=== PATIENT | female | born 1945 | race Caucasian/White ===

== ENCOUNTER → 2020-09-30 11:31 | Outpatient (BNVA) | payer OTHER, SELFPAY | PROVIDERS: PCP Internal Medicine Geriatric Medicine; Visit Provider Internal Medicine Cardiovascular Disease | DX: I63.9 Cerebral infarction, unspecified (principal); I25.10 Atherosclerotic heart disease of native coronary artery without angina pectoris | CPT/HCPCS: 99214; 93005 ==

== ENCOUNTER → 2020-10-13 07:35 | Outpatient (REF) | payer OTHER, SELFPAY ==
--- NOTE | ~2020-10-13 | NM_ITS ---
Lexiscan Myocardial perfusion study Indication: Coronary disease, abnormal EKG, assess for ischemia Technique: The patient was brought in for a Lexiscan perfusion study on 10/13/2020 and was injected 0.4 mg of Lexiscan intravenously. Within a minute of this injection 25 mCi of sestamibi was given intravenously. Images were obtained using the SPECT gamma camera interlaced with the gating device. Images were obtained in supine position. Resting perfusion study was performed on 10/14/2020. Patient was administered 25 mCi of sestamibi intravenously at rest. Images were then obtained in supine position. Total DLP 92mGy-cm. Images were processed with the software and compared side to side in short axis, horizontal long axis and vertical long axis views. Findings: Raw acquisition was reviewed. The stress perfusion study showed no significant perfusion abnormality. With CT attenuation correction, there is diminished uptake in the distal part of anterior wall, apex and adjacent part of inferior wall but this area appears normally perfused in the uncorrected acquisition and hence possibly artifactual. The gated study shows normal LV systolic function with calculated LVEF of 63%. LV cavity is normal in size. The gated study shows normal wall thickening and contraction of segments. Resting study shows no significant perfusion abnormality. CT attenuation corrected images are of poor quality and not interpretable. Gating at rest reveals normal wall motion with ejection fraction at 64%. The findings are consistent with no reversible or fixed perfusion abnormality. NM/NM darius perf SPECT rest & str Impression: 1. Myocardial perfusion imaging study shows normal myocardial perfusion. No evidence of any ischemia or infarction. 2. Gated LVEF is 65% during stress and 64% during rest. 3. Transient ischemic dilatation not present. EKG component of the test reported separately.
--- NOTE | 2020-10-13 07:40 | CA_ITS ---
Acquisition Time: 2020-10-13 07:57:23 Total Exercise Time: 00:02:00 Test Indications: Syncope Medications: ALBUTEROL ASA LEVOTHYROXINE METFORMIN OMEPRAZOLE Protocol: LEXISCAN Max HR: 110 BPM 74% of Pred: 147 BPM Max BP: 138/074 mmHG Max Work Load: 1.0 METS Pharmacological stress test using Lexiscan while sitting and kicking her feet. Pt tolerated well, denies any anginal sx. EKG with no arrhythmias, non-diagnostic for ischemia. Nuclear images to follow. Normotensive response to test. Test reviewed with Dr. Dao. Referred By: Shaquille Trivedi Overread By: Naina Madrigal NP
== END ==
LOC: HO.CARD 07:35
PROVIDERS: PCP Internal Medicine Geriatric Medicine; Visit Provider Internal Medicine Cardiovascular Disease
DX: I25.119 Atherosclerotic heart disease of native coronary artery with unspecified angina pectoris (principal)
CPT/HCPCS: 78452; 93017; A9500; J0280; J2785

== ENCOUNTER → 2020-11-04 13:33 | Outpatient (BNVA) | payer OTHER, SELFPAY | PROVIDERS: PCP Internal Medicine Geriatric Medicine; Referring Provider Internal Medicine Geriatric Medicine; Visit Provider Internal Medicine Cardiovascular Disease ==

== ENCOUNTER → 2021-02-24 14:20 | Outpatient (BNVA) | payer OTHER, SELFPAY | PROVIDERS: PCP Internal Medicine Geriatric Medicine; Referring Provider Internal Medicine Geriatric Medicine; Visit Provider Internal Medicine Cardiovascular Disease ==

== ENCOUNTER 2021-04-23 12:57 | Outpatient (REF) | payer MEDICARE, MEDICAID, SELFPAY ==
--- NOTE | ~2021-04-23 | US_ITS ---
EXAMINATION: US RETROPERITONEAL LIMITED (RENAL ONLY) CLINICAL INFORMATION: Personal history of urinary calculi. COMPARISON: None TECHNIQUE: Real-time imaging of the kidneys. FINDINGS: RIGHT KIDNEY: 11.6 x 4.2 x 5.5 cm (SAG x AP x TRV). The kidney is normal in size, contour, and echogenicity. Renal cortical thickness is normal. No calculi or focal parenchymal lesions. No hydronephrosis. LEFT KIDNEY: 9.1 x 5.1 x 4.5 cm (SAG x AP x TRV). The kidney is normal in size, contour, and echogenicity. Renal cortical thickness is within normal limits. 6 mm nonobstructing mid pole calculus. No hydronephrosis. US/US renal BI IMPRESSION: 6 mm nonobstructing left renal calculus without hydronephrosis. No right-sided renal calculi.
== END 2021-04-23 12:58 | disposition home or self-care (01) ==
LOC: HO.HMGCX 12:57
PROVIDERS: PCP Internal Medicine Geriatric Medicine; Visit Provider Internal Medicine Geriatric Medicine
DX: M54.50 Low back pain, unspecified (principal); Z87.442 Personal history of urinary calculi
CPT/HCPCS: 76775

== ENCOUNTER → 2021-09-06 09:24 | Outpatient (REF) | payer MEDICARE, MEDICAID, SELFPAY ==
--- NOTE | 2021-09-06 09:32 | CA_ITS ---
Transthoracic Echocardiogram Patient (Last, First, Middle): Celeste Abad, Gender: Female Date of : 1945 Age: 75 Procedure Date: 09/06/2021 Procedure Type: Transthoracic Echocardiogram Location: OP Height: 160.02 cm Weight: 76.2 kg BSA: 1.80 m2 Heart Rate: bpm BP: 135 / 80 mmHg Car Lot Attendant: VH/OT Referring MD: Mauricio Stockton MD Symptoms: CVA Study Quality: Fair ECG Rhythm: Sinus Conclusions: - The left ventricular systolic function is normal. The visually estimated ejection fraction is between 55-60%. - There is mild mitral valve regurgitation. Findings Left Ventricle Normal left ventricular cavity size. There is normal left ventricular wall thickness. The left ventricular systolic function is normal. The visually estimated ejection fraction is between 55-60%. There is no evidence of regional wall motion abnormalities. Diastolic function is normal for age. Right Ventricle Normal right ventricular cavity size and systolic function. Atria Both atria are normal in size. Aortic Valve There is a normal trileaflet aortic valve. There is no aortic valve stenosis. There is no aortic valve regurgitation. Mitral Valve There is mild anterior mitral leaflet thickening. There is mild mitral annular calcification. There is mild mitral valve regurgitation. There is no mitral valve stenosis. Pulmonic Valve The pulmonic valve is likely normal. Tricuspid Valve There is trace tricuspid valve regurgitation. The pulmonary artery systolic pressure is normal. Great Vessels The aortic annulus, sinuses of valsalva, and asc aorta are normal in size. Venous The inferior vena cava is normal in size and collapses greater than 50% with inspiration. Pericardium/Pleural There is no evidence of pericardial effusion. Prior Study Comparison No prior study available for comparison. Recommendations, Care & Conclusions No obvious valvular pathology seen on this study. Measurements 2D Linear Measurements IVSd: 0.95 0.6-0.9/0.6-1.0 cm LVIDd: 3.93 3.9-5.3/4.2-5.9 cm LVIDd Index: 2.18 2.4-3.2/2.2-3.1 cm/m2 LVIDs: 2.78 2.0-3.6 cm LVPWd: 0.85 0.7-1.1 cm LA Diam: 3.00 2.7-3.8/3.0-4.0 cm LAIDs Index: 1.67 1.5-2.3 cm/m2 LV Mass: 132.63 67-162/88-224 g LV Mass Index: 73.69 43-95/49-115 g/m2 LVOT Diam: 1.90 3.0+(-)1.3 cm Mitral Valve MV Pk E: 0.82 MV PK A: 1.17 MV Decel Time: 213.00 E/A: 0.70 E'Lateral: 8.16 E'Medial: 5.11 E/E' Med: 16.10 E/E' Lat: 10.10 PHT: 62.00 MVA PHT: 3.55 Decel Haakon: 3.86 Aortic Valve AoV Pk Thomas: 1.40 AoV Mn Thomas: 0.90 AoV VTI: 0.30 AoV Pk Grad: 8.00 Aov Mn Grad: 4.00 GIOVANNI Cont.VTI: 1.92 LVOT LVOT Pk Thomas: 0.97 LVOT Mn Thomas: 0.62 LVOT VTI: 0.20 LVOT Pk Grad: 4.00 LVOT Mn Grad: 2.00 LVOT Diam: 1.90 LVOT Area: 2.84 Diastolic Function MV Pk E: 0.82 MV Pk A: 1.17 E/A: 0.70 E'Medial: 5.11 E/E' Med: 16.10 E' Laterial: 8.16 E/E' Lat: 10.10 Tricuspid Valve TR Pk Thomas: 2.22 TR Pk Grad: 20.00 RA Press: 3.00 RVSP: 23.00 Great Vessels Aorta Ao Annulus: 3.04 1.4-2.6 cm Ao Asc: 2.90 2.1-3.4 cm Pulmonary Valve PV Pk Thomas: 0.80 Peak PV Grad: 3.00 Updated in Other Vendor System with Status of Final Butch Patel MD electronically signed on 09/06/2021 12:21:39 PM with status of Final
--- NOTE | 2021-09-06 09:33 | HM_ITS ---
REQUESTING PROVIDER: Dr. Mauricio Mai REASON FOR TEST: Cerebral infarction. INTERPRETATION: Patient was hooked up to cardiac event monitor from 09/06/2021, to 10/06/2021, for a total period of 30 days. FINDINGS: Baseline rhythm was normal sinus rhythm with a heart rate ranging from 65 beats per minute to 111 beats per minute. Rare isolated PVCs were noted. No episodes of atrial fibrillation were noted. The patient did not report any symptoms. CONCLUSION: Cardiac event monitor is remarkable for: 1. Baseline normal sinus rhythm with rare PVCs. 2. No episodes of atrial fibrillation. 3. No patient reported events. Niles Dao MD NRS/MODL / [phone]
== END ==
LOC: HO.CARD 09:24
PROVIDERS: PCP Internal Medicine Geriatric Medicine; Visit Provider Internal Medicine
DX: I63.9 Cerebral infarction, unspecified (principal)
CPT/HCPCS: 93270; 93306

== ENCOUNTER → 2021-09-09 12:45 | Outpatient (BNVA) | payer MEDICARE, MEDICAID, SELFPAY | PROVIDERS: PCP Internal Medicine Geriatric Medicine; Referring Provider Internal Medicine Geriatric Medicine; Visit Provider Internal Medicine Cardiovascular Disease | DX: I25.10 Atherosclerotic heart disease of native coronary artery without angina pectoris (principal); I10 Essential (primary) hypertension | CPT/HCPCS: 93005; 99212 ==

== ENCOUNTER 2022-02-24 12:15 | Outpatient (REF) | payer MEDICARE, MEDICAID, SELFPAY ==
--- NOTE | ~2022-02-24 | XR_ITS ---
EXAMINATION: XR HIP, LEFT CLINICAL INFORMATION: Pain left hip. COMPARISON: Radiographs left hip 11/14/2017 TECHNIQUE: AP and frog-lateral projections of the left hip. FINDINGS: No fracture, dislocation, or destructive process. No interval hip joint narrowing or erosive change or chondrocalcinosis. There is a pessary ring overlying the lower pubis. XR/XR hip LT min 2V IMPRESSION: Unremarkable left hip.
--- NOTE | ~2022-02-24 | XR_ITS ---
EXAMINATION: XR RIBS, BILATERAL CLINICAL INFORMATION: Pleurodynia, pain throughout chest/ribs, radiating lower. COMPARISON: None TECHNIQUE: Frontal view chest and 3 views of the ribs are obtained for a total of 4 views. FINDINGS: There is no visible rib fracture or rib destructive process. There is no pneumothorax or pleural reaction. No airspace consolidation or effusion. Some fine linear scarring is again noted at both bases. The heart is normal in size. The costophrenic sulci are clear. There is a retrocardiac hiatal hernia, approximately 7 cm in size. The hilar contours are unremarkable. No free air beneath the diaphragms. Surgical clips right upper quadrant abdomen likely from prior cholecystectomy. XR/XR ribs BI min 4V w CXR1V IMPRESSION: -No visible rib fracture or rib destructive process. -No acute intrathoracic disease. No infiltrate or effusion. -Hiatal hernia.
== END 2022-02-24 12:16 | disposition home or self-care (01) ==
LOC: HO.XRAY 12:15
PROVIDERS: PCP Internal Medicine Geriatric Medicine; Visit Provider Internal Medicine Geriatric Medicine
DX: M25.552 Pain in left hip (principal); R07.81 Pleurodynia
CPT/HCPCS: 71111; 73502

== ENCOUNTER → 2022-03-16 13:18 | Outpatient (BNVA) | payer MEDICARE, MEDICAID, SELFPAY | PROVIDERS: PCP Internal Medicine Geriatric Medicine; Referring Provider Internal Medicine Geriatric Medicine; Visit Provider Internal Medicine Cardiovascular Disease | DX: I25.10 Atherosclerotic heart disease of native coronary artery without angina pectoris (principal); I10 Essential (primary) hypertension | CPT/HCPCS: 93005; 99212 ==

== ENCOUNTER → 2022-03-23 09:12 | Outpatient (REF) | payer MEDICARE, MEDICAID, SELFPAY ==
--- NOTE | ~2022-03-23 | NM_ITS ---
Lexiscan Myocardial perfusion study Indication: Chest pain, assess for coronary disease and ischemia Technique: The patient was brought in for a Lexiscan perfusion study on 03/22/2022 and was injected 0.4 mg of Lexiscan intravenously. Within a minute of this injection 25 mCi of sestamibi was given intravenously. Images were obtained using the SPECT gamma camera interlaced with the gating device. Images were obtained in supine position. Resting perfusion study was performed on 03/24/2022. Patient was administered 25 mCi of sestamibi intravenously at rest. Images were then obtained in supine position. Total DLP 89mGy-cm. Images were processed with the software and compared side to side in short axis, horizontal long axis and vertical long axis views. Findings: Raw acquisition reviewed. There is adjacent subdiaphragmatic tracer uptake near the inferior wall The stress perfusion study showed diminished tracer uptake in the basal to mid inferior septum and adjacent inferior wall. No significant change with CT attenuation correction. The gated study shows normal LV systolic function with calculated LVEF of >70%. LV cavity is normal in size. The gated study shows normal wall thickening and contraction of segments. Resting study shows diminished tracer uptake in the basal to mid septum. Slight improvement compared to stress acquisition. With CT attenuation correction, inferior wall assessment is slightly suboptimal. Gating at rest reveals normal wall motion with ejection fraction at 71%. The findings are consistent with mild reversible perfusion defect in the basal to mid inferior wall. In the inferoseptal portion appears more fixed. NM/NM darius perf SPECT rest & str Impression: 1. Myocardial perfusion imaging study shows fixed defect in the basal to mid inferior septum that could indicate prior infarct. Basal to mid inferior wall with some reversibility and could indicate ischemia. Unable to exclude diaphragmatic etiology due to image quality. 2. Gated LVEF is > 70% during stress and rest. 3. Transient ischemic dilatation not present. EKG component of the test reported separately.
--- NOTE | 2022-03-23 09:19 | CA_ITS ---
Acquisition Time: 2022-03-23 09:56:39 Total Exercise Time: 00:02:00 Test Indications: Chest Pain, SOB Medications: Protocol: LEXISCAN Max HR: 100 BPM 68% of Pred: 145 BPM Max BP: 118/062 mmHG Max Work Load: 1.0 METS Pharmacological stress test with Lexiscan injection, while sitting and kicking her legs, without anginal symptoms, without arrythmia, with normotensive response to injection, with nondiagnostic EKG for ischemia. In recovery, she was treated with Aminophylline 75mg IVP to reverse Lexiscan. Nuclear images pending. test reviewed with Dr Dao Referred By: Shaquille Trivedi Overread By: GYPSY MARSH
== END ==
LOC: HO.CARD 09:12
PROVIDERS: Visit Provider Internal Medicine Cardiovascular Disease
DX: I25.10 Atherosclerotic heart disease of native coronary artery without angina pectoris (principal)
CPT/HCPCS: 78452; 93017; A9500; J0280; J2785

== ENCOUNTER 2022-04-04 09:36 | Outpatient (REF) | payer MEDICARE, MEDICAID, SELFPAY ==
[2022-04-04 10:12] LABS: Hematocrit 41.9 % (37.0-47.0); Hemoglobin 13.9 g/dl (12.0-16.0); Mean Corpuscular HGB Conc 33.2 g/dl (31.0-35.0); Mean Corpuscular Hemoglobin 29.6 pg (27.0-33.0); Mean Corpuscular Volume 89.3 fL (80.0-98.0); Mean Platelet Volume 10.6 fL (9.4-12.3); Platelet Count 306 X10*3/uL (160-400); Red Blood Count 4.69 X10*6/uL (4.20-5.50); Red Cell Distribution Width 15.4 % (11.0-16.0); White Blood Count 7.8 X10*3/uL (4.8-10.8)
[2022-04-04 10:13] LABS: Prothrombin Time 10.9 SEC (10.0-13.1)
[2022-04-04 10:36] LABS: Anion Gap 17 (12-20); Blood Urea Nitrogen 20 mg/dL (9-16); Calcium 9.7 mg/dL (8.4-10.2); Carbon Dioxide 23 mmol/L (22-29); Chloride 104 mmol/L (96-108); Estimated Glomerular Filt Rate > 60; Glucose Random 116 mg/dL (60-115); Potassium 4.5 mmol/L (3.3-5.1); Sodium 139 mmol/L (135-145)
== END 2022-04-04 09:37 | disposition home or self-care (01) ==
LOC: HO.LAB 09:36
PROVIDERS: PCP Internal Medicine Geriatric Medicine; Visit Provider Internal Medicine Cardiovascular Disease
DX: R94.39 Abnormal result of other cardiovascular function study (principal)
CPT/HCPCS: 36415; 80048; 85027; 85610

== ENCOUNTER 2022-05-04 14:53 | Outpatient (REF) | payer MEDICARE, MEDICAID, SELFPAY ==
[2022-05-04 15:47] LABS: Hemoglobin 14.8 g/dl (12.0-16.0); Mean Corpuscular HGB Conc 33.6 g/dl (31.0-35.0); Mean Corpuscular Hemoglobin 30.3 pg (27.0-33.0); Mean Platelet Volume 10.4 fL (9.4-12.3); Platelet Count 350 X10*3/uL (160-400); Red Blood Count 4.89 X10*6/uL (4.20-5.50); Red Cell Distribution Width 14.7 % (11.0-16.0); White Blood Count 10.7 X10*3/uL (4.8-10.8)
[2022-05-04 16:12] LABS: Anion Gap 17 (12-20); Blood Urea Nitrogen 16 mg/dL (9-16); Calcium 10.2 mg/dL (8.4-10.2); Carbon Dioxide 23 mmol/L (22-29); Chloride 105 mmol/L (96-108); Estimated Glomerular Filt Rate > 60; Glucose Random 104 mg/dL (60-115); Potassium 4.5 mmol/L (3.3-5.1); Sodium 140 mmol/L (135-145)
== END 2022-05-04 14:54 | disposition home or self-care (01) ==
LOC: HO.LAB 14:53
PROVIDERS: PCP Internal Medicine Geriatric Medicine; Visit Provider Internal Medicine Cardiovascular Disease
DX: R07.9 Chest pain, unspecified (principal); R94.39 Abnormal result of other cardiovascular function study; I10 Essential (primary) hypertension
CPT/HCPCS: 36415; 80048; 85027; 85610; 99212

== ENCOUNTER → 2022-06-16 13:13 | Outpatient (BNVA) | payer MEDICARE, MEDICAID, SELFPAY | PROVIDERS: PCP Internal Medicine Geriatric Medicine; Referring Provider Internal Medicine Geriatric Medicine; Visit Provider Nurse Practitioner Family | DX: I25.10 Atherosclerotic heart disease of native coronary artery without angina pectoris (principal); I10 Essential (primary) hypertension; Z98.890 Other specified postprocedural states | CPT/HCPCS: 99212 ==

== ENCOUNTER → 2022-09-07 12:30 | Outpatient (BNVA) | payer MEDICARE, MEDICAID, SELFPAY | PROVIDERS: PCP Internal Medicine Geriatric Medicine; Visit Provider Internal Medicine Cardiovascular Disease | DX: I20.8 Other forms of angina pectoris (principal); I10 Essential (primary) hypertension | CPT/HCPCS: 99212 ==

== ENCOUNTER 2022-09-29 12:37 | Outpatient (REF) | payer MEDICARE, MEDICAID, SELFPAY ==
--- NOTE | ~2022-09-29 | MM_ITS ---
EXAMINATION: BONE DENSITOMETRY CLINICAL INDICATION: Menopausal osteoporosis. COMPARISON: None (current study represents initial baseline exam). TECHNIQUE: Using a [employer] DXA System (software version: 13.1) manufactured by [employer], dual-energy x-ray absorptiometry was performed of the lumbar spine and left hip. The images are of good technical quality. Summary results are attached. FINDINGS: AP SPINE L1-L4: BMD 0.785 g/cm2, Z-score -1.4, T-score -3.3, osteoporosis. LEFT FEMUR, NECK: BMD 0.573 g/cm2, Z-score -1.3, T-score -3.3, osteoporosis. LEFT FEMUR, TOTAL: BMD 0.639 g/cm2, Z-score -1.1, T-score -2.9, osteoporosis. IDENTIFIED RISK FACTORS: Early menopause, anticonvulsant, height loss, history of fracture (adult), osteoporosis, recurrent falls, secondary osteoporosis. HISTORY OF FRACTURE: Shoulder. MEDICATIONS: Calcium, vitamin D. MM/XR DEXA axial skeleton IMPRESSION: 1. DIAGNOSIS: Osteoporosis based on the lowest T-score value of -3.3 in the lumbar spine and femoral neck applying World Health Organization criteria. 2. 10-YEAR FRACTURE RISK PREDICTION, FRAX: According to the guidelines, FRAX calculation should only be performed on patients in the osteopenia bone density category. Therefore, FRAX was not performed on this patient. 3. Treatment Recommendations: NOF guidelines recommend consideration for treatment in postmenopausal women and men age 50 and older presenting with the following: -A hip or vertebral (clinical or morphometric) fracture. -T-score less than or equal to -2.5 at the femoral neck or spine after appropriate evaluation to exclude secondary causes. -Low bone mass at the hip or spine and a 10-year fracture probability by FRAX of greater than or equal to 3% for hip fracture or greater than or equal to 20% for major osteoporotic fracture based on the [place] adapted WHO algorithm. 4. Other Recommendations: All treatment decisions require clinical judgment and consideration of individual patient factors, including patient preferences, comorbidities, previous drug use, risk factors not captured in the FRAX model (e.g. frailty, falls, vitamin D deficiency, increased bone turnover, interval significant decline in bone density) and possible under or overestimation of fracture risk by FRAX. Additional medical evaluation for secondary cause of low bone mineral density may be appropriate. FUTURE SCAN RECOMMENDATION: People with diagnosed cases of osteoporosis or at high risk for fracture should have regular bone mineral density tests. For patients eligible for Medicare, routine testing is allowed once every 2 years. The testing frequency can be increased to one year for patients who have rapidly progressing disease, those who are receiving or discontinuing medical therapy to restore bone mass, or have additional risk factors.
== END 2022-09-29 12:38 | disposition home or self-care (01) ==
LOC: HO.MAMMO 12:37
PROVIDERS: Visit Provider Internal Medicine Geriatric Medicine
DX: M81.0 Age-related osteoporosis without current pathological fracture (principal); N95.1 Menopausal and female climacteric states
CPT/HCPCS: 77080

== ENCOUNTER 2022-10-27 13:00 | Outpatient (REF) | payer MEDICARE, MEDICAID, SELFPAY ==
--- NOTE | ~2022-10-27 | MR_ITS ---
EXAMINATION: MR BRAIN WITHOUT CONTRAST CLINICAL INFORMATION: Numbness, seizure. Rule out new CVA. COMPARISON: Head CT 03/18/2017. TECHNIQUE: Multiplanar, multisequence imaging of the brain was performed without intravenous contrast. FINDINGS: There is no intracranial hemorrhage, acute infarction, mass effect, or extra-axial collection. There is chronic cortical and subcortical infarction within the right frontal lobe extending into the insula and gangliocapsular structures with additional infarct is also seen in the left frontal and parietal lobe as well as significant lacunar infarcts within the bilateral left more than right cerebellar hemispheres. Chronic lacunar infarcts are seen throughout the basal ganglia and thalami bilaterally. Moderate patchy and partly confluent T2/FLAIR hyperintensity is seen within the cerebral white matter, typical of chronic microangiopathy. There is moderate degree of diffuse brain parenchymal volume loss with commensurate prominence of ventricles and sulci. The hippocampi appear fairly symmetric. The left vertebral artery flow void appears patent. The remaining major intracranial arterial flow voids are patent. Right vertebral artery flow void is not seen which could be related to hypoplasia. There are bilateral lens replacements. The extracranial structures are within normal limits. MR/MR head/brain wo con IMPRESSION: 1. No acute infarct, mass lesion, intracranial hemorrhage, or evidence of hydrocephalus. 2. Chronic infarcts in the right frontal lobe, left frontal and parietal lobes, and bilateral cerebellar hemispheres. Chronic lacunar infarcts seen in the basal ganglia and thalami. Background changes of moderate chronic microangiopathy and diffuse brain parenchymal volume loss.
== END 2022-10-27 13:01 | disposition home or self-care (01) ==
LOC: HO.MRI 13:00
PROVIDERS: PCP Internal Medicine Geriatric Medicine; Visit Provider Psychiatry & Neurology Neurology
DX: R56.9 Unspecified convulsions (principal); R20.2 Paresthesia of skin
CPT/HCPCS: 70551

== ENCOUNTER 2022-11-19 08:20 | Inpatient (IN) | payer OTHER, MEDICAID, SELFPAY ==
[2022-11-19] VITALS (15 sets, daily range): BP systolic 106–139; BP diastolic 45–65; PULSE 82–101; RESP 16–20; TEMP 36.6–37.6; O2SAT 92–98; BMI 25.0
--- NOTE | ~2022-11-19 | US_ITS ---
EXAMINATION: Ultrasound abdomen Doppler for mesenteric arteries. CLINICAL INFORMATION: Mesenteric ischemia, postprandial abdominal pain. COMPARISON: CT abdomen and pelvis 11/19/2022. TECHNIQUE: Doppler evaluation with color and spectral analysis performed of the visceral arteries. FINDINGS: Aorta: Proximal to SMA: 88 cm/s. Distal to SMA: 98 cm/s. Celiac artery: Supine: Inspiration: Not visible. Expiration: Not visible. Erect: Inspiration: 75 cm/s. Expiration: 106 cm/s. Superior mesenteric artery: Proximal: 278 cm/s. Mid: 168 cm/s. Distal: 125 cm/s. Inferior mesenteric artery: 239 cm/s. Splenic artery: Not visible. Hepatic artery: Not is visible. US/US SMA IMPRESSION: Exam limited by bowel gas. Elevated velocities in the superior mesenteric and inferior mesenteric arteries are nonspecific. By velocity arterial, these are consistent with hemodynamically significant stenoses. However, on the CT from 11/19/2022, mild atherosclerosis is seen involving the celiac, superior mesenteric, and inferior mesenteric arteries, but there is no evidence of hemodynamically significant stenosis.
--- NOTE | ~2022-11-19 | CT_ITS ---
EXAMINATION: CT ABDOMEN AND PELVIS WITH CONTRAST CLINICAL INFORMATION: Gastrointestinal bleed. Evaluate for any masses. COMPARISON: Renal ultrasound from 04/23/2021. TECHNIQUE: Multidetector volumetric images were obtained from the superior aspect of the liver through the pubic symphysis following administration 85 mL of Omnipaque 350 intravenous contrast. Sagittal and coronal reformatted images were obtained on the technologist's workstation. Oral contrast: No This CT examination was performed using dose optimization techniques as appropriate, variously including the following: *Automated exposure control *Adjustment of mA and/or kV according to patient size (this includes techniques or standardized protocols for targeted exams where dose is matched to indication/reason for exam; i.e. extremities or head) *Use of iterative reconstruction technique DLP: 432 mGy-cm FINDINGS: LUNG BASES: Scattered cystic lucencies in the visualized bases are consistent with changes of centrilobular emphysema. Scattered opacities of mild atelectasis in lower lobes. No pleural effusion. LIVER: The liver has normal size, shape, and attenuation. No evidence of liver mass. GALLBLADDER AND BILIARY TREE: Gallbladder is surgically absent. Common bile duct measures up to 0.9 cm diameter and there are no stones within the mildly dilated duct. The ductal dilatation is probably chronic. PANCREAS: Mildly atrophied. No edema, pancreatic ductal dilatation or mass. SPLEEN: Normal. ADRENAL GLANDS: Normal. KIDNEYS AND URETERS: Kidneys have lobulated contour, left more so than right, and findings include chronic atrophy of cortex of the posterior left upper pole. Also, there are somewhat wedge-shaped areas of chronic focal cortical atrophy of posterior aspect of the mid and upper pole of the right kidney. Punctate calyceal stone is present in the posterior left upper pole. 0.4 cm calyceal stone is present in the posterior left interpolar region. The ureters are unremarkable. No ureteral stones or hydroureteronephrosis. BLADDER: Normal. No calculi or wall thickening. BOWEL AND PERITONEUM: Large hiatal hernia. No dilated bowel loops. No focal bowel wall thickening. No masses are seen along the gastrointestinal tract. Multiple diverticula of the descending and sigmoid colon without evidence of diverticulitis. The rectum is unremarkable. There are no inflammatory changes in the perirectal or perianal soft tissues. ABDOMINAL WALL: No abdominal wall hernia, mass or fluid collection. VASCULATURE: Atherosclerosis of the abdominal aorta and iliac arteries without aneurysm. Inferior vena cava is normal. LYMPH NODES: No pathologic sized lymph nodes in the abdomen or pelvis. No inguinal lymphadenopathy. PELVIC VISCERA: Vaginal pessary in place. Uterus is unremarkable. No adnexal mass. No pelvic free fluid. MUSCULOSKELETAL: No acute or suspicious osseous abnormality. CT/CT abdomen pelvis w IV con IMPRESSION: * No specific source of gastrointestinal bleeding is identified. Diverticula of the descending and sigmoid colon without evidence of diverticulitis. * No evidence of abdominal or pelvic mass. No lymphadenopathy. * Common bile duct is mildly dilated, status post cholecystectomy. * Small stones of the left kidney. No hydronephrosis. There are regions of chronic cortical atrophy of each kidney, possibly sequela of remote pyelonephritis. No acute renal abnormality.
--- NOTE | 2022-11-19 09:00 | ED.GENADULT ---
HPI - General Adult General Chief complaint: Recheck/Abnormal Lab/Rx Stated complaint: sent by doctor, need blood transfusion Time Seen by Provider: 11/19/22 08:38 Source: patient and family Mode of arrival: ambulatory Limitations: no limitations History of Present Illness HPI narrative: 77-year-old female came in from home for generalized weakness, patient been having nonbloody watery diarrhea for the past 2 weeks, no abdominal pain, no nausea,no vomiting,no fever, no chills. Patient had a routine blood workup done by her PCP and was called today to come to the ED for blood transfusion because her hemoglobin is very low. No CP, no SOB, no exertional dyspnea. Related Data Home Medications Medication Instructions Recorded Confirmed albuterol sulfate 90 mcg/actuation inhalation 09/30/20 09/07/22 aerosol inhaler aspirin 81 mg tablet,delayed 81 mg PO DAILY 09/30/20 09/07/22 release (Adult Low Dose Aspirin) latanoprost 0.005 % eye drops 1 drp ophthalmic (eye) QPM 09/30/20 09/07/22 omeprazole 20 mg capsule,delayed 20 mg PO BID 09/30/20 09/07/22 release oxycodone-acetaminophen 5 mg-325 0.5 tab PO Q6H PRN 09/30/20 09/07/22 mg tablet acetaminophen 650 mg 1,300 mg PO Q12H 02/24/21 09/07/22 tablet,extended release (Tylenol 8 Hour) cholecalciferol (vitamin D3) 50 50 mcg PO DAILY 02/24/21 09/07/22 mcg (2,000 unit) capsule magnesium 250 mg tablet 250 mg PO DAILY 02/24/21 09/07/22 milk thistle 500 mg capsule 500 mg PO BID 02/24/21 09/07/22 zinc 50 mg tablet 50 mg PO DAILY 02/24/21 09/07/22 cyanocobalamin (vitamin B-12) 1,000 mcg PO DAILY 03/16/22 09/07/22 1,000 mcg tablet ferrous sulfate 325 mg (65 mg 325 mg PO DAILY 03/16/22 09/07/22 iron) tablet iodine (kelp) tab PO DAILY 03/16/22 09/07/22 levothyroxine 112 mcg tablet 112 mcg PO DAILY 03/16/22 09/07/22 metformin 500 mg tablet 500 mg PO DAILY 03/16/22 09/07/22 biotin 5 mg capsule 5 mg PO DAILY 05/04/22 09/07/22 levetiracetam 500 mg tablet 500 mg PO BID 05/04/22 09/07/22 melatonin 10 mg capsule 10 mg PO BEDTIME PRN 05/04/22 09/07/22 ticagrelor 90 mg tablet (Brilinta) 90 mg PO BID 05/04/22 09/07/22 atorvastatin 40 mg tablet 40 mg PO DAILY 06/16/22 09/07/22 mirabegron 50 mg tablet,extended 50 mg PO DAILY 06/16/22 09/07/22 release 24 hr (Myrbetriq) famotidine 40 mg tablet 40 mg PO BID 09/07/22 09/07/22 Previous Rx's Medication Instructions Recorded amlodipine 2.5 mg tablet 2.5 mg PO DAILY 90 days #90 tabs 09/02/22 Allergies Allergy/AdvReac Type Severity Reaction Status Date / Time atorvastatin [From LIPITOR] Allergy Unknown STOMACH Verified 11/19/22 08:24 ISSUES Review of Systems Review of Systems: All other systems are reviewed and are negative Constitutional: Reports as per HPI and Reports no additional constitutional complaints Eyes: Reports as per HPI and Reports no additional eye complaints Reports system reviewed and no additional complaints, except as documented Cardiovascular: Reports as per HPI and Reports no additional cardiovascular complaints Respiratory: Reports as per HPI and Reports no additional respiratory complaints Gastrointestinal: Reports as per HPI and Reports no additional gastrointestinal complaints Genitourinary: Reports no additional female genitourinary complaints Musculoskeletal: Reports no additional musculoskeletal complaints Skin/Breast: Reports system reviewed and no additional complaints, except as docu Psychiatric: Reports no additional psychiatric complaints Endocrine: Reports no additional endocrine complaints Hematologic/Lymphatic: Reports no additional hematologic/lymphatic complaints Allergic/Immunologic: Reports no additional allergic/immunologic complaints Reports system reviewed and no additional complaints, except as documented and Reports Abnormal speech present [facility] Past Medical History Surgical History History of adenoidectomy History of appendectomy History of cardiac cath History of section History of cholecystectomy Hx of hernia repair Hx of tonsillectomy Family History Family History Mother Cancer Father Heart attack Social History Social History Alcohol intake: never Patient Tobacco Use Status: Former Tobacco user Quit Date: 2003 Years Smoked: 30 +/- Advance Directives: No Physical Exam ED Vital Signs: Vital Signs - 24 hr 11/19/22 08:24 11/19/22 08:53 Temperature 98.2 F 98.1 F Pulse Rate 97 92 Respiratory Rate 18 18 Blood Pressure 127/54 L 130/65 Pulse Oximetry 97 92 Oxygen Delivery Method Room Air Room Air BMI result Body Mass Index 25.0 Vital signs have been reviewed as appeared to be correct. Blood pressure normal. Heart rate normal. Respiration rate normal. Temperature normal. Oxygen saturation normal. Appearance: Alert. Oriented X3. No acute distress. Head: Normal external exam. Normocephalic. Atraumatic. No Ash signs noted. No raccoon eyes noted Eyes: PERRLA. EOMI. Conjunctiva and sclera normal. Eyelids normal. ENT: TM's Normal. Pharynx normal. Uvula midline. Moist mucous membranes. No trismus noted. No drooling noted. No muffled voice noted. Neck: Normal inspection. Neck supple. FROM. No adenopathy. Thyroid Normal. No meningeal signs. No neck mass noted. CVS: Normal heart rate and rhythm. Heart sound normal. No murmurs noted. Pulses normal throughout. Respiratory: No respiratory distress. Painless inspiration. Breath sounds normal. No wheezes/rales/rhonchi noted. Chest nontender. No accessory muscle usage noted or decreased air movement noted. Abdomen: Soft and nontender. Bowel sounds normal in all 4 quadrants. No distention noted. No organomegaly noted. No visible injury noted. Back: No CVA tenderness. Full range of motion noted. Skin: Skin warm and dry. Normal skin color. Normal skin turgor. No rashes/lesions/lacerations noted. Extremities: No lower extremity edema. Extremities exhibit normal range of motion. Extremities nontender. Neuro: Oriented X 3. Cranial nerve exam: II-XII are grossly intact No motor deficit. No sensory deficit. Reflexes normal. Course Course Course Narrative: 77-year-old female came in with exertional dyspnea found to be anemic with GI bleeding will transfuse 2 units of blood and admit. UTI with sirs no septic shock are severe sepsis. Medications Administered Discontinued Medications Generic Name Dose Route Start Last Admin Trade Name Freq PRN Reason Stop Dose Admin Sodium Chloride 1,000 mls @ 999 mls/hr 11/19/22 08:58 11/19/22 11:03 Ns IV 11/19/22 09:58 Infused .Q1H1M ONE Infusion Medical Decision Making Differential Diagnosis Differential Diagnoses: The differential diagnosis associated with the presentation includes (Severe anemia, electrolyte abnormalities, UTI, sepsis) Admission/Observation Consideration of admission/observation: Escalation of care including admission/observation considered Consult Healthcare Provider Management of the patient was discussed with: Hospitalist Lab Data [facility] Lab Attestation statement: I reviewed the patient's lab results. 11/19/22 09:20 11/19/22 09:20 Labs: Lab Results 11/19/22 11/19/22 11/19/22 Range/Units 09:14 09:20 09:20 WBC 13.9 H (4.8-10.8) X10*3/uL RBC 3.39 L D (4.20-5.50) X10*6/uL Hgb 7.2 L D (12.0-16.0) g/dl Hct 24.6 L D (37.0-47.0) % MCV 72.6 L (80.0-98.0) fL MCH 21.2 L (27.0-33.0) pg MCHC 29.3 L (31.0-35.0) g/dl RDW 16.9 H (11.0-16.0) % Plt Count 418 H (160-400) X10*3/uL MPV 9.1 L (9.4-12.3) fL Immature Gran % (Auto) 0.4 (0.0-0.4) % Neut % (Auto) 83.3 H (45-73) % Lymph % (Auto) 8.9 L (20-40) % [place] % (Auto) 6.4 (2-11) % Eos % (Auto) 0.6 (0-4) % Baso % (Auto) 0.4 (0-2) % Lymph # (Auto) 1.2 (1.2-4.9) X10*3/uL [place] # (Auto) 0.9 (0.1-1.2) X10*3/uL Eos # (Auto) 0.1 (0.0-0.4) X10*3/uL Baso # (Auto) 0.1 (0.0-0.2) X10*3/uL Abs Immat Gran (auto) 0.05 H (0.00-0.03) X10*3/uL Absolute Neuts (auto) 11.6 H (2.0-8.3) x10*3/uL Absolute Nucleated RBC 0.000 (0.0-0.012) X10*3/uL Nucleated RBC % (auto) 0.0 (0.0-0.2) /100WBC Sodium 144 (135-145) mmol/L Potassium 4.0 (3.3-5.1) mmol/L Chloride 108 (96-108) mmol/L Carbon Dioxide 25 (22-29) mmol/L Anion Gap 15 (12-20) BUN 21 H (9-16) mg/dL Creatinine 0.76 (0.5-1.4) mg/dL Estim Creat Clear Calc 52.4 Estimated GFR > 60 Random Glucose 133 H (60-115) mg/dL Calcium 9.2 D (8.4-10.2) mg/dL Total Bilirubin 0.4 (0.0-1.0) mg/dL Direct Bilirubin 0.1 (0.0-0.5) mg/dL AST 16 (5-31) U/L ALT 15 (0-31) U/L Alkaline Phosphatase 117 (39-117) U/L Troponin I High Sens (<3.5-17.0) ng/L Total Protein 6.9 (6.5-8.0) g/dL Albumin 3.9 (3.5-5.0) g/dL Lipase 13 (8-78) U/L Urine Color Urine Appearance Urine pH (5.0-9.0) Ur Specific [place] (1.005-1.025) Urine Protein (Neg-Trace) mg/dL Urine Glucose (UA) (Negative) mg/dL Urine Ketones (Negative) mg/dL Urine Blood (Negative) Urine Nitrite (Negative) Ur Leukocyte Esterase (Negative) Urine RBC (0-2) /HPF Urine WBC (0-5) /HPF Ur Squamous Epith Cells (0-2) /HPF Urine Bacteria (None Seen) Hyaline Casts (0-2) /LPF Stool Occult Blood POSITIVE (NEGATIVE) 11/19/22 11/19/22 Range/Units 09:21 10:26 WBC (4.8-10.8) X10*3/uL RBC (4.20-5.50) X10*6/uL Hgb (12.0-16.0) g/dl Hct (37.0-47.0) % MCV (80.0-98.0) fL MCH (27.0-33.0) pg MCHC (31.0-35.0) g/dl RDW (11.0-16.0) % Plt Count (160-400) X10*3/uL MPV (9.4-12.3) fL Immature Gran % (Auto) (0.0-0.4) % Neut % (Auto) (45-73) % Lymph % (Auto) (20-40) % [place] % (Auto) (2-11) % Eos % (Auto) (0-4) % Baso % (Auto) (0-2) % Lymph # (Auto) (1.2-4.9) X10*3/uL [place] # (Auto) (0.1-1.2) X10*3/uL Eos # (Auto) (0.0-0.4) X10*3/uL Baso # (Auto) (0.0-0.2) X10*3/uL Abs Immat Gran (auto) (0.00-0.03) X10*3/uL Absolute Neuts (auto) (2.0-8.3) x10*3/uL Absolute Nucleated RBC (0.0-0.012) X10*3/uL Nucleated RBC % (auto) (0.0-0.2) /100WBC Sodium (135-145) mmol/L Potassium (3.3-5.1) mmol/L Chloride (96-108) mmol/L Carbon Dioxide (22-29) mmol/L Anion Gap (12-20) BUN (9-16) mg/dL Creatinine (0.5-1.4) mg/dL Estim Creat Clear Calc Estimated GFR Random Glucose (60-115) mg/dL Calcium (8.4-10.2) mg/dL Total Bilirubin (0.0-1.0) mg/dL Direct Bilirubin (0.0-0.5) mg/dL AST (5-31) U/L ALT (0-31) U/L Alkaline Phosphatase (39-117) U/L Troponin I High Sens < 2.7 (<3.5-17.0) ng/L Total Protein (6.5-8.0) g/dL Albumin (3.5-5.0) g/dL Lipase (8-78) U/L Urine Color Yellow Urine Appearance Cloudy Urine pH 7.0 (5.0-9.0) Ur Specific [place] 1.015 (1.005-1.025) Urine Protein Negative (Neg-Trace) mg/dL Urine Glucose (UA) Negative (Negative) mg/dL Urine Ketones Negative (Negative) mg/dL Urine Blood Negative (Negative) Urine Nitrite Positive H (Negative) Ur Leukocyte Esterase Moderate (2+) H (Negative) Urine RBC 0-2 (0-2) /HPF Urine WBC 21-50 H (0-5) /HPF Ur Squamous Epith Cells 0-2 (0-2) /HPF Urine Bacteria 4+ (None Seen) Hyaline Casts 0-2 (0-2) /LPF Stool Occult Blood (NEGATIVE) Discharge Plan Discharge Clinical Impression: Anemia, Acute UTI, Rectal bleed Patient Disposition: Admitted As Inpatient
--- NOTE | 2022-11-19 09:03 | PC.NURSE ---
Alert and oriented. Reports feeling fatigued and weak x 1 week. Isabelle went to pcp for routine labs and got a call this morning saying her h and h was low. rectal exam performed by provider. States that she will no do a blood transfusion. 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 states in the past a doctor told her that she was losing blood but is unsure from where. nsr on monitor. reports sob with exertion. some nausea yesterday but none now. skin warm and dry but pale. Reports dizziness with exertion along with chest pain with exertion.
[2022-11-19] MEDS: 0.9 % Sodium Chloride 1,000 ML 999 ML IV (09:22)
[2022-11-19 09:26] LABS: MANUAL DIFF FLAG NO
[2022-11-19 09:27] LABS: Basophils Absolute Auto 0.1 X10*3/uL (0.0-0.2); Basophils Percent Auto 0.4 % (0-2); Eosinophils Absolute Auto 0.1 X10*3/uL (0.0-0.4); Eosinophils Percent Auto 0.6 % (0-4); Hematocrit 24.6 % (37.0-47.0); Hemoglobin 7.2 g/dl (12.0-16.0); Imm Gran Abs Auto 0.05 X10*3/uL (0.00-0.03); Imm Gran Pct Auto 0.4 % (0.0-0.4); Lymphocytes Absolute Auto 1.2 X10*3/uL (1.2-4.9); Lymphocytes Percent Auto 8.9 % (20-40); Mean Corpuscular HGB Conc 29.3 g/dl (31.0-35.0); Mean Corpuscular Hemoglobin 21.2 pg (27.0-33.0); Mean Corpuscular Volume 72.6 fL (80.0-98.0); Mean Platelet Volume 9.1 fL (9.4-12.3); Monocytes Absolute Auto 0.9 X10*3/uL (0.1-1.2); Monocytes Percent Auto 6.4 % (2-11); Neutrophils Absolute Auto 11.6 x10*3/uL (2.0-8.3); Neutrophils Percent Auto 83.3 % (45-73); Platelet Count 418 X10*3/uL (160-400); Red Blood Count 3.39 X10*6/uL (4.20-5.50); Red Cell Distribution Width 16.9 % (11.0-16.0); White Blood Count 13.9 X10*3/uL (4.8-10.8)
[2022-11-19 09:32] LABS: OBS Int Ctl Valid YES; OBS1 POSITIVE (NEGATIVE)
[2022-11-19 09:44] LABS: Alanine Aminotransferase 15 U/L (0-31); Albumin Level 3.9 g/dL (3.5-5.0); Alkaline Phosphatase 117 U/L (39-117); Anion Gap 15 (12-20); Aspartate Amino Transferase 16 U/L (5-31); Bilirubin Direct 0.1 mg/dL (0.0-0.5); Bilirubin Total 0.4 mg/dL (0.0-1.0); Blood Urea Nitrogen 21 mg/dL (9-16); Calcium 9.2 mg/dL (8.4-10.2); Carbon Dioxide 25 mmol/L (22-29); Chloride 108 mmol/L (96-108); Creatinine Clr Calc Pharmacy 52.4; Estimated Glomerular Filt Rate > 60; Glucose Random 133 mg/dL (60-115); Lipase 13 U/L (8-78); Sodium 144 mmol/L (135-145); Total Protein 6.9 g/dL (6.5-8.0)
[2022-11-19 09:51] LABS: Troponin-I High Sensitivity < 2.7 ng/L (<3.5-17.0)
[2022-11-19 10:33] LABS: Appearance Urine Cloudy; Color Urine Yellow; Glucose Urine UA Negative (Negative); Leukocyte Esterase Urine Moderate (2+) (Negative); Nitrite Urine Positive (Negative); Specific Gravity - Urine 1.015 (1.005-1.025); UMIC TRIGGER UACC YES; Urine Blood Negative (Negative); Urine Ketones Negative (Negative); Urine Protein Negative (Neg-Trace)
[2022-11-19 10:36] LABS: Bacteria Urine 4+ (None Seen); Hyaline Casts Urine 0-2 /LPF (0-2); RBC Urine 0-2 /HPF (0-2); Squamous Epithelial Cell Urine 0-2 /HPF (0-2); UACC Culture Trigger YES; WBC Urine 21-50 /HPF (0-5)
--- NOTE | 2022-11-19 11:58 | P.HPHOSP_ITS ---
History of Present Illness Date of Service: 11/19/22 Attending physician on admission: Roya Reis Chief Complaint: Generalized weakness Pt is a 77-year-old female with a PMH significant for?CAD with drug-eluting stents in proximal and mid LAD and proximal RCA, 3 MIs, 3 CVAs, multiple TIAs, seizure disorder, Arcos's esophagus, hypothyroidism, lfi-[id number] diabetes, and glaucoma who presents to the ED with?generalized weakness and after routine blood work by PCP showed very low hemoglobin. The patient has a complicated PMH and numerous chronic complaints, but patient states that she has been feeling worse than normal the past couple of weeks with generalized weakness and fatigue. Patient notes she has also experienced nonbloody diarrhea for the past 2 weeks with up to 510 episodes per day and occasional fecal incontinence. Patient experienced similar symptoms earlier in the year when she had diarrhea for around 1 month. Patient then switched to a gluten free diet which resolved diarrhea until 2 weeks ago. Patient reports chronic abdominal pain she attributes to a complicated . Experiences pain particularly postprandial and on her left side. Patient currently is not experiencing any abdominal pain or cramping. Patient also notes she has had a 30 lb unintentional weight loss within the past 6 months that she attributes to reduced p.o. intake. Patient states she is often incontinent of urine and has a pessary in place, but notes she has had some dysuria and has a long history of UTIs. Of note, patient is at high risk for bleeding as she is on both aspirin and ticagrelor. Patient is not currently experiencing nausea, vomiting, abdomi nal pain. No current chest pain, pressure, palpitations. Chronic shortness of breath. In the ED patient was afebrile and slightly hypotensive at 127/54. Labs were significant for leukocytosis of 13.9, microcytic anemia of H&H of 7.2/24.6. Electrolytes WNL. Troponin negative. Hepatic function baseline. Stool was positive for occult blood. UA positive for UTI. Pt was treated with 1 unit PRBC s, ceftriaxone, and IVF. Pt will be admitted to the hospital for further treatment and workup of anemia likely secondary to acute GI bleed and acute UTI. Review of Systems Review of Systems: Weakness, fatigue Nonbloody Diarrhea x2 weeks Dysuria Chronic shortness of breath Chronic postprandial abdominal pain Yes all other systems are reviewed and are negative PMFSH Family History Mother Cancer Father Heart attack Surgical History History of adenoidectomy History of appendectomy History of cardiac cath History of section History of cholecystectomy Hx of hernia repair Hx of tonsillectomy Social History Alcohol intake: never Patient Tobacco Use Status: Former Tobacco user Quit Date: 2003 Years Smoked: 30 +/- Advance Directives: No Meds Allergies Allergy/AdvReac Type Severity Reaction Status Date / Time atorvastatin [From LIPITOR] Allergy Unknown STOMACH Verified 11/19/22 08:24 ISSUES Active Medications: Current Medications Pharmacy Consult (Consult Rx Perform Med Rec) 1 each MISCELLANE ONCE PRN PRN Reason: Consult order Pharmacy Consult (Consult Rx Perform Med Rec) 1 each MISCELLANE ONCE PRN PRN Reason: Consult order Home Medications Medication Instructions Recorded Confirmed Last Taken Type albuterol sulfate 90 mcg/actuation 2 puff inhalation Q4H PRN 09/30/20 11/19/22 Unknown History aerosol inhaler Respiratory Distress aspirin 81 mg tablet,delayed 81 mg PO DAILY 09/30/20 11/19/22 11/18/22 History release (Adult Low Dose Aspirin) latanoprost 0.005 % eye drops 1 drp ophthalmic (eye) BEDTIME 09/30/20 11/19/22 11/18/22 History omeprazole 20 mg capsule,delayed 20 mg PO BID 09/30/20 11/19/22 11/18/22 History release oxycodone-acetaminophen 5 mg-325 1 tab PO BID PRN Pain (Scale Score 09/30/20 11/19/22 Unknown History mg tablet 7-10) acetaminophen 650 mg 1,300 mg PO Q8H PRN Pain 02/24/21 11/19/22 Unknown History tablet,extended release (Tylenol 8 Hour) cholecalciferol (vitamin D3) 50 50 mcg PO DAILY 02/24/21 11/19/22 11/18/22 History mcg (2,000 unit) capsule magnesium 250 mg tablet 500 mg PO DAILY 02/24/21 11/19/22 11/18/22 History milk thistle 500 mg capsule 500 mg PO BID 02/24/21 11/19/22 Unknown History zinc 50 mg tablet 50 mg PO DAILY 02/24/21 11/19/22 11/18/22 History cyanocobalamin (vitamin B-12) 1,000 mcg PO DAILY 03/16/22 11/19/22 11/18/22 History 1,000 mcg tablet levothyroxine 112 mcg tablet 112 mcg PO DAILY 03/16/22 11/19/22 11/18/22 History metformin 500 mg tablet 500 mg PO BID 03/16/22 11/19/22 11/18/22 History biotin 5 mg capsule 5 mg PO DAILY 05/04/22 11/19/22 11/18/22 History melatonin 10 mg capsule 10 mg PO BEDTIME 05/04/22 11/19/22 Unknown History ticagrelor 90 mg tablet (Brilinta) 90 mg PO BID 05/04/22 11/19/22 11/18/22 History atorvastatin 40 mg tablet 40 mg PO DAILY 06/16/22 11/19/22 11/18/22 History mirabegron 50 mg tablet,extended 50 mg PO DAILY 06/16/22 11/19/22 11/18/22 History release 24 hr (Myrbetriq) famotidine 40 mg tablet 40 mg PO BID 09/07/22 11/19/22 11/18/22 History ascorbic acid (vitamin C) 500 mg 500 mg PO DAILY 11/19/22 11/19/22 11/18/22 History tablet betamethasone valerate 0.1 % 1 appl topical DAILY 11/19/22 11/19/22 11/18/22 History topical cream levetiracetam 750 mg tablet 750 mg PO BID 11/19/22 11/19/22 11/18/22 History (Keppra) loperamide 2 mg tablet 2 mg PO QID PRN LOOSE STOOLS 11/19/22 11/19/22 Unknown History naloxone 4 mg/actuation nasal spray 4 mg intranasal Q2M PRN OPIOD 11/19/22 11/19/22 Unknown History OVERDOSE peg 400-propylene glycol (PF) 0.4 1 drp ophthalmic (eye) BID 11/19/22 11/19/22 11/18/22 History %-0.3 % eye drops in a dropperette (Systane (PF)) simethicone 125 mg chewable tablet 125 mg PO TID PRN GAS/BLOATING 11/19/22 06/0 09/08 Unknown History Physical Exam Vital Signs and Narrative: Vital Signs: Last Vital Signs Temp 98.1 F 11/19/22 08:53 Pulse 92 11/19/22 08:53 Resp 18 11/19/22 08:53 BP 130/65 11/19/22 08:53 Pulse Ox 92 11/19/22 08:53 O2 Del Method Room Air 11/19/22 08:53 BMI result Body Mass Index 25.0 Constitutional: Alert, in no acute distress. Mental Status: Oriented to person, place and time. Eyes: Pupils are equal, round, and reactive to light. Ear, Nose, and Throat: Oropharynx clear, mucous membranes moist. Ears and nose without deformities. Trachea midline. Respiratory: Clear to auscultation bilaterally. No wheezing, rales, or rhonchi. Cardiovascular: S1, S2 regular. No murmurs, rubs, or gallops. Gastrointestinal: Abdomen soft, non-tender, non-distended. Normal bowel sounds. Neurologic: Cranial nerves II-XII are grossly intact bilaterally. No focal neurological deficits. Moves all extremities spontaneously. Skin: No rashes or lesions noted. Musculoskeletal: No cyanosis or clubbing. Extremities: No edema. Psychiatric: Normal mood and affect. Results Labs 11/19/22 09:20 11/19/22 09:20 Labs: Laboratory Results - last 24 hr 11/19/22 11/19/22 11/19/22 09:14 09:20 09:20 MCV 72.6 L MCH 21.2 L MCHC 29.3 L RDW 16.9 H Plt Count 418 H MPV 9.1 L Immature Gran % (Auto) 0.4 Neut % (Auto) 83.3 H Lymph % (Auto) 8.9 L [place] % (Auto) 6.4 Eos % (Auto) 0.6 Baso % (Auto) 0.4 Lymph # (Auto) 1.2 [place] # (Auto) 0.9 Eos # (Auto) 0.1 Baso # (Auto) 0.1 Abs Immat Gran (auto) 0.05 H Absolute Neuts (auto) 11.6 H Absolute Nucleated RBC 0.000 Nucleated RBC % (auto) 0.0 Anion Gap 15 Estim Creat Clear Calc 52.4 Estimated GFR > 60 Random Glucose 133 H Calcium 9.2 D Total Bilirubin 0.4 Direct Bilirubin 0.1 AST 16 ALT 15 Alkaline Phosphatase 117 Troponin I High Sens Total Protein 6.9 Albumin 3.9 Lipase 13 Urine Color Urine Appearance Urine pH Ur Specific [place] Urine Protein Urine Glucose (UA) Urine Ketones Urine Blood Urine Nitrite Ur Leukocyte Esterase Urine RBC Urine WBC Ur Squamous Epith Cells Urine Bacteria Hyaline Casts Stool Occult Blood POSITIVE 11/19/22 11/19/22 09:21 10:26 MCV MCH MCHC RDW Plt Count MPV Immature Gran % (Auto) Neut % (Auto) Lymph % (Auto) [place] % (Auto) Eos % (Auto) Baso % (Auto) Lymph # (Auto) [place] # (Auto) Eos # (Auto) Baso # (Auto) Abs Immat Gran (auto) Absolute Neuts (auto) Absolute Nucleated RBC Nucleated RBC % (auto) Anion Gap Estim Creat Clear Calc Estimated GFR Random Glucose Calcium Total Bilirubin Direct Bilirubin AST ALT Alkaline Phosphatase Troponin I High Sens < 2.7 Total Protein Albumin Lipase Urine Color Yellow Urine Appearance Cloudy Urine pH 7.0 Ur Specific [place] 1.015 Urine Protein Negative Urine Glucose (UA) Negative Urine Ketones Negative Urine Blood Negative Urine Nitrite Positive H Ur Leukocyte Esterase Moderate (2+) H Urine RBC 0-2 Urine WBC 21-50 H Ur Squamous Epith Cells 0-2 Urine Bacteria 4+ Hyaline Casts 0-2 Stool Occult Blood Assessment and Plan (1) Anemia: Status: Acute (2) Acute UTI: Status: Acute (3) Lower GI bleed: Status: Acute Plan Pt is a 77-year-old female with a PMH significant for?CAD with drug-eluting stents in proximal and mid LAD and proximal RCA, 3 MIs, 3 CVAs, multiple TIAs, s eizure disorder, Arcos's esophagus, hypothyroidism, [id number] diabetes, and glaucoma who presents to the ED with?generalized weakness and after routine blood work by PCP showed very low hemoglobin. Pt will be admitted to the hospital for further treatment and workup of anemia likely secondary to acute GI bleed and acute UTI. Anemia in the setting of likely GI bleed H&H of 7.2/24.6, stool positive for occult blood Likely has been going on for some time, pt a bleeding risk on aspirin and ticagrelor Pt complaining of generalized weakness, fatigue, non-bloody diarrhea x2 weeks Pt with 30 lb unintentional weight loss Abdominal exam benign Will get CT of abd/pelvis to rule out acute abdomen/malignancy Will hold aspirin and ticagrelor for now Patient receive 1 unit of PRBCs Protonix IV b.i.d. GI consult Cardiology consult UTI Patient's UA positive for UTI, patient with long history of UTIs Will treat with Ceftriaxone, started on 11/19/2022 Hx oF CVA Hold asipirin Coninue statin CAD, hx of muliple MIs Hold ticagrelor Cardiology consult Monitor on telemetry Lnv-oyqoaba-tvvoymkno diabetes Hold metformin Sliding-scale insulin Seizure disorder Continue Keppra Hypothyroidism Continue levothyroxine HTN Hold antihypertensives for now, patient's BP soft Resume antihypertensives as necessary Diet Patient is gluten intolerant Wound free, cardiac, diabetic diet Full Code Attending:?Dr. Reis DVT Prophylaxis: Pneumatic boots Pt will require a hospitalization of at least two nights for further treatment and workup of anemia likely secondary to acute GI bleed and acute UTI. Time Spent With Patient Time: Total time managing care of this patient today ____ minutes. Quality Stroke Does the patient have a stroke diagnosis?: No VTE Prior VTE?: No VTE Risk Level:: Medical - moderate - high VTE Device Contraindication: N/A - Device Ordered VTE Drug Contraindication: Treatment Not Indicated
[2022-11-19 12:20] LABS: Lactic Acid 1.5 mmol/L (0.5-2.0)
[2022-11-19] MEDS: cefTRIAXone sodium 1 GM in 0.9 % Sodium Chloride 50 ML IV (12:28)
--- NOTE | 2022-11-19 12:29 | PC.NURSE ---
Alert and oriented. Up ambulating to bathroom and commode without difficulty. IV abt as ordered. No sob at rest. Denies chest pain. Seen by admitting provider.
--- NOTE | 2022-11-19 12:33 | PHA.MEDREC ---
Med rec complete, patient had list of all meds and otcs, also claim history available Pharmacy Consult ? Medication Reconciliation Pharmacy has completed the medication reconciliation.
[2022-11-19] MEDS: iohexoL 350 MG/ML 100 ML INFUS..BTL IV (14:17)
--- NOTE | 2022-11-19 14:23 | PC.NURSE ---
Transfusion started per order. This RN in room with pt for monitoring for 15 min evaluation. NSR on monitor. son at bedside. Skin pale, intermittent SOB with exertion. Fatigue.
[2022-11-19] MEDS: levETIRAcetam 250 MG TABLET 750 MG PO ×2 (15:12→20:28)
[2022-11-19] MEDS: Pantoprazole Sodium 40 MG/10 ML VIAL IVPUSH (15:12)
[2022-11-19] MEDS: Cyanocobalamin (Vitamin B-12) 1,000 MCG TABLET 1000 MCG PO (15:13)
[2022-11-19] MEDS: Famotidine 20 MG TABLET 40 MG PO ×2 (15:13→20:29)
[2022-11-19] MEDS: oxyCODONE HCl Immed Release 5 MG TABLET PO (15:22)
[2022-11-19] MEDS: Mirabegron 50 MG TAB.ER.24H PO (15:41)
--- NOTE | 2022-11-19 15:42 | PC.NURSE ---
Report called to Miguel for transfer to unit. Blood running per order
[2022-11-19 16:50] LABS: Glucose, Whole Blood 129 mg/dL (60-115)
[2022-11-19] MEDS: 0.9 % Sodium Chloride Flush 3 ML SYRINGE IVFLUSH (18:49)
[2022-11-19] MEDS: Melatonin 3 MG TABLET 9 MG PO (20:28)
[2022-11-19] MEDS: Atorvastatin Calcium 40 MG TABLET PO (20:29)
[2022-11-19] MEDS: Latanoprost 0.005 % Ophth Sol 2.5 ML DROPS 1 DROP EYE-BOTH (20:30)
[2022-11-19 20:45] LABS: Glucose, Whole Blood 133 mg/dL (60-115)
[2022-11-20] VITALS (9 sets, daily range): BP systolic 116–163; BP diastolic 53–76; PULSE 72–90; RESP 16–18; TEMP 36–37.1; O2SAT 94–98
[2022-11-20] MEDS: oxyCODONE HCl Immed Release 5 MG TABLET PO ×2 (03:31→21:22)
[2022-11-20] MEDS: Levothyroxine Sodium 112 MCG TABLET PO (05:20)
[2022-11-20] MEDS: Pantoprazole Sodium 40 MG/10 ML VIAL IVPUSH ×2 (05:20→17:20)
[2022-11-20] MEDS: 0.9 % Sodium Chloride Flush 3 ML SYRINGE IVFLUSH ×4 (05:20→21:25)
[2022-11-20 06:21] LABS: Hematocrit 30.2 % (37.0-47.0); Hemoglobin 9.2 g/dl (12.0-16.0); Mean Corpuscular HGB Conc 30.5 g/dl (31.0-35.0); Mean Corpuscular Hemoglobin 23.1 pg (27.0-33.0); Mean Corpuscular Volume 75.7 fL (80.0-98.0); Mean Platelet Volume 9.9 fL (9.4-12.3); Platelet Count 350 X10*3/uL (160-400); Red Blood Count 3.99 X10*6/uL (4.20-5.50); Red Cell Distribution Width 19.6 % (11.0-16.0); White Blood Count 10.5 X10*3/uL (4.8-10.8)
[2022-11-20 06:57] LABS: Anion Gap 10 (12-20); Blood Urea Nitrogen 13 mg/dL (9-16); Calcium 8.5 mg/dL (8.4-10.2); Carbon Dioxide 24 mmol/L (22-29); Chloride 110 mmol/L (96-108); Creatinine Clr Calc Pharmacy 67.5; Estimated Glomerular Filt Rate > 60; Glucose Random 110 mg/dL (60-115); Potassium 4.1 mmol/L (3.3-5.1); Sodium 140 mmol/L (135-145)
[2022-11-20 07:21] LABS: Glucose, Whole Blood 112 mg/dL (60-115)
--- NOTE | 2022-11-20 10:41 | PM.GICN ---
History of Present Illness Data of Consult Service Date: 11/20/22 Requesting physician: Sp Navarro Primary Care Provider: Eddie Marshall MD HPI Reason for consult: GI bleed This is a 77-year-old female with extensive coronary artery disease status post PCI May 2022, on dual anti-platelet therapy, hypertension, hyperlipidemia, who presented to the hospital for weakness and was found to have acute on chronic anemia. Gastroenterology has been consulted for question of GI bleed. History was obtained the patient, who states that she has been having intermittent abdominal pain with weakness, shortness of breath and lightheadedness for a few months now. Also reports an unintentional weight loss of > 10lbs in the last few months which she charts to diarrhea. In terms of the diarrhea, describes it as loose, watery occuring up to 5-6 times a day. Most recently has progressed in the last 2 weeks to the point that she is unable to step out of the home for more than a few minutes. Night time sx +. No blood in stool or melena. Specifically describes stool as yellow to brown. She was seen by her PCP for these sx on Monday who ordered blood work and she received a call Monday morning to go to the ER due to drop in H/H requiring blood transfusion. Last colo per her report was more than 5 years ago and was incomplete due to difficult sigmoid colon . She does not recall if she had a follow up barium enema or colonography. Son (Raymundo) at bedside also gives a hx of anemia a few years ago for which she was seen at [facility] but states that pt was told she had internal bleeding and was discharged from the ER, does not recall if a GI work up was recommended at that time. On arrival to the emergency room, she was noted to be hemodynamically stable. Labs were significant for acute drop in hemoglobin to 7.2, with mildly elevated leukocytosis and a narrow MCV of 72.6. s/p 2U PRBC transfusion. She also underwent CT abdomen pelvis with IV contrast that does not show any acute findings to explain the weight loss. Review of Systems Review of Systems: Yes all other systems are reviewed and are negative [facility] Family History Family History Mother Cancer Father Heart attack Surgical History Surgical History History of adenoidectomy History of appendectomy History of cardiac cath History of section History of cholecystectomy Hx of hernia repair Hx of tonsillectomy Social History Social History Household Members: Children Housing: House Do you presently have visiting nurse or other home services: Yes Alcohol intake: never Patient Tobacco Use Status: Former Tobacco user Quit Date: 11/18/03 Years Smoked: 30 +/- e-Cigarette/Vaping Use: Never Used Second Hand Smoke Exposure: No Substance Use Type: IV Drugs service: No Current occupational status: retired Meds Allergies Allergy/AdvReac Type Severity Reaction Status Date / Time atorvastatin [From LIPITOR] Allergy Unknown STOMACH Verified 11/19/22 08:24 ISSUES Active Medications: Current Medications Acetaminophen (Acetaminophen 325 Mg Tablet) 650 mg PO Q6H PRN PRN Reason: Pain, Mild (Pain Scale 1-3) Acetaminophen (Acetaminophen 325 Mg Tablet) 325 mg PO BID PRN PRN Reason: Pain, Severe (Pain Scale 7-10) Albuterol Sulfate (Albuterol Sulfate 90 Mcg 8 Gm Inhaler) 2 puff INHALE Q4H PRN PRN Reason: Respiratory Distress Atorvastatin Calcium (Atorvastatin Calcium 40 Mg Tablet) 40 mg PO BEDTIME [facility] Last Admin: 11/19/22 20:29 Dose: 40 mg Cyanocobalamin (Cyanocobalamin (Vitamin B-12) 1,000 Mcg Tablet) 1,000 mcg PO DAILY [facility] Last Admin: 11/19/22 15:13 Dose: 1,000 mcg Docusate Sodium (Docusate Sodium 100 Mg Capsule) 100 mg PO DAILY PRN PRN Reason: Constipation Famotidine (Famotidine 20 Mg Tablet) 40 mg PO BID [facility] Last Admin: 11/19/22 20:29 Dose: 40 mg Glucose (Glucose Gel 15 Gm Gel..Gram.) 15 gm PO Q15M PRN; Protocol PRN Reason: per Hypoglycemia Standing Ord. Dextrose (D10) 250 mls @ 750 mls/hr IV Q15M PRN; Protocol PRN Reason: per Hypoglycemia Standing Ord. Ceftriaxone Sodium 1 gm/ (Sodium Chloride) 50 mls @ 100 mls/hr IV Q24H [facility] Insulin Human Lispro (Insulin Lispro 100 Unit/Ml 3 Ml Vial) 0 unit SUBCUT QIDACHS [facility]; Protocol Last Admin: 11/20/22 10:20 Dose: Not Given Latanoprost (Latanoprost 0.005 % Ophth Danni 2.5 Ml Drops) 1 drop EYE-BOTH BEDTIME [facility] Last Admin: 11/19/22 20:30 Dose: 1 drop Levetiracetam (Levetiracetam 250 Mg Tablet) 750 mg PO BID [facility] Last Admin: 11/19/22 20:28 Dose: 750 mg Levothyroxine Sodium (Levothyroxine Sodium 112 Mcg Tablet) 112 mcg PO DAILY@0600 [facility] Last Admin: 11/20/22 05:20 Dose: 112 mcg Magnesium Oxide (Magnesium Oxide 400 Mg Tablet) 400 mg PO DAILY [facility] Melatonin (Melatonin 3 Mg Tablet) 9 mg PO BEDTIME [facility] Last Admin: 11/19/22 20:28 Dose: 9 mg Mirabegron (Mirabegron 50 Mg Tab.Er.24h) 50 mg PO DAILY [facility] Last Admin: 11/19/22 15:41 Dose: 50 mg Ondansetron HCl (Ondansetron Hcl 4 Mg/2 Ml Vial) 4 mg IVPUSH Q8H PRN PRN Reason: Nausea and Vomiting Oxycodone HCl (Oxycodone Hcl Immed Release 5 Mg Tablet) 5 mg PO BID PRN PRN Reason: Pain (Scale Score 7-10) Pantoprazole Sodium (Pantoprazole Sodium 40 Mg/10 Ml Vial) 40 mg IVPUSH BID@0630,1630 [facility] Last Admin: 11/20/22 05:20 Dose: 40 mg Pharmacy Consult (Consult Rx Perform Med Rec) 1 each MISCELLANE ONCE PRN PRN Reason: Consult order Pharmacy Consult (Consult Rx Perform Med Rec) 1 each MISCELLANE ONCE PRN PRN Reason: Consult order Sodium Chloride (0.9 % Sodium Chloride Flush 3 Ml Syringe) 3 ml IVFLUSH QSHIFT [facility] Last Admin: 11/20/22 05:20 Dose: 3 ml Home Medications Medication Instructions Recorded Confirmed Last Taken Type albuterol sulfate 90 mcg/actuation 2 puff inhalation Q4H PRN 09/30/20 11/19/22 Unknown History aerosol inhaler Respiratory Distress aspirin 81 mg tablet,delayed 81 mg PO DAILY 09/30/20 11/19/22 11/18/22 History release (Adult Low Dose Aspirin) latanoprost 0.005 % eye drops 1 drp ophthalmic (eye) BEDTIME 09/30/20 11/19/22 11/18/22 History omeprazole 20 mg capsule,delayed 20 mg PO BID 09/30/20 11/19/22 11/18/22 History release oxycodone-acetaminophen 5 mg-325 1 tab PO BID PRN Pain (Scale Score 09/30/20 11/19/22 Unknown History mg tablet 7-10) acetaminophen 650 mg 1,300 mg PO Q8H PRN Pain 02/24/21 11/19/22 Unknown History tablet,extended release (Tylenol 8 Hour) cholecalciferol (vitamin D3) 50 50 mcg PO DAILY 02/24/21 11/19/22 11/18/22 History mcg (2,000 unit) capsule magnesium 250 mg tablet 500 mg PO DAILY 02/24/21 11/19/22 11/18/22 History milk thistle 500 mg capsule 500 mg PO BID 02/24/21 11/19/22 Unknown History zinc 50 mg tablet 50 mg PO DAILY 02/24/21 11/19/22 11/18/22 History cyanocobalamin (vitamin B-12) 1,000 mcg PO DAILY 03/16/22 11/19/22 11/18/22 History 1,000 mcg tablet levothyroxine 112 mcg tablet 112 mcg PO DAILY 03/16/22 11/19/22 11/18/22 History metformin 500 mg tablet 500 mg PO BID 03/16/22 11/19/22 11/18/22 History biotin 5 mg capsule 5 mg PO DAILY 05/04/22 11/19/22 11/18/22 History melatonin 10 mg capsule 10 mg PO BEDTIME 05/04/22 11/19/22 Unknown History ticagrelor 90 mg tablet (Brilinta) 90 mg PO BID 05/04/22 11/19/22 11/18/22 History atorvastatin 40 mg tablet 40 mg PO DAILY 06/16/22 11/19/22 11/18/22 History mirabegron 50 mg tablet,extended 50 mg PO DAILY 06/16/22 11/19/22 11/18/22 History release 24 hr (Myrbetriq) famotidine 40 mg tablet 40 mg PO BID 09/07/22 11/19/22 11/18/22 History ascorbic acid (vitamin C) 500 mg 500 mg PO DAILY 11/19/22 11/19/22 11/18/22 History tablet betamethasone valerate 0.1 % 1 appl topical DAILY 11/19/22 11/19/22 11/18/22 History topical cream levetiracetam 750 mg tablet 750 mg PO BID 11/19/22 11/19/22 11/18/22 History (Keppra) loperamide 2 mg tablet 2 mg PO QID PRN LOOSE STOOLS 11/19/22 11/19/22 Unknown History naloxone 4 mg/actuation nasal spray 4 mg intranasal Q2M PRN OPIOD 11/19/22 11/19/22 Unknown History OVERDOSE peg 400-propylene glycol (PF) 0.4 1 drp ophthalmic (eye) BID 11/19/22 11/19/22 11/18/22 History %-0.3 % eye drops in a dropperette (Systane (PF)) simethicone 125 mg chewable tablet 125 mg PO TID PRN GAS/BLOATING 11/19/22 11/19/22 Unknown History Physical Exam Vital Signs: Vital Signs: Last Vital Signs Temp 98.6 F 11/20/22 07:14 Pulse 79 11/20/22 07:14 Resp 16 11/20/22 07:14 BP 118/53 L 11/20/22 07:14 Pulse Ox 97 11/20/22 07:14 O2 Del Method Room Air 11/20/22 07:14 BMI result Body Mass Index 25.0 Gen appear: Elderly female HEENT: nonicteric, no cervical lymphadenopathy Chest: CTA CVS: Regular S1/S2 Abd: soft, nontender, nondistended, bowel sounds + Ext: no peripheral edema Neuro: A/Ox3, noted to move all extremities spontaneously Psych: interacting appropriately Results Labs 11/20/22 05:58 11/20/22 05:58 Labs: Short CBC 11/20/22 Range/Units 05:58 WBC 10.5 (4.8-10.8) X10*3/uL Hgb 9.2 L D (12.0-16.0) g/dl Hct 30.2 L D (37.0-47.0) % Plt Count 350 (160-400) X10*3/uL BMP 11/20/22 05:58 Sodium 140 Potassium 4.1 Chloride 110 H Carbon Dioxide 24 BUN 13 Creatinine 0.59 Calcium 8.5 D Assessment and Plan (1) Anemia: Status: Acute (2) CAD (coronary artery disease): Status: Acute Plan P/w subacute sx and anemia. No clear hx of hematochezia and melena however hx most suspicious for occult GI bleed. Bidirectional endoscopy is indicated. As pt has extensive CAD hx and NICOLAS placement 6 months ago, would recommend Cardiology eval rosanna for guidance on jone-operative antithrombotic interruption. From endoscopy standpoint, ASA 81 should be be continued for secondary prophylaxis, but brillinta to be held for at least 5 days (i.e can plan for procedure 11/24 tentatively). Pt can have regular/cardiac diet. Protonix can be switched to PO. Depending on overall clinical course, if pt is discharged before 11/23, can schedule the endoscopy as outpatient. Thank you for allowing me to participate in the patient's care. Please do not hesitate to reach out for any questions or concerns. Time Spent With Patient Time: Total time managing care of this patient today ____ minutes. Procedures Date of Service Date of Service: 11/20/22
[2022-11-20 11:02] LABS: Glucose, Whole Blood 154 mg/dL (60-115)
[2022-11-20] MEDS: Famotidine 20 MG TABLET 40 MG PO ×2 (11:25→21:23)
[2022-11-20] MEDS: levETIRAcetam 250 MG TABLET 750 MG PO ×2 (11:26→21:22)
[2022-11-20] MEDS: Magnesium Oxide 400 MG TABLET PO (11:29)
[2022-11-20] MEDS: Cyanocobalamin (Vitamin B-12) 1,000 MCG TABLET 1000 MCG PO (11:29)
[2022-11-20] MEDS: Mirabegron 50 MG TAB.ER.24H PO (11:31)
[2022-11-20] MEDS: cefTRIAXone sodium 1 GM in 0.9 % Sodium Chloride 50 ML IV (11:31)
--- NOTE | 2022-11-20 12:04 | P.PNIM_ITS ---
Subjective Subjective Date of Service: 11/20/22 Interval History: Seen and evaluated Feels better, no reported bleeding Hb recovered to 9.2 No other overnight events Review of Systems Review of Systems: Yes all other systems are reviewed and are negative Physical Exam Vital Signs: Vital Signs: Last Vital Signs Temp 97.3 F 11/20/22 11:02 Pulse 72 11/20/22 11:02 Resp 16 11/20/22 11:02 BP 117/57 L 11/20/22 11:02 Pulse Ox 94 11/20/22 11:02 O2 Del Method Room Air 11/20/22 11:02 BMI result Body Mass Index 25.0 Const: Other: Constitutional : Awake, interactive, not in distress Neck : Normal inspection, Supple Cardiovascular : RRR, no JVP, no lower extremity edema Respiratory : good bilateral air entry, no crackles, wheezes or rhonchi Gastrointestinal: soft, lax, Normal bowel sounds, Non tender Skin : Warm, Dry Neurological : Alert & oriented x3, No focal deficit Objective Data Active Medications Acetaminophen (Acetaminophen 325 Mg Tablet) 650 mg PO Q6H PRN PRN Reason: Pain, Mild (Pain Scale 1-3) Acetaminophen (Acetaminophen 325 Mg Tablet) 325 mg PO BID PRN PRN Reason: Pain, Severe (Pain Scale 7-10) Albuterol Sulfate (Albuterol Sulfate 90 Mcg 8 Gm Inhaler) 2 puff INHALE Q4H PRN PRN Reason: Respiratory Distress Aspirin (Aspirin Enteric Coated 81 Mg Tablet.) 81 mg PO DAILY [facility] Atorvastatin Calcium (Atorvastatin Calcium 40 Mg Tablet) 40 mg PO BEDTIME [facility] Last Admin: 11/19/22 20:29 Dose: 40 mg Documented By: KANDICE Cyanocobalamin (Cyanocobalamin (Vitamin B-12) 1,000 Mcg Tablet) 1,000 mcg PO DAILY [facility] Last Admin: 11/20/22 11:29 Dose: 1,000 mcg Documented By: EDWIGE Docusate Sodium (Docusate Sodium 100 Mg Capsule) 100 mg PO DAILY PRN PRN Reason: Constipation Famotidine (Famotidine 20 Mg Tablet) 40 mg PO BID [facility] Last Admin: 11/20/22 11:25 Dose: 40 mg Documented By: EDWIGE Glucose (Glucose Gel 15 Gm Gel..Gram.) 15 gm PO Q15M PRN; Protocol PRN Reason: per Hypoglycemia Standing Ord. Dextrose (D10) 250 mls @ 750 mls/hr IV Q15M PRN; Protocol PRN Reason: per Hypoglycemia Standing Ord. Ceftriaxone Sodium 1 gm/ (Sodium Chloride) 50 mls @ 100 mls/hr IV Q24H [facility] Last Admin: 11/20/22 11:31 Dose: 100 mls/hr Documented By: EDWIGE Insulin Human Lispro (Insulin Lispro 100 Unit/Ml 3 Ml Vial) 0 unit SUBCUT QIDACHS [facility]; Protocol Last Admin: 11/20/22 10:20 Dose: Not Given Documented By: EDWIGE Non-Admin Reason: No Insulin Coverage Latanoprost (Latanoprost 0.005 % Ophth Danni 2.5 Ml Drops) 1 drop EYE-BOTH BEDTIME [facility] Last Admin: 11/19/22 20:30 Dose: 1 drop Documented By: KANDICE Levetiracetam (Levetiracetam 250 Mg Tablet) 750 mg PO BID [facility] Last Admin: 11/20/22 11:26 Dose: 750 mg Documented By: EDWIGE Levothyroxine Sodium (Levothyroxine Sodium 112 Mcg Tablet) 112 mcg PO DAILY@0600 [facility] Last Admin: 11/20/22 05:20 Dose: 112 mcg Documented By: KANDICE Magnesium Oxide (Magnesium Oxide 400 Mg Tablet) 400 mg PO DAILY [facility] Last Admin: 11/20/22 11:29 Dose: 400 mg Documented By: EDWIGE Melatonin (Melatonin 3 Mg Tablet) 9 mg PO BEDTIME [facility] Last Admin: 11/19/22 20:28 Dose: 9 mg Documented By: KANDICE Mirabegron (Mirabegron 50 Mg Tab.Er.24h) 50 mg PO DAILY [facility] Last Admin: 11/20/22 11:31 Dose: 50 mg Documented By: EDWIGE Ondansetron HCl (Ondansetron Hcl 4 Mg/2 Ml Vial) 4 mg IVPUSH Q8H PRN PRN Reason: Nausea and Vomiting Oxycodone HCl (Oxycodone Hcl Immed Release 5 Mg Tablet) 5 mg PO BID PRN PRN Reason: Pain (Scale Score 7-10) Pantoprazole Sodium (Pantoprazole Sodium 40 Mg/10 Ml Vial) 40 mg IVPUSH BID@0630,1630 [facility] Last Admin: 11/20/22 05:20 Dose: 40 mg Documented By: KANDICE Pharmacy Consult (Consult Rx Perform Med Rec) 1 each MISCELLANE ONCE PRN PRN Reason: Consult order Pharmacy Consult (Consult Rx Perform Med Rec) 1 each MISCELLANE ONCE PRN PRN Reason: Consult order Sodium Chloride (0.9 % Sodium Chloride Flush 3 Ml Syringe) 3 ml IVFLUSH QSHIFT [facility] Last Admin: 11/20/22 11:42 Dose: 3 ml Documented By: EDWIGE Labs 11/20/22 05:58 11/20/22 05:58 Labs: Laboratory Results - last 24 hr 11/19/22 11/19/22 11/19/22 11:56 11:56 16:44 MCV MCH MCHC RDW Plt Count MPV Absolute Nucleated RBC Nucleated RBC % (auto) Anion Gap Estim Creat Clear Calc Estimated GFR POC Glucose 129 H Random Glucose Lactic Acid 1.5 Calcium Blood Type B Positive Antibody Screen NEGATIVE Crossmatch See Detail 11/19/22 11/20/22 11/20/22 20:37 05:58 05:58 MCV 75.7 L MCH 23.1 L MCHC 30.5 L RDW 19.6 H Plt Count 350 MPV 9.9 Absolute Nucleated RBC 0.000 Nucleated RBC % (auto) 0.0 Anion Gap 10 L Estim Creat Clear Calc 67.5 Estimated GFR > 60 POC Glucose 133 H Random Glucose 110 Lactic Acid Calcium 8.5 D Blood Type Antibody Screen Crossmatch 11/20/22 11/20/22 07:12 10:54 MCV MCH MCHC RDW Plt Count MPV Absolute Nucleated RBC Nucleated RBC % (auto) Anion Gap Estim Creat Clear Calc Estimated GFR POC Glucose 112 154 H Random Glucose Lactic Acid Calcium Blood Type Antibody Screen Crossmatch Microbiology Microbiology Results: Microbiology 11/19/22 Unknown Urine Culture - Preliminary Urine clean catch - Urine ojeda top Culture in progress. Assessment and Plan (1) Symptomatic anemia: Status: Acute (2) Lower GI bleed: Status: Acute (3) Acute UTI: Status: Acute Plan Pt is a 77-year-old female with a PMH significant for?CAD with drug-eluting stents in proximal and mid LAD and proximal RCA, 3 MIs, 3 CVAs, multiple TIAs, seizure disorder, Arcos's esophagus, hypothyroidism, [id number] diabetes, and glaucoma who presents to the ED with?generalized weakness and after routine blood work by PCP showed very low hemoglobin. Pt will be admitted to the hospital for further treatment and workup of anemia likely secondary to acute GI bleed and acute UTI. Symptomatic Anemia in the setting of GI bleed Hb improved after [address] Abdomen negative for any masses Hold ticagrelor for now resume ASA per cardiology Protonix IV b.i.d. GI to do EGD tomorrow, Colonoscopy in 5 days waiting Brilinta to clear out. Cardiology input apreciated Follow H&H UTI treat with Ceftriaxone, started on 11/19/2022 pending cultures Hx oF CVA resume asipirin Coninue statin CAD, hx of muliple MIs Hold ticagrelor Cardiology consult Monitor on telemetry [id number] diabetes Hold metformin Sliding-scale insulin Seizure disorder Continue Keppra Hypothyroidism Continue levothyroxine HTN Hold antihypertensives for now, patient's BP soft Resume antihypertensives as necessary Diet Patient is gluten intolerant Wound free, cardiac, diabetic diet Full Code DVT Prophylaxis: Pneumatic boots Pt will require a hospitalization of overnight for further treatment and workup of anemia likely secondary to acute GI bleed and acute UTI. Time Spent With Patient Time: Total time managing care of this patient today ____ minutes. Quality Stroke Does the patient have a stroke diagnosis?: No VTE Prior VTE?: No VTE Risk Level:: Medical - moderate - high VTE Device Contraindication: N/A - Device Ordered VTE Drug Contraindication: Treatment Not Indicated
--- NOTE | 2022-11-20 12:17 | PM.CNCAR ---
History of Present Illness History of Present Illness Date of Service: 11/20/22 Requesting physician: Roya Reis Consult reason: pre-op evaluation and other (CAD) Chief complaint: gi bleed Narrative: I was consulted to see Celeste in cardiology consultation today because of CAD with stenting, last done 06/02/2022. Patient presents with severe anemia which is symptomatic and admitted. She has received 2 units of packed RBC. Hematocrit is improved over 30. She feels better. Consult called as she is currently on dual anti platelet therapy as indicated for PCI in May with aspirin Brilinta. She says over the last few weeks she has been getting increasingly fatigued. On further questioning she says she has had some dark stools and fall swellings stool with mucus see feel. She did not pay much attention to it. However she has had multiple bouts of the same associated with fall smelling gas. The last episode about couple days ago. She then had hematocrit done which was significantly reduced and was called by PCP to be admitted. She came to the emergency room. She was having some chest discomfort at that point time. She has not had any chest discomfort now. Her aspirin and Brilinta have been withheld. She has seen by GI and is planned to undergo endoscopy which I think is appropriate given her acute GI bleed. Review of Systems Constitutional: Constitutional: Reports fatigue, Reports lethargy and Reports weakness Eyes: Eyes: Reports no additional eye complaints Cardiovascular: Cardiovascular: Reports chest pain, Denies syncope, Denies leg edema, Denies lightheadedness, Denies Loss of Consciousness, Denies palpitations and Reports dyspnea on exertion Respiratory: Respiratory: Reports dyspnea on exertion Gastrointestinal: Gastrointestinal: Reports melena and Reports excessive flatus Genitourinary: Genitourinary: Reports no additional female genitourinary complaints Musculoskeletal: Musculoskeletal: Reports no additional musculoskeletal complaints Integumentary/Breasts: Skin/Breast: Reports system reviewed and no additional complaints, except as docu Neurologic: Reports system reviewed and no additional complaints, except as documented, Denies syncope and Reports weakness Psychiatric: Psychiatric: Reports no additional psychiatric complaints Endocrine: Endocrine: Reports fatigue and Denies palpitations [facility] Family History Family History Mother Cancer Father Heart attack Surgical History Surgical History History of adenoidectomy History of appendectomy History of cardiac cath History of section History of cholecystectomy Hx of hernia repair Hx of tonsillectomy Social History Social History Household Members: Children Housing: House Do you presently have visiting nurse or other home services: Yes Alcohol intake: never Patient Tobacco Use Status: Former Tobacco user Quit Date: 11/18/03 Years Smoked: 30 +/- e-Cigarette/Vaping Use: Never Used Second Hand Smoke Exposure: No Substance Use Type: IV Drugs Meds Allergies Allergy/AdvReac Type Severity Reaction Status Date / Time atorvastatin [From LIPITOR] Allergy Unknown STOMACH Verified 11/19/22 08:24 ISSUES Active Medications: Current Medications Acetaminophen (Acetaminophen 325 Mg Tablet) 650 mg PO Q6H PRN PRN Reason: Pain, Mild (Pain Scale 1-3) Acetaminophen (Acetaminophen 325 Mg Tablet) 325 mg PO BID PRN PRN Reason: Pain, Severe (Pain Scale 7-10) Albuterol Sulfate (Albuterol Sulfate 90 Mcg 8 Gm Inhaler) 2 puff INHALE Q4H PRN PRN Reason: Respiratory Distress Aspirin (Aspirin Enteric Coated 81 Mg Tablet.Dr) 81 mg PO DAILY [facility] Atorvastatin Calcium (Atorvastatin Calcium 40 Mg Tablet) 40 mg PO BEDTIME [facility] Last Admin: 11/19/22 20:29 Dose: 40 mg Cyanocobalamin (Cyanocobalamin (Vitamin B-12) 1,000 Mcg Tablet) 1,000 mcg PO DAILY [facility] Last Admin: 11/20/22 11:29 Dose: 1,000 mcg Docusate Sodium (Docusate Sodium 100 Mg Capsule) 100 mg PO DAILY PRN PRN Reason: Constipation Famotidine (Famotidine 20 Mg Tablet) 40 mg PO BID [facility] Last Admin: 11/20/22 11:25 Dose: 40 mg Glucose (Glucose Gel 15 Gm Gel..Gram.) 15 gm PO Q15M PRN; Protocol PRN Reason: per Hypoglycemia Standing Ord. Dextrose (D10) 250 mls @ 750 mls/hr IV Q15M PRN; Protocol PRN Reason: per Hypoglycemia Standing Ord. Ceftriaxone Sodium 1 gm/ (Sodium Chloride) 50 mls @ 100 mls/hr IV Q24H [facility] Last Admin: 11/20/22 11:31 Dose: 100 mls/hr Insulin Human Lispro (Insulin Lispro 100 Unit/Ml 3 Ml Vial) 0 unit SUBCUT QIDACHS [facility]; Protocol Last Admin: 11/20/22 10:20 Dose: Not Given Latanoprost (Latanoprost 0.005 % Ophth Danni 2.5 Ml Drops) 1 drop EYE-BOTH BEDTIME [facility] Last Admin: 11/19/22 20:30 Dose: 1 drop Levetiracetam (Levetiracetam 250 Mg Tablet) 750 mg PO BID [facility] Last Admin: 11/20/22 11:26 Dose: 750 mg Levothyroxine Sodium (Levothyroxine Sodium 112 Mcg Tablet) 112 mcg PO DAILY@0600 [facility] Last Admin: 11/20/22 05:20 Dose: 112 mcg Magnesium Oxide (Magnesium Oxide 400 Mg Tablet) 400 mg PO DAILY [facility] Last Admin: 11/20/22 11:29 Dose: 400 mg Melatonin (Melatonin 3 Mg Tablet) 9 mg PO BEDTIME [facility] Last Admin: 11/19/22 20:28 Dose: 9 mg Mirabegron (Mirabegron 50 Mg Tab.Er.24h) 50 mg PO DAILY [facility] Last Admin: 11/20/22 11:31 Dose: 50 mg Ondansetron HCl (Ondansetron Hcl 4 Mg/2 Ml Vial) 4 mg IVPUSH Q8H PRN PRN Reason: Nausea and Vomiting Oxycodone HCl (Oxycodone Hcl Immed Release 5 Mg Tablet) 5 mg PO BID PRN PRN Reason: Pain (Scale Score 7-10) Pantoprazole Sodium (Pantoprazole Sodium 40 Mg/10 Ml Vial) 40 mg IVPUSH BID@0630,1630 [facility] Last Admin: 11/20/22 05:20 Dose: 40 mg Pharmacy Consult (Consult Rx Perform Med Rec) 1 each MISCELLANE ONCE PRN PRN Reason: Consult order Pharmacy Consult (Consult Rx Perform Med Rec) 1 each MISCELLANE ONCE PRN PRN Reason: Consult order Sodium Chloride (0.9 % Sodium Chloride Flush 3 Ml Syringe) 3 ml IVFLUSH QSHIFT [facility] Last Admin: 11/20/22 11:42 Dose: 3 ml Home Medications Medication Instructions Recorded Confirmed Last Taken Type albuterol sulfate 90 mcg/actuation 2 puff inhalation Q4H PRN 09/30/20 11/19/22 Unknown History aerosol inhaler Respiratory Distress aspirin 81 mg tablet,delayed 81 mg PO DAILY 09/30/20 11/19/22 11/18/22 History release (Adult Low Dose Aspirin) latanoprost 0.005 % eye drops 1 drp ophthalmic (eye) BEDTIME 09/30/20 11/19/22 11/18/22 History omeprazole 20 mg capsule,delayed 20 mg PO BID 09/30/20 11/19/22 11/18/22 History release oxycodone-acetaminophen 5 mg-325 1 tab PO BID PRN Pain (Scale Score 09/30/20 11/19/22 Unknown History mg tablet 7-10) acetaminophen 650 mg 1,300 mg PO Q8H PRN Pain 02/24/21 11/19/22 Unknown History tablet,extended release (Tylenol 8 Hour) cholecalciferol (vitamin D3) 50 50 mcg PO DAILY 02/24/21 11/19/22 11/18/22 History mcg (2,000 unit) capsule magnesium 250 mg tablet 500 mg PO DAILY 02/24/21 11/19/22 11/18/22 History milk thistle 500 mg capsule 500 mg PO BID 02/24/21 11/19/22 Unknown History zinc 50 mg tablet 50 mg PO DAILY 02/24/21 11/19/22 11/18/22 History cyanocobalamin (vitamin B-12) 1,000 mcg PO DAILY 03/16/22 11/19/22 11/18/22 History 1,000 mcg tablet levothyroxine 112 mcg tablet 112 mcg PO DAILY 03/16/22 11/19/22 11/18/22 History metformin 500 mg tablet 500 mg PO BID 03/16/22 11/19/22 11/18/22 History biotin 5 mg capsule 5 mg PO DAILY 05/04/22 11/19/22 11/18/22 History melatonin 10 mg capsule 10 mg PO BEDTIME 05/04/22 11/19/22 Unknown History ticagrelor 90 mg tablet (Brilinta) 90 mg PO BID 05/04/22 11/19/22 11/18/22 History atorvastatin 40 mg tablet 40 mg PO DAILY 06/16/22 11/19/22 11/18/22 History mirabegron 50 mg tablet,extended 50 mg PO DAILY 06/16/22 11/19/22 11/18/22 History release 24 hr (Myrbetriq) famotidine 40 mg tablet 40 mg PO BID 09/07/22 11/19/22 11/18/22 History ascorbic acid (vitamin C) 500 mg 500 mg PO DAILY 11/19/22 11/19/22 11/18/22 History tablet betamethasone valerate 0.1 % 1 appl topical DAILY 11/19/22 11/19/22 11/18/22 History topical cream levetiracetam 750 mg tablet 750 mg PO BID 11/19/22 11/19/22 11/18/22 History (Keppra) loperamide 2 mg tablet 2 mg PO QID PRN LOOSE STOOLS 11/19/22 11/19/22 Unknown History naloxone 4 mg/actuation nasal spray 4 mg intranasal Q2M PRN OPIOD 11/19/22 11/19/22 Unknown History OVERDOSE peg 400-propylene glycol (PF) 0.4 1 drp ophthalmic (eye) BID 11/19/22 11/19/22 11/18/22 History %-0.3 % eye drops in a dropperette (Systane (PF)) simethicone 125 mg chewable tablet 125 mg PO TID PRN GAS/BLOATING 11/19/22 11/19/22 Unknown History Physical Exam Vital Signs: Vital Signs: Last Vital Signs Temp 97.3 F 11/20/22 11:02 Pulse 72 11/20/22 11:02 Resp 16 11/20/22 11:02 BP 117/57 L 11/20/22 11:02 Pulse Ox 94 11/20/22 11:02 O2 Del Method Room Air 11/20/22 11:02 BMI result Body Mass Index 25.0 Const: General: cooperative, comfortable, no acute distress, alert, awake and other (Pale) Nutritional Appearance: average body habitus Orientation/consciousness: patient oriented x3 Limitations: no limitations HEENT: Head: Yes normocephalic and Yes atraumatic Neck: Neck: Yes trachea midline, Yes supple and Yes no JVD Resp: Effort & Inspection: normal respiratory effort Auscultation: clear to auscultation bilaterally Cardio: Jugular venous distension: no JVD Palpation: normal PMI Rate: regular rate Rhythm: regular rhythm Heart sounds: S1 normal heart sound present, S2 normal heart sound present, no click, no gallops, no murmurs and no rubs GI: Auscultation: normal bowel sounds Skin: General skin exam: no rashes or lesions noted Neuro: General: patient oriented x3 and no focal motor deficits Extrem: General: Yes no clubbing, cyanosis or edema Objective Labs and Meds 11/20/22 05:58 11/20/22 05:58 Lab results: Laboratory Results - last 24 hr 11/19/22 11/19/22 11/19/22 11:56 11:56 16:44 WBC RBC Hgb Hct MCV MCH MCHC RDW Plt Count MPV Absolute Nucleated RBC Nucleated RBC % (auto) Sodium Potassium Chloride Carbon Dioxide Anion Gap BUN Creatinine Estim Creat Clear Calc Estimated GFR POC Glucose 129 H Random Glucose Lactic Acid 1.5 Calcium Blood Type B Positive Antibody Screen NEGATIVE Crossmatch See Detail 11/19/22 11/20/22 11/20/22 20:37 05:58 05:58 WBC 10.5 RBC 3.99 L Hgb 9.2 L D Hct 30.2 L D MCV 75.7 L MCH 23.1 L MCHC 30.5 L RDW 19.6 H Plt Count 350 MPV 9.9 Absolute Nucleated RBC 0.000 Nucleated RBC % (auto) 0.0 Sodium 140 Potassium 4.1 Chloride 110 H Carbon Dioxide 24 Anion Gap 10 L BUN 13 Creatinine 0.59 Estim Creat Clear Calc 67.5 Estimated GFR > 60 POC Glucose 133 H Random Glucose 110 Lactic Acid Calcium 8.5 D Blood Type Antibody Screen Crossmatch 11/20/22 11/20/22 07:12 10:54 WBC RBC Hgb Hct MCV MCH MCHC RDW Plt Count MPV Absolute Nucleated RBC Nucleated RBC % (auto) Sodium Potassium Chloride Carbon Dioxide Anion Gap BUN Creatinine Estim Creat Clear Calc Estimated GFR POC Glucose 112 154 H Random Glucose Lactic Acid Calcium Blood Type Antibody Screen Crossmatch Imaging Radiologist's impression: Impressions Abdomen/Pelvis CT 11/19/22 13:53 IMPRESSION: * No specific source of gastrointestinal bleeding is identified. Diverticula of the descending and sigmoid colon without evidence of diverticulitis. * No evidence of abdominal or pelvic mass. No lymphadenopathy. * Common bile duct is mildly dilated, status post cholecystectomy. * Small stones of the left kidney. No hydronephrosis. There are regions of chronic cortical atrophy of each kidney, possibly sequela of remote pyelonephritis. No acute renal abnormality. Assessment and Plan (1) Preoperative cardiovascular examination: Status: Acute Preoperative cardiovascular risk stratification for GI procedures which are consider low risk procedure. Patient has had PCI with revascularization in 6 months with no recurrent symptoms suggestive angina. She obviously requires GI procedure to identify source of bleeding and treat appropriately. At current time she is within the 6 month window since her last PCI although she has had multiple bouts of what appears to be melena and significant anemia. It is my opinion that her risk of GI bleed supersedes a risk of stent thrombosis and is okay to with hold her dual antiplatelet therapy for 5 days prior to planned GI procedure. He has been told that she can take aspirin around the time her GI procedure as per her. If this is possible I think this will reduce her overall risk of stent thrombosis. We discussed about the clinical conundrum with her and she understands. (2) CAD (coronary artery disease): Status: Acute Prior CAD with multi vessel PCI in the past. Last stenting within the last 6 months, 06/02/2022 being the last stenting procedure. She has not had any recurrent angina since then. Currently her dual antiplatelet therapy has been withheld appropriately. Can resume aspirin. Aggressive GI prophylaxis for prevent Ng of recurrent bleeding. Continue high-intensity statin therapy. Continue current antihypertensive, blood pressure is optimized. Will sign of the case. Will follow with you as need be. Thank you for allowing me to partake in her care Time Spent With Patient Time: Total time managing care of this patient today ____ minutes. Procedures Date of Service Date of Service: 11/20/22
[2022-11-20] MEDS: Aspirin Enteric Coated 81 MG TABLET.DR PO (13:10)
[2022-11-20] MEDS: Insulin Lispro 100 UNIT/ML 3 ML VIAL SUBCUT (13:10)
--- NOTE | 2022-11-20 14:10 | MHC.CM.PN ---
Addendum entered by Nicole Ye 11/20/22 14:21: A copy of the patients HCP has been requested. She has not been vaccinated for covid. Original Note: DX MONSE lives with son. Patient requires assist w adls. [employer] provides [employer] services. She uses a walker prn for appointments. She does not use the walker inside. She uses the furniture in home to steady gait DP home resume [employer] services. Her [employer] will provide transportation at discharge.
[2022-11-20 16:29] LABS: Glucose, Whole Blood 126 mg/dL (60-115)
[2022-11-20 20:58] LABS: Glucose, Whole Blood 136 mg/dL (60-115)
[2022-11-20] MEDS: Atorvastatin Calcium 40 MG TABLET PO (21:21)
[2022-11-20] MEDS: Melatonin 3 MG TABLET 9 MG PO (21:22)
[2022-11-20] MEDS: Acetaminophen 325 MG TABLET PO (21:23)
[2022-11-20] MEDS: Latanoprost 0.005 % Ophth Sol 2.5 ML DROPS 1 DROP EYE-BOTH (21:29)
[2022-11-21 03:26] VITALS: BP 160/71; PULSE 83; RESP 18; TEMP 36.1; O2SAT 96
[2022-11-21 07:12] VITALS: BP 150/65; PULSE 74; RESP 18; TEMP 36.4; O2SAT 98
[2022-11-21 07:22] LABS: Hematocrit 32.6 % (37.0-47.0); Hemoglobin 10.1 g/dl (12.0-16.0); Mean Corpuscular Hemoglobin 23.6 pg (27.0-33.0); Mean Corpuscular Volume 76.2 fL (80.0-98.0); Mean Platelet Volume 9.7 fL (9.4-12.3); Platelet Count 368 X10*3/uL (160-400); Red Blood Count 4.28 X10*6/uL (4.20-5.50); Red Cell Distribution Width 19.7 % (11.0-16.0); White Blood Count 7.3 X10*3/uL (4.8-10.8)
[2022-11-21 07:33] LABS: Glucose, Whole Blood 127 mg/dL (60-115)
[2022-11-21 07:46] LABS: Anion Gap 12 (12-20); Blood Urea Nitrogen 13 mg/dL (9-16); Calcium 8.7 mg/dL (8.4-10.2); Carbon Dioxide 26 mmol/L (22-29); Chloride 109 mmol/L (96-108); Creatinine Clr Calc Pharmacy 61.2; Estimated Glomerular Filt Rate > 60; Glucose Random 123 mg/dL (60-115); Potassium 3.9 mmol/L (3.3-5.1); Sodium 143 mmol/L (135-145)
[2022-11-21] MEDS: Magnesium Oxide 400 MG TABLET PO (09:12)
[2022-11-21] MEDS: levETIRAcetam 250 MG TABLET 750 MG PO (09:12)
[2022-11-21] MEDS: Famotidine 20 MG TABLET 40 MG PO (09:12)
[2022-11-21] MEDS: Aspirin Enteric Coated 81 MG TABLET.DR PO (09:12)
[2022-11-21] MEDS: Mirabegron 50 MG TAB.ER.24H PO (09:12)
[2022-11-21] MEDS: Cyanocobalamin (Vitamin B-12) 1,000 MCG TABLET 1000 MCG PO (09:12)
[2022-11-21] MEDS: 0.9 % Sodium Chloride Flush 3 ML SYRINGE IVFLUSH (09:13)
--- NOTE | 2022-11-21 09:59 | HO.PM.IMPN ---
Subjective Subjective Date of Service: 11/21/22 Interval History: Seen and evaluated Feels better, no reported bleeding Hb recovered to 10 after transfusion No other overnight events Review of Systems Review of Systems: Yes all other systems are reviewed and are negative Physical Exam Vital Signs: Vital Signs: Last Vital Signs Temp 97.5 F 11/21/22 07:12 Pulse 74 11/21/22 07:12 Resp 18 11/21/22 07:12 BP 150/65 H 11/21/22 07:12 Pulse Ox 98 11/21/22 07:12 O2 Del Method Room Air 11/21/22 07:12 BMI result Body Mass Index 25.0 Const: Other: Constitutional : Awake, interactive, not in distress Neck : Normal inspection, Supple Cardiovascular : RRR, no JVP, no lower extremity edema Respiratory : good bilateral air entry, no crackles, wheezes or rhonchi Gastrointestinal: soft, lax, Normal bowel sounds, Non tender Skin : Warm, Dry Neurological : Alert & oriented x3, No focal deficit Objective Data Active Medications Acetaminophen (Acetaminophen 325 Mg Tablet) 650 mg PO Q6H PRN PRN Reason: Pain, Mild (Pain Scale 1-3) Acetaminophen (Acetaminophen 325 Mg Tablet) 325 mg PO BID PRN PRN Reason: Pain, Severe (Pain Scale 7-10) Last Admin: 11/20/22 21:23 Dose: 325 mg Documented By: QIAN Albuterol Sulfate (Albuterol Sulfate 90 Mcg 8 Gm Inhaler) 2 puff INHALE Q4H PRN PRN Reason: Respiratory Distress Aspirin (Aspirin Enteric Coated 81 Mg Tablet.) 81 mg PO DAILY [facility] Last Admin: 11/21/22 09:12 Dose: 81 mg Documented By: BETH Atorvastatin Calcium (Atorvastatin Calcium 40 Mg Tablet) 40 mg PO BEDTIME [facility] Last Admin: 11/20/22 21:21 Dose: 40 mg Documented By: QIAN Cyanocobalamin (Cyanocobalamin (Vitamin B-12) 1,000 Mcg Tablet) 1,000 mcg PO DAILY [facility] Last Admin: 11/21/22 09:12 Dose: 1,000 mcg Documented By: BETH Docusate Sodium (Docusate Sodium 100 Mg Capsule) 100 mg PO DAILY PRN PRN Reason: Constipation Famotidine (Famotidine 20 Mg Tablet) 40 mg PO BID [facility] Last Admin: 11/21/22 09:12 Dose: 40 mg Documented By: BETH Glucose (Glucose Gel 15 Gm Gel..Gram.) 15 gm PO Q15M PRN; Protocol PRN Reason: per Hypoglycemia Standing Ord. Dextrose (D10) 250 mls @ 750 mls/hr IV Q15M PRN; Protocol PRN Reason: per Hypoglycemia Standing Ord. Ceftriaxone Sodium 1 gm/ (Sodium Chloride) 50 mls @ 100 mls/hr IV Q24H [facility] Last Infusion: 11/20/22 16:43 Dose: 0 mls/hr Documented By: EDWIGE Insulin Human Lispro (Insulin Lispro 100 Unit/Ml 3 Ml Vial) 0 unit SUBCUT QIDACHS [facility]; Protocol Last Admin: 11/21/22 09:05 Dose: Not Given Documented By: BETH Non-Admin Reason: No Insulin Coverage Latanoprost (Latanoprost 0.005 % Ophth Danni 2.5 Ml Drops) 1 drop EYE-BOTH BEDTIME [facility] Last Admin: 11/20/22 21:29 Dose: 1 drop Documented By: QAIN Levetiracetam (Levetiracetam 250 Mg Tablet) 750 mg PO BID [facility] Last Admin: 11/21/22 09:12 Dose: 750 mg Documented By: BETH Levothyroxine Sodium (Levothyroxine Sodium 112 Mcg Tablet) 112 mcg PO DAILY@0600 [facility] Last Admin: 11/21/22 05:45 Dose: Not Given Documented By: QIAN Non-Admin Reason: NPO Magnesium Oxide (Magnesium Oxide 400 Mg Tablet) 400 mg PO DAILY [facility] Last Admin: 11/21/22 09:12 Dose: 400 mg Documented By: BETH Melatonin (Melatonin 3 Mg Tablet) 9 mg PO BEDTIME [facility] Last Admin: 11/20/22 21:22 Dose: 9 mg Documented By: QIAN Mirabegron (Mirabegron 50 Mg Tab.Er.24h) 50 mg PO DAILY [facility] Last Admin: 11/21/22 09:12 Dose: 50 mg Documented By: BETH Ondansetron HCl (Ondansetron Hcl 4 Mg/2 Ml Vial) 4 mg IVPUSH Q8H PRN PRN Reason: Nausea and Vomiting Oxycodone HCl (Oxycodone Hcl Immed Release 5 Mg Tablet) 5 mg PO BID PRN PRN Reason: Pain (Scale Score 7-10) Last Admin: 11/20/22 21:22 Dose: 5 mg Documented By: QIAN Pantoprazole Sodium (Pantoprazole Sodium 40 Mg/10 Ml Vial) 40 mg IVPUSH BID@0630,1630 [facility] Last Admin: 11/21/22 06:29 Dose: Not Given Documented By: QIAN Non-Admin Reason: NPO Pharmacy Consult (Consult Rx Perform Med Rec) 1 each MISCELLANE ONCE PRN PRN Reason: Consult order Pharmacy Consult (Consult Rx Perform Med Rec) 1 each MISCELLANE ONCE PRN PRN Reason: Consult order Sodium Chloride (0.9 % Sodium Chloride Flush 3 Ml Syringe) 3 ml IVFLUSH QSHIFT [facility] Last Admin: 11/21/22 09:13 Dose: 3 ml Documented By: PHANLYM Labs 11/21/22 06:50 11/21/22 06:50 Labs: Laboratory Results - last 24 hr 11/20/22 11/20/22 11/20/22 10:54 16:04 20:50 MCV MCH MCHC RDW Plt Count MPV Absolute Nucleated RBC Nucleated RBC % (auto) Anion Gap Estim Creat Clear Calc Estimated GFR POC Glucose 154 H 126 H 136 H Random Glucose Calcium 11/21/22 11/21/22 11/21/22 06:50 06:50 07:15 MCV 76.2 L MCH 23.6 L MCHC 31.0 RDW 19.7 H Plt Count 368 MPV 9.7 Absolute Nucleated RBC 0.000 Nucleated RBC % (auto) 0.0 Anion Gap 12 Estim Creat Clear Calc 61.2 Estimated GFR > 60 POC Glucose 127 H Random Glucose 123 H Calcium 8.7 Microbiology Microbiology Results: Microbiology 11/19/22 Unknown Urine Culture - Final Urine clean catch - Urine ojeda top 11/19/22 11:56 Blood Culture - Preliminary Blood - Venous No growth after 24 hours. 11/19/22 11:56 Blood Culture - Preliminary Blood - Venous No growth after 24 hours. Assessment and Plan (1) Symptomatic anemia: Status: Acute (2) Acute UTI: Status: Acute Plan Pt is a 77-year-old female with a PMH significant for?CAD with drug-eluting stents in proximal and mid LAD and proximal RCA, 3 MIs, 3 CVAs, multiple TIAs, seizure disorder, Arcos's esophagus, hypothyroidism, [id number] diabetes, and glaucoma who presents to the ED with?generalized weakness and after routine blood work by PCP showed very low hemoglobin. Pt will be admitted to the hospital for further treatment and workup of anemia likely secondary to acute GI bleed and acute UTI. Symptomatic Anemia in the setting of GI bleed Hb improved after [address] Abdomen negative for any masses Hold ticagrelor for now for 5 days, last on 11/18. resume ASA per cardiology Protonix IV b.i.d. GI to do EGD , Colonoscopy in 5 days waiting Brilinta to clear out. Cardiology input apreciated Follow H&H UTI treat with Ceftriaxone, started on 11/19/2022 Mixed addison in urine cultures weight loss Duplex to r\o mesentric ischemia Hx oF CVA resume asipirin Coninue statin CAD, hx of muliple MIs Hold ticagrelor Cardiology consult Monitor on telemetry Oog-osmeexz-fbujidjnt diabetes Hold metformin Sliding-scale insulin Seizure disorder Continue Keppra Hypothyroidism Continue levothyroxine HTN Hold antihypertensives for now, patient's BP soft Resume antihypertensives as necessary Diet Patient is gluten intolerant Wound free, cardiac, diabetic diet Full Code DVT Prophylaxis: Pneumatic boots Pt will require a hospitalization of overnight for further treatment and workup of anemia likely secondary to acute GI bleed and acute UTI. Time Spent With Patient Time: Total time managing care of this patient today ____ minutes. Quality Stroke Does the patient have a stroke diagnosis?: No VTE Prior VTE?: No VTE Risk Level:: Medical - moderate - high VTE Device Contraindication: N/A - Device Ordered VTE Drug Contraindication: Treatment Not Indicated
[2022-11-21 11:22] VITALS: BP 135/62; PULSE 72; RESP 18; TEMP 36.3; O2SAT 95
[2022-11-21 11:35] LABS: Glucose, Whole Blood 136 mg/dL (60-115)
[2022-11-21] MEDS: cefTRIAXone sodium 1 GM in 0.9 % Sodium Chloride 50 ML IV (12:22)
--- NOTE | 2022-11-21 14:18 | MHC.CM.PN ---
DP: PT HAS BEEN MEDICALLY CLEARED FOR DC HOME, NO SERVICES. LIZETH BOOKED FOR 3 PM, ACCOMPANIED BY SON GUI.
--- NOTE | 2022-11-21 14:27 | P.DS_ITS ---
DS: Providers Provider Date of Service: 11/21/22 Date of admission: 11/19/22 13:46 Primary care physician: Eddie Marshall MD Consults: 11/19/22 13:11 Consult to Cardiology Routine Consulting Provider: [facility] [place] [facility] Reason for consultation: Hx of CAD w/NICOLAS on ticagrelor with GI bleed 11/19/22 13:13 Consult to Gastroenterology Routine Consulting Provider: Julia Li Reason for consultation: Anemia, likely lower GI bleed, on asa and ticagrelor DS: Diagnosis Discharge Diagnosis (1) Symptomatic anemia: Status: Acute (2) Acute UTI: Status: Acute (3) Lower GI bleed: Status: Acute DS: Summary Hospital Course Hospital Course: Admission note HPI Pt is a 77-year-old female with a PMH significant for?CAD with drug-eluting stents in proximal and mid LAD and proximal RCA, 3 MIs, 3 CVAs, multiple TIAs, seizure disorder, Arcos's esophagus, hypothyroidism, [id number] diabetes, and glaucoma who presents to the ED with?generalized weakness and after routine blood work by PCP showed very low hemoglobin.? The patient has a complicated PMH and numerous chronic complaints, but patient states that she has been feeling worse than normal the past couple of weeks with generalized weakness and fatigue.? Patient notes she has also experienced nonbloody diarrhea for the past 2 weeks with up to 510 episodes per day and occasional fecal incontinence.? Patient experienced similar symptoms earlier in the year when she had diarrhea for around 1 month.? Patient then switched to a gluten free diet which resolved diarrhea until 2 weeks ago.? Patient reports chronic abdominal pain she attributes to a complicated .? Experiences pain particularly postprandial and on her left side.? Patient currently is not experiencing any abdominal pain or cramping.? Patient also notes she has had a 30 lb unintentional weight loss within the past 6 months that she attributes to reduced p.o. intake.? Patient states she is often incontinent of urine and has a pessary in place, but notes she has had some dysuria and has a long history of UTIs.? Of note, patient is at high risk for bleeding as she is on both aspirin and ticagrelor.? Patient is not currently experiencing nausea, vomiting, abdominal pain.? No current chest pain, pressure, palpitations.? Chronic shortness of breath. In the ED patient was afebrile and slightly hypotensive at 127/54. Labs were significant for leukocytosis of 13.9, microcytic anemia of H&H of 7.2/24.6.? Electrolytes WNL.? Troponin negative.? Hepatic function baseline.? Stool was positive for occult blood.? UA positive for UTI. Pt was treated with 1 unit PRBCs, ceftriaxone, and IVF. Pt will be admitted to the hospital for further treatment and workup of anemia likely secondary to acute GI bleed and acute UTI. Hospital course The patient was admitted for Symptomatic Anemia in the setting of GI bleed with drop of Hb from baseline of 14 to 7 with dyspnea and fatigue. Hb improved after [address] Abdomen negative for any masses. Started on Protonix IV. Seen by GI who recommended OP EGD and colonoscopy after holding Brilinta for 5 days. last dose on 11/18. seen by cardiology team given her recent PCI who recommended to continue ASA and hold Brilinta until procedure is done. she was able to tolerate diet. Transport arranged to pick her up for procedures on . Dr Li scheduled her and sent the colon prep script to pharmacy. Treated for UTI with Ceftriaxone. to finish Ceftin at home. Mixed addison in urine cultures. reported weight loss over the last few months with symptoms concerning for possible mesentric ischemia. CT scan showed mild mesentric arteries athersclerosis. Duplex showed high velocity which might indicate mesentric ischemia. discussed with GI who recommended that she will need to be seen by vascular surgeon Domonique as Outpatient. referral order placed. to be followed by PCP. Hold Brilinta until Colonoscopy on Continue antibiotics as prescribed Time Spent with Patient Time attestation: Total time managing care of this patient today ____ minutes. Discharge coordination time: Greater than 30 minutes Quality: Safe Use of Opioids Does Pt have an Active Cancer Diagnosis on the Problem List?: No Quality: Stroke Does the patient have a stroke diagnosis?: No Physical Exam Vital Signs: Vital Signs: Last Vital Signs Temp 97.4 F 11/21/22 11:22 Pulse 72 11/21/22 11:22 Resp 18 11/21/22 11:22 BP 135/62 11/21/22 11:22 Pulse Ox 95 11/21/22 11:22 O2 Del Method Room Air 11/21/22 11:22 BMI result Body Mass Index 25.0 Const: Other: Constitutional : Awake, interactive, not in distress Neck : Normal inspection, Supple Cardiovascular : RRR, no JVP, no lower extremity edema Respiratory : good bilateral air entry, no crackles, wheezes or rhonchi Gastrointestinal: soft, lax, Normal bowel sounds, Non tender Skin : Warm, Dry Neurological : Alert & oriented x3, No focal deficit DS: Data Data Completed and Pending Labs on day of discharge: Laboratory Results - last 24 hr 11/20/22 11/20/22 11/21/22 16:04 20:50 06:50 WBC 7.3 RBC 4.28 Hgb 10.1 L Hct 32.6 L MCV 76.2 L MCH 23.6 L MCHC 31.0 RDW 19.7 H Plt Count 368 MPV 9.7 Absolute Nucleated RBC 0.000 Nucleated RBC % (auto) 0.0 Sodium Potassium Chloride Carbon Dioxide Anion Gap BUN Creatinine Estim Creat Clear Calc Estimated GFR POC Glucose 126 H 136 H Random Glucose Calcium 11/21/22 11/21/22 11/21/22 06:50 07:15 11:26 WBC RBC Hgb Hct MCV MCH MCHC RDW Plt Count MPV Absolute Nucleated RBC Nucleated RBC % (auto) Sodium 143 Potassium 3.9 Chloride 109 H Carbon Dioxide 26 Anion Gap 12 BUN 13 Creatinine 0.65 Estim Creat Clear Calc 61.2 Estimated GFR > 60 POC Glucose 127 H 136 H Random Glucose 123 H Calcium 8.7 Preliminary micro results at discharge 11/19/22 11:56 Blood Culture - Preliminary Blood - Venous No growth after 48 hours. 11/19/22 11:56 Blood Culture - Preliminary Blood - Venous No growth after [address] scan - abdomen: Radiologist's impression: ITS Impressions Abdomen/Pelvis CT 11/19/22 13:53 IMPRESSION: * No specific source of gastrointestinal bleeding is identified. Diverticula of the descending and sigmoid colon without evidence of diverticulitis. * No evidence of abdominal or pelvic mass. No lymphadenopathy. * Common bile duct is mildly dilated, status post cholecystectomy. * Small stones of the left kidney. No hydronephrosis. There are regions of chronic cortical atrophy of each kidney, possibly sequela of remote pyelonephritis. No acute renal abnormality. Mesenteric US 11/21/22 07:36 IMPRESSION: Exam limited by bowel gas. Elevated velocities in the superior mesenteric and inferior mesenteric arteries are nonspecific. By velocity arterial, these are consistent with hemodynamically significant stenoses. However, on the CT from 11/19/2022, mild atherosclerosis is seen involving the celiac, superior mesenteric, and inferior mesenteric arteries, but there is no evidence of hemodynamically significant stenosis. Discharge Plan Discharge Anticipated Discharge Date/Time: 11/21/22 14:15 Patient Disposition: Home, Self-Care Discharge Diagnosis: Symptomatic anemia Urine infection Referrals: Riley Youssef MD [Physician] - 2 Weeks (77 yrs old with hx of CAD s\p 3 stents, CVA with symptoms of mesenteric ischemia and abnormal mesenteric duplex. ) Name,MD Eddie [Primary Care Provider] - 1 Week Discharge Medications: New cefuroxime axetil 250 mg tablet 250 mg PO BID Qty: 6 0RF Continued amlodipine 2.5 mg tablet 2.5 mg PO DAILY 90 Days Qty: 90 2RF peg 3350-electrolytes [Golytely] 236-22.74-6.74 -5.86 gram recon soln 240 ml PO Q10M Qty: 4000 0RF Rx Instructions: as per split prep instructions, until fecal effluent is clear ascorbic acid (vitamin C) 500 mg Tablet 500 mg PO DAILY betamethasone valerate 0.1 % Cream 1 appl TOPICAL DAILY levetiracetam [Keppra] 750 mg Tablet 750 mg PO BID loperamide 2 mg Tablet 2 mg PO QID PRN (Reason: LOOSE STOOLS) Rx Instructions: TAKE 1 TABLET AFTER 1ST LOOSE STOOL AND 1 TAB 2 MG AFTER EACH NEXT BOWEL MOVEMENT, DO NOT EXCEED 16 MG IN 24 HRS naloxone 4 mg/actuation [place],Non-Aerosol 4 mg INTRANASAL Q2M PRN (Reason: OPIOD OVERDOSE) Rx Instructions: spray 1 dose into ONE nostril; alternate nostrils w each dose until help arrives Systane (PF) 0.4-0.3 % Dropperette 1 drp OPHTHALMIC (EYE) BID simethicone 125 mg Tablet,Chewable 125 mg PO TID PRN (Reason: GAS/BLOATING) omeprazole 20 mg capsule,delayed release(DR/EC) 20 mg PO BID oxycodone-acetaminophen 5-325 mg tablet 1 tab PO BID PRN (Reason: Pain (Scale Score 7-10)) latanoprost 0.005 % drops 1 drp ophthalmic (eye) BEDTIME albuterol sulfate 90 mcg/actuation HFA aerosol inhaler 2 puff inhalation Q4H PRN (Reason: Respiratory Distress) aspirin [Adult Low Dose Aspirin] 81 mg tablet,delayed release (DR/EC) 81 mg PO DAILY metformin 500 mg tablet 500 mg PO BID acetaminophen [Tylenol 8 Hour] 650 mg tablet extended release 1,300 mg PO Q8H PRN (Reason: Pain) cholecalciferol (vitamin D3) 50 mcg (2,000 unit) capsule 50 mcg PO DAILY magnesium 250 mg tablet 500 mg PO DAILY milk thistle 500 mg capsule 500 mg PO BID Rx Instructions: give with meal/snack zinc 50 mg tablet 50 mg PO DAILY atorvastatin 40 mg tablet 40 mg PO DAILY Myrbetriq 50 mg tablet extended release 24 hr 50 mg PO DAILY levothyroxine 112 mcg tablet 112 mcg PO DAILY cyanocobalamin (vitamin B-12) 1,000 mcg tablet 1,000 mcg PO DAILY melatonin 10 mg capsule 10 mg PO BEDTIME biotin 5 mg capsule 5 mg PO DAILY famotidine 40 mg tablet 40 mg PO BID Held Brilinta 90 mg tablet 90 mg PO BID Hold Instructions: Until Colonoscopy is done Discharge Orders: Discharge Order (Routine); Ordered 11/21/22 Ordered By: Roya Reis Diet: Advance to usual diet Activity on Discharge: As tolerated Stand Alone Forms: Patient Portal Discharge page Activity Restrictions/Additional Instructions: Three Days Before Your Procedure * Please call us if you need to cancel or reschedule your colonoscopy at least 3 days before your procedure. * water softener service supervisor your prep solution from the pharmacy. Two Days Before Your Procedure * Mix the prep solution 2 days before your colonoscopy, and refrigerate. Some people like to drink it cold. The Day Before Your Procedure DO NOT CONSUME any of the following: * Solid foods * Diet or Sugar free products (even diabetics) * Anything RED, BLUE or PURPLE (the dye can interfere with test) * Alcohol * Dairy products * Juices with pulp YOU MAY CONSUME: * Gatorade or other sports electrolyte drinks * Clear juices like apple, white grape or white cranberry * Sodas such as selwyn esther, Sprite, 7-UP, seltzer * Popsicles, Jell-o, Yoruba Ices (green or yellow) * Clear chicken bouillon At 5 p.m. The Day Before Your Procedure Begin drinking the colon preparation as follows: * One 8 oz glass every 15 minutes, until the first half is gone * Refrigerate the remaining prep until the morning * If you feel bloated, nausea or full, stop drinking for 15 minutes and walk around, this can help move the fluid through your colon The laxative will cause you to have very loose and watery stools, that?s what we want! 6 Hours BEFORE YOUR SCHEDULED Procedure START TIME * Drink the remaining half of the prep solution * One 8 oz glass every 15 minutes, this may be as early as 2 a.m. * THIS STEP IS VERY IMPORTANT, IT ALLOWS THE DOCTOR TO SEE YOUR COLON WALL FOR ANY ABNORMALITIES * If the doctor cannot see, they could miss something abnormal in your colon The goal when you finish the prep is to have your Bowel Movements clear or yellow clear fluids in the toilet. You should be able to see the bottom of the toilet. The Day of Your Procedure * Do not eat breakfast the day of your procedure or you will be canceled * Take only those Medications you have been instructed to take by your doctor or nurse the morning of your procedure * You MUST have a helper driver home Diabetics: no short acting insulin the day of your colonoscopy, do not take any oral diabetic medications the morning of your colonoscopy. 4 Hours BEFORE YOUR SCHEDULED Procedure START TIME * NOTHING BY MOUTH: NO WATER, GUM or HARD CANDY or the test could be canceled AFTER YOUR Procedure * You SHOULD NOT WORK * You cannot drive for the rest of the day * Some cramping and bloating is normal after, walking around can help move the air out of your colon * Avoid alcohol for 24 hours after your procedure * If you have any questions, please call Helpful tips: * You can use Vaseline, Desitin, etc. on your bottom to reduce redness and irritation from frequent bowel movements * Using flushable wipes instead of toilet paper can also help Care Plan Goals: Read below Health Concerns: Read below Plan of Treatment: Read below Assessment: You were admitted for evaluation of symptomatic anemia likely from GI blood loss. evaluated by [place] dr Li who would like to do Upper and lower endoscopies by after holding your Brilinta. You recieved 2 units of blood with good result. no bleeding noticed while inpatient. Treated with Antibitoics for Urine infection To follow with Dr Youssef as outpatient for evaluation of possible mesenteric ischemia
--- NOTE | 2022-12-06 09:28 | P.CDIM_ITS ---
PROVIDER RESPONSE TEXT: To clarify, the appropriate diagnosis supported by the clinical indicators: Acute blood loss anemia QUERY TEXT: PHYSICIAN'S DOCUMENTATION REQUEST Date of Query: 12/06/2022 09:11 AM EDT Patient Name: Celeste Abad Admit Date: 11/19/2022 Dear Roya Reis, A review of the medical record indicates additional documentation may be needed. Please review below and update the documentation accordingly. Clinical Indicators: PN: 11/21/2022 - Symptomatic anemia in the setting of GI bleed. Hb improved after 2 units of PRBC to 9.2 Fatigue, weakness, stool was positive for occult blood HGB 7.2 HCT 24.6 Transfused 2 units PRBC Based on the above, could you clarify which of the following is the most likely type of anemia you ar e evaluating, treating, and/or monitoring? Acute blood loss anemia Acute blood loss anemia with baseline chronic anemia (specify type) Other Other (explain)Clinically unable to determine (explain)Thank you, Lauryn Trujillo, CCS, CDIS Use of terms such as suspected, likely, concern for, or probable (associated with a specific diagnosi s that is being evaluated, monitored, or treated as if it exists) are acceptable and can be coded in the inpatient se tting, when documented at the time of discharge. Please use your independent medical judgment in providing your response. THIS QUERY IS PART OF THE PERMANENT MEDICAL RECORD
== END 2022-11-21 15:51 | disposition home or self-care (01) | DRG 378 ==
LOC: HO.ED 11:31 → HO.EDOVER 13:51 → HO.S3 14:25 → HO.IMC 14:45
PROVIDERS: Admitting Provider Student in an Organized Health Care Education/Training Program; Emergency Provider Emergency Medicine; PCP Internal Medicine Geriatric Medicine; Visit Provider Student in an Organized Health Care Education/Training Program
DX: K92.2 Gastrointestinal hemorrhage, unspecified (principal); D62 Acute posthemorrhagic anemia; K55.1 Chronic vascular disorders of intestine; N39.0 Urinary tract infection, site not specified; I25.10 Atherosclerotic heart disease of native coronary artery without angina pectoris; Z95.5 Presence of coronary angioplasty implant and graft; E03.9 Hypothyroidism, unspecified; I10 Essential (primary) hypertension; G40.909 Epilepsy, unspecified, not intractable, without status epilepticus; E11.9 Type 2 diabetes mellitus without complications; I25.2 Old myocardial infarction; Z86.73 Personal history of transient ischemic attack (TIA), and cerebral infarction without residual deficits; Z87.891 Personal history of nicotine dependence; Z79.02 Long term (current) use of antithrombotics/antiplatelets; Z79.82 Long term (current) use of aspirin; Z79.84 Long term (current) use of oral hypoglycemic drugs; Z79.890 Hormone replacement therapy; Z79.899 Other long term (current) drug therapy
CPT/HCPCS: 36415; 74177; 80048; 80076; 81001; 82272; 82947; 83605; 83690; 84484; 85025; 85027; 86850; 86900; 86901; 86923; 87040; 87086; 93976; 99222; 99285; J0696; P9016; Q9967

== ENCOUNTER 2022-11-24 12:40 | Day surgery (SDC) | payer OTHER, MEDICAID, SELFPAY ==
--- NOTE | 2022-11-23 09:46 | P.CONAN_ITS ---
Documented by User: Madhuri Silveira NP 11/23/22 10:47 HPI - Anesthesia Eval Consult details Narrative: 77yo F for Upper Endoscopy and Colonoscopy [facility] [place] admit 11/19/22-11/21/22 with anemia. Cardiology consulted - Preoperative cardiovascular risk stratification for GI procedures which are consider low risk procedure.? Patient has had PCI with revascularization in 6 months with no recurrent symptoms suggestive angina.? She obviously requires GI procedure to identify source of bleeding and treat appropriately.? At current time she is within the 6 month window since her last PCI although she has had multiple bouts of what appears to be melena and significant anemia.? It is my opinion that her risk of GI bleed supersedes a risk of stent thrombosis and is okay to with hold her dual antiplatelet therapy for 5 days prior to planned GI procedure.? He has been told that she can take aspirin around the time her GI procedure as per her.? If this is possible I think this will reduce her overall risk of stent thrombosis.? We discussed about the clinical conundrum with her and she understands. [facility] Active Problems Active Problems: All Active Problems (Updated 11/20/22 @ 12:21 by Niles Dao MD) Preoperative cardiovascular examination (Acute) Symptomatic anemia (Acute) Lower GI bleed (Acute) Anemia (Acute) Acute UTI (Acute) Rectal bleed (Acute) Stable angina (Acute) Status post cardiac catheterization (Acute) Status post cardiac catheterization (Acute) Chest pain (Acute) Abnormal nuclear stress test (Acute) Essential hypertension (Acute) CVA (cerebral vascular accident) (Acute) CAD (coronary artery disease) (Acute) Past Medical History Medical History (Updated 11/23/22 @ 09:48 by Madhuri Silveira NP) Anemia CAD (coronary artery disease) CVA (cerebral vascular accident) Essential hypertension Stable angina Family History Family History Mother Cancer Father Heart attack Surgical History Surgical History (Updated 11/23/22 @ 09:48 by Madhuri Silveira NP) History of adenoidectomy History of appendectomy History of cardiac cath History of section History of cholecystectomy Hx of hernia repair Hx of tonsillectomy Status post cardiac catheterization Social History Social History Household Members: Children Housing: House Do you presently have visiting nurse or other home services: Yes Alcohol intake: never Patient Tobacco Use Status: Former Tobacco user Quit Date: 11/18/03 Years Smoked: 30 +/- e-Cigarette/Vaping Use: Never Used Second Hand Smoke Exposure: No Use of substances other than those prescribed or required for medical reasons: Yes Substance Use Type: IV Drugs Substance Use Type Other:: baked in banana bread Are you DNR?: No Advance Directives: No Advance Directives Information Provided: Yes service: No Current occupational status: retired Meds Allergies Allergy/AdvReac Type Severity Reaction Status Date / Time gluten Allergy Unknown Verified 11/24/22 14:20 Home Medications Medication Instructions Recorded Confirmed Last Taken Type albuterol sulfate 90 mcg/actuation 2 puff inhalation Q4H PRN 09/30/20 11/24/22 Unknown History aerosol inhaler Respiratory Distress aspirin 81 mg tablet,delayed 81 mg PO DAILY 09/30/20 11/24/22 11/22/22 History release (Adult Low Dose Aspirin) latanoprost 0.005 % eye drops 1 drp ophthalmic (eye) BEDTIME 09/30/20 11/24/22 11/18/22 History omeprazole 20 mg capsule,delayed 20 mg PO BID 09/30/20 11/24/22 11/24/22 History release oxycodone-acetaminophen 5 mg-325 1 tab PO BID PRN Pain (Scale Score 09/30/20 11/24/22 11/24/22 History mg tablet 7-10) acetaminophen 650 mg 1,300 mg PO Q8H PRN Pain 02/24/21 11/24/22 Unknown History tablet,extended release (Tylenol 8 Hour) cholecalciferol (vitamin D3) 50 50 mcg PO DAILY 02/24/21 11/24/22 11/18/22 History mcg (2,000 unit) capsule magnesium 250 mg tablet 500 mg PO DAILY 02/24/21 11/24/22 11/18/22 History milk thistle 500 mg capsule 500 mg PO BID 02/24/21 11/24/22 Unknown History zinc 50 mg tablet 50 mg PO DAILY 02/24/21 11/24/22 11/18/22 History cyanocobalamin (vitamin B-12) 1,000 mcg PO DAILY 03/16/22 11/24/22 11/18/22 History 1,000 mcg tablet levothyroxine 112 mcg tablet 112 mcg PO DAILY 03/16/22 11/24/22 11/24/22 History metformin 500 mg tablet 500 mg PO BID 03/16/22 11/24/22 11/18/22 History biotin 5 mg capsule 5 mg PO DAILY 05/04/22 11/24/22 11/18/22 History melatonin 10 mg capsule 10 mg PO BEDTIME 05/04/22 11/24/22 Unknown History ticagrelor 90 mg tablet (Brilinta) 90 mg PO BID 05/04/22 11/24/22 11/18/22 History atorvastatin 40 mg tablet 40 mg PO DAILY 06/16/22 11/24/22 11/18/22 History mirabegron 50 mg tablet,extended 50 mg PO DAILY 06/16/22 11/24/22 11/18/22 History release 24 hr (Myrbetriq) famotidine 40 mg tablet 40 mg PO BID 09/07/22 11/24/22 11/18/22 History ascorbic acid (vitamin C) 500 mg 500 mg PO DAILY 11/19/22 11/24/22 11/18/22 History tablet betamethasone valerate 0.1 % 1 appl topical DAILY 11/19/22 11/24/22 11/18/22 History topical cream levetiracetam 750 mg tablet 750 mg PO BID 11/19/22 11/24/22 11/24/22 History ([place]) loperamide 2 mg tablet 2 mg PO QID PRN LOOSE STOOLS 11/19/22 11/24/22 Unknown History naloxone 4 mg/actuation nasal spray 4 mg intranasal Q2M PRN OPIOD 11/19/22 11/24/22 Unknown History OVERDOSE peg 400-propylene glycol (PF) 0.4 1 drp ophthalmic (eye) BID 11/19/22 11/24/22 11/18/22 History %-0.3 % eye drops in a dropperette (Systane (PF)) simethicone 125 mg chewable tablet 125 mg PO TID PRN GAS/BLOATING 11/19/22 11/24/22 11/24/22 History Exam Exam Date and Time: November 23, 2022 0946 Pertinent Lab Results Pertinent Lab Results: Laboratory Tests 11/21/22 11/21/22 06:50 06:50 WBC 7.3 Hgb 10.1 L Hct 32.6 L Plt Count 368 Sodium 143 Potassium 3.9 Chloride 109 H Carbon Dioxide 26 BUN 13 Creatinine 0.65 Narrative Narrative: EKG 08/2022 NSR @ 78 Assessment and Plan Assessment Anesthesia Assessment: Chart Reviewed Documented by User: Aleksandra Yousif MD 11/24/22 14:20 [facility] Past Medical History Medical History (Updated 11/23/22 @ 09:48 by Madhuri Silveira NP) Anemia CAD (coronary artery disease) CVA (cerebral vascular accident) Essential hypertension Stable angina Family History Family History Mother Cancer Father Heart attack Family history of problems with anesthesia: No Surgical History Surgical History (Updated 11/23/22 @ 09:48 by Madhuri Silveira NP) History of adenoidectomy History of appendectomy History of cardiac cath History of section History of cholecystectomy Hx of hernia repair Hx of tonsillectomy Status post cardiac catheterization History of Problems with Anesthesia: No Social History Social History Household Members: Children Housing: House Do you presently have visiting nurse or other home services: Yes Alcohol intake: never Patient Tobacco Use Status: Former Tobacco user Quit Date: 11/18/03 Years Smoked: 30 +/- e-Cigarette/Vaping Use: Never Used Second Hand Smoke Exposure: No Use of substances other than those prescribed or required for medical reasons: Yes Substance Use Type: IV Drugs Substance Use Type Other:: baked in banana bread Are you DNR?: No Advance Directives: No Advance Directives Information Provided: Yes service: No Current occupational status: retired Meds Allergies Allergy/AdvReac Type Severity Reaction Status Date / Time gluten Allergy Unknown Verified 11/24/22 14:20 Home Medications Medication Instructions Recorded Confirmed Last Taken Type albuterol sulfate 90 mcg/actuation 2 puff inhalation Q4H PRN 09/30/20 11/24/22 Unknown History aerosol inhaler Respiratory Distress aspirin 81 mg tablet,delayed 81 mg PO DAILY 09/30/20 11/24/22 11/22/22 History release (Adult Low Dose Aspirin) latanoprost 0.005 % eye drops 1 drp ophthalmic (eye) BEDTIME 09/30/20 11/24/22 11/18/22 History omeprazole 20 mg capsule,delayed 20 mg PO BID 09/30/20 11/24/22 11/24/22 History release oxycodone-acetaminophen 5 mg-325 1 tab PO BID PRN Pain (Scale Score 09/30/20 11/24/22 11/24/22 History mg tablet 7-10) acetaminophen 650 mg 1,300 mg PO Q8H PRN Pain 02/24/21 11/24/22 Unknown History tablet,extended release (Tylenol 8 Hour) cholecalciferol (vitamin D3) 50 50 mcg PO DAILY 02/24/21 11/24/22 11/18/22 History mcg (2,000 unit) capsule magnesium 250 mg tablet 500 mg PO DAILY 02/24/21 11/24/22 11/18/22 History milk thistle 500 mg capsule 500 mg PO BID 02/24/21 11/24/22 Unknown History zinc 50 mg tablet 50 mg PO DAILY 02/24/21 11/24/22 11/18/22 History cyanocobalamin (vitamin B-12) 1,000 mcg PO DAILY 03/16/22 11/24/22 11/18/22 History 1,000 mcg tablet levothyroxine 112 mcg tablet 112 mcg PO DAILY 03/16/22 11/24/22 11/24/22 History metformin 500 mg tablet 500 mg PO BID 03/16/22 11/24/22 11/18/22 History biotin 5 mg capsule 5 mg PO DAILY 05/04/22 11/24/22 11/18/22 History melatonin 10 mg capsule 10 mg PO BEDTIME 05/04/22 11/24/22 Unknown History ticagrelor 90 mg tablet (Brilinta) 90 mg PO BID 05/04/22 11/24/22 11/18/22 History atorvastatin 40 mg tablet 40 mg PO DAILY 06/16/22 11/24/22 11/18/22 History mirabegron 50 mg tablet,extended 50 mg PO DAILY 06/16/22 11/24/22 11/18/22 History release 24 hr (Myrbetriq) famotidine 40 mg tablet 40 mg PO BID 09/07/22 11/24/22 11/18/22 History ascorbic acid (vitamin C) 500 mg 500 mg PO DAILY 11/19/22 11/24/22 11/18/22 History tablet betamethasone valerate 0.1 % 1 appl topical DAILY 11/19/22 11/24/22 11/18/22 History topical cream levetiracetam 750 mg tablet 750 mg PO BID 11/19/22 11/24/22 11/24/22 History (Keppra) loperamide 2 mg tablet 2 mg PO QID PRN LOOSE STOOLS 11/19/22 11/24/22 Unknown History naloxone 4 mg/actuation nasal spray 4 mg intranasal Q2M PRN OPIOD 11/19/22 11/24/22 Unknown History OVERDOSE peg 400-propylene glycol (PF) 0.4 1 drp ophthalmic (eye) BID 11/19/22 11/24/22 11/18/22 History %-0.3 % eye drops in a dropperette (Systane (PF)) simethicone 125 mg chewable tablet 125 mg PO TID PRN GAS/BLOATING 11/19/22 11/24/22 11/24/22 History Exam Airway Mallampati Class: I TM Dist: >3cm Denture: Upper and Lower Heart: rr Lungs: cta Assessment and Plan Assessment Anesthesia Assessment: Anesthesia Plan Discussed Final Anesthetic Review Family History of Problems with Anesthesia: No History of Problems with Anesthesia: No ASA Class: III Final Preanesthetic Review: No Changes in Pt Med Stat, Meds/Allgs Chart Reviewed, Consent Obtained/Reviewed and Anes Risks/Benef Reviewed Patient Risk: Low Procedure Risk: Low Anesthetic Plan Anesthetic Plan: MAC: Disposition: Standard PACU
[2022-11-24 13:02] VITALS: BMI 24.2
[2022-11-24 13:19] VITALS: BP 125/55; PULSE 65; RESP 18; TEMP 36.9; O2SAT 95
--- NOTE | 2022-11-24 13:19 | HO.ANESPROP2 ---
[facility] Active Problems Active Problems: All Active Problems (Updated 11/23/22 @ 09:48 by Madhuri Silveira NP) Preoperative cardiovascular examination (Acute) Symptomatic anemia (Acute) Lower GI bleed (Acute) Acute UTI (Acute) Rectal bleed (Acute) Status post cardiac catheterization (Acute) Chest pain (Acute) Abnormal nuclear stress test (Acute) Past Medical History Medical History (Updated 11/23/22 @ 09:48 by Madhuri Silveira NP) Anemia CAD (coronary artery disease) CVA (cerebral vascular accident) Essential hypertension Stable angina Family History Family History Mother Cancer Father Heart attack Surgical History Surgical History (Updated 11/23/22 @ 09:48 by Madhuri Silveira NP) History of adenoidectomy History of appendectomy History of cardiac cath History of section History of cholecystectomy Hx of hernia repair Hx of tonsillectomy Status post cardiac catheterization History of Problems with Anesthesia: No Social History Social History Household Members: Children Housing: House Do you presently have visiting nurse or other home services: Yes Alcohol intake: never Patient Tobacco Use Status: Former Tobacco user Quit Date: 11/18/03 Years Smoked: 30 +/- e-Cigarette/Vaping Use: Never Used Second Hand Smoke Exposure: No Use of substances other than those prescribed or required for medical reasons: Yes Substance Use Type: IV Drugs Substance Use Type Other:: baked in banana bread Are you DNR?: No Advance Directives: No Advance Directives Information Provided: Yes service: No Current occupational status: retired Meds Allergies Allergy/AdvReac Type Severity Reaction Status Date / Time gluten Allergy Unknown Verified 11/24/22 14:20 scallops Allergy Unknown Verified 11/24/22 14:20 Active Medications: Current Medications Lactated Ringer's (Lr) 1,000 mls @ 50 mls/hr IVCONT .Q20H [facility] Home Medications Medication Instructions Recorded Confirmed Last Taken Type albuterol sulfate 90 mcg/actuation 2 puff inhalation Q4H PRN 09/30/20 11/24/22 Unknown History aerosol inhaler Respiratory Distress aspirin 81 mg tablet,delayed 81 mg PO DAILY 09/30/20 11/24/22 11/22/22 History release (Adult Low Dose Aspirin) latanoprost 0.005 % eye drops 1 drp ophthalmic (eye) BEDTIME 09/30/20 11/24/22 11/18/22 History omeprazole 20 mg capsule,delayed 20 mg PO BID 09/30/20 11/24/22 11/24/22 History release oxycodone-acetaminophen 5 mg-325 1 tab PO BID PRN Pain (Scale Score 09/30/20 11/24/22 11/24/22 History mg tablet 7-10) acetaminophen 650 mg 1,300 mg PO Q8H PRN Pain 02/24/21 11/24/22 Unknown History tablet,extended release (Tylenol 8 Hour) cholecalciferol (vitamin D3) 50 50 mcg PO DAILY 02/24/21 11/24/22 11/18/22 History mcg (2,000 unit) capsule magnesium 250 mg tablet 500 mg PO DAILY 02/24/21 11/24/22 11/18/22 History milk thistle 500 mg capsule 500 mg PO BID 02/24/21 11/24/22 Unknown History zinc 50 mg tablet 50 mg PO DAILY 02/24/21 11/24/22 11/18/22 History cyanocobalamin (vitamin B-12) 1,000 mcg PO DAILY 03/16/22 11/24/22 11/18/22 History 1,000 mcg tablet levothyroxine 112 mcg tablet 112 mcg PO DAILY 03/16/22 11/24/22 11/24/22 History metformin 500 mg tablet 500 mg PO BID 03/16/22 11/24/22 11/18/22 History biotin 5 mg capsule 5 mg PO DAILY 05/04/22 11/24/22 11/18/22 History melatonin 10 mg capsule 10 mg PO BEDTIME 05/04/22 11/24/22 Unknown History ticagrelor 90 mg tablet (Brilinta) 90 mg PO BID 05/04/22 11/24/22 11/18/22 History atorvastatin 40 mg tablet 40 mg PO DAILY 06/16/22 11/24/22 11/18/22 History mirabegron 50 mg tablet,extended 50 mg PO DAILY 06/16/22 11/24/22 11/18/22 History release 24 hr (Myrbetriq) famotidine 40 mg tablet 40 mg PO BID 09/07/22 11/24/22 11/18/22 History ascorbic acid (vitamin C) 500 mg 500 mg PO DAILY 11/19/22 11/24/22 11/18/22 History tablet betamethasone valerate 0.1 % 1 appl topical DAILY 11/19/22 11/24/22 11/18/22 History topical cream levetiracetam 750 mg tablet 750 mg PO BID 11/19/22 11/24/22 11/24/22 History (Keppra) loperamide 2 mg tablet 2 mg PO QID PRN LOOSE STOOLS 11/19/22 11/24/22 Unknown History naloxone 4 mg/actuation nasal spray 4 mg intranasal Q2M PRN OPIOD 11/19/22 11/24/22 Unknown History OVERDOSE peg 400-propylene glycol (PF) 0.4 1 drp ophthalmic (eye) BID 11/19/22 11/24/22 11/18/22 History %-0.3 % eye drops in a dropperette (Systane (PF)) simethicone 125 mg chewable tablet 125 mg PO TID PRN GAS/BLOATING 11/19/22 11/24/22 11/24/22 History Exam Exam Date and Time: November 24, 2022 1319 Height,Weight and Vital Signs: Height 5 ft 1.5 in Weight 58.967 kg Airway Mallampati Class: I TM Dist: >3cm Neck ROM: Full Heart: cta Lungs: cta Assessment and Plan Assessment Anesthesia Assessment: Anesthesia Plan Discussed and Chart Reviewed Final Anesthetic Review History of Problems with Anesthesia: No NPO: Yes ASA Class: II Final Preanesthetic Review: No Changes in Pt Med Stat, Meds/Allgs Chart Reviewed, Consent Obtained/Reviewed and Anes Risks/Benef Reviewed Patient Risk: Low Procedure Risk: Low Anesthetic Plan Anesthetic Plan: MAC: Disposition: Standard PACU
[2022-11-24] MEDS: Lactated Ringers 1,000 ML 50 ML IVCONT (13:36)
--- NOTE | 2022-11-24 14:09 | P.OP_ITS ---
Operative Note Operative Note Date of Service: 11/24/22 Narrative: Procedure:?Esophagogastroduodenoscopy and colonoscopy Endoscopist:?Julia Li MD Indication:?Anemia ? Anesthesia Provider:?Dr Aleksandra Yousif Anesthesia Type:?MAC Instrument:?Olympus GIF-H190 and PCF-190L EGD Procedure:?? The procedure, indications, preparation and potential complications were reviewed with the patient, who indicated understanding and gave written informed consent to proceed. A physical exam was performed. The endoscope was introduced through the mouth, and advanced to the second part of duodenum. The mucosa was carefully examined on slow withdrawal of the endoscope. The patient tolerated the procedure well. There were no immediate c omplications.? EGD Findings:? * Esophagus:? Normal mucosa noted in the entire esophagus. The Z line was at 29 cm.? A large hiatal hernia was seen with diaphragmatic hiatus at 38 cm. * Stomach:? Erythema in linear fashion was noted in body and antrum. Random cold forceps biopsies were taken to rule out H Pylori. Retroflexion in the stomach confirmed the size and morphology of the hernia with Hill Grade IV. No oswaldo erosions were noted. * Duodenum:? Normal mucosa was noted in the duodenum to the extent examined. Cold forceps biopsies were taken from the second portion of the duodenum to r/o celiac disease. Colonoscopy Procedure:? The patient was then turned for the colonoscopy. A digital rectal exam was performed which was abnormal for palpation of foreign body in vaginal vault.? A distal attachment cap was affixed to the tip of the scope and the colonoscope was then inserted through the anus and advanced through the colon to the cecum at 75 cm,and terminal ileum.? Appendiceal orifice and ileocecal valve were identified.? Mucosa was carefully examined under high definition white light as the instrument was slowly withdrawn in a retrograde panoramic fashion. Retroflexion could not be performed in rectum due to small rectal vault. The procedure was not difficult. There were no immediate obvious complications. The quality of the prep was BBPS: 2+3+2 = adequate Withdrawal time 11 minutes. Limitations: No limitations.? Findings: Mucosa: Normal mucosa to cecum and terminal ileum. No fresh or old blood noted. Protruding lesions: * Medium internal hemorrhoids without stigmata of recent bleeding. Excavated lesions: * Severe diverticulosis in sigmoid colon. Impression: 1. Normal esophagus 2. Large Hill grade IV hiatal hernia 3. Normal stomach (biopsy) 4. Normal duodenum (biopsy) 5. Normal colon and terminal ileum mucosa 6. Diverticulosis 7. Internal hemorrhoids Recommendations:?? * Follow biopsy results, office will call or send a letter within 7-10 days.? * Will review small bowel evaluation with the patient * Can resume Brillinta * Future colonoscopy for asymptomatic CRC screening not recommended at this age. Findings were reviewed with the patient and relevant handout provided as well.
--- NOTE | 2022-11-24 14:09 | MHC.SHP ---
Pre-Procedural Eval Section A Date of Service: 11/24/22 The patient is an INPATIENT: No The History & Physical has been completed within 30 days and I have reviewed it.: Yes Section B Chief Complaint: Gastrointestinal hemorrhage,anemia Allergies: Allergies Allergy/AdvReac Type Severity Reaction Status Date / Time atorvastatin AdvReac other Verified 11/24/22 14:08 Plan Diagnosis/Plan: Unchanged I have reviewed the history and physical and performed a pertinent physical examination on my patient. No changes have occurred unless specified. Time Spent With Patient Time: Total time managing care of this patient today ____ minutes.
[2022-11-24 14:45] VITALS: BP 123/49; PULSE 80; RESP 16; TEMP 36.1; O2SAT 94
--- NOTE | 2022-11-24 14:50 | HO.ANESPROP2 ---
HPI - Anesthesia Eval Consult details Narrative: screening ro celiac dx PMFSH Active Problems Active Problems: All Active Problems (Updated 11/23/22 @ 09:48 by Madhuri Silveira NP) Preoperative cardiovascular examination (Acute) Symptomatic anemia (Acute) Lower GI bleed (Acute) Acute UTI (Acute) Rectal bleed (Acute) Status post cardiac catheterization (Acute) Chest pain (Acute) Abnormal nuclear stress test (Acute) Past Medical History Medical History (Updated 11/23/22 @ 09:48 by Madhuri Silveira NP) Anemia CAD (coronary artery disease) CVA (cerebral vascular accident) Essential hypertension Stable angina Family History Family History Mother Cancer Father Heart attack Family history of problems with anesthesia: No Surgical History Surgical History (Updated 11/23/22 @ 09:48 by Madhuri Silveira NP) History of adenoidectomy History of appendectomy History of cardiac cath History of section History of cholecystectomy Hx of hernia repair Hx of tonsillectomy Status post cardiac catheterization History of Problems with Anesthesia: No Social History Social History Household Members: Children Housing: House Do you presently have visiting nurse or other home services: Yes Alcohol intake: never Patient Tobacco Use Status: Former Tobacco user Quit Date: 11/18/03 Years Smoked: 30 +/- e-Cigarette/Vaping Use: Never Used Second Hand Smoke Exposure: No Substance Use Type: IV Drugs service: No Current occupational status: retired Meds Allergies Allergy/AdvReac Type Severity Reaction Status Date / Time gluten Allergy Unknown Verified 11/24/22 14:20 scallops Allergy Unknown Verified 11/24/22 14:20 Active Medications: Current Medications Lactated Ringer's (Lr) 1,000 mls @ 50 mls/hr IVCONT .Q20H [facility] Last Admin: 11/24/22 13:36 Dose: 50 mls/hr Home Medications Medication Instructions Recorded Confirmed Last Taken Type albuterol sulfate 90 mcg/actuation 2 puff inhalation Q4H PRN 09/30/20 11/24/22 Unknown History aerosol inhaler Respiratory Distress aspirin 81 mg tablet,delayed 81 mg PO DAILY 09/30/20 11/24/22 11/22/22 History release (Adult Low Dose Aspirin) latanoprost 0.005 % eye drops 1 drp ophthalmic (eye) BEDTIME 09/30/20 11/24/22 11/18/22 History omeprazole 20 mg capsule,delayed 20 mg PO BID 09/30/20 11/24/22 11/24/22 History release oxycodone-acetaminophen 5 mg-325 1 tab PO BID PRN Pain (Scale Score 09/30/20 11/24/22 11/24/22 History mg tablet 7-10) acetaminophen 650 mg 1,300 mg PO Q8H PRN Pain 02/24/21 11/24/22 Unknown History tablet,extended release (Tylenol 8 Hour) cholecalciferol (vitamin D3) 50 50 mcg PO DAILY 02/24/21 11/24/22 11/18/22 History mcg (2,000 unit) capsule magnesium 250 mg tablet 500 mg PO DAILY 02/24/21 11/24/22 11/18/22 History milk thistle 500 mg capsule 500 mg PO BID 02/24/21 11/24/22 Unknown History zinc 50 mg tablet 50 mg PO DAILY 02/24/21 11/24/22 11/18/22 History cyanocobalamin (vitamin B-12) 1,000 mcg PO DAILY 03/16/22 11/24/22 11/18/22 History 1,000 mcg tablet levothyroxine 112 mcg tablet 112 mcg PO DAILY 03/16/22 11/24/22 11/24/22 History metformin 500 mg tablet 500 mg PO BID 03/16/22 11/24/22 11/18/22 History biotin 5 mg capsule 5 mg PO DAILY 05/04/22 11/24/22 11/18/22 History melatonin 10 mg capsule 10 mg PO BEDTIME 05/04/22 11/24/22 Unknown History ticagrelor 90 mg tablet (Brilinta) 90 mg PO BID 05/04/22 11/24/22 11/18/22 History atorvastatin 40 mg tablet 40 mg PO DAILY 06/16/22 11/24/22 11/18/22 History mirabegron 50 mg tablet,extended 50 mg PO DAILY 06/16/22 11/24/22 11/18/22 History release 24 hr (Myrbetriq) famotidine 40 mg tablet 40 mg PO BID 09/07/22 11/24/22 11/18/22 History ascorbic acid (vitamin C) 500 mg 500 mg PO DAILY 11/19/22 11/24/22 11/18/22 History tablet betamethasone valerate 0.1 % 1 appl topical DAILY 11/19/22 11/24/22 11/18/22 History topical cream levetiracetam 750 mg tablet 750 mg PO BID 11/19/22 11/24/22 11/24/22 History (Keppra) loperamide 2 mg tablet 2 mg PO QID PRN LOOSE STOOLS 11/19/22 11/24/22 Unknown History naloxone 4 mg/actuation nasal spray 4 mg intranasal Q2M PRN OPIOD 11/19/22 11/24/22 Unknown History OVERDOSE peg 400-propylene glycol (PF) 0.4 1 drp ophthalmic (eye) BID 11/19/22 11/24/22 11/18/22 History %-0.3 % eye drops in a dropperette (Systane (PF)) simethicone 125 mg chewable tablet 125 mg PO TID PRN GAS/BLOATING 11/19/22 11/24/22 11/24/22 History Exam Exam Date and Time: November 24, 2022 1450 Height,Weight and Vital Signs: Height 5 ft 1.5 in Weight 58.967 kg Last Vital Signs Temp 98.4 F 11/24/22 13:19 Pulse 65 11/24/22 13:19 Resp 18 11/24/22 13:19 BP 125/55 L 11/24/22 13:19 Pulse Ox 95 11/24/22 13:19 O2 Del Method Room Air 11/24/22 13:19 Assessment and Plan Final Anesthetic Review Family History of Problems with Anesthesia: No History of Problems with Anesthesia: No
[2022-11-24 15:00] VITALS: BP 142/43; PULSE 71; RESP 20; TEMP 36.2; O2SAT 98
== END 2022-11-24 15:53 | disposition home or self-care (01) ==
PROVIDERS: PCP Internal Medicine Geriatric Medicine; Visit Provider Internal Medicine
PROC: (CPT 45378; principal; 2022-11-24 14:00)
DX: D64.9 Anemia, unspecified (principal); K57.30 Diverticulosis of large intestine without perforation or abscess without bleeding; K64.8 Other hemorrhoids; K92.1 Melena; R10.9 Unspecified abdominal pain; K44.9 Diaphragmatic hernia without obstruction or gangrene; I25.10 Atherosclerotic heart disease of native coronary artery without angina pectoris; Z95.5 Presence of coronary angioplasty implant and graft; I10 Essential (primary) hypertension; E78.5 Hyperlipidemia, unspecified; Z79.01 Long term (current) use of anticoagulants; Z79.02 Long term (current) use of antithrombotics/antiplatelets; Z87.891 Personal history of nicotine dependence; Z90.49 Acquired absence of other specified parts of digestive tract; Z88.8 Allergy status to other drugs, medicaments and biological substances; Z79.82 Long term (current) use of aspirin
CPT/HCPCS: 45378; 43239; 88305; 88342

== ENCOUNTER → 2022-12-12 12:12 | Outpatient (BNVA) | payer OTHER, MEDICAID, SELFPAY | PROVIDERS: PCP Internal Medicine Geriatric Medicine; Visit Provider Internal Medicine | DX: R10.9 Unspecified abdominal pain (principal); R19.7 Diarrhea, unspecified; D64.9 Anemia, unspecified | CPT/HCPCS: 99212 ==

== ENCOUNTER 2022-12-16 12:26 | Emergency (ER) | payer OTHER, MEDICAID, SELFPAY ==
--- NOTE | 2022-12-16 12:33 | ED_ITS ---
HPI - General Adult General Chief complaint: Abdominal Pain Stated complaint: Abdominal Pain Time Seen by Provider: 12/16/22 13:52 Source: patient Mode of arrival: ambulatory Limitations: no limitations History of Present Illness HPI narrative: Patient is a 77-year-old female with history of anemia, cardiac cath, currently on treatment for C. diff with ten days of Vancomycin presenting to the emergency department with complaint of rectal pain related to fecal incontinence. Patient reports she has been using Imodium for her diarrhea. States without taking the Imodium she has approximately 3-4 episodes of diarrhea per day, while taking the Imodium does not have any episodes of diarrhea, but continues to have fecal incontinence and leakage. Has tried [id number] diaper cream as well as hemorrhoid creams with little relief. Denies recent fevers. Reports episode of abdominal cramping last night, denies any abdominal pain at this time. Denies any back or flank pain. Denies any chest pain or shortness of breath. Denies any bright red blood in stool or dark, tarry stool. MD complaint: Rectal pain Onset (ago): day(s) Location: genitals Radiation: non-radiation Severity: severe Quality: burning Pain Consistency: constant Relieving factors: none Exacerbating factors: movement Associated symptoms: denies other symptoms Treatments prior to arrival: other (Diaper cream, hemorrhoid cream) Related Data Home Medications Medication Instructions Recorded Confirmed albuterol sulfate 90 mcg/actuation 2 puff inhalation Q4H PRN 09/30/20 12/16/22 aerosol inhaler Respiratory Distress aspirin 81 mg tablet,delayed 81 mg PO DAILY 09/30/20 12/16/22 release (Adult Low Dose Aspirin) latanoprost 0.005 % eye drops 1 drp ophthalmic (eye) BEDTIME 09/30/20 12/16/22 omeprazole 20 mg capsule,delayed 20 mg PO BID 09/30/20 12/16/22 release oxycodone-acetaminophen 5 mg-325 1 tab PO BID PRN Pain (Scale Score 09/30/20 12/16/22 mg tablet 7-10) acetaminophen 650 mg 1,300 mg PO Q8H PRN Pain 02/24/21 12/16/22 tablet,extended release (Tylenol 8 Hour) cholecalciferol (vitamin D3) 50 50 mcg PO DAILY 02/24/21 12/16/22 mcg (2,000 unit) capsule magnesium 250 mg tablet 500 mg PO DAILY 02/24/21 12/16/22 milk thistle 500 mg capsule 500 mg PO BID 02/24/21 12/16/22 zinc 50 mg tablet 50 mg PO DAILY 02/24/21 12/16/22 cyanocobalamin (vitamin B-12) 1,000 mcg PO DAILY 03/16/22 12/16/22 1,000 mcg tablet levothyroxine 112 mcg tablet 112 mcg PO DAILY 03/16/22 12/16/22 metformin 500 mg tablet 500 mg PO BID 03/16/22 12/16/22 biotin 5 mg capsule 5 mg PO DAILY 05/04/22 12/16/22 melatonin 10 mg capsule 10 mg PO BEDTIME 05/04/22 12/16/22 ticagrelor 90 mg tablet (Brilinta) 90 mg PO BID 05/04/22 12/16/22 atorvastatin 40 mg tablet 40 mg PO DAILY 06/16/22 12/16/22 mirabegron 50 mg tablet,extended 50 mg PO DAILY 06/16/22 12/16/22 release 24 hr (Myrbetriq) famotidine 40 mg tablet 40 mg PO BID 09/07/22 12/16/22 ascorbic acid (vitamin C) 500 mg 500 mg PO DAILY 11/19/22 12/16/22 tablet betamethasone valerate 0.1 % 1 appl topical DAILY 11/19/22 12/16/22 topical cream levetiracetam 750 mg tablet 750 mg PO BID 11/19/22 12/16/22 (Keppra) loperamide 2 mg tablet 2 mg PO QID PRN LOOSE STOOLS 11/19/22 12/16/22 naloxone 4 mg/actuation nasal spray 4 mg intranasal Q2M PRN OPIOD 11/19/22 12/16/22 OVERDOSE peg 400-propylene glycol (PF) 0.4 1 drp ophthalmic (eye) BID 11/19/22 12/16/22 %-0.3 % eye drops in a dropperette (Systane (PF)) simethicone 125 mg chewable tablet 125 mg PO TID PRN GAS/BLOATING 11/19/22 12/16/22 vancomycin 125 mg capsule 125 mg PO QID 12/16/22 12/16/22 Previous Rx's Medication Instructions Recorded amlodipine 2.5 mg tablet 2.5 mg PO DAILY 90 days #90 tabs 09/02/22 lidocaine 4 % topical cream 1 appl topical TID PRN pain #15 12/16/22 grams vancomycin 125 mg capsule 125 mg PO QID 4 days #16 caps 12/16/22 cephalexin 500 mg capsule 500 mg PO BID #10 caps 12/20/22 Allergies Allergy/AdvReac Type Severity Reaction Status Date / Time gluten Allergy Unknown Verified 12/12/22 12:36 scallops Allergy Unknown Verified 12/12/22 12:36 Review of Systems Review of Systems: As per HPI. Yes all other systems are reviewed and are negative Constitutional: Constitutional: Reports as per HPI [facility] Past Medical History Medical History (Updated 12/17/22 @ 00:11 by Sarha Woods) Anemia CAD (coronary artery disease) CVA (cerebral vascular accident) Essential hypertension Lower GI bleed Rectal bleed Stable angina Surgical History History of adenoidectomy History of appendectomy History of cardiac cath History of section History of cholecystectomy Hx of hernia repair Hx of tonsillectomy Status post cardiac catheterization Family History Family History Mother Cancer Father Heart attack Social History Social History Household Members: Children Housing: House Do you presently have visiting nurse or other home services: Yes Alcohol intake: never Patient Tobacco Use Status: Former Tobacco user Quit Date: 11/18/03 Years Smoked: 30 +/- e-Cigarette/Vaping Use: Never Used Second Hand Smoke Exposure: No Substance Use Type: IV Drugs Advance Directives: Yes Advance Directives Information Provided: Yes Advance Directives on File: No service: No Current occupational status: retired Physical Exam ED Vital Signs: Vital Signs - 24 hr 12/16/22 14:22 Temperature 98.1 F Pulse Rate 76 Respiratory Rate 17 Blood Pressure 130/54 L Pulse Oximetry 99 Oxygen Delivery Method Room Air BMI result Body Mass Index 29.2 Vital signs have been reviewed and appear to be correct. Blood pressure normal. Heart rate normal. Respiratory rate normal. Temperature normal. Oxygen saturation normal. Const General: cooperative, healthy appearing and no acute distress Orientation/consciousness: oriented to person, oriented to place, oriented to time and patient oriented x3 Limitations: no limitations HENMT Head: Yes normocephalic and Yes atraumatic Ears: external ears normal General nose exam: Normal external nose present Face and sinus: Yes face symmetric Mouth: oropharynx normal and moist mucous membranes Throat: Yes uvula midline Eyes Pupils: Equal, round and reactive pupils present Neck Neck: Yes normal visual inspection and Yes supple Resp Effort & Inspection: normal respiratory effort and able to speak in complete sentences Auscultation: clear to auscultation bilaterally Cardio Rate: regular rate Rhythm: regular rhythm Heart sounds: S1 normal heart sound present and S2 normal heart sound present GI Other: Rectal exam chaperoned by JULY Sanchez. Inspection: Yes normal to inspection and No distended Palpation (GI): Soft to palpation, nontender, no guarding and No Rebound tenderness present Auscultation: normoactive bowel sounds Rectal Exam - Female: External hemorrhoid(s) present and Excoriation present (GI) (of external hemorrhoids) General: Yes no CVA tenderness Back/Spine/Pelvis Back: no CVA tenderness Skin General skin exam: elasticity normal and turgor normal Neuro General: oriented to person, oriented to place, oriented to time, patient oriented x3, moves all extremities, no focal motor deficits and CN's II-XI intact bilaterally Cranial nerves: Yes Equal, round and reactive pupils present Cognition (Neuro): normal cognition Extrem General: Yes full ROM, Yes no pedal edema and Yes no calf tenderness Psych Mental Status: mental status grossly normal Affect: normal affect Thought process: Normal thought process present Course Course Course Narrative: This is an RME: Additional HPI, ROS, PE not included below will be deferred to primary provider. 77 year old female presents w/ abd cramping, diarhea, known cdiff + has been treated w/ PO vanco 8 days sx worsening. Sent by [facility] walk in clinic Dr. Germán Adames- labs, gi studdies, imaging Reevaluation(s) Reevaluation #1: Urine culture >100,000 e.coli crain sensitive. I called and spoke to the patient. She is having some urinary frequency and lower abdominal discomfort. Of note patient currently has C diff and is receiving vancomycin oral for this. As the patient does have some symptoms I will treat her with a very short course of antibiotics. I did discuss this with her as we do not want to further antagonize her C diff. I do recommend patient follow-up with her primary care after complete banks off her antibiotics for her urine to be retested. All questions answered. Medications Administered Discontinued Medications Generic Name Dose Route Start Last Admin Trade Name Chuy PRN Reason Stop Dose Admin Metronidazole 500 mg in 100 mls @ 100 mls/hr 12/16/22 12:32 12/16/22 14:30 Flagyl IV 12/16/22 13:31 Not Given ONCE ONE Sodium Chloride 1,000 mls @ 999 mls/hr 12/16/22 12:45 12/16/22 14:30 Ns IV 12/16/22 13:45 Not Given .Q1H1M [facility] Medical Decision Making Medical Decision Making [facility] Narrative: Patient is a 77-year-old female with history of anemia, cardiac cath, currently on treatment for C. diff with ten days of Vancomycin presenting to the emergency department with complaint of rectal pain related to fecal incontinence. On exam patient is awake, A+Ox3, VS WNL, afebrile, normal neurological exam without focal deficits, abdomen is soft and nontender with normoactive bowel sounds, no CVA tenderness, external hemorrhoids noted on rectal exam with mild excoriation, no surrounding rash, erythema, or calor. Given reported symptoms and physical exam findings, differential includes perianal dermatitis, hemorrhoids, anal fissures, rectal prolapse. Labs notable for absence of leukocytosis, improvemen t in H&H from prior labs, very slight elevation of BUN, creatnine normal. Considered abdominal CT, however abdomen is soft and nontender, not disdended, and patient denies current abdominal pain. Unlikely toxic megacolon, bowel obstruction, ischemia. 15:25 UA positive for 1+ leukocytes, however, also positive for epithelial cells so likely contamination as patient denies urinary symptoms. Feel patient is stable for discharge home. Will extend treatment with Vanco to 2 weeks from 10 days. Will prescribe lidocaine cream for rectal discomfort. Instructed patient to continue to liberally apply barrier cream. Follow-up with PCP. Return precautions discussed at bedside. Patient verbalized understanding and agreement of plan. Differential Diagnosis Differential Diagnoses: The differential diagnosis associated with the pre sentation includes As above. Lab Data [facility] Lab Attestation statement: I reviewed the patient's lab results. As above. 12/16/22 12:50 12/16/22 12:50 Labs: Lab Results 12/16/22 12/16/22 12/16/22 Range/Units 12:50 12:50 12:50 WBC 10.2 (4.8-10.8) X10*3/uL RBC 4.51 (4.20-5.50) X10*6/uL Hgb 10.4 L (12.0-16.0) g/dl Hct 34.9 L (37.0-47.0) % MCV 77.4 L (80.0-98.0) fL MCH 23.1 L (27.0-33.0) pg MCHC 29.8 L (31.0-35.0) g/dl RDW 23.9 H (11.0-16.0) % Plt Count 403 H (160-400) X10*3/uL MPV 9.5 (9.4-12.3) fL Immature Gran % (Auto) 0.2 (0.0-0.4) % Neut % (Auto) 69.5 (45-73) % Lymph % (Auto) 20.2 (20-40) % Kimball % (Auto) 6.8 (2-11) % Eos % (Auto) 2.9 (0-4) % Baso % (Auto) 0.4 (0-2) % Lymph # (Auto) 2.1 (1.2-4.9) X10*3/uL Kimball # (Auto) 0.7 (0.1-1.2) X10*3/uL Eos # (Auto) 0.3 (0.0-0.4) X10*3/uL Baso # (Auto) 0.0 (0.0-0.2) X10*3/uL Abs Immat Gran (auto) 0.02 (0.00-0.03) X10*3/uL Absolute Neuts (auto) 7.1 (2.0-8.3) x10*3/uL Absolute Nucleated RBC 0.000 (0.0-0.012) X10*3/uL Nucleated RBC % (auto) 0.0 (0.0-0.2) /100WBC Sodium 141 (135-145) mmol/L Potassium 4.4 (3.3-5.1) mmol/L Chloride 105 (96-108) mmol/L Carbon Dioxide 24 (22-29) mmol/L Anion Gap 16 (12-20) BUN 19 H (9-16) mg/dL Creatinine 0.76 (0.5-1.4) mg/dL Estim Creat Clear Calc 63.2 Estimated GFR > 60 Random Glucose 110 (60-115) mg/dL Lactic Acid 1.8 (0.5-2.0) mmol/L Calcium 9.8 D (8.4-10.2) mg/dL Magnesium 2.2 (1.6-2.6) mg/dL Total Bilirubin 0.6 (0.0-1.0) mg/dL AST 21 (5-31) U/L ALT 21 (0-31) U/L Alkaline Phosphatase 116 (39-117) U/L Total Creatine Kinase 26 (26-140) U/L Total Protein 7.8 (6.5-8.0) g/dL Albumin 4.1 (3.5-5.0) g/dL Urine Color Urine Appearance Urine pH (5.0-9.0) Ur Specific Posey (1.005-1.025) Urine Protein (Neg-Trace) mg/dL Urine Glucose (UA) (Negative) mg/dL Urine Ketones (Negative) mg/dL Urine Blood (Negative) Urine Nitrite (Negative) Ur Leukocyte Esterase (Negative) Urine RBC (0-2) /HPF Urine WBC (0-5) /HPF Ur Squamous Epith Cells (0-2) /HPF Urine Bacteria (None Seen) Hyaline Casts (0-2) /LPF 12/16/ Range/Units 14:37 WBC (4.8-10.8) X10*3/uL RBC (4.20-5.50) X10*6/uL Hgb (12.0-16.0) g/dl Hct (37.0-47.0) % MCV (80.0-98.0) fL MCH (27.0-33.0) pg MCHC (31.0-35.0) g/dl RDW (11.0-16.0) % Plt Count (160-400) X10*3/uL MPV (9.4-12.3) fL Immature Gran % (Auto) (0.0-0.4) % Neut % (Auto) (45-73) % Lymph % (Auto) (20-40) % Kimball % (Auto) (2-11) % Eos % (Auto) (0-4) % Baso % (Auto) (0-2) % Lymph # (Auto) (1.2-4.9) X10*3/uL Kimball # (Auto) (0.1-1.2) X10*3/uL Eos # (Auto) (0.0-0.4) X10*3/uL Baso # (Auto) (0.0-0.2) X10*3/uL Abs Immat Gran (auto) (0.00-0.03) X10*3/uL Absolute Neuts (auto) (2.0-8.3) x10*3/uL Absolute Nucleated RBC (0.0-0.012) X10*3/uL Nucleated RBC % (auto) (0.0-0.2) /100WBC Sodium (135-145) mmol/L Potassium (3.3-5.1) mmol/L Chloride (96-108) mmol/L Carbon Dioxide (22-29) mmol/L Anion Gap (12-20) BUN (9-16) mg/dL Creatinine (0.5-1.4) mg/dL Estim Creat Clear Calc Estimated GFR Random Glucose (60-115) mg/dL Lactic Acid (0.5-2.0) mmol/L Calcium (8.4-10.2) mg/dL Magnesium (1.6-2.6) mg/dL Total Bilirubin (0.0-1.0) mg/dL AST (5-31) U/L ALT (0-31) U/L Alkaline Phosphatase (39-117) U/L Total Creatine Kinase (26-140) U/L Total Protein (6.5-8.0) g/dL Albumin (3.5-5.0) g/dL Urine Color Yellow Urine Appearance Cloudy Urine pH 6.5 (5.0-9.0) Ur Specific Posey 1.020 (1.005-1.025) Urine Protein Negative (Neg-Trace) mg/dL Urine Glucose (UA) Negative (Negative) mg/dL Urine Ketones Negative (Negative) mg/dL Urine Blood Negative (Negative) Urine Nitrite Negative (Negative) Ur Leukocyte Esterase Small (1+) H (Negative) Urine RBC 3-5 H (0-2) /HPF Urine WBC 6-10 (0-5) /HPF Ur Squamous Epith Cells 3-5 (0-2) /HPF Urine Bacteria 4+ (None Seen) Hyaline Casts 0-2 (0-2) /LPF External Record Review External record reviewed: Inpatient record, Office record and Outpatient record Tests considered The following testing was considered but not selected: Considered abdominal CT, however abdomen is soft and nontender, not disdended, and patient denies current abdominal pain. Prescription Management I considered prescription management with: Pain Medication and Antibiotic (ex tending vanco) Discharge Plan Discharge Clinical Impression: External hemorrhoid, Perianal dermatitis, Perianal excoriation Patient Disposition: Home, Self-Care Instructions: Hemorrhoids (DC), Dermatitis (ED) Additional Instructions: You are being prescribed additional vancomycin to extend your treatment to 2 full weeks. You are being prescribed topical lidocaine cream to apply to your rectal area for pain. You should continue to apply a thick layer of barrier cream (diapher rash cream) to the area AFTER it is thoroughly cleaned and dried. Return to the emergency department for worsening abdominal pain, more frequent episodes of diarrhea, fevers 100.4F or greater, or any other concerning symptom s. Prescriptions: New vancomycin 125 mg capsule 125 mg PO QID 4 Days Qty: 16 0RF Rx Instructions: The is to extend original prescription from 10 days to 2 weeks. lidocaine 4 % cream 1 appl topical TID PRN (Reason: pain) Qty: 15 0RF cephalexin 500 mg capsule 500 mg PO BID Qty: 10 0RF No Action amlodipine 2.5 mg tablet 2.5 mg PO DAILY 90 Days Qty: 90 2RF ascorbic acid (vitamin C) 500 mg Tablet 500 mg PO DAILY betamethasone valerate 0.1 % Cream 1 appl TOPICAL DAILY levetiracetam [Keppra] 750 mg Tablet 750 mg PO BID loperamide 2 mg Tablet 2 mg PO QID PRN (Reason: LOOSE STOOLS) Rx Instructions: TAKE 1 TABLET AFTER 1ST LOOSE STOOL AND 1 TAB 2 MG AFTER EACH NEXT BOWEL MOVEMENT, DO NOT EXCEED 16 MG IN 24 HRS naloxone 4 mg/actuation [place],Non-Aerosol 4 mg INTRANASAL Q2M PRN (Reason: OPIOD OVERDOSE) Rx Instructions: spray 1 dose into ONE nostril; alternate nostrils w each dose until help arrives Systane (PF) 0.4-0.3 % Dropperette 1 drp OPHTHALMIC (EYE) BID simethicone 125 mg Tablet,Chewable 125 mg PO TID PRN (Reason: GAS/BLOATING) vancomycin 125 mg capsule 125 mg PO QID omeprazole 20 mg capsule,delayed release(DR/EC) 20 mg PO BID oxycodone-acetaminophen 5-325 mg tablet 1 tab PO BID PRN (Reason: Pain (Scale Score 7-10)) latanoprost 0.005 % drops 1 drp ophthalmic (eye) BEDTIME albuterol sulfate 90 mcg/actuation HFA aerosol inhaler 2 puff inhalation Q4H PRN (Reason: Respiratory Distress) aspirin [Adult Low Dose Aspirin] 81 mg tablet,delayed release (DR/EC) 81 mg PO DAILY metformin 500 mg tablet 500 mg PO BID acetaminophen [Tylenol 8 Hour] 650 mg tablet extended release 1,300 mg PO Q8H PRN (Reason: Pain) cholecalciferol (vitamin D3) 50 mcg (2,000 unit) capsule 50 mcg PO DAILY magnesium 250 mg tablet 500 mg PO DAILY milk thistle 500 mg capsule 500 mg PO BID Rx Instructions: give with meal/snack zinc 50 mg tablet 50 mg PO DAILY atorvastatin 40 mg tablet 40 mg PO DAILY Myrbetriq 50 mg tablet extended release 24 hr 50 mg PO DAILY levothyroxine 112 mcg tablet 112 mcg PO DAILY cyanocobalamin (vitamin B-12) 1,000 mcg tablet 1,000 mcg PO DAILY Brilinta 90 mg tablet 90 mg PO BID Hold Instructions: Until Colonoscopy is done melatonin 10 mg capsule 10 mg PO BEDTIME biotin 5 mg capsule 5 mg PO DAILY famotidine 40 mg tablet 40 mg PO BID Interventions: ED Discharge Assessment Last Done: 12/16/22 15:52 Discharge Date/Time: 12/16/22 16:03
[2022-12-16 12:54] VITALS: BMI 29.2
[2022-12-16 12:56] LABS: MANUAL DIFF FLAG NO
[2022-12-16 12:58] LABS: Basophils Percent Auto 0.4 % (0-2); Eosinophils Absolute Auto 0.3 X10*3/uL (0.0-0.4); Eosinophils Percent Auto 2.9 % (0-4); Hematocrit 34.9 % (37.0-47.0); Hemoglobin 10.4 g/dl (12.0-16.0); Imm Gran Abs Auto 0.02 X10*3/uL (0.00-0.03); Imm Gran Pct Auto 0.2 % (0.0-0.4); Lymphocytes Absolute Auto 2.1 X10*3/uL (1.2-4.9); Lymphocytes Percent Auto 20.2 % (20-40); Mean Corpuscular HGB Conc 29.8 g/dl (31.0-35.0); Mean Corpuscular Hemoglobin 23.1 pg (27.0-33.0); Mean Corpuscular Volume 77.4 fL (80.0-98.0); Mean Platelet Volume 9.5 fL (9.4-12.3); Monocytes Absolute Auto 0.7 X10*3/uL (0.1-1.2); Monocytes Percent Auto 6.8 % (2-11); Neutrophils Absolute Auto 7.1 x10*3/uL (2.0-8.3); Neutrophils Percent Auto 69.5 % (45-73); Platelet Count 403 X10*3/uL (160-400); Red Blood Count 4.51 X10*6/uL (4.20-5.50); Red Cell Distribution Width 23.9 % (11.0-16.0); White Blood Count 10.2 X10*3/uL (4.8-10.8)
[2022-12-16 13:12] LABS: Lactic Acid 1.8 mmol/L (0.5-2.0)
[2022-12-16 13:18] LABS: Alanine Aminotransferase 21 U/L (0-31); Albumin Level 4.1 g/dL (3.5-5.0); Alkaline Phosphatase 116 U/L (39-117); Anion Gap 16 (12-20); Aspartate Amino Transferase 21 U/L (5-31); Bilirubin Total 0.6 mg/dL (0.0-1.0); Blood Urea Nitrogen 19 mg/dL (9-16); Calcium 9.8 mg/dL (8.4-10.2); Carbon Dioxide 24 mmol/L (22-29); Chloride 105 mmol/L (96-108); Creatinine Clr Calc Pharmacy 63.2; Estimated Glomerular Filt Rate > 60; Glucose Random 110 mg/dL (60-115); Magnesium 2.2 mg/dL (1.6-2.6); Potassium 4.4 mmol/L (3.3-5.1); Sodium 141 mmol/L (135-145); Total Protein 7.8 g/dL (6.5-8.0)
--- NOTE | 2022-12-16 13:57 | PHA.MEDREC ---
Pharmacy Consult ? Medication Reconciliation Pharmacy has completed the medication reconciliation. PATIENT HAS A LIST, ONLY ADDITION IS MITUL ADAMS
[2022-12-16 14:22] VITALS: BP 130/54; PULSE 76; RESP 17; TEMP 36.7; O2SAT 99
[2022-12-16 14:49] LABS: Appearance Urine Cloudy; Color Urine Yellow; Glucose Urine UA Negative (Negative); Leukocyte Esterase Urine Small (1+) (Negative); Nitrite Urine Negative (Negative); PH 6.5 (5.0-9.0); UMIC TRIGGER UACC YES; Urine Blood Negative (Negative); Urine Ketones Negative (Negative); Urine Protein Negative (Neg-Trace)
[2022-12-16 15:02] LABS: Bacteria Urine 4+ (None Seen); Hyaline Casts Urine 0-2 /LPF (0-2); UACC Culture Trigger YES
== END 2022-12-16 16:03 | disposition home or self-care (01) ==
PROVIDERS: Physician Assistant; Emergency Provider Emergency Medicine Emergency Medical Services; PCP Internal Medicine Geriatric Medicine
DX: K64.4 Residual hemorrhoidal skin tags (principal); L30.8 Other specified dermatitis; S30.817A Abrasion of anus, initial encounter; X58.XXXA Exposure to other specified factors, initial encounter; A04.72 Enterocolitis due to Clostridium difficile, not specified as recurrent; R15.1 Fecal smearing; R10.9 Unspecified abdominal pain; D64.9 Anemia, unspecified; Y93.9 Activity, unspecified; Y92.9 Unspecified place or not applicable; Y99.9 Unspecified external cause status
CPT/HCPCS: 36415; 80053; 81001; 82550; 83605; 83735; 85025; 87040; 87086; 87088; 87186; 99283; 99284

== ENCOUNTER 2022-12-27 11:05 | Outpatient (AMB) | payer OTHER, MEDICAID, SELFPAY ==
--- NOTE | 2022-12-27 11:07 | A.OFFVIS_ITS ---
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 She was actually seen in the hospital on November 21 and subsequently discharged. She does have a history significant coronary artery disease with a NICOLAS in addition to diabetes and a remote history of smoking where she quit nearly 20 years prior. Upon discussion with her she does have difficulty eating certain foods. She is able to tolerate ice cream and eggs. In general she is unable to tolerate bread and pasta but believes that is more related to the gluten. She reports it is more of a pelvic cramping and may lead to diarrhea. She now presents to us for evaluation regarding mesenteric ischemia. Also of note she does report a general weight loss. COUNTS INCLUDE 234 BEDS AT THE [facility] Medical History Anemia CAD (coronary artery disease) CVA (cerebral vascular accident) Essential hypertension Lower GI bleed Rectal bleed Stable angina Surgical History History of adenoidectomy History of appendectomy History of cardiac cath History of section History of cholecystectomy Hx of hernia repair Hx of tonsillectomy Status post cardiac catheterization Family History Mother Cancer Father Heart attack Social History Household Members: Children Housing: House Do you presently have visiting nurse or other home services: Yes Alcohol intake: never Patient Tobacco Use Status: Former Tobacco user Quit Date: 11/18/03 Years Smoked: 30 +/- e-Cigarette/Vaping Use: Never Used Second Hand Smoke Exposure: No Substance Use Type: IV Drugs service: No Current occupational status: retired Review of Systems Const All systems reviewed & are unremarkable except as noted in HPI and below Reports no additional complaints ENT Reports Normal hearing present Card Denies chest pain, Denies chest pain at rest, Denies chest pain with activity and Denies pedal edema Resp Denies cough GI Denies abdominal pain Musc Denies abnormal gait, Denies muscle cramps and Denies radiating pain into limb Skin/Breast Denies skin ulcer and Denies wounds Neuro Reports Normal hearing present and Denies abnormal gait Psych Reports no additional complaints Physical Exam Vital Signs: BMI result Body Mass Index 29.2 Const General: cooperative, healthy appearing and comfortable Orientation/consciousness: oriented to person, oriented to place and oriented to time HEENT Head: Yes normal to inspection Neck Neck: Yes normal visual inspection Carotids: no bruits Chest Chest palpation & inspection: normal inspection of the chest Resp Effort & Inspection: normal respiratory effort and able to speak in complete sentences Auscultation: clear to auscultation bilaterally, no crackles, no rales, no rhonchi and no wheezes Cardio Rate: regular rate Rhythm: regular rhythm Heart sounds: S1 normal heart sound present and S2 normal heart sound present Bruits: no carotid bruits Peripheral pulses: Peripheral pulses 2+ throughout GI Inspection: Yes normal to inspection Skin Wounds: no wounds Hair: normal Neuro General: oriented to person, oriented to place and oriented to time Cranial nerves: Yes CN's II-XII intact bilaterally and Yes Normal hearing present Cognition (Neuro): normal cognition Motor exam (neuro): 5/5 motor strength present throughout Extrem Other: venous exam: No significant superficial varicosities or spider telangiectasias, minimal edema General: No clubbing, No cyanosis and No edema Psych Appearance: grossly normal Mental Status: mental status grossly normal Speech and movement: Normal speech and movement present Results Reviewed Results Reviewed: CT scan dated 11/19/2022 demonstrates no evidence of mesenteric ischemia. I was able to clearly identify celiac SMA and ROSENDA. Written report and images were reviewed. Assessment & Plan Assessment & Plan (1) Abdominal pain: Code(s): R10.9 - Unspecified abdominal pain Plan: Unclear etiology of abdominal pain. It does not appear mesenteric in nature. She is scheduled for follow-up with GI and is being scheduled for video capsule enterography. She will follow up with us on an as-needed basis. Thank you for allowing us to assist in her care. If there are any questions or concerns please do not hesitate to contact us. Coding Level of Care Code New Pt Level 4 (85029) Diagnoses Abdominal pain R10.9
[2022-12-27 11:12] VITALS: BMI 29.2
== END 2022-12-27 11:30 | disposition home or self-care (01) ==
LOC: HO.HVS 11:05
PROVIDERS: PCP Internal Medicine Geriatric Medicine; Visit Provider Surgery Vascular Surgery
DX: R10.9 Unspecified abdominal pain (principal)
CPT/HCPCS: 99203

== ENCOUNTER → 2022-12-27 11:05 | Outpatient (BNVA) | payer OTHER, MEDICAID, SELFPAY | PROVIDERS: PCP Internal Medicine Geriatric Medicine; Visit Provider Surgery Vascular Surgery | DX: R10.9 Unspecified abdominal pain (principal) | CPT/HCPCS: 99202 ==

== ENCOUNTER 2023-01-09 14:17 | Outpatient (AMB) | payer MEDICARE, MEDICAID, SELFPAY ==
--- NOTE | 2023-01-09 14:24 | MHC.OFFVIS ---
Intake Vital Signs 01/09/23 14:31 Height 5 ft 4 in BP 127/62 Blood Pressure Location Rt brachial Position Sitting Pulse 83 Pulse Source Pulse Oximeter Pulse Oximetry (%) 99 Oxygen Delivery Method Room Air Intake Visit Reasons: 4 month follow up Intake Note: Patient is here for a 4 month follow up. patient stated she was recently at [facility] and needed blood transfussion and also ended up in AFIB Allergies gluten Allergy (Verified 01/09/23 14:29) Unknown scallops Allergy (Verified 01/09/23 14:29) Unknown Medication List - Last Reconciled 01/09/23 by Shaquille Trivedi MD acetaminophen ER (Tylenol 8 Hour) 1,300 mg PO Q8H PRN albuterol sulfate 90 mcg/actuation 2 puffs inhalation Q4H PRN amlodipine 2.5 mg PO DAILY 90 days ascorbic acid (vitamin C) 500 mg PO DAILY aspirin (Adult Low Dose Aspirin) 81 mg PO DAILY atorvastatin 40 mg PO DAILY betamethasone valerate 0.1% 1 appl topical DAILY biotin 5 mg PO DAILY cephalexin 500 mg PO BID cholecalciferol (vitamin D3) 50 mcg PO DAILY cyanocobalamin (vitamin B-12) 1,000 mcg PO DAILY famotidine 40 mg PO BID latanoprost 0.005% 1 drp ophthalmic (eye) BEDTIME levetiracetam (Keppra) 750 mg PO BID levothyroxine 112 mcg PO DAILY lidocaine 4% 1 appl topical TID PRN loperamide 2 mg PO QID PRN magnesium 500 mg PO DAILY melatonin 10 mg PO BEDTIME metformin 500 mg PO BID milk thistle 500 mg PO BID mirabegron ER (Myrbetriq) 50 mg PO DAILY naloxone 4 mg/actuation 4 mg intranasal Q2M PRN omeprazole 20 mg PO BID oxycodone-acetaminophen 5-325 mg 1 tab PO BID PRN peg 400-propylene glycol (PF) 0.4-0.3 % (Systane (PF)) 1 drp ophthalmic (eye) BID simethicone 125 mg PO TID PRN ticagrelor (Brilinta) 90 mg PO BID vancomycin 125 mg PO QID vancomycin 125 mg PO QID 4 days zinc 50 mg PO DAILY HPI HPI Comments History of Present Illness Details Pleasant 77-year-old female who is here for follow-up. She has background history of coronary artery disease underwent primary PCI to left anterior descending artery in the past. She was complaining of chest discomfort. She is not very active and has been wheelchair bound. Given her pain at rest we decided to arrange stress test which was abnormal showing inferior and inferoseptal perfusion defect. She was taken for cardiac catheterization after discussion which showed severe right coronary artery as well as LAD stenosis. She underwent PCI to RCA and staged PCI to the LAD. She has no chest discomfort on follow up. She still has BRADLEY. She is very deconditioned and does not do much activities. I have discussed with her about cardiac rehab but she cannot come for frequent visits due to transport issues. She previously saw a cookie padder and will d/w PCP to be referred again. 01/09/2023: She returns for follow-up. In November 2022 she got admitted to [facility] with GI bleed. Her aspirin and ticagrelor were held and she underwent endoscopy and no obvious cause was found. She subsequently had C diff infection also. She is waiting to undergo capsule endoscopy. She is denying any bleeding at this point. She is taking aspirin ticagrelor. No chest discomfort or significant shortness of breath. Blood pressure control is good. [facility] Medical History (Updated 01/09/23 @ 15:36 by Shaquille Trivedi MD) Anemia CAD (coronary artery disease) CVA (cerebral vascular accident) Essential hypertension Lower GI bleed Rectal bleed Stable angina Surgical History (Updated 01/09/23 @ 15:36 by Shaquille Trivedi MD) History of adenoidectomy History of appendectomy History of cardiac cath History of section History of cholecystectomy Hx of hernia repair Hx of tonsillectomy Status post cardiac catheterization Family History Mother Cancer Father Heart attack Social History Household Members: Children Housing: House Do you presently have visiting nurse or other home services: Yes Alcohol intake: never Patient Tobacco Use Status: Former Tobacco user Quit Date: 11/18/03 Years Smoked: 30 +/- e-Cigarette/Vaping Use: Never Used Second Hand Smoke Exposure: No Substance Use Type: IV Drugs service: No Current occupational status: retired Review of Systems Const Denies fatigue, Denies fever(s), Denies frequent falls, Denies weight gain and Denies weight loss ENT Denies dizziness Card Denies chest pain, Denies leg edema, Denies lightheadedness, Denies dyspnea, Denies dyspnea on exertion, Denies orthopnea and Reports other (loss of consciousness) Resp Denies cough, Denies dyspnea and Denies dyspnea on exertion GI Denies hematochezia and Denies change in bowel habits Musc Denies abnormal gait, Denies muscle weakness, Denies numbness, Denies radiating pain into limb and Denies tingling Neuro Denies abnormal gait, Denies dizziness, Denies frequent falls, Denies numbness and Denies tingling Endo Denies fatigue Physical Exam Vital Signs: Last Vital Signs Pulse 83 01/09/23 14:31 BP 127/62 01/09/23 14:31 Pulse Ox 99 01/09/23 14:31 Oxygen Delivery Method Room Air 01/09/23 14:31 GENERAL APPEARANCE: in no acute distress. NECK/THYROID: no carotid bruit, no jugular venous distention. SKIN: no suspicious lesions, warm and dry. HEART: no murmurs, regular rate and rhythm, S1, S2 normal. LUNGS: clear to auscultation bilaterally. ABDOMEN: normal, bowel sounds present, soft, nontender, nondistended. EXTREMITIES: no clubbing, cyanosis, or edema. PERIPHERAL PULSES: equal. NEUROLOGIC: nonfocal, alert and oriented. PSYCH: mood/affect full range. Assessment & Plan Assessment & Plan (1) S/P coronary angioplasty: Code(s): Z98.61 - Coronary angioplasty status (2) Stable angina: Code(s): I20.8 - Other forms of angina pectoris (3) GI (gastrointestinal bleed): Code(s): K92.2 - Gastrointestinal hemorrhage, unspecified Plan Pleasant 77 year female here for follow-up. She has stable angina. She has known history of coronary disease with previous PCI to RCA and LAD in May 2022. She recently had GI bleed and aspirin Brilinta were held and she underwent endoscopy which revealed no obvious etiology for the bleeding. She may get capsule endoscopy. She is taking aspirin Brilinta right now. She has high bleeding risk profile given her age and female gender and already had in GI bleed with no obvious cause found. I have discussed with the patient and will stop the aspirin and Brilinta and just transition her to Plavix 75 mg on a therapy. Explained this to the patient and her son. She will pick the Plavix and stop taking aspirin and Brilinta. Thank you for allowing me to participate in the care of your patient. Please feel free to contact me if you have any questions. Medications: New clopidogrel 75 mg PO DAILY 100 tabs 3RF Coding Level of Care Code Est Pt Level 4 (19344) Diagnoses S/P coronary angioplasty Z98.61 Stable angina I20.8 GI (gastrointestinal bleed) K92.2
[2023-01-09 14:31] VITALS: BP 127/62; PULSE 83; O2SAT 99
== END 2023-01-09 14:49 | disposition home or self-care (01) ==
PROVIDERS: Visit Provider Internal Medicine Cardiovascular Disease
DX: Z98.61 Coronary angioplasty status (principal); I20.8 Other forms of angina pectoris; K92.2 Gastrointestinal hemorrhage, unspecified
CPT/HCPCS: 99214

== ENCOUNTER → 2023-01-09 14:17 | Outpatient (BNVA) | payer MEDICARE, MEDICAID, SELFPAY | PROVIDERS: Visit Provider Internal Medicine Cardiovascular Disease | DX: I20.8 Other forms of angina pectoris (principal); K92.2 Gastrointestinal hemorrhage, unspecified; Z98.61 Coronary angioplasty status | CPT/HCPCS: 99212 ==

== ENCOUNTER 2023-01-16 10:03 | Outpatient (REF) | payer MEDICARE, MEDICAID, SELFPAY ==
--- NOTE | ~2023-01-16 | CT_ITS ---
EXAMINATION: CT ENTEROGRAPHY ABDOMEN AND PELVIS WITH CONTRAST CLINICAL INFORMATION: Anemia COMPARISON: Previous CT of the abdomen and pelvis most recent 11/19/2022 TECHNIQUE: Study performed with oral VoLumen (1350 mL) and 480 mL of water to distend the abdomen. The patient was injected with 85 mL Omnipaque 350 intravenous contrast which was administered without adverse effect. Coronal and sagittal reformatted images were obtained at the technologist's workstation. This CT examination was performed using dose optimization techniques as appropriate, variously including the following: *Automated exposure control *Adjustment of mA and/or kV according to patient size (this includes techniques or standardized protocols for targeted exams where dose is matched to indication/reason for exam; i.e. extremities or head) *Use of iterative reconstruction technique DLP: 297 mGy-cm FINDINGS: GASTROINTESTINAL FINDINGS: Stomach: Well-distended. Moderate size hiatal hernia. Small intestine: Satisfactorily distended and normal in appearance. Large intestine: Diverticulosis.. Well-distended and otherwise normal in appearance. No perirectal changes demonstrated. The appendix is not seen. Additional findings: No abnormal enhancement of the vasa recta or significant mesenteric or retroperitoneal lymphadenopathy is seen. No abdominal abscess or fistulous tract demonstrated. ABDOMINAL AND PELVIC CT FINDINGS: Liver, gallbladder, biliary tract: The liver is normal. The gallbladder has been removed. No biliary duct dilatation. Pancreas: Normal Spleen: Normal Adrenal glands and kidneys: The adrenal glands are normal. Left kidney is smaller than the right and there are areas of left renal cortical thinning or scarring. There is a small right renal cyst and mild right renal cortical thinning or scarring. No imaging follow-up recommended. Ureters and bladder: There is a pessary in the pelvis. Bladder and pelvic structures otherwise unremarkable. Lymphovascular structures: No ascites. No adenopathy. Atherosclerotic disease. Bones: Degenerative changes. Lung bases: Cystic changes. Moderate hiatal hernia. Severe coronary artery calcification. CT/CT enterography IMPRESSION: Severe diverticulosis of the colon. Moderate size hiatal hernia. Small left renal stone. Areas of renal cortical thinning or scarring, left greater than right.
== END 2023-01-16 10:04 | disposition home or self-care (01) ==
LOC: HO.CT 10:03
PROVIDERS: PCP Internal Medicine Geriatric Medicine; Visit Provider Internal Medicine
DX: D64.9 Anemia, unspecified (principal)
CPT/HCPCS: 74177

== ENCOUNTER → 2023-01-17 08:18 | Outpatient (BNVA) | payer OTHER, MEDICAID, SELFPAY | PROVIDERS: PCP Internal Medicine Geriatric Medicine; Visit Provider Internal Medicine ==

== ENCOUNTER 2023-02-13 11:16 | Outpatient (AMB) | payer OTHER, MEDICAID, SELFPAY ==
--- NOTE | 2023-02-13 11:22 | MHC.OFFVIS ---
Intake Vital Signs 02/13/23 11:24 Height 5 ft 4 in Weight 126 lb BMI 21.6 BP 129/60 Blood Pressure Location Lt brachial Position Sitting Pulse 88 Intake Visit Reasons: Follow Up Capsule Endoscopy Intake Note: Celeste presents in as a follow up capsule. CC: CT Scan and Capsule Follow Up - No Concerns. Environmental Science Technician Required: No Allergies gluten Allergy (Verified 02/13/23 11:26) Unknown scallops Allergy (Verified 02/13/23 11:26) Unknown HPI HPI Comments History of Present Illness Details This is a 77-year-old female with extensive coronary artery disease status post PCI May 2022, on dual anti-platelet therapy, hypertension, hyperlipidemia, who was recently admitted for severe anemia with GI consultation for GI bleed. Inpt consultation 11/20/22: History was obtained the patient, who states that she has been having intermittent abdominal pain with weakness, shortness of breath and lightheadedness for a few months now. Also reports an unintentional weight loss of > 10lbs in the last few months which she charts to diarrhea. In terms of the diarrhea, describes it as loose, watery occuring up to 5-6 times a day. Most recently has progressed in the last 2 weeks to the point that she is unable to step out of the home for more than a few minutes. Night time sx +. No blood in stool or melena. Specifically describes stool as yellow to brown. She was seen by her PCP for these sx on Monday who ordered blood work and she received a call Monday morning to go to the ER due to drop in H/H requiring blood transfusion. Last colo per her report was more than 5 years ago and was incomplete due to difficult sigmoid colon . She does not recall if she had a follow up barium enema or colonography. Son (Raymundo) at bedside also gives a hx of anemia a few years ago for which she was seen at [facility] but states that pt was told she had internal bleeding and was discharged from the ER, does not recall if a GI work up was recommended at that time. On arrival to the emergency room, she was noted to be hemodynamically stable.? Labs were significant for acute drop in hemoglobin to 7.2, with mildly elevated leukocytosis and a narrow MCV of 72.6.? s/p 2U PRBC transfusion. She also underwent CT abdomen pelvis with IV contrast that does not show any acute findings to explain the weight loss. 11/24/22 - EGD/colo: Impression: 1. Normal esophagus 2. Large Hill grade IV hiatal hernia 3. Normal stomach (biopsy) 4. Normal duodenum (biopsy) 5. Normal colon and terminal ileum mucosa 6. Diverticulosis 7. Internal hemorrhoids Path: A.? Duodenum, biopsy:? Duodenal mucosa within normal limits. B.? Stomach, random, biopsy:? Antral-type and oxyntic mucosa with mild chronic inactive inflammation; no Helicobacter organisms seen. 12/12/22: Pt comes in accompanied by her son for follow up post procedure. Of note, was recently informed by urgent care that stool study was positive for C Diff. On Vanc PO, has completed 5 days already. Otherwise, sx are unchanged: abd pain, bloating, diarrhea. Fatigue and shortness of breath better since improvement in anemia. Labs reviewed. CTE 01/16/23: Severe diverticulosis of the colon. Moderate size hiatal hernia. Small left renal stone. Areas of renal cortical thinning or scarring, left greater than right. 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 02/13/23: Currently no abd pain, N,V. Diarrhea resolved but comes and goes. Reports issues with fecal incontinence. Also sees UroGYN for urinary incontinence. Has been taking iron supplements daily. Pt also has been transitioned to plavix monotherapy from ASA+ brillinta. [facility] Medical History Anemia CAD (coronary artery disease) CVA (cerebral vascular accident) Essential hypertension Lower GI bleed Rectal bleed Stable angina Surgical History History of adenoidectomy History of appendectomy History of cardiac cath History of section History of cholecystectomy Hx of hernia repair Hx of tonsillectomy Status post cardiac catheterization Family History Mother Cancer Father Heart attack Social History Household Members: Children Housing: House Do you presently have visiting nurse or other home services: Yes Alcohol intake: never Patient Tobacco Use Status: Former Tobacco user Quit Date: 11/18/03 Years Smoked: 30 +/- e-Cigarette/Vaping Use: Never Used Second Hand Smoke Exposure: No Substance Use Type: IV Drugs service: No Current occupational status: retired Review of Systems Const All systems reviewed & are unremarkable except as noted in HPI and below Physical Exam Vital Signs: Last Vital Signs Pulse 88 02/13/23 11:24 BP 129/60 02/13/23 11:24 BMI result Body Mass Index 21.6 Gen appear: NAD HEENT: nonicteric, no cervical lymphadenopathy Chest: CTA CVS: Regular S1/S2 Abd: soft, nontender, nondistended, bowel sounds + Ext: no peripheral edema Neuro: A/Ox3, seated in motorized wheelchair Psych: interacting appropriately Assessment & Plan Assessment & Plan (1) Anemia: Code(s): D64.9 - Anemia, unspecified Plan Discussed with the pt that work up so far including EGD/colo, CTE, VCE is negative for obvious GI bleeding. Anemia was assumed to be HARJIT due to microcytosis and reported melena however iron studies were not checked in November as pt had already had x2U transfusions by the time she was seen for consultation. Plan: - Check CBC and iron studies - If iron studies adequately repleted, hold iron supplements and recheck labs in 3 months - if anemia and iron levels trend down, will review further management for obscure GIB - However if iron levels adequate but anemia worsens will refer to Heme. Follow up contingent on above. Orders: Orders Ferritin Today D64.9 - Anemia, unspecified IRON PROFILE Today D64.9 - Anemia, unspecified Complete Blood Count no Diff Today D64.9 - Anemia, unspecified Coding Level of Care Code Est Pt Level 4 (90464) Diagnoses Anemia D64.9
[2023-02-13 11:24] VITALS: BP 129/60; PULSE 88; BMI 21.6
== END 2023-02-13 16:37 | disposition home or self-care (01) ==
PROVIDERS: PCP Internal Medicine Geriatric Medicine; Visit Provider Internal Medicine
DX: D64.9 Anemia, unspecified (principal)
CPT/HCPCS: 99214

== ENCOUNTER 2023-02-13 11:16 | Outpatient (REF) | payer OTHER, MEDICAID, SELFPAY ==
[2023-02-13 12:59] LABS: Hematocrit 35.7 % (37.0-47.0); Hemoglobin 10.5 g/dl (12.0-16.0); Mean Corpuscular HGB Conc 29.4 g/dl (31.0-35.0); Mean Corpuscular Hemoglobin 25.2 pg (27.0-33.0); Mean Corpuscular Volume 85.6 fL (80.0-98.0); Mean Platelet Volume 10.3 fL (9.4-12.3); Platelet Count 305 X10*3/uL (160-400); Red Blood Count 4.17 X10*6/uL (4.20-5.50); Red Cell Distribution Width 21.2 % (11.0-16.0)
[2023-02-13 14:00] LABS: Iron 172 mcg/dL (30-160); Percent Iron Saturation 50 % (15-50); Total Iron Binding Capacity 341 mcg/dL (228-428); Unsaturated Iron Binding 169 ug/dL
[2023-02-13 14:03] LABS: Ferritin 36 ng/mL (10-250)
== END 2023-02-13 11:17 | disposition home or self-care (01) ==
LOC: HO.LAB 11:16
PROVIDERS: PCP Internal Medicine Geriatric Medicine; Visit Provider Internal Medicine
DX: D64.9 Anemia, unspecified (principal)
CPT/HCPCS: 36415; 82728; 83540; 85027; 99212

== ENCOUNTER 2023-04-21 14:38 | Outpatient (REF) | payer OTHER, MEDICAID, SELFPAY ==
[2023-04-21 16:02] LABS: MANUAL DIFF FLAG NO
[2023-04-21 16:14] LABS: Basophils Percent Auto 0.5 % (0-2); Eosinophils Absolute Auto 0.1 X10*3/uL (0.0-0.4); Eosinophils Percent Auto 2.5 % (0-4); Hematocrit 37.2 % (37.0-47.0); Hemoglobin 11.4 g/dl (12.0-16.0); Imm Gran Abs Auto 0.01 X10*3/uL (0.00-0.03); Imm Gran Pct Auto 0.2 % (0.0-0.4); Lymphocytes Absolute Auto 1.9 X10*3/uL (1.2-4.9); Lymphocytes Percent Auto 33.2 % (20-40); Mean Corpuscular HGB Conc 30.6 g/dl (31.0-35.0); Mean Corpuscular Hemoglobin 25.4 pg (27.0-33.0); Mean Corpuscular Volume 82.9 fL (80.0-98.0); Mean Platelet Volume 10.6 fL (9.4-12.3); Monocytes Absolute Auto 0.5 X10*3/uL (0.1-1.2); Monocytes Percent Auto 9.1 % (2-11); Neutrophils Absolute Auto 3.1 x10*3/uL (2.0-8.3); Neutrophils Percent Auto 54.5 % (45-73); Platelet Count 307 X10*3/uL (160-400); Red Blood Count 4.49 X10*6/uL (4.20-5.50); Red Cell Distribution Width 17.2 % (11.0-16.0); White Blood Count 5.7 X10*3/uL (4.8-10.8)
[2023-04-21 16:24] LABS: Iron 21 mcg/dL (30-160); Percent Iron Saturation 6 % (15-50); Total Iron Binding Capacity 350 mcg/dL (228-428); Unsaturated Iron Binding 329 ug/dL
== END 2023-04-21 14:39 | disposition home or self-care (01) ==
LOC: HO.HHCL 14:38
PROVIDERS: Visit Provider Internal Medicine Geriatric Medicine
DX: D64.9 Anemia, unspecified (principal)
CPT/HCPCS: 36415; 83540; 85025

== ENCOUNTER 2023-05-15 13:15 | Outpatient (AMB) | payer MEDICARE, SELFPAY ==
[2023-05-15 13:28] VITALS: BP 110/68; PULSE 92; O2SAT 95
--- NOTE | 2023-05-15 13:28 | MHC.OFFVIS ---
Intake Vital Signs 05/15/23 13:28 Height 5 ft 4 in BMI Reason not done Patient refused/unable BP 110/68 Blood Pressure Location Rt brachial Position Sitting Pulse 92 Pulse Source Pulse Oximeter Pulse Oximetry (%) 95 Oxygen Delivery Method Room Air Intake Visit Reasons: 4 mth fu Intake Note: Pt presents to the office today for a 4 month follow up. Pt states she is feeling lousy. Pt states she had an episode a few weeks ago where she had severe indigestion and jaw pain but no chest pain or palpitations. Pt states she also feels like her heart is beating really fast every few days. Allergies gluten Allergy (Verified 05/15/23 13:32) Unknown scallops Allergy (Verified 05/15/23 13:32) Unknown Medication List - Last Reconciled 05/15/23 by Shaquille Trivedi MD acetaminophen ER (Tylenol 8 Hour) 1,300 mg PO Q8H PRN albuterol sulfate 90 mcg/actuation 2 puffs inhalation Q4H PRN amlodipine 2.5 mg PO DAILY 90 days ascorbic acid (vitamin C) 500 mg PO DAILY atorvastatin 40 mg PO DAILY betamethasone valerate 0.1% 1 appl topical DAILY biotin 5 mg PO DAILY cholecalciferol (vitamin D3) 50 mcg PO DAILY clopidogrel 75 mg PO DAILY cyanocobalamin (vitamin B-12) 1,000 mcg PO DAILY famotidine 40 mg PO BID ferrous sulfate 325 mg PO QAM latanoprost 0.005% 1 drp ophthalmic (eye) BEDTIME levetiracetam (Keppra) 750 mg PO BID levothyroxine 112 mcg PO DAILY lidocaine 4% 1 appl topical TID PRN loperamide 2 mg PO QID PRN magnesium 500 mg PO DAILY melatonin 10 mg PO BEDTIME metformin 500 mg PO BID milk thistle 500 mg PO BID mirabegron ER (Myrbetriq) 50 mg PO DAILY naloxone 4 mg/actuation 4 mg intranasal Q2M PRN oxycodone-acetaminophen 5-325 mg 1 tab PO BID PRN pantoprazole 40 mg PO DAILY peg 400-propylene glycol (PF) 0.4-0.3 % (Systane (PF)) 1 drp ophthalmic (eye) BID simethicone 125 mg PO TID PRN zinc 50 mg PO DAILY HPI HPI Comments History of Present Illness Details Pleasant 77-year-old female who is here for follow-up. She has background history of coronary artery disease underwent primary PCI to left anterior descending artery in the past. She was complaining of chest discomfort. She is not very active and has been wheelchair bound. Given her pain at rest we decided to arrange stress test which was abnormal showing inferior and inferoseptal perfusion defect. She was taken for cardiac catheterization after discussion which showed severe right coronary artery as well as LAD stenosis. She underwent PCI to RCA and staged PCI to the LAD. She has no chest discomfort on follow up. She still has BRADLEY. She is very deconditioned and does not do much activities. I have discussed with her about cardiac rehab but she cannot come for frequent visits due to transport issues. She previously saw a manager heavy duty and will d/w PCP to be referred again. 01/09/2023: She returns for follow-up. In November 2022 she got admitted to [facility] with GI bleed. Her aspirin and ticagrelor were held and she underwent endoscopy and no obvious cause was found. She subsequently had C diff infection also. She is waiting to undergo capsule endoscopy. She is denying any bleeding at this point. She is taking aspirin ticagrelor. No chest discomfort or significant shortness of breath. Blood pressure control is good. 05/15/23: She returns for follow-up. She has been experiencing some palpitations. She had blood workup done recently which is showing iron deficiency. She was previously told to hold her iron supplements. I have advised to restart them. She also had 1 episode of indigestion like chest discomfort. [facility] Medical History Lower GI bleed Rectal bleed Anemia Stable angina Essential hypertension CVA (cerebral vascular accident) CAD (coronary artery disease) Surgical History Status post cardiac catheterization History of cardiac cath History of adenoidectomy Hx of tonsillectomy Hx of hernia repair History of section History of cholecystectomy History of appendectomy Family History Mother Cancer Father Heart attack Household Members: Children Housing: House Do you presently have visiting nurse or other home services: Yes Alcohol intake: never Patient Tobacco Use Status: Former Tobacco user Quit Date: 11/18/03 Years Smoked: 30 +/- e-Cigarette/Vaping Use: Never Used Second Hand Smoke Exposure: No Substance Use Type: IV Drugs service: No Current occupational status: retired Physical Exam Vital Signs: Last Vital Signs Pulse 92 05/15/23 13:28 BP 110/68 05/15/23 13:28 Pulse Ox 95 05/15/23 13:28 Oxygen Delivery Method Room Air 05/15/23 13:28 GENERAL APPEARANCE: in no acute distress. NECK/THYROID: no carotid bruit, no jugular venous distention. SKIN: no suspicious lesions, warm and dry. HEART: no murmurs, regular rate and rhythm, S1, S2 normal. LUNGS: clear to auscultation bilaterally. ABDOMEN: normal, bowel sounds present, soft, nontender, nondistended. EXTREMITIES: no clubbing, cyanosis, or edema. PERIPHERAL PULSES: equal. NEUROLOGIC: nonfocal, alert and oriented. PSYCH: mood/affect full range. Assessment & Plan Assessment & Plan (1) Palpitations: Code(s): R00.2 - Palpitations (2) S/P coronary angioplasty: Code(s): Z98.61 - Coronary angioplasty status Plan Pleasant 77 year female with known history of coronary artery disease with previous PCI. She is currently on Plavix monotherapy due to GI blood loss. She had capsule endoscopy performed which was negative. She was advised to be taken off the iron supplements by GI and her iron studies have shown iron deficiency. I have advised her to resume iron supplements. She is complaining of palpitations which happening 2 to 3 times a week. We will arrange Holter monitor to rule out atrial fibrillation. One episode of indigestion like chest discomfort. This has not recurred since then. Thank you for allowing me to participate in the care of your patient. Please feel free to contact me if you have any questions. Orders: Orders ECG 7 day holter monitor Today R00.2 - Palpitations Coding Level of Care Code Est Pt Level 4 (33971) Diagnoses Palpitations R00.2 S/P coronary angioplasty Z98.61
== END 2023-05-15 13:55 | disposition home or self-care (01) ==
PROVIDERS: PCP Internal Medicine Geriatric Medicine; Visit Provider Internal Medicine Cardiovascular Disease
DX: R00.2 Palpitations (principal); Z98.61 Coronary angioplasty status
CPT/HCPCS: 99214

== ENCOUNTER → 2023-05-15 13:15 | Outpatient (BNVA) | payer MEDICARE, MEDICAID, SELFPAY | PROVIDERS: PCP Internal Medicine Geriatric Medicine; Visit Provider Internal Medicine Cardiovascular Disease | DX: R00.2 Palpitations (principal); R06.00 Dyspnea, unspecified; I25.10 Atherosclerotic heart disease of native coronary artery without angina pectoris; I10 Essential (primary) hypertension; Z98.890 Other specified postprocedural states; Z98.61 Coronary angioplasty status; Z99.3 Dependence on wheelchair | CPT/HCPCS: 99212 ==

== ENCOUNTER 2023-06-01 12:17 | Outpatient (AMB) | payer MEDICARE, SELFPAY ==
--- NOTE | 2023-06-01 12:19 | A.OFFVIS_ITS ---
Intake Vital Signs 06/01/23 12:26 Height 5 ft 4 in BP 142/63 H Blood Pressure Location Lt brachial Position Sitting Pulse 78 Intake Visit Reasons: Guillermo Cotton PT follow up Labs Intake Note: Dr. Li patient follow up for lab results. Patient cc: dysphagia on and off, between diarrhea and constipation. 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 Li. Dr. Li's last note is as follows: Assessment & Plan Assessment & Plan (1) Anemia: Code(s): D64.9 - Anemia, unspecified Plan Discussed with the pt that work up so far including EGD/colo, CTE, VCE is negative for obvious GI bleeding. Anemia was assumed to be HARJIT due to microcytosis and reported melena however iron studies were not checked in November as pt had already had x2U transfusions by the time she was seen for consultation. Plan: - Check CBC and iron studies - If iron studies adequately repleted, h old iron supplements and recheck labs in 3 months - if anemia and iron levels trend down, will review further management for obscure GIB - However if iron levels adequate but anemia worsens will refer to Heme. Follow up contingent on above. Orders: Orders Ferritin Today D64.9 - Anemia, unspecified IRON PROFILE Today D64.9 - Anemia, unspecified Complete Blood Count no Diff Today D64.9 - Anemia, unspecified LABS: Laboratory Tests 02/13/23 04/21/23 11:59 14:40 WBC 5.7 Hgb 11.4 L Hct 37.2 MCV 82.9 MCH 25.4 L MCHC 30.6 L RDW 17.2 H Plt Count 307 Iron 21 L TIBC 350 % Saturation 6 L Unsat Iron Binding 329 Ferritin 36 TODAY'S VISIT As the serum iron is still low in the ferritin on the low end I will have her continue her oral iron replacement therapy for 8 more weeks and then follow-up with Dr. Li. She was told by another doctor when she called to stop her oral iron. I was going to have her continue the iron, but now I am completely unsure of the plan going forward. She has had some conflicting information with her junior linux administrator telling her I need to go back on the iron right away. She also will be seeing her PCP this week. This is Dr. Marshall. I will have labs printed for Dr. Name. RAMOS with Dr. Guillermo turk after she returns to clarify plan. I don't know what other doctor is also involved in her situation/plan. [facility] Medical History Lower GI bleed Rectal bleed Anemia Stable angina Essential hypertension CVA (cerebral vascular accident) CAD (coronary artery disease) Surgical History Status post cardiac catheterization History of cardiac cath History of adenoidectomy Hx of tonsillectomy Hx of hernia repair History of section History of cholecystectomy History of appendectomy Family History Mother Cancer Father Heart attack Social History Household Members: Children Housing: House Do you presently have visiting nurse or other home services: Yes Alcohol intake: never Patient Tobacco Use Status: Former Tobacco user Quit Date: 11/18/03 Years Smoked: 30 +/- e-Cigarette/Vaping Use: Never Used Second Hand Smoke Exposure: No Substance Use Type: IV Drugs service: No Current occupational status: retired Review of Systems Const Denies fatigue, Denies fever(s), Denies night sweats, Denies poor appetite and Denies weight loss Eyes Details: glasses Reports requires corrective lenses ENT Reports Normal hearing present, Denies dental pain, Denies dysphagia, Denies hearing loss, Denies mouth pain, Denies odynophagia, Denies throat swelling, Denies tongue swelling and Reports other (Dentition adequate) Card Reports no additional complaints Resp Reports no additional complaints GI Denies abdominal pain, Denies melena, Denies bloating, Denies hematochezia, Reports constipation, Denies GI cramping, Denies dysphagia, Denies excessive flatus, Denies early satiety, Denies heartburn, Reports diarrhea, Denies nausea, Denies odynophagia, Denies vomiting and Denies hematemesis Skin/Breast Denies pruritus, Denies lesions, Denies rash and Denies jaundice Neuro Reports Normal hearing present and Denies Abnormal speech present Endo Denies fatigue Aller/Immun Denies throat swelling and Denies tongue swelling Physical Exam Vital Signs: Last Vital Signs Pulse 78 06/01/23 12:26 BP 142/63 H 06/01/23 12:26 Const General: cooperative, no acute distress, well developed and well groomed Nutritional Appearance: well nourished Orientation/consciousness: oriented to person, oriented to place and oriented to time Limitations: No language barrier and wheelchair HEENT Head: Yes normocephalic and Yes atraumatic Eyes General: appearance normal, both eyes and all related structures Pupils: Equal, round and reactive pupils present Neck Neck: Yes normal visual inspection Resp Effort & Inspection: normal respiratory effort and able to speak in complete sentences Skin General skin exam: no rashes or lesions noted, turgor normal, skin not dry, no jaundice, No spider nevi and no striae Rashes: no rashes Nails: normal Neuro General: oriented to person, oriented to place and oriented to time Cranial nerves: Yes Equal, round and reactive pupils present and Yes Normal hearing present Speech: No Abnormal speech present Psych Appearance: grossly normal and well kempt Mental Status: mental status grossly normal Thought process: Normal thought process present and not confabulating Thought content: Normal thought content present Insight: Limited insight present (Psych) Judgement: Limited judgement present (Psych) Assessment & Plan Assessment & Plan (1) Anemia: Code(s): D64.9 - Anemia, unspecified Plan As the serum iron is still low in the ferritin on the low end I will have her continue her oral iron replacement therapy for 8 more weeks and then follow-up with Dr. Li. She was told by another doctor when she called to stop her oral iron. I was going to have her continue the iron, but now I am completely unsure of the plan going forward. She has had some conflicting information with her junior linux administrator telling her I need to go back on the iron right away. She also will be seeing her PCP this week. This is Dr. Marshall. I will have labs printed for Dr. Name. RAMOS with Dr. Guillermo turk after she returns to clarify plan. I don't know what other doctor is also involved in her situation/plan. Coding Level of Care Code Est Pt Level 3 (10785) Diagnoses Anemia D64.9
[2023-06-01 12:26] VITALS: BP 142/63; PULSE 78
== END 2023-06-01 12:44 | disposition home or self-care (01) ==
PROVIDERS: PCP Internal Medicine Geriatric Medicine; Visit Provider Nurse Practitioner
DX: D64.9 Anemia, unspecified (principal)
CPT/HCPCS: 99213

== ENCOUNTER → 2023-06-01 12:17 | Outpatient (BNVA) | payer MEDICARE, SELFPAY | PROVIDERS: PCP Internal Medicine Geriatric Medicine; Visit Provider Nurse Practitioner | DX: D64.9 Anemia, unspecified (principal) | CPT/HCPCS: 99212 ==

== ENCOUNTER 2023-07-24 14:12 | Outpatient (REF) | payer MEDICARE, SELFPAY ==
[2023-07-24 15:18] LABS: Hematocrit 35.8 % (37.0-47.0); Hemoglobin 11.3 g/dl (12.0-16.0); Mean Corpuscular HGB Conc 31.6 g/dl (31.0-35.0); Mean Corpuscular Hemoglobin 25.2 pg (27.0-33.0); Mean Corpuscular Volume 79.7 fL (80.0-98.0); Mean Platelet Volume 9.9 fL (9.4-12.3); Platelet Count 316 X10*3/uL (160-400); Red Blood Count 4.49 X10*6/uL (4.20-5.50); Red Cell Distribution Width 16.4 % (11.0-16.0); White Blood Count 7.3 X10*3/uL (4.8-10.8)
[2023-07-24 16:15] LABS: Iron 21 mcg/dL (30-160); Percent Iron Saturation 6 % (15-50); Total Iron Binding Capacity 372 mcg/dL (228-428); Unsaturated Iron Binding 351 ug/dL
[2023-07-24 16:31] LABS: Ferritin 18 ng/mL (10-250)
== END 2023-07-24 14:13 | disposition home or self-care (01) ==
LOC: HO.LAB 14:12
PROVIDERS: PCP Internal Medicine Geriatric Medicine; Visit Provider Internal Medicine
DX: D64.9 Anemia, unspecified (principal)
CPT/HCPCS: 36415; 82728; 83540; 85027

== ENCOUNTER 2023-07-31 11:19 | Outpatient (AMB) | payer MEDICARE, SELFPAY ==
--- NOTE | 2023-07-31 11:26 | A.OFFVIS_ITS ---
Intake Vital Signs 07/31/23 11:30 Height 5 ft 1.5 in Weight 132 lb BMI 24.5 BP 118/59 L Blood Pressure Location Lt brachial Position Sitting Pulse 83 Intake Visit Reasons: follow up Intake Note: Patient follow up for Anemia. .Patient cc: rectal bleeding with mucous, and between diarrhea and constipation. is with bladder infection and do not wanted to take the antibiotics due the site effect. 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 Inpt consultation 11/20/22: History was obtained the patient, who states that she has been having intermittent abdominal pain with weakness, shortness of breath and lightheadedness for a few months now. Also reports an unintentional weight loss of > 10lbs in the last few months which she charts to diarrhea. In terms of the diarrhea, describes it as loose, watery occuring up to 5-6 times a day. Most recently has progressed in the last 2 weeks to the point that she is unable to step out of the home for more than a few minutes. Night time sx +. No blood in stool or melena. Specifically describes stool as yellow to brown. She was seen by her PCP for these sx on Monday who ordered blood work and she received a call Monday morning to go to the ER due to drop in H/H requiring blood transfusion. Last colo per her report was more than 5 years ago and was incomplete due to difficult sigmoid colon . She does not recall if she had a follow up barium enema or colonography. Son (Raymundo) at bedside also gives a hx of anemia a few years ago for which she was seen at [place] but states that pt was told she had internal bleeding and was discharged from the ER, does not recall if a GI work up was recommended at that time. On arrival to the emergency room, she was noted to be hemodynamically stable.? Labs were significant for acute drop in hemoglobin to 7.2, with mildly elevated leukocytosis and a narrow MCV of 72.6.? s/p 2U PRBC transfusion. She also underwent CT abdomen pelvis with IV contrast that does not show any acute findings to explain the weight loss. 11/24/22 - EGD/colo: Impression: 1. Normal esophagus 2. Large Hill grade IV hiatal hernia 3. Normal stomach (biopsy) 4. Normal duodenum (biopsy) 5. Normal colon and terminal ileum mucos a 6. Diverticulosis 7. Internal hemorrhoids Path: A.? Duodenum, biopsy:? Duodenal mucosa within normal limits. B.? Stomach, random, biopsy:? Antral-type and oxyntic mucosa with mild chronic inactive inflammation; no Helicobacter organisms seen. 12/12/22: Pt comes in accompanied by her son for follow up post procedure. Of note, was recently informed by urgent care that stool study was positive for C Diff. On Vanc PO, has completed 5 days already. Otherwise, sx are unchanged: abd pain, bloating, diarrhea. Fatigue and shortness of breath better since improvement in anemia. Labs reviewed. CTE 01/16/23: Severe diverticulosis of the colon. Moderate size hiatal hernia. Small left renal stone. Areas of renal cortical thinning or scarring, left greater than right. 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 02/13/23: Currently no abd pain, N,V. Diarrhea resolved but comes and goes. Reports issues with fecal incontinence. Also sees UroGYN for urinary incontinence. Has been taking iron supplements daily. Pt also has been transitioned to plavix monotherapy from ASA+ brillinta. 07/31/23: Was seen by Carlotta Amador in the interim for question recurrent iron-deficiency anemia. Was advised to resume oral iron. However, patient reports that she has still not resumed the iron supplementation. She last to cut back in January. Labs reviewed, hemoglobin trending up, but ferritin is low at 18. [facility] Medical History Lower GI bleed Rectal bleed Anemia Stable angina Essential hypertension CVA (cerebral vascular accident) CAD (coronary artery disease) Surgical History Status post cardiac catheterization History of cardiac cath History of adenoidectomy Hx of tonsillectomy Hx of hernia repair History of section History of cholecystectomy History of appendectomy Family History Mother Cancer Father Heart attack Social History Household Members: Children Housing: House Do you presently have visiting nurse or other home services: Yes Alcohol intake: never Patient Tobacco Use Status: Former Tobacco user Quit Date: 11/18/03 Years Smoked: 30 +/- e-Cigarette/Vaping Use: Never Used Second Hand Smoke Exposure: No Substance Use Type: IV Drugs service: No Current occupational status: retired Review of Systems Const All systems reviewed & are unremarkable except as noted in HPI and below Physical Exam Vital Signs: Last Vital Signs Pulse 83 07/31/23 11:30 BP 118/59 L 07/31/23 11:30 BMI result Body Mass Index 24.5 No acute distress Seated in wheelchair Normal inspiratory effort Assessment & Plan Assessment & Plan (1) Anemia: Code(s): D64.9 - Anemia, unspecified Plan Discussed with the pt that work up so far including EGD/colo, CTE, VCE is negative for overt GI bleeding ? obscure GIB. Pt will need to go back on PO iron supplementation to be continued until ferritin is above 50. Discussed IV iron, but pt reports being a poor IV stick and would like to defer at this time. Plan: - Ferrous sulphate once daily - Check CBC and iron studies in 6 months - Pt also seeing Heme in near future Follow up in 6 months Orders: Orders Complete Blood Count no Diff 6 Months D64.9 - Anemia, unspecified Ferritin 6 Months D64.9 - Anemia, unspecified IRON PROFILE 6 Months D64.9 - Anemia, unspecified Coding Level of Care Code Est Pt Level 4 (63187) Diagnoses Anemia D64.9
[2023-07-31 11:30] VITALS: BP 118/59; PULSE 83; BMI 24.5
== END 2023-07-31 11:58 | disposition home or self-care (01) ==
PROVIDERS: PCP Internal Medicine Geriatric Medicine; Visit Provider Internal Medicine
DX: D64.9 Anemia, unspecified (principal)
CPT/HCPCS: 99214

== ENCOUNTER → 2023-07-31 11:19 | Outpatient (BNVA) | payer MEDICARE, SELFPAY | PROVIDERS: PCP Internal Medicine Geriatric Medicine; Visit Provider Internal Medicine | DX: D64.9 Anemia, unspecified (principal) | CPT/HCPCS: 99212 ==

== ENCOUNTER 2023-09-06 12:29 | Outpatient (AMB) | payer MEDICARE, MEDICAID, SELFPAY ==
[2023-09-06 12:40] VITALS: BP 110/62; PULSE 75; BMI 24.1
--- NOTE | 2023-09-06 12:40 | MHC.OFFVIS ---
Intake Vital Signs 09/06/23 12:40 Height 5 ft 4 in Weight 140 lb 10.479 oz BMI 24.1 BP 110/62 Blood Pressure Location Lt brachial Position Sitting Pulse 75 Pulse Source Pulse Oximeter Intake Visit Reasons: 4 mth f/up 7 day holter Intake Note: pt states that she felt some palpitations more at night but after a few minutes it went away, also more at night she wakes up with some chest pains. 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: No Accompanied by: Self / Same As Patient Allergies gluten Allergy (Verified 07/31/23 11:26) Unknown scallops Allergy (Verified 07/31/23 11:26) Unknown Medication List - Last Reconciled 09/06/23 by Shaquille Trivedi MD acetaminophen ER (Tylenol 8 Hour) 1,300 mg PO Q8H PRN albuterol sulfate 90 mcg/actuation 2 puffs inhalation Q4H PRN amlodipine 2.5 mg PO DAILY 90 days ascorbic acid (vitamin C) 500 mg PO DAILY atorvastatin 40 mg PO DAILY betamethasone valerate 0.1% 1 appl topical DAILY biotin 5 mg PO DAILY cholecalciferol (vitamin D3) 50 mcg PO DAILY clopidogrel 75 mg PO DAILY cyanocobalamin (vitamin B-12) 1,000 mcg PO DAILY famotidine 40 mg PO BID ferrous sulfate 325 mg PO QAM latanoprost 0.005% 1 drp ophthalmic (eye) BEDTIME levetiracetam (Keppra) 750 mg PO BID levothyroxine 112 mcg PO DAILY loperamide 2 mg PO QID PRN magnesium 500 mg PO DAILY melatonin 10 mg PO BEDTIME metformin 500 mg PO BID milk thistle 500 mg PO BID mirabegron ER (Myrbetriq) 50 mg PO DAILY oxycodone-acetaminophen 5-325 mg 1 tab PO BID PRN pantoprazole 40 mg PO DAILY peg 400-propylene glycol (PF) 0.4-0.3 % (Systane (PF)) 1 drp ophthalmic (eye) BID simethicone 125 mg PO TID PRN zinc 50 mg PO DAILY HPI HPI Comments History of Present Illness Details Pleasant 77-year-old female who is here for follow-up. She has background history of coronary artery disease underwent primary PCI to left anterior descending artery in the past. She was complaining of chest discomfort. She is not very active and has been wheelchair bound. Given her pain at rest we decided to arrange stress test which was abnormal showing inferior and inferoseptal perfusion defect. She was taken for cardiac catheterization after discussion which showed severe right coronary artery as well as LAD stenosis. She underwent PCI to RCA and staged PCI to the LAD. She has no chest discomfort on follow up. She still has BRADLEY. She is very deconditioned and does not do much activities. I have discussed with her about cardiac rehab but she cannot come for frequent visits due to transport issues. She previously saw a asset protection officer and will d/w PCP to be referred again. 01/09/2023: She returns for follow-up. In November 2022 she got admitted to [facility] with GI bleed. Her aspirin and ticagrelor were held and she underwent endoscopy and no obvious cause was found. She subsequently had C diff infection also. She is waiting to undergo capsule endoscopy. She is denying any bleeding at this point. She is taking aspirin ticagrelor. No chest discomfort or significant shortness of breath. Blood pressure control is good. 05/15/23: She returns for follow-up. She has been experiencing some palpitations. She had blood workup done recently which is showing iron deficiency. She was previously told to hold her iron supplements. I have advised to restart them. She also had 1 episode of indigestion like chest discomfort. 09/06/2023: She returns for follow-up. It appears her GI workup did not reveal any obvious bleeding source. She has been on iron supplementation since then. Her last hemoglobin in July was 11.3. % saturation of iron is 6% and iron level was 21. She still continues to be iron deficient but overall hemoglobin has improved. She is complaining of some chest discomfort which is a pressure-like feeling which has happened to her a few times at night along with palpitations. We tried to do a Holter monitor but she has a severe allergy to electrodes and tape and at times she had skin breakdown and bleeding. Due to this the monitor was not done. She comes in a wheelchair but walks between rooms. Very rarely she gets some discomfort walking around symptoms are mostly at night times infrequently. [facility] Medical History Lower GI bleed Rectal bleed Anemia Stable angina Essential hypertension CVA (cerebral vascular accident) CAD (coronary artery disease) Surgical History Status post cardiac catheterization History of cardiac cath History of adenoidectomy Hx of tonsillectomy Hx of hernia repair History of section History of cholecystectomy History of appendectomy Family History Mother Cancer Father Heart attack Social History Household Members: Children Housing: House Do you presently have visiting nurse or other home services: Yes Alcohol intake: never Patient Tobacco Use Status: Former Tobacco user Quit Date: 11/18/03 Years Smoked: 30 +/- e-Cigarette/Vaping Use: Never Used Second Hand Smoke Exposure: No Substance Use Type: IV Drugs service: No Current occupational status: retired Review of Systems Const Denies chills, Denies fatigue, Denies fever(s), Denies frequent falls, Denies weakness, Denies weight gain and Denies weight loss ENT Denies dizziness Card Denies chest pain, Denies leg edema, Denies lightheadedness, Denies palpitations, Denies dyspnea and Denies dyspnea on exertion Resp Denies cough, Denies dyspnea and Denies dyspnea on exertion GI Denies hematochezia Musc Denies abnormal gait, Denies muscle weakness, Denies numbness, Denies radiating pain into limb and Denies tingling Neuro Denies abnormal gait, Denies dizziness, Denies frequent falls, Denies numbness, Denies tingling and Denies weakness Endo Denies fatigue and Denies palpitations Physical Exam Vital Signs: Last Vital Signs Pulse 75 09/06/23 12:40 BP 110/62 09/06/23 12:40 BMI result Body Mass Index 24.1 GENERAL APPEARANCE: in no acute distress. NECK/THYROID: no carotid bruit, no jugular venous distention. SKIN: no suspicious lesions, warm and dry. HEART: no murmurs, regular rate and rhythm, S1, S2 normal. LUNGS: clear to auscultation bilaterally. ABDOMEN: normal, bowel sounds present, soft, nontender, nondistended. EXTREMITIES: no clubbing, cyanosis, or edema. PERIPHERAL PULSES: equal. NEUROLOGIC: nonfocal, alert and oriented. PSYCH: mood/affect full range. Assessment & Plan Assessment & Plan (1) Stable angina: Code(s): I20.8 - Other forms of angina pectoris (2) Palpitations: Code(s): R00.2 - Palpitations Plan Pleasant 77 year female with complex medical issues. She previously had PCI performed to LAD and RCA. She has been on Plavix monotherapy due to iron-deficiency anemia. No cause has been found for the anemia currently based on GI evaluation. She has been on iron supplementations with improvement in hemoglobin. Denying any bleeding. She has some chest pain episodes off and on which are happening at nighttime. She has not very active physically. So far symptoms are not consistent and I have advised her that we take a conservative approach currently and observe her closely. I have also explained to her that if she gets symptoms which are consistent with activity then she should reach out to us and she may need stress testing. We will see her earlier in 2-3 months anyway. Continue Plavix monotherapy. Blood pressure is optimal. Thank you for allowing me to participate in the care of your patient. Please feel free to contact me if you have any questions. Coding Level of Care Code Est Pt Level 4 (50244) Diagnoses Stable angina I20.8 Palpitations R00.2
== END 2023-09-06 13:07 | disposition home or self-care (01) ==
PROVIDERS: PCP Internal Medicine Geriatric Medicine; Visit Provider Internal Medicine Cardiovascular Disease
DX: I20.89 Other forms of angina pectoris (principal); R00.2 Palpitations
CPT/HCPCS: 99214

== ENCOUNTER → 2023-09-06 12:29 | Outpatient (BNVA) | payer MEDICARE, MEDICAID, SELFPAY | PROVIDERS: PCP Internal Medicine Geriatric Medicine; Visit Provider Internal Medicine Cardiovascular Disease | DX: I20.89 Other forms of angina pectoris (principal); R00.2 Palpitations | CPT/HCPCS: 99212 ==

== ENCOUNTER 2023-09-20 11:10 | Outpatient (REF) | payer MEDICARE, MEDICAID, SELFPAY ==
[2023-09-20 13:45] LABS: Hematocrit 43.2 % (37.0-47.0); Hemoglobin 13.4 g/dl (12.0-16.0); Mean Corpuscular Hemoglobin 26.3 pg (27.0-33.0); Mean Corpuscular Volume 84.9 fL (80.0-98.0); Mean Platelet Volume 10.6 fL (9.4-12.3); Platelet Count 259 X10*3/uL (160-400); Red Blood Count 5.09 X10*6/uL (4.20-5.50); Red Cell Distribution Width 21.2 % (11.0-16.0); White Blood Count 8.2 X10*3/uL (4.8-10.8)
[2023-09-20 14:29] LABS: Ferritin 36 ng/mL (10-250); Iron 84 mcg/dL (30-160); Percent Iron Saturation 26 % (15-50); Total Iron Binding Capacity 318 mcg/dL (228-428); Unsaturated Iron Binding 234 ug/dL
== END 2023-09-20 11:11 | disposition home or self-care (01) ==
LOC: HO.HHCL 11:10
PROVIDERS: Internal Medicine Geriatric Medicine; Visit Provider Internal Medicine
DX: D64.9 Anemia, unspecified (principal); E03.9 Hypothyroidism, unspecified
CPT/HCPCS: 36415; 82728; 83540; 84443; 85027

== ENCOUNTER 2023-11-22 11:14 | Outpatient (AMB) | payer MEDICARE, MEDICAID, SELFPAY ==
[2023-11-22 11:20] VITALS: BP 110/62; PULSE 79; BMI 24.0
--- NOTE | 2023-11-22 11:20 | MHC.OFFVIS ---
Vital Signs 11/22/23 11:20 Height 5 ft 4 in Weight 140 lb BMI 24.0 BP 110/62 Blood Pressure Location Lt brachial Position Sitting Pulse 79 Intake Visit Reasons: 2+ mth f/up [facility] Worker Required: No Accompanied by: Self / Same As Patient Allergies gluten Allergy (Verified 07/31/23 11:26) Unknown scallops Allergy (Verified 07/31/23 11:26) Unknown Medication List - Last Reconciled 11/22/23 by Shaquille Trivedi MD acetaminophen ER (Tylenol 8 Hour) 1,300 mg PO Q8H PRN albuterol sulfate 90 mcg/actuation 2 puffs inhalation Q4H PRN amlodipine 2.5 mg PO DAILY 90 days ascorbic acid (vitamin C) 500 mg PO DAILY atorvastatin 40 mg PO DAILY betamethasone valerate 0.1% 1 appl topical DAILY biotin 5 mg PO DAILY cholecalciferol (vitamin D3) 50 mcg PO DAILY clopidogrel 75 mg PO DAILY cyanocobalamin (vitamin B-12) 1,000 mcg PO DAILY famotidine 40 mg PO BID ferrous sulfate 325 mg PO QAM latanoprost 0.005% 1 drp ophthalmic (eye) BEDTIME levetiracetam (Keppra) 750 mg PO BID levothyroxine 112 mcg PO DAILY loperamide 2 mg PO QID PRN magnesium 500 mg PO DAILY melatonin 10 mg PO BEDTIME metformin 500 mg PO BID milk thistle 500 mg PO BID mirabegron ER (Myrbetriq) 50 mg PO DAILY oxycodone-acetaminophen 5-325 mg 1 tab PO BID PRN pantoprazole 40 mg PO DAILY peg 400-propylene glycol (PF) 0.4-0.3 % (Systane (PF)) 1 drp ophthalmic (eye) BID simethicone 125 mg PO TID PRN zinc 50 mg PO DAILY HPI Comments Details: Pleasant 78-year-old female who is here for follow-up. She has background history of coronary artery disease underwent primary PCI to left anterior descending artery in the past. She was complaining of chest discomfort. She is not very active and has been wheelchair bound. Given her pain at rest we decided to arrange stress test which was abnormal showing inferior and inferoseptal perfusion defect. She was taken for cardiac catheterization after discussion which showed severe right coronary artery as well as LAD stenosis. She underwent PCI to RCA and staged PCI to the LAD. She has no chest discomfort on follow up. She still has BRADLEY. She is very deconditioned and does not do much activities. I have discussed with her about cardiac rehab but she cannot come for frequent visits due to transport issues. She previously saw a plug shaper hand and will d/w PCP to be referred again. 01/09/2023: She returns for follow-up. In November 2022 she got admitted to [facility] with GI bleed. Her aspirin and ticagrelor were held and she underwent endoscopy and no obvious cause was found. She subsequently had C diff infection also. She is waiting to undergo capsule endoscopy. She is denying any bleeding at this point. She is taking aspirin ticagrelor. No chest discomfort or significant shortness of breath. Blood pressure control is good. 05/15/23: She returns for follow-up. She has been experiencing some palpitations. She had blood workup done recently which is showing iron deficiency. She was previously told to hold her iron supplements. I have advised to restart them. She also had 1 episode of indigestion like chest discomfort. 09/06/2023: She returns for follow-up. It appears her GI workup did not reveal any obvious bleeding source. She has been on iron supplementation since then. Her last hemoglobin in July was 11.3. % saturation of iron is 6% and iron level was 21. She still continues to be iron deficient but overall hemoglobin has improved. She is complaining of some chest discomfort which is a pressure-like feeling which has happened to her a few times at night along with palpitations. We tried to do a Holter monitor but she has a severe allergy to electrodes and tape and at times she had skin breakdown and bleeding. Due to this the monitor was not done. She comes in a wheelchair but walks between rooms. Very rarely she gets some discomfort walking around symptoms are mostly at night times infrequently. 11/22/23: She returns for follow-up. She is denying any chest discomfort. He has some fatigue and shortness of breath. She usually come in in electric wheelchair to inside the house she walks with cane for short distances. She does not do any other exercise. She has some orthopnea like episode but also snores at night and has daytime somnolence and headaches. She said she was diagnosed with sleep apnea at some stage but then she lost lot of weight. Recently she has not had any testing. [facility] Medical History Lower GI bleed Rectal bleed Anemia Stable angina Essential hypertension CVA (cerebral vascular accident) CAD (coronary artery disease) Surgical History Status post cardiac catheterization History of cardiac cath History of adenoidectomy Hx of tonsillectomy Hx of hernia repair History of section History of cholecystectomy History of appendectomy Family History Mother Cancer Father Heart attack Social History Household Members: Children Housing: House Do you presently have visiting nurse or other home services: Yes Alcohol intake: never Patient Tobacco Use Status: Former Tobacco user Years Smoked: 30 +/- e-Cigarette/Vaping Use: Never Used Second Hand Smoke Exposure: No Substance Use Type: IV Drugs service: No Current occupational status: retired Review of Systems Const Denies chills, Denies fatigue, Denies fever(s), Denies frequent falls, Denies weakness, Denies weight gain and Denies weight loss ENT Denies dizziness Card Denies chest pain, Denies leg edema, Denies lightheadedness, Denies palpitations, Denies dyspnea and Denies dyspnea on exertion Resp Denies cough, Denies dyspnea and Denies dyspnea on exertion GI Denies hematochezia Musc Denies abnormal gait, Denies muscle weakness, Denies numbness, Denies radiating pain into limb and Denies tingling Neuro Denies abnormal gait, Denies dizziness, Denies frequent falls, Denies numbness, Denies tingling and Denies weakness Endo Denies fatigue and Denies palpitations Physical Exam Vital Signs: Last Vital Signs Pulse 79 11/22/23 11:20 BP 110/62 11/22/23 11:20 BMI result Body Mass Index 24.0 GENERAL APPEARANCE: in no acute distress. NECK/THYROID: no carotid bruit, no jugular venous distention. SKIN: no suspicious lesions, warm and dry. HEART: no murmurs, regular rate and rhythm, S1, S2 normal. LUNGS: clear to auscultation bilaterally. ABDOMEN: normal, bowel sounds present, soft, nontender, nondistended. EXTREMITIES: no clubbing, cyanosis, or edema. PERIPHERAL PULSES: equal. NEUROLOGIC: nonfocal, alert and oriented. PSYCH: mood/affect full range. Office Procedures EKG Details: NSR 79/min, low voltage, QTc 451 msec. [id number], Complete Assessment & Plan Assessment & Plan (1) Stable angina: Code(s): I20.8 - Other forms of angina pectoris Category: Medical Plan 78-year-old female who is here for follow-up. She has known history of coronary artery disease with previous PCI to LAD as well as RCA. She is on single antiplatelet therapy with Plavix due to bleeding previously. Clinically not in heart failure but has some fatigue and dyspnea. I think this is due deconditioning. I have offered her that because of stable angina and diagnosis she will qualify for cardiac rehabilitation if she is interested in that. That will require her to come to hospital up to 2 times a week which is a challenge for her. Inside the house she has a treadmill but the son was quite concerned that she cannot operated appropriately and is concerned that she may fall. She also has been forgetful and have left stove on while boiling water on many occasions. I have explained to the patient and the son that she is quite frail and deconditioned and her symptoms will improve with some sort of exercise program. She also has some feature of sleep apnea but clinically does not seem too interested in doing sleep study. Follow-up in few months. Thank you for allowing me to participate in the care of your patient. Please feel free to contact me if you have any questions. Coding Level of Care Code Est Pt Level 4 (66582) Diagnoses Stable angina I20.8 CPT Codes EKG - CPT: 68107-[id number], Complete ([id number])
== END 2023-11-22 12:04 | disposition home or self-care (01) ==
PROVIDERS: PCP Internal Medicine Geriatric Medicine; Visit Provider Internal Medicine Cardiovascular Disease
DX: I20.89 Other forms of angina pectoris (principal)
CPT/HCPCS: 93010; 99214

== ENCOUNTER → 2023-11-22 11:14 | Outpatient (BNVA) | payer MEDICARE, MEDICAID, SELFPAY | PROVIDERS: PCP Internal Medicine Geriatric Medicine; Visit Provider Internal Medicine Cardiovascular Disease | DX: I20.89 Other forms of angina pectoris (principal); Z95.5 Presence of coronary angioplasty implant and graft | CPT/HCPCS: 93005; 99212 ==

== ENCOUNTER 2024-01-16 09:29 | Outpatient (REF) | payer MEDICARE, MEDICAID, SELFPAY ==
[2024-01-16 11:43] LABS: Hematocrit 43.6 % (37.0-47.0); Hemoglobin 14.4 g/dl (12.0-16.0); Mean Corpuscular Hemoglobin 29.9 pg (27.0-33.0); Mean Corpuscular Volume 90.6 fL (80.0-98.0); Mean Platelet Volume 10.1 fL (9.4-12.3); Platelet Count 265 X10*3/uL (160-400); Red Blood Count 4.81 X10*6/uL (4.20-5.50); Red Cell Distribution Width 15.4 % (11.0-16.0); White Blood Count 8.2 X10*3/uL (4.8-10.8)
[2024-01-16 12:04] LABS: Cholesterol 150 mg/dL (<200); HDL Cholesterol 48 mg/dL (>40); Iron 114 mcg/dL (30-160); LDL Cholesterol Calculated 63 mg/dL (<100); Percent Iron Saturation 35 % (15-50); Total Iron Binding Capacity 327 mcg/dL (228-428); Triglycerides 199 mg/dL (<150); Unsaturated Iron Binding 213 ug/dL
[2024-01-16 12:16] LABS: Creatinine Urine 27.62 mg/dL; Microalbumin Urine < 5.0 mg/L
[2024-01-16 12:21] LABS: Ferritin 58 ng/mL (10-250)
== END 2024-01-16 09:30 | disposition home or self-care (01) ==
LOC: HO.HHCL 09:29
PROVIDERS: Internal Medicine; Visit Provider Internal Medicine Geriatric Medicine
DX: D64.9 Anemia, unspecified (principal); I10 Essential (primary) hypertension; E11.8 Type 2 diabetes mellitus with unspecified complications
CPT/HCPCS: 36415; 80061; 82043; 82570; 82728; 83540; 85027

== ENCOUNTER 2024-01-29 11:15 | Outpatient (AMB) | payer MEDICARE, SELFPAY ==
--- NOTE | 2024-01-29 11:17 | MHC.OFFVIS ---
Vital Signs 01/29/24 11:19 Height 5 ft 2 in Weight 150 lb BMI 27.4 BP 118/55 L Blood Pressure Location Lt brachial Position Sitting Pulse 88 Intake Visit Reasons: 6 month follow up HARJIT Intake Note: Celeste presents in the office as a follow up 6 month follow up. CC: She states that she feels like someone is sticking a knife up her butt . She started taking Christine which helps with her gut health. She also states that she has been having issues with her esophagus. Monomer Recovery Operator Required: No Allergies gluten Allergy (Verified 01/29/24 11:18) Unknown scallops Allergy (Verified 01/29/24 11:18) Unknown HPI Comments Details: This is a 77-year-old female with extensive coronary artery disease status post PCI May 2022, on dual anti-platelet therapy, hypertension, hyperlipidemia, who was recently admitted for severe anemia with GI consultation for GI bleed. Inpt consultation 11/20/22: History was obtained the patient, who states that she has been having intermittent abdominal pain with weakness, shortness of breath and lightheadedness for a few months now. Also reports an unintentional weight loss of > 10lbs in the last few months which she charts to diarrhea. In terms of the diarrhea, describes it as loose, watery occuring up to 5-6 times a day. Most recently has progressed in the last 2 weeks to the point that she is unable to step out of the home for more than a few minutes. Night time sx +. No blood in stool or melena. Specifically describes stool as yellow to brown. She was seen by her PCP for these sx on Monday who ordered blood work and she received a call Monday morning to go to the ER due to drop in H/H requiring blood transfusion. Last colo per her report was more than 5 years ago and was incomplete due to difficult sigmoid colon . She does not recall if she had a follow up barium enema or colonography. Son (Raymundo) at bedside also gives a hx of anemia a few years ago for which she was seen at [facility] but states that pt was told she had internal bleeding and was discharged from the ER, does not recall if a GI work up was recommended at that time. On arrival to the emergency room, she was noted to be hemodynamically stable.? Labs were significant for acute drop in hemoglobin to 7.2, with mildly elevated leukocytosis and a narrow MCV of 72.6.? s/p 2U PRBC transfusion. She also underwent CT abdomen pelvis with IV contrast that does not show any acute findings to explain the weight loss. 11/24/22 - EGD/colo: Impression: 1. Normal esophagus 2. Large Hill grade IV hiatal hernia 3. Normal stomach (biopsy) 4. Normal duodenum (biopsy) 5. Normal colon and terminal ileum mucosa 6. Diverticulosis 7. Internal hemorrhoids Path: A.? Duodenum, biopsy:? Duodenal mucosa within normal limits. B.? Stomach, random, biopsy:? Antral-type and oxyntic mucosa with mild chronic inactive inflammation; no Helicobacter organisms seen. 12/12/22: Pt comes in accompanied by her son for follow up post procedure. Of note, was recently informed by urgent care that stool study was positive for C Diff. On Vanc PO, has completed 5 days already. Otherwise, sx are unchanged: abd pain, bloating, diarrhea. Fatigue and shortness of breath better since improvement in anemia. Labs reviewed. CTE 01/16/23: Severe diverticulosis of the colon. Moderate size hiatal hernia. Small left renal stone. Areas of renal cortical thinning or scarring, left greater than right. 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 02/13/23: Currently no abd pain, N,V. Diarrhea resolved but comes and goes. Reports issues with fecal incontinence. Also sees UroGYN for urinary incontinence. Has been taking iron supplements daily. Pt also has been transitioned to plavix monotherapy from ASA+ brillinta. 07/31/23: Was seen by Carlotta Amador in the interim for question recurrent iron-deficiency anemia. Was advised to resume oral iron. However, patient reports that she has still not resumed the iron supplementation. She last to cut back in January. Labs reviewed, hemoglobin trending up, but ferritin is low at 18. 01/29/24: Seen in follow up. Reports improvement in abd cramping and frequent BMs by taking a gut supplement Christine. Has not had any incontinence either now. Main c/o is burning stinging pain on passing BMs and sometimes even when shes resting. No blood noted. DOes not strain or pass hard stools. [place] 2022 with int hemorrhoids otherwise normal appearing anorectum. Pt also has nightly heartburn despite taking pantoprazole. Has also been raising the head of her bed at night without much improvement. [facility] Medical History Lower GI bleed Rectal bleed Anemia Stable angina Essential hypertension CVA (cerebral vascular accident) CAD (coronary artery disease) Surgical History Status post cardiac catheterization History of cardiac cath History of adenoidectomy Hx of tonsillectomy Hx of hernia repair History of section History of cholecystectomy History of appendectomy Family History Mother Cancer Father Heart attack Social History Household Members: Children Housing: House Do you presently have visiting nurse or other home services: Yes Alcohol intake: never Patient Tobacco Use Status: Former Tobacco user Years Smoked: 30 +/- e-Cigarette/Vaping Use: Never Used Second Hand Smoke Exposure: No Substance Use Type: IV Drugs service: No Current occupational status: retired Review of Systems Const All systems reviewed & are unremarkable except as noted in HPI and below Physical Exam Vital Signs: Last Vital Signs Pulse 88 01/29/24 11:19 BP 118/55 L 01/29/24 11:19 BMI result Body Mass Index 27.4 elderly female appears well NAD seated in wheelchair Assessment & Plan Assessment & Plan (1) Anemia: Code(s): D64.9 - Anemia, unspecified Category: Medical (2) Anal fissure: Code(s): K60.2 - Anal fissure, unspecified Category: Medical (3) GERD (gastroesophageal reflux disease): Code(s): K21.9 - Gastro-esophageal reflux disease without esophagitis Category: Medical Plan #Anemia - resolved. - Can DC po iron supplements. - Repeat labs in 3 months - reminder set #GERD minimal response to pantoprazole. Pt unsure if taking pepcid as gets her meds in blister pack. - DC protonix, switch to nexium to be taken in evening - cont to elevate HOB at least 30 deg - Avoid trigger foods # Rectal pain Appears consistent with anal fissure. Exam could not be completed today as pt's ride had arrived. - avoid strainign and constipation - topical lidocaine x 4 weeks - sitz baths Follow up 3 months Orders: Orders Ferritin 04/22/24 D64.9 - Anemia, unspecified Complete Blood Count no Diff 04/22/24 D64.9 - Anemia, unspecified IRON PROFILE 04/22/24 D64.9 - Anemia, unspecified Vitamin B12 and Folate 04/22/24 D64.9 - Anemia, unspecified Medications: New lidocaine HCl 2% 1 appl topical .at bedtime 118 mL 0RF 4 weeks K60.2 - Anal fissure, unspecified esomeprazole magnesium (Nexium) 20 mg PO .at night 30 caps 2RF 30 days K21.9 - Gastro-esophageal reflux disease without esophagitis Coding Level of Care Code Est Pt Level 4 (32234) Diagnoses Anemia D64.9 Anal fissure K60.2 GERD (gastroesophageal reflux disease) K21.9
[2024-01-29 11:19] VITALS: BP 118/55; PULSE 88; BMI 27.4
== END 2024-01-29 12:41 | disposition home or self-care (01) ==
PROVIDERS: PCP Internal Medicine Geriatric Medicine; Visit Provider Internal Medicine
DX: D64.9 Anemia, unspecified (principal); K60.2 Anal fissure, unspecified; K21.9 Gastro-esophageal reflux disease without esophagitis
CPT/HCPCS: 99214

== ENCOUNTER → 2024-01-29 11:15 | Outpatient (BNVA) | payer MEDICARE, SELFPAY | PROVIDERS: PCP Internal Medicine Geriatric Medicine; Visit Provider Internal Medicine | DX: D64.9 Anemia, unspecified (principal); K60.2 Anal fissure, unspecified; K21.9 Gastro-esophageal reflux disease without esophagitis | CPT/HCPCS: 99212 ==

== ENCOUNTER 2024-02-06 10:25 | Outpatient (REF) | payer MEDICARE, SELFPAY ==
[2024-02-06 12:00] LABS: Alanine Aminotransferase 25 U/L (0-31); Albumin Level 3.9 g/dL (3.5-5.0); Alkaline Phosphatase 112 U/L (39-117); Anion Gap 12 (12-20); Aspartate Amino Transferase 21 U/L (5-31); Bilirubin Total 0.4 mg/dL (0.0-1.0); Blood Urea Nitrogen 18 mg/dL (9-16); Calcium 9.4 mg/dL (8.4-10.2); Carbon Dioxide 27 mmol/L (22-29); Chloride 107 mmol/L (96-108); Estimated Glomerular Filt Rate > 60; Glucose Random 126 mg/dL (60-115); Potassium 4.1 mmol/L (3.3-5.1); Sodium 142 mmol/L (135-145); Total Protein 7.2 g/dL (6.5-8.0)
== END 2024-02-06 10:26 | disposition home or self-care (01) ==
LOC: HO.HHCL 10:25
PROVIDERS: Visit Provider Internal Medicine Geriatric Medicine
DX: E11.8 Type 2 diabetes mellitus with unspecified complications (principal)
CPT/HCPCS: 36415; 80053

== ENCOUNTER → 2024-03-27 12:00 | Outpatient (BNVA) | payer MEDICARE, MEDICAID, SELFPAY | PROVIDERS: PCP Internal Medicine Geriatric Medicine; Visit Provider Internal Medicine Cardiovascular Disease ==

== ENCOUNTER 2024-04-25 10:23 | Outpatient (REF) | payer OTHER, SELFPAY ==
[2024-04-25 11:56] LABS: Hematocrit 41.6 % (37.0-47.0); Hemoglobin 13.6 g/dl (12.0-16.0); Mean Corpuscular HGB Conc 32.7 g/dl (31.0-35.0); Mean Corpuscular Hemoglobin 29.1 pg (27.0-33.0); Mean Corpuscular Volume 88.9 fL (80.0-98.0); Mean Platelet Volume 10.4 fL (9.4-12.3); Platelet Count 268 X10*3/uL (160-400); Red Blood Count 4.68 X10*6/uL (4.20-5.50); Red Cell Distribution Width 14.7 % (11.0-16.0); White Blood Count 8.1 X10*3/uL (4.8-10.8)
[2024-04-25 12:40] LABS: Iron 52 mcg/dL (30-160); Percent Iron Saturation 17 % (15-50); Total Iron Binding Capacity 306 mcg/dL (228-428); Unsaturated Iron Binding 254 ug/dL
[2024-04-25 12:44] LABS: Ferritin 85 ng/mL (10-250)
[2024-04-25 13:02] LABS: Folate 13.6 ng/mL (> or = 4.0); Vitamin B12 > 2000 pg/mL (200-900)
== END 2024-04-25 10:24 | disposition home or self-care (01) ==
LOC: HO.LAB 10:23
PROVIDERS: PCP Internal Medicine Geriatric Medicine; Visit Provider Internal Medicine
DX: D64.9 Anemia, unspecified (principal)
CPT/HCPCS: 36415; 82607; 82728; 82746; 83540; 85027

== ENCOUNTER 2024-05-15 12:33 | Outpatient (REF) | payer MEDICARE, SELFPAY ==
--- NOTE | ~2024-05-15 | XR_ITS ---
EXAMINATION: XR THORACIC SPINE CLINICAL INFORMATION: Pain. COMPARISON: None available. TECHNIQUE: AP and lateral views of the thoracic spine. FINDINGS: Normal vertebral body alignment. The thoracic kyphosis is maintained. No acute fracture or subluxation. No loss of vertebral body height. Minimal multilevel loss of intervertebral disc height with tiny endplate osteophytes. No concerning lytic or blastic osseous lesion. The visualized lungs are clear. Right upper quadrant surgical clips. XR/XR thoracic spine 2V IMPRESSION: Minimal multilevel degenerative disc disease. Electronically signed by: Kashif Stinson MD 05/16/2024 10:21 AM MENA STOVER
--- NOTE | ~2024-05-15 | XR_ITS ---
EXAMINATION: XR SHOULDER, RIGHT CLINICAL INFORMATION: Chronic right shoulder pain, decreased range of motion COMPARISON: None available. TECHNIQUE: AP external rotation, Grashey, scapular Y, and axillary views of the right shoulder. FINDINGS: No acute fracture or dislocation. No joint space narrowing and marginal osteophytes. Small lateral subchondral spurs. No concerning lytic or blastic osseous lesion. XR/XR shoulder RT min 2V IMPRESSION: Small lateral subacromial spurs. No acute osseous abnormality. Electronically signed by: Kashif Stinson MD 05/16/2024 10:03 AM MENA
[2024-05-15 13:59] LABS: Vitamin D 25-OH Total 72.9 ng/mL (>30)
[2024-05-15 14:04] LABS: Vitamin B12 > 2000 pg/mL (200-900)
== END 2024-05-15 12:34 | disposition home or self-care (01) ==
LOC: HO.HHCL 12:33
PROVIDERS: Visit Provider Internal Medicine Geriatric Medicine
DX: M81.0 Age-related osteoporosis without current pathological fracture (principal); E11.8 Type 2 diabetes mellitus with unspecified complications; M54.6 Pain in thoracic spine; M25.511 Pain in right shoulder; G89.29 Other chronic pain
CPT/HCPCS: 36415; 72070; 73030; 82306; 82607

== ENCOUNTER 2024-05-22 14:26 | Outpatient (AMB) | payer MEDICARE, SELFPAY ==
--- NOTE | 2024-05-22 14:41 | MHC.OFFVIS ---
Vital Signs 05/22/24 14:53 Height 5 ft 2 in Blood Pressure Location Lt brachial Position Sitting Intake Visit Reasons: 3 mo f/u, r/s from 04/29/24 Intake Note: Celeste presents in the office as a 3 month follow up. CC: Drug And Alcohol Counselor Required: No Allergies gluten Allergy (Verified 05/22/24 14:41) Unknown scallops Allergy (Verified 05/22/24 14:41) Unknown HPI Comments Details: This is a 77-year-old female with extensive coronary artery disease status post PCI May 2022, on dual anti-platelet therapy, hypertension, hyperlipidemia, who was recently admitted for severe anemia with GI consultation for GI bleed. Inpt consultation 11/20/22: History was obtained the patient, who states that she has been having intermittent abdominal pain with weakness, shortness of breath and lightheadedness for a few months now. Also reports an unintentional weight loss of > 10lbs in the last few months which she charts to diarrhea. In terms of the diarrhea, describes it as loose, watery occuring up to 5-6 times a day. Most recently has progressed in the last 2 weeks to the point that she is unable to step out of the home for more than a few minutes. Night time sx +. No blood in stool or melena. Specifically describes stool as yellow to brown. She was seen by her PCP for these sx on Monday who ordered blood work and she received a call Monday morning to go to the ER due to drop in H/H requiring blood transfusion. Last colo per her report was more than 5 years ago and was incomplete due to difficult sigmoid colon . She does not recall if she had a follow up barium enema or colonography. Son (Raymundo) at bedside also gives a hx of anemia a few years ago for which she was seen at [place] but states that pt was told she had internal bleeding and was discharged from the ER, does not recall if a GI work up was recommended at that time. On arrival to the emergency room, she was noted to be hemodynamically stable.? Labs were significant for acute drop in hemoglobin to 7.2, with mildly elevated leukocytosis and a narrow MCV of 72.6.? s/p 2U PRBC transfusion. She also underwent CT abdomen pelvis with IV contrast that does not show any acute findings to explain the weight loss. 11/24/22 - EGD/colo: Impression: 1. Normal esophagus 2. Large Hill grade IV hiatal hernia 3. Normal stomach (biopsy) 4. Normal duodenum (biopsy) 5. Normal colon and terminal ileum mucosa 6. Diverticulosis 7. Internal hemorrhoids Path: A.? Duodenum, biopsy:? Duodenal mucosa within normal limits. B.? Stomach, random, biopsy:? Antral-type and oxyntic mucosa with mild chronic inactive inflammation; no Helicobacter organisms seen. 12/12/22: Pt comes in accompanied by her son for follow up post procedure. Of note, was recently informed by urgent care that stool study was positive for C Diff. On Vanc PO, has completed 5 days already. Otherwise, sx are unchanged: abd pain, bloating, diarrhea. Fatigue and shortness of breath better since improvement in anemia. Labs reviewed. CTE 01/16/23: Severe diverticulosis of the colon. Moderate size hiatal hernia. Small left renal stone. Areas of renal cortical thinning or scarring, left greater than right. 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 02/13/23: Currently no abd pain, N,V. Diarrhea resolved but comes and goes. Reports issues with fecal incontinence. Also sees UroGYN for urinary incontinence. Has been taking iron supplements daily. Pt also has been transitioned to plavix monotherapy from ASA+ brillinta. 07/31/23: Was seen by Carlotta Amador in the interim for question recurrent iron-deficiency anemia. Was advised to resume oral iron. However, patient reports that she has still not resumed the iron supplementation. She last to cut back in January. Labs reviewed, hemoglobin trending up, but ferritin is low at 18. 01/29/24: Seen in follow up. Reports improvement in abd cramping and frequent BMs by taking a gut supplement Christine. Has not had any incontinence either now. Main c/o is burning stinging pain on passing BMs and sometimes even when shes resting. No blood noted. DOes not strain or pass hard stools. [place] 2022 with int hemorrhoids otherwise normal appearing anorectum. Pt also has nightly heartburn despite taking pantoprazole. Has also been raising the head of her bed at night without much improvement. 05/22/24: Here for follow up. Pt again in a time crunch due to how she scheduled her transport back. Was never able to get her med for anal fissure. Reports persistent constipation but when administered enema had burning and noticed a streak of blood. In addition, also has heartburn rosanna at night, with nausea and regurgitation. Goes to sleep within an hour of taking her last meal of the day. Has known large hiatal hernia. On protonix (nexium prescribed but developed diarrhea and hives). Taking this alongside pepcid. NO change in appetite, no unintentional weight loss. [facility] Medical History Lower GI bleed Rectal bleed Anemia Stable angina Essential hypertension CVA (cerebral vascular accident) CAD (coronary artery disease) Surgical History Status post cardiac catheterization History of cardiac cath History of adenoidectomy Hx of tonsillectomy Hx of hernia repair History of section History of cholecystectomy History of appendectomy Family History Mother Cancer Father Heart attack Social History Household Members: Children Housing: House Do you presently have visiting nurse or other home services: Yes Alcohol intake: never Patient Tobacco Use Status: Former Tobacco user Years Smoked: 30 +/- e-Cigarette/Vaping Use: Never Used Second Hand Smoke Exposure: No Substance Use Type: IV Drugs service: No Current occupational status: retired Review of Systems Const All systems reviewed & are unremarkable except as noted in HPI and below Physical Exam Vital Signs: No apparent distress Nonicteric Abdomen soft, nondistended Alert and oriented x3, seated in wheelchair Assessment & Plan Assessment & Plan (1) GERD (gastroesophageal reflux disease): Code(s): K21.9 - Gastro-esophageal reflux disease without esophagitis Category: Medical (2) Hemorrhoids: Code(s): K64.9 - Unspecified hemorrhoids Category: Medical Plan #GERD minimal response to pantoprazole once daily. Has known large hiatal hernia. - Increase protonix 40 BID - Pt to take this on empty stomach - Can DC pepcid with this - Barium swallow ordered for eval of hiatal hernia - cont to elevate HOB at least 30 deg - Avoid trigger foods #Intermittent rectal bleeding rosanna on digitalisation likely due to hemorrhoids vs anal fissure. PLan: - Avoid constipation and straining. - Was unable to get topical lidocaine for possible anal fissure due to OOP. Good Rx coupon given. - Cont sitz baths - If anal fissure persistent at next visit, can consider surgical referral Follow up 3 months. Orders: Orders [place] barium swallow 05/22/24 K21.9 - Gastro-esophageal reflux disease without esophagitis Medications: Changed From pantoprazole 40 mg PO DAILY 30 tabs 2RF To pantoprazole 40 mg PO BID 180 tabs 2RF 90 days Coding Level of Care Code Est Pt Level 4 (11319) Diagnoses GERD (gastroesophageal reflux disease) K21.9 Hemorrhoids K64.9
== END 2024-05-22 15:16 | disposition home or self-care (01) ==
PROVIDERS: PCP Internal Medicine Geriatric Medicine; Visit Provider Internal Medicine
DX: K21.9 Gastro-esophageal reflux disease without esophagitis (principal); K64.9 Unspecified hemorrhoids
CPT/HCPCS: 99214

== ENCOUNTER → 2024-05-22 14:26 | Outpatient (BNVA) | payer MEDICARE, SELFPAY | PROVIDERS: PCP Internal Medicine Geriatric Medicine; Visit Provider Internal Medicine | DX: D64.9 Anemia, unspecified (principal); K21.9 Gastro-esophageal reflux disease without esophagitis | CPT/HCPCS: 99212 ==

== ENCOUNTER 2024-05-27 10:50 | Outpatient (AMB) | payer MEDICARE, SELFPAY ==
--- NOTE | 2024-05-27 10:53 | MHC.OFFVIS ---
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 Accompanied by: Self / Same As Patient Allergies gluten Allergy (Verified 05/22/24 14:41) Unknown scallops Allergy (Verified 05/22/24 14:41) Unknown Medication List - Last Reconciled 05/27/24 by Shaquille Trivedi MD acetaminophen ER (Tylenol 8 Hour) 1,300 mg PO Q8H PRN albuterol sulfate 90 mcg/actuation 2 puffs inhalation Q4H PRN amlodipine 2.5 mg PO DAILY 90 days ascorbic acid (vitamin C) 500 mg PO DAILY atorvastatin 40 mg PO DAILY betamethasone valerate 0.1% 1 appl topical DAILY biotin 5 mg PO DAILY cholecalciferol (vitamin D3) 50 mcg PO DAILY clopidogrel 75 mg PO DAILY cyanocobalamin (vitamin B-12) 1,000 mcg PO DAILY latanoprost 0.005% 1 drp ophthalmic (eye) BEDTIME levetiracetam (Keppra) 750 mg PO BID levothyroxine 112 mcg PO DAILY lidocaine HCl 2% 1 appl topical .at bedtime 4 weeks loperamide 2 mg PO QID PRN magnesium 500 mg PO DAILY melatonin mg PO metformin 500 mg PO BID milk thistle 500 mg PO BID mirabegron ER (Myrbetriq) 50 mg PO DAILY oxycodone-acetaminophen 5-325 mg 1 tab PO BID PRN pantoprazole 40 mg PO BID 90 days peg 400-propylene glycol (PF) 0.4-0.3 % (Systane (PF)) 1 drp ophthalmic (eye) BID simethicone 125 mg PO TID PRN trospium ER 60 mg PO DAILY zinc 50 mg PO DAILY HPI Comments Details: Pleasant 78-year-old female who is here for follow-up. She has background history of coronary artery disease underwent primary PCI to left anterior descending artery in the past. She was complaining of chest discomfort. She is not very active and has been wheelchair bound. Given her pain at rest we decided to arrange stress test which was abnormal showing inferior and inferoseptal perfusion defect. She was taken for cardiac catheterization after discussion which showed severe right coronary artery as well as LAD stenosis. She underwent PCI to RCA and staged PCI to the LAD. She has no chest discomfort on follow up. She still has BRADLEY. She is very deconditioned and does not do much activities. I have discussed with her about cardiac rehab but she cannot come for frequent visits due to transport issues. She previously saw a extra hand and will d/w PCP to be referred again. 01/09/2023: She returns for follow-up. In November 2022 she got admitted to [facility] with GI bleed. Her aspirin and ticagrelor were held and she underwent endoscopy and no obvious cause was found. She subsequently had C diff infection also. She is waiting to undergo capsule endoscopy. She is denying any bleeding at this point. She is taking aspirin ticagrelor. No chest discomfort or significant shortness of breath. Blood pressure control is good. 05/15/23: She returns for follow-up. She has been experiencing some palpitations. She had blood workup done recently which is showing iron deficiency. She was previously told to hold her iron supplements. I have advised to restart them. She also had 1 episode of indigestion like chest discomfort. 09/06/2023: She returns for follow-up. It appears her GI workup did not reveal any obvious bleeding source. She has been on iron supplementation since then. Her last hemoglobin in July was 11.3. % saturation of iron is 6% and iron level was 21. She still continues to be iron deficient but overall hemoglobin has improved. She is complaining of some chest discomfort which is a pressure-like feeling which has happened to her a few times at night along with palpitations. We tried to do a Holter monitor but she has a severe allergy to electrodes and tape and at times she had skin breakdown and bleeding. Due to this the monitor was not done. She comes in a wheelchair but walks between rooms. Very rarely she gets some discomfort walking around symptoms are mostly at night times infrequently. 11/22/23: She returns for follow-up. She is denying any chest discomfort. He has some fatigue and shortness of breath. She usually come in in electric wheelchair to inside the house she walks with cane for short distances. She does not do any other exercise. She has some orthopnea like episode but also snores at night and has daytime somnolence and headaches. She said she was diagnosed with sleep apnea at some stage but then she lost lot of weight. Recently she has not had any testing. 05/27/2024: She returns for follow-up. She is been experiencing chest discomfort which is a burning sensation when she bends forward or laid down. She has a large hiatal hernia discovered on endoscopy and has been referred to surgery for further assessment. She also has been experiencing some shortness of breath with activities. She is a former smoker. [facility] Medical History Lower GI bleed Rectal bleed Anemia Stable angina Essential hypertension CVA (cerebral vascular accident) CAD (coronary artery disease) Surgical History (Reviewed 05/27/24 @ 10:59 by Deepika Holliday [facility]) Status post cardiac catheterization History of cardiac cath History of adenoidectomy Hx of tonsillectomy Hx of hernia repair History of section History of cholecystectomy History of appendectomy Family History Mother Cancer Father Heart attack Social History Household Members: Children Housing: House Do you presently have visiting nurse or other home services: Yes Alcohol intake: never Patient Tobacco Use Status: Former Tobacco user Years Smoked: 30 +/- e-Cigarette/Vaping Use: Never Used Second Hand Smoke Exposure: No Substance Use Type: IV Drugs service: No Current occupational status: retired Review of Systems Const Denies chills, Denies fatigue, Denies fever(s), Denies frequent falls, Denies weakness, Denies weight gain and Denies weight loss ENT Denies dizziness Card Denies chest pain, Denies leg edema, Denies lightheadedness, Denies palpitations, Denies dyspnea and Denies dyspnea on exertion Resp Denies cough, Denies dyspnea and Denies dyspnea on exertion GI Denies hematochezia Musc Denies abnormal gait, Denies muscle weakness, Denies numbness, Denies radiating pain into limb and Denies tingling Neuro Denies abnormal gait, Denies dizziness, Denies frequent falls, Denies numbness, Denies tingling and Denies weakness Endo Denies fatigue and Denies palpitations Physical Exam Vital Signs: Last Vital Signs Pulse 61 05/27/24 10:54 BP 120/62 05/27/24 10:54 BMI result Body Mass Index 25.9 GENERAL APPEARANCE: in no acute distress. NECK/THYROID: no carotid bruit, no jugular venous distention. SKIN: no suspicious lesions, warm and dry. HEART: no murmurs, regular rate and rhythm, S1, S2 normal. LUNGS: clear to auscultation bilaterally. ABDOMEN: normal, bowel sounds present, soft, nontender, nondistended. EXTREMITIES: no clubbing, cyanosis, or edema. PERIPHERAL PULSES: equal. NEUROLOGIC: nonfocal, alert and oriented. PSYCH: mood/affect full range. Assessment & Plan Assessment & Plan (1) Chest pain: Code(s): R07.9 - Chest pain, unspecified Category: Medical (2) Dyspnea: Code(s): R06.00 - Dyspnea, unspecified Category: Medical Plan [age] female who is here for follow-up. She is known history of coronary artery disease with multiple PCIs in the past. She is currently on Plavix monotherapy. She has been experiencing significant chest burning which is due to hiatal hernia. She is seeing Gastroenterology and will be seeing surgery. I do not think she needs stress testing currently. Shortness of breath can be due to deconditioning but she also has background of tobacco abuse. We will arrange PFTs for her. Clinically not in heart failure. Blood pressure is well controlled. Follow-up in few months. Thank you for allowing me to participate in the care of your patient. Please feel free to contact me if you have any questions. Orders: Orders PFT pulmonary function test Today R06.00 - Dyspnea, unspecified Coding Level of Care Code Est Pt Level 4 (94342) Diagnoses Chest pain R07.9 Dyspnea R06.00
[2024-05-27 10:54] VITALS: BP 120/62; PULSE 61; BMI 25.9
== END 2024-05-27 11:21 | disposition home or self-care (01) ==
LOC: HO.HCS 10:50
PROVIDERS: PCP Internal Medicine Geriatric Medicine; Visit Provider Internal Medicine Cardiovascular Disease
DX: R07.9 Chest pain, unspecified (principal); R06.00 Dyspnea, unspecified
CPT/HCPCS: 99214

== ENCOUNTER → 2024-05-27 10:50 | Outpatient (BNVA) | payer MEDICARE, SELFPAY | PROVIDERS: PCP Internal Medicine Geriatric Medicine; Visit Provider Internal Medicine Cardiovascular Disease | DX: R07.9 Chest pain, unspecified (principal); R06.00 Dyspnea, unspecified | CPT/HCPCS: 99212 ==

== ENCOUNTER 2024-06-18 10:07 | Outpatient (AMB) | payer MEDICARE, SELFPAY ==
--- NOTE | 2024-06-18 10:42 | A.OFFVIS_ITS ---
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 Patient reports for the past month she had achy pain that travels from her spine to her right shoulder. States her pain shoots down her arm to her hand. Her pain wakes her up at night and is unable to sleep on her back. for months. Hx of left shoulder fracture a couple of years ago which has caused limited ROM in that arm. Hx of fibromyalgia. Finds relief with prescribed oxycodone 3 times a day. Allergies gluten Allergy (Verified 06/18/24 10:52) Unknown scallops Allergy (Verified 06/18/24 10:52) Unknown Medication List - Last Reviewed 06/18/24 by KEL Muller acetaminophen ER (Tylenol 8 Hour) 1,300 mg PO Q8H PRN albuterol sulfate 90 mcg/actuation 2 puffs inhalation Q4H PRN alendronate 70 mg PO QWEEK amlodipine 2.5 mg PO DAILY 90 days ascorbic acid (vitamin C) 500 mg PO DAILY atorvastatin 40 mg PO DAILY betamethasone valerate 0.1% 1 appl topical DAILY biotin 5 mg PO DAILY cholecalciferol (vitamin D3) 50 mcg PO DAILY clopidogrel 75 mg PO DAILY cyanocobalamin (vitamin B-12) 1,000 mcg PO DAILY latanoprost 0.005% 1 drp ophthalmic (eye) BEDTIME levetiracetam (Keppra) 750 mg PO BID levothyroxine 112 mcg PO DAILY lidocaine HCl 2% 1 appl topical .at bedtime 4 weeks loperamide 2 mg PO QID PRN magnesium 500 mg PO DAILY melatonin mg PO metformin 500 mg PO BID milk thistle 500 mg PO BID mirabegron ER (Myrbetriq) 50 mg PO DAILY oxycodone-acetaminophen 5-325 mg 1 tab PO BID PRN pantoprazole 40 mg PO BID peg 400-propylene glycol (PF) 0.4-0.3 % (Systane (PF)) 1 drp ophthalmic (eye) BID simethicone 125 mg PO TID PRN trospium ER 60 mg PO DAILY zinc 50 mg PO DAILY HPI HPI 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 She denies injury. She does have pain that has been worsened over the last several weeks which does radiate to her back. She has difficulty with reaching overhead and repetitive motions. She does have difficulty with lifting objects such as a 0.5 gal of milk or her coffee cup. She presents today in a motorized wheelchair however she states when she is in the house she ambulates with and without assistive devices. She is on chronic oxycodone which she takes 3 times a day. [facility] Medical History Lower GI bleed Rectal bleed Anemia Stable angina Essential hypertension CVA (cerebral vascular accident) CAD (coronary artery disease) Surgical History (Reviewed 05/27/24 @ 10:59 by Deepika Holliday [facility]) Status post cardiac catheterization History of cardiac cath History of adenoidectomy Hx of tonsillectomy Hx of hernia repair History of section History of cholecystectomy History of appendectomy Family History Mother Cancer Father Heart attack Social History (Updated 06/18/24 @ 10:48 by Sloane Kearns Sim) Household Members: Children Housing: House Do you presently have visiting nurse or other home services: Yes Alcohol intake: never Patient Tobacco Use Status: Former Tobacco user Years Smoked: 30 +/- e-Cigarette/Vaping Use: Never Used Second Hand Smoke Exposure: No Substance Use Type: IV Drugs service: No Current occupational status: retired Current occupation: right hand dominant Review of Systems Const All systems reviewed & are unremarkable except as noted in HPI and below Physical Exam Vital Signs: BMI result Body Mass Index 25.9 Const General: cooperative and no acute distress Orientation/consciousness: patient oriented x3 Resp Effort & Inspection: normal respiratory effort and able to speak in complete sentences Cardio Peripheral pulses: Peripheral pulses 2+ throughout Neuro General: patient oriented x3 Extrem Other: Right shoulder normal to inspection she does have some protraction of the scapula. She has forward flexion to 90 degrees and she can activate rotator c uff strength with mild discomfort. Positive [place]. Neurovascularly intact. Office Procedures AMB Joint Injection/Aspiration Joint Injection/Aspiration Primary Site: right shoulder Prep: site was prepped using aseptic technique, ethochloride spray was applied a nd injection warnings given Injected: 40 mg of, DepoMedrol, with 8 mL of, 1% plain lidocaine and in the subcromial space Approach Used: posterolateral Procedure: The patient tolerated the procedure well and there was some relief with the local anesthesia Coding 43469 - Glenohumeral/Tronchanteric Bursa/Intraarticular Procedure code (CPT) selection complete Results Reviewed Results Reviewed: X-rays of the right shoulder obtained on May 15 are negative for any acute or chronic abnormalities. Type 2 acromion. Assessment & Plan Assessment & Plan (1) Impingement syndrome of right shoulder: Code(s): M75.41 - Impingement syndrome of right shoulder Category: Medical Plan: We discussed options today which include conservative management, physical therapy and steroid injections. She would like to proceed with physical therapy and a cortisone injection today. Right shoulder injection was performed which the patient tolerated well. She is a diabetic which is controlled on p.o. medication. I explained to her the risks associated with steroid injection and diabetes. She will monitor her sugars over the next several days. If she does not feel well or their concern she will go to the emergency department. I explained the injection may take approximately 6 weeks for full effect and pain relief. A strongly encourage physical therapy to work on posture and rotator cuff strength. Since she is wheelchair-bound outside of the house I would recommend home physical therapy services as she does not drive. She will see me back as needed. Coding Level of Care Code New Pt Level 3 (96295) Complex EM visit Add On G2211 Diagnoses Impingement syndrome of right shoulder M75.41 CPT Codes Coding - Joint 7: 21399 - Glenohumeral/Tronchanteric Bursa/Intraarticular ([id number])
[2024-06-18 10:48] VITALS: BMI 25.9
== END 2024-06-18 12:03 | disposition home or self-care (01) ==
PROVIDERS: PCP Internal Medicine Geriatric Medicine; Visit Provider Physician Assistant
DX: M75.41 Impingement syndrome of right shoulder (principal)
CPT/HCPCS: 20610; 99203

== ENCOUNTER → 2024-06-18 10:07 | Outpatient (BNVA) | payer MEDICARE, SELFPAY | PROVIDERS: PCP Internal Medicine Geriatric Medicine; Visit Provider Physician Assistant | DX: M75.41 Impingement syndrome of right shoulder (principal) | CPT/HCPCS: 20610; 99202; J1010; J2003 ==

== ENCOUNTER 2024-07-04 09:28 | Outpatient (REF) | payer MEDICARE, SELFPAY ==
--- NOTE | 2024-07-04 09:47 | PFT_ITS ---
Flows: FEV1: 102 % of predicted at 1.89 L FVC: 116 % of predicted at 2.71 L FEV1/FVC: 70 % Bronchodilator response: Absent Volumes: Patient unable to perform lung volumes maneuvers. Diffusion capacity: Moderately decreased, adjusts to being mildly decreased after correction for alveolar ventilation. Impression: Borderline obstructive ventilatory defect with no bronchodilator response. Patient unable to perform lung volumes maneuvers. Decreased diffusion capacity suggests emphysema. MTDD
== END 2024-07-04 09:29 | disposition home or self-care (01) ==
LOC: HO.RESP 09:28
PROVIDERS: PCP Internal Medicine Geriatric Medicine; Visit Provider Internal Medicine Cardiovascular Disease
DX: R06.00 Dyspnea, unspecified (principal)
CPT/HCPCS: 94010; 94640; 94727; 94729

== ENCOUNTER → 2024-07-04 09:47 | Outpatient (BNV) | payer MEDICARE, SELFPAY | PROVIDERS: PCP Internal Medicine Geriatric Medicine; Visit Provider Internal Medicine Pulmonary Disease | DX: R06.00 Dyspnea, unspecified (principal) | CPT/HCPCS: 94060; 94729 ==

== ENCOUNTER 2024-07-08 09:25 | Outpatient (AMB) | payer MEDICARE, SELFPAY ==
[2024-07-08 09:27] VITALS: BP 118/68; PULSE 86
--- NOTE | 2024-07-08 09:27 | A.OFFVIS_ITS ---
Vital Signs 07/08/24 09:27 Height 5 ft 2 in BMI Reason not done Patient refused/unable BP 118/68 Blood Pressure Location Rt brachial Position Sitting Pulse 86 Pulse Source Pulse Oximeter Intake Visit Reasons: Menopausal osteoporosis Intake Note: NEW Patient present here today to establish treatment for Menopausal Osteoporosis. 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 Accompanied by: Self / Same As Patient Allergies gluten Allergy (Verified 07/08/24 09:29) Unknown scallops Allergy (Verified 07/08/24 09:29) Unknown Medication List - Last Reconciled 07/08/24 by Bucky Velasquez MD acetaminophen ER (Tylenol 8 Hour) 1,300 mg PO Q8H PRN albuterol sulfate 90 mcg/actuation 2 puffs inhalation Q4H PRN alendronate 70 mg PO QWEEK amlodipine 2.5 mg PO DAILY 90 days ascorbic acid (vitamin C) 500 mg PO DAILY atorvastatin 40 mg PO DAILY betamethasone valerate 0.1% 1 appl topical DAILY biotin 5 mg PO DAILY cholecalciferol (vitamin D3) 50 mcg PO DAILY clopidogrel 75 mg PO DAILY cyanocobalamin (vitamin B-12) 1,000 mcg PO DAILY latanoprost 0.005% 1 drp ophthalmic (eye) BEDTIME levetiracetam (Keppra) 750 mg PO BID levothyroxine 112 mcg PO DAILY lidocaine HCl 2% 1 appl topical .at bedtime 4 weeks loperamide 2 mg PO QID PRN magnesium 500 mg PO DAILY melatonin mg PO metformin 500 mg PO BID milk thistle 500 mg PO BID mirabegron ER (Myrbetriq) 50 mg PO DAILY oxycodone-acetaminophen 5-325 mg 1 tab PO BID PRN pantoprazole 40 mg PO BID peg 400-propylene glycol (PF) 0.4-0.3 % (Systane (PF)) 1 drp ophthalmic (eye) BID simethicone 125 mg PO TID PRN trospium ER 60 mg PO DAILY zinc 50 mg PO DAILY HPI Comments Details: 78 YO Female with is seen in consultation at the request of PCP for Osteoporosis. First diagnosed in several yrs . Saw Raymundo Atkins in past. Never Received treatment in the past No history of pathologic fracture or ONJ. Fx L shoulder tripped . R foot fx 50 yrs ago after falling down stairs Has several servings of dietary calcium per day in the form of cheese, broccoli, ice cream . Not Takes Calcium supplement Takes 2000 IU of Vitamin D daily. Takes PPI, was on anticoagulant, on Keppra antiepileptic but no glucocorticoid medication. 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 UTD on dental cleanings and sees dentist every 6 months. No planned upcoming dental work or extractions. DXA dated :FINDINGS:09/29/22 AP SPINE L1-L4: BMD 0.785 g/cm2, Z-score -1.4, T-score -3.3, osteoporosis. LEFT FEMUR, NECK: BMD 0.573 g/cm2, Z-score -1.3, T-score -3.3, osteoporosis. LEFT FEMUR, TOTAL: BMD 0.639 g/cm2, Z-score -1.1, T-score -2.9, osteoporosis. IDENTIFIED RISK FACTORS: Early menopause, anticonvulsant, height loss, history of fracture (adult), osteoporosis, recurrent falls, secondary osteoporosis. HISTORY OF FRACTURE: Shoulder. MEDICATIONS: Calcium, vitamin D. MM/XR DEXA axial skeleton IMPRESSION: 1. DIAGNOSIS: Osteoporosis based on the lowest T-score value of -3.3 in the lumbar spine and femoral neck History of recent TIAs and MIs-partial wheelchair-bound [facility] Medical History Lower GI bleed Rectal bleed Anemia Stable angina Essential hypertension CVA (cerebral vascular accident) CAD (coronary artery disease) Surgical History Status post cardiac catheterization History of cardiac cath History of adenoidectomy Hx of tonsillectomy Hx of hernia repair History of section History of cholecystectomy History of appendectomy Family History Mother Cancer Father Heart attack Social History Household Members: Children Housing: House Do you presently have visiting nurse or other home services: Yes Alcohol intake: never Patient Tobacco Use Status: Former Tobacco user Years Smoked: 30 +/- e-Cigarette/Vaping Use: Never Used Second Hand Smoke Exposure: No Substance Use Type: IV Drugs service: No Current occupational status: retired Current occupation: right hand dominant Physical Exam There are no Cushingoid features. Absence of blue sclera. Absence of kyphosis. Thyroid gland is of nl size and weighs 15 gms. There are no thyroid nodules palpated. Lungs CTA. Heart S1 S2 Reg R/R Abdominal exam benign. Muscle strength 5/5 . Examination of spine reveals absence of tenderness on palpation Assessment & Plan Assessment & Plan (1) Osteoporosis: Code(s): M81.0 - Age-related osteoporosis without current pathological fracture Category: Medical Plan: This is a 78-year-old white female with a history of osteoporosis. Partial secondary workup was negative . Plan is to complete secondary workup by check a phosphorus level, 24 hour urine for calcium and creatinine, SPEP, urine immunofixation. Will ensure 1200 mg of calcium and 2000 IU of vitamin D3. Assuming secondary workup is negative would strongly consider use of anabolic therapy like Tymlos or Forteo proceeded by an anti resorptive therapy like Prolia or bisphosphonate. Evenityis contraindicated in lieu of the recent history of MN and CVA Orders: Orders Phosphorus Today M81.0 - Age-related osteoporosis without current pathological fracture Calcium, 24 Hr Ur Today M81.0 - Age-related osteoporosis without current pa thological fracture Creatinine, 24 Hr Group Today M81.0 - Age-related osteoporosis without current pathological fracture Protein Electrophoresis, Serum Today M81.0 - Age-related osteoporosis without current pathological fracture Immunofixation, Random Urine Today M81.0 - Age-related osteoporosis without current pathological fracture Coding Level of Care Code New Pt Level 4 (61155) Diagnoses Osteoporosis M81.0
== END 2024-07-08 10:17 | disposition home or self-care (01) ==
PROVIDERS: PCP Internal Medicine Geriatric Medicine; Visit Provider Internal Medicine Endocrinology, Diabetes & Metabolism
DX: M81.0 Age-related osteoporosis without current pathological fracture (principal)
CPT/HCPCS: 99204

== ENCOUNTER → 2024-07-08 09:25 | Outpatient (BNVA) | payer MEDICARE, SELFPAY | PROVIDERS: PCP Internal Medicine Geriatric Medicine; Visit Provider Internal Medicine Endocrinology, Diabetes & Metabolism | DX: M81.0 Age-related osteoporosis without current pathological fracture (principal) | CPT/HCPCS: 99202 ==

== ENCOUNTER 2024-07-16 15:35 | Emergency (ER) | payer MEDICARE, SELFPAY ==
--- NOTE | ~2024-07-16 | XR_ITS ---
CLINICAL HISTORY: ABD pain 1 view abdomen Comparison: None Findings: No pneumoperitoneum or pneumatosis. No abnormal calcifications. No acute fractures. IMPRESSION: The bowel gas pattern is within normal limits This document has been electronically signed by: Priscilla Shen MD on 07/16/2024 19:07:04
[2024-07-16 15:53] VITALS: BP 113/56; BP 168/79; PULSE 102; RESP 18; TEMP 36.5; O2SAT 94; O2SAT 95; BMI 27.4
[2024-07-16 17:47] VITALS: BP 114/52; PULSE 94; RESP 18; TEMP 36.6; O2SAT 97
--- OUTSIDE RECORDS SUMMARY | 2024-07-16 17:51 | XMS_ITS | Encounter Summary ---
Author Organization [employer] Address [address] [place] [address] 7 [place] [address] Care Team Providers Care Loan Supervisor Name Role Phone Name, Eddie GILMORE Primary Care Provider [phone] Reason for Visit * Reason Onset Date Comments Results 05/08/2023 Encounter Details Date Type Department Care Team ([facility] st Contact Info) Description 05/08/2023 Telephone [facility] [address] [place], [place] [phone] Name, MD Eddie [address] [place] [address] Results Social History Tobacco Use Types Packs/Day Years Used Date Smoking Tobacco: Never Smokeless Tobacco: Never Alcohol Use Standard Drinks/Week Comments Never 0 (1 standard drink = 0.6 oz pur e alcohol) Depression Answer Date Recorded Patient Health Questionnaire-9 Score 9 05/10/2024 Patient Health Questionnaire-9 Score 9 05/10/2024 Last PHQ-9: Questionnaire Data Not on file 1 07/10/2023 Housing Stability Answer Date Recorded What is your housing situation today? I have abad bridges 02/05/[address] you li ve. Do you have problems with any of the following? None of the above 02/05/2024 Food Insecurity Answer Date Recorded Within the past 12 months, y ou worried that your food would run out before you got money to buy more: Never True 02/05/2024 Within the past 12 months,th e food you bought just didn't last and you didn't have enough money to get more: Never True Transportation Answer Date Recorded In the past 12 months, has l ack of transportation kept you from medical appts, meetings, work or from getting things needed for daily living? No 02/05/2024 Utilities Answer Date Recorded In the past 12 months, has t he electric, gas, oil or water company threatened to shut off services in your home? No 02/05/2024 Depression Answer Date Recorded Patient Health Questionnaire-2 Score 2 05/10/2024 Internet Access Answer Date Recorded Internet Access Q1 No 02/19/2024 Internet Access Q2 I do not want or need it 07/2023 Comments Unknown Sex and Gender Information Value Date Recorded Sex Assigned at Female 04/18/2022 10:29 AM EDT Legal Sex Female 10:29 AM EDT Gender Identity Female 04/18/2022 10:29 AM EDT Sexual Orientation Straight 04/18/2022 10 :29 AM EDT documented as of this encounter Miscellaneous Notes * Telephone Encounter - Suzette Singh RN - 05/16/2023 3:38 PM EST T/C to pt. For below message, Pt. States her GI doctor is on medical leave and she is having question for medications and labs. Pt. Schedule for follow up apt. On 06/26/2023. Pt. Verbally agreed and understood. [facility] hours are reviewed. * Telephone Encounter - Camilo Limon - 05/08/2023 2:22 PM EST Tc from pt requesting to speak directly to PCP, States they were advised to contact GI appt to discuss lab results however GI provider is currently on leave. Please contact at [phone] documented in this encounter Plan of Treatment Upcoming Encounters Date Type Department Care Team (Late st Contact Info) Description 08/13/2024 9:45 AM EST Office Visit [facility] [address] [place] [address] documented as of this encounter Visit Diagnoses Not on filedocumented in this encounter Additional Health Concerns Assessment Noted Time PHQ-9 Depression Total Score: 10 023 1:16 PM EDT documented as of this encounter Care Teams Loan Supervisor Relationship Specialty Start Date End Date Name, MD Eddie [address] [facility] [place] [address] PCP - General Family Medicine 09/16/15 Jerica [facility] 07/01/24 documented as of this encounter
--- OUTSIDE RECORDS SUMMARY | 2024-07-16 17:51 | XMS_ITS | Encounter Summary ---
Author Organization [employer] Address [address] [place] [address] 7 [place] [address] Care Team Providers Care Occupational Health Technician Name Role Phone Name, Eddie GILMORE Primary Care Provider [phone] Reason for Visit * Reason Onset Date Comments Medication Question 02/09/2023 Encounter Details Date Type Department Care Team ([facility] st Contact Info) Description 02/09/2023 Telephone [facility] MEDICINE [address] [place], [place] [phone] Name, MD Eddie [address] [place] [address] Medication Question Social History Tobacco Use Types Packs/Day Years [...] Telephone Encounter - Suzette Singh RN - 02/14/2023 3:25 PM EDT T/C to [phone] for below message from PCP, No answer. LVM to call back on [phone]. * Telephone Encounter - Suzette Singh RN - 02/14/2023 2:23 PM EDT Please advise, [facility] would like to know if PCP recommended or advised pt it was okay to take electrolyte powder. * Telephone Encounter - Camilo Limon - 02/09/2023 8:54 AM EDT Tc from [facility] of [facility] requesting a call back , States pt is requesting electrolytes powder through [employer] however wants insurance to cover and would like to know if PCP recommended or advised pt it was okay to take. Please contact at [phone] if no answer please LVM documented in this encounter Plan of Treatment Upcoming Encounters Date Type Department Care Team (Late st Contact Info) Description 08/13/2024 9:45 AM EST Office Visit [facility] MEDICINE [address] [place] [address] documented as of this encounter Visit Diagnoses Not on filedocumented in this encounter Additional Health Concerns Assessment Noted Time PHQ-9 Depression Total Score: 10 023 1:16 PM EDT documented as of this encounter Care Teams Occupational Health Technician Relationship Specialty Start Date End Date Name, MD Eddie [address] [place] [address] PCP - General Family Medicine 09/16/15 Jerica [facility] 07/01/24 documented as of this encounter
--- OUTSIDE RECORDS SUMMARY | 2024-07-16 17:51 | XMS_ITS | Encounter Summary ---
Author Organization [employer] Address [address] [facility] 7t [place] [address] Care Team Providers Care Photovoltaic Technician Name Role Phone Name, Eddie GILMORE Primary Care Provider [phone] Encounter Details Date Type Department Care Team (Latest Contact Info) Description 07/16/2024 Travel Social History Tobacco Use Types Packs/Day Years [...] AM EDT documented as of this encounter Plan of Treatment Upcoming Encounters Date Type Department Care Team (Late st Contact Info) Description 08/13/2024 9:45 AM EST Office Visit [facility] MEDICINE [address] [place] [address] documented as of this encounter Visit Diagnoses Not on filedocumented in this encounter Additional Health Concerns Assessment Noted Time PHQ-9 Depression Total Score: 9 05/10/20 24 11:56 AM EST documented as of this encounter Care Teams Photovoltaic Technician Relationship Specialty Start Date End Date Name, MD Eddie [address] [place] [address] PCP - General Family Medicine 09/16/15 Jerica [facility] 07/01/24 documented as of this encounter
--- OUTSIDE RECORDS SUMMARY | 2024-07-16 17:51 | XMS_ITS | Encounter Summary ---
Author Organization [employer] Address [address] [place] [address] 7 [place] [address] Care Team Providers Care Fashion Merchandiser Name Role Phone Name, Eddie GILMORE Primary Care Provider Reason for Visit * Reason Comments Med Refill Encounter Details Date Type Department Care Team (Late st Contact Info) Description 05/08/2023 Refill [facility] MEDICINE [address] [place], [place] [phone] Name, MD Eddie [address] [place], [place] [phone] Chronic pain syndrome Social History Tobacco Use Types Packs/Day Years Used Date Smoking Tobacco: Never Smokeless Tobacco: Never Alcohol Use Standard Drinks/Week Comments Never 0 (1 standard drink = 0.6 oz pur e alcohol) Depression Answer Date Recorded Patient Health Questionnaire-9 Score 10 11/28/2022 Housing Stability Answer Date Recorded What is your housing situation today? I have housing today, but I am worried about losing housing in the future 04/03/[address] you li ve. Do you have problems with any of the following? None of the above 04/03/2023 Food Insecurity Answer Date Recorded Within the past 12 months, y ou worried that your food would run out before you got money to buy more: Never True 04/03/2023 Within the past 12 months,th e food you bought just didn't last and you didn't have enough money to get more: Never True Transportation Answer Date Recorded In the past 12 months, has l ack of transportation kept you from medical appts, meetings, work or from getting things needed for daily living? I am not sure 04/03/2023 Utilities Answer Date Recorded In the past 12 months, has t he electric, gas, oil or water company threatened to shut off services in your home? No 04/03/2023 Depression Answer Date Recorded Patient Health Questionnaire-2 Score 2 11/28/2022 Comments Unknown Sex and Gender Information Value [...] Description 08/13/2024 9:45 AM EST Office Visit [facility] MEDICINE [address] [place] [address] documented as of this encounter Visit Diagnoses Diagnosis Chronic pain syndrome documented in this encounter Additional Health Concerns Assessment Noted Time PHQ-9 Depression Total Score: 10 023 1:16 PM EDT documented as of this encounter Care Teams Fashion Merchandiser Relationship Specialty Start Date End Date Name, MD Eddie [address] [place] [address] PCP - General Family Medicine 09[facility]16[facility] documented as of this encounter
--- OUTSIDE RECORDS SUMMARY | 2024-07-16 17:51 | XMS_ITS | Encounter Summary ---
Author Organization [employer] Address [address] [facility] 7t [place] [address] Care Team Providers Care Carbon Cleaner Name Role Phone Name, Eddie GILMORE Primary Care Provider [phone] Encounter Details Date Type Department Care Team (Late st Contact Info) Description 07/16/2024 9:45 AM EST Office Visit [facility] MEDICINE [address] [place] [address] Mckenzie Trent, JENNIFER [address] [place] [address] [facility] (current) use of opiate analgesic Social History Tobacco Use Types Packs/Day Years [...] Description 08/13/2024 9:45 AM EST Office Visit [facility] MEDICINE [address] [place] [address] documented as of this encounter Procedures Procedure Name Priority Date/Time Associated Diagnosis Comments POCT ADRIAN-14 URINE DRUG SCREEN Routine 07/16/2024 1:49 PM EST [facility] (current) use of opiate analgesic documented in this encounter Results * POCT ADRIAN-14 Urine Drug Screen (07/16/2024 1:49 PM EST) Oxycodone Screen, Urine Positive Urine Urine specimen obtained by clean catch procedure / Unknown 07/16/2024 1:49 PM EST Mckenzie Trent SWEATBAND CUTTING MACHINE OPERATOR POINT OF CARE TEST ENTER/EDIT ORDERABLES Final Result documented in this encounter Visit Diagnoses Diagnosis [facility] (current) use of opiate analgesic documented in this encounter Additional Health Concerns Assessment Noted Time PHQ-9 Depression Total Score: 9 05/10/20 24 11:56 AM EST documented as of this encounter Care Teams Carbon Cleaner Relationship Specialty Start Date End Date Name, MD Eddie [address] [place] [address] PCP - General Family Medicine 09/16/15 Jerica [facility] 07/01/24 documented as of this encounter
--- OUTSIDE RECORDS SUMMARY | 2024-07-16 17:51 | XMS_ITS | Encounter Summary ---
Author Organization [employer] Address [address] [place] [address] 7 [place] [address] Care Team Providers Care Pilot Boat Operator Name Role Phone Name, Eddie GILMORE Primary Care Provider [phone] Reason for Visit * Reason Comments Med Refill Encounter Details Date Type Department Care Team (Late st Contact Info) Description 06/18/2023 Refill [facility] MEDICINE [address] [place], [place] [phone] Name, MD Eddie [address] [place], [place] [phone] Chronic pain syndrome Social History Tobacco Use [...] Description 08/13/2024 9:45 AM EST Office Visit [facility] MEDICINE [address] [place] [address] documented as of this encounter Visit Diagnoses Diagnosis Chronic pain syndrome documented in this encounter Additional Health Concerns Assessment Noted Time PHQ-9 Depression Total Score: 10 023 1:16 PM EDT documented as of this encounter Care Teams Pilot Boat Operator Relationship Specialty Start Date End Date Name, MD Eddie [address] [place] [address] PCP - General Family Medicine 09/16/15 [facility] documented as of this encounter
--- OUTSIDE RECORDS SUMMARY | 2024-07-16 17:51 | XMS_ITS | Encounter Summary ---
Author Organization [employer] Address [address] [place] [address] 7 [place] [address] Care Team Providers Care Supervisor Winter Name Role Phone Name, Eddie GILMORE Primary Care Provider [phone] Reason for Visit * Reason Onset Date Comments Referral 12/15/2023 Encounter Details Date Type Department Care Team ([facility] st Contact Info) Description 12/15/2023 Telephone [facility] MEDICINE [address] [place], [place] [phone] Name, MD Eddie [address] [place] [address] Referral Social History Tobacco Use Types Packs/Day Years [...] Telephone Encounter - Suzette Singh RN - 12/15/2023 4:00 PM EDT T/C to pt. For below message, pt. States she used to see neurologist at [facility] for seizure, but office called her and cancelled her apt. Because they are not taking her insurance. Pt. Called to insurance company and find out that Dr. Ashlee Wyatt MD office can take her insurance. So pt. Is asking for referral for this office. Please review and advise for referral request. * Telephone Encounter - Camilo Limon - 12/15/2023 3:06 PM EDT Tc from pt requesting a new referral for [facility]: Ashlee Montemayor MD, states they were being seen at [facility] [address] [place] [address], [place] [address] however they were advised they no longer take pt insurance. Please contact at [phone] documented in this encounter Plan of Treatment Upcoming Encounters Date Type Department Care Team ([facility] st Contact Info) Description 08/13/2024 9:45 AM EST Office Visit [facility] MEDICINE [address] [place] [address] documented as of this encounter Visit Diagnoses Not on filedocumented in this encounter Additional Health Concerns Assessment Noted Time PHQ-9 Depression Total Score: 12 024 1:04 PM EDT documented as of this encounter Care Teams Supervisor Winter Relationship Specialty Start Date End Date Name, MD Eddie [address] [place] [address] PCP - General Family Medicine 09/16/15 [facility] 07/01/24 documented as of this encounter
--- OUTSIDE RECORDS SUMMARY | 2024-07-16 17:51 | XMS_ITS | Encounter Summary ---
Author Organization [employer] Address [address] [place] [address] 7 [place] [address] Care Team Providers Care Rn Resource Nurse Name Role Phone Name, Eddie GILMORE Primary Care Provider [phone] Reason for Visit * Reason Onset Date Comments Referral 02/02/2023 Back dated refer ral Encounter Details Date Type Department Care Team ([facility] st Contact Info) Description 02/02/2023 Telephone [facility] MEDICINE [address] [place], [place] [phone] Name, MD Eddie [address] [place] [address] Referral (Back dated referral ) Social History Tobacco Use Types Packs/Day Years Used Date Smoking Tobacco: Never Smokeless Tobacco: Never Alcohol Use Standard Drinks/Week Comments Never 0 (1 standard drink = 0.6 oz pur e alcohol) Depression Answer Date Recorded Patient Health Questionnaire-9 Score 10 11/28/2022 Depression Answer Date Recorded Patient Health Questionnaire-2 Score 2 11/28/2022 Comments Unknown Sex and Gender Information Value Date Recorded Sex Assigned at Female 04/18/2022 10:29 AM EDT Legal Sex Female 10:29 AM EDT Gender Identity Female 04/18/2022 10:29 AM EDT Sexual Orientation Straight 04/18/2022 10 :29 AM EDT documented as of this encounter Miscellaneous Notes * Telephone Encounter - Kelly Nina - 03/08/2023 2:20 PM EDT Unable to process referral. Gaurav only back dates 30 days from DOS * Telephone Encounter - Louann Romo - 03/07/2023 1:40 PM EDT Tc from Kasie at [facility] requesting status on message below regarding referral. Fax number [phone]. Any questions please call [phone] * Telephone Encounter - Amber Roger RN - 02/03/2023 10:34 AM EDT Please review message below regarding backdated referral for these dates * Telephone Encounter - Laure Mcgill - 02/02/2023 2:07 PM EDT Tc from Kasie at [facility] calling in regards to referral needing to be back dated. Patient was seen at the office on 01/03/23 and 01/11/23. Fax number [phone]. Any questions please call [phone]. documented in this encounter Plan of Treatment Upcoming Encounters Date Type Department Care Team (Late st Contact Info) Description 08/13/2024 9:45 AM EST Office Visit [facility] MEDICINE [address] [place] [phone] documented as of this encounter Visit Diagnoses Not on filedocumented in this encounter Additional Health Concerns Assessment Noted Time PHQ-9 Depression Total Score: 10 023 1:16 PM EDT documented as of this encounter Care Teams Rn Resource Nurse Relationship Specialty Start Date End Date Name, MD Eddie [address] [place] [address] PCP - General Family Medicine 09/16/15 [facility] 07/01/24 documented as of this encounter
--- OUTSIDE RECORDS SUMMARY | 2024-07-16 17:51 | XMS_ITS | Encounter Summary ---
Author Organization [employer] Address [address] [place] [address] [place] [address] Care Team Providers Care Geological Drafter Name Role Phone Name, Eddie GILMORE Primary Care Provider [phone] Reason for Visit * Reason Comments Med Refill Encounter Details Date Type Department Care Team (Late st Contact Info) Description 02/26/2023 Refill [facility] MEDICINE [address] [place] [phone] Name, MD Eddie [address] [place] [phone] Chronic pain syndrome Social History Tobacco Use [...] Description 08/13/2024 9:45 AM EST Office Visit [facility] MEDICINE [address] [place] [address] [phone] documented as of this encounter Visit Diagnoses Diagnosis Chronic pain syndrome documented in this encounter Additional Health Concerns Assessment Noted Time PHQ-9 Depression Total Score: 10 023 1:16 PM EDT documented as of this encounter Care Teams Geological Drafter Relationship Specialty Start Date End Date Name, MD Eddie [address] [place] [address] PCP - General Family Medicine 09/16/15 Jerica [facility] 07/01/24 documented as of this encounter
--- OUTSIDE RECORDS SUMMARY | 2024-07-16 17:51 | XMS_ITS | Clinical Summary ---
Author Organization [employer] Address [address] [place] [address] [address] [place] [address] Care Team Providers Care Therapeutic Riding Instructor Name Role Phone Name, Eddie GILMORE Primary Care Provider [phone] Allergies Active Allergy Reactions Criticality Noted Date Comments Dipyridamole Headache 05/01/2017 Gluten Meal Unknown 06/16/2022 Gramineae Pollens Runny nose 02/02/2024 Latex 02/02/2024 Other Reaction(s): ekg stickies cused bleeding on skin after several days Esomeprazole Hives Medium 03/22/2024 Within past month she was on for about 3 days and developed SOB, hives and vomiting Shellfish Allergy Unknown 06/16/2022 scallops Medications Homeopathic Products (Arnicare) gel Applied twice daily 06/02/20 22 Active amLODIPine (Norvasc) 2.5 MG tablet TAKE 1 TABLET BY MOUTH ONCE DAILY 06/01/20 22 Active Blood Glucose Monitoring Suppl (Invested.in Verio Flex System) w/Device kit USE DIRECTED 03/16/20 22 Active latanoprost (Xalatan) 0.005 % ophthalmic solution 06/07/20 22 Active MILK THISTLE EXTRACT PO OTC daily 04/20/20 21 Active Myrbetriq 50 MG 24 hr tablet TAKE ONE TABLET BY MOUTH EVERY DAY DO NOT CRUSH OR CHEW 05/11/20 22 Active simethicone (Mylicon,Gas-X) 125 MG capsule OTC daily PRN gas/bloating 05/09/20 22 Active Polyethyl Glycol-Propyl Glycol (Systane) 0.4-0.3 % solution 1 drop in both eyes twice daily 04/19/20 22 Active acetaminophen (Tylenol 8 Hour) 650 MG ER tablet Take 2 tablets by oral route every 8 hours as needed for pain 04/19/20 22 Active biotin 5 MG capsule OTC daily 06/02/20 22 Active loperamide (Imodium A-D) 2 MG tablet take 1 tablet by oral route after 1st loose stool and 1 tablet (2 mg) after each next bowel movement; do not exceed 16 mg in 24hrs Active magnesium oxide 500 MG tablet OTC daily Active Zinc Acetate 50 MG capsule OTC 3 times daily 10/07/19 22 Active oral electrolytes replacement (Pedialyte) solution 10 ml po q 30 min prn vomiting or diarrhea 1000 mL 1 11/19/19 23 Active levETIRAcetam (Keppra) 750 MG tablet Take 1 tablet by mouth 2 times daily. 10/31/19 23 Active clopidogrel (Plavix) 75 MG tablet Take 75 mg by mouth in the morning. 01/10/20 23 Active Lancets (Healthcare InteractiveTouch Delica Plus [id number]) miscIndications :Controlled type 2 diabetes mellitus with complication, without long-term current use of insulin ([facility]) USE TO CHECK BLOOD SUGAR TWICE A DAY 100 each 5 09/15/19 24 Active glucose blood (WeStudy.Inuch Verio) test stripIndication s:Controlled type 2 diabetes mellitus with complication, without long-term current use of insulin ([facility]) CHECK BY FINGERSTICK TWICE DAILY 50 strip 11 10/06/19 24 Active atorvastatin (Lipitor) 40 MG tablet TAKE 1 TABLET BY MOUTH EVERY DAY 30 tablet 5 01/26/20 24 Active levothyroxine (Synthroid, Levoxyl) 112 MCG tabletIndicatio ns:Hypothyroidi sm, unspecified type TAKE 1 TABLET BY MOUTH EVERY DAY 90 tablet 1 03/14/20 24 Active naloxone (Narcan) 4 mg/0.1 mL nasal sprayIndication s:Chronic pain syndrome Administer 1 spray (4 mg) into affected nostril(s) if needed for opioid reversal. May repeat every 2-3 minutes if needed, alternating nostrils, until medical assistance becomes available. 2 each 2 03/22/20 24 Active metFORMIN (Glucophage) 500 MG tablet TAKE 1 TABLET BY MOUTH TWICE DAILY 180 tablet 1 03/25/20 24 Active cyanocobalamin (Vitamin B-12) 1000 MCG tablet TAKE 1 TABLET BY MOUTH EVERY DAY 90 tablet 1 10/07/20 24 Active pantoprazole (ProtoNix) 40 MG EC tablet Take 40 mg by mouth Once per day. 03/25/20 Active trospium (Sanctura XR) 60 MG 24 hour capsule Take 60 mg by mouth Once per day. Active cholecalciferol (Vitamin D-3) 50 MCG (2000 UT) tablet Take 2,000 Units by mouth Once per day. 90 tablet 2 03/28/20 Active famotidine (Pepcid) 40 MG tablet Take 1 tablet (40 mg) by mouth Once per day. OTC 90 tablet 2 03/28/20 Active melatonin 5 MG tablet Take 2 tablets by mouth Once per day. At bedtime 03/28/20 Active betamethasone valerate (Valisone) 0.1 % cream APPLY A THIN LAYER ONTO THE SKIN TO THE AFFECTED AREAS ONCE DAILY 15 g 05/22/20 24 Active oxyCODONE-aceta minophen (Percocet) 5-325 MG tabletIndicatio ns:Chronic pain syndrome Take 1 tablet by mouth every 8 (eight) hours if needed for severe pain for up to 28 days. Do not start before July 15, 2024. 84 tablet 07/15/19 25 2024 Active albuterol 108 (90 Base) MCG/ACT inhaler INHALE 2 PUFFS INTO THE LUNGS EVERY 4-6 HOURS NEEDED 8.5 g 1 07/12/19 25 Active albuterol 108 (90 Base) MCG/ACT inhaler INHALE 2 PUFFS INTO THE LUNGS EVERY 4-6 HOURS NEEDED 8.5 g 1 04/26/20 24 2024 Discontinued(R eorder (will not trigger notification to Pharmacy)) oxyCODONE-aceta minophen (Percocet) 5-325 MG tabletIndicatio ns:Chronic pain syndrome Take 1 tablet by mouth every 8 (eight) hours if needed for severe pain for up to 28 days. Do not start before June 17, 2024. 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 03/20 Overview (05/14/2024): Dx: chronic pain syndrome/back pain Rx: Percocet 5/325 every 12 hours Last DIRECTOR OF GROUP SALES agreement:03/22/24 Tier II (visit every 3 months) Additional considerations: mobility issues, using scooter Timeline: Chronic pain syndrome 03/05/2024 Assessment & Plan (05/14/2024 2:23 PM EST): Pt attended and participated in group today to the fullest of her abilities and desire - urine toxicology not performed, as normal last month; pill count as expected - continue to explore and use non-pharmacological means of pain management - followup in 1-2 months as desired Assessment & Plan (04/11/2024 6:30 AM EDT): Pt attended and participated in group today for the first time - urine toxicology and pill count as expected - continue to explore and use non-pharmacological means of pain management - followup in 1-2 months as desired Seizure disorder 02/05/2024 Abnormal nuclear stress test 11/28/2022 Anemia 11/28/2022 Overview (06/26/2023): 11/24/22 - EGD/colo: ? Impression: ?? 1. Normal esophagus ?? 2. Large Hill grade IV hiatal hernia ?? 3. Normal stomach (biopsy) ?? 4. Normal duodenum (biopsy) ?? 5. Normal colon and terminal ileum mucosa ?? 6. Diverticulosis ?? 7. Internal hemorrhoids ?CTE 01/16/23: ? Severe diverticulosis of the colon. ? Moderate size hiatal hernia. ? Small left renal stone. Areas of renal cortical thinning or scarring, left greater than right. ? VCE 01/17/23: ? 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 ? Lower GI bleed 11/28/2022 Rectal bleed 11/28/2022 Status post cardiac catheterization 11/28/2022 Contusion of right foot 07/07/2022 Assessment & Plan (07/07/2022 2:19 PM EST): Possible early cellulitis given new onset of redness, warmth, and pain. Will treat with Keflex TID for 10 days ER precautions discussed. 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 She understands this is the chronic dose and she should take BID as needed. Asthma 06/16/2022 Atherosclerosis of coronary artery 06/16/2022 Controlled type 2 diabetes m hamilton with complication, without long-term current use of insulin 06/16/2022 Stable angina 06/16/2022 CRISTINA (generalized anxiety disorder) 06/16/2022 GERD (gastroesophageal reflux disease) ST elevation (STEMI) myocardial infarction 06/16 Depressive disorder 06/16/2022 Presence of stent in LAD coronary artery 017 CVA (cerebral vascular accident) 11/16/2016 Cerebellar infarction 01/18/2016 Overactive bladder 09/16/2015 Allergic rhinitis 10/21/2010 HTN (hypertension) 06/22/2007 Overview (06/16/2022): Meedications stopped 10/04/17 due to dizziness and hypotension symptoms Glaucoma 06/21/2005 Hyperlipidemia 06/21/2005 Hypothyroidism 06/21/2005 Overview (06/16/2022): S/p ANA for hyperthyroid state Resolved Problems Problem Noted Date Diagnosed Date Resolved Date Acute UTI 11/28/2022 05/14/2024 Chest pain 11/28/2022 02/05/2024 Preoperative cardiovascular examination 11/28/2022 02/05/2024 Encounters Date Type Department Care Team Description 07/16/2024 9:45 AM EST Office Visit [facility] [address] [place] [address] Mckenzie Trent FNP 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 07/16/2024 9:15 AM EST Office Visit [address] [address] Kelly Montoya MD Chronic pain syndrome (Primary Dx) 07/16/2024 Travel 07/12/[address] [address] Eddie Marshall MD 07/12/2024 Refill [facility] [address] [place] [address] Eddie Marshall MD Chronic pain syndrome 07/02/2024 Telephone [facility] [address] [place] [address] Eddie Marshall MD 06/10/2024 Telephone [facility] [address] [place] [address] Eddie Marshall MD Med Refill 06/10/2024 Refill [facility] [address] [place] [address] 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 RN Chronic pain syndrome 06/03/2024 Telephone [facility] [address] [place] [address] Eddie Marshall MD Medication Question 05/29/2024 Orders Only [facility] [address] [place] [address] Eddie Marshall MD 05/29/2024 Telephone [facility] [address] [place] [address] 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, RN Pt agreeable Fosamax 05/29/2024 Telephone [facility] [address] [place] [address] Eddie Marshall MD Medication Question 05/24/2024 Refill [facility] [address] [place] [address] Eddie Marshall MD Chronic pain syndrome 05/24/2024 Telephone [facility] [address] [place] [address] Eddie Marshall MD Med Refill 05/22/2024 Refill [facility] [address] [place] [address] Jess Ring, JULY 05/15/2024 Orders Only [facility] [address] [place], [place] [address] Eddie Marshall MD 05/14/2024 10:45 AM EST Office Visit [facility] [address] [place] [address] Kelly Montoya MD Chronic pain syndrome (Primary Dx) 05/14/2024 9:45 AM EST Office Visit [facility] [address] [place] [address] Latanya Hoover MD 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 (Primary Dx); Chronic pain syndrome 05/14/2024 Travel 05/10/2024 11:30 AM EST Office Visit [facility] [address] [place] [address] Eddie Marshall MD Controlled type 2 diabetes mellitus with complication, without long-term current use of insulin ([facility]) (Primary Dx); Chronic right shoulder pain; Midline thoracic back pain, unspecified chronicity; Menopausal osteoporosis 05/08/2024 Telephone [facility] [address] [place] [address] Gem Hernandez MA Chart Prep 04/26/2024 Refill [facility] [address] [place] [address] Eddie Marshall MD 04/26/[address] [address] Eddie Marshall MD Chronic pain syndrome 04/25/2024 Orders Only GENERIC EXTERNAL DATA DEPARTMENT Provider, Generic External Data from Last 3 Months Immunizations Name Administration Dates Next Due Influenza injectable quadriv alent IIV4 with preservative 04/07/2016 Influenza, IIV3, injectable 03/23/2015,1 ,03/08/2013,04/06,05/01/2008,04/19/2007,05/10/2006 ,03/15/2005 Novel [id number], preservative-free 05/22/2009 Pneumococcal Polysaccharide PPSV23 07/11/2013, TD (adult), 2 Lf tetanus tox oid, preservative free, adsorbed 03/31/2003 Td (adult), 5 Lf tetanus tox oid, preservative free, adsorbed 03/24/2017 Social History Tobacco Use Types Packs/Day Years Used Date Smoking Tobacco: Never Smokeless Tobacco: Never Tobacco Cessation:Counseling Given: Not Answered Alcohol Use Standard Drinks/Week Comments Never 0 [...] Orientation Straight 04/18/2022 10 :29 AM EDT Last Filed Vital Signs Vital Sign Reading Time Taken Comments Blood Pressure 128/70 05/10/2024 11:33 AM EST Pulse 84 05/10/2024 11:33 AM EST Temperature 36.1 ??C (97 ??F) 05/10/2024 11:33 AM EST Respiratory Rate 12 05/10/2024 11:33 AM EST Oxygen Saturation 95% 05/10/2024 11:33 AM EST Inhaled Oxygen Concentration - - Weight 70.5 kg (155 lb 6.4 oz) 02/05/2024 11:38 AM EDT Height 154.9 cm (5' 1 ) 02/05/2024 11:38 AM EDT Body Mass Index 29.36 02/05/2024 11:38 AM EDT Plan of Treatment Upcoming Encounters Date Type Department Care Team (Late st Contact Info) Description 08/13/2024 9:45 AM EST Office Visit [facility] [address] [place] [address] Health Maintenance Due Date Last Done Comments Zoster Vaccines (1 of 2) 1996 Pneumococcal Vaccine: 65+ Years (2 of 2 - PCV) 07/11/2014 07/11/2013, 03/02/2005 DTaP/Tdap/Td Vaccines (1 - Tdap) 03/25/2017 03/24/2017, 03/31/2003 RSV Patients and Patients Aged 60 years or older (1 - 1-dose 75+ series) 2021 COVID-19 Vaccine ( - season) 2024 Influenza Vaccine (#1) 2024 6, 03/23/2015, 03/27/2014, Additional history exists Diabetes: Hemoglobin A1C 08/07/2024 024, 06/26/2023, 08/31/2022, Additional history exists Diabetes: Foot Exam 10/16/2024 10/17/2023, 10/17/2023, 10/17/2023, Additional history exists Depression Monitoring (PHQ-9) 11/07/2024 05/10/2024, 05/10/2024 Diabetes: Urine Protein Screening 01/15/2025 01/16/2024, 09/14/2022 Lipid Panel 01/15/2025 01/16/2024, 03/02/2023, 03/18/2020 Alcohol/Substance Use Screening 02/04/2025 02/05/2024 SDOH Screening 02/04/2025 02/05/2024 Depression Screening 05/10/2025 05/10/2024, 05/10/20 24 Tobacco Screening 05/14/2025 05/14/2024 Eye Exam 05/16/2025 05/16/2023 Hepatitis C Screening Completed 11/18/2022 HIB Vaccines Aged Out No longer eligi ble based on patient's age to complete this topic HPV Vaccines Aged Out No longer eligi ble based on patient's age to complete this topic Hepatitis A Vaccines Aged Out No long er eligible based on patient's age to complete this topic Hepatitis B Vaccines Aged Out No long er eligible based on patient's age to complete this topic IPV Vaccines Aged Out No longer eligi ble based on patient's age to complete this topic Meningococcal Vaccine Aged Out No sylvain loni eligible based on patient's age to complete this topic RSV under 20 months Aged Out No longe r eligible based on patient's age to complete this topic Rotavirus Vaccines Aged Out No longer eligible based on patient's age to complete this topic Procedures Procedure Name Priority Date/Time Associated Diagnosis Comments POCT ADRIAN-14 URINE DRUG SCREEN Routine 07/16/2024 1:49 PM EST 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 AMB REFERRAL TO ORTHOPAEDIC SURGERY Routine 06/03/2024 Chronic right shoulder pain XR THORACIC SPINE 2 VIEWS Routine 05/15/2024 12:55 PM EST Midline thoracic back pain, unspecified chronicity XR SHOULDER 2+ VIEWS RIGHT Routine 05/15/2024 12:55 PM EST Chronic right shoulder pain VITAMIN B12 Routine 05/15/2024 12:37 PM EST VITAMIN D,25-OH,TOTAL,IA Routine 05/15/2024 12:37 PM EST Menopausal osteoporosis POCT GLUCOSE Routine 05/10/2024 11:34 AM EST Controlled type 2 diabetes mellitus with complication, without long-term current use of insulin ([facility]) FERRITIN Routine 04/25/2024 11:01 AM EST IRON AND TOTAL IRON BINDING CAPACITY Routine 04/25/2024 11:01 AM EST CBC Routine 04/25/2024 11:01 AM EST POCT GLYCATED HEMOGLOBIN, TOTAL Routine 02/05/2024 12:14 PM EDT Controlled type 2 diabetes mellitus with complication, without long-term current use of insulin (CMS/HCC) LIPID PANEL, STANDARD Routine 01/16/2024 9:40 AM EDT Controlled type 2 diabetes mellitus with complication, without long-term current use of insulin (CMS/HCC) ALBUMIN, RANDOM URINE W/CREATININE Routine 01/16/2024 9:35 AM EDT Primary hypertension HM DIABETES EYE EXAM Routine 05/16/2023 HEPATITIS PANEL, GENERAL Routine 11/18/2022 2:07 PM EDT Diarrhea, unspecified type from Last 3 Months or Most Recently Relevant to Health Maintenance Results * POCT ADRIAN-14 Urine Drug Screen (07/16/2024 1:49 PM EST) Oxycodone Screen, Urine Positive Urine Urine specimen obtained by clean catch procedure / Unknown 07/16/2024 1:49 PM EST Mckenzie Trent JACQUARD [employer]ER POINT OF CARE TEST ENTER/EDIT ORDERABLES Final Result * Referral to Orthopaedic Surgery (06/03/2024) Eddie Marshall MD OUTPATIENT REFERRAL ORDERABLES F inal Result * XR Shoulder 2+ Views Right (05/15/2024 12:55 PM EST) Anatomical Region Laterality Modality Upper Extremities, Shoulder Right Radi ographic Imaging 05/15/2024 12:5 5 PM EST Narrative 05/16/2024 10:05 AM EST ? [facility] ?[address] ?[place] [address] ?XRay Report ? Signed ? Patient: Jenniffer,Celeste ?MR#: [id number] ?? 4 ? : 1945 ?Acct:[id number] ? Age/Sex: 78 / F ?ADM Date: 11/27/24 ? Loc: HO.[facility]CL ? Attending Dr: Eddie Marshall MD ? Ordering Physician: Eddie Marshall MD ?? Date of Service: 05/15/24 ?? Procedure(s): XR shoulder RT min 2V ?? Accession Number(s): [id number] ? cc: Name,Eddie GILMORE ? EXAMINATION: ?? XR SHOULDER, RIGHT ? CLINICAL INFORMATION: ?? Chronic right shoulder pain, decreased range of motion ? COMPARISON: ?? None available. ? TECHNIQUE: ?? AP external rotation, Grashey, scapular Y, and axillary views of the ?? right shoulder. ? FINDINGS: ?? No acute fracture or dislocation. No joint space narrowing and marginal ?? osteophytes. Small lateral subchondral spurs. No concerning lytic or ?? blastic osseous lesion. ? XR/XR shoulder RT min 2V ?? IMPRESSION: ?? Small lateral subacromial spurs. No acute osseous abnormality. ? Electronically signed by: ??Kashif Stinson MD ??05/16/2024 10:03 AM EST ? Dictated By: ?Kashif Stinson MD ? Signed By: ?<Electronically signed by Kashif Stinson MD in OV> ?05/16/24 1003 ? DD/ 1255 ? TD/TT: 05/15/24 1300 ? Customs Port Director: SR ? Procedure Note Geoff, Image - 05/16/2024 [place] [address] XRay Report Signed Patient: Celeste AbadMR#: [id number] 4 : 7Acct:[id number] Age/Sex: 78 / FADM Date: 05/15/24 Loc: HO.[facility] Attending Dr: Eddie Marshall MD Ordering Physician: Eddie Marshall MD Date of Service: 05/15/24 Procedure(s): XR shoulder RT min 2V Accession Number(s): [id number] cc: Eddie Marshall MD EXAMINATION: XR SHOULDER, RIGHT CLINICAL INFORMATION: Chronic right shoulder pain, decreased range of motion COMPARISON: None available. TECHNIQUE: AP external rotation, Grashey, scapular Y, and axillary views of the right shoulder. FINDINGS: No acute fracture or dislocation. No joint space narrowing and marginal osteophytes. Small lateral subchondral spurs. No concerning lytic or blastic osseous lesion. XR/XR shoulder RT min 2V IMPRESSION: Small lateral subacromial spurs. No acute osseous abnormality. Electronically signed by: Kashif Stinson MD 05/16/2024 10:03 AM EST Dictated By: Kashif Stinson MD Signed By: <Electronically signed by Kashif Stinson MD in OV> 05/16/24 1003 DD/ 1255 TD/TT: 05/15/24 1300 Customs Port Director: SR us Eddie Name IMG XR PROCEDURES Final Result * XR Thoracic Spine 2 Views (05/15/2024 12:55 PM EST) Anatomical Region Laterality Modality Spine, T-spine Radiographic Tanya ging 05/15/2024 12:5 5 PM EST Narrative 05/16/2024 10:23 AM EST ? [facility] ?[address] ?[place] [address] ?XRay Report ? Signed ? Patient: Celeste Abad ?MR#: [id number] ?? 4 ? : 1945 ?Acct:[id number] ? Age/Sex: 78 / F ?ADM Date: 05/15/24 ? Loc: HO.[facility]CL ? Attending Dr: Eddie Marshall MD ? Ordering Physician: Eddie Marshall MD ?? Date of Service: 05/15/24 ?? Procedure(s): XR thoracic spine 2V ?? Accession Number(s): [id number] ? cc: Eddie Marshall MD ? EXAMINATION: ?? XR THORACIC SPINE ? CLINICAL INFORMATION: ?? Pain. ? COMPARISON: ?? None available. ? TECHNIQUE: ?? AP and lateral views of the thoracic spine. ? FINDINGS: ?? Normal vertebral body alignment. The thoracic kyphosis is maintained. ?? No acute fracture or subluxation. No loss of vertebral body height. ?? Minimal multilevel loss of intervertebral disc height with tiny ?? endplate osteophytes. No concerning lytic or blastic osseous lesion. ?? The visualized lungs are clear. Right upper quadrant surgical clips. ? XR/XR thoracic spine 2V ?? IMPRESSION: ?? Minimal multilevel degenerative disc disease. ? Electronically signed by: ??Kashif Stinson MD ??05/16/2024 10:21 AM EST ?? RP ? Dictated By: ?Kashif Stinson MD ? Signed By: ?<Electronically signed by Kashif Stinson MD in OV> ?05/16/24 1021 ? DD/ 1255 ? TD/TT: 05/15/24 1300 ? Customs Port Director: SR ? Procedure Note Donotuseinterpreter, Image - 05/16/[address] [address] XRay Report Signed Patient: Celeste AbadMR#: [id number] 4 : 7Acct:[id number] Age/Sex: 78 / FADM Date: 05/15/24 Loc: HO.[facility] Attending Dr: Eddie Marshall MD Ordering Physician: Eddie Marshall MD Date of Service: 05/15/24 Procedure(s): XR thoracic spine 2V Accession Number(s): [id number] cc: Eddie Marshall MD EXAMINATION: XR THORACIC SPINE CLINICAL INFORMATION: Pain. COMPARISON: None available. TECHNIQUE: AP and lateral views of the thoracic spine. FINDINGS: Normal vertebral body alignment. The thoracic kyphosis is maintained. No acute fracture or subluxation. No loss of vertebral body height. Minimal multilevel loss of intervertebral disc height with tiny endplate osteophytes. No concerning lytic or blastic osseous lesion. The visualized lungs are clear. Right upper quadrant surgical clips. XR/XR thoracic spine 2V IMPRESSION: Minimal multilevel degenerative disc disease. Electronically signed by: Kashif Stinson MD 05/16/2024 10:21 AM EST Dictated By: Kashif Stinson MD Signed By: <Electronically signed by Kashif Stinson MD in OV> 05/16/24 1021 DD/ 1255 TD/TT: 05/15/24 1300 Customs Port Director: Eddie Marshall MD IM XR PROCEDURES Final Result * Vitamin D, 25-Hydroxy, Total, Immunoassay (05/15/2024 12:37 PM EST) Vitamin D 25-OH Total 72.9 >30 ng/mL [facility] Comment:Health Based Referen ce Values*< 20 ng/mL Azyyhalcd85-51 ng/mL Insufficient> 30 ng/mL Sufficient*Judy REDDY. N Engl J Med. 2007;357:266-280Care must be taken in interpreting Vitamin D results fromdifferent laboratories and methodologies. Published datademonstrated that results from patients undergoinghemodialysis may show a negative bias when tested withvarious automated 25-OH vitamin D assays when compared toLC-MS/MS.When testing samples from patients whose predominant form ofVitamin D is Vitamin D2, such as patients receiving VitaminD2 supplementation, results that are subtherapeutic shouldbe confirmed with another method such as LC-MS/MS. Blood Venous blood specimen / Unknown 05/15/2024 12:37 PM EST 05/15/2024 1:12 PM EST us Eddie Marshall MD LAB BLOOD ORDERABLES Final Resul t Performing Organization Address [facility] Co de Phone Number [facility] [address] [place] [phone] * (ABNORMAL) Vitamin B12 (05/15/2024 12:37 PM EST) Vitamin B12 >2,000(H) 200 - 900 pg/mL [facility] Comment:NORMAL 200-900 PG/ML INDETERMINATE 160-199 PG/ML DEFICIENT < 160 PG/ML 05/15/2024 12:3 7 PM EST 05/15/2024 1:12 PM EST us Eddie Marshall MD LAB BLOOD ORDERABLES Final Resul t Performing Organization Address [facility] Co de Phone Number [facility] [address] [place] [phone] * POCT Glucose (05/10/2024 11:34 AM EST) Glucose Blood, POC 129 60 - 200 mg/dL QC Media Lot # [id number] Lot# Expiration Date Blood Capillary blood specimen / Unknown 05/10/2024 11:34 AM EST us Eddie Marshall MD POINT OF CARE TEST ENTER/EDIT OR DERABLES Final Result * Iron And Total Iron Binding Capacity (04/25/2024 11:01 AM EST) Pathologist [facility] Iron 52 30 - 160 mcg/dL [facility] Total Iron Binding Capacity 306 228 - 428 mcg/dL [facility] Percent Iron Saturation 17 15 - 50 % [facility] Unsaturated Iron Binding 254 ug/dL [facility] 04/25/2024 11:0 1 AM EST 04/25/2024 11:01 AM EST us Generic External Data Provider LAB BLOOD ORDERAB LES Final Result [facility] [address] [place] [phone] * CBC (04/25/2024 11:01 AM EST) [facility] White Blood Count 8.1 4.8 - 10.8 X10*3/uL [facility] Red Blood Count 4.68 4.20 - 5.50 X10*6/uL [facility] Hemoglobin 13.6 12.0 - 16.0 g/dl [facility] Hematocrit 41.6 37.0 - 47.0 % [facility] Mean Corpuscular Volume 88.9 80.0 - 98.0 fL [facility] Mean Corpuscular Hemoglobin 29.1 27.0 - 33.0 pg [facility] Mean Corpuscular HGB Conc 32.7 31.0 - 35.0 g/dl [facility] Red Cell Distribution Width 14.7 11.0 - 16.0 % [facility] Platelet Count 268 160 - 400 X10*3/uL [facility] Mean Platelet Volume 10.4 9.4 - 12.3 fL [facility] NRBC Pct Auto 0.0 0.0 - 0.2 /100WBC [facility] NRBC Abs Auto 0.000 0.0 - 0.012 X10*3/uL [facility] 04/25/2024 11:0 1 AM EST 04/25/2024 11:01 AM EST us Generic External Data Provider LAB BLOOD ORDERAB LES Final Result Performing Organization Address City/[facility]/ZIP Co de Phone Number [facility] [address] [place] [phone] * Ferritin (04/25/2024 11:01 AM EST) Ferritin 85 10 - 250 ng/mL [facility] 04/25/2024 11:0 1 AM EST 04/25/2024 11:01 AM EST Generic External Data Provider LAB BLOOD ORDERAB LES Final Result Performing Organization Address City/[facility]/ZIP Co de Phone Number [facility] [address] [place] [phone] * POCT HGB A1C (02/05/2024 12:14 PM EDT) Pathologist [facility] Hemoglobin A1C 6.0 4.0 - 6.0 % Blood 02/05/2024 12:1 4 PM EDT us Eddie Joanna GILMORE POINT OF CARE TEST ENTER/EDIT OR DERABLES Final Result * (ABNORMAL) Lipid Panel, Standard (01/16/2024 9:40 AM EDT) Triglycerides 199(H) <150 mg/dL [facility] Comment:Desirable Triglyceri de: less than 150 mg/dLBorderline High Triglyceride 150-199 mg/dLHigh Triglyceride: 200-499 mg/dLVery High Triglyceride: greater than or equal to 5OO mg/dL Cholesterol 150 <200 mg/dL [facility] Comment:Desirable Cholestero l: less than 200 mg/dLBorderline High Cholesterol: 200-239 mg/dLHigh Cholesterol: greater than 239 mg/dL LDL Cholesterol Calculated 63 <100 mg/dL [facility] Comment:Desirable LDL: less than 100 mg/dLNear Optimal/Above Optimal LDL: 110- 129 mg/dLBorderline High LDL: 130-159 mg/dLHigh LDL: 160-189 mg/dLVery High LDL: greater than or equal to 190 mg/dL HDL Cholesterol 48 >40 mg/dL [facility] Comment:Desirable HDL: great er than 40 mg/dL Note: This HDL assay may give artificially low results in patients with liver disease. Blood Venous blood specimen / Unknown 01/16/2024 9:40 AM EDT 01/16/2024 11:20 AM EDT us Eddie Marshall MD LAB BLOOD ORDERABLES Final Resul t Performing Organization Address City/[facility]/ZIP Co de Phone Number [facility] [address] [place] [phone] * Albumin, Random Urine W/Creatinine (01/16/2024 9:35 AM EDT) Creatinine, Urine 27.62 mg/dL [facility] Microalbumin Urine <5.0 mg/L [facility] Microalbum Creatinine Ratio Ur TNP <30 ug/mg cr [facility] Comment:Unable to calculate albumin/creatinine ratio due to lowmicroalbumin or creatinine result. Urine (Urine, Random) 01/16/2024 9:35 AM EDT 01/16/2024 11:12 AM EDT us Eddie Marshall MD LAB URINE ORDERABLES Final Resul t Performing Organization Address City/[facility]/ZIP Co de Phone Number [facility] [address] [place] [phone] * Hm Diabetes Eye Exam (05/16/2023) Eye Exam Normal Normal us Eddie Marshall MD HEALTH MAINTENANCE Final Result * (ABNORMAL) Hepatitis Panel, General (11/18/2022 2:07 PM EDT) Hepatitis A Antibody Total REACTIVE( A) NON-REACT NAHID [facility] [place] [facility] Comment: For additional information, please refer to http://[employer]/faq/NOE559 (This link is being provided for informational/ educational purposes only.) Hepatitis B Surface Antibody QL NON-REACT NAHID NON-REACT NAHID [place] [place] [facility] Hepatitis B Surface Ag NON-REACT NAHID NON-REACT NAHID [place] [place] [facility] Hepatitis B Core Antibody Total NON-REACT NAHID NON-REACT NAHID [place] [place] [facility] Hepatitis C Antibody NON-REACT NAHID NON-REACT NAHID [place] [place] [facility] Index 0.07 <1.00 [facility] [place] [facility] Comment: HCV antibody was non-reactive. There is no laboratory evidence of HCV infection. In most cases, no further action is required. However, if recent HCV exposure is suspected, a test for HCV RNA (test code 42438) is suggested. For additional information please refer to http://[employer]/faq/NQX38a1 (This link is being provided for informational/ educational purposes only.) 11/18/2022 2:07 PM EDT 11/18/2022 2:09 PM EDT Narrative [facility] - 11/19/2022 6:51 AM EDT COLLECTION KIT GIVEN TO PATIENT. PATIENT ADVISED TO RETURN. Mckenzie Pillai [facility] BLOOD ORDERABLES Final Res ult [facility] [address], [place] [address] [facility] [place] [facility] [address] [place] [address] from Last 3 Months or Most Recently Relevant to Health Maintenance [place] [address] Care Teams Therapeutic Riding Instructor Relationship Specialty Start Date End Date Name, MD Eddie [address] [place] [phone] PCP - General Family Medicine 09/16/15 [place] [facility] 07/01/24
--- OUTSIDE RECORDS SUMMARY | 2024-07-16 17:51 | XMS_ITS | Encounter Summary ---
Author Organization [employer] Address [address] [place] [address] [place] [address] Care Team Providers Care Associate Professor Of Literature Name Role Phone Name, Eddie GILMORE Primary Care Provider [phone] Reason for Visit * Reason Comments Med Refill Encounter Details Date Type Department Care Team (Late st Contact Info) Description 01/29/2023 Refill [facility] [address] [place] [phone] Farhana Singh FNP [address] [place] [address] Dept of Internal Medicine [place] [phone] Social History Tobacco Use Types Packs/Day Years [...] 9:45 AM EST Office Visit [facility] [address] [place] [address] [phone] documented as of this encounter Visit Diagnoses Not on filedocumented in this encounter Additional Health Concerns Assessment Noted Time PHQ-9 Depression Total Score: 10 023 1:16 PM EDT documented as of this encounter Care Teams Associate Professor Of Literature Relationship Specialty Start Date End Date Name, MD Eddie [address] [place] [address] PCP - General Family Medicine 09/16/15 [place] Sim 07/01/24 documented as of this encounter
--- OUTSIDE RECORDS SUMMARY | 2024-07-16 17:51 | XMS_ITS | Encounter Summary ---
Author Organization [employer] Address [address] [place] [address] 7 [place] [address] Care Team Providers Care Fiberglass Boat Assembly Supervisor Name Role Phone Name, Eddie GILMORE Primary Care Provider [phone] Reason for Visit * Reason Onset Date Comments Medication Question 09/05/2023 Encounter Details Date Type Department Care Team ([facility] st Contact Info) Description 09/05/2023 Telephone [facility] [address] [place], [place] [phone] Name, MD Eddie [address] [place] [address] Medication Question Social History Tobacco Use Types [...] Telephone Encounter - Suzette Singh RN - 09/05/2023 1:13 PM EDT T/C to pharmacy, spoke with Ronny for below message to inform message for famotidine from PCP. Ronny verbally agreed and understood. Its add on to what she is using * Telephone Encounter - Danni Tabares - 09/05/2023 12:49 PM EDT Tc from Ronny with [facility] calling to get clarifications, they receive a script for famotidine (Pepcid) 40 MG tablet and the wanted to know if is for replace pantoprazole (Protonix) 40 MG EC tablet. Please contact pharmacy and advise. documented in this encounter Plan of Treatment Upcoming Encounters Date Type Department Care Team (Late st Contact Info) Description 08/13/2024 9:45 AM EST Office Visit [facility] [address] [place] [address] documented as of this encounter Visit Diagnoses Not on filedocumented in this encounter Additional Health Concerns Assessment Noted Time PHQ-9 Depression Total Score: 10 023 1:16 PM EDT documented as of this encounter Care Teams Fiberglass Boat Assembly Supervisor Relationship Specialty Start Date End Date Name, MD Eddie [address] [place] [address] PCP - General Family Medicine 09/16/15 [place] [facility] 07/01/24 documented as of this encounter
--- OUTSIDE RECORDS SUMMARY | 2024-07-16 17:51 | XMS_ITS | Encounter Summary ---
Author Organization [facility] [employer] Address [address] [place] [address] 7 [place] [address] Care Team Providers Care Parliamentary Archivist Name Role Phone Name, Eddie GILMORE Primary Care Provider [phone] Encounter Details Date Type Department Care Team ([facility] Contact Info) Description 11/18/2022 Abstract [facility] [address] [place] [address] [phone] Name, MD Eddie [address] [place] [address] [phone] Social History Tobacco Use Types Packs/Day Years Used Date Smoking Tobacco: Never Smokeless Tobacco: Never Alcohol Use Standard Drinks/Week Comments Never 0 (1 standard drink = 0.6 oz pur e alcohol) Comments Unknown Sex and Gender Information Value Date Recorded Sex Assigned at Female 04/18/2022 10:29 AM EDT Legal Sex Female 10:29 AM EDT Gender Identity Female 04/18/2022 10:29 AM EDT Sexual Orientation Straight 04/18/2022 10 :29 AM EDT COVID-19 Exposure Response Date Recorded In the last 10 days, have yo u been in contact with someone who was confirmed or suspected to have Coronavirus/COVID-19? No / Unsure 11/18/2022 12:39 PM EDT documented as of this encounter Plan of Treatment Upcoming Encounters Date Type Department Care Team ([facility] Contact Info) Description 08/13/2024 9:45 AM EST Office Visit [facility] [address] [place] [address] [phone] documented as of this encounter Visit Diagnoses Not on filedocumented in this encounter Care Teams Parliamentary Archivist Relationship Specialty Start Date End Date Name, MD Eddie [address] [facility] [place] [address] PCP - General Family Medicine 09/16/15 [place] S[facility] 07/01/24 documented as of this encounter
--- OUTSIDE RECORDS SUMMARY | 2024-07-16 17:51 | XMS_ITS | Encounter Summary ---
Author Organization [employer] Address [address] [place] [address] 7 [place] [address] Care Team Providers Care Knitted Cloth Examiner Name Role Phone Name, Eddie GILMORE Primary Care Provider [phone] Reason for Visit * Reason Onset Date Comments Med Refill 07/12/2024 Encounter Details Date Type Department Care Team ([facility] st Contact Info) Description 07/12/2024 Refill [facility] [address] [place], [place] [phone] Name, MD Eddie [address] [place], [place] [phone] Chronic pain syndrome Social History Tobacco Use [...] encounter Miscellaneous Notes * Telephone Encounter - Clari Moss - 07/12/2024 11:46 AM EST TC from pt requesting medication refill. Medications needing refill : oxyCODONE-acetaminophen (Percocet) 5-325 MG tablet To be sent to: [facility] Pharmacy documented in this encounter Plan of Treatment Upcoming Encounters Date Type Department Care Team (Late st Contact Info) Description 08/13/2024 9:45 AM EST Office Visit [facility] [address] [place] [address] documented as of this encounter Visit Diagnoses Diagnosis Chronic pain syndrome documented in this encounter Additional Health Concerns Assessment Noted Time PHQ-9 Depression Total Score: 9 05/10/20 24 11:56 AM EST documented as of this encounter Care Teams Knitted Cloth Examiner Relationship Specialty Start Date End Date Name, MD Eddie [address] [place] [address] PCP - General Family Medicine 09/16/15 [place] [facility] 07/01/24 documented as of this encounter
--- OUTSIDE RECORDS SUMMARY | 2024-07-16 17:51 | XMS_ITS | Encounter Summary ---
Author Organization [employer] Address [address] [place] [address] 7 [place] [address] Care Team Providers Care District Court Justice Name Role Phone Name, Eddie GILMORE Primary Care Provider [phone] Reason for Visit * Reason Onset Date Comments Medication Question 09/01/2023 Encounter Details Date Type Department Care Team ([facility] st Contact Info) Description 09/01/2023 Telephone [facility] [address] [place], [place] [phone] Name, MD Eddie [address] [place] [address] Medication Question Social History Tobacco Use Types [...] Telephone Encounter - Suzette Singh RN - 09/04/2023 1:50 PM EDT T/C to pharmacy for below message form PCP. Pharmacy verbally agreed and understood. * Telephone Encounter - Suzette Singh RN - 09/04/2023 1:06 PM EDT T/C to pharmacy for below message. Pharmacy states pt.is already on Pantoprazole 40 mg , Take 1 tablet by mouth before breakfast. Pharmacy received new rx. Famotidine 40 mg. Pharmacy is asking, is this medication is switch or if it is as add on. Please review and advise. Thanks. * Telephone Encounter - Abelino Vásquez - 09/01/2023 1:22 PM EDT Tc from pharmacy requesting clarification on medication. Pharmacy received famotidine (Pepcid) 40 MG tablet and while having amLODIPine (Norvasc) 2.5 MG tablet and they want to know if there sheldon be aswitch or if it's an add on. Please contact pharmacy at [phone]. documented in this encounter Plan of Treatment Upcoming Encounters Date Type Department Care Team (Late st Contact Info) Description 08/13/2024 9:45 AM EST Office Visit [facility] [address] [place] [address] documented as of this encounter Visit Diagnoses Not on filedocumented in this encounter Additional Health Concerns Assessment Noted Time PHQ-9 Depression Total Score: 10 023 1:16 PM EDT documented as of this encounter Care Teams District Court Justice Relationship Specialty Start Date End Date Name, MD Eddie [address] [place] [address] PCP - General Family Medicine 09/16/15 [place] A 07/01/24 documented as of this encounter
--- OUTSIDE RECORDS SUMMARY | 2024-07-16 17:51 | XMS_ITS | Encounter Summary ---
Author Organization [employer] Address [address] [facility] 7t [place] [address] Care Team Providers Care Cytogeneticist Name Role Phone Name, Eddie GILMORE Primary Care Provider [phone] Encounter Details Date Type Department Care Team ([facility] st Contact Info) Description 07/02/2024 Telephone [facility] [address] [place], [place] [phone] Name, MD Eddie [address] [place] [address] Social History Tobacco Use Types Packs/Day Years [...] Miscellaneous Notes * Telephone Encounter - Clari Parkinson - 07/02/2024 1:25 PM EST T/c call to patient per recall, patient didn't answer. If patient call back you can book for august.Letter sent. documented in this encounter Plan of Treatment Upcoming Encounters Date Type Department Care Team (Late st Contact Info) Description 08/13/2024 9:45 AM EST Office Visit [facility] [address] [place] [address] documented as of this encounter Visit Diagnoses Not on filedocumented in this encounter Additional Health Concerns Assessment Noted Time PHQ-9 Depression Total Score: 9 05/10/20 24 11:56 AM EST documented as of this encounter Care Teams Cytogeneticist Relationship Specialty Start Date End Date Name, MD Eddie [address] [place] [address] PCP - General Family Medicine 09/16/15 [place] SEN 07/01/24 documented as of this encounter
--- OUTSIDE RECORDS SUMMARY | 2024-07-16 17:51 | XMS_ITS | Encounter Summary ---
Author Organization [employer] Address [address] [place] [address] 7 [place] [address] Care Team Providers Care Per Diem Physical Therapist Name Role Phone Name, Eddie GILMORE Primary Care Provider [phone] Reason for Visit * Reason Comments Med Refill Encounter Details Date Type Department Care Team (Late Contact Info) Description 12/01/2022 Refill [facility] 230 [place], [place] [phone] Name, MD Eddie [address] [place] [address] Controlled type 2 diabetes mellitus with complication, without long-term current use of insulin ([facility]) Social History Tobacco Use Types Packs/Day Years [...] suspected to have Coronavirus/COVID-19? No / Unsure 11/28/2022 1:04 PM EDT documented as of this encounter Plan of Treatment Upcoming Encounters Date Type Department Care Team (Late Contact Info) Description 08/13/2024 9:45 AM EST Office Visit [facility] [address] [facility] [place] [address] documented as of this encounter Visit Diagnoses Diagnosis Controlled type 2 diabetes mellitus with complication, without long-term current use of insulin ([facility]) documented in this encounter Additional Health Concerns Assessment Noted Time PHQ-9 Depression Total Score: 10 11/28/ 023 1:16 PM EDT documented as of this encounter Care Teams Per Diem Physical Therapist Relationship Specialty Start Date End Date Name, MD Eddie [address] [facility] [place] [address] PCP - General Family Medicine 09/16/15 [place] Sim 07/01/24 documented as of this encounter
--- OUTSIDE RECORDS SUMMARY | 2024-07-16 17:51 | XMS_ITS | Encounter Summary ---
Author Organization [employer] Address [address] [place] [address] 7t [place] [address] Care Team Providers Care Lens Maker Name Role Phone Name, Eddie GILMORE Primary Care Provider [phone] Encounter Details Date Type Department Care Team ([facility] st Contact Info) Description 12/07/2022 Telephone [facility] [address] [place], [place] [phone] Name, MD Eddie [address] [place] [address] Social History Tobacco Use Types Packs/Day Years [...] PM EDT documented as of this encounter Miscellaneous Notes * Telephone Encounter - Haydee Chacko LPN - 12/07/2022 3:16 PM EDT Critical Result line call received. Per specimen obtained 12/06/22 + CDIFF PCR Please update PCP now. Ordering provider Pierce Pillai [employer]ING PLANT OPERATOR Follow with genaro as indicated. Results faxed at time of call to [phone]. Ref.# [id number] C documented in this encounter Plan of Treatment Upcoming Encounters Date Type Department Care Team (Late st Contact Info) Description 08/13/2024 9:45 AM EST Office Visit [facility] [address] [place] [address] documented as of this encounter Visit Diagnoses Not on filedocumented in this encounter Additional Health Concerns Assessment Noted Time PHQ-9 Depression Total Score: 10 023 1:16 PM EDT documented as of this encounter Care Teams Lens Maker Relationship Specialty Start Date End Date Name, MD Eddie [address] [place] [address] PCP - General Family [facility] documented as of this encounter
--- OUTSIDE RECORDS SUMMARY | 2024-07-16 17:51 | XMS_ITS | Encounter Summary ---
Author Organization [employer] Address [address] [place] [address] 7 [place] [address] Care Team Providers Care Industrial Property Appraiser Name Role Phone Name, Eddie GILMORE Primary Care Provider Reason for Visit * Reason Onset Date Comments Med Refill 07/12/2024 Encounter Details Date Type Department Care Team ([facility] st Contact Info) Description 07/12/2024 Refill [facility] [address] [place], [place] [phone] Name, MD Eddie [address] [place] [address] Social History Tobacco Use Types Packs/Day Years [...] encounter Miscellaneous Notes * Telephone Encounter - Marisol Lobo LPN - 07/12/2024 11:52 AM EST Last seen 05/14/24. * Telephone Encounter - Clari Moss - 07/12/2024 11:47 AM EST TC from pt requesting medication refill. Medications needing refill : albuterol 108 (90 Base) MCG/ACT inhaler To be sent to: [facility] pharmacy documented in this encounter Plan of Treatment Upcoming Encounters Date Type Department Care Team (Late st Contact Info) Description 08/13/2024 9:45 AM EST Office Visit [facility] [address] [place] [address] documented as of this encounter Visit Diagnoses Not on filedocumented in this encounter Additional Health Concerns Assessment Noted Time PHQ-9 Depression Total Score: 9 05/10/20 11:56 AM EST documented as of this encounter Care Teams Industrial Property Appraiser Relationship Specialty Start Date End Date Name, MD Eddie [address] [place] [address] PCP - General Family Medicine 09/16/15 [place] SEN 07/01/24 documented as of this encounter
--- OUTSIDE RECORDS SUMMARY | 2024-07-16 17:51 | XMS_ITS | Encounter Summary ---
Author Organization [employer] Address [address] [place] [address] 7 [place] [address] Care Team Providers Care Account Liaison Hospice Name Role Phone Name, Eddie GILMORE Primary Care Provider Reason for Visit * Reason Comments Acupuncture Encounter Details Date Type Department Care Team ([facility] st Contact Info) Description 07/16/2024 9:15 AM EST Office Visit [facility] 230 [place], [place] [phone] Kelly Montoya MD [address] [place], [place] [phone] Chronic pain syndrome (Primary Dx) Social History Tobacco Use Types Packs/Day Years [...] AM EDT documented as of this encounter Progress Notes * Kelly Montoya MD - 07/16/2024 9:15 AM EST Subjective Patient ID: Celeste Abad is a 78 y.o. female who presents for Acupuncture. Celeste is here for acupuncture treatment #7 for chronic pain. She hasn't gotten a treatment for a few months, but now realizes that it had been helping with EMANUEL's. Review of Systems Musculoskeletal: Positive for myalgias. Objective Physical Exam Constitutional: Appearance: Normal appearance. Skin: General: Skin is warm and dry. Neurological: Mental Status: She is alert and oriented to person, place, and time. Assessment/Plan Diagnoses and all orders for this visit: Chronic pain syndrome Written consent obtained for ear acupuncture. Ears prepped with alcohol pad. Five ear points needled bilaterally: Sympathetic, Kovacs Men, Kidney, Liver and Lung. Treatment duration: 30 minutes. Good hemostasis. Patient tolerated well. Follow up weekly for repeat acupuncture treatments as desired. documented in this encounter Plan of Treatment Upcoming Encounters Date Type Department Care Team (Late st Contact Info) Description 08/13/2024 9:45 AM EST Office Visit [facility] [address] [place] [phone] documented as of this encounter Visit Diagnoses Diagnosis Chronic pain syndrome- Primary documented in this encounter Additional Health Concerns Assessment Noted Time PHQ-9 Depression Total Score: 9 05/10/20 24 11:56 AM EST documented as of this encounter Care Teams Account Liaison Hospice Relationship Specialty Start Date End Date Name, MD Eddie [address] [place] [address] PCP - General Family Medicine 09/16/15 [place] Sim 07/01/24 documented as of this encounter
--- OUTSIDE RECORDS SUMMARY | 2024-07-16 17:51 | XMS_ITS | Encounter Summary ---
Author Organization [employer] Address [address] [place] [address] [place] [address] Care Team Providers Care Science Tutor Name Role Phone Name, Eddie GILMORE Primary Care Provider Reason for Visit * Reason Onset Date Comments Hospital Follow-up 11/10/2022 Encounter Details Date Type Department Care Team (Late st Contact Info) Description 11/10/2022 Refill [facility] [address] [place], [place] [phone] Name, MD Eddie [address] [place] [address] Social History Tobacco Use Types Packs/Day Years [...] Telephone Encounter - Suzette Singh RN - 11/22/2022 11:42 AM EDT ----- Message from Amber Roger RN sent at 11/22/2022 9:06 AM EDT ----- ----- Message ----- From: DENIS Jackman Sent: 11/21/2022 5:23 PM EDT To: [facility] Team Nurses Hi team! Sent this pt to the ED over the weekend for Hgb 7. Got admitted and looks like recently discharged. Can you please outreach her for status check and sched HDF w/ Name? Thank you!! * Telephone Encounter - Suzette Singh RN - 11/22/2022 11:10 AM EDT T/C to [phone] to schedule HDF apt. No answer. LVM to call back on [phone]. ----- Message from Amber Roger RN sent at 11/22/2022 9:06 AM EDT ----- ----- Message ----- From: DENIS Jackman Sent: 11/21/2022 5:23 PM EDT To: [facility] Team Nurses Oh team! Sent this pt to the ED over the weekend for Hgb 7. Got admitted and looks like recently discharged. Can you please outreach her for status check and sched HDF w/ DrRod Name? Thank you!! documented in this encounter Plan of Treatment Upcoming Encounters Date Type Department Care Team (Late st Contact Info) Description 08/13/2024 9:45 AM EST Office Visit [facility] [address] [place] [address] documented as of this encounter Visit Diagnoses Not on filedocumented in this encounter Care Teams Science Tutor Relationship Specialty Start Date End Date Name, MD Eddie [address] [place] [address] PCP - General Family Medicine 09/16/15 [facility] 07/01/24 documented as of this encounter
--- OUTSIDE RECORDS SUMMARY | 2024-07-16 17:51 | XMS_ITS | Encounter Summary ---
Author Organization [employer] Address [address] [place] [address] 7 [place] [address] Care Team Providers Care Signal Tower Director Name Role Phone Name, Eddie GILMORE Primary Care Provider Reason for Visit * Reason Onset Date Comments Active Med List 06/28/2023 Encounter Details Date Type Department Care Team ([facility] st Contact Info) Description 06/28/2023 Telephone [facility] [address] [place], [place] [phone] Name, MD Eddie [address] [place] [address] Active Med List Social History Tobacco Use Types Packs/Day Years [...] encounter Miscellaneous Notes * Telephone Encounter - Aleksandra Talavera RN - 06/29/2023 3:33 PM EST Med list faxed to [facility] as requested. Confirmation received. * Telephone Encounter - Alejandro Dougherty - 06/28/2023 2:38 PM EST Tc from [place] [facility] requesting a updated active medication list technical report writer did attempt to transfer to Medical records so that she can obtain this information but they kept transferring back to the call center. [facility] [address], [place], [place] [phone] documented in this encounter Plan of Treatment Upcoming Encounters Date Type Department Care Team (Late st Contact Info) Description 08/13/2024 9:45 AM EST Office Visit [facility] [address] [place] [address] documented as of this encounter Visit Diagnoses Not on filedocumented in this encounter Additional Health Concerns Assessment Noted Time PHQ-9 Depression Total Score: 10 023 1:16 PM EDT documented as of this encounter Care Teams Signal Tower Director Relationship Specialty Start Date End Date Name, MD Eddie [address] [place] [address] PCP - General Family Medicine 09/16/15 [facility] 07/01/24 documented as of this encounter
--- OUTSIDE RECORDS SUMMARY | 2024-07-16 17:52 | XMS_ITS | Encounter Summary ---
Author Organization [employer] Address [address] [place] [address] 7 [place] [address] Care Team Providers Care Credit And Loan Collections Supervisor Name Role Phone Name, Eddie GILMORE Primary Care Provider [phone] Reason for Visit * Reason Comments Med Refill Encounter Details Date Type Department Care Team (Late Contact Info) Description 01/04/2023 Refill [facility] [address] [place] [address] [phone] Name, MD Eddie [address] [place] [id number] Gastroesophageal reflux disease, unspecified whether esophagitis present Social History Tobacco Use Types Packs/Day Years [...] suspected to have Coronavirus/COVID-19? No / Unsure 12/16/2022 10:53 AM EDT documented as of this encounter Plan of Treatment Upcoming Encounters Date Type Department Care Team (Late Contact Info) Description 08/13/2024 9:45 AM EST Office Visit [facility] [address] [facility] [place] [address] documented as of this encounter Visit Diagnoses Diagnosis Gastroesophageal reflux disease, unspecified whether esophagitis present documented in this encounter Additional Health Concerns Assessment Noted Time PHQ-9 Depression Total Score: 10 11/28/ 023 1:16 PM EDT documented as of this encounter Care Teams Credit And Loan Collections Supervisor Relationship Specialty Start Date End Date Name, MD Eddie [address] [place] [address] PCP - General Family Medicine 09/16/15 [facility] 07/01/24 documented as of this encounter
[2024-07-16 19:13] LABS: MANUAL DIFF FLAG NO
[2024-07-16 19:14] LABS: Basophils Percent Auto 0.2 % (0-2); Eosinophils Absolute Auto 0.1 X10*3/uL (0.0-0.4); Eosinophils Percent Auto 0.7 % (0-4); Hematocrit 40.7 % (37.0-47.0); Hemoglobin 13.3 g/dl (12.0-16.0); Imm Gran Abs Auto 0.03 X10*3/uL (0.00-0.03); Imm Gran Pct Auto 0.3 % (0.0-0.4); Lymphocytes Absolute Auto 1.7 X10*3/uL (1.2-4.9); Lymphocytes Percent Auto 16.3 % (20-40); Mean Corpuscular HGB Conc 32.7 g/dl (31.0-35.0); Mean Corpuscular Hemoglobin 28.4 pg (27.0-33.0); Mean Platelet Volume 9.9 fL (9.4-12.3); Monocytes Absolute Auto 0.8 X10*3/uL (0.1-1.2); Neutrophils Absolute Auto 7.6 x10*3/uL (2.0-8.3); Neutrophils Percent Auto 74.5 % (45-73); Platelet Count 272 X10*3/uL (160-400); Red Blood Count 4.68 X10*6/uL (4.20-5.50); White Blood Count 10.1 X10*3/uL (4.8-10.8)
[2024-07-16 19:32] LABS: Alanine Aminotransferase 27 U/L (0-31); Albumin Level 3.9 g/dL (3.5-5.0); Alkaline Phosphatase 136 U/L (39-117); Anion Gap 16 (12-20); Aspartate Amino Transferase 37 U/L (5-31); Bilirubin Direct 0.2 mg/dL (0.0-0.5); Bilirubin Total 0.4 mg/dL (0.0-1.0); Blood Urea Nitrogen 18 mg/dL (9-16); Calcium 9.1 mg/dL (8.4-10.2); Carbon Dioxide 25 mmol/L (22-29); Chloride 102 mmol/L (96-108); Creatinine Clr Calc Pharmacy 58.3; Estimated Glomerular Filt Rate > 60; Glucose Random 124 mg/dL (60-115); Lipase 8 U/L (8-78); Magnesium 2.2 mg/dL (1.6-2.6); Potassium 4.3 mmol/L (3.3-5.1); Sodium 139 mmol/L (135-145); Total Protein 7.5 g/dL (6.5-8.0)
[2024-07-16 19:53] LABS: Influenza A PCR NEGATIVE (Negative); Influenza B PCR NEGATIVE (Negative); Resp Syncy Virus RNA Qual PCR NEGATIVE (Negative); SARS COV2 PCR INHOUSE NEGATIVE (Negative)
--- NOTE | 2024-07-16 20:55 | ED_ITS ---
HPI - Abdominal Pain General Chief Complaint: Abdominal Pain Stated Complaint: no bowel movements x4 days, abd pain Time Seen by Provider: 07/16/24 20:01 Source: patient Limitations: no limitations History of Present Illness ED Provider: Jodi Canales PA-C HPI narrative: 78-year-old female with a history of osteoporosis, impingement syndrome of the right shoulder on chronic opiate therapy, hypertension, hyperlipidemia, diabetes, coronary artery disease s/p drug-eluting stents in proximal and mid LAD and proximal RCA, multiple MIs, multiple CVAs, multiple TIAs with subsequent gait instability who uses a walker/wheelchair at baseline, seizure disorder, hypothyroidism, GERD presents with the abdominal pain x4 days. The abdominal pain is diffuse, with the associated constipation, last bowel movement 4 days ago. Patient states she developed nausea vomiting today. Patient denies abdominal distention or inability to pass flatus. Patient states she attempted to administer an enema without relief from symptoms. Related Data Home Medications ?Medication ?Instructions ?Recorded ?Confirmed albuterol sulfate 90 mcg/actuation 2 puff inhalation Q4H PRN 09/30/20 07/08/24 aerosol inhaler Respiratory Distress latanoprost 0.005 % eye drops 1 drp ophthalmic (eye) BEDTIME 09/30/20 07/08/24 oxycodone-acetaminophen 5 mg-325 1 tab PO BID PRN Pain (Scale Score 09/30/20 07/08/24 mg tablet 7-10) acetaminophen 650 mg 1,300 mg PO Q8H PRN Pain 02/24/21 07/08/24 tablet,extended release (Tylenol 8 Hour) magnesium 250 mg tablet 500 mg PO DAILY 02/24/21 07/08/24 milk thistle 500 mg capsule 500 mg PO BID 02/24/21 07/08/24 zinc 50 mg tablet 50 mg PO DAILY 02/24/21 07/08/24 cyanocobalamin (vitamin B-12) 1,000 mcg PO DAILY 03/16/22 07/08/24 1,000 mcg tablet levothyroxine 112 mcg tablet 112 mcg PO DAILY 03/16/22 07/08/24 metformin 500 mg tablet 500 mg PO BID 03/16/22 07/08/24 biotin 5 mg capsule 5 mg PO DAILY 05/04/22 07/08/24 atorvastatin 40 mg tablet 40 mg PO DAILY 06/16/22 07/08/24 mirabegron 50 mg tablet,extended 50 mg PO DAILY 06/16/22 07/08/24 release 24 hr (Myrbetriq) ascorbic acid (vitamin C) 500 mg 500 mg PO DAILY 11/19/22 07/08/24 tablet betamethasone valerate 0.1 % 1 appl topical DAILY 11/19/22 07/08/24 topical cream levetiracetam 750 mg tablet 750 mg PO BID 11/19/22 07/08/24 (Keppra) loperamide 2 mg tablet 2 mg PO QID PRN LOOSE STOOLS 11/19/22 07/08/24 peg 400-propylene glycol (PF) 0.4 1 drp ophthalmic (eye) BID 11/19/22 07/08/24 %-0.3 % eye drops in a dropperette (Systane (PF)) simethicone 125 mg chewable tablet 125 mg PO TID PRN GAS/BLOATING 11/19/22 07/08/24 trospium 60 mg capsule,extended 60 mg PO DAILY 01/29/24 07/08/24 release 24 hr cholecalciferol (vitamin D3) 50 50 mcg PO DAILY 05/22/24 07/08/24 mcg (2,000 unit) tablet melatonin 5 mg tablet mg PO 05/22/24 07/08/24 alendronate 70 mg tablet 70 mg PO QWEEK 06/18/24 07/08/24 Previous Rx's ?Medication ?Instructions ?Recorded clopidogrel 75 mg tablet 75 mg PO DAILY #90 tabs 12/08/23 lidocaine HCl 2 % topical cream 1 appl topical .at bedtime 4 weeks 02/20/24 #118 mL amlodipine 2.5 mg tablet 2.5 mg PO DAILY 90 days #90 tabs 03/28/24 pantoprazole 40 mg tablet,delayed 40 mg PO BID #60 tabs 05/29/24 release Allergies Allergy/AdvReac Type Severity Reaction Status Date / Time gluten Allergy Unknown Verified 07/16/24 15:54 scallops Allergy Unknown Verified 07/08/24 09:29 Review of Systems Review of Systems Yes all other systems are reviewed and are negative Constitutional: Denies fatigue and Denies fever(s) Cardiovascular: Denies chest pain and Denies dyspnea Respiratory: Denies cough and Denies dyspnea Gastrointestinal: Reports abdominal pain, Reports constipation, Denies diarrhea, Reports nausea and Reports vomiting Endocrine: Denies fatigue COUNT INCLUDES THE [facility] Past Medical History Attestation statement: The following information was validated with the patient. Medical History (Updated 07/16/24 @ 21:13 by MULUGETA Flores) Osteoporosis Lower GI bleed Rectal bleed Anemia Stable angina Essential hypertension CVA (cerebral vascular accident) CAD (coronary artery disease) Surgical History Status post cardiac catheterization History of cardiac cath History of adenoidectomy Hx of tonsillectomy Hx of hernia repair History of section History of cholecystectomy History of appendectomy Family History Family History Mother Cancer Father Heart attack Social History Social History Household Members: Children Housing: House Do you presently have visiting nurse or other home services: Yes Alcohol intake: never Patient Tobacco Use Status: Former Tobacco user Years Smoked: 30 +/- e-Cigarette/Vaping Use: Never Used Second Hand Smoke Exposure: No Substance Use Type: IV Drugs service: No Current occupational status: retired Current occupation: right hand dominant Physical Exam ED Vital Signs: Vital Signs - 24 hr 07/16/24 15:53 07/16/24 17:47 07/16/24 21:25 Temperature 97.7 F 97.8 F 97.9 F Pulse Rate 102 H 94 93 Respiratory Rate 18 18 16 Blood Pressure 113/56 L 114/52 L 141/64 H Pulse Oximetry 94 97 95 Oxygen Delivery Method Nasal Cannula Room Air Room Air BMI result Body Mass Index 27.4 Const Other: Alert Orientation/consciousness: patient oriented x3 Resp Effort & Inspection: normal respiratory effort Cardio Other: Normal peripheral perfusion GI Other: Abdomen is soft, nondistended, obese, mild generalized tenderness to palpation, no guarding, no fecal impaction Skin Other: Warm dry no rash Neuro General: patient oriented x3, no focal motor deficits and CN's II-XI intact bilaterally Psych Other: Cooperative Medical Decision Making Medical Decision Making MDM Narrative: 78-year-old female with a history of osteoporosis, impingement syndrome of the right shoulder on chronic opiate therapy, hypertension, hyperlipidemia, diabetes, coronary artery disease s/p drug-eluting stents in proximal and mid LAD and proximal RCA, multiple MIs, multiple CVAs, multiple TIAs with subsequent gait instability who uses a walker/wheelchair at baseline, seizure disorder, hypothyroidism, GERD presents with the abdominal pain x4 days. The abdominal pain is diffuse, with the associated constipation, last bowel movement 4 days ago. Patient states she developed nausea vomiting today. Patient denies abdominal distention or inability to pass flatus. Patient states she attempted to administer an enema without relief from symptoms. Problem: Vascular disease, gait instability, chronic opiate therapy History: Per patient I have considered the following differential diagnoses: Constipation, fecal impaction, obstipation, bowel obstruction, narcotic bowel syndrome Plan: Patient had screening labs and a KUB obtained from triage, there was no obstructive pattern noted, she is not impacted with stool. She needs to go on a bowel regimen given her chronic opiate therapy. We will send with home care instructions. I have independently reviewed the following tests: Labs: No leukocytosis, not anemic, no electrolyte abnormality KUB: Comparison: None Findings: No pneumoperitoneum or pneumatosis. No abnormal calcifications. No acute fractures. IMPRESSION: The bowel gas pattern is within normal limits This document has been electronically signed by: Priscilla Shen MD on 07/16/2024 19:07:04 Lab Data 07/16/24 19:06 07/16/24 19:06 Labs: Lab Results 07/16/24 Range/Units 19:06 WBC 10.1 (4.8-10.8) X10*3/uL RBC 4.68 (4.20-5.50) X10*6/uL Hgb 13.3 (12.0-16.0) g/dl Hct 40.7 (37.0-47.0) % MCV 87.0 (80.0-98.0) fL MCH 28.4 (27.0-33.0) pg MCHC 32.7 (31.0-35.0) g/dl RDW 15.0 (11.0-16.0) % Plt Count 272 (160-400) X10*3/uL MPV 9.9 (9.4-12.3) fL Immature Gran % (Auto) 0.3 (0.0-0.4) % Neut % (Auto) 74.5 H (45-73) % Lymph % (Auto) 16.3 L (20-40) % [place] % (Auto) 8.0 (2-11) % Eos % (Auto) 0.7 (0-4) % Baso % (Auto) 0.2 (0-2) % Lymph # (Auto) 1.7 (1.2-4.9) X10*3/uL [place] # (Auto) 0.8 (0.1-1.2) X10*3/uL Eos # (Auto) 0.1 (0.0-0.4) X10*3/uL Baso # (Auto) 0.0 (0.0-0.2) X10*3/uL Abs Immat Gran (auto) 0.03 (0.00-0.03) X10*3/uL Absolute Neuts (auto) 7.6 (2.0-8.3) x10*3/uL Absolute Nucleated RBC 0.000 (0.0-0.012) X10*3/uL Nucleated RBC % (auto) 0.0 (0.0-0.2) /100WBC Sodium 139 (135-145) mmol/L Potassium 4.3 (3.3-5.1) mmol/L Chloride 102 (96-108) mmol/L Carbon Dioxide 25 (22-29) mmol/L Anion Gap 16 (12-20) BUN 18 H (9-16) mg/dL Creatinine 0.73 (0.5-1.4) mg/dL Estim Creat Clear Calc 58.3 Estimated GFR > 60 Random Glucose 124 H (60-115) mg/dL Calcium 9.1 (8.4-10.2) mg/dL Magnesium 2.2 (1.6-2.6) mg/dL Total Bilirubin 0.4 (0.0-1.0) mg/dL Direct Bilirubin 0.2 (0.0-0.5) mg/dL AST 37 H (5-31) U/L ALT 27 (0-31) U/L Alkaline Phosphatase 136 H (39-117) U/L Total Protein 7.5 (6.5-8.0) g/dL Albumin 3.9 (3.5-5.0) g/dL Lipase 8 (8-78) U/L Influenza Type A (PCR) NEGATIVE (Negative) Influenza Type B (PCR) NEGATIVE (Negative) RSV RNA Qual (PCR) NEGATIVE (Negative) SARS-CoV-2 RNA (RT-PCR) NEGATIVE (Negative) Discharge Plan Discharge Clinical Impression: Constipation Patient Disposition: Home, Self-Care Instructions: Constipation (ED) Additional Instructions: You were found to be constipated, all of your screening labs were normal. See home care instructions. Given the chronic use of oxycodone for your chronic pain, you need to stay on a bowel regimen indefinitely to help prevent recurrence of constipation. For your current stool burden, take [id number] Colace, this is a stool softener, twice a day. In addition start taking [id number] MiraLax, 2 to 3 times a day, until you begin having multiple large volume bowel movements. Once you clear your stool burden, take the Colace daily, and the MiraLax every other day. You can modify this bowel regimen accordingly to your needs. Follow up with your primary care provider. Prescriptions: No Action clopidogrel 75 mg tablet 75 mg PO DAILY Qty: 90 3RF lidocaine HCl 2 % cream 1 appl topical .at bedtime 28 Days Qty: 118 0RF amlodipine 2.5 mg tablet 2.5 mg PO DAILY 90 Days Qty: 90 3RF pantoprazole 40 mg tablet,delayed release (DR/EC) 40 mg PO BID Qty: 60 3RF Rx Instructions: Please discontinue the once daily dosing and replace with this new script. ascorbic acid (vitamin C) 500 mg Tablet 500 mg PO DAILY betamethasone valerate 0.1 % Cream 1 appl TOPICAL DAILY levetiracetam [Keppra] 750 mg Tablet 750 mg PO BID loperamide 2 mg Tablet 2 mg PO QID PRN (Reason: LOOSE STOOLS) Rx Instructions: TAKE 1 TABLET AFTER 1ST LOOSE STOOL AND 1 TAB 2 MG AFTER EACH NEXT BOWEL MOVEMENT, DO NOT EXCEED 16 MG IN 24 HRS Systane (PF) 0.4-0.3 % Dropperette 1 drp OPHTHALMIC (EYE) BID simethicone 125 mg Tablet,Chewable 125 mg PO TID PRN (Reason: GAS/BLOATING) oxycodone-acetaminophen 5-325 mg tablet 1 tab PO BID PRN (Reason: Pain (Scale Score 7-10)) latanoprost 0.005 % drops 1 drp ophthalmic (eye) BEDTIME albuterol sulfate 90 mcg/actuation HFA aerosol inhaler 2 puff inhalation Q4H PRN (Reason: Respiratory Distress) metformin 500 mg tablet 500 mg PO BID acetaminophen [Tylenol 8 Hour] 650 mg tablet extended release 1,300 mg PO Q8H PRN (Reason: Pain) magnesium 250 mg tablet 500 mg PO DAILY milk thistle 500 mg capsule 500 mg PO BID Rx Instructions: give with meal/snack zinc 50 mg tablet 50 mg PO DAILY atorvastatin 40 mg tablet 40 mg PO DAILY Myrbetriq 50 mg tablet extended release 24 hr 50 mg PO DAILY levothyroxine 112 mcg tablet 112 mcg PO DAILY cyanocobalamin (vitamin B-12) 1,000 mcg tablet 1,000 mcg PO DAILY biotin 5 mg capsule 5 mg PO DAILY alendronate 70 mg tablet 70 mg PO QWEEK trospium 60 mg capsule,extended release 24hr 60 mg PO DAILY cholecalciferol (vitamin D3) 50 mcg (2,000 unit) tablet 50 mcg PO DAILY melatonin 5 mg tablet PO Interventions: ED Discharge Assessment Last Done: 07/16/24 21:25 Discharge Date/Time: 07/16/24 21:26 Print Language: Serbian
[2024-07-16 21:25] VITALS: BP 141/64; PULSE 93; RESP 16; TEMP 36.6; O2SAT 95
== END 2024-07-16 21:26 | disposition home or self-care (01) ==
PROVIDERS: Physician Assistant Medical; Emergency Provider Emergency Medicine; PCP Internal Medicine Geriatric Medicine
DX: K59.00 Constipation, unspecified (principal); R26.89 Other abnormalities of gait and mobility; I10 Essential (primary) hypertension; J44.9 Chronic obstructive pulmonary disease, unspecified; M75.41 Impingement syndrome of right shoulder; Z79.891 Long term (current) use of opiate analgesic; Z87.891 Personal history of nicotine dependence; Z03.818 Encounter for observation for suspected exposure to other biological agents ruled out
CPT/HCPCS: 0241U; 74018; 80048; 80076; 83690; 83735; 85025; 99283; 99284

== ENCOUNTER → 2024-07-16 18:29 | Outpatient (BNV) | payer MEDICARE, SELFPAY | PROVIDERS: Emergency Provider Emergency Medicine; PCP Internal Medicine Geriatric Medicine; Visit Provider Student in an Organized Health Care Education/Training Program | DX: R10.9 Unspecified abdominal pain (principal) | CPT/HCPCS: 74018 ==

== ENCOUNTER 2024-07-17 12:59 | Outpatient (AMB) | payer MEDICARE, SELFPAY ==
--- NOTE | 2024-07-17 13:01 | MHC.OFFVIS ---
Vital Signs 07/17/24 13:02 Weight 148 lb BP 98/58 L Blood Pressure Location Lt brachial Position Sitting Pulse 92 Pulse Source Pulse Oximeter Pulse Oximetry (%) 95 Oxygen Delivery Method Room Air Intake Visit Reasons: Dyspnea Allergies gluten Allergy (Verified 07/17/24 13:07) Unknown scallops Allergy (Verified 07/17/24 13:07) Unknown Medication List - Last Reconciled 07/17/24 by Merna Magdaleno, IRIS acetaminophen ER (Tylenol 8 Hour) 1,300 mg PO Q8H PRN albuterol sulfate 90 mcg/actuation 2 puffs inhalation Q4H PRN alendronate 70 mg PO QWEEK amlodipine 2.5 mg PO DAILY 90 days ascorbic acid (vitamin C) 500 mg PO DAILY atorvastatin 40 mg PO DAILY betamethasone valerate 0.1% 1 appl topical DAILY biotin 5 mg PO DAILY cholecalciferol (vitamin D3) 50 mcg PO DAILY clopidogrel 75 mg PO DAILY cyanocobalamin (vitamin B-12) 1,000 mcg PO DAILY latanoprost 0.005% 1 drp ophthalmic (eye) BEDTIME levetiracetam (Keppra) 750 mg PO BID levothyroxine 112 mcg PO DAILY lidocaine HCl 2% 1 appl topical .at bedtime 4 weeks loperamide 2 mg PO QID PRN magnesium 500 mg PO DAILY melatonin mg PO metformin 500 mg PO BID milk thistle 500 mg PO BID mirabegron ER (Myrbetriq) 50 mg PO DAILY oxycodone-acetaminophen 5-325 mg 1 tab PO BID PRN pantoprazole 40 mg PO BID peg 400-propylene glycol (PF) 0.4-0.3 % (Systane (PF)) 1 drp ophthalmic (eye) BID simethicone 125 mg PO TID PRN trospium ER 60 mg PO DAILY zinc 50 mg PO DAILY HPI HPI Dyspnea: Details: Celeste is a pleasant 78 year old female, former smoker, quit 20 years ago with 40+ pyh with underlying HTN, stable angina, CAD, seizures, h/o CVA x 3 and h/o VT x 3 s/p 3 stents. She is able to ambulate however uses a wheelchair for long distances and is accompanied by her son today. She was referred by cardiology for pulmonary evaluation for progressively worsening dyspnea. She reports dyspnea occurs on exertion, occasional dry cough and intermittent wheezing/chest tightness. Symptoms tend to worsen at night, in which she uses albuterol MDI with good effect. She denies BLE edema, orthopnea or chest pain. She reports prior dx of asthma as adult, never requiring intubation. She recently underwent PFT, results below. She denies recent chest imaging. She denies any occupational exposures. She reports two daughters and son with asthma. PENDING SALE TO [facility] Medical History (Updated 07/17/24 @ 15:08 by Maria Esther Blum NP) Osteoporosis Lower GI bleed Rectal bleed Anemia Stable angina Essential hypertension CVA (cerebral vascular accident) CAD (coronary artery disease) Surgical History Status post cardiac catheterization History of cardiac cath History of adenoidectomy Hx of tonsillectomy Hx of hernia repair History of section History of cholecystectomy History of appendectomy Family History Mother Cancer Father Heart attack Social History Household Members: Children Housing: House Do you presently have visiting nurse or other home services: Yes Alcohol intake: never Patient Tobacco Use Status: Former Tobacco user Years Smoked: 30 +/- e-Cigarette/Vaping Use: Never Used Second Hand Smoke Exposure: No Substance Use Type: IV Drugs service: No Current occupational status: retired Current occupation: right hand dominant Review of Systems Const Denies chills, Denies excessive sweating, Denies fever(s), Denies headache(s) and Denies night sweats Eyes Denies dry eyes, Denies irritation and Denies itchy eyes ENT Reports Normal hearing present, Denies headache(s), Denies nasal discharge, Denies post nasal drip and Denies sore throat Card Denies chest pain, Denies chest pain at rest, Denies chest pain with activity, Denies claudication, Denies leg edema, Denies orthopnea and Denies paroxysmal nocturnal dyspnea Resp Denies chest congestion, Denies excessive phlegm production, Denies pain on inspiration, Denies pain with cough and Denies stridor Musc Denies myalgias Neuro Reports Normal hearing present and Denies headache(s) Endo Denies excessive sweating Miguel/Lymph Denies lymphadenopathy Aller/Immun Denies itchy eyes and Denies seasonal rhinorrhea Physical Exam Vital Signs: Last Vital Signs Pulse 92 07/17/24 13:02 BP 98/58 L 07/17/24 13:02 Pulse Ox 95 07/17/24 13:02 Oxygen Delivery Method Room Air 07/17/24 13:02 Const General: cooperative, healthy appearing, comfortable, no acute distress, well developed and alert Orientation/consciousness: patient oriented x3 Limitations: no limitations HEENT Head: Yes normal to inspection, Yes normocephalic and Yes atraumatic Ears: hearing grossly normal bilaterally and external ears normal Eyes General: appearance normal, both eyes and all related structures Eyelids: Yes eyelids normal Sclerae: sclerae normal EOM: EOMs intact bilaterally Neck Neck: Yes normal visual inspection and Yes no lymphadenopathy Lymphatic: no lymphadenopathy noted Chest Chest palpation & inspection: normal inspection of the chest Resp Effort & Inspection: normal respiratory effort, able to speak in complete sentences, no audible wheezes, no cough, no stridor, not tachypneic, no tripod positioning and no use of accessory muscles Auscultation: clear to auscultation bilaterally Cardio Jugular venous distension: no JVD Rate: regular rate Rhythm: regular rhythm Skin Other: warm, dry General skin exam: no rashes or lesions noted Neuro General: patient oriented x3 Cranial nerves: Yes Normal hearing present Cognition (Neuro): normal cognition Gait exam (Neuro): Normal gait present Extrem General: Yes normal to inspection, Yes capillary refill normal, Yes no clubbing, cyanosis or edema and Yes no pedal edema Psych Appearance: grossly normal and well kempt Speech and movement: Normal speech and movement present and Clear speech present Affect: normal affect Attitude: cooperative Thought process: Normal thought process present Thought content: Normal thought content present Insight: Good insight present (Psych) Judgement: Good judgement present (Psych) Results Reviewed Results Reviewed: [address] [address] [address] Scan Report Signed Patient: Celeste Abad MR#: [id number] : 1945 Acct:[id number] Age/Sex: 77 / F ADM Date: 11/19/22 Loc: [facility] [id number]: Roya Reis MD Ordering Physician: Roya Reis MD Date of Service: 11/19/22 Procedure(s): CT abdomen pelvis w IV con Accession Number(s): [id number] cc: Roya Reis MD~ EXAMINATION: CT ABDOMEN AND PELVIS WITH CONTRAST CLINICAL INFORMATION: Gastrointestinal bleed. Evaluate for any masses. COMPARISON: Renal ultrasound from 04/23/2021. TECHNIQUE: Multidetector volumetric images were obtained from the superior aspect of the liver through the pubic symphysis following administration 85 mL of Omnipaque 350 intravenous contrast. Sagittal and coronal reformatted images were obtained on the technologist's workstation. Oral contrast: No This CT examination was performed using dose optimization techniques as appropriate, variously including the following: *Automated exposure control *Adjustment of mA and/or kV according to patient size (this includes techniques or standardized protocols for targeted exams where dose is matched to indication/reason for exam; i.e. extremities or head) *Use of iterative reconstruction technique DLP: 432 mGy-cm FINDINGS: LUNG BASES: Scattered cystic lucencies in the visualized bases are consistent with changes of centrilobular emphysema. Scattered opacities of mild atelectasis in lower lobes. No pleural effusion. LIVER: The liver has normal size, shape, and attenuation. No evidence of liver mass. GALLBLADDER AND BILIARY TREE: Gallbladder is surgically absent. Common bile duct measures up to 0.9 cm diameter and there are no stones within the mildly dilated duct. The ductal dilatation is probably chronic. PANCREAS: Mildly atrophied. No edema, pancreatic ductal dilatation or mass. SPLEEN: Normal. ADRENAL GLANDS: Normal. KIDNEYS AND URETERS: Kidneys have lobulated contour, left more so than right, and findings include chronic atrophy of cortex of the posterior left upper pole. Also, there are somewhat wedge-shaped areas of chronic focal cortical atrophy of posterior aspect of the mid and upper pole of the right kidney. Punctate calyceal stone is present in the posterior left upper pole. 0.4 cm calyceal stone is present in the posterior left interpolar region. The ureters are unremarkable. No ureteral stones or hydroureteronephrosis. BLADDER: Normal. No calculi or wall thickening. BOWEL AND PERITONEUM: Large hiatal hernia. No dilated bowel loops. No focal bowel wall thickening. No masses are seen along the gastrointestinal tract. Multiple diverticula of the descending and sigmoid colon without evidence of diverticulitis. The rectum is unremarkable. There are no inflammatory changes in the perirectal or perianal soft tissues. ABDOMINAL WALL: No abdominal wall hernia, mass or fluid collection. VASCULATURE: Atherosclerosis of the abdominal aorta and iliac arteries without aneurysm. Inferior vena cava is normal. LYMPH NODES: No pathologic sized lymph nodes in the abdomen or pelvis. No inguinal lymphadenopathy. PELVIC VISCERA: Vaginal pessary in place. Uterus is unremarkable. No adnexal mass. No pelvic free fluid. MUSCULOSKELETAL: No acute or suspicious osseous abnormality. CT/CT abdomen pelvis w IV con IMPRESSION: * No specific source of gastrointestinal bleeding is identified. Diverticula of the descending and sigmoid colon without evidence of diverticulitis. * No evidence of abdominal or pelvic mass. No lymphadenopathy. * Common bile duct is mildly dilated, status post cholecystectomy. * Small stones of the left kidney. No hydronephrosis. There are regions of chronic cortical atrophy of each kidney, possibly sequela of remote pyelonephritis. No acute renal abnormality. Dictated By: Remington Arreola MD Signed By: <Electronically signed by Remington Arreola MD in OV> 11/19/22 1502 DD/ 1353 TD/TT: Business Continuity Global Director: PD Assessment & Plan Assessment & Plan (1) COPD (chronic obstructive pulmonary disease): Code(s): J44.9 - Chronic obstructive pulmonary disease, unspecified Category: Medical (2) Emphysema of lung: Code(s): J43.9 - Emphysema, unspecified Category: Medical (3) Personal history of tobacco use: Code(s): Z87.891 - Personal history of nicotine dependence Category: Social Hx Plan Celeste presents for pulmonary evaluation for worsening dyspnea. Reviewed PFT which revealed borderline obstructive ventilatory defect with no bronchodilator response. Patient unable to perform lung volumes maneuvers. Decreased diffusion capacity suggests emphysema. Prior abdominal CT revealed emphysema of bilateral lung bases, will send for dedicated chest CT to assess extent of emphysema. Will empirically start patient on Breo. Discussed importance of good oral hygiene to prevent thrush. All questions were answered and patient is in agreement of plan. Will follow up in 6-8 weeks or sooner if needed. Orders: Orders CT chest wo IV con Today J43.9 - Emphysema, unspecified, J44.9 - Chronic obstructive pulmonary disease, unspecified Medications: New fluticasone furoate-vilanterol 100-25 mcg/dose (Breo Ellipta) 1 inh inhalation DAILY 60 ea 3RF Coding Level of Care Code New Pt Level 4 (37959) Diagnoses COPD (chronic obstructive pulmonary disease) J44.9 Emphysema of lung J43.9 Personal history of tobacco use Z87.891
[2024-07-17 13:02] VITALS: BP 98/58; PULSE 92; O2SAT 95
--- OUTSIDE RECORDS SUMMARY | 2024-07-17 15:06 | XMS_ITS | Encounter Summary ---
Author Organization [employer] Address [address] [place] [address] [address] [place] [address] Care Team Providers Care Precision Agriculture Specialist Name Role Phone Name, Eddie GILMORE Primary Care Provider [phone] Reason for Visit * Reason Comments Med Refill Encounter Details Date Type Department Care Team (Late st Contact Info) Description 07/17/2024 Refill [facility] [address] [place], [place] [phone] Name, MD Eddie [address] [place] [address] Social History Tobacco Use Types Packs/Day Years [...] Description 08/13/2024 9:45 AM EST Office Visit [facility] [address] [place] [address] documented as of this encounter Visit Diagnoses Not on filedocumented in this encounter Additional Health Concerns Assessment Noted Time PHQ-9 Depression Total Score: 9 05/10/20 24 11:56 AM EST documented as of this encounter Care Teams Precision Agriculture Specialist Relationship Specialty Start Date End Date Name, MD Eddie [address] [place] [address] PCP - General Family Medicine 09/16/15 Jerica Sim 07/01/24 documented as of this encounter
--- OUTSIDE RECORDS SUMMARY | 2024-07-17 15:06 | XMS_ITS | Encounter Summary ---
Author Organization [employer] Address [address] [place] [address] [address] [place] [address] Care Team Providers Care Ergonomic Specialist Name Role Phone Name, Eddie GILMORE Primary Care Provider [phone] Reason for Visit * Reason Comments Med Refill Encounter Details Date Type Department Care Team (Late st Contact Info) Description 06/18/2023 Refill [facility] [address] [place], [place] [phone] Name, MD Eddie [address] [place], [place] [phone] Chronic pain syndrome Social History Tobacco Use [...] 08/13/2024 9:45 AM EST Office Visit [facility] [address] [place] [address] documented as of this encounter Visit Diagnoses Diagnosis Chronic pain syndrome documented in this encounter Additional Health Concerns Assessment Noted Time PHQ-9 Depression Total Score: 10 023 1:16 PM EDT documented as of this encounter Care Teams Ergonomic Specialist Relationship Specialty Start Date End Date Name, MD Eddie [address] [place] [address] PCP - General Family [facility] documented as of this encounter
--- OUTSIDE RECORDS SUMMARY | 2024-07-17 15:06 | XMS_ITS | Encounter Summary ---
Author Organization [employer] Address [address] [place] [address] 7t [place] [address] Care Team Providers Care General Doc Name Role Phone Name, Eddie GILMORE Primary Care Provider Encounter Details Date Type Department Care Team (Late st Contact Info) Description 07/16/2024 Orders Only [facility] External Provider, [facility] Social History Tobacco Use Types Packs/Day Years [...] 9:45 AM EST Office Visit [facility] MEDICINE [address] [place] [phone] documented as of this encounter Procedures Procedure Name Priority Date/Time Associated Diagnosis Comments XR KUB AND UPRIGHT 2 VIEWS Routine 07/16/2024 7:07 PM EST SARS COV2/INFLUENZA A/B AND RSV RNA QL NAAT Routine 07/16/2024 7:06 PM EST CBC WITH AUTO DIFFERENTIAL Routine 07/16/2024 7:06 PM EST MAGNESIUM Routine 07/16/2024 7:06 PM EST LIPASE Routine 07/16/2024 7:06 PM EST HEPATIC FUNCTION PANEL Routine 07/16/2024 7:06 PM EST BASIC METABOLIC PANEL Routine 07/16/2024 7:06 PM EST documented in this encounter Results * XR KUB and Upright 2 Views (07/16/2024 7:07 PM EST) Anatomical Region Laterality Modality Radiographic Tanya ging 07/16/2024 7:07 PM EST Narrative 07/16/2024 7:07 PM EST ? [facility] ?[address] ?[place] [address] ?XRay Report ? Signed ? Patient: Jenniffer,Celeste ?MR#: [id number] ?? 4 ? : 1945 ?Acct:[id number] ? Age/Sex: 78 / F ?ADM Date: 07/16/24 ? Loc: HO.ED ? Attending Dr: ? Ordering Physician: Rhea Ken ?? Date of Service: 07/16/24 ?? Procedure(s): XR KUB ?? Accession Number(s): [id number] ? cc: Rhea Ken; Name,Eddie GILMORE ? CLINICAL HISTORY: ABD pain ? 1 view abdomen ? Comparison: None ? Findings: ?? No pneumoperitoneum or pneumatosis. ?? No abnormal calcifications. ?? No acute fractures. ? IMPRESSION: ?? The bowel gas pattern is within normal limits ? This document has been electronically signed by: Priscilla Shen MD on ?? 07/16/2024 19:07:04 ? Dictated By: ?Priscilla Shen MD ? Signed By: ?<Electronically signed by Priscilla Shen MD in OV> ?07/16/24 1907 ? DD/ 06 ? TD/TT: 07/16/241906 ? Technology Education Teacher: ? Procedure Note Enejeanieter, Image - 07/16/[address] [address] XRay Report Signed Patient: Ventura Abad#: [id number] 4 : 1945cct:[id number] Age/Sex: 78 / FADM Date: 07/16/24 Loc: HO.ED Attending Dr: Ordering Physician: Rhea Ken Date of Service: 07/16/24 Procedure(s): XR KUB Accession Number(s): [id number] cc: hRea Ken; Name,Eddie GILMORE CLINICAL HISTORY: ABD pain 1 view abdomen Comparison: None Findings: No pneumoperitoneum or pneumatosis. No abnormal calcifications. No acute fractures. IMPRESSION: The bowel gas pattern is within normal limits This document has been electronically signed by: Priscilla Shen MD on 07/16/2024 19:07:04 Dictated By: Priscilla Shen MD Signed By: <Electronically signed by Priscilla Shen MD in OV> 07/16/241906 DD/ 06 TD/TT: 07/16/241906 Technology Education Teacher: [facility] External Provider IMG XR PROCEDURES Final Result * SARS-CoV-2 RNA, Influenza A/B, and RSV RNA, Ql NAAT (07/16/2024 7:06 PM EST) Influenza A PCR NEGATIVE Negative [facility] Influenza B PCR NEGATIVE Negative [facility] Resp Syncy Virus RNA Qual PCR NEGATIVE Negative [facility] SARS COV2 PCR NEGATIVE Negative [facility] Comment:All test results mus t be correlated with clinical findings.Negative results do not preclude SARS-CoV2, influenza Avirus, influenza B virus and/or RSV infectionand should not be used as the sole basis for treatment orother patient management decisions. Negative results must becombined with clinical observations, patient history, andepidemiological information.This test has not been evaluated for monitoring treatment ofinfection.This test has been authorized by the FDA under an EmergencyUse Authorization (EUA) for use by authorized laboratories.Testing performed on the [employer] GeneXpert utilizingreal-time RT-PCR.All SARS CoV2 and positive influenza A/B results arereported to [facility]. 07/16/2024 7:06 PM EST 07/16/2024 7:11 PM EST Generic External Data Provider LAB MICROBIOLOGY - GENERAL ORDERABLES Final Result Performing Organization Address [facility] Co de Phone Number [facility] [address] [place] [phone] * Lipase (07/16/2024 7:06 PM EST) Lipase 8 8 - 78 U/L [facility] 07/16/2024 7:06 PM EST 07/16/2024 7:11 PM EST Generic External Data Provider LAB BLOOD ORDERAB LES Final Result Performing Organization Address [facility] Co de Phone Number [facility] [address] [place] [phone] * Magnesium (07/16/2024 7:06 PM EST) Magnesium 2.2 1.6 - 2.6 mg/dL [facility] 07/16/2024 7:06 PM EST 07/16/2024 7:11 PM EST us Generic External Data Provider LAB BLOOD ORDERAB LES Final Result [facility] [address] [place] [phone] [phone] * (ABNORMAL) Basic Metabolic Panel (07/16/2024 7:06 PM EST) Sodium 139 135 - 145 mmol/L [facility] Potassium 4.3 3.3 - 5.1 mmol/L [facility] Chloride 102 96 - 108 mmol/L [facility] Carbon Dioxide 25 22 - 29 mmol/L [facility] Anion Gap 16 12 - 20 [facility] Urea Nitrogen (BUN) 18(H) 9 - 16 mg/dL [facility] Creatinine, Serum 0.73 0.5 - 1.4 mg/dL [facility] Creatinine Clr Calc Pharmacy 58.3 [facility] Comment:Provided height and weight: 157.48 cm,68.039 kg.eGFR (calculated from the MDRD study equation) and eCrCl(calculated from the Cockcroft-Gault equation) are based ondifferent parameters and may not yield comparable results.If eCrCl result is absurd, please check patient'sheight/weight. Estimated Glomerular Filt Rate >60 [facility] Comment:Chronic Kidney Disea se: Estimated GFR < 60 mL/min/1.40u5Mklocx Kidney Disease: Estimated GFR < 15 mL/min/1.73m2 Glucose 124(H) 60 - 115 mg/dL [facility] Calcium 9.1 8.4 - 10.2 mg/dL [facility] 07/16/2024 7:06 PM EST 07/16/2024 7:11 PM EST Generic External Data Provider LAB BLOOD ORDERAB LES Final Result Performing Organization Address [facility] Co de Phone Number [facility] [address] [place] [phone] * (ABNORMAL) Hepatic Function Panel (07/16/2024 7:06 PM EST) [facility] Bilirubin, Total 0.4 0.0 - 1.0 mg/dL [facility] Bilirubin, Direct 0.2 0.0 - 0.5 mg/dL [facility] Aspartate Amino Transferase 37(H) 5 - 31 U/L [facility] Alanine Aminotransferase 27 0 - 31 U/L [facility] Total Protein 7.5 6.5 - 8.0 g/dL [facility] Albumin Level 3.9 3.5 - 5.0 g/dL [facility] Alkaline Phosphatase 136(H) 39 - 117 U/L [facility] 07/16/2024 7:06 PM EST 07/16/2024 7:11 PM EST Generic External Data Provider LAB BLOOD ORDERAB LES Final Result Performing Organization Address [facility] de Phone Number [facility] [address] [place] [phone] * (ABNORMAL) CBC auto differential (07/16/2024 7:06 PM EST) [facility] Signature White Blood Count 10.1 4.8 - 10.8 X10*3/uL [facility] Red Blood Count 4.68 4.20 - 5.50 X10*6/uL [facility] Hemoglobin 13.3 12.0 - 16.0 g/dl [facility] Hematocrit 40.7 37.0 - 47.0 % [facility] Mean Corpuscular Volume 87.0 80.0 - 98.0 fL [facility] Mean Corpuscular Hemoglobin 28.4 27.0 - 33.0 pg [facility] Mean Corpuscular HGB Conc 32.7 31.0 - 35.0 g/dl [facility] Red Cell Distribution Width 15.0 11.0 - 16.0 % [facility] Platelet Count 272 160 - 400 X10*3/uL [facility] Mean Platelet Volume 9.9 9.4 - 12.3 fL [facility] Neutrophils Percent Auto 74.5(H) 45 - 73 % [facility] Imm Gran Pct Auto 0.3 0.0 - 0.4 % [facility] Lymphocytes Percent Auto 16.3(L) 20 - 40 % [facility] Monocytes Percent Auto 8.0 2 - 11 % [facility] Eosinophils Percent Auto 0.7 0 - 4 % [facility] Basophils Percent Auto 0.2 0 - 2 % [facility] NRBC Pct Auto 0.0 0.0 - 0.2 /100WBC [facility] Neutrophils Absolute Auto 7.6 2.0 - 8.3 x10*3/uL [facility] Imm Gran Abs Auto 0.03 0.00 - 0.03 X10*3/uL [facility] Lymphocytes Absolute Auto 1.7 1.2 - 4.9 X10*3/uL [facility] Monocytes Absolute Auto 0.8 0.1 - 1.2 X10*3/uL [facility] Eosinophils Absolute Auto 0.1 0.0 - 0.4 X10*3/uL [facility] Basophils Absolute Auto 0.0 0.0 - 0.2 X10*3/uL [facility] NRBC Abs Auto 0.000 0.0 - 0.012 X10*3/uL [facility] 07/16/2024 7:06 PM EST 07/16/2024 7:11 PM EST us Generic External Data Provider LAB BLOOD ORDERAB LES Final Result [facility] [address] [place] [phone] documented in this encounter Visit Diagnoses Not on filedocumented in this encounter Additional Health Concerns Assessment Noted Time PHQ-9 Depression Total Score: 9 05/10/20 24 11:56 AM EST documented as of this encounter Care Teams General Doc Relationship Specialty Start Date End Date Name, MD Eddie [address] [facility] [place] [address] PCP - General Family Medicine 09/16/15 [place] [facility] 07/01/24 documented as of this encounter
--- OUTSIDE RECORDS SUMMARY | 2024-07-17 15:06 | XMS_ITS | Encounter Summary ---
Author Organization [employer] Address [address] [place] [address] 7 [place] [address] Care Team Providers Care Suction Roller Name Role Phone Name, Eddie GILMORE Primary Care Provider [phone] Reason for Visit * Reason Comments Med Refill Encounter Details Date Type Department Care Team (Late Contact Info) Description 12/01/2022 Refill [facility] MEDICINE [address] [place], [place] [phone] Name, MD Eddie [address] [place] [address] Controlled type 2 diabetes mellitus with complication, without long-term current use of insulin ([facility]) Social History Tobacco Use Types Packs/Day Years [...] Visit [facility] MEDICINE [address] [facility] [place] [address] documented as of this encounter Visit Diagnoses Diagnosis Controlled type 2 diabetes mellitus with complication, without long-term current use of insulin ([facility]) documented in this encounter Additional Health Concerns Assessment Noted Time PHQ-9 Depression Total Score: 10 11/28/ 023 1:16 PM EDT documented as of this encounter Care Teams Suction Roller Relationship Specialty Start Date End Date Name, MD Eddie [address] [facility] [place] [address] PCP - General Family Medicine 09/16/15 [place] [facility] 07/01/24 documented as of this encounter
--- OUTSIDE RECORDS SUMMARY | 2024-07-17 15:06 | XMS_ITS | Encounter Summary ---
Author Organization [employer] Address [address] [place] [address] 7 [place] [address] Care Team Providers Care Custom Bike Builder Name Role Phone Name, Eddie GILMORE Primary Care Provider [phone] Reason for Visit * Reason Onset Date Comments Results 05/08/2023 Encounter Details Date Type Department Care Team ([facility] st Contact Info) Description 05/08/2023 Telephone [facility] MEDICINE [address], [place] [phone] Name, MD Eddie [address] [place] [address] Results Social History Tobacco Use Types Packs/Day [...] On 06/26/2023. Pt. Verbally agreed and understood. [facility] hours are reviewed. * Telephone Encounter - Camilo Limon - 05/08/2023 2:22 PM EST Tc from pt requesting to speak directly to PCP, States they were advised to contact GI appt to discuss lab results however GI provider is currently on leave. Please contact at [phone] documented in this encounter Plan of Treatment Upcoming Encounters Date Type Department Care Team (Late st Contact Info) Description 08/13/2024 9:45 AM EST Office Visit [facility] MEDICINE [address] [place] [address] documented as of this encounter Visit Diagnoses Not on filedocumented in this encounter Additional Health Concerns Assessment Noted Time PHQ-9 Depression Total Score: 10 023 1:16 PM EDT documented as of this encounter Care Teams Custom Bike Builder Relationship Specialty Start Date End Date Name, MD Eddie [address] [place] [address] PCP - General Family Medicine 09/16/15 [place] [facility] 07/01/24 documented as of this encounter
--- OUTSIDE RECORDS SUMMARY | 2024-07-17 15:06 | XMS_ITS | Encounter Summary ---
Author Organization [employer] Address [address] [facility] 7t [place] [address] Care Team Providers Care Turret Lathe Tender Name Role Phone Name, Eddie GILMORE Primary Care Provider [phone] Encounter Details Date Type Department Care Team ([facility] st Contact Info) Description 07/02/2024 Telephone [facility] MEDICINE [address] [place], [place] [phone] Name, MD Eddie [address] [place] [address] Social History Tobacco Use Types Packs/Day Years [...] Description 08/13/2024 9:45 AM EST Office Visit [facility] MEDICINE [address] [place] [address] documented as of this encounter Visit Diagnoses Not on filedocumented in this encounter Additional Health Concerns Assessment Noted Time PHQ-9 Depression Total Score: 9 05/10/20 24 11:56 AM EST documented as of this encounter Care Teams Turret Lathe Tender Relationship Specialty Start Date End Date Name, MD Eddie [address] [place] [address] PCP - General Family Medicine 09/16/15 [place] [facility] 07/01/24 documented as of this encounter
--- OUTSIDE RECORDS SUMMARY | 2024-07-17 15:06 | XMS_ITS | Encounter Summary ---
Author Organization [employer] Address [address] [place] [address] [place] [address] Care Team Providers Care Sales And Marketing Coordinator Name Role Phone Name, Eddie GILMORE Primary Care Provider [phone] Reason for Visit * Reason Onset Date Comments Hospital Follow-up 11/10/2022 Encounter Details Date Type Department Care Team (Late st Contact Info) Description 11/10/2022 Refill [facility] MEDICINE [address] [place], [place] [phone] Name, MD Eddie [address] [place] [address] Social History Tobacco Use Types Packs/Day Years [...] Jackman Sent: 11/21/2022 5:23 PM EDT To: [employer] Team Nurses Hi team! Sent this pt to the ED over the weekend for Hgb 7. Got admitted and looks like recently discharged. Can you please outreach her for status check and sched HDF w/ Name? Thank you!! * Telephone Encounter - Suzette Singh RN - 11/22/2022 11:10 AM EDT T/C to [phone] to schedule HDF apt. No answer. LVM to call back on [phone]. ----- Message from Amber Roger RN sent at 11/22/2022 9:06 AM EDT ----- ----- Message ----- From: DENIS Jackman Sent: 11/21/2022 5:23 PM EDT To: [employer] Team Nurses In team! Sent this pt to the ED over the weekend for Hgb 7. Got admitted and looks like recently discharged. Can you please outreach her for status check and sched HDF w/ DrRod Name? Thank you!! documented in this encounter Plan of Treatment Upcoming Encounters Date Type Department Care Team (Late st Contact Info) Description 08/13/2024 9:45 AM EST Office Visit [facility] MEDICINE [address] [place] [address] documented as of this encounter Visit Diagnoses Not on filedocumented in this encounter Care Teams Sales And Marketing Coordinator Relationship Specialty Start Date End Date Name, MD Eddie [address] [place] [address] PCP - General Family Medicine 09/16/15 [facility] 07/01/24 documented as of this encounter
--- OUTSIDE RECORDS SUMMARY | 2024-07-17 15:06 | XMS_ITS | Encounter Summary ---
Author Organization [employer] Address [address] [place] [address] 7 [place] [address] Care Team Providers Care Getter Welder Name Role Phone Name, Eddie GILMORE Primary Care Provider Reason for Visit * Reason Onset Date Comments Medication Question 02/09/2023 Encounter Details Date Type Department Care Team ([facility] st Contact Info) Description 02/09/2023 Telephone [facility] MEDICINE [address] [place], [place] [phone] Name, MD Eddie [address] [place] [address] Medication Question Social History Tobacco Use Types [...] - 02/14/2023 3:25 PM EDT T/C to [phone] for below message from PCP, No answer. LVM to call back on [phone]. * Telephone Encounter - Suzette Singh RN - 02/14/2023 2:23 PM EDT Please advise, [facility] would like to know if PCP recommended or advised pt it was okay to take electrolyte powder. * Telephone Encounter - Camilo Limon - 02/09/2023 8:54 AM EDT Tc from [facility] requesting a call back , States pt is requesting electrolytes powder through [employer] however wants insurance to cover and would like to know if PCP recommended or advised pt it was okay to take. Please contact at [phone] if no answer please LVM documented in this encounter Plan of Treatment Upcoming Encounters Date Type Department Care Team (Late st Contact Info) Description 08/13/2024 9:45 AM EST Office Visit [facility] MEDICINE [address] [place] [address] documented as of this encounter Visit Diagnoses Not on filedocumented in this encounter Additional Health Concerns Assessment Noted Time PHQ-9 Depression Total Score: 10 023 1:16 PM EDT documented as of this encounter Care Teams Getter Welder Relationship Specialty Start Date End Date Name, MD Eddie [address] [place] [address] PCP - General Family Medicine 09/16/15 [place] [facility] 07/01/24 documented as of this encounter
--- OUTSIDE RECORDS SUMMARY | 2024-07-17 15:06 | XMS_ITS | Encounter Summary ---
Author Organization [employer] Address [address] [place] [address] 7 [place] [address] Care Team Providers Care Hotel Dining Room Cashier Name Role Phone Name, Eddie GILMORE Primary Care Provider [phone] Reason for Visit * Reason Comments Med Refill Encounter Details Date Type Department Care Team (Late st Contact Info) Description 05/08/2023 Refill [facility] MEDICINE [address] [place], [place] [phone] Name, MD Eddie [address] [place], [place] [phone] Chronic pain syndrome Social History Tobacco Use [...] Office Visit [facility] MEDICINE [address] [place] [address] documented as of this encounter Visit Diagnoses Diagnosis Chronic pain syndrome documented in this encounter Additional Health Concerns Assessment Noted Time PHQ-9 Depression Total Score: 10 023 1:16 PM EDT documented as of this encounter Care Teams Hotel Dining Room Cashier Relationship Specialty Start Date End Date Name, MD Eddie [address] [place] [address] PCP - General Family [facility] documented as of this encounter
--- OUTSIDE RECORDS SUMMARY | 2024-07-17 15:06 | XMS_ITS | Encounter Summary ---
Author Organization [employer] Address [address] [place] [address] [place] [address] Care Team Providers Care Coloring Room Man Name Role Phone Name, Eddie GILMORE Primary Care Provider [phone] Reason for Visit * Reason Comments Med Refill Encounter Details Date Type Department Care Team (Late st Contact Info) Description 02/26/2023 Refill [facility] MEDICINE [address] [place] [address] [phone] Name, MD Eddie [address] [place] [address] [phone] Chronic pain syndrome Social History Tobacco Use [...] Description 08/13/2024 9:45 AM EST Office Visit [facility] MEDICINE [address] [place] [address] [phone] documented as of this encounter Visit Diagnoses Diagnosis Chronic pain syndrome documented in this encounter Additional Health Concerns Assessment Noted Time PHQ-9 Depression Total Score: 10 023 1:16 PM EDT documented as of this encounter Care Teams Coloring Room Man Relationship Specialty Start Date End Date Name, MD Eddie [address] [facility] [place] [address] PCP - General Family Medicine 09/16/15 [place] [facility] 07/01/24 documented as of this encounter
--- OUTSIDE RECORDS SUMMARY | 2024-07-17 15:06 | XMS_ITS | Encounter Summary ---
Author Organization [employer] Address [address] [place] [address] 7 [place] [address] Care Team Providers Care Senior Actuarial Analyst Name Role Phone Name, Eddie GILMORE Primary Care Provider Reason for Visit * Reason Onset Date Comments Medication Question 09/01/2023 Encounter Details Date Type Department Care Team ([facility] st Contact Info) Description 09/01/2023 Telephone [facility] MEDICINE [address] [place], [place] [phone] Name, MD Eddie [address] [place] [address] Medication Question Social History Tobacco Use Types [...] an add on. Please contact pharmacy at [phone]. documented in this encounter Plan of Treatment Upcoming Encounters Date Type Department Care Team (Late st Contact Info) Description 08/13/2024 9:45 AM EST Office Visit [facility] MEDICINE [address] [place] [address] documented as of this encounter Visit Diagnoses Not on filedocumented in this encounter Additional Health Concerns Assessment Noted Time PHQ-9 Depression Total Score: 10 023 1:16 PM EDT documented as of this encounter Care Teams Senior Actuarial Analyst Relationship Specialty Start Date End Date Name, MD Eddie [address] [facility] [place] [address] PCP - General Family Medicine 09/16/15 [place] [facility] 07/01/24 documented as of this encounter
--- OUTSIDE RECORDS SUMMARY | 2024-07-17 15:06 | XMS_ITS | Encounter Summary ---
Author Organization [employer] Address [address] [place] [address] Care Team Providers Care Castings Drafter Name Role Phone Name, Eddie GILMORE Primary Care Provider [phone] Encounter Details Date Type Department Care Team (Late st Contact Info) Description 07/16/2024 9:45 AM EST Office Visit [facility] [address] [place] [address] Mckenzie Trent FNP [address] [place] [address] Chronic pain syndrome (Primary Dx); retirement (current) use of opiate analgesic Social History [...] as of this encounter Progress Notes * Mckenzie Trent, [employer] SELECTOR - 07/16/2024 9:45 AM EST Subjective: Celeste Abad is a 78 y.o. female w/ PMH DM2, OA, STEMI with LAD stent, CVA, seizure disorder, OAB, GERD, hypothyroidism who presents to the office for - [facility] Group visits. Initial Group visit: 04/09/24 Group Visit Number: 3 Last PCP visit: Dr. Marshall, 05/10/24 Group Confidentiality last signed: 04/09/24 Group Topic: Functional Goal Setting Chronic Pain History: Associated Diagnosis: Back pain, shoulder pain Relevant Imagin05/15/24: XR thoracic spine: Minimal multilevel degenerative disc disease. 05/15/24: XR right shoulder demonstrated small lateral subacromial spurs. No acute osseous abnormality. Current pharm tx: Percocet 5/325 TID depending on imaging results Medication: States taking medication as prescribed. Non-pharm tx: auricular acupuncture Functional Goals: sleep through the night Other substance use: Tobacco: no Marijuana: Alcohol: no Illicit substances: no Review of Systems Constitutional: Negative. Respiratory: Negative. Cardiovascular: Negative. Gastrointestinal: Negative. Musculoskeletal: Positive for arthralgias, back pain, gait problem and myalgias. Physical Exam Vitals and nursing note reviewed. Constitutional: Appearance: Normal appearance. HENT: Head: Normocephalic and atraumatic. Musculoskeletal: Comments: Seated in wheelchair Skin: General: Skin is warm and dry. Neurological: General: No focal deficit present. Mental Status: She is alert and oriented to person, place, and time. Psychiatric: Mood and Affect: Mood normal. Behavior: Behavior normal. 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 Follow up as scheduled with PCP, sooner as needed. * Estrellita Crenshaw RN - 07/16/2024 9:45 AM EST ..PARLIAMENTARY COUNSEL auto mechanic supervisor: PDMP reviewed today. Last fill date: 06/17/24 (Percocet 5-325mg tid PRN) count was (81), anticipated (80) to be remaining. .UTOX completed. Positive for (OXY), Negative for AMP, BAR, BUP, BZO, KELLEE, FTY, MDMA, MET, MOP, MTD, PCP, TCA, THC. UTOX as expected. documented in this encounter Miscellaneous Notes * Assessment & Plan Note - JENNIFER Albrecht - 07/17/2024 9:08 AM ESTAssociated Problem(s): Chronic pain syndrome - Pt attended and participated in group - Utox and pill count as expected - Continue to explore and use non-pharmacological means of pain management - Follow up in 1-2 months as desired documented in this encounter Plan of Treatment Upcoming Encounters Date Type Department Care Team (Late st Contact Info) Description 08/13/2024 9:45 AM EST Office Visit [facility] [address] [place] [address] documented as of this encounter Procedures Procedure Name Priority Date/Time Associated Diagnosis Comments POCT ADRIAN-14 URINE DRUG SCREEN Routine 07/16/2024 1:49 PM EST retirement (current) use of opiate analgesic documented in this encounter Results * POCT ADRIAN-14 Urine Drug Screen (07/16/2024 1:49 PM EST) Oxycodone Screen, Urine Positive Urine Urine specimen obtained by clean catch procedure / Unknown 07/16/2024 1:49 PM EST Mckenzie Cindymaria fernanda [employer] SELECTOR POINT OF CARE TEST ENTER/EDIT ORDERABLES Final Result documented in this encounter Visit Diagnoses Diagnosis Chronic pain syndrome- Primary superintendent 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
--- OUTSIDE RECORDS SUMMARY | 2024-07-17 15:06 | XMS_ITS | Clinical Summary ---
Author Organization [employer] Address [address] [place] [address] 7[address] [place] [address] Care Team Providers Care Retail Associate Manager Bilingual Name Role Phone Name, Eddie GILMORE Primary Care Provider [phone] Allergies Active Allergy Reactions Criticality Noted Date [...] 06/01/20 22 Active Blood Glucose Monitoring Suppl ([employer] Verio Flex System) w/Device kit USE DIRECTED [...] in the morning. 01/10/20 23 Active Lancets ([employer] Mobile[employer] Delica Plus [id number]) miscIndications :Controlled type 2 diabetes mellitus with complication, without long-term current use of insulin ([facility]) USE TO CHECK BLOOD SUGAR TWICE A DAY 100 each 5 09/15/19 24 Active glucose blood ([employer] Verio) test stripIndication s:Controlled type 2 diabetes mellitus with complication, without long-term current use of insulin ([facility]) CHECK BY FINGERSTICK TWICE DAILY 50 strip 11 10/06/19 24 Active levothyroxine (Synthroid, Levoxyl) 112 MCG [...] BY MOUTH EVERY DAY 90 tablet 1 03/25/20 24 Active pantoprazole (ProtoNix) 40 MG EC [...] AFFECTED AREAS ONCE DAILY 15 g 05/22/20 Active oxyCODONE-aceta minophen (Percocet) 5-325 MG tabletIndicatio [...] NEEDED 8.5 g 1 07/12/19 25 Active atorvastatin (Lipitor) 40 MG tablet TAKE 1 TABLET BY MOUTH EVERY MORNING 30 tablet 5 07/17/19 25 Active atorvastatin (Lipitor) 40 MG tablet TAKE 1 TABLET BY MOUTH EVERY DAY 30 tablet 5 01/26/20 24 2024 Discontinued albuterol 108 (90 Base) MCG/ACT inhaler INHALE [...] Active Problems Problem Noted Date Diagnosed Date [facility] (current) use of opiate analgesic 03/20 Overview (07/17/2024): Dx: chronic pain syndrome/back pain Rx: Percocet 5/325 every 12 hours Last PRORATE CLERK agreement:03/22/24 Tier II (visit every 3 months) Additional considerations: mobility issues, using scooter Chronic pain syndrome 03/05/2024 Assessment & Plan (07/17/2024 9:08 AM EST): - Pt attended and participated in group - Utox and pill count as expected - Continue to explore and use non-pharmacological means of pain management - Follow up in 1-2 months as desired Assessment & Plan (05/14/2024 2:23 PM EST): [...] that is chronic 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 She understands this is the chronic dose and she should take BID as needed. Asthma 06/16/2022 Atherosclerosis of coronary artery 06/16/2022 Controlled type 2 diabetes m ellitus with complication, without long-term current use of [...] Encounters Date Type Department Care Team Description 07/17/2024 Refill [facility] [address] [place] [phone] Eddie Marshall MD 07/16/2024 9:45 AM EST Office Visit [facility] [address] [place] [address] Mckenzie Trent FNP Chronic pain syndrome (Primary Dx); [facility] (current) use of opiate analgesic 07/16/2024 9:15 AM EST Office Visit [facility] [address] [place] [address] Kelly Montoya MD Chronic pain syndrome (Primary Dx) 07/16/2024 Orders Only [facility] External Provider, [facility] 07/16/2024 Travel 07/12/2024 Refill [facility] [address] [place] [address] Eddie Marshall MD 07/12/2024 Refill [facility] [address] [place] [address] Eddie Marshall MD Chronic pain syndrome 07/02/2024 Telephone [facility] [address] [place] [address] Eddie Marshall MD 06/10/2024 Telephone [facility] [address] [place] [address] Eddie Marshall MD Med Refill 06/10/2024 Refill [facility] [address] [place] [address] 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, glass blowing instructor pain syndrome 06/03/2024 Telephone [facility] [address] [place] [address] Eddie Marshall MD Medication Question 05/29/2024 Orders Only [facility] [address] [place] [address] Eddie Marshall MD 05/29/2024 Telephone [facility] [address] [place] [address] 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, RN Pt agreeable Fosamax 05/29/2024 Telephone [facility] [address] [place] [address] Eddie Marshall MD Medication Question 05/24/2024 Refill [facility] [address] [place] [address] Eddie Marshall MD Chronic pain syndrome 05/24/2024 Telephone [facility] [address] [place] [phone] Eddie Marshall MD Med Refill 05/22/2024 Refill [facility] [place] [place] [address] Jess Ring, RN 05/15/2024 Orders Only [facility] [address] [place] [phone] Eddie Marshall MD 05/14/2024 10:45 AM EST Office Visit [facility] [address] [place] [phone] Kelly Montoya MD Chronic pain syndrome (Primary Dx) 05/14/2024 9:45 AM EST Office Visit [facility] [address] [place] [phone] Latanya Hoover MD [facility] (current) use of opiate analgesic (Primary Dx); Chronic pain syndrome 05/14/2024 Travel 05/10/2024 11:30 AM EST Office Visit [address] [address] Eddie Marshall MD Controlled type 2 diabetes mellitus with complication, without long-term current use of insulin ([facility]) (Primary Dx); Chronic right shoulder pain; Midline thoracic back pain, unspecified chronicity; Menopausal osteoporosis 05/08/2024 Telephone [facility] [address] [place] [phone] Gem Hernandez MA Chart Prep 04/26/2024 Refill [facility] [address] [place] [phone] Eddie Marshall MD 04/26/2024 Refill [facility] [address] [place] [address] Eddie Marshall MD Chronic pain syndrome 04/25/2024 Orders Only GENERIC EXTERNAL DATA DEPARTMENT Provider, Generic External Data from Last 3 Months Immunizations Name Administration Dates Next Due Influenza injectable quadriv alent IIV4 with preservative 04/07/2016 Influenza, IIV3, injectable 03/23/2015,1 ,03/08/2013,04/06,05/01/2008,04/19/2007,05/10/2006 ,03/15/2005 Novel [id number], preservative-free 05/22/2009 Pneumococcal Polysaccharide PPSV23 07/11/2013, TD [...] Description 08/13/2024 9:45 AM EST Office Visit [facility] [address] [place] [phone] Health Maintenance Due Date Last Done Comments Zoster Vaccines (1 of 2) 1996 Pneumococcal Vaccine: 50+ Years (2 of 2 - PCV) 07/11/2014 [...] 01/15/2025 01/16/2024, 09/14/2022 Lipid Panel 01/15/2025 01/16/2024, 03/2 02/2023, 03/18/2020 Alcohol/Substance Use Screening 02/04/2025 02/05/2024 SDOH [...] 2 VIEWS Routine 07/16/2024 7:07 PM EST LIPASE Routine 07/16/2024 7:06 PM EST MAGNESIUM Routine 07/16/2024 7:06 PM EST BASIC METABOLIC PANEL Routine 07/16/2024 7:06 PM EST HEPATIC FUNCTION PANEL Routine 07/16/2024 7:06 PM EST CBC WITH AUTO DIFFERENTIAL Routine 07/16/2024 7:06 PM EST SARS COV2/INFLUENZA A/B AND RSV RNA QL NAAT Routine 07/16/2024 7:06 PM EST POCT ADRIAN-14 URINE DRUG SCREEN Routine 07/16/2024 1:49 PM EST [employer] (current) use of opiate analgesic AMB REFERRAL [...] without long-term current use of insulin (CMS/HCC) FERRITIN Routine 04/25/2024 11:01 AM EST IRON [...] Recently Relevant to Health Maintenance Results * XR KUB and Upright 2 Views (07/16/2024 7:07 PM EST) Anatomical Region Laterality Modality Radiographic Tanya ging 07/16/2024 7:07 PM EST Narrative 07/16/2024 7:07 PM EST ? [facility] ?[address] ?[place] [address] ?XRay Report ? Signed ? Patient: Celeste Abad ?MR#: [id number] ?? 4 ? : 1945 ?Acct:[id number] ? Age/Sex: 78 / F ?ADM Date: 07/16/24 ? Loc: HO.ED ? Attending Dr: ? Ordering Physician: Rhea Ken ?? Date of Service: 07/16/24 ?? Procedure(s): XR KUB ?? Accession Number(s): [id number] ? cc: Rhea Ken; Name,Eddie GILOMRE ? CLINICAL HISTORY: ABD pain ? 1 [...] signed by Priscilla Shen MD in OV> ?07/16/241906 ? DD/ 06 ? TD/TT: 07/16/241906 ? Pipelaying Fitter: ? Procedure Note Sahil Tellez - 07/16/[address] [address] XRay Report Signed Patient: Celeste AbadMR#: [id number] 4 : 7Acct:[id number] Age/Sex: 78 / FADM Date: 07/16/24 Loc: HO.ED Attending Dr: Ordering Physician: Rhea Ken Date of Service: 07/16/24 Procedure(s): XR KUB Accession Number(s): [id number] cc: Rhea Ken; Name,Eddie GILMORE CLINICAL HISTORY: ABD pain [...] in OV> 07/16/241906 DD/ 06 TD/TT: 07/16/241906 Pipelaying Fitter: [facility] External Provider IMG XR PROCEDURES Final Result * SARS-CoV-2 RNA, Influenza A/B, and RSV RNA, Ql NAAT (07/16/2024 7:06 PM EST) Influenza A PCR NEGATIVE Negative [facility] Influenza B PCR NEGATIVE Negative [facility] Resp Syncy Virus RNA Qual PCR NEGATIVE Negative [facility] SARS COV2 PCR NEGATIVE Negative [facility] Comment:All test results mus t [...] use by authorized laboratories.Testing performed on the [employer] GeneXpert utilizingreal-time RT-PCR.All SARS CoV2 and positive influenza A/B results arereported to [facility]. 07/16/2024 7:06 PM EST 07/16/2024 7:11 PM EST Generic External Data Provider LAB MICROBIOLOGY - GENERAL ORDERABLES Final Result [facility] [address] [place] [phone] * (ABNORMAL) CBC auto differential (07/16/2024 7:06 PM EST) White Blood Count 10.1 4.8 - 10.8 X10*3/uL [facility] Red Blood Count 4.68 4.20 - 5.50 X10*6/uL [facility] Hemoglobin 13.3 12.0 - 16.0 g/dl [facility] Hematocrit 40.7 37.0 - 47.0 % [facility] Mean Corpuscular Volume 87.0 80.0 - 98.0 fL [facility] Mean Corpuscular Hemoglobin 28.4 27.0 - 33.0 pg [facility] Mean Corpuscular HGB Conc 32.7 31.0 - 35.0 g/dl [facility] Red Cell Distribution Width 15.0 11.0 - 16.0 % [facility] Platelet Count 272 160 - 400 X10*3/uL [facility] Mean Platelet Volume 9.9 9.4 - 12.3 fL [facility] Neutrophils Percent Auto 74.5(H) 45 - 73 % [facility] Imm Gran Pct Auto 0.3 0.0 - 0.4 % [facility] Lymphocytes Percent Auto 16.3(L) 20 - 40 % [facility] Monocytes Percent Auto 8.0 2 - 11 % [facility] Eosinophils Percent Auto 0.7 0 - 4 % [facility] Basophils Percent Auto 0.2 0 - 2 % [facility] NRBC Pct Auto 0.0 0.0 - 0.2 /100WBC [facility] Neutrophils Absolute Auto 7.6 2.0 - 8.3 x10*3/uL [facility] Imm Gran Abs Auto 0.03 0.00 - 0.03 X10*3/uL [facility] Lymphocytes Absolute Auto 1.7 1.2 - 4.9 X10*3/uL [facility] Monocytes Absolute Auto 0.8 0.1 - 1.2 X10*3/uL [facility] Eosinophils Absolute Auto 0.1 0.0 - 0.4 X10*3/uL [facility] Basophils Absolute Auto 0.0 0.0 - 0.2 X10*3/uL [facility] NRBC Abs Auto 0.000 0.0 - 0.012 X10*3/uL [facility] 07/16/2024 7:06 PM EST 07/16/2024 7:11 PM EST Generic External Data Provider LAB BLOOD ORDERAB LES Final Result Performing Organization Address [facility] Co de Phone Number [facility] [address] [place] [phone] * Magnesium (07/16/2024 7:06 PM EST) Pathologist [facility] Magnesium 2.2 1.6 - 2.6 mg/dL [facility] 07/16/2024 7:06 PM EST 07/16/2024 7:11 PM EST us Generic External Data Provider LAB BLOOD ORDERAB LES Final Result Performing Organization Address [facility] Phone Number [facility] [address] [place] [phone] * Lipase (07/16/2024 7:06 PM EST) Lipase 8 8 - 78 U/L [facility] 07/16/2024 7:06 PM EST 07/16/2024 7:11 PM EST Generic External Data Provider LAB BLOOD ORDERAB LES Final Result Performing Organization Address [facility] de Phone Number [facility] [address] [place] [phone] * (ABNORMAL) Hepatic Function Panel (07/16/2024 7:06 PM EST) Bilirubin, Total 0.4 0.0 - 1.0 mg/dL [facility] Bilirubin, Direct 0.2 0.0 - 0.5 mg/dL [facility] Aspartate Amino Transferase 37(H) 5 - 31 U/L [facility] Alanine Aminotransferase 27 0 - 31 U/L [facility] Total Protein 7.5 6.5 - 8.0 g/dL [facility] Albumin Level 3.9 3.5 - 5.0 g/dL [facility] Alkaline Phosphatase 136(H) 39 - 117 U/L [facility] 07/16/2024 7:06 PM EST 07/16/2024 7:11 PM EST us Generic External Data Provider LAB BLOOD ORDERAB LES Final Result [facility] [address] [place] [phone] * (ABNORMAL) Basic Metabolic Panel (07/16/2024 7:06 PM EST) Sodium 139 135 - 145 mmol/L [facility] Potassium 4.3 3.3 - 5.1 mmol/L [facility] Chloride 102 96 - 108 mmol/L [facility] Carbon Dioxide 25 22 - 29 mmol/L [facility] Anion Gap 16 12 - 20 [facility] Urea Nitrogen (BUN) 18(H) 9 - 16 mg/dL [facility] Creatinine, Serum 0.73 0.5 - 1.4 mg/dL [facility] Creatinine Clr Calc Pharmacy 58.3 [facility] Comment:Provided height and weight: 157.48 cm,68.039 kg.eGFR (calculated from the MDRD study equation) and eCrCl(calculated from the Cockcroft-Gault equation) are based ondifferent parameters and may not yield comparable results.If eCrCl result is absurd, please check patient'sheight/weight. Estimated Glomerular Filt Rate >60 [facility] Comment:Chronic Kidney Disea se: Estimated GFR < 60 mL/min/1.73j2Wjcdmt Kidney Disease: Estimated GFR < 15 mL/min/1.73m2 Glucose 124(H) 60 - 115 mg/dL [facility] Calcium 9.1 8.4 - 10.2 mg/dL [facility] 07/16/2024 7:06 PM EST 07/16/2024 7:11 PM EST us Generic External Data Provider LAB BLOOD ORDERAB LES Final Result [facility] [address] [place] [address] [phone] * POCT ADRIAN-14 Urine Drug Screen (07/16/2024 1:49 PM EST) Oxycodone Screen, Urine Positive Urine Urine specimen obtained by clean catch procedure / Unknown 07/16/2024 1:49 PM EST us Mckenzie Trent NET SOFTWARE DEVELOPER POINT OF CARE TEST ENTER/EDIT ORDERABLES Final Result * Referral to Orthopaedic Surgery (06/03/2024) us Eddie Marshall MD OUTPATIENT REFERRAL ORDERABLES F inal Result * XR Shoulder 2+ Views Right (05/15/2024 12:55 PM EST) Anatomical Region Laterality Modality Upper Extremities, Shoulder Right Radi ographic Imaging 05/15/2024 12:5 5 PM EST Narrative 05/16/2024 10:05 AM EST ? [facility] ?[address] ?[place] [address] ?XRay Report ? Signed ? Patient: Jenniffer,Celeste ?MR#: [id number] ?? 4 ? : 1945 ?Acct:[id number] ? Age/Sex: 78 / F ?ADM Date: 11/27/24 ? Loc: HO.HHCL ? Attending Dr: Eddie Marshall MD ? Ordering Physician: Name,Eddie GILMORE ?? Date of Service: 05/15/24 ?? Procedure(s): XR shoulder RT min 2V ?? Accession Number(s): [id number] ? cc: Name,Eddie GILMORE ? EXAMINATION: ?? [...] DD/ 1255 ? TD/TT: 05/15/24 1300 ? Pipelaying Fitter: SR ? Procedure Note Sahil Tellez - 05/16/[address] [address] XRay Report Signed Patient: Celeste AbadMR#: [id number] 4 : 1945cct:[id number] Age/Sex: 78 / FADM Date: 05/15/24 Loc: HO.CL Attending Dr: Eddie Marshall MD Ordering Physician: Eddie Marshall MD Date of Service: 05/15/24 Procedure(s): XR shoulder RT min 2V Accession Number(s): [id number] cc: Eddie Marshall MD EXAMINATION: XR SHOULDER, [...] Kashif Stinson MD 05/16/2024 10:03 AM EST RP Dictated By: Kashif Stinson MD Signed By: <Electronically signed by Kashif Stinson MD in OV> 05/16/24 1003 DD/ 1255 TD/TT: 05/15/24 1300 Pipelaying Fitter: SR us Eddie Name IMG XR PROCEDURES Final Result * XR Thoracic Spine 2 Views (05/15/2024 12:55 PM EST) Anatomical Region Laterality Modality Spine, T-spine Radiographic Tanya ging 05/15/2024 12:5 5 PM EST Narrative 05/16/2024 10:23 AM EST ? [facility] ?[address] ?[place] [address] ?XRay Report ? Signed ? Patient: Celeste Abad ?MR#: [id number] ?? 4 ? : 1945 ?Acct:[id number] ? Age/Sex: 78 / F ?ADM Date: 05/15/24 ? Loc: HO.HHCL ? Attending Dr: Eddie Marshall MD ? Ordering Physician: Eddie Marshall MD ?? Date of Service: 05/15/24 ?? Procedure(s): XR thoracic spine 2V ?? Accession Number(s): [id number] ? cc: Eddie Marshall MD ? EXAMINATION: [...] DD/ 1255 ? TD/TT: 05/15/24 1300 ? Pipelaying Fitter: SR ? Procedure Note Donotuseinterpreter, Image - 05/16/[address] [address] XRay Report Signed Patient: Celeste AbadMR#: [id number] 4 : 1945cct:[id number] Age/Sex: 78 / FADM Date: 05/15/24 Loc: HO.HHCL Attending Dr: Eddie Marshall MD Ordering Physician: Eddie Marshall MD Date of Service: 05/15/24 Procedure(s): XR thoracic spine 2V Accession Number(s): [id number] cc: Eddie Marshall MD EXAMINATION: XR THORACIC [...] 05/16/24 1021 DD/ 1255 TD/TT: 05/15/24 1300 Pipelaying Fitter: Eddie Marshall MD IM XR PROCEDURES Final Result * Vitamin D, 25-Hydroxy, Total, Immunoassay (05/15/2024 12:37 PM EST) Vitamin D 25-OH Total 72.9 >30 ng/mL [facility] Comment:Health Based Referen ce Values*< 20 ng/mL Mmdexippu04-17 ng/mL Insufficient> 30 ng/mL Sufficient*Judy REDDY. N [...] 12:37 PM EST 05/15/2024 1:12 PM EST Result [facility] us Eddie Marshall MD LAB BLOOD ORDERABLES Final Resul t Performing Organization Address [facility] de Phone Number [facility] [address] [place] [phone] * (ABNORMAL) Vitamin B12 (05/15/2024 12:37 PM EST) Vitamin B12 >2,000(H) 200 - 900 pg/mL [facility] Comment:NORMAL 200-900 PG/ML INDETERMINATE 160-199 PG/ML DEFICIENT < 160 PG/ML 05/15/2024 12:3 7 PM EST 05/15/2024 1:12 PM EST Result Gena Marshall MD LAB BLOOD ORDERABLES Final Resul t Performing Organization Address [facility] de Phone Number [facility] [address] [place] [phone] * POCT Glucose (05/10/2024 11:34 AM EST) Glucose Blood, POC 129 60 - 200 mg/dL [employer] Lot # [id number] Lot# Expiration Date Blood Capillary blood specimen / Unknown 05/10/2024 11:34 AM EST Result Gena Marshall MD POINT OF CARE TEST ENTER/EDIT OR DERABLES Final Result * Iron And Total Iron Binding Capacity (04/25/2024 11:01 AM EST) Pathologist [facility] Iron 52 30 - 160 mcg/dL [facility] Total Iron Binding Capacity 306 228 - 428 mcg/dL [facility] Percent Iron Saturation 17 15 - 50 % [facility] Unsaturated Iron Binding 254 ug/dL [facility] 04/25/2024 11:0 1 AM EST 04/25/2024 11:01 AM EST us Generic External Data Provider LAB BLOOD ORDERAB LES Final Result Performing Organization Address City/State/[facility] Co de Phone Number [facility] [address] [place] [phone] * CBC (04/25/2024 11:01 AM EST) [facility] White Blood Count 8.1 4.8 - 10.8 X10*3/uL [facility] Red Blood Count 4.68 4.20 - 5.50 X10*6/uL [facility] Hemoglobin 13.6 12.0 - 16.0 g/dl [facility] Hematocrit 41.6 37.0 - 47.0 % [facility] Mean Corpuscular Volume 88.9 80.0 - 98.0 fL [facility] Mean Corpuscular Hemoglobin 29.1 27.0 - 33.0 pg [facility] Mean Corpuscular HGB Conc 32.7 31.0 - 35.0 g/dl [facility] Red Cell Distribution Width 14.7 11.0 - 16.0 % [facility] Platelet Count 268 160 - 400 X10*3/uL [facility] Mean Platelet Volume 10.4 9.4 - 12.3 fL [facility] NRBC Pct Auto 0.0 0.0 - 0.2 /100WBC [facility] NRBC Abs Auto 0.000 0.0 - 0.012 X10*3/uL [facility] 04/25/2024 11:0 1 AM EST 04/25/2024 11:01 AM EST us Generic External Data Provider LAB BLOOD ORDERAB LES Final Result Performing Organization Address City/[facility]/ZIP Co de Phone Number [facility] [address] [place] [phone] * Ferritin (04/25/2024 11:01 AM EST) Ferritin 85 10 - 250 ng/mL [facility] 04/25/2024 11:0 1 AM EST 04/25/2024 11:01 AM EST Generic External Data Provider LAB BLOOD ORDERAB LES Final Result Performing Organization Address [facility] Co de Phone Number [facility] [address] [place] [phone] * POCT HGB A1C (02/05/2024 12:14 PM EDT) Hemoglobin A1C 6.0 4.0 - 6.0 % Blood 02/05/2024 12:1 4 PM EDT Eddie Name POINT OF CARE TEST ENTER/EDIT OR DERABLES Final Result * (ABNORMAL) Lipid Panel, Standard (01/16/2024 9:40 AM EDT) Triglycerides 199(H) <150 mg/dL [facility] Comment:Desirable Triglyceri de: less than 150 mg/dLBorderline High Triglyceride 150-199 mg/dLHigh Triglyceride: 200-499 mg/dLVery High Triglyceride: greater than or equal to 5OO mg/dL Cholesterol 150 <200 mg/dL [facility] Comment:Desirable Cholestero l: less than 200 mg/dLBorderline High Cholesterol: 200-239 mg/dLHigh Cholesterol: greater than 239 mg/dL LDL Cholesterol Calculated 63 <100 mg/dL [facility] Comment:Desirable LDL: less than 100 mg/dLNear Optimal/Above Optimal LDL: 110- 129 mg/dLBorderline High LDL: 130-159 mg/dLHigh LDL: 160-189 mg/dLVery High LDL: greater than or equal to 190 mg/dL HDL Cholesterol 48 >40 mg/dL [facility] Comment:Desirable HDL: great er than 40 mg/dL Note: This HDL assay may give artificially low results in patients with liver disease. Blood Venous blood specimen / Unknown 01/16/2024 9:40 AM EDT 01/16/2024 11:20 AM EDT us Eddie Marshall MD LAB BLOOD ORDERABLES Final Resul t Performing Organization Address [facility] Co de Phone Number [facility] [address] [place] [phone] * Albumin, Random Urine W/Creatinine (01/16/2024 9:35 AM EDT) Creatinine, Urine 27.62 mg/dL [facility] Microalbumin Urine <5.0 mg/L [facility] Microalbum Creatinine Ratio Ur TNP <30 ug/mg cr [facility] Comment:Unable to calculate albumin/creatinine ratio due to lowmicroalbumin or creatinine result. Urine (Urine, Random) 01/16/2024 9:35 AM EDT 01/16/2024 11:12 AM EDT us Eddie Marshall MD LAB URINE ORDERABLES Final Resul t Performing Organization Address [facility] Co de Phone Number [facility] [address] [place] [phone] * Hm Diabetes Eye Exam (05/16/2023) Eye Exam Normal Normal us Eddie Marshall MD HEALTH MAINTENANCE Final Result * (ABNORMAL) Hepatitis Panel, General (11/18/2022 2:07 PM EDT) Hepatitis A Antibody Total REACTIVE( A) NON-REACT NAHID [employer] Comment: For additional information, please refer to [email or web address] (This link is being provided for informational/ educational purposes only.) Hepatitis B Surface Antibody QL NON-REACT NAHID NON-REACT NAHID [facility] Hepatitis B Surface Ag NON-REACT NAHID NON-REACT NAHID [facility] Hepatitis B Core Antibody Total NON-REACT NAHID NON-REACT NAHID [facility] Hepatitis C Antibody NON-REACT NAHID NON-REACT NAHID [facility] [place] [employer] [facility] Index 0.07 <1.00 [facility] [place] [employer] [facility] Comment: HCV antibody was non-reactive. There is no laboratory evidence of HCV infection. In most cases, no further action is required. However, if recent HCV exposure is suspected, a test for HCV RNA (test code 76530) is suggested. For additional information please refer to http://MeBeam.Veenome/faq/MSZ27t5 (This link is being provided for informational/ educational purposes only.) 11/18/2022 2:07 PM EDT 11/18/2022 2:09 PM EDT Narrative [facility] - 11/19/2022 6:51 AM EDT COLLECTION KIT GIVEN TO PATIENT. PATIENT ADVISED TO RETURN. Mckenzie Pillai [facility] BLOOD ORDERABLES Final Res ult [facility] [address], [place] [address] [facility] [address] [place] [address] from Last 3 Months or Most Recently Relevant to Health Maintenance Insurance [employer] Care Teams Retail Associate Manager Bilingual Relationship Specialty Start Date End Date Name, MD Eddie [address] [place] [address] PCP - General Family Medicine 09/16/15 [facility] 07/01/24
--- OUTSIDE RECORDS SUMMARY | 2024-07-17 15:06 | XMS_ITS | Encounter Summary ---
Author Organization [employer] Address [address] [place] [address] 7 [place] [address] Care Team Providers Care Associate Name Role Phone Name, Eddie GILMORE Primary Care Provider [phone] Reason for Visit * Reason Onset Date Comments Active Med List 06/28/2023 Encounter Details Date Type Department Care Team ([facility] st Contact Info) Description 06/28/2023 Telephone [facility]INE 230 [place], [place] [phone] Name, MD Eddie 230 [place] [address] Active Med List Social History Tobacco Use [...] Be requesting a updated active medication list 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 [facility] [address], [place], [place] [phone] documented in this encounter Plan of Treatment Upcoming Encounters Date Type Department Care Team (Late st Contact Info) Description 08/13/2024 9:45 AM EST Office Visit [facility] [address] [place] [address] documented as of this encounter Visit Diagnoses Not on filedocumented in this encounter Additional Health Concerns Assessment Noted Time PHQ-9 Depression Total Score: 10 023 1:16 PM EDT documented as of this encounter Care Teams Associate Relationship Specialty Start Date End Date Name, MD Eddie 230 [place] [address] PCP - General Family Medicine 09/16/15 [place] [facility] 07/01/24 documented as of this encounter
--- OUTSIDE RECORDS SUMMARY | 2024-07-17 15:06 | XMS_ITS | Encounter Summary ---
Author Organization [email or web address] Address [address] [place] [address] 7 [place] [address] Care Team Providers Care Assessment Nurse Practitioner Name Role Phone Name, Eddie GILMORE Primary Care Provider [phone] Reason for Visit * Reason Comments Med Refill Encounter Details Date Type Department Care Team (Late Contact Info) Description 01/04/2023 Refill [facility] MEDICINE [address] [place] [address] [phone] Name, MD Eddie [address] [place] [address] Gastroesophageal reflux disease, unspecified whether esophagitis present [...] Visit [facility] MEDICINE 230 [facility] [place] [address] documented as of this encounter Visit Diagnoses Diagnosis Gastroesophageal reflux disease, unspecified whether esophagitis present documented in this encounter Additional Health Concerns Assessment Noted Time PHQ-9 Depression Total Score: 10 11/28/ 023 1:16 PM EDT documented as of this encounter Care Teams Assessment Nurse Practitioner Relationship Specialty Start Date End Date Name, MD Eddie 230 [place] [address] PCP - General Family Medicine 09/16/15 [place] [facility] 07/01/24 documented as of this encounter
--- OUTSIDE RECORDS SUMMARY | 2024-07-17 15:06 | XMS_ITS | Encounter Summary ---
Author Organization [employer] Address [address] [place] [address] 7 [place] [address] Care Team Providers Care Refractory Worker Name Role Phone Name, Eddie GILMORE Primary Care Provider Reason for Visit * Reason Comments Acupuncture Encounter Details Date Type Department Care Team ([facility] st Contact Info) Description 07/16/2024 9:15 AM EST Office Visit [facility] MEDICINE 230 [place], [place] [phone] Kelly Montoya MD 230 [place], [place] [phone] Chronic pain syndrome (Primary Dx) Social History [...] Description 08/13/2024 9:45 AM EST Office Visit [facility] MEDICINE [address] [place] [address] documented as of this encounter Visit Diagnoses Diagnosis Chronic pain syndrome- Primary documented in this encounter Additional Health Concerns Assessment Noted Time PHQ-9 Depression Total Score: 9 05/10/20 24 11:56 AM EST documented as of this encounter Care Teams Refractory Worker Relationship Specialty Start Date End Date Name, MD Eddie 230 [place] [address] PCP - General Family Medicine 09/16/15 [place] [facility] 07/01/24 documented as of this encounter
--- OUTSIDE RECORDS SUMMARY | 2024-07-17 15:06 | XMS_ITS | Encounter Summary ---
Author Organization [employer] Address [address] [place] [address] [place] [address] Care Team Providers Care Intrusion Analyst Name Role Phone Name, Eddie GILMORE Primary Care Provider [phone] Reason for Visit * Reason Comments Med Refill Encounter Details Date Type Department Care Team (Late st Contact Info) Description 01/29/2023 Refill [facility] MEDICINE [address] [place] [address] [phone] Farhana Singh FNP [address] [place] [address] Dept of Internal Medicine [place] [phone] Social History Tobacco Use Types Packs/Day Years [...] Description 08/13/2024 9:45 AM EST Office Visit [facility] MEDICINE [address] [place] [address] [phone] documented as of this encounter Visit Diagnoses Not on filedocumented in this encounter Additional Health Concerns Assessment Noted Time PHQ-9 Depression Total Score: 10 023 1:16 PM EDT documented as of this encounter Care Teams Intrusion Analyst Relationship Specialty Start Date End Date Name, MD Eddie 230 [place] [address] PCP - General Family Medicine 09/16/15 [place] [facility] 07/01/24 documented as of this encounter
--- OUTSIDE RECORDS SUMMARY | 2024-07-17 15:06 | XMS_ITS | Encounter Summary ---
Author Organization [employer] Address [address] [place] [address] 7t [place] [address] Care Team Providers Care Installer Metal Flooring Name Role Phone Name, Eddie GILMORE Primary Care Provider [phone] Encounter Details Date Type Department Care Team ([facility] st Contact Info) Description 12/07/2022 Telephone [facility] MEDICINE 230 [place], [place] [phone] Name, MD Eddie 230 [place] [address] Social History Tobacco Use Types Packs/Day Years [...] update PCP now. Ordering provider Pierce Pillai HEEL SPR[employer] FIRST Follow with genaro as indicated. Results faxed at time of call to [phone]. Ref.# [id number] C documented in this encounter Plan of Treatment Upcoming Encounters Date Type Department Care Team (Late st Contact Info) Description 08/13/2024 9:45 AM EST Office Visit [facility] MEDICINE 230 [place] [address] documented as of this encounter Visit Diagnoses Not on filedocumented in this encounter Additional Health Concerns Assessment Noted Time PHQ-9 Depression Total Score: 10 023 1:16 PM EDT documented as of this encounter Care Teams Installer Metal Flooring Relationship Specialty Start Date End Date Name, MD Eddie [address] [place] [address] PCP - General Family Medicine [facility]15 [facility] documented as of this encounter
--- OUTSIDE RECORDS SUMMARY | 2024-07-17 15:06 | XMS_ITS | Encounter Summary ---
Author Organization [employer] Address [address] [place] [address] 7 [place] [address] Care Team Providers Care Director Maternal Child Name Role Phone Name, Eddie GILMORE Primary Care Provider [phone] Reason for Visit * Reason Onset Date Comments Med Refill 07/12/2024 Encounter Details Date Type Department Care Team ([facility] st Contact Info) Description 07/12/2024 Refill [facility] MEDICINE 230 [place], [place] [phone] Name, MD Eddie 230 [place] [address] Social History Tobacco Use Types Packs/Day Years [...] Base) MCG/ACT inhaler To be sent to: [facility] pharmacy documented in this encounter Plan of Treatment Upcoming Encounters Date Type Department Care Team (Late st Contact Info) Description 08/13/2024 9:45 AM EST Office Visit [facility] MEDICINE 230 [place] [address] documented as of this encounter Visit Diagnoses Not on filedocumented in this encounter Additional Health Concerns Assessment Noted Time PHQ-9 Depression Total Score: 9 05/10/20 11:56 AM EST documented as of this encounter Care Teams Director Maternal Child Relationship Specialty Start Date End Date Name, MD Eddie 230 [place] [address] PCP - General Family Medicine 09/16/15 [place] [facility] 07/01/24 documented as of this encounter
--- OUTSIDE RECORDS SUMMARY | 2024-07-17 15:06 | XMS_ITS | Encounter Summary ---
Author Organization [employer] Address [address] [place] [address] 7 [place] [address] Care Team Providers Care Die Turner Name Role Phone Name, Eddie GILMORE Primary Care Provider [phone] Reason for Visit * Reason Onset Date Comments Med Refill 07/12/2024 Encounter Details Date Type Department Care Team ([facility] st Contact Info) Description 07/12/2024 Refill [facility] MEDICINE 230 [place], [place] [phone] Name, MD Eddie 230 [place], [place] [phone] Chronic pain syndrome Social History Tobacco Use [...] 5-325 MG tablet To be sent to: [facility] Pharmacy documented in this encounter Plan of Treatment Upcoming Encounters Date Type Department Care Team (Late st Contact Info) Description 08/13/2024 9:45 AM EST Office Visit [facility] MEDICINE [address] [place] [address] documented as of this encounter Visit Diagnoses Diagnosis Chronic pain syndrome documented in this encounter Additional Health Concerns Assessment Noted Time PHQ-9 Depression Total Score: 9 05/10/20 24 11:56 AM EST documented as of this encounter Care Teams Die Turner Relationship Specialty Start Date End Date Name, MD dEdie 230 [place] [address] PCP - General Family Medicine 09/16/15 [place] [facility] 07/01/24 documented as of this encounter
--- OUTSIDE RECORDS SUMMARY | 2024-07-17 15:06 | XMS_ITS | Encounter Summary ---
Author Organization [employer] Address [address] [place] [address] 7 [place] [address] Care Team Providers Care Pattern Developer Name Role Phone Name, Eddie GILMORE Primary Care Provider [phone] Reason for Visit * Reason Onset Date Comments Referral 12/15/2023 Encounter Details Date Type Department Care Team ([facility] st Contact Info) Description 12/15/2023 Telephone [facility] MEDICINE 230 [place], [place] [phone] Name, MD Eddie 230 [place] [address] Referral Social History Tobacco Use Types Packs/Day [...] States she used to see neurologist at [facility] for seizure, but office called her and [...] pt requesting a new referral for [facility]: Ashlee Montemayor MD, states they were being seen at [facility] [address] [place] [address], [place] [address] however they were advised they no longer take pt insurance. Please contact at [phone] documented in this encounter Plan of Treatment Upcoming Encounters Date Type Department Care Team ([facility] st Contact Info) Description 08/13/2024 9:45 AM EST Office Visit [facility] MEDICINE 230 [place] [address] documented as of this encounter Visit Diagnoses Not on filedocumented in this encounter Additional Health Concerns Assessment Noted Time PHQ-9 Depression Total Score: 12 024 1:04 PM EDT documented as of this encounter Care Teams Pattern Developer Relationship Specialty Start Date End Date Name, MD Eddie 230 [place] [address] PCP - General Family Medicine 09/16/15 [place] [facility] 07/01/24 documented as of this encounter
--- OUTSIDE RECORDS SUMMARY | 2024-07-17 15:06 | XMS_ITS | Encounter Summary ---
Author Organization [employer] Address [address] [place] [address] 7 [place] [address] Care Team Providers Care Rn Training Name Role Phone Name, Eddie GILMORE Primary Care Provider [phone] Reason for Visit * Reason Onset Date Comments Medication Question 09/05/2023 Encounter Details Date Type Department Care Team ([facility] st Contact Info) Description 09/05/2023 Telephone [facility] MEDICINE 230 [place], [place] [phone] Name, MD Eddie [address] [place] [address] Medication Question Social History Tobacco Use Types [...] Office Visit [facility] MEDICINE 230 [place] [address] documented as of this encounter Visit Diagnoses Not on filedocumented in this encounter Additional Health Concerns Assessment Noted Time PHQ-9 Depression Total Score: 10 023 1:16 PM EDT documented as of this encounter Care Teams Rn Training Relationship Specialty Start Date End Date Name, MD Eddie [address] [place] [address] PCP - General Family Medicine 09/16/15 [place] [facility] 07/01/24 documented as of this encounter
--- OUTSIDE RECORDS SUMMARY | 2024-07-17 15:06 | XMS_ITS | Encounter Summary ---
Author Organization [facility] [employer] Address [address] [place] [address] 7 [place] [address] Care Team Providers Care Stock Buyer Name Role Phone Name, Eddie GILMORE Primary Care Provider [phone] Encounter Details Date Type Department Care Team ([facility] Contact Info) Description 11/18/2022 Abstract [facility] MEDICINE [address] [place] [address] [phone] Name, MD Eddie [address] [place] [address] [phone] Social History Tobacco Use Types Packs/Day Years [...] Upcoming Encounters Date Type Department Care Team ([facility] Contact Info) Description 08/13/2024 9:45 AM EST Office Visit [facility] MEDICINE [address] [place] [address] [phone] documented as of this encounter Visit Diagnoses Not on filedocumented in this encounter Care Teams Stock Buyer Relationship Specialty Start Date End Date Name, MD Eddie 230 [facility] [place] [address] PCP - General Family Medicine 09/16/15 [place] [facility] 07/01/24 documented as of this encounter
--- OUTSIDE RECORDS SUMMARY | 2024-07-17 15:06 | XMS_ITS | Encounter Summary ---
Author Organization [employer] Address [address] [facility] 7t [place] [address] Care Team Providers Care Churn Drill Operator Name Role Phone Name, Eddie GILMORE Primary Care Provider [phone] Encounter Details Date Type Department Care Team [...] Description 08/13/2024 9:45 AM EST Office Visit [facility] MEDICINE 230 [place] [address] documented as of this encounter Visit Diagnoses Not on filedocumented in this encounter Additional Health Concerns Assessment Noted Time PHQ-9 Depression Total Score: 9 05/10/20 24 11:56 AM EST documented as of this encounter Care Teams Churn Drill Operator Relationship Specialty Start Date End Date Name, MD Eddie 230 [place] [address] PCP - General Family Medicine 09/16/15 [place] [facility] 07/01/24 documented as of this encounter
--- OUTSIDE RECORDS SUMMARY | 2024-07-17 15:06 | XMS_ITS | Encounter Summary ---
Author Organization [employer] Address [address] [place] [address] 7 [place] [address] Care Team Providers Care E Marketing Specialist Name Role Phone Name, Eddie GILMORE Primary Care Provider [phone] Reason for Visit * Reason Onset Date Comments Referral 02/02/2023 Back dated refer ral Encounter Details Date Type Department Care Team ([facility] st Contact Info) Description 02/02/2023 Telephone [facility] MEDICINE 230 [place], [place] [phone] Name, MD Eddie 230 [place] [address] Referral (Back dated referral ) Social History [...] 1:40 PM EDT Tc from Kasie at [facility] requesting status on message below regarding referral. Fax number [phone]. Any questions please call [phone] * Telephone Encounter - Amber Roger RN - 02/03/2023 10:34 AM EDT Please review message below regarding backdated referral for these dates * Telephone Encounter - Laure Mcgill - 02/02/2023 2:07 PM EDT Tc from Kasie at [facility] calling in regards to referral needing to be back dated. Patient was seen at the office on 01/03/23 and 01/11/23. Fax number [phone]. Any questions please call [phone]. documented in this encounter Plan of Treatment Upcoming Encounters Date Type Department Care Team (Late st Contact Info) Description 08/13/2024 9:45 AM EST Office Visit [facility] MEDICINE [address] [place] [address] documented as of this encounter Visit Diagnoses Not on filedocumented in this encounter Additional Health Concerns Assessment Noted Time PHQ-9 Depression Total Score: 10 023 1:16 PM EDT documented as of this encounter Care Teams E Marketing Specialist Relationship Specialty Start Date End Date Name, MD Eddie [address] [place] [address] PCP - General Family Medicine 09/16/15 [facility] 07/01/24 documented as of this encounter
== END 2024-07-17 13:56 | disposition home or self-care (01) ==
PROVIDERS: PCP Internal Medicine Geriatric Medicine; Referring Provider Internal Medicine Cardiovascular Disease; Visit Provider Nurse Practitioner Family
DX: J44.9 Chronic obstructive pulmonary disease, unspecified (principal); J43.9 Emphysema, unspecified; Z87.891 Personal history of nicotine dependence
CPT/HCPCS: 99204

== ENCOUNTER → 2024-07-17 12:59 | Outpatient (BNVA) | payer MEDICARE, SELFPAY | PROVIDERS: PCP Internal Medicine Geriatric Medicine; Referring Provider Internal Medicine Cardiovascular Disease; Visit Provider Nurse Practitioner Family | DX: J44.9 Chronic obstructive pulmonary disease, unspecified (principal); J43.9 Emphysema, unspecified; Z87.891 Personal history of nicotine dependence | CPT/HCPCS: 99202 ==

== ENCOUNTER 2024-08-14 09:19 | Outpatient (REF) | payer MEDICARE, SELFPAY ==
--- NOTE | ~2024-08-14 | FL_ITS ---
EXAMINATION: XR FLUOROSCOPY UPPER GI WITH AIR CLINICAL INFORMATION: Reflux. Dysphagia. COMPARISON: None TECHNIQUE: Fluoroscopic air contrast upper GI examination was performed utilizing standard techniques with thin and thick barium and effervescent granules. Numerous spot images were obtained. FINDINGS: Lateral cine images of the oropharynx and hypopharynx demonstrate normal swallow mechanism with normal epiglottic inversion and soft palate elevation. There is laryngeal penetration with thick and thin consistency barium. No tracheal penetration, glottic or subglottic aspiration identified. No nasopharyngeal reflux present. Hypopharyngeal structures appear normal without evidence of mass or diverticulum. There was no significant cricopharyngeal achalasia. Surgical clips are present in the right upper quadrant. Dual and single contrast images of the esophagus demonstrate normal caliber, contour, and mucosal pattern. No evidence of stricture, mass, or ulcerations identified. Esophageal peristalsis is mildly disorganized. A large paraesophageal hernia is present, with the majority of the fundus located within the thoracic cavity. Gastroesophageal reflux is seen up to level the aortic arch. Dual contrast and single contrast images of the stomach demonstrated a normal contour. The gastric rugal folds have a thickened appearance, suggestive gastritis. No masses or ulcerations are seen. Contrast freely passed into the gastric antrum and duodenal bulb without delay. Single and air-contrast images of the duodenal bulb demonstrate no abnormality. The duodenal sweep has a normal appearance, course, and mucosal fold appearance. A small diverticulum is noted in the second segment of the duodenum. The imaged proximal jejunum has a normal fold pattern and caliber. FLUOROSCOPY TIME: 2 minutes 58 seconds Number of Spot Images: 12 Number of Cine: 12 DOSE AREA PRODUCT: 1610 uGy-m2 (microgray-meter squared) FL/FL barium swallow with air IMPRESSION: 1. Laryngeal penetration with thick and thin consistency barium. No subglottic aspiration was observed. 2. Mild esophageal dysmotility. 3. Large paraesophageal hernia, with the majority the fundus located within the thoracic cavity. 4. Moderate gastroesophageal reflux. 5. Thickened appearance of the gastric rugal folds, suggestive gastritis. 6. Small diverticulum noted in the second segment of duodenum. 7. Status post cholecystectomy. This procedure was performed by Devon Delvalle PA-C, and supervised by Dr. Shore Electronically signed by: Sagar Shore MD 08/15/2024 04:[address] [facility] Workstation: [id number]
--- OUTSIDE RECORDS SUMMARY | 2024-08-14 10:27 | XMS_ITS | Encounter Summary ---
Author Organization [employer] Address [address] [place] [address] [place] [address] Care Team Providers Care Vegetable Vendor Name Role Phone Name, Eddie GILMORE Primary Care Provider [phone] Reason for Visit * Reason Onset Date Comments Hospital Follow-up 11/10/2022 Encounter Details Date Type Department Care Team (Late st Contact Info) Description 11/10/2022 Refill [facility] MEDICINE 230 [place], [place] [phone] Name, MD Eddie 230 [place] [address] Social History Tobacco Use Types Packs/Day Years [...] Jackman Sent: 11/21/2022 5:23 PM EDT To: [facility] Team Nurses Hi team! Sent this pt to the ED over the weekend for Hgb 7. Got admitted and looks like recently discharged. Can you please outreach her for status check and sched HDF w/ Name? Thank you!! * Telephone Encounter - Suzette Singh RN - 11/22/2022 11:10 AM EDT T/C to [phone] to schedule HDF apt. No answer. LVM to call back on [phone]. ----- Message from Amber Roger RN sent at 11/22/2022 9:06 AM EDT ----- ----- Message ----- From: DENIS Jackman Sent: 11/21/2022 5:23 PM EDT To: [facility] Team Nurses Hi team! Sent this pt to the ED over the weekend for Hgb 7. Got admitted and looks like recently discharged. Can you please outreach her for status check and sched HDF w/ Name? Thank you!! documented in this encounter Plan of Treatment Upcoming Encounters Date Type Department Care Team (Late st Contact Info) Description 10/29/2024 2:30 PM EDT Office Visit [facility] MEDICINE 230 [place] [address] NameEddie MD 230 [place] [address] documented as of this encounter Visit Diagnoses Not on filedocumented in this encounter Care Teams Vegetable Vendor Relationship Specialty Start Date End Date Eddie Marshall MD [address] [place] [address] PCP - General Family Medicine 09/16/15 [facility] documented as of this encounter
--- OUTSIDE RECORDS SUMMARY | 2024-08-14 10:27 | XMS_ITS | Encounter Summary ---
Author Organization [employer] Address [address] [place] [address] 7 [place] [address] Care Team Providers Care Environmental Coordinator Name Role Phone Name, Eddie GILMORE Primary Care Provider [phone] Reason for Visit * Reason Comments Acupuncture Encounter Details Date Type Department Care Team ([facility] st Contact Info) Description 07/16/2024 9:15 AM EST Office Visit [facility] MEDICINE 230 [place], [place] [phone] Kelly Montoya MD 230 [place], [place] [phone] Chronic pain syndrome (Primary Dx) Social History [...] Description 10/29/2024 2:30 PM EDT Office Visit [facility] MEDICINE [address] [place] [address] Name, MD Eddie 230 [place] [address] documented as of this encounter Visit Diagnoses Diagnosis Chronic pain syndrome- Primary documented in this encounter Additional Health Concerns Assessment Noted Time PHQ-9 Depression Total Score: 9 05/10/20 24 11:56 AM EST documented as of this encounter Care Teams Environmental Coordinator Relationship Specialty Start Date End Date Name, MD Eddie 230 [place] [address] PCP - General Family Medicine 09/16/15 [place] [facility] 07/01/24 documented as of this encounter
--- OUTSIDE RECORDS SUMMARY | 2024-08-14 10:27 | XMS_ITS | Encounter Summary ---
Author Organization [employer] Address [address] [place] [address] 7 [place] [address] Care Team Providers Care Geometry Teacher Name Role Phone Name, Eddie GILMORE Primary Care Provider [phone] Reason for Visit * Reason Onset Date Comments ER Follow-up 07/30/2024 Encounter Details Date Type Department Care Team ([facility] st Contact Info) Description 07/30/[address] [facility] [address] [place], [place] [id number] Name, MD Eddie [address] [place] [address] ER Follow-up Social History Tobacco Use Types Packs/Day Years [...] Telephone Encounter - Aleksandra Talavera RN - 07/30/2024 3:07 PM EST T/C to pt who agrees to ED f/u with Red team provider for ED f/u as she is not able to come to [facility] due to need to arrange transportation. Pt states she has been diagnosed with level five osteoporosisand emphysema by Dr. Velasquez in Endocrinology at [address] [place] [address] [address] Rowland at[address] [place] [address]. Pt states both doctors are associated with [facility] [place] Advised RN will attempt to obtain notes for PCP review. * Telephone Encounter - Aleksandra Talavera RN - 07/30/2024 2:24 PM EST T/C to pt who states she is ok now but has had several ED visits for epistaxis. Pt states she is aware of need to return to ED if she has another nose bleed. Pt declines first available appt with Blue team provider for follow up. Advised RN will attempt to find sooner appt and return call to pt. * Telephone Encounter - Louann Romo - 07/30/2024 11:46 AM EST Patient calling to report ED visit on : Date: 07/29/24 Hospital: [facility] Seen for: Nose bleed Symptomatic No *if yes message should go to Triage Patient advised will forward to team nurse for follow up Contact pt at [phone] documented in this encounter Plan of Treatment Upcoming Encounters Date Type Department Care Team (Late st Contact Info) Description 10/29/2024 2:30 PM EDT Office Visit [facility] [address] [place] [id number] Name, MD Eddie [address] [place] [phone] documented as of this encounter Visit Diagnoses Not on filedocumented in this encounter Additional Health Concerns Assessment Noted Time PHQ-9 Depression Total Score: 9 05/10/20 24 11:56 AM EST documented as of this encounter Care Teams Geometry Teacher Relationship Specialty Start Date End Date Name, MD Eddie [address] [place] [id number] PCP - General Family Medicine 09/16/15 Jerica SEN 07/01/24 documented as of this encounter
--- OUTSIDE RECORDS SUMMARY | 2024-08-14 10:27 | XMS_ITS | Continuity of Care Document ---
Author Organization [place] - [facility], [facility] Address [address] [place] [phone] Assessment No assessment recorded. Plan of Treatment Reminders Order Date Submit Date Provider Last Modified By Organization Details Last Modified Time Details Appointments Establish ed 15 2024 01:15P Alexx WILSON PA-C Not available Not available Not available Lab None recorded. Referral None recorded. Procedures None recorded. Surgeries None recorded. Imaging None recorded. Medication Orders None recorded. Patient TargetsNo targets recorded. Patient InstructionsNo instructions recorded. Reason for Referral None Reported. Problems Name Problem SNOMED Code Status Onset Date Resolution Date Notes Provider Name and Address Organization Details Recorded Time Essential hypertens ion 46261859 Active 2014 Essential (primary) hypertensi on; Note: Date Diagnosed: 05/07/2015 9:43 AM (I10) Not Available [facility] 4 02:37:47 Bleeding from nose 012857393 Active 2014 Epistaxis; Note: Date Diagnosed: 05/07/2015 9:43 AM (R04.0) Not Available [facility] 4 02:37:50 Anterior epistaxis 301353694 Active 2024 YANIV GARCIA MD [address] [place] [address], [phone] , [place] - [facility] 5 12:32:29 Problem Notes None recorded. Procedures Surgical History Date Name Laterality Status Provider Name and Address Organization Details Recorded Time 5 Epistaxis Simple Nasal Cautery Right completed YANIV GARCIA MD [address] [place] [address], [phone], [place] - [facility] 08/11/2024 12:31:38 Imaging Results None recorded. Procedure Notes None recorded. Medical Equipment None Reported. Allergies Allergen ID Allergen Name Allergen Category Reaction Reaction Severity Criticality Documentation Date Start Date Code Code System Note Provider Name and Address Organization Details Recorded Time 75925 atorvasta tin medicatio n other Not available Not available 10/31/2023 99214 RxNorm React ion: unkno wn, unspe cifie d;; Not Available [facility] 4 00:59:20 Medications Name Sig Start Date Stop Date Status Note LastModified by Organization Details LastModified Time medbox status USE DIRECTED active Not Available Not Available No t Available vitamin b-12 1000 mcg tabs active Not Available Not Available Not Available vitamin d 50 mcg (2000 ut) tabs active Not Available Not Available Not Available latanopro st 0.005 % eye drops active Not Available Not Available Not Available atorvasta tin 40 mg tablet TAKE 1 TABLET BY MOUTH EVERY MORNING active Not Available Not Available No t Available metformin 500 mg tablet TAKE 1 TABLET BY MOUTH TWICE DAILY IN THE MORNING AND AT BEDTIME active Not Available Not Available No t Available oxybutyni n chloride ER 10 mg tablet,ex tended release 24 hr 08/09 completed Medicati on ID: [id number] D uration Value: 90 Brand Name: oxybutyn in chloride Send Method: E-Prescr ibed Sub s Allowed: subs OK Speci al Instruct ion: TAKE 1 TABLET BY MOUTH EVERY DAY Medi cationGe nericNam e: oxybutyn in chloride Not Available Not Available Not Available Patanol 0.1 % eye drops 08/09 completed Medicati on ID: [id number] B rand Name: Patanol Send Method: E-Prescr ibed Sub s Allowed: subs OK Medic ationGen ericName : Patanol Not Available Not Available Not Available famotidin e 40 mg tablet TAKE 1 TABLET BY MOUTH AT BEDTIME active Not Available Not Available No t Available alendrona te 70 mg tablet TAKE 1 TABLET BY MOUTH IN THE MORNING WITH A FULL GLASS OF WATER ON AN EMPTY STOMACH ONCE A WEEK, Do not lie down for 30 minutes after taking 08/09 completed Not Available Not Available Not Available cyanocoba eliceo (vit B-12) 1,000 mcg tablet TAKE 1 TABLET BY MOUTH EVERY MORNING active Not Available Not Available No t Available amlodipin e 2.5 mg tablet TAKE 1 TABLET BY MOUTH EVERY MORNING active Not Available Not Available No t Available clopidogr el 75 mg tablet TAKE 1 TABLET BY MOUTH EVERY MORNING active Not Available Not Available No t Available aspirin 81 mg tablet,de layed release 08/09 completed Medicati on ID: [id number] B rand Name: aspirin Send Method: E-Prescr ibed Sub s Allowed: subs OK Medic ationGen ericName : aspirin Not Available Not Available Not Available tramadol 50 mg tablet 2014 active Medicati on ID: [id number] D uration Value: 28 Brand Name: tramadol Send Method: E-Prescr ibed Sub s Allowed: subs OK Speci al Instruct ion: TAKE 1 TABLET BY MOUTH EVERY 8 HOURS NEEDED FOR PAIN Med icationG enericNa me: tramadol Not Available Not Available Not Available nortripty line 25 mg capsule 08/09 completed Medicati on ID: [id number] D uration Value: 90 Brand Name: nortript yline Se nd Method: E-Prescr ibed Sub s Allowed: subs OK Speci al Instruct ion: TAKE 3 CAPSULES BY MOUTH AT BEDTIME Medicati onGeneri cName: nortript yline Not Available Not Available Not Available levothyro xine 100 mcg tablet 08/09 completed Medicati on ID: [id number] D uration Value: 90 Brand Name: levothyr oxine Se nd Method: E-Prescr ibed Sub s Allowed: subs OK Speci al Instruct ion: TAKE 1 TABLET BY MOUTH EVERY DAY [facility] nericNam e: levothyr oxine Not Available Not Available Not Available oxycodone -acetamin ophen 5 mg-325 mg tablet TAKE 1 TABLET BY MOUTH EVERY 8 HOURS NEEDED FOR SEVERE PAIN active Not Available Not Available No t Available betametha sone valerate 0.1 % topical cream APPLY A THIN LAYER TO AFFECTED AREA(S) ONCE DAILY active Not Available Not Available No t Available pantopraz ole 40 mg tablet,de layed release TAKE 1 TABLET BY MOUTH TWICE DAILY IN THE MORNING AND IN THE EVENING active Not Available Not Available No t Available omeprazol e 20 mg capsule,d elayed release 2014 active Medicati on ID: [id number] D uration Value: 90 Brand Name: juliana hemphill Send Method: E-Prescr ibed Sub s Allowed: subs OK Speci al Instruct ion: TAKE 2 CAPSULES BY MOUTH DAILY. Alexx Salgadomandyic Name: juliana hemphill Not Available Not Available Not Available levetirac etam 750 mg tablet TAKE 1 TABLET BY MOUTH TWICE DAILY IN THE MORNING AND AT BEDTIME active Not Available Not Available No t Available albuterol sulfate HFA 90 mcg/actua tion aerosol inhaler INHALE 2 PUFFS BY MOUTH EVERY 4 TO 6 HOURS NEEDED active Not Available Not Available No t Available fluticaso ne propionat e 50 mcg/actua tion nasal spray,tawny penon 2013 active Medicati on ID: [id number] D uration Value: 30 Brand Name: fluticas one Send Method: E-Prescr ibed Sub s Allowed: subs OK Speci al Instruct ion: SPRAY 2 SPRAYS INTO EACH NOSTRIL DAILY Me dication GenericN delmi: fluticas one Not Available Not Available Not Available loratadin e 10 mg tablet 08/09 completed Medicati on ID: [id number] D uration Value: 30 Brand Name: loratadi ne Send Method: E-Prescr ibed Sub s Allowed: subs OK Speci al Instruct ion: TAKE 1 TABLET BY MOUTH EVERY DAY Medi cationGe nericNam e: loratadi ne Not Available Not Available Not Available levothyro xine 112 mcg tablet TAKE 1 TABLET BY MOUTH EVERY DAY active Not Available Not Available No t Available Tylenol Extra Strength 500 mg tablet active Medicati on ID: [id number] B rand Name: Tylenol Extra Strength Send Method: E-Prescr ibed Sub s Allowed: subs OK Medic ationGen ericName : Tylenol Extra Strength Not Available Not Available Not Available esomepraz ole magnesium 20 mg capsule,d elayed release 08/09 completed Not Available Not Available Not Available nitrofura ntoin monohydra te/macroc rystals 100 mg capsule TAKE 1 CAPSULE BY MOUTH TWICE DAILY FOR 5 DAYS 08/09 completed Not Available Not Available Not Available trospium ER 60 mg capsule,e xtended release 24 hr TAKE 1 CAPSULE BY MOUTH AT BEDTIME active Not Available Not Available No t Available melatonin 5 mg tablet TAKE 2 TABLETS BY MOUTH EVERY DAY AT BEDTIME active Not Available Not Available No t Available cholecalc iferol (vitamin D3) 50 mcg (2,000 unit) tablet TAKE 1 TABLET BY MOUTH EVERY MORNING active Not Available Not Available No t Available OneTouch Verio test strips active Not Available Not Available Not Available Myrbetriq 50 mg tablet,ex tended release TAKE 1 TABLET BY MOUTH EVERY MORNING DO NOT BREAK, CRUSH, DISSOLVE OR CHEW active Not Available Not Available No t Available Breo Ellipta 100 mcg-25 mcg/dose powder for inhalatio n INHALE 1 PUFF BY MOUTH EVERY DAY AT THE SAME TIME RINSE MOUTH AFTER USING active Not Available Not Available No t Available naloxone 4 mg/actuat ion nasal spray FOR SUSPECTE D OPIOID OVERDOSE . SPRAY 0.1mL IN ONE NOSTRIL. REPEAT IN ALTERNAT E NOSTRIL 2-3 MINUTES IF NEEDED. SEEK MEDICAL ATTENTIO N IMMEDIAT TRINH EVEN IF PATIENT RESPONDS . active Not Available Not Available No t Available OneTouch Delica Plus Lancet 33 gauge active Not Available Not Available Not Available Vitals None Recorded Social History None recorded. Functional Status None recorded. Mental Status None recorded. Family History Nothing Reported. Medical History Condition Response Anemia Y Heart Attack ([place]) Y Stroke Y Asthma Y Hypertension Y Gynecological HistoryNo gynecological history recorded. Obstetrics History GPAL:G 0 P 0 0 0 0 Past Encounters Encounter ID Performer Location Encounter Start Date Encounter Closed Date Diagnosis/Indication Diagnosis SNOMED-CT Code Diagnosis ICD10 Code Diagnosis Note [id number] YANIV GARCIA MD [facility] [address] [phone] 08/09/2024 09:39:15 08/09/2024 11:07:17 Anterior epistaxis 189396026 R04.0 78-year-ol d female with a history of diabetes and hypertensi on on clopidogre l, presents today with recurrent epistaxis requiring emergency department visit and showing a drift in H&H presents today for assessment . She has not had any severe nosebleeds for the past few days. She has been able to stop the last couple at home on her own.On exam today, there is no active bleeding, there is a prominent vessel on the right anterior septum. I did cauterize this and she was observed for several minutes without any active bleeding. We had a detailed discussion on nasal humidifica tion with humidifier , saline sprays, saline jelly at night, applied to the outer nares and not with a Qtip. Using pressure and Afrin as needed for a nosebleed was discussed. Given severity of bleeds and high risk, we can reassess in a few weeks and determine need for cautery on the left. Essential hypertension 76418258 I10 Long-term current use of antiplatelet drug [id number] 33296 Z79.02 Health Concerns Section Related Observation LastModified by Organization Detai ls LastModified Time None Recorded Concern Status LastModified by Organization Details LastModified Time None Recorded Payers Encounter Date Sequence Insurance Name Policy Number Policy [employer] Covered Member ID [employer] Member ID Guarantor Name 08/09/2024 1 [facility] Celeste Abad [id number] Celeste Abad Notes Date Note Type Note Provider Name and Address Organization Details Recorded Time 08/09/2024 text/html 78 yo F with tro uble with nose bleeds in the past, most recent 5-6 years ago and had nosebleed, sneezed through the mouth and nose, packed with gauze [facility], no treatmentbleeding from both sides went back to the ED after 5 daysnow anemia, no need for transfusion a few since but able to stop them YANIV GARCIA MD [address] [place] [address], [phone], [facility] - [facility] 08/11/2024 12:36:32 OBGyn Episode No OBEpisode recorded.
--- OUTSIDE RECORDS SUMMARY | 2024-08-14 10:27 | XMS_ITS | Encounter Summary ---
Author Organization [employer] Address [address] [place] [address] 7 [place] [address] Care Team Providers Care Program Director [employer] Name Role Phone Name, Eddie GILMORE Primary Care Provider [phone] Reason for Referral * Consultation (STAT) - Closed Specialty Diagnoses / Procedures Referred By Karyn tyler Referred To Contact Otolaryngology Diagnoses Epistaxis Latanya Hoover MD [address] [place] [id number] Phone: tel: fax: [facility] [address] Phone: tel: fax: Referral ID Status Reason Start Date Expiration Date V isits Requested Visits Authorized [id number] Closed Specialty Services Required 08/02/2024 08/02/2025 1 1 Reason for Visit * Reason Comments Hospital Follow-up Encounter Details Date Type Department Care Team (Late st Contact Info) Description 08/02/2024 2:30 PM EST Office Visit [facility] [address] [place], [place] [phone] Latanya Hoover MD [address] [place], [place] [phone] Epistaxis (Primary Dx); Controlled type 2 diabetes mellitus with complication, without long-term current use of insulin (CMS/[facility]); Dietary counseling; Exercise counseling; Overweight; Anemia, unspecified type Social History Tobacco Use Types Packs/Day Years [...] your housing situation today? I have abad rbidges 02/05/[address] you li [...] AM EDT documented as of this encounter Last Filed Vital Signs Vital Sign Reading Time Taken Comments Blood Pressure 118/71 08/02/2024 2:06 PM EST Pulse 84 08/02/2024 2:06 PM EST Temperature 36.6 ??C (97.9 ??F) 08/02/2024 2 :06 PM EST Respiratory Rate 15 08/02/2024 2:06 PM EST Oxygen Saturation 96% 08/02/2024 2:0 6 PM EST Inhaled Oxygen Concentration - - Weight 70.3 kg (155 lb) 08/02/2024 2:06 PM EST per patient in wheelchair Height 154.9 cm (5' 1 ) 08/02/2024 2:0 6 PM EST Body Mass Index 29.29 08/02/2024 2:06 PM EST documented in this encounter Progress Notes * Latanya Hoover MD - 08/02/2024 2:30 PM EST SUBJECTIVE: Celeste Abad is a 78 y.o. year old female who presents for ER followup, has had five episodes ofepistaxis in the past two weeks. Two ER visits to [facility]. Accompanied by her son- Raymundo Acute Concerns: Severe nose bleeds, enough to become anemic. History of multiple cauterizations, needs ENT referralfor stat visit Humidifier in place in her bedroom, applying antibiotic Hg 13.5- >10.9 Interim Updates: ED f/u with Red team provider for ED f/u as she is not able to come to [facility] due to need to arrange transportation. 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 Velasquez in Endocrinology at [address] and emphysema by [employer] [address] Dr. Rowland at [address] Patient Active Problem List Diagnosis Allergic rhinitis Asthma Cerebellar infarction (CMS/HCC) CVA (cerebral vascular accident) (CMS/HCC) Atherosclerosis of coronary artery Controlled type 2 diabetes mellitus with complication, without long-term current use of insulin (CMS/HCC) Stable angina (CMS/HCC) CRISTINA (generalized anxiety disorder) GERD (gastroesophageal reflux disease) Glaucoma HTN (hypertension) Hyperlipidemia Overactive bladder Presence of stent in LAD coronary artery ST elevation (STEMI) myocardial infarction (CMS/HCC) Hypothyroidism Depressive disorder Contusion of right foot Abnormal nuclear stress test Anemia Lower GI bleed Rectal bleed Status post cardiac catheterization Seizure disorder (CMS/HCC) Chronic pain syndrome 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 No pertinent surgical history. No family history on file. Social History Social History Narrative Not on file Review of Systems Constitutional: Negative. HENT: Positive for nosebleeds. OBJECTIVE: Vitals: 08/02/24 1406 BP: 118/71 BP Location: Left arm Patient Position: Sitting BP Cuff Size: Adult Pulse: 84 Resp: 15 Temp: 97.9 ??F (36.6 ??C) TempSrc: Temporal SpO2: 96% Weight: 155 lb (70.3 kg) Height: 5' 1 (1.549 m) Physical Exam Vitals and nursing note reviewed. Constitutional: Appearance: Normal appearance. HENT: Head: Normocephalic and atraumatic. Nose: Comments: Erythematous bilateral internal nasal septa Cardiovascular: Rate and Rhythm: Normal rate and regular rhythm. Pulses: Normal pulses. Heart sounds: Normal heart sounds. Pulmonary: Effort: Pulmonary effort is normal. Breath sounds: Normal breath sounds. Skin: General: Skin is warm and dry. Neurological: General: No focal deficit present. Mental Status: She is alert and oriented to person, place, and time. Psychiatric: Mood and Affect: Mood normal. Behavior: Behavior normal. ASSESSMENT/PLAN Problem List Items Addressed This Visit Controlled type 2 diabetes mellitus with complication, without long-term current use of insulin ([facility]) Relevant Orders POCT Glucose (Completed) POCT HGB A1C (Completed) Anemia Overview 11/24/22 - EGD/colo: Impression: 1. Normal esophagus 2. Large Hill grade IV hiatal hernia 3. Normal stomach (biopsy) 4. Normal duodenum (biopsy) 5. Normal colon and terminal ileum mucosa 6. Diverticulosis 7. Internal hemorrhoids CTE 01/16/23: Severe diverticulosis of the colon. Moderate size hiatal hernia. Small left renal stone. Areas of renal cortical thinning or scarring, left greater than right. 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 Current Assessment & Plan In this instance, normocytic anemia likely due to large recent blood loss Epistaxis - Primary Current Assessment & Plan Will refer stat to ENT for cauterization, possible CEMENT KILN OPERATOR scope Recommend anterior nasal packing if she is bleeding heavily Relevant Orders Referral to ENT Other Visit Diagnoses Dietary counseling Exercise counseling Overweight Follow Up: per PCP recall or sooner prn Allergies Allergen Reactions Nexium [Esomeprazole] Hives Within past month she was on for about 3 days and developed SOB, hives and vomiting Gluten Meal Unknown Gramineae Pollens Runny nose Latex Other Reaction(s): ekg stickies cused bleeding on skin after several days Seafood [Shellfish Allergy] Unknown scallops Current Outpatient Medications: nitrofurantoin, macrocrystal-monohydrate, (Macrobid) 100 MG capsule, Take 1 capsule by mouth 2 times daily., Disp: , Rfl: acetaminophen (Tylenol 8 Hour) 650 MG ER tablet, Take 2 tablets by oral route every 8 hours as needed for pain, Disp: , Rfl: albuterol 108 (90 Base) MCG/ACT inhaler, INHALE 2 PUFFS INTO THE LUNGS EVERY 4-6 HOURS NEEDED, Disp: 8.5 g, Rfl: 1 amLODIPine (Norvasc) 2.5 MG tablet, TAKE 1 TABLET BY MOUTH ONCE DAILY, Disp: , Rfl: atorvastatin (Lipitor) 40 MG tablet, TAKE 1 TABLET BY MOUTH EVERY MORNING, Disp: 30 tablet, Rfl: 5 betamethasone valerate (Valisone) 0.1 % cream, APPLY A THIN LAYER ONTO THE SKIN TO THE AFFECTED AREAS ONCE DAILY, Disp: 15 g, Rfl: 0 biotin 5 MG capsule, OTC daily, Disp: , Rfl: Blood Glucose Monitoring Suppl ([employer] Verio Flex System) w/Device kit, USE DIRECTED, Disp: , Rfl: cholecalciferol (Vitamin D-3) 50 MCG (2000 UT) tablet, Take 2,000 Units by mouth Once per day., Disp: 90 tablet, Rfl: 2 clopidogrel (Plavix) 75 MG tablet, Take 75 mg by mouth in the morning., Disp: , Rfl: cyanocobalamin (Vitamin B-12) 1000 MCG tablet, TAKE 1 TABLET BY MOUTH EVERY DAY, Disp: 90 tablet, Rfl: 1 famotidine (Pepcid) 40 MG tablet, Take 1 tablet (40 mg) by mouth Once per day. OTC, Disp: 90 tablet, Rfl: 2 glucose blood ([employer] Verio) test strip, CHECK BY FINGERSTICK TWICE DAILY, Disp: 50 strip, Rfl: 11 Homeopathic Products (Arnicare) gel, Applied twice daily, Disp: , Rfl: Lancets ([employer] Delica Plus [id number]) misc, USE TO CHECK BLOOD SUGAR TWICE A DAY, Disp: 100 each, Rfl: 5 latanoprost (Xalatan) 0.005 % ophthalmic solution, , Disp: , Rfl: levETIRAcetam (Keppra) 750 MG tablet, Take 1 tablet by mouth 2 times daily., Disp: , Rfl: levothyroxine (Synthroid, Levoxyl) 112 MCG tablet, TAKE 1 TABLET BY MOUTH EVERY DAY, Disp: 90 tablet, Rfl: 1 loperamide (Imodium A-D) 2 MG tablet, take 1 tablet by oral route after 1st loose stool and 1 tablet (2 mg) after each next bowel movement; do not exceed 16 mg in 24hrs, Disp: , Rfl: magnesium oxide 500 MG tablet, OTC daily, Disp: , Rfl: melatonin 5 MG tablet, Take 2 tablets by mouth Once per day. At bedtime, Disp: , Rfl: metFORMIN (Glucophage) 500 MG tablet, TAKE 1 TABLET BY MOUTH TWICE DAILY, Disp: 180 tablet, Rfl: 1 MILK THISTLE EXTRACT PO, OTC daily, Disp: , Rfl: Myrbetriq 50 MG 24 hr tablet, TAKE ONE TABLET BY MOUTH EVERY DAY DO NOT CRUSH OR CHEW, Disp: , Rfl: naloxone (Narcan) 4 mg/0.1 mL nasal spray, Administer 1 spray (4 mg) into affected nostril(s) if needed for opioid reversal. May repeat every 2-3 minutes if needed, alternating nostrils, until medical assistance becomes available., Disp: 2 each, Rfl: 2 oral electrolytes replacement (Pedialyte) solution, 10 ml po q 30 min prn vomiting or diarrhea, Disp: 1000 mL, Rfl: 1 oxyCODONE-acetaminophen (Percocet) 5-325 MG tablet, Take 1 tablet by mouth every 8 (eight) hours ifneeded for severe pain for up to 28 days. Do not start before July 15, 2024., Disp: 84 tablet, Rfl: 0 pantoprazole (ProtoNix) 40 MG EC tablet, Take 40 mg by mouth Once per day., Disp: , Rfl: Polyethyl Glycol-Propyl Glycol (Systane) 0.4-0.3 % solution, 1 drop in both eyes twice daily, Disp:, Rfl: simethicone (Mylicon,Gas-X) 125 MG capsule, OTC daily PRN gas/bloating, Disp: , Rfl: trospium (Sanctura XR) 60 MG 24 hour capsule, Take 60 mg by mouth Once per day., Disp: , Rfl: Zinc Acetate 50 MG capsule, OTC 3 times daily, Disp: , Rfl: documented in this encounter Miscellaneous Notes * Assessment & Plan Note - Latanya Hoover MD - 08/02/2024 3:41 PM ESTAssociated Problem(s): Anemia In this instance, normocytic anemia likely due to large recent blood loss * Assessment & Plan Note - Latanya Hoover MD - 08/02/2024 3:41 PM ESTAssociated Problem(s): Epistaxis Will refer stat to ENT for cauterization, possible CEMENT KILN OPERATOR scope Recommend anterior nasal packing if she is bleeding heavily documented in this encounter Plan of Treatment Upcoming Encounters Date Type Department Care Team (Late st Contact Info) Description 10/29/2024 2:30 PM EDT Office Visit [facility] [address] [place] [address] Name, MD Eddie [address] [place] [address] Scheduled Referrals Name Type Priority Associated Diagnoses Orde r Schedule Referral to ENT Outpatient Referral STAT Epistaxis Expected: 08/02/2024 (Approximate), Expires: 08/02/2025 documented as of this encounter Procedures Procedure Name Priority Date/Time Associated Diagnosis Comments POCT GLYCATED HEMOGLOBIN, TOTAL Routine 08/02/2024 2:14 PM EST Controlled type 2 diabetes mellitus with complication, without long-term current use of insulin ([facility]) POCT GLUCOSE Routine 08/02/2024 2:14 PM EST Controlled type 2 diabetes mellitus with complication, without long-term current use of insulin ([facility]) documented in this encounter Results * (ABNORMAL) POCT HGB A1C (08/02/2024 2:14 PM EST) Hemoglobin A1C 6.2(A) 4.0 - 6.0 % QC Media Lot # [id number] Lot# Expiration Date Blood 08/02/2024 2:14 PM EST us Latanya Hoover MD POINT OF CARE TEST ENTER/EDIT ORDERABLES Final Result * POCT Glucose (08/02/2024 2:14 PM EST) Glucose Blood, POC 131 60 - 200 mg/dL QC Media Lot # [id number] Lot# Expiration Date ,334 Blood Capillary blood specimen / Unknown 08/02/2024 2:14 PM EST Latanya Hoover MD POINT OF CARE TEST ENTER/EDIT ORDERABLES Edited Result - Final documented in this encounter Visit Diagnoses Diagnosis Epistaxis- Primary Controlled type 2 diabetes mellitus with complication, without long-term current use of insulin ([facility]) Dietary counseling Dietary surveillance and counseling Exercise counseling Overweight Anemia, unspecified type documented in this encounter Additional Health Concerns Assessment Noted Time PHQ-9 Depression Total Score: 9 05/10/20 24 11:56 AM EST documented as of this encounter Care Teams Program Director [employer] Relationship Specialty Start Date End Date Name, MD Eddie [address] [place] [address] PCP - General Family Medicine 09/16/15 Jerica Sim 07/01/24 documented as of this encounter
--- OUTSIDE RECORDS SUMMARY | 2024-08-14 10:27 | XMS_ITS | Continuity of Care Document ---
Author Organization [facility] [employer] [facility] Address [address], [address] [place] [address]- Care Team Providers Care Underwriting Analyst Name Role Phone Name Eddie GILMORE Primary Care Physician [id number] Date(s): 07/11/24 - 08/10/24 [facility] [address], [address] [place] [address]- Attending Physician: Mario Moyer Admitting Physician: Mario Moyer Referring Physician: trMario Encounter Type: Triage Allergies, Adverse Reactions, Alerts Substance Criticality Severity Reaction Reaction Severity Status Glutens Resolved Latex ekg stickies cu sed bleeding on skin after several days Active Pollen runny nose Active Other Food Allergy scallops A ctive Medications amLODIPine 2.5 mg oral tablet 2.5 mg, 1, tablet, By Mouth, Daily in AM, # 30 tablet, Refills 0, Maintenance, 04/20/21 1:27:00 PM EDT, Partial fill upon patient request if the prescription is for a schedule II opioid drug. Start Date: 04/20/21 Status: Ordered Quantity: 30.0 Unit: tablet Repeat number: 1 arnica topical gel 1 application, Topically, 2 times a day, PRN as needed for muscle pain, # 45 Gm, 0 Refills, Maintenance, 06/02/22 8:41:00 AM EST, Gel, Partial fill upon patient request if the prescription is for a schedule II opioid drug. Start Date: 06/02/22 Status: Ordered Quantity: 45.0 Unit: g Repeat number: 1 atorvastatin 40 mg oral tablet 1 tablet = 40 mg, By Mouth, Daily in AM, 0 Refills, Maintenance, 06/28/22 11:03:00 AM EST, Partial fill upon patient request if the prescription is for a schedule II opioid drug. Start Date: 06/28/22 Status: Ordered Repeat number: 1 Benefiber = 4 Gm, By Mouth, Daily, 0 Refills, Maintenance, 07/24/24 11:23:00 AM EST, Partial fill upon patient request if the prescription is for a schedule II opioid drug. Start Date: 07/24/24 Status: Ordered Repeat number: 1 Betamethasone Valerate 0.1% Topical 1 application, Topically, 2 times a day, PRN Other, 0 Refills, Maintenance, Cream Start Date: 06/02/22 Status: Ordered Repeat number: 1 biotin 5000 mcg oral capsule By Mouth, Daily, 0 Refills, Maintenance, 06/02/22 8:44:00 AM EST, Partial fill upon patient requestif the prescription is for a schedule II opioid drug. Start Date: 06/02/22 Status: Ordered Repeat number: 1 Calcium Chloride \60 mg, By Mouth, Daily, 0 Refills, Maintenance Start Date: 01/19/24 Status: Ordered Repeat number: 1 clopidogrel 75 mg oral tablet 75 mg, 1, tablet, By Mouth, Daily in AM, # 30 tablet, Refills 0, Maintenance, 06/23/23 4:38:00 PM EST, Partial fill upon patient request if the prescription is for a schedule II opioid drug. Start Date: 06/23/23 Status: Ordered Quantity: 30.0 Unit: tablet Repeat number: 1 Famotidine = 40 mg, By Mouth, Daily, 0 Refills, Maintenance, 01/19/24 12:36:00 PM EDT, Partial fill upon patientrequest if the prescription is for a schedule II opioid drug. Start Date: 01/19/24 Status: Ordered Repeat number: 1 ferrous sulfate 325 mg oral tablet 1 tablet = 325 mg, By Mouth, Daily, # 90 tablet, 0 Refills, Maintenance, 04/19/22 8:22:00 AM EDT, Tablet, Partial fill upon patient request if the prescription is for a schedule II opioid drug. Start Date: 04/19/22 Status: Ordered Quantity: 90.0 Unit: tablet Repeat number: 1 Imodium Capsule 2 mg, By Mouth, Every 3 hours, PRN, Refills 0, Maintenance, Loose Stool, 06/02/22 8:43:00 AM EST, Partial fill upon patient request if the prescription is for a schedule II opioid drug. Start Date: 06/02/22 Status: Ordered Repeat number: 1 Latanoprost Ophthalmic 1 drop, Eyes, Both, Daily at bedtime, 0 Refills, Maintenance, 08/17/20 4:53:00 PM EST, Partial fill upon patient request if the prescription is for a schedule II opioid drug. Start Date: 08/17/20 Status: Ordered Repeat number: 1 levETIRAcetam 750 mg oral tablet 1 tablet = 750 mg, By Mouth, 2 times a day, 0 Refills, Maintenance, 10/26/22 11:12:00 AM EDT, Partial fill upon patient request if the prescription is for a schedule II opioid drug. Start Date: 10/26/22 Status: Ordered Repeat number: 1 levothyroxine 112 mcg (0.112 mg) oral capsule 1 capsule = 112 mcg, By Mouth, Daily, 0 Refills, Maintenance, 10/06/21 9:22:00 AM EDT, Partial fill upon patient request if the prescription is for a schedule II opioid drug. Start Date: 10/06/21 Status: Ordered Repeat number: 1 Magnesium Oxide = 500 mg, By Mouth, Daily at bedtime, 0 Refills, Maintenance, 07/24/24 11:21:00 AM EST, Partial fill upon patient request if the prescription is for a schedule II opioid drug. Start Date: 07/24/24 Status: Ordered Repeat number: 1 melatonin 10 mg oral capsule 1 capsule = 10 mg, By Mouth, Daily at bedtime, 0 Refills, Maintenance, 04/20/21 1:31:00 PM EDT, Partial fill upon patient request if the prescription is for a schedule II opioid drug. Start Date: 04/20/21 Status: Ordered Repeat number: 1 metFORMIN 500 mg oral tablet 1 tablet = 500 mg, By Mouth, 2 times a day, with meals, # 30 tablet, 0 Refills, Maintenance, 04/20/21 1:31:00 PM EDT, Tablet, Partial fill upon patient request if the prescription is for a schedule IIopioid drug. Start Date: 04/20/21 Status: Ordered Quantity: 30.0 Unit: tablet Repeat number: 1 Milk Thistle 1 capsule, By Mouth, Daily, 0 Refills, Maintenance, 04/20/21 1:32:00 PM EDT, Partial fill upon patient request if the prescription is for a schedule II opioid drug. Start Date: 04/20/21 Status: Ordered Repeat number: 1 Miscellaneous Rx qasim 2 capsules, By Mouth, Daily, 0 Refills, Maintenance, 01/19/24 12:42:00 PM EDT Start Date: 01/19/24 Status: Ordered Repeat number: 1 Miscellaneous Rx cranberry pills 1 pill, By Mouth, 2 times a day, 0 Refills, Maintenance, 01/19/24 12:43:00 PM EDT Start Date: 01/19/24 Status: Ordered Repeat number: 1 Myrbetriq 50 mg oral tablet, extended release See Instructions, TAKE ONE TABLET BY MOUTH EVERY DAY DO NOT CRUSH OR CHEW, # 30 tablet, 11 Refills,Maintenance, 03/28/24 2:39:00 PM EDT, [facility], 162, cm, 02/20/24 13:24:00 EDT, Height, 70.3, kg, 02/20/24 13:24:00 EDT, Dry Weight Start Date: 03/28/24 Status: Ordered Quantity: 30.0 Unit: tablet Repeat number: 12 Omeprazole = 20 mg, By Mouth, 2 times a day, 0 Refills, Maintenance, 07/24/24 11:22:00 AM EST, Partial fill uponpatient request if the prescription is for a schedule II opioid drug. Start Date: 07/24/24 Status: Ordered Repeat number: 1 pantoprazole 40 mg oral delayed release tablet 1 tablet = 40 mg, By Mouth, Daily in AM, # 30 tablet, 0 Refills, Maintenance, 06/23/23 4:29:00 PM EST, EC Tablet Start Date: 06/23/23 Status: Ordered Quantity: 30.0 Unit: tablet Repeat number: 1 Percocet 5 mg-325 mg oral tablet 1, tablet, By Mouth, 3 times a day, Refills 0, Tot. Refills 0, Maintenance, 07/24/24 11:22:00 AM EST,Partial fill upon patient request if the prescription is for a schedule II opioid drug. Start Date: 07/24/24 Status: Ordered Repeat number: 1 simethicone 80 mg oral tablet, chewable 80 mg, 1, tablet, 3 times a day, PRN, Refills 0, Maintenance, Indigestion, 06/02/22 8:44:00 AM EST,Partial fill upon patient request if the prescription is for a schedule II opioid drug. Start Date: 06/02/22 Status: Ordered Repeat number: 1 Systane ophthalmic solution 1 drops, Eyes, Both, 2 times a day, PRN for dry eyes, # 5 mL, 0 Refills, Maintenance, 04/19/22 10:19:00 PM EDT, Solution, Partial fill upon patient request if the prescription is for a schedule II opioid drug. Start Date: 04/19/22 Status: Ordered Quantity: 5.0 Unit: mL Repeat number: 1 trospium 60 mg oral capsule, extended release See Instructions, TAKE (1) CAPSULE BY MOUTH EVERY DAY, # 28 capsule, 9 Refills, Maintenance, 11/30/23 12:45:00 PM EDT, [facility], 155, cm, 06/29/23 8:12:00 EST, Height, 59, kg, 07/13/2410:25:00 EST, Dry Weight Start Date: 11/30/23 Status: Ordered Quantity: 28.0 Unit: capsule Repeat number: 1 Tylenol 8 Hour 650 mg oral tablet, extended release 2 tablet = 1,300 mg, By Mouth, Every 8 hours, PRN as needed for pain, # 24 tablet, 0 Refills, Maintenance, 04/19/22 8:22:00 AM EDT, ER Tablet, Partial fill upon patient request if the prescription is for a schedule II opioid drug. Start Date: 04/19/22 Status: Ordered Quantity: 24.0 Unit: tablet Repeat number: 1 Ventolin HFA 108 mcg/inh inhalation aerosol with adapter 1 puffs, Inhalation, 4 times a day, PRN for wheezing, # 18 Gm, 0 Refills, Maintenance, 01/11/16 1:39:59 PM EDT, Aerosol Start Date: 01/11/16 Status: Ordered Quantity: 18.0 Unit: g Repeat number: 1 Vitamin C = 500 mg, By Mouth, Daily, 0 Refills, Maintenance, 07/24/24 11:24:00 AM EST, Partial fill upon patient request if the prescription is for a schedule II opioid drug. Start Date: 07/24/24 Status: Ordered Repeat number: 1 Vitamin D3 2000 intl units oral tablet 1 tablet = 50 mcg, By Mouth, Daily, 0 Refills, Maintenance, 04/20/21 1:28:00 PM EDT, Partial fill upon patient request if the prescription is for a schedule II opioid drug. Start Date: 04/20/21 Status: Ordered Repeat number: 1 Vitamin E = 400 International_Units, By Mouth, Daily, 0 Refills, Maintenance, 04/20/21 1:43:00 PM EDT, Partialfill upon patient request if the prescription is for a schedule II opioid drug. Start Date: 04/20/21 Status: Ordered Repeat number: 1 zinc (as acetate) 50 mg oral capsule 1 capsule = 50 mg, By Mouth, 3 times a day, 0 Refills, Maintenance, 10/06/21 9:23:00 AM EDT, Partialfill upon patient request if the prescription is for a schedule II opioid drug. Start Date: 10/06/21 Status: Ordered Repeat number: 1 Problem List Condition Confirmation Course Effective Dates Status H ealth Status Informant Asthma Confirmed Active Cerebellar stroke Confirmed Active Closed fracture of humerus Confirmed Active Coronary artery disease involving [place] coronary artery of [place] heart without angina pectoris Confirmed Active COVID-19 1 Confirmed 10/06/21 Active Depression Confirmed Active DM (diabetes mellitus) Confirmed Active Thyroid disease Confirmed Active Medication side effects Confirmed Active Essential hypertension Confirmed Active Fall Confirmed Active Fibromyalgia Confirmed Active GERD (gastroesophageal reflux disease) Confirmed Active CRISTINA (generalized anxiety disorder) Confirmed Active Grief Confirmed Active History of Arcos's esophagus Confirmed Active History of CVA (cerebrovascular accident) Confirmed Active History of colonoscopy Confirmed Active HLD (hyperlipidemia) Confirmed Active HTN (hypertension) Confirmed Active Hypothyroidism Confirmed Active Renal stones Confirmed Active Lumbosacral radiculopathy Confirmed Active ST elevation (STEMI) myocardial infarction Confirmed Active Overactive bladder Confirmed Active Refusal of statin medication by patient Confirmed Active Presence of stent in LAD coronary artery Confirmed Active Stented coronary artery Confirmed Active Controlled type 2 diabetes mellitus with complication, without long-term current use of insulin Confirmed Active Urge incontinence of urine Confirmed Active 1Problem added by Discern Expert Social History Social History Type Response Smoking Status Never (less than 100 in lifetime) entered on: 03/17/20 Sex Sex Representation Female (finding) Laboratory * Event Display: Non Lab Results Authored Date: Patient Care team information Care Team Personnel Name: Henrietta Rodríguez RN Position: [facility] Office Staff Member Role: Primary Care Nurse Name: Ria Osuna RN Position: [facility] RN Member Role: Primary Care Nurse Name: Eddie Marshall MD Position: [facility] Outreach Member Role: PCP Address: [address] [place] [id number] [place] Telecom: Name: Julianne Husain RN Position: [facility] RN Supv Member Role: Primary Care Nurse Name: Cristal Lee Position: [facility] Outreach Member Role: Lifetime Consulting Physician Name: Johanne Perez RN Position: [facility] RN Member Role: Primary Care Nurse Care Team Related Persons Name: KALIA BRAUN Insurance Providers Guarantor name: EARNEST JESSICA Health Plan Information #: 1 Payer: [employer] Member Number: NA Policy Number: NA Group Number: NA Health Plan Information #: 2 Payer: [facility] Member Number: NA Policy Number: NA Group Number: NA
--- OUTSIDE RECORDS SUMMARY | 2024-08-14 10:27 | XMS_ITS | Encounter Summary ---
Author Organization [employer] Address [address] [place] [address] 7 [place] [address] Care Team Providers Care Nurses Medical Assistants Phlebotomists Name Role Phone Name, Eddie GILMORE Primary Care Provider [phone] Reason for Visit * Reason Onset Date Comments Appointment Request 08/13/2024 Encounter Details Date Type Department Care Team ([facility] st Contact Info) Description 08/13/2024 Telephone [facility] [address] [place], [place] [phone] Name, MD Eddie [address] [place] [address] Appointment Request Social History Tobacco Use Types Packs/Day Years [...] encounter Miscellaneous Notes * Telephone Encounter - Will Badillo - 08/13/2024 8:23 AM EST Tc from pt requesting to r/s Apt from 08/13/24. Contact pt at [phone] documented in this encounter Plan of Treatment Upcoming Encounters Date Type Department Care Team (Late st Contact Info) Description 10/29/2024 2:30 PM EDT Office Visit [facility] [address] [place] [phone] Name, MD Eddie [address] [place] [address] documented as of this encounter Visit Diagnoses Not on filedocumented in this encounter Additional Health Concerns Assessment Noted Time PHQ-9 Depression Total Score: 9 05/10/20 24 11:56 AM EST documented as of this encounter Care Teams Nurses Medical Assistants Phlebotomists Relationship Specialty Start Date End Date Name, MD Eddie [address] [place] [phone] PCP - General Family Medicine [facility] documented as of this encounter
--- OUTSIDE RECORDS SUMMARY | 2024-08-14 10:27 | XMS_ITS | Encounter Summary ---
Author Organization [employer] Address [address] [facility] 7t [place] [address] Care Team Providers Care Manager Food Safety Name Role Phone Name, Eddie GILMORE Primary Care Provider [phone] Reason for Visit * Reason Onset Date Comments september recalls 08/09/2024 Encounter Details Date Type Department Care Team ([facility] st Contact Info) Description 08/09/2024 Telephone [facility] [address] [place], [place] [phone] Sophie Marei MA september recalls Social History Tobacco Use Types Packs/Day Years [...] encounter Miscellaneous Notes * Telephone Encounter - Sophie Marie MA - 08/09/2024 1:24 PM EST Telephone call to patient to schedule a recall appointment. No answer, Left voicemail to return call to clinic.. Recall letter sent. Visit type: Follow up Appointment notes: DM due: September With: Name Please schedule appointment above if patient returns call documented in this encounter Plan of Treatment Upcoming Encounters Date Type Department Care Team (Late st Contact Info) Description 10/29/2024 2:30 PM EDT Office Visit [facility] [address] [place] [address] Name, MD Eddie [address] [place] [address] documented as of this encounter Visit Diagnoses Not on filedocumented in this encounter Additional Health Concerns Assessment Noted Time PHQ-9 Depression Total Score: 9 05/10/20 24 11:56 AM EST documented as of this encounter Care Teams Manager Food Safety Relationship Specialty Start Date End Date Name, MD Eddie [address] [place] [phone] PCP - General Family Medicine 09/16/15 [facility] 07/01/24 documented as of this encounter
--- OUTSIDE RECORDS SUMMARY | 2024-08-14 10:27 | XMS_ITS | Continuity of Care Document ---
Author Organization [facility] Address [address] [facility], [address] [place] [address]- Care Team Providers Care Carver And Checkerer Specials Name Role Phone Name Eddie GILMORE Primary Care Physician Encounter [facility] [id number] Date(s): 03/26/24 - 07/24/24 [facility] [address] [facility] [facility], 4th [place] [address]- Attending Physician: Not on Staff, Attending MD Referring Physician: Name Eddie GILMORE Encounter Type: Pre-OutPatient One Time Allergies, Adverse Reactions, Alerts Substance Criticality Severity [...] tablet, 11 Refills,Maintenance, 03/28/24 2:39:00 PM EDT, [facility], 162, cm, 02/20/24 13:24:00 EDT, [...] Refills, Maintenance, 11/30/23 12:45:00 PM EDT, [facility], 155, cm, 06/29/23 8:12:00 EST, Height, 59, [...] humerus Confirmed Active Coronary artery disease involving [place] coronary artery of [place] heart without angina pectoris Confirmed Active COVID-19 [...] on: 03/17/20 Sex Sex Representation Female (finding) Patient Care team information Care Team Personnel Name: Henrietta Rodríguez RN Position: [facility] Office Staff Member Role: Primary Care Nurse Name: Ria Osuna RN Position: [facility] RN Member Role: Primary Care Nurse Name: Name Eddie GILMORE Position: [facility] Outreach Member Role: PCP Address: [address] [place] [address] Telecom: Name: Julianne Husain RN Position: [facility] RN Supv Member Role: Primary Care Nurse Name: Cristal Lee Position: [facility] Outreach Member Role: Lifetime Consulting Physician Name: Johanne Perez RN Position: [facility] RN Member Role: Primary Care Nurse Care Team Related Persons Name: KALIA BRAUN Insurance Providers Guarantor name: EARNEST JESSICA [employer] Plan Information #: 1 Payer: [employer] Member Number: [id number] Policy Number: NA Group Number: NA Health Plan Information #: 2 Payer: [employer] Member Number: [id number] Policy Number: NA Group Number: NA Health Plan Information #: [address] [facility] Member Number: NA Policy Number: NA Group Number: NA
--- OUTSIDE RECORDS SUMMARY | 2024-08-14 10:27 | XMS_ITS | Encounter Summary ---
Author Organization [employer] Address [address] [facility] 7t [place] [address] Care Team Providers Care Digital Asset Coordinator Name Role Phone Name, Eddie GILMORE Primary Care Provider [phone] Reason for Visit * Reason Onset Date Comments september recalls 08/09/2024 Encounter Details Date Type Department Care Team ([facility] st Contact Info) Description 08/09/2024 Telephone [facility] [address] [place], [place] [phone] Sophie Marie MA september recalls Social History Tobacco Use [...] Encounter - Sophie Marie MA - 08/09/2024 1:35 PM EST Telephone call to patient to schedule the following recall: Visit type: Follow up Appointment notes: DM Patient agree to appointment on 10/29/24 at 2:30 PM with Name. documented in this encounter Plan of Treatment Upcoming Encounters Date Type Department Care Team (Late st Contact Info) Description 10/29/2024 2:30 PM EDT Office Visit [facility] [address] [place] [phone] NameEddie MD [address] [place] [address] documented as of this encounter Visit Diagnoses Not on filedocumented in this encounter Additional Health Concerns Assessment Noted Time PHQ-9 Depression Total Score: 9 05/10/20 24 11:56 AM EST documented as of this encounter Care Teams Digital Asset Coordinator Relationship Specialty Start Date End Date NameEddie MD [address] [place] [phone] PCP - General Family Medicine [facility] documented as of this encounter
--- OUTSIDE RECORDS SUMMARY | 2024-08-14 10:27 | XMS_ITS | Encounter Summary ---
Author Organization [employer] Address [address] [place] [address] 7 [place] [address] Care Team Providers Care Parts Remover Name Role Phone Name, Eddie GILMORE Primary Care Provider [phone] Reason for Visit * Reason Onset Date Comments Med Refill 08/09/2024 Encounter Details Date Type Department Care Team ([facility] st Contact Info) Description 08/09/2024 Refill [facility] [address] [place], [place] [phone] Name, MD Eddie [address] [place], [place] [phone] Chronic pain syndrome Social History Tobacco Use [...] * Telephone Encounter - Clari Moss - 08/09/2024 1:22 PM EST TC from pt requesting medication refill. Medications needing refill : oxyCODONE-acetaminophen (Percocet) 5-325 MG tablet To be sent to: [facility] documented in this encounter Plan of Treatment Upcoming Encounters Date Type Department Care Team (Late st Contact Info) Description 10/29/2024 2:30 PM EDT Office Visit [facility] [address] [place] [phone] Name, MD Eddie [address] [place] [phone] documented as of this encounter Visit Diagnoses Diagnosis Chronic pain syndrome documented in this encounter Additional Health Concerns Assessment Noted Time PHQ-9 Depression Total Score: 9 05/10/20 24 11:56 AM EST documented as of this encounter Care Teams Parts Remover Relationship Specialty Start Date End Date Eddie Marshall MD [address] [place] [phone] PCP - General Family Medicine 09/16/15 [facility] 07/01/24 documented as of this encounter
--- OUTSIDE RECORDS SUMMARY | 2024-08-14 10:27 | XMS_ITS | Encounter Summary ---
Author Organization [employer] Address [address] [facility] 7t [place] [address] Care Team Providers Care Circulation Supervisor Name Role Phone Name, Eddie GILMORE Primary Care Provider [phone] Encounter Details Date Type Department Care Team (Late st Contact Info) Description 07/16/2024 9:45 AM EST Office Visit [facility] [address] [place] [address] Mckenzie Trent, JENNIFER [address] [place] [address] Chronic pain syndrome (Primary Dx); snf (current) use of opiate analgesic Social History [...] this encounter Progress Notes * Mckenzie Trent, REVENUE ACCOUNTANT - 07/16/2024 9:45 AM EST Subjective: Celeste [...] up in 1-2 months as desired Other snf (current) use of opiate analgesic Overview Dx: chronic pain syndrome/back pain Rx: Percocet 5/325 every 12 hours Last SEAT TRIMMER agreement:03/22/24 Tier II (visit every 3 months) Additional considerations: mobility issues, using scooter Relevant Orders POCT ADRIAN-14 Urine Drug Screen (Completed) Follow up: 1-3 months for [facility]. Follow up as scheduled with PCP, sooner as needed. * Estrellita Crenshaw RN - 07/16/2024 9:45 AM EST ..SEAT TRIMMER freezer unloader: PDMP reviewed today. Last fill date: 06/17/24 [...] Description 10/29/2024 2:30 PM EDT Office Visit [facility] [address] [place] [address] Name, MD Eddie [address] [place] [address] documented as of this encounter Procedures Procedure Name Priority Date/Time Associated Diagnosis Comments POCT ADRIAN-14 URINE DRUG SCREEN Routine 07/16/2024 1:49 PM EST snf (current) use of opiate analgesic documented in this encounter Results * POCT ADRIAN-14 Urine Drug Screen (07/16/2024 1:49 PM EST) Oxycodone Screen, Urine Positive Urine Urine specimen obtained by clean catch procedure / Unknown 07/16/2024 1:49 PM EST Mckenzie Twan REVENUE ACCOUNTANT POINT OF CARE TEST ENTER/EDIT ORDERABLES Final Result documented in this encounter Visit Diagnoses Diagnosis Chronic pain syndrome- Primary snf (current) use of opiate analgesic documented in this encounter Additional Health Concerns Assessment Noted Time PHQ-9 Depression Total Score: 9 05/10/20 24 11:56 AM EST documented as of this encounter Care Teams Circulation Supervisor Relationship Specialty Start Date End Date Name, [place] [address] PCP - General Family Medicine 09/16/15 [facility] 07/01/24 documented as of this encounter
--- OUTSIDE RECORDS SUMMARY | 2024-08-14 10:27 | XMS_ITS | Encounter Summary ---
Author Organization [employer] Address [address] [place] [address] 7 [place] [address] Care Team Providers Care Log Handling Equipment Operator Name Role Phone Name, Eddie GILMORE Primary Care Provider [phone] Reason for Visit * Reason Comments Med Refill Encounter Details Date Type Department Care Team (Late st Contact Info) Description 07/17/2024 Refill [facility] MEDICINE [address] [place], [place] [phone] Name, MD Eddie [address] [place], [place] [phone] Social History Tobacco Use Types Packs/Day Years [...] Description 10/29/2024 2:30 PM EDT Office Visit [facility] MEDICINE [address] [place] [address] Name, MD Eddie [address] [place] [address] documented as of this encounter Visit Diagnoses Not on filedocumented in this encounter Additional Health Concerns Assessment Noted Time PHQ-9 Depression Total Score: 9 05/10/20 24 11:56 AM EST documented as of this encounter Care Teams Log Handling Equipment Operator Relationship Specialty Start Date End Date NameEddie MD [address] [place] [address] PCP - General Family [facility] documented as of this encounter
--- OUTSIDE RECORDS SUMMARY | 2024-08-14 10:27 | XMS_ITS | Encounter Summary ---
Author Organization [employer] Address [address] [facility] 7t [place] [address] Care Team Providers Care Spiritual Care Coordinator Name Role Phone Name, Eddie GILMORE Primary Care Provider [phone] Encounter Details Date Type Department Care Team (Latest Contact Info) Description 08/02/2024 Travel Social History Tobacco Use Types Packs/Day [...] 2:30 PM EDT Office Visit [facility] MEDICINE [address] [place] [phone] Name, MD Eddie [address] [place] [phone] documented as of this encounter Visit Diagnoses Not on filedocumented in this encounter Additional Health Concerns Assessment Noted Time PHQ-9 Depression Total Score: 9 05/10/20 24 11:56 AM EST documented as of this encounter Care Teams Spiritual Care Coordinator Relationship Specialty Start Date End Date Name, MD Eddie [address] [place] [phone] PCP - General Family Medicine 09/16/15 [facility] 07/01/24 documented as of this encounter
--- OUTSIDE RECORDS SUMMARY | 2024-08-14 10:27 | XMS_ITS | Encounter Summary ---
Author Organization [employer] Address [address] [place] [address] 7t [place] [address] Care Team Providers Care Claims Adjuster Name Role Phone Name, Eddie GILMORE Primary Care Provider [phone] Encounter Details Date Type Department Care Team (Late st Contact Info) Description 07/16/2024 Orders Only [facility] External Provider, [facility] Social History Tobacco Use Types Packs/Day Years [...] Description 10/29/2024 2:30 PM EDT Office Visit [facility] MEDICINE [address] [place] [address] Name, MD Eddie [address] [place] [address] documented as of this encounter Procedures Procedure [...] EST Narrative 07/16/2024 7:07 PM EST ? [facility] ?[address] ?[place] [address] ?XRay Report ? Signed ? Patient: Jenniffer,Celeste ?MR#: [id number] ?? 4 ? : 1945 ?Acct:[id number] ? Age/Sex: 78 / F ?ADM Date: 07/16/24 ? Loc: HO.ED ? Attending Dr: ? Ordering Physician: Rhea Ken ?? Date of Service: 07/16/24 ?? Procedure(s): XR KUB ?? Accession Number(s): [id number] ? cc: Rhea Ken; Name,Eddie GILMORE ? [...] ? DD/ 06 ? TD/TT: 07/16/241906 ? Receiver Bulk System: ? Procedure Note Sahil Tellez - 07/16/2024 [place] [address] XRay Report Signed Patient: Celeste AbadMR#: [id number] 4 : 1945cct:[id number] Age/Sex: 78 / FADM Date: 07/16/24 Loc: HO.ED Attending Dr: Ordering Physician: Rhea Ken Date of Service: 07/16/24 Procedure(s): XR KUB Accession Number(s): [id number] cc: Rhea Ken; Name,Eddie GILMORE CLINICAL HISTORY: [...] in OV> 07/16/241906 DD/ 06 TD/TT: 07/16/241906 Receiver Bulk System: [facility] External Provider IMG XR PROCEDURES Final Result * SARS-CoV-2 RNA, Influenza A/B, and RSV RNA, Ql NAAT (07/16/2024 7:06 PM EST) Influenza A PCR NEGATIVE Negative [facility] Influenza B PCR NEGATIVE Negative [facility] Resp Syncy Virus RNA Qual PCR NEGATIVE Negative [facility] SARS COV2 PCR NEGATIVE Negative [facility] Comment:All test results mus t be [...] use by authorized laboratories.Testing performed on the [employer] GeneXpert utilizingreal-time RT-PCR.All SARS CoV2 and positive influenza A/B results arereported to [facility]. 07/16/2024 7:06 PM EST 07/16/2024 7:11 PM EST Generic External Data Provider LAB MICROBIOLOGY - GENERAL ORDERABLES Final Result [facility] [address] [place] [phone] * Lipase (07/16/2024 7:06 PM EST) Lipase 8 8 - 78 U/L [facility] 07/16/2024 7:06 PM EST 07/16/2024 7:11 PM EST us Generic External Data Provider LAB BLOOD ORDERAB LES Final Result Performing Organization Address City/[facility]/ZIP Co de Phone Number [facility] [address] [place] [phone] * Magnesium (07/16/2024 7:06 PM EST) Magnesium 2.2 1.6 - 2.6 mg/dL [facility] 07/16/2024 7:06 PM EST 07/16/2024 7:11 PM EST Generic External Data Provider LAB BLOOD ORDERAB LES Final Result Performing Organization Address [facility] de Phone Number [facility] [address] [place] [phone] * (ABNORMAL) Basic Metabolic Panel (07/16/2024 7:06 PM EST) [facility] Sodium 139 135 - 145 mmol/L [facility] Potassium 4.3 3.3 - 5.1 mmol/L [facility] Chloride 102 96 - 108 mmol/L [facility] Carbon Dioxide 25 22 - 29 mmol/L [facility] Anion Gap 16 12 - 20 [facility] Urea Nitrogen (BUN) 18(H) 9 - 16 mg/dL [facility] Creatinine, Serum 0.73 0.5 - 1.4 mg/dL [facility] Creatinine Clr Calc Pharmacy 58.3 [facility] Comment:Provided height and weight: 157.48 cm,68.039 kg.eGFR (calculated from the MDRD study equation) and eCrCl(calculated from the Cockcroft-Gault equation) are based ondifferent parameters and may not yield comparable results.If eCrCl result is absurd, please check patient'sheight/weight. Estimated Glomerular Filt Rate >60 [facility] Comment:Chronic Kidney Disea se: Estimated GFR < 60 mL/min/1.03a6Gpvjht Kidney Disease: Estimated GFR < 15 mL/min/1.73m2 Glucose 124(H) 60 - 115 mg/dL [facility] Calcium 9.1 8.4 - 10.2 mg/dL [facility] 07/16/2024 7:06 PM EST 07/16/2024 7:11 PM EST us Generic External Data Provider LAB BLOOD ORDERAB LES Final Result Performing Organization Address City/[facility]/ZIP Co de Phone Number [facility] [address] [place] [phone] * (ABNORMAL) Hepatic Function Panel (07/16/2024 7:06 PM EST) Bilirubin, Total 0.4 0.0 - 1.0 mg/dL [facility] Bilirubin, Direct 0.2 0.0 - 0.5 mg/dL [facility] Aspartate Amino Transferase 37(H) 5 - 31 U/L [facility] Alanine Aminotransferase 27 0 - 31 U/L [facility] Total Protein 7.5 6.5 - 8.0 g/dL [facility] Albumin Level 3.9 3.5 - 5.0 g/dL [facility] Alkaline Phosphatase 136(H) 39 - 117 U/L [facility] 07/16/2024 7:06 PM EST 07/16/2024 7:11 PM EST us Generic External Data Provider LAB BLOOD ORDERAB LES Final Result Performing Organization Address City/[facility]/ZIP Co de Phone Number [facility] [address] [place] [phone] * (ABNORMAL) CBC auto differential (07/16/2024 7:06 PM EST) White Blood Count 10.1 4.8 - 10.8 X10*3/uL [facility] Red Blood Count 4.68 4.20 - 5.50 X10*6/uL [facility] Hemoglobin 13.3 12.0 - 16.0 g/dl [facility] Hematocrit 40.7 37.0 - 47.0 % [facility] Mean Corpuscular Volume 87.0 80.0 - 98.0 fL [facility] Mean Corpuscular Hemoglobin 28.4 27.0 - 33.0 pg [facility] Mean Corpuscular HGB Conc 32.7 31.0 - 35.0 g/dl [facility] Red Cell Distribution Width 15.0 11.0 - 16.0 % [facility] Platelet Count 272 160 - 400 X10*3/uL [facility] Mean Platelet Volume 9.9 9.4 - 12.3 fL [facility] Neutrophils Percent Auto 74.5(H) 45 - 73 % [facility] Imm Gran Pct Auto 0.3 0.0 - 0.4 % [facility] Lymphocytes Percent Auto 16.3(L) 20 - 40 % [facility] Monocytes Percent Auto 8.0 2 - 11 % [facility] Eosinophils Percent Auto 0.7 0 - 4 % [facility] Basophils Percent Auto 0.2 0 - 2 % [facility] NRBC Pct Auto 0.0 0.0 - 0.2 /100WBC [facility] Neutrophils Absolute Auto 7.6 2.0 - 8.3 x10*3/uL [facility] Imm Gran Abs Auto 0.03 0.00 - 0.03 X10*3/uL [facility] Lymphocytes Absolute Auto 1.7 1.2 - 4.9 X10*3/uL [facility] Monocytes Absolute Auto 0.8 0.1 - 1.2 X10*3/uL [facility] Eosinophils Absolute Auto 0.1 0.0 - 0.4 X10*3/uL [facility] Basophils Absolute Auto 0.0 0.0 - 0.2 X10*3/uL [facility] NRBC Abs Auto 0.000 0.0 - 0.012 X10*3/uL [facility] 07/16/2024 7:06 PM EST 07/16/2024 7:11 PM EST us Generic External Data Provider LAB BLOOD ORDERAB LES Final Result [facility] [address] [place] [phone] documented in this encounter Visit Diagnoses Not on filedocumented in this encounter Additional Health Concerns Assessment Noted Time PHQ-9 Depression Total Score: 9 05/10/20 24 11:56 AM EST documented as of this encounter Care Teams Claims Adjuster Relationship Specialty Start Date End Date Name, MD Eddie [address] [place] [phone] PCP - General Family Medicine 09/16/15 [place] 07/01/24 documented as of this encounter
--- OUTSIDE RECORDS SUMMARY | 2024-08-14 10:27 | XMS_ITS | Clinical Summary ---
Author Organization [employer] Address [address] [place] [address] 7[address] [place] [address] Care Team Providers Care Luggage Attendant Name Role Phone Name, Eddie GILMORE Primary Care Provider [phone] Allergies Active Allergy Reactions Criticality Noted Date Comments Gluten Meal Unknown 06/16/2022 Gramineae Pollens Runny [...] 06/01/20 22 Active Blood Glucose Monitoring Suppl ([employer] Verio Flex System) w/Device kit USE DIRECTED [...] in the morning. 01/10/20 23 Active Lancets ([employer] Delica Plus [id number]) miscIndications :Controlled type 2 diabetes mellitus with complication, without long-term current use of insulin ([facility]) USE TO CHECK BLOOD SUGAR TWICE A DAY 100 each 5 09/15/19 24 Active glucose blood ([employer] Verio) test stripIndication s:Controlled type 2 diabetes mellitus with complication, without long-term current use of insulin (CMS/HCC) CHECK BY FINGERSTICK TWICE DAILY 50 strip [...] mg by mouth Once per day. 03/25/20 24 Active trospium (Sanctura XR) 60 MG 24 hour capsule Take 60 mg by mouth Once per day. Active cholecalciferol (Vitamin D-3) 50 MCG (2000 UT) tablet Take 2,000 Units by mouth Once per day. 90 tablet 2 03/28/20 24 Active famotidine (Pepcid) 40 MG tablet Take 1 tablet (40 mg) by mouth Once per day. OTC 90 tablet 2 03/28/20 Active melatonin 5 MG tablet Take 2 tablets by mouth Once per day. At bedtime 03/28/20 24 Active betamethasone valerate (Valisone) 0.1 % cream APPLY A THIN LAYER ONTO THE SKIN TO THE AFFECTED AREAS ONCE DAILY 15 g 05/22/20 24 Active albuterol 108 (90 Base) MCG/ACT inhaler INHALE 2 PUFFS INTO THE LUNGS EVERY 4-6 HOURS NEEDED 8.5 g 1 07/12/19 25 Active atorvastatin (Lipitor) 40 MG tablet TAKE 1 TABLET BY MOUTH EVERY MORNING 30 tablet 5 07/17/19 25 Active nitrofurantoin, macrocrystal-mo nohydrate, (Macrobid) 100 MG capsule Take 1 capsule by mouth 2 times daily. 02/13/20 24 Active oxyCODONE-aceta minophen (Percocet) 5-325 MG tabletIndicatio ns:Chronic pain syndrome Take 1 tablet by mouth every 8 (eight) hours if needed for severe pain for up to 28 days. Do not start before August 12, 2024. 84 tablet 08/12/19 25 2024 Active atorvastatin (Lipitor) 40 MG tablet TAKE 1 TABLET BY MOUTH EVERY DAY 30 tablet 5 01/26/20 24 2024 Discontinued oxyCODONE-aceta minophen (Percocet) 5-325 MG tabletIndicatio ns:Chronic pain syndrome Take 1 tablet by mouth every 8 (eight) hours if needed for severe pain for up to 28 days. Do not start before July 15, 2024. 84 tablet 07/15/19 25 2024 Discontinued(R eorder (will not trigger notification to Pharmacy)) Active Problems Problem Noted Date Diagnosed Date Atherosclerosis of superior mesenteric artery Epistaxis 08/02/2024 Assessment & Plan (08/02/2024 3:41 PM EST): Will refer stat to ENT for cauterization, possible SIGNING AGENT scope Recommend anterior nasal packing if she is bleeding heavily longterm (current) use of opiate analgesic 03/20 Overview (07/17/2024): Dx: chronic pain syndrome/back pain Rx: Percocet 5/325 every 12 hours Last TRAVEL RN OR agreement:03/22/24 Tier II (visit every 3 months) [...] ulceration, 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 ? Assessment & Plan (08/02/2024 3:41 PM EST): In this instance, normocytic anemia likely due to large recent blood loss Lower GI bleed 11/28/2022 Rectal bleed 11/28/2022 Status post cardiac catheterization 11/28/2022 Contusion of right foot 07/07/2022 Assessment & Plan (07/07/2022 2:19 PM EST): Possible early cellulitis given new onset of redness, warmth, and pain. Will treat with Keflex TID for 10 days ER precautions discussed. 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 She understands this is the [...] Encounters Date Type Department Care Team Description 08/13/2024 Telephone [facility] [place] [address] Eddie Marshall MD Appointment Request 08/09/2024 Telephone [facility] [place] [address] Sophie Marie MA september recalls 08/09/2024 Telephone [facility] [place] [address] Sophie Marie MA september recalls 08/09/2024 Refill [facility] [place] [address] Eddie Marshall MD Chronic pain syndrome 08/02/2024 2:30 PM EST Office Visit [facility] [place] [address] Latanya Hoover MD Epistaxis (Primary Dx); Controlled type 2 diabetes mellitus with complication, without long-term current use of insulin ([facility]); Dietary counseling; Exercise counseling; Overweight; Anemia, unspecified type 08/02/2024 Travel 07/30/2024 Telephone [facility] [place] [address] Eddie Marshall MD ER Follow-up 07/23/2024 9:00 AM EST Office Visit [facility] [place] [address] Kelly Montoya MD Chronic pain syndrome (Primary Dx) 07/23/2024 Travel 07/17/2024 Refill [facility] [place] [address] Eddie Marshall MD 07/16/2024 9:45 AM EST Office Visit [facility] [place] [address] Mckenzie Trent FNP Chronic pain syndrome (Primary Dx); longterm (current) use of opiate analgesic 07/16/2024 9:15 AM EST Office Visit [address] [place] [address] Kelly Montoya MD Chronic pain syndrome (Primary Dx) 07/16/2024 Orders Only [facility] External Provider, [facility] 07/16/2024 Travel 07/12/2024 Refill [facility] [address] [place] [address] Eddie Marshall MD 07/12/2024 Refill [facility] [address] [facility] [place] [address] Eddie Marshall MD Chronic pain syndrome 07/02/2024 Telephone [facility] [address] [facility] [place] [address] Eddie Marshall MD 06/10/2024 Telephone [facility] MEDICINE [address] [facility] [place] [address] Eddie Marshall MD Med Refill 06/10/2024 Refill [facility] [address] [facility] [place] [address] 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 RN Chronic pain syndrome 06/03/2024 Telephone [facility] [address] [facility] [place] [address] Eddie Marshall MD Medication Question 05/29/2024 Orders Only [facility] [address] [facility] [place] [address] Eddie Marshall MD 05/29/2024 Telephone [facility] [address] [facility] [place] [address] 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 RN Pt agreeable Fosamax 05/29/2024 Telephone [facility] MEDICINE [address] [facility] [place] [address] Eddie Marshall MD Medication Question 05/24/2024 Refill [facility] [address] [facility] [place] [address] Eddie Marshall MD Chronic pain syndrome 05/24/2024 Telephone [facility] MEDICINE [address] [facility] [place] [address] Eddie Marshall MD Med Refill 05/22/2024 Refill [facility] [address] [facility] [place] [address] Jess Ring RN 05/15/2024 Orders Only [facility] [address] [place] [address] Joanna, MD Eddie 05/14/2024 10:45 AM EST Office Visit [address] [address] Kelly Montoya MD Chronic pain syndrome (Primary Dx) 05/14/2024 9:45 AM EST Office Visit [address] [address] Latanya Hoover MD 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 (Primary Dx); Chronic pain syndrome 05/14/2024 Travel from Last 3 Months Immunizations Name Administration Dates Next Due Influenza injectable quadriv alent IIV4 with preservative 04/07/2016 Influenza, IIV3, injectable 03/23/2015,1 ,03/08/2013,04/06,05/01/2008,04/19/2007,05/10/2006 ,03/15/2005 Novel [id number], preservative-free 05/22/2009 Pneumococcal Polysaccharide PPSV23 07/11/2013, TD [...] Height 154.9 cm (5' 1 ) 08/02/2024 2:06 PM EST Body Mass Index 29.29 08/02/2024 2:06 PM EST Plan of Treatment Upcoming Encounters Date Type Department Care Team (Late st Contact Info) Description 10/29/2024 2:30 PM EDT Office Visit [facility] MEDICINE [address] [place] [address] Name, MD Eddie [address] [place] [address] Health Maintenance Due Date Last Done Comments [...] 6, 03/23/2015, 03/27/2014, Additional history exists Diabetes: Foot Exam 10/16/2024 10/17/2023, 10/17/2023, 10/17/2023, Additional history exists Depression Monitoring (PHQ-9) 11/07/2024 05/10/2024, 05/10/2024 Diabetes: Urine Protein Screening 01/15/2025 01/16/2024, 09/14/2022 Lipid Panel 01/15/2025 01/16/2024, 08/18, 03/18/2020 Diabetes: Hemoglobin A1C 01/30/2025 025, 02/05/2024, 06/26/2023, Additional history exists Alcohol/Substance Use Screening 02/04/2025 02/05/2024 SDOH Screening 02/04/2025 02/05/2024 Depression Screening 05/10/2025 05/10/2024, 05/10/20 24 Eye Exam 05/16/2025 05/16/2023 Tobacco Screening 08/02/2025 08/02/2024 Hepatitis C Screening Completed 11/18/2022 HIB Vaccines [...] complication, without long-term current use of insulin ([facility]/HCC) POCT GLUCOSE Routine 08/02/2024 2:14 PM EST Controlled type 2 diabetes mellitus with complication, without long-term current use of insulin (CMS/HCC) XR KUB AND UPRIGHT 2 VIEWS Routine [...] DRUG SCREEN Routine 07/16/2024 1:49 PM EST longterm (current) use of opiate analgesic AMB REFERRAL TO ORTHOPAEDIC SURGERY Routine 06/03/2024 Chronic right shoulder pain XR THORACIC SPINE 2 VIEWS Routine 05/15/2024 12:55 PM EST Midline thoracic back pain, unspecified chronicity XR SHOULDER 2+ VIEWS RIGHT Routine 05/15/2024 12:55 PM EST Chronic right shoulder pain VITAMIN B12 Routine 05/15/2024 12:37 PM EST VITAMIN D,25-OH,TOTAL,IA Routine 05/15/2024 12:37 PM EST Menopausal osteoporosis LIPID PANEL, STANDARD Routine 01/16/2024 9:40 AM EDT Controlled type 2 diabetes mellitus with complication, without long-term current use of insulin (CMS/HCC) ALBUMIN, RANDOM URINE W/CREATININE Routine 01/16/2024 9:35 AM EDT Primary hypertension HM DIABETES EYE EXAM Routine 05/16/2023 HEPATITIS PANEL, GENERAL Routine 11/18/2022 2:07 PM EDT Diarrhea, unspecified type from Last 3 Months or Most Recently Relevant to Health Maintenance Results * (ABNORMAL) POCT HGB A1C (08/02/2024 2:14 PM EST) Hemoglobin A1C 6.2(A) 4.0 - 6.0 % QC Media Lot # [id number] Lot# Expiration Date Blood 08/02/2024 2:14 PM EST Latanya Hoover MD POINT OF CARE TEST ENTER/EDIT ORDERABLES Final Result * POCT Glucose (08/02/2024 2:14 PM EST) Glucose Blood, POC 131 60 - 200 mg/dL QC Media Lot # [id number] Lot# Expiration Date ,025 Blood Capillary blood specimen / Unknown 08/02/2024 2:14 PM EST Latanya Hoover MD POINT OF CARE TEST ENTER/EDIT ORDERABLES Edited Result - Final * XR KUB and Upright 2 Views (07/16/2024 7:07 PM EST) Anatomical Region Laterality Modality Radiographic Tanya ging 07/16/2024 7:07 PM EST Narrative 07/16/2024 7:07 PM EST ? [facility] [facility] ?[address] ?[place] [address] ?XRay Report ? Signed ? Patient: Jenniffer,Celeste ?MR#: [id number] ?? 4 ? : 1945 ?Acct:[id number] ? Age/Sex: 78 / F ?ADM Date: 07/16/24 ? Loc: HO.ED ? Attending Dr: ? Ordering Physician: Rhea Ken ?? Date of Service: 07/16/24 ?? Procedure(s): XR KUB ?? Accession Number(s): [id number] ? cc: Rhea Ken; Name,Eddie GILMORE ? [...] ? DD/ 06 ? TD/TT: 07/16/241906 ? Funeral Arrangement Director: ? Procedure Note Geoff, Image - 07/16/2024 [place] [address] XRay Report Signed Patient: Ventura Abad#: [id number] 4 : 7Acct:[id number] Age/Sex: 78 / FADM Date: 07/16/24 Loc: HO.ED Attending Dr: Ordering Physician: Rhea Ken Date of Service: 07/16/24 Procedure(s): XR KUB Accession Number(s): [id number] cc: Rhea Ken; Name,Eddie GILMORE CLINICAL HISTORY: [...] in OV> 07/16/241906 DD/ 06 TD/TT: 07/16/241906 Funeral Arrangement Director: [facility] External Provider IMG XR PROCEDURES Final Result * SARS-CoV-2 RNA, Influenza A/B, and RSV RNA, Ql NAAT (07/16/2024 7:06 PM EST) Pathologist [facility] Influenza A PCR NEGATIVE Negative [facility] Influenza B PCR NEGATIVE Negative [facility] Resp Syncy Virus RNA Qual PCR NEGATIVE Negative [facility] SARS COV2 PCR NEGATIVE Negative [facility] Comment:All test results mus t [...] use by authorized laboratories.Testing performed on the [employer] GeneXpert utilizingreal-time RT-PCR.All SARS CoV2 and positive influenza A/B results arereported to [facility]. 07/16/2024 7:06 PM EST 07/16/2024 7:11 PM EST Generic External Data Provider LAB MICROBIOLOGY - GENERAL ORDERABLES Final Result [facility] [address] [place] [address] [phone] * (ABNORMAL) CBC auto differential (07/16/2024 7:06 PM EST) White Blood Count 10.1 4.8 - 10.8 X10*3/uL [facility] Red Blood Count 4.68 4.20 - 5.50 X10*6/uL [facility] Hemoglobin 13.3 12.0 - 16.0 g/dl [facility] Hematocrit 40.7 37.0 - 47.0 % [facility] Mean Corpuscular Volume 87.0 80.0 - 98.0 fL [facility] Mean Corpuscular Hemoglobin 28.4 27.0 - 33.0 pg [facility] Mean Corpuscular HGB Conc 32.7 31.0 - 35.0 g/dl [facility] Red Cell Distribution Width 15.0 11.0 - 16.0 % [facility] Platelet Count 272 160 - 400 X10*3/uL [facility] Mean Platelet Volume 9.9 9.4 - 12.3 fL [facility] Neutrophils Percent Auto 74.5(H) 45 - 73 % [facility] Imm Gran Pct Auto 0.3 0.0 - 0.4 % [facility] Lymphocytes Percent Auto 16.3(L) 20 - 40 % [facility] Monocytes Percent Auto 8.0 2 - 11 % [facility] Eosinophils Percent Auto 0.7 0 - 4 % [facility] Basophils Percent Auto 0.2 0 - 2 % [facility] NRBC Pct Auto 0.0 0.0 - 0.2 /100WBC [facility] Neutrophils Absolute Auto 7.6 2.0 - 8.3 x10*3/uL [facility] Imm Gran Abs Auto 0.03 0.00 - 0.03 X10*3/uL [facility] Lymphocytes Absolute Auto 1.7 1.2 - 4.9 X10*3/uL [facility] Monocytes Absolute Auto 0.8 0.1 - 1.2 X10*3/uL [facility] Eosinophils Absolute Auto 0.1 0.0 - 0.4 X10*3/uL [facility] Basophils Absolute Auto 0.0 0.0 - 0.2 X10*3/uL [facility] NRBC Abs Auto 0.000 0.0 - 0.012 X10*3/uL [facility] 07/16/2024 7:06 PM EST 07/16/2024 7:11 PM EST us Generic External Data Provider LAB BLOOD ORDERAB LES Final Result Performing Organization Address [facility] Co de Phone Number [facility] [address] [place] [phone] * Magnesium (07/16/2024 7:06 PM EST) Magnesium 2.2 1.6 - 2.6 mg/dL [facility] 07/16/2024 7:06 PM EST 07/16/2024 7:11 PM EST Generic External Data Provider LAB BLOOD ORDERAB LES Final Result Performing Organization Address [facility] Phone Number [facility] [address] [place] [phone] * Lipase (07/16/2024 7:06 PM EST) Lipase 8 8 - 78 U/L [facility] 07/16/2024 7:06 PM EST 07/16/2024 7:11 PM EST Generic External Data Provider LAB BLOOD ORDERAB LES Final Result Performing Organization Address [facility] de Phone Number [facility] [address] [place] [phone] * (ABNORMAL) Hepatic Function Panel (07/16/2024 7:06 PM EST) Bilirubin, Total 0.4 0.0 - 1.0 mg/dL [facility] Bilirubin, Direct 0.2 0.0 - 0.5 mg/dL [facility] Aspartate Amino Transferase 37(H) 5 - 31 U/L [facility] Alanine Aminotransferase 27 0 - 31 U/L [facility] Total Protein 7.5 6.5 - 8.0 g/dL [facility] Albumin Level 3.9 3.5 - 5.0 g/dL [facility] Alkaline Phosphatase 136(H) 39 - 117 U/L [facility] 07/16/2024 7:06 PM EST 07/16/2024 7:11 PM EST us Generic External Data Provider LAB BLOOD ORDERAB LES Final Result Performing Organization Address City/[facility]/ZIP Co de Phone Number [facility] [address] [place] [phone] * (ABNORMAL) Basic Metabolic Panel (07/16/2024 7:06 PM EST) Sodium 139 135 - 145 mmol/L [facility] Potassium 4.3 3.3 - 5.1 mmol/L [facility] Chloride 102 96 - 108 mmol/L [facility] Carbon Dioxide 25 22 - 29 mmol/L [facility] Anion Gap 16 12 - 20 [facility] Urea Nitrogen (BUN) 18(H) 9 - 16 mg/dL [facility] Creatinine, Serum 0.73 0.5 - 1.4 mg/dL [facility] Creatinine Clr Calc Pharmacy 58.3 [facility] Comment:Provided height and weight: 157.48 cm,68.039 kg.eGFR (calculated from the MDRD study equation) and eCrCl(calculated from the Cockcroft-Gault equation) are based ondifferent parameters and may not yield comparable results.If eCrCl result is absurd, please check patient'sheight/weight. Estimated Glomerular Filt Rate >60 [facility] Comment:Chronic Kidney Disea se: Estimated GFR < 60 mL/min/[id number] Kidney Disease: Estimated GFR < 15 mL/min/1.73m2 Glucose 124(H) 60 - 115 mg/dL [facility] Calcium 9.1 8.4 - 10.2 mg/dL [facility] 07/16/2024 7:06 PM EST 07/16/2024 7:11 PM EST us Generic External Data Provider LAB BLOOD ORDERAB LES Final Result [facility] [address] [place] [address] [phone] * POCT ADRIAN-14 Urine Drug Screen (07/16/2024 1:49 PM EST) Oxycodone Screen, Urine Positive Urine Urine specimen obtained by clean catch procedure / Unknown 07/16/2024 1:49 PM EST us Mckenzie Trent SPECIAL PROJECTS MANAGER POINT OF CARE TEST ENTER/EDIT ORDERABLES Final Result * Referral to Orthopaedic Surgery (06/03/2024) us Eddie Marshall MD OUTPATIENT REFERRAL ORDERABLES F inal Result * XR Shoulder 2+ Views Right (05/15/2024 12:55 PM EST) Anatomical Region Laterality Modality Upper Extremities, Shoulder Right Radi ographic Imaging 05/15/2024 12:5 5 PM EST Narrative 05/16/2024 10:05 AM EST ? [facility] ?[address] ?[place] [address] ?XRay Report ? Signed ? Patient: Celeste Abad ?MR#: [id number] ?? 4 ? : 1945 ?Acct:[id number] ? Age/Sex: 78 / F ?ADM Date: 05/15/24 ? Loc: HO.HHCL ? Attending Dr: Eddie Marshall MD ? Ordering Physician: Eddie Marshall MD ?? Date of Service: 05/15/24 ?? Procedure(s): XR shoulder RT min 2V ?? Accession Number(s): [id number] ? cc: Eddie Marshall MD ? EXAMINATION: ?? XR SHOULDER, RIGHT ? [...] ??Kashif Stinson MD ??05/16/2024 10:03 AM EST ?? RP Workstation: [id number] ? Dictated By: ?Kashif Stinson MD ? Signed By: ?<Electronically signed by Kashif Stinson MD in OV> ?05/16/24 1003 ? DD/ 1255 ? TD/TT: 05/15/24 1300 ? Funeral Arrangement Director: SR ? Procedure Note Donjose ramonter, Image - 05/16/[address] [address] XRay Report Signed Patient: Celeste AbadMR#: [id number] 4 : 7Acct:[id number] Age/Sex: 78 / FADM Date: 05/15/24 Loc: HO.HHCL Attending Dr: Eddie Marshall MD Ordering Physician: Eddie Marshall MD Date of Service: 05/15/24 Procedure(s): XR shoulder RT min 2V Accession Number(s): [id number] cc: Eddie Marshall MD EXAMINATION: XR SHOULDER, [...] 05/16/24 1003 DD/ 1255 TD/TT: 05/15/24 1300 Funeral Arrangement Director: SR us Eddie Name MD IMG XR PROCEDURES Final Result * XR Thoracic Spine 2 Views (05/15/2024 12:55 PM EST) Anatomical Region Laterality Modality Spine, T-spine Radiographic Tanya ging 05/15/2024 12:5 5 PM EST Narrative 05/16/2024 10:23 AM EST ? [facility] ?[address] ?[place] [address] ?XRay Report ? Signed ? Patient: Celeste Abad ?MR#: [id number] ?? 4 ? : 1945 ?Acct:[id number] ? Age/Sex: 78 / F ?ADM Date: 05/15/24 ? Loc: HO.HHCL ? Attending Dr: Eddie Marshall MD ? Ordering Physician: Eddie Marshall MD ?? Date of Service: 05/15/24 ?? Procedure(s): XR thoracic spine 2V ?? Accession Number(s): [id number] ? cc: Eddie Marshall MD ? EXAMINATION: [...] DD/ 1255 ? TD/TT: 05/15/24 1300 ? Funeral Arrangement Director: SR ? Procedure Note Geoff, Sahil - 05/16/2024 [place] [id number] [place] [address] XRay Report Signed Patient: Celeste AbadMR#: [id number] 4 : 7Acct:[id number] Age/Sex: 78 / FADM Date: 05/15/24 Loc: HO.HHCL Attending Dr: Eddie Marshall MD Ordering Physician: Eddie Marshall MD Date of Service: 05/15/24 Procedure(s): XR thoracic spine 2V Accession Number(s): [id number] cc: Eddie Marshall MD EXAMINATION: XR THORACIC [...] Kashif Stinson MD 05/16/2024 10:21 AM EST Workstation: [id number] Dictated By: Kashif Stinson MD Signed By: <Electronically signed by Kashif Stinson MD in OV> 05/16/24 1021 DD/ 1255 TD/TT: 05/15/24 1300 Funeral Arrangement Director: Eddie Marshall MD IM XR PROCEDURES Final Result * Vitamin D, 25-Hydroxy, Total, Immunoassay (05/15/2024 12:37 PM EST) Vitamin D 25-OH Total 72.9 >30 ng/mL [facility] Comment:Health Based Referen ce Values*< 20 ng/mL Xlbvsamsi71-03 ng/mL Insufficient> 30 ng/mL Sufficient*Judy REDDY. N [...] ORDERABLES Final Resul t Performing Organization Address [facility] Co de Phone Number [facility] [address] [place] [phone] * (ABNORMAL) Vitamin B12 (05/15/2024 12:37 PM EST) Vitamin B12 >2,000(H) 200 - 900 pg/mL [facility] Comment:NORMAL 200-900 PG/ML INDETERMINATE 160-199 PG/ML DEFICIENT < 160 PG/ML 05/15/2024 12:3 7 PM EST 05/15/2024 1:12 PM EST us Eddie Marshall MD LAB BLOOD ORDERABLES Final Resul t Performing Organization Address [facility] Phone Number [facility] [address] [place] [phone] * (ABNORMAL) Lipid Panel, Standard (01/16/2024 9:40 AM EDT) Triglycerides 199(H) <150 mg/dL [facility] Comment:Desirable Triglyceri de: less than 150 [...] 190 mg/dL HDL Cholesterol 48 >40 mg/dL [facility] Comment:Desirable HDL: great er than 40 mg/dL Note: This HDL assay may give artificially low results in patients with liver disease. Blood Venous blood specimen / Unknown 01/16/2024 9:40 AM EDT 01/16/2024 11:20 AM EDT us Eddie Marshall MD LAB BLOOD ORDERABLES Final Resul t Performing Organization Address [facility] Co de Phone Number [facility] [address] [place] [phone] * Albumin, Random Urine W/Creatinine (01/16/2024 9:35 AM EDT) Creatinine, Urine 27.62 mg/dL [facility] Microalbumin Urine <5.0 mg/L [facility] Microalbum Creatinine Ratio Ur TNP <30 ug/mg cr [facility] Comment:Unable to calculate albumin/creatinine ratio due to lowmicroalbumin or creatinine result. Urine (Urine, Random) 01/16/2024 9:35 AM EDT 01/16/2024 11:12 AM EDT us Eddie Marshall MD LAB URINE ORDERABLES Final Resul t Performing Organization Address [facility] Co de Phone Number [facility] [address] [place] [phone] * Hm Diabetes Eye Exam (05/16/2023) Eye Exam Normal Normal Result Gena Marshall MD HEALTH MAINTENANCE Final Result * (ABNORMAL) Hepatitis Panel, General (11/18/2022 2:07 PM EDT) Hepatitis A Antibody Total REACTIVE( A) NON-REACT NAHID [employer] [facility] Comment: For additional information, please refer to http://education.Gemfire/faq/KQX347 (This link is being provided for informational/ educational purposes only.) Hepatitis B Surface Antibody QL NON-REACT NAHID NON-REACT NAHID [facility] Hepatitis B Surface Ag NON-REACT NAHID NON-REACT NAHID [facility] Hepatitis B Core Antibody Total NON-REACT NAHID NON-REACT NAHID [facility] Hepatitis C Antibody NON-REACT NAHID NON-REACT NAHID [facility] Index 0.07 <1.00 [facility] [place] [facility] Comment: HCV antibody was non-reactive. There is no laboratory evidence of HCV infection. In most cases, no further action is required. However, if recent HCV exposure is suspected, a test for HCV RNA (test code 78775) is suggested. For additional information please refer to http://Diasome.Gemfire/faq/UOK68q4 (This link is being provided for informational/ educational purposes only.) 11/18/2022 2:07 PM EDT 11/18/2022 2:09 PM EDT [facility] - 11/19/2022 6:51 AM EDT COLLECTION KIT GIVEN TO PATIENT. PATIENT ADVISED TO RETURN. Mckenzie Pillai [facility] BLOOD ORDERABLES Final Res ult [facility] [address], [place] [address] [facility] [place] [facility] [address]t [address] [place] [address] from Last 3 Months or Most Recently Relevant to Health Maintenance [facility] Care Teams Luggage Attendant Relationship Specialty Start Date End Date Name, MD Eddie [address] [place] [address] PCP - General Family Medicine 09/16/15 [place] [facility] 07/01/24
--- OUTSIDE RECORDS SUMMARY | 2024-08-14 10:27 | XMS_ITS | Encounter Summary ---
Author Organization [facility] [employer] Address [address] [place] [address] 7 [place] [address] Care Team Providers Care Tangled Yarn Worker Name Role Phone Name, Eddie GILMORE Primary Care Provider [phone] Encounter Details Date Type Department Care Team ([facility] Contact Info) Description 11/18/2022 Abstract [facility] [address] [place] [address] [phone] NameEddie MD [address] [place] [address] [phone] Social History Tobacco Use Types Packs/Day Years [...] Upcoming Encounters Date Type Department Care Team ([facility] Contact Info) Description 10/29/2024 2:30 PM EDT Office Visit [facility] [address] [place] [address] NameEddie MD [address] [place] [address] [phone] documented as of this encounter Visit Diagnoses Not on filedocumented in this encounter Care Teams Tangled Yarn Worker Relationship Specialty Start Date End Date Name, MD Eddie [address] [place] [address] PCP - General Family Medicine 09/16/15 Jerica Sim 07/01/24 documented as of this encounter
--- OUTSIDE RECORDS SUMMARY | 2024-08-14 10:27 | XMS_ITS | Encounter Summary ---
Author Organization [employer] Address [address] [employer] 7t [place] [address] Care Team Providers Care Homemaker Companion Name Role Phone Name, Eddie GILMORE Primary Care Provider [phone] Encounter Details Date Type Department Care Team [...] Description 10/29/2024 2:30 PM EDT Office Visit [facility] [address] [place] [address] Name, MD Eddie [address] [place] [address] documented as of this encounter Visit Diagnoses Not on filedocumented in this encounter Additional Health Concerns Assessment Noted Time PHQ-9 Depression Total Score: 9 05/10/20 24 11:56 AM EST documented as of this encounter Care Teams Homemaker Companion Relationship Specialty Start Date End Date Name, MD Eddie [address] [place] [address] PCP - General Family Medicine 09/16/15 Jerica SEN 07/01/24 documented as of this encounter
--- OUTSIDE RECORDS SUMMARY | 2024-08-14 10:27 | XMS_ITS | Encounter Summary ---
Author Organization [employer] Address [address] [place] [address] 7 [place] [address] Care Team Providers Care School Plant Consultant Name Role Phone Name, Eddie GILMORE Primary Care Provider [phone] Reason for Visit * Reason Comments Acupuncture Encounter Details Date Type Department Care Team ([facility] st Contact Info) Description 07/23/2024 9:00 AM EST Office Visit [facility] 230 [place], [place] [phone] Kelly Montoya MD 230 [place], [place] [phone] Chronic pain syndrome (Primary Dx) Social History [...] Progress Notes * Kelly Montoya MD - 07/23/2024 9:00 AM EST Subjective Patient ID: Celeste Abad is a 78 y.o. female who presents for Acupuncture. Celeste is here for acupuncture treatment #8 for chronic pain. Treatment is helping for EMANUEL pain and for stress reduction. Review of Systems Musculoskeletal: Positive for myalgias. [...] Description 10/29/2024 2:30 PM EDT Office Visit [facility] 230 [place] [address] Name, MD Eddie 230 [place] [address] documented as of this encounter Visit Diagnoses Diagnosis Chronic pain syndrome- Primary documented in this encounter Additional Health Concerns Assessment Noted Time PHQ-9 Depression Total Score: 9 05/10/20 24 11:56 AM EST documented as of this encounter Care Teams School Plant Consultant Relationship Specialty Start Date End Date Name, MD Eddie 230 [place] [address] PCP - General Family Medicine 09/16/15 [place] Sim 07/01/24 documented as of this encounter
--- OUTSIDE RECORDS SUMMARY | 2024-08-14 10:28 | XMS_ITS | Encounter Summary ---
Author Organization [employer] Address [address] [place] [address] 7 [place] [address] Care Team Providers Care Sidehand Name Role Phone Name, Eddie GILMORE Primary Care Provider [phone] Reason for Visit * Reason Comments Med Refill Encounter Details Date Type Department Care Team (Late Contact Info) Description 01/04/2023 Refill [facility] [address] [place] [address] [phone] Name, MD Edide 230 [place] [address] Gastroesophageal reflux disease, unspecified whether esophagitis present [...] Department Care Team (Late Contact Info) Description 10/29/2024 2:30 PM EDT Office Visit [facility] [address] [place] [address] Name, MD Eddie [address] [place] [address] documented as of this encounter Visit Diagnoses Diagnosis Gastroesophageal reflux disease, unspecified whether esophagitis present documented in this encounter Additional Health Concerns Assessment Noted Time PHQ-9 Depression Total Score: 10 023 1:16 PM EDT documented as of this encounter Care Teams Sidehand Relationship Specialty Start Date End Date Name, [place] [address] PCP - General Family Medicine 09/16/15 Jerica BURGOSA 07/01/24 documented as of this encounter
--- OUTSIDE RECORDS SUMMARY | 2024-08-14 10:28 | XMS_ITS | Encounter Summary ---
Author Organization [employer] Address [address] [place] [address] 7 [place] [address] Care Team Providers Care Devulcanizer Loader Name Role Phone Name, Eddie GILMORE Primary Care Provider [phone] Reason for Visit * Reason Onset Date Comments Medication Question 09/05/2023 Encounter Details Date Type Department Care Team ([facility] st Contact Info) Description 09/05/2023 Telephone [facility] 230 [place], [place] [phone] Name, MD Eddie 230 [place] [address] Medication Question Social History Tobacco Use Types [...] Description 10/29/2024 2:30 PM EDT Office Visit [facility] 230 [place] [address] Name, MD Eddie 230 [place] [address] documented as of this encounter Visit Diagnoses Not on filedocumented in this encounter Additional Health Concerns Assessment Noted Time PHQ-9 Depression Total Score: 10 023 1:16 PM EDT documented as of this encounter Care Teams Devulcanizer Loader Relationship Specialty Start Date End Date Name, MD Eddie 230 [place] [address] PCP - General Family Medicine 09/16/15 Jerica SEN 07/01/24 documented as of this encounter
--- OUTSIDE RECORDS SUMMARY | 2024-08-14 10:28 | XMS_ITS | Encounter Summary ---
Author Organization [employer] Address [address] [facility] 7t [place] [address] Care Team Providers Care Licensed Dispensing Optician Name Role Phone Name, Eddie GILMORE Primary Care Provider [phone] Encounter Details Date Type Department Care Team (Latest Contact Info) Description 07/23/2024 Travel Social History Tobacco Use Types Packs/Day [...] 2:30 PM EDT Office Visit [facility] [address] [place] [address] Name, MD Eddie [address] [place] [address] documented as of this encounter Visit Diagnoses Not on filedocumented in this encounter Additional Health Concerns Assessment Noted Time PHQ-9 Depression Total Score: 9 05/10/20 24 11:56 AM EST documented as of this encounter Care Teams Licensed Dispensing Optician Relationship Specialty Start Date End Date Name, MD Eddie [address] [place] [address] PCP - General Family Medicine 09/16/15 Jerica SEN 07/01/24 documented as of this encounter
--- OUTSIDE RECORDS SUMMARY | 2024-08-14 10:28 | XMS_ITS | Encounter Summary ---
Author Organization [employer] Address [address] [place] [address] 7 [place] [address] Care Team Providers Care Chain Tender Name Role Phone Name, Eddie GILMORE Primary Care Provider [phone] Reason for Visit * Reason Comments Med Refill Encounter Details Date Type Department Care Team (Late Contact Info) Description 12/01/2022 Refill [facility] 230 [place], [place] [phone] Name, MD Eddie 230 [place] [address] Controlled type 2 diabetes mellitus with complication, without long-term current use of insulin ([facility]) Social History Tobacco Use Types [...] Description 10/29/2024 2:30 PM EDT Office Visit [facility] [address] [facility] [place] [address] Name, MD Eddie [address] [facility] [place] [address] documented as of this encounter Visit Diagnoses Diagnosis Controlled type 2 diabetes mellitus with complication, without long-term current use of insulin ([facility]) documented in this encounter Additional Health Concerns Assessment Noted Time PHQ-9 Depression Total Score: 10 023 1:16 PM EDT documented as of this encounter Care Teams Chain Tender Relationship Specialty Start Date End Date Name, MD Eddie [address] [facility] [place] [address] PCP - General Family Medicine 09/16/15 Jerica SEN 07/01/24 documented as of this encounter
--- OUTSIDE RECORDS SUMMARY | 2024-08-14 10:28 | XMS_ITS | Encounter Summary ---
Author Organization [employer] Address [address] [place] [address] 7t [place] [address] Care Team Providers Care Bag Bailer Name Role Phone Name, Eddie GILMORE Primary Care Provider [phone] Encounter Details Date Type Department Care Team ([facility] st Contact Info) Description 12/07/2022 Telephone [facility] 230 [place], [place] [phone] Name, MD Eddie 230 [place] [address] Social History Tobacco Use Types Packs/Day Years [...] update PCP now. Ordering provider Pierce Pillai SHAKER SCREEN OPERATOR Follow with fredyn as indicated. Results faxed at time of call to [phone]. Ref.# [id number] C documented in this encounter Plan of Treatment Upcoming Encounters Date Type Department Care Team (Late st Contact Info) Description 10/29/2024 2:30 PM EDT Office Visit [facility] [address] [place] [address] Name, MD Eddie [address] [place] [address] documented as of this encounter Visit Diagnoses Not on filedocumented in this encounter Additional Health Concerns Assessment Noted Time PHQ-9 Depression Total Score: 10 023 1:16 PM EDT documented as of this encounter Care Teams Bag Bailer Relationship Specialty Start Date End Date Name, MD Eddie [address] [place] [address] PCP - General Family Medicine 09/16/15 Jerica Sim 07/01/24 documented as of this encounter
--- OUTSIDE RECORDS SUMMARY | 2024-08-14 10:28 | XMS_ITS | Encounter Summary ---
Author Organization [employer] Address [address] [place] [address] 7 [place] [address] Care Team Providers Care Personal Finance Instructor Name Role Phone Name, Eddie GILMORE Primary Care Provider Reason for Visit * Reason Onset Date Comments Medication Question 09/01/2023 Encounter Details Date Type Department Care Team ([facility] st Contact Info) Description 09/01/[address] [facility] 230 [place], [place] [phone] Name, MD Eddie 230 [place] [address] Medication Question Social History Tobacco Use Types [...] an add on. Please contact pharmacy at [phone]. documented in this encounter Plan of Treatment Upcoming Encounters Date Type Department Care Team (Late st Contact Info) Description 10/29/2024 2:30 PM EDT Office [facility] 230 [place] [address] Name, MD Eddie 230 [place] [address] documented as of this encounter Visit Diagnoses Not on filedocumented in this encounter Additional Health Concerns Assessment Noted Time PHQ-9 Depression Total Score: 10 023 1:16 PM EDT documented as of this encounter Care Teams Personal Finance Instructor Relationship Specialty Start Date End Date Name, [place] [address] PCP - General Family Medicine 09/16/15 Jerica A 07/01/24 documented as of this encounter
--- OUTSIDE RECORDS SUMMARY | 2024-08-14 10:28 | XMS_ITS | Encounter Summary ---
Author Organization [employer] Address [address] [place] [address] 7 [place] [address] Care Team Providers Care Fish Cutting Machine Operator Name Role Phone Name, Eddie GILMORE Primary Care Provider [phone] Reason for Visit * Reason Comments Med Refill Encounter Details Date Type Department Care Team (Late st Contact Info) Description 06/18/2023 Refill [facility] 230 [place], [place] [phone] Name, MD Eddie 230 [place], [place] [phone] Chronic pain syndrome Social History Tobacco Use [...] Description 10/29/2024 2:30 PM EDT Office Visit [facility] [address] [place] [address] Name, MD Eddie [address] [place] [address] documented as of this encounter Visit Diagnoses Diagnosis Chronic pain syndrome documented in this encounter Additional Health Concerns Assessment Noted Time PHQ-9 Depression Total Score: 10 023 1:16 PM EDT documented as of this encounter Care Teams Fish Cutting Machine Operator Relationship Specialty Start Date End Date Name, MD Eddie [address] [place] [address] PCP - General Family Medicine 09/16/15 [facility] documented as of this encounter
--- OUTSIDE RECORDS SUMMARY | 2024-08-14 10:28 | XMS_ITS | Encounter Summary ---
Author Organization [employer] Address [address] [place] [address] 7 [place] [address] Care Team Providers Care Hospice Care Consultant Name Role Phone Name, Eddie GILMORE Primary Care Provider [phone] Reason for Visit * Reason Comments Med Refill Encounter Details Date Type Department Care Team (Late st Contact Info) Description 05/08/2023 Refill [facility] 230 [place], [place] [phone] Name, MD Eddie 230 [place], [place] [phone] Chronic pain syndrome Social History Tobacco Use [...] Description 10/29/2024 2:30 PM EDT Office Visit [facility] [address] [place] [address] Name, MD Eddie [address] [place] [address] documented as of this encounter Visit Diagnoses Diagnosis Chronic pain syndrome documented in this encounter Additional Health Concerns Assessment Noted Time PHQ-9 Depression Total Score: 10 023 1:16 PM EDT documented as of this encounter Care Teams Hospice Care Consultant Relationship Specialty Start Date End Date Name, MD Eddie [address] [place] [address] PCP - General Family Medicine 09/16/15 [facility] documented as of this encounter
--- OUTSIDE RECORDS SUMMARY | 2024-08-14 10:28 | XMS_ITS | Encounter Summary ---
Author Organization [facility] [employer] [facility] Address [address] [place] [address] Care Team Providers Care Bow Rehairer Name Role Phone NameEddie MD Primary Care Provider [phone] Reason for Visit * Reason Comments Med Refill Encounter Details Date Type Department Care Team (Late Contact Info) Description 02/26/2023 Refill [facility]INE [address] [place] [address] [phone] NameEddie MD [address] [place] [address] [phone] Chronic pain syndrome Social History Tobacco Use [...] Description 10/29/2024 2:30 PM EDT Office Visit [facility] [address] [place] [address] [phone] Eddie Marshall MD [address] [place] [address] [phone] documented as of this encounter Visit Diagnoses Diagnosis Chronic pain syndrome documented in this encounter Additional Health Concerns Assessment Noted Time PHQ-9 Depression Total Score: 10 023 1:16 PM EDT documented as of this encounter Care Teams Bow Rehairer Relationship Specialty Start Date End Date Name, MD Eddie 230 [place] [address] PCP - General Family Medicine 09/16/15 Jerica Sim 07/01/24 documented as of this encounter
--- OUTSIDE RECORDS SUMMARY | 2024-08-14 10:28 | XMS_ITS | Encounter Summary ---
Author Organization [employer] [facility] Address [address] [place] [address] [place] [address] Care Team Providers Care Crop Roller Name Role Phone Name, Eddie GILMORE Primary Care Provider [phone] Reason for Visit * Reason Comments Med Refill Encounter Details Date Type Department Care Team (Late st Contact Info) Description 01/29/2023 Refill [facility] [address] [place] [address] [phone] Farhana Singh FNP [address] [place] [address] Dept [place] [address] Social History Tobacco Use Types Packs/Day Years [...] Description 10/29/2024 2:30 PM EDT Office Visit [facility] [address] [place] [address] [phone] Name, MD Eddie [address] [place] [address] [phone] documented as of this encounter Visit Diagnoses Not on filedocumented in this encounter Additional Health Concerns Assessment Noted Time PHQ-9 Depression Total Score: 10 023 1:16 PM EDT documented as of this encounter Care Teams Crop Roller Relationship Specialty Start Date End Date Name, MD Eddie 230 [place] [address] PCP - General Family Medicine 09/16/15 Jerica [facility] 07/01/24 documented as of this encounter
--- OUTSIDE RECORDS SUMMARY | 2024-08-14 10:28 | XMS_ITS | Encounter Summary ---
Author Organization [employer] Address [address] [place] [address] 7 [place] [address] Care Team Providers Care Industrial Spray Painter Name Role Phone Name, Eddie GILMORE Primary Care Provider [phone] Reason for Visit * Reason Onset Date Comments Active Med List 06/28/2023 Encounter Details Date Type Department Care Team ([facility] st Contact Info) Description 06/28/2023 Telephone [facility] 230 [place], [place] [phone] Name, MD Eddie 230 [place] [address] Active Med List Social History Tobacco Use [...] Be requesting a updated active medication list business writer did attempt to transfer to Medical records so that she can obtain this information but they kept transferring back to the call center. [facility] [address], [place], [place] [phone] documented in this encounter Plan of Treatment Upcoming Encounters Date Type Department Care Team (Late st Contact Info) Description 10/29/2024 2:30 PM EDT Office Visit [facility] [address] [place] [address] Name, MD Eddie 230 [place] [address] documented as of this encounter Visit Diagnoses Not on filedocumented in this encounter Additional Health Concerns Assessment Noted Time PHQ-9 Depression Total Score: 023 1:16 PM EDT documented as of this encounter Care Teams Industrial Spray Painter Relationship Specialty Start Date End Date Name, MD Eddie 230 [place] [address] PCP - General Family Medicine 09/16/15 Jerica SEN 07/01/24 documented as of this encounter
--- OUTSIDE RECORDS SUMMARY | 2024-08-14 10:28 | XMS_ITS | Encounter Summary ---
Author Organization [employer] Address [address] [place] [address] 7 [place] [address] Care Team Providers Care Senior Property Accountant Name Role Phone Name, Eddie GILMORE Primary Care Provider [phone] Reason for Visit * Reason Onset Date Comments Referral 02/02/2023 Back dated refer ral Encounter Details Date Type Department Care Team ([facility] st Contact Info) Description 02/02/2023 Telephone [facility] 230 [place], [place] [phone] Name, MD Eddie 230 [place] [address] Referral (Back dated referral ) Social History [...] 1:40 PM EDT Tc from Kasie at [facility] requesting status on message below regarding referral. Fax number [phone]. Any questions please call [phone] * Telephone Encounter - Amber Roger RN - 02/03/2023 10:34 AM EDT Please review message below regarding backdated referral for these dates * Telephone Encounter - Laure Mcgill - 02/02/2023 2:07 PM EDT Tc from Kasie at [facility] calling in regards to referral needing to be back dated. Patient was seen at the office on 01/03/23 and 01/11/23. Fax number [phone]. Any questions please call [phone]. documented in this encounter Plan of Treatment Upcoming Encounters Date Type Department Care Team (Late st Contact Info) Description 10/29/2024 2:30 PM EDT Office Visit [facility] [address] [place] [address] Name, MD Eddie [address] [place] [address] documented as of this encounter Visit Diagnoses Not on filedocumented in this encounter Additional Health Concerns Assessment Noted Time PHQ-9 Depression Total Score: 10 023 1:16 PM EDT documented as of this encounter Care Teams Senior Property Accountant Relationship Specialty Start Date End Date NameEddie MD [address] [place] [address] PCP - General Family Medicine 09/16/15 [facility] 07/01/24 documented as of this encounter
[2024-08-14 11:06] LABS: Phosphorus 2.6 mg/dL (2.7-4.5)
== END 2024-08-14 09:20 | disposition home or self-care (01) ==
LOC: HO.XRAY 09:19
PROVIDERS: Absent Provider Internal Medicine Endocrinology, Diabetes & Metabolism; PCP Internal Medicine Geriatric Medicine; Visit Provider Internal Medicine
DX: K21.9 Gastro-esophageal reflux disease without esophagitis (principal); M81.0 Age-related osteoporosis without current pathological fracture
CPT/HCPCS: 74221; 84100; 84165; 86335

== ENCOUNTER → 2024-08-14 09:52 | Outpatient (BNV) | payer MEDICARE, SELFPAY | PROVIDERS: Absent Provider Internal Medicine Endocrinology, Diabetes & Metabolism; PCP Internal Medicine Geriatric Medicine; Visit Provider Physician Assistant Surgical | DX: R13.10 Dysphagia, unspecified (principal) | CPT/HCPCS: 74246; 74248 ==

== ENCOUNTER 2024-08-26 10:17 | Outpatient (AMB) | payer MEDICARE, SELFPAY ==
--- NOTE | 2024-08-26 10:31 | MHC.OFFVIS ---
Vital Signs 08/26/24 10:34 Height 5 ft 2 in Weight 145 lb BMI 26.5 BP 98/57 L Blood Pressure Location Lt brachial Position Sitting Pulse 92 Intake Visit Reasons: 3 month follow up Intake Note: Celeste presents in the office as a 3 month follow up. CC: She states that she has been having lots of bloody noses. She states that she had a BA swallow and she was told she has a huge hiatal hernia and her stomach is in her chest. Bowels seem to be under control and she was told that the BA was gonna constipate her but instead that day she actually had diarrhea. She was in the ED once due to severe gas pains. Business Administration Instructor Required: No Allergies gluten Allergy (Verified 08/26/24 10:34) Unknown scallops Allergy (Verified 08/26/24 10:34) Unknown HPI Comments Details: This is a 77-year-old female with extensive coronary artery disease status post PCI May 2022, on dual anti-platelet therapy, hypertension, hyperlipidemia, who was recently admitted for severe anemia with GI consultation for GI bleed. Inpt consultation 11/20/22: History was obtained the patient, who states that she has been having intermittent abdominal pain with weakness, shortness of breath and lightheadedness for a few months now. Also reports an unintentional weight loss of > 10lbs in the last few months which she charts to diarrhea. In terms of the diarrhea, describes it as loose, watery occuring up to 5-6 times a day. Most recently has progressed in the last 2 weeks to the point that she is unable to step out of the home for more than a few minutes. Night time sx +. No blood in stool or melena. Specifically describes stool as yellow to brown. She was seen by her PCP for these sx on Monday who ordered blood work and she received a call Monday morning to go to the ER due to drop in H/H requiring blood transfusion. Last colo per her report was more than 5 years ago and was incomplete due to difficult sigmoid colon . She does not recall if she had a follow up barium enema or colonography. Son (Raymundo) at bedside also gives a hx of anemia a few years ago for which she was seen at [facility] but states that pt was told she had internal bleeding and was discharged from the ER, does not recall if a GI work up was recommended at that time. On arrival to the emergency room, she was noted to be hemodynamically stable.? Labs were significant for acute drop in hemoglobin to 7.2, with mildly elevated leukocytosis and a narrow MCV of 72.6.? s/p 2U PRBC transfusion. She also underwent CT abdomen pelvis with IV contrast that does not show any acute findings to explain the weight loss. 11/24/22 - EGD/colo: Impression: 1. Normal esophagus 2. Large Hill grade IV hiatal hernia 3. Normal stomach (biopsy) 4. Normal duodenum (biopsy) 5. Normal colon and terminal ileum mucosa 6. Diverticulosis 7. Internal hemorrhoids Path: A.? Duodenum, biopsy:? Duodenal mucosa within normal limits. B.? Stomach, random, biopsy:? Antral-type and oxyntic mucosa with mild chronic inactive inflammation; no Helicobacter organisms seen. 12/12/22: Pt comes in accompanied by her son for follow up post procedure. Of note, was recently informed by urgent care that stool study was positive for C Diff. On Vanc PO, has completed 5 days already. Otherwise, sx are unchanged: abd pain, bloating, diarrhea. Fatigue and shortness of breath better since improvement in anemia. Labs reviewed. CTE 01/16/23: Severe diverticulosis of the colon. Moderate size hiatal hernia. Small left renal stone. Areas of renal cortical thinning or scarring, left greater than right. 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 02/13/23: Currently no abd pain, N,V. Diarrhea resolved but comes and goes. Reports issues with fecal incontinence. Also sees UroGYN for urinary incontinence. Has been taking iron supplements daily. Pt also has been transitioned to plavix monotherapy from ASA+ brillinta. 07/31/23: Was seen by Carlotta Amador in the interim for question recurrent iron-deficiency anemia. Was advised to resume oral iron. However, patient reports that she has still not resumed the iron supplementation. She last to cut back in January. Labs reviewed, hemoglobin trending up, but ferritin is low at 18. 01/29/24: Seen in follow up. Reports improvement in abd cramping and frequent BMs by taking a gut supplement Christine. Has not had any incontinence either now. Main c/o is burning stinging pain on passing BMs and sometimes even when shes resting. No blood noted. DOes not strain or pass hard stools. [place] 2022 with int hemorrhoids otherwise normal appearing anorectum. Pt also has nightly heartburn despite taking pantoprazole. Has also been raising the head of her bed at night without much improvement. 05/22/24: Here for follow up. Pt again in a time crunch due to how she scheduled her transport back. Was never able to get her med for anal fissure. Reports persistent constipation but when administered enema had burning and noticed a streak of blood. In addition, also has heartburn rosanna at night, with nausea and regurgitation. Goes to sleep within an hour of taking her last meal of the day. Has known large hiatal hernia. On protonix (nexium prescribed but developed diarrhea and hives). Taking this alongside pepcid. NO change in appetite, no unintentional weight loss. 08/26/24: Here for follow up. Barium swallow completed - confirms large hiatal hernia. Pt already referred to foregut surgery - seeing Dr Aragon next week. Barium swallow 08/19/24: 1. Laryngeal penetration with thick and thin consistency barium. No subglottic aspiration was observed. 2. Mild esophageal dysmotility. 3. Large paraesophageal hernia, with the majority the fundus located within the thoracic cavity. 4. Moderate gastroesophageal reflux. 5. Thickened appearance of the gastric rugal folds, suggestive gastritis. 6. Small diverticulum noted in the second segment of duodenum. 7. Status post cholecystectomy. Pt also reports x2 episodes of large volume epistaxis last month. Was seen in [place]. H/H dropped from 12.1 to 10.9 within 5 days. Wonders if she should go back on iron supplements. [facility] Medical History Osteoporosis Lower GI bleed Rectal bleed Anemia Stable angina Essential hypertension CVA (cerebral vascular accident) CAD (coronary artery disease) Surgical History Status post cardiac catheterization History of cardiac cath History of adenoidectomy Hx of tonsillectomy Hx of hernia repair History of section History of cholecystectomy History of appendectomy Family History Mother Cancer Father Heart attack Social History Household Members: Children Housing: House Do you presently have visiting nurse or other home services: Yes Alcohol intake: never Patient Tobacco Use Status: Former Tobacco user Years Smoked: 30 +/- e-Cigarette/Vaping Use: Never Used Second Hand Smoke Exposure: No Substance Use Type: IV Drugs service: No Current occupational status: retired Current occupation: right hand dominant Review of Systems Const All systems reviewed & are unremarkable except as noted in HPI and below Physical Exam Vital Signs: Last Vital Signs Pulse 92 08/26/24 10:34 BP 98/57 L 08/26/24 10:34 BMI result Body Mass Index 26.5 No apparent distress Seated in wheelchair Nonicteric Alert and oriented x3 Assessment & Plan Assessment & Plan (1) GERD (gastroesophageal reflux disease): Code(s): K21.9 - Gastro-esophageal reflux disease without esophagitis Category: Medical (2) Hemorrhoids: Code(s): K64.9 - Unspecified hemorrhoids Category: Medical (3) Epistaxis: Code(s): R04.0 - Epistaxis Category: Medical (4) Hiatal hernia: Code(s): K44.9 - Diaphragmatic hernia without obstruction or gangrene Category: Medical (5) Osteoporosis: Code(s): M81.0 - Age-related osteoporosis without current pathological fracture Category: Medical Plan: #GERD # Large hiatal hernia minimal response to pantoprazole once daily. Has known large hiatal hernia. Seeing foregut surgery next week for ? candidacy for repair. - Cont protonix 40 BID - Pt to take this on empty stomach - cont to elevate HOB at least 30 deg - Avoid trigger foods #Epistaxis #anemia reports large volume epistaxis x2 last month. Seeing ENT now and already underwent cauterization once but tells me need additional sessions. Labs from [facility] reviewed. Plan: - Check CBC, iron studies - Start PO iron - pt on calcium supplements for bone health so reminded to space these out - Also offered IV venofer but pt would like to hold off for now to reduce doctors appts burden Follow up 6 months. Plan #GERD minimal response to pantoprazole once daily. Has known large hiatal hernia. - Increase protonix 40 BID - Pt to take this on empty stomach - Can DC pepcid with this - Barium swallow ordered for eval of hiatal hernia - cont to elevate HOB at least 30 deg - Avoid trigger foods #Intermittent rectal bleeding rosanna on digitalisation likely due to hemorrhoids vs anal fissure. PLan: - Avoid constipation and straining. - Was unable to get topical lidocaine for possible anal fissure due to OOP. Good Rx coupon given. - Cont sitz baths - If anal fissure persistent at next visit, can consider surgical referral Follow up 3 months. Orders: Orders IRON PROFILE Today R04.0 - Epistaxis Complete Blood Count no Diff Today R04.0 - Epistaxis Ferritin Today R04.0 - Epistaxis Coding Level of Care Code Est Pt Level 4 (02693) Diagnoses GERD (gastroesophageal reflux disease) K21.9 Hemorrhoids K64.9 Epistaxis R04.0 Hiatal hernia K44.9 Osteoporosis M81.0
[2024-08-26 10:34] VITALS: BP 98/57; PULSE 92; BMI 26.5
--- OUTSIDE RECORDS SUMMARY | 2024-08-26 11:34 | XMS_ITS | Encounter Summary ---
Author Organization [employer] Address [address] [place] [address] [address] [place] [address] Care Team Providers Care Advertising Executive Name Role Phone Name, Eddie GILMORE Primary Care Provider [phone] Encounter Details Date Type Department Care Team (Late st Contact Info) Description 08/14/2024 Orders Only GENERIC EXTERNAL DATA DEPARTMENT Provider, Generic External Data Social History Tobacco Use Types Packs/Day Years [...] Care Team (Late st Contact Info) Description 09/10/2024 9:45 AM EDT Office Visit [facility] [address] [place] [phone] 10/29/2024 2:30 PM EDT Office Visit [facility] [address] [place] [phone] Name, MD Eddie [address] [place] [phone] documented as of this encounter Procedures Procedure Name Priority Date/Time Associated Diagnosis Comments FL ESOPHAGUS BARIUM SWALLOW WITH AIR Routine 08/14/2024 9:52 AM EST IMMUNOFIXATION, URINE Routine 08/14/2024 9:41 AM EST PROTEIN, TOTAL AND PROTEIN ELECTROPHORESIS Routine 08/14/2024 9:37 AM EST PHOSPHATE ( PHOSPHORUS) Routine 08/14/2024 9:37 AM EST documented in this encounter Results * FL Esophagus Barium Swallow w/Air (08/14/2024 9:52 AM EST) Anatomical Region Laterality Modality Head, Neck Radiographic Tanya ging 08/14/2024 9:52 AM EST Narrative 08/15/2024 4:55 PM EST ? [facility] ?[address] ?[place] [address] ? Fluoroscopy Report ? Signed ? Patient: Jenniffer,Celeste ?MR#: [id number] ?? 4 ? : 1945 ?Acct:[id number] ? Age/Sex: 78 / F ?ADM Date: 02/26/25 ? Loc: HO.XRAY ? Attending Dr: Julia Li MD ? Ordering Physician: Julia Li MD ?? Date of Service: 08/14/24 ?? Procedure(s): FL barium swallow with air ?? Accession Number(s): [id number] ? cc: Joanna,Eddie GILMORE; Julia Li MD ? EXAMINATION: ?? XR FLUOROSCOPY UPPER GI WITH AIR ? CLINICAL INFORMATION: ?? Reflux. Dysphagia. ? COMPARISON: ?? None ? TECHNIQUE: ?? Fluoroscopic air contrast upper GI examination was performed utilizing ?? standard techniques with thin and thick barium and effervescent ?? granules. Numerous spot images were obtained. ? FINDINGS: ?? Lateral cine images of the oropharynx and hypopharynx demonstrate ?? normal swallow mechanism with normal epiglottic inversion and soft ?? palate elevation. There is laryngeal penetration with thick and thin ?? consistency barium. No tracheal penetration, glottic or subglottic ?? aspiration identified. No nasopharyngeal reflux present. Hypopharyngeal ?? structures appear normal without evidence of mass or diverticulum. ?? There was no significant cricopharyngeal achalasia. ? Surgical clips are present in the right upper quadrant. ? Dual and single contrast images of the esophagus demonstrate normal ?? caliber, contour, and mucosal pattern. No evidence of stricture, mass, ?? or ulcerations identified. Esophageal peristalsis is mildly ?? disorganized. ? A large paraesophageal hernia is present, with the majority of the ?? fundus located within the thoracic cavity. Gastroesophageal reflux is ?? seen up to level the aortic arch. ? Dual contrast and single contrast images of the stomach demonstrated a ?? normal contour. The gastric rugal folds have a thickened appearance, ?? suggestive gastritis. No masses or ulcerations are seen. Contrast ?? freely passed into the gastric antrum and duodenal bulb without delay. ? Single and air-contrast images of the duodenal bulb demonstrate no ?? abnormality. The duodenal sweep has a normal appearance, course, and ?? mucosal fold appearance. A small diverticulum is noted in the second ?? segment of the duodenum. The imaged proximal jejunum has a normal fold ?? pattern and caliber. ? FLUOROSCOPY TIME: ?? 2 minutes 58 seconds ? Number of Spot Images: 12 ?? Number of Cine: 12 ? DOSE AREA PRODUCT: ?? 1610 uGy-m2 (microgray-meter squared) ? FL/FL barium swallow with air ?? IMPRESSION: ?? 1. Laryngeal penetration with thick and thin consistency barium. ??No ?? subglottic aspiration was observed. ?? 2. Mild esophageal dysmotility. ?? 3. Large paraesophageal hernia, with the majority the fundus located ?? within the thoracic cavity. ?? 4. Moderate gastroesophageal reflux. ?? 5. Thickened appearance of the gastric rugal folds, suggestive ?? gastritis. ?? 6. Small diverticulum noted in the second segment of duodenum. ?? 7. Status post cholecystectomy. ? This procedure was performed by Devon Delvalle PA-C, and supervised by ?? Dr. Shore ? Electronically signed by: ??Sagar Shore MD ??08/15/2024 04:52 PM EST RP ? Dictated By: ?Devon Delvalle ? Signed By: ?<Electronically signed by Devon Delvalle in OV> ? 08/15/24 1652 ?<Electronically signed by Sagar Shore MD in OV> ? 08/15/24 1654 ? DD/ 0952 ? TD/TT: 08/14/24 1020 ? Community Nutrition Educator: ? Procedure Note Geoff, Sahil - 08/15/2024 [place] [address] Fluoroscopy Report Signed Patient: Celeste Abad#: [id number] 4 : 1945cct:[id number] Age/Sex: 78 / FADM Date: 08/14/24 Loc: HO.XRAY Attending Dr: Julia Li MD Ordering Physician: Julia Li MD Date of Service: 08/14/24 Procedure(s): FL barium swallow with air Accession Number(s): [id number] cc: Eddie Marshall MD; Julia Li MD EXAMINATION: XR FLUOROSCOPY UPPER GI WITH AIR CLINICAL INFORMATION: Reflux. Dysphagia. COMPARISON: None TECHNIQUE: Fluoroscopic air contrast upper GI examination was performed utilizing standard techniques with thin and thick barium and effervescent granules. Numerous spot images were obtained. FINDINGS: Lateral cine images of the oropharynx and hypopharynx demonstrate normal swallow mechanism with normal epiglottic inversion and soft palate elevation. There is laryngeal penetration with thick and thin consistency barium. No tracheal penetration, glottic or subglottic aspiration identified. No nasopharyngeal reflux present. Hypopharyngeal structures appear normal without evidence of mass or diverticulum. There was no significant cricopharyngeal achalasia. Surgical clips are present in the right upper quadrant. Dual and single contrast images of the esophagus demonstrate normal caliber, contour, and mucosal pattern. No evidence of stricture, mass, or ulcerations identified. Esophageal peristalsis is mildly disorganized. A large paraesophageal hernia is present, with the majority of the fundus located within the thoracic cavity. Gastroesophageal reflux is seen up to level the aortic arch. Dual contrast and single contrast images of the stomach demonstrated a normal contour. The gastric rugal folds have a thickened appearance, suggestive gastritis. No masses or ulcerations are seen. Contrast freely passed into the gastric antrum and duodenal bulb without delay. Single and air-contrast images of the duodenal bulb demonstrate no abnormality. The duodenal sweep has a normal appearance, course, and mucosal fold appearance. A small diverticulum is noted in the second segment of the duodenum. The imaged proximal jejunum has a normal fold pattern and caliber. FLUOROSCOPY TIME: 2 minutes 58 seconds Number of Spot Images: 12 Number of Cine: 12 DOSE AREA PRODUCT: 1610 uGy-m2 (microgray-meter squared) FL/FL barium swallow with air IMPRESSION: 1. Laryngeal penetration with thick and thin consistency barium. No subglottic aspiration was observed. 2. Mild esophageal dysmotility. 3. Large paraesophageal hernia, with the majority the fundus located within the thoracic cavity. 4. Moderate gastroesophageal reflux. 5. Thickened appearance of the gastric rugal folds, suggestive gastritis. 6. Small diverticulum noted in the second segment of duodenum. 7. Status post cholecystectomy. This procedure was performed by Devon Delvalle PA-C, and supervised by Dr. Shore Electronically signed by: Sagar Shore MD 08/15/2024 04:52 PM [facility] [place] Dictated By: Devon Delvalle Signed By: <Electronically signed by Devon Delvalle in OV> 08/15/24 1652 <Electronically signed by Sagar Shore MD in OV> 08/15/24 1654 DD/ 0952 TD/TT: 08/14/24 1020 Community Nutrition Educator: [facility] External Provider IMG FLU OROSCOPY PROCEDURES Final Result * Immunofixation (ALEXANDER), Urine (08/14/2024 9:41 AM EST) Pathologist [facility] ALEXANDER Interpretation SEE NOTE H [facility] Comment:Normal pattern. No m onoclonal proteins detected.The supplier of the testing reagents for this assayhas changed. Detection of small monoclonal proteins mayvary by test system.THIS TEST WAS PERFORMED AT:[employer] [facility] [place] [phone] PAYNE MD 08/14/2024 9:41 AM EST 08/14/2024 10:39 AM EST Generic External Data Provider LAB URINE ORDERAB LES Final Result [facility] [address] [place] [phone] * (ABNORMAL) Protein, Total and Protein??Electrophoresis (08/14/2024 9:37 AM EST) Prot Elec - Total Protein 6.7 6.1 - 8.1 g/dL [facility] Prot Elec - Albumin 3.2(A) 3.8 - 4.8 g/dL [facility] Prot Elec - Alpha1 0.4(A) 0.2 - 0.3 g/dL [facility] Prot Elec - Alpha2 1.1(A) 0.5 - 0.9 g/dL [facility] Prot Elec - Beta 1 0.5 0.4 - 0.6 g/dL [facility] Prot Elec - Beta 2 0.5 0.2 - 0.5 g/dL [facility] Prot Elec - Gamma 1.0 0.8 - 1.7 g/dL [facility] PES - Abn Protein Band 1 TNP [facility] PES-Abn Protein Band 2 TNP [facility] PES-Abn Protein Band 3 TNP [facility] Prot Elec - Interpretation SEE NOTE [facility] Comment:Evaluation is consis tent with an acute inflammatorypattern.THIS TEST WAS PERFORMED AT:[facility] [employer] [facility] [place] [phone] PAYNE MD 08/14/2024 9:37 AM EST 08/14/2024 9:41 AM EST Generic External Data Provider LAB BLOOD ORDERAB LES Final Result Performing Organization Address [facility]/ZIP Co de Phone Number [facility] [address] [place] [phone] * (ABNORMAL) Phosphate (As Phosphorus) (08/14/2024 9:37 AM EST) Phosphorus 2.6(L) 2.7 - 4.5 mg/dL [facility] 08/14/2024 9:37 AM EST 08/14/2024 9:41 AM EST Generic External Data Provider LAB BLOOD ORDERAB LES Final Result Performing Organization Address [facility] Co de Phone Number [facility] [address] [place] [phone] documented in this encounter Visit Diagnoses Not on filedocumented in this encounter Additional Health Concerns Assessment Noted Time PHQ-9 Depression Total Score: 9 05/10/20 24 11:56 AM EST documented as of this encounter Care Teams Advertising Executive Relationship Specialty Start Date End Date Name, MD Eddie [address] [place] [address] PCP - General Family Medicine [facility] documented as of this encounter
--- OUTSIDE RECORDS SUMMARY | 2024-08-26 11:34 | XMS_ITS | Encounter Summary ---
Author Organization [employer] Address [address] [facility] 7t [place] [address] Care Team Providers Care Purchasing Associate Name Role Phone Name, Eddie GILMORE Primary Care Provider [phone] Reason for Visit * Reason Onset Date Comments september recalls 08/09/2024 Encounter Details Date Type Department Care Team ([facility] st Contact Info) Description 08/09/2024 Telephone [facility] MEDICINE [address] [place], [place] [phone] Sophie Marie MA september recalls Social History [...] Description 09/10/2024 9:45 AM EDT Office Visit [facility] [address] [place] [address] 10/29/2024 2:30 PM EDT Office Visit [facility] [address] [place] [address] NameEddie MD [address] [place] [address] documented as of this encounter Visit Diagnoses Not on filedocumented in this encounter Additional Health Concerns Assessment Noted Time PHQ-9 Depression Total Score: 9 05/10/20 24 11:56 AM EST documented as of this encounter Care Teams Purchasing Associate Relationship Specialty Start Date End Date Eddie Marshall MD [address] [place] [address] PCP - General Family Medicine 09/16/15 Jerica SEN 07/01/24 documented as of this encounter
--- OUTSIDE RECORDS SUMMARY | 2024-08-26 11:34 | XMS_ITS | Encounter Summary ---
Author Organization [employer] Address [address] [place] [address] 7 [place] [address] Care Team Providers Care Bullard Machine Operator Name Role Phone Name, Eddie GILMORE Primary Care Provider [phone] Reason for Visit * Reason Onset Date Comments Active Med List 06/28/2023 Encounter Details Date Type Department Care Team ([facility] st Contact Info) Description 06/28/2023 Telephone [facility] MEDICINE [address] [place], [place] [phone] Name, MD Eddie [address] [place] [address] Active Med List Social History Tobacco Use [...] Be requesting a updated active medication list advertising copy writer did attempt to transfer to Medical records so that she can obtain this information but they kept transferring back to the call center. [facility] [address], [place] [phone] documented in this encounter Plan of Treatment Upcoming Encounters Date Type Department Care Team (Late st Contact Info) Description 09/10/2024 9:45 AM EDT Office Visit [facility] MED[facility]INE [address] [place] [address] 10/29/2024 2:30 PM EDT Office Visit [facility] [address] [place] [address] Name, MD Eddie [address] [place] [address] documented as of this encounter Visit Diagnoses Not on filedocumented in this encounter Additional Health Concerns Assessment Noted Time PHQ-9 Depression Total Score: 10 023 1:16 PM EDT documented as of this encounter Care Teams Bullard Machine Operator Relationship Specialty Start Date End Date Name, MD Eddie [address] [place] [address] PCP - General Family Medicine 09/16/15 Jerica SEN 07/01/24 documented as of this encounter
--- OUTSIDE RECORDS SUMMARY | 2024-08-26 11:34 | XMS_ITS | Encounter Summary ---
Author Organization [employer] Address [address] [facility] 7t [place] [address] Care Team Providers Care Cloth Winder Machine Operator Name Role Phone Name, Eddie GILMORE Primary Care Provider [phone] Encounter Details Date Type Department Care Team [...] Description 09/10/2024 9:45 AM EDT Office Visit [facility] [address] [place] [address] 10/29/2024 2:30 PM EDT Office Visit [facility] [address] [place] [address] Name, MD Eddie [address] [place] [address] documented as of this encounter Visit Diagnoses Not on filedocumented in this encounter Additional Health Concerns Assessment Noted Time PHQ-9 Depression Total Score: 9 05/10/20 24 11:56 AM EST documented as of this encounter Care Teams Cloth Winder Machine Operator Relationship Specialty Start Date End Date NameEddie MD [address] [place] [address] PCP - General Family Medicine 09/16/15 Jerica [facility] 07/01/24 documented as of this encounter
--- OUTSIDE RECORDS SUMMARY | 2024-08-26 11:34 | XMS_ITS | Encounter Summary ---
Author Organization [employer] Address [address] [place] [address] 7 [place] [address] Care Team Providers Care Front Desk Worker Name Role Phone Name, Eddie GILMORE Primary Care Provider [phone] Reason for Visit * Reason Comments Med Refill Encounter Details Date Type Department Care Team (Late st Contact Info) Description 08/19/2024 Refill [facility] MEDICINE 230 [place], [place] [phone] Name, MD Eddie [address] [place] [address] Social History Tobacco Use Types Packs/Day Years [...] Description 09/10/2024 9:45 AM EDT Office Visit [address] [address] 10/29/2024 2:30 PM EDT Office Visit [address] [address] NameEddie MD [address] [place] [address] documented as of this encounter Visit Diagnoses Not on filedocumented in this encounter Additional Health Concerns Assessment Noted Time PHQ-9 Depression Total Score: 9 05/10/20 24 11:56 AM EST documented as of this encounter Care Teams Front Desk Worker Relationship Specialty Start Date End Date NameEddie MD [address] [place] [address] PCP - General Family Medicine 09/16/15 Jerica SEN 07/01/24 documented as of this encounter
--- OUTSIDE RECORDS SUMMARY | 2024-08-26 11:34 | XMS_ITS | Encounter Summary ---
Author Organization [employer] Address [address] [place] [address] 7 [place] [address] Care Team Providers Care Fruit Sprayer Name Role Phone Name, Eddie GILMORE Primary Care Provider [phone] Reason for Visit * Reason Onset Date Comments Med Refill 08/09/2024 Encounter Details Date Type Department Care Team ([facility] st Contact Info) Description 08/09/2024 Refill [facility] MEDICINE 230 [place], [place] [phone] Name, MD Eddie 230 [place], [place] [phone] Chronic pain syndrome Social History Tobacco Use [...] 5-325 MG tablet To be sent to: [facility] Pharmacy documented in this encounter Plan of Treatment Upcoming Encounters Date Type Department Care Team (Late st Contact Info) Description 09/10/2024 9:45 AM EDT Office Visit [facility] MEDICINE [address] [place] [address] 10/29/2024 2:30 PM EDT Office Visit [facility] MED[facility]INE [address] [place] [address] NameEddie MD [address] [place] [address] documented as of this encounter Visit Diagnoses Diagnosis Chronic pain syndrome documented in this encounter Additional Health Concerns Assessment Noted Time PHQ-9 Depression Total Score: 9 05/10/20 24 11:56 AM EST documented as of this encounter Care Teams Fruit Sprayer Relationship Specialty Start Date End Date NameEddie MD [address] [place] [address] PCP - General Family Medicine 09/16/15 Jerica SEN 07/01/24 documented as of this encounter
--- OUTSIDE RECORDS SUMMARY | 2024-08-26 11:34 | XMS_ITS | Encounter Summary ---
Author Organization [employer] Address [address] [place] [address] [place] [address] Care Team Providers Care Treating Engineer Name Role Phone Name, Eddie GILMORE Primary Care Provider [phone] Reason for Visit * Reason Onset Date Comments Hospital Follow-up 11/10/2022 Encounter Details Date Type Department Care Team (Late st Contact Info) Description 11/10/2022 Refill [facility]INE 230 [place], [place] [phone] Name, MD Eddie 230 [place] [address] Social History Tobacco Use Types Packs/Day Years [...] Jackman Sent: 11/21/2022 5:23 PM EDT To: [facility] Team Nurses Hi team! Sent this pt to the ED over the weekend for Hgb 7. Got admitted and looks like recently discharged. Can you please outreach her for status check and sched HDF w/ Name? Thank you!! * Telephone Encounter - Suzette Singh RN - 11/22/2022 11:10 AM EDT T/C to [phone] to schedule HDF apt. No answer. LVM to call back on [phone]. ----- Message from Amber Roger RN sent at 11/22/2022 9:06 AM EDT ----- ----- Message ----- From: DENIS Jackman Sent: 11/21/2022 5:23 PM EDT To: [facility] [employer] Team Nurses Co team! Sent this pt to the ED over the weekend for Hgb 7. Got admitted and looks like recently discharged. Can you please outreach her for status check and sched HDF w/ DrRod Name? Thank you!! documented in this encounter Plan of Treatment Upcoming Encounters Date Type Department Care Team (Late st Contact Info) Description 09/10/2024 9:45 AM EDT Office Visit [facility] [address] [place] [address] 10/29/2024 2:30 PM EDT Office Visit [facility] [address] [place] [address] Name, MD Eddie [address] [place] [address] documented as of this encounter Visit Diagnoses Not on filedocumented in this encounter Care Teams Treating Engineer Relationship Specialty Start Date End Date NameEddie MD [address] [place] [address] PCP - General Family Medicine 09/16/15 Jerica SEN 07/01/24 documented as of this encounter
--- OUTSIDE RECORDS SUMMARY | 2024-08-26 11:34 | XMS_ITS | Encounter Summary ---
Author Organization [employer] Address [address] [facility] 7t [place] [address] Care Team Providers Care Supervisor Car Installations Name Role Phone Name, Eddie GILMORE Primary Care Provider [phone] Reason for Visit * Reason Onset Date Comments september recalls 08/09/2024 Encounter Details Date Type Department Care Team ([facility] st Contact Info) Description 08/09/2024 Telephone [facility] MEDICINE [address] [place], [place] [phone] Sophie Marie MA september recalls Social History [...] Description 09/10/2024 9:45 AM EDT Office Visit [facility] MEDICINE [address] [place] [address] 10/29/2024 2:30 PM EDT Office Visit [address] [address] NameEddie MD [address] [place] [address] documented as of this encounter Visit Diagnoses Not on filedocumented in this encounter Additional Health Concerns Assessment Noted Time PHQ-9 Depression Total Score: 9 05/10/20 24 11:56 AM EST documented as of this encounter Care Teams Supervisor Car Installations Relationship Specialty Start Date End Date Eddie Marshall MD [address] [place] [address] PCP - General Family Medicine 09/16/15 Jerica SEN 07/01/24 documented as of this encounter
--- OUTSIDE RECORDS SUMMARY | 2024-08-26 11:34 | XMS_ITS | Clinical Summary ---
Author Organization [employer] Address [address] [place] [address] 7[address] [place] [address] Care Team Providers Care Park Naturalist Name Role Phone Name, Eddie GILMORE Primary Care Provider [phone] Allergies Active Allergy Reactions Criticality Noted Date [...] 06/01/20 22 Active Blood Glucose Monitoring Suppl (Zendesk Verio Flex System) w/Device kit USE DIRECTED [...] in the morning. 01/10/20 23 Active Lancets (MedShapeuch Delica Plus [id number]) miscIndications :Controlled type 2 diabetes mellitus with complication, without long-term current use of insulin ([facility]) USE TO CHECK BLOOD SUGAR TWICE A DAY 100 each 5 09/15/19 24 Active glucose blood (MedShapeuch Verio) test stripIndication s:Controlled type 2 diabetes [...] per day. OTC 90 tablet 2 03/28/20 24 Active melatonin 5 MG tablet Take 2 tablets by mouth Once per day. At bedtime 03/28/20 24 Active betamethasone valerate (Valisone) 0.1 % cream APPLY A THIN LAYER ONTO THE SKIN TO THE AFFECTED AREAS ONCE DAILY 15 g 05/22/20 24 Active atorvastatin (Lipitor) 40 MG tablet [...] 2024. 84 tablet 08/12/19 25 2024 Active albuterol 108 (90 Base) MCG/ACT inhaler INHALE 2 PUFFS BY MOUTH EVERY 4 TO 6 HOURS NEEDED 8.5 g 1 08/20/19 25 Active oxyCODONE-aceta minophen (Percocet) 5-325 MG tabletIndicatio ns:Chronic pain syndrome Take 1 tablet by mouth every 8 (eight) hours if needed for severe pain for up to 28 days. Do not start before July 15, 2024. 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 She understands this is the [...] Encounters Date Type Department Care Team Description 08/19/2024 Refill [facility] [place] [address] Eddie Marshall MD 08/14/2024 Orders Only GENERIC EXTERNAL DATA DEPARTMENT Provider, Generic External Data 08/13/2024 Telephone [facility] [place] [address] Eddie Marshall MD Appointment Request 08/09/2024 Telephone [facility] [place] [address] Sophie Marie MA september recalls 08/09/2024 Telephone [facility] [place] [address] Sophie Marie MA september recalls 08/09/2024 Refill [facility] [place] [address] Eddie Marhsall MD Chronic pain syndrome 08/02/2024 2:30 PM EST Office Visit [facility] [place] [address] Latanya Hoover MD Epistaxis (Primary Dx); Controlled type 2 diabetes mellitus with complication, without long-term current use of insulin ([facility]); Dietary counseling; Exercise counseling; Overweight; Anemia, unspecified type 08/02/2024 Travel 07/30/2024 Telephone [facility] [place] [address] Eddie Marshall MD ER Follow-up 07/23/2024 9:00 AM EST Office Visit [facility] [place] [address] Kelly Montoya MD Chronic pain syndrome (Primary Dx) 07/23/2024 Travel 07/17/2024 Refill [facility] [place] [address] Eddie Marshall MD 07/16/2024 9:45 AM EST Office Visit [facility] [address] [place] [phone] Mckenzie Trent FNP Chronic pain syndrome (Primary Dx); penitentiary (current) use of opiate analgesic 07/16/2024 9:15 AM EST Office Visit [facility] [address] [place] [phone] Kelly Montoya MD Chronic pain syndrome (Primary Dx) 07/16/2024 Orders Only [facility] External Provider, [facility] 07/16/2024 Travel 07/12/2024 Refill [facility] [address] [place] [phone] NameEddie MD 07/12/2024 Refill [facility] [address] [place] [address] Eddie Marshall MD Chronic pain syndrome 07/02/2024 Telephone [facility] [address] [place] [phone] Eddie Marshall MD 06/10/2024 Telephone [facility] [address] [place] [address] Eddie Marshall MD Med Refill 06/10/2024 Refill [facility] [address] [place] [phone] 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, 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 pain syndrome 06/03/2024 Telephone [facility] [address] [place] [phone] Eddie Marshall MD Medication Question 05/29/2024 Orders Only [facility] [address] [place] [address] Eddie Marshall MD 05/29/2024 Telephone [facility] [address] [place] [phone] 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, RN Pt agreeable Fosamax 05/29/[address] [address] Eddie Marshall MD Medication Question from Last 3 Months Immunizations Name Administration Dates Next Due Influenza injectable quadriv alent IIV4 with preservative 04/07/2016 Influenza, IIV3, injectable 03/23/2015,1 ,03/08/2013,04/06,05/01/2008,04/19/2007,05/10/2006 ,03/15/2005 Novel [id number], preservative-free 05/22/2009 Pneumococcal Polysaccharide PPSV23 07/11/2013, TD [...] Description 09/10/2024 9:45 AM EDT Office Visit [facility] [address] [place] [phone] 10/29/2024 2:30 PM EDT Office Visit [facility] [address] [place] [phone] Name, MD Eddie [address] [place] [phone] Health Maintenance Due Date Last Done Comments Zoster Vaccines (1 of 2) 1996 Pneumococcal Vaccine: 50+ Years (2 of 2 - PCV) 07/11/2014 07/11/2013, 03/02/2005 DTaP/Tdap/Td Vaccines (1 - Tdap) 03/25/2017 03/24/2017, 03/31/2003 RSV Patients and Patients Aged 60 years or older (1 - 1-dose 75+ series) 2021 COVID-19 Vaccine (1 - season) 2024 Influenza Vaccine (#1) 2024 [...] ( PHOSPHORUS) Routine 08/14/2024 9:37 AM EST POCT GLYCATED HEMOGLOBIN, TOTAL Routine 08/02/2024 2:14 PM EST Controlled type 2 diabetes mellitus with complication, without long-term current use of insulin (CMS/HCC) POCT GLUCOSE Routine 08/02/2024 2:14 PM EST Controlled type 2 diabetes mellitus with complication, without long-term current use of insulin (CMS/HCC) XR KUB AND UPRIGHT 2 VIEWS Routine 07/16/2024 7:07 PM EST LIPASE Routine 07/16/2024 7:06 PM EST MAGNESIUM Routine 07/16/2024 7:06 PM EST BASIC METABOLIC PANEL Routine 07/16/2024 7:06 PM EST HEPATIC FUNCTION PANEL Routine 7:06 PM EST CBC WITH AUTO DIFFERENTIAL Routine 07/16/2024 7:06 PM EST SARS COV2/INFLUENZA A/B AND RSV RNA QL NAAT Routine 07/16/2024 7:06 PM EST POCT ADRAIN-14 URINE DRUG SCREEN Routine 07/16/2024 1:49 PM EST penitentiary (current) use of opiate analgesic AMB REFERRAL TO ORTHOPAEDIC SURGERY Routine 06/03/2024 Chronic right shoulder pain LIPID PANEL, STANDARD Routine 01/16/2024 9:40 AM EDT Controlled type 2 diabetes mellitus with complication, without long-term current use of insulin (CMS/HCC) ALBUMIN, RANDOM URINE W/CREATININE Routine 01/16/2024 9:35 AM EDT Primary hypertension HM DIABETES EYE EXAM Routine 05/16/2023 HEPATITIS PANEL, GENERAL Routine 11/18/2022 2:07 PM EDT Diarrhea, unspecified type from Last 3 Months or Most Recently Relevant to Health Maintenance Results * FL Esophagus Barium Swallow w/Air (08/14/2024 9:52 AM EST) Anatomical Region Laterality Modality Head, Neck Radiographic Tanya ging 08/14/2024 9:52 AM EST Narrative 08/15/2024 4:55 PM EST ? [facility] ?[address] ?[place] [address] ? Fluoroscopy Report ? Signed ? Patient: Celeste Abad ?MR#: [id number] ?? 4 ? : 1945 ?Acct:[id number] ? Age/Sex: 78 / F ?ADM Date: 08/14/24 ? Loc: HO.XRAY ? Attending Dr: Julia Li MD ? Ordering Physician: Julia Li MD ?? Date of Service: 08/14/24 ?? Procedure(s): FL barium swallow with air ?? Accession Number(s): [id number] ? cc: Eddie Marshall MD; Julia Li MD ? EXAMINATION: ?? XR [...] Shore MD ??08/15/2024 04:52 PM EST RP ?? Workstation: [id number] ? Dictated By: ?Devon Delvalle ? Signed By: ?<Electronically signed by Devon Delvalle in OV> ? 08/15/24 1652 ?<Electronically signed by Sagar Shore MD in OV> ? 08/15/24 1654 ? DD/ 0952 ? TD/TT: 08/14/24 1020 ? Statistical Clerk Advertising: ? Procedure Note Sahil Tellez - 08/15/[address] [address] Fluoroscopy Report Signed Patient: Celeste Abad#: [id number] 4 : 7Acct:[id number] Age/Sex: 78 / FADM Date: 08/14/24 Loc: HO.XRAY Attending Dr: Julia Li MD Ordering Physician: Julia Li MD Date of Service: 08/14/24 Procedure(s): FL barium swallow with air Accession Number(s): [id number] cc: Name,Eddie GILMORE; Julia Li MD EXAMINATION: XR FLUOROSCOPY UPPER [...] cholecystectomy. This procedure was performed by Devon eDlvalle PA-C, and supervised by Dr. Shore Electronically signed by: Sagar Shore MD 08/15/2024 04:52 PM EST RP Workstation: [id number] Dictated By: Devon Delvalle Signed By: <Electronically signed by Devon Delvalle in OV> 08/15/24 1652 <Electronically signed by Sagar Shore MD in OV> 08/15/24 1654 DD/ 0952 TD/TT: 08/14/24 1020 Statistical Clerk Advertising: [facility] External Provider IMG FLU OROSCOPY PROCEDURES Final Result * Immunofixation (ALEXANDER), Urine (08/14/2024 9:41 AM EST) [facility] ALEXANDER Interpretation SEE NOTE H [facility] Comment:Normal pattern. No m onoclonal proteins detected.The supplier of the testing reagents for this assayhas changed. Detection of small monoclonal proteins mayvary by test system.THIS TEST WAS PERFORMED AT:[facility] [place] [id number] PAYNE MD 08/14/2024 9:41 AM EST 08/14/2024 10:39 AM EST Generic External Data Provider LAB URINE ORDERAB LES Final Result [facility] [address], [place] [phone] * (ABNORMAL) Protein, Total and Protein??Electrophoresis (08/14/2024 9:37 AM EST) Pathologist [facility] Prot Elec - Total Protein 6.7 6.1 - 8.1 g/dL [facility] Prot Elec - Albumin 3.2(A) 3.8 - 4.8 g/dL [facility] Prot Elec - Alpha1 0.4(A) 0.2 - 0.3 g/dL [facility] Prot Elec - Alpha2 1.1(A) 0.5 - 0.9 g/dL [facility] Prot Elec - Beta 1 0.5 0.4 - 0.6 g/dL [facility] Prot Elec - Beta 2 0.5 0.2 - 0.5 g/dL [facility] Prot Elec - Gamma 1.0 0.8 - 1.7 g/dL [facility] PES - Abn Protein Band 1 TNP [facility] PES-Abn Protein Band 2 TNP [facility] PES-Abn Protein Band 3 [facility] Prot Elec - Interpretation SEE NOTE [facility] Comment:Evaluation is consis tent with an acute inflammatorypattern.THIS TEST WAS PERFORMED AT:[facility] [place] [phone] PAYNE MD 08/14/2024 9:37 AM EST 08/14/2024 9:41 AM EST Generic External Data Provider LAB BLOOD ORDERAB LES Final Result Performing Organization Address [facility] Co de Phone Number [facility] [address] [place] [phone] * (ABNORMAL) Phosphate (As Phosphorus) (08/14/2024 9:37 AM EST) Phosphorus 2.6(L) 2.7 - 4.5 mg/dL [facility] 08/14/2024 9:37 AM EST 08/14/2024 9:41 AM EST Generic External Data Provider LAB BLOOD ORDERAB LES Final Result Performing Organization Address [facility] Co de Phone Number [facility] [address] [place] [phone] * (ABNORMAL) POCT HGB A1C (08/02/2024 2:14 PM EST) Pathologist [facility] Hemoglobin A1C 6.2(A) 4.0 - 6.0 % QC Media Lot # [id number] Lot# Expiration Date ,026 Blood 08/02/2024 2:14 PM EST us Latanya Hoover MD POINT OF CARE TEST ENTER/EDIT ORDERABLES Final Result * POCT Glucose (08/02/2024 2:14 PM EST) Pathologist [facility] Glucose Blood, POC 131 60 - 200 mg/dL QC Media Lot # [id number] Lot# Expiration Date 172,025 Blood Capillary blood specimen / Unknown 08/02/2024 2:14 PM EST us Latanya Hoover MD POINT OF CARE TEST ENTER/EDIT ORDERABLES Edited Result - Final * XR KUB and Upright 2 Views (07/16/2024 7:07 PM EST) Anatomical Region Laterality Modality Radiographic Tanya ging 07/16/2024 7:07 PM EST Narrative 07/16/2024 7:07 PM EST ? [facility] ?[address] ?[place] [address] ?XRay Report ? Signed ? Patient: Jenniffer,Celeste ?MR#: [id number] ?? 4 ? : 1945 ?Acct:[id number] ? Age/Sex: 78 / F ?ADM Date: 07/16/24 ? Loc: HO.ED ? Attending Dr: ? Ordering Physician: Rhea Ken ?? Date of Service: 07/16/24 ?? Procedure(s): XR KUB ?? Accession Number(s): [id number] ? cc: Jesus Manuel,Rhea DALAL; Name,Eddie GILMORE ? CLINICAL HISTORY: ABD pain [...] ? DD/ 06 ? TD/TT: 07/16/241906 ? Statistical Clerk Advertising: ? Procedure Note Donotuseinterpreter, Image - 07/16/[address] [address] XRay Report Signed Patient: Celeste AbadMR#: [id number] 4 : 7Acct:[id number] Age/Sex: 78 / FADM Date: 07/16/24 Loc: HO.ED Attending Dr: Ordering Physician: Rhea Ken Date of Service: 07/16/24 Procedure(s): XR KUB Accession Number(s): [id number] cc: Rhea Ken; Name,Eddie GILMORE CLINICAL HISTORY: [...] in OV> 07/16/241906 DD/ 06 TD/TT: 07/16/241906 Statistical Clerk Advertising: [facility] External Provider IMG XR PROCEDURES Final Result * SARS-CoV-2 RNA, Influenza A/B, and RSV RNA, Ql NAAT (07/16/2024 7:06 PM EST) Influenza A PCR NEGATIVE Negative [facility] Influenza B PCR NEGATIVE Negative [facility] Resp Syncy Virus RNA Qual PCR NEGATIVE Negative [facility] SARS COV2 PCR NEGATIVE Negative [facility] Comment:All test results mus t [...] use by authorized laboratories.Testing performed on the [employer] GeneXpert utilizingreal-time RT-PCR.All SARS CoV2 and positive influenza A/B results arereported to [facility]. 07/16/2024 7:06 PM EST 07/16/2024 7:11 PM EST us Generic External Data Provider LAB MICROBIOLOGY - GENERAL ORDERABLES Final Result [facility] [address] [place] [address] [phone] * (ABNORMAL) CBC auto differential (07/16/2024 7:06 PM EST) White Blood Count 10.1 4.8 - 10.8 X10*3/uL [facility] Red Blood Count 4.68 4.20 - 5.50 X10*6/uL [facility] Hemoglobin 13.3 12.0 - 16.0 g/dl [facility] Hematocrit 40.7 37.0 - 47.0 % [facility] Mean Corpuscular Volume 87.0 80.0 - 98.0 fL [facility] Mean Corpuscular Hemoglobin 28.4 27.0 - 33.0 pg [facility] Mean Corpuscular HGB Conc 32.7 31.0 - 35.0 g/dl [facility] Red Cell Distribution Width 15.0 11.0 - 16.0 % [facility] Platelet Count 272 160 - 400 X10*3/uL [facility] Mean Platelet Volume 9.9 9.4 - 12.3 fL [facility] Neutrophils Percent Auto 74.5(H) 45 - 73 % [facility] Imm Gran Pct Auto 0.3 0.0 - 0.4 % [facility] Lymphocytes Percent Auto 16.3(L) 20 - 40 % [facility] Monocytes Percent Auto 8.0 2 - 11 % [facility] Eosinophils Percent Auto 0.7 0 - 4 % [facility] Basophils Percent Auto 0.2 0 - 2 % [facility] NRBC Pct Auto 0.0 0.0 - 0.2 /100WBC [facility] Neutrophils Absolute Auto 7.6 2.0 - 8.3 x10*3/uL [facility] Imm Gran Abs Auto 0.03 0.00 - 0.03 X10*3/uL [facility] Lymphocytes Absolute Auto 1.7 1.2 - 4.9 X10*3/uL [facility] Monocytes Absolute Auto 0.8 0.1 - 1.2 X10*3/uL [facility] Eosinophils Absolute Auto 0.1 0.0 - 0.4 X10*3/uL [facility] Basophils Absolute Auto 0.0 0.0 - 0.2 X10*3/uL [facility] NRBC Abs Auto 0.000 0.0 - 0.012 X10*3/uL [facility] 07/16/2024 7:06 PM EST 07/16/2024 7:11 PM EST us Generic External Data Provider LAB BLOOD ORDERAB LES Final Result Performing Organization Address [facility] Co de Phone Number [facility] [address] [place] [phone] * Magnesium (07/16/2024 7:06 PM EST) Magnesium 2.2 1.6 - 2.6 mg/dL [facility] 07/16/2024 7:06 PM EST 07/16/2024 7:11 PM EST us Generic External Data Provider LAB BLOOD ORDERAB LES Final Result Performing Organization Address City/[facility] Co de Phone Number [facility] [address] [place] [phone] * Lipase (07/16/2024 7:06 PM EST) Pathologist [facility] Lipase 8 8 - 78 U/L [facility] 07/16/2024 7:06 PM EST 07/16/2024 7:11 PM EST Generic External Data Provider LAB BLOOD ORDERAB LES Final Result Performing Organization Address [facility]/ZIP Co de Phone Number [facility] [address] [place] [phone] * (ABNORMAL) Hepatic Function Panel (07/16/2024 7:06 PM EST) [facility] Bilirubin, Total 0.4 0.0 - 1.0 mg/dL [facility] Bilirubin, Direct 0.2 0.0 - 0.5 mg/dL [facility] Aspartate Amino Transferase 37(H) 5 - 31 U/L [facility] Alanine Aminotransferase 27 0 - 31 U/L [facility] Total Protein 7.5 6.5 - 8.0 g/dL [facility] Albumin Level 3.9 3.5 - 5.0 g/dL [facility] Alkaline Phosphatase 136(H) 39 - 117 U/L [facility] 07/16/2024 7:06 PM EST 07/16/2024 7:11 PM EST Generic External Data Provider LAB BLOOD ORDERAB LES Final Result Performing Organization Address City/[facility]/ZIP Co de Phone Number [facility] [address] [place] [phone] * (ABNORMAL) Basic Metabolic Panel (07/16/2024 7:06 PM EST) Pathologist [facility] Sodium 139 135 - 145 mmol/L [facility] Potassium 4.3 3.3 - 5.1 mmol/L [facility] Chloride 102 96 - 108 mmol/L [facility] Carbon Dioxide 25 22 - 29 mmol/L [facility] Anion Gap 16 12 - 20 [facility] Urea Nitrogen (BUN) 18(H) 9 - 16 mg/dL [facility] Creatinine, Serum 0.73 0.5 - 1.4 mg/dL [facility] Creatinine Clr Calc Pharmacy 58.3 [facility] Comment:Provided height and weight: 157.48 cm,68.039 kg.eGFR (calculated from the MDRD study equation) and eCrCl(calculated from the Cockcroft-Gault equation) are based ondifferent parameters and may not yield comparable results.If eCrCl result is absurd, please check patient'sheight/weight. Estimated Glomerular Filt Rate >60 [facility] Comment:Chronic Kidney Disea se: Estimated GFR < 60 mL/min/1.94m4Dwvxqh Kidney Disease: Estimated GFR < 15 mL/min/1.73m2 Glucose 124(H) 60 - 115 mg/dL [facility] Calcium 9.1 8.4 - 10.2 mg/dL [facility] 07/16/2024 7:06 PM EST 07/16/2024 7:11 PM EST us Generic External Data Provider LAB BLOOD ORDERAB LES Final Result [facility] [address] [place] [phone] * POCT ADRIAN-14 Urine Drug Screen (07/16/2024 1:49 PM EST) Oxycodone Screen, Urine Positive Urine Urine specimen obtained by clean catch procedure / Unknown 07/16/2024 1:49 PM EST Mckenzie Trent BURN NURSE POINT OF CARE TEST ENTER/EDIT ORDERABLES Final Result * Referral to Orthopaedic Surgery (06/03/2024) Eddie Marshall MD OUTPATIENT REFERRAL ORDERABLES F inal Result * (ABNORMAL) Lipid Panel, Standard (01/16/2024 9:40 AM EDT) Triglycerides 199(H) <150 mg/dL [facility] Comment:Desirable Triglyceri de: less than 150 mg/dLBorderline High Triglyceride 150-199 mg/dLHigh Triglyceride: 200-499 mg/dLVery High Triglyceride: greater than or equal to 5OO mg/dL Cholesterol 150 <200 mg/dL [facility] Comment:Desirable Cholestero l: less than 200 mg/dLBorderline High Cholesterol: 200-239 mg/dLHigh Cholesterol: greater than 239 mg/dL LDL Cholesterol Calculated 63 <100 mg/dL [facility] Comment:Desirable LDL: less than 100 mg/dLNear Optimal/Above Optimal LDL: 110- 129 mg/dLBorderline High LDL: 130-159 mg/dLHigh LDL: 160-189 mg/dLVery High LDL: greater than or equal to 190 mg/dL HDL Cholesterol 48 >40 mg/dL [facility] Comment:Desirable HDL: great er than 40 mg/dL Note: This HDL assay may give artificially low results in patients with liver disease. Blood Venous blood specimen / Unknown 01/16/2024 9:40 AM EDT 01/16/2024 11:20 AM EDT us Eddie Name LAB BLOOD ORDERABLES Final Resul t [facility] [address] [place] [phone] * Albumin, Random Urine W/Creatinine (01/16/2024 9:35 AM EDT) Creatinine, Urine 27.62 mg/dL [facility] Microalbumin Urine <5.0 mg/L [facility] Microalbum Creatinine Ratio Ur TNP <30 ug/mg cr [facility] Comment:Unable to calculate albumin/creatinine ratio due to lowmicroalbumin or creatinine result. Urine (Urine, Random) 01/16/2024 9:35 AM EDT 01/16/2024 11:12 AM EDT us Eddie Marshall MD LAB URINE ORDERABLES Final Resul t Performing Organization Address City/State/[facility] Co de Phone Number [facility] [address] [place] [phone] * Hm Diabetes Eye Exam (05/16/2023) Eye Exam Normal Normal Result [facility] Eddie Marshall MD HEALTH MAINTENANCE Final Result * (ABNORMAL) Hepatitis Panel, General (11/18/2022 2:07 PM EDT) Hepatitis A Antibody Total REACTIVE( A) NON-REACT NAHID [facility] Comment: For additional information, please refer to [email or web address] (This link is being provided for informational/ educational purposes only.) Hepatitis B Surface Antibody QL NON-REACT NAHID NON-REACT NAHIDBellybaloo [facility]Kind[facility] Hepatitis B Surface Ag NON-REACT NAHID NON-REACT NAHID [facility] [place] [facility] Hepatitis B Core Antibody Total NON-REACT NAHID NON-REACT NAHIDBellybaloo [facility]atoriumProduct[facility] Hepatitis C Antibody NON-REACT NAHID NON-REACT NAHID [facility] [place] [employer] Index 0.07 <1.00 [facility] Comment: HCV antibody was non-reactive. There is no laboratory evidence of HCV infection. In most cases, no further action is required. However, if recent HCV exposure is suspected, a test for HCV RNA (test code 28901) is suggested. For additional information please refer to [email or web address]/HTL35b7 (This link is being provided for informational/ educational purposes only.) 11/18/2022 2:07 PM EDT 11/18/2022 2:09 PM EDT Narrative [facility] - 11/19/2022 6:51 AM EDT COLLECTION KIT GIVEN TO PATIENT. PATIENT ADVISED TO RETURN. us Mckenzie RODRIGUEZ LAB BLOOD ORDERABLES Final Res ult [facility] [address], [place] [address] [facility] [address] [place] [address] from Last 3 Months or Most Recently Relevant to Health Maintenance Insurance WILBUR MANZANO [employer] [id number] Care Teams Park Naturalist Relationship Specialty Start Date End Date Name, MD Eddie [address] [place] [address] PCP - General Family Medicine 09/16/15 [facility] 07/01/24
--- OUTSIDE RECORDS SUMMARY | 2024-08-26 11:34 | XMS_ITS | Encounter Summary ---
Author Organization [employer] Address [address] [place] [address] 7 [place] [address] Care Team Providers Care Supervisor Hand Silvering Name Role Phone Name, Eddie GILMORE Primary Care Provider [phone] Reason for Referral * Consultation (STAT) - Closed Specialty Diagnoses / Procedures Referred By Karyn tyler Referred To Contact Otolaryngology Diagnoses Epistaxis Latanya Hoover MD [address] [place] [address] Phone: tel: fax: [facility] [address] Phone: tel: fax: Referral ID Status Reason Start Date Expiration Date V isits Requested Visits Authorized [id number] Closed Specialty Services Required 08/02/2024 08/02/2025 1 1 Reason for Visit * Reason Comments Hospital Follow-up Encounter Details Date Type Department Care Team (Late st Contact Info) Description 08/02/2024 2:30 PM EST Office Visit [facility] 230 [place], [place] [phone] Latanya Hoover MD 230 [place], [place] [phone] Epistaxis (Primary Dx); Controlled type 2 diabetes mellitus with complication, without long-term current use of insulin (CMS/[facility]); Dietary counseling; Exercise counseling; Overweight; Anemia, unspecified [...] past two weeks. Two ER visits to [facility]. Accompanied by her son- Raymundo Acute Concerns: Severe nose bleeds, enough to become anemic. History of multiple cauterizations, needs ENT referralfor stat visit Humidifier in place in her bedroom, applying antibiotic Hg 13.5- >10.9 Interim Updates: ED f/u with Red team provider for ED f/u as she is not able to come to [facility] due to need to arrange transportation. 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 Velasquez in Endocrinology at [address] and emphysema by Casino Attendant Dr. Rowland at [address] 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 (current) use of opiate analgesic Atherosclerosis of [...] complication, without long-term current use of insulin ([facility]) Relevant Orders POCT Glucose (Completed) POCT HGB [...] refer stat to ENT for cauterization, possible [facility] scope Recommend anterior nasal packing if she [...] Disp: , Rfl: Blood Glucose Monitoring Suppl ([employer] Verio Flex System) w/Device kit, USE DIRECTED, [...] Disp: 90 tablet, Rfl: 2 glucose blood ([facility] [facility] Verio) test strip, CHECK BY FINGERSTICK TWICE DAILY, Disp: 50 strip, Rfl: 11 Homeopathic Products ([employer]) gel, Applied twice daily, Disp: , Rfl: Lancets ([facility] Delica Plus [id number]) misc, USE TO CHECK BLOOD SUGAR TWICE [...] refer stat to ENT for cauterization, possible [facility] scope Recommend anterior nasal packing if she is bleeding heavily documented in this encounter Plan of Treatment Upcoming Encounters Date Type Department Care Team (Late st Contact Info) Description 09/10/2024 9:45 AM EDT Office Visit [facility] [address] [place] [address] 10/29/2024 2:30 PM EDT Office Visit [facility] [address] [place] [address] Name, MD Eddie [address] [place] [address] Scheduled Referrals Name Type Priority Associated Diagnoses Orde r Schedule Referral to ENT Outpatient Referral STAT Epistaxis Expected: 08/02/2024 (Approximate), Expires: 08/02/2025 documented as of this encounter Procedures Procedure Name Priority Date/Time Associated Diagnosis Comments POCT GLYCATED HEMOGLOBIN, TOTAL Routine 08/02/2024 2:14 PM EST Controlled type 2 diabetes mellitus with complication, without long-term current use of insulin ([facility]) POCT GLUCOSE Routine 08/02/2024 2:14 PM EST Controlled type 2 diabetes mellitus with complication, without long-term current use of insulin (CMS/[facility]) documented in this encounter Results * (ABNORMAL) [...] complication, without long-term current use of insulin ([facility]) Dietary counseling Dietary surveillance and counseling Exercise counseling Overweight Anemia, unspecified type documented in this encounter Additional Health Concerns Assessment Noted Time PHQ-9 Depression Total Score: 9 05/10/20 24 11:56 AM EST documented as of this encounter Care Teams Supervisor Hand Silvering Relationship Specialty Start Date End Date Name, MD Eddie [address] [place] [address] PCP - General Family Medicine [facility] documented as of this encounter
--- OUTSIDE RECORDS SUMMARY | 2024-08-26 11:34 | XMS_ITS | Encounter Summary ---
Author Organization [employer] Includes [facility] [employer] Address [address] [place] [address] 7t [place] [address] Care Team Providers Care Sewer Builder Name Role Phone NameEddie MD Primary Care Provider [phone] Encounter Details Date Type Department Care Team ([facility] Contact Info) Description 11/18/2022 Abstract [facility] [address] [place] [address] [phone] NameEddie MD [address] [place] [address] [phone] Social History Tobacco Use Types Packs/Day Years [...] Upcoming Encounters Date Type Department Care Team ([facility] Contact Info) Description 09/10/2024 9:45 AM EDT Office Visit [facility] [address] [place] [address] 10/29/2024 2:30 PM EDT Office Visit [address] [phone] Eddie Marshall, MD 230 [place] [address] documented as of this encounter Visit Diagnoses Not on filedocumented in this encounter Care Teams Sewer Builder Relationship Specialty Start Date End Date Name, MD Eddie [address] [place] [address] PCP - General Family Medicine 09/16/15 [place] A 07/01/24 documented as of this encounter
--- OUTSIDE RECORDS SUMMARY | 2024-08-26 11:34 | XMS_ITS | Encounter Summary ---
Author Organization [employer] Address [address] [place] [address] 7 [place] [address] Care Team Providers Care Head Of It Name Role Phone Name, Eddie GILMORE Primary Care Provider [phone] Reason for Visit * Reason Onset Date Comments Appointment Request 08/13/2024 Encounter Details Date Type Department Care Team ([facility] st Contact Info) Description 08/13/2024 Telephone [facility] 230 [place], [place] [phone] Name, MD Eddie 230 [place] [address] Appointment Request Social History Tobacco Use Types [...] encounter Miscellaneous Notes * Telephone Encounter - 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 RN - 08/16/2024 10:48 AM EST Return TC to patient, chronic pain group rescheduled for 09/10/24 @ 9:45am * Telephone Encounter - Carlos Alberto Zapata - 08/16/2024 10:26 AM EST Tc from pt returning call. * Telephone Encounter - 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 RN - 08/14/2024 12:02 PM EST Return TC to patient, no answer. L/M asking her to call back to reschedule chronic pain group from 08/13/24. * Telephone Encounter - Will Badillo - 08/13/2024 8:23 AM EST Tc from pt requesting to r/s Apt from 08/13/24. Contact pt at [phone] documented in this encounter Plan of Treatment Upcoming Encounters Date Type Department Care Team (Late st Contact Info) Description 09/10/2024 9:45 AM EDT Office Visit [facility] [place] [address] 10/29/2024 2:30 PM EDT Office Visit [facility] [address] [place] [address] Name, [place] [address] documented as of this encounter Visit Diagnoses Not on filedocumented in this encounter Additional Health Concerns Assessment Noted Time PHQ-9 Depression Total Score: 9 05/10/20 24 11:56 AM EST documented as of this encounter Care Teams Head Of It Relationship Specialty Start Date End Date Name, MD Eddie [address] [place] [address] PCP - General Family Medicine 09/16/15 [place] [facility] 07/01/24 documented as of this encounter
--- OUTSIDE RECORDS SUMMARY | 2024-08-26 11:34 | XMS_ITS | Encounter Summary ---
Author Organization [employer] Address [address] [place] [address] 7 [place] [address] Care Team Providers Care Jumpbasting Lining Baster Name Role Phone Name, Eddie GILMORE Primary Care Provider Reason for Visit * Reason Onset Date Comments ER Follow-up 07/30/2024 Encounter Details Date Type Department Care Team ([facility] st Contact Info) Description 07/30/2024 Telephone [facility] 230 [place], [place] [phone] Name, MD Eddie 230 [place] [address] ER Follow-up Social History Tobacco Use Types [...] she is not able to come to [facility] due to need to arrange transportation. Pt states she has been diagnosed with level five osteoporosisand emphysema by Dr. Velasquez in Endocrinology at [address] [place] [address] [address] Rowland at[address] [place] [address]. Pt states both doctors are associated with [facility]. Advised RN will attempt to obtain notes [...] ED visit on : Date: 07/29/24 Hospital: [facility] Seen for: Nose bleed Symptomatic No *if yes message should go to Triage Patient advised will forward to team nurse for follow up Contact pt at [phone] documented in this encounter Plan of Treatment Upcoming Encounters Date Type Department Care Team (Late st Contact Info) Description 09/10/2024 9:45 AM EDT Office Visit [facility] [address] [place] [address] 10/29/2024 2:30 PM EDT Office Visit [address] [address] Name, MD Eddie [address] [place] [address] documented as of this encounter Visit Diagnoses Not on filedocumented in this encounter Additional Health Concerns Assessment Noted Time PHQ-9 Depression Total Score: 9 05/10/20 24 11:56 AM EST documented as of this encounter Care Teams Jumpbasting Lining Baster Relationship Specialty Start Date End Date Name, MD Eddie [address] [place] [address] PCP - General Family Medicine 09/16/15 [place] [facility] 07/01/24 documented as of this encounter
--- OUTSIDE RECORDS SUMMARY | 2024-08-26 11:35 | XMS_ITS | Encounter Summary ---
Author Organization [employer] Address [address] [place] [address] 7 [place] [address] Care Team Providers Care Coat Fitter Name Role Phone Name, Eddie GILMORE Primary Care Provider [phone] Reason for Visit * Reason Comments Med Refill Encounter Details Date Type Department Care Team (Late Contact Info) Description 12/01/2022 Refill [facility] 230 [place], [place] [phone] Name, MD Eddie 230 [place] [address] Controlled type 2 diabetes mellitus with complication, without long-term current use of insulin ([facility]) Social History Tobacco Use Types Packs/Day Years [...] Department Care Team (Late Contact Info) Description 09/10/2024 9:45 AM EDT Office Visit [facility] [place] [address] 10/29/2024 2:30 PM EDT Office Visit [facility] [place] [address] Name, [place] [address] documented as of this encounter Visit Diagnoses Diagnosis Controlled type 2 diabetes mellitus with complication, without long-term current use of insulin ([facility]) documented in this encounter Additional Health Concerns Assessment Noted Time PHQ-9 Depression Total Score: 10 023 1:16 PM EDT documented as of this encounter Care Teams Coat Fitter Relationship Specialty Start Date End Date Name, MD [place] [address] PCP - General Family Medicine 09/16/15 [place] BUR[facility] 07/01/24 documented as of this encounter
--- OUTSIDE RECORDS SUMMARY | 2024-08-26 11:35 | XMS_ITS | Encounter Summary ---
Author Organization [email or web address] Address [address] [place] [address] 7 [place] [address] Care Team Providers Care Senior Hr Business Partner Name Role Phone Name, Eddie GILMORE Primary Care Provider [phone] Reason for Visit * Reason Onset Date Comments Medication Question 09/05/2023 Encounter Details Date Type Department Care Team ([facility] st Contact Info) Description 09/05/2023 Telephone [facility] 230 [place], [place] [phone] Name, MD Eddie 230 [place] [address] Medication Question Social History Tobacco Use Types [...] Description 09/10/2024 9:45 AM EDT Office Visit [facility] [address] [place] [address] 10/29/2024 2:30 PM EDT Office Visit [facility] [address] [place] [address] Name, MD Eddie [address] [place] [address] documented as of this encounter Visit Diagnoses Not on filedocumented in this encounter Additional Health Concerns Assessment Noted Time PHQ-9 Depression Total Score: 10 11/28/ 023 1:16 PM EDT documented as of this encounter Care Teams Senior Hr Business Partner Relationship Specialty Start Date End Date Name, MD Eddie 230 [facility] [place] [address] PCP - General Family Medicine 09/16/15 [place] [facility] 07/01/24 documented as of this encounter
--- OUTSIDE RECORDS SUMMARY | 2024-08-26 11:35 | XMS_ITS | Encounter Summary ---
Author Organization [employer] Address [address] [place] [address] [place] [address] Care Team Providers Care Specimen Boss Name Role Phone NameEddie MD Primary Care Provider [phone] Reason for Visit * Reason Comments Med Refill Encounter Details Date Type Department Care Team (Late st Contact Info) Description 01/29/2023 Refill [facility] [address] [place] [address] [phone] Farhana Singh FNP [address] [place] [address] Dept [place] [address] Social History Tobacco Use Types Packs/Day Years [...] Description 09/10/2024 9:45 AM EDT Office Visit [facility] [address] [place] [address] [phone] 10/29/2024 2:30 PM EDT Office Visit [facility] [address] [place] [address] [phone] Name, MD Eddie [address] [place] [address] documented as of this encounter Visit Diagnoses Not on filedocumented in this encounter Additional Health Concerns Assessment Noted Time PHQ-9 Depression Total Score: 10 11/28/ 023 1:16 PM EDT documented as of this encounter Care Teams Specimen Boss Relationship Specialty Start Date End Date Name, MD Eddie 230 [place] [address] PCP - General Family Medicine 09/16/15 [place] A 07/01/24 documented as of this encounter
--- OUTSIDE RECORDS SUMMARY | 2024-08-26 11:35 | XMS_ITS | Encounter Summary ---
Author Organization [employer] Address [address] [place] [address] 7 [place] [address] Care Team Providers Care Feed Mill Manager Name Role Phone Name, Eddie GILMORE Primary Care Provider [phone] Reason for Visit * Reason Comments Med Refill Encounter Details Date Type Department Care Team (Late st Contact Info) Description 05/08/2023 Refill [facility] 230 [place], [place] [phone] Name, MD Eddie 230 [place], [place] [phone] Chronic pain syndrome Social History Tobacco Use [...] Description 09/10/2024 9:45 AM EDT Office Visit [facility] [address] [place] [address] 10/29/2024 2:30 PM EDT Office Visit [address] [address] Name, MD Eddie [address] [place] [address] documented as of this encounter Visit Diagnoses Diagnosis Chronic pain syndrome documented in this encounter Additional Health Concerns Assessment Noted Time PHQ-9 Depression Total Score: 10 023 1:16 PM EDT documented as of this encounter Care Teams Feed Mill Manager Relationship Specialty Start Date End Date NameEddie MD [address] [place] [address] PCP - General Family Medicine 09/16/15 [facility] documented as of this encounter
--- OUTSIDE RECORDS SUMMARY | 2024-08-26 11:35 | XMS_ITS | Encounter Summary ---
Author Organization [employer] Address [address] [place] [address] 7 [place] [address] Care Team Providers Care Non Licensed Nuclear Plant Operator Name Role Phone Name, Eddie GILMORE Primary Care Provider [phone] Reason for Visit * Reason Onset Date Comments Referral 02/02/2023 Back dated refer ral Encounter Details Date Type Department Care Team ([facility] st Contact Info) Description 02/02/2023 Telephone [facility] 230 [place], [place] [phone] Name, MD Eddie 230 [place] [address] Referral (Back dated referral ) Social History [...] 1:40 PM EDT Tc from Kasie at [facility] requesting status on message below regarding referral. Fax number [phone]. Any questions please call [phone] * Telephone Encounter - Amber Roger RN - 02/03/2023 10:34 AM EDT Please review message below regarding backdated referral for these dates * Telephone Encounter - Laure Mcgill - 02/02/2023 2:07 PM EDT Tc from Kasie at [facility] calling in regards to referral needing to be back dated. Patient was seen at the office on 01/03/23 and 01/11/23. Fax number [phone]. Any questions please call [phone]. documented in this encounter Plan of Treatment Upcoming Encounters Date Type Department Care Team (Late st Contact Info) Description 09/10/2024 9:45 AM EDT Office Visit [facility] [address] [place] [address] 10/29/2024 2:30 PM EDT Office Visit [facility] [address] [place] [address] Name, MD Eddie [address] [place] [address] documented as of this encounter Visit Diagnoses Not on filedocumented in this encounter Additional Health Concerns Assessment Noted Time PHQ-9 Depression Total Score: 10 023 1:16 PM EDT documented as of this encounter Care Teams Non Licensed Nuclear Plant Operator Relationship Specialty Start Date End Date Name, MD Eddie [address] [place] [address] PCP - General Family Medicine 09/16/15 [place] [facility] 07/01/24 documented as of this encounter
--- OUTSIDE RECORDS SUMMARY | 2024-08-26 11:35 | XMS_ITS | Encounter Summary ---
Author Organization [employer] Address [address] [place] [address] 7 [place] [address] Care Team Providers Care Pet Caregiver Name Role Phone Name, Eddie GILMORE Primary Care Provider [phone] Reason for Visit * Reason Onset Date Comments Medication Question 09/01/2023 Encounter Details Date Type Department Care Team ([facility] st Contact Info) Description 09/01/2023 Telephone [facility] 230 [place], [place] [phone] Name, MD Eddie 230 [place] [address] Medication Question Social History Tobacco Use Types [...] an add on. Please contact pharmacy at [phone]. documented in this encounter Plan of Treatment Upcoming Encounters Date Type Department Care Team (Late st Contact Info) Description 09/10/2024 9:45 AM EDT Office Visit [facility] Felix [facility] [place] [address] 10/29/2024 2:30 PM EDT Office Visit [facility] Felix [facility] [place] [address] Name, MD Eddie [place] [address] documented as of this encounter Visit Diagnoses Not on filedocumented in this encounter Additional Health Concerns Assessment Noted Time PHQ-9 Depression Total Score: 10 023 1:16 PM EDT documented as of this encounter Care Teams Pet Caregiver Relationship Specialty Start Date End Date Name, MD Eddie Felix [facility] [place] [address] PCP - General Family Medicine 09/16/15 [place] [facility] 07/01/24 documented as of this encounter
--- OUTSIDE RECORDS SUMMARY | 2024-08-26 11:35 | XMS_ITS | Encounter Summary ---
Author Organization [employer] Address [address] [place] [address] 7 [place] [address] Care Team Providers Care Production Quality Analyst Name Role Phone Name, Eddie GILMORE Primary Care Provider [phone] Reason for Visit * Reason Comments Med Refill Encounter Details Date Type Department Care Team (Late st Contact Info) Description 06/18/2023 Refill [facility] 230 [place], [place] [phone] Name, MD Eddie 230 [place], [place] [phone] Chronic pain syndrome Social History Tobacco Use [...] Description 09/10/2024 9:45 AM EDT Office Visit [facility] [address] [place] [address] 10/29/2024 2:30 PM EDT Office Visit [address] [address] Name, MD Eddie [address] [place] [address] documented as of this encounter Visit Diagnoses Diagnosis Chronic pain syndrome documented in this encounter Additional Health Concerns Assessment Noted Time PHQ-9 Depression Total Score: 10 023 1:16 PM EDT documented as of this encounter Care Teams Production Quality Analyst Relationship Specialty Start Date End Date NameEddie MD [address] [place] [address] PCP - General Family Medicine 09/16/15 [facility] documented as of this encounter
--- OUTSIDE RECORDS SUMMARY | 2024-08-26 11:35 | XMS_ITS | Encounter Summary ---
Author Organization [facility] [employer] Address [address] [place] [address] [place] [address] Care Team Providers Care Cpht Name Role Phone NameEddie MD Primary Care Provider [phone] Reason for Visit * Reason Comments Med Refill Encounter Details Date Type Department Care Team (Late st Contact Info) Description 02/26/2023 Refill [facility] [address] [place] [address] [phone] Eddie Marshall MD [address] [place] [address] [phone] Chronic pain syndrome Social History Tobacco Use [...] Description 09/10/2024 9:45 AM EDT Office Visit [facility] [address] [place] [address] [phone] 10/29/2024 2:30 PM EDT Office Visit [address] [phone] Eddie Marshall MD 230 [place] [address] documented as of this encounter Visit Diagnoses Diagnosis Chronic pain syndrome documented in this encounter Additional Health Concerns Assessment Noted Time PHQ-9 Depression Total Score: 10 023 1:16 PM EDT documented as of this encounter Care Teams Cpht Relationship Specialty Start Date End Date Name, MD Eddie 230 [place] [address] PCP - General Family Medicine 09/16/15 [place] A 07/01/24 documented as of this encounter
--- OUTSIDE RECORDS SUMMARY | 2024-08-26 11:35 | XMS_ITS | Encounter Summary ---
Author Organization [employer] Address [address] [place] [address] 7 [place] [address] Care Team Providers Care Supervisor Logging Name Role Phone Name, Eddie GILMORE Primary Care Provider Reason for Visit * Reason Comments Med Refill Encounter Details Date Type Department Care Team (Late Contact Info) Description 01/04/2023 Refill [facility] [address] [place] [address] [phone] Name, MD Eddie 230 [place] [address] Gastroesophageal reflux disease, unspecified whether esophagitis present [...] Description 09/10/2024 9:45 AM EDT Office Visit [facility] [address] [place] [address] 10/29/2024 2:30 PM EDT Office Visit [facility] [address] [place] [address] Name, [place] [address] documented as of this encounter Visit Diagnoses Diagnosis Gastroesophageal reflux disease, unspecified whether esophagitis present documented in this encounter Additional Health Concerns Assessment Noted Time PHQ-9 Depression Total Score: 10 023 1:16 PM EDT documented as of this encounter Care Teams Supervisor Logging Relationship Specialty Start Date End Date Name, [place] [address] PCP - General Family Medicine 09/16/15 Jerica A 07/01/24 documented as of this encounter
--- OUTSIDE RECORDS SUMMARY | 2024-08-26 11:35 | XMS_ITS | Encounter Summary ---
Author Organization [employer] Address [address] [place] [address] 7t [place] [address] Care Team Providers Care Customer Account Specialist Name Role Phone Name, Eddie GILMORE Primary Care Provider [phone] Encounter Details Date Type Department Care Team ([facility] st Contact Info) Description 12/07/2022 Telephone [facility] 230 [place], [place] [phone] Name, MD Eddie 230 [place] [address] Social History Tobacco Use Types Packs/Day Years [...] update PCP now. Ordering provider Pierce Pillai DREDGE OR BARGE SHORE HAND Follow with genaro as indicated. Results faxed at time of call to [phone]. Ref.# [id number] documented in this encounter Plan of Treatment Upcoming Encounters Date Type Department Care Team (Late st Contact Info) Description 09/10/2024 9:45 AM EDT Office Visit [facility] [address] [place] [address] 10/29/2024 2:30 PM EDT Office Visit [address] [address] Name, MD Eddie [address] [place] [address] documented as of this encounter Visit Diagnoses Not on filedocumented in this encounter Additional Health Concerns Assessment Noted Time PHQ-9 Depression Total Score: 10 023 1:16 PM EDT documented as of this encounter Care Teams Customer Account Specialist Relationship Specialty Start Date End Date Name, MD Eddie [address] [place] [address] PCP - General Family Medicine 09/16/15 [facility] 07/01/24 documented as of this encounter
== END 2024-08-26 12:46 | disposition home or self-care (01) ==
PROVIDERS: PCP Internal Medicine Geriatric Medicine; Visit Provider Internal Medicine
DX: K21.9 Gastro-esophageal reflux disease without esophagitis (principal); K64.9 Unspecified hemorrhoids; R04.0 Epistaxis; K44.9 Diaphragmatic hernia without obstruction or gangrene; M81.0 Age-related osteoporosis without current pathological fracture
CPT/HCPCS: 99214

== ENCOUNTER 2024-08-26 16:37 | Outpatient (REF) | payer MEDICARE, SELFPAY ==
--- NOTE | ~2024-08-26 | CT_ITS ---
CLINICAL HISTORY: J43.9 - Emphysema, unspecified CT chest without contrast Comparison: CR - CHEST 2 VIEWS - 11/14/17 19:22 EDT Findings: The heart size is normal. Severe Atherosclerosis calcification of the coronary artery. The visualized thyroid and mediastinum are unremarkable. Large hiatal hernia. No consolidation or effusion. Severe centrilobular emphysema. 7.7 mm nodular density of the right upper lobe series 7, image 68 and 5 mm nodular density of the right upper lobe on image 78. The visualized upper abdomen is unremarkable. No acute fractures. IMPRESSION: Nodular densities of the right upper lobe. CT chest follow-up in 3-6 months is recommended. Fleischner Society 2017 Guidelines for incidentally detected indeterminate nodules in persons 35 years of age or older. Single Solid Nodules: 5 mm or smaller nodules need no follow-up in low risk, and [address] follow-up is optional in high risk patients. 6-8 mm nodules have optional [address] follow-up in low risk, and 6-[address] follow-up followed by 18-[address] follow-up if no change in high risk patients. 9 mm or larger nodules should consider CT, PET/CT, or biopsy at 3 months regardless of patient risk. Multiple Solid Nodules: 5 mm or smaller nodules need no follow-up in low risk, and [address] follow-up is optional in high risk patients. 6-8 mm nodules need 3-[address] follow-up followed by an optional 18-[address] follow-up regardless of patient risk. 9 mm or larger nodules should consider 3-[address] follow-up. For low risk 18-24 month follow-up is optional, whereas for high risk it is needed. Single Ground Glass Nodules: 5 mm or smaller nodules need no followup 6 mm and larger nodules need CT at 6-12 months to confirm persistence, then CT every 2 years until 5 years Single Subsolid Nodules: 5 mm or smaller nodules need no followup 6 mm and larger nodules need CT at 3-6 months to confirm persistence. If no change and solid component /T/lt;6 mm, then CT every year until 5 years Multiple Ground Glass or Subsolid Nodules: 5 mm or smaller nodules need CT at 3-6 months. If stable, optional CT at 2 and 4 years. 6 mm or larger nodules need CT at 3-6 months. Subsequent management based on most suspicious nodule This document has been electronically signed by: German Riley MD on 08/27/2024 14:12:38
--- OUTSIDE RECORDS SUMMARY | 2024-08-26 18:13 | XMS_ITS | Encounter Summary ---
Author Organization [employer] Address [address] [place] [address] 7 [place] [address] Care Team Providers Care Wound Care Specialist Name Role Phone Name, Eddie GILMORE Primary Care Provider [phone] Reason for Visit * Reason Comments Med Refill Encounter Details Date Type Department Care Team (Late st Contact Info) Description 06/18/2023 Refill [facility] 230 [place], [place] [phone] Name, MD Eddie 230 [place], [place] [phone] Chronic pain syndrome Social History Tobacco Use [...] Description 09/10/2024 9:45 AM EDT Office Visit [facility] [address] [place] [address] 10/29/2024 2:30 PM EDT Office Visit [address] [address] Name, MD Eddie [address] [place] [address] documented as of this encounter Visit Diagnoses Diagnosis Chronic pain syndrome documented in this encounter Additional Health Concerns Assessment Noted Time PHQ-9 Depression Total Score: 10 023 1:16 PM EDT documented as of this encounter Care Teams Wound Care Specialist Relationship Specialty Start Date End Date NameEddie MD [address] [place] [address] PCP - General Family Medicine 09/[facility]15 [facility] documented as of this encounter
--- OUTSIDE RECORDS SUMMARY | 2024-08-26 18:13 | XMS_ITS | Encounter Summary ---
Author Organization [employer] Address [address] [facility] 7t [place] [address] Care Team Providers Care Burlap Roll Coverer Name Role Phone Name, Eddie GILMORE Primary Care Provider [phone] Encounter Details Date Type Department Care Team [...] Description 09/10/2024 9:45 AM EDT Office Visit [facility] [address] [place] [address] 10/29/2024 2:30 PM EDT Office Visit [facility] [address] [place] [address] Name, MD Eddie [address] [place] [address] documented as of this encounter Visit Diagnoses Not on filedocumented in this encounter Additional Health Concerns Assessment Noted Time PHQ-9 Depression Total Score: 9 05/10/20 24 11:56 AM EST documented as of this encounter Care Teams Burlap Roll Coverer Relationship Specialty Start Date End Date NameEddie MD [address] [place] [address] PCP - General Family Medicine 09/16/15 Jerica [facility] 07/01/24 documented as of this encounter
--- OUTSIDE RECORDS SUMMARY | 2024-08-26 18:13 | XMS_ITS | Encounter Summary ---
Author Organization [facility] [employer] Address [address] [place] [address] 7t [place] [address] Care Team Providers Care Perinatal Instructor Name Role Phone NameEddie MD Primary Care Provider [phone] Encounter Details Date Type Department Care Team ([facility] Contact Info) Description 11/18/2022 Abstract [facility] [address] [place] [address] [phone] NameEddie MD [address] [place] [address] [phone] Social History Tobacco Use Types Packs/Day Years [...] Upcoming Encounters Date Type Department Care Team ([facility] Contact Info) Description 09/10/2024 9:45 AM EDT Office Visit [facility] [address] [place] [address] 10/29/2024 2:30 PM EDT Office Visit [address] [phone] Eddie [place], MD 230 [place] [address] documented as of this encounter Visit Diagnoses Not on filedocumented in this encounter Care Teams Perinatal Instructor Relationship Specialty Start Date End Date Name, MD Eddie 230 [place] [address] PCP - General Family Medicine 09/16/15 Jerica A 07/01/24 documented as of this encounter
--- OUTSIDE RECORDS SUMMARY | 2024-08-26 18:13 | XMS_ITS | Encounter Summary ---
Author Organization [employer] Address [address] [place] [address] 7 [place] [address] Care Team Providers Care Supervisor Refractory Products Name Role Phone Name, Eddie GILMORE Primary Care Provider [phone] Reason for Visit * Reason Comments Med Refill Encounter Details Date Type Department Care Team (Late st Contact Info) Description 08/19/2024 Refill [facility] 230 [place], [place] [phone] Name, MD Eddie 230 [place] [address] Social History Tobacco Use Types Packs/Day Years [...] Description 09/10/2024 9:45 AM EDT Office Visit [address] [address] 10/29/2024 2:30 PM EDT Office Visit [address] [address] NameEddie MD [address] [place] [address] documented as of this encounter Visit Diagnoses Not on filedocumented in this encounter Additional Health Concerns Assessment Noted Time PHQ-9 Depression Total Score: 9 05/10/20 24 11:56 AM EST documented as of this encounter Care Teams Supervisor Refractory Products Relationship Specialty Start Date End Date NameEddie MD [address] [place] [address] PCP - General Family Medicine 09/16/15 [facility] 07/01/24 documented as of this encounter
--- OUTSIDE RECORDS SUMMARY | 2024-08-26 18:13 | XMS_ITS | Encounter Summary ---
Author Organization [employer] Address [address] [place] [address] 7 [place] [address] Care Team Providers Care Rn Disease Management Name Role Phone Name, Eddie GILMORE Primary Care Provider [phone] Reason for Visit * Reason Comments Med Refill Encounter Details Date Type Department Care Team (Late st Contact Info) Description 05/08/2023 Refill [facility] 230 [place], [place] [phone] Name, MD Eddie 230 [place], [place] [phone] Chronic pain syndrome Social History Tobacco Use [...] Description 09/10/2024 9:45 AM EDT Office Visit [facility] [address] [place] [address] 10/29/2024 2:30 PM EDT Office Visit [address] [address] Name, MD Eddie [address] [place] [address] documented as of this encounter Visit Diagnoses Diagnosis Chronic pain syndrome documented in this encounter Additional Health Concerns Assessment Noted Time PHQ-9 Depression Total Score: 10 023 1:16 PM EDT documented as of this encounter Care Teams Rn Disease Management Relationship Specialty Start Date End Date NameEddie MD [address] [place] [address] PCP - General Family Medicine 09/16/15 [facility] documented as of this encounter
--- OUTSIDE RECORDS SUMMARY | 2024-08-26 18:13 | XMS_ITS | Encounter Summary ---
Author Organization [employer] Address [address] [place] [address] 7 [place] [address] Care Team Providers Care Junior Software Developer Name Role Phone Name, Eddie GILMORE Primary Care Provider [phone] Reason for Visit * Reason Onset Date Comments Med Refill 08/09/2024 Encounter Details Date Type Department Care Team ([facility] st Contact Info) Description 08/09/2024 Refill [facility] 230 [place], [place] [phone] Name, MD Eddie 230 [place], [place] [phone] Chronic pain syndrome Social History Tobacco Use [...] 5-325 MG tablet To be sent to: [facility] Pharmacy documented in this encounter Plan of Treatment Upcoming Encounters Date Type Department Care Team (Late st Contact Info) Description 09/10/2024 9:45 AM EDT Office Visit [facility] [address] [place] [address] 10/29/2024 2:30 PM EDT Office Visit [facility] [address] [place] [address] NameEddie MD [address] [place] [address] documented as of this encounter Visit Diagnoses Diagnosis Chronic pain syndrome documented in this encounter Additional Health Concerns Assessment Noted Time PHQ-9 Depression Total Score: 9 05/10/20 24 11:56 AM EST documented as of this encounter Care Teams Junior Software Developer Relationship Specialty Start Date End Date NameEddie MD [address] [place] [address] PCP - General Family Medicine 09/16/15 Jerica [facility] 07/01/24 documented as of this encounter
--- OUTSIDE RECORDS SUMMARY | 2024-08-26 18:13 | XMS_ITS | Encounter Summary ---
Author Organization [employer] Address [address] [place] [address] 7 [place] [address] Care Team Providers Care Grounds Restoration Specialist Name Role Phone Name, Eddie GILMORE Primary Care Provider [phone] Reason for Visit * Reason Onset Date Comments Active Med List 06/28/2023 Encounter Details Date Type Department Care Team ([facility] st Contact Info) Description 06/28/2023 Telephone [facility] 230 [place], [place] [phone] Name, MD Eddie 230 [place] [address] Active Med List Social History Tobacco Use [...] Be requesting a updated active medication list sba underwriter did attempt to transfer to Medical records so that she can obtain this information but they kept transferring back to the call center. [facility] [address], [place] [phone] documented in this encounter Plan of Treatment Upcoming Encounters Date Type Department Care Team (Late st Contact Info) Description 09/10/2024 9:45 AM EDT Office Visit [facility] [address] [place] [address] 10/29/2024 2:30 PM EDT Office Visit [facility] [address] [place] [address] Name, MD Eddie [address] [place] [address] documented as of this encounter Visit Diagnoses Not on filedocumented in this encounter Additional Health Concerns Assessment Noted Time PHQ-9 Depression Total Score: 10 023 1:16 PM EDT documented as of this encounter Care Teams Grounds Restoration Specialist Relationship Specialty Start Date End Date Name, MD Eddie 230 [place] [address] PCP - General Family Medicine 09/16/15 Jerica [facility] 07/01/24 documented as of this encounter
--- OUTSIDE RECORDS SUMMARY | 2024-08-26 18:13 | XMS_ITS | Encounter Summary ---
Author Organization [employer] Address [address] [place] [address] 7 [place] [address] Care Team Providers Care Traffic Investigator Name Role Phone Name, Eddie GILMORE Primary Care Provider [phone] Reason for Visit * Reason Onset Date Comments Referral 02/02/2023 Back dated refer ral Encounter Details Date Type Department Care Team ([facility] st Contact Info) Description 02/02/2023 Telephone [facility] 230 [place], [place] [phone] Name, MD Eddie 230 [place] [address] Referral (Back dated referral ) Social History [...] 1:40 PM EDT Tc from Kasie at [facility] requesting status on message below regarding referral. Fax number [phone]. Any questions please call [phone] * Telephone Encounter - Amber Roger RN - 02/03/2023 10:34 AM EDT Please review message below regarding backdated referral for these dates * Telephone Encounter - Laure Mcgill - 02/02/2023 2:07 PM EDT Tc from Kasie at [facility] calling in regards to referral needing to be back dated. Patient was seen at the office on 01/03/23 and 01/11/23. Fax number [phone]. Any questions please call [phone]. documented in this encounter Plan of Treatment Upcoming Encounters Date Type Department Care Team (Late st Contact Info) Description 09/10/2024 9:45 AM EDT Office Visit [facility] [address] [place] [address] 10/29/2024 2:30 PM EDT Office Visit [facility] [address] [place] [address] Name, MD Eddie [address] [place] [address] documented as of this encounter Visit Diagnoses Not on filedocumented in this encounter Additional Health Concerns Assessment Noted Time PHQ-9 Depression Total Score: 10 023 1:16 PM EDT documented as of this encounter Care Teams Traffic Investigator Relationship Specialty Start Date End Date Name, MD Eddie [address] [place] [address] PCP - General Family Medicine 09/16/15 Jerica [facility] 07/01/24 documented as of this encounter
--- OUTSIDE RECORDS SUMMARY | 2024-08-26 18:13 | XMS_ITS | Encounter Summary ---
Author Organization [employer] Address [address] [place] [address] 7 [place] [address] Care Team Providers Care Educational Aid Name Role Phone Name, Eddie GILMORE Primary Care Provider [phone] Reason for Visit * Reason Onset Date Comments ER Follow-up 07/30/2024 Encounter Details Date Type Department Care Team ([facility] st Contact Info) Description 07/30/2024 Telephone [facility] 230 [place], [place] [phone] Name, MD Eddie [address] [place] [address] ER Follow-up Social History Tobacco Use Types [...] she is not able to come to [facility] due to need to arrange transportation. Pt states she has been diagnosed with level five osteoporosisand emphysema by Dr. Velasquez in Endocrinology at [address] [place] [address] [address] Rowland at[address] [place] [address]. Pt states both doctors are associated with [facility] Advised RN will attempt to obtain notes [...] ED visit on : Date: 07/29/24 Hospital: [facility] Seen for: Nose bleed Symptomatic No *if yes message should go to Triage Patient advised will forward to team nurse for follow up Contact pt at [phone] documented in this encounter Plan of Treatment Upcoming Encounters Date Type Department Care Team (Late st Contact Info) Description 09/10/2024 9:45 AM EDT Office Visit [facility] [address] [place] [address] 10/29/2024 2:30 PM EDT Office Visit [address] [address] Name, MD Eddie [address] [place] [address] documented as of this encounter Visit Diagnoses Not on filedocumented in this encounter Additional Health Concerns Assessment Noted Time PHQ-9 Depression Total Score: 9 05/10/20 24 11:56 AM EST documented as of this encounter Care Teams Educational Aid Relationship Specialty Start Date End Date Name, MD Eddie [address] [place] [address] PCP - General Family Medicine 09/16/15 Jerica [facility] 07/01/24 documented as of this encounter
--- OUTSIDE RECORDS SUMMARY | 2024-08-26 18:13 | XMS_ITS | Encounter Summary ---
Author Organization [employer] Address [address] [place] [address] 7 [place] [address] Care Team Providers Care Pv Design Engineer Name Role Phone Name, Eddie GILMORE Primary Care Provider [phone] Reason for Referral * Consultation (STAT) - Closed Specialty Diagnoses / Procedures Referred By Karyn tyler Referred To Contact Otolaryngology Diagnoses Epistaxis Latanya Hoover MD [address] [place] [address] Phone: tel: fax: [facility] [address] Phone: tel: fax: Referral ID Status Reason Start Date Expiration Date V isits Requested Visits Authorized [id number] Closed Specialty Services Required 08/02/2024 08/02/2025 1 1 Reason for Visit * Reason Comments Hospital Follow-up Encounter Details Date Type Department Care Team (Late st Contact Info) Description 08/02/2024 2:30 PM EST Office Visit [facility]INE 230 [place], [place] [phone] Latanya Hoover MD 230 [place], [place] [phone] Epistaxis (Primary Dx); Controlled type 2 diabetes mellitus with complication, without long-term current use of insulin ([facility]); Dietary counseling; Exercise counseling; Overweight; Anemia, unspecified [...] past two weeks. Two ER visits to [facility]. Accompanied by her son- Raymnudo Acute Concerns: Severe nose bleeds, enough to become anemic. History of multiple cauterizations, needs ENT referralfor stat visit Humidifier in place in her bedroom, applying antibiotic Hg 13.5- >10.9 Interim Updates: ED f/u with Red team provider for ED f/u as she is not able to come to [facility] due to need to arrange transportation. 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 Velasquez in Endocrinology at [address] and emphysema by Candy Cutter Machine Dr. Rowland at [address] 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 Atherosclerosis of [...] complication, without long-term current use of insulin ([facility]) Relevant Orders POCT Glucose (Completed) POCT HGB [...] refer stat to ENT for cauterization, possible TALENT SCOUT scope Recommend anterior nasal packing if she [...] Disp: , Rfl: Blood Glucose Monitoring Suppl ([employer] Verio Flex System) w/Device kit, USE DIRECTED, [...] Disp: 90 tablet, Rfl: 2 glucose blood ([employer] Verio) test strip, CHECK BY FINGERSTICK TWICE DAILY, Disp: 50 strip, Rfl: 11 Homeopathic Products (Arnicare) gel, Applied twice daily, Disp: , Rfl: Lancets ([employer] Delica Plus [id number]) misc, USE TO CHECK BLOOD SUGAR TWICE [...] refer stat to ENT for cauterization, possible TALENT SCOUT scope Recommend anterior nasal packing if she is bleeding heavily documented in this encounter Plan of Treatment Upcoming Encounters Date Type Department Care Team (Late st Contact Info) Description 09/10/2024 9:45 AM EDT Office Visit [facility] MEDICINE [address] [place] [address] 10/29/2024 2:30 PM EDT Office Visit [facility] MEDICINE [address] [place] [address] Name, MD Eddie [address] [place] [address] Scheduled Referrals Name Type Priority Associated Diagnoses Orde r Schedule Referral to ENT Outpatient Referral STAT Epistaxis Expected: 08/02/2024 (Approximate), Expires: 08/02/2025 documented as of this encounter Procedures Procedure Name Priority Date/Time Associated Diagnosis Comments POCT GLYCATED HEMOGLOBIN, TOTAL Routine 08/02/2024 2:14 PM EST Controlled type 2 diabetes mellitus with complication, without long-term current use of insulin ([facility]) POCT GLUCOSE Routine 08/02/2024 2:14 PM EST Controlled type 2 diabetes mellitus with complication, without long-term current use of insulin (CMS[facility]) documented in this encounter Results * (ABNORMAL) [...] complication, without long-term current use of insulin ([facility]) Dietary counseling Dietary surveillance and counseling Exercise counseling Overweight Anemia, unspecified type documented in this encounter Additional Health Concerns Assessment Noted Time PHQ-9 Depression Total Score: 9 05/10/20 24 11:56 AM EST documented as of this encounter Care Teams Pv Design Engineer Relationship Specialty Start Date End Date Name, MD Eddie 230 [place] [address] PCP - General Family Medicine 09/16/15 [facility] documented as of this encounter
--- OUTSIDE RECORDS SUMMARY | 2024-08-26 18:13 | XMS_ITS | Encounter Summary ---
Author Organization [employer] Address [address] [place] [address] 7 [place] [address] Care Team Providers Care Renewal Specialist Name Role Phone Name, Eddie GILMORE Primary Care Provider [phone] Reason for Visit * Reason Onset Date Comments Medication Question 09/01/2023 Encounter Details Date Type Department Care Team ([facility] st Contact Info) Description 09/01/2023 Telephone [facility] 230 [place], [place] [phone] Name, MD Eddie 230 [place] [address] Medication Question Social History Tobacco Use Types [...] an add on. Please contact pharmacy at [phone]. documented in this encounter Plan of Treatment Upcoming Encounters Date Type Department Care Team (Late st Contact Info) Description 09/10/2024 9:45 AM EDT Office Visit [facility] [place] [address] 10/29/2024 2:30 PM EDT Office Visit [facility] [place] [address] Name, [place] [address] documented as of this encounter Visit Diagnoses Not on filedocumented in this encounter Additional Health Concerns Assessment Noted Time PHQ-9 Depression Total Score: 10 023 1:16 PM EDT documented as of this encounter Care Teams Renewal Specialist Relationship Specialty Start Date End Date Name, MD Eddie [facility] [place] [place] [address] PCP - General Family Medicine 09/16/15 Jerica [facility] 07/01/24 documented as of this encounter
--- OUTSIDE RECORDS SUMMARY | 2024-08-26 18:13 | XMS_ITS | Encounter Summary ---
Author Organization [facility] [employer] Address [address] [place] [address] [address] [address] Care Team Providers Care Enhanced Environmental Operator Name Role Phone NameEddie MD Primary Care Provider [phone] Reason for Visit * Reason Comments Med Refill Encounter Details Date Type Department Care Team (Late st Contact Info) Description 02/26/2023 Refill [facility] [address] [place] [address] [phone] Eddie Marshall MD [address] [place] [address] [phone] Chronic pain syndrome Social History Tobacco Use [...] Description 09/10/2024 9:45 AM EDT Office Visit [facility] [address] [place] [address] [phone] 10/29/2024 2:30 PM EDT Office Visit [address] [phone] Eddie Marshall MD [address] [place] [address] documented as of this encounter Visit Diagnoses Diagnosis Chronic pain syndrome documented in this encounter Additional Health Concerns Assessment Noted Time PHQ-9 Depression Total Score: 10 023 1:16 PM EDT documented as of this encounter Care Teams Enhanced Environmental Operator Relationship Specialty Start Date End Date Name, MD Eddie [address] [place] [address] PCP - General Family Medicine 09/16/15 [place] A 07/01/24 documented as of this encounter
--- OUTSIDE RECORDS SUMMARY | 2024-08-26 18:13 | XMS_ITS | Data Portability ---
Author Organization [place] - [facility], Allergy Address [address] [place] [phone] Assessment No assessment recorded. Plan of Treatment Reminders Order Date Submit Date Provider Last Modified By Organization Details Last Modified Time Details Appointments None record ed. Lab None record ed. Referral None record ed. Procedures None record ed. Surgeries None record ed. Imaging None record ed. Medication Orders None record ed. Patient TargetsNo targets recorded. Patient InstructionsNo instructions recorded. Reason for Referral None Reported. Problems Name Problem SNOMED Code Status Onset Date Resolution Date Notes Provider Name and Address Organization Details Recorded Time Essential hypertens ion 42463019 Active 2014 Essential (primary) hypertensi on; Note: Date Diagnosed: 05/07/2015 9:43 AM (I10) Not Available [facility] 4 02:37:47 Bleeding from nose 332986470 Active 2014 Epistaxis; Note: Date Diagnosed: 05/07/2015 9:43 AM (R04.0) Not Available [facility] 4 02:37:50 Anterior epistaxis 470110218 Active 2024 YANIV GARCIA MD [address] [place] [address], [phone] , [place] - [facility] 5 12:32:29 Problem Notes None recorded. Procedures Surgical History Date Name Laterality Status Provider Name and Address Organization Details Recorded Time 5 Epistaxis Simple Nasal Cautery Right completed YANIV GARCIA MD [address] [place] [address],[address], [address], [place] - [facility] 08/11/2024 12:31:38 Imaging Results None recorded. Procedure Notes None recorded. Medical Equipment None Reported. Allergies Allergen ID Allergen Name Allergen Category Reaction Reaction Severity Criticality Documentation Date Start Date Code Code System Note Provider Name and Address Organization Details Recorded Time 29118 atorvasta tin medicatio n other Not available Not available 10/31/2023 02387 RxNorm React ion: unkno wn, unspe cifie d;; Not Available [facility] 4 00:59:20 Medications Name Sig Start Date Stop Date Status Note LastModified by Organization Details LastModified Time medbox status USE DIRECTED active Not Available Not Available No t Available vitamin b-12 1000 mcg tabs active Not Available Not Available Not Available vitamin d 50 mcg (1999 ut) tabs active Not Available Not Available [...] 24 hr 08/09 completed Medicati on ID: [id number] D uration Value: 90 Brand Name: oxybutyn in chloride Send Method: E-Prescr ibed Sub s Allowed: subs OK Speci al Instruct ion: TAKE 1 TABLET BY MOUTH EVERY DAY Medi cationGe nericNam e: oxybutyn in chloride Not Available Not Available Not Available Patanol 0.1 % eye drops 08/09 completed Medicati on ID: 754672 B rand Name: Patanol Send Method: E-Prescr [...] layed release 08/09 completed Medicati on ID: 811794 B rand Name: aspirin Send Method: E-Prescr ibed Sub s Allowed: subs OK Medic ationGen ericName : aspirin Not Available Not Available Not Available tramadol 50 mg tablet 2014 active Medicati on ID: 296055 D uration Value: 28 Brand Name: tramadol Send Method: E-Prescr ibed Sub s Allowed: subs OK Speci al Instruct ion: TAKE 1 TABLET BY MOUTH EVERY 8 HOURS NEEDED FOR PAIN Med icationG enericNa me: tramadol Not Available Not Available Not Available nortripty line 25 mg capsule 08/09 completed Medicati on ID: 576348 D uration Value: 90 Brand Name: nortript yline Se nd Method: E-Prescr ibed Sub s Allowed: subs OK Speci al Instruct ion: TAKE 3 CAPSULES BY MOUTH AT BEDTIME Medicati onGeneri cName: nortript yline Not Available Not Available Not Available levothyro xine 100 mcg tablet 08/09 completed Medicati on ID: 847041 D uration Value: 90 Brand Name: levothyr oxine Se nd Method: E-Prescr ibed Sub s Allowed: subs OK Speci al Instruct ion: TAKE 1 TABLET BY MOUTH EVERY DAY Medi cationGe nericNam e: levothyr oxine Not Available Not [...] elayed release 2014 active Medicati on ID: 710610 D uration Value: 90 Brand Name: omeprazo le Send Method: E-Prescr ibed Sub s Allowed: subs OK Speci al Instruct ion: TAKE 2 CAPSULES BY MOUTH DAILY. M shahabromi Salgadoeneric Name: omeprazo le Not Available Not Available Not Available levetirac [...] propionat e 50 mcg/actua tion nasal spray,tawny pension 2013 active Medicati on ID: 297110 D uration Value: 30 Brand Name: fluticas one Send Method: E-Prescr ibed Sub s Allowed: subs OK Speci al Instruct ion: SPRAY 2 SPRAYS INTO EACH NOSTRIL DAILY Me dication GenericN delmi: fluticas one Not Available Not Available Not Available loratadin e 10 mg tablet 08/09 completed Medicati on ID: 225473 D uration Value: 30 Brand Name: loratadi [...] 500 mg tablet active Medicati on ID: 208977 B rand Name: Tylenol Extra Strength Send [...] History Nothing Reported. Medical History Condition Response Heart Attack ([place]) Y Anemia Y Stroke Y Hypertension Y Asthma Y Gynecological HistoryNo gynecological history recorded. Obstetrics History GPAL:G 0 P 0 0 0 0 Past Encounters Encounter ID Performer Location Encounter Start Date Encounter Closed Date Diagnosis/Indication Diagnosis SNOMED-CT Code Diagnosis ICD10 Code Diagnosis Note [id number] YANIV GARCIA MD [facility] [address] [address] 08/09/2024 09:39:15 08/09/2024 11:07:17 Anterior epistaxis 186323908 R04.0 78-year-ol d female with a history [...] for cautery on the left. Essential hypertension 75865473 I10 Long-term current use of antiplatelet drug 9728918798 28776 Z79.02 Health Concerns Section Related Observation LastModified by Organization Detai ls LastModified Time None Recorded Concern Status LastModified by Organization Details LastModified Time None Recorded Advance Directives Directive None Recorded Payers Encounter Date Sequence Insurance Name Policy Number Policy Zapata Covered Member ID Zapata Member ID Guarantor Name 08/09/2024 1 [facility] Celeste Abad [id number] Celeste Abad Notes Date Note Type Note [...] able to stop them YANIV GARCIA MD [address] [place] [address], [place], [address], [place] - [facility] 08/11/2024 12:36:32 OBGyn Episode No OBEpisode recorded.
--- OUTSIDE RECORDS SUMMARY | 2024-08-26 18:13 | XMS_ITS | Encounter Summary ---
Author Organization [employer] Address [address] 7t [place] [address] Care Team Providers Care Java J2Ee Lead Name Role Phone Name, Eddie GILMORE Primary Care Provider [phone] Reason for Visit * Reason Onset Date Comments september recalls 08/09/2024 Encounter Details Date Type Department Care Team ([facility] st Contact Info) Description 08/09/[address] [facility] [address] [place], [place] [phone] Sophie Marie [place] september recalls Social History [...] Description 09/10/2024 9:45 AM EDT Office Visit [facility] [address] [place] [address] 10/29/2024 2:30 PM EDT Office Visit [address] [address] NameEddie MD [address] [place] [address] documented as of this encounter Visit Diagnoses Not on filedocumented in this encounter Additional Health Concerns Assessment Noted Time PHQ-9 Depression Total Score: 9 05/10/20 24 11:56 AM EST documented as of this encounter Care Teams Java J2Ee Lead Relationship Specialty Start Date End Date Eddie Marshall MD [address] [place] [address] PCP - General Family Medicine 09/16/15 [place] SEN 07/01/24 documented as of this encounter
--- OUTSIDE RECORDS SUMMARY | 2024-08-26 18:13 | XMS_ITS | Encounter Summary ---
Author Organization [employer] Address [address] [place] [address] 7 [place] [address] Care Team Providers Care Home Paraprofessional Name Role Phone Name, Eddie GILMORE Primary Care Provider [phone] Reason for Visit * Reason Comments Med Refill Encounter Details Date Type Department Care Team (Late Contact Info) Description 01/04/2023 Refill [facility] [address] [place] [address] [phone] Name, MD Eddie [address] [place] [address] Gastroesophageal reflux disease, unspecified whether esophagitis present [...] Description 09/10/2024 9:45 AM EDT Office Visit [facility] [address] [place] [address] 10/29/2024 2:30 PM EDT Office Visit [facility] [address] [place] [address] Name, [place] [address] documented as of this encounter Visit Diagnoses Diagnosis Gastroesophageal reflux disease, unspecified whether esophagitis present documented in this encounter Additional Health Concerns Assessment Noted Time PHQ-9 Depression Total Score: 10 023 1:16 PM EDT documented as of this encounter Care Teams Home Paraprofessional Relationship Specialty Start Date End Date Name, [place] [address] PCP - General Family Medicine 09/16/15 [place] A 07/01/24 documented as of this encounter
--- OUTSIDE RECORDS SUMMARY | 2024-08-26 18:13 | XMS_ITS | Encounter Summary ---
Author Organization [employer] Address [address] [place] [address] 7t [place] [address] Care Team Providers Care Doctor Of Nurse Anesthesia Name Role Phone Name, Eddie GILMORE Primary Care Provider [phone] Encounter Details Date Type Department Care Team [...] 09/10/2024 9:45 AM EDT Office Visit [facility] [address] [place] [address] 10/29/2024 2:30 PM EDT Office Visit [facility] [address] [place] [phone] Name, MD Eddie [address] [place] [address] documented as of this encounter Procedures Procedure [...] EST Narrative 08/15/2024 4:55 PM EST ? [facility] ?[address] ?[place] [address] ? Fluoroscopy Report ? Signed ? Patient: Jenniffer,Celeste ?MR#: [id number] ?? 4 ? : 1945 ?Acct:[id number] ? Age/Sex: 78 / F ?ADM Date: 02/26/25 ? Loc: HO.XRAY ? Attending Dr: Julia Li MD ? Ordering Physician: Julia Li MD ?? Date of Service: 08/14/24 ?? Procedure(s): FL barium swallow with air ?? Accession Number(s): [id number] ? cc: Joanna,Eddie GILMORE; Julia Li MD [...] DD/ 0952 ? TD/TT: 08/14/24 1020 ? Patient Safety Manager: ? Procedure Note Geoff, Sahil - 08/15/2024 [place] [address] Fluoroscopy Report Signed Patient: Celeste Abad#: [id number] 4 : 1945cct:[id number] Age/Sex: 78 / FADM Date: 08/14/24 Loc: HO.XRAY Attending Dr: Julia Li MD Ordering Physician: Julia Li MD Date of Service: 08/14/24 Procedure(s): FL barium swallow with air Accession Number(s): [id number] cc: Eddie Marshall MD; Julia Li MD [...] by: Sagar Shore MD 08/15/2024 04:52 PM [facility] Dictated By: Devon Delvalle Signed By: <Electronically signed by Devon Delvalle in OV> 08/15/24 1652 <Electronically signed by Sagar Shore MD in OV> 08/15/24 1654 DD/ 0952 TD/TT: 08/14/24 1020 Patient Safety Manager: [facility] External Provider IMG FLU OROSCOPY PROCEDURES Final Result * Immunofixation (ALEXANDER), Urine (08/14/2024 9:41 AM EST) Pathologist [facility] ALEXANDER Interpretation SEE NOTE H [facility] Comment:Normal pattern. No m onoclonal proteins detected.The supplier of the testing reagents for this assayhas changed. Detection of small monoclonal proteins mayvary by test system.THIS TEST WAS PERFORMED AT:[facility] [place] [phone] PAYNE MD 08/14/2024 9:41 AM EST 08/14/2024 10:39 AM EST Generic External Data Provider LAB URINE ORDERAB LES Final Result [facility] [address] [place] [address] [phone] * (ABNORMAL) Protein, Total and Protein??Electrophoresis (08/14/2024 9:37 AM EST) Prot Elec - Total Protein 6.7 6.1 - 8.1 g/dL [facility] Prot Elec - Albumin 3.2(A) 3.8 - 4.8 g/dL [facility] Prot Elec - Alpha1 0.4(A) 0.2 - 0.3 g/dL [facility] Prot Elec - Alpha2 1.1(A) 0.5 - 0.9 g/dL [facility] Prot Elec - Beta 1 0.5 0.4 - 0.6 g/dL [facility] Prot Elec - Beta 2 0.5 0.2 - 0.5 g/dL [facility] Prot Elec - Gamma 1.0 0.8 - 1.7 g/dL [facility] PES - Abn Protein Band 1 TNP [facility] PES-Abn Protein Band 2 TNP [facility] PES-Abn Protein Band 3 TNP [facility] Prot Elec - Interpretation SEE NOTE [facility] Comment:Evaluation is consis tent with an acute inflammatorypattern.THIS TEST WAS PERFORMED AT:[facility] [place] [phone] PAYNE MD 08/14/2024 9:37 AM EST 08/14/2024 9:41 AM EST Generic External Data Provider LAB BLOOD ORDERAB LES Final Result Performing Organization Address [facility]/ZIP Co de Phone Number [facility] [address] [place] [phone] * (ABNORMAL) Phosphate (As Phosphorus) (08/14/2024 9:37 AM EST) Phosphorus 2.6(L) 2.7 - 4.5 mg/dL [facility] 08/14/2024 9:37 AM EST 08/14/2024 9:41 AM EST Generic External Data Provider LAB BLOOD ORDERAB LES Final Result Performing Organization Address [facility] Co de Phone Number [facility] [address] [place] [phone] documented in this encounter Visit Diagnoses Not on filedocumented in this encounter Additional Health Concerns Assessment Noted Time PHQ-9 Depression Total Score: 9 05/10/20 24 11:56 AM EST documented as of this encounter Care Teams Doctor Of Nurse Anesthesia Relationship Specialty Start Date End Date Name, MD Eddie [address] [place] [address] PCP - General Family Medicine 09/16[facility]15 [facility] documented as of this encounter
--- OUTSIDE RECORDS SUMMARY | 2024-08-26 18:13 | XMS_ITS | Encounter Summary ---
Author Organization [employer] Address [address] [place] [address] 7 [place] [address] Care Team Providers Care Machine Scallop Cutter Name Role Phone Name, Eddie GILMORE Primary Care Provider [phone] Reason for Visit * Reason Onset Date Comments Appointment Request 08/13/2024 Encounter Details Date Type Department Care Team ([facility] st Contact Info) Description 08/13/2024 Telephone [facility] [address] [place], [place] [phone] Name, MD Eddie [address] [place] [address] Appointment Request Social History Tobacco Use Types [...] r/s Apt from 08/13/24. Contact pt at [phone] documented in this encounter Plan of Treatment Upcoming Encounters Date Type Department Care Team (Late st Contact Info) Description 09/10/2024 9:45 AM EDT Office Visit [facility] [place] [address] 10/29/2024 2:30 PM EDT Office Visit [facility] [address] [place] [address] Name, [place] [address] documented as of this encounter Visit Diagnoses Not on filedocumented in this encounter Additional Health Concerns Assessment Noted Time PHQ-9 Depression Total Score: 9 05/10/20 24 11:56 AM EST documented as of this encounter Care Teams Machine Scallop Cutter Relationship Specialty Start Date End Date Name, MD Eddie [address] [place] [address] PCP - General Family Medicine 09/16/15 [place] SEN 07/01/24 documented as of this encounter
--- OUTSIDE RECORDS SUMMARY | 2024-08-26 18:13 | XMS_ITS | Encounter Summary ---
Author Organization [employer] Address [address] [place] [address] 7t [place] [address] Care Team Providers Care Olap Developer Name Role Phone Name, Eddie GILMORE Primary Care Provider [phone] Encounter Details Date Type Department Care Team ([facility] st Contact Info) Description 12/07/2022 Telephone [facility] [address] [place], [place] [phone] Name, MD Eddie [address] [place] [address] Social History Tobacco Use Types Packs/Day Years [...] update PCP now. Ordering provider Pierce Pillai HOSTAGE NEGOTIATOR Follow with genaro as indicated. Results faxed at time of call to [phone]. Ref.# [id number] C documented in this encounter Plan of Treatment Upcoming Encounters Date Type Department Care Team (Late st Contact Info) Description 09/10/2024 9:45 AM EDT Office Visit [facility] [address] [place] [address] 10/29/2024 2:30 PM EDT Office Visit [address] [address] Name, MD Eddie [address] [place] [address] documented as of this encounter Visit Diagnoses Not on filedocumented in this encounter Additional Health Concerns Assessment Noted Time PHQ-9 Depression Total Score: 10 023 1:16 PM EDT documented as of this encounter Care Teams Olap Developer Relationship Specialty Start Date End Date Name, MD Eddie [address] [place] [address] PCP - General Family Medicine 09/16/15 [facility] 07/01/24 documented as of this encounter
--- OUTSIDE RECORDS SUMMARY | 2024-08-26 18:13 | XMS_ITS | Encounter Summary ---
Author Organization [employer] Address [address] [place] [address] 7 [place] [address] Care Team Providers Care Emergency Medical Tech Name Role Phone Name, Eddie GILMORE Primary Care Provider [phone] Reason for Visit * Reason Onset Date Comments Medication Question 09/05/2023 Encounter Details Date Type Department Care Team ([facility] st Contact Info) Description 09/05/2023 Telephone [facility] [address] [place], [place] [phone] Name, MD Eddie [address] [place] [address] Medication Question Social History Tobacco Use Types [...] 9:45 AM EDT Office Visit [facility] MED[facility]INE [address] [place] [phone] 10/29/2024 2:30 PM EDT Office Visit [facility] [address] [place] [phone] Name, MD Eddie [address] [place] [address] documented as of this encounter Visit Diagnoses Not on filedocumented in this encounter Additional Health Concerns Assessment Noted Time PHQ-9 Depression Total Score: 10 11/28/ 023 1:16 PM EDT documented as of this encounter Care Teams Emergency Medical Tech Relationship Specialty Start Date End Date Name, MD Eddie [address] [facility] [place] [address] PCP - General Family Medicine 09/16/15 [place] SEN 07/01/24 documented as of this encounter
--- OUTSIDE RECORDS SUMMARY | 2024-08-26 18:13 | XMS_ITS | Encounter Summary ---
Author Organization [employer] Address [address] [facility] 7t [place] [address] Care Team Providers Care Centrifugal Supervisor Name Role Phone Name, Eddie GILMORE Primary Care Provider [phone] Reason for Visit * Reason Onset Date Comments september recalls 08/09/2024 Encounter Details Date Type Department Care Team ([facility] st Contact Info) Description 08/09/2024 Telephone [facility] [address] [place], [place] [phone] Sophie Marie MA september recalls Social History [...] Description 09/10/2024 9:45 AM EDT Office Visit [facility] [address] [place] [address] 10/29/2024 2:30 PM EDT Office Visit [facility] [address] [place] [address] NameEddie MD [address] [place] [address] documented as of this encounter Visit Diagnoses Not on filedocumented in this encounter Additional Health Concerns Assessment Noted Time PHQ-9 Depression Total Score: 9 05/10/20 24 11:56 AM EST documented as of this encounter Care Teams Centrifugal Supervisor Relationship Specialty Start Date End Date Eddie Marshall MD [address] [place] [address] PCP - General Family Medicine 09/16/15 [place] SEN 07/01/24 documented as of this encounter
--- OUTSIDE RECORDS SUMMARY | 2024-08-26 18:13 | XMS_ITS | Encounter Summary ---
Author Organization [employer] Address [address] [place] [address] [place] [address] Care Team Providers Care Gas Cutter Name Role Phone Name, Eddie GILMORE Primary Care Provider [phone] Reason for Visit * Reason Onset Date Comments Hospital Follow-up 11/10/2022 Encounter Details Date Type Department Care Team (Late st Contact Info) Description 11/10/2022 Refill [facility] [address] [place], [place] [phone] Name, MD Eddie [address] [place] [address] Social History Tobacco Use Types Packs/Day Years [...] Jackman Sent: 11/21/2022 5:23 PM EDT To: [facility] Team Nurses Hi team! Sent this pt to the ED over the weekend for Hgb 7. Got admitted and looks like recently discharged. Can you please outreach her for status check and sched HDF w/ Name? Thank you!! * Telephone Encounter - Suzette Singh RN - 11/22/2022 11:10 AM EDT T/C to [phone] to schedule HDF apt. No answer. LVM to call back on [phone]. ----- Message from Amber Roger RN sent at 11/22/2022 9:06 AM EDT ----- ----- Message ----- From: DENIS Jackman Sent: 11/21/2022 5:23 PM EDT To: [facility] Team Nurses [place] team! Sent this pt to the ED [...] Office Visit [facility] MED[facility] [address] [place] [address] 10/29/2024 2:30 PM EDT Office Visit [facility] [address] [place] [address] Name, MD Eddie [address] [place] [address] documented as of this encounter Visit Diagnoses Not on filedocumented in this encounter Care Teams Gas Cutter Relationship Specialty Start Date End Date NameEddie MD [address] [place] [address] PCP - General Family Medicine 09/16/15 [place] SEN 07/01/24 documented as of this encounter
--- OUTSIDE RECORDS SUMMARY | 2024-08-26 18:13 | XMS_ITS | Continuity of Care Document ---
Author Organization [place] - [facility], [facility] Address [address] [place] [id number] Assessment No assessment recorded. Plan of Treatment [...] Organization Details Recorded Time Essential hypertens ion 77956022 Active 2014 Essential (primary) hypertensi on; Note: Date Diagnosed: 05/07/2015 9:43 AM (I10) Not Available [facility] 4 02:37:47 Bleeding from nose 355075526 Active 2014 Epistaxis; Note: Date Diagnosed: 05/07/2015 9:43 AM (R04.0) Not Available [facility] 4 02:37:50 Anterior epistaxis 280344569 Active 2024 YANIV GARCIA MD [address] [place] [address], [phone] , [place] - [facility] 5 12:32:29 Problem Notes None recorded. Procedures Surgical History Date Name Laterality Status Provider Name and Address Organization Details Recorded Time 5 Epistaxis Simple Nasal Cautery Right completed YANIV GARCIA MD [address] [place] [address], [phone], [place] - [facility] 08/11/2024 12:31:38 Imaging Results None recorded. Procedure Notes None recorded. Medical Equipment None Reported. Allergies Allergen ID Allergen Name Allergen Category Reaction Reaction Severity Criticality Documentation Date Start Date Code Code System Note Provider Name and Address Organization Details Recorded Time 43005 atorvasta tin medicatio n other Not available Not available 10/31/2023 29203 RxNorm React ion: unkno wn, unspe cifie d;; Not Available [facility] 4 00:59:20 Medications Name Sig Start Date [...] 24 hr 08/09 completed Medicati on ID: [id number] D uration Value: 90 Brand Name: oxybutyn in chloride Send Method: E-Prescr ibed Sub s Allowed: subs OK Speci al Instruct ion: TAKE 1 TABLET BY MOUTH EVERY DAY Medi cationGe nericNam e: oxybutyn in chloride Not Available Not Available Not Available Patanol 0.1 % eye drops 08/09 completed Medicati on ID: 278379 B rand Name: Patanol Send Method: E-Prescr [...] layed release 08/09 completed Medicati on ID: [id number] B rand Name: aspirin Send Method: E-Prescr ibed Sub s Allowed: subs OK Medic ationGen ericName : aspirin Not Available Not Available Not Available tramadol 50 mg tablet 2014 active Medicati on ID: 306143 D uration Value: 28 Brand Name: tramadol Send Method: E-Prescr ibed Sub s Allowed: subs OK Speci al Instruct ion: TAKE 1 TABLET BY MOUTH EVERY 8 HOURS NEEDED FOR PAIN Med icationG enericNa me: tramadol Not Available Not Available Not Available nortripty line 25 mg capsule 08/09 completed Medicati on ID: [id number] D uration Value: 90 Brand Name: nortript yline Se nd Method: E-Prescr ibed Sub s Allowed: subs OK Speci al Instruct ion: TAKE 3 CAPSULES BY MOUTH AT BEDTIME Medicati onGeneri cName: nortript yline Not Available Not Available Not Available levothyro xine 100 mcg tablet 08/09 completed Medicati on ID: 234086 D uration Value: 90 Brand Name: levothyr [...] elayed release 2014 active Medicati on ID: [id number] D uration Value: 90 Brand Name: omeprazo le Send Method: E-Prescr ibed Sub s Allowed: subs OK Speci al Instruct ion: TAKE 2 CAPSULES BY MOUTH DAILY. M edicatikarel Salgadoeneric Name: omeprazo le Not Available Not [...] spray,tawny pension 2013 active Medicati on ID: 069252 D uration Value: 30 Brand Name: fluticas one Send Method: E-Prescr ibed Sub s Allowed: subs OK Speci al Instruct ion: SPRAY 2 SPRAYS INTO EACH NOSTRIL DAILY Me dication GenericN delmi: fluticas one Not Available Not Available Not Available loratadin e 10 mg tablet 08/09 completed Medicati on ID: 439642 D uration Value: 30 Brand Name: loratadi [...] 500 mg tablet active Medicati on ID: 969334 B rand Name: Tylenol Extra Strength Send [...] Reported. Medical History Condition Response Heart Attack (MD) Y Anemia Y Stroke Y Hypertension Y Asthma Y Gynecological HistoryNo gynecological history recorded. Obstetrics History GPAL:G 0 P 0 0 0 0 Past Encounters Encounter ID Performer Location Encounter Start Date Encounter Closed Date Diagnosis/Indication Diagnosis SNOMED-CT Code Diagnosis ICD10 Code Diagnosis Note [id number] YANIV GARCIA MD [facility] [address] [phone] 08/09/2024 09:39:15 08/09/2024 11:07:17 Anterior epistaxis 697444036 R04.0 78-year-ol d female with a history [...] for cautery on the left. Essential hypertension 66518026 I10 Long-term current use of antiplatelet drug [id number] 10273 Z79.02 Health Concerns Section Related Observation LastModified by Organization Detai ls LastModified Time None Recorded Concern Status LastModified by Organization Details LastModified Time None Recorded Payers Encounter Date Sequence Insurance Name Policy Number Policy [employer]ap[employer] Covered Member ID Zapata Member ID Guarantor Name 08/09/2024 1 [employer] (MEDICAID HMO) Celeste Abad [id number] Celeste Abad Notes Date Note Type Note [...] able to stop them YANIV GARCIA MD [address] [place] [address],[place] [address], [place], [phone], [place] - [facility] 08/11/2024 12:36:32 OBGyn Episode No OBEpisode recorded.
--- OUTSIDE RECORDS SUMMARY | 2024-08-26 18:13 | XMS_ITS | Encounter Summary ---
Author Organization [employer] Address [address] [place] [address] [place] [address] Care Team Providers Care Snow Groomer Name Role Phone NameEddie MD Primary Care Provider [phone] Reason for Visit * Reason Comments Med Refill Encounter Details Date Type Department Care Team (Late st Contact Info) Description 01/29/2023 Refill [facility] MED[facility]INE [address] [place] [address] [phone] Farhana Singh FNP [address] [place] [address] Dept [place] [address] Social History Tobacco Use Types Packs/Day Years [...] Visit [facility] MEDICINE [address] [place] [address] [phone] 10/29/2024 2:30 PM EDT Office Visit [facility] [address] [place] [address] [phone] Name, MD Eddie [address] [place] [phone] documented as of this encounter Visit Diagnoses Not on filedocumented in this encounter Additional Health Concerns Assessment Noted Time PHQ-9 Depression Total Score: 10 11/28/ 023 1:16 PM EDT documented as of this encounter Care Teams Snow Groomer Relationship Specialty Start Date End Date Name, MD Eddie [address] [place] [address] PCP - General Family Medicine 09/16/15 Jerica A 07/01/24 documented as of this encounter
--- OUTSIDE RECORDS SUMMARY | 2024-08-26 18:13 | XMS_ITS | Clinical Summary ---
Author Organization [employer] Address [address] [place] [address] 7t [place] [address] Care Team Providers Care Penal Officer Name Role Phone Name, Eddie GILMORE Primary Care Provider [phone] Allergies Active Allergy Reactions Criticality Noted Date [...] 06/01/20 22 Active Blood Glucose Monitoring Suppl (Sensitive Object Verio Flex System) w/Device kit USE DIRECTED [...] in the morning. 01/10/20 23 Active Lancets (TruckTrackuch Delica Plus [id number]) miscIndications :Controlled type 2 diabetes mellitus with complication, without long-term current use of insulin ([facility]) USE TO CHECK BLOOD SUGAR TWICE A DAY 100 each 5 09/15/19 24 Active glucose blood (TruckTrackuch Verio) test stripIndication s:Controlled type 2 diabetes [...] refer stat to ENT for cauterization, possible AUTOMATION MECHANIC scope Recommend anterior nasal packing if she is bleeding heavily snf (current) use of opiate analgesic 03/20 Overview (07/17/2024): Dx: chronic pain syndrome/back pain Rx: Percocet 5/325 every 12 hours Last PUSHER RUNNER agreement:03/22/24 Tier II (visit every 3 months) [...] that is chronic ready for her to worm picker today. She understands this is the [...] Type Department Care Team Description 08/19/2024 Refill [facility] [place] [address] Eddie Marshall MD 08/14/2024 Orders Only GENERIC EXTERNAL DATA DEPARTMENT Provider, Generic External Data 08/13/2024 Telephone [facility] [place] [address] Eddie Marshall MD Appointment Request 08/09/2024 Telephone [facility] [place] [address] Sophie Marie MA september recalls 08/09/2024 Telephone [facility] [place] [address] Sophie Marie MA september recalls 08/09/2024 Refill [facility] [place] [address] Eddie Marshall MD Chronic pain syndrome 08/02/2024 2:30 PM EST Office Visit [facility] [place] [place] [address] Latanya Hoover MD Epistaxis (Primary Dx); Controlled type 2 diabetes mellitus with complication, without long-term current use of insulin ([facility]); Dietary counseling; Exercise counseling; Overweight; Anemia, unspecified type 08/02/2024 Travel 07/30/2024 Telephone [facility] [place] [address] Eddie Marshall MD ER Follow-up 07/23/2024 9:00 AM EST Office Visit [facility] [place] [address] Kelly Montoya MD Chronic pain syndrome (Primary Dx) 07/23/2024 Travel 07/17/2024 Refill [facility] [place] [address] Eddie Marshall MD 07/16/2024 9:45 AM EST Office Visit [facility] [address] [place] [address] Mckenzie Trent FNP Chronic pain syndrome (Primary Dx); snf (current) use of opiate analgesic 07/16/2024 9:15 AM EST Office Visit [facility] [address] [place] [address] Kelly Montoya MD Chronic pain syndrome (Primary Dx) 07/16/2024 Orders Only [facility] External Provider, [facility] 07/16/2024 Travel 07/12/2024 Refill [facility] [address] [place] [address] NameEddie MD 07/12/2024 Refill [facility] [address] [place] [address] Eddie Marshall MD Chronic pain syndrome 07/02/2024 Telephone [facility] [address] [place] [address] Eddie Marshall MD 06/10/2024 Telephone [facility] [address] [place] [address] Eddie Marshall MD Med Refill 06/10/2024 Refill [facility] [address] [place] [address] 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, hazmat cdl driver pain syndrome 06/03/2024 Telephone [facility] [address] [place] [address] Eddie Marshall MD Medication Question 05/29/2024 Orders Only [facility] [address] [place] [address] Eddie Marshall MD 05/29/2024 Telephone [facility] [address] [place] [address] 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, RN Pt agreeable Fosamax 05/29/[address] [address] Eddie Marshall MD Medication Question from Last 3 Months Immunizations Name Administration Dates Next Due Influenza injectable quadriv alent IIV4 with preservative 04/07/2016 Influenza, IIV3, injectable 03/23/2015,1 ,03/08/2013,04/06,05/01/2008,04/19/2007,05/10/2006 ,03/15/2005 Novel obthtoara-[id number], preservative-free 05/22/2009 Pneumococcal Polysaccharide PPSV23 07/11/2013, TD [...] Description 09/10/2024 9:45 AM EDT Office Visit [facility] [address] [place] [address] 10/29/2024 2:30 PM EDT Office Visit [facility] [address] [place] [address] Name, MD Eddie [address] [place] [address] Health Maintenance Due Date Last Done Comments [...] EST snf (current) use of opiate analgesic AMB REFERRAL [...] EST Narrative 08/15/2024 4:55 PM EST ? [facility] ?[address] ?[place] [address] ? Fluoroscopy Report ? Signed ? Patient: Celeste Abad ?MR#: [id number] ?? 4 ? : 1945 ?Acct:[id number] ? Age/Sex: 78 / F ?ADM Date: 08/14/24 ? Loc: HO.XRAY ? Attending Dr: Julia Li MD ? Ordering Physician: Julia Li MD ?? Date of Service: 08/14/24 ?? Procedure(s): FL barium swallow with air ?? Accession Number(s): [id number] ? cc: Eddie Marshall MD; Julia Li [...] ??08/15/2024 04:52 PM EST RP ?? Workstation: [id number] ? Dictated By: ?Devon Delvalle ? Signed By: ?<Electronically signed by Devon Delvalle in OV> ? 08/15/24 1652 ?<Electronically signed by Sagar Shore MD in OV> ? 08/15/24 1654 ? DD/ 0952 ? TD/TT: 08/14/24 1020 ? Convenience Store Manager: ? Procedure Note Sahil Tellez - 08/15/[address] [address] Fluoroscopy Report Signed Patient: Celeste Abad#: [id number] 4 : 7Acct:[id number] Age/Sex: 78 / FADM Date: 08/14/24 Loc: HO.XRAY Attending Dr: Julia Li MD Ordering Physician: Julia Li MD Date of Service: 08/14/24 Procedure(s): FL barium swallow with air Accession Number(s): [id number] cc: Name,Eddie GILMORE; Julia Li MD EXAMINATION: [...] MD 08/15/2024 04:52 PM EST RP Workstation: [id number] Dictated By: Devon Delvalle Signed By: <Electronically signed by Devon Delvalle in OV> 08/15/24 1652 <Electronically signed by Sagar Shore MD in OV> 08/15/24 1654 DD/ 0952 TD/TT: 08/14/24 1020 Convenience Store Manager: [facility] External Provider IMG FLU OROSCOPY PROCEDURES Final Result * Immunofixation (ALEXANDER), Urine (08/14/2024 9:41 AM EST) [facility] ALEXANDER Interpretation SEE NOTE H [facility] Comment:Normal pattern. No m onoclonal proteins detected.The supplier of the testing reagents for this assayhas changed. Detection of small monoclonal proteins mayvary by test system.THIS TEST WAS PERFORMED AT:[employer] [place] [phone] PAYNE MD 08/14/2024 9:41 AM EST 08/14/2024 10:39 AM EST Generic External Data Provider LAB URINE ORDERAB LES Final Result [facility] [address] [place], [place] [phone] * (ABNORMAL) Protein, Total and Protein??Electrophoresis (08/14/2024 9:37 AM EST) Pathologist [facility] Prot Elec - Total Protein 6.7 6.1 - 8.1 g/dL [facility] Prot Elec - Albumin 3.2(A) 3.8 - 4.8 g/dL [facility] Prot Elec - Alpha1 0.4(A) 0.2 - 0.3 g/dL [facility] Prot Elec - Alpha2 1.1(A) 0.5 - 0.9 g/dL [facility] Prot Elec - Beta 1 0.5 0.4 - 0.6 g/dL [facility] Prot Elec - Beta 2 0.5 0.2 - 0.5 g/dL [facility] Prot Elec - Gamma 1.0 0.8 - 1.7 g/dL [facility] PES - Abn Protein Band 1 TNP [facility] PES-Abn Protein Band 2 TNP [facility] PES-Abn Protein Band 3 [facility] Prot Elec - Interpretation SEE NOTE [facility] Comment:Evaluation is consis tent with an acute inflammatorypattern.THIS TEST WAS PERFORMED AT:[employer] [place] [phone] PAYNE MD 08/14/2024 9:37 AM EST 08/14/2024 9:41 AM EST Generic External Data Provider LAB BLOOD ORDERAB LES Final Result Performing Organization Address [facility] Co de Phone Number [facility] [address] [place] [phone] * (ABNORMAL) Phosphate (As Phosphorus) (08/14/2024 9:37 AM EST) Phosphorus 2.6(L) 2.7 - 4.5 mg/dL [facility] 08/14/2024 9:37 AM EST 08/14/2024 9:41 AM EST Generic External Data Provider LAB BLOOD ORDERAB LES Final Result Performing Organization Address [facility] Co de Phone Number [facility] [address] [place] [phone] * (ABNORMAL) POCT HGB A1C (08/02/2024 2:14 PM EST) Pathologist [facility] Hemoglobin A1C 6.2(A) 4.0 - 6.0 % QC Media Lot # [id number] Lot# Expiration Date ,026 Blood 08/02/2024 2:14 PM EST us Latanya Hoover MD POINT OF CARE TEST ENTER/EDIT ORDERABLES Final Result * POCT Glucose (08/02/2024 2:14 PM EST) Pathologist [facility] Glucose Blood, POC 131 60 - 200 [...] EST Narrative 07/16/2024 7:07 PM EST ? [facility] ?[address] ?[place] [address] ?XRay Report ? Signed ? Patient: Jenniffer,Celeste ?MR#: [id number] ?? 4 ? : 1945 ?Acct:[id number] ? Age/Sex: 78 / F ?ADM Date: 07/16/24 ? Loc: HO.ED ? Attending Dr: ? Ordering Physician: Rhea Ken ?? Date of Service: 07/16/24 ?? Procedure(s): XR KUB ?? Accession Number(s): [id number] ? cc: Jesus Manuel,Rhea DALAL; Name,Eddie GILMORE [...] ? DD/ 06 ? TD/TT: 07/16/241906 ? Convenience Store Manager: ? Procedure Note Donotuseinterpreter, Image - 07/16/[address] [address] XRay Report Signed Patient: Celeste AbadMR#: [id number] 4 : 7Acct:[id number] Age/Sex: 78 / FADM Date: 07/16/24 Loc: HO.ED Attending Dr: Ordering Physician: Rhea Ken Date of Service: 07/16/24 Procedure(s): XR KUB Accession Number(s): [id number] cc: Rhea Ken; Name,Eddie GILMORE CLINICAL HISTORY: [...] in OV> 07/16/241906 DD/ 06 TD/TT: 07/16/241906 Convenience Store Manager: [facility] External Provider IMG XR PROCEDURES Final Result * SARS-CoV-2 RNA, Influenza A/B, and RSV RNA, Ql NAAT (07/16/2024 7:06 PM EST) Influenza A PCR NEGATIVE Negative [facility] Influenza B PCR NEGATIVE Negative [facility] Resp Syncy Virus RNA Qual PCR NEGATIVE Negative [facility] SARS COV2 PCR NEGATIVE Negative [facility] Comment:All test results mus [...] use by authorized laboratories.Testing performed on the [employer] GeneXpert utilizingreal-time RT-PCR.All SARS CoV2 and positive influenza A/B results arereported to [facility]. 07/16/2024 7:06 PM EST 07/16/2024 7:11 PM EST us Generic External Data Provider LAB MICROBIOLOGY - GENERAL ORDERABLES Final Result [facility] [address] [place] [phone] * (ABNORMAL) CBC auto differential (07/16/2024 7:06 PM EST) White Blood Count 10.1 4.8 - 10.8 X10*3/uL [facility] Red Blood Count 4.68 4.20 - 5.50 X10*6/uL [facility] Hemoglobin 13.3 12.0 - 16.0 g/dl [facility] Hematocrit 40.7 37.0 - 47.0 % [facility] Mean Corpuscular Volume 87.0 80.0 - 98.0 fL [facility] Mean Corpuscular Hemoglobin 28.4 27.0 - 33.0 pg [facility] Mean Corpuscular HGB Conc 32.7 31.0 - 35.0 g/dl [facility] Red Cell Distribution Width 15.0 11.0 - 16.0 % [facility] Platelet Count 272 160 - 400 X10*3/uL [facility] Mean Platelet Volume 9.9 9.4 - 12.3 fL [facility] Neutrophils Percent Auto 74.5(H) 45 - 73 % [facility] Imm Gran Pct Auto 0.3 0.0 - 0.4 % [facility] Lymphocytes Percent Auto 16.3(L) 20 - 40 % [facility] Monocytes Percent Auto 8.0 2 - 11 % [facility] Eosinophils Percent Auto 0.7 0 - 4 % [facility] Basophils Percent Auto 0.2 0 - 2 % [facility] NRBC Pct Auto 0.0 0.0 - 0.2 /100WBC [facility] Neutrophils Absolute Auto 7.6 2.0 - 8.3 x10*3/uL [facility] Imm Gran Abs Auto 0.03 0.00 - 0.03 X10*3/uL [facility] Lymphocytes Absolute Auto 1.7 1.2 - 4.9 X10*3/uL [facility] Monocytes Absolute Auto 0.8 0.1 - 1.2 X10*3/uL [facility] Eosinophils Absolute Auto 0.1 0.0 - 0.4 X10*3/uL [facility] Basophils Absolute Auto 0.0 0.0 - 0.2 X10*3/uL [facility] NRBC Abs Auto 0.000 0.0 - 0.012 X10*3/uL [facility] 07/16/2024 7:06 PM EST 07/16/2024 7:11 PM EST us Generic External Data Provider LAB BLOOD ORDERAB LES Final Result Performing Organization Address [facility] Co de Phone Number [facility] [address] [place] [phone] * Magnesium (07/16/2024 7:06 PM EST) Magnesium 2.2 1.6 - 2.6 mg/dL [facility] 07/16/2024 7:06 PM EST 07/16/2024 7:11 PM EST us Generic External Data Provider LAB BLOOD ORDERAB LES Final Result Performing Organization Address City/[facility] Co de Phone Number [facility] [address] [place] [phone] * Lipase (07/16/2024 7:06 PM EST) Pathologist [facility] Lipase 8 8 - 78 U/L [facility] 07/16/2024 7:06 PM EST 07/16/2024 7:11 PM EST Generic External Data Provider LAB BLOOD ORDERAB LES Final Result Performing Organization Address [facility]/ZIP Co de Phone Number [facility] [address] [place] [phone] * (ABNORMAL) Hepatic Function Panel (07/16/2024 7:06 PM EST) [facility] Bilirubin, Total 0.4 0.0 - 1.0 mg/dL [facility] Bilirubin, Direct 0.2 0.0 - 0.5 mg/dL [facility] Aspartate Amino Transferase 37(H) 5 - 31 U/L [facility] Alanine Aminotransferase 27 0 - 31 U/L [facility] Total Protein 7.5 6.5 - 8.0 g/dL [facility] Albumin Level 3.9 3.5 - 5.0 g/dL [facility] Alkaline Phosphatase 136(H) 39 - 117 U/L [facility] 07/16/2024 7:06 PM EST 07/16/2024 7:11 PM EST Generic External Data Provider LAB BLOOD ORDERAB LES Final Result Performing Organization Address City/[facility]/ZIP Co de Phone Number [facility] [address] [place] [phone] * (ABNORMAL) Basic Metabolic Panel (07/16/2024 7:06 PM EST) Pathologist [facility] Sodium 139 135 - 145 mmol/L [facility] Potassium 4.3 3.3 - 5.1 mmol/L [facility] Chloride 102 96 - 108 mmol/L [facility] Carbon Dioxide 25 22 - 29 mmol/L [facility] Anion Gap 16 12 - 20 [facility] Urea Nitrogen (BUN) 18(H) 9 - 16 mg/dL [facility] Creatinine, Serum 0.73 0.5 - 1.4 mg/dL [facility] Creatinine Clr Calc Pharmacy 58.3 [facility] Comment:Provided height and weight: 157.48 cm,68.039 kg.eGFR (calculated from the MDRD study equation) and eCrCl(calculated from the Cockcroft-Gault equation) are based ondifferent parameters and may not yield comparable results.If eCrCl result is absurd, please check patient'sheight/weight. Estimated Glomerular Filt Rate >60 [facility] Comment:Chronic Kidney Disea se: Estimated GFR < 60 mL/min/1.73g5Cofahr Kidney Disease: Estimated GFR < 15 mL/min/1.73m2 Glucose 124(H) 60 - 115 mg/dL [facility] Calcium 9.1 8.4 - 10.2 mg/dL [facility] 07/16/2024 7:06 PM EST 07/16/2024 7:11 PM EST us Generic External Data Provider LAB BLOOD ORDERAB LES Final Result [facility] [address] [place] [phone] * POCT ADRIAN-14 Urine Drug Screen (07/16/2024 1:49 PM EST) Oxycodone Screen, Urine Positive Urine Urine specimen obtained by clean catch procedure / Unknown 07/16/2024 1:49 PM EST Mckenzie Trent CARRIAGE FEEDER POINT OF CARE TEST ENTER/EDIT ORDERABLES Final Result * Referral to Orthopaedic Surgery (06/03/2024) Eddie Marshall MD OUTPATIENT REFERRAL ORDERABLES F inal Result * (ABNORMAL) Lipid Panel, Standard (01/16/2024 9:40 AM EDT) Triglycerides 199(H) <150 mg/dL [facility] Comment:Desirable Triglyceri de: less than 150 mg/dLBorderline High Triglyceride 150-199 mg/dLHigh Triglyceride: 200-499 mg/dLVery High Triglyceride: greater than or equal to 5OO mg/dL Cholesterol 150 <200 mg/dL [facility] Comment:Desirable Cholestero l: less than 200 mg/dLBorderline High Cholesterol: 200-239 mg/dLHigh Cholesterol: greater than 239 mg/dL LDL Cholesterol Calculated 63 <100 mg/dL [facility] Comment:Desirable LDL: less than 100 mg/dLNear Optimal/Above Optimal LDL: 110- 129 mg/dLBorderline High LDL: 130-159 mg/dLHigh LDL: 160-189 mg/dLVery High LDL: greater than or equal to 190 mg/dL HDL Cholesterol 48 >40 mg/dL [facility] Comment:Desirable HDL: great er than 40 mg/dL Note: This HDL assay may give artificially low results in patients with liver disease. Blood Venous blood specimen / Unknown 01/16/2024 9:40 AM EDT 01/16/2024 11:20 AM EDT us Eddie Name LAB BLOOD ORDERABLES Final Resul t [facility] [address] [place] [phone] * Albumin, Random Urine W/Creatinine (01/16/2024 9:35 AM EDT) Creatinine, Urine 27.62 mg/dL [facility] Microalbumin Urine <5.0 mg/L [facility] Microalbum Creatinine Ratio Ur TNP <30 ug/mg cr [facility] Comment:Unable to calculate albumin/creatinine ratio due to lowmicroalbumin or creatinine result. Urine (Urine, Random) 01/16/2024 9:35 AM EDT 01/16/2024 11:12 AM EDT us Eddie Marshall MD LAB URINE ORDERABLES Final Resul t Performing Organization Address City/State/[facility] Co de Phone Number [facility] [address] [place] [phone] * Hm Diabetes Eye Exam (05/16/2023) Eye Exam Normal Normal Result [facility] Eddie Marshall MD HEALTH MAINTENANCE Final Result * (ABNORMAL) Hepatitis Panel, General (11/18/2022 2:07 PM EDT) Hepatitis A Antibody Total REACTIVE( A) NON-REACT NAHID [email or web address] [place] [employer] Comment: For additional information, please refer to http://The TechMap.Nextinit/faq/KMQ172 (This link is being provided for informational/ educational purposes only.) Hepatitis B Surface Antibody QL NON-REACT NAHID NON-REACT NAHIDRaptr [facility] CenterSensioLabs Hepatitis B Surface Ag NON-REACT NAHID NON-REACT NAHID [email or web address] [place] [employer] Hepatitis B Core Antibody Total NON-REACT NAHID NON-REACT NAHIDRaptr [facility] CenterArrively Hepatitis C Antibody NON-REACT NAHID NON-REACT NAHID [employer] [place] [employer] Index 0.07 <1.00 [employer] [place] [employer] Comment: HCV antibody was non-reactive. There is no laboratory evidence of HCV infection. In most cases, no further action is required. However, if recent HCV exposure is suspected, a test for HCV RNA (test code 23784) is suggested. For additional information please refer to http://The TechMap.Nextinit/faq/SVD32b3 (This link is being provided for informational/ educational purposes only.) 11/18/2022 2:07 PM EDT 11/18/2022 2:09 PM EDT Narrative [facility] - 11/19/2022 6:51 AM EDT COLLECTION KIT GIVEN TO PATIENT. PATIENT ADVISED TO RETURN. us Mckenzie RODRIGUEZ LAB BLOOD ORDERABLES Final Res ult [facility] [address], [place] [address] [facility] [address] [place] [phone] from Last 3 Months or Most Recently Relevant to Health Maintenance Insurance [employer] [id number] Care Teams Penal Officer Relationship Specialty Start Date End Date Name, MD Eddie [address] [place] [phone] PCP - General Family Medicine 09/16/15 [place] [facility] 07/01/24
--- OUTSIDE RECORDS SUMMARY | 2024-08-26 18:13 | XMS_ITS | Encounter Summary ---
Author Organization [employer] Address [address] [place] [address] 7 [place] [address] Care Team Providers Care Rfid Systems Engineer Name Role Phone Name, Eddie GILMORE Primary Care Provider [phone] Reason for Visit * Reason Comments Med Refill Encounter Details Date Type Department Care Team (Late Contact Info) Description 12/01/2022 Refill [facility] [address] [place], [place] [phone] Name, MD Eddie [address] [place] [address] Controlled type 2 diabetes mellitus with complication, without long-term current use of insulin ([facility]) Social History Tobacco Use Types Packs/Day Years [...] Description 09/10/2024 9:45 AM EDT Office Visit [facility] [place] [place] [address] 10/29/2024 2:30 PM EDT Office Visit [facility] [place] [place] [address] Name, [place] [address] documented as of this encounter Visit Diagnoses Diagnosis Controlled type 2 diabetes mellitus with complication, without long-term current use of insulin ([facility]) documented in this encounter Additional Health Concerns Assessment Noted Time PHQ-9 Depression Total Score: 10 023 1:16 PM EDT documented as of this encounter Care Teams Rfid Systems Engineer Relationship Specialty Start Date End Date Name, [place] [address] PCP - General Family Medicine 09/16/15 [place] 07/01/24 documented as of this encounter
== END 2024-08-26 16:38 | disposition home or self-care (01) ==
LOC: HO.CT 16:37
PROVIDERS: PCP Internal Medicine Geriatric Medicine; Visit Provider Nurse Practitioner Family
DX: J43.9 Emphysema, unspecified (principal); J44.9 Chronic obstructive pulmonary disease, unspecified; K21.9 Gastro-esophageal reflux disease without esophagitis; K64.9 Unspecified hemorrhoids; K44.9 Diaphragmatic hernia without obstruction or gangrene; R04.0 Epistaxis; M81.0 Age-related osteoporosis without current pathological fracture
CPT/HCPCS: 71250; 99212

== ENCOUNTER → 2024-08-26 16:38 | Outpatient (BNV) | payer MEDICARE, SELFPAY | PROVIDERS: PCP Internal Medicine Geriatric Medicine; Visit Provider Nuclear Medicine | DX: J43.9 Emphysema, unspecified (principal) | CPT/HCPCS: 71250 ==

== ENCOUNTER 2024-08-27 13:09 | Outpatient (REF) | payer MEDICARE, SELFPAY ==
[2024-08-27 13:55] LABS: Hematocrit 33.1 % (37.0-47.0); Mean Corpuscular HGB Conc 30.2 g/dl (31.0-35.0); Mean Corpuscular Hemoglobin 24.6 pg (27.0-33.0); Mean Corpuscular Volume 81.5 fL (80.0-98.0); Mean Platelet Volume 9.4 fL (9.4-12.3); Platelet Count 393 X10*3/uL (160-400); Red Blood Count 4.06 X10*6/uL (4.20-5.50); Red Cell Distribution Width 16.3 % (11.0-16.0)
[2024-08-27 14:44] LABS: Iron 14 mcg/dL (30-160); Percent Iron Saturation 5 % (15-50); Total Iron Binding Capacity 295 mcg/dL (228-428); Unsaturated Iron Binding 281 ug/dL
[2024-08-27 15:02] LABS: Ferritin 35 ng/mL (10-250)
--- OUTSIDE RECORDS SUMMARY | 2024-08-27 15:58 | XMS_ITS | Clinical Summary ---
Author Organization [employer] Address [address] [place] [address] 7[address] [place] [address] Care Team Providers Care Entertainment Centre Manager Name Role Phone Name, Eddie GILMORE Primary Care Provider [phone] Allergies Active Allergy Reactions Criticality Noted Date [...] 06/01/20 22 Active Blood Glucose Monitoring Suppl (CombiMatrix Verio Flex System) w/Device kit USE DIRECTED [...] in the morning. 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 She understands this is the [...] Encounters Date Type Department Care Team Description 08/27/2024 Orders Only GENERIC EXTERNAL DATA DEPARTMENT Provider, Generic External Data 08/26/2024 Orders Only [facility] External Provider, [facility] 08/19/2024 Refill [facility] [place] [address] Eddie Marshall MD 08/14/2024 Orders Only GENERIC EXTERNAL DATA DEPARTMENT Provider, Generic External Data 08/13/2024 Telephone [facility] [place] [address] Eddie Marshall MD Appointment Request 08/09/[address] [address] Sophie Marie [place] september recalls 08/09/2024 Telephone [facility] [place] [address] Sophie Marie [place] september recalls 08/09/2024 Refill [facility] [place] [address] Eddie Marshall MD Chronic pain syndrome 08/02/2024 2:30 PM EST Office Visit [facility] [place] [address] Latanya Hoover MD Epistaxis (Primary Dx); Controlled type 2 diabetes mellitus with complication, without long-term current use of insulin ([facility]); Dietary counseling; Exercise counseling; Overweight; Anemia, unspecified type 08/02/2024 Travel 07/30/2024 Telephone [facility] [place] [address] Eddie Marshall MD ER Follow-up 07/23/2024 9:00 AM EST Office Visit [facility] [place] [address] Kelly Montoya MD Chronic pain syndrome (Primary Dx) 07/23/2024 Travel 07/17/2024 Refill [facility] [address] [place] [address] Eddie Marshall MD 07/16/2024 9:45 AM EST Office Visit [facility] [address] [facility] [place] [address] Mckenzie Trent FNP Chronic pain syndrome (Primary Dx); 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 07/16/2024 9:15 AM EST Office Visit [facility] [address] [place] [address] Kelly Montoya MD Chronic pain syndrome (Primary Dx) 07/16/2024 Orders Only [facility] External Provider, [facility] 07/16/2024 Travel 07/12/2024 Refill [facility] [address] [place] [address] Eddie Marshall MD 07/12/2024 Refill [facility] [place] [address] Eddie Marshall MD Chronic pain syndrome 07/02/2024 Telephone [facility] [address] [place] [phone] Eddie Marshall MD 06/10/2024 Telephone [facility] [address] [place] [phone] Eddie Marshall MD Med Refill 06/10/2024 Refill [facility] [address] [place] [phone] 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, estate manager pain syndrome 06/03/2024 Telephone [facility] [address] [place] [phone] Eddie Marshall MD Medication Question 05/29/2024 Orders Only [facility] [address] [place] [phone] Eddie Marshall MD 05/29/2024 Telephone [facility] [address] [place] [address] 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, RN Pt agreeable Fosamax 05/29/2024 Telephone [facility] [address] [place] [phone] Eddie Marshall MD Medication Question from Last 3 Months Immunizations Name Administration Dates Next Due Influenza injectable quadriv alent IIV4 with preservative 04/07/2016 Influenza, IIV3, injectable 03/23/2015,1 ,03/08/2013,04/06,05/01/2008,04/19/2007,05/10/2006 ,03/15/2005 Novel buosufiir-[id number], preservative-free 05/22/2009 Pneumococcal Polysaccharide PPSV23 07/11/2013, TD [...] [facility] [address] [place] [phone] 10/29/2024 2:30 PM EDT Office Visit [facility] [address] [place] [phone] Name, MD Eddie [address] [place] [phone] Health Maintenance Due Date Last Done Comments [...] Procedure Name Priority Date/Time Associated Diagnosis Comments CT CHEST WO CONTRAST Routine 08/27/2024 2:12 PM EDT FERRITIN Routine 08/27/2024 1:25 PM EDT IRON AND TOTAL IRON BINDING CAPACITY Routine 08/27/2024 1:25 PM EDT CBC Routine 08/27/2024 1:25 PM EDT FL ESOPHAGUS BARIUM SWALLOW WITH AIR Routine [...] DRUG SCREEN Routine 07/16/2024 1:49 PM EST 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 [facility] ?[address] ?[place] [address] ? CT Scan Report ? Signed ? Patient: Celeste Abad ?MR#: [id number] ?? 4 ? : 1945 ?Acct:[id number] ? Age/Sex: 78 / F ?ADM Date: 08/26/24 ? Loc: HO.CT ? Attending Dr: Maria Esther Blum FLAME BURNER ? Ordering Physician: Maria Esther Blum NP ?? Date of Service: 08/26/24 ?? Procedure(s): CT chest wo IV con ?? Accession Number(s): [id number] ? cc: Name,Eddie GILMORE; Maria Esther Blum NP ? Report Number: ?? [id number]: Total DLP = ??208.00 mGy-cm ? CLINICAL HISTORY: J43.9 - Emphysema, unspecified ? CT chest without contrast ? Comparison: CR - CHEST 2 VIEWS - 11/14/17 19:22 EDT ? Findings: ?? The heart size is normal. Severe Atherosclerosis calcification of the ?? coronary artery. ?? The visualized thyroid and mediastinum are unremarkable. Large hiatal ?? hernia. ? No consolidation or effusion. Severe centrilobular emphysema. 7.7 mm ?? nodular density of the right upper lobe series 7, image 68 and 5 mm ?? nodular density of the right upper lobe on image 78. ? The visualized upper abdomen is unremarkable. ?? No acute fractures. ? IMPRESSION: ?? Nodular densities of the right upper lobe. CT chest follow-up in 3-6 ?? months is recommended. ? Fleischner Society 2017 Guidelines for incidentally detected indeterminate ?? nodules in persons 35 years of age or older. ? Single Solid Nodules: ?? 5 mm or smaller nodules need no follow-up in low risk, and [address] ?? follow-up is optional in high risk patients. ?? 6-8 mm nodules have optional [address] follow-up in low risk, and 6-12 ?? month CT follow-up followed by 18-[address] follow-up if no change in ?? high risk patients. ?? 9 mm or larger nodules should consider CT, PET/CT, or biopsy at 3 months ?? regardless of patient risk. ? Multiple Solid Nodules: ?? 5 mm or smaller nodules need no follow-up in low risk, and [address] ?? follow-up is optional in high risk patients. ?? 6-8 mm nodules need 3-[address] follow-up followed by an optional 18-24 ?? [address] follow-up regardless of patient risk. ?? 9 mm or larger nodules should consider 3-[address] follow-up. For low ?? risk 18-24 month follow-up is optional, whereas for high risk it is needed. ? Single Ground Glass Nodules: ?? 5 mm or smaller nodules need no followup ?? 6 mm and larger nodules need CT at 6-12 months to confirm persistence, ?? then CT every 2 years until 5 years ? Single Subsolid Nodules: ?? 5 mm or smaller nodules need no followup ?? 6 mm and larger nodules need CT at 3-6 months to confirm persistence. If ?? no change and solid component /T/lt;6 mm, then CT every year until 5 years ? Multiple Ground Glass or Subsolid Nodules: ?? 5 mm or smaller nodules need CT at 3-6 months. If stable, optional CT at 2 ?? and 4 years. ?? 6 mm or larger nodules need CT at 3-6 months. Subsequent management based ?? on most suspicious nodule ? This document has been electronically signed by: German Riley MD on ?? 08/27/2024 14:12:38 ? Dictated By: ?German Riley MD ? Signed By: ?<Electronically signed by German Riley MD in OV> ? 08/27/24 1413 ? DD/ 1412 ? TD/TT: 08/27/24 1412 ? Brim Cutter: ? Procedure Note Donotuseinterpreter, Image - 08/27/[address] [place] [address] [address] Scan Report Signed Patient: Ventura Abad#: [id number] 4 : 1945cct:[id number] Age/Sex: 78 / FADM Date: 08/26/24 Loc: HO.CT Attending Dr: Maria Esther Blum NP Ordering Physician: Maria Esther Blum NP Date of Service: 08/26/24 Procedure(s): CT chest wo IV con Accession Number(s): [id number] cc: Eddie Marshall MD; Maria Esther Blum NP Report Number: [id number]: Total DLP = 208.00 mGy-cm CLINICAL HISTORY: J43.9 - Emphysema, unspecified CT chest without contrast Comparison: CR - CHEST 2 VIEWS - 11/14/17 19:22 EDT Findings: The heart size is normal. Severe Atherosclerosis calcification of the coronary artery. The visualized thyroid and mediastinum are unremarkable. Large hiatal hernia. No consolidation or effusion. Severe centrilobular emphysema. 7.7 mm nodular density of the right upper lobe series 7, image 68 and 5 mm nodular density of the right upper lobe on image 78. The visualized upper abdomen is unremarkable. No acute fractures. IMPRESSION: Nodular densities of the right upper lobe. CT chest follow-up in 3-6 months is recommended. Fleischner Society 2017 Guidelines for incidentally detected indeterminate nodules in persons 35 years of age or older. Single Solid Nodules: 5 mm or smaller nodules need no follow-up in low risk, and [address] follow-up is optional in high risk patients. 6-8 mm nodules have optional [address] follow-up in low risk, and 6-[address] follow-up followed by 18-[address] follow-up if no change in high risk patients. 9 mm or larger nodules should consider CT, PET/CT, or biopsy at 3 months regardless of patient risk. Multiple Solid Nodules: 5 mm or smaller nodules need no follow-up in low risk, and [address] follow-up is optional in high risk patients. 6-8 mm nodules need 3-[address] follow-up followed by an optional 18-[address] follow-up regardless of patient risk. 9 mm or larger nodules should consider 3-[address] follow-up. For low risk 18-24 month follow-up is optional, whereas for high risk it isneeded. Single Ground Glass Nodules: 5 mm or smaller nodules need no followup 6 mm and larger nodules need CT at 6-12 months to confirm persistence, then CT every 2 years until 5 years Single Subsolid Nodules: 5 mm or smaller nodules need no followup 6 mm and larger nodules need CT at 3-6 months to confirm persistence. If no change and solid component /T/lt;6 mm, then CT every year until 5 years Multiple Ground Glass or Subsolid Nodules: 5 mm or smaller nodules need CT at 3-6 months. If stable, optional CT at 2 and 4 years. 6 mm or larger nodules need CT at 3-6 months. Subsequent management based on most suspicious nodule This document has been electronically signed by: German Riley MD on 08/27/2024 14:12:38 Dictated By: German Riley MD Signed By: <Electronically signed by German Riley MD in OV> 08/27/24 1413 DD/ 1412 TD/TT: 08/27/24 1412 Brim Cutter: [facility] External Provider IMG CT PROCEDURES Final Result * (ABNORMAL) Iron And Total Iron Binding Capacity (08/27/2024 1:25 PM EDT) Iron 14(L) 30 - 160 mcg/dL [facility] Total Iron Binding Capacity 295 228 - 428 mcg/dL [facility] Percent Iron Saturation 5(L) 15 - 50 % [facility] Unsaturated Iron Binding 281 ug/dL [facility] 08/27/2024 1:25 PM EDT 08/27/2024 1:25 PM EDT us Generic External Data Provider LAB BLOOD ORDERAB LES Final Result [facility] [address] [place] [address] [phone] * (ABNORMAL) CBC (08/27/2024 1:25 PM EDT) White Blood Count 9.0 4.8 - 10.8 X10*3/uL [facility] Red Blood Count 4.06(L) 4.20 - 5.50 X10*6/uL [facility] Hemoglobin 10.0(L) 12.0 - 16.0 g/dl [facility] Hematocrit 33.1(L) 37.0 - 47.0 % [facility] Mean Corpuscular Volume 81.5 80.0 - 98.0 fL [facility] Mean Corpuscular Hemoglobin 24.6(L) 27.0 - 33.0 pg [facility] Mean Corpuscular HGB Conc 30.2(L) 31.0 - 35.0 g/dl [facility] Red Cell Distribution Width 16.3(H) 11.0 - 16.0 % [facility] Platelet Count 393 160 - 400 X10*3/uL [facility] Mean Platelet Volume 9.4 9.4 - 12.3 fL [facility] NRBC Pct Auto 0.0 0.0 - 0.2 /100WBC [facility] NRBC Abs Auto 0.000 0.0 - 0.012 X10*3/uL [facility] 08/27/2024 1:25 PM EDT 08/27/2024 1:25 PM EDT us Generic External Data Provider LAB BLOOD ORDERAB LES Final Result Performing Organization Address [facility] Co de Phone Number [facility] [address] [place] [phone] * Ferritin (08/27/2024 1:25 PM EDT) Ferritin 35 10 - 250 ng/mL [facility] 08/27/2024 1:25 PM EDT 08/27/2024 1:25 PM EDT Generic External Data Provider LAB BLOOD ORDERAB LES Final Result Performing Organization Address [facility] de Phone Number [facility] [address] [place] [address] [phone] * FL Esophagus Barium Swallow w/Air (08/14/2024 9:52 AM EST) Anatomical Region Laterality Modality Head, Neck Radiographic Tanya ging 08/14/2024 9:52 AM EST Narrative 08/15/2024 4:55 PM EST ? [facility] ?[address] ?[place] [address] ? Fluoroscopy Report ? Signed ? Patient: JennifferCeleste duarte ?MR#: [id number] ?? 4 ? : 1945 ?Acct:[id number] ? Age/Sex: 78 / F ?ADM Date: 08/14/24 ? Loc: HO.XRAY ? Attending Dr: Julia Li MD ? Ordering Physician: Juila Li MD ?? Date of Service: 08/14/24 ?? Procedure(s): FL barium swallow with air ?? Accession Number(s): [id number] ? cc: Joanna,Eddie GILMORE; Julia Li MD [...] signed by Devon Delvalle in OV> ? 08/15/242 ?<Electronically signed by Sagar Shore MD in OV> ? 08/15/24 1654 ? DD/ 0952 ? TD/TT: 08/14/24 1020 ? Brim Cutter: ? Procedure Note Donotuseinterpreter, Image - 08/15/2024 [place] [address] Fluoroscopy Report Signed Patient: Ventura Abad#: [id number] 4 : 7Acct:[id number] Age/Sex: 78 / FADM Date: 08/14/24 Loc: ZAHIDA Attending Dr: Julia Li MD Ordering Physician: Julia Li MD Date of Service: 08/14/24 Procedure(s): FL barium swallow with air Accession Number(s): [id number] cc: Eddie Marshall MD; Julia Li MD [...] Shore MD 08/15/2024 04:52 PM EST RP Dictated By: Devon Delvalle Signed By: <Electronically signed by Devon Delvalle in OV> 08/15/24 1652 <Electronically signed by Sagar Shore MD in OV> 08/15/24 1654 DD/ 0952 TD/TT: 08/14/24 1020 Brim Cutter: [facility] External Provider IMG FLU OROSCOPY PROCEDURES Final Result * Immunofixation (ALEXANDER), Urine (08/14/2024 9:41 AM EST) ALEXANDER Interpretation SEE NOTE H [facility] Comment:Normal pattern. No m onoclonal proteins detected.The supplier of the testing reagents for this assayhas changed. Detection of small monoclonal proteins mayvary by test system.THIS TEST WAS PERFORMED AT:[facility] [place] [id number] PAYNE MD 08/14/2024 9:41 AM EST 08/14/2024 10:39 AM EST us Generic External Data Provider LAB URINE ORDERAB LES Final Result Performing Organization Address [facility]/ZIP Co de Phone Number [facility] [address] [place] [phone] * (ABNORMAL) Protein, Total and Protein??Electrophoresis (08/14/2024 9:37 AM EST) Prot Elec - Total Protein 6.7 6.1 - 8.1 g/dL [facility] Prot Elec - Albumin 3.2(A) 3.8 - 4.8 g/dL [facility] Prot Elec - Alpha1 0.4(A) 0.2 - 0.3 g/dL [facility] Prot Elec - Alpha2 1.1(A) 0.5 - 0.9 g/dL [facility] Prot Elec - Beta 1 0.5 0.4 - 0.6 g/dL [facility] Prot Elec - Beta 2 0.5 0.2 - 0.5 g/dL [facility] Prot Elec - Gamma 1.0 0.8 - 1.7 g/dL [facility] PES - Abn Protein Band 1 [facility] PES-Abn Protein Band 2 [facility] PES-Abn Protein Band 3 [facility] Prot Elec - Interpretation SEE NOTE [facility] Comment:Evaluation is consis tent with an acute inflammatorypattern.THIS TEST WAS PERFORMED AT:[facility] [place] [id number] PAYNE MD 08/14/2024 9:37 AM EST 08/14/2024 9:41 AM EST us Generic External Data Provider LAB BLOOD ORDERAB LES Final Result Performing Organization Address City/[facility]/ZIP Co de Phone Number [facility] [address] [place] [phone] * (ABNORMAL) Phosphate (As Phosphorus) (08/14/2024 9:37 AM EST) Phosphorus 2.6(L) 2.7 - 4.5 mg/dL [facility] 08/14/2024 9:37 AM EST 08/14/2024 9:41 AM EST [employer] External Data Provider LAB BLOOD ORDERAB LES Final Result Performing Organization Address [facility] Co de Phone Number [facility] [address] [place] [phone] * (ABNORMAL) POCT HGB A1C (08/02/2024 2:14 PM EST) Hemoglobin A1C 6.2(A) 4.0 - 6.0 % QC Media Lot # [id number] Lot# Expiration Date Blood 08/02/2024 2:14 PM EST Result [facility] Latanya Hoover MD POINT OF CARE TEST [...] EST Narrative 07/16/2024 7:07 PM EST ? [facility] ?[address] ?[place] [address] ?XRay Report ? Signed ? Patient: Jenniffer,Celeste ?MR#: [id number] ?? 4 ? : 1945 ?Acct:[id number] ? Age/Sex: 78 / F ?ADM Date: 07/16/24 ? Loc: HO.ED ? Attending Dr: ? Ordering Physician: Rhea Ken ?? Date of Service: 07/16/24 ?? Procedure(s): XR KUB ?? Accession Number(s): [id number] ? cc: Rhea Ken; Name,Eddie GILMORE ? [...] ? DD/ 06 ? TD/TT: 07/16/241906 ? Brim Cutter: ? Procedure Note Sahil Tellez - 07/16/2024 [place] [address] XRay Report Signed Patient: Celeste AbadMR#: [id number] 4 : 1945cct:[id number] Age/Sex: 78 / FADM Date: 07/16/24 Loc: HO.ED Attending Dr: Ordering Physician: Rhea Ken Date of Service: 07/16/24 Procedure(s): XR KUB Accession Number(s): [id number] cc: Rhea Ken; Name,Eddie GILMORE CLINICAL HISTORY: [...] in OV> 07/16/241906 DD/ 06 TD/TT: 07/16/241906 Brim Cutter: [facility] External Provider IMG XR PROCEDURES Final Result * SARS-CoV-2 RNA, Influenza A/B, and RSV RNA, Ql NAAT (07/16/2024 7:06 PM EST) Influenza A PCR NEGATIVE Negative [facility] Influenza B PCR NEGATIVE Negative [facility] Resp Syncy Virus RNA Qual PCR NEGATIVE Negative [facility] SARS COV2 PCR NEGATIVE Negative [facility] Comment:All test results mus t [...] use by authorized laboratories.Testing performed on the [employer] Gene[employer]pert utilizingreal-time RT-PCR.All SARS CoV2 and positive influenza A/B results arereported to [facility]. 07/16/2024 7:06 PM EST 07/16/2024 7:11 PM EST Generic External Data Provider LAB MICROBIOLOGY - GENERAL ORDERABLES Final Result [facility] [address] [place] [address] [phone] * (ABNORMAL) CBC auto differential (07/16/2024 7:06 PM EST) White Blood Count 10.1 4.8 - 10.8 X10*3/uL [facility] Red Blood Count 4.68 4.20 - 5.50 X10*6/uL [facility] Hemoglobin 13.3 12.0 - 16.0 g/dl [facility] Hematocrit 40.7 37.0 - 47.0 % [facility] Mean Corpuscular Volume 87.0 80.0 - 98.0 fL [facility] Mean Corpuscular Hemoglobin 28.4 27.0 - 33.0 pg [facility] Mean Corpuscular HGB Conc 32.7 31.0 - 35.0 g/dl [facility] Red Cell Distribution Width 15.0 11.0 - 16.0 % [facility] Platelet Count 272 160 - 400 X10*3/uL [facility] Mean Platelet Volume 9.9 9.4 - 12.3 fL [facility] Neutrophils Percent Auto 74.5(H) 45 - 73 % [facility] Imm Gran Pct Auto 0.3 0.0 - 0.4 % [facility] Lymphocytes Percent Auto 16.3(L) 20 - 40 % [facility] Monocytes Percent Auto 8.0 2 - 11 % [facility] Eosinophils Percent Auto 0.7 0 - 4 % [facility] Basophils Percent Auto 0.2 0 - 2 % [facility] NRBC Pct Auto 0.0 0.0 - 0.2 /100WBC [facility] Neutrophils Absolute Auto 7.6 2.0 - 8.3 x10*3/uL [facility] Imm Gran Abs Auto 0.03 0.00 - 0.03 X10*3/uL [facility] Lymphocytes Absolute Auto 1.7 1.2 - 4.9 X10*3/uL [facility] Monocytes Absolute Auto 0.8 0.1 - 1.2 X10*3/uL [facility] Eosinophils Absolute Auto 0.1 0.0 - 0.4 X10*3/uL [facility] Basophils Absolute Auto 0.0 0.0 - 0.2 X10*3/uL [facility] NRBC Abs Auto 0.000 0.0 - 0.012 X10*3/uL [facility] 07/16/2024 7:06 PM EST 07/16/2024 7:11 PM EST us Generic External Data Provider LAB BLOOD ORDERAB LES Final Result Performing Organization Address [facility] Co de Phone Number [facility] [address] [place] [phone] * Magnesium (07/16/2024 7:06 PM EST) Magnesium 2.2 1.6 - 2.6 mg/dL [facility] 07/16/2024 7:06 PM EST 07/16/2024 7:11 PM EST us Generic External Data Provider LAB BLOOD ORDERAB LES Final Result Performing Organization Address [facility] Co de Phone Number [facility] [address] [place] [phone] * Lipase (07/16/2024 7:06 PM EST) Lipase 8 8 - 78 U/L [facility] 07/16/2024 7:06 PM EST 07/16/2024 7:11 PM EST us Generic External Data Provider LAB BLOOD ORDERAB LES Final Result Performing Organization Address [facility] Co de Phone Number [facility] [address] [place] [phone] * (ABNORMAL) Hepatic Function Panel (07/16/2024 7:06 PM EST) Bilirubin, Total 0.4 0.0 - 1.0 mg/dL [facility] Bilirubin, Direct 0.2 0.0 - 0.5 mg/dL [facility] Aspartate Amino Transferase 37(H) 5 - 31 U/L [facility] Alanine Aminotransferase 27 0 - 31 U/L [facility] Total Protein 7.5 6.5 - 8.0 g/dL [facility] Albumin Level 3.9 3.5 - 5.0 g/dL [facility] Alkaline Phosphatase 136(H) 39 - 117 U/L [facility] 07/16/2024 7:06 PM EST 07/16/2024 7:11 PM EST us Generic External Data Provider LAB BLOOD ORDERAB LES Final Result [facility] [address] [place] [phone] * (ABNORMAL) Basic Metabolic Panel (07/16/2024 7:06 PM EST) Sodium 139 135 - 145 mmol/L [facility] Potassium 4.3 3.3 - 5.1 mmol/L [facility] Chloride 102 96 - 108 mmol/L [facility] Carbon Dioxide 25 22 - 29 mmol/L [facility] Anion Gap 16 12 - 20 [facility] Urea Nitrogen (BUN) 18(H) 9 - 16 mg/dL [facility] Creatinine, Serum 0.73 0.5 - 1.4 mg/dL [facility] Creatinine Clr Calc Pharmacy 58.3 [facility] Comment:Provided height and weight: 157.48 cm,68.039 kg.eGFR (calculated from the MDRD study equation) and eCrCl(calculated from the Cockcroft-Gault equation) are based ondifferent parameters and may not yield comparable results.If eCrCl result is absurd, please check patient'sheight/weight. Estimated Glomerular Filt Rate >60 [facility] Comment:Chronic Kidney Disea se: Estimated GFR < 60 mL/min/1.42t8Sghobg Kidney Disease: Estimated GFR < 15 mL/min/1.73m2 Glucose 124(H) 60 - 115 mg/dL [facility] Calcium 9.1 8.4 - 10.2 mg/dL [facility] 07/16/2024 7:06 PM EST 07/16/2024 7:11 PM EST us Generic External Data Provider LAB BLOOD ORDERAB LES Final Result [facility] [address], [place] [phone] * POCT ADRIAN-14 Urine Drug Screen (07/16/2024 1:49 PM EST) Oxycodone Screen, Urine Positive Urine Urine specimen obtained by clean catch procedure / Unknown 07/16/2024 1:49 PM EST Mckenzie Trent INTERNATIONAL TRADE ANALYST POINT OF CARE TEST ENTER/EDIT ORDERABLES Final Result * Referral to Orthopaedic Surgery (06/03/2024) Eddie Marshall MD OUTPATIENT REFERRAL ORDERABLES F inal Result * (ABNORMAL) Lipid Panel, Standard (01/16/2024 9:40 AM EDT) Triglycerides 199(H) <150 mg/dL [facility] Comment:Desirable Triglyceri de: less than 150 mg/dLBorderline High Triglyceride 150-199 mg/dLHigh Triglyceride: 200-499 mg/dLVery High Triglyceride: greater than or equal to 5OO mg/dL Cholesterol 150 <200 mg/dL [facility] Comment:Desirable Cholestero l: less than 200 mg/dLBorderline High Cholesterol: 200-239 mg/dLHigh Cholesterol: greater than 239 mg/dL LDL Cholesterol Calculated 63 <100 mg/dL [facility] Comment:Desirable LDL: less than 100 mg/dLNear Optimal/Above Optimal LDL: 110- 129 mg/dLBorderline High LDL: 130-159 mg/dLHigh LDL: 160-189 mg/dLVery High LDL: greater than or equal to 190 mg/dL HDL Cholesterol 48 >40 mg/dL [facility] Comment:Desirable HDL: great er than 40 mg/dL Note: This HDL assay may give artificially low results in patients with liver disease. Blood Venous blood specimen / Unknown 01/16/2024 9:40 AM EDT 01/16/2024 11:20 AM EDT us Eddie Marshall MD LAB BLOOD ORDERABLES Final Resul t Performing Organization Address [facility] Co de Phone Number [facility] [address] [place] [address] [phone] * Albumin, Random Urine W/Creatinine (01/16/2024 9:35 AM EDT) Creatinine, Urine 27.62 mg/dL [facility] Microalbumin Urine <5.0 mg/L [facility] Microalbum Creatinine Ratio Ur TNP <30 ug/mg cr [facility] Comment:Unable to calculate albumin/creatinine ratio due to lowmicroalbumin or creatinine result. Urine (Urine, Random) 01/16/2024 9:35 AM EDT 01/16/2024 11:12 AM EDT us Eddie Marshall MD LAB URINE ORDERABLES Final Resul t Performing Organization Address [facility] Co de Phone Number [facility] [address] [place] [phone] * Diabetes Eye Exam (05/16/2023) Pathologist [facility] Eye Exam Normal Normal Result Gena Marshall MD HEALTH MAINTENANCE Final Result * (ABNORMAL) Hepatitis Panel, General (11/18/2022 2:07 PM EDT) Pathologist [facility] Hepatitis A Antibody Total REACTIVE( A) NON-REACT NAHID [facility] [employer] [place] [employer] [employer] Comment: For additional information, please refer to http://education.[employer]/faq/QAR907 (This link is being provided for informational/ educational purposes only.) Hepatitis B Surface Antibody QL NON-REACT NAHID NON-REACT NAHID [facility] [employer] [place] [employer] [employer] Hepatitis B Surface Ag NON-REACT NAHID NON-REACT NAHID [facility] Core Antibody Total NON-REACT NAHID NON-REACT NAHID [facility] [employer] [place] [employer] [employer] Hepatitis C Antibody NON-REACT NAHID NON-REACT NAHID [facility] Index 0.07 <1.00 [facility] Comment: HCV antibody was non-reactive. There is no laboratory evidence of HCV infection. In most cases, no further action is required. However, if recent HCV exposure is suspected, a test for HCV RNA (test code 62790) is suggested. For additional information please refer to http://education.[facility]ato[employer] Nutrition [facility] Cardiometabol[employer]/faq/QGX76w4 (This link is being provided for informational/ educational purposes only.) 11/18/2022 2:07 PM EDT 11/18/2022 2:09 PM EDT Narrative [facility] - 11/19/2022 6:51 AM EDT COLLECTION KIT GIVEN TO PATIENT. PATIENT ADVISED TO RETURN. us Mckenzie Pillai INTERNATIONAL TRADE ANALYST LAB BLOOD ORDERABLES Final Res ult [facility] [address], [place] [address] [facility] [place] [facility] [address] [place] [address] from Last 3 Months or Most Recently Relevant to Health Maintenance Insurance WILBUR MANZANO NDO Care Teams Entertainment Centre Manager Relationship Specialty Start Date End Date Name, MD Eddie [address] [place] [address] PCP - General Family Medicine 09/16/15 [facility] 07/01/24
--- OUTSIDE RECORDS SUMMARY | 2024-08-27 15:58 | XMS_ITS | Encounter Summary ---
Author Organization [facility] [employer] Address [address] [place] [address] 7t [place] [address] Care Team Providers Care Reed Dipper Name Role Phone NameEddie MD Primary Care Provider [phone] Encounter Details Date Type Department Care Team ([facility] Contact Info) Description 11/18/2022 Abstract [facility] [address] [place] [address] [phone] NameEddie MD [address] [place] [address] [phone] Social History Tobacco Use Types Packs/Day Years [...] Upcoming Encounters Date Type Department Care Team ([facility] Contact Info) Description 09/10/2024 9:45 AM EDT Office Visit [facility] [address] [place] [address] 10/29/2024 2:30 PM EDT Office Visit [address] [phone] Eddie Marshall, MD [address] [place] [address] documented as of this encounter Visit Diagnoses Not on filedocumented in this encounter Care Teams Reed Dipper Relationship Specialty Start Date End Date Name, MD Eddie [address] [place] [address] PCP - General Family Medicine 09/16/15 [facility] 07/01/24 documented as of this encounter
--- OUTSIDE RECORDS SUMMARY | 2024-08-27 15:58 | XMS_ITS | Encounter Summary ---
Author Organization [employer] Address [address] [place] [address] [place] [address] Care Team Providers Care Associate Oracle Retail Name Role Phone Name, Eddie GILMORE Primary Care Provider [phone] Reason for Visit * Reason Onset Date Comments Hospital Follow-up 11/10/2022 Encounter Details Date Type Department Care Team (Late st Contact Info) Description 11/10/2022 Refill [facility] [address] [place], [place] [phone] Name, MD Eddie [address] [place] [address] Social History Tobacco Use Types Packs/Day Years [...] Jackman Sent: 11/21/2022 5:23 PM EDT To: [facility] Team Nurses Hi team! Sent this pt to the ED over the weekend for Hgb 7. Got admitted and looks like recently discharged. Can you please outreach her for status check and sched HDF w/ Name? Thank you!! * Telephone Encounter - Suzette Singh RN - 11/22/2022 11:10 AM EDT T/C to [phone] to schedule HDF apt. No answer. LVM to call back on [phone]. ----- Message from Amber Roger RN sent at 11/22/2022 9:06 AM EDT ----- ----- Message ----- From: DENIS Jackman Sent: 11/21/2022 5:23 PM EDT To: [facility] Team Nurses Nd team! Sent this pt to the ED over the weekend for Hgb 7. Got admitted and looks like recently discharged. Can you please outreach her for status check and sched HDF w/ DrRod Name? Thank you!! documented in this encounter Plan of Treatment Upcoming Encounters Date Type Department Care Team (Late st Contact Info) Description 09/10/2024 9:45 AM EDT Office Visit [facility] [address] [place] [address] 10/29/2024 2:30 PM EDT Office Visit [facility] [address] [place] [phone] Name, MD Eddie [address] [place] [address] documented as of this encounter Visit Diagnoses Not on filedocumented in this encounter Care Teams Associate Oracle Retail Relationship Specialty Start Date End Date NameEddie MD [address] [place] [address] PCP - General Family Medicine 09/16/15 [facility] 07/01/24 documented as of this encounter
--- OUTSIDE RECORDS SUMMARY | 2024-08-27 15:59 | XMS_ITS | Encounter Summary ---
Author Organization [employer] Address [address] [place] [address] 7 [place] [address] Care Team Providers Care Hyperion Developer Name Role Phone Name, Eddie GILMORE Primary Care Provider [phone] Reason for Visit * Reason Onset Date Comments Med Refill 08/09/2024 Encounter Details Date Type Department Care Team ([facility] st Contact Info) Description 08/09/2024 Refill [facility] [address] [place], [place] [phone] Name, MD Eddie [address] [place], [place] [phone] Chronic pain syndrome Social History Tobacco Use [...] 5-325 MG tablet To be sent to: [facility] Pharm[facility] documented in this encounter Plan of Treatment Upcoming Encounters Date Type Department Care Team (Late st Contact Info) Description 09/10/2024 9:45 AM EDT Office Visit [facility] [address] [place] [address] 10/29/2024 2:30 PM EDT Office Visit [facility] [address] [place] [address] NameEddie MD [address] [place] [address] documented as of this encounter Visit Diagnoses Diagnosis Chronic pain syndrome documented in this encounter Additional Health Concerns Assessment Noted Time PHQ-9 Depression Total Score: 9 05/10/20 24 11:56 AM EST documented as of this encounter Care Teams Hyperion Developer Relationship Specialty Start Date End Date NameEddie MD [address] [place] [address] PCP - General Family Medicine 09/16/15 [facility] 07/01/24 documented as of this encounter
--- OUTSIDE RECORDS SUMMARY | 2024-08-27 15:59 | XMS_ITS | Encounter Summary ---
Author Organization [employer] Address [address] [facility] 7t [place] [address] Care Team Providers Care Steel Division Supervisor Name Role Phone Name, Eddie GILMORE Primary Care Provider [phone] Reason for Visit * Reason Onset Date Comments september recalls 08/09/2024 Encounter Details Date Type Department Care Team ([facility] st Contact Info) Description 08/09/2024 Telephone [facility] MED[facility]INE [address] [place], [place] [phone] Sophie Marie [place] september recalls Social History [...] 9:45 AM EDT Office Visit [facility] [address] [place] [address] 10/29/2024 2:30 PM EDT Office Visit [address] [address] NameEddie MD [address] [place] [address] documented as of this encounter Visit Diagnoses Not on filedocumented in this encounter Additional Health Concerns Assessment Noted Time PHQ-9 Depression Total Score: 9 05/10/20 24 11:56 AM EST documented as of this encounter Care Teams Steel Division Supervisor Relationship Specialty Start Date End Date Eddie Marshall MD [address] [place] [address] PCP - General Family Medicine 09/16/15 [facility] 07/01/24 documented as of this encounter
--- OUTSIDE RECORDS SUMMARY | 2024-08-27 15:59 | XMS_ITS | Encounter Summary ---
Author Organization [employer] Address [address] [place] [address] 7t [place] [address] Care Team Providers Care International Account Executive Name Role Phone Name, Eddie GILMORE Primary Care Provider [phone] Encounter Details Date Type Department Care Team [...] your housing situation today? I have abad brdiges 02/05/[address] you li [...] 9:45 AM EDT Office Visit [facility] [address] [place] [address] 10/29/2024 2:30 PM EDT Office Visit [facility] [address] [place] [address] Name, MD Eddie [address] [place] [address] documented as of this encounter Procedures Procedure [...] EST Narrative 08/15/2024 4:55 PM EST ? [facility] ?[address] ?[place] [address] ? Fluoroscopy Report ? Signed ? Patient: Jenniffer,Celeste ?MR#: [id number] ?? 4 ? : 1945 ?Acct:[id number] ? Age/Sex: 78 / F ?ADM Date: 02/26/25 ? Loc: HO.XRAY ? Attending Dr: Julia Li MD ? Ordering Physician: Julia Li MD ?? Date of Service: 08/14/24 ?? Procedure(s): FL barium swallow with air ?? Accession Number(s): [id number] ? cc: Joanna,Eddie GILMORE; Julia Li MD [...] DD/ 0952 ? TD/TT: 08/14/24 1020 ? Window Treatment Installer: ? Procedure Note Geoff, Sahil - 08/15/2024 [place] [address] Fluoroscopy Report Signed Patient: Celeste Abad#: [id number] 4 : 1945cct:[id number] Age/Sex: 78 / FADM Date: 08/14/24 Loc: HO.XRAY Attending Dr: Julia Li MD Ordering Physician: Julia Li MD Date of Service: 08/14/24 Procedure(s): FL barium swallow with air Accession Number(s): [id number] cc: Eddie Marshall MD; Julia Li MD [...] by: Sagar Shore MD 08/15/2024 04:52 PM [facility] Dictated By: Devon Delvalle Signed By: <Electronically signed by Devon Delvalle in OV> 08/15/24 1652 <Electronically signed by Sagar Shore MD in OV> 08/15/24 1654 DD/ 0952 TD/TT: 08/14/24 1020 Window Treatment Installer: [facility] External Provider IMG FLU OROSCOPY PROCEDURES Final Result * Immunofixation (ALEXANDER), Urine (08/14/2024 9:41 AM EST) Pathologist [facility] ALEXANDER Interpretation SEE NOTE H [facility] Comment:Normal pattern. No m onoclonal proteins detected.The supplier of the testing reagents for this assayhas changed. Detection of small monoclonal proteins mayvary by test system.THIS TEST WAS PERFORMED AT:[facility] [place] [id number] PAYNE MD 08/14/2024 9:41 AM EST 08/14/2024 10:39 AM EST Generic External Data Provider LAB URINE ORDERAB LES Final Result [facility] [address] [place] [address] [phone] * (ABNORMAL) Protein, Total and Protein??Electrophoresis (08/14/2024 9:37 AM EST) Prot Elec - Total Protein 6.7 6.1 - 8.1 g/dL [facility] Prot Elec - Albumin 3.2(A) 3.8 - 4.8 g/dL [facility] Prot Elec - Alpha1 0.4(A) 0.2 - 0.3 g/dL [facility] Prot Elec - Alpha2 1.1(A) 0.5 - 0.9 g/dL [facility] Prot Elec - Beta 1 0.5 0.4 - 0.6 g/dL [facility] Prot Elec - Beta 2 0.5 0.2 - 0.5 g/dL [facility] Prot Elec - Gamma 1.0 0.8 - 1.7 g/dL [facility] PES - Abn Protein Band 1 TNP [facility] PES-Abn Protein Band 2 TNP [facility] PES-Abn Protein Band 3 TNP [facility] Prot Elec - Interpretation SEE NOTE [facility] Comment:Evaluation is consis tent with an acute inflammatorypattern.THIS TEST WAS PERFORMED AT:[facility] [place] [phone] PAYNE MD 08/14/2024 9:37 AM EST 08/14/2024 9:41 AM EST Generic External Data Provider LAB BLOOD ORDERAB LES Final Result Performing Organization Address [facility]/ZIP Co de Phone Number [facility] [address] [place] [phone] * (ABNORMAL) Phosphate (As Phosphorus) (08/14/2024 9:37 AM EST) Phosphorus 2.6(L) 2.7 - 4.5 mg/dL [facility] 08/14/2024 9:37 AM EST 08/14/2024 9:41 AM EST Generic External Data Provider LAB BLOOD ORDERAB LES Final Result Performing Organization Address [facility] Co de Phone Number [facility] [address] [place] [phone] documented in this encounter Visit Diagnoses Not on filedocumented in this encounter Additional Health Concerns Assessment Noted Time PHQ-9 Depression Total Score: 9 05/10/20 24 11:56 AM EST documented as of this encounter Care Teams International Account Executive Relationship Specialty Start Date End Date Name, MD Eddie [address] [place] [address] PCP - General Family Medicine [facility] documented as of this encounter
--- OUTSIDE RECORDS SUMMARY | 2024-08-27 15:59 | XMS_ITS | Encounter Summary ---
Author Organization [employer] Address [address] [place] [address] 7 [place] [address] Care Team Providers Care Sewer Name Role Phone Name, Eddie GILMORE Primary Care Provider [phone] Reason for Visit * Reason Onset Date Comments Appointment Request 08/13/2024 Encounter Details Date Type Department Care Team ([facility] st Contact Info) Description 08/13/2024 Telephone [facility] MEDICINE [address] [place], [place] [phone] Name, MD Eddie [address] [place] [address] Appointment Request Social History Tobacco Use Types [...] r/s Apt from 08/13/24. Contact pt at [phone] documented in this encounter Plan of Treatment Upcoming Encounters Date Type Department Care Team (Late st Contact Info) Description 09/10/2024 9:45 AM EDT Office Visit [facility] [place] [address] 10/29/2024 2:30 PM EDT Office Visit [facility] [address] [place] [address] Name, [place] [address] documented as of this encounter Visit Diagnoses Not on filedocumented in this encounter Additional Health Concerns Assessment Noted Time PHQ-9 Depression Total Score: 9 05/10/20 24 11:56 AM EST documented as of this encounter Care Teams Sewer Relationship Specialty Start Date End Date Name, MD Eddie [address] [place] [address] PCP - General Family Medicine 09/16/15 [facility] 07/01/24 documented as of this encounter
--- OUTSIDE RECORDS SUMMARY | 2024-08-27 15:59 | XMS_ITS | Encounter Summary ---
Author Organization [employer] Address [address] [place] [address] 7t [place] [address] Care Team Providers Care Bonding Machine Tender Name Role Phone Name, Eddie GILMORE Primary Care Provider [phone] Encounter Details Date Type Department Care Team (Late st Contact Info) Description 08/26/2024 Orders Only [facility] External Provider, [facility] Social History Tobacco Use Types Packs/Day Years [...] Description 09/10/2024 9:45 AM EDT Office Visit [facility] [address] [place] [address] 10/29/2024 2:30 PM EDT Office Visit [facility] [address] [place] [phone] Name, MD Eddie [address] [place] [address] documented as of this encounter Procedures Procedure Name Priority Date/Time Associated Diagnosis Comments CT CHEST WO CONTRAST Routine 08/27/2024 2:12 PM EDT documented in this encounter Results * CT Chest w/o Contrast (08/27/2024 2:12 PM EDT) Anatomical Region Laterality Modality Body, Chest Computed Tomogra phy 08/27/2024 2:12 PM EDT Narrative 08/27/2024 2:14 PM EDT ? [facility] ?[address] ?[place] [address] ? CT Scan Report ? Signed ? Patient: Jenniffer,Celeste ?MR#: [id number] ?? 4 ? : 1945 ?Acct:[id number] ? Age/Sex: 78 / F ?ADM Date: 03/10/25 ? Loc: HO.CT ? Attending Dr: Maria Esther Blum NP ? Ordering Physician: Maria Esther Blum NP ?? Date of Service: 08/26/24 ?? Procedure(s): CT chest wo IV con ?? Accession Number(s): [id number] ? cc: Name,Eddie GILMORE; Maria Esther Blum NP ? Report Number: ?? [id number]: Total DLP = ??208.00 mGy-cm ? CLINICAL [...] DD/ 1412 ? TD/TT: 08/27/24 1412 ? Hr Clerk: ? Procedure Note Sahil Tellez - 08/27/[address] [place] [address] [address] Scan Report Signed Patient: Vent[place] Abad#: [id number] 4 : 7Acct:[id number] Age/Sex: 78 / FADM Date: 08/26/24 Loc: HO.CT Attending Dr: Maria Esther Blum PURCHASING COORDINATOR Ordering Physician: Maria Esther Blum NP Date of Service: 08/26/24 Procedure(s): CT chest wo IV con Accession Number(s): [id number] cc: Eddie Marshall MD; Maria Esther Blum NP Report Number: [id number]: Total DLP = 208.00 mGy-cm CLINICAL HISTORY: [...] OV> 08/27/24 1413 DD/ 1412 TD/TT: 08/27/24 141 Hr Clerk: [facility] External Provider IMG CT PROCEDURES Final Result documented in this encounter Visit Diagnoses Not on filedocumented in this encounter Additional Health Concerns Assessment Noted Time PHQ-9 Depression Total Score: 9 05/10/20 24 11:56 AM EST documented as of this encounter Care Teams Bonding Machine Tender Relationship Specialty Start Date End Date Name, MD Eddie [address] [place] [address] PCP - General Family Medicine 09/16/15 [facility] 07/01/24 documented as of this encounter
--- OUTSIDE RECORDS SUMMARY | 2024-08-27 15:59 | XMS_ITS | Encounter Summary ---
Author Organization [employer] Address [address] [place] [address] 7 [place] [address] Care Team Providers Care Diesel Mechanic Farm Name Role Phone Name, Eddie GILMORE Primary Care Provider [phone] Reason for Visit * Reason Comments Med Refill Encounter Details Date Type Department Care Team (Late st Contact Info) Description 06/18/2023 Refill [facility] [address] [place], [place] [phone] Name, MD Eddie [address] [place], [place] [phone] Chronic pain syndrome Social History Tobacco Use [...] Description 09/10/2024 9:45 AM EDT Office Visit [facility] [address] [place] [address] 10/29/2024 2:30 PM EDT Office Visit [address] [address] Name, MD Eddie [address] [place] [address] documented as of this encounter Visit Diagnoses Diagnosis Chronic pain syndrome documented in this encounter Additional Health Concerns Assessment Noted Time PHQ-9 Depression Total Score: 10 023 1:16 PM EDT documented as of this encounter Care Teams Diesel Mechanic Farm Relationship Specialty Start Date End Date NameEddie MD [address] [place] [phone] PCP - General Family Medicine [facility] documented as of this encounter
--- OUTSIDE RECORDS SUMMARY | 2024-08-27 15:59 | XMS_ITS | Encounter Summary ---
Author Organization [employer] Address [address] [place] [address] 7 [place] [address] Care Team Providers Care Career Agent Name Role Phone Name, Eddie GILMORE Primary Care Provider [phone] Reason for Visit * Reason Comments Med Refill Encounter Details Date Type Department Care Team (Late st Contact Info) Description 08/19/2024 Refill [facility]INE 230 [place], [place] [phone] Name, MD Eddie 230 [place] [address] Social History Tobacco Use Types Packs/Day Years [...] Description 09/10/2024 9:45 AM EDT Office Visit [address] [address] 10/29/2024 2:30 PM EDT Office Visit [address] [address] NameEddie MD [address] [place] [address] documented as of this encounter Visit Diagnoses Not on filedocumented in this encounter Additional Health Concerns Assessment Noted Time PHQ-9 Depression Total Score: 9 05/10/20 24 11:56 AM EST documented as of this encounter Care Teams Career Agent Relationship Specialty Start Date End Date NameEddie MD [address] [place] [address] PCP - General Family Medicine 09/16/15 [place] SEN 07/01/24 documented as of this encounter
--- OUTSIDE RECORDS SUMMARY | 2024-08-27 15:59 | XMS_ITS | Encounter Summary ---
Author Organization [facility] [employer] Address [address] [place] [address] Care Team Providers Care Topology Professor Name Role Phone NameEddie MD Primary Care Provider [phone] Reason for Visit * Reason Comments Med Refill Encounter Details Date Type Department Care Team (Late Contact Info) Description 02/26/2023 Refill [facility] MEDICINE [address] [place] [address] [phone] Eddie Marshall MD [address] [place] [address] [phone] Chronic pain syndrome Social History Tobacco Use [...] Description 09/10/2024 9:45 AM EDT Office Visit [facility] [address] [place] [address] [phone] 10/29/2024 2:30 PM EDT Office Visit [address] [phone] Eddie Marshall MD 230 [place] [address] documented as of this encounter Visit Diagnoses Diagnosis Chronic pain syndrome documented in this encounter Additional Health Concerns Assessment Noted Time PHQ-9 Depression Total Score: 10 023 1:16 PM EDT documented as of this encounter Care Teams Topology Professor Relationship Specialty Start Date End Date Name, MD Eddie 230 [place] [address] PCP - General Family Medicine 09/16/15 [place] A 07/01/24 documented as of this encounter
--- OUTSIDE RECORDS SUMMARY | 2024-08-27 15:59 | XMS_ITS | Encounter Summary ---
Author Organization [employer] Address [address] [facility] 7t [place] [address] Care Team Providers Care Geotechnical Department Manager Name Role Phone Name, Eddie GILMORE [...] Description 09/10/2024 9:45 AM EDT Office Visit [facility] MED[facility]INE [address] [place] [address] 10/29/2024 2:30 PM EDT Office Visit [facility] [address] [place] [address] Name, MD Eddie [address] [place] [address] documented as of this encounter Visit Diagnoses Not on filedocumented in this encounter Additional Health Concerns Assessment Noted Time PHQ-9 Depression Total Score: 9 05/10/20 24 11:56 AM EST documented as of this encounter Care Teams Geotechnical Department Manager Relationship Specialty Start Date End Date NameEddie MD [address] [place] [address] PCP - General Family Medicine 09/16/15 [place] [facility] 07/01/24 documented as of this encounter
--- OUTSIDE RECORDS SUMMARY | 2024-08-27 15:59 | XMS_ITS | Encounter Summary ---
Author Organization [employer] Address [address] [place] [address] 7 [place] [address] Care Team Providers Care Career Development Coordinator Name Role Phone Name, Eddie GILMORE Primary Care Provider [phone] Reason for Visit * Reason Onset Date Comments ER Follow-up 07/30/2024 Encounter Details Date Type Department Care Team ([facility] st Contact Info) Description 07/30/2024 Telephone [facility] MEDICINE 230 [place], [place] [phone] Name, MD Eddie 230 [place] [address] ER Follow-up Social History Tobacco Use Types [...] she is not able to come to [facility] due to need to arrange transportation. Pt states she has been diagnosed with level five osteoporosisand emphysema by Dr. Velasquez in Endocrinology at [address] [place] [address] [address] Rowland at[address] [place] [address]. Pt states both doctors are associated with [facility]. Advised RN will attempt to obtain notes [...] ED visit on : Date: 07/29/24 Hospital: [facility] Seen for: Nose bleed Symptomatic No *if yes message should go to Triage Patient advised will forward to team nurse for follow up Contact pt at [phone] documented in this encounter Plan of Treatment Upcoming Encounters Date Type Department Care Team (Late st Contact Info) Description 09/10/2024 9:45 AM EDT Office Visit [facility] MEDICINE [address] [place] [address] 10/29/2024 2:30 PM EDT Office Visit [address] [address] Name, MD Eddie [address] [place] [address] documented as of this encounter Visit Diagnoses Not on filedocumented in this encounter Additional Health Concerns Assessment Noted Time PHQ-9 Depression Total Score: 9 05/10/20 24 11:56 AM EST documented as of this encounter Care Teams Career Development Coordinator Relationship Specialty Start Date End Date Name, MD Eddie [address] [place] [address] PCP - General Family Medicine 09/16/15 Jer[place] BURGOSA 07/01/24 documented as of this encounter
--- OUTSIDE RECORDS SUMMARY | 2024-08-27 15:59 | XMS_ITS | Encounter Summary ---
Author Organization [employer] Address [address] [place] [address] 7t [place] [address] Care Team Providers Care Business Objects Architect Name Role Phone Name, Eddie GILMORE Primary Care Provider [phone] Encounter Details Date Type Department Care Team (Late st Contact Info) Description 08/27/2024 Orders Only GENERIC EXTERNAL DATA [...] 9:45 AM EDT Office Visit [facility] MEDICINE [address] [place] [address] 10/29/2024 2:30 PM EDT Office Visit [facility]INE [address] [place] [address] Name, MD Eddie [address] [place] [address] documented as of this encounter Procedures Procedure Name Priority Date/Time Associated Diagnosis Comments IRON AND TOTAL IRON BINDING CAPACITY Routine 08/27/2024 1:25 PM EDT CBC Routine 08/27/2024 1:25 PM EDT FERRITIN Routine 08/27/2024 1:25 PM EDT documented in this encounter Results * Ferritin (08/27/2024 1:25 PM EDT) Ferritin 35 10 - 250 ng/mL [facility] 08/27/2024 1:25 PM EDT 08/27/2024 1:25 PM EDT us Generic External Data Provider LAB BLOOD ORDERAB LES Final Result [facility] [address] [place] [phone] [phone] * (ABNORMAL) Iron And Total Iron Binding Capacity (08/27/2024 1:25 PM EDT) Iron 14(L) 30 - 160 mcg/dL [facility] Total Iron Binding Capacity 295 228 - 428 mcg/dL [facility] Percent Iron Saturation 5(L) 15 - 50 % [facility] Unsaturated Iron Binding 281 ug/dL [facility] 08/27/2024 1:25 PM EDT 08/27/2024 1:25 PM EDT us Generic External Data Provider LAB BLOOD ORDERAB LES Final Result [facility] [address] [place] [address] [phone] * (ABNORMAL) CBC (08/27/2024 1:25 PM EDT) Pathologist [facility] White Blood Count 9.0 4.8 - 10.8 X10*3/uL [facility] Red Blood Count 4.06(L) 4.20 - 5.50 X10*6/uL [facility] Hemoglobin 10.0(L) 12.0 - 16.0 g/dl [facility] Hematocrit 33.1(L) 37.0 - 47.0 % [facility] Mean Corpuscular Volume 81.5 80.0 - 98.0 fL [facility] Mean Corpuscular Hemoglobin 24.6(L) 27.0 - 33.0 pg [facility] Mean Corpuscular HGB Conc 30.2(L) 31.0 - 35.0 g/dl [facility] Red Cell Distribution Width 16.3(H) 11.0 - 16.0 % [facility] Platelet Count 393 160 - 400 X10*3/uL [facility] Mean Platelet Volume 9.4 9.4 - 12.3 fL [facility] NRBC Pct Auto 0.0 0.0 - 0.2 /100WBC [facility] NRBC Abs Auto 0.000 0.0 - 0.012 X10*3/uL [facility] 08/27/2024 1:25 PM EDT 08/27/2024 1:25 PM EDT us Generic External Data Provider LAB BLOOD ORDERAB LES Final Result [facility] [address] [place] [address] [phone] documented in this encounter Visit Diagnoses Not on filedocumented in this encounter Additional Health Concerns Assessment Noted Time PHQ-9 Depression Total Score: 9 05/10/20 24 11:56 AM EST documented as of this encounter Care Teams Business Objects Architect Relationship Specialty Start Date End Date Name, MD Eddie 230 [place] [address] PCP - General Family Medicine 09/16[facility]15 [facility] documented as of this encounter
--- OUTSIDE RECORDS SUMMARY | 2024-08-27 15:59 | XMS_ITS | Encounter Summary ---
Author Organization [employer] Address [address] [facility] 7t [place] [address] Care Team Providers Care Potline Monitor Name Role Phone Name, Eddie GILMORE Primary Care Provider [phone] Reason for Visit * Reason Onset Date Comments september recalls 08/09/2024 Encounter Details Date Type Department Care Team ([facility] st Contact Info) Description 08/09/[address] [facility] MEDICINE 230 [place], [place] [phone] Sophie Marie [place] september recalls Social History [...] 9:45 AM EDT Office Visit [facility] MEDICINE [address] [place] [address] 10/29/2024 2:30 PM EDT Office Visit [facility] MEDICINE [address] [place] [address] NameEddie MD [address] [place] [address] documented as of this encounter Visit Diagnoses Not on filedocumented in this encounter Additional Health Concerns Assessment Noted Time PHQ-9 Depression Total Score: 9 05/10/20 24 11:56 AM EST documented as of this encounter Care Teams Potline Monitor Relationship Specialty Start Date End Date Eddie Marshall MD [address] [place] [address] PCP - General Family Medicine 09/16/15 [place] SEN 07/01/24 documented as of this encounter
--- OUTSIDE RECORDS SUMMARY | 2024-08-27 15:59 | XMS_ITS | Encounter Summary ---
Author Organization [employer] Address [address] [place] [address] 7 [place] [address] Care Team Providers Care Punch Operator Name Role Phone Name, Eddie GILMORE Primary Care Provider [phone] Reason for Referral * Consultation (STAT) - Closed Specialty Diagnoses / Procedures Referred By Karyn tyler Referred To Contact Otolaryngology Diagnoses Epistaxis Latanya Hoover MD [address] [place] [address] Phone: tel: fax: [facility] [address] Phone: tel: fax: Referral ID Status Reason Start Date Expiration Date V isits Requested Visits Authorized [id number] Closed Specialty Services Required 08/02/2024 08/02/2025 1 1 Reason for Visit * Reason Comments Hospital Follow-up Encounter Details Date Type Department Care Team (Late st Contact Info) Description 08/02/2024 2:30 PM EST Office Visit [facility] MEDICINE 230 [place], [place] [phone] Latanya Hoover MD 230 [place], [place] [phone] Epistaxis (Primary Dx); Controlled type 2 diabetes mellitus with complication, without long-term current use of insulin (CMS/[facility]); Dietary counseling; Exercise counseling; Overweight; [...] past two weeks. Two ER visits to [facility]. Accompanied by her son- Raymundo Acute Concerns: Severe nose bleeds, enough to become anemic. History of multiple cauterizations, needs ENT referralfor stat visit Humidifier in place in her bedroom, applying antibiotic Hg 13.5- >10.9 Interim Updates: ED f/u with Red team provider for ED f/u as she is not able to come to [facility] due to need to arrange transportation. 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 Velasquez in Endocrinology at [address] and emphysema by [employer] Dr. Rowland at [address] Patient Active Problem List Diagnosis Allergic [...] complication, without long-term current use of insulin ([facility]) Relevant Orders POCT Glucose (Completed) [...] refer stat to ENT for cauterization, possible SUPERINTENDENT OIL FIELD DRILLING scope Recommend anterior nasal packing if she [...] Disp: , Rfl: Blood Glucose Monitoring Suppl (boo-box Verio Flex System) w/Device kit, USE DIRECTED, [...] Disp: 90 tablet, Rfl: 2 glucose blood (boo-box Verio) test strip, CHECK BY FINGERSTICK TWICE DAILY, Disp: 50 strip, Rfl: 11 Homeopathic Products (Arnicare) gel, Applied twice daily, Disp: , Rfl: Lancets (boo-box Delica Plus [id number]) misc, USE TO CHECK BLOOD SUGAR TWICE [...] refer stat to ENT for cauterization, possible SUPERINTENDENT OIL FIELD DRILLING scope Recommend anterior nasal packing if she is bleeding heavily documented in this encounter Plan of Treatment Upcoming Encounters Date Type Department Care Team (Late st Contact Info) Description 09/10/2024 9:45 AM EDT Office Visit [facility] MEDICINE [address] [place] [address] 10/29/2024 2:30 PM EDT Office Visit [facility] MEDICINE [address] [place] [address] Name, MD Eddie [address] [place] [address] Scheduled Referrals Name Type Priority Associated Diagnoses Orde r Schedule Referral to ENT Outpatient Referral STAT Epistaxis Expected: 08/02/2024 (Approximate), Expires: 08/02/2025 documented as of this encounter Procedures Procedure Name Priority Date/Time Associated Diagnosis Comments POCT GLYCATED HEMOGLOBIN, TOTAL Routine 08/02/2024 2:14 PM EST Controlled type 2 diabetes mellitus with complication, without long-term current use of insulin ([facility]) POCT GLUCOSE Routine 08/02/2024 2:14 PM EST Controlled type 2 diabetes mellitus with complication, without long-term current use of insulin (CMS/[facility]) documented in this encounter Results [...] complication, without long-term current use of insulin ([facility]) Dietary counseling Dietary surveillance and counseling Exercise counseling Overweight Anemia, unspecified type documented in this encounter Additional Health Concerns Assessment Noted Time PHQ-9 Depression Total Score: 9 05/10/20 24 11:56 AM EST documented as of this encounter Care Teams Punch Operator Relationship Specialty Start Date End Date Name, MD Eddie 230 [place] [address] PCP - General Family Medicine 09/16/15 [facility] 07/[facility] documented as of this encounter
--- OUTSIDE RECORDS SUMMARY | 2024-08-27 15:59 | XMS_ITS | Encounter Summary ---
Author Organization [employer] Address [address] [place] [address] 7 [place] [address] Care Team Providers Care Optimization Specialist Name Role Phone Name, Eddie GILMORE Primary Care Provider [phone] Reason for Visit * Reason Onset Date Comments Active Med List 06/28/2023 Encounter Details Date Type Department Care Team ([facility] st Contact Info) Description 06/28/2023 Telephone [facility] MEDICINE 230 [place], [place] [phone] Name, MD Eddie 230 [place] [address] Active Med List Social History Tobacco Use [...] Be requesting a updated active medication list writer producer did attempt to transfer to Medical records so that she can obtain this information but they kept transferring back to the call center. [facility] [address], [place] [phone] documented in this encounter Plan of Treatment Upcoming Encounters Date Type Department Care Team (Late st Contact Info) Description 09/10/2024 9:45 AM EDT Office Visit [facility] MEDICINE [address] [place] [address] 10/29/2024 2:30 PM EDT Office Visit [facility] MED[facility]INE [address] [place] [address] Name, MD Eddei [address] [place] [address] documented as of this encounter Visit Diagnoses Not on filedocumented in this encounter Additional Health Concerns Assessment Noted Time PHQ-9 Depression Total Score: 10 023 1:16 PM EDT documented as of this encounter Care Teams Optimization Specialist Relationship Specialty Start Date End Date Name, MD Eddie 230 [place] [address] PCP - General Family Medicine 09/16/15 [place] SEN 07/01/24 documented as of this encounter
--- OUTSIDE RECORDS SUMMARY | 2024-08-27 15:59 | XMS_ITS | Encounter Summary ---
Author Organization [employer] Address [address] [place] [address] 7 [place] [address] Care Team Providers Care Opto Mechanical Engineer Name Role Phone Name, Eddie GILMORE Primary Care Provider [phone] Reason for Visit * Reason Onset Date Comments Medication Question 09/05/2023 Encounter Details Date Type Department Care Team ([facility] st Contact Info) Description 09/05/2023 Telephone [facility]ICINE 230 [place], [place] [phone] Name, MD Eddie 230 [place] [address] Medication Question Social History Tobacco Use Types [...] Description 09/10/2024 9:45 AM EDT Office Visit [facility] [address] [place] [address] 10/29/2024 2:30 PM EDT Office Visit [facility] [address] [place] [address] Name, MD Eddie 230 [place] [address] documented as of this encounter Visit Diagnoses Not on filedocumented in this encounter Additional Health Concerns Assessment Noted Time PHQ-9 Depression Total Score: 10 11/28/ 023 1:16 PM EDT documented as of this encounter Care Teams Opto Mechanical Engineer Relationship Specialty Start Date End Date Name, MD Eddie 230 [facility] [place] [address] PCP - General Family Medicine 09/16/15 [place] SEN 07/01/24 documented as of this encounter
--- OUTSIDE RECORDS SUMMARY | 2024-08-27 15:59 | XMS_ITS | Encounter Summary ---
Author Organization [employer] Address [address] [place] [address] 7 [place] [address] Care Team Providers Care Group Controller Name Role Phone Name, Eddie GILMORE Primary Care Provider [phone] Reason for Visit * Reason Onset Date Comments Medication Question 09/01/2023 Encounter Details Date Type Department Care Team ([facility] st Contact Info) Description 09/01/2023 Telephone [facility] MEDICINE 230 [place], [place] [phone] Name, MD Eddie 230 [place] [address] Medication Question Social History Tobacco Use Types [...] an add on. Please contact pharmacy at [phone]. documented in this encounter Plan of Treatment Upcoming Encounters Date Type Department Care Team (Late st Contact Info) Description 09/10/2024 9:45 AM EDT Office Visit [facility] [place] [address] 10/29/2024 2:30 PM EDT Office Visit [facility] [place] [address] Name, [place] [address] documented as of this encounter Visit Diagnoses Not on filedocumented in this encounter Additional Health Concerns Assessment Noted Time PHQ-9 Depression Total Score: 10 023 1:16 PM EDT documented as of this encounter Care Teams Group Controller Relationship Specialty Start Date End Date Name, MD Eddie [facility] [place] [address] PCP - General Family Medicine 09/16/15 [place] [facility] 07/01/24 documented as of this encounter
--- OUTSIDE RECORDS SUMMARY | 2024-08-27 16:00 | XMS_ITS | Encounter Summary ---
Author Organization [employer] Address [address] [place] [address] 7t [place] [address] Care Team Providers Care World Renowned Chef And Restaurant Owner Name Role Phone Name, Eddie GILMORE Primary Care Provider [phone] Encounter Details Date Type Department Care Team ([facility] st Contact Info) Description 12/07/2022 Telephone [facility] MEDICINE 230 [place], [place] [phone] Name, MD Eddie 230 [place] [address] Social History Tobacco Use Types Packs/Day Years [...] update PCP now. Ordering provider Pierce Pillai ROLLOUT MANAGER Follow with genaro as indicated. Results faxed at time of call to [phone]. Ref.# [id number] C documented in this encounter Plan of Treatment Upcoming Encounters Date Type Department Care Team (Late st Contact Info) Description 09/10/2024 9:45 AM EDT Office Visit [facility] MED[facility]INE [address] [place] [address] 10/29/2024 2:30 PM EDT Office Visit [address] [address] Name, MD Eddie [address] [place] [address] documented as of this encounter Visit Diagnoses Not on filedocumented in this encounter Additional Health Concerns Assessment Noted Time PHQ-9 Depression Total Score: 10 023 1:16 PM EDT documented as of this encounter Care Teams World Renowned Chef And Restaurant Owner Relationship Specialty Start Date End Date Name, MD Eddie [address] [place] [address] PCP - General Family Medicine 09/16/15 [facility] 07/01/24 documented as of this encounter
--- OUTSIDE RECORDS SUMMARY | 2024-08-27 16:00 | XMS_ITS | Encounter Summary ---
Author Organization [employer] Address [address] [place] [address] 7 [place] [address] Care Team Providers Care Lead Level Designer Name Role Phone Name, Eddie GILMORE Primary Care Provider [phone] Reason for Visit * Reason Comments Med Refill Encounter Details Date Type Department Care Team (Late st Contact Info) Description 05/08/2023 Refill [facility] MEDICINE 230 [place], [place] [phone] Name, MD Eddie 230 [place], [place] [phone] Chronic pain syndrome Social History Tobacco Use [...] Description 09/10/2024 9:45 AM EDT Office Visit [facility] MEDICINE [address] [place] [address] 10/29/2024 2:30 PM EDT Office Visit [address] [address] Name, MD Eddie [address] [place] [address] documented as of this encounter Visit Diagnoses Diagnosis Chronic pain syndrome documented in this encounter Additional Health Concerns Assessment Noted Time PHQ-9 Depression Total Score: 10 023 1:16 PM EDT documented as of this encounter Care Teams Lead Level Designer Relationship Specialty Start Date End Date NameEddie MD [address] [place] [address] PCP - General Family Medicine 09/16/15 [facility] documented as of this encounter
--- OUTSIDE RECORDS SUMMARY | 2024-08-27 16:00 | XMS_ITS | Encounter Summary ---
Author Organization [employer] Address [address] [place] [address] 7 [place] [address] Care Team Providers Care Halftone Operator Name Role Phone Name, Eddie GILMORE Primary Care Provider [phone] Reason for Visit * Reason Onset Date Comments Referral 02/02/2023 Back dated refer ral Encounter Details Date Type Department Care Team ([facility] st Contact Info) Description 02/02/2023 Telephone [facility] [address] [place], [place] [phone] Name, MD Eddie [address] [place] [address] Referral (Back dated referral ) Social History [...] 1:40 PM EDT Tc from Kasie at [facility] requesting status on message below regarding referral. Fax number [phone]. Any questions please call [phone] * Telephone Encounter - Amber Roger RN - 02/03/2023 10:34 AM EDT Please review message below regarding backdated referral for these dates * Telephone Encounter - Laure Mcgill - 02/02/2023 2:07 PM EDT Tc from Kasie at [facility] calling in regards to referral needing to be back dated. Patient was seen at the office on 01/03/23 and 01/11/23. Fax number [phone]. Any questions please call [phone]. documented in this encounter Plan of Treatment Upcoming Encounters Date Type Department Care Team (Late st Contact Info) Description 09/10/2024 9:45 AM EDT Office Visit [facility] [address] [place] [phone] 10/29/2024 2:30 PM EDT Office Visit [facility] [address] [place] [phone] Name, MD Eddie [address] [place] [phone] documented as of this encounter Visit Diagnoses Not on filedocumented in this encounter Additional Health Concerns Assessment Noted Time PHQ-9 Depression Total Score: 10 023 1:16 PM EDT documented as of this encounter Care Teams Halftone Operator Relationship Specialty Start Date End Date Name, MD Eddie [address] [place] [id number] PCP - General Family Medicine 09/16/15 Jerica SEN 07/01/24 documented as of this encounter
--- OUTSIDE RECORDS SUMMARY | 2024-08-27 16:00 | XMS_ITS | Encounter Summary ---
Author Organization [employer] Address [address] [place] [address] [place] [address] Care Team Providers Care Smart Energy Specialist Name Role Phone NameEddie MD Primary Care Provider [phone] Reason for Visit * Reason Comments Med Refill Encounter Details Date Type Department Care Team (Late st Contact Info) Description 01/29/2023 Refill [facility] [address] [place] [address] [phone] Farhana Singh FNP [address] [place] [address] Dept [place] [address] Social History Tobacco Use Types Packs/Day Years [...] Description 09/10/2024 9:45 AM EDT Office Visit [facility] [address] [place] [address] [phone] 10/29/2024 2:30 PM EDT Office Visit [facility] [address] [place] [address] [phone] Name, MD Eddie [address] [place] [phone] documented as of this encounter Visit Diagnoses Not on filedocumented in this encounter Additional Health Concerns Assessment Noted Time PHQ-9 Depression Total Score: 10 11/28/ 023 1:16 PM EDT documented as of this encounter Care Teams Smart Energy Specialist Relationship Specialty Start Date End Date Name, MD Eddie [address] [place] [address] PCP - General Family Medicine 09/16/15 Jerica A 07/01/24 documented as of this encounter
--- OUTSIDE RECORDS SUMMARY | 2024-08-27 16:00 | XMS_ITS | Encounter Summary ---
Author Organization [employer] Address [address] [place] [address] 7 [place] [address] Care Team Providers Care Renovator Machine Operator Name Role Phone Name, Eddie GILMORE Primary Care Provider [phone] Reason for Visit * Reason Comments Med Refill Encounter Details Date Type Department Care Team (Late Contact Info) Description 01/04/2023 Refill [facility] [address] [place] [address] [phone] Name, MD Eddie [address] [place] [address] Gastroesophageal reflux disease, unspecified whether esophagitis present [...] Office Visit [facility] [address] [place] [address] 10/29/2024 2:30 PM EDT Office Visit [facility] [address] [place] [phone] Name, [place] [address] documented as of this encounter Visit Diagnoses Diagnosis Gastroesophageal reflux disease, unspecified whether esophagitis present documented in this encounter Additional Health Concerns Assessment Noted Time PHQ-9 Depression Total Score: 10 023 1:16 PM EDT documented as of this encounter Care Teams Renovator Machine Operator Relationship Specialty Start Date End Date Name, [place] [address] PCP - General Family Medicine 09/16/15 Jerica A 07/01/24 documented as of this encounter
--- OUTSIDE RECORDS SUMMARY | 2024-08-27 16:00 | XMS_ITS | Encounter Summary ---
Author Organization [employer] Address [address] [place] [address] 7 [place] [address] Care Team Providers Care Bale Coverer Name Role Phone Name, Eddie GILMORE Primary Care Provider [phone] Reason for Visit * Reason Comments Med Refill Encounter Details Date Type Department Care Team (Late Contact Info) Description 12/01/2022 Refill [facility] [address] [place], [place] [phone] Name, MD Eddie [address] [place] [address] Controlled type 2 diabetes mellitus with complication, without long-term current use of insulin ([facility]) Social History Tobacco Use Types Packs/Day [...] 9:45 AM EDT Office Visit [facility] [place] [address] 10/29/2024 2:30 PM EDT Office Visit [facility] [place] [address] Name, [place] [address] documented as of this encounter Visit Diagnoses Diagnosis Controlled type 2 diabetes mellitus with complication, without long-term current use of insulin ([facility]) documented in this encounter Additional Health Concerns Assessment Noted Time PHQ-9 Depression Total Score: 10 023 1:16 PM EDT documented as of this encounter Care Teams Bale Coverer Relationship Specialty Start Date End Date Name, [place] [address] PCP - General Family Medicine 09/16/15 Jerica BURGOSA 07/01/24 documented as of this encounter
== END 2024-08-27 13:10 | disposition home or self-care (01) ==
LOC: HO.LAB 13:09
PROVIDERS: PCP Internal Medicine Geriatric Medicine; Visit Provider Internal Medicine
DX: R04.0 Epistaxis (principal)
CPT/HCPCS: 36415; 82728; 83540; 85027

== ENCOUNTER 2024-08-28 13:09 | Outpatient (AMB) | payer MEDICARE, SELFPAY ==
[2024-08-28 13:34] VITALS: PULSE 111; O2SAT 97
--- NOTE | 2024-08-28 13:34 | MHC.OFFVIS ---
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 [employer] Bo[employer] Plasma Etcher: [employer] Plasma Etcher offered & declined Allergies gluten Allergy (Verified 08/28/24 13:36) Unknown scallops Allergy (Verified 08/28/24 13:36) Unknown Medication List - Last Reconciled 08/28/24 by Zeny Osei LPN acetaminophen ER (Tylenol 8 Hour) 1,300 mg PO Q8H PRN albuterol sulfate 90 mcg/actuation 2 puffs inhalation Q4H PRN alendronate 70 mg PO QWEEK amlodipine 2.5 mg PO DAILY 90 days ascorbic acid (vitamin C) 500 mg PO DAILY atorvastatin 40 mg PO DAILY betamethasone valerate 0.1% 1 appl topical DAILY biotin 5 mg PO DAILY cholecalciferol (vitamin D3) 50 mcg PO DAILY clopidogrel 75 mg PO DAILY cyanocobalamin (vitamin B-12) 1,000 mcg PO DAILY ferrous sulfate (Iron (ferrous sulfate)) 325 mg PO DAILY latanoprost 0.005% 1 drp ophthalmic (eye) BEDTIME levetiracetam (Keppra) 750 mg PO BID levothyroxine 112 mcg PO DAILY lidocaine HCl 2% 1 appl topical .at bedtime 4 weeks loperamide 2 mg PO QID PRN magnesium 500 mg PO DAILY melatonin mg PO metformin 500 mg PO BID milk thistle 500 mg PO BID mirabegron ER (Myrbetriq) 50 mg PO DAILY omeprazole 20 mg PO DAILY oxycodone-acetaminophen 5-325 mg 1 tab PO BID PRN pantoprazole 40 mg PO BID peg 400-propylene glycol (PF) 0.4-0.3 % (Systane (PF)) 1 drp ophthalmic (eye) BID simethicone 125 mg PO TID PRN trospium ER 60 mg PO DAILY zinc 50 mg PO DAILY HPI HPI Dyspnea: Details: Celeste is a pleasant 78 year old female, former smoker, quit 20 years ago with 40+ pyh with underlying HTN, stable angina, CAD, seizures, h/o CVA x 3 and h/o NH x 3 s/p 3 stents. She is able to ambulate however uses a wheelchair for long distances and is accompanied by her son today. At the last visit, she was started on Breo 100 mcg with suboptimal effect, continues with dyspnea on exertion, occasional dry cough and intermittent wheezing/chest tightness. Today she presents to review chest CT results. She denies any visits to urgent care or hospitalizations related to respiratory distress since the last visit. [facility] Medical History Osteoporosis Lower GI bleed Rectal bleed Anemia Stable angina Essential hypertension CVA (cerebral vascular accident) CAD (coronary artery disease) Surgical History Status post cardiac catheterization History of cardiac cath History of adenoidectomy Hx of tonsillectomy Hx of hernia repair History of section History of cholecystectomy History of appendectomy Family History Mother Cancer Father Heart attack Social History Household Members: Children Housing: House Do you presently have visiting nurse or other home services: Yes Alcohol intake: never Patient Tobacco Use Status: Former Tobacco user Years Smoked: 30 +/- e-Cigarette/Vaping Use: Never Used Second Hand Smoke Exposure: No Substance Use Type: IV Drugs service: No Current occupational status: retired Current occupation: right hand dominant Review of Systems Const Denies chills, Denies excessive sweating, Denies fever(s), Denies headache(s) and Denies night sweats Eyes Denies dry eyes, Denies irritation and Denies itchy eyes ENT Reports Normal hearing present, Denies headache(s), Denies nasal discharge, Denies post nasal drip and Denies sore throat Card Denies chest pain, Denies chest pain at rest, Denies chest pain with activity, Denies claudication, Denies leg edema, Reports dyspnea on exertion, Denies orthopnea and Denies paroxysmal nocturnal dyspnea Resp Denies chest congestion, Denies excessive phlegm production, Denies pain on inspiration, Denies pain with cough, Reports dyspnea on exertion, Denies stridor and Reports wheezing Musc Denies myalgias Neuro Reports Normal hearing present and Denies headache(s) Endo Denies excessive sweating Miguel/Lymph Denies lymphadenopathy Aller/Immun Denies itchy eyes, Denies seasonal rhinorrhea and Reports wheezing Physical Exam Vital Signs: Last Vital Signs Pulse 111 H 08/28/24 13:34 Pulse Ox 97 08/28/24 13:34 Oxygen Delivery Method Room Air 08/28/24 13:34 Const General: cooperative, healthy appearing, comfortable, no acute distress, well developed and alert Orientation/consciousness: patient oriented x3 Limitations: no limitations HEENT Head: Yes normal to inspection, Yes normocephalic and Yes atraumatic Ears: hearing grossly normal bilaterally and external ears normal Eyes General: appearance normal, both eyes and all related structures Eyelids: Yes eyelids normal Sclerae: sclerae normal EOM: EOMs intact bilaterally Neck Neck: Yes normal visual inspection and Yes no lymphadenopathy Lymphatic: no lymphadenopathy noted Chest Chest palpation & inspection: normal inspection of the chest Resp Effort & Inspection: normal respiratory effort, able to speak in complete sentences, no audible wheezes, no cough, no stridor, not tachypneic, no tripod positioning and no use of accessory muscles Auscultation: clear to auscultation bilaterally Cardio Jugular venous distension: no JVD Rate: regular rate Rhythm: regular rhythm Skin Other: warm, dry General skin exam: no rashes or lesions noted Neuro General: patient oriented x3 Cranial nerves: Yes Normal hearing present Cognition (Neuro): normal cognition Gait exam (Neuro): Normal gait present Extrem General: Yes normal to inspection, Yes capillary refill normal, Yes no clubbing, cyanosis or edema and Yes no pedal edema Psych Appearance: grossly normal and well kempt Speech and movement: Normal speech and movement present and Clear speech present Affect: normal affect Attitude: cooperative Thought process: Normal thought process present Thought content: Normal thought content present Insight: Good insight present (Psych) Judgement: Good judgement present (Psych) Results Reviewed Results Reviewed: [address] [place] [address] [address] [address] Scan Report Signed Patient: Celeste Abad MR#: [id number] : 1945 Acct:[id number] Age/Sex: 78 / F ADM Date: 08/26/24 Loc: HO.CT Attending Dr: Maria Esther Blum NP Ordering Physician: Maria Esther Blum NP Date of Service: 08/26/24 Procedure(s): CT chest wo IV con Accession Number(s): [id number] cc: Name,Eddie GILMORE; Maria Esther Blum NP~ Report Number: [id number]: Total DLP = 208.00 mGy-cm CLINICAL HISTORY: J43.9 - Emphysema, unspecified CT chest without contrast Comparison: CR - CHEST 2 VIEWS - 11/14/17 19:22 EDT Findings: The heart size is normal. Severe Atherosclerosis calcification of the coronary artery. The visualized thyroid and mediastinum are unremarkable. Large hiatal hernia. No consolidation or effusion. Severe centrilobular emphysema. 7.7 mm nodular density of the right upper lobe series 7, image 68 and 5 mm nodular density of the right upper lobe on image 78. The visualized upper abdomen is unremarkable. No acute fractures. IMPRESSION: Nodular densities of the right upper lobe. CT chest follow-up in 3-6 months is recommended. Fleischner Society 2017 Guidelines for incidentally detected indeterminate nodules in persons 35 years of age or older. Single Solid Nodules: 5 mm or smaller nodules need no follow-up in low risk, and [address] follow-up is optional in high risk patients. 6-8 mm nodules have optional [address] follow-up in low risk, and 6-[address] follow-up followed by 18-[address] follow-up if no change in high risk patients. 9 mm or larger nodules should consider CT, PET/CT, or biopsy at 3 months regardless of patient risk. Multiple Solid Nodules: 5 mm or smaller nodules need no follow-up in low risk, and [address] follow-up is optional in high risk patients. 6-8 mm nodules need 3-[address] follow-up followed by an optional 18-[address] follow-up regardless of patient risk. 9 mm or larger nodules should consider 3-[address] follow-up. For low risk 18-24 month follow-up is optional, whereas for high risk it is needed. Single Ground Glass Nodules: 5 mm or smaller nodules need no followup 6 mm and larger nodules need CT at 6-12 months to confirm persistence, then CT every 2 years until 5 years Single Subsolid Nodules: 5 mm or smaller nodules need no followup 6 mm and larger nodules need CT at 3-6 months to confirm persistence. If no change and solid component /T/lt;6 mm, then CT every year until 5 years Multiple Ground Glass or Subsolid Nodules: 5 mm or smaller nodules need CT at 3-6 months. If stable, optional CT at 2 and 4 years. 6 mm or larger nodules need CT at 3-6 months. Subsequent management based on most suspicious nodule This document has been electronically signed by: German Riley MD on 08/27/2024 14:12:38 Dictated By: German Riley MD Signed By: <Electronically signed by German Riley MD in OV> 08/27/241412 DD/ 11 TD/TT: 08/27/241411 Supervisor Calibration: Assessment & Plan Assessment & Plan (1) COPD (chronic obstructive pulmonary disease): Code(s): J44.9 - Chronic obstructive pulmonary disease, unspecified Category: Medical (2) Emphysema of lung: Code(s): J43.9 - Emphysema, unspecified Category: Medical (3) Personal history of tobacco use: Code(s): Z87.891 - Personal history of nicotine dependence Category: Social Hx (4) Multiple pulmonary nodules: Code(s): R91.8 - Other nonspecific abnormal finding of lung field Category: Medical Plan Will increase Breo to 200mcg. Reviewed chest CT which revealed severe centrilobular emphysema, 7.7 mm nodular density of the right upper lobe and 5 mm nodular density of the right upper lobe. Will repeat in 3 months to assess stability. All questions were answered and patient is in agreement of plan. Will follow up in 6-8 weeks or sooner if needed. Orders: Orders CT chest wo IV con 3 Months R91.8 - Other nonspecific abnormal finding of lung field Medications: New fluticasone furoate-vilanterol 200-25 mcg/dose (Breo Ellipta) 1 inh inhalation DAILY 60 ea 6RF Coding Level of Care Code Est Pt Level 4 (89354) Diagnoses COPD (chronic obstructive pulmonary disease) J44.9 Emphysema of lung J43.9 Personal history of tobacco use Z87.891 Multiple pulmonary nodules R91.8
--- OUTSIDE RECORDS SUMMARY | 2024-08-28 15:26 | XMS_ITS | Clinical Summary ---
Author Organization [employer] Address [address] [place] [address] 7[address] [place] [address] Care Team Providers Care Mold Shop Supervisor Name Role Phone Name, Eddie GILMORE Primary Care Provider [phone] Allergies Active Allergy Reactions Criticality Noted Date [...] 06/01/20 22 Active Blood Glucose Monitoring Suppl ([employer] Verio Flex System) w/Device kit USE DIRECTED [...] in the morning. 01/10/20 23 Active Lancets ([employer] Delica Plus [id number]) miscIndications :Controlled type 2 diabetes mellitus with complication, without long-term current use of insulin ([facility]) USE TO CHECK BLOOD SUGAR TWICE A DAY 100 each 5 09/15/19 24 Active glucose blood ([employer] Verio) test stripIndication s:Controlled type 2 diabetes [...] refer stat to ENT for cauterization, possible TIN DIPPER scope Recommend anterior nasal packing if she is bleeding heavily snf (current) use of opiate analgesic 03/20 Overview (07/17/2024): Dx: chronic pain syndrome/back pain Rx: Percocet 5/325 every 12 hours Last BUSINESS INTELLIGENCE CONSULTANT agreement:03/22/24 Tier II (visit every 3 months) [...] that is chronic 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 She understands this is the [...] Provider, Generic External Data 08/26/2024 Orders Only [facility] External Provider, [facility] 08/19/2024 Refill [facility] [place] [address] Eddie Marshall MD 08/14/2024 Orders Only GENERIC EXTERNAL DATA DEPARTMENT Provider, Generic External Data 08/13/2024 Telephone [facility] [place] [address] Eddie Marshall MD Appointment Request 08/09/[address] [address] Sophie Marie MA september recalls 08/09/2024 Telephone [facility] [place] [address] Sophie Marie MA september recalls 08/09/2024 Refill [facility] [place] [address] Eddie Marshall MD Chronic pain syndrome 08/02/2024 2:30 PM EST Office Visit [facility] [place] [address] Latanya Hoover MD Epistaxis (Primary Dx); Controlled type 2 diabetes mellitus with complication, without long-term current use of insulin ([facility]); Dietary counseling; Exercise counseling; Overweight; Anemia, unspecified type 08/02/2024 Travel 07/30/2024 Telephone [facility] [place] [address] Eddie Marshall MD ER Follow-up 07/23/2024 9:00 AM EST Office Visit [facility] 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 07/16/2024 9:15 AM EST Office Visit [facility] [address] [place] [phone] Kelly Montoya MD Chronic pain syndrome (Primary Dx) 07/16/2024 Orders Only [facility] External Provider, [facility] 07/16/2024 Travel 07/12/2024 Refill [facility] [address] [place] [phone] Eddie Marshall MD 07/12/2024 Refill [facility] [address] [place] [address] Eddie Marshall MD Chronic pain syndrome 07/02/2024 Telephone [facility] [address] [place] [phone] Eddie Marshall MD 06/10/2024 Telephone [facility] [address] [place] [address] Eddie Marshall MD Med Refill 06/10/2024 Refill [facility] [address] [place] [address] 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, urban forester pain syndrome 06/03/2024 Telephone [facility] [address] [place] [phone] Eddie Marshall MD Medication Question from Last 3 Months Immunizations Name Administration Dates Next Due Influenza injectable quadriv alent IIV4 with preservative 04/07/2016 Influenza, IIV3, injectable 03/23/2015,1 ,03/08/2013,04/06,05/01/2008,04/19/2007,05/10/2006 ,03/15/2005 Novel [id number], preservative-free 05/22/2009 Pneumococcal Polysaccharide PPSV23 07/11/2013, TD [...] 09/10/2024 9:45 AM EDT Office Visit [facility] [address] [place] [address] [phone] 10/29/2024 2:30 PM EDT Office Visit [facility] [address] [place] [address] [phone] Name, MD Eddie [address] [place] [address] [phone] Health Maintenance Due Date Last Done Comments [...] EDT Narrative 08/27/2024 2:14 PM EDT ? [facility] ?[address] ?[place] [address] ? CT Scan Report ? Signed ? Patient: Celeste Abad ?MR#: [id number] ?? 4 ? : 1945 ?Acct:[id number] ? Age/Sex: 78 / F ?ADM Date: 08/26/24 ? Loc: HO.CT ? Attending Dr: Maria Esther Blum TIN DIPPER ? Ordering Physician: Maria Esther Blum NP ?? Date of Service: 08/26/24 ?? Procedure(s): CT chest wo IV con ?? Accession Number(s): [id number] ? cc: Name,Eddie GILMORE; Maria Esther Blum NP ? Report Number: ?? [id number]: Total DLP = ??208.00 mGy-cm ? CLINICAL [...] by German Riley MD in OV> ? 08/27/243 ? DD/ 11 ? TD/TT: 08/27/241411 ? Machine Operations Supervisor: ? Procedure Note Donotuseinterpreter, Image - 08/27/[address] [address] [address] Scan Report Signed Patient: Celeste AbadMR#: [id number] 4 : 7Acct:[id number] Age/Sex: 78 / FADM Date: 08/26/24 Loc: HO.CT Attending Dr: Maria Esther Blum NP Ordering Physician: Maria Estehr Blum NP Date of Service: 08/26/24 Procedure(s): CT chest wo IV con Accession Number(s): [id number] cc: Name,Eddie GILMORE; Maria Esther Blum NP Report Number: [id number]: Total DLP = 208.00 mGy-cm CLINICAL HISTORY: [...] 08/27/24 1413 DD/ 1412 TD/TT: 08/27/24 1412 Machine Operations Supervisor: [facility] External Provider IMG CT PROCEDURES Final Result * (ABNORMAL) Iron And Total Iron Binding Capacity (08/27/2024 1:25 PM EDT) Iron 14(L) 30 - 160 mcg/dL [facility] Total Iron Binding Capacity 295 228 - 428 mcg/dL [facility] Percent Iron Saturation 5(L) 15 - 50 % [facility] Unsaturated Iron Binding 281 ug/dL [facility] 08/27/2024 1:25 PM EDT 08/27/2024 1:25 PM EDT us Generic External Data Provider LAB BLOOD ORDERAB LES Final Result Performing Organization Address City/[facility]/ZIP Co de Phone Number [facility] [address] [place] [address] [phone] * (ABNORMAL) CBC (08/27/2024 1:25 PM EDT) White Blood Count 9.0 4.8 - 10.8 X10*3/uL [facility] Red Blood Count 4.06(L) 4.20 - 5.50 X10*6/uL [facility] Hemoglobin 10.0(L) 12.0 - 16.0 g/dl [facility] Hematocrit 33.1(L) 37.0 - 47.0 % [facility] Mean Corpuscular Volume 81.5 80.0 - 98.0 fL [facility] Mean Corpuscular Hemoglobin 24.6(L) 27.0 - 33.0 pg [facility] Mean Corpuscular HGB Conc 30.2(L) 31.0 - 35.0 g/dl [facility] Red Cell Distribution Width 16.3(H) 11.0 - 16.0 % [facility] Platelet Count 393 160 - 400 X10*3/uL [facility] Mean Platelet Volume 9.4 9.4 - 12.3 fL [facility] NRBC Pct Auto 0.0 0.0 - 0.2 /100WBC [facility] NRBC Abs Auto 0.000 0.0 - 0.012 X10*3/uL [facility] 08/27/2024 1:25 PM EDT 08/27/2024 1:25 PM EDT us Generic External Data Provider LAB BLOOD ORDERAB LES Final Result Performing Organization Address City/[facility]/ZIP Co de Phone Number [facility] [address] [place] [address] [phone] * Ferritin (08/27/2024 1:25 PM EDT) Ferritin 35 10 - 250 ng/mL [facility] 08/27/2024 1:25 PM EDT 08/27/2024 1:25 PM EDT us Generic External Data Provider LAB BLOOD ORDERAB LES Final Result [facility] [address] [place] [address] [phone] * FL Esophagus Barium Swallow w/Air (08/14/2024 9:52 AM EST) Anatomical Region Laterality Modality Head, Neck Radiographic Tanya ging 08/14/2024 9:52 AM EST Narrative 08/15/2024 4:55 PM EST ? [facility] ?[address] ?[place] [address] ? Fluoroscopy Report ? Signed ? Patient: Jenniffer,Celeste ?MR#: [id number] ?? 4 ? : 1945 ?Acct:[id number] ? Age/Sex: 78 / F ?ADM Date: 08/14/24 ? Loc: HO.XRAY ? Attending Dr: Julia Li MD ? Ordering Physician: Julia Li MD ?? Date of Service: 08/14/24 ?? Procedure(s): FL barium swallow with air ?? Accession Number(s): [id number] ? cc: Eddie Marshall MD; Julia Li [...] DD/ 0952 ? TD/TT: 08/14/24 1020 ? Machine Operations Supervisor: ? Procedure Note Donotuseinterpreter, Image - 08/15/[address] [address] Fluoroscopy Report Signed Patient: Ventura Abad#: [id number] 4 : 7Acct:[id number] Age/Sex: 78 / FADM Date: 08/14/24 Loc: HO.XRAY Attending Dr: Julia Li MD Ordering Physician: Julia Li MD Date of Service: 08/14/24 Procedure(s): FL barium swallow with air Accession Number(s): [id number] cc: Eddie Marshall MD; Julia Li MD [...] MD 08/15/2024 04:52 PM EST RP Workstation: [id number] Dictated By: Devon Delvalle Signed By: <Electronically signed by Devon Delvalle in OV> 08/15/24 1652 <Electronically signed by Sagar Shore MD in OV> 08/15/24 1654 DD/ 0952 TD/TT: 08/14/24 1020 Machine Operations Supervisor: [facility] External Provider IMG FLU OROSCOPY PROCEDURES Final Result * Immunofixation (ALEXANDER), Urine (08/14/2024 9:41 AM EST) ALEXANDER Interpretation SEE NOTE [facility] Comment:Normal pattern. No m onoclonal proteins detected.The supplier of the testing reagents for this assayhas changed. Detection of small monoclonal proteins mayvary by test system.THIS TEST WAS PERFORMED AT:[id number] [place] [phone] PAYNE MD 08/14/2024 9:41 AM EST 08/14/2024 10:39 AM EST Generic External Data Provider LAB URINE ORDERAB LES Final Result [facility] [address] [place] [phone] * (ABNORMAL) Protein, Total and Protein??Electrophoresis (08/14/2024 9:37 AM EST) Prot Elec - Total Protein 6.7 6.1 - 8.1 g/dL [facility] Prot Elec - Albumin 3.2(A) 3.8 - 4.8 g/dL [facility] Prot Elec - Alpha1 0.4(A) 0.2 - 0.3 g/dL [facility] Prot Elec - Alpha2 1.1(A) 0.5 - 0.9 g/dL [facility] Prot Elec - Beta 1 0.5 0.4 - 0.6 g/dL [facility] Prot Elec - Beta 2 0.5 0.2 - 0.5 g/dL [facility] Prot Elec - Gamma 1.0 0.8 - 1.7 g/dL [facility] PES - Abn Protein Band 1 TNP [facility] PES-Abn Protein Band 2 TNP [facility] PES-Abn Protein Band 3 [facility] Prot Elec - Interpretation SEE NOTE [facility] Comment:Evaluation is consis tent with an acute inflammatorypattern.THIS TEST WAS PERFORMED AT:[id number] [place] [phone] PAYNE MD 08/14/2024 9:37 AM EST 08/14/2024 9:41 AM EST us Generic External Data Provider LAB BLOOD ORDERAB LES Final Result [facility] [address] [place] [phone] * (ABNORMAL) Phosphate (As Phosphorus) (08/14/2024 9:37 AM EST) [facility] Phosphorus 2.6(L) 2.7 - 4.5 mg/dL [facility] 08/14/2024 9:37 AM EST 08/14/2024 9:41 AM EST Generic External Data Provider LAB BLOOD ORDERAB LES Final Result [facility] [address] [place] [phone] * (ABNORMAL) POCT HGB A1C (08/02/2024 2:14 PM EST) Pathologist [facility] Hemoglobin A1C 6.2(A) 4.0 - 6.0 % QC Media Lot # [id number] Lot# Expiration Date ,026 Blood 08/02/2024 2:14 PM EST Latanya Hoover MD POINT OF CARE TEST ENTER/EDIT ORDERABLES Final Result * POCT Glucose (08/02/2024 2:14 PM EST) Pathologist [facility] Glucose Blood, POC 131 60 - 200 mg/dL QC Media Lot # [id number] Lot# Expiration Date [id number] Blood Capillary blood specimen / Unknown 08/02/2024 2:14 PM EST Result [facility] Latanya Hoover MD POINT OF CARE TEST ENTER/EDIT ORDERABLES Edited Result - Final * XR KUB and Upright 2 Views (07/16/2024 7:07 PM EST) Anatomical Region Laterality Modality Radiographic Tanya ging 07/16/2024 7:07 PM EST Narrative 07/16/2024 7:07 PM EST ? [facility] ?[address] ?[place] [address] ?XRay Report ? Signed ? Patient: Jenniffer,Celeste ?MR#: [id number] ?? 4 ? : 1945 ?Acct:[id number] ? Age/Sex: 78 / F ?ADM Date: 01/28/25 ? Loc: HO.ED ? Attending Dr: ? Ordering Physician: Rhea Ken ?? Date of Service: 07/16/24 ?? Procedure(s): XR KUB ?? Accession Number(s): [id number] ? cc: Rhea Ken; Name,Eddie GILMORE ? [...] signed by Priscilla Shen MD in OV> ?07/16/247 ? DD/ 06 ? TD/TT: 07/16/241906 ? Machine Operations Supervisor: ? Procedure Note Enejeanieter, Image - 07/16/2024 [place] [address] XRay Report Signed Patient: Celeste AbadMR#: [id number] 4 : 1945cct:[id number] Age/Sex: 78 / FADM Date: 07/16/24 Loc: HO.ED Attending Dr: Ordering Physician: Rhea Ken Date of Service: 07/16/24 Procedure(s): XR KUB Accession Number(s): [id number] cc: Rhea Ken; Name,Eddie GILMORE CLINICAL HISTORY: [...] in OV> 07/16/241906 DD/ 06 TD/TT: 07/16/241906 Machine Operations Supervisor: [facility] External Provider IMG XR PROCEDURES Final Result * SARS-CoV-2 RNA, Influenza A/B, and RSV RNA, Ql NAAT (07/16/2024 7:06 PM EST) Pathologist [facility] Influenza A PCR NEGATIVE Negative [facility] Influenza B PCR NEGATIVE Negative [facility] Resp Syncy Virus RNA Qual PCR NEGATIVE Negative [facility] SARS COV2 PCR NEGATIVE Negative [facility] Comment:All test results mus t [...] use by authorized laboratories.Testing performed on the [employer] GeneXpert utilizingreal-time RT-PCR.All SARS CoV2 and positive influenza A/B results arereported to [facility]. 07/16/2024 7:06 PM EST 07/16/2024 7:11 PM EST us Generic External Data Provider LAB MICROBIOLOGY - GENERAL ORDERABLES Final Result [facility] [address] [place] [phone] * (ABNORMAL) CBC auto differential (07/16/2024 7:06 PM EST) Pathologist [facility] White Blood Count 10.1 4.8 - 10.8 X10*3/uL [facility] Red Blood Count 4.68 4.20 - 5.50 X10*6/uL [facility] Hemoglobin 13.3 12.0 - 16.0 g/dl [facility] Hematocrit 40.7 37.0 - 47.0 % [facility] Mean Corpuscular Volume 87.0 80.0 - 98.0 fL [facility] Mean Corpuscular Hemoglobin 28.4 27.0 - 33.0 pg [facility] Mean Corpuscular HGB Conc 32.7 31.0 - 35.0 g/dl [facility] Red Cell Distribution Width 15.0 11.0 - 16.0 % [facility] Platelet Count 272 160 - 400 X10*3/uL [facility] Mean Platelet Volume 9.9 9.4 - 12.3 fL [facility] Neutrophils Percent Auto 74.5(H) 45 - 73 % [facility] Imm Gran Pct Auto 0.3 0.0 - 0.4 % [facility] Lymphocytes Percent Auto 16.3(L) 20 - 40 % [facility] Monocytes Percent Auto 8.0 2 - 11 % [facility] Eosinophils Percent Auto 0.7 0 - 4 % [facility] Basophils Percent Auto 0.2 0 - 2 % [facility] NRBC Pct Auto 0.0 0.0 - 0.2 /100WBC [facility] Neutrophils Absolute Auto 7.6 2.0 - 8.3 x10*3/uL [facility] Imm Gran Abs Auto 0.03 0.00 - 0.03 X10*3/uL [facility] Lymphocytes Absolute Auto 1.7 1.2 - 4.9 X10*3/uL [facility] Monocytes Absolute Auto 0.8 0.1 - 1.2 X10*3/uL [facility] Eosinophils Absolute Auto 0.1 0.0 - 0.4 X10*3/uL [facility] Basophils Absolute Auto 0.0 0.0 - 0.2 X10*3/uL [facility] NRBC Abs Auto 0.000 0.0 - 0.012 X10*3/uL [facility] 07/16/2024 7:06 PM EST 07/16/2024 7:11 PM EST us Generic External Data Provider LAB BLOOD ORDERAB LES Final Result [facility] [address] [place] [phone] * Magnesium (07/16/2024 7:06 PM EST) Magnesium 2.2 1.6 - 2.6 mg/dL [facility] 07/16/2024 7:06 PM EST 07/16/2024 7:11 PM EST us Generic External Data Provider LAB BLOOD ORDERAB LES Final Result Performing Organization Address City/[facility]/ZIP Co de Phone Number [facility] [address] [place] [phone] * Lipase (07/16/2024 7:06 PM EST) Pathologist [facility] Lipase 8 8 - 78 U/L [facility] 07/16/2024 7:06 PM EST 07/16/2024 7:11 PM EST us Generic External Data Provider LAB BLOOD ORDERAB LES Final Result Performing Organization Address [facility] Co de Phone Number [facility] [address] [place] [phone] * (ABNORMAL) Hepatic Function Panel (07/16/2024 7:06 PM EST) [facility] Bilirubin, Total 0.4 0.0 - 1.0 mg/dL [facility] Bilirubin, Direct 0.2 0.0 - 0.5 mg/dL [facility] Aspartate Amino Transferase 37(H) 5 - 31 U/L [facility] Alanine Aminotransferase 27 0 - 31 U/L [facility] Total Protein 7.5 6.5 - 8.0 g/dL [facility] Albumin Level 3.9 3.5 - 5.0 g/dL [facility] Alkaline Phosphatase 136(H) 39 - 117 U/L [facility] 07/16/2024 7:06 PM EST 07/16/2024 7:11 PM EST us Generic External Data Provider LAB BLOOD ORDERAB LES Final Result Performing Organization Address City/[facility]/ZIP Co de Phone Number [facility] [address] [place] [phone] * (ABNORMAL) Basic Metabolic Panel (07/16/2024 7:06 PM EST) Sodium 139 135 - 145 mmol/L [facility] Potassium 4.3 3.3 - 5.1 mmol/L [facility] Chloride 102 96 - 108 mmol/L [facility] Carbon Dioxide 25 22 - 29 mmol/L [facility] Anion Gap 16 12 - 20 [facility] Urea Nitrogen (BUN) 18(H) 9 - 16 mg/dL [facility] Creatinine, Serum 0.73 0.5 - 1.4 mg/dL [facility] Creatinine Clr Calc Pharmacy 58.3 [facility] Comment:Provided height and weight: 157.48 cm,68.039 kg.eGFR (calculated from the MDRD study equation) and eCrCl(calculated from the Cockcroft-Gault equation) are based ondifferent parameters and may not yield comparable results.If eCrCl result is absurd, please check patient'sheight/weight. Estimated Glomerular Filt Rate >60 [facility] Comment:Chronic Kidney Disea se: Estimated GFR < 60 mL/min/1.03c9Ykqdoc Kidney Disease: Estimated GFR < 15 mL/min/1.73m2 Glucose 124(H) 60 - 115 mg/dL [facility] Calcium 9.1 8.4 - 10.2 mg/dL [facility] 07/16/2024 7:06 PM EST 07/16/2024 7:11 PM EST us Generic External Data Provider LAB BLOOD ORDERAB LES Final Result [facility] [address] [place] [phone] * POCT ADRIAN-14 Urine Drug Screen (07/16/2024 1:49 PM EST) Oxycodone Screen, Urine Positive Urine Urine specimen obtained by clean catch procedure / Unknown 07/16/2024 1:49 PM EST Mckenzie Trent SENIOR PRODUCT ENGINEER POINT OF CARE TEST ENTER/EDIT ORDERABLES Final Result * Referral to Orthopaedic Surgery (06/03/2024) us Eddie Marshall MD OUTPATIENT REFERRAL ORDERABLES F inal Result * (ABNORMAL) Lipid Panel, Standard (01/16/2024 9:40 AM EDT) Triglycerides 199(H) <150 mg/dL [facility] Comment:Desirable Triglyceri de: less than 150 mg/dLBorderline High Triglyceride 150-199 mg/dLHigh Triglyceride: 200-499 mg/dLVery High Triglyceride: greater than or equal to 5OO mg/dL Cholesterol 150 <200 mg/dL [facility] Comment:Desirable Cholestero l: less than 200 mg/dLBorderline High Cholesterol: 200-239 mg/dLHigh Cholesterol: greater than 239 mg/dL LDL Cholesterol Calculated 63 <100 mg/dL [facility] Comment:Desirable LDL: less than 100 mg/dLNear Optimal/Above Optimal LDL: 110- 129 mg/dLBorderline High LDL: 130-159 mg/dLHigh LDL: 160-189 mg/dLVery High LDL: greater than or equal to 190 mg/dL HDL Cholesterol 48 >40 mg/dL [facility] Comment:Desirable HDL: great er than 40 mg/dL Note: This HDL assay may give artificially low results in patients with liver disease. Blood Venous blood specimen / Unknown 01/16/2024 9:40 AM EDT 01/16/2024 11:20 AM EDT us Eddie Marshall MD LAB BLOOD ORDERABLES Final Resul t [facility] [address] [place] [phone] * Albumin, Random Urine W/Creatinine (01/16/2024 9:35 AM EDT) Creatinine, Urine 27.62 mg/dL [facility] Microalbumin Urine <5.0 mg/L H [facility] Microalbum Creatinine Ratio Ur TNP <30 ug/mg cr [facility] Comment:Unable to calculate albumin/creatinine ratio due to lowmicroalbumin or creatinine result. Urine (Urine, Random) 01/16/2024 9:35 AM EDT 01/16/2024 11:12 AM EDT us Eddie Marshall MD LAB URINE ORDERABLES Final Resul t [facility] [address] [place] [address] [phone] * Hm Diabetes Eye Exam (05/16/2023) Eye Exam Normal Normal us Eddie Marshall MD HEALTH MAINTENANCE Final Result * (ABNORMAL) Hepatitis Panel, General (11/18/2022 2:07 PM EDT) Hepatitis A Antibody Total REACTIVE( A) NON-REACT NAHID [facility] [place] [facility] Comment: For additional information, please refer to http://WeeWorld.Lexity/faq/XOJ779 (This link is being provided for informational/ educational purposes only.) Hepatitis B Surface Antibody QL NON-REACT NAHID NON-REACT NAHID [facility] Hepatitis B Surface Ag NON-REACT NAHID NON-REACT NAHID [facility]at Hepatitis B Core Antibody Total NON-REACT NAHID NON-REACT NAHID [facility] Hepatitis C Antibody NON-REACT NAHID NON-REACT NAHID [facility] [place] [employer] Index 0.07 <1.00 [facility] Comment: HCV antibody was non-reactive. There is no laboratory evidence of HCV infection. In most cases, no further action is required. However, if recent HCV exposure is suspected, a test for HCV RNA (test code 21033) is suggested. For additional information please refer to http://WeeWorld.Lexity/faq/JID00r4 (This link is being provided for informational/ educational purposes only.) 11/18/2022 2:07 PM EDT 11/18/2022 2:09 PM EDT Narrative [facility] - 11/19/2022 6:51 AM EDT COLLECTION KIT GIVEN TO PATIENT. PATIENT ADVISED TO RETURN. us Mckenzie Pillai SENIOR PRODUCT ENGINEER LAB BLOOD ORDERABLES Final Res ult [facility] [address], [place] [phone] [facility] [address] [place] [phone] from Last 3 Months or Most Recently Relevant to Health Maintenance Insurance [place] [id number] Care Teams Mold Shop Supervisor Relationship Specialty Start Date End Date Name, MD Eddie [address] [place] [address] PCP - General Family Medicine 09/16/15 [place] SEN 07/01/24
--- OUTSIDE RECORDS SUMMARY | 2024-08-28 15:26 | XMS_ITS | Encounter Summary ---
Author Organization [employer] Address [address] [facility] 7t [place] [address] Care Team Providers Care Claims Associate Name Role Phone Name, Eddie GILMORE Primary Care Provider Reason for Visit * Reason Onset Date Comments september recalls 08/09/2024 Encounter Details Date Type Department Care Team ([facility] st Contact Info) Description 08/09/2024 Telephone [facility] [address] [place], [place] [phone] Sophie Marie MA september recalls Social History [...] Description 09/10/2024 9:45 AM EDT Office Visit [facility] [address] [place] [address] 10/29/2024 2:30 PM EDT Office Visit [facility] [address] [place] [address] NameEddie MD [address] [place] [address] documented as of this encounter Visit Diagnoses Not on filedocumented in this encounter Additional Health Concerns Assessment Noted Time PHQ-9 Depression Total Score: 9 05/10/20 24 11:56 AM EST documented as of this encounter Care Teams Claims Associate Relationship Specialty Start Date End Date Eddie Marshall MD [address] [place] [address] PCP - General Family Medicine 09/16/15 Jerica SEN 07/01/24 documented as of this encounter
--- OUTSIDE RECORDS SUMMARY | 2024-08-28 15:26 | XMS_ITS | Encounter Summary ---
Author Organization [employer] Address [address] [place] [address] 7 [place] [address] Care Team Providers Care Customer Operations Associate Name Role Phone Name, Eddie GILMORE Primary Care Provider [phone] Reason for Visit * Reason Onset Date Comments Appointment Request 08/13/2024 Encounter Details Date Type Department Care Team ([facility] st Contact Info) Description 08/13/2024 Telephone [facility] 230 [place], [place] [phone] Name, MD Eddie [address] [place] [address] Appointment Request Social History Tobacco Use Types [...] r/s Apt from 08/13/24. Contact pt at [phone] documented in this encounter Plan of Treatment Upcoming Encounters Date Type Department Care Team (Late st Contact Info) Description 09/10/2024 9:45 AM EDT Office Visit [facility] [place] [address] 10/29/2024 2:30 PM EDT Office Visit [facility] [address] [place] [address] Name, MD Eddie [place] [address] documented as of this encounter Visit Diagnoses Not on filedocumented in this encounter Additional Health Concerns Assessment Noted Time PHQ-9 Depression Total Score: 9 05/10/20 24 11:56 AM EST documented as of this encounter Care Teams Customer Operations Associate Relationship Specialty Start Date End Date Name, MD Eddie [address] [place] [address] PCP - General Family Medicine 09/16/15 Jerica SEN 07/01/24 documented as of this encounter
--- OUTSIDE RECORDS SUMMARY | 2024-08-28 15:26 | XMS_ITS | Encounter Summary ---
Author Organization [employer] Address [address] [facility] 7t [place] [address] Care Team Providers Care Utility Worker Production Name Role Phone Name, Eddie GILMORE Primary Care Provider [phone] Encounter Details Date Type Department Care Team [...] Office Visit [facility] MED[facility]INE [address] [place] [address] 10/29/2024 2:30 PM EDT Office Visit [facility] [address] [place] [address] Name, MD Eddie [address] [place] [address] documented as of this encounter Visit Diagnoses Not on filedocumented in this encounter Additional Health Concerns Assessment Noted Time PHQ-9 Depression Total Score: 9 05/10/20 24 11:56 AM EST documented as of this encounter Care Teams Utility Worker Production Relationship Specialty Start Date End Date NameEddie MD [address] [place] [address] PCP - General Family Medicine 09/16/15 Jerica [facility] 07/01/24 documented as of this encounter
--- OUTSIDE RECORDS SUMMARY | 2024-08-28 15:26 | XMS_ITS | Encounter Summary ---
Author Organization [employer] Address [address] [place] [address] 7 [place] [address] Care Team Providers Care Filling Layer Up Name Role Phone Name, Eddie GILMORE Primary Care Provider [phone] Reason for Visit * Reason Onset Date Comments Med Refill 08/09/2024 Encounter Details Date Type Department Care Team ([facility] st Contact Info) Description 08/09/2024 Refill [facility] 230 [place], [place] [phone] Name, MD Eddie 230 [place], [place] [phone] Chronic pain syndrome Social History Tobacco Use [...] 5-325 MG tablet To be sent to: [facility] documented in this encounter Plan of Treatment Upcoming Encounters Date Type Department Care Team (Late st Contact Info) Description 09/10/2024 9:45 AM EDT Office Visit [facility] [address] [place] [address] 10/29/2024 2:30 PM EDT Office Visit [facility] [address] [place] [address] NameEddie MD [address] [place] [address] documented as of this encounter Visit Diagnoses Diagnosis Chronic pain syndrome documented in this encounter Additional Health Concerns Assessment Noted Time PHQ-9 Depression Total Score: 9 05/10/20 24 11:56 AM EST documented as of this encounter Care Teams Filling Layer Up Relationship Specialty Start Date End Date NameEddie MD [address] [place] [address] PCP - General Family Medicine 09/16/15 Jerica SEN 07/01/24 documented as of this encounter
--- OUTSIDE RECORDS SUMMARY | 2024-08-28 15:26 | XMS_ITS | Encounter Summary ---
Author Organization [facility] [employer] Address [address] [place] [address] 7t [place] [address] Care Team Providers Care Ballet Dancer Name Role Phone NameEddie MD Primary Care Provider [phone] Encounter Details Date Type Department Care Team ([facility] Contact Info) Description 11/18/2022 Abstract [facility] [address] [place] [address] [phone] NameEddie MD [address] [place] [address] [phone] Social History Tobacco Use Types Packs/Day Years [...] Upcoming Encounters Date Type Department Care Team ([facility] Contact Info) Description 09/10/2024 9:45 AM EDT Office Visit [facility] [address] [place] [address] 10/29/2024 2:30 PM EDT Office Visit [address] [phone] Eddie Marshall, MD 230 [place] [address] documented as of this encounter Visit Diagnoses Not on filedocumented in this encounter Care Teams Ballet Dancer Relationship Specialty Start Date End Date Name, MD Eddie 230 [place] [address] PCP - General Family Medicine 09/16/15 Jerica A 07/01/24 documented as of this encounter
--- OUTSIDE RECORDS SUMMARY | 2024-08-28 15:26 | XMS_ITS | Encounter Summary ---
Author Organization [employer] Address [address] [place] [address] [place] [address] Care Team Providers Care Emt B Name Role Phone Name, Eddie GILMORE Primary Care Provider [phone] Reason for Visit * Reason Onset Date Comments Hospital Follow-up 11/10/2022 Encounter Details Date Type Department Care Team (Late st Contact Info) Description 11/10/2022 Refill [facility] 230 [place], [place] [phone] Name, MD Eddie 230 [place] [address] Social History Tobacco Use Types Packs/Day Years [...] Jackman Sent: 11/21/2022 5:23 PM EDT To: [facility] Team Nurses Hi team! Sent this pt to the ED over the weekend for Hgb 7. Got admitted and looks like recently discharged. Can you please outreach her for status check and sched HDF w/ Name? Thank you!! * Telephone Encounter - Suzette Singh RN - 11/22/2022 11:10 AM EDT T/C to [phone] to schedule HDF apt. No answer. LVM to call back on [phone]. ----- Message from Amber Roger RN sent at 11/22/2022 9:06 AM EDT ----- ----- Message ----- From: DENIS Jackman Sent: 11/21/2022 5:23 PM EDT To: [facility] Team Nurses [place] team! Sent this pt to the ED over the weekend for Hgb 7. Got admitted and looks like recently discharged. Can you please outreach her for status check and sched HDF w/ DrRod Name? Thank you!! documented in this encounter Plan of Treatment Upcoming Encounters Date Type Department Care Team (Late st Contact Info) Description 09/10/2024 9:45 AM EDT Office Visit [facility] [address] [place] [address] 10/29/2024 2:30 PM EDT Office Visit [facility] [address] [place] [address] Name, MD Eddie [address] [place] [address] documented as of this encounter Visit Diagnoses Not on filedocumented in this encounter Care Teams Emt B Relationship Specialty Start Date End Date NameEddie MD [address] [place] [address] PCP - General Family Medicine 09/16/15 Jerica SEN 07/01/24 documented as of this encounter
--- OUTSIDE RECORDS SUMMARY | 2024-08-28 15:26 | XMS_ITS | Encounter Summary ---
Author Organization [employer] Address [address] [place] [address] 7t [place] [address] Care Team Providers Care Regional Economic Liaison Name Role Phone Name, Eddie GILMORE Primary Care Provider [phone] Reason for Referral * Consultation (STAT) - Closed Specialty Diagnoses / Procedures Referred By Karyn tyler Referred To Contact Otolaryngology Diagnoses Epistaxis Latanya Hoover MD [address] [place] [address] Phone: tel: fax: [facility] [address] Phone: tel: fax: Referral ID Status Reason Start Date Expiration Date V isits Requested Visits Authorized [id number] Closed Specialty Services Required 08/02/2024 08/02/2025 1 1 Reason for Visit * Reason Comments Hospital Follow-up Encounter Details Date Type Department Care Team (Late st Contact Info) Description 08/02/2024 2:30 PM EST Office Visit [facility] MEDICINE 230 [place], [place] [phone] Latanya Hoover MD 230 [place], [place] [phone] Epistaxis (Primary Dx); Controlled type 2 diabetes mellitus with complication, without long-term current use of insulin (CMS/[facility]); Dietary counseling; Exercise counseling; Overweight; [...] past two weeks. Two ER visits to [facility]. Accompanied by her son- Raymundo Acute Concerns: Severe nose bleeds, enough to become anemic. History of multiple cauterizations, needs ENT referralfor stat visit Humidifier in place in her bedroom, applying antibiotic Hg 13.5- >10.9 Interim Updates: ED f/u with Red team provider for ED f/u as she is not able to come to [facility] due to need to arrange transportation. 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 Velasquez in Endocrinology at [address] and emphysema by Fixture Designer Dr. Rowland at [address] Patient Active Problem List Diagnosis Allergic [...] catheterization Seizure disorder (CMS/HCC) Chronic pain syndrome meterman (current) use of opiate analgesic Atherosclerosis of [...] complication, without long-term current use of insulin ([facility]) Relevant Orders POCT Glucose (Completed) POCT HGB [...] refer stat to ENT for cauterization, possible SLEEVE PRESSER OPERATOR scope Recommend anterior nasal packing if [...] Disp: , Rfl: Blood Glucose Monitoring Suppl ([employer] Verio Flex System) w/Device kit, USE DIRECTED, [...] Disp: 90 tablet, Rfl: 2 glucose blood ([employer] Verio) test strip, CHECK BY FINGERSTICK TWICE DAILY, Disp: 50 strip, Rfl: 11 Homeopathic Products ([employer]) gel, Applied twice daily, Disp: , Rfl: Lancets ([employer] Delica Plus [id number]) misc, USE TO CHECK BLOOD SUGAR TWICE [...] refer stat to ENT for cauterization, possible SLEEVE PRESSER OPERATOR scope Recommend anterior nasal packing if she is bleeding heavily documented in this encounter Plan of Treatment Upcoming Encounters Date Type Department Care Team (Late st Contact Info) Description 09/10/2024 9:45 AM EDT Office Visit [facility] MEDICINE [address] [place] [address] 10/29/2024 2:30 PM EDT Office Visit [facility]INE [address] [place] [address] Name, MD Eddie [address] [place] [address] Scheduled Referrals Name Type Priority Associated Diagnoses Orde r Schedule Referral to ENT Outpatient Referral STAT Epistaxis Expected: 08/02/2024 (Approximate), Expires: 08/02/2025 documented as of this encounter Procedures Procedure Name Priority Date/Time Associated Diagnosis Comments POCT GLYCATED HEMOGLOBIN, TOTAL Routine 08/02/2024 2:14 PM EST Controlled type 2 diabetes mellitus with complication, without long-term current use of insulin ([facility]) POCT GLUCOSE Routine 08/02/2024 2:14 PM EST Controlled type 2 diabetes mellitus with complication, without long-term current use of insulin (CMS/[facility]) documented in this encounter Results * (ABNORMAL) [...] complication, without long-term current use of insulin ([facility]) Dietary counseling Dietary surveillance and counseling Exercise counseling Overweight Anemia, unspecified type documented in this encounter Additional Health Concerns Assessment Noted Time PHQ-9 Depression Total Score: 9 05/10/20 24 11:56 AM EST documented as of this encounter Care Teams Regional Economic Liaison Relationship Specialty Start Date End Date Name, MD Eddie 230 [place] [address] PCP - General Family Medicine 09/16/15 [facility] documented as of this encounter
--- OUTSIDE RECORDS SUMMARY | 2024-08-28 15:26 | XMS_ITS | Encounter Summary ---
Author Organization [employer] Address [address] [place] [address] 7t [place] [address] Care Team Providers Care Breaker Unit Assembler Name Role Phone Name, Eddie GILMORE Primary Care Provider [phone] Encounter Details Date Type Department Care Team [...] 09/10/2024 9:45 AM EDT Office Visit [facility] MEDICINE [address] [place] [address] 10/29/2024 2:30 PM EDT Office Visit [facility] [address] [place] [address] Name, MD Eddie [address] [place] [address] documented as of this encounter Procedures Procedure [...] EST Narrative 08/15/2024 4:55 PM EST ? [facility] ?[address] ?[place] [address] ? Fluoroscopy Report ? Signed ? Patient: Jenniffer,Celeste ?MR#: [id number] ?? 4 ? : 1945 ?Acct:[id number] ? Age/Sex: 78 / F ?ADM Date: 02/26/25 ? Loc: HO.XRAY ? Attending Dr: Julia Li MD ? Ordering Physician: Julia Li MD ?? Date of Service: 08/14/24 ?? Procedure(s): FL barium swallow with air ?? Accession Number(s): [id number] ? cc: Joanna,Eddie GILMORE; Julia Li MD [...] Delvalle PA-C, and supervised by ?? Dr. Shroe ? Electronically signed by: ??Sagar Shore MD ??08/15/2024 04:52 PM EST RP ? Dictated By: ?Devon Delvalle ? Signed By: ?<Electronically signed by Devon Delvalle in OV> ? 08/15/24 1652 ?<Electronically signed by Sagar Shore MD in OV> ? 08/15/24 1654 ? DD/ 0952 ? TD/TT: 08/14/24 1020 ? Air Quality Manager: ? Procedure Note Geoff, Sahil - 08/15/2024 [place] [address] Fluoroscopy Report Signed Patient: Celeste Abad#: [id number] 4 : 1945cct:[id number] Age/Sex: 78 / FADM Date: 08/14/24 Loc: HO.XRAY Attending Dr: Julia Li MD Ordering Physician: Julia Li MD Date of Service: 08/14/24 Procedure(s): FL barium swallow with air Accession Number(s): [id number] cc: Eddie Marshall MD; Julia Li MD [...] by: Sagar Shore MD 08/15/2024 04:52 PM [facility] Dictated By: Devon Delvalle Signed By: <Electronically signed by Devon Delvalle in OV> 08/15/24 1652 <Electronically signed by Sagar Shore MD in OV> 08/15/24 1654 DD/ 0952 TD/TT: 08/14/24 1020 Air Quality Manager: [facility] External Provider IMG FLU OROSCOPY PROCEDURES Final Result * Immunofixation (ALEXANDER), Urine (08/14/2024 9:41 AM EST) Pathologist [facility] ALEXANDER Interpretation SEE NOTE [facility] Comment:Normal pattern. No m onoclonal proteins detected.The supplier of the testing reagents for this assayhas changed. Detection of small monoclonal proteins mayvary by test system.THIS TEST WAS PERFORMED AT:[employer] [place] [phone] PAYNE MD 08/14/2024 9:41 AM EST 08/14/2024 10:39 AM EST Generic External Data Provider LAB URINE ORDERAB LES Final Result [facility] [address] [place] [address] [phone] * (ABNORMAL) Protein, Total and Protein??Electrophoresis (08/14/2024 9:37 AM EST) Prot Elec - Total Protein 6.7 6.1 - 8.1 g/dL [facility] Prot Elec - Albumin 3.2(A) 3.8 - 4.8 g/dL [facility] Prot Elec - Alpha1 0.4(A) 0.2 - 0.3 g/dL [facility] Prot Elec - Alpha2 1.1(A) 0.5 - 0.9 g/dL [facility] Prot Elec - Beta 1 0.5 0.4 - 0.6 g/dL [facility] Prot Elec - Beta 2 0.5 0.2 - 0.5 g/dL [facility] Prot Elec - Gamma 1.0 0.8 - 1.7 g/dL [facility] PES - Abn Protein Band 1 TNP [facility] PES-Abn Protein Band 2 TNP [facility] PES-Abn Protein Band 3 TNP [facility] Prot Elec - Interpretation SEE NOTE [facility] Comment:Evaluation is consis tent with an acute inflammatorypattern.THIS TEST WAS PERFORMED AT:[facility] [place] [phone] PAYNE MD 08/14/2024 9:37 AM EST 08/14/2024 9:41 AM EST Generic External Data Provider LAB BLOOD ORDERAB LES Final Result Performing Organization Address [facility]/ZIP Co de Phone Number [facility] [address] [place] [phone] * (ABNORMAL) Phosphate (As Phosphorus) (08/14/2024 9:37 AM EST) Phosphorus 2.6(L) 2.7 - 4.5 mg/dL [facility] 08/14/2024 9:37 AM EST 08/14/2024 9:41 AM EST Generic External Data Provider LAB BLOOD ORDERAB LES Final Result Performing Organization Address [facility] Co de Phone Number [facility] [address] [place] [phone] documented in this encounter Visit Diagnoses Not on filedocumented in this encounter Additional Health Concerns Assessment Noted Time PHQ-9 Depression Total Score: 9 05/10/20 24 11:56 AM EST documented as of this encounter Care Teams Breaker Unit Assembler Relationship Specialty Start Date End Date Name, MD Eddie [address] [place] [address] PCP - General Family Medicine 09/16/15 [facility] documented as of this encounter
--- OUTSIDE RECORDS SUMMARY | 2024-08-28 15:26 | XMS_ITS | Encounter Summary ---
Author Organization [employer] Address [address] [facility] 7t [place] [address] Care Team Providers Care Vision Therapist Name Role Phone Name, Eddie GILMORE Primary Care Provider [phone] Reason for Visit * Reason Onset Date Comments september recalls 08/09/2024 Encounter Details Date Type Department Care Team ([facility] st Contact Info) Description 08/09/2024 Telephone [facility] MEDICINE 230 [place], [place] [phone] Sophie Marie [place] september recalls Social History [...] Description 09/10/2024 9:45 AM EDT Office Visit [facility] MEDICINE [address] [place] [address] 10/29/2024 2:30 PM EDT Office Visit [address] [address] NameEddie MD [address] [place] [address] documented as of this encounter Visit Diagnoses Not on filedocumented in this encounter Additional Health Concerns Assessment Noted Time PHQ-9 Depression Total Score: 9 05/10/20 24 11:56 AM EST documented as of this encounter Care Teams Vision Therapist Relationship Specialty Start Date End Date Eddie Marshall MD [address] [place] [address] PCP - General Family Medicine 09/16/15 Jerica SEN 07/01/24 documented as of this encounter
--- OUTSIDE RECORDS SUMMARY | 2024-08-28 15:26 | XMS_ITS | Encounter Summary ---
Author Organization [employer] Address [address] [place] [address] 7 [place] [address] Care Team Providers Care Purchase Analyst Name Role Phone Name, Eddie GILMORE Primary Care Provider [phone] Reason for Visit * Reason Comments Med Refill Encounter Details Date Type Department Care Team (Late st Contact Info) Description 08/19/2024 Refill [facility] 230 [place], [place] [phone] Name, MD Eddie 230 [place] [address] Social History Tobacco Use Types Packs/Day Years [...] Description 09/10/2024 9:45 AM EDT Office Visit [address] [address] 10/29/2024 2:30 PM EDT Office Visit [address] [address] NameEddie MD [address] [place] [address] documented as of this encounter Visit Diagnoses Not on filedocumented in this encounter Additional Health Concerns Assessment Noted Time PHQ-9 Depression Total Score: 9 05/10/20 24 11:56 AM EST documented as of this encounter Care Teams Purchase Analyst Relationship Specialty Start Date End Date NameEddie MD [address] [place] [address] PCP - General Family Medicine 09/16/15 Jerica SEN 07/01/24 documented as of this encounter
--- OUTSIDE RECORDS SUMMARY | 2024-08-28 15:26 | XMS_ITS | Encounter Summary ---
Author Organization [employer] Address [address] [place] [address] 7 [place] [address] Care Team Providers Care Slab Grinder Name Role Phone Name, Eddie GILMORE Primary Care Provider [phone] Reason for Visit * Reason Onset Date Comments ER Follow-up 07/30/2024 Encounter Details Date Type Department Care Team ([facility] st Contact Info) Description 07/30/2024 Telephone [facility] MED[facility]INE 230 [place], [place] [phone] Name, MD Eddie 230 [place] [address] ER Follow-up Social History Tobacco Use Types [...] she is not able to come to [facility] due to need to arrange transportation. Pt states she has been diagnosed with level five osteoporosisand emphysema by Dr. Velasquez in Endocrinology at [address] [place] [address] [address] [employer] [address] [address] Rowland at[address] [place] [address]. Pt states both doctors are associated with [facility]. Advised RN will attempt to obtain notes [...] ED visit on : Date: 07/29/24 Hospital: [facility] Seen for: Nose bleed Symptomatic No *if yes message should go to Triage Patient advised will forward to team nurse for follow up Contact pt at [phone] documented in this encounter Plan of Treatment Upcoming Encounters Date Type Department Care Team (Late st Contact Info) Description 09/10/2024 9:45 AM EDT Office Visit [facility] MEDICINE [address] [place] [phone] 10/29/2024 2:30 PM EDT Office Visit [address] [address] Name, MD Eddie [address] [place] [address] documented as of this encounter Visit Diagnoses Not on filedocumented in this encounter Additional Health Concerns Assessment Noted Time PHQ-9 Depression Total Score: 9 05/10/20 24 11:56 AM EST documented as of this encounter Care Teams Slab Grinder Relationship Specialty Start Date End Date Name, MD Eddie [address] [place] [phone] PCP - General Family Medicine 09/16/15 Jerica BURGOSA 07/01/24 documented as of this encounter
--- OUTSIDE RECORDS SUMMARY | 2024-08-28 15:27 | XMS_ITS | Encounter Summary ---
Author Organization [employer] Address [address] [place] [address] 7 [place] [address] Care Team Providers Care Driver Education Road Instructor Name Role Phone Name, Eddie GILMORE Primary Care Provider [phone] Reason for Visit * Reason Onset Date Comments Medication Question 09/05/2023 Encounter Details Date Type Department Care Team ([facility] st Contact Info) Description 09/05/2023 Telephone [facility] MEDICINE [address] [place], [place] [phone] Name, MD Eddie 230 [place] [address] Medication Question Social History Tobacco Use Types [...] Description 09/10/2024 9:45 AM EDT Office Visit [facility] MEDICINE [address] [place] [address] 10/29/2024 2:30 PM EDT Office Visit [facility] MEDICINE [address] [place] [address] Name, MD Eddie [address] [place] [address] documented as of this encounter Visit Diagnoses Not on filedocumented in this encounter Additional Health Concerns Assessment Noted Time PHQ-9 Depression Total Score: 10 11/28/ 023 1:16 PM EDT documented as of this encounter Care Teams Driver Education Road Instructor Relationship Specialty Start Date End Date Name, MD Eddie 230 [place] [address] PCP - General Family Medicine 09/16/15 [place] [facility] 07/01/24 documented as of this encounter
--- OUTSIDE RECORDS SUMMARY | 2024-08-28 15:27 | XMS_ITS | Encounter Summary ---
Author Organization [employer] Address [address] [place] [address] 7t [place] [address] Care Team Providers Care Drum Saw Operator Name Role Phone Name, Eddie GILMORE Primary Care Provider [phone] Encounter Details Date Type Department Care Team (Late st Contact Info) Description 08/26/2024 Orders Only [facility] External Provider, [facility] Social History Tobacco Use Types Packs/Day [...] 9:45 AM EDT Office Visit [facility] MEDICINE [address] [place] [address] 10/29/2024 2:30 PM EDT Office Visit [facility] MEDICINE [address] [place] [address] Name, MD Eddie [address] [place] [address] documented as of this encounter Procedures Procedure Name Priority Date/Time Associated Diagnosis Comments CT CHEST WO CONTRAST Routine 08/27/2024 2:12 PM EDT documented in this encounter Results * CT Chest w/o Contrast (08/27/2024 2:12 PM EDT) Anatomical Region Laterality Modality Body, Chest Computed Tomogra phy 08/27/2024 2:12 PM EDT Narrative 08/27/2024 2:14 PM EDT ? [facility] ?[address] ?[place] [address] ? CT Scan Report ? Signed ? Patient: Jenniffer,Celeste ?MR#: [id number] ?? 4 ? : 1945 ?Acct:[id number] ? Age/Sex: 78 / F ?ADM Date: 03/10/25 ? Loc: HO.CT ? Attending Dr: Maria Esther Blum NP ? Ordering Physician: Maria Esther Blum NP ?? Date of Service: 08/26/24 ?? Procedure(s): CT chest wo IV con ?? Accession Number(s): [id number] ? cc: Name,Eddie GILMORE; Maria Esther Blum NP ? Report Number: ?? [id number]: Total DLP = ??208.00 mGy-cm ? CLINICAL [...] DD/ 1412 ? TD/TT: 08/27/24 1412 ? Building Maintenance Repairer: ? Procedure Note Sahil Tellez - 08/27/[address] [place] [address] [address] Scan Report Signed Patient: Ventura Abad#: [id number] 4 : 7Acct:[id number] Age/Sex: 78 / FADM Date: 08/26/24 Loc: HO.CT Attending Dr: Maria Esther Blum ANALYST [employer]OSPECTING Ordering Physician: Maria Esther Blum NP Date of Service: 08/26/24 Procedure(s): CT chest wo IV con Accession Number(s): [id number] cc: Eddie Marshall MD; Maria Esther Blum NP Report Number: [id number]: Total DLP = 208.00 mGy-cm CLINICAL HISTORY: [...] 08/27/24 1413 DD/ 1412 TD/TT: 08/27/24 141 Building Maintenance Repairer: [facility] External Provider IMG CT PROCEDURES Final Result documented in this encounter Visit Diagnoses Not on filedocumented in this encounter Additional Health Concerns Assessment Noted Time PHQ-9 Depression Total Score: 9 05/10/20 24 11:56 AM EST documented as of this encounter Care Teams Drum Saw Operator Relationship Specialty Start Date End Date Name, MD Eddie 230 [place] [address] PCP - General Family Medicine 09/16/15 [facility] 07/01/24 documented as of this encounter
--- OUTSIDE RECORDS SUMMARY | 2024-08-28 15:27 | XMS_ITS | Encounter Summary ---
Author Organization [employer] Address [address] [place] [address] 7 [place] [address] Care Team Providers Care Associate Professor Of Church Music Name Role Phone Name, Eddie GILMORE Primary Care Provider [phone] Reason for Visit * Reason Comments Med Refill Encounter Details Date Type Department Care Team (Late st Contact Info) Description 05/08/2023 Refill [facility] MEDICINE 230 [place], [place] [phone] Name, MD Eddie 230 [place], [place] [phone] Chronic pain syndrome Social History Tobacco Use [...] Description 09/10/2024 9:45 AM EDT Office Visit [facility] MEDICINE [address] [place] [address] 10/29/2024 2:30 PM EDT Office Visit [address] [address] Name, MD Eddie [address] [place] [address] documented as of this encounter Visit Diagnoses Diagnosis Chronic pain syndrome documented in this encounter Additional Health Concerns Assessment Noted Time PHQ-9 Depression Total Score: 10 023 1:16 PM EDT documented as of this encounter Care Teams Associate Professor Of Church Music Relationship Specialty Start Date End Date NameEddie MD [address] [place] [address] PCP - General Family Medicine 09/16[facility]15 [facility] documented as of this encounter
--- OUTSIDE RECORDS SUMMARY | 2024-08-28 15:27 | XMS_ITS | Encounter Summary ---
Author Organization [employer] Address [address] [place] [address] 7 [place] [address] Care Team Providers Care Bell Hole Digger Name Role Phone Name, Eddie GILMORE Primary Care Provider [phone] Reason for Visit * Reason Onset Date Comments Active Med List 06/28/2023 Encounter Details Date Type Department Care Team ([facility] st Contact Info) Description 06/28/2023 Telephone [facility] MEDICINE 230 [place], [place] [phone] Name, MD Eddie 230 [place] [address] Active Med List Social History Tobacco Use [...] Be requesting a updated active medication list marine underwriter did attempt to transfer to Medical records so that she can obtain this information but they kept transferring back to the call center. [facility] [address], [place] [phone] documented in this encounter Plan of Treatment Upcoming Encounters Date Type Department Care Team (Late st Contact Info) Description 09/10/2024 9:45 AM EDT Office Visit [facility] MEDICINE [address] [place] [address] 10/29/2024 2:30 PM EDT Office Visit [facility] MEDICINE [address] [place] [address] Name, MD Eddie [address] [place] [address] documented as of this encounter Visit Diagnoses Not on filedocumented in this encounter Additional Health Concerns Assessment Noted Time PHQ-9 Depression Total Score: 10 023 1:16 PM EDT documented as of this encounter Care Teams Bell Hole Digger Relationship Specialty Start Date End Date Name, MD Eddie 230 [place] [address] PCP - General Family Medicine 09/16/15 [place] [facility] 07/01/24 documented as of this encounter
--- OUTSIDE RECORDS SUMMARY | 2024-08-28 15:27 | XMS_ITS | Encounter Summary ---
Author Organization [employer] Address [address] [place] [address] 7 [place] [address] Care Team Providers Care Legal Recovery Specialist Name Role Phone Name, Eddie GILMORE Primary Care Provider [phone] Reason for Visit * Reason Comments Med Refill Encounter Details Date Type Department Care Team (Late st Contact Info) Description 06/18/2023 Refill [facility] MEDICINE 230 [place], [place] [phone] Name, MD Eddie 230 [place], [place] [phone] Chronic pain syndrome Social History Tobacco Use [...] EDT Office Visit [facility] MEDICINE [address] [place] [address] 10/29/2024 2:30 PM EDT Office Visit [address] [address] Name, MD Eddie [address] [place] [address] documented as of this encounter Visit Diagnoses Diagnosis Chronic pain syndrome documented in this encounter Additional Health Concerns Assessment Noted Time PHQ-9 Depression Total Score: 10 023 1:16 PM EDT documented as of this encounter Care Teams Legal Recovery Specialist Relationship Specialty Start Date End Date NameEddie MD [address] [place] [address] PCP - General Family Medicine 09/16[facility]15 [facility] documented as of this encounter
--- OUTSIDE RECORDS SUMMARY | 2024-08-28 15:27 | XMS_ITS | Encounter Summary ---
Author Organization [employer] Address [address] [place] [address] [place] [address] Care Team Providers Care Or Assistant Name Role Phone NameEddie MD Primary Care Provider [phone] Reason for Visit * Reason Comments Med Refill Encounter Details Date Type Department Care Team (Late st Contact Info) Description 01/29/2023 Refill [facility] MEDICINE [address] [place] [address] [phone] Farhana Singh FNP [address] [place] [address] Dept [place] [address] Social History Tobacco Use Types Packs/Day Years [...] Description 09/10/2024 9:45 AM EDT Office Visit [facility] MEDICINE [address] [place] [address] [phone] 10/29/2024 2:30 PM EDT Office Visit [facility] MEDICINE [address] [place] [address] [phone] Name, MD Eddie [address] [place] [address] documented as of this encounter Visit Diagnoses Not on filedocumented in this encounter Additional Health Concerns Assessment Noted Time PHQ-9 Depression Total Score: 10 11/28/ 023 1:16 PM EDT documented as of this encounter Care Teams Or Assistant Relationship Specialty Start Date End Date Name, MD Eddie 230 [place] [address] PCP - General Family Medicine 09/16/15 [place] [facility] 07/01/24 documented as of this encounter
--- OUTSIDE RECORDS SUMMARY | 2024-08-28 15:27 | XMS_ITS | Encounter Summary ---
Author Organization [employer] Address [address] [place] [address] 7t [place] [address] Care Team Providers Care Road Train Driver Name Role Phone Name, Eddie GILMORE Primary Care Provider [phone] Encounter Details Date Type Department Care Team ([facility] st Contact Info) Description 12/07/2022 Telephone [facility] MEDICINE 230 [place], [place] [phone] Name, MD Eddie 230 [place] [address] Social History Tobacco Use Types Packs/Day Years [...] update PCP now. Ordering provider Pierce Pillai CARD LACER JACQUARD Follow with genaro as indicated. Results faxed at time of call to [phone]. Ref.# [id number] C documented in this encounter Plan of Treatment Upcoming Encounters Date Type Department Care Team (Late st Contact Info) Description 09/10/2024 9:45 AM EDT Office Visit [facility] MEDICINE [address] [place] [address] 10/29/2024 2:30 PM EDT Office Visit [address] [address] Name, MD Eddie [address] [place] [address] documented as of this encounter Visit Diagnoses Not on filedocumented in this encounter Additional Health Concerns Assessment Noted Time PHQ-9 Depression Total Score: 10 023 1:16 PM EDT documented as of this encounter Care Teams Road Train Driver Relationship Specialty Start Date End Date Name, MD Eddie [address] [place] [address] PCP - General Family Medicine 09/16/15 [facility] 07/01/24 documented as of this encounter
--- OUTSIDE RECORDS SUMMARY | 2024-08-28 15:27 | XMS_ITS | Continuity of Care Document ---
Author Organization [place] [facility], [facility] Address [address] [place] [phone] Assessment No assessment recorded. Plan of Treatment [...] Organization Details Recorded Time Essential hypertens ion 35920917 Active 2014 Essential (primary) hypertensi on; Note: Date Diagnosed: 05/07/2015 9:43 AM (I10) Not Available [facility] 4 02:37:47 Bleeding from nose 503484452 Active 2014 Epistaxis; Note: Date Diagnosed: 05/07/2015 9:43 AM (R04.0) Not Available [facility] 4 02:37:50 Anterior epistaxis 586630276 Active 2024 YANIV GARCIA MD [address] [place] [address], [phone] , [place] [facility] 5 12:32:29 Problem Notes None recorded. Procedures Surgical History Date Name Laterality Status Provider Name and Address Organization Details Recorded Time 5 Epistaxis Simple Nasal Cautery Right completed YANIV GARCIA MD [address] [place] [address], [phone], [place] [facility] 08/11/2024 12:31:38 Imaging Results None recorded. Procedure Notes None recorded. Medical Equipment None Reported. Allergies Allergen ID Allergen Name Allergen Category Reaction Reaction Severity Criticality Documentation Date Start Date Code Code System Note Provider Name and Address Organization Details Recorded Time 59447 atorvasta tin medicatio n other Not available Not available 10/31/2023 63523 RxNorm React ion: unkno wn, unspe cifie d;; Not Available [facility] 4 00:59:20 Medications Name Sig Start [...] 24 hr 08/09 completed Medicati on ID: [id number] D uration Value: 90 Brand Name: oxybutyn in chloride Send Method: E-Prescr ibed Sub s Allowed: subs OK Speci al Instruct ion: TAKE 1 TABLET BY MOUTH EVERY DAY Medi cationGe nericNam e: oxybutyn in chloride Not Available Not Available Not Available Patanol 0.1 % eye drops 08/09 completed Medicati on ID: 100595 B rand Name: Patanol Send Method: E-Prescr [...] layed release 08/09 completed Medicati on ID: 760582 B rand Name: aspirin Send Method: E-Prescr ibed Sub s Allowed: subs OK Medic ationGen ericName : aspirin Not Available Not Available Not Available tramadol 50 mg tablet 2014 active Medicati on ID: 095234 D uration Value: 28 Brand Name: tramadol Send Method: E-Prescr ibed Sub s Allowed: subs OK Speci al Instruct ion: TAKE 1 TABLET BY MOUTH EVERY 8 HOURS NEEDED FOR PAIN Med icationG enericNa me: tramadol Not Available Not Available Not Available nortripty line 25 mg capsule 08/09 completed Medicati on ID: 665199 D uration Value: 90 Brand Name: nortript yline Se nd Method: E-Prescr ibed Sub s Allowed: subs OK Speci al Instruct ion: TAKE 3 CAPSULES BY MOUTH AT BEDTIME Medicati onGeneri cName: nortript yline Not Available Not Available Not Available levothyro xine 100 mcg tablet 08/09 completed Medicati on ID: 746730 D uration Value: 90 Brand Name: levothyr [...] elayed release 2014 active Medicati on ID: 375121 D uration Value: 90 Brand Name: omeprazo [...] spray,tawny pension 2013 active Medicati on ID: 126503 D uration Value: 30 Brand Name: fluticas one Send Method: E-Prescr ibed Sub s Allowed: subs OK Speci al Instruct ion: SPRAY 2 SPRAYS INTO EACH NOSTRIL DAILY Me dication GenericN delmi: fluticas one Not Available Not Available Not Available loratadin e 10 mg tablet 08/09 completed Medicati on ID: 321632 D uration Value: 30 Brand Name: loratadi [...] 500 mg tablet active Medicati on ID: 956939 B rand Name: Tylenol Extra Strength Send [...] Reported. Medical History Condition Response Heart Attack ([place]) Y Anemia Y Stroke Y Hypertension Y Asthma Y Gynecological HistoryNo gynecological history recorded. Obstetrics History GPAL:G 0 P 0 0 0 0 Past Encounters Encounter ID Performer Location Encounter Start Date Encounter Closed Date Diagnosis/Indication Diagnosis SNOMED-CT Code Diagnosis ICD10 Code Diagnosis Note [id number] YANIV GARCIA MD [facility] [address] [address] 08/09/2024 09:39:15 08/09/2024 11:07:17 Anterior epistaxis 599575655 R04.0 78-year-ol d female with a history [...] for cautery on the left. Essential hypertension 68956044 I10 Long-term current use of antiplatelet drug [id number] 94536 Z79.02 Health Concerns Section Related Observation LastModified by Organization Detai ls LastModified Time None Recorded Concern Status LastModified by Organization Details LastModified Time None Recorded Payers Encounter Date Sequence Insurance Name Policy Number Policy Zapata Covered Member ID Zapata Member ID Guarantor Name 08/09/2024 1 [employer] (MEDICAID HMO) Celeste Abad [id number] Celeste Abad Notes Date Note Type Note [...] able to stop them YANIV GARCIA MD [address] [place] [address],[place] [address], [place], [address], [place] [facility] 08/11/2024 12:36:32 OBGyn Episode No OBEpisode recorded.
--- OUTSIDE RECORDS SUMMARY | 2024-08-28 15:27 | XMS_ITS | Encounter Summary ---
Author Organization [employer] Address [address] [place] [address] 7 [place] [address] Care Team Providers Care District Manager In Training Name Role Phone Name, Eddie GILMORE Primary Care Provider [phone] Reason for Visit * Reason Comments Med Refill Encounter Details Date Type Department Care Team (Late Contact Info) Description 01/04/2023 Refill [facility] MEDICINE [address] [place] [phone] Name, MD Eddie 230 [place] [address] Gastroesophageal reflux disease, unspecified whether esophagitis present [...] Description 09/10/2024 9:45 AM EDT Office Visit [facility] MEDICINE [address] [place] [address] 10/29/2024 2:30 PM EDT Office Visit [facility] MEDICINE [address] [place] [address] Name, [place] [address] documented as of this encounter Visit Diagnoses Diagnosis Gastroesophageal reflux disease, unspecified whether esophagitis present documented in this encounter Additional Health Concerns Assessment Noted Time PHQ-9 Depression Total Score: 10 023 1:16 PM EDT documented as of this encounter Care Teams District Manager In Training Relationship Specialty Start Date End Date Name, MD [place] [address] PCP - General Family Medicine 09/16/15 [place] A 07/01/24 documented as of this encounter
--- OUTSIDE RECORDS SUMMARY | 2024-08-28 15:27 | XMS_ITS | Encounter Summary ---
Author Organization [employer] Address [address] [place] [address] 7 [place] [address] Care Team Providers Care Conference Reservationist Name Role Phone Name, Eddie GILMORE Primary Care Provider [phone] Reason for Visit * Reason Comments Med Refill Encounter Details Date Type Department Care Team (Late Contact Info) Description 12/01/2022 Refill [facility] MEDICINE 230 [place], [place] [phone] Name, MD Eddie 230 [place] [address] Controlled type 2 diabetes mellitus with complication, without long-term current use of insulin ([facility]) Social History Tobacco Use Types Packs/Day Years [...] Description 09/10/2024 9:45 AM EDT Office Visit [facility] [place] [address] 10/29/2024 2:30 PM EDT Office Visit [facility] [place] [address] Name, [place] [address] documented as of this encounter Visit Diagnoses Diagnosis Controlled type 2 diabetes mellitus with complication, without long-term current use of insulin ([facility]) documented in this encounter Additional Health Concerns Assessment Noted Time PHQ-9 Depression Total Score: 10 023 1:16 PM EDT documented as of this encounter Care Teams Conference Reservationist Relationship Specialty Start Date End Date Name, [place] [address] PCP - General Family Medicine 09/16/15 [place] [facility] 07/01/24 documented as of this encounter
--- OUTSIDE RECORDS SUMMARY | 2024-08-28 15:27 | XMS_ITS | Encounter Summary ---
Author Organization [employer] Address [address] [place] [address] [place] [address] Care Team Providers Care Wood Handler Name Role Phone NameEddie MD Primary Care Provider [phone] Reason for Visit * Reason Comments Med Refill Encounter Details Date Type Department Care Team (Late Contact Info) Description 02/26/2023 Refill [facility] MEDICINE [address] [place] [address] [phone] Eddie Marshall MD [address] [place] [address] [phone] Chronic pain syndrome Social History Tobacco Use [...] Description 09/10/2024 9:45 AM EDT Office Visit [facility] MEDICINE [address] [place] [address] [phone] 10/29/2024 2:30 PM EDT Office Visit [address] [phone] Eddie Marshall MD 230 [place] [address] documented as of this encounter Visit Diagnoses Diagnosis Chronic pain syndrome documented in this encounter Additional Health Concerns Assessment Noted Time PHQ-9 Depression Total Score: 10 023 1:16 PM EDT documented as of this encounter Care Teams Wood Handler Relationship Specialty Start Date End Date Name, MD Eddie 230 [place] [address] PCP - General Family Medicine 09/16/15 [place] A 07/01/24 documented as of this encounter
--- OUTSIDE RECORDS SUMMARY | 2024-08-28 15:27 | XMS_ITS | Encounter Summary ---
Author Organization [employer] Address [address] [place] [address] 7 [place] [address] Care Team Providers Care Technical Mgr Name Role Phone Name, Eddie GILMORE Primary Care Provider [phone] Reason for Visit * Reason Onset Date Comments Medication Question 09/01/2023 Encounter Details Date Type Department Care Team ([facility] st Contact Info) Description 09/01/2023 Telephone [facility] MEDICINE 230 [place], [place] [phone] Name, MD Eddie 230 [place] [address] Medication Question Social History Tobacco Use Types [...] an add on. Please contact pharmacy at [phone]. documented in this encounter Plan of Treatment Upcoming Encounters Date Type Department Care Team (Late st Contact Info) Description 09/10/2024 9:45 AM EDT Office Visit [facility] [place] [address] 10/29/2024 2:30 PM EDT Office Visit [facility] [place] [address] Name, [place] [address] documented as of this encounter Visit Diagnoses Not on filedocumented in this encounter Additional Health Concerns Assessment Noted Time PHQ-9 Depression Total Score: 10 023 1:16 PM EDT documented as of this encounter Care Teams Technical Mgr Relationship Specialty Start Date End Date Name, MD Eddie [facility] [place] [address] PCP - General Family Medicine 09/16/15 [place] [facility] 07/01/24 documented as of this encounter
--- OUTSIDE RECORDS SUMMARY | 2024-08-28 15:27 | XMS_ITS | Encounter Summary ---
Author Organization [employer] Address [address] [place] [address] 7 [place] [address] Care Team Providers Care Line Installer Trolley Name Role Phone Name, Eddie GILMORE Primary Care Provider [phone] Reason for Visit * Reason Onset Date Comments Referral 02/02/2023 Back dated refer ral Encounter Details Date Type Department Care Team ([facility] st Contact Info) Description 02/02/2023 Telephone [facility] [address] [place], [place] [phone] Name, MD Eddie [address] [place] [address] Referral (Back dated referral ) Social History [...] 1:40 PM EDT Tc from Kasie at [facility] requesting status on message below regarding referral. Fax number [phone]. Any questions please call [phone] * Telephone Encounter - Amber Roger RN - 02/03/2023 10:34 AM EDT Please review message below regarding backdated referral for these dates * Telephone Encounter - Laure Mcgill - 02/02/2023 2:07 PM EDT Tc from Kasie at [facility] calling in regards to referral needing to be back dated. Patient was seen at the office on 01/03/23 and 01/11/23. Fax number [phone]. Any questions please call [phone]. documented in this encounter Plan of Treatment Upcoming Encounters Date Type Department Care Team (Late st Contact Info) Description 09/10/2024 9:45 AM EDT Office Visit [facility] [address] [place] [phone] 10/29/2024 2:30 PM EDT Office Visit [facility] [address] [place] [phone] Name, MD Eddie [address] [place] [phone] documented as of this encounter Visit Diagnoses Not on filedocumented in this encounter Additional Health Concerns Assessment Noted Time PHQ-9 Depression Total Score: 10 023 1:16 PM EDT documented as of this encounter Care Teams Line Installer Trolley Relationship Specialty Start Date End Date Name, MD Eddie [address] [place] [phone] PCP - General Family Medicine 09/16/15 Jerica SEN 07/01/24 documented as of this encounter
--- OUTSIDE RECORDS SUMMARY | 2024-08-28 15:27 | XMS_ITS | Encounter Summary ---
Author Organization [employer] Address [address] [place] [address] [address] [place] [address] Care Team Providers Care Dowel Inspector Name Role Phone Name, Eddie GILMORE Primary Care Provider [phone] Encounter Details Date Type Department Care Team [...] Description 09/10/2024 9:45 AM EDT Office Visit [facility] [address] [place] [phone] 10/29/2024 2:30 PM EDT Office Visit [facility] [address] [place] [phone] Name, MD Eddie [address] [place] [phone] documented as of this encounter Procedures Procedure Name Priority Date/Time Associated Diagnosis Comments IRON AND TOTAL IRON BINDING CAPACITY Routine 08/27/2024 1:25 PM EDT CBC Routine 08/27/2024 1:25 PM EDT FERRITIN Routine 08/27/2024 1:25 PM EDT documented in this encounter Results * Ferritin (08/27/2024 1:25 PM EDT) Ferritin 35 10 - 250 ng/mL [facility] 08/27/2024 1:25 PM EDT 08/27/2024 1:25 PM EDT us Generic External Data Provider LAB BLOOD ORDERAB LES Final Result [facility] [address] [place] [phone] [phone] * (ABNORMAL) Iron And Total Iron Binding Capacity (08/27/2024 1:25 PM EDT) Iron 14(L) 30 - 160 mcg/dL [facility] Total Iron Binding Capacity 295 228 - 428 mcg/dL [facility] Percent Iron Saturation 5(L) 15 - 50 % [facility] Unsaturated Iron Binding 281 ug/dL [facility] 08/27/2024 1:25 PM EDT 08/27/2024 1:25 PM EDT us Generic External Data Provider LAB BLOOD ORDERAB LES Final Result [facility] [address] [place] [phone] * (ABNORMAL) CBC (08/27/2024 1:25 PM EDT) Pathologist [facility] White Blood Count 9.0 4.8 - 10.8 X10*3/uL [facility] Red Blood Count 4.06(L) 4.20 - 5.50 X10*6/uL [facility] Hemoglobin 10.0(L) 12.0 - 16.0 g/dl [facility] Hematocrit 33.1(L) 37.0 - 47.0 % [facility] Mean Corpuscular Volume 81.5 80.0 - 98.0 fL [facility] Mean Corpuscular Hemoglobin 24.6(L) 27.0 - 33.0 pg [facility] Mean Corpuscular HGB Conc 30.2(L) 31.0 - 35.0 g/dl [facility] Red Cell Distribution Width 16.3(H) 11.0 - 16.0 % [facility] Platelet Count 393 160 - 400 X10*3/uL [facility] Mean Platelet Volume 9.4 9.4 - 12.3 fL [facility] NRBC Pct Auto 0.0 0.0 - 0.2 /100WBC [facility] NRBC Abs Auto 0.000 0.0 - 0.012 X10*3/uL [facility] 08/27/2024 1:25 PM EDT 08/27/2024 1:25 PM EDT us Generic External Data Provider LAB BLOOD ORDERAB LES Final Result [facility] [address] [place] [phone] documented in this encounter Visit Diagnoses Not on filedocumented in this encounter Additional Health Concerns Assessment Noted Time PHQ-9 Depression Total Score: 9 05/10/20 24 11:56 AM EST documented as of this encounter Care Teams Dowel Inspector Relationship Specialty Start Date End Date Name, MD Eddie [address] [place] [address] PCP - General Family [facility] documented as of this encounter
== END 2024-08-28 14:17 | disposition home or self-care (01) ==
LOC: HO.HPSW 13:09
PROVIDERS: PCP Internal Medicine Geriatric Medicine; Visit Provider Nurse Practitioner Family
DX: J44.9 Chronic obstructive pulmonary disease, unspecified (principal); J43.9 Emphysema, unspecified; Z87.891 Personal history of nicotine dependence; R91.8 Other nonspecific abnormal finding of lung field
CPT/HCPCS: 99214

== ENCOUNTER → 2024-08-28 13:09 | Outpatient (BNVA) | payer MEDICARE, SELFPAY | PROVIDERS: PCP Internal Medicine Geriatric Medicine; Visit Provider Nurse Practitioner Family | DX: J44.9 Chronic obstructive pulmonary disease, unspecified (principal); J43.9 Emphysema, unspecified; R91.8 Other nonspecific abnormal finding of lung field; Z87.891 Personal history of nicotine dependence | CPT/HCPCS: 99212 ==

== ENCOUNTER 2024-09-02 09:37 | Outpatient (AMB) | payer MEDICARE, SELFPAY ==
--- NOTE | 2024-09-02 09:48 | A.OFFVIS_ITS ---
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 Li Ref. Intake Note: pt refused weight. Weight given by pt. pts meds updated per list given by pt. Allergies scallops Allergy (Verified 09/02/24 14:06) Unknown Medication List - Last Reconciled 09/02/24 by Nav Rincon MD albuterol sulfate 90 mcg/actuation 2 puffs inhalation Q4H PRN amlodipine 2.5 mg PO DAILY 90 days atorvastatin 40 mg PO DAILY betamethasone valerate 0.1% 1 appl topical DAILY biotin 5 mg PO DAILY clopidogrel 75 mg PO DAILY ferrous sulfate (Iron (ferrous sulfate)) 325 mg PO DAILY fluticasone furoate-vilanterol 200-25 mcg/dose (Breo Ellipta) 1 inh inhalation DAILY fluticasone propion-salmeterol 115-21 mcg/actuation (Advair HFA) 2 puffs inha lation Q12H latanoprost 0.005% 1 drp ophthalmic (eye) BEDTIME levetiracetam (Keppra) 750 mg PO BID levothyroxine 112 mcg PO DAILY lidocaine HCl 2% 1 appl topical .at bedtime 4 weeks magnesium 500 mg PO DAILY melatonin mg PO metformin 500 mg PO BID milk thistle 500 mg PO BID mirabegron ER (Myrbetriq) 50 mg PO DAILY omeprazole 20 mg PO DAILY oxycodone-acetaminophen 5-325 mg 1 tab PO BID PRN pantoprazole 40 mg PO BID peg 400-propylene glycol (PF) 0.4-0.3 % (Systane (PF)) 1 drp ophthalmic (eye) BID simethicone 125 mg PO TID PRN trospium ER 60 mg PO DAILY wheat dextrin (Benefiber Sugar Free (dextrin)) 1.5 grams PO BID HPI Comments Details: The patient has a large paraesophageal hernia associated with anemia, chest pain and severe GERD, that wakes her up from her sleep Reviewed: CT-chest 08/2024: large paraesophageal hernia UGI (06/2024: severe GERD with large paraesophageal hernia Nuclear stress test (2021): fixed defect PFTs: (07/2024): Normal FEV1/FVC, reduced DLCO PFSH Medical History (Updated 09/02/24 @ 14:25 by Nav Rincon MD) Paraesophageal hernia Osteoporosis Lower GI bleed Rectal bleed Anemia Stable angina Essential hypertension CVA (cerebral vascular accident) CAD (coronary artery disease) Surgical History Status post cardiac catheterization History of cardiac cath History of adenoidectomy Hx of tonsillectomy Hx of hernia repair History of section History of cholecystectomy History of appendectomy Family History Mother Cancer Father Heart attack Social History Household Members: Children Housing: House Do you presently have visiting nurse or other home services: Yes Alcohol intake: never Patient Tobacco Use Status: Former Tobacco user Years Smoked: 30 +/- e-Cigarette/Vaping Use: Never Used Second Hand Smoke Exposure: No Substance Use Type: IV Drugs service: No Current occupational status: retired Current occupation: right hand dominant Physical Exam Vital Signs: Last Vital Signs Temp 98.4 F 09/02/24 09:53 Pulse 92 09/02/24 09:53 BP 112/57 L 09/02/24 09:53 Pulse Ox 93 09/02/24 09:53 Oxygen Delivery Method Room Air 09/02/24 09:53 BMI result Body Mass Index 26.5 GI Inspection: Yes normal to inspection (Gynecoid) and Yes incision (well healed) Palpation (GI): Soft to palpation Extrem Right lower extremity: normal to inspection Left lower extremity: normal to inspection Assessment & Plan Assessment & Plan (1) Paraesophageal hernia: Code(s): K44.9 - Diaphragmatic hernia without obstruction or gangrene Category: Medical Plan: 1. We discussed the potential etiology of the hernia. We discussed the details of the diaphragmatic hernia repair and the potential technical challenges such as being able to achieve enough mobilization of the esophagus back in the abdomen and being able to close the diaphragmatic muscle (crura) primarily with sutures. We also discussed the possibility of using a biologic mesh to close the hernia defect if the crura cannot be adequately re-approximated primarily with sutures. We also discussed the option of doing a gastropexy or a fundoplication to prevent postoperative reflux and prevent hernia recurrence. As we discussed, I favor the gastropexy as the fundoplication can cause several distrurbing symptoms such as gas-bloating, flatulence, inability to burp which can be bothersome to patients. Also we discussed the complexity of a potential hernia recurrence in association with a hernia recurrence. She was in agreement not to have a fundoplication. We also discussed that after surgery, she will need to be on a liquid diet with protein shakes the first week. The second week will add protein bars and soft foods and after the third week we will introduce small amounts of regular food. The transition to normal eating habits will take about 6 weeks which is the time required for the repair to heal completely. 2. Please change the nutritional plan to 3 PREMIER protein shakes (4oz of Premier with 4 oz almond milk) at 7am-9am, 10am-12pm and 1pm-3pm, dinner at 4pm (6 forks of protein and 6 forks of salad or vegetables, or rice, or potatoes) and one more shake after dinner at 6pm-8pm 3. Please send me your weight weekly starting tomorrow 4. Send me a picture of your meal plate as of tomorrow 5. To be scheduled for EGD due to the history of diaphragmatic hernia, severe GERD and anemia. The possibility of biopsies was discussed. Patient needs to avoid use of NSAIDs and aspirin for 1 week prior to EGD. You must be on liquids only the day before your endoscopy. Risks of perforation and bleeding was discussed with the patient. This will be an outpatient procedure with IV sedation. At the same time we will do an iron infusion. 6. We will arrange appointments with Dr. Trivedi (Cardiology) and Dr. Garcia (Pulmonary) to provide clearances.
[2024-09-02 09:53] VITALS: BP 112/57; PULSE 92; TEMP 36.9; O2SAT 93; BMI 26.5
--- OUTSIDE RECORDS SUMMARY | 2024-09-02 10:32 | XMS_ITS | Clinical Summary ---
Author Organization [employer] Address [address] [place] [address] [address] [place] [address] Care Team Providers Care Racing Secretary Name Role Phone Name, Eddie GILMORE Primary Care Provider [phone] Allergies Active Allergy Reactions Criticality Noted Date [...] 06/01/20 22 Active Blood Glucose Monitoring Suppl ([employer] Verio Flex System) w/Device kit USE DIRECTED [...] in the morning. 01/10/20 23 Active Lancets (Nallatechuch Delica Plus [id number]) miscIndications :Controlled type 2 diabetes mellitus with complication, without long-term current use of insulin ([facility]) USE TO CHECK BLOOD SUGAR TWICE A DAY 100 each 5 09/15/19 24 Active glucose blood ([employer]uch Verio) test stripIndication s:Controlled type 2 diabetes [...] refer stat to ENT for cauterization, possible EYEGLASS LENS GENERATOR scope Recommend anterior nasal packing if she is bleeding heavily half-way (current) use of opiate analgesic 03/20 Overview (07/17/2024): Dx: chronic pain syndrome/back pain Rx: Percocet 5/325 every 12 hours Last LPN OR MEDICAL ASSISTANT agreement:03/22/24 Tier II (visit every 3 months) [...] that is chronic 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 She understands this is the chronic [...] Provider, Generic External Data 08/26/2024 Orders Only [facility] External Provider, [facility] 08/19/2024 Refill [facility] [place] [address] Eddie Marshall MD 08/14/2024 Orders Only GENERIC EXTERNAL DATA DEPARTMENT Provider, Generic External Data 08/13/2024 Telephone [facility] [place] [address] Eddie Marshall MD Appointment Request 08/09/[address] [address] Sophie Marie MA september recalls 08/09/2024 Telephone [facility] [place] [address] Sophie Marie MA september recalls 08/09/2024 Refill [facility] [place] [address] Eddie Marshall MD Chronic pain syndrome 08/02/2024 2:30 PM EST Office Visit [facility] [place] [address] Latanya Hoover MD Epistaxis (Primary Dx); Controlled type 2 diabetes mellitus with complication, without long-term current use of insulin ([facility]); Dietary counseling; Exercise counseling; Overweight; Anemia, unspecified type 08/02/2024 Travel 07/30/2024 Telephone [facility] [place] [address] Eddie Marshall MD ER Follow-up 07/23/2024 9:00 AM EST Office Visit [facility] [place] [address] Kelly Montoya MD Chronic pain syndrome (Primary Dx) 07/23/2024 Travel 07/17/2024 Refill [facility] [address] [place] [phone] Name, MD Eddie 07/16/2024 9:45 AM EST Office Visit [facility] [address] [place] [address] Mckenzie Trent FNP Chronic pain syndrome (Primary Dx); 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 07/16/2024 9:15 AM EST Office Visit [facility] [address] [place] [address] Kelly Montoya MD Chronic pain syndrome (Primary Dx) 07/16/2024 Orders Only [facility] External Provider, [facility] 07/16/2024 Travel 07/12/2024 Refill [facility] [address] [place] [address] NameEddie MD 07/12/2024 Refill [facility] [address] [place] [address] NameEddie MD Chronic pain syndrome 07/02/2024 Telephone [facility] [address] [place] [address] NameEddie MD 06/10/2024 Telephone [facility] [address] [place] [address] Eddie Marshall MD Med Refill 06/10/2024 Refill [facility] [address] [place] [address] 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, stone sandblaster pain syndrome from Last 3 Months Immunizations Name Administration Dates Next Due Influenza injectable quadriv alent IIV4 with preservative 04/07/2016 Influenza, IIV3, injectable 03/23/2015,1 ,03/08/2013,04/06,05/01/2008,04/19/2007,05/10/2006 ,03/15/2005 Novel [id number], preservative-free 05/22/2009 Pneumococcal Polysaccharide PPSV23 07/11/2013, TD [...] your housing situation today? I have abad yuliana 02/05/[address] you li [...] Description 09/10/2024 9:45 AM EDT Office Visit [facility] [address] [place] [phone] 10/29/2024 2:30 PM EDT Office Visit [facility] [address] [place] [address] [phone] Name, MD Eddie [address] [place] [phone] Health Maintenance Due Date Last Done Comments [...] DRUG SCREEN Routine 07/16/2024 1:49 PM EST half-way (current) use of opiate analgesic LIPID PANEL, STANDARD Routine 01/16/2024 9:40 AM [...] EDT Narrative 08/27/2024 2:14 PM EDT ? [facility] ?[address] ?[place] [address] ? CT Scan Report ? Signed ? Patient: Celeste Abad ?MR#: [id number] ?? 4 ? : 1945 ?Acct:[id number] ? Age/Sex: 78 / F ?ADM Date: 08/26/24 ? Loc: HO.CT ? Attending Dr: Maria Esther Blum EYEGLASS LENS GENERATOR ? Ordering Physician: Maria Esther Blum NP ?? Date of Service: 08/26/24 ?? Procedure(s): CT chest wo IV con ?? Accession Number(s): [id number] ? cc: Name,Eddie GILMORE; Maria Esther Blum NP ? Report Number: ?? [id number]: Total DLP = ??208.00 mGy-cm ? CLINICAL [...] DD/ 1412 ? TD/TT: 08/27/24 1412 ? Print Binding Worker: ? Procedure Note Geoff, Image - 08/27/[address] [address] [address] Scan Report Signed Patient: Celeste AbadMR#: [id number] 4 : 7Acct:[id number] Age/Sex: 78 / FADM Date: 08/26/24 Loc: HO.CT Attending Dr: Maria Esther Blum NP Ordering Physician: Maria Esther Blum NP Date of Service: 08/26/24 Procedure(s): CT chest wo IV con Accession Number(s): [id number] cc: Name,Eddie GILMORE; Maria Esther Blum NP Report Number: [id number]: Total DLP = 208.00 mGy-cm CLINICAL HISTORY: [...] 08/27/24 1413 DD/ 1412 TD/TT: 08/27/24 1412 Print Binding Worker: [facility] External Provider IMG CT PROCEDURES Final Result * (ABNORMAL) Iron And Total Iron Binding Capacity (08/27/2024 1:25 PM EDT) Iron 14(L) 30 - 160 mcg/dL [facility] Total Iron Binding Capacity 295 228 - 428 mcg/dL [facility] Percent Iron Saturation 5(L) 15 - 50 % [facility] Unsaturated Iron Binding 281 ug/dL [facility] 08/27/2024 1:25 PM EDT 08/27/2024 1:25 PM EDT Generic External Data Provider LAB BLOOD ORDERAB LES Final Result [facility] [address] [place] [address] [phone] * (ABNORMAL) CBC (08/27/2024 1:25 PM EDT) White Blood Count 9.0 4.8 - 10.8 X10*3/uL [facility] Red Blood Count 4.06(L) 4.20 - 5.50 X10*6/uL [facility] Hemoglobin 10.0(L) 12.0 - 16.0 g/dl [facility] Hematocrit 33.1(L) 37.0 - 47.0 % [facility] Mean Corpuscular Volume 81.5 80.0 - 98.0 fL [facility] Mean Corpuscular Hemoglobin 24.6(L) 27.0 - 33.0 pg [facility] Mean Corpuscular HGB Conc 30.2(L) 31.0 - 35.0 g/dl [facility] Red Cell Distribution Width 16.3(H) 11.0 - 16.0 % [facility] Platelet Count 393 160 - 400 X10*3/uL [facility] Mean Platelet Volume 9.4 9.4 - 12.3 fL [facility] NRBC Pct Auto 0.0 0.0 - 0.2 /100WBC [facility] NRBC Abs Auto 0.000 0.0 - 0.012 X10*3/uL [facility] 08/27/2024 1:25 PM EDT 08/27/2024 1:25 PM EDT us Generic External Data Provider LAB BLOOD ORDERAB LES Final Result [facility] [address] [place] [address] [phone] * Ferritin (08/27/2024 1:25 PM EDT) Ferritin 35 10 - 250 ng/mL [facility] 08/27/2024 1:25 PM EDT 08/27/2024 1:25 PM EDT us Generic External Data Provider LAB BLOOD ORDERAB LES Final Result [facility] [address] [place] [phone] * FL Esophagus Barium Swallow w/Air (08/14/2024 9:52 AM EST) Anatomical Region Laterality Modality Head, Neck Radiographic Tanya ging 08/14/2024 9:52 AM EST Narrative 08/15/2024 4:55 PM EST ? [facility] ?[address] ?[place] [address] ? Fluoroscopy Report ? Signed ? Patient: Celeste Abad ?MR#: [id number] ?? 4 ? : 1945 ?Acct:[id number] ? Age/Sex: 78 / F ?ADM Date: 08/14/24 ? Loc: HO.XRAY ? Attending Dr: Julia Li MD ? Ordering Physician: Julia Li MD ?? Date of Service: 08/14/24 ?? Procedure(s): FL barium swallow with air ?? Accession Number(s): [id number] ? cc: Eddie Marshall MD; Julia Li [...] DD/ 0952 ? TD/TT: 08/14/24 1020 ? Print Binding Worker: ? Procedure Note Geoff, Image - 08/15/[address] [address] Fluoroscopy Report Signed Patient: Celeste AbadMR#: [id number] 4 : 7Acct:[id number] Age/Sex: 78 / FADM Date: 08/14/24 Loc: HO.XRAY Attending Dr: Julia Li MD Ordering Physician: Julia Li MD Date of Service: 08/14/24 Procedure(s): FL barium swallow with air Accession Number(s): [id number] cc: Eddie Marshall MD; Julia Li MD [...] MD 08/15/2024 04:52 PM EST RP Workstation: [id number] Dictated By: Devon Delvalle Signed By: <Electronically signed by Devon Delvalle in OV> 08/15/24 1652 <Electronically signed by Sagar Shore MD in OV> 08/15/24 1654 DD/ 0952 TD/TT: 08/14/24 1020 Print Binding Worker: [facility] External Provider IMG FLU OROSCOPY PROCEDURES Final Result * Immunofixation (ALEXANDER), Urine (08/14/2024 9:41 AM EST) [facility] ALEXANDER Interpretation SEE NOTE H [facility] Comment:Normal pattern. No m onoclonal proteins detected.The supplier of the testing reagents for this assayhas changed. Detection of small monoclonal proteins mayvary by test system.THIS TEST WAS PERFORMED AT:[employer] [address] [phone] PAYNE MD 08/14/2024 9:41 AM EST 08/14/2024 10:39 AM EST Generic External Data Provider LAB URINE ORDERAB LES Final Result [facility] [address] [place] [phone] * (ABNORMAL) Protein, Total and Protein??Electrophoresis (08/14/2024 9:37 AM EST) Prot Elec - Total Protein 6.7 6.1 - 8.1 g/dL [facility] Prot Elec - Albumin 3.2(A) 3.8 - 4.8 g/dL [facility] Prot Elec - Alpha1 0.4(A) 0.2 - 0.3 g/dL [facility] Prot Elec - Alpha2 1.1(A) 0.5 - 0.9 g/dL [facility] Prot Elec - Beta 1 0.5 0.4 - 0.6 g/dL [facility] Prot Elec - Beta 2 0.5 0.2 - 0.5 g/dL [facility] Prot Elec - Gamma 1.0 0.8 - 1.7 g/dL [facility] PES - Abn Protein Band 1 TNP [facility] PES-Abn Protein Band 2 TNP [facility] PES-Abn Protein Band 3 TNP [facility] Prot Elec - Interpretation SEE NOTE [facility] Comment:Evaluation is consis tent with an acute inflammatorypattern.THIS TEST WAS PERFORMED AT:[employer] [place] [phone] PAYNE MD 08/14/2024 9:37 AM EST 08/14/2024 9:41 AM EST us Generic External Data Provider LAB BLOOD ORDERAB LES Final Result Performing Organization Address [facility] de Phone Number [facility] [address] [place] [phone] * (ABNORMAL) Phosphate (As Phosphorus) (08/14/2024 9:37 AM EST) Pathologist [facility] Phosphorus 2.6(L) 2.7 - 4.5 mg/dL [facility] 08/14/2024 9:37 AM EST 08/14/2024 9:41 AM EST Generic External Data Provider LAB BLOOD ORDERAB LES Final Result Performing Organization Address [facility] Co de Phone Number [facility] [address] [place] [phone] * (ABNORMAL) POCT HGB A1C (08/02/2024 [...] EST Narrative 07/16/2024 7:07 PM EST ? [facility] ?[address] ?[place] [address] ?XRay Report ? Signed ? Patient: Jenniffer,Celeste ?MR#: [id number] ?? 4 ? : 1945 ?Acct:[id number] ? Age/Sex: 78 / F ?ADM Date: 01/28/25 ? Loc: HO.ED ? Attending Dr: ? Ordering Physician: Rhea Ken ?? Date of Service: 07/16/24 ?? Procedure(s): XR KUB ?? Accession Number(s): [id number] ? cc: Rhea Ken; Name,Eddie GILMORE ? [...] ? DD/ 06 ? TD/TT: 07/16/241906 ? Print Binding Worker: ? Procedure Note Donjose ramonter, Image - 07/16/[address] [address] XRay Report Signed Patient: Ventura Abad#: [id number] 4 : 7Acct:[id number] Age/Sex: 78 / FADM Date: 07/16/24 Loc: HO.ED Attending Dr: Ordering Physician: Rhea Ken Date of Service: 07/16/24 Procedure(s): XR KUB Accession Number(s): [id number] cc: Rhea Ken; Name,Eddie GILMORE CLINICAL HISTORY: [...] in OV> 07/16/241906 DD/ 06 TD/TT: 07/16/241906 Print Binding Worker: us [facility] External Provider IMG XR PROCEDURES Final Result * SARS-CoV-2 RNA, Influenza A/B, and RSV RNA, Ql NAAT (07/16/2024 7:06 PM EST) Influenza A PCR NEGATIVE Negative [facility] Influenza B PCR NEGATIVE Negative [facility] Resp Syncy Virus RNA Qual PCR NEGATIVE Negative [facility] SARS COV2 PCR NEGATIVE Negative [facility] Comment:All test results mus t [...] use by authorized laboratories.Testing performed on the [employer] GeneXpert utilizingreal-time RT-PCR.All SARS CoV2 and positive influenza A/B results arereported to [facility]. 07/16/2024 7:06 PM EST 07/16/2024 7:11 PM EST us Generic External Data Provider LAB MICROBIOLOGY - GENERAL ORDERABLES Final Result [facility] [address] [place] [phone] * (ABNORMAL) CBC auto differential (07/16/2024 7:06 PM EST) White Blood Count 10.1 4.8 - 10.8 X10*3/uL [facility] Red Blood Count 4.68 4.20 - 5.50 X10*6/uL [facility] Hemoglobin 13.3 12.0 - 16.0 g/dl [facility] Hematocrit 40.7 37.0 - 47.0 % [facility] Mean Corpuscular Volume 87.0 80.0 - 98.0 fL [facility] Mean Corpuscular Hemoglobin 28.4 27.0 - 33.0 pg [facility] Mean Corpuscular HGB Conc 32.7 31.0 - 35.0 g/dl [facility] Red Cell Distribution Width 15.0 11.0 - 16.0 % [facility] Platelet Count 272 160 - 400 X10*3/uL [facility] Mean Platelet Volume 9.9 9.4 - 12.3 fL [facility] Neutrophils Percent Auto 74.5(H) 45 - 73 % [facility] Imm Gran Pct Auto 0.3 0.0 - 0.4 % [facility] Lymphocytes Percent Auto 16.3(L) 20 - 40 % [facility] Monocytes Percent Auto 8.0 2 - 11 % [facility] Eosinophils Percent Auto 0.7 0 - 4 % [facility] Basophils Percent Auto 0.2 0 - 2 % [facility] NRBC Pct Auto 0.0 0.0 - 0.2 /100WBC [facility] Neutrophils Absolute Auto 7.6 2.0 - 8.3 x10*3/uL [facility] Imm Gran Abs Auto 0.03 0.00 - 0.03 X10*3/uL [facility] Lymphocytes Absolute Auto 1.7 1.2 - 4.9 X10*3/uL [facility] Monocytes Absolute Auto 0.8 0.1 - 1.2 X10*3/uL [facility] Eosinophils Absolute Auto 0.1 0.0 - 0.4 X10*3/uL [facility] Basophils Absolute Auto 0.0 0.0 - 0.2 X10*3/uL [facility] NRBC Abs Auto 0.000 0.0 - 0.012 X10*3/uL [facility] 07/16/2024 7:06 PM EST 07/16/2024 7:11 PM EST us Generic External Data Provider LAB BLOOD ORDERAB LES Final Result [facility] [address] [place] [phone] * Magnesium (07/16/2024 7:06 PM EST) Magnesium 2.2 1.6 - 2.6 mg/dL [facility] 07/16/2024 7:06 PM EST 07/16/2024 7:11 PM EST us Generic External Data Provider LAB BLOOD ORDERAB LES Final Result Performing Organization Address [facility]/ZIP Co de Phone Number [facility] [address] [place] [phone] * Lipase (07/16/2024 7:06 PM EST) [facility] Lipase 8 8 - 78 U/L [facility] 07/16/2024 7:06 PM EST 07/16/2024 7:11 PM EST Generic External Data Provider LAB BLOOD ORDERAB LES Final Result Performing Organization Address [facility] Number [facility] [address] [place] [phone] * (ABNORMAL) Hepatic Function Panel (07/16/2024 7:06 PM EST) [facility] Bilirubin, Total 0.4 0.0 - 1.0 mg/dL [facility] Bilirubin, Direct 0.2 0.0 - 0.5 mg/dL [facility] Aspartate Amino Transferase 37(H) 5 - 31 U/L [facility] Alanine Aminotransferase 27 0 - 31 U/L [facility] Total Protein 7.5 6.5 - 8.0 g/dL [facility] Albumin Level 3.9 3.5 - 5.0 g/dL [facility] Alkaline Phosphatase 136(H) 39 - 117 U/L [facility] 07/16/2024 7:06 PM EST 07/16/2024 7:11 PM EST Generic External Data Provider LAB BLOOD ORDERAB LES Final Result Performing Organization Address [facility] Co de Phone Number [facility] [address] [place] [phone] * (ABNORMAL) Basic Metabolic Panel (07/16/2024 7:06 PM EST) Sodium 139 135 - 145 mmol/L [facility] Potassium 4.3 3.3 - 5.1 mmol/L [facility] Chloride 102 96 - 108 mmol/L [facility] Carbon Dioxide 25 22 - 29 mmol/L [facility] Anion Gap 16 12 - 20 [facility] Urea Nitrogen (BUN) 18(H) 9 - 16 mg/dL [facility] Creatinine, Serum 0.73 0.5 - 1.4 mg/dL [facility] Creatinine Clr Calc Pharmacy 58.3 [facility] Comment:Provided height and weight: 157.48 cm,68.039 kg.eGFR (calculated from the MDRD study equation) and eCrCl(calculated from the Cockcroft-Gault equation) are based ondifferent parameters and may not yield comparable results.If eCrCl result is absurd, please check patient'sheight/weight. Estimated Glomerular Filt Rate >60 [facility] Comment:Chronic Kidney Disea se: Estimated GFR < 60 mL/min/1.95w0Hibokx Kidney Disease: Estimated GFR < 15 mL/min/1.73m2 Glucose 124(H) 60 - 115 mg/dL [facility] Calcium 9.1 8.4 - 10.2 mg/dL [facility] 07/16/2024 7:06 PM EST 07/16/2024 7:11 PM EST us Generic External Data Provider LAB BLOOD ORDERAB LES Final Result [facility] [address] [place] [phone] * POCT ADRIAN-14 Urine Drug Screen (07/16/2024 1:49 PM EST) Oxycodone Screen, Urine Positive Urine Urine specimen obtained by clean catch procedure / Unknown 07/16/2024 1:49 PM EST Mckenzie Trent SUPERINTENDENT HORTICULTURE POINT OF CARE TEST ENTER/EDIT ORDERABLES Final Result * (ABNORMAL) Lipid Panel, Standard (01/16/2024 9:40 AM EDT) Triglycerides 199(H) <150 mg/dL [facility] Comment:Desirable Triglyceri de: less than 150 mg/dLBorderline High Triglyceride 150-199 mg/dLHigh Triglyceride: 200-499 mg/dLVery High Triglyceride: greater than or equal to 5OO mg/dL Cholesterol 150 <200 mg/dL [facility] Comment:Desirable Cholestero l: less than 200 mg/dLBorderline High Cholesterol: 200-239 mg/dLHigh Cholesterol: greater than 239 mg/dL LDL Cholesterol Calculated 63 <100 mg/dL [facility] Comment:Desirable LDL: less than 100 mg/dLNear Optimal/Above Optimal LDL: 110- 129 mg/dLBorderline High LDL: 130-159 mg/dLHigh LDL: 160-189 mg/dLVery High LDL: greater than or equal to 190 mg/dL HDL Cholesterol 48 >40 mg/dL [facility] Comment:Desirable HDL: great er than 40 mg/dL Note: This HDL assay may give artificially low results in patients with liver disease. Blood Venous blood specimen / Unknown 01/16/2024 9:40 AM EDT 01/16/2024 11:20 AM EDT us Eddie Name LAB BLOOD ORDERABLES Final Resul t [facility] [address], [place] [phone] * Albumin, Random Urine W/Creatinine (01/16/2024 9:35 AM EDT) Creatinine, Urine 27.62 mg/dL [facility] Microalbumin Urine <5.0 mg/L [facility] Microalbum Creatinine Ratio Ur TNP <30 ug/mg cr [facility] Comment:Unable to calculate albumin/creatinine ratio due to lowmicroalbumin or creatinine result. Urine (Urine, Random) 01/16/2024 9:35 AM EDT 01/16/2024 11:12 AM EDT us Eddie Marshall MD LAB URINE ORDERABLES Final Resul t [facility] [address] [place] [phone] * Hm Diabetes Eye Exam (05/16/2023) Eye Exam Normal Normal us Eddie Marshall MD HEALTH MAINTENANCE Final Result * (ABNORMAL) Hepatitis Panel, General (11/18/2022 2:07 PM EDT) Hepatitis A Antibody Total REACTIVE( A) NON-REACT NAHID [employer] Comment: For additional information, please refer to http://[employer].Encision/faq/FHX371 (This link is being provided for informational/ educational purposes only.) Hepatitis B Surface Antibody QL NON-REACT NAHID NON-REACT NAHID [facility] Hepatitis B Surface Ag NON-REACT NAHID NON-REACT NAHID [facility] Hepatitis B Core Antibody Total NON-REACT NAHID NON-REACT NAHID [facility] Hepatitis C Antibody NON-REACT NAHID NON-REACT NAHID [facility] Index 0.07 <1.00 [employer] Comment: HCV antibody was non-reactive. There is no laboratory evidence of HCV infection. In most cases, no further action is required. However, if recent HCV exposure is suspected, a test for HCV RNA (test code 11272) is suggested. For additional information please refer to http://[employer]/faq/SHU18t7 (This link is being provided for informational/ educational purposes only.) 11/18/2022 2:07 PM EDT 11/18/2022 2:09 PM EDT Narrative [facility] - 11/19/2022 6:51 AM EDT COLLECTION KIT GIVEN TO PATIENT. PATIENT ADVISED TO RETURN. us Mckenzie Makris SUPERINTENDENT HORTICULTURE LAB BLOOD ORDERABLES Final Res ult [facility] [address], [place] [address] [employer] [facility] [address] [place] [phone] from Last 3 Months or Most Recently Relevant to Health Maintenance Insurance [employer] [place] [id number] Care Teams Racing Secretary Relationship Specialty Start Date End Date Name, MD Eddie [address] [place] [phone] PCP - General Family Medicine 09/16/15 Jerica Sim 07/01/24
--- OUTSIDE RECORDS SUMMARY | 2024-09-02 10:32 | XMS_ITS | Encounter Summary ---
Author Organization [employer] Address [address] [place] [address] [place] [address] Care Team Providers Care Software Developer Consultant Name Role Phone Name, Eddie GILMORE Primary Care Provider [phone] Reason for Visit * Reason Onset Date Comments Hospital Follow-up 11/10/2022 Encounter Details Date Type Department Care Team (Late st Contact Info) Description 11/10/2022 Refill [facility] MEDICINE [address] [place], [place] [phone] Name, MD Eddie 230 [place] [address] Social History Tobacco Use Types Packs/Day Years [...] Jackman Sent: 11/21/2022 5:23 PM EDT To: [facility] Team Nurses Hi team! Sent this pt to the ED over the weekend for Hgb 7. Got admitted and looks like recently discharged. Can you please outreach her for status check and sched HDF w/ Name? Thank you!! * Telephone Encounter - Suzette Singh RN - 11/22/2022 11:10 AM EDT T/C to [phone] to schedule HDF apt. No answer. LVM to call back on [phone]. ----- Message from Amber Roger RN sent at 11/22/2022 9:06 AM EDT ----- ----- Message ----- From: DENIS Jackman Sent: 11/21/2022 5:23 PM EDT To: [facility] Team Nurses Mi team! Sent this pt to the ED [...] Office Visit [facility] MEDICINE [address] [place] [address] 10/29/2024 2:30 PM EDT Office Visit [facility] MEDICINE [address] [place] [address] Name, MD Eddie [address] [place] [address] documented as of this encounter Visit Diagnoses Not on filedocumented in this encounter Care Teams Software Developer Consultant Relationship Specialty Start Date End Date NameEddie MD [address] [place] [address] PCP - General Family Medicine 09/16/15 Jerica SEN 07/01/24 documented as of this encounter
--- OUTSIDE RECORDS SUMMARY | 2024-09-02 10:33 | XMS_ITS | Encounter Summary ---
Author Organization [employer] Address [address] [place] [address] 7 [place] [address] Care Team Providers Care Oliving Machine Operator Name Role Phone Name, Eddie GILMORE Primary Care Provider [phone] Reason for Visit * Reason Onset Date Comments Medication Question 09/01/2023 Encounter Details Date Type Department Care Team ([facility] st Contact Info) Description 09/01/2023 Telephone [facility] MEDICINE [address] [place], [place] [phone] Name, MD Eddie 230 [place] [address] Medication Question Social History Tobacco Use Types [...] an add on. Please contact pharmacy at [phone]. documented in this encounter Plan of Treatment Upcoming Encounters Date Type Department Care Team (Late st Contact Info) Description 09/10/2024 9:45 AM EDT Office Visit [facility] MEDICINE [facility] [place] [place] [address] 10/29/2024 2:30 PM EDT Office Visit [facility] MED[facility] [place] [address] Name, [place] [address] documented as of this encounter Visit Diagnoses Not on filedocumented in this encounter Additional Health Concerns Assessment Noted Time PHQ-9 Depression Total Score: 10 023 1:16 PM EDT documented as of this encounter Care Teams Oliving Machine Operator Relationship Specialty Start Date End Date Name, MD Eddie [facility] [place] [address] PCP - General Family Medicine 09/16/15 Jerica [facility] 07/01/24 documented as of this encounter
--- OUTSIDE RECORDS SUMMARY | 2024-09-02 10:33 | XMS_ITS | Encounter Summary ---
Author Organization [employer] Address [address] [place] [address] 7 [place] [address] Care Team Providers Care Loin Puller Name Role Phone Name, Eddie GILMORE Primary Care Provider [phone] Reason for Visit * Reason Onset Date Comments Active Med List 06/28/2023 Encounter Details Date Type Department Care Team ([facility] st Contact Info) Description 06/28/2023 Telephone [facility] MEDICINE 230 [place], [place] [phone] Name, MD Eddie 230 [place] [address] Active Med List Social History Tobacco Use [...] Be requesting a updated active medication list telegraphic typewriter repairer did attempt to transfer to Medical records so that she can obtain this information but they kept transferring back to the call center. [facility] [address], [place] [phone] documented in this encounter Plan of Treatment Upcoming Encounters Date Type Department Care Team (Late st Contact Info) Description 09/10/2024 9:45 AM EDT Office Visit [facility] MEDICINE [address] [place] [address] 10/29/2024 2:30 PM EDT Office Visit [facility] MEDICINE [address] [place] [address] Name, MD Eddie [address] [place] [address] documented as of this encounter Visit Diagnoses Not on filedocumented in this encounter Additional Health Concerns Assessment Noted Time PHQ-9 Depression Total Score: 10 023 1:16 PM EDT documented as of this encounter Care Teams Loin Puller Relationship Specialty Start Date End Date Name, MD Eddie 230 [place] [address] PCP - General Family Medicine 09/16/15 Jerica SEN 07/01/24 documented as of this encounter
--- OUTSIDE RECORDS SUMMARY | 2024-09-02 10:33 | XMS_ITS | Encounter Summary ---
Author Organization [employer] Address [address] [place] [address] 7 [place] [address] Care Team Providers Care Emergency Medical Services Coordinator Name Role Phone Name, Eddie GILMORE Primary Care Provider [phone] Reason for Visit * Reason Onset Date Comments Med Refill 08/09/2024 Encounter Details Date Type Department Care Team ([facility] st Contact Info) Description 08/09/2024 Refill [facility] MEDICINE 230 [place], [place] [phone] Name, MD Eddie 230 [place], [place] [phone] Chronic pain syndrome Social History Tobacco Use [...] 5-325 MG tablet To be sent to: [facility] Pharmacy documented in this encounter Plan of Treatment Upcoming Encounters Date Type Department Care Team (Late st Contact Info) Description 09/10/2024 9:45 AM EDT Office Visit [facility] MEDICINE [address] [place] [address] 10/29/2024 2:30 PM EDT Office Visit [facility] MEDICINE [address] [place] [address] NameEddie MD [address] [place] [address] documented as of this encounter Visit Diagnoses Diagnosis Chronic pain syndrome documented in this encounter Additional Health Concerns Assessment Noted Time PHQ-9 Depression Total Score: 9 05/10/20 24 11:56 AM EST documented as of this encounter Care Teams Emergency Medical Services Coordinator Relationship Specialty Start Date End Date NameEddie MD [address] [place] [address] PCP - General Family Medicine 09/16/15 Jerica SEN 07/01/24 documented as of this encounter
--- OUTSIDE RECORDS SUMMARY | 2024-09-02 10:33 | XMS_ITS | Encounter Summary ---
Author Organization [employer] Address [address] [place] [address] 7 [place] [address] Care Team Providers Care Fusion Analyst Name Role Phone Name, Eddie GILMORE Primary Care Provider [phone] Reason for Visit * Reason Comments Med Refill Encounter Details Date Type Department Care Team (Late st Contact Info) Description 06/18/2023 Refill [facility] MEDICINE 230 [place], [place] [phone] Name, MD Eddie 230 [place], [place] [phone] Chronic pain syndrome Social History Tobacco Use [...] 09/10/2024 9:45 AM EDT Office Visit [facility] MEDICINE [address] [place] [address] 10/29/2024 2:30 PM EDT Office Visit [address] [address] Name, MD Eddie [address] [place] [address] documented as of this encounter Visit Diagnoses Diagnosis Chronic pain syndrome documented in this encounter Additional Health Concerns Assessment Noted Time PHQ-9 Depression Total Score: 10 023 1:16 PM EDT documented as of this encounter Care Teams Fusion Analyst Relationship Specialty Start Date End Date NameEddie MD [address] [place] [address] PCP - General Family Medicine [facility] documented as of this encounter
--- OUTSIDE RECORDS SUMMARY | 2024-09-02 10:33 | XMS_ITS | Encounter Summary ---
Author Organization [employer] Address [address] [place] [address] 7 [place] [address] Care Team Providers Care Chest Pain Coordinator Name Role Phone Name, Eddie GILMORE Primary Care Provider [phone] Reason for Visit * Reason Comments Med Refill Encounter Details Date Type Department Care Team (Late st Contact Info) Description 08/19/2024 Refill [facility] MEDICINE 230 [place], [place] [phone] Name, MD Eddie 230 [place] [address] Social History Tobacco Use Types Packs/Day Years [...] Description 09/10/2024 9:45 AM EDT Office Visit [address] [address] 10/29/2024 2:30 PM EDT Office Visit [address] [address] NameEddie MD [address] [place] [address] documented as of this encounter Visit Diagnoses Not on filedocumented in this encounter Additional Health Concerns Assessment Noted Time PHQ-9 Depression Total Score: 9 05/10/20 24 11:56 AM EST documented as of this encounter Care Teams Chest Pain Coordinator Relationship Specialty Start Date End Date NameEddie MD [address] [place] [address] PCP - General Family Medicine 09/16/15 Jerica SEN 07/01/24 documented as of this encounter
--- OUTSIDE RECORDS SUMMARY | 2024-09-02 10:33 | XMS_ITS | Encounter Summary ---
Author Organization [employer] Address [address] [place] [address] Care Team Providers Care Brush Polisher Name Role Phone NameEddie MD Primary Care Provider [phone] Reason for Visit * Reason Comments Med Refill Encounter Details Date Type Department Care Team (Late Contact Info) Description 02/26/2023 Refill [facility] MEDICINE [address] [place] [address] [phone] Eddie Marshall MD [address] [place] [address] [phone] Chronic pain syndrome Social History Tobacco Use [...] Office Visit [facility] MEDICINE [address] [place] [address] [phone] 10/29/2024 2:30 PM EDT Office Visit [address] [phone] Eddie Marshall MD 230 [place] [address] documented as of this encounter Visit Diagnoses Diagnosis Chronic pain syndrome documented in this encounter Additional Health Concerns Assessment Noted Time PHQ-9 Depression Total Score: 10 023 1:16 PM EDT documented as of this encounter Care Teams Brush Polisher Relationship Specialty Start Date End Date Name, MD Eddie 230 [place] [address] PCP - General Family Medicine 09/16/15 Jerica A 07/01/24 documented as of this encounter
--- OUTSIDE RECORDS SUMMARY | 2024-09-02 10:33 | XMS_ITS | Encounter Summary ---
Author Organization [employer] Address [address] [place] [address] 7t [place] [address] Care Team Providers Care Thread Tool Grinder Set Up Operator Name Role Phone Name, Eddie GILMORE Primary Care Provider [phone] Encounter Details Date Type Department Care Team [...] Description 09/10/2024 9:45 AM EDT Office Visit [facility] MEDICINE [address] [place] [address] 10/29/2024 2:30 PM EDT Office Visit [facility] MEDICINE [address] [place] [address] Name, MD Eddie [address] [place] [address] documented as of this encounter Procedures Procedure [...] EST Narrative 08/15/2024 4:55 PM EST ? [facility] ?[address] ?[place] [address] ? Fluoroscopy Report ? Signed ? Patient: Jenniffer,Celeste ?MR#: [id number] ?? 4 ? : 1945 ?Acct:[id number] ? Age/Sex: 78 / F ?ADM Date: 02/26/25 ? Loc: HO.XRAY ? Attending Dr: Julia Li MD ? Ordering Physician: Julia Li MD ?? Date of Service: 08/14/24 ?? Procedure(s): FL barium swallow with air ?? Accession Number(s): [id number] ? cc: Joanna,Eddie GILMORE; Julia Li MD [...] DD/ 0952 ? TD/TT: 08/14/24 1020 ? First Aid Instructor: ? Procedure Note Geoff, Sahil - 08/15/2024 [place] [address] Fluoroscopy Report Signed Patient: Celeste Abad#: [id number] 4 : 1945cct:[id number] Age/Sex: 78 / FADM Date: 08/14/24 Loc: HO.XRAY Attending Dr: Julia Li MD Ordering Physician: Julia Li MD Date of Service: 08/14/24 Procedure(s): FL barium swallow with air Accession Number(s): [id number] cc: Eddie Marshall MD; Julia Li MD [...] 08/15/2024 04:52 PM [facility] Dictated By: Devon Delvalle Signed By: <Electronically signed by Devon Delvalle in OV> 08/15/24 1652 <Electronically signed by Sagar Shore MD in OV> 08/15/24 1654 DD/ 0952 TD/TT: 08/14/24 1020 First Aid Instructor: [facility] External Provider IMG FLU OROSCOPY PROCEDURES Final Result * Immunofixation (ALEXANDER), Urine (08/14/2024 9:41 AM EST) Pathologist [facility] ALEXANDER Interpretation SEE NOTE H [facility] Comment:Normal pattern. No m onoclonal proteins detected.The supplier of the testing reagents for this assayhas changed. Detection of small monoclonal proteins mayvary by test system.THIS TEST WAS PERFORMED AT:[facility] [place] [id number] PAYNE MD 08/14/2024 9:41 AM EST 08/14/2024 10:39 AM EST Generic External Data Provider LAB URINE ORDERAB LES Final Result [facility] [address] [place] [address] [phone] * (ABNORMAL) Protein, Total and Protein??Electrophoresis (08/14/2024 9:37 AM EST) Prot Elec - Total Protein 6.7 6.1 - 8.1 g/dL [facility] Prot Elec - Albumin 3.2(A) 3.8 - 4.8 g/dL [facility] Prot Elec - Alpha1 0.4(A) 0.2 - 0.3 g/dL [facility] Prot Elec - Alpha2 1.1(A) 0.5 - 0.9 g/dL [facility] Prot Elec - Beta 1 0.5 0.4 - 0.6 g/dL [facility] Prot Elec - Beta 2 0.5 0.2 - 0.5 g/dL [facility] Prot Elec - Gamma 1.0 0.8 - 1.7 g/dL [facility] PES - Abn Protein Band 1 TNP [facility] PES-Abn Protein Band 2 TNP [facility] PES-Abn Protein Band 3 TNP [facility] Prot Elec - Interpretation SEE NOTE [facility] Comment:Evaluation is consis tent with an acute inflammatorypattern.THIS TEST WAS PERFORMED AT:[facility] [place] [phone] PAYNE MD 08/14/2024 9:37 AM EST 08/14/2024 9:41 AM EST Generic External Data Provider LAB BLOOD ORDERAB LES Final Result Performing Organization Address [facility]/ZIP Co de Phone Number [facility] [address] [place] [phone] * (ABNORMAL) Phosphate (As Phosphorus) (08/14/2024 9:37 AM EST) Phosphorus 2.6(L) 2.7 - 4.5 mg/dL [facility] 08/14/2024 9:37 AM EST 08/14/2024 9:41 AM EST Generic External Data Provider LAB BLOOD ORDERAB LES Final Result Performing Organization Address [facility] Co de Phone Number [facility] [address] [place] [phone] documented in this encounter Visit Diagnoses Not on filedocumented in this encounter Additional Health Concerns Assessment Noted Time PHQ-9 Depression Total Score: 9 05/10/20 24 11:56 AM EST documented as of this encounter Care Teams Thread Tool Grinder Set Up Operator Relationship Specialty Start Date End Date Name, MD Eddie [address] [place] [address] PCP - General Family Medicine 09/16/15 [facility] documented as of this encounter
--- OUTSIDE RECORDS SUMMARY | 2024-09-02 10:33 | XMS_ITS | Encounter Summary ---
Author Organization [employer] Address [address] [place] [address] 7 [place] [address] Care Team Providers Care Cosmetician Apprentice Name Role Phone Name, Eddie GILMORE Primary Care Provider [phone] Reason for Visit * Reason Comments Med Refill Encounter Details Date Type Department Care Team (Late Contact Info) Description 12/01/2022 Refill [facility] MEDICINE 230 [place], [place] [phone] Name, MD Eddie 230 [place] [address] Controlled type 2 diabetes mellitus with complication, without long-term current use of insulin ([facility]) Social History Tobacco Use Types [...] Description 09/10/2024 9:45 AM EDT Office Visit [facility] [place] [address] 10/29/2024 2:30 PM EDT Office Visit [facility] [place] [address] Name, [place] [address] documented as of this encounter Visit Diagnoses Diagnosis Controlled type 2 diabetes mellitus with complication, without long-term current use of insulin ([facility]) documented in this encounter Additional Health Concerns Assessment Noted Time PHQ-9 Depression Total Score: 10 023 1:16 PM EDT documented as of this encounter Care Teams Cosmetician Apprentice Relationship Specialty Start Date End Date Name, [place] [address] PCP - General Family Medicine 09/16/15 Jerica BURGOSA 07/01/24 documented as of this encounter
--- OUTSIDE RECORDS SUMMARY | 2024-09-02 10:33 | XMS_ITS | Encounter Summary ---
Author Organization [employer] Address [address] [place] [address] 7t [place] [address] Care Team Providers Care Heat Treatment Technician Name Role Phone Name, Eddie GILMORE Primary Care Provider Encounter Details Date Type Department Care Team ([facility] st Contact Info) Description 12/07/2022 Telephone [facility] MEDICINE 230 [place], [place] [phone] Name, MD Eddie 230 [place] [address] Social History Tobacco Use Types Packs/Day Years [...] update PCP now. Ordering provider Pierce Pillai MANAGER CATEGORY Follow with genaro as indicated. Results faxed at time of call to [phone]. Ref.# [id number] C documented in this encounter Plan of Treatment Upcoming Encounters Date Type Department Care Team (Late st Contact Info) Description 09/10/2024 9:45 AM EDT Office Visit [facility] MEDICINE [address] [place] [address] 10/29/2024 2:30 PM EDT Office Visit [address] [address] Name, MD Eddie [address] [place] [address] documented as of this encounter Visit Diagnoses Not on filedocumented in this encounter Additional Health Concerns Assessment Noted Time PHQ-9 Depression Total Score: 10 023 1:16 PM EDT documented as of this encounter Care Teams Heat Treatment Technician Relationship Specialty Start Date End Date Name, MD Eddie [address] [place] [address] PCP - General Family Medicine 09/16/15 [facility] 07/01/24 documented as of this encounter
--- OUTSIDE RECORDS SUMMARY | 2024-09-02 10:33 | XMS_ITS | Encounter Summary ---
Author Organization [employer] Address [address] [facility] 7t [place] [address] Care Team Providers Care Fibre Technologist Name Role Phone Name, Eddie GILMORE Primary Care Provider [phone] Reason for Visit * Reason Onset Date Comments september recalls 08/09/2024 Encounter Details Date Type Department Care Team ([facility] st Contact Info) Description 08/09/2024 Telephone [facility] MEDICINE 230 [place], [place] [phone] Sophie Marie [place] september recalls Social History [...] 9:45 AM EDT Office Visit [facility] MEDICINE [address] [place] [address] 10/29/2024 2:30 PM EDT Office Visit [address] [address] NameEddie MD [address] [place] [address] documented as of this encounter Visit Diagnoses Not on filedocumented in this encounter Additional Health Concerns Assessment Noted Time PHQ-9 Depression Total Score: 9 05/10/20 24 11:56 AM EST documented as of this encounter Care Teams Fibre Technologist Relationship Specialty Start Date End Date Eddie Marshall MD [address] [place] [address] PCP - General Family Medicine 09/16/15 Jerica SEN 07/01/24 documented as of this encounter
--- OUTSIDE RECORDS SUMMARY | 2024-09-02 10:33 | XMS_ITS | Encounter Summary ---
Author Organization [employer] Address [address] [place] [address] 7 [place] [address] Care Team Providers Care Cotton Dispatcher Name Role Phone Name, Eddie GILMORE Primary Care Provider [phone] Reason for Visit * Reason Comments Med Refill Encounter Details Date Type Department Care Team (Late st Contact Info) Description 05/08/2023 Refill [facility] MEDICINE 230 [place], [place] [phone] Name, MD Eddie 230 [place], [place] [phone] Chronic pain syndrome Social History Tobacco Use [...] EDT Office Visit [facility] MEDICINE [address] [place] [address] 10/29/2024 2:30 PM EDT Office Visit [address] [address] Name, MD Eddie [address] [place] [address] documented as of this encounter Visit Diagnoses Diagnosis Chronic pain syndrome documented in this encounter Additional Health Concerns Assessment Noted Time PHQ-9 Depression Total Score: 10 023 1:16 PM EDT documented as of this encounter Care Teams Cotton Dispatcher Relationship Specialty Start Date End Date NameEddie MD [address] [place] [address] PCP - General Family Medicine 09/16/15 [facility] documented as of this encounter
--- OUTSIDE RECORDS SUMMARY | 2024-09-02 10:33 | XMS_ITS | Data Portability ---
Author Organization [place] - [facility], Allergy Address [address] [place] [address] Care Team Providers Care Industrial Relations Representative Name Role Phone NAME, DELIA Primary Care Provider Assessment No assessment recorded. Plan of Treatment Reminders Order Date Submit Date Provider Last Modified By Organization Details Last Modified Time Details Appointments Establish ed 15 2024 02:30P M HUONG WILSON PA-C Not available Not available Not available Lab None recorded. Referral None recorded. Procedures None recorded. Surgeries None recorded. Imaging None recorded. Medication Orders None recorded. Patient TargetsNo targets recorded. Patient InstructionsNo instructions recorded. Reason for Referral None Reported. Problems Name Problem SNOMED Code Status Onset Date Resolution Date Notes Provider Name and Address Organization Details Recorded Time Essential hypertens ion 95709674 Active 2014 Essential (primary) hypertensi on; Note: Date Diagnosed: 05/07/2015 9:43 AM (I10) Not Available [facility] 4 02:37:47 Bleeding from nose 567581041 Active 2014 Epistaxis; Note: Date Diagnosed: 05/07/2015 9:43 AM (R04.0) Not Available [facility] 4 02:37:50 Anterior epistaxis 857441081 Active 2024 YANIV GARCIA MD [address] [place] [address], [place], [address] , [place] - [facility] 5 12:32:29 Problem Notes None recorded. Procedures Surgical History Date Name Laterality Status Provider Name and Address Organization Details Recorded Time 5 Epistaxis Simple Nasal Cautery Right completed YANIV GARCIA MD [address] [place] [address],[place] [address], [place], [phone], [facility] - [facility] 08/11/2024 12:31:38 Imaging Results None recorded. Procedure Notes None recorded. Medical Equipment None Reported. Allergies Allergen ID Allergen Name Allergen Category Reaction Reaction Severity Criticality Documentation Date Start Date Code Code System Note Provider Name and Address Organization Details Recorded Time 36557 atorvasta tin medicatio n other Not available Not available 10/31/2023 02392 RxNorm React ion: unkno wn, unspe cifie d;; Not Available [facility] 4 00:59:20 Medications Name Sig Start [...] 24 hr 08/09 completed Medicati on ID: 365304 D uration Value: 90 Brand Name: oxybutyn in chloride Send Method: E-Prescr ibed Sub s Allowed: subs OK Speci al Instruct ion: TAKE 1 TABLET BY MOUTH EVERY DAY Medi cationGe nericNam e: oxybutyn in chloride Not Available Not Available Not Available Patanol 0.1 % eye drops 08/09 completed Medicati on ID: 685383 B rand Name: Patanol Send Method: E-Prescr [...] layed release 08/09 completed Medicati on ID: 505376 B rand Name: aspirin Send Method: E-Prescr ibed Sub s Allowed: subs OK Medic ationGen ericName : aspirin Not Available Not Available Not Available tramadol 50 mg tablet 2014 active Medicati on ID: [id number] D uration Value: 28 Brand Name: tramadol Send Method: E-Prescr ibed Sub s Allowed: subs OK Speci al Instruct ion: TAKE 1 TABLET BY MOUTH EVERY 8 HOURS NEEDED FOR PAIN Med icationG enericNa me: tramadol Not Available Not Available Not Available nortripty line 25 mg capsule 08/09 completed Medicati on ID: 628483 D uration Value: 90 Brand Name: nortript yline Se nd Method: E-Prescr ibed Sub s Allowed: subs OK Speci al Instruct ion: TAKE 3 CAPSULES BY MOUTH AT BEDTIME Medicati onGeneri cName: nortript yline Not Available Not Available Not Available levothyro xine 100 mcg tablet 08/09 completed Medicati on ID: [id number] D uration Value: 90 Brand Name: levothyr oxine Se nd Method: E-Prescr ibed Sub s Allowed: subs OK Speci al Instruct ion: TAKE 1 TABLET BY MOUTH EVERY DAY [facility] nericNam e: levothyr oxine Not [...] elayed release 2014 active Medicati on ID: 234309 D uration Value: 90 Brand Name: omepranatasha le Send Method: E-Prescr ibed Sub s Allowed: subs OK Speci al Instruct ion: TAKE 2 CAPSULES BY MOUTH DAILY. Alexx Salgadomandyic Name: juliana le Not Available Not Available Not Available [...] ne propionat e 50 mcg/actua tion nasal spray,[facility] 2013 active Medicati on ID: 759823 D uration Value: 30 Brand Name: fluticas one Send Method: E-Prescr ibed Sub s Allowed: subs OK Speci al Instruct ion: SPRAY 2 SPRAYS INTO EACH NOSTRIL DAILY Me dication GenericN delmi: fluticas one Not Available Not Available Not Available loratadin e 10 mg tablet 08/09 completed Medicati on ID: [id number] D uration Value: 30 Brand Name: loratadi [...] 500 mg tablet active Medicati on ID: 615807 B rand Name: Tylenol Extra Strength Send [...] History Nothing Reported. Medical History Condition Response Stroke Y Anemia Y Heart Attack ([place]) Y Asthma Y Hypertension Y Gynecological HistoryNo gynecological history recorded. Obstetrics History GPAL:G 0 P 0 0 0 0 Past Encounters Encounter ID Performer Location Encounter Start Date Encounter Closed Date Diagnosis/Indication Diagnosis SNOMED-CT Code Diagnosis ICD10 Code Diagnosis Note [id number] YANIV GARCIA MD [facility] [address] [phone] 08/09/2024 09:39:15 08/09/2024 11:07:17 Anterior epistaxis 951723590 R04.0 78-year-ol d female with a history [...] for cautery on the left. Essential hypertension 82272773 I10 Long-term current use of antiplatelet drug 6419839979 08389 Z79.02 Health Concerns Section Related Observation LastModified by Organization Detai ls LastModified Time None Recorded Concern Status LastModified by Organization Details LastModified Time None Recorded Advance Directives Directive None Recorded Payers Encounter Date Sequence Insurance Name Policy Number Policy Zapata Covered Member ID Zapata Member ID Guarantor Name 08/09/2024 1 [facility] (MEDICAID HMO) Celeste Abad [id number] Celeste Abad Notes Date Note Type Note [...] able to stop them YANIV GARCIA MD [address] [place] [address], [phone], [facility] - [facility] 08/11/2024 12:36:32 OBGyn Episode No OBEpisode recorded.
--- OUTSIDE RECORDS SUMMARY | 2024-09-02 10:33 | XMS_ITS | Encounter Summary ---
Author Organization [employer] Address [address] [place] [address] 7 [place] [address] Care Team Providers Care Software Qa System Specialist Name Role Phone Name, Eddie GILMORE Primary Care Provider [phone] Reason for Visit * Reason Comments Med Refill Encounter Details Date Type Department Care Team (Late Contact Info) Description 01/04/2023 Refill [facility] MEDICINE [address] [place] [address] [phone] Name, MD Eddie [address] [place] [address] Gastroesophageal reflux disease, unspecified whether esophagitis present [...] 09/10/2024 9:45 AM EDT Office Visit [facility] MEDICINE [address] [place] [address] 10/29/2024 2:30 PM EDT Office Visit [facility] [address] [place] [address] Name, [place] [address] documented as of this encounter Visit Diagnoses Diagnosis Gastroesophageal reflux disease, unspecified whether esophagitis present documented in this encounter Additional Health Concerns Assessment Noted Time PHQ-9 Depression Total Score: 10 023 1:16 PM EDT documented as of this encounter Care Teams Software Qa System Specialist Relationship Specialty Start Date End Date Name, [place] [address] PCP - General Family Medicine 09/16/15 [place] A 07/01/24 documented as of this encounter
--- OUTSIDE RECORDS SUMMARY | 2024-09-02 10:33 | XMS_ITS | Encounter Summary ---
Author Organization [employer] Address [address] [place] [address] 7t [place] [address] Care Team Providers Care Manager E Commerce Name Role Phone Name, Eddie GILMORE Primary Care Provider [phone] Encounter Details Date Type Department Care Team [...] Visit [facility] MEDICINE [address] [place] [address] 10/29/2024 2:30 PM EDT Office Visit [facility] MEDICINE [address] [place] [address] Name, MD Eddie [address] [place] [address] documented as of this encounter Procedures Procedure Name Priority Date/Time Associated Diagnosis Comments IRON AND TOTAL IRON BINDING CAPACITY Routine 08/27/2024 1:25 PM EDT CBC Routine 08/27/2024 1:25 PM EDT FERRITIN Routine 08/27/2024 1:25 PM EDT documented in this encounter Results * Ferritin (08/27/2024 1:25 PM EDT) Ferritin 35 10 - 250 ng/mL [facility] 08/27/2024 1:25 PM EDT 08/27/2024 1:25 PM EDT us Generic External Data Provider LAB BLOOD ORDERAB LES Final Result [facility] [address] [place] [address] [phone] * (ABNORMAL) Iron And Total Iron Binding Capacity (08/27/2024 1:25 PM EDT) Iron 14(L) 30 - 160 mcg/dL [facility] Total Iron Binding Capacity 295 228 - 428 mcg/dL [facility] Percent Iron Saturation 5(L) 15 - 50 % [facility] Unsaturated Iron Binding 281 ug/dL [facility] 08/27/2024 1:25 PM EDT 08/27/2024 1:25 PM EDT us Generic External Data Provider LAB BLOOD ORDERAB LES Final Result [facility] [address] [place] [address] [phone] * (ABNORMAL) CBC (08/27/2024 1:25 PM EDT) Pathologist [facility] White Blood Count 9.0 4.8 - 10.8 X10*3/uL [facility] Red Blood Count 4.06(L) 4.20 - 5.50 X10*6/uL [facility] Hemoglobin 10.0(L) 12.0 - 16.0 g/dl [facility] Hematocrit 33.1(L) 37.0 - 47.0 % [facility] Mean Corpuscular Volume 81.5 80.0 - 98.0 fL [facility] Mean Corpuscular Hemoglobin 24.6(L) 27.0 - 33.0 pg [facility] Mean Corpuscular HGB Conc 30.2(L) 31.0 - 35.0 g/dl [facility] Red Cell Distribution Width 16.3(H) 11.0 - 16.0 % [facility] Platelet Count 393 160 - 400 X10*3/uL [facility] Mean Platelet Volume 9.4 9.4 - 12.3 fL [facility] NRBC Pct Auto 0.0 0.0 - 0.2 /100WBC [facility] NRBC Abs Auto 0.000 0.0 - 0.012 X10*3/uL [facility] 08/27/2024 1:25 PM EDT 08/27/2024 1:25 PM EDT us Generic External Data Provider LAB BLOOD ORDERAB LES Final Result [facility] [address] [place] [address] [phone] documented in this encounter Visit Diagnoses Not on filedocumented in this encounter Additional Health Concerns Assessment Noted Time PHQ-9 Depression Total Score: 9 05/10/20 24 11:56 AM EST documented as of this encounter Care Teams Manager E Commerce Relationship Specialty Start Date End Date Name, MD Eddie [address] [place] [address] PCP - General Family Medicine [facility] documented as of this encounter
--- OUTSIDE RECORDS SUMMARY | 2024-09-02 10:33 | XMS_ITS | Encounter Summary ---
Author Organization [employer] Address [address] [place] [address] 7 [place] [address] Care Team Providers Care Museum Security Chief Name Role Phone Name, Eddie GILMORE Primary Care Provider [phone] Reason for Visit * Reason Onset Date Comments Referral 02/02/2023 Back dated refer ral Encounter Details Date Type Department Care Team ([facility] st Contact Info) Description 02/02/2023 Telephone [facility] MEDICINE [address] [place], [place] [phone] Name, MD Eddie [address] [place] [address] Referral (Back dated referral ) Social History [...] 1:40 PM EDT Tc from Kasie at [facility] requesting status on message below regarding referral. Fax number [phone]. Any questions please call [phone] * Telephone Encounter - Amber Roger RN - 02/03/2023 10:34 AM EDT Please review message below regarding backdated referral for these dates * Telephone Encounter - Laure Mcgill - 02/02/2023 2:07 PM EDT Tc from Kasie at [facility] calling in regards to referral needing to be back dated. Patient was seen at the office on 01/03/23 and 01/11/23. Fax number [phone]. Any questions please call [phone]. documented in this encounter Plan of Treatment Upcoming Encounters Date Type Department Care Team (Late st Contact Info) Description 09/10/2024 9:45 AM EDT Office Visit [facility] MEDICINE [address] [place] [address] 10/29/2024 2:30 PM EDT Office Visit [facility] MEDICINE [address] [place] [address] Name, MD Eddie [address] [place] [address] documented as of this encounter Visit Diagnoses Not on filedocumented in this encounter Additional Health Concerns Assessment Noted Time PHQ-9 Depression Total Score: 10 023 1:16 PM EDT documented as of this encounter Care Teams Museum Security Chief Relationship Specialty Start Date End Date Name, MD Eddie [address] [place] [address] PCP - General Family Medicine 09/16/15 [place] SEN 07/01/24 documented as of this encounter
--- OUTSIDE RECORDS SUMMARY | 2024-09-02 10:33 | XMS_ITS | Continuity of Care Document ---
Author Organization [place] - [facility], [facility] Address [address] [place] [phone] Care Team Providers Care Panel Maker Name Role Phone NAME, DLEIA Primary Care Provider [phone] Assessment No assessment recorded. Plan of Treatment [...] Organization Details Recorded Time Essential hypertens ion 32524453 Active 2014 Essential (primary) hypertensi on; Note: Date Diagnosed: 05/07/2015 9:43 AM (I10) Not Available [facility] 4 02:37:47 Bleeding from nose 585125051 Active 2014 Epistaxis; Note: Date Diagnosed: 05/07/2015 9:43 AM (R04.0) Not Available [facility] 4 02:37:50 Anterior epistaxis 073095945 Active 2024 YANIV GARCIA MD [address] [place] [address] [place], [phone] , [place] - [facility] 5 12:32:29 Problem Notes None recorded. Procedures Surgical History Date Name Laterality Status Provider Name and Address Organization Details Recorded Time 5 Epistaxis Simple Nasal Cautery Right completed YANIV GARCIA MD [address] [place], [phone], [facility] - [facility] 08/11/2024 12:31:38 Imaging Results None recorded. Procedure Notes None recorded. Medical Equipment None Reported. Allergies Allergen ID Allergen Name Allergen Category Reaction Reaction Severity Criticality Documentation Date Start Date Code Code System Note Provider Name and Address Organization Details Recorded Time 05704 atorvasta tin medicatio n other Not available Not available 10/31/2023 58728 RxNorm React ion: unkno wn, unspe cifie d;; Not Available [facility] 4 00:59:20 Medications Name Sig Start [...] 24 hr 08/09 completed Medicati on ID: 990502 D uration Value: 90 Brand Name: oxybutyn in chloride Send Method: E-Prescr ibed Sub s Allowed: subs OK Speci al Instruct ion: TAKE 1 TABLET BY MOUTH EVERY DAY Medi cationGe nericNam e: oxybutyn in chloride Not Available Not Available Not Available Patanol 0.1 % eye drops 08/09 completed Medicati on ID: 293988 B rand Name: Patanol Send Method: E-Prescr [...] layed release 08/09 completed Medicati on ID: 867584 B rand Name: aspirin Send Method: E-Prescr ibed Sub s Allowed: subs OK Medic ationGen ericName : aspirin Not Available Not Available Not Available tramadol 50 mg tablet 2014 active Medicati on ID: 938411 D uration Value: 28 Brand Name: tramadol Send Method: E-Prescr ibed Sub s Allowed: subs OK Speci al Instruct ion: TAKE 1 TABLET BY MOUTH EVERY 8 HOURS NEEDED FOR PAIN Med icationG enericNa me: tramadol Not Available Not Available Not Available nortripty line 25 mg capsule 08/09 completed Medicati on ID: 955652 D uration Value: 90 Brand Name: nortript yline Se nd Method: E-Prescr ibed Sub s Allowed: subs OK Speci al Instruct ion: TAKE 3 CAPSULES BY MOUTH AT BEDTIME Medicati onGeneri cName: nortript yline Not Available Not Available Not Available levothyro xine 100 mcg tablet 08/09 completed Medicati on ID: 602567 D uration Value: 90 Brand Name: levothyr [...] elayed release 2014 active Medicati on ID: 735231 D uration Value: 90 Brand Name: omeprazo le Send Method: E-Prescr ibed Sub s Allowed: subs ALESSIO Speci al Instruct ion: TAKE 2 CAPSULES BY MOUTH DAILY. Alexx Salgadoeneric Name: omepranatasha le Not Available Not Available Not Available [...] spray,[employer] 2013 active Medicati on ID: 323343 D uration Value: 30 Brand Name: fluticas one Send Method: E-Prescr ibed Sub s Allowed: subs OK Speci al Instruct ion: SPRAY 2 SPRAYS INTO EACH NOSTRIL DAILY Me dication GenericN delmi: fluticas one Not Available Not Available Not Available loratadin e 10 mg tablet 08/09 completed Medicati on ID: 032715 D uration Value: 30 Brand Name: loratadi [...] 500 mg tablet active Medicati on ID: 115876 B rand Name: Tylenol Extra Strength Send [...] Reported. Medical History Condition Response Heart Attack ([place]) Y Anemia Y Stroke Y Hypertension Y Asthma Y Gynecological HistoryNo gynecological history recorded. Obstetrics History GPAL:G 0 P 0 0 0 0 Past Encounters Encounter ID Performer Location Encounter Start Date Encounter Closed Date Diagnosis/Indication Diagnosis SNOMED-CT Code Diagnosis ICD10 Code Diagnosis Note [id number] YANIV GARCIA MD [facility] [address] [address] 08/09/2024 09:39:15 08/09/2024 11:07:17 Anterior epistaxis 257992628 R04.0 78-year-ol d female with a history [...] for cautery on the left. Essential hypertension 63449958 I10 Long-term current use of antiplatelet drug 5831598168 61655 Z79.02 Health Concerns Section Related Observation LastModified by Organization Detai ls LastModified Time None Recorded Concern Status LastModified by Organization Details LastModified Time None Recorded Payers Encounter Date Sequence Insurance Name Policy Number Policy Zapata Covered Member ID Zapata Member ID Guarantor Name 08/09/2024 1 [facility] (MEDICAID HMO) Celeste Abad [id number] Celeste Abad Notes Date Note Type Note [...] able to stop them YANIV GARCIA MD [address] [place] [address], [phone], [facility] - [facility] 08/11/2024 12:36:32 OBGyn Episode No OBEpisode recorded.
--- OUTSIDE RECORDS SUMMARY | 2024-09-02 10:33 | XMS_ITS | Encounter Summary ---
Author Organization [employer] Address [address] [place] [address] 7 [place] [address] Care Team Providers Care Ammonia Nitrate Operator Name Role Phone Name, Eddie GILMORE Primary Care Provider Reason for Visit * Reason Onset Date Comments Medication Question 09/05/2023 Encounter Details Date Type Department Care Team ([facility] st Contact Info) Description 09/05/2023 Telephone [facility] MEDICINE [address] [place], [place] [phone] Name, MD Eddie [address] [place] [address] Medication Question Social History Tobacco Use Types [...] Description 09/10/2024 9:45 AM EDT Office Visit [facility] MEDICINE [address] [place] [address] 10/29/2024 2:30 PM EDT Office Visit [facility] MEDICINE [address] [place] [address] Name, MD Eddie [address] [place] [address] documented as of this encounter Visit Diagnoses Not on filedocumented in this encounter Additional Health Concerns Assessment Noted Time PHQ-9 Depression Total Score: 10 11/28/ 023 1:16 PM EDT documented as of this encounter Care Teams Ammonia Nitrate Operator Relationship Specialty Start Date End Date Name, MD Eddie [address] [facility] [place] [address] PCP - General Family Medicine 09/16/15 [place] SEN 07/01/24 documented as of this encounter
--- OUTSIDE RECORDS SUMMARY | 2024-09-02 10:33 | XMS_ITS | Encounter Summary ---
Author Organization [employer] Address [address] [place] [address] 7 [place] [address] Care Team Providers Care Critical Care Specialist Name Role Phone Name, Eddie GILMORE Primary Care Provider [phone] Reason for Visit * Reason Onset Date Comments Appointment Request 08/13/2024 Encounter Details Date Type Department Care Team ([facility] st Contact Info) Description 08/13/2024 Telephone [facility] MEDICINE [address] [place], [place] [phone] Name, MD Eddie [address] [place] [address] Appointment Request Social History Tobacco Use Types [...] r/s Apt from 08/13/24. Contact pt at [phone] documented in this encounter Plan of Treatment Upcoming Encounters Date Type Department Care Team (Late st Contact Info) Description 09/10/2024 9:45 AM EDT Office Visit [facility] [place] [address] 10/29/2024 2:30 PM EDT Office Visit [facility] MEDICINE [address] [place] [address] Name, [place] [address] documented as of this encounter Visit Diagnoses Not on filedocumented in this encounter Additional Health Concerns Assessment Noted Time PHQ-9 Depression Total Score: 9 05/10/20 24 11:56 AM EST documented as of this encounter Care Teams Critical Care Specialist Relationship Specialty Start Date End Date Name, MD Eddie [address] [place] [address] PCP - General Family Medicine 09/16/15 [place] SEN 07/01/24 documented as of this encounter
--- OUTSIDE RECORDS SUMMARY | 2024-09-02 10:33 | XMS_ITS | Encounter Summary ---
Author Organization [employer] Address [address] [place] [address] 7t [place] [address] Care Team Providers Care Vat Overhauler Name Role Phone Name, Eddie GILMORE Primary Care Provider [phone] Encounter Details Date Type Department Care Team (Late st Contact Info) Description 08/26/2024 Orders Only [facility] External Provider, [facility] Social History Tobacco Use Types Packs/Day [...] Visit [facility] [address] [place] [address] 10/29/2024 2:30 PM EDT Office Visit [facility] [address] [place] [address] Name, MD Eddie [address] [place] [address] documented as of this encounter Procedures Procedure Name Priority Date/Time Associated Diagnosis Comments CT CHEST WO CONTRAST Routine 08/27/2024 2:12 PM EDT documented in this encounter Results * CT Chest w/o Contrast (08/27/2024 2:12 PM EDT) Anatomical Region Laterality Modality Body, Chest Computed Tomogra phy 08/27/2024 2:12 PM EDT Narrative 08/27/2024 2:14 PM EDT ? [facility] ?[address] ?[place] [address] ? CT Scan Report ? Signed ? Patient: Jenniffer,Celeste ?MR#: [id number] ?? 4 ? : 1945 ?Acct:[id number] ? Age/Sex: 78 / F ?ADM Date: 03/10/25 ? Loc: HO.CT ? Attending Dr: Maria Esther Bulm NP ? Ordering Physician: Maria Esther Blum NP ?? Date of Service: 08/26/24 ?? Procedure(s): CT chest wo IV con ?? Accession Number(s): [id number] ? cc: Name,Eddie GILMORE; Maria Esther Blum NP ? Report Number: ?? [id number]: Total DLP = ??208.00 mGy-cm ? CLINICAL [...] DD/ 1412 ? TD/TT: 08/27/24 1412 ? Deposition Reporter: ? Procedure Note Sahil Tellez - 08/27/[address] [place] [address] [address] Scan Report Signed Patient: Ventura Abad#: [id number] 4 : 7Acct:[id number] Age/Sex: 78 / FADM Date: 08/26/24 Loc: HO.CT Attending Dr: Maria Esther Blum SAFETY TECHNICIAN Ordering Physician: Maria Esther Blum NP Date of Service: 08/26/24 Procedure(s): CT chest wo IV con Accession Number(s): [id number] cc: Eddie Marshall MD; Maria Esther Blum NP Report Number: [id number]: Total DLP = 208.00 mGy-cm CLINICAL HISTORY: [...] 08/27/24 1413 DD/ 1412 TD/TT: 08/27/24 141 Deposition Reporter: [facility] External Provider IMG CT PROCEDURES Final Result documented in this encounter Visit Diagnoses Not on filedocumented in this encounter Additional Health Concerns Assessment Noted Time PHQ-9 Depression Total Score: 9 05/10/20 24 11:56 AM EST documented as of this encounter Care Teams Vat Overhauler Relationship Specialty Start Date End Date Name, MD Eddie [address] [place] [address] PCP - General Family Medicine 09/16/15 [facility] 07/01/24 documented as of this encounter
--- OUTSIDE RECORDS SUMMARY | 2024-09-02 10:33 | XMS_ITS | Encounter Summary ---
Author Organization [facility] [employer] Address [address] [place] [address] 7t [place] [address] Care Team Providers Care Tank Hoop Bender Name Role Phone NameEddie MD Primary Care Provider [phone] Encounter Details Date Type Department Care Team ([facility] Contact Info) Description 11/18/2022 Abstract [facility] [address] [place] [address] [phone] NameEddie MD [address] [place] [address] [phone] Social History Tobacco Use Types Packs/Day Years [...] Upcoming Encounters Date Type Department Care Team ([facility] Contact Info) Description 09/10/2024 9:45 AM EDT Office Visit [facility] [address] [place] [address] 10/29/2024 2:30 PM EDT Office Visit [address] [phone] Eddie Marshall, MD [address] [place] [address] documented as of this encounter Visit Diagnoses Not on filedocumented in this encounter Care Teams Tank Hoop Bender Relationship Specialty Start Date End Date Name, MD Eddie [address] [place] [address] PCP - General Family Medicine 09/16/15 [facility] A 07/01/24 documented as of this encounter
--- OUTSIDE RECORDS SUMMARY | 2024-09-02 10:33 | XMS_ITS | Encounter Summary ---
Author Organization [employer] Address [address] [facility] 7t [place] [address] Care Team Providers Care Housekeeping Coordinator Name Role Phone Name, Eddie GILMORE Primary Care Provider [phone] Reason for Visit * Reason Onset Date Comments september recalls 08/09/2024 Encounter Details Date Type Department Care Team ([facility] st Contact Info) Description 08/09/2024 Telephone [facility]INE [address] [place], [place] [phone] Sophie Marie [place] september recalls Social History [...] 9:45 AM EDT Office Visit [facility] [address] [place] [address] 10/29/2024 2:30 PM EDT Office Visit [facility] [address] [place] [address] NameEddie MD [address] [place] [address] documented as of this encounter Visit Diagnoses Not on filedocumented in this encounter Additional Health Concerns Assessment Noted Time PHQ-9 Depression Total Score: 9 05/10/20 24 11:56 AM EST documented as of this encounter Care Teams Housekeeping Coordinator Relationship Specialty Start Date End Date Eddie Marshall MD [address] [place] [address] PCP - General Family Medicine 09/16/15 Jer[facility] 07/01/24 documented as of this encounter
--- OUTSIDE RECORDS SUMMARY | 2024-09-02 10:33 | XMS_ITS | Encounter Summary ---
Author Organization [employer] Address [address] [place] [address] [place] [address] Care Team Providers Care Surfacing Machine Operator Name Role Phone NameEddie MD Primary Care Provider [phone] Reason for Visit * Reason Comments Med Refill Encounter Details Date Type Department Care Team (Late st Contact Info) Description 01/29/2023 Refill [facility] MED[facility]INE [address] [place] [address] [phone] Farhana Singh FNP [address] [place] [address] [place] [address] Social History Tobacco Use Types Packs/Day Years [...] [facility] [address] [place] [address] [phone] 10/29/2024 2:30 PM EDT Office Visit [facility] [address] [place] [address] [phone] Name, MD Eddie [address] [place] [address] documented as of this encounter Visit Diagnoses Not on filedocumented in this encounter Additional Health Concerns Assessment Noted Time PHQ-9 Depression Total Score: 10 11/28/ 023 1:16 PM EDT documented as of this encounter Care Teams Surfacing Machine Operator Relationship Specialty Start Date End Date Name, MD Eddie [address] [place] [address] PCP - General Family Medicine 09/16/15 Jer[facility] A 07/01/24 documented as of this encounter
== END 2024-09-02 17:21 | disposition home or self-care (01) ==
PROVIDERS: PCP Internal Medicine Geriatric Medicine; Visit Provider Surgery
DX: K44.9 Diaphragmatic hernia without obstruction or gangrene (principal)
CPT/HCPCS: 99204

== ENCOUNTER → 2024-09-02 09:37 | Outpatient (BNVA) | payer MEDICARE, SELFPAY | PROVIDERS: PCP Internal Medicine Geriatric Medicine; Visit Provider Surgery | DX: K44.9 Diaphragmatic hernia without obstruction or gangrene (principal) | CPT/HCPCS: 99202 ==

== ENCOUNTER → 2024-09-11 12:25 | Day surgery (SDC) | payer MEDICARE, SELFPAY ==
--- NOTE | 2024-09-11 14:08 | PC.NURSE ---
Patient in preop. During med rec patient stated she took morning medications at 0900 with a spoon of applesauce. I know you guys told me yesterday nothing to eat after midnight, but I cant take my meds without applesauce . Dr. Medina made aware. Per him, minimum of 6 hour wait, with 3pm start time. This nurse at bedside to discuss plan with patient of 3pm start. Patient very upset stating I cant wait until 3pm, get me my wheelchair, call my son , using profanity. Patient educated on the safety and risks associated with food in the stomach. Patient adamantly requesting to leave. Call placed to son by Suleiman at the front office associate. Son up to waiting room. Son educated as to why patient being cancelled. Patient offered a drink to go, declined. Patient handed off to son via wheelchair in preop marroquin.
== END ==
LOC: HO.SSS 12:26
PROVIDERS: PCP Internal Medicine Geriatric Medicine; Visit Provider Surgery
DX: K44.9 Diaphragmatic hernia without obstruction or gangrene (principal); Z53.09 Procedure and treatment not carried out because of other contraindication; Z79.899 Other long term (current) drug therapy

== ENCOUNTER 2024-09-19 | Outpatient (REF) | payer MEDICARE, SELFPAY ==
[2024-09-20 12:22] LABS: Creatinine, mg/dL 39.86
--- OUTSIDE RECORDS SUMMARY | 2024-09-20 13:19 | XMS_ITS | Encounter Summary ---
Author Organization [employer] Address [address] [place] [address] 7 [place] [address] Care Team Providers Care Animal Technician Name Role Phone Name, Eddie GILMORE Primary Care Provider [phone] Reason for Visit * Reason Comments Med Refill Encounter Details Date Type Department Care Team (Late st Contact Info) Description 05/08/2023 Refill [facility] 230 [place], [place] [phone] Name, MD Eddie [address] [place], [place] [phone] Chronic pain syndrome Social History Tobacco Use [...] Description 10/29/2024 2:30 PM EDT Office Visit [address] [address] NameEddie MD [address] [place] [address] 11/12/2024 9:45 AM EDT Office Visit [address] [address] documented as of this encounter Visit Diagnoses Diagnosis Chronic pain syndrome documented in this encounter Additional Health Concerns Assessment Noted Time PHQ-9 Depression Total Score: 10 023 1:16 PM EDT documented as of this encounter Care Teams Animal Technician Relationship Specialty Start Date End Date NameEddie MD [address] [place] [address] PCP - General Family Medicine 09/16/15 Jerica [facility] 07/01/24 documented as of this encounter
--- OUTSIDE RECORDS SUMMARY | 2024-09-20 13:19 | XMS_ITS | Encounter Summary ---
Author Organization [employer] Address [address] [place] [address] 7 [place] [address] Care Team Providers Care Journeyman Wireman Name Role Phone Name, Eddie GILMORE Primary Care Provider [phone] Reason for Visit * Reason Onset Date Comments Call Back Request 09/19/2024 Encounter Details Date Type Department Care Team ([facility] st Contact Info) Description 09/19/2024 Telephone [facility] 230 [place] [address] Name, MD Eddie [address] [place], [place] [phone] Call Back Request Social History Tobacco Use [...] to Dr. Medina neurologyoffice to discuss further. Back [employer] [employer] reports pt had their last appt on March 25 of last year and it looks like they did not have a referral at that time. Advised the volunteer services manager a referral wassent out on our end on 02/05/24 and volunteer services manager reports they most likely never received. They report we can discuss further with Phyllis who is apart of the billing apartment but they are not here today. Phyllis will be at their office on Monday, Monday and . Message forwarded to team nurse box to follow up with the billing department on Monday. Message forwarded to manpower development specialist jarek ROLAND. * Telephone Encounter - Will Cabreranandez - 09/19/2024 10:10 AM EDT Tc from pt requesting a call back regarding referral for Neurology. Contact pt at [phone] documented in this encounter Plan of Treatment Upcoming Encounters Date Type Department Care Team (Late st Contact Info) Description 10/29/2024 2:30 PM EDT Office Visit [address] [address] Name, MD Eddie [address] [place] [address] 11/12/2024 9:45 AM EDT Office Visit [address] [address] documented as of this encounter Visit Diagnoses Not on filedocumented in this encounter Additional Health Concerns Assessment Noted Time PHQ-9 Depression Total Score: 9 05/10/20 24 11:56 AM EST documented as of this encounter Care Teams Journeyman Wireman Relationship Specialty Start Date End Date NameEddie MD [address] [place] [address] PCP - General Family Medicine 09/16/15 Jerica BURGOSA 07/01/24 documented as of this encounter
--- OUTSIDE RECORDS SUMMARY | 2024-09-20 13:19 | XMS_ITS | Encounter Summary ---
Author Organization [employer] Address [address] [place] [address] 7 [place] [address] Care Team Providers Care Solderer Barrel Ribs Name Role Phone Name, Eddie GILMORE Primary Care Provider [phone] Reason for Visit * Reason Onset Date Comments Medication Question 09/01/2023 Encounter Details Date Type Department Care Team ([facility] st Contact Info) Description 09/01/2023 Telephone [facility] [address] [place], [place] [phone] Name, MD Eddie 230 [place] [address] Medication Question Social History Tobacco Use Types [...] an add on. Please contact pharmacy at [phone]. documented in this encounter Plan of Treatment Upcoming Encounters Date Type Department Care Team (Late st Contact Info) Description 10/29/2024 2:30 PM EDT Office Visit [facility] [place] [address] Name, [place] [address] 11/12/2024 9:45 AM EDT Office Visit [facility] [place] [address] documented as of this encounter Visit Diagnoses Not on filedocumented in this encounter Additional Health Concerns Assessment Noted Time PHQ-9 Depression Total Score: 10 023 1:16 PM EDT documented as of this encounter Care Teams Solderer Barrel Ribs Relationship Specialty Start Date End Date Name, [place] [address] PCP - General Family Medicine 09/16/15 Jerica A 07/01/24 documented as of this encounter
--- OUTSIDE RECORDS SUMMARY | 2024-09-20 13:19 | XMS_ITS | Clinical Summary ---
Author Organization [employer] Address [address] [place] [address] 7[address] [place] [address] Care Team Providers Care Seasonal Sales Associate Name Role Phone Name, Eddie GILMORE Primary Care Provider [phone] Allergies Active Allergy Reactions Criticality Noted Date [...] 06/01/20 22 Active Blood Glucose Monitoring Suppl (Perk [employer] Verio Flex System) w/Device kit USE DIRECTED [...] in the morning. 01/10/20 23 Active Lancets ([employer] Delica Plus [id number]) miscIndications :Controlled type 2 diabetes mellitus with complication, without long-term current use of insulin ([facility]) USE TO CHECK BLOOD SUGAR TWICE A DAY 100 each 5 09/15/19 24 Active glucose blood ([employer]uch Verio) test stripIndication s:Controlled type 2 diabetes mellitus with complication, without long-term current use of insulin ([facility]) CHECK BY FINGERSTICK TWICE DAILY 50 strip [...] refer stat to ENT for cauterization, possible PROCESS CHECKER scope Recommend anterior nasal packing if she is bleeding heavily correction (current) use of opiate analgesic 03/20 Overview (09/10/2024): Dx: chronic pain syndrome/back pain Rx: Percocet 5/325 every 8 hours 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 She understands this is the [...] Department Care Team Description 09/20/2024 Orders Only [facility] External Provider, [facility] 09/19/2024 Telephone [facility] [address] [place] [phone] Eddie Marshall MD Call Back Request 09/15/2024 Refill [facility] [address] [place] [address] 62469 Eddie Marshall MD 09/11/2024 Telephone [facility] [address] [place] [address] 260[address] Eddie Marshall MD Durable Medical Equipment 09/10/2024 9:45 AM EDT Office Visit [facility] [address] [place] [phone] Mckenzie Trent FNP Chronic pain syndrome (Primary Dx); correction (current) use of opiate analgesic 09/10/2024 Travel 09/09/2024 Telephone [facility] [address] [place] [address] [phone] Eddie Marshall MD 09/05/2024 Refill [facility] [address] [place] [address] 04817 Eddie Marshall MD Chronic pain syndrome 08/27/2024 Orders Only GENERIC EXTERNAL DATA DEPARTMENT Provider, [facility] External Data 08/26/2024 Orders Only [facility] External Provider, [facility] 08/19/2024 Refill [facility] [place] [address] Eddie Marshall MD 08/14/2024 Orders Only GENERIC EXTERNAL DATA DEPARTMENT Provider, Generic External Data 08/13/2024 Telephone [facility] [place] [address] Eddie Marshall MD Appointment Request 08/09/2024 Telephone [facility] [place] [address] Sophie Marie MA september recalls 08/09/2024 Telephone [facility] [address] Sophie Marie MA september recalls 08/09/2024 Refill [facility] [place] [address] Eddie Marshall MD Chronic pain syndrome 08/02/2024 2:30 PM EST Office Visit [facility] [place] [address] Latanya Hoover MD Epistaxis (Primary Dx); Controlled type 2 diabetes mellitus with complication, without long-term current use of insulin ([facility]); Dietary counseling; Exercise counseling; Overweight; Anemia, unspecified type 08/02/2024 Travel 07/30/2024 Telephone [facility] [place] [address] Eddie Marshall MD ER Follow-up 07/23/2024 9:00 AM EST Office Visit [facility] [place] [address] Kelly Montoya MD Chronic pain syndrome (Primary Dx) 07/23/2024 Travel 07/17/2024 Refill [facility] [place] [address] Eddie Marshall MD 07/16/2024 9:45 AM EST Office Visit [facility] [place] [address] Mckenzie Trent FNP Chronic pain syndrome (Primary Dx); correction (current) use of opiate analgesic 07/16/2024 9:15 AM EST Office Visit [facility] [address] [place] [address] Kelly Montoya MD Chronic pain syndrome (Primary Dx) 07/16/2024 Orders Only [facility] External Provider, [facility] 07/16/2024 Travel 07/12/2024 Refill [facility] [address] [place] [address] Name, MD Eddie 07/12/2024 Refill [facility] [address] [place] [address] Name, MD Eddie Chronic pain syndrome 07/02/2024 Telephone [facility] [address] [place] [address] Name, MD Eddie from Last 3 Months Immunizations Name Administration Dates Next Due Influenza injectable quadriv alent IIV4 with preservative 04/07/2016 Influenza, IIV3, injectable 03/23/2015,1 ,03/08/2013,04/06,05/01/2008,04/19/2007,05/10/2006 ,03/15/2005 Novel [id number], preservative-free 05/22/2009 Pneumococcal Polysaccharide PPSV23 07/11/2013, TD [...] Description 10/29/2024 2:30 PM EDT Office Visit [facility] [address] [place] [address] Name, MD Eddie [address] [place] [address] 11/12/2024 9:45 AM EDT Office Visit [facility] [address] [place] [address] Health Maintenance Due Date Last Done Comments [...] 09/10/2024 1:29 PM EDT Chronic pain syndrome correction (current) use of opiate analgesic CT CHEST [...] long-term current use of insulin ([facility]) POCT GLUCOSE Routine 08/02/2024 2:14 PM EST Controlled type 2 diabetes mellitus with complication, without long-term current use of insulin ([facility]) XR KUB AND UPRIGHT 2 VIEWS Routine [...] DRUG SCREEN Routine 07/16/2024 1:49 PM EST 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 [facility] ?[address] ?[place] [address] ?XRay Report ? Signed ? Patient: Jenniffer,Celeste ?MR#: [id number] ?? 4 ? : 1945 ?Acct:[id number] ? Age/Sex: 78 / F ?ADM Date: 09/20/24 ? Loc: HO.XRAY ? Attending Dr: Maria Esther Blum PROCESS CHECKER ? Ordering Physician: Maria Esther Blum NP ?? Date of Service: 09/20/24 ?? Procedure(s): XR chest 2V ?? Accession Number(s): [id number] ? cc: Name,Eddie GILMORE; Maria Esther Blum [...] DD/ 1012 ? TD/TT: 09/20/24 1017 ? Java Sql Developer: ? Procedure Note Sahil Tellez - 09/20/[address] [address] XRay Report Signed Patient: Ventura Abad#: [id number] 4 : 1946Acct:[id number] Age/Sex: 78 / FADM Date: 09/20/24 Loc: ZAHIDA Attending Dr: Maria Esther Blum PROCESS CHECKER Ordering Physician: Maria Esther Blum NP Date of Service: 09/20/24 Procedure(s): XR chest 2V Accession Number(s): [id number] cc: Eddie Marshall MD; Maria Esther Blum [...] 09/20/24 1024 DD/ 1012 TD/TT: 09/20/24 1017 Java Sql Developer: [facility] External Provider IMG XR PROCEDURES Final [...] Suarez MA - 09/10/2024 1:30 PM EDT Lot:[id number] Exp: 02/06/2028 us Mckenzie Trent RETAIL AIDE POINT OF CARE TEST ENTER/EDIT ORDERABLES Final Result * CT Chest w/o Contrast (08/27/2024 2:12 PM EDT) Anatomical Region Laterality Modality Body, Chest Computed Tomogra phy 08/27/2024 2:12 PM EDT Narrative 08/27/2024 2:14 PM EDT ? [facility] ?[address] ?[place] [address] ? CT Scan Report ? Signed ? Patient: JennifferCeleste ?MR#: [id number] ?? 4 ? : 1945 ?Acct:[id number] ? Age/Sex: 78 / F ?ADM Date: 08/26/24 ? Loc: HO.CT ? Attending Dr: Maria Esther Blum PROCESS CHECKER ? Ordering Physician: Maria Esther Blum NP ?? Date of Service: 08/26/24 ?? Procedure(s): CT chest wo IV con ?? Accession Number(s): [id number] ? cc: Name,Eddie GILMORE; Maria Esther Blum NP ? Report Number: ?? [id number]: Total DLP = ??208.00 mGy-cm ? CLINICAL [...] ? DD/ 11 ? TD/TT: 08/27/241411 ? Java Sql Developer: ? Procedure Note Donotchristianneinterpreter, Image - 08/27/[address] [address] [address] Scan Report Signed Patient: Celeste AbadMR#: [id number] 4 : 7Acct:[id number] Age/Sex: 78 / FADM Date: 08/26/24 Loc: HO.CT Attending Dr: Maria Esther Blum NP Ordering Physician: Maria Esther Blum NP Date of Service: 08/26/24 Procedure(s): CT chest wo IV con Accession Number(s): [id number] cc: Name,Eddie GILMORE; Maria Esther Blum NP Report Number: [id number]: Total DLP = 208.00 mGy-cm CLINICAL HISTORY: [...] 08/27/24 1413 DD/ 1412 TD/TT: 08/27/24 1412 Java Sql Developer: [facility] External Provider IMG CT PROCEDURES Final Result * (ABNORMAL) Iron And Total Iron Binding Capacity (08/27/2024 1:25 PM EDT) Iron 14(L) 30 - 160 mcg/dL [facility] Total Iron Binding Capacity 295 228 - 428 mcg/dL [facility] Percent Iron Saturation 5(L) 15 - 50 % [facility] Unsaturated Iron Binding 281 ug/dL [facility] 08/27/2024 1:25 PM EDT 08/27/2024 1:25 PM EDT us Generic External Data Provider LAB BLOOD ORDERAB LES Final Result [facility] [address] [place] [address] [phone] * (ABNORMAL) CBC (08/27/2024 1:25 PM EDT) White Blood Count 9.0 4.8 - 10.8 X10*3/uL [facility] Red Blood Count 4.06(L) 4.20 - 5.50 X10*6/uL [facility] Hemoglobin 10.0(L) 12.0 - 16.0 g/dl [facility] Hematocrit 33.1(L) 37.0 - 47.0 % [facility] Mean Corpuscular Volume 81.5 80.0 - 98.0 fL [facility] Mean Corpuscular Hemoglobin 24.6(L) 27.0 - 33.0 pg [facility] Mean Corpuscular HGB Conc 30.2(L) 31.0 - 35.0 g/dl [facility] Red Cell Distribution Width 16.3(H) 11.0 - 16.0 % [facility] Platelet Count 393 160 - 400 X10*3/uL [facility] Mean Platelet Volume 9.4 9.4 - 12.3 fL [facility] NRBC Pct Auto 0.0 0.0 - 0.2 /100WBC [facility] NRBC Abs Auto 0.000 0.0 - 0.012 X10*3/uL [facility] 08/27/2024 1:25 PM EDT 08/27/2024 1:25 PM EDT us Generic External Data Provider LAB BLOOD ORDERAB LES Final Result Performing Organization Address City/[facility]/ZIP Co de Phone Number [facility] [address] [place] [address] [phone] * Ferritin (08/27/2024 1:25 PM EDT) Ferritin 35 10 - 250 ng/mL [facility] 08/27/2024 1:25 PM EDT 08/27/2024 1:25 PM EDT us Generic External Data Provider LAB BLOOD ORDERAB LES Final Result [facility] [address] [place] [address] [phone] * FL Esophagus Barium Swallow w/Air (08/14/2024 9:52 AM EST) Anatomical Region Laterality Modality Head, Neck Radiographic Tanya ging 08/14/2024 9:52 AM EST Narrative 08/15/2024 4:55 PM EST ? [facility] ?[address] ?[place] [address] ? Fluoroscopy Report ? Signed ? Patient: Jenniffer,Celeste ?MR#: [id number] ?? 4 ? : 1945 ?Acct:[id number] ? Age/Sex: 78 / F ?ADM Date: 08/14/24 ? Loc: HO.XRAY ? Attending Dr: Julia Li MD ? Ordering Physician: Julia Li MD ?? Date of Service: 08/14/24 ?? Procedure(s): FL barium swallow with air ?? Accession Number(s): [id number] ? cc: Eddie Marshall MD; Julia Li [...] DD/ 1 ? TD/TT: 08/14/24 1020 ? Java Sql Developer: ? Procedure Note Donotuseinterpreter, Image - 08/15/[address] [address] Fluoroscopy Report Signed Patient: Celeste AbadMR#: [id number] 4 : 7Acct:[id number] Age/Sex: 78 / FADM Date: 08/14/24 Loc: HO.XRAY Attending Dr: Julia Li MD Ordering Physician: Julia Li MD Date of Service: 08/14/24 Procedure(s): FL barium swallow with air Accession Number(s): [id number] cc: Eddie Marshall MD; Julia Li MD [...] Shore MD 08/15/2024 04:52 PM EST Workstation: [id number] Dictated By: Devon Delvalle Signed By: <Electronically signed by Devon Delvalle in OV> 08/15/24 1652 <Electronically signed by Sagar Shore MD in OV> 08/15/24 1654 DD/ 0952 TD/TT: 08/14/24 1020 Java Sql Developer: [facility] External Provider IMG FLU OROSCOPY PROCEDURES Final Result * Immunofixation (ALEXANDER), Urine (08/14/2024 9:41 AM EST) ALEXANDER Interpretation SEE NOTE H [facility] Comment:Normal pattern. No m onoclonal proteins detected.The supplier of the testing reagents for this assayhas changed. Detection of small monoclonal proteins mayvary by test system.THIS TEST WAS PERFORMED AT:[employer] [place] [phone] PAYNE MD 08/14/2024 9:41 AM EST 08/14/2024 10:39 AM EST Generic External Data Provider LAB URINE ORDERAB LES Final Result [facility] [address] [place] [address] [phone] * (ABNORMAL) Protein, Total and Protein??Electrophoresis (08/14/2024 9:37 AM EST) Prot Elec - Total Protein 6.7 6.1 - 8.1 g/dL [facility] Prot Elec - Albumin 3.2(A) 3.8 - 4.8 g/dL [facility] Prot Elec - Alpha1 0.4(A) 0.2 - 0.3 g/dL [facility] Prot Elec - Alpha2 1.1(A) 0.5 - 0.9 g/dL [facility] Prot Elec - Beta 1 0.5 0.4 - 0.6 g/dL [facility] Prot Elec - Beta 2 0.5 0.2 - 0.5 g/dL [facility] Prot Elec - Gamma 1.0 0.8 - 1.7 g/dL [facility] PES - Abn Protein Band 1 TNP [facility] PES-Abn Protein Band 2 TNP [facility] PES-Abn Protein Band 3 [facility] Prot Elec - Interpretation SEE NOTE [facility] Comment:Evaluation is consis tent with an acute inflammatorypattern.THIS TEST WAS PERFORMED AT:[employer] [place] [phone] PAYNE MD 08/14/2024 9:37 AM EST 08/14/2024 9:41 AM EST us Generic External Data Provider LAB BLOOD ORDERAB LES Final Result [facility] [address] [place] [phone] * (ABNORMAL) Phosphate (As Phosphorus) (08/14/2024 9:37 AM EST) Pathologist [facility] Phosphorus 2.6(L) 2.7 - 4.5 mg/dL [facility] 08/14/2024 9:37 AM EST 08/14/2024 9:41 AM EST Generic External Data Provider LAB BLOOD ORDERAB LES Final Result [facility] [address] [place] [address] [phone] * (ABNORMAL) POCT HGB A1C (08/02/2024 [...] EST Narrative 07/16/2024 7:07 PM EST ? [facility] ?[address] ?[place] [address] ?XRay Report ? Signed ? Patient: Jenniffer,Celeste ?MR#: [id number] ?? 4 ? : 1945 ?Acct:[id number] ? Age/Sex: 78 / F ?ADM Date: 01/28/25 ? Loc: HO.ED ? Attending Dr: ? Ordering Physician: Rhea Ken ?? Date of Service: 07/16/24 ?? Procedure(s): XR KUB ?? Accession Number(s): [id number] ? cc: Rhea Ken; Name,Eddie GILMORE ? [...] ? DD/ 06 ? TD/TT: 07/16/241906 ? Java Sql Developer: ? Procedure Note Donotchristianneinterpreter, Image - 07/16/2024 [place] [address] XRay Report Signed Patient: Celeste AbadMR#: [id number] 4 : 1945cct:[id number] Age/Sex: 78 / FADM Date: 07/16/24 Loc: HO.ED Attending Dr: Ordering Physician: Rhea Ken Date of Service: 07/16/24 Procedure(s): XR KUB Accession Number(s): [id number] cc: Rhea Ken; Name,Eddie GILMORE CLINICAL HISTORY: [...] in OV> 07/16/241906 DD/ 06 TD/TT: 07/16/241906 Java Sql Developer: [facility] External Provider IMG XR PROCEDURES Final Result * SARS-CoV-2 RNA, Influenza A/B, and RSV RNA, Ql NAAT (07/16/2024 7:06 PM EST) Pathologist [facility] Influenza A PCR NEGATIVE Negative [facility] Influenza B PCR NEGATIVE Negative [facility] Resp Syncy Virus RNA Qual PCR NEGATIVE Negative [facility] SARS COV2 PCR NEGATIVE Negative [facility] Comment:All test results mus t [...] use by authorized laboratories.Testing performed on the Clinked GeneXpert utilizingreal-time RT-PCR.All SARS CoV2 and positive influenza A/B results arereported to [facility]. 07/16/2024 7:06 PM EST 07/16/2024 7:11 PM EST us Generic External Data Provider LAB MICROBIOLOGY - GENERAL ORDERABLES Final Result [facility] [address] [place] [phone] * (ABNORMAL) CBC auto differential (07/16/2024 7:06 PM EST) Pathologist [facility] White Blood Count 10.1 4.8 - 10.8 X10*3/uL [facility] Red Blood Count 4.68 4.20 - 5.50 X10*6/uL [facility] Hemoglobin 13.3 12.0 - 16.0 g/dl [facility] Hematocrit 40.7 37.0 - 47.0 % [facility] Mean Corpuscular Volume 87.0 80.0 - 98.0 fL [facility] Mean Corpuscular Hemoglobin 28.4 27.0 - 33.0 pg [facility] Mean Corpuscular HGB Conc 32.7 31.0 - 35.0 g/dl [facility] Red Cell Distribution Width 15.0 11.0 - 16.0 % [facility] Platelet Count 272 160 - 400 X10*3/uL [facility] Mean Platelet Volume 9.9 9.4 - 12.3 fL [facility] Neutrophils Percent Auto 74.5(H) 45 - 73 % [facility] Imm Gran Pct Auto 0.3 0.0 - 0.4 % [facility] Lymphocytes Percent Auto 16.3(L) 20 - 40 % [facility] Monocytes Percent Auto 8.0 2 - 11 % [facility] Eosinophils Percent Auto 0.7 0 - 4 % [facility] Basophils Percent Auto 0.2 0 - 2 % [facility] NRBC Pct Auto 0.0 0.0 - 0.2 /100WBC [facility] Neutrophils Absolute Auto 7.6 2.0 - 8.3 x10*3/uL [facility] Imm Gran Abs Auto 0.03 0.00 - 0.03 X10*3/uL [facility] Lymphocytes Absolute Auto 1.7 1.2 - 4.9 X10*3/uL [facility] Monocytes Absolute Auto 0.8 0.1 - 1.2 X10*3/uL [facility] Eosinophils Absolute Auto 0.1 0.0 - 0.4 X10*3/uL [facility] Basophils Absolute Auto 0.0 0.0 - 0.2 X10*3/uL [facility] NRBC Abs Auto 0.000 0.0 - 0.012 X10*3/uL [facility] 07/16/2024 7:06 PM EST 07/16/2024 7:11 PM EST us Generic External Data Provider LAB BLOOD ORDERAB LES Final Result [facility] [address] [place] [address] [phone] * Magnesium (07/16/2024 7:06 PM EST) Magnesium 2.2 1.6 - 2.6 mg/dL [facility] 07/16/2024 7:06 PM EST 07/16/2024 7:11 PM EST us Generic External Data Provider LAB BLOOD ORDERAB LES Final Result Performing Organization Address [facility]/ZIP Co de Phone Number [facility] [address] [place] [phone] * Lipase (07/16/2024 7:06 PM EST) [facility] Lipase 8 8 - 78 U/L [facility] 07/16/2024 7:06 PM EST 07/16/2024 7:11 PM EST us Generic External Data Provider LAB BLOOD ORDERAB LES Final Result Performing Organization Address [facility] de Phone Number [facility] [address] [place] [phone] * (ABNORMAL) Hepatic Function Panel (07/16/2024 7:06 PM EST) [facility] Bilirubin, Total 0.4 0.0 - 1.0 mg/dL [facility] Bilirubin, Direct 0.2 0.0 - 0.5 mg/dL [facility] Aspartate Amino Transferase 37(H) 5 - 31 U/L [facility] Alanine Aminotransferase 27 0 - 31 U/L [facility] Total Protein 7.5 6.5 - 8.0 g/dL [facility] Albumin Level 3.9 3.5 - 5.0 g/dL [facility] Alkaline Phosphatase 136(H) 39 - 117 U/L [facility] 07/16/2024 7:06 PM EST 07/16/2024 7:11 PM EST us Generic External Data Provider LAB BLOOD ORDERAB LES Final Result Performing Organization Address [facility]/ZIP Co de Phone Number [facility] [address] [place] [phone] * (ABNORMAL) Basic Metabolic Panel (07/16/2024 7:06 PM EST) Sodium 139 135 - 145 mmol/L [facility] Potassium 4.3 3.3 - 5.1 mmol/L [facility] Chloride 102 96 - 108 mmol/L [facility] Carbon Dioxide 25 22 - 29 mmol/L [facility] Anion Gap 16 12 - 20 [facility] Urea Nitrogen (BUN) 18(H) 9 - 16 mg/dL [facility] Creatinine, Serum 0.73 0.5 - 1.4 mg/dL [facility] Creatinine Clr Calc Pharmacy 58.3 [facility] Comment:Provided height and weight: 157.48 cm,68.039 kg.eGFR (calculated from the MDRD study equation) and eCrCl(calculated from the Cockcroft-Gault equation) are based ondifferent parameters and may not yield comparable results.If eCrCl result is absurd, please check patient'sheight/weight. Estimated Glomerular Filt Rate >60 [facility] Comment:Chronic Kidney Disea se: Estimated GFR < 60 mL/min/1.87h1Fcafmz Kidney Disease: Estimated GFR < 15 mL/min/1.73m2 Glucose 124(H) 60 - 115 mg/dL [facility] Calcium 9.1 8.4 - 10.2 mg/dL [facility] 07/16/2024 7:06 PM EST 07/16/2024 7:11 PM EST us Generic External Data Provider LAB BLOOD ORDERAB LES Final Result [facility] [address] [place] [address] [phone] * (ABNORMAL) Lipid Panel, Standard (01/16/2024 9:40 AM EDT) Triglycerides 199(H) <150 mg/dL [facility] Comment:Desirable Triglyceri de: less than 150 mg/dLBorderline High Triglyceride 150-199 mg/dLHigh Triglyceride: 200-499 mg/dLVery High Triglyceride: greater than or equal to 5OO mg/dL Cholesterol 150 <200 mg/dL [facility] Comment:Desirable Cholestero l: less than 200 mg/dLBorderline High Cholesterol: 200-239 mg/dLHigh Cholesterol: greater than 239 mg/dL LDL Cholesterol Calculated 63 <100 mg/dL [facility] Comment:Desirable LDL: less than 100 mg/dLNear Optimal/Above Optimal LDL: 110- 129 mg/dLBorderline High LDL: 130-159 mg/dLHigh LDL: 160-189 mg/dLVery High LDL: greater than or equal to 190 mg/dL HDL Cholesterol 48 >40 mg/dL [facility] Comment:Desirable HDL: great er than 40 mg/dL Note: This HDL assay may give artificially low results in patients with liver disease. Blood Venous blood specimen / Unknown 01/16/2024 9:40 AM EDT 01/16/2024 11:20 AM EDT us Eddie Marshall MD LAB BLOOD ORDERABLES Final Resul t Performing Organization Address City/[facility]/ZIP Co de Phone Number [facility] [address] [place] [phone] * Albumin, Random Urine W/Creatinine (01/16/2024 9:35 AM EDT) Creatinine, Urine 27.62 mg/dL [facility] Microalbumin Urine <5.0 mg/L [facility] Microalbum Creatinine Ratio Ur TNP <30 ug/mg cr [facility] Comment:Unable to calculate albumin/creatinine ratio due to lowmicroalbumin or creatinine result. Urine (Urine, Random) 01/16/2024 9:35 AM EDT 01/16/2024 11:12 AM EDT us Eddie Marshall MD LAB URINE ORDERABLES Final Resul t [facility] [address] [place] [address] [phone] * Hm Diabetes Eye Exam (05/16/2023) Eye Exam Normal Normal Eddie Marshall MD HEALTH MAINTENANCE Final Result * (ABNORMAL) Hepatitis Panel, General (11/18/2022 2:07 PM EDT) Hepatitis A Antibody Total REACTIVE( A) NON-REACT NAHID [facility] Comment: For additional information, please refer to http://Adify.[email or web address]/faq/NBC305 (This link is being provided for informational/ educational purposes only.) Hepatitis B Surface Antibody QL NON-REACT NAHID NON-REACT NAHID [facility] Hepatitis B Surface Ag NON-REACT NAHID NON-REACT NAHID [facility] Hepatitis B Core Antibody Total NON-REACT NAHID NON-REACT NAHID [facility] Hepatitis C Antibody NON-REACT NAHID NON-REACT NAHID [facility] Index 0.07 <1.00 TIM [facility] Comment: HCV antibody was non-reactive. There is no laboratory evidence of HCV infection. In most cases, no further action is required. However, if recent HCV exposure is suspected, a test for HCV RNA (test code 42378) is suggested. For additional information please refer to http://Adify.CourseNetworking/faq/WMG39q2 (This link is being provided for informational/ educational purposes only.) 11/18/2022 2:07 PM EDT 11/18/2022 2:09 PM EDT Narrative [facility] - 11/19/2022 6:51 AM EDT COLLECTION KIT GIVEN TO PATIENT. PATIENT ADVISED TO RETURN. Mckenzie RODRIGUEZ LAB BLOOD ORDERABLES Final Res ult [facility] [address] [place] [address], [place] [address] [facility] [address] [place] [address] from Last 3 Months or Most Recently Relevant to Health Maintenance Insurance [employer] Care Teams Seasonal Sales Associate Relationship Specialty Start Date End Date Name, MD Eddie [address] [place] [address] PCP - General Family Medicine [facility]
--- OUTSIDE RECORDS SUMMARY | 2024-09-20 13:19 | XMS_ITS | Encounter Summary ---
Author Organization [employer] Address [address] [place] [address] 7t [place] [address] Care Team Providers Care Cable Engineer Outside Plant Name Role Phone Name, Eddie GILMORE Primary Care Provider [phone] Encounter Details Date Type Department Care Team (Late st Contact Info) Description 09/20/2024 Orders Only [facility] External Provider, [facility] Social History Tobacco Use Types Packs/Day [...] EDT Office Visit [facility] [address] [place] [address] Name, MD Eddie [address] [place] [address] 11/12/2024 9:45 AM EDT Office Visit [address] [address] documented as of this encounter Procedures Procedure Name Priority Date/Time Associated Diagnosis Comments XR CHEST 2 VIEWS Routine 09/20/2024 10:1 2 AM EDT documented in this encounter Results * XR Chest 2 Views (09/20/2024 10:12 AM EDT) Anatomical Region Laterality Modality Chest Radiographic Tanya ging 09/20/2024 10:1 2 AM EDT Narrative 09/20/2024 10:27 AM EDT ? [facility] ?[address] ?[place] [address] ?XRay Report ? Signed ? Patient: Jenniffer,Celeste ?MR#: [id number] ?? 4 ? : 1945 ?Acct:[id number] ? Age/Sex: 78 / F ?ADM Date: 04/04/25 ? Loc: HO.XRAY ? Attending Dr: Maria Esther Blum CONTROL CABINET ASSEMBLER ? Ordering Physician: Maria Esther Blum NP ?? Date of Service: 09/20/24 ?? Procedure(s): XR chest 2V ?? Accession Number(s): [id number] ? cc: Name,Eddie GILMORE; Maria Esther Blum [...] DD/ 1012 ? TD/TT: 09/20/24 1017 ? Warehouse Handler: ? Procedure Note Sahil Tellez - 09/20/2024 [place] [address] XRay Report Signed Patient: Celeste AbadMR#: [id number] 4 : 1945cct:[id number] Age/Sex: 78 / FADM Date: 09/20/24 Loc: [facility] Attending Dr: Maria Esther Blum NP Ordering Physician: Maria Esther Blum NP Date of Service: 09/20/24 Procedure(s): XR chest 2V Accession Number(s): [id number] cc: Eddie Marshall MD; Maria Esther Blum [...] 09/20/24 1024 DD/ 1012 TD/TT: 09/20/24 1017 Warehouse Handler: [facility] External Provider IMG XR PROCEDURES Final Result documented in this encounter Visit Diagnoses Not on filedocumented in this encounter Additional Health Concerns Assessment Noted Time PHQ-9 Depression Total Score: 9 05/10/20 24 11:56 AM EST documented as of this encounter Care Teams Cable Engineer Outside Plant Relationship Specialty Start Date End Date Name, MD Eddie [address] [place] [address] PCP - General Family Medicine 09/16/15 [place] [facility] 07/01/24 documented as of this encounter
--- OUTSIDE RECORDS SUMMARY | 2024-09-20 13:19 | XMS_ITS | Encounter Summary ---
Author Organization [employer] Address [address] [place] [address] 7 [place] [address] Care Team Providers Care Fiber Drier Operator Name Role Phone Name, Eddie GILMORE Primary Care Provider [phone] Reason for Visit * Reason Onset Date Comments Medication Question 09/05/2023 Encounter Details Date Type Department Care Team ([facility] st Contact Info) Description 09/05/2023 Telephone [facility] [address] [place], [place] [phone] Name, MD Eddie 230 [place] [address] Medication Question Social History Tobacco Use Types [...] EDT Office Visit [facility] [address] [place] [address] Name, MD Eddie [address] [place] [address] 11/12/2024 9:45 AM EDT Office Visit [facility] [address] [place] [address] documented as of this encounter Visit Diagnoses Not on filedocumented in this encounter Additional Health Concerns Assessment Noted Time PHQ-9 Depression Total Score: 10 11/28/ 023 1:16 PM EDT documented as of this encounter Care Teams Fiber Drier Operator Relationship Specialty Start Date End Date Name, MD Eddie 230 [place] [address] PCP - General Family Medicine 09/16/15 [place] [facility] 07/01/24 documented as of this encounter
--- OUTSIDE RECORDS SUMMARY | 2024-09-20 13:19 | XMS_ITS | Encounter Summary ---
Author Organization [employer] Address [address] [place] [address] 7 [place] [address] Care Team Providers Care Malted Milk Supervisor Name Role Phone Name, Eddie GILMORE Primary Care Provider [phone] Reason for Visit * Reason Comments Med Refill Encounter Details Date Type Department Care Team (Late Contact Info) Description 12/01/2022 Refill [facility] [address] [place], [place] [phone] Name, MD Eddie [address] [place] [address] Controlled type 2 diabetes mellitus with complication, without long-term current use of insulin ([facility]) Social History Tobacco Use Types [...] Description 10/29/2024 2:30 PM EDT Office Visit [place] [facility] [place] [address] Name, MD Eddie [facility] [place] [address] 11/12/2024 9:45 AM EDT Office Visit [place] [facility] [place] [address] documented as of this encounter Visit Diagnoses Diagnosis Controlled type 2 diabetes mellitus with complication, without long-term current use of insulin ([facility]) documented in this encounter Additional Health Concerns Assessment Noted Time PHQ-9 Depression Total Score: 10 023 1:16 PM EDT documented as of this encounter Care Teams Malted Milk Supervisor Relationship Specialty Start Date End Date Name, [place] [address] PCP - General Family Medicine 09/16/15 [place] [facility] 07/01/24 documented as of this encounter
--- OUTSIDE RECORDS SUMMARY | 2024-09-20 13:19 | XMS_ITS | Encounter Summary ---
Author Organization [facility] [employer] Address [address] [place] [address] 7 [place] [address] Care Team Providers Care Cable Repairer Name Role Phone Name, Eddie GILMORE Primary Care Provider [phone] Encounter Details Date Type Department Care Team ([facility] Contact Info) Description 11/18/2022 Abstract [facility] MEDICINE [address] [place] [address] [phone] Name, MD Eddie [address] [place] [address] [phone] Social History Tobacco Use Types Packs/Day Years [...] Upcoming Encounters Date Type Department Care Team ([facility] Contact Info) Description 10/29/2024 2:30 PM EDT Office Visit [facility] [address] [place] [address] Name, MD Eddie [address] [place] [address] [phone] 11/12/2024 9:45 AM EDT Office Visit [facility] 230 [place] [address] documented as of this encounter Visit Diagnoses Not on filedocumented in this encounter Care Teams Cable Repairer Relationship Specialty Start Date End Date Name, MD Eddie [address] [place] [address] PCP - General Family Medicine 09/16/15 [place] A 07/01/24 documented as of this encounter
--- OUTSIDE RECORDS SUMMARY | 2024-09-20 13:19 | XMS_ITS | Encounter Summary ---
Author Organization [employer] Address [address] [place] [address] 7 [place] [address] Care Team Providers Care Concrete Polisher Name Role Phone Name, Eddie GILMORE Primary Care Provider [phone] Reason for Visit * Reason Comments Med Refill Encounter Details Date Type Department Care Team (Late st Contact Info) Description 09/15/2024 Refill [facility] 230 [place], [place] [phone] Name, MD Eddie 230 [place] [address] Social History Tobacco Use Types Packs/Day Years [...] Description 10/29/2024 2:30 PM EDT Office Visit [address] [address] Name, MD Eddie [address] [place] [address] 11/12/2024 9:45 AM EDT Office Visit [address] [address] documented as of this encounter Visit Diagnoses Not on filedocumented in this encounter Additional Health Concerns Assessment Noted Time PHQ-9 Depression Total Score: 9 05/10/20 24 11:56 AM EST documented as of this encounter Care Teams Concrete Polisher Relationship Specialty Start Date End Date NameEddie MD [address] [place] [address] PCP - General Family Medicine 09/16/15 [place] [facility] 07/01/24 documented as of this encounter
--- OUTSIDE RECORDS SUMMARY | 2024-09-20 13:19 | XMS_ITS | Encounter Summary ---
Author Organization [employer] Address [address] [place] [address] [place] [address] Care Team Providers Care Bulb Farmworker Name Role Phone Name, Eddie GILMORE Primary Care Provider [phone] Reason for Visit * Reason Onset Date Comments Hospital Follow-up 11/10/2022 Encounter Details Date Type Department Care Team (Late st Contact Info) Description 11/10/2022 Refill [facility]ICINE [address] [place], [place] [phone] Name, MD Eddie 230 [place] [address] Social History Tobacco Use Types Packs/Day Years [...] Jackman Sent: 11/21/2022 5:23 PM EDT To: [facility] Team Nurses Hi team! Sent this pt to the ED over the weekend for Hgb 7. Got admitted and looks like recently discharged. Can you please outreach her for status check and sched HDF w/ Name? Thank you!! * Telephone Encounter - Suzette Singh RN - 11/22/2022 11:10 AM EDT T/C to [phone] to schedule HDF apt. No answer. LVM to call back on [phone]. ----- Message from Amber Roger RN sent at 11/22/2022 9:06 AM EDT ----- ----- Message ----- From: DENIS Jackman Sent: 11/21/2022 5:23 PM EDT To: [facility] Team Nurses Oh team! Sent this pt [...] Description 10/29/2024 2:30 PM EDT Office Visit [facility] MEDICINE [address] [place] [address] Eddie Marshall MD [address] [place] [address] 11/12/2024 9:45 AM EDT Office Visit [address] [address] documented as of this encounter Visit Diagnoses Not on filedocumented in this encounter Care Teams Bulb Farmworker Relationship Specialty Start Date End Date Eddie Marshall MD [address] [place] [address] PCP - General Family Medicine 09/16/15 [place] [facility] 07/01/24 documented as of this encounter
--- OUTSIDE RECORDS SUMMARY | 2024-09-20 13:19 | XMS_ITS | Encounter Summary ---
Author Organization [employer] Address [address] [place] [address] 7 [place] [address] Care Team Providers Care Candy Dipper Name Role Phone Name, Eddie GILMORE Primary Care Provider [phone] Reason for Visit * Reason Onset Date Comments Durable Medical Equipment 09/11/2024 Encounter Details Date Type Department Care Team ([facility] st Contact Info) Description 09/11/2024 Telephone [facility] MEDICINE [address] [place], [place] [phone] Name, MD Edide [address] [place] [address] Durable Medical Equipment Social History Tobacco Use [...] encounter Miscellaneous Notes * Telephone Encounter - aFdia Adrian - 09/20/2024 9:33 AM EDT RX for Wheel chair signed and faxed to [employer] . Confirmation received and sent to scan. If patient calls to check status on above, please advise them to contact [employer] at [phone]. * Telephone Encounter - Fadia Adrian - 09/13/2024 10:30 AM EDT DME RX for transport Wheel chair generated and placed on providers desk for signature. * Telephone Encounter - Will Badillo - 09/11/2024 9:44 AM EDT Tc from Lilly with [employer] stating that pt is requesting a transport wheelchair to be sent [facility]. Contact Lilly at [phone] documented in this encounter Plan of Treatment Upcoming Encounters Date Type Department Care Team (Late st Contact Info) Description 10/29/2024 2:30 PM EDT Office Visit [facility] [address] [place] [address] Name, [place] [address] 11/12/2024 9:45 AM EDT Office Visit [facility] [place] [address] documented as of this encounter Visit Diagnoses Not on filedocumented in this encounter Additional Health Concerns Assessment Noted Time PHQ-9 Depression Total Score: 9 05/10/20 24 11:56 AM EST documented as of this encounter Care Teams Candy Dipper Relationship Specialty Start Date End Date Name, MD Eddie [facility] [place] [address] PCP - General Family Medicine 09/16/15 [place] A 07/01/24 documented as of this encounter
--- OUTSIDE RECORDS SUMMARY | 2024-09-20 13:19 | XMS_ITS | Encounter Summary ---
Author Organization [facility] [employer] Address [address] [place] [address] [place] [address] Care Team Providers Care Soil Conservationist Name Role Phone NameEddie MD Primary Care Provider Reason for Visit * Reason Comments Med Refill Encounter Details Date Type Department Care Team (Late Contact Info) Description 02/26/2023 Refill [facility]INE [address] [place] [address] [phone] NameEddie MD [address] [place] [address] [phone] Chronic pain syndrome Social History Tobacco Use [...] Description 10/29/2024 2:30 PM EDT Office Visit [facility] [address] [place] [address] [phone] Eddie Masrhall MD [address] [place] [address] [phone] 11/12/2024 9:45 AM EDT Office Visit [facility] 230 [place] [address] documented as of this encounter Visit Diagnoses Diagnosis Chronic pain syndrome documented in this encounter Additional Health Concerns Assessment Noted Time PHQ-9 Depression Total Score: 10 023 1:16 PM EDT documented as of this encounter Care Teams Soil Conservationist Relationship Specialty Start Date End Date Name, MD Eddie [address] [place] [address] PCP - General Family Medicine 09/16/15 [place] A 07/01/24 documented as of this encounter
--- OUTSIDE RECORDS SUMMARY | 2024-09-20 13:19 | XMS_ITS | Encounter Summary ---
Author Organization [employer] Address [address] [place] [address] 7t [place] [address] Care Team Providers Care Brim Rounder Name Role Phone Name, Eddie GILMORE Primary Care Provider [phone] Encounter Details Date Type Department Care Team ([facility] st Contact Info) Description 12/07/2022 Telephone [facility]INE 230 [place], [place] [phone] Name, MD Eddie [address] [place] [address] Social History Tobacco Use Types Packs/Day Years [...] update PCP now. Ordering provider Pierce Pillai ANIMAL CYTOLOGIST Follow with fredyn as indicated. Results faxed at time of call to [phone]. Ref.# [id number] C documented in this encounter Plan of Treatment Upcoming Encounters Date Type Department Care Team (Late st Contact Info) Description 10/29/2024 2:30 PM EDT Office Visit [facility] MEDICINE [address] [place] [address] Name, MD Eddie [address] [place] [address] 11/12/2024 9:45 AM EDT Office Visit [address] [address] documented as of this encounter Visit Diagnoses Not on filedocumented in this encounter Additional Health Concerns Assessment Noted Time PHQ-9 Depression Total Score: 10 023 1:16 PM EDT documented as of this encounter Care Teams Brim Rounder Relationship Specialty Start Date End Date Name, MD Eddie [address] [place] [address] PCP - General Family Medicine 09/16/15 [facility] [facility] 07/01/24 documented as of this encounter
--- OUTSIDE RECORDS SUMMARY | 2024-09-20 13:19 | XMS_ITS | Encounter Summary ---
Author Organization [employer] Address [address] [place] [address] 7 [place] [address] Care Team Providers Care Clinical Quality Assurance Specialist Name Role Phone Name, Eddie GILMORE Primary Care Provider [phone] Reason for Visit * Reason Comments Med Refill Encounter Details Date Type Department Care Team (Late st Contact Info) Description 06/18/2023 Refill [facility] MEDICINE 230 [place], [place] [phone] Name, MD Eddie [address] [place], [place] [phone] Chronic pain syndrome Social History Tobacco Use [...] Description 10/29/2024 2:30 PM EDT Office Visit [address] [address] NameEddie MD [address] [place] [address] 11/12/2024 9:45 AM EDT Office Visit [address] [address] documented as of this encounter Visit Diagnoses Diagnosis Chronic pain syndrome documented in this encounter Additional Health Concerns Assessment Noted Time PHQ-9 Depression Total Score: 10 023 1:16 PM EDT documented as of this encounter Care Teams Clinical Quality Assurance Specialist Relationship Specialty Start Date End Date NameEddie MD [address] [place] [address] PCP - General Family Medicine 09/16/15 [place] [facility] 07/01/24 documented as of this encounter
--- OUTSIDE RECORDS SUMMARY | 2024-09-20 13:19 | XMS_ITS | Encounter Summary ---
Author Organization [employer] Address [address] [place] [address] 7 [place] [address] Care Team Providers Care Kettle Operator Name Role Phone Name, Eddie GILMORE Primary Care Provider [phone] Reason for Visit * Reason Onset Date Comments Active Med List 06/28/2023 Encounter Details Date Type Department Care Team ([facility] st Contact Info) Description 06/28/2023 Telephone [facility] MEDICINE 230 [place], [place] [phone] Name, MD Eddie 230 [place] [address] Active Med List Social History Tobacco Use [...] requesting a updated active medication list technical writer did attempt to transfer to Medical records so that she can obtain this information but they kept transferring back to the call center. [facility] [address], [place], [place] [phone] documented in this encounter Plan of Treatment Upcoming Encounters Date Type Department Care Team (Late st Contact Info) Description 10/29/2024 2:30 PM EDT Office Visit [facility] MEDICINE [address] [place] [address] Name, MD Eddie [address] [place] [address] 11/12/2024 9:45 AM EDT Office Visit [facility] [address] [place] [address] documented as of this encounter Visit Diagnoses Not on filedocumented in this encounter Additional Health Concerns Assessment Noted Time PHQ-9 Depression Total Score: 10 023 1:16 PM EDT documented as of this encounter Care Teams Kettle Operator Relationship Specialty Start Date End Date Name, MD Eddie 230 [facility] [place] [address] PCP - General Family Medicine 09/16/15 [place] [facility] 07/01/24 documented as of this encounter
--- OUTSIDE RECORDS SUMMARY | 2024-09-20 13:20 | XMS_ITS | Encounter Summary ---
Author Organization [employer] Address [address] [place] [address] [place] [address] Care Team Providers Care Skating Rink Manager Name Role Phone Name, Eddie GILMORE Primary Care Provider [phone] Reason for Visit * Reason Comments Med Refill Encounter Details Date Type Department Care Team (Late st Contact Info) Description 01/29/2023 Refill [facility] MEDICINE [address] [place] [address] [phone] Farhana Singh FNP [address] [place] [address] [place] [address] Social History Tobacco Use Types Packs/Day Years [...] Office Visit [facility]ICINE [address] [place] [address] [phone] Name, MD Eddie [address] [place] [address] [phone] 11/12/2024 9:45 AM EDT Office Visit [facility] [address] [facility] [place] [address] documented as of this encounter Visit Diagnoses Not on filedocumented in this encounter Additional Health Concerns Assessment Noted Time PHQ-9 Depression Total Score: 10 11/28/ 023 1:16 PM EDT documented as of this encounter Care Teams Skating Rink Manager Relationship Specialty Start Date End Date Name, MD Eddie [address] [facility] [place] [address] PCP - General Family Medicine 09/16/15 [place] [facility] 07/01/24 documented as of this encounter
--- OUTSIDE RECORDS SUMMARY | 2024-09-20 13:20 | XMS_ITS | Encounter Summary ---
Author Organization [employer] Address [address] [place] [address] 7 [place] [address] Care Team Providers Care Decision Unit Rn Name Role Phone Name, Eddie GILMORE Primary Care Provider [phone] Reason for Visit * Reason Comments Med Refill Encounter Details Date Type Department Care Team (Late Contact Info) Description 01/04/2023 Refill [facility] MEDICINE [address] [place] [address] [phone] Name, MD Eddie [address] [place] [address] Gastroesophageal reflux disease, unspecified whether esophagitis present [...] Description 10/29/2024 2:30 PM EDT Office Visit [facility] 230 [facility] [place] [address] Name, [place] [address] 11/12/2024 9:45 AM EDT Office Visit [facility] [place] [address] documented as of this encounter Visit Diagnoses Diagnosis Gastroesophageal reflux disease, unspecified whether esophagitis present documented in this encounter Additional Health Concerns Assessment Noted Time PHQ-9 Depression Total Score: 10 023 1:16 PM EDT documented as of this encounter Care Teams Decision Unit Rn Relationship Specialty Start Date End Date Name, [place] [address] PCP - General Family Medicine 09/16/15 [place] [facility] 07/01/24 documented as of this encounter
--- OUTSIDE RECORDS SUMMARY | 2024-09-20 13:20 | XMS_ITS | Encounter Summary ---
Author Organization [employer] Address [address] [place] [address] 7 [place] [address] Care Team Providers Care Upholsterer Inside Name Role Phone Name, Eddie GILMORE Primary Care Provider [phone] Reason for Visit * Reason Onset Date Comments Referral 02/02/2023 Back dated refer ral Encounter Details Date Type Department Care Team ([facility] st Contact Info) Description 02/02/[address] [facility] MEDICINE [address] [place], [place] [phone] Name, MD Eddie [address] [place] [address] Referral (Back dated referral ) Social History [...] 1:40 PM EDT Tc from Kasie at [facility] requesting status on message below regarding referral. Fax number [phone]. Any questions please call [phone] * Telephone Encounter - Amber Roger RN - 02/03/2023 10:34 AM EDT Please review message below regarding backdated referral for these dates * Telephone Encounter - Laure Mcgill - 02/02/2023 2:07 PM EDT Tc from Kasie at [facility] calling in regards to referral needing to be back dated. Patient was seen at the office on 01/03/23 and 01/11/23. Fax number [phone]. Any questions please call [phone]. documented in this encounter Plan of Treatment Upcoming Encounters Date Type Department Care Team (Late st Contact Info) Description 10/29/2024 2:30 PM EDT Office Visit [address] [address] Name, MD Eddie [address] [place] [address] 11/12/2024 9:45 AM EDT Office Visit [address] [address] documented as of this encounter Visit Diagnoses Not on filedocumented in this encounter Additional Health Concerns Assessment Noted Time PHQ-9 Depression Total Score: 10 023 1:16 PM EDT documented as of this encounter Care Teams Upholsterer Inside Relationship Specialty Start Date End Date Name, MD Eddie [address] [place] [address] PCP - General Family Medicine 09/16/15 Jerica SEN 07/01/24 documented as of this encounter
[2024-09-20 14:26] LABS: Creatinine, 24Hr Urine 0.7 G/Day (1.0-2.0); Total Volume 24 Hour Urine 1675 mL
[2024-09-24 17:33] LABS: Calcium, 24 Hr Urine 335 mg/24 h; Calcium/Creatinine Ratio 488 mg/g creat (30-275); Creatinine 24Hr Urine 0.69 g/24 h (0.50-2.15)
== END 2024-09-19 00:01 | disposition home or self-care (01) ==
LOC: HO.LNP
PROVIDERS: Visit Provider Internal Medicine Endocrinology, Diabetes & Metabolism
DX: M81.0 Age-related osteoporosis without current pathological fracture (principal)
CPT/HCPCS: 82340; 82570

== ENCOUNTER 2024-09-20 10:02 | Outpatient (REF) | payer MEDICARE, SELFPAY ==
--- NOTE | ~2024-09-20 | XR_ITS ---
EXAMINATION: XR CHEST 2 VIEWS HISTORY: J44.9 - Chronic obstructive pulmonary disease, unspecified COMPARISON: Comparison is made with the prior examination dated 02/24/2022. FINDINGS: PA and lateral views of the chest are submitted. There is chronic scarring in both lower lobes. There is no pleural effusion, pneumothorax, or pulmonary vascular congestion. The heart is normal in size. There is coronary arterial calcification and calcification of the aortic arch. There is a moderate hiatal hernia. There are surgical clips in the right upper quadrant. There is mild degenerative disc disease of the spine. XR/XR chest 2V IMPRESSION: Moderate hiatal hernia. No acute cardiopulmonary abnormality. Electronically signed by: Bucky Downing MD 09/20/2024 10:24 AM EDT
--- OUTSIDE RECORDS SUMMARY | 2024-09-20 11:23 | XMS_ITS | Encounter Summary ---
Author Organization [employer] Address [address] [place] [address] [place] [address] Care Team Providers Care Auto Overhauler Name Role Phone Name, Eddie GILMORE Primary Care Provider [phone] Reason for Visit * Reason Onset Date Comments Hospital Follow-up 11/10/2022 Encounter Details Date Type Department Care Team (Late st Contact Info) Description 11/10/2022 Refill [facility] [address] [place], [place] [phone] Name, MD Eddie [address] [place] [address] Social History Tobacco Use Types Packs/Day Years [...] Jackman Sent: 11/21/2022 5:23 PM EDT To: [facility] Team Nurses Hi team! Sent this pt to the ED over the weekend for Hgb 7. Got admitted and looks like recently discharged. Can you please outreach her for status check and sched HDF w/ Name? Thank you!! * Telephone Encounter - Suzette Singh RN - 11/22/2022 11:10 AM EDT T/C to [phone] to schedule HDF apt. No answer. LVM to call back on [phone]. ----- Message from Amber Roegr RN sent at 11/22/2022 9:06 AM EDT ----- ----- Message ----- From: DENIS Jackman Sent: 11/21/2022 5:23 PM EDT To: [facility] Team Nurses Ne team! Sent this pt to the ED [...] PM EDT Office Visit [facility] [address] [place] [address] Eddie Marshall MD [address] [place] [phone] 11/12/2024 9:45 AM EDT Office Visit [address] [address] documented as of this encounter Visit Diagnoses Not on filedocumented in this encounter Care Teams Auto Overhauler Relationship Specialty Start Date End Date Eddie Marshall MD [address] [place] [address] PCP - General Family Medicine 09/16/15 Jerica [facility] 07/01/24 documented as of this encounter
--- OUTSIDE RECORDS SUMMARY | 2024-09-20 11:23 | XMS_ITS | Data Portability ---
Author Organization [place] [facility] Address [address] [place] [phone] Care Team Providers Care Tap Dancer Name Role Phone NAME, DELIA Primary Care Provider Assessment Encounter Date Assessment Date Assessment LastModified by Organization Details LastModified Time 09/06/2024 09/06/2024 Nasal examination did not identify a prominent bleeding source to explain the patient's history of epistaxis. Recommend continuing medical management with saline nasal spray 4-6 times daily, saline gel at night, Afrin with episodes of bleeding, and packing the nose with Bleed Cease (available OTC) if any additional bleeding. Patient may use Ponaris Nasal Emollient 1/2 dropper twice daily as needed with dryness. If taking antiplatelet or anticoagulant therapy discuss holding with prescribing provider. Return to office as needed or go to emergency room with severe episodes. [email or web address] Not available 09/06/2024 14:24:44 Plan of Treatment Reminders Order Date Submit [...] Organization Details Recorded Time Essential hypertens ion 94191301 Active 2014 Essential (primary) hypertensi on; Note: Date Diagnosed: 05/07/2015 9:43 AM (I10) Not Available [facility] 02:37:47 Bleeding from nose 299432460 Active 2014 Epistaxis; Note: Date Diagnosed: 05/07/2015 9:43 AM (R04.0) Not Available [employer] 4 02:37:50 Anterior epistaxis 233273924 Active 2024 YANIV GARCIA MD [address] [facility],[place] [address], [place], [address] , [facility] 5 12:32:29 Problem Notes None recorded. Procedures Surgical History Date Name Laterality Status Provider Name and Address Organization Details Recorded Time 5 Epistaxis Simple Nasal Cautery Right completed YANIV GARCIA MD [address] [facility], [place], [address], [facility] 08/11/2024 12:31:38 Imaging Results None recorded. Procedure Notes None recorded. Medical Equipment None Reported. Allergies Allergen ID Allergen Name Allergen Category Reaction Reaction Severity Criticality Documentation Date Start Date Code Code System Note Provider Name and Address Organization Details Recorded Time 04278 atorvasta tin medicatio n other Not available Not available 10/31/2023 39935 RxNorm React ion: unkno wn, unspe cifie d;; Not Available [facility] 4 00:59:20 Medications Name Sig Start [...] 24 hr 08/09 completed Medicati on ID: [id number] D uration Value: 90 Brand Name: oxybutyn in chloride Send Method: E-Prescr ibed Sub s Allowed: subs OK Speci al Instruct ion: TAKE 1 TABLET BY MOUTH EVERY DAY Medi cationGe nericNam e: oxybutyn in chloride Not Available Not Available Not Available Patanol 0.1 % eye drops 08/09 completed Medicati on ID: 213207 B rand Name: Patanol Send Method: E-Prescr [...] layed release 08/09 completed Medicati on ID: 290399 B rand Name: aspirin Send Method: E-Prescr ibed Sub s Allowed: subs OK Medic ationGen ericName : aspirin Not Available Not Available Not Available tramadol 50 mg tablet 2014 active Medicati on ID: 395866 D uration Value: 28 Brand Name: tramadol Send Method: E-Prescr ibed Sub s Allowed: subs OK Speci al Instruct ion: TAKE 1 TABLET BY MOUTH EVERY 8 HOURS NEEDED FOR PAIN Med icationG enericNa me: tramadol Not Available Not Available Not Available nortripty line 25 mg capsule 08/09 completed Medicati on ID: 528561 D uration Value: 90 Brand Name: nortript yline Se nd Method: E-Prescr ibed Sub s Allowed: subs OK Speci al Instruct ion: TAKE 3 CAPSULES BY MOUTH AT BEDTIME Medicati onGeneri cName: nortript yline Not Available Not Available Not Available levothyro xine 100 mcg tablet 08/09 completed Medicati on ID: 146162 D uration Value: 90 Brand Name: levothyr [...] elayed release 2014 active Medicati on ID: 338214 D uration Value: 90 Brand Name: omeprazo le Send Method: E-Prescr ibed Sub s Allowed: subs ALESSIO Orantes al Instruct ion: TAKE 2 CAPSULES BY MOUTH DAILY. Alexx Goodwin Name: omeprazo le Not Available Not Available [...] ne propionat e 50 mcg/actua tion nasal spray,[facility] 2013 active Medicati on ID: 457557 D uration Value: 30 Brand Name: fluticas one Send Method: E-Prescr ibed Sub s Allowed: subs ALESSIO Orantes al Instruct ion: SPRAY 2 SPRAYS INTO EACH NOSTRIL DAILY Me dication GenericN delmi: fluticas one Not Available Not Available Not Available loratadin e 10 mg tablet 08/09 completed Medicati on ID: 870386 D uration Value: 30 Brand Name: loratadi ne Send Method: E-Prescr ibed Sub s Allowed: subs ALESSIO Orantes al Instruct ion: TAKE 1 TABLET BY MOUTH EVERY DAY Medi cationGe nericNam e: loratadi ne Not Available Not Available Not Available levothyro xine 112 mcg tablet TAKE 1 TABLET BY MOUTH EVERY MORNING active Not Available Not Available No t Available Tylenol Extra Strength 500 mg tablet active Medicati on ID: 678499 B rand Name: Tylenol Extra Strength Send [...] completed Not Available Not Available Not Available Advair HFA 115 mcg-21 mcg/actua tion aerosol inhaler INHALE 2 PUFFS BY MOUTH EVERY TWELVE HOURS. RINSE MOUTH AFTER USING. active Not Available Not Available No t Available trospium ER 60 mg capsule,e xtended [...] THE SAME TIME RINSE MOUTH AFTER USING 09/06 completed Not Available Not Available Not Available Breo Ellipta 200 mcg-25 mcg/dose powder for inhalatio n INHALE 1 PUFF BY MOUTH EVERY DAY AT THE SAME TIME RINSE MOUTH AFTER USING 09/06 completed Not Available Not Available Not Available naloxone 4 mg/actuat ion nasal spray FOR SUSPECTE D OPIOID OVERDOSE . SPRAY 0.1mL IN ONE NOSTRIL. REPEAT IN ALTERNAT E NOSTRIL 2-3 MINUTES IF NEEDED. SEEK MEDICAL ATTENTIO N IMMEDIAT TRINH EVEN IF PATIENT RESPONDS . active Not Available Not Available No t Available OneTouch Delica Plus Lancet 33 gauge active Not Available Not Available Not Available Vitals Date Recorded Body height Body mass index (BMI) Body weight Provider Name and Address Organization Details Last Updated DateTime 09/06/2024 157.48 cm 25.4 kg/m2 15217.34 g KELLY NAFISA [place] [facility] 09/06/2024 13:28:14 Social History None recorded. Functional Status None recorded. Mental Status None recorded. Family History Nothing Reported. Medical History Condition Response Heart Attack (NE) Y Anemia Y Stroke Y Hypertension Y Asthma Y Gynecological HistoryNo gynecological history recorded. Obstetrics History GPAL:G 0 P 0 0 0 0 Past Encounters Encounter ID Performer Location Encounter Start Date Encounter Closed Date Diagnosis/Indication Diagnosis SNOMED-CT Code Diagnosis ICD10 Code Diagnosis Note [id number] YANIV GARCIA MD [facility] [address] [address] 08/09/2024 09:39:15 08/09/2024 11:07:17 Anterior epistaxis 824826658 R04.0 78-year-ol d female with a history [...] for cautery on the left. Essential hypertension 43315273 I10 Long-term current use of antiplatelet drug 4994588234 24615 Z79.02 [id number] YANIV GARCIA MD [facility] [address] [place] [address] 09/06/2024 13:16:33 09/06/2024 13:54:17 Anterior epistaxis 076206708 R04.0 Bleeding from nose 81067 6005 R04.0 Essential hypertension 74082735 I10 Health Concerns Section Related Observation LastModified by Organization Detai ls LastModified Time None Recorded Concern Status LastModified by Organization Details LastModified Time None Recorded Advance Directives Directive None Recorded Payers Encounter Date Sequence Insurance Name Policy Number Policy Zapata Covered Member ID Zapata Member ID Guarantor Name 08/09/2024 1 [facility] (MEDICAID HMO) Celeste Abad [id number] Celeste Abad 09/06/2024 1 [facility] (MEDICAID HMO) Celeste Abad [id number] Celeste Abad Notes Date Note Type Note [...] to stop them YANIV GARCIA MD [address] [place] [address],[address], [address], [place] - [facility] 08/11/2024 12:36:32 09/06/2024 text/html 78yo female with hypertension on clopidogrel presents for reevaluation of right recurrent nosebleeds. Right septum cauterized 08/09/[address] Garcia. Patient reports persistent recurrent right-sided nasal bleeding every couple days. Most recent episode 3 days ago, managed quickly with nasal cease. She is in the process of scheduling iron transfusions through [facility]. She was recently diagnosed with emphysema. She continues to touch the nose frequently. YANIV GARCIA MD [address] [facility],[address], [address], [facility] - [facility] 09/06/2024 17:25:55 OBGyn Episode No OBEpisode recorded.
--- OUTSIDE RECORDS SUMMARY | 2024-09-20 11:23 | XMS_ITS | Encounter Summary ---
Author Organization [employer] Address [address] [place] [address] 7t [place] [address] Care Team Providers Care Travelift Operator Name Role Phone Name, Eddie GILMORE Primary Care Provider [phone] Encounter Details Date Type Department Care Team (Late st Contact Info) Description 09/20/2024 Orders Only [facility] External Provider, [facility] Social History Tobacco Use Types Packs/Day [...] Description 10/29/2024 2:30 PM EDT Office Visit [facility] [address] [place] [address] Name, MD Eddie [address] [place] [address] 11/12/2024 9:45 AM EDT Office Visit [address] [address] documented as of this encounter Procedures Procedure Name Priority Date/Time Associated Diagnosis Comments XR CHEST 2 VIEWS Routine 09/20/2024 10:1 2 AM EDT documented in this encounter Results * XR Chest 2 Views (09/20/2024 10:12 AM EDT) Anatomical Region Laterality Modality Chest Radiographic Tanya ging 09/20/2024 10:1 2 AM EDT Narrative 09/20/2024 10:27 AM EDT ? [facility] ?[address] ?[place] [address] ?XRay Report ? Signed ? Patient: Jenniffer,Celeste ?MR#: [id number] ?? 4 ? : 1945 ?Acct:[id number] ? Age/Sex: 78 / F ?ADM Date: 04/04/25 ? Loc: HO.XRAY ? Attending Dr: Maria Esther Blum ELECTRONIC DEVELOPMENT TECHNICIAN ? Ordering Physician: Maria Esther Blum NP ?? Date of Service: 09/20/24 ?? Procedure(s): XR chest 2V ?? Accession Number(s): [id number] ? cc: Name,Eddie GILMORE; Maria Esther Blum NP ? EXAMINATION: ??XR CHEST 2 VIEWS ? HISTORY: J44.9 - Chronic obstructive pulmonary disease, unspecified ? COMPARISON: Comparison is made with the prior examination dated ?? 02/24/2022. ? FINDINGS: ??PA and lateral views of the chest are submitted. There is ?? chronic scarring in both lower lobes. ??There is no pleural effusion, ?? pneumothorax, or pulmonary vascular congestion. ??The heart is normal in ?? size. There is coronary arterial calcification and calcification of the ?? aortic arch. There is a moderate hiatal hernia. There are surgical ?? clips in the right upper quadrant. ??There is mild degenerative disc ?? disease of the spine. ? XR/XR chest 2V ?? IMPRESSION: ?? Moderate hiatal hernia. No acute cardiopulmonary abnormality. ? Electronically signed by: ??Bucky Downing MD ??09/20/2024 10:24 AM EDT ? Dictated By: ?Bucky Downing MD ? Signed By: ?<Electronically signed by Bucky Downing MD in OV> ?09/20/24 1024 ? DD/ 1012 ? TD/TT: 09/20/24 1017 ? Casting Plug Assembler: ? Procedure Note Sahil Tellez - 09/20/2024 [place] [address] XRay Report Signed Patient: Celeste AbadMR#: [id number] 4 : 1945cct:[id number] Age/Sex: 78 / FADM Date: 09/20/24 Loc: [facility] Attending Dr: Maria Esther Blum NP Ordering Physician: Maria Esther Blum NP Date of Service: 09/20/24 Procedure(s): XR chest 2V Accession Number(s): [id number] cc: Eddie Marshall MD; Maria Esther Blum NP EXAMINATION: XR CHEST 2 VIEWS HISTORY: J44.9 - Chronic obstructive pulmonary disease, unspecified COMPARISON: Comparison is made with the prior examination dated 02/24/2022. FINDINGS: PA and lateral views of the chest are submitted. There is chronic scarring in both lower lobes. There is no pleural effusion, pneumothorax, or pulmonary vascular congestion. The heart is normal in size. There is coronary arterial calcification and calcification of the aortic arch. There is a moderate hiatal hernia. There are surgical clips in the right upper quadrant. There is mild degenerative disc disease of the spine. XR/XR chest 2V IMPRESSION: Moderate hiatal hernia. No acute cardiopulmonary abnormality. Electronically signed by: Bucky Downing MD 09/20/2024 10:24 AM EDT RP Dictated By: Bucky Downing MD Signed By: <Electronically signed by Bucky Downing MD in OV> 09/20/24 1024 DD/ 1012 TD/TT: 09/20/24 1017 Casting Plug Assembler: [facility] External Provider IMG XR PROCEDURES Final Result documented in this encounter Visit Diagnoses Not on filedocumented in this encounter Additional Health Concerns Assessment Noted Time PHQ-9 Depression Total Score: 9 05/10/20 24 11:56 AM EST documented as of this encounter Care Teams Travelift Operator Relationship Specialty Start Date End Date Name, MD Eddie [address] [place] [address] PCP - General Family Medicine 09/16/15 [place] [facility] 07/01/24 documented as of this encounter
--- OUTSIDE RECORDS SUMMARY | 2024-09-20 11:23 | XMS_ITS | Encounter Summary ---
Author Organization [employer] Address [address] [place] [address] 7 [place] [address] Care Team Providers Care Heavy Repairer Name Role Phone Name, Eddie GILMORE Primary Care Provider [phone] Reason for Visit * Reason Comments Med Refill Encounter Details Date Type Department Care Team (Late st Contact Info) Description 05/08/2023 Refill [facility] MEDICINE [address] [place], [place] [phone] Name, MD Eddie 230 [place], [place] [phone] Chronic pain syndrome Social History Tobacco Use [...] Description 10/29/2024 2:30 PM EDT Office Visit [address] [address] NameEddie MD [address] [place] [address] 11/12/2024 9:45 AM EDT Office Visit [address] [address] documented as of this encounter Visit Diagnoses Diagnosis Chronic pain syndrome documented in this encounter Additional Health Concerns Assessment Noted Time PHQ-9 Depression Total Score: 10 023 1:16 PM EDT documented as of this encounter Care Teams Heavy Repairer Relationship Specialty Start Date End Date NameEddie MD [address] [place] [address] PCP - General Family Medicine 09/16/15 Jer[place] [facility] 07/01/24 documented as of this encounter
--- OUTSIDE RECORDS SUMMARY | 2024-09-20 11:23 | XMS_ITS | Encounter Summary ---
Author Organization [employer] Address [address] [place] [address] 7 [place] [address] Care Team Providers Care Swatcher Name Role Phone Name, Eddie GILMORE Primary Care Provider [phone] Reason for Visit * Reason Onset Date Comments Medication Question 09/01/2023 Encounter Details Date Type Department Care Team ([facility] st Contact Info) Description 09/01/2023 Telephone [facility] MED[facility]INE [address] [place], [place] [phone] Name, MD Eddie 230 [place] [address] Medication Question Social History Tobacco Use Types [...] an add on. Please contact pharmacy at [phone]. documented in this encounter Plan of Treatment Upcoming Encounters Date Type Department Care Team (Late st Contact Info) Description 10/29/2024 2:30 PM EDT Office Visit [facility] [place] [address] Name, [place] [address] 11/12/2024 9:45 AM EDT Office Visit [facility] [place] [address] documented as of this encounter Visit Diagnoses Not on filedocumented in this encounter Additional Health Concerns Assessment Noted Time PHQ-9 Depression Total Score: 10 023 1:16 PM EDT documented as of this encounter Care Teams Swatcher Relationship Specialty Start Date End Date Name, [place] [address] PCP - General Family Medicine 09/16/15 Jerica A 07/01/24 documented as of this encounter
--- OUTSIDE RECORDS SUMMARY | 2024-09-20 11:23 | XMS_ITS | Encounter Summary ---
Author Organization [facility] [employer] Address [address] [place] [address] [place] [address] Care Team Providers Care Disability Examiner Name Role Phone NameEddie MD Primary Care Provider [phone] Reason for Visit * Reason Comments Med Refill Encounter Details Date Type Department Care Team (Late Contact Info) Description 02/26/2023 Refill [facility] MED[facility]INE [address] [place] [address] [phone] NameEddie MD [address] [place] [address] [phone] Chronic pain syndrome Social History Tobacco Use [...] Description 10/29/2024 2:30 PM EDT Office Visit [facility] MED[facility]INE [address] [place] [address] [phone] Eddie Marshall MD [address] [place] [address] [phone] 11/12/2024 9:45 AM EDT Office Visit [facility]INE 230 [place] [address] documented as of this encounter Visit Diagnoses Diagnosis Chronic pain syndrome documented in this encounter Additional Health Concerns Assessment Noted Time PHQ-9 Depression Total Score: 10 023 1:16 PM EDT documented as of this encounter Care Teams Disability Examiner Relationship Specialty Start Date End Date Name, MD Eddie 230 [place] [address] PCP - General Family Medicine 09/16/15 Jerica A 07/01/24 documented as of this encounter
--- OUTSIDE RECORDS SUMMARY | 2024-09-20 11:23 | XMS_ITS | Encounter Summary ---
Author Organization [employer] Address [address] [place] [address] 7 [place] [address] Care Team Providers Care Practice Representative Name Role Phone Name, Eddie GILMORE Primary Care Provider [phone] Reason for Visit * Reason Comments Med Refill Encounter Details Date Type Department Care Team (Late Contact Info) Description 01/04/2023 Refill [facility] MEDICINE [address] [place] [address] [phone] Name, MD Eddie 230 [place] [address] Gastroesophageal reflux disease, unspecified whether esophagitis present [...] Description 10/29/2024 2:30 PM EDT Office Visit [facility] [address] [facility] [place] [address] Name, [place] [address] 11/12/2024 9:45 AM EDT Office Visit [facility] [place] [address] documented as of this encounter Visit Diagnoses Diagnosis Gastroesophageal reflux disease, unspecified whether esophagitis present documented in this encounter Additional Health Concerns Assessment Noted Time PHQ-9 Depression Total Score: 10 023 1:16 PM EDT documented as of this encounter Care Teams Practice Representative Relationship Specialty Start Date End Date Name, [place] [address] PCP - General Family Medicine 09/16/15 Jer[place] [facility] 07/01/24 documented as of this encounter
--- OUTSIDE RECORDS SUMMARY | 2024-09-20 11:23 | XMS_ITS | Encounter Summary ---
Author Organization [employer] Address [address] [place] [address] [place] [address] Care Team Providers Care Power Plant Mechanic Name Role Phone Name, Eddie GILMORE Primary Care Provider [phone] Reason for Visit * Reason Comments Med Refill Encounter Details Date Type Department Care Team (Late st Contact Info) Description 01/29/2023 Refill [facility] MEDICINE [address] [place] [address] [phone] Farhana Singh FNP [address] [place] [address] [place] [address] Social History Tobacco Use Types Packs/Day Years [...] Description 10/29/2024 2:30 PM EDT Office Visit [facility] MEDICINE [address] [place] [address] [phone] Name, MD Eddie [address] [place] [address] [phone] 11/12/2024 9:45 AM EDT Office Visit [facility] [address] [facility] [place] [address] documented as of this encounter Visit Diagnoses Not on filedocumented in this encounter Additional Health Concerns Assessment Noted Time PHQ-9 Depression Total Score: 10 11/28/ 023 1:16 PM EDT documented as of this encounter Care Teams Power Plant Mechanic Relationship Specialty Start Date End Date Name, MD Eddie [address] [facility] [place] [address] PCP - General Family Medicine 09/16/15 Jerica [facility] 07/01/24 documented as of this encounter
--- OUTSIDE RECORDS SUMMARY | 2024-09-20 11:23 | XMS_ITS | Encounter Summary ---
Author Organization [employer] Address [address] [place] [address] 7 [place] [address] Care Team Providers Care Firefighter Marine Name Role Phone Name, Eddie GILMORE Primary Care Provider [phone] Reason for Visit * Reason Comments Med Refill Encounter Details Date Type Department Care Team (Late st Contact Info) Description 09/15/2024 Refill [facility] MEDICINE 230 [place], [place] [phone] Name, MD Eddie 230 [place] [address] Social History Tobacco Use Types Packs/Day Years [...] Description 10/29/2024 2:30 PM EDT Office Visit [address] [address] Name, MD Eddie [address] [place] [address] 11/12/2024 9:45 AM EDT Office Visit [address] [address] documented as of this encounter Visit Diagnoses Not on filedocumented in this encounter Additional Health Concerns Assessment Noted Time PHQ-9 Depression Total Score: 9 05/10/20 24 11:56 AM EST documented as of this encounter Care Teams Firefighter Marine Relationship Specialty Start Date End Date NameEddie MD [address] [place] [address] PCP - General Family Medicine 09/16/15 Jerica [facility] 07/01/24 documented as of this encounter
--- OUTSIDE RECORDS SUMMARY | 2024-09-20 11:23 | XMS_ITS | Encounter Summary ---
Author Organization [employer] Address [address] [place] [address] 7 [place] [address] Care Team Providers Care Production Zone Leader Name Role Phone Name, Eddie GILMORE Primary Care Provider [phone] Reason for Visit * Reason Onset Date Comments Durable Medical Equipment 09/11/2024 Encounter Details Date Type Department Care Team ([facility] st Contact Info) Description 09/11/[address] [facility] MEDICINE 230 [place], [place] [phone] Name, MD Eddie 230 [place] [address] Durable Medical Equipment Social History Tobacco Use Types Packs/Day Years [...] encounter Miscellaneous Notes * Telephone Encounter - Fadia Adrian - 09/20/2024 9:33 AM EDT RX for Wheel chair signed and faxed to [facility] [employer] . Confirmation received and sent to scan. If patient calls to check status on above, please advise them to contact [employer] at [phone]. * Telephone Encounter - Fadia Adrian - 09/13/2024 10:30 AM EDT DME RX for transport Wheel chair generated and placed on providers desk for signature. * Telephone Encounter - Will Badillo - 09/11/2024 9:44 AM EDT Tc from Lilly with [employer] stating that pt is requesting a transport wheelchair [facility]. Contact Lilly at [phone] documented in this encounter Plan of Treatment Upcoming Encounters Date Type Department Care Team (Late st Contact Info) Description 10/29/2024 2:30 PM EDT Office Visit [facility] MEDICINE [address] [place] [address] Name, MD [place] [address] 11/12/2024 9:45 AM EDT Office Visit [facility] [address] documented as of this encounter Visit Diagnoses Not on filedocumented in this encounter Additional Health Concerns Assessment Noted Time PHQ-9 Depression Total Score: 9 05/10/20 24 11:56 AM EST documented as of this encounter Care Teams Production Zone Leader Relationship Specialty Start Date End Date Name, MD Eddie [facility] [address] PCP - General Family Medicine 09/16/15 Jerica A 07/01/24 documented as of this encounter
--- OUTSIDE RECORDS SUMMARY | 2024-09-20 11:23 | XMS_ITS | Encounter Summary ---
Author Organization [employer] Address [address] [place] [address] 7 [place] [address] Care Team Providers Care Sole Tacker Name Role Phone Name, Eddie GILMORE Primary Care Provider Reason for Visit * Reason Onset Date Comments Call Back Request 09/19/2024 Encounter Details Date Type Department Care Team ([facility] st Contact Info) Description 09/19/[address] [facility] MEDICINE 230 [place] [address] Name, MD Eddie 230 [place], [place] [phone] Call Back Request Social History Tobacco Use Types Packs/Day [...] encounter Miscellaneous Notes * Telephone Encounter - Jess Ring RN - 09/19/2024 4:20 PM EDT Tc to pt in regards to referral request to Neurology. Pt reports the neurology office first told them that they did not take their insurance then told them their insurance is accepted. Pt then received a bill for $375 last March and is confised on how this happened.Pt states they cancelled their last appt because they were afraid they would be charged. Pt advised we'll call the office to find out more information then call them back. Pt expressed understanding. Tc to to Dr. Medina neurologyoffice to discuss further. [employer] Hat Engineer reports pt had their last appt on March 25 of last year and it looks like they did not have a referral at that time. Advised the senior receptionist a referral wassent out on our end on 02/05/24 and senior receptionist reports they most likely never received. They report we can discuss further with Phyllis who is apart of the billing apartment but they are not here today. Phyllis will be at their office on Monday, Monday and . Message forwarded to team nurse box to follow up with the billing department on Monday. Message forwarded to resource specialist jarek ROLAND. * Telephone Encounter - Will Cabreranandez - 09/19/2024 10:10 AM EDT Tc from pt requesting a call back regarding referral for Neurology. Contact pt at [phone] documented in this encounter Plan of Treatment Upcoming Encounters Date Type Department Care Team (Late st Contact Info) Description 10/29/2024 2:30 PM EDT Office Visit [address] [address] Name, MD Eddie [address] [place] [address] 11/12/2024 9:45 AM EDT Office Visit [address] [address] documented as of this encounter Visit Diagnoses Not on filedocumented in this encounter Additional Health Concerns Assessment Noted Time PHQ-9 Depression Total Score: 9 05/10/20 24 11:56 AM EST documented as of this encounter Care Teams Sole Tacker Relationship Specialty Start Date End Date NameEddie MD [address] [place] [address] PCP - General Family Medicine 09/16/15 Jerica BURGOSA 07/01/24 documented as of this encounter
--- OUTSIDE RECORDS SUMMARY | 2024-09-20 11:23 | XMS_ITS | Encounter Summary ---
Author Organization [facility] [employer] Address [address] [place] [address] 7 [place] [address] Care Team Providers Care Broke Beater Machine Operator Name Role Phone Name, Eddie GILMORE Primary Care Provider [phone] Encounter Details Date Type Department Care Team ([facility] Contact Info) Description 11/18/2022 Abstract [facility] MEDICINE [address] [place] [address] [phone] Name, MD Eddie [address] [place] [address] [phone] Social History Tobacco Use Types Packs/Day Years [...] Upcoming Encounters Date Type Department Care Team ([facility] Contact Info) Description 10/29/2024 2:30 PM EDT Office Visit [facility] MEDICINE [address] [place] [address] Name, MD Eddie [address] [place] [address] [phone] 11/12/2024 9:45 AM EDT Office Visit [facility] MEDICINE 230 [place] [address] documented as of this encounter Visit Diagnoses Not on filedocumented in this encounter Care Teams Broke Beater Machine Operator Relationship Specialty Start Date End Date Name, MD Eddie 230 [place] [address] PCP - General Family Medicine 09/16/15 Jerica A 07/01/24 documented as of this encounter
--- OUTSIDE RECORDS SUMMARY | 2024-09-20 11:23 | XMS_ITS | Encounter Summary ---
Author Organization [employer] Address [address] [place] [address] 7 [place] [address] Care Team Providers Care Body Masker Name Role Phone Name, Eddie GILMORE Primary Care Provider [phone] Reason for Visit * Reason Onset Date Comments Medication Question 09/05/2023 Encounter Details Date Type Department Care Team ([facility] st Contact Info) Description 09/05/2023 Telephone [facility] MEDICINE 230 [place], [place] [phone] Name, MD Eddie [address] [place] [address] Medication Question Social History Tobacco Use Types [...] Description 10/29/2024 2:30 PM EDT Office Visit [facility] MEDICINE [address] [place] [address] Name, MD Eddie [address] [place] [address] 11/12/2024 9:45 AM EDT Office Visit [facility] MEDICINE [address] [place] [phone] documented as of this encounter Visit Diagnoses Not on filedocumented in this encounter Additional Health Concerns Assessment Noted Time PHQ-9 Depression Total Score: 10 11/28/ 023 1:16 PM EDT documented as of this encounter Care Teams Body Masker Relationship Specialty Start Date End Date Name, MD Eddie [address] [place] [address] PCP - General Family Medicine 09/16/15 Jerica SEN 07/01/24 documented as of this encounter
--- OUTSIDE RECORDS SUMMARY | 2024-09-20 11:23 | XMS_ITS | Clinical Summary ---
Author Organization [employer] Address [address] [place] [address] 7[address] [place] [address] Care Team Providers Care Creative Services Designer Name Role Phone Name, Eddie GILMORE Primary Care Provider [phone] Allergies Active Allergy Reactions Criticality Noted Date [...] 06/01/20 22 Active Blood Glucose Monitoring Suppl ([employer] Verio Flex System) w/Device kit USE DIRECTED [...] in the morning. 01/10/20 23 Active Lancets ([employer] Delica Plus [id number]) miscIndications :Controlled type 2 diabetes mellitus with complication, without long-term current use of insulin ([facility]) USE TO CHECK BLOOD SUGAR TWICE A DAY 100 each 5 09/15/19 24 Active glucose blood ([employer] Verio) test stripIndication s:Controlled type 2 diabetes mellitus with complication, without long-term current use of insulin ([facility]) CHECK BY FINGERSTICK TWICE DAILY 50 strip [...] available. 2 each 2 03/22/20 24 Active pantoprazole (ProtoNix) 40 MG EC [...] mouth 2 times daily. 02/13/20 24 Active albuterol 108 (90 Base) MCG/ACT inhaler INHALE 2 PUFFS BY MOUTH EVERY 4 TO 6 HOURS NEEDED 8.5 g 1 08/20/19 25 Active oxyCODONE-aceta minophen (Percocet) 5-325 MG tabletIndicatio ns:Chronic pain syndrome Take 1 tablet by mouth every 8 (eight) hours if needed for severe pain for up to 28 days. Do not start before September 10, 2024. 84 tablet 09/11/19 25 2024 Active metFORMIN (Glucophage) 500 MG tablet TAKE 1 TABLET BY MOUTH TWICE DAILY IN THE MORNING AND AT BEDTIME 180 tablet 1 09/17/19 25 Active cyanocobalamin (Vitamin B-12) 1000 MCG tablet TAKE 1 TABLET BY MOUTH EVERY MORNING 90 tablet 1 09/17/19 25 Active metFORMIN (Glucophage) 500 MG tablet TAKE 1 TABLET BY MOUTH TWICE DAILY 180 tablet 1 03/25/20 24 2024 Discontinued cyanocobalamin (Vitamin B-12) 1000 MCG tablet TAKE 1 TABLET BY MOUTH EVERY DAY 90 tablet 1 03/25/20 24 2024 Discontinued oxyCODONE-aceta minophen (Percocet) 5-325 MG tabletIndicatio ns:Chronic pain syndrome Take 1 tablet by mouth every 8 (eight) hours if needed for severe pain for up to 28 days. Do not start before August 12, 2024. 84 tablet 08/12/19 25 2024 Discontinued(R eorder (will not trigger notification to Pharmacy)) Active Problems Problem Noted Date Diagnosed Date Atherosclerosis of superior mesenteric artery Epistaxis 08/02/2024 Assessment & Plan (08/02/2024 3:41 PM EST): Will refer stat to ENT for cauterization, possible MANAGER CREDIT RISK scope Recommend anterior nasal packing if she is bleeding heavily alf (current) use of opiate analgesic 03/20 Overview (09/10/2024): Dx: chronic pain syndrome/back pain Rx: Percocet 5/325 every 8 hours Last [facility] agreement:03/22/24 Tier II (visit every 3 months) Additional considerations: mobility issues, using scooter Assessment & Plan (09/10/2024 2:22 PM EDT): Timeline: - 09/10/24: Group visit utox/pill count wnl Chronic pain syndrome 03/05/2024 Assessment & Plan (09/10/2024 2:21 PM EDT): - Pt attended and participated in group - Utox and pill count as expected - Continue to explore and use non-pharmacological means of pain management - Follow up in 1-2 months as desired Assessment & Plan (07/17/2024 9:08 AM EST): [...] that is chronic ready for her to picker/puller today. She understands this is the chronic [...] Presence of stent in LAD coronary artery 11/03/2 017 CVA (cerebral vascular accident) 11/16/2016 Cerebellar [...] Encounters Date Type Department Care Team Description 09/20/2024 Orders Only [facility] External Provider, [facility] 09/19/2024 Telephone [facility] MEDICINE [address] [place] [phone] Eddie Marshall MD Call Back Request 09/15/2024 Refill [facility] [address] [place] [phone] Eddie Marshall MD 09/11/2024 Telephone [facility] MEDICINE [address] [place] [phone] Eddie Marshall MD Durable Medical Equipment 09/10/2024 9:45 AM EDT Office Visit [facility] [address] [place] [phone] Mckenzie Trent FNP Chronic pain syndrome (Primary Dx); alf (current) use of opiate analgesic 09/10/2024 Travel 09/09/2024 Telephone [facility] MEDICINE [address] [place] [phone] Eddie Marshall MD 09/05/2024 Refill [facility]INE [address] [place] [phone] Eddie Marshall MD Chronic pain syndrome 08/27/2024 Orders Only GENERIC EXTERNAL DATA DEPARTMENT Provider, [facility] External Data 08/26/2024 Orders Only [facility] External Provider, [facility] 08/19/2024 Refill [facility] [place] [address] Eddie Marshall MD 08/14/2024 Orders Only GENERIC EXTERNAL DATA DEPARTMENT Provider, Generic External Data 08/13/2024 Telephone [facility] [place] [address] Eddie Marshall MD Appointment Request 08/09/2024 Telephone [facility] [address] Spohie Marie MA september recalls 08/09/2024 Telephone [facility] [place] [address] Sophie Marie MA september recalls 08/09/2024 Refill [facility] [place] [place] [address] Eddie Marshall MD Chronic pain syndrome 08/02/2024 2:30 PM EST Office Visit [facility] [address] Latanya Hoover MD Epistaxis (Primary Dx); Controlled type 2 diabetes mellitus with complication, without long-term current use of insulin ([facility]); Dietary counseling; Exercise counseling; Overweight; Anemia, unspecified type 08/02/2024 Travel 07/30/2024 Telephone [facility] [place] [address] Eddie Marshall MD ER Follow-up 07/23/2024 9:00 AM EST Office Visit [facility] [place] [address] Kelly Montoya MD Chronic pain syndrome (Primary Dx) 07/23/2024 Travel 07/17/2024 Refill [facility] [place] [address] Eddie Marshall MD 07/16/2024 9:45 AM EST Office Visit [facility] [place] [address] Mckenzie Trent FNP Chronic pain syndrome (Primary Dx); alf (current) use of opiate analgesic 07/16/2024 9:15 AM EST Office Visit [facility] [address] [place] [address] Kelly Montoya MD Chronic pain syndrome (Primary Dx) 07/16/2024 Orders Only [facility] External Provider, [facility] 07/16/2024 Travel 07/12/2024 Refill [facility] MEDICINE [address] [place] [address] Name, MD Eddie 07/12/2024 Refill [facility]INE [address] [place] [address] Name, MD Eddie Chronic pain syndrome 07/02/2024 Telephone [facility]ICINE [address] [place] [address] Name, MD Eddie from Last 3 Months Immunizations Name Administration Dates Next Due Influenza injectable quadriv alent IIV4 with preservative 04/07/2016 Influenza, IIV3, injectable 03/23/2015,1 ,03/08/2013,04/06,05/01/2008,04/19/2007,05/10/2006 ,03/15/2005 Novel [id number], preservative-free 05/22/2009 Pneumococcal Polysaccharide PPSV23 07/11/2013, TD [...] 10/29/2024 2:30 PM EDT Office Visit [facility] MEDICINE [address] [place] [phone] Name, MD Eddie [address] [place] [address] 11/12/2024 9:45 AM EDT Office Visit [facility]INE [address] [place] [address] Health Maintenance Due Date Last Done Comments [...] 01/15/2025 01/16/2024, 09/14/2022 Lipid Panel 01/15/2025 01/16/2024, 0302/2023, 03/18/2020 Diabetes: Hemoglobin A1C 01/30/2025 025, 02/05/2024, [...] VIEWS Routine 09/20/2024 10:1 2 AM EDT POCT ADRIAN-14 URINE DRUG SCREEN Routine 09/10/2024 1:29 PM EDT Chronic pain syndrome alf (current) use of opiate analgesic CT CHEST WO CONTRAST Routine 08/27/2024 2:12 [...] complication, without long-term current use of insulin ([facility]) POCT GLUCOSE Routine 08/02/2024 2:14 PM EST Controlled type 2 diabetes mellitus with complication, without long-term current use of insulin (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 [place] [facility] ?[address] ?[place] [address] ?XRay Report ? Signed ? Patient: Jenniffer,Celeste ?MR#: [id number] ?? 4 ? : 1945 ?Acct:[id number] ? Age/Sex: 78 / F ?ADM Date: 09/20/24 ? Loc: HO.XRAY ? Attending Dr: Maria Esther Blum MANAGER CREDIT RISK ? Ordering Physician: Maria Esther Blum NP ?? Date of Service: 09/20/24 ?? Procedure(s): XR chest 2V ?? Accession Number(s): [id number] ? cc: Name,Eddie GILMORE; Maria Esther Blum [...] ??Bucky Downing MD ??09/20/2024 10:24 AM EDT ?? RP ? Dictated By: ?Bucky Downing MD ? Signed By: ?<Electronically signed by Bucky Downing MD in OV> ?09/20/24 1024 ? DD/ 1012 ? TD/TT: 09/20/24 1017 ? Miscellaneous Machine Operator: ? Procedure Note Sahil Tellez - 09/20/[address] [address] XRay Report Signed Patient: Ventura Abad#: [id number] 4 : 1946Acct:[id number] Age/Sex: 78 / FADM Date: 09/20/24 Loc: ZAHIDA Attending Dr: Maria Esther Blum MANAGER CREDIT RISK Ordering Physician: Maria Esther Blum NP Date of Service: 09/20/24 Procedure(s): XR chest 2V Accession Number(s): [id number] cc: Eddie Marshall MD; Maria Esther Blum [...] Bucky Downing MD 09/20/2024 10:24 AM EDT Dictated By: Bucky Downing MD Signed By: <Electronically signed by Bucky Downing MD in OV> 09/20/24 1024 DD/ 1012 TD/TT: 09/20/24 1017 Miscellaneous Machine Operator: [facility] External Provider IMG XR PROCEDURES Final Result * POCT ADRIAN-14 Urine Drug Screen (09/10/2024 1:29 PM EDT) Only the most recent of2 resultswithin the time period is included. THC Negative Cocaine Screen, Urine Negative Opiate Screen, Urine Negative Methamphetamine Screen Urine Negative Amphetamine Screen, Urine Negative Benzodiazepines Screen, Urine Negative Barbiturate Screen, Urine Negative Methadone Screen, Urine Negative Buprenophine Screen, Urine Negative TCA, Urine Negative MDMA Urine Negative ng/mL Oxycodone Screen, Urine Positive Phencyclidine (PCP), Urine Negative Propoxyphene, Urine Negative Fentanyl, Urine Negative Urine Urine specimen obtained by clean catch procedure / Unknown 09/10/2024 1:29 PM EDT Narrative Zuly Suarez MA - 09/10/2024 1:30 PM EDT Lot:[id number] Exp: 02/06/2028 us Mckenzie Trent ARCHAEOLOGY PROFESSOR POINT OF CARE TEST ENTER/EDIT ORDERABLES Final Result * CT Chest w/o Contrast (08/27/2024 2:12 PM EDT) Anatomical Region Laterality Modality Body, Chest Computed Tomogra phy 08/27/2024 2:12 PM EDT Narrative 08/27/2024 2:14 PM EDT ? [facility] ?[address] ?[place] [address] ? CT Scan Report ? Signed ? Patient: JennifferCeleste ?MR#: [id number] ?? 4 ? : 1945 ?Acct:[id number] ? Age/Sex: 78 / F ?ADM Date: 08/26/24 ? Loc: HO.CT ? Attending Dr: Maria Esther Blum MANAGER CREDIT RISK ? Ordering Physician: Maria Esther Blum NP ?? Date of Service: 08/26/24 ?? Procedure(s): CT chest wo IV con ?? Accession Number(s): [id number] ? cc: Name,Eddie GILMORE; Maria Esther Blum NP ? Report Number: ?? [id number]: Total DLP = ??208.00 mGy-cm ? CLINICAL [...] in OV> ? 08/27/24 1413 ? DD/ 11 ? TD/TT: 08/27/241411 ? Miscellaneous Machine Operator: ? Procedure Note Donotchristianneinterpreter, Image - 08/27/[address] [address] [address] Scan Report Signed Patient: Celeste AbadMR#: [id number] 4 : 7Acct:[id number] Age/Sex: 78 / FADM Date: 08/26/24 Loc: HO.CT Attending Dr: Maria Esther Blum NP Ordering Physician: Maria Esther Blum NP Date of Service: 08/26/24 Procedure(s): CT chest wo IV con Accession Number(s): [id number] cc: Name,Eddie GILMORE; Maria Esther Blum NP Report Number: [id number]: Total DLP = 208.00 mGy-cm CLINICAL HISTORY: [...] 08/27/24 1413 DD/ 1412 TD/TT: 08/27/24 1412 Miscellaneous Machine Operator: [facility] External Provider IMG CT PROCEDURES Final Result * (ABNORMAL) Iron And Total Iron Binding Capacity (08/27/2024 1:25 PM EDT) Iron 14(L) 30 - 160 mcg/dL [facility] Total Iron Binding Capacity 295 228 - 428 mcg/dL [facility] Percent Iron Saturation 5(L) 15 - 50 % [facility] Unsaturated Iron Binding 281 ug/dL [facility] 08/27/2024 1:25 PM EDT 08/27/2024 1:25 PM EDT us Generic External Data Provider LAB BLOOD ORDERAB LES Final Result [facility] [address] [place] [address] [phone] * (ABNORMAL) CBC (08/27/2024 1:25 PM EDT) White Blood Count 9.0 4.8 - 10.8 X10*3/uL [facility] Red Blood Count 4.06(L) 4.20 - 5.50 X10*6/uL [facility] Hemoglobin 10.0(L) 12.0 - 16.0 g/dl [facility] Hematocrit 33.1(L) 37.0 - 47.0 % [facility] Mean Corpuscular Volume 81.5 80.0 - 98.0 fL [facility] Mean Corpuscular Hemoglobin 24.6(L) 27.0 - 33.0 pg [facility] Mean Corpuscular HGB Conc 30.2(L) 31.0 - 35.0 g/dl [facility] Red Cell Distribution Width 16.3(H) 11.0 - 16.0 % [facility] Platelet Count 393 160 - 400 X10*3/uL [facility] Mean Platelet Volume 9.4 9.4 - 12.3 fL [facility] NRBC Pct Auto 0.0 0.0 - 0.2 /100WBC [facility] NRBC Abs Auto 0.000 0.0 - 0.012 X10*3/uL [facility] 08/27/2024 1:25 PM EDT 08/27/2024 1:25 PM EDT us Generic External Data Provider LAB BLOOD ORDERAB LES Final Result Performing Organization Address City/[facility]/ZIP Co de Phone Number [facility] [address] [place] [address] [phone] * Ferritin (08/27/2024 1:25 PM EDT) Ferritin 35 10 - 250 ng/mL [facility] 08/27/2024 1:25 PM EDT 08/27/2024 1:25 PM EDT us Generic External Data Provider LAB BLOOD ORDERAB LES Final Result [facility] [address] [place] [address] [phone] * FL Esophagus Barium Swallow w/Air (08/14/2024 9:52 AM EST) Anatomical Region Laterality Modality Head, Neck Radiographic Tanya ging 08/14/2024 9:52 AM EST Narrative 08/15/2024 4:55 PM EST ? [facility] ?[address] ?[place] [address] ? Fluoroscopy Report ? Signed ? Patient: Jenniffer,Celeste ?MR#: [id number] ?? 4 ? : 1945 ?Acct:[id number] ? Age/Sex: 78 / F ?ADM Date: 08/14/24 ? Loc: HO.XRAY ? Attending Dr: Julia Li MD ? Ordering Physician: Julia Li MD ?? Date of Service: 08/14/24 ?? Procedure(s): FL barium swallow with air ?? Accession Number(s): [id number] ? cc: Eddie Marshall MD; Julia Li [...] OV> ? 08/15/24 1652 ?<Electronically signed by Sgaar Shore MD in OV> ? 08/15/24 1654 ? DD/ 1 ? TD/TT: 08/14/24 1020 ? Miscellaneous Machine Operator: ? Procedure Note Donotuseinterpreter, Image - 08/15/[address] [address] Fluoroscopy Report Signed Patient: Celeste AbadMR#: [id number] 4 : 7Acct:[id number] Age/Sex: 78 / FADM Date: 08/14/24 Loc: HO.XRAY Attending Dr: Julia Li MD Ordering Physician: Julia Li MD Date of Service: 08/14/24 Procedure(s): FL barium swallow with air Accession Number(s): [id number] cc: Eddie Marshall MD; Julia Li MD [...] Sagar Shore MD 08/15/2024 04:52 PM EST Workstation: [employer][id number] Dictated By: Devon Delvalle Signed By: <Electronically signed by Devon Delvalle in OV> 08/15/24 1652 <Electronically signed by Sagar Shore MD in OV> 08/15/24 1654 DD/ 0952 TD/TT: 08/14/24 1020 Miscellaneous Machine Operator: [facility] External Provider IMG FLU OROSCOPY PROCEDURES Final Result * Immunofixation (ALEXANDER), Urine (08/14/2024 9:41 AM EST) ALEXANDER Interpretation SEE NOTE H [facility] Comment:Normal pattern. No m onoclonal proteins detected.The supplier of the testing reagents for this assayhas changed. Detection of small monoclonal proteins mayvary by test system.THIS TEST WAS PERFORMED AT:[employer] [place] [phone] PAYNE MD 08/14/2024 9:41 AM EST 08/14/2024 10:39 AM EST Generic External Data Provider LAB URINE ORDERAB LES Final Result [facility] [address] [place] [address] [phone] * (ABNORMAL) Protein, Total and Protein??Electrophoresis (08/14/2024 9:37 AM EST) Prot Elec - Total Protein 6.7 6.1 - 8.1 g/dL [facility] Prot Elec - Albumin 3.2(A) 3.8 - 4.8 g/dL [facility] Prot Elec - Alpha1 0.4(A) 0.2 - 0.3 g/dL [facility] Prot Elec - Alpha2 1.1(A) 0.5 - 0.9 g/dL [facility] Prot Elec - Beta 1 0.5 0.4 - 0.6 g/dL [facility] Prot Elec - Beta 2 0.5 0.2 - 0.5 g/dL [facility] Prot Elec - Gamma 1.0 0.8 - 1.7 g/dL [facility] PES - Abn Protein Band 1 TNP [facility] PES-Abn Protein Band 2 TNP [facility] PES-Abn Protein Band 3 [facility] Prot Elec - Interpretation SEE NOTE [facility] Comment:Evaluation is consis tent with an acute inflammatorypattern.THIS TEST WAS PERFORMED AT:[employer] [place] [phone] PAYNE MD 08/14/2024 9:37 AM EST 08/14/2024 9:41 AM EST us Generic External Data Provider LAB BLOOD ORDERAB LES Final Result [facility] [address] [place] [phone] * (ABNORMAL) Phosphate (As Phosphorus) (08/14/2024 9:37 AM EST) Pathologist [facility] Phosphorus 2.6(L) 2.7 - 4.5 mg/dL [facility] 08/14/2024 9:37 AM EST 08/14/2024 9:41 AM EST Generic External Data Provider LAB BLOOD ORDERAB LES Final Result [facility] [address] [place] [address] [phone] * (ABNORMAL) POCT HGB A1C (08/02/2024 2:14 PM EST) Hemoglobin A1C 6.2(A) 4.0 - 6.0 % [employer] Lot # [id number] Lot# Expiration Date , Blood 08/02/2024 2:14 PM EST Latanya Hoover [...] EST Narrative 07/16/2024 7:07 PM EST ? [facility] ?[address] ?[place] [address] ?XRay Report ? Signed ? Patient: Jenniffer,Celeste ?MR#: [id number] ?? 4 ? : 1945 ?Acct:[id number] ? Age/Sex: 78 / F ?ADM Date: 01/28/25 ? Loc: HO.ED ? Attending Dr: ? Ordering Physician: Rhea Ken ?? Date of Service: 07/16/24 ?? Procedure(s): XR KUB ?? Accession Number(s): [id number] ? cc: Rhea Ken; Name,Eddie GILMORE ? [...] ? DD/ 06 ? TD/TT: 07/16/241906 ? Miscellaneous Machine Operator: ? Procedure Note Donotchristianneinterpreter, Image - 07/16/2024 [place] [address] XRay Report Signed Patient: Celeste AbadMR#: [id number] 4 : 1945cct:[id number] Age/Sex: 78 / FADM Date: 07/16/24 Loc: HO.ED Attending Dr: Ordering Physician: Rhea Ken Date of Service: 07/16/24 Procedure(s): XR KUB Accession Number(s): [id number] cc: Rhea Ken; Name,Eddie GILMORE CLINICAL HISTORY: [...] in OV> 07/16/241906 DD/ 06 TD/TT: 07/16/241906 Miscellaneous Machine Operator: [facility] External Provider IMG XR PROCEDURES Final Result * SARS-CoV-2 RNA, Influenza A/B, and RSV RNA, Ql NAAT (07/16/2024 7:06 PM EST) Pathologist [facility] Influenza A PCR NEGATIVE Negative [facility] Influenza B PCR NEGATIVE Negative [facility] Resp Syncy Virus RNA Qual PCR NEGATIVE Negative [facility] SARS COV2 PCR NEGATIVE Negative [facility] Comment:All test results mus t be [...] use by authorized laboratories.Testing performed on the [employer] GeneXpert utilizingreal-time RT-PCR.All SARS CoV2 and positive influenza A/B results arereported to [facility]. 07/16/2024 7:06 PM EST 07/16/2024 7:11 PM EST us Generic External Data Provider LAB MICROBIOLOGY - GENERAL ORDERABLES Final Result [facility] [address] [place] [phone] * (ABNORMAL) CBC auto differential (07/16/2024 7:06 PM EST) Pathologist [facility] White Blood Count 10.1 4.8 - 10.8 X10*3/uL [facility] Red Blood Count 4.68 4.20 - 5.50 X10*6/uL [facility] Hemoglobin 13.3 12.0 - 16.0 g/dl [facility] Hematocrit 40.7 37.0 - 47.0 % [facility] Mean Corpuscular Volume 87.0 80.0 - 98.0 fL [facility] Mean Corpuscular Hemoglobin 28.4 27.0 - 33.0 pg [facility] Mean Corpuscular HGB Conc 32.7 31.0 - 35.0 g/dl [facility] Red Cell Distribution Width 15.0 11.0 - 16.0 % [facility] Platelet Count 272 160 - 400 X10*3/uL [facility] Mean Platelet Volume 9.9 9.4 - 12.3 fL [facility] Neutrophils Percent Auto 74.5(H) 45 - 73 % [facility] Imm Gran Pct Auto 0.3 0.0 - 0.4 % [facility] Lymphocytes Percent Auto 16.3(L) 20 - 40 % [facility] Monocytes Percent Auto 8.0 2 - 11 % [facility] Eosinophils Percent Auto 0.7 0 - 4 % [facility] Basophils Percent Auto 0.2 0 - 2 % [facility] NRBC Pct Auto 0.0 0.0 - 0.2 /100WBC [facility] Neutrophils Absolute Auto 7.6 2.0 - 8.3 x10*3/uL [facility] Imm Gran Abs Auto 0.03 0.00 - 0.03 X10*3/uL [facility] Lymphocytes Absolute Auto 1.7 1.2 - 4.9 X10*3/uL [facility] Monocytes Absolute Auto 0.8 0.1 - 1.2 X10*3/uL [facility] Eosinophils Absolute Auto 0.1 0.0 - 0.4 X10*3/uL [facility] Basophils Absolute Auto 0.0 0.0 - 0.2 X10*3/uL [facility] NRBC Abs Auto 0.000 0.0 - 0.012 X10*3/uL [facility] 07/16/2024 7:06 PM EST 07/16/2024 7:11 PM EST us Generic External Data Provider LAB BLOOD ORDERAB LES Final Result [facility] [address] [place] [address] [phone] * Magnesium (07/16/2024 7:06 PM EST) Magnesium 2.2 1.6 - 2.6 mg/dL [facility] 07/16/2024 7:06 PM EST 07/16/2024 7:11 PM EST us Generic External Data Provider LAB BLOOD ORDERAB LES Final Result Performing Organization Address [facility]/ZIP Co de Phone Number [facility] [address] [place] [phone] * Lipase (07/16/2024 7:06 PM EST) [facility] Lipase 8 8 - 78 U/L [facility] 07/16/2024 7:06 PM EST 07/16/2024 7:11 PM EST us Generic External Data Provider LAB BLOOD ORDERAB LES Final Result Performing Organization Address [facility] de Phone Number [facility] [address] [place] [phone] * (ABNORMAL) Hepatic Function Panel (07/16/2024 7:06 PM EST) [facility] Bilirubin, Total 0.4 0.0 - 1.0 mg/dL [facility] Bilirubin, Direct 0.2 0.0 - 0.5 mg/dL [facility] Aspartate Amino Transferase 37(H) 5 - 31 U/L [facility] Alanine Aminotransferase 27 0 - 31 U/L [facility] Total Protein 7.5 6.5 - 8.0 g/dL [facility] Albumin Level 3.9 3.5 - 5.0 g/dL [facility] Alkaline Phosphatase 136(H) 39 - 117 U/L [facility] 07/16/2024 7:06 PM EST 07/16/2024 7:11 PM EST us Generic External Data Provider LAB BLOOD ORDERAB LES Final Result Performing Organization Address [facility]/ZIP Co de Phone Number [facility] [address] [place] [phone] [phone] * (ABNORMAL) Basic Metabolic Panel (07/16/2024 7:06 PM EST) Sodium 139 135 - 145 mmol/L [facility] Potassium 4.3 3.3 - 5.1 mmol/L [facility] Chloride 102 96 - 108 mmol/L [facility] Carbon Dioxide 25 22 - 29 mmol/L [facility] Anion Gap 16 12 - 20 [facility] Urea Nitrogen (BUN) 18(H) 9 - 16 mg/dL [facility] Creatinine, Serum 0.73 0.5 - 1.4 mg/dL [facility] Creatinine Clr Calc Pharmacy 58.3 [facility] Comment:Provided height and weight: 157.48 cm,68.039 kg.eGFR (calculated from the MDRD study equation) and eCrCl(calculated from the Cockcroft-Gault equation) are based ondifferent parameters and may not yield comparable results.If eCrCl result is absurd, please check patient'sheight/weight. Estimated Glomerular Filt Rate >60 [facility] Comment:Chronic Kidney Disea se: Estimated GFR < 60 mL/min/1.39t6Kmffic Kidney Disease: Estimated GFR < 15 mL/min/1.73m2 Glucose 124(H) 60 - 115 mg/dL [facility] Calcium 9.1 8.4 - 10.2 mg/dL [facility] 07/16/2024 7:06 PM EST 07/16/2024 7:11 PM EST us Generic External Data Provider LAB BLOOD ORDERAB LES Final Result [facility] [address] [place] [phone] * (ABNORMAL) Lipid Panel, Standard (01/16/2024 9:40 AM EDT) Triglycerides 199(H) <150 mg/dL [facility] Comment:Desirable Triglyceri de: less than 150 mg/dLBorderline High Triglyceride 150-199 mg/dLHigh Triglyceride: 200-499 mg/dLVery High Triglyceride: greater than or equal to 5OO mg/dL Cholesterol 150 <200 mg/dL [facility] Comment:Desirable Cholestero l: less than 200 mg/dLBorderline High Cholesterol: 200-239 mg/dLHigh Cholesterol: greater than 239 mg/dL LDL Cholesterol Calculated 63 <100 mg/dL [facility] Comment:Desirable LDL: less than 100 mg/dLNear Optimal/Above Optimal LDL: 110- 129 mg/dLBorderline High LDL: 130-159 mg/dLHigh LDL: 160-189 mg/dLVery High LDL: greater than or equal to 190 mg/dL HDL Cholesterol 48 >40 mg/dL [facility] Comment:Desirable HDL: great er than 40 mg/dL Note: This HDL assay may give artificially low results in patients with liver disease. Blood Venous blood specimen / Unknown 01/16/2024 9:40 AM EDT 01/16/2024 11:20 AM EDT us Eddie Marshall MD LAB BLOOD ORDERABLES Final Resul t Performing Organization Address City/[facility]/ZIP Co de Phone Number [facility] [address] [place] [phone] * Albumin, Random Urine W/Creatinine (01/16/2024 9:35 AM EDT) Creatinine, Urine 27.62 mg/dL [facility] Microalbumin Urine <5.0 mg/L [facility] Microalbum Creatinine Ratio Ur TNP <30 ug/mg cr [facility] Comment:Unable to calculate albumin/creatinine ratio due to lowmicroalbumin or creatinine result. Urine (Urine, Random) 01/16/2024 9:35 AM EDT 01/16/2024 11:12 AM EDT us Eddie Marshall MD LAB URINE ORDERABLES Final Resul t [facility] [address] [place] [phone] * Hm Diabetes Eye Exam (05/16/2023) Eye Exam Normal Normal Eddie Marshall MD HEALTH MAINTENANCE Final Result * (ABNORMAL) Hepatitis Panel, General (11/18/2022 2:07 PM EDT) Hepatitis A Antibody Total REACTIVE( A) NON-REACT NAHID [facility] [employer] Comment: For additional information, please refer to http://[employer]bra[employer]/faq/CSX324 (This link is being provided for informational/ educational purposes only.) Hepatitis B Surface Antibody QL NON-REACT NAHID NON-REACT NAHID [facility] [employer] Hepatitis B Surface Ag NON-REACT NAHID NON-REACT NAHID [facility] [place] [employer] Hepatitis B Core Antibody Total NON-REACT NAHID NON-REACT NAHID [facility] [place] [employer] Hepatitis C Antibody NON-REACT NAHID NON-REACT NAHID [facility] [place] [employer] Index 0.07 <1.00 [facility] Comment: HCV antibody was non-reactive. There is no laboratory evidence of HCV infection. In most cases, no further action is required. However, if recent HCV exposure is suspected, a test for HCV RNA (test code 60757) is suggested. For additional information please refer to http://Webra[employer]/faq/RFY50z6 (This link is being provided for informational/ educational purposes only.) 11/18/2022 2:07 PM EDT 11/18/2022 2:09 PM EDT Narrative [facility] - 11/19/2022 6:51 AM EDT COLLECTION KIT GIVEN TO PATIENT. PATIENT ADVISED TO RETURN. Mckenzie RODRIGUEZ LAB BLOOD ORDERABLES Final Res ult [facility] [address] [place] [address], [place] [address] [facility] [address] [place] [address] from Last 3 Months or Most Recently Relevant to Health Maintenance Insurance [employer] Care Teams Creative Services Designer Relationship Specialty Start Date End Date Name, MD Eddie [address] [place] [address] PCP - General Family Medicine [facility]16[facility]
--- OUTSIDE RECORDS SUMMARY | 2024-09-20 11:23 | XMS_ITS | Encounter Summary ---
Author Organization [employer] Address [address] [place] [address] 7 [place] [address] Care Team Providers Care Orchard Sprayer Name Role Phone Name, Eddie GILMORE Primary Care Provider [phone] Reason for Visit * Reason Comments Med Refill Encounter Details Date Type Department Care Team (Late Contact Info) Description 12/01/2022 Refill [facility] [address] [place], [place] [phone] Name, MD Eddie [address] [place] [address] Controlled type 2 diabetes mellitus with complication, without long-term current use of insulin ([facility]) Social History Tobacco Use Types Packs/Day [...] Description 10/29/2024 2:30 PM EDT Office Visit [facility] [place] [address] Name, MD Eddie [facility] [place] [address] 11/12/2024 9:45 AM EDT Office Visit [facility] [place] [address] documented as of this encounter Visit Diagnoses Diagnosis Controlled type 2 diabetes mellitus with complication, without long-term current use of insulin ([facility]) documented in this encounter Additional Health Concerns Assessment Noted Time PHQ-9 Depression Total Score: 10 023 1:16 PM EDT documented as of this encounter Care Teams Orchard Sprayer Relationship Specialty Start Date End Date Name, [place] [address] PCP - General Family Medicine 09/16/15 Jerica BURGOSA 07/01/24 documented as of this encounter
--- OUTSIDE RECORDS SUMMARY | 2024-09-20 11:23 | XMS_ITS | Encounter Summary ---
Author Organization [employer] Address [address] [place] [address] 7 [place] [address] Care Team Providers Care Transcripter Name Role Phone Name, Eddie GILMORE Primary Care Provider [phone] Reason for Visit * Reason Comments Med Refill Encounter Details Date Type Department Care Team (Late st Contact Info) Description 06/18/2023 Refill [facility] [address] [place], [place] [phone] Name, MD Eddie [address] [place], [place] [phone] Chronic pain syndrome Social History Tobacco Use [...] Description 10/29/2024 2:30 PM EDT Office Visit [address] [address] NameEddie MD [address] [place] [address] 11/12/2024 9:45 AM EDT Office Visit [address] [address] documented as of this encounter Visit Diagnoses Diagnosis Chronic pain syndrome documented in this encounter Additional Health Concerns Assessment Noted Time PHQ-9 Depression Total Score: 10 023 1:16 PM EDT documented as of this encounter Care Teams Transcripter Relationship Specialty Start Date End Date NameEddie MD [address] [place] [address] PCP - General Family Medicine 09/16/15 Jerica [facility] 07/01/24 documented as of this encounter
--- OUTSIDE RECORDS SUMMARY | 2024-09-20 11:23 | XMS_ITS | Encounter Summary ---
Author Organization [employer] Address [address] [place] [address] 7t [place] [address] Care Team Providers Care Soap Mixer Name Role Phone Name, Eddie GILMORE Primary Care Provider [phone] Encounter Details Date Type Department Care Team ([facility] st Contact Info) Description 12/07/2022 Telephone [facility] [address] [place], [place] [phone] Name, MD Eddie [address] [place] [address] Social History Tobacco Use Types Packs/Day Years [...] update PCP now. Ordering provider Pierce Pillai RESEARCH ASSOCIATE Follow with fredyn as indicated. Results faxed at time of call to [phone]. Ref.# [id number] C documented in this encounter Plan of Treatment Upcoming Encounters Date Type Department Care Team (Late st Contact Info) Description 10/29/2024 2:30 PM EDT Office Visit [facility] [address] [place] [address] Name, MD Eddie [address] [place] [address] 11/12/2024 9:45 AM EDT Office Visit [address] [address] documented as of this encounter Visit Diagnoses Not on filedocumented in this encounter Additional Health Concerns Assessment Noted Time PHQ-9 Depression Total Score: 10 023 1:16 PM EDT documented as of this encounter Care Teams Soap Mixer Relationship Specialty Start Date End Date Name, MD Eddie [address] [place] [address] PCP - General Family Medicine 09/16/15 [facility] 07/01/24 documented as of this encounter
--- OUTSIDE RECORDS SUMMARY | 2024-09-20 11:23 | XMS_ITS | Encounter Summary ---
Author Organization [employer] Address [address] [place] [address] 7 [place] [address] Care Team Providers Care Tank Operator Name Role Phone Name, Eddie GILMORE Primary Care Provider [phone] Reason for Visit * Reason Onset Date Comments Referral 02/02/2023 Back dated refer ral Encounter Details Date Type Department Care Team ([facility] st Contact Info) Description 02/02/2023 Telephone [facility] [address] [place], [place] [phone] Name, MD Eddie [address] [place] [address] Referral (Back dated referral ) Social History [...] from DOS * Telephone Encounter - Louann oRmo - 03/07/2023 1:40 PM EDT Tc from Kasie at [facility] requesting status on message below regarding referral. Fax number [phone]. Any questions please call [phone] * Telephone Encounter - Amber Roger RN - 02/03/2023 10:34 AM EDT Please review message below regarding backdated referral for these dates * Telephone Encounter - Laure Mcgill - 02/02/2023 2:07 PM EDT Tc from Kasie at [facility] calling in regards to referral needing to be back dated. Patient was seen at the office on 01/03/23 and 01/11/23. Fax number [phone]. Any questions please call [phone]. documented in this encounter Plan of Treatment Upcoming Encounters Date Type Department Care Team (Late st Contact Info) Description 10/29/2024 2:30 PM EDT Office Visit [address] [address] Name, MD Eddie [address] [place] [address] 11/12/2024 9:45 AM EDT Office Visit [address] [address] documented as of this encounter Visit Diagnoses Not on filedocumented in this encounter Additional Health Concerns Assessment Noted Time PHQ-9 Depression Total Score: 10 023 1:16 PM EDT documented as of this encounter Care Teams Tank Operator Relationship Specialty Start Date End Date Name, MD Eddie [address] [place] [address] PCP - General Family Medicine 09/16/15 Jerica [facility] 07/01/24 documented as of this encounter
--- OUTSIDE RECORDS SUMMARY | 2024-09-20 11:23 | XMS_ITS | Encounter Summary ---
Author Organization [employer] Address [address] [place] [address] 7 [place] [address] Care Team Providers Care Jewelry Department Supervisor Name Role Phone Name, Eddie GILMORE Primary Care Provider [phone] Reason for Visit * Reason Onset Date Comments Active Med List 06/28/2023 Encounter Details Date Type Department Care Team ([facility] st Contact Info) Description 06/28/2023 Telephone [facility] [address] [place], [place] [phone] Name, MD Eddie 230 [place] [address] Active Med List Social History Tobacco Use [...] Be requesting a updated active medication list program writer did attempt to transfer to Medical records so that she can obtain this information but they kept transferring back to the call center. [facility] [address], [place], [place] [phone] documented in this encounter Plan of Treatment Upcoming Encounters Date Type Department Care Team (Late st Contact Info) Description 10/29/2024 2:30 PM EDT Office Visit [facility] [address] [place] [address] Name, MD Eddie [address] [place] [address] 11/12/2024 9:45 AM EDT Office Visit [facility] [address] [place] [address] documented as of this encounter Visit Diagnoses Not on filedocumented in this encounter Additional Health Concerns Assessment Noted Time PHQ-9 Depression Total Score: 10 023 1:16 PM EDT documented as of this encounter Care Teams Jewelry Department Supervisor Relationship Specialty Start Date End Date Name, MD Eddie [address] [place] [address] PCP - General Family Medicine 09/16/15 Jerica SEN 07/01/24 documented as of this encounter
== END 2024-09-20 10:03 | disposition home or self-care (01) ==
LOC: HO.XRAY 10:02
PROVIDERS: PCP Internal Medicine Geriatric Medicine; Visit Provider Nurse Practitioner Family
DX: J44.9 Chronic obstructive pulmonary disease, unspecified (principal)
CPT/HCPCS: 71046

== ENCOUNTER → 2024-09-20 10:07 | Outpatient (BNV) | payer MEDICARE, SELFPAY | PROVIDERS: PCP Internal Medicine Geriatric Medicine; Visit Provider Radiology Diagnostic Radiology | DX: K44.9 Diaphragmatic hernia without obstruction or gangrene (principal) | CPT/HCPCS: 71046 ==

== ENCOUNTER 2024-09-24 13:02 | Outpatient (AMB) | payer MEDICARE, SELFPAY ==
--- NOTE | 2024-09-24 12:56 | MHC.OFFVIS ---
Vital Signs 09/24/24 13:04 Height 5 ft 2 in BP 110/60 Pulse 91 Pulse Oximetry (%) 93 Oxygen Delivery Method Room Air Intake Visit Reasons: Hiatal Hernia Surgery (Dr. Rincon) Benefit Authorizer Required: No Foster Winder: Foster Winder offered & declined Allergies scallops Allergy (Unknown, Verified 09/24/24 13:10) Unknown Medication List - Last Reconciled 09/24/24 by Zeny Osei LPN albuterol sulfate 90 mcg/actuation 2 puffs inhalation Q4H PRN amlodipine 2.5 mg PO DAILY 90 days atorvastatin 40 mg PO DAILY betamethasone valerate 0.1% 1 appl topical DAILY biotin 5 mg PO DAILY clopidogrel 75 mg PO DAILY docusate sodium (Colace) 100 mg PO DAILY ferrous sulfate (Iron (ferrous sulfate)) 325 mg PO DAILY fluticasone furoate-vilanterol 200-25 mcg/dose (Breo Ellipta) 1 inh inhalation DAILY fluticasone propion-salmeterol 115-21 mcg/actuation (Advair HFA) 2 puffs inhalation Q12H latanoprost 0.005% 1 drp ophthalmic (eye) BEDTIME levetiracetam (Keppra) 750 mg PO BID levothyroxine 112 mcg PO DAILY lidocaine HCl 2% 1 appl topical .at bedtime 4 weeks magnesium 500 mg PO DAILY melatonin 10 mg PO .hs metformin 500 mg PO BID milk thistle 500 mg PO BID mirabegron ER (Myrbetriq) 50 mg PO DAILY oxycodone-acetaminophen 5-325 mg 1 tab PO BID PRN pantoprazole 40 mg PO BID peg 400-propylene glycol (PF) 0.4-0.3 % (Systane (PF)) 1 drp ophthalmic (eye) BID simethicone 125 mg PO TID PRN sucralfate 10 mL PO BID trospium ER 60 mg PO DAILY wheat dextrin (Benefiber Sugar Free (dextrin)) 1.5 grams PO BID HPI HPI Hiatal Hernia Surgery (Dr. Rincon): Details: Celeste is a pleasant 78 year old female, former smoker, quit 20 years ago with 40+ pyh with underlying HTN, stable angina, CAD, seizures, h/o CVA x 3 and h/o NM x 3 s/p 3 stents. She is able to ambulate however uses a wheelchair for long distances and is accompanied by her son today. She was switched to Advair as she reported Breo worsened reflux. She continues with dyspnea on exertion, occasional dry cough and intermittent wheezing/chest tightness. She does note that her exercise tolerance is significantly decreased having to rest frequently. She reports checking her oxygen saturation, lowest 90%. She denies prior need for supplemental oxygen. She denies any visits to urgent care or hospitalizations related to respiratory distress since the last visit. [facility] Medical History (Updated 09/24/24 @ 13:37 by Maria Esther Blum NP) Paraesophageal hernia Osteoporosis Lower GI bleed Rectal bleed Anemia Stable angina Essential hypertension CVA (cerebral vascular accident) CAD (coronary artery disease) Surgical History Status post cardiac catheterization History of cardiac cath History of adenoidectomy Hx of tonsillectomy Hx of hernia repair History of section History of cholecystectomy History of appendectomy Family History Mother Cancer Father Heart attack Social History Household Members: Children Housing: House Do you presently have visiting nurse or other home services: Yes Alcohol intake: never Patient Tobacco Use Status: Former Tobacco user Years Smoked: 30 +/- e-Cigarette/Vaping Use: Never Used Second Hand Smoke Exposure: No Substance Use Type: IV Drugs service: No Current occupational status: retired Current occupation: right hand dominant Review of Systems Const Denies chills, Denies excessive sweating, Denies fever(s), Denies headache(s) and Denies night sweats Eyes Denies dry eyes, Denies irritation and Denies itchy eyes ENT Reports Normal hearing present, Denies headache(s), Denies nasal discharge, Denies post nasal drip and Denies sore throat Card Denies chest pain, Denies chest pain at rest, Denies chest pain with activity, Denies claudication, Denies leg edema, Reports dyspnea on exertion, Denies orthopnea and Denies paroxysmal nocturnal dyspnea Resp Denies chest congestion, Denies excessive phlegm production, Denies pain on inspiration, Denies pain with cough, Reports dyspnea on exertion, Denies stridor and Reports wheezing Musc Denies myalgias Neuro Reports Normal hearing present and Denies headache(s) Endo Denies excessive sweating Miguel/Lymph Denies lymphadenopathy Aller/Immun Denies itchy eyes, Denies seasonal rhinorrhea and Reports wheezing Physical Exam Vital Signs: Last Vital Signs Pulse 91 09/24/24 13:04 BP 110/60 09/24/24 13:04 Pulse Ox 93 09/24/24 13:04 Oxygen Delivery Method Room Air 09/24/24 13:04 Const General: cooperative, healthy appearing, comfortable, no acute distress, well developed and alert Orientation/consciousness: patient oriented x3 Limitations: no limitations HEENT Head: Yes normal to inspection, Yes normocephalic and Yes atraumatic Ears: hearing grossly normal bilaterally and external ears normal Eyes General: appearance normal, both eyes and all related structures Eyelids: Yes eyelids normal Sclerae: sclerae normal EOM: EOMs intact bilaterally Neck Neck: Yes normal visual inspection and Yes no lymphadenopathy Lymphatic: no lymphadenopathy noted Chest Chest palpation & inspection: normal inspection of the chest Resp Effort & Inspection: normal respiratory effort, able to speak in complete sentences, no audible wheezes, no cough, no stridor, not tachypneic, no tripod positioning and no use of accessory muscles Auscultation: diminished lung sounds Cardio Jugular venous distension: no JVD Rate: regular rate Rhythm: regular rhythm Skin Other: warm, dry General skin exam: no rashes or lesions noted Neuro General: patient oriented x3 Cranial nerves: Yes Normal hearing present Cognition (Neuro): normal cognition Gait exam (Neuro): Normal gait present Extrem General: Yes normal to inspection, Yes capillary refill normal, Yes no clubbing, cyanosis or edema and Yes no pedal edema Psych Appearance: grossly normal and well kempt Speech and movement: Normal speech and movement present and Clear speech present Affect: normal affect Attitude: cooperative Thought process: Normal thought process present Thought content: Normal thought content present Insight: Good insight present (Psych) Judgement: Good judgement present (Psych) Office Procedures 6 Minute Walk Time:: 13:22 SPO2 % at rest: 95 Pulse at rest: 90 SPO2 % during excercise: 93 Pulse during excercise: 112 SPO2 % after excercise: 95 Pulse after excercise: 99 Distance in yards walked: 100 Shefali Score: 6 Performance Observations:: Patient walked on level ground using a walker slowly. Patient was able to complete the 6 minute walk test maintaining O2 saturation 93% or greater and pulse rate of 112 or lower for the entirety of the walk. Supplemental oxygen was required. [address] - 6 Minute Walk Results Reviewed Results Reviewed: [address] [address] XRay Report Signed Patient: Celeste Abad MR#: [id number] : 1945 Acct:[id number] Age/Sex: 78 / F ADM Date: 09/20/24 Loc: [facility] Attending Dr: Maria Esther Blum NP Ordering Physician: Maria Esther Blum NP Date of Service: 09/20/24 Procedure(s): XR chest 2V Accession Number(s): [id number] cc: Joanna,Eddie GILMORE; Maria Esther Blum NP~ EXAMINATION: XR CHEST 2 VIEWS HISTORY: J44.9 - Chronic obstructive pulmonary disease, unspecified COMPARISON: Comparison is made with the prior examination dated 02/24/2022. FINDINGS: PA and lateral views of the chest are submitted. There is chronic scarring in both lower lobes. There is no pleural effusion, pneumothorax, or pulmonary vascular congestion. The heart is normal in size. There is coronary arterial calcification and calcification of the aortic arch. There is a moderate hiatal hernia. There are surgical clips in the right upper quadrant. There is mild degenerative disc disease of the spine. XR/XR chest 2V IMPRESSION: Moderate hiatal hernia. No acute cardiopulmonary abnormality. Electronically signed by: Bucky Downing MD 09/20/2024 10:24 AM EDT Dictated By: Bucky Downing MD Signed By: <Electronically signed by Bucky Downing MD in OV> 09/20/24 1024 DD/ 1012 TD/TT: 09/20/24 1017 Transcriptionis Assessment & Plan Assessment & Plan (1) Encounter for preoperative pulmonary examination: Code(s): Z01.811 - Encounter for preprocedural respiratory examination Category: Medical (2) COPD (chronic obstructive pulmonary disease): Code(s): J44.9 - Chronic obstructive pulmonary disease, unspecified Category: Medical (3) Emphysema of lung: Code(s): J43.9 - Emphysema, unspecified Category: Medical (4) Personal history of tobacco use: Code(s): Z87.891 - Personal history of nicotine dependence Category: Social Hx (5) Multiple pulmonary nodules: Code(s): R91.8 - Other nonspecific abnormal finding of lung field Category: Medical Plan Patient presents today for preoperative pulmonary evaluation for proposed hernia repair with Dr. Rincon. Reviewed PFT which revealed borderline obstructive ventilatory defect with no bronchodilator response. Patient unable to perform lung volumes maneuvers. Decreased diffusion capacity suggests emphysema, which is reflected in Chest CT. There was also note of 7.7 mm nodular density of the right upper lobe and 5 mm nodular density of the right upper lobe, and will have repeat CT in November 2024 to assess stability. Recent CXR unremarkable. She denies any recent respiratory infections or need for supplemental oxygen. She currently reports suboptimal effect with Advair 115mcg, will increase to 230mcg. VSS and respiratory exam unremarkable today. 6MWT performed and patient maintained 93-95%, not requiring supplemental oxygen. At this time, she would be considered a low risk for pulmonary complications for proposed surgery. Consider bronchodilators in the perioperative period. All questions were answered and patient is in agreement of plan. Will follow up to review CT results and response to increased dose of Advair or sooner if needed. Orders: Orders AMB 6 minute walk Today J43.9 - Emphysema, unspecified, J44.9 - Chronic obstructive pulmonary disease, unspecified Medications: New fluticasone propion-salmeterol 230-21 mcg/actuation (Advair HFA) 2 puffs inhalation Q12H 12 grams 3RF Discontinued fluticasone furoate-vilanterol 200-25 mcg/dose (Breo Ellipta) Discontinued Reason: Patient Completed Course 1 inh inhalation DAILY 60 ea 6RF fluticasone propion-salmeterol 115-21 mcg/actuation (Advair HFA) Discontinued Reason: Patient Completed Course 2 puffs inhalation Q12H 12 grams 3RF Coding Level of Care Code Est Pt Level 4 (60530) Diagnoses Encounter for preoperative pulmonary examination Z01.811 COPD (chronic obstructive pulmonary disease) J44.9 Emphysema of lung J43.9 Personal history of tobacco use Z87.891 Multiple pulmonary nodules R91.8 CPT Codes Coding ([id number])
[2024-09-24 13:04] VITALS: BP 110/60; PULSE 91; O2SAT 93
[2024-09-24 13:35] VITALS: PULSE 90; O2SAT 95
--- OUTSIDE RECORDS SUMMARY | 2024-09-24 15:49 | XMS_ITS | Encounter Summary ---
Author Organization [employer] Address [address] [place] [address] 7 [place] [address] Care Team Providers Care Information Systems Specialist Name Role Phone Name, Eddie GILMORE Primary Care Provider Reason for Visit * Reason Onset Date Comments Medication Question 09/01/2023 Encounter Details Date Type Department Care Team ([facility] st Contact Info) Description 09/01/2023 Telephone [facility] MEDICINE [address] [place], [place] [phone] Name, MD Eddie [address] [place] [address] Medication Question Social History Tobacco Use Types [...] an add on. Please contact pharmacy at [phone]. documented in this encounter Plan of Treatment Upcoming Encounters Date Type Department Care Team (Late st Contact Info) Description 10/29/2024 2:30 PM EDT Office [facility] [place] [address] Name, [place] [address] 11/12/2024 9:45 AM EDT Office Visit [facility] [place] [address] documented as of this encounter Visit Diagnoses Not on filedocumented in this encounter Additional Health Concerns Assessment Noted Time PHQ-9 Depression Total Score: 10 023 1:16 PM EDT documented as of this encounter Care Teams Information Systems Specialist Relationship Specialty Start Date End Date Name, [place] [address] PCP - General Family Medicine 09/16/15 Jerica A 07/01/24 documented as of this encounter
--- OUTSIDE RECORDS SUMMARY | 2024-09-24 15:49 | XMS_ITS | Encounter Summary ---
Author Organization [employer] Address [address] [place] [address] 7t [place] [address] Care Team Providers Care Behavioral Assistant Name Role Phone Name, Eddie GILMORE Primary Care Provider [phone] Encounter Details Date Type Department Care Team ([facility] st Contact Info) Description 12/07/2022 Telephone [facility] MEDICINE [address] [place], [place] [phone] Name, MD Eddie [address] [place] [address] Social History Tobacco Use Types Packs/Day Years [...] update PCP now. Ordering provider Pierce Pillai FELLER MACHINE OPERATOR Follow with fredyn as indicated. Results faxed at time of call to [phone]. Ref.# [id number] C documented in this encounter Plan of Treatment Upcoming Encounters Date Type Department Care Team (Late st Contact Info) Description 10/29/2024 2:30 PM EDT Office Visit [facility] MEDICINE [address] [place] [address] Name, MD Eddie [address] [place] [address] 11/12/2024 9:45 AM EDT Office Visit [address] [address] documented as of this encounter Visit Diagnoses Not on filedocumented in this encounter Additional Health Concerns Assessment Noted Time PHQ-9 Depression Total Score: 10 023 1:16 PM EDT documented as of this encounter Care Teams Behavioral Assistant Relationship Specialty Start Date End Date Name, MD Eddie [address] [place] [address] PCP - General Family Medicine 09/16/15 [facility] 07/01/24 documented as of this encounter
--- OUTSIDE RECORDS SUMMARY | 2024-09-24 15:49 | XMS_ITS | Encounter Summary ---
Author Organization [facility] [employer] Address [address] [place] [address] 7 [place] [address] Care Team Providers Care Count Team Member Name Role Phone Name, Eddie GILMORE Primary Care Provider [phone] Encounter Details Date Type Department Care Team ([facility] Contact Info) Description 11/18/2022 Abstract [facility] MEDICINE [address] [place] [address] [phone] Name, MD Eddie [address] [place] [address] [phone] Social History Tobacco Use Types Packs/Day Years [...] Upcoming Encounters Date Type Department Care Team ([facility] Contact Info) Description 10/29/2024 2:30 PM EDT Office Visit [facility] MEDICINE [address] [place] [address] Name, MD Eddie [address] [place] [phone] 11/12/2024 9:45 AM EDT Office Visit [facility] MEDICINE [address] [place] [address] documented as of this encounter Visit Diagnoses Not on filedocumented in this encounter Care Teams Count Team Member Relationship Specialty Start Date End Date Name, MD Eddie [address] [place] [address] PCP - General Family Medicine 09/16/15 Jerica A 07/01/24 documented as of this encounter
--- OUTSIDE RECORDS SUMMARY | 2024-09-24 15:49 | XMS_ITS | Encounter Summary ---
Author Organization [email or web address] Address [address] [place] [address] 7 [place] [address] Care Team Providers Care Spline Rolling Machine Job Setter Name Role Phone Name, Eddie GILMORE Primary Care Provider [phone] Reason for Visit * Reason Onset Date Comments Active Med List 06/28/2023 Encounter Details Date Type Department Care Team ([facility] st Contact Info) Description 06/28/2023 Telephone [facility] MEDICINE [address] [place], [place] [phone] Name, MD Eddie [address] [place] [address] Active Med List Social History Tobacco Use [...] Be requesting a updated active medication list engineering technical writer did attempt to transfer to Medical records so that she can obtain this information but they kept transferring back to the call center. [facility] [address], [place], [place] [phone] documented in this encounter Plan of Treatment Upcoming Encounters Date Type Department Care Team (Late st Contact Info) Description 10/29/2024 2:30 PM EDT Office Visit [facility] MEDICINE [address] [place] [address] Name, MD Eddie [address] [place] [address] 11/12/2024 9:45 AM EDT Office Visit [facility] MEDICINE [address] [place] [address] documented as of this encounter Visit Diagnoses Not on filedocumented in this encounter Additional Health Concerns Assessment Noted Time PHQ-9 Depression Total Score: 10 023 1:16 PM EDT documented as of this encounter Care Teams Spline Rolling Machine Job Setter Relationship Specialty Start Date End Date Name, MD Eddie [address] [place] [address] PCP - General Family Medicine 09/16/15 Jerica SEN 07/01/24 documented as of this encounter
--- OUTSIDE RECORDS SUMMARY | 2024-09-24 15:49 | XMS_ITS | Encounter Summary ---
Author Organization [email or web address] Address [address] [place] [address] 7 [place] [address] Care Team Providers Care Director Geophysical Laboratory Name Role Phone Name, Eddie GILMORE Primary Care Provider [phone] Reason for Visit * Reason Comments Med Refill Encounter Details Date Type Department Care Team (Late st Contact Info) Description 06/18/2023 Refill [facility] MEDICINE [address] [place], [place] [phone] Name, MD Eddie [address] [place], [place] [phone] Chronic pain syndrome Social History Tobacco Use [...] Description 10/29/2024 2:30 PM EDT Office Visit [address] [address] NameEddie MD [address] [place] [address] 11/12/2024 9:45 AM EDT Office Visit [address] [address] documented as of this encounter Visit Diagnoses Diagnosis Chronic pain syndrome documented in this encounter Additional Health Concerns Assessment Noted Time PHQ-9 Depression Total Score: 10 023 1:16 PM EDT documented as of this encounter Care Teams Director Geophysical Laboratory Relationship Specialty Start Date End Date NameEddie MD [address] [place] [address] PCP - General Family Medicine 09/16/15 [facility] 07/01/24 documented as of this encounter
--- OUTSIDE RECORDS SUMMARY | 2024-09-24 15:49 | XMS_ITS | Encounter Summary ---
Author Organization [employer] Address [address] [facility] 7t [place] [address] Care Team Providers Care Regional Commercial Sales Manager Name Role Phone Name, Eddie GILMORE Primary Care Provider [phone] Reason for Visit * Reason Onset Date Comments Durable Medical Equipment 09/24/2024 Encounter Details Date Type Department Care Team ([facility] st Contact Info) Description 09/24/2024 Telephone [facility] [address] [place], [place] [phone] Name, MD Eddie [address] [place] [address] Durable Medical Equipment Social History Tobacco Use [...] encounter Miscellaneous Notes * Telephone Encounter - Kathy Nina MA - 09/24/2024 9:30 AM EDT DME for transport chair from [facility] received and is being processed. Placed on provider's desk for signature. documented in this encounter Plan of Treatment Upcoming Encounters Date Type Department Care Team (Late st Contact Info) Description 10/29/2024 2:30 PM EDT Office Visit [facility] MED[facility]INE [address] [place] [phone] Name, MD Eddie [address] [place] [address] 11/12/2024 9:45 AM EDT Office Visit [facility] [address] [place] [address] documented as of this encounter Visit Diagnoses Not on filedocumented in this encounter Additional Health Concerns Assessment Noted Time PHQ-9 Depression Total Score: 9 05/10/20 24 11:56 AM EST documented as of this encounter Care Teams Regional Commercial Sales Manager Relationship Specialty Start Date End Date Name, MD Eddie [address] [place] [address] PCP - General Family Medicine 09/16/15 Jerica SEN 07/01/24 documented as of this encounter
--- OUTSIDE RECORDS SUMMARY | 2024-09-24 15:49 | XMS_ITS | Encounter Summary ---
Author Organization [employer] Address [address] [place] [address] 7 [place] [address] Care Team Providers Care Art Museum Aide Name Role Phone Name, Eddie GILMORE Primary Care Provider [phone] Reason for Visit * Reason Onset Date Comments Durable Medical Equipment 09/11/2024 Encounter Details Date Type Department Care Team ([facility] st Contact Info) Description 09/11/2024 Telephone [facility] MEDICINE [address] [place], [place] [phone] Name, MD Eddie [address] [place] [address] Durable Medical Equipment Social History Tobacco Use [...] for Wheel chair signed and faxed to [employer] . Confirmation received and sent to scan. If patient calls to check status on above, please advise them to contact Mister Mario at [phone]. * Telephone Encounter - Fadia Adrian - 09/13/2024 10:30 AM EDT DME RX for transport Wheel chair generated and placed on providers desk for signature. * Telephone Encounter - Will Badillo - 09/11/2024 9:44 AM EDT Tc from Lilly with [employer] stating that pt is requesting a transport wheelchair to be sent to[employer]. Contact Lilly at [phone] documented in this encounter Plan of Treatment Upcoming Encounters Date Type Department Care Team (Late st Contact Info) Description 10/29/2024 2:30 PM EDT Office Visit [facility] MEDICINE [address] [place] [address] Name, [place] [address] 11/12/2024 9:45 AM EDT Office Visit [facility] [place] [address] documented as of this encounter Visit Diagnoses Not on filedocumented in this encounter Additional Health Concerns Assessment Noted Time PHQ-9 Depression Total Score: 9 05/10/20 24 11:56 AM EST documented as of this encounter Care Teams Art Museum Aide Relationship Specialty Start Date End Date Name, MD Eddie Felix [facility] [place] [address] PCP - General Family Medicine 09/16/15 Jerica A 07/01/24 documented as of this encounter
--- OUTSIDE RECORDS SUMMARY | 2024-09-24 15:49 | XMS_ITS | Encounter Summary ---
Author Organization [employer] Address [address] [place] [address] 7 [place] [address] Care Team Providers Care Scaler Name Role Phone Name, Eddie GILMORE Primary Care Provider [phone] Reason for Visit * Reason Comments Med Refill Encounter Details Date Type Department Care Team (Late st Contact Info) Description 05/08/2023 Refill [facility] MEDICINE [address] [place], [place] [phone] Name, MD Eddie [address] [place], [place] [phone] Chronic pain syndrome Social History Tobacco Use [...] Description 10/29/2024 2:30 PM EDT Office Visit [address] [address] NameEddie MD [address] [place] [phone] 11/12/2024 9:45 AM EDT Office Visit [address] [address] documented as of this encounter Visit Diagnoses Diagnosis Chronic pain syndrome documented in this encounter Additional Health Concerns Assessment Noted Time PHQ-9 Depression Total Score: 10 023 1:16 PM EDT documented as of this encounter Care Teams Scaler Relationship Specialty Start Date End Date NameEddie MD [address] [place] [phone] PCP - General Family Medicine 09/16/15 Jerica VNA 07/01/24 documented as of this encounter
--- OUTSIDE RECORDS SUMMARY | 2024-09-24 15:49 | XMS_ITS | Encounter Summary ---
Author Organization [facility] [employer] Address [address] [place] [address] 7 [place] [address] Care Team Providers Care Drier Attendant Name Role Phone NameEddie MD Primary Care Provider [phone] Reason for Visit * Reason Comments Med Refill Encounter Details Date Type Department Care Team (Late Contact Info) Description 02/26/2023 Refill [facility] MEDICINE [address] [place] [address] [phone] NameEddie MD [address] [place] [address] [phone] Chronic pain syndrome Social History Tobacco Use [...] [facility] MED[facility]INE [address] [place] [address] [phone] Eddie Marshall MD [address] [place] [address] [phone] 11/12/2024 9:45 AM EDT Office Visit [facility] MEDICINE [address] [place] [address] documented as of this encounter Visit Diagnoses Diagnosis Chronic pain syndrome documented in this encounter Additional Health Concerns Assessment Noted Time PHQ-9 Depression Total Score: 10 023 1:16 PM EDT documented as of this encounter Care Teams Drier Attendant Relationship Specialty Start Date End Date Name, MD Eddie [address] [place] [address] PCP - General Family Medicine 09/16/15 Jerica A 07/01/24 documented as of this encounter
--- OUTSIDE RECORDS SUMMARY | 2024-09-24 15:49 | XMS_ITS | Clinical Summary ---
Author Organization [employer] Address [address] [place] [address] 7t [place] [address] Care Team Providers Care Water Pump Servicer Name Role Phone Name, Eddie GILMORE Primary Care Provider Allergies Active Allergy Reactions Criticality Noted Date [...] 06/01/20 22 Active Blood Glucose Monitoring Suppl (Gal[employer]ant[employer] Verio Flex System) w/Device kit USE DIRECTED [...] in the morning. 01/10/20 23 Active Lancets (ZeePearluch Delica Plus [id number]) miscIndications :Controlled type 2 diabetes mellitus with complication, without long-term current use of insulin ([facility]) USE TO CHECK BLOOD SUGAR TWICE A DAY 100 each 5 09/15/19 24 Active glucose blood (ZeePearluch Verio) test stripIndication s:Controlled type 2 diabetes mellitus with complication, without long-term current use of insulin ([facility]) CHECK BY FINGERSTICK TWICE DAILY [...] refer stat to ENT for cauterization, possible [facility] scope Recommend anterior nasal packing if she is bleeding heavily jail (current) use of opiate analgesic 03/20 Overview (09/10/2024): Dx: chronic pain syndrome/back pain Rx: Percocet 5/325 every 8 hours Last CALENDER TENDER agreement:03/22/24 Tier II (visit every 3 months) [...] that is chronic 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 She understands this is the [...] Encounters Date Type Department Care Team Description 09/24/2024 Telephone [facility] [address] [place] [phone] Eddie Marshall MD Durable Medical Equipment (Hip protectors) 09/24/2024 Telephone [facility] & PEDS [address] [place] [address] Eddie Marshall MD Durable Medical Equipment 09/20/2024 Orders Only [facility] External Provider, [facility] 09/19/[address] [address] Eddie Marshall MD Call Back Request 09/15/[address] [address] Eddie Marshall MD 09/11/[address] [address] Eddie Marshall MD Durable Medical Equipment 09/10/2024 9:45 AM EDT Office Visit [address] [address] Mckenzie Trent FNP Chronic pain syndrome (Primary Dx); 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 09/10/2024 Travel 09/09/[address] [address] Eddie Marshall MD 09/05/2024 Refill [facility] [place] [address] Eddie Marshall MD Chronic pain syndrome 08/27/2024 Orders Only GENERIC EXTERNAL DATA DEPARTMENT Provider, Generic External Data 08/26/2024 Orders Only [facility] External Provider, [facility] 08/19/2024 Refill [facility] [place] [phone] Eddie Marshall MD 08/14/2024 Orders Only GENERIC EXTERNAL DATA DEPARTMENT Provider, Generic External Data 08/13/2024 Telephone [facility] [phone] Eddie Marshall MD Appointment Request 08/09/2024 Telephone [facility] [place] [facility] [place] [address] Sophie Marie MA september recalls 08/09/2024 Telephone [facility] [place] [address] Sophie Marie MA september recalls 08/09/2024 Refill [facility] [place] [address] Eddie Marshall MD Chronic pain syndrome 08/02/2024 2:30 PM EST Office Visit [facility] [place] [address] Latanya Hoover MD Epistaxis (Primary Dx); Controlled type 2 diabetes mellitus with complication, without long-term current use of insulin ([facility]); Dietary counseling; Exercise counseling; Overweight; Anemia, unspecified type 08/02/2024 Travel 07/30/2024 Telephone [facility] [place] [facility] [place] [phone] Eddie Marshall MD ER Follow-up 07/23/2024 9:00 AM EST Office Visit [facility] [place] [facility] [place] [phone] Kelly Montoya MD Chronic pain syndrome (Primary Dx) 07/23/2024 Travel 07/17/2024 Refill [facility] [place] [facility] [place] [address] Name, MD Eddie 07/16/2024 9:45 AM EST Office Visit [facility] [address] [place] [address] Mckenzie Trent FNP Chronic pain syndrome (Primary Dx); 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 07/16/2024 9:15 AM EST Office Visit [facility] [address] [place] [address] Kelly Montoya MD Chronic pain syndrome (Primary Dx) 07/16/2024 Orders Only [facility] External Provider, [facility] 07/16/2024 Travel 07/12/2024 Refill [facility] [address] [place] [address] NameEddie MD 07/12/2024 Refill [facility] [address] [place] [address] NameEddie MD Chronic pain syndrome 07/02/2024 Telephone [facility] [address] [place] [phone] NameEddie MD from Last 3 Months Immunizations Name Administration Dates Next Due Influenza injectable quadriv alent IIV4 with preservative 04/07/2016 Influenza, IIV3, injectable 03/23/2015,1 ,03/08/2013,04/06,05/01/2008,04/19/2007,05/10/2006 ,03/15/2005 Novel [id number], preservative-free 05/22/2009 Pneumococcal Polysaccharide PPSV23 07/11/2013, TD [...] 2:30 PM EDT Office Visit [facility] [place], [place] [phone] Name, [place] [address] 11/12/2024 9:45 AM EDT Office Visit [facility] [place] [address] Health Maintenance Due Date Last Done Comments [...] 01/15/2025 01/16/2024, 09/14/2022 Lipid Panel 01/15/2025 01/16/2024, /02/2023, 03/18/2020 Diabetes: Hemoglobin A1C 01/30/2025 025, 02/05/2024, [...] 09/10/2024 1:29 PM EDT Chronic pain syndrome jail (current) use of opiate analgesic CT CHEST [...] DRUG SCREEN Routine 07/16/2024 1:49 PM EST 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 [facility] ?[address] ?[place] [address] ?XRay Report ? Signed ? Patient: Jenniffer,Celeste ?MR#: [id number] ?? 4 ? : 1945 ?Acct:[id number] ? Age/Sex: 78 / F ?ADM Date: 09/20/24 ? Loc: HO.XRAY ? Attending Dr: Maria Esther Blum [facility] ? Ordering Physician: Maria Esther Blum NP ?? Date of Service: 09/20/24 ?? Procedure(s): XR chest 2V ?? Accession Number(s): [id number] ? cc: Name,Eddie GILMORE; Maria Esther Blum [...] DD/ 1012 ? TD/TT: 09/20/24 1017 ? Turning Machine Set Up Operator: ? Procedure Note Geoff, Image - 09/20/[address] [address] XRay Report Signed Patient: Celeste AbadMR#: [id number] 4 : 7Acct:[id number] Age/Sex: 78 / FADM Date: 09/20/24 Loc: LETTY Attending Dr: Maria Esther Blum NP Ordering Physician: Maria Esther Blum NP Date of Service: 09/20/24 Procedure(s): XR chest 2V Accession Number(s): [id number] cc: Name,Eddie GILMORE; Maria Esther Blum NP EXAMINATION: XR CHEST [...] 09/20/24 1024 DD/ 1012 TD/TT: 09/20/24 1017 Turning Machine Set Up Operator: [facility] External Provider IMG XR PROCEDURES [...] Unknown 09/10/2024 1:29 PM EDT Narrative Zuly Suarez, OSKAR - 09/10/2024 1:30 PM EDT Lot:[id number] Exp: 02/06/2028 Mckenzie Trent SENIOR ENGINEERING TECH POINT OF CARE TEST ENTER/EDIT ORDERABLES Final Result * CT Chest w/o Contrast (08/27/2024 2:12 PM EDT) Anatomical Region Laterality Modality Body, Chest Computed Tomogra phy 08/27/2024 2:12 PM EDT Narrative 08/27/2024 2:14 PM EDT ? [facility] ?[address] ?[place] [address] ? CT Scan Report ? Signed ? Patient: Celeste Abad ?MR#: [id number] ?? 4 ? : 1945 ?Acct:[id number] ? Age/Sex: 78 / F ?ADM Date: 08/26/24 ? Loc: HO.CT ? Attending Dr: Maria Esther Blum [facility] ? Ordering Physician: Maria Esther Blum NP ?? Date of Service: 08/26/24 ?? Procedure(s): CT chest wo IV con ?? Accession Number(s): [id number] ? cc: Name,Eddie GILMORE; Maria Esther Blum [facility] ? Report Number: ?? [id number]: Total DLP = ??208.00 mGy-cm ? CLINICAL [...] DD/ 1412 ? TD/TT: 08/27/24 1412 ? Turning Machine Set Up Operator: ? Procedure Note Donjose ramonter, Image - 08/27/[address] [address] [address] Scan Report Signed Patient: Ventura Abad#: [id number] 4 : 1945cct:[id number] Age/Sex: 78 / FADM Date: 08/26/24 Loc: HO.CT Attending Dr: Maria Esther Blum NP Ordering Physician: Maria Esther Blum NP Date of Service: 08/26/24 Procedure(s): CT chest wo IV con Accession Number(s): [id number] cc: Name,Eddie GILMORE; Maria Esther Blum NP Report Number: [id number]: Total DLP = 208.00 mGy-cm CLINICAL HISTORY: [...] 08/27/24 1413 DD/ 1412 TD/TT: 08/27/24 1412 Turning Machine Set Up Operator: us [facility] External Provider IMG CT PROCEDURES Final Result * (ABNORMAL) Iron And Total Iron Binding Capacity (08/27/2024 1:25 PM EDT) Iron 14(L) 30 - 160 mcg/dL [facility] Total Iron Binding Capacity 295 228 - 428 mcg/dL [facility] Percent Iron Saturation 5(L) 15 - 50 % [facility] Unsaturated Iron Binding 281 ug/dL [facility] 08/27/2024 1:25 PM EDT 08/27/2024 1:25 PM EDT us Generic External Data Provider LAB BLOOD ORDERAB LES Final Result [facility] [address] [place] [phone] * (ABNORMAL) CBC (08/27/2024 1:25 PM EDT) White Blood Count 9.0 4.8 - 10.8 X10*3/uL [facility] Red Blood Count 4.06(L) 4.20 - 5.50 X10*6/uL [facility] Hemoglobin 10.0(L) 12.0 - 16.0 g/dl [facility] Hematocrit 33.1(L) 37.0 - 47.0 % [facility] Mean Corpuscular Volume 81.5 80.0 - 98.0 fL [facility] Mean Corpuscular Hemoglobin 24.6(L) 27.0 - 33.0 pg [facility] Mean Corpuscular HGB Conc 30.2(L) 31.0 - 35.0 g/dl [facility] Red Cell Distribution Width 16.3(H) 11.0 - 16.0 % [facility] Platelet Count 393 160 - 400 X10*3/uL [facility] Mean Platelet Volume 9.4 9.4 - 12.3 fL [facility] NRBC Pct Auto 0.0 0.0 - 0.2 /100WBC [facility] NRBC Abs Auto 0.000 0.0 - 0.012 X10*3/uL [facility] 08/27/2024 1:25 PM EDT 08/27/2024 1:25 PM EDT us Generic External Data Provider LAB BLOOD ORDERAB LES Final Result Performing Organization Address [facility]/ZIP Co de Phone Number [facility] [address] [place] [address] [phone] * Ferritin (08/27/2024 1:25 PM EDT) Ferritin 35 10 - 250 ng/mL [facility] 08/27/2024 1:25 PM EDT 08/27/2024 1:25 PM EDT us Generic External Data Provider LAB BLOOD ORDERAB LES Final Result Performing Organization Address [facility] de Phone Number [facility] [address] [place] [address] [phone] * FL Esophagus Barium Swallow w/Air (08/14/2024 9:52 AM EST) Anatomical Region Laterality Modality Head, Neck Radiographic Tanya ging 08/14/2024 9:52 AM EST Narrative 08/15/2024 4:55 PM EST ? [facility] ?[address] ?[place] [address] ? Fluoroscopy Report ? Signed ? Patient: Celeste Abad ?MR#: [id number] ?? 4 ? : 1945 ?Acct:[id number] ? Age/Sex: 78 / F ?ADM Date: 08/14/24 ? Loc: HO.XRAY ? Attending Dr: Julia Li MD ? Ordering Physician: Julia Li MD ?? Date of Service: 08/14/24 ?? Procedure(s): FL barium swallow with air ?? Accession Number(s): [id number] ? cc: Eddie Marshall MD; Julia Li [...] ??08/15/2024 04:52 PM EST RP ?? Workstation: [id number] ? Dictated By: ?Devon Delvalle ? Signed By: ?<Electronically signed by Devon Delvalle in OV> ? 08/15/24 1652 ?<Electronically signed by Sagar Shore MD in OV> ? 08/15/244 ? DD/ 0952 ? TD/TT: 08/14/24 1020 ? Turning Machine Set Up Operator: ? Procedure Note Donotuseinterpreter, Image - 08/15/[address] [address] Fluoroscopy Report Signed Patient: Ventura Abad#: [id number] 4 : 7Acct:[id number] Age/Sex: 78 / FADM Date: 08/14/24 Loc: HO.JAYAY Attending Dr: Julia Li MD Ordering Physician: Julia Li MD Date of Service: 08/14/24 Procedure(s): FL barium swallow with air Accession Number(s): [id number] cc: Eddie Marshall MD; Julia Li MD [...] Sagar Shore MD 08/15/2024 04:52 PM EST Dictated By: Devon Delvalle Signed By: <Electronically signed by Devon Delvalle in OV> 08/15/24 1652 <Electronically signed by Sagar Shore MD in OV> 08/15/24 1654 DD/ 0952 TD/TT: 08/14/24 1020 Turning Machine Set Up Operator: [facility] External Provider IMG FLU OROSCOPY PROCEDURES Final Result * Immunofixation (ALEXANDER), Urine (08/14/2024 9:41 AM EST) ALEXANDER Interpretation SEE NOTE H [facility] Comment:Normal pattern. No m onoclonal proteins detected.The supplier of the testing reagents for this assayhas changed. Detection of small monoclonal proteins mayvary by test system.THIS TEST WAS PERFORMED AT:[employer] [place] [id number] PAYNE MD 08/14/2024 9:41 AM EST 08/14/2024 10:39 AM EST us Generic External Data Provider LAB URINE ORDERAB LES Final Result Performing Organization Address [facility]/ZIP Co de Phone Number [facility] [address] [place] [phone] * (ABNORMAL) Protein, Total and Protein??Electrophoresis (08/14/2024 9:37 AM EST) Prot Elec - Total Protein 6.7 6.1 - 8.1 g/dL [facility] Prot Elec - Albumin 3.2(A) 3.8 - 4.8 g/dL [facility] Prot Elec - Alpha1 0.4(A) 0.2 - 0.3 g/dL [facility] Prot Elec - Alpha2 1.1(A) 0.5 - 0.9 g/dL [facility] Prot Elec - Beta 1 0.5 0.4 - 0.6 g/dL [facility] Prot Elec - Beta 2 0.5 0.2 - 0.5 g/dL [facility] Prot Elec - Gamma 1.0 0.8 - 1.7 g/dL [facility] PES - Abn Protein Band 1 TNP [facility] PES-Abn Protein Band 2 TNP [facility] PES-Abn Protein Band 3 [facility] Prot Elec - Interpretation SEE NOTE [facility] Comment:Evaluation is consis tent with an acute inflammatorypattern.THIS TEST WAS PERFORMED AT:[employer] [place] [id number] PAYNE MD 08/14/2024 9:37 AM EST 08/14/2024 9:41 AM EST us Generic External Data Provider LAB BLOOD ORDERAB LES Final Result Performing Organization Address City/[facility] Co de Phone Number [facility] [address] [place] [phone] * (ABNORMAL) Phosphate (As Phosphorus) (08/14/2024 9:37 AM EST) Phosphorus 2.6(L) 2.7 - 4.5 mg/dL [facility] 08/14/2024 9:37 AM EST 08/14/2024 9:41 AM EST Generic External Data Provider LAB BLOOD ORDERAB LES Final Result [facility] [address] [place] [address] [phone] * (ABNORMAL) POCT HGB A1C (08/02/2024 [...] EST Narrative 07/16/2024 7:07 PM EST ? [facility] ?[address] ?[place] [address] ?XRay Report ? Signed ? Patient: Jenniffer,Celeste ?MR#: [id number] ?? 4 ? : 1945 ?Acct:[id number] ? Age/Sex: 78 / F ?ADM Date: 07/16/24 ? Loc: HO.ED ? Attending Dr: ? Ordering Physician: Rhea Ken ?? Date of Service: 07/16/24 ?? Procedure(s): XR KUB ?? Accession Number(s): [id number] ? cc: Rhea Ken; Name,Eddie GILMORE ? [...] ? DD/ 06 ? TD/TT: 07/16/241906 ? Turning Machine Set Up Operator: ? Procedure Note Geoff, Image - 07/16/2024 [place] [address] XRay Report Signed Patient: Ventura Abad#: [id number] 4 : 7Acct:[id number] Age/Sex: 78 / FADM Date: 07/16/24 Loc: HO.ED Attending Dr: Ordering Physician: Rhea Ken Date of Service: 07/16/24 Procedure(s): XR KUB Accession Number(s): [id number] cc: Rhea Ken; Name,Eddie GILMORE CLINICAL HISTORY: [...] in OV> 07/16/241906 DD/ 06 TD/TT: 07/16/241906 Turning Machine Set Up Operator: [facility] External Provider IMG XR PROCEDURES Final Result * SARS-CoV-2 RNA, Influenza A/B, and RSV RNA, Ql NAAT (07/16/2024 7:06 PM EST) Influenza A PCR NEGATIVE Negative [facility] Influenza B PCR NEGATIVE Negative [facility] Resp Syncy Virus RNA Qual PCR NEGATIVE Negative [facility] SARS COV2 PCR NEGATIVE Negative [facility] Comment:All test results mus t [...] use by authorized laboratories.Testing performed on the [employer] OTR GeneXpert utilizingreal-time RT-PCR.All SARS CoV2 and positive influenza A/B results arereported to [facility]. 07/16/2024 7:06 PM EST 07/16/2024 7:11 PM EST Generic External Data Provider LAB MICROBIOLOGY - GENERAL ORDERABLES Final Result [facility] [address] [place] [address] [phone] * (ABNORMAL) CBC auto differential (07/16/2024 7:06 PM EST) White Blood Count 10.1 4.8 - 10.8 X10*3/uL [facility] Red Blood Count 4.68 4.20 - 5.50 X10*6/uL [facility] Hemoglobin 13.3 12.0 - 16.0 g/dl [facility] Hematocrit 40.7 37.0 - 47.0 % [facility] Mean Corpuscular Volume 87.0 80.0 - 98.0 fL [facility] Mean Corpuscular Hemoglobin 28.4 27.0 - 33.0 pg [facility] Mean Corpuscular HGB Conc 32.7 31.0 - 35.0 g/dl [facility] Red Cell Distribution Width 15.0 11.0 - 16.0 % [facility] Platelet Count 272 160 - 400 X10*3/uL [facility] Mean Platelet Volume 9.9 9.4 - 12.3 fL [facility] Neutrophils Percent Auto 74.5(H) 45 - 73 % [facility] Imm Gran Pct Auto 0.3 0.0 - 0.4 % [facility] Lymphocytes Percent Auto 16.3(L) 20 - 40 % [facility] Monocytes Percent Auto 8.0 2 - 11 % [facility] Eosinophils Percent Auto 0.7 0 - 4 % [facility] Basophils Percent Auto 0.2 0 - 2 % [facility] NRBC Pct Auto 0.0 0.0 - 0.2 /100WBC [facility] Neutrophils Absolute Auto 7.6 2.0 - 8.3 x10*3/uL [facility] Imm Gran Abs Auto 0.03 0.00 - 0.03 X10*3/uL [facility] Lymphocytes Absolute Auto 1.7 1.2 - 4.9 X10*3/uL [facility] Monocytes Absolute Auto 0.8 0.1 - 1.2 X10*3/uL [facility] Eosinophils Absolute Auto 0.1 0.0 - 0.4 X10*3/uL [facility] Basophils Absolute Auto 0.0 0.0 - 0.2 X10*3/uL [facility] NRBC Abs Auto 0.000 0.0 - 0.012 X10*3/uL [facility] 07/16/2024 7:06 PM EST 07/16/2024 7:11 PM EST us Generic External Data Provider LAB BLOOD ORDERAB LES Final Result Performing Organization Address [facility] Co sd Phone Number [facility] [address] [place] [phone] * Magnesium (07/16/2024 7:06 PM EST) Magnesium 2.2 1.6 - 2.6 mg/dL [facility] 07/16/2024 7:06 PM EST 07/16/2024 7:11 PM EST Generic External Data Provider LAB BLOOD ORDERAB LES Final Result Performing Organization Address [facility] Phone Number [facility] [address] [place] [phone] * Lipase (07/16/2024 7:06 PM EST) Lipase 8 8 - 78 U/L [facility] 07/16/2024 7:06 PM EST 07/16/2024 7:11 PM EST Generic External Data Provider LAB BLOOD ORDERAB LES Final Result Performing Organization Address [facility] Phone Number [facility] [address] [place] [phone] * (ABNORMAL) Hepatic Function Panel (07/16/2024 7:06 PM EST) Bilirubin, Total 0.4 0.0 - 1.0 mg/dL [facility] Bilirubin, Direct 0.2 0.0 - 0.5 mg/dL [facility] Aspartate Amino Transferase 37(H) 5 - 31 U/L [facility] Alanine Aminotransferase 27 0 - 31 U/L [facility] Total Protein 7.5 6.5 - 8.0 g/dL [facility] Albumin Level 3.9 3.5 - 5.0 g/dL [facility] Alkaline Phosphatase 136(H) 39 - 117 U/L [facility] 07/16/2024 7:06 PM EST 07/16/2024 7:11 PM EST us Generic External Data Provider LAB BLOOD ORDERAB LES Final Result Performing Organization Address [facility]/State/ZIP Co de Phone Number [facility] [address] [place] [phone] * (ABNORMAL) Basic Metabolic Panel (07/16/2024 7:06 PM EST) Sodium 139 135 - 145 mmol/L [facility] Potassium 4.3 3.3 - 5.1 mmol/L [facility] Chloride 102 96 - 108 mmol/L [facility] Carbon Dioxide 25 22 - 29 mmol/L [facility] Anion Gap 16 12 - 20 [facility] Urea Nitrogen (BUN) 18(H) 9 - 16 mg/dL [facility] Creatinine, Serum 0.73 0.5 - 1.4 mg/dL [facility] Creatinine Clr Calc Pharmacy 58.3 [facility] Comment:Provided height and weight: 157.48 cm,68.039 kg.eGFR (calculated from the MDRD study equation) and eCrCl(calculated from the Cockcroft-Gault equation) are based ondifferent parameters and may not yield comparable results.If eCrCl result is absurd, please check patient'sheight/weight. Estimated Glomerular Filt Rate >60 [facility] Comment:Chronic Kidney Disea se: Estimated GFR < 60 mL/min/1.38y1Fjprwh Kidney Disease: Estimated GFR < 15 mL/min/1.73m2 Glucose 124(H) 60 - 115 mg/dL [facility] Calcium 9.1 8.4 - 10.2 mg/dL [facility] 07/16/2024 7:06 PM EST 07/16/2024 7:11 PM EST us Generic External Data Provider LAB BLOOD ORDERAB LES Final Result Performing Organization Address [facility] Co de Phone Number [facility] [address] [place] [phone] [phone] * (ABNORMAL) Lipid Panel, Standard (01/16/2024 9:40 AM EDT) Triglycerides 199(H) <150 mg/dL [facility] Comment:Desirable Triglyceri de: less than 150 mg/dLBorderline High Triglyceride 150-199 mg/dLHigh Triglyceride: 200-499 mg/dLVery High Triglyceride: greater than or equal to 5OO mg/dL Cholesterol 150 <200 mg/dL [facility] Comment:Desirable Cholestero l: less than 200 mg/dLBorderline High Cholesterol: 200-239 mg/dLHigh Cholesterol: greater than 239 mg/dL LDL Cholesterol Calculated 63 <100 mg/dL [facility] Comment:Desirable LDL: less than 100 mg/dLNear Optimal/Above Optimal LDL: 110- 129 mg/dLBorderline High LDL: 130-159 mg/dLHigh LDL: 160-189 mg/dLVery High LDL: greater than or equal to 190 mg/dL HDL Cholesterol 48 >40 mg/dL [facility] Comment:Desirable HDL: great er than 40 mg/dL Note: This HDL assay may give artificially low results in patients with liver disease. Blood Venous blood specimen / Unknown 01/16/2024 9:40 AM EDT 01/16/2024 11:20 AM EDT us Eddie Name LAB BLOOD ORDERABLES Final Resul t Performing Organization Address [facility]/ZIP Co de Phone Number [facility] [address] [place] [address] [phone] * Albumin, Random Urine W/Creatinine (01/16/2024 9:35 AM EDT) Creatinine, Urine 27.62 mg/dL [facility] Microalbumin Urine <5.0 mg/L [facility] Microalbum Creatinine Ratio Ur TNP <30 ug/mg cr [facility] Comment:Unable to calculate albumin/creatinine ratio due to lowmicroalbumin or creatinine result. Urine (Urine, Random) 01/16/2024 9:35 AM EDT 01/16/2024 11:12 AM EDT us Eddie Marshall MD LAB URINE ORDERABLES Final Resul t [facility] [address] [place] [phone] * Hm Diabetes Eye Exam (05/16/2023) Eye Exam Normal Normal us Eddie Marshall MD HEALTH MAINTENANCE Final Result * (ABNORMAL) Hepatitis Panel, General (11/18/2022 2:07 PM EDT) Hepatitis A Antibody Total REACTIVE( A) NON-REACT NAHID [facility] Comment: For additional information, please refer to http://Truly Wireless.Ohloh/faq/BIY860 (This link is being provided for informational/ educational purposes only.) Hepatitis B Surface Antibody QL NON-REACT NAHID NON-REACT NAHID [facility] Hepatitis B Surface Ag NON-REACT NAHID NON-REACT NAHID [facility] Hepatitis B Core Antibody Total NON-REACT NAHID NON-REACT NAHID [facility] Hepatitis C Antibody NON-REACT NAHID NON-REACT NAHID [facility] Index 0.07 <1.00 [facility] Comment: HCV antibody was non-reactive. There is no laboratory evidence of HCV infection. In most cases, no further action is required. However, if recent HCV exposure is suspected, a test for HCV RNA (test code 36478) is suggested. For additional information please refer to http://Truly Wireless.Ohloh/faq/NGC06b8 (This link is being provided for informational/ educational purposes only.) 11/18/2022 2:07 PM EDT 11/18/2022 2:09 PM EDT Narrative [facility] - 11/19/2022 6:51 AM EDT COLLECTION KIT GIVEN TO PATIENT. PATIENT ADVISED TO RETURN. us Mckenzie Pillai SENIOR ENGINEERING TECH LAB BLOOD ORDERABLES Final Res ult [facility] [address] [facility], [facility], [place] [address] [facility] [address] [place] [address] from Last 3 Months or Most Recently Relevant to Health Maintenance Insurance WILBUR MANZANO [employer] [place] [id number] Care Teams Water Pump Servicer Relationship Specialty Start Date End Date Name, MD Eddie [address] [place] [address] PCP - General Family Medicine 09/16/15 [facility]
--- OUTSIDE RECORDS SUMMARY | 2024-09-24 15:49 | XMS_ITS | Encounter Summary ---
Author Organization [employer] Address [address] [place] [address] 7 [place] [address] Care Team Providers Care Stereoplotter Operator Name Role Phone Name, Eddie GILMORE Primary Care Provider [phone] Reason for Visit * Reason Onset Date Comments Durable Medical Equipment 09/24/2024 Hip pr otectors Encounter Details Date Type Department Care Team ([facility] st Contact Info) Description 09/24/2024 Telephone [facility] MED[facility]INE [address] [place], [place] [phone] Name, MD Eddie [address] [place] [address] Durable Medical Equipment (Hip protectors) Social History Tobacco Use Types Packs/Day Years [...] * Telephone Encounter - Fadia Adrian - 09/24/2024 12:56 PM EDT DME request received for hip protectors from [facility] [facility] . Please advise if agree with DME request. Thank you documented in this encounter Plan of Treatment Upcoming Encounters Date Type Department Care Team (Late st Contact Info) Description 10/29/2024 2:30 PM EDT Office Visit [facility] MED[facility]INE [address] [place] [address] Name, MD Eddie [address] [place] [address] 11/12/2024 9:45 AM EDT Office Visit [facility] [address] [place] [address] documented as of this encounter Visit Diagnoses Not on filedocumented in this encounter Additional Health Concerns Assessment Noted Time PHQ-9 Depression Total Score: 9 05/10/20 24 11:56 AM EST documented as of this encounter Care Teams Stereoplotter Operator Relationship Specialty Start Date End Date Name, MD Eddie [address] [place] [address] PCP - General Family Medicine 09/16/15 [place] SEN 07/01/24 documented as of this encounter
--- OUTSIDE RECORDS SUMMARY | 2024-09-24 15:49 | XMS_ITS | Data Portability ---
Author Organization [place] - [facility], Allergy Address [address] [place] [address] Care Team Providers Care Mailmaster Name Role Phone NAME, DELIA Primary Care [...] Organization Details Recorded Time Essential hypertens ion 72914367 Active 2014 Essential (primary) hypertensi on; Note: Date Diagnosed: 05/07/2015 9:43 AM (I10) Not Available [facility] 02:37:47 Bleeding from nose 802085568 Active 2014 Epistaxis; Note: Date Diagnosed: 05/07/2015 9:43 AM (R04.0) Not Available [employer] 4 02:37:50 Anterior epistaxis 804313882 Active 2024 YANIV GARCIA MD [address] [facility],[place] [address], [place], [address] , [facility] 5 12:32:29 Problem Notes None recorded. Procedures Surgical History Date Name Laterality Status Provider Name and Address Organization Details Recorded Time 5 Epistaxis Simple Nasal Cautery Right completed YANIV GARCIA MD [address] [facility], [place], [address], [facility] 08/11/2024 12:31:38 Imaging Results None recorded. Procedure Notes None recorded. Medical Equipment None Reported. Allergies Allergen ID Allergen Name Allergen Category Reaction Reaction Severity Criticality Documentation Date Start Date Code Code System Note Provider Name and Address Organization Details Recorded Time 69026 atorvasta tin medicatio n other Not available Not available 10/31/2023 95050 RxNorm React ion: unkno wn, unspe cifie d;; Not Available [facility] 4 00:59:20 Medications Name Sig Start [...] 24 hr 08/09 completed Medicati on ID: [id number] D uration Value: 90 Brand Name: oxybutyn in chloride Send Method: E-Prescr ibed Sub s Allowed: subs OK Speci al Instruct ion: TAKE 1 TABLET BY MOUTH EVERY DAY Medi cationGe nericNam e: oxybutyn in chloride Not Available Not Available Not Available Patanol 0.1 % eye drops 08/09 completed Medicati on ID: 714092 B rand Name: Patanol Send Method: E-Prescr [...] layed release 08/09 completed Medicati on ID: 848002 B rand Name: aspirin Send Method: E-Prescr ibed Sub s Allowed: subs OK Medic ationGen ericName : aspirin Not Available Not Available Not Available tramadol 50 mg tablet 2014 active Medicati on ID: 513452 D uration Value: 28 Brand Name: tramadol Send Method: E-Prescr ibed Sub s Allowed: subs OK Speci al Instruct ion: TAKE 1 TABLET BY MOUTH EVERY 8 HOURS NEEDED FOR PAIN Med icationG enericNa me: tramadol Not Available Not Available Not Available nortripty line 25 mg capsule 08/09 completed Medicati on ID: 863193 D uration Value: 90 Brand Name: nortript yline Se nd Method: E-Prescr ibed Sub s Allowed: subs OK Speci al Instruct ion: TAKE 3 CAPSULES BY MOUTH AT BEDTIME Medicati onGeneri cName: nortript yline Not Available Not Available Not Available levothyro xine 100 mcg tablet 08/09 completed Medicati on ID: [id number] D uration Value: 90 Brand Name: levothyr [...] elayed release 2014 active Medicati on ID: 928047 D uration Value: 90 Brand Name: omeprazo [...] ne propionat e 50 mcg/actua tion nasal spray,[facility] 2013 active Medicati on ID: 851315 D uration Value: 30 Brand Name: fluticas one Send Method: E-Prescr ibed Sub s Allowed: subs ALESSIO Orantes al Instruct ion: SPRAY 2 SPRAYS INTO EACH NOSTRIL DAILY Me dication GenericN delmi: fluticas one Not Available Not Available Not Available loratadin e 10 mg tablet 08/09 completed Medicati on ID: 790962 D uration Value: 30 Brand Name: loratadi [...] 500 mg tablet active Medicati on ID: 668338 B rand Name: Tylenol Extra Strength Send [...] Updated DateTime 09/06/2024 157.48 cm 25.4 kg/m2 89300.34 g KELLY NAFISA [place] - [facility] 09/06/2024 13:28:14 Social History None recorded. Functional Status None recorded. Mental Status None recorded. Family History Nothing Reported. Medical History Condition Response Heart Attack (IN) Y Anemia Y Stroke Y Hypertension Y Asthma Y Gynecological HistoryNo gynecological history recorded. Obstetrics History GPAL:G 0 P 0 0 0 0 Past Encounters Encounter ID Performer Location Encounter Start Date Encounter Closed Date Diagnosis/Indication Diagnosis SNOMED-CT Code Diagnosis ICD10 Code Diagnosis Note [id number] YANIV GARCIA MD [facility] [address] [address] 08/09/2024 09:39:15 08/09/2024 11:07:17 Anterior epistaxis 358701576 R04.0 78-year-ol d female with a history [...] for cautery on the left. Essential hypertension 53373312 I10 Long-term current use of antiplatelet drug 3103286362 78664 Z79.02 [id number] YANIV GARCIA MD [facility] [address] [place] [address] 09/06/2024 13:16:33 09/06/2024 13:54:17 Anterior epistaxis 023331888 R04.0 Bleeding from nose 64789 6005 R04.0 Essential hypertension 73103193 I10 Health Concerns Section Related Observation LastModified by Organization Detai ls LastModified Time None Recorded Concern Status LastModified by Organization Details LastModified Time None Recorded Advance Directives Directive None Recorded Payers Encounter Date Sequence Insurance Name Policy Number Policy Zapata Covered Member ID Zapata Member ID Guarantor Name 08/09/2024 1 [facility] (MEDICAID HMO) Celeste Abad [id number] Celeste Abad 09/06/2024 1 [facility] (MEDICAID HMO) Celeste Abad [id number] Celeste Abad Notes Date Note Type Note [...] able to stop them YANIV GARCIA MD [address] [place] [address],[address], [address], [place] - [facility] 08/11/2024 12:36:32 09/06/2024 text/html 78yo female with hypertension on clopidogrel presents for reevaluation of right recurrent nosebleeds. Right septum cauterized 08/09/[address] Garcia. Patient reports persistent recurrent right-sided nasal bleeding every couple days. Most recent episode 3 days ago, managed quickly with nasal cease. She is in the process of scheduling iron transfusions through [facility]. She was recently diagnosed with emphysema. She continues to touch the nose frequently. YANIV GARCIA MD [address] [facility],[address], [address], [facility] - [facility] 09/06/2024 17:25:55 OBGyn Episode No OBEpisode recorded.
--- OUTSIDE RECORDS SUMMARY | 2024-09-24 15:49 | XMS_ITS | Encounter Summary ---
Author Organization [employer] Address [address] [place] [address] 7 [place] [address] Care Team Providers Care Coal Trimmer Name Role Phone Name, Eddie GILMORE Primary Care Provider [phone] Reason for Visit * Reason Onset Date Comments Referral 02/02/2023 Back dated refer ral Encounter Details Date Type Department Care Team ([facility] st Contact Info) Description 02/02/2023 Telephone [facility] MEDICINE [address] [place], [place] [phone] Name, MD Eddie [address] [place] [address] Referral (Back dated referral ) Social History [...] 1:40 PM EDT Tc from Kasie at [facility] requesting status on message below regarding referral. Fax number [phone]. Any questions please call [phone] * Telephone Encounter - Amber Roger RN - 02/03/2023 10:34 AM EDT Please review message below regarding backdated referral for these dates * Telephone Encounter - Laure Mcgill - 02/02/2023 2:07 PM EDT Tc from Kasie at [facility] calling in regards to referral needing to be back dated. Patient was seen at the office on 01/03/23 and 01/11/23. Fax number [phone]. Any questions please call [phone]. documented in this encounter Plan of Treatment Upcoming Encounters Date Type Department Care Team (Late st Contact Info) Description 10/29/2024 2:30 PM EDT Office Visit [address] [address] Name, MD Eddie [address] [place] [address] 11/12/2024 9:45 AM EDT Office Visit [address] [address] documented as of this encounter Visit Diagnoses Not on filedocumented in this encounter Additional Health Concerns Assessment Noted Time PHQ-9 Depression Total Score: 10 023 1:16 PM EDT documented as of this encounter Care Teams Coal Trimmer Relationship Specialty Start Date End Date Name, MD Eddie [address] [place] [address] PCP - General Family Medicine 09/16/15 [place] SEN 07/01/24 documented as of this encounter
--- OUTSIDE RECORDS SUMMARY | 2024-09-24 15:49 | XMS_ITS | Encounter Summary ---
Author Organization [employer] Address [address] [place] [address] [place] [address] Care Team Providers Care Nailer Operator Name Role Phone Name, Eddie GILMORE Primary Care Provider [phone] Reason for Visit * Reason Onset Date Comments Hospital Follow-up 11/10/2022 Encounter Details Date Type Department Care Team (Late st Contact Info) Description 11/10/2022 Refill [facility] MED[facility]INE [address] [place], [place] [phone] Name, MD Eddie [address] [place] [address] Social History Tobacco Use Types Packs/Day Years [...] Sent: 11/21/2022 5:23 PM EDT To: [facility] Team Nurses Hi team! Sent this pt to the ED over the weekend for Hgb 7. Got admitted and looks like recently discharged. Can you please outreach her for status check and sched HDF w/ Name? Thank you!! * Telephone Encounter - Suzette Singh RN - 11/22/2022 11:10 AM EDT T/C to [phone] to schedule HDF apt. No answer. LVM to call back on [phone]. ----- Message from Amber Roger RN sent at 11/22/2022 9:06 AM EDT ----- ----- Message ----- From: DENIS Jackman Sent: 11/21/2022 5:23 PM EDT To: [facility] Team Nurses Ar team! Sent this pt to the ED over the weekend for Hgb 7. Got admitted and looks like recently discharged. Can you please outreach her for status check and sched HDF w/ DrRod Name? Thank you!! documented in this encounter Plan of Treatment Upcoming Encounters Date Type Department Care Team (Late st Contact Info) Description 10/29/2024 2:30 PM EDT Office Visit [facility] [address] [place] [address] Eddie Marshall MD [address] [place] [address] 11/12/2024 9:45 AM EDT Office Visit [address] [address] documented as of this encounter Visit Diagnoses Not on filedocumented in this encounter Care Teams Nailer Operator Relationship Specialty Start Date End Date Eddie Marshall MD [address] [place] [address] PCP - General Family Medicine 09/16/15 [place] SEN 07/01/24 documented as of this encounter
--- OUTSIDE RECORDS SUMMARY | 2024-09-24 15:49 | XMS_ITS | Encounter Summary ---
Author Organization [employer] Address [address] [place] [address] 7 [place] [address] Care Team Providers Care Executive Sales Manager Name Role Phone Name, Eddie GILMORE Primary Care Provider [phone] Reason for Visit * Reason Comments Med Refill Encounter Details Date Type Department Care Team (Late Contact Info) Description 12/01/2022 Refill [facility] MEDICINE [address] [place], [place] [phone] Name, MD Eddie 230 [place] [address] Controlled type 2 diabetes mellitus with complication, without long-term current use of insulin ([facility]) Social History Tobacco Use Types [...] 2:30 PM EDT Office [facility] [place] [address] Name, MD Eddie [facility] [place] [address] 11/12/2024 9:45 AM EDT Office Visit [facility] [place] [address] documented as of this encounter Visit Diagnoses Diagnosis Controlled type 2 diabetes mellitus with complication, without long-term current use of insulin ([facility]) documented in this encounter Additional Health Concerns Assessment Noted Time PHQ-9 Depression Total Score: 10 023 1:16 PM EDT documented as of this encounter Care Teams Executive Sales Manager Relationship Specialty Start Date End Date Name, [place] [address] PCP - General Family Medicine 09/16/15 [place] BURGOSA 07/01/24 documented as of this encounter
--- OUTSIDE RECORDS SUMMARY | 2024-09-24 15:49 | XMS_ITS | Encounter Summary ---
Author Organization [employer] Address [address] [place] [address] 7 [place] [address] Care Team Providers Care Revenue Accountant Name Role Phone Name, Eddie GILMORE Primary Care Provider [phone] Reason for Visit * Reason Onset Date Comments Medication Question 09/05/2023 Encounter Details Date Type Department Care Team ([facility] st Contact Info) Description 09/05/2023 Telephone [facility] MEDICINE [address] [place], [place] [phone] Name, MD Eddie [address] [place] [address] Medication Question Social History Tobacco Use Types [...] Description 10/29/2024 2:30 PM EDT Office Visit [facility] MED[facility]INE [address] [place] [address] Name, MD Eddie [address] [place] [address] 11/12/2024 9:45 AM EDT Office Visit [facility] [address] [place] [address] documented as of this encounter Visit Diagnoses Not on filedocumented in this encounter Additional Health Concerns Assessment Noted Time PHQ-9 Depression Total Score: 10 11/28/ 023 1:16 PM EDT documented as of this encounter Care Teams Revenue Accountant Relationship Specialty Start Date End Date Name, MD Eddie [address] [facility] [place] [address] PCP - General Family Medicine 09/16/15 [place] SEN 07/01/24 documented as of this encounter
--- OUTSIDE RECORDS SUMMARY | 2024-09-24 15:49 | XMS_ITS | Encounter Summary ---
Author Organization [employer] Address [address] [place] [address] 7t [place] [address] Care Team Providers Care Digital Marketing Project Manager Name Role Phone Name, Eddie GILMORE Primary Care Provider [phone] Encounter Details Date Type Department Care Team (Late st Contact Info) Description 09/20/2024 Orders Only [facility] External Provider, [facility] Social History Tobacco Use Types Packs/Day [...] Description 10/29/2024 2:30 PM EDT Office Visit [facility] [address] [place] [address] Name, MD Eddie [address] [place] [address] 11/12/2024 9:45 AM EDT Office Visit [address] [address] documented as of this encounter Procedures Procedure Name Priority Date/Time Associated Diagnosis Comments XR CHEST 2 VIEWS Routine 09/20/2024 10:1 2 AM EDT documented in this encounter Results * XR Chest 2 Views (09/20/2024 10:12 AM EDT) Anatomical Region Laterality Modality Chest Radiographic Tanya ging 09/20/2024 10:1 2 AM EDT Narrative 09/20/2024 10:27 AM EDT ? [facility] ?[address] ?[place] [address] ?XRay Report ? Signed ? Patient: Jenniffer,Celeste ?MR#: [id number] ?? 4 ? : 1945 ?Acct:[id number] ? Age/Sex: 78 / F ?ADM Date: 04/04/25 ? Loc: HO.XRAY ? Attending Dr: Maria Esther Blum GRIP BOSS ? Ordering Physician: Maria Esther Blum NP ?? Date of Service: 09/20/24 ?? Procedure(s): XR chest 2V ?? Accession Number(s): [id number] ? cc: Name,Eddie GILMORE; Maria Esther Blum [...] DD/ 1012 ? TD/TT: 09/20/24 1017 ? Hardware Developer: ? Procedure Note Sahil Tellez - 09/20/2024 [place] [address] XRay Report Signed Patient: Celeste AbadMR#: [id number] 4 : 1945cct:[id number] Age/Sex: 78 / FADM Date: 09/20/24 Loc: [facility] Attending Dr: Maria Esther Blum NP Ordering Physician: Maria Esther Blum NP Date of Service: 09/20/24 Procedure(s): XR chest 2V Accession Number(s): [id number] cc: Eddie Marshall MD; Maria Esther Blum [...] 09/20/24 1024 DD/ 1012 TD/TT: 09/20/24 1017 Hardware Developer: [facility] External Provider IMG XR PROCEDURES Final Result documented in this encounter Visit Diagnoses Not on filedocumented in this encounter Additional Health Concerns Assessment Noted Time PHQ-9 Depression Total Score: 9 05/10/20 24 11:56 AM EST documented as of this encounter Care Teams Digital Marketing Project Manager Relationship Specialty Start Date End Date Name, MD Eddie [address] [place] [address] PCP - General Family Medicine 09/16/15 [place] MCKINLEY 07/01/24 documented as of this encounter
--- OUTSIDE RECORDS SUMMARY | 2024-09-24 15:49 | XMS_ITS | Encounter Summary ---
Author Organization [employer] Address [address] [place] [address] 7 [place] [address] Care Team Providers Care Geriatric Physician Name Role Phone Name, Eddie GILMORE Primary Care Provider Reason for Visit * Reason Onset Date Comments Call Back Request 09/19/2024 Encounter Details Date Type Department Care Team ([facility] st Contact Info) Description 09/19/2024 Telephone [facility] 230 [place] [address] Name, MD Eddie [address] [place], [place] [phone] Call Back Request Social History Tobacco Use [...] Telephone Encounter - Jess Ring RN - 09/24/2024 9:50 AM EDT Tc to Neurology discussed with the billing department who reports pt insurance was the one who denied to cover that ov due to no referral. Billing department reports referral is supposed to be sent to [place] so that they can approve it. Per family support specialist Good morning, I submitted a prior authorization form. Theres a authorization starting on July. Due to it being passed 90 days I had to submit the form and wait to see if they approve it. Thank you. Discussed with PA specialist thatthe insurance website was not working and PA had to be done on paper form which was completed yesterday. Explained to pt the a PA was done and back dated to March to their insurance and pending approval. Informed pt there has been another PA placed starting in July of this year bur pt states they would rather wait to have the first bill cleared before they start seeing their neurologist again. Pt reports who will be fish fling the neuro medications and informed pt that should be done by the neurologist or whoever the ordering provider. Pt expressed understanding and no further questions or concerns at this time. * Telephone Encounter - Jess Ring RN [...] to Dr. Medina neurologyoffice to discuss further. Pier Master reports pt had their last appt on March 25 of last year and it looks like they did not have a referral at that time. Advised the office coordinator receptionist a referral wassent out on our end on 02/05/24 and office coordinator receptionist reports they most likely never received. They report we can discuss further with Phyllis who is apart of the billing apartment but they are not here today. Phyllis will be at their office on Monday, Monday and . Message forwarded to team nurse box to follow up with the billing department on Monday. Message forwarded to family support specialist jarek ROLAND. * Telephone Encounter - Will Badillo - 09/19/2024 10:10 AM EDT Tc from pt requesting a call back regarding referral for Neurology. Contact pt at [phone] documented in this encounter Plan of Treatment Upcoming Encounters Date Type Department Care Team (Late st Contact Info) Description 10/29/2024 2:30 PM EDT Office Visit [facility] [address] [place] [address] Name, MD Eddie [address] [place] [address] 11/12/2024 9:45 AM EDT Office Visit [facility] [address] [place] [address] documented as of this encounter Visit Diagnoses Not on filedocumented in this encounter Additional Health Concerns Assessment Noted Time PHQ-9 Depression Total Score: 9 05/10/20 24 11:56 AM EST documented as of this encounter Care Teams Geriatric Physician Relationship Specialty Start Date End Date Name, MD Eddie [address] [place] [address] PCP - General Family Medicine 09/16/15 [place] SEN 07/01/24 documented as of this encounter
--- OUTSIDE RECORDS SUMMARY | 2024-09-24 15:49 | XMS_ITS | Encounter Summary ---
Author Organization [employer] Address [address] [place] [address] [place] [address] Care Team Providers Care Mobile Service Rv Technician Name Role Phone Name, Eddie GILMORE Primary Care Provider [phone] Reason for Visit * Reason Comments Med Refill Encounter Details Date Type Department Care Team (Late st Contact Info) Description 01/29/2023 Refill [facility] [address] [place] [address] [phone] Farhana Singh FNP [address] [place] [address] [place] [address] Social History Tobacco Use Types Packs/Day Years [...] Description 10/29/2024 2:30 PM EDT Office Visit [facility] [address] [place] [address] [phone] Name, MD Eddie [address] [place] [address] [phone] 11/12/2024 9:45 AM EDT Office Visit [facility] [address] [facility] [facility] [place] [address] documented as of this encounter Visit Diagnoses Not on filedocumented in this encounter Additional Health Concerns Assessment Noted Time PHQ-9 Depression Total Score: 10 11/28/ 023 1:16 PM EDT documented as of this encounter Care Teams Mobile Service Rv Technician Relationship Specialty Start Date End Date Name, MD Eddie [address] [facility] [place] [address] PCP - General Family Medicine 09/16/15 [facility] 07/01/24 documented as of this encounter
--- OUTSIDE RECORDS SUMMARY | 2024-09-24 15:50 | XMS_ITS | Encounter Summary ---
Author Organization [employer] Address [address] [place] [address] 7 [place] [address] Care Team Providers Care Child Care Attendant School Name Role Phone Name, Eddie GILMORE Primary Care Provider [phone] Reason for Visit * Reason Comments Med Refill Encounter Details Date Type Department Care Team (Late Contact Info) Description 01/04/2023 Refill [facility] [address] [place] [address] [phone] Name, MD Eddie [address] [place] [address] Gastroesophageal reflux disease, unspecified whether esophagitis present [...] EDT Office Visit [facility] [address] [facility] [place] [address] Name, [place] [address] 11/12/2024 9:45 AM EDT Office Visit [facility] [place] [address] documented as of this encounter Visit Diagnoses Diagnosis Gastroesophageal reflux disease, unspecified whether esophagitis present documented in this encounter Additional Health Concerns Assessment Noted Time PHQ-9 Depression Total Score: 10 023 1:16 PM EDT documented as of this encounter Care Teams Child Care Attendant School Relationship Specialty Start Date End Date Name, [place] [address] PCP - General Family Medicine 09/16/15 Jer[facility] 07/01/24 documented as of this encounter
== END 2024-09-24 15:51 | disposition home or self-care (01) ==
PROVIDERS: PCP Internal Medicine Geriatric Medicine; Visit Provider Nurse Practitioner Family
DX: Z01.811 Encounter for preprocedural respiratory examination (principal); J44.9 Chronic obstructive pulmonary disease, unspecified; J43.9 Emphysema, unspecified; Z87.891 Personal history of nicotine dependence; R91.8 Other nonspecific abnormal finding of lung field
CPT/HCPCS: 94618; 99214

== ENCOUNTER → 2024-09-24 13:02 | Outpatient (BNVA) | payer MEDICARE, SELFPAY | PROVIDERS: PCP Internal Medicine Geriatric Medicine; Visit Provider Nurse Practitioner Family | DX: Z01.811 Encounter for preprocedural respiratory examination (principal); J44.9 Chronic obstructive pulmonary disease, unspecified; J43.9 Emphysema, unspecified; R91.8 Other nonspecific abnormal finding of lung field; Z87.891 Personal history of nicotine dependence | CPT/HCPCS: 94618; 99212 ==

== ENCOUNTER 2024-09-26 11:56 | Emergency (ER) | payer MEDICARE, SELFPAY ==
[2024-09-26 12:05] VITALS: BP 130/58; PULSE 88; O2SAT 99
[2024-09-26 12:12] VITALS: PULSE 77; RESP 16; TEMP 36.6; O2SAT 95; BMI 25.2
[2024-09-26] MEDS: Oxymetazoline HCl 0.05 % Nasal 15 ML SPRAY 2 SPRAY NOSTRIL-B (13:00)
[2024-09-26] MEDS: Tranexamic Acid 1,000 MG/10 ML VIAL 500 MG INTRANASAL (13:01)
--- NOTE | 2024-09-26 13:42 | ED.GENADULT ---
HPI - General Adult General Chief complaint: Epistaxis Stated complaint: BLOODY NOSE,STILL BLEEDING/MODERATE PER EMS Time Seen by Provider: 09/26/24 12:30 Source: patient Mode of arrival: ambulatory Limitations: no limitations History of Present Illness HPI narrative: This is a 78yof with a pmhx HTN, HLD, DM, CAD s/p NICOLAS, CVA/TIA, seizure disorder, hypothryoidism, GERD who presents for evaluation of atraumatic epistaxis. She states that this started this morning after she was applying some ointment to her nares and the subsequently noted bleeding from her right naris. She states that she has had nosebleeds in the past. She reports that she has previously had it cauterized. She states no trauma or falls facial injury prior to epistaxis. She states no chest pain, dyspnea, lightheadedness, syncope, weakness or palpitations. She states taking medications. She states that she does take Plavix. Related Data Home Medications ?Medication ?Instructions ?Recorded ?Confirmed albuterol sulfate 90 mcg/actuation 2 puff inhalation Q4H PRN 09/30/20 09/24/24 aerosol inhaler Respiratory Distress latanoprost 0.005 % eye drops 1 drp ophthalmic (eye) BEDTIME 09/30/20 09/24/24 oxycodone-acetaminophen 5 mg-325 1 tab PO BID PRN Pain (Scale Score 09/30/20 09/24/24 mg tablet 7-10) magnesium 250 mg tablet 500 mg PO DAILY 02/24/21 09/24/24 milk thistle 500 mg capsule 500 mg PO BID 02/24/21 09/24/24 levothyroxine 112 mcg tablet 112 mcg PO DAILY 03/16/22 09/24/24 metformin 500 mg tablet 500 mg PO BID 03/16/22 09/24/24 biotin 5 mg capsule 5 mg PO DAILY 05/04/22 09/11/24 atorvastatin 40 mg tablet 40 mg PO DAILY 06/16/22 09/24/24 mirabegron 50 mg tablet,extended 50 mg PO DAILY 06/16/22 09/24/24 release 24 hr (Myrbetriq) betamethasone valerate 0.1 % 1 appl topical DAILY 11/19/22 09/11/24 topical cream levetiracetam 750 mg tablet 750 mg PO BID 11/19/22 09/24/24 (Keppra) peg 400-propylene glycol (PF) 0.4 1 drp ophthalmic (eye) BID 11/19/22 09/24/24 %-0.3 % eye drops in a dropperette (Systane (PF)) simethicone 125 mg chewable tablet 125 mg PO TID PRN GAS/BLOATING 11/19/22 09/24/24 trospium 60 mg capsule,extended 60 mg PO DAILY 01/29/24 09/24/24 release 24 hr ferrous sulfate 325 mg (65 mg 325 mg PO DAILY 08/26/24 09/24/24 iron) tablet (Iron (ferrous sulfate)) wheat dextrin 3 gram/4 gram oral 1.5 g PO BID 09/02/24 09/24/24 powder packet (Benefiber Sugar Free (dextrin)) melatonin 5 mg tablet 10 mg PO .hs 09/24/24 09/24/24 Previous Rx's ?Medication ?Instructions ?Recorded clopidogrel 75 mg tablet 75 mg PO DAILY #90 tabs 12/08/23 lidocaine HCl 2 % topical cream 1 appl topical .at bedtime 4 weeks 02/20/24 #118 mL amlodipine 2.5 mg tablet 2.5 mg PO DAILY 90 days #90 tabs 03/28/24 pantoprazole 40 mg tablet,delayed 40 mg PO BID #60 tabs 05/29/24 release sucralfate 100 mg/mL oral 10 ml PO BID #600 mL 09/08/24 suspension docusate sodium 100 mg capsule 100 mg PO DAILY #90 caps 09/17/24 (Colace) fluticasone propionate 230 2 puff inhalation Q12H #12 grams 09/24/24 mcg-salmeterol 21 mcg/actuation HFA inhaler (Advair HFA) Allergies Allergy/AdvReac Type Severity Reaction Status Date / Time scallops Allergy Unknown Unknown Verified 09/26/24 12:14 Review of Systems Review of Systems: ROS as per HPI [facility] Past Medical History Medical History (Updated 09/26/24 @ 15:14 by El Null MD) Paraesophageal hernia Osteoporosis Lower GI bleed Rectal bleed Anemia Stable angina Essential hypertension CVA (cerebral vascular accident) CAD (coronary artery disease) Surgical History Status post cardiac catheterization History of cardiac cath History of adenoidectomy Hx of tonsillectomy Hx of hernia repair History of section History of cholecystectomy History of appendectomy Family History Family History Mother Cancer Father Heart attack Social History Social History Household Members: Children Housing: House Do you presently have visiting nurse or other home services: Yes Unable to assess alcohol history related to: Unknown Alcohol intake: never Patient Tobacco Use Status: Former Tobacco user Years Smoked: 30 +/- Smoked in Last 30 Days: No e-Cigarette/Vaping Use: Never Used Second Hand Smoke Exposure: No Use of substances other than those prescribed or required for medical reasons: Unknown Substance Use Type: IV Drugs Advance Directives: Yes Advance Directives Information Provided: Yes Advance Directives on File: No service: No Current occupational status: retired Current occupation: right hand dominant Physical Exam ED Vital Signs: Vital Signs - 24 hr 09/26/24 12:12 09/26/24 14:18 Temperature 98 F 98.1 F Pulse Rate 77 89 Respiratory Rate 16 20 Blood Pressure 122/58 L Pulse Oximetry 95 95 Oxygen Delivery Method Room Air Room Air BMI result Body Mass Index 25.2 Gen: NAD, AOx3 HEENT: NCAT, EOMI, normal conjunctiva, +right naris epistaxis, no nasal mucosa pink/moist without epistaxis, posterior oropharynx with red blood CV: RRR Pulm: CTAB, no increased work of breathing GI: Soft, NTND, no rebound, guarding or rigidity Neuro: Grossly non focal Medications Administered Discontinued Medications Generic Name Dose Route Start Last Admin Trade Name Freq PRN Reason Stop Dose Admin Oxymetazoline HCl 2 spray 09/26/24 12:30 09/26/24 13:00 Oxymetazoline Hcl 0.05 % Nasal 15 Ml [place] NOSTRIL-B 09/26/24 12:31 2 spray ONCE ONE Administration Silver Nitrate 1 appl 09/26/24 13:47 09/26/24 14:48 Silver Nitrate Applicator Stick..Ea. TOPICAL 09/26/24 13:48 1 appl ONCE ONE Administration Tranexamic Acid 500 mg 09/26/24 12:30 09/26/24 13:01 Tranexamic Acid 1,000 Mg/10 Ml Vial INTRANASAL 09/26/24 12:31 500 mg ONCE ONE Administration Medical Decision Making Medical Decision Making MDM Narrative: Patient examined with light and nasal speculum. Clots cleared by patient blowing and using wall suction. Topical Oxymetazoline instilled in bilateral nares. Right naris packed with 5.5cm anterior nasal packing soaked with 5cc of tranexamic acid (500mg) and 10cc of air. After 30 minutes, the packing was removed. The nasal mucosa was clear. Bleeding site was identified on the anterior nasal septum of the right naris and cauterized with silver nitrate. Patient was observed for 10 minutes and had recurrence of epistaxis. Right naris packed with 5.5cm anterior nasal packing soaked with 5cc of tranexamic acid (500mg) and 10cc of air. After 30 minutes on re-examination, there was no visible active bleeding. he posterior pharynx showed dried blood, which cleared after patient gargled with water. On discharge, there was no active bleeding. Patient was given educational materials. Patient was given verbal and written instructions. Teach back was performed. Patient was given strict return precautions to return to the ED for any new or worsening symptoms including, but not limited to recurrence of epistaxis, lightheadedness, loss of consciousness, chest pain or dyspnea. Patient was advised to follow up with their primary care provider and ENT within the next 5-7 days. She and son were recommended to come back to the ER or an urgent care for nasal packing removal in 48-72 hours. They were made aware of risk of infection should there be delay in nasal packing removal. Patient and son stated understanding the plan of care and stated their agreement with it. Patient was discharged home in stable and improved condition. Admission/Observation Consideration of admission/observation: Escalation of care including admission/observation considered Discharge Plan Discharge Clinical Impression: Acute anterior epistaxis Patient Disposition: Home, Self-Care Instructions: Nosebleed (ED) Additional Instructions: You were evaluated in the emergency room for a nose bleed. Follow up with your primary care doctor and ENT in the next 5-7 days. Please return to the emergency room for removal of your nasal packing in 48-72 hours on the morning of Saturday September 28, 2024 or Sunday September 29, 2024. Return to the emergency room otherwise for any new concerns or symptoms. Prescriptions: No Action clopidogrel 75 mg tablet 75 mg PO DAILY Qty: 90 3RF lidocaine HCl 2 % cream 1 appl topical .at bedtime 28 Days Qty: 118 0RF amlodipine 2.5 mg tablet 2.5 mg PO DAILY 90 Days Qty: 90 3RF pantoprazole 40 mg tablet,delayed release (DR/EC) 40 mg PO BID Qty: 60 3RF Rx Instructions: Please discontinue the once daily dosing and replace with this new script. sucralfate 100 mg/mL suspension 10 ml PO BID Qty: 600 2RF docusate sodium [Colace] 100 mg capsule 100 mg PO DAILY Qty: 90 0RF betamethasone valerate 0.1 % Cream 1 appl TOPICAL DAILY levetiracetam [Keppra] 750 mg Tablet 750 mg PO BID Systane (PF) 0.4-0.3 % Dropperette 1 drp OPHTHALMIC (EYE) BID simethicone 125 mg Tablet,Chewable 125 mg PO TID PRN (Reason: GAS/BLOATING) oxycodone-acetaminophen 5-325 mg tablet 1 tab PO BID PRN (Reason: Pain (Scale Score 7-10)) latanoprost 0.005 % drops 1 drp ophthalmic (eye) BEDTIME albuterol sulfate 90 mcg/actuation HFA aerosol inhaler 2 puff inhalation Q4H PRN (Reason: Respiratory Distress) metformin 500 mg tablet 500 mg PO BID magnesium 250 mg tablet 500 mg PO DAILY milk thistle 500 mg capsule 500 mg PO BID Rx Instructions: give with meal/snack atorvastatin 40 mg tablet 40 mg PO DAILY Myrbetriq 50 mg tablet extended release 24 hr 50 mg PO DAILY levothyroxine 112 mcg tablet 112 mcg PO DAILY biotin 5 mg capsule 5 mg PO DAILY fluticasone propion-salmeterol [Advair HFA] 230-21 mcg/actuation HFA aerosol inhaler 2 puff inhalation Q12H Qty: 12 3RF trospium 60 mg capsule,extended release 24hr 60 mg PO DAILY melatonin 5 mg tablet 10 mg PO .hs ferrous sulfate [Iron (ferrous sulfate)] 325 mg (65 mg iron) tablet 325 mg PO DAILY Benefiber Sugar Free (dextrin) 3 gram/4 gram powder in packet 1.5 g PO BID Rx Instructions: mix into at least 4 oz water or juice before administering Print Language: Marshallese
[2024-09-26 14:18] VITALS: BP 122/58; PULSE 89; RESP 20; TEMP 36.7; O2SAT 95
[2024-09-26] MEDS: Silver Nitrate Applicator STICK..EA. 1 APPL TOPICAL (14:48)
[2024-09-26 15:23] VITALS: BP 122/58; PULSE 89; RESP 20; TEMP 36.7; O2SAT 95
--- OUTSIDE RECORDS SUMMARY | 2024-09-26 15:48 | XMS_ITS | Encounter Summary ---
Author Organization [employer] Address [address] [facility] 7t [place] [address] Care Team Providers Care Petroleum Products District Supervisor Name Role Phone Name, Eddie GILMORE Primary Care Provider [phone] Reason for Visit * Reason Onset Date Comments DME Transport Chair 09/24/2024 Encounter Details Date Type Department Care Team (Late st Contact Info) Description 09/24/2024 Telephone [facility] [address] [place], [place] [phone] Name, MD Eddie [address] [place] [address] DME Transport Chair Social History Tobacco Use Types Packs/Day Years [...] Telephone Encounter - Kathy Nina MA - 09/26/2024 9:04 AM EDT DME for transport chair signed and faxed to [facility] . Confirmation received and sent to scan. If patient calls to check status on above, please advise them to contact [facility] at [phone]. * Telephone Encounter - Kathy Nina MA - 09/24/2024 9:30 AM EDT DME for transport chair from [employer] received and is being processed. Placed on provider's desk for signature. documented in this encounter Plan of Treatment Upcoming Encounters Date Type Department Care Team (Late st Contact Info) Description 10/29/2024 2:30 PM EDT Office Visit [facility] [address] [place] [phone] Name, MD Eddie [address] [place] [phone] 11/12/2024 9:45 AM EDT Office Visit [facility] [address] [place] [phone] documented as of this encounter Visit Diagnoses Not on filedocumented in this encounter Additional Health Concerns Assessment Noted Time PHQ-9 Depression Total Score: 9 05/10/20 24 11:56 AM EST documented as of this encounter Care Teams Petroleum Products District Supervisor Relationship Specialty Start Date End Date Name, MD Eddie [address] [place] [address] PCP - General Family Medicine 09/16/15 Jerica [facility] 07/01/24 documented as of this encounter
--- OUTSIDE RECORDS SUMMARY | 2024-09-26 15:48 | XMS_ITS | Encounter Summary ---
Author Organization [employer] Address [address] [place] [address] [place] [address] Care Team Providers Care Cytotechnologist Supervisor Name Role Phone Name, Eddie GILMORE Primary Care Provider [phone] Reason for Visit * Reason Onset Date Comments Hospital Follow-up 11/10/2022 Encounter Details Date Type Department Care Team (Late st Contact Info) Description 11/10/2022 Refill [facility] [address] [place], [place] [phone] Name, MD Eddie [address] [place] [address] Social History Tobacco Use Types Packs/Day Years [...] Jackman Sent: 11/21/2022 5:23 PM EDT To: [facility] Team Nurses Hi team! Sent this pt to the ED over the weekend for Hgb 7. Got admitted and looks like recently discharged. Can you please outreach her for status check and sched HDF w/ Name? Thank you!! * Telephone Encounter - Suzette Singh RN - 11/22/2022 11:10 AM EDT T/C to [phone] to schedule HDF apt. No answer. LVM to call back on [phone]. ----- Message from Amber Roger RN sent at 11/22/2022 9:06 AM EDT ----- ----- Message ----- From: DENIS Jackman Sent: 11/21/2022 5:23 PM EDT To: [facility] Team Nurses [place] team! Sent this pt to the ED [...] Visit [facility] [address] [place] [phone] Eddie Marshall MD [address] [place] [phone] 11/12/2024 9:45 AM EDT Office Visit [address] [address] documented as of this encounter Visit Diagnoses Not on filedocumented in this encounter Care Teams Cytotechnologist Supervisor Relationship Specialty Start Date End Date Eddie Marshall MD [address] [place] [phone] PCP - General Family Medicine 09/16/15 Jerica [facility] 07/01/24 documented as of this encounter
--- OUTSIDE RECORDS SUMMARY | 2024-09-26 15:48 | XMS_ITS | Encounter Summary ---
Author Organization [facility] [employer] Address [address] [place] [address] 7 [place] [address] Care Team Providers Care Product Development Coordinator Name Role Phone Name, Eddie GILMORE Primary Care Provider [phone] Encounter Details Date Type Department Care Team ([facility] Contact Info) Description 11/18/2022 Abstract [facility] [address] [place] [address] [phone] Name, MD Eddie [address] [place] [address] [phone] Social History Tobacco Use Types Packs/Day Years [...] Upcoming Encounters Date Type Department Care Team ([facility] Contact Info) Description 10/29/2024 2:30 PM EDT Office Visit [facility] [address] [place] [phone] Name, MD Eddie [address] [place] [address] [phone] 11/12/2024 9:45 AM EDT Office Visit [facility] [address] [place] [address] documented as of this encounter Visit Diagnoses Not on filedocumented in this encounter Care Teams Product Development Coordinator Relationship Specialty Start Date End Date Name, MD Eddie [address] [place] [address] PCP - General Family Medicine 09/16/15 [facility] 07/01/24 documented as of this encounter
--- OUTSIDE RECORDS SUMMARY | 2024-09-26 15:48 | XMS_ITS | Clinical Summary ---
Author Organization [employer] Address [address] [place] [address] [address] [place] [address] Care Team Providers Care Supply Chain Director Name Role Phone Name, Eddie GILMORE Primary Care Provider [phone] Allergies Active Allergy Reactions Criticality Noted Date [...] 06/01/20 22 Active Blood Glucose Monitoring Suppl ([employer] Verio Flex System) w/Device kit USE DIRECTED [...] in the morning. 01/10/20 23 Active Lancets ([employer] Delica Plus [id number]) miscIndications :Controlled type 2 diabetes mellitus with complication, without long-term current use of insulin ([facility]) USE TO CHECK BLOOD SUGAR TWICE A DAY 100 each 5 09/15/19 24 Active glucose blood ([employer] Verio) test stripIndication s:Controlled type 2 diabetes mellitus with complication, without long-term current use of insulin ([facility]) CHECK BY FINGERSTICK TWICE DAILY [...] refer stat to ENT for cauterization, possible DYE RANGE OPERATOR CLOTH scope Recommend anterior nasal packing if she is bleeding heavily care home (current) use of opiate analgesic 03/20 Overview (09/10/2024): Dx: chronic pain syndrome/back pain Rx: Percocet 5/325 every 8 hours 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 She understands this is the [...] Encounters Date Type Department Care Team Description 09/26/[address] [address] Eddie Marshall MD Durable Medical Equipment 09/24/[address] [address] Eddie Marshall MD Durable Medical Equipment (Hip protectors) 09/24/2024 Telephone [facility] [address] [place] [address] Eddie Marshall MD DME Transport Chair 09/20/2024 Orders Only [facility] External Provider, [facility] 09/19/[address] [address] Eddie Marshall MD Call Back Request 09/15/[address] [address] Eddie Marshall MD 09/11/[address] [address] Eddie Marshall MD Durable Medical Equipment 09/10/2024 9:45 AM EDT Office Visit [address] [address] Mckenzie Trent FNP Chronic pain syndrome (Primary Dx); rn long term care (current) use of opiate analgesic 09/10/2024 Travel 09/09/2024 Telephone [facility] [place] [address] Eddie Marshall MD 09/05/2024 Refill [facility] [place] [address] Eddie Marshall MD Chronic pain syndrome 08/27/2024 Orders Only GENERIC EXTERNAL DATA DEPARTMENT Provider, Generic External Data 08/26/2024 Orders Only [facility] External Provider, [facility] 08/19/2024 Refill [facility] [place] [address] Eddie Marshall MD 08/14/2024 Orders Only GENERIC EXTERNAL DATA DEPARTMENT Provider, Generic External Data 08/13/2024 Telephone [facility] [place] [address] Eddie Marshall MD Appointment Request 08/09/[address] [address] Sophie Marie [place] september recalls 08/09/[address] [address] Sophie Marie [place] september recalls 08/09/2024 Refill [facility] [place] [address] Eddie Marshall MD Chronic pain syndrome 08/02/2024 2:30 PM EST Office Visit [address] [address] Latanya Hoover MD Epistaxis (Primary Dx); Controlled type 2 diabetes mellitus with complication, without long-term current use of insulin ([facility]); Dietary counseling; Exercise counseling; Overweight; Anemia, unspecified type 08/02/2024 Travel 07/30/2024 Telephone [facility] [place] [address] Eddie Marshall MD ER Follow-up 07/23/2024 9:00 AM EST Office Visit [address] [address] Kelly Montoya MD Chronic pain syndrome (Primary Dx) 07/23/2024 Travel 07/17/2024 Refill [facility] [address] [place] [address] NameEddie MD 07/16/2024 9:45 AM EST Office Visit [facility] [address] [place] [address] Mckenzie Trent, DERMATOPATHOLOGIST Chronic pain syndrome (Primary Dx); care home (current) use of opiate analgesic 07/16/2024 9:15 AM EST Office Visit [facility] [address] [place] [address] Kelly Montoya MD Chronic pain syndrome (Primary Dx) 07/16/2024 Orders Only [facility] External Provider, [facility] 07/16/2024 Travel 07/12/2024 Refill [facility] [address] [place] [address] Name, MD Eddie 07/12/2024 Refill [facility] [address] [place] [phone] Eddie Marshall MD Chronic pain syndrome 07/02/2024 Telephone [facility] [address] [place] [address] [phone] NameEddie MD from Last 3 Months Immunizations Name Administration Dates Next Due Influenza injectable quadriv alent IIV4 with preservative 04/07/2016 Influenza, IIV3, injectable 03/23/2015,1 ,03/08/2013,04/06,05/01/2008,04/19/2007,05/10/2006 ,03/15/2005 Novel [id number], preservative-free 05/22/2009 Pneumococcal Polysaccharide PPSV23 07/11/2013, TD [...] Office Visit [facility] [address] [place] [address] Name, [place] [address] 11/12/2024 9:45 AM EDT Office Visit [facility] [address] [place] [address] Health Maintenance Due Date Last Done Comments Zoster Vaccines (1 of 2) 1996 Pneumococcal Vaccine: 50+ Years (2 of 2 - PCV) 07/11/2014 07/11/2013, 03/02/2005 DTaP/Tdap/Td Vaccines (1 - Tdap) 03/25/2017 03/24/2017, 03/31/2003 RSV Patients and Patients Aged 60 years or older (1 - 1-dose 75+ series) 2021 COVID-19 Vaccine ( season) 2024 Influenza Vaccine (#1) 2024 6, 03/23/2015, 03/27/2014, Additional history exists Diabetes: Foot Exam 10/16/2024 10/17/2023, 10/17/2023, 10/17/2023, Additional history exists Depression Monitoring 11/07/2024 05/10/2024, 024 Diabetes: Urine Protein Screening 01/15/2025 01/16/2024, 09/14/2022 [...] 09/10/2024 1:29 PM EDT Chronic pain syndrome care home (current) use of opiate analgesic CT CHEST [...] DRUG SCREEN Routine 07/16/2024 1:49 PM EST care home (current) use of opiate analgesic LIPID PANEL, [...] ? [facility] ?[address] ?[place] [address] ?XRay Report ? Signed ? Patient: Celeste Abad ?MR#: [id number] ?? 4 ? : 1945 ?Acct:[id number] ? Age/Sex: 78 / F ?ADM Date: 09/20/24 ? Loc: HO.XRAY ? Attending Dr: Maria Esther Blum DYE RANGE OPERATOR CLOTH ? Ordering Physician: Maria Esther Blum NP ?? Date of Service: 09/20/24 ?? Procedure(s): XR chest 2V ?? Accession Number(s): [id number] ? cc: Name,Eddie GILMORE; Maria Esther Blum [...] signed by Bucky Downing MD in OV> ?// 1024 ? DD/DT: // 1012 ? TD/TT: // 1017 ? Snap Shearer: ? Procedure Note Donotuseinterpreter, Image - 09/20/[address] [address] XRay Report Signed Patient: Celeste AbadMR#: [id number] 4 : 7Acct:[id number] Age/Sex: 78 / FADM Date: 09/20/24 Loc: HO.LETTY Attending Dr: Maria Esther Blum NP Ordering Physician: Maria Esther Blum NP Date of Service: 09/20/24 Procedure(s): XR chest 2V Accession Number(s): [id number] cc: Joanna,Eddie GILMORE; Maria Esther Blum NP EXAMINATION: XR [...] 09/20/24 1024 DD/ 1012 TD/TT: 09/20/24 1017 Snap Shearer: [facility] External Provider IMG XR PROCEDURES Final Result [...] Suarez [place] - 09/10/2024 1:30 PM EDT Lot:[id number] Exp: 02/06/2028 Mckenzie Trent DERMATOPATHOLOGIST POINT OF CARE TEST ENTER/EDIT ORDERABLES Final Result * CT Chest w/o Contrast (08/27/2024 2:12 PM EDT) Anatomical Region Laterality Modality Body, Chest Computed Tomogra phy 08/27/2024 2:12 PM EDT Narrative 08/27/2024 2:14 PM EDT ? [facility] ?[address] ?[place] [address] ? CT Scan Report ? Signed ? Patient: Celeste Abad ?MR#: [id number] ?? 4 ? : 1945 ?Acct:[id number] ? Age/Sex: 78 / F ?ADM Date: 08/26/24 ? Loc: HO.CT ? Attending Dr: Maria Esther Blum DYE RANGE OPERATOR CLOTH ? Ordering Physician: Maria Esther Blum NP ?? Date of Service: 08/26/24 ?? Procedure(s): CT chest wo IV con ?? Accession Number(s): [id number] ? cc: Eddie Marshall MD; Maria Esther Blum NP ? Report Number: ?? [id number]: Total DLP = ??208.00 mGy-cm ? CLINICAL [...] DD/ 1412 ? TD/TT: 08/27/24 1412 ? Snap Shearer: ? Procedure Note Donjose ramonter, Image - 08/27/[address] [place] [address] [address] Scan Report Signed Patient: Ventura Abad#: [id number] 4 : 7Acct:[id number] Age/Sex: 78 / FADM Date: 08/26/24 Loc: HO.CT Attending Dr: Maria Esther Blum NP Ordering Physician: Maria Esther Blum NP Date of Service: 08/26/24 Procedure(s): CT chest wo IV con Accession Number(s): [id number] cc: Eddie Marshall MD; Maria Esther Blum NP Report Number: [id number]: Total DLP = 208.00 mGy-cm CLINICAL HISTORY: [...] by German Riley MD in OV> 08/27/24 141 DD/ 141 TD/TT: 08/27/24 141 Snap Shearer: [facility] External Provider IMG CT PROCEDURES Final Result * (ABNORMAL) Iron And Total Iron Binding Capacity (08/27/2024 1:25 PM EDT) Pathologist [facility] Iron 14(L) 30 - 160 mcg/dL [facility] Total Iron Binding Capacity 295 228 - 428 mcg/dL [facility] Percent Iron Saturation 5(L) 15 - 50 % [facility] Unsaturated Iron Binding 281 ug/dL [facility] 08/27/2024 1:25 PM EDT 08/27/2024 1:25 PM EDT us Generic External Data Provider LAB BLOOD ORDERAB LES Final Result [facility] [address] [place] [address] [phone] * (ABNORMAL) CBC (08/27/2024 1:25 PM EDT) [facility] White Blood Count 9.0 4.8 - 10.8 X10*3/uL [facility] Red Blood Count 4.06(L) 4.20 - 5.50 X10*6/uL [facility] Hemoglobin 10.0(L) 12.0 - 16.0 g/dl [facility] Hematocrit 33.1(L) 37.0 - 47.0 % [facility] Mean Corpuscular Volume 81.5 80.0 - 98.0 fL [facility] Mean Corpuscular Hemoglobin 24.6(L) 27.0 - 33.0 pg [facility] Mean Corpuscular HGB Conc 30.2(L) 31.0 - 35.0 g/dl [facility] Red Cell Distribution Width 16.3(H) 11.0 - 16.0 % [facility] Platelet Count 393 160 - 400 X10*3/uL [facility] Mean Platelet Volume 9.4 9.4 - 12.3 fL [facility] NRBC Pct Auto 0.0 0.0 - 0.2 /100WBC [facility] NRBC Abs Auto 0.000 0.0 - 0.012 X10*3/uL [facility] 08/27/2024 1:25 PM EDT 08/27/2024 1:25 PM EDT us Generic External Data Provider LAB BLOOD ORDERAB LES Final Result Performing Organization Address [facility] Co de Phone Number [facility] [address] [place] [address] [phone] * Ferritin (08/27/2024 1:25 PM EDT) Ferritin 35 10 - 250 ng/mL [facility] 08/27/2024 1:25 PM EDT 08/27/2024 1:25 PM EDT Generic External Data Provider LAB BLOOD ORDERAB LES Final Result Performing Organization Address [facility] de Phone Number [facility] [address] [place] [address] [phone] * FL Esophagus Barium Swallow w/Air (08/14/2024 9:52 AM EST) Anatomical Region Laterality Modality Head, Neck Radiographic Tanya ging 08/14/2024 9:52 AM EST Narrative 08/15/2024 4:55 PM EST ? [facility] ?[address] ?[place] [address] ? Fluoroscopy Report ? Signed ? Patient: Celeste Abad ?MR#: [id number] ?? 4 ? : 1945 ?Acct:[id number] ? Age/Sex: 78 / F ?ADM Date: 08/14/24 ? Loc: HO.XRAY ? Attending Dr: Julia Li MD ? Ordering Physician: Julia Li MD ?? Date of Service: 08/14/24 ?? Procedure(s): FL barium swallow with air ?? Accession Number(s): [id number] ? cc: Name,Eddie GILMORE; Julia Li MD ? EXAMINATION: ?? [...] ??08/15/2024 04:52 PM EST RP ?? Workstation: [id number] ? Dictated By: ?Devon Delvalle ? Signed By: ?<Electronically signed by Devon Delvalle in OV> ? 08/15/242 ?<Electronically signed by Sagar Shore MD in OV> ? 08/15/24 1654 ? DD/ 0952 ? TD/TT: 08/14/24 1020 ? Snap Shearer: ? Procedure Note Donotuseinterpreter, Image - 08/15/2024 [place] [address] Fluoroscopy Report Signed Patient: Ventura Abad#: [id number] 4 : 7Acct:[id number] Age/Sex: 78 / FADM Date: 08/14/24 Loc: ALEJANDRO.LETTY Attending Dr: Julia Li MD Ordering Physician: Julia Li MD Date of Service: 08/14/24 Procedure(s): FL barium swallow with air Accession Number(s): [id number] cc: Eddie Marshall MD; Julia Li MD [...] 08/15/24 1654 DD/ 0952 TD/TT: 08/14/24 1020 Snap Shearer: [facility] External Provider IMG FLU OROSCOPY PROCEDURES Final Result * Immunofixation (ALEXANDER), Urine (08/14/2024 9:41 AM EST) ALEXANDER Interpretation SEE NOTE [facility] Comment:Normal pattern. No m onoclonal proteins detected.The supplier of the testing reagents for this assayhas changed. Detection of small monoclonal proteins mayvary by test system.THIS TEST WAS PERFORMED AT:[employer] [address] [id number] PAYNE MD 08/14/2024 9:41 AM EST 08/14/2024 10:39 AM EST us Generic External Data Provider LAB URINE ORDERAB LES Final Result [facility] [address] [place] [phone] * (ABNORMAL) Protein, Total and Protein??Electrophoresis (08/14/2024 9:37 AM EST) Prot Elec - Total Protein 6.7 6.1 - 8.1 g/dL [facility] Prot Elec - Albumin 3.2(A) 3.8 - 4.8 g/dL [facility] Prot Elec - Alpha1 0.4(A) 0.2 - 0.3 g/dL [facility] Prot Elec - Alpha2 1.1(A) 0.5 - 0.9 g/dL [facility] Prot Elec - Beta 1 0.5 0.4 - 0.6 g/dL [facility] Prot Elec - Beta 2 0.5 0.2 - 0.5 g/dL [facility] Prot Elec - Gamma 1.0 0.8 - 1.7 g/dL [facility] PES - Abn Protein Band 1 TNP [facility] PES-Abn Protein Band 2 [facility] PES-Abn Protein Band 3 [facility] Prot Elec - Interpretation SEE NOTE [facility] Comment:Evaluation is consis tent with an acute inflammatorypattern.THIS TEST WAS PERFORMED AT:[facility] [address] [phone]ALEXIS PAYNE MD 08/14/2024 9:37 AM EST 08/14/2024 9:41 AM EST us Generic External Data Provider LAB BLOOD ORDERAB LES Final Result Performing Organization Address City/[facility]/ZIP Co de Phone Number [facility] [address] [place] [phone] * (ABNORMAL) Phosphate (As Phosphorus) (08/14/2024 9:37 AM EST) Phosphorus 2.6(L) 2.7 - 4.5 mg/dL [facility] 08/14/2024 9:37 AM EST 08/14/2024 9:41 AM EST Generic External Data Provider LAB BLOOD ORDERAB LES Final Result Performing Organization Address [facility] Co de Phone Number [facility] [address] [place] [phone] * (ABNORMAL) POCT HGB A1C (08/02/2024 2:14 PM EST) Pathologist [facility] Hemoglobin A1C 6.2(A) 4.0 - 6.0 % QC Media Lot # [id number] Lot# Expiration Date Blood 08/02/2024 2:14 PM EST Result [facility] Latanya Hoover MD POINT OF CARE TEST ENTER/EDIT ORDERABLES Final Result * POCT Glucose (08/02/2024 2:14 PM EST) Pathologist [facility] Glucose Blood, POC 131 60 - 200 [...] EST Narrative 07/16/2024 7:07 PM EST ? [facility] ?[address] ?[place] [address] ?XRay Report ? Signed ? Patient: Jenniffer,Celeste ?MR#: [id number] ?? 4 ? : 1945 ?Acct:[id number] ? Age/Sex: 78 / F ?ADM Date: 07/16/24 ? Loc: HO.ED ? Attending Dr: ? Ordering Physician: Rhea Ken ?? Date of Service: 07/16/24 ?? Procedure(s): XR KUB ?? Accession Number(s): [id number] ? cc: Rhea Ken; Name,Eddie GILMORE ? [...] ? DD/ 06 ? TD/TT: 07/16/241906 ? Snap Shearer: ? Procedure Note Geoff, Image - 07/16/2024 [place] [address] XRay Report Signed Patient: Celeste AbadMR#: [id number] 4 : 1945cct:[id number] Age/Sex: 78 / FADM Date: 07/16/24 Loc: HO.ED Attending Dr: Ordering Physician: Rhea Ken Date of Service: 07/16/24 Procedure(s): XR KUB Accession Number(s): [id number] cc: Rhea Ken; Name,Eddie GILMORE CLINICAL HISTORY: [...] in OV> 07/16/241906 DD/ 06 TD/TT: 07/16/241906 Snap Shearer: [facility] External Provider IMG XR PROCEDURES Final Result * SARS-CoV-2 RNA, Influenza A/B, and RSV RNA, Ql NAAT (07/16/2024 7:06 PM EST) Influenza A PCR NEGATIVE Negative [facility] Influenza B PCR NEGATIVE Negative [facility] Resp Syncy Virus RNA Qual PCR NEGATIVE Negative [facility] SARS COV2 PCR NEGATIVE Negative [facility] Comment:All test results mus t [...] use by authorized laboratories.Testing performed on the [employer] GeneXpert utilizingreal-time RT-PCR.All SARS CoV2 and positive influenza A/B results arereported to [facility]. 07/16/2024 7:06 PM EST 07/16/2024 7:11 PM EST Generic External Data Provider LAB MICROBIOLOGY - GENERAL ORDERABLES Final Result [facility] [address] [place] [phone] * (ABNORMAL) CBC auto differential (07/16/2024 7:06 PM EST) White Blood Count 10.1 4.8 - 10.8 X10*3/uL [facility] Red Blood Count 4.68 4.20 - 5.50 X10*6/uL [facility] Hemoglobin 13.3 12.0 - 16.0 g/dl [facility] Hematocrit 40.7 37.0 - 47.0 % [facility] Mean Corpuscular Volume 87.0 80.0 - 98.0 fL [facility] Mean Corpuscular Hemoglobin 28.4 27.0 - 33.0 pg [facility] Mean Corpuscular HGB Conc 32.7 31.0 - 35.0 g/dl [facility] Red Cell Distribution Width 15.0 11.0 - 16.0 % [facility] Platelet Count 272 160 - 400 X10*3/uL [facility] Mean Platelet Volume 9.9 9.4 - 12.3 fL [facility] Neutrophils Percent Auto 74.5(H) 45 - 73 % [facility] Imm Gran Pct Auto 0.3 0.0 - 0.4 % [facility] Lymphocytes Percent Auto 16.3(L) 20 - 40 % [facility] Monocytes Percent Auto 8.0 2 - 11 % [facility] Eosinophils Percent Auto 0.7 0 - 4 % [facility] Basophils Percent Auto 0.2 0 - 2 % [facility] NRBC Pct Auto 0.0 0.0 - 0.2 /100WBC [facility] Neutrophils Absolute Auto 7.6 2.0 - 8.3 x10*3/uL [facility] Imm Gran Abs Auto 0.03 0.00 - 0.03 X10*3/uL [facility] Lymphocytes Absolute Auto 1.7 1.2 - 4.9 X10*3/uL [facility] Monocytes Absolute Auto 0.8 0.1 - 1.2 X10*3/uL [facility] Eosinophils Absolute Auto 0.1 0.0 - 0.4 X10*3/uL [facility] Basophils Absolute Auto 0.0 0.0 - 0.2 X10*3/uL [facility] NRBC Abs Auto 0.000 0.0 - 0.012 X10*3/uL [facility] 07/16/2024 7:06 PM EST 07/16/2024 7:11 PM EST us Generic External Data Provider LAB BLOOD ORDERAB LES Final Result Performing Organization Address [facility] Co de Phone Number [facility] [address] [place] [phone] * Magnesium (07/16/2024 7:06 PM EST) Magnesium 2.2 1.6 - 2.6 mg/dL [facility] 07/16/2024 7:06 PM EST 07/16/2024 7:11 PM EST us Generic External Data Provider LAB BLOOD ORDERAB LES Final Result Performing Organization Address [facility] Co de Phone Number [facility] [address] [place] [phone] * Lipase (07/16/2024 7:06 PM EST) Lipase 8 8 - 78 U/L [facility] 07/16/2024 7:06 PM EST 07/16/2024 7:11 PM EST us Generic External Data Provider LAB BLOOD ORDERAB LES Final Result Performing Organization Address [facility] Co de Phone Number [facility] [address] [place] [phone] * (ABNORMAL) Hepatic Function Panel (07/16/2024 7:06 PM EST) Bilirubin, Total 0.4 0.0 - 1.0 mg/dL [facility] Bilirubin, Direct 0.2 0.0 - 0.5 mg/dL [facility] Aspartate Amino Transferase 37(H) 5 - 31 U/L [facility] Alanine Aminotransferase 27 0 - 31 U/L [facility] Total Protein 7.5 6.5 - 8.0 g/dL [facility] Albumin Level 3.9 3.5 - 5.0 g/dL [facility] Alkaline Phosphatase 136(H) 39 - 117 U/L [facility] 07/16/2024 7:06 PM EST 07/16/2024 7:11 PM EST us Generic External Data Provider LAB BLOOD ORDERAB LES Final Result [facility] [address] [place] [phone] * (ABNORMAL) Basic Metabolic Panel (07/16/2024 7:06 PM EST) Sodium 139 135 - 145 mmol/L [facility] Potassium 4.3 3.3 - 5.1 mmol/L [facility] Chloride 102 96 - 108 mmol/L [facility] Carbon Dioxide 25 22 - 29 mmol/L [facility] Anion Gap 16 12 - 20 [facility] Urea Nitrogen (BUN) 18(H) 9 - 16 mg/dL [facility] Creatinine, Serum 0.73 0.5 - 1.4 mg/dL [facility] Creatinine Clr Calc Pharmacy 58.3 [facility] Comment:Provided height and weight: 157.48 cm,68.039 kg.eGFR (calculated from the MDRD study equation) and eCrCl(calculated from the Cockcroft-Gault equation) are based ondifferent parameters and may not yield comparable results.If eCrCl result is absurd, please check patient'sheight/weight. Estimated Glomerular Filt Rate >60 [facility] Comment:Chronic Kidney Disea se: Estimated GFR < 60 mL/min/1.72u1Wvhuno Kidney Disease: Estimated GFR < 15 mL/min/1.73m2 Glucose 124(H) 60 - 115 mg/dL [facility] Calcium 9.1 8.4 - 10.2 mg/dL [facility] 07/16/2024 7:06 PM EST 07/16/2024 7:11 PM EST us Generic External Data Provider LAB BLOOD ORDERAB LES Final Result Performing Organization Address City/[facility]/ZIP Co de Phone Number [facility] [address] [place] [phone] * (ABNORMAL) Lipid Panel, Standard (01/16/2024 9:40 AM EDT) Triglycerides 199(H) <150 mg/dL [facility] Comment:Desirable Triglyceri de: less than 150 mg/dLBorderline High Triglyceride 150-199 mg/dLHigh Triglyceride: 200-499 mg/dLVery High Triglyceride: greater than or equal to 5OO mg/dL Cholesterol 150 <200 mg/dL [facility] Comment:Desirable Cholestero l: less than 200 mg/dLBorderline High Cholesterol: 200-239 mg/dLHigh Cholesterol: greater than 239 mg/dL LDL Cholesterol Calculated 63 <100 mg/dL [facility] Comment:Desirable LDL: less than 100 mg/dLNear Optimal/Above Optimal LDL: 110- 129 mg/dLBorderline High LDL: 130-159 mg/dLHigh LDL: 160-189 mg/dLVery High LDL: greater than or equal to 190 mg/dL HDL Cholesterol 48 >40 mg/dL [facility] Comment:Desirable HDL: great er than 40 mg/dL Note: This HDL assay may give artificially low results in patients with liver disease. Blood Venous blood specimen / Unknown 01/16/2024 9:40 AM EDT 01/16/2024 11:20 AM EDT us Eddie Marshall MD LAB BLOOD ORDERABLES Final Resul t Performing Organization Address City/[facility]/ZIP Co de Phone Number [facility] [address] [place] [phone] * Albumin, Random Urine W/Creatinine (01/16/2024 9:35 AM EDT) Creatinine, Urine 27.62 mg/dL [facility] Microalbumin Urine <5.0 mg/L [facility] Microalbum Creatinine Ratio Ur TNP <30 ug/mg cr [facility] Comment:Unable to calculate albumin/creatinine ratio due to lowmicroalbumin or creatinine result. Urine (Urine, Random) 01/16/2024 9:35 AM EDT 01/16/2024 11:12 AM EDT us Eddie Marshall MD LAB URINE ORDERABLES Final Resul t [facility] [address] [place] [phone] * Hm Diabetes Eye Exam (05/16/2023) Eye Exam Normal Normal us Eddie Marshall MD HEALTH MAINTENANCE Final Result * (ABNORMAL) Hepatitis Panel, General (11/18/2022 2:07 PM EDT) Hepatitis A Antibody Total REACTIVE( A) NON-REACT NAHID [employer] Comment: For additional information, please refer to http://Flapshare.Superb/faq/KKS120 (This link is being provided for informational/ educational purposes only.) Hepatitis B Surface Antibody QL NON-REACT NAHID NON-REACT NAHID [facility] Hepatitis B Surface Ag NON-REACT NAHID NON-REACT NAHID [facility] Hepatitis B Core Antibody Total NON-REACT NAHID NON-REACT NAHID All [facility] Hepatitis C Antibody NON-REACT NAHID NON-REACT NAHID All Web Lead[facility] Index 0.07 <1.00 All [employer] Lead[employer] [place] [employer] Comment: HCV antibody was non-reactive. There is no laboratory evidence of HCV infection. In most cases, no further action is required. However, if recent HCV exposure is suspected, a test for HCV RNA (test code 98098) is suggested. For additional information please refer to http://Flapshare.Superb/faq/PUI16g7 (This link is being provided for informational/ educational purposes only.) 11/18/2022 2:07 PM EDT 11/18/2022 2:09 PM EDT Narrative [facility] - 11/19/2022 6:51 AM EDT COLLECTION KIT GIVEN TO PATIENT. PATIENT ADVISED TO RETURN. Mckenzie Pillai DERMATOPATHOLOGIST LAB BLOOD ORDERABLES Final Res ult [facility] [address], [place] [address] [employer] [facility] [place] [facility] [address] [place] [address] from Last 3 Months or Most Recently Relevant to Health Maintenance Insurance [place]ILBUR MANZ[place] [place] [id number] Care Teams Supply Chain Director Relationship Specialty Start Date End Date Name, MD Eddie 230 [place] [address] PCP - General Family Medicine 09/16/15 [facility] 07/01/24
--- OUTSIDE RECORDS SUMMARY | 2024-09-26 15:48 | XMS_ITS | Encounter Summary ---
Author Organization [employer] Address [address] [place] [address] 7 [place] [address] Care Team Providers Care Medical Affairs Manager Name Role Phone Name, Eddie GILMORE Primary Care Provider [phone] Reason for Visit * Reason Onset Date Comments Durable Medical Equipment 09/24/2024 Hip pr otectors Encounter Details Date Type Department Care Team ([facility] st Contact Info) Description 09/24/2024 Telephone [facility] MED[facility]INE 230 [place], [place] [phone] Name, MD Eddie 230 [place] [address] Durable Medical Equipment (Hip protectors) Social History [...] * Telephone Encounter - Fadia Adrian - 09/25/2024 1:26 PM EDT DME RX for hip protectors generated and placed on providers desk for signature. * Telephone Encounter - Fadia Adrian - 09/24/2024 12:56 PM EDT DME request received for hip protectors from [facility] . Please advise if agree with DME request. Thank you documented in this encounter Plan of Treatment Upcoming Encounters Date Type Department Care Team (Late st Contact Info) Description 10/29/2024 2:30 PM EDT Office Visit [facility] MED[facility]INE [address] [place] [address] Name, MD Eddie [address] [place] [address] 11/12/2024 9:45 AM EDT Office Visit [facility] [address] [place] [address] documented as of this encounter Visit Diagnoses Not on filedocumented in this encounter Additional Health Concerns Assessment Noted Time PHQ-9 Depression Total Score: 9 05/10/20 24 11:56 AM EST documented as of this encounter Care Teams Medical Affairs Manager Relationship Specialty Start Date End Date Name, MD Eddie 230 [place] [address] PCP - General Family Medicine 09/16/15 [place] [facility] 07/01/24 documented as of this encounter
--- OUTSIDE RECORDS SUMMARY | 2024-09-26 15:48 | XMS_ITS | Encounter Summary ---
Author Organization [employer] Address [address] [place] [address] 7 [place] [address] Care Team Providers Care Ergonomics Engineer Name Role Phone Name, Eddie GILMORE Primary Care Provider [phone] Reason for Visit * Reason Onset Date Comments Active Med List 06/28/2023 Encounter Details Date Type Department Care Team ([facility] st Contact Info) Description 06/28/2023 Telephone [facility] MEDICINE 230 [place], [place] [phone] Name, MD Eddie 230 [place] [address] Active Med List Social History Tobacco Use [...] Be requesting a updated active medication list repairer typewriter did attempt to transfer to Medical records so that she can obtain this information but they kept transferring back to the call center. [facility] [address], [place], [place] [phone] documented in this encounter Plan of Treatment Upcoming Encounters Date Type Department Care Team (Late st Contact Info) Description 10/29/2024 2:30 PM EDT Office Visit [facility] MEDICINE [address] [place] [address] Name, MD Eddie [address] [place] [address] 11/12/2024 9:45 AM EDT Office Visit [facility] MEDICINE [address] [place] [address] documented as of this encounter Visit Diagnoses Not on filedocumented in this encounter Additional Health Concerns Assessment Noted Time PHQ-9 Depression Total Score: 10 023 1:16 PM EDT documented as of this encounter Care Teams Ergonomics Engineer Relationship Specialty Start Date End Date Name, MD Eddie [address] [facility] [place] [address] PCP - General Family Medicine 09/16/15 [place] [facility] 07/01/24 documented as of this encounter
--- OUTSIDE RECORDS SUMMARY | 2024-09-26 15:48 | XMS_ITS | Encounter Summary ---
Author Organization [employer] Address [address] [place] [address] 7 [place] [address] Care Team Providers Care Assistant Chief Of Police Name Role Phone Name, Eddie GILMORE Primary Care Provider [phone] Reason for Visit * Reason Onset Date Comments Call Back Request 09/19/2024 Encounter Details Date Type Department Care Team ([facility] st Contact Info) Description 09/19/2024 Telephone [facility] MEDICINE 230 [place] [address] Name, MD Eddie 230 [place], [place] [phone] Call Back Request Social History Tobacco Use [...] referral is supposed to be sent to [facility] so that they can approve it. Per infantry operations specialist Good morning, I submitted a prior [...] to Dr. Medina neurologyoffice to discuss further. Manager Security reports pt had their last appt on March 25 of last year and it looks like they did not have a referral at that time. Advised the front desk receptionist a referral wassent out on our end on 02/05/24 and front desk receptionist reports they most likely never received. They report we can discuss further with Phyllis who is apart of the billing apartment but they are not here today. Phyllis will be at their office on Monday, Monday and . Message forwarded to team nurse box to follow up with the billing department on Monday. Message forwarded to infantry operations specialist jarek ROLAND. * Telephone Encounter - Will Badillo - 09/19/2024 10:10 AM EDT Tc from pt requesting a call back regarding referral for Neurology. Contact pt at [phone] documented in this encounter Plan of Treatment Upcoming Encounters Date Type Department Care Team (Late st Contact Info) Description 10/29/2024 2:30 PM EDT Office Visit [facility] [address] [place] [address] Name, MD Eddie 230 [place] [address] 11/12/2024 9:45 AM EDT Office Visit [facility] 230 [place] [address] documented as of this encounter Visit Diagnoses Not on filedocumented in this encounter Additional Health Concerns Assessment Noted Time PHQ-9 Depression Total Score: 9 05/10/20 24 11:56 AM EST documented as of this encounter Care Teams Assistant Chief Of Police Relationship Specialty Start Date End Date Name, MD Eddie 230 [place] [address] PCP - General Family Medicine 09/16/15 [place] [facility] 07/01/24 documented as of this encounter
--- OUTSIDE RECORDS SUMMARY | 2024-09-26 15:49 | XMS_ITS | Encounter Summary ---
Author Organization [employer] Address [address] [place] [address] 7 [place] [address] Care Team Providers Care Remelt Worker Name Role Phone Name, Eddie GILMORE Primary Care Provider [phone] Reason for Visit * Reason Onset Date Comments Medication Question 09/05/2023 Encounter Details Date Type Department Care Team ([facility] st Contact Info) Description 09/05/2023 Telephone [facility] MED[facility]INE 230 [place], [place] [phone] Name, MD Eddie 230 [place] [address] Medication Question Social History Tobacco Use Types [...] 2:30 PM EDT Office Visit [facility]INE [address] [place] [address] Name, MD Eddie [address] [place] [address] 11/12/2024 9:45 AM EDT Office Visit [facility]INE [address] [place] [address] documented as of this encounter Visit Diagnoses Not on filedocumented in this encounter Additional Health Concerns Assessment Noted Time PHQ-9 Depression Total Score: 10 11/28/ 023 1:16 PM EDT documented as of this encounter Care Teams Remelt Worker Relationship Specialty Start Date End Date Name, MD Eddie 230 [place] [address] PCP - General Family Medicine 09/16/15 [place] [facility] 07/01/24 documented as of this encounter
--- OUTSIDE RECORDS SUMMARY | 2024-09-26 15:49 | XMS_ITS | Encounter Summary ---
Author Organization [employer] Address [address] [place] [address] 7 [place] [address] Care Team Providers Care Shipping And Receiving Weigher Name Role Phone Name, Edide GILMORE Primary Care Provider Reason for Visit * Reason Comments Med Refill Encounter Details Date Type Department Care Team (Late st Contact Info) Description 05/08/2023 Refill [facility] MEDICINE 230 [place], [place] [phone] Name, MD Eddie 230 [place], [place] [phone] Chronic pain syndrome Social History Tobacco Use [...] Description 10/29/2024 2:30 PM EDT Office Visit [address] [address] NameEddie MD [address] [place] [address] 11/12/2024 9:45 AM EDT Office Visit [address] [address] documented as of this encounter Visit Diagnoses Diagnosis Chronic pain syndrome documented in this encounter Additional Health Concerns Assessment Noted Time PHQ-9 Depression Total Score: 10 023 1:16 PM EDT documented as of this encounter Care Teams Shipping And Receiving Weigher Relationship Specialty Start Date End Date NameEddie MD [address] [place] [address] PCP - General Family Medicine 09/16/15 [place] [facility] 07/01/24 documented as of this encounter
--- OUTSIDE RECORDS SUMMARY | 2024-09-26 15:49 | XMS_ITS | Encounter Summary ---
Author Organization [employer] Address [address] [place] [address] [place] [address] Care Team Providers Care Polarity Tester Name Role Phone Name, Eddie GILMORE Primary Care Provider [phone] Reason for Visit * Reason Comments Med Refill Encounter Details Date Type Department Care Team (Late st Contact Info) Description 01/29/2023 Refill [facility] MEDICINE [address] [place] [address] [phone] Farhana Singh FNP [address] [place] [address] [place] [address] Social History Tobacco Use Types Packs/Day Years [...] Description 10/29/2024 2:30 PM EDT Office Visit [facility] MEDICINE [address] [place] [address] [phone] Name, MD Eddie [address] [place] [phone] 11/12/2024 9:45 AM EDT Office Visit [facility] [address] [facility] [address] documented as of this encounter Visit Diagnoses Not on filedocumented in this encounter Additional Health Concerns Assessment Noted Time PHQ-9 Depression Total Score: 10 11/28/ 023 1:16 PM EDT documented as of this encounter Care Teams Polarity Tester Relationship Specialty Start Date End Date Name, MD Eddie [address] [facility] [place] [address] PCP - General Family Medicine 09/16/15 [place] [facility] 07/01/24 documented as of this encounter
--- OUTSIDE RECORDS SUMMARY | 2024-09-26 15:49 | XMS_ITS | Data Portability ---
Author Organization [place] [facility], Allergy Address [address] [place] [phone] Care Team Providers Care Swine Genetics Researcher Name Role Phone NAME, DELIA Primary Care [...] Organization Details Recorded Time Essential hypertens ion 56239873 Active 2014 Essential (primary) hypertensi on; Note: Date Diagnosed: 05/07/2015 9:43 AM (I10) Not Available [facility] [place] 02:37:47 Bleeding from nose 086017875 Active 2014 Epistaxis; Note: Date Diagnosed: 05/07/2015 9:43 AM (R04.0) Not Available [employer] 4 02:37:50 Anterior epistaxis 215962883 Active 2024 YANIV GARCIA MD [address] [facility],[place] [address], [place], [address] , [facility] 5 12:32:29 Problem Notes None recorded. Procedures Surgical History Date Name Laterality Status Provider Name and Address Organization Details Recorded Time 5 Epistaxis Simple Nasal Cautery Right completed YANIV GARCIA MD [address] [facility], [place], [address], [facility] 08/11/2024 12:31:38 Imaging Results None recorded. Procedure Notes None recorded. Medical Equipment None Reported. Allergies Allergen ID Allergen Name Allergen Category Reaction Reaction Severity Criticality Documentation Date Start Date Code Code System Note Provider Name and Address Organization Details Recorded Time 49819 atorvasta tin medicatio n other Not available Not available 10/31/2023 99525 RxNorm React ion: unkno wn, unspe cifie d;; Not Available [facility] 4 00:59:20 Medications Name Sig [...] 24 hr 08/09 completed Medicati on ID: 449276 D uration Value: 90 Brand Name: oxybutyn in chloride Send Method: E-Prescr ibed Sub s Allowed: subs OK Speci al Instruct ion: TAKE 1 TABLET BY MOUTH EVERY DAY Medi cationGe nericNam e: oxybutyn in chloride Not Available Not Available Not Available Patanol 0.1 % eye drops 08/09 completed Medicati on ID: 027545 B rand Name: Patanol Send Method: E-Prescr [...] layed release 08/09 completed Medicati on ID: 177232 B rand Name: aspirin Send Method: E-Prescr ibed Sub s Allowed: subs OK Medic ationGen ericName : aspirin Not Available Not Available Not Available tramadol 50 mg tablet 2014 active Medicati on ID: 100481 D uration Value: 28 Brand Name: tramadol Send Method: E-Prescr ibed Sub s Allowed: subs OK Speci al Instruct ion: TAKE 1 TABLET BY MOUTH EVERY 8 HOURS NEEDED FOR PAIN Med icationG enericNa me: tramadol Not Available Not Available Not Available nortripty line 25 mg capsule 08/09 completed Medicati on ID: 460390 D uration Value: 90 Brand Name: nortript yline Se nd Method: E-Prescr ibed Sub s Allowed: subs OK Speci al Instruct ion: TAKE 3 CAPSULES BY MOUTH AT BEDTIME Medicati onGeneri cName: nortript yline Not Available Not Available Not Available levothyro xine 100 mcg tablet 08/09 completed Medicati on ID: 540809 D uration Value: 90 Brand Name: levothyr [...] elayed release 2014 active Medicati on ID: 267178 D uration Value: 90 Brand Name: omeprazo [...] ne propionat e 50 mcg/actua tion nasal spray,[facility] 2013 active Medicati on ID: 943672 D uration Value: 30 Brand Name: fluticas one Send Method: E-Prescr ibed Sub s Allowed: subs ALESSIO Orantes al Instruct ion: SPRAY 2 SPRAYS INTO EACH NOSTRIL DAILY Me dication GenericN delmi: fluticas one Not Available Not Available Not Available loratadin e 10 mg tablet 08/09 completed Medicati on ID: 783454 D uration Value: 30 Brand Name: loratadi [...] 500 mg tablet active Medicati on ID: 485175 B rand Name: Tylenol Extra Strength Send [...] Updated DateTime 09/06/2024 157.48 cm 25.4 kg/m2 60381.34 g KELLY NAFISA [place] - [facility] 09/06/2024 13:28:14 Social History None recorded. Functional Status None recorded. Mental Status None recorded. Family History Nothing Reported. Medical History Condition Response Anemia Y Heart Attack ([place]) Y Stroke Y Hypertension Y Asthma Y Gynecological HistoryNo gynecological history recorded. Obstetrics History GPAL:G 0 P 0 0 0 0 Past Encounters Encounter ID Performer Location Encounter Start Date Encounter Closed Date Diagnosis/Indication Diagnosis SNOMED-CT Code Diagnosis ICD10 Code Diagnosis Note [id number] YANIV GARCIA MD [facility] [address] [address] 08/09/2024 09:39:15 08/09/2024 11:07:17 Anterior epistaxis 138738706 R04.0 78-year-ol d female with a history [...] for cautery on the left. Essential hypertension 86024941 I10 Long-term current use of antiplatelet drug 7433466203 55017 Z79.02 [id number] YANIV GARCIA MD [facility] 100 [place] [address] 09/06/2024 13:16:33 09/06/2024 13:54:17 Anterior epistaxis 405415518 R04.0 Bleeding from nose 20721 6005 R04.0 Essential hypertension 96753506 I10 Health Concerns Section Related Observation LastModified by Organization Detai ls LastModified Time None Recorded Concern Status LastModified by Organization Details LastModified Time None Recorded Advance Directives Directive None Recorded Payers Encounter Date Sequence Insurance Name Policy Number Policy Zapata Covered Member ID Zapata Member ID Guarantor Name 08/09/2024 1 [facility] (MEDICAID HMO) Celeste Abad [id number] Celeste Abad 09/06/2024 1 [facility] (MEDICAID HMO) Celeste Abad [id number] Celeste Abad Notes Date Note Type Note [...] able to stop them YANIV GARCIA MD [address] [place] [address],[address], [address], [place] - [facility] 08/11/2024 12:36:32 09/06/2024 text/html 78yo female with hypertension on clopidogrel presents for reevaluation of right recurrent nosebleeds. Right septum cauterized 08/09/[address] Garcia. Patient reports persistent recurrent right-sided nasal bleeding every couple days. Most recent episode 3 days ago, managed quickly with nasal cease. She is in the process of scheduling iron transfusions through [facility]. She was recently diagnosed with emphysema. She continues to touch the nose frequently. YANIV GARCIA MD [address] [facility],[address], [address], [facility] - [facility] 09/06/2024 17:25:55 OBGyn Episode No OBEpisode recorded.
--- OUTSIDE RECORDS SUMMARY | 2024-09-26 15:49 | XMS_ITS | Encounter Summary ---
Author Organization [employer] Address [address] [place] [address] 7 [place] [address] Care Team Providers Care Systems Mgr Name Role Phone Name, Eddie GILMORE Primary Care Provider [phone] Reason for Visit * Reason Onset Date Comments Medication Question 09/01/2023 Encounter Details Date Type Department Care Team ([facility] st Contact Info) Description 09/01/2023 Telephone [facility] MEDICINE 230 [place], [place] [phone] Name, MD Eddie 230 [place] [address] Medication Question Social History Tobacco Use Types [...] an add on. Please contact pharmacy at [phone]. documented in this encounter Plan of Treatment Upcoming Encounters Date Type Department Care Team (Late st Contact Info) Description 10/29/2024 2:30 PM EDT Office Visit [facility] [place] [address] Name, [place] [address] 11/12/2024 9:45 AM EDT Office Visit [facility] [place] [address] documented as of this encounter Visit Diagnoses Not on filedocumented in this encounter Additional Health Concerns Assessment Noted Time PHQ-9 Depression Total Score: 10 023 1:16 PM EDT documented as of this encounter Care Teams Systems Mgr Relationship Specialty Start Date End Date Name, [place] [address] PCP - General Family Medicine 09/16/15 [place] A 07/01/24 documented as of this encounter
--- OUTSIDE RECORDS SUMMARY | 2024-09-26 15:49 | XMS_ITS | Encounter Summary ---
Author Organization [employer] Address [address] [place] [address] 7 [place] [address] Care Team Providers Care Heel Seat Laster Name Role Phone Name, Eddie GILMORE Primary Care Provider [phone] Reason for Visit * Reason Comments Med Refill Encounter Details Date Type Department Care Team (Late Contact Info) Description 01/04/2023 Refill [facility] MEDICINE [address] [place] [address] [phone] Name, MD Eddie 230 [place] [address] Gastroesophageal reflux disease, unspecified whether esophagitis present [...] Description 10/29/2024 2:30 PM EDT Office Visit [facility] MEDICINE [address] [facility] [place] [address] Name, [place] [address] 11/12/2024 9:45 AM EDT Office Visit [facility] [place] [address] documented as of this encounter Visit Diagnoses Diagnosis Gastroesophageal reflux disease, unspecified whether esophagitis present documented in this encounter Additional Health Concerns Assessment Noted Time PHQ-9 Depression Total Score: 10 023 1:16 PM EDT documented as of this encounter Care Teams Heel Seat Laster Relationship Specialty Start Date End Date Name, [place] [address] PCP - General Family Medicine 09/16/15 [place] [facility] 07/01/24 documented as of this encounter
--- OUTSIDE RECORDS SUMMARY | 2024-09-26 15:49 | XMS_ITS | Encounter Summary ---
Author Organization [employer] Address [address] [place] [address] 7t [place] [address] Care Team Providers Care Postal Service Mail Processor Name Role Phone Name, Eddie GILMORE Primary Care Provider [phone] Encounter Details Date Type Department Care Team ([facility] st Contact Info) Description 12/07/2022 Telephone [facility] MEDICINE 230 [place], [place] [phone] Name, MD Eddie 230 [place] [address] Social History Tobacco Use Types Packs/Day Years [...] update PCP now. Ordering provider Pierce Pillai PACK OUT OPERATOR Follow with fredyn as indicated. Results faxed at time of call to [phone]. Ref.# [id number] documented in this encounter Plan of Treatment Upcoming Encounters Date Type Department Care Team (Late st Contact Info) Description 10/29/2024 2:30 PM EDT Office Visit [facility] MEDICINE [address] [place] [address] Name, MD Eddie [address] [place] [address] 11/12/2024 9:45 AM EDT Office Visit [address] [address] documented as of this encounter Visit Diagnoses Not on filedocumented in this encounter Additional Health Concerns Assessment Noted Time PHQ-9 Depression Total Score: 10 023 1:16 PM EDT documented as of this encounter Care Teams Postal Service Mail Processor Relationship Specialty Start Date End Date Name, MD Eddie [address] [place] [address] PCP - General Family Medicine 09/16/15 [place] [facility] 07/01/24 documented as of this encounter
--- OUTSIDE RECORDS SUMMARY | 2024-09-26 15:49 | XMS_ITS | Encounter Summary ---
Author Organization [facility] [employer] Address [address] [place] [address] 7 [place] [address] Care Team Providers Care Certified Medical Biller Name Role Phone NameEddie MD Primary Care Provider Reason for Visit * Reason Comments Med Refill Encounter Details Date Type Department Care Team (Late Contact Info) Description 02/26/2023 Refill [facility] [address] [place] [address] [phone] NameEddie MD [address] [place] [address] [phone] Chronic pain syndrome Social History Tobacco Use [...] Office Visit [facility] [address] [place] [address] [phone] Eddie Marshall MD [address] [place] [address] [phone] 11/12/2024 9:45 AM EDT Office Visit [facility] [address] [place] [address] documented as of this encounter Visit Diagnoses Diagnosis Chronic pain syndrome documented in this encounter Additional Health Concerns Assessment Noted Time PHQ-9 Depression Total Score: 10 023 1:16 PM EDT documented as of this encounter Care Teams Certified Medical Biller Relationship Specialty Start Date End Date Name, MD Eddie [address] [place] [address] PCP - General Family Medicine 09/16/15 Jerica A 07/01/24 documented as of this encounter
--- OUTSIDE RECORDS SUMMARY | 2024-09-26 15:49 | XMS_ITS | Encounter Summary ---
Author Organization [employer] Address [address] [place] [address] 7 [place] [address] Care Team Providers Care Manager Union Name Role Phone Name, Eddie GILMORE Primary Care Provider [phone] Reason for Visit * Reason Onset Date Comments Durable Medical Equipment 09/26/2024 Encounter Details Date Type Department Care Team ([facility] st Contact Info) Description 09/26/[address] [facility] [address] [place], [place] [phone] Name, MD Eddie [address] [place] [address] Durable Medical Equipment Social History Tobacco Use [...] * Telephone Encounter - Clari Moss - 09/26/2024 8:39 AM EDT Tc from [facility] requesting a Hip Protector. P. [phone] F. [phone] ( ATTENTION; KERMIT) documented in this encounter Plan of Treatment Upcoming Encounters Date Type Department Care Team (Late st Contact Info) Description 10/29/2024 2:30 PM EDT Office Visit [address] [address] Name, MD Eddie [address] [place] [phone] 11/12/2024 9:45 AM EDT Office Visit [address] [address] documented as of this encounter Visit Diagnoses Not on filedocumented in this encounter Additional Health Concerns Assessment Noted Time PHQ-9 Depression Total Score: 9 05/10/20 24 11:56 AM EST documented as of this encounter Care Teams Manager Union Relationship Specialty Start Date End Date Name, MD Eddie [address] [place] [phone] PCP - General Family Medicine 09/16/15 Jerica SEN 07/01/24 documented as of this encounter
--- OUTSIDE RECORDS SUMMARY | 2024-09-26 15:49 | XMS_ITS | Encounter Summary ---
Author Organization [email or web address] Address [address] [place] [address] 7 [place] [address] Care Team Providers Care Data Officer Name Role Phone Name, Eddie GILMORE Primary Care Provider [phone] Reason for Visit * Reason Comments Med Refill Encounter Details Date Type Department Care Team (Late Contact Info) Description 12/01/2022 Refill [facility] [address] [place], [place] [phone] Name, MD Eddie [address] [place] [address] Controlled type 2 diabetes mellitus with complication, without long-term current use of insulin ([facility]) Social History Tobacco Use Types Packs/Day Years [...] Description 10/29/2024 2:30 PM EDT Office Visit [facility] [place] [id number] Name, MD Eddie [facility] [place] [id number] 11/12/2024 9:45 AM EDT Office Visit [facility] [place] [id number] documented as of this encounter Visit Diagnoses Diagnosis Controlled type 2 diabetes mellitus with complication, without long-term current use of insulin ([facility]) documented in this encounter Additional Health Concerns Assessment Noted Time PHQ-9 Depression Total Score: 10 023 1:16 PM EDT documented as of this encounter Care Teams Data Officer Relationship Specialty Start Date End Date Name, [place] [id number] PCP - General Family Medicine 09/16/15 Jerica BURGOSA 07/01/24 documented as of this encounter
--- OUTSIDE RECORDS SUMMARY | 2024-09-26 15:49 | XMS_ITS | Encounter Summary ---
Author Organization [employer] Address [address] [place] [address] 7 [place] [address] Care Team Providers Care Casing Trimmer Name Role Phone Name, Eddie GILMORE Primary Care Provider Reason for Visit * Reason Comments Med Refill Encounter Details Date Type Department Care Team (Late st Contact Info) Description 06/18/2023 Refill [facility] [address] [place], [place] [phone] Name, MD Eddie [address] [place], [place] [phone] Chronic pain syndrome Social History Tobacco Use [...] Description 10/29/2024 2:30 PM EDT Office Visit [address] [address] NameEddie MD [address] [place] [phone] 11/12/2024 9:45 AM EDT Office Visit [address] [address] documented as of this encounter Visit Diagnoses Diagnosis Chronic pain syndrome documented in this encounter Additional Health Concerns Assessment Noted Time PHQ-9 Depression Total Score: 10 023 1:16 PM EDT documented as of this encounter Care Teams Casing Trimmer Relationship Specialty Start Date End Date NameEddie MD [address] [place] [phone] PCP - General Family Medicine 09/16/15 Jerica VNA 07/01/24 documented as of this encounter
--- OUTSIDE RECORDS SUMMARY | 2024-09-26 15:49 | XMS_ITS | Encounter Summary ---
Author Organization [employer] Address [address] [place] [address] 7 [place] [address] Care Team Providers Care Felt Cutter Name Role Phone Name, Eddie GILMORE Primary Care Provider [phone] Reason for Visit * Reason Onset Date Comments Referral 02/02/2023 Back dated refer ral Encounter Details Date Type Department Care Team ([facility] st Contact Info) Description 02/02/2023 Telephone [facility] [address] [place], [place] [phone] Name, MD Eddie [address] [place] [address] Referral (Back dated referral ) Social History [...] 1:40 PM EDT Tc from [facility]ie at [facility] requesting status on message below regarding referral. Fax number [phone]. Any questions please call [phone] * Telephone Encounter - Amber Roger RN - 02/03/2023 10:34 AM EDT Please review message below regarding backdated referral for these dates * Telephone Encounter - Laure Mcgill - 02/02/2023 2:07 PM EDT Tc from Kasie at [facility] calling in regards to referral needing to be back dated. Patient was seen at the office on 01/03/23 and 01/11/23. Fax number [phone]. Any questions please call [phone]. documented in this encounter Plan of Treatment Upcoming Encounters Date Type Department Care Team (Late st Contact Info) Description 10/29/2024 2:30 PM EDT Office Visit [address] [address] Name, MD Eddie [address] [place] [phone] 11/12/2024 9:45 AM EDT Office Visit [address] [address] documented as of this encounter Visit Diagnoses Not on filedocumented in this encounter Additional Health Concerns Assessment Noted Time PHQ-9 Depression Total Score: 10 023 1:16 PM EDT documented as of this encounter Care Teams Felt Cutter Relationship Specialty Start Date End Date Name, MD Eddie [address] [place] [phone] PCP - General Family Medicine 09/16/15 Jerica SEN 07/01/24 documented as of this encounter
== END 2024-09-26 15:38 | disposition home or self-care (01) ==
PROVIDERS: Emergency Provider Emergency Medicine; PCP Internal Medicine Geriatric Medicine
DX: R04.0 Epistaxis (principal); I10 Essential (primary) hypertension; I25.10 Atherosclerotic heart disease of native coronary artery without angina pectoris; Z79.899 Other long term (current) drug therapy; Z87.891 Personal history of nicotine dependence
CPT/HCPCS: 30901; 99283; 99284

== ENCOUNTER 2024-09-28 14:37 | Emergency (ER) | payer MEDICARE, SELFPAY ==
[2024-09-28 14:41] VITALS: BP 128/59; PULSE 97; RESP 16; TEMP 36.4; O2SAT 94; BMI 25.4
--- NOTE | 2024-09-28 14:43 | ED_ITS ---
HPI - General Adult General Chief complaint: General Medical Stated complaint: packing removal Time Seen by Provider: 09/28/24 15:13 Source: patient, RN notes reviewed and old records reviewed Mode of arrival: ambulatory History of Present Illness ED Provider: Mitzy Shahid PA-C HPI narrative: 78-year-old female with a past medical history HTN, HLD, diabetes, CAD, CVA/TIA, seizure disorder, hypothyroid, GERD, presenting to ED for rhino rocket removal. Patient was evaluated in our ED on 09/26/2024 for atraumatic epistaxis had rhino rocket placed. States she has been spitting up some small dark clots. Denies nica bleeding around rhino rocket. Reports some lightheadedness/fatigue earlier today however denies at present. Reports some black stool last week however denies at present, states had brown BM this morning. Denies CP/SOB, lightheadedness/dizziness at present, abdominal pain Related Data Home Medications ?Medication ?Instructions ?Recorded ?Confirmed albuterol sulfate 90 mcg/actuation 2 puff inhalation Q4H PRN 09/30/20 09/24/24 aerosol inhaler Respiratory Distress latanoprost 0.005 % eye drops 1 drp ophthalmic (eye) BEDTIME 09/30/20 09/24/24 oxycodone-acetaminophen 5 mg-325 1 tab PO BID PRN Pain (Scale Score 09/30/20 09/24/24 mg tablet 7-10) magnesium 250 mg tablet 500 mg PO DAILY 02/24/21 09/24/24 milk thistle 500 mg capsule 500 mg PO BID 02/24/21 09/24/24 levothyroxine 112 mcg tablet 112 mcg PO DAILY 03/16/22 09/24/24 metformin 500 mg tablet 500 mg PO BID 03/16/22 09/24/24 biotin 5 mg capsule 5 mg PO DAILY 05/04/22 09/11/24 atorvastatin 40 mg tablet 40 mg PO DAILY 06/16/22 09/24/24 mirabegron 50 mg tablet,extended 50 mg PO DAILY 06/16/22 09/24/24 release 24 hr (Myrbetriq) betamethasone valerate 0.1 % 1 appl topical DAILY 11/19/22 09/11/24 topical cream levetiracetam 750 mg tablet 750 mg PO BID 11/19/22 09/24/24 (Keppra) peg 400-propylene glycol (PF) 0.4 1 drp ophthalmic (eye) BID 11/19/22 09/24/24 %-0.3 % eye drops in a dropperette (Systane (PF)) simethicone 125 mg chewable tablet 125 mg PO TID PRN GAS/BLOATING 11/19/22 09/24/24 trospium 60 mg capsule,extended 60 mg PO DAILY 01/29/24 09/24/24 release 24 hr ferrous sulfate 325 mg (65 mg 325 mg PO DAILY 08/26/24 09/24/24 iron) tablet (Iron (ferrous sulfate)) wheat dextrin 3 gram/4 gram oral 1.5 g PO BID 09/02/24 09/24/24 powder packet (Benefiber Sugar Free (dextrin)) melatonin 5 mg tablet 10 mg PO .hs 09/24/24 09/24/24 Previous Rx's ?Medication ?Instructions ?Recorded clopidogrel 75 mg tablet 75 mg PO DAILY #90 tabs 12/08/23 lidocaine HCl 2 % topical cream 1 appl topical .at bedtime 4 weeks 02/20/24 #118 mL amlodipine 2.5 mg tablet 2.5 mg PO DAILY 90 days #90 tabs 03/28/24 pantoprazole 40 mg tablet,delayed 40 mg PO BID #60 tabs 05/29/24 release sucralfate 100 mg/mL oral 10 ml PO BID #600 mL 09/08/24 suspension docusate sodium 100 mg capsule 100 mg PO DAILY #90 caps 09/17/24 (Colace) fluticasone propionate 230 2 puff inhalation Q12H #12 grams 09/24/24 mcg-salmeterol 21 mcg/actuation HFA inhaler (Advair HFA) Allergies Allergy/AdvReac Type Severity Reaction Status Date / Time scallops Allergy Unknown Unknown Verified 09/28/24 14:41 Review of Systems 2 Review of Systems: Yes all other systems are reviewed and are negative Constitutional: Constitutional: Reports as per [facility] Past Medical History Attestation statement: The following information was validated with the patient. Source: old records reviewed Medical History Paraesophageal hernia Osteoporosis Lower GI bleed Rectal bleed Anemia Stable angina Essential hypertension CVA (cerebral vascular accident) CAD (coronary artery disease) Surgical History Status post cardiac catheterization History of cardiac cath History of adenoidectomy Hx of tonsillectomy Hx of hernia repair History of section History of cholecystectomy History of appendectomy Family History Family History Mother Cancer Father Heart attack Social History Social History Household Members: Children Housing: House Do you presently have visiting nurse or other home services: Yes Unable to assess alcohol history related to: Unknown Alcohol intake: never Patient Tobacco Use Status: Former Tobacco user Years Smoked: 30 +/- Smoked in Last 30 Days: No e-Cigarette/Vaping Use: Never Used Second Hand Smoke Exposure: No Use of substances other than those prescribed or required for medical reasons: Yes Substance Use Type: Marijuana Substance Use Frequency: Occasionally Advance Directives: No Advance Directives Information Provided: No Do you have a plan to hurt others: No Plan service: No Current occupational status: retired Current occupation: right hand dominant Physical Exam ED Vital Signs: Vital Signs - 24 hr 09/28/24 14:41 Temperature 97.6 F Pulse Rate 97 Respiratory Rate 16 Blood Pressure 128/59 L Pulse Oximetry 94 Oxygen Delivery Method Room Air BMI result Body Mass Index 25.4 Const General: cooperative, healthy appearing and no acute distress Orientation/consciousness: patient oriented x3 Limitations: no limitations HENMT Other: Rhino rocket in place to right nare. No active bleeding. No posterior oropharyngeal bleeding. Head: Yes normal to inspection and Yes atraumatic Ears: hearing grossly normal bilaterally General nose exam: Normal external nose present, no nasal discharge noted and no epistaxis Face and sinus: Yes normal facial exam Mouth: Normal oral and palatal mucosa present and no drooling Throat: Yes posterior oropharynx normal, Yes tonsils normal, Yes uvula midline, No peritonsillar mass, No posterior oropharynx abnormal, No uvula laterally displaced and No uvular edema Eyes General: appearance normal, both eyes and all related structures EOM: EOMs intact bilaterally Neck Neck: Yes normal visual inspection and Yes no meningeal signs Resp Effort & Inspection: normal respiratory effort and no respiratory distress Auscultation: clear to auscultation bilaterally Cardio Rate: regular rate Heart sounds: S1 normal heart sound present and S2 normal heart sound present GI Inspection: Yes normal to inspection Rectal Exam - Female: No External hemorrhoid(s) present and No Internal hemorrhoid(s) present Skin Rashes: no rashes Wounds: no wounds Neuro General: patient oriented x3, tone normal and no meningeal signs Cranial nerves: Yes CN's II-XII intact bilaterally Gait exam (Neuro): Normal gait present Extrem General: Yes normal to inspection Course Course Course Narrative: This is a rapid medical exam performed by Hipolito Dos Santos NP: Additional HPI, ROS, PE not included below will be deferred to primary provider. 09/28/24 14:44 Patient is a 78-year-old female presenting to the ED for removal of Rhino Rocket. Seen here on 09/26 for epistaxis. Reports she has been having bleeding around the Rhino Rocket so was afraid to have it removed at urgent care. Held her blood thinner yesterday and this am. -1710--patient has been observed and re-evaluated without evidence of active rebleed. -H&H with notable drop from 10.0/33.1 (on 08/27/2024) to 8.5/28.2 today > denies active rectal bleeding/melena at present, however will obtain occult stool > patient is asymptomatic at present -rectal exam performed by AMARILYS Miller with a verbal consent obtained from patient -1730--occult stool negative. No evidence of active bleeding since ED arrival. Patient is safe for discharge home at this time with close PCP/GI follow-up. Results discussed with patient including worrisome signs and symptoms and strict return precautions, and when to return to the emergency department. They verbalized understanding and feel safe for discharge at this time. Procedures FB Removal Nose Location: nostril (R) Suspected Foreign Body: other (rhinorocket) Patient Tolerated Procedure: well Complications: none Medical Decision Making Medical Decision Making [facility] Narrative: 78-year-old female with a past medical history HTN, HLD, diabetes, CAD, CVA/TIA, seizure disorder, hypothyroid, GERD, presenting to ED for rhino rocket removal. Patient was evaluated in our ED on 09/26/2024 for atraumatic epistaxis had rhino rocket placed. On exam vital signs stable, NAD, nontoxic appearing, physical exam as noted above. Rhino rocket intact to right nare, removed without complication or evidence of active rebleed. We will continue to observe. Rule out anemia/occult GI bleed, patient with known history of anemia. Plan: labs, observe and re-evaluate Please refer to course for remaining clinical decision making, interpretation of labs/imaging results, and discussions with consultants and/or family members. Differential Diagnosis Differential Diagnoses: The differential diagnosis associated with the presentation includes As above Admission/Observation Consideration of admission/observation: Escalation of care including admission/observation considered Lab Data MDM Lab Attestation statement: I reviewed the patient's lab results. 09/28/24 16:02 09/28/24 16:02 Labs: Lab Results 09/28/24 09/28/24 Range/Units 16:02 17:12 WBC 8.2 (4.8-10.8) X10*3/uL RBC 3.58 L (4.20-5.50) X10*6/uL Hgb 8.5 L (12.0-16.0) g/dl Hct 28.2 L (37.0-47.0) % MCV 78.8 L (80.0-98.0) fL MCH 23.7 L (27.0-33.0) pg MCHC 30.1 L (31.0-35.0) g/dl RDW 18.2 H (11.0-16.0) % Plt Count 344 (160-400) X10*3/uL MPV 9.4 (9.4-12.3) fL Immature Gran % (Auto) 0.4 (0.0-0.4) % Neut % (Auto) 66.5 (45-73) % Lymph % (Auto) 20.0 (20-40) % Mcmullen % (Auto) 10.3 (2-11) % Eos % (Auto) 2.3 (0-4) % Baso % (Auto) 0.5 (0-2) % Lymph # (Auto) 1.6 (1.2-4.9) X10*3/uL Mcmullen # (Auto) 0.8 (0.1-1.2) X10*3/uL Eos # (Auto) 0.2 (0.0-0.4) X10*3/uL Baso # (Auto) 0.0 (0.0-0.2) X10*3/uL Abs Immat Gran (auto) 0.03 (0.00-0.03) X10*3/uL Absolute Neuts (auto) 5.4 (2.0-8.3) x10*3/uL Absolute Nucleated RBC 0.000 (0.0-0.012) X10*3/uL Nucleated RBC % (auto) 0.0 (0.0-0.2) /100WBC PT 11.6 (10.9-12.4) SEC INR 1.0 (0.9-1.1) Sodium 138 (135-145) mmol/L Potassium 4.2 (3.3-5.1) mmol/L Chloride 104 (96-108) mmol/L Carbon Dioxide 25 (22-29) mmol/L Anion Gap 13 (12-20) BUN 21 H (9-16) mg/dL Creatinine 0.66 (0.5-1.4) mg/dL Estim Creat Clear Calc 62.2 Estimated GFR > 60 Random Glucose 131 H (60-115) mg/dL Calcium 9.2 (8.4-10.2) mg/dL Stool Occult Blood NEGATIVE (NEGATIVE) External Record Review External record reviewed: Inpatient record, Office record, Outpatient record, Prior outpatient labs, Prior outpatient radiology, Primary care record and Outside ED record Tests considered The following testing was considered but not selected: As above Prescription Management I considered prescription management with: Other Chronic Conditions Patient?s care impacted by: Other Social Determinants Patient?s care significantly limited by Social Determinants of Health including: Other Social Determinant of Health Discharge Plan Discharge Clinical Impression: Encounter for removal of nasal packing, Anemia Patient Disposition: Home, Self-Care Instructions: Anemia (ED) Additional Instructions: The packing was removed from your nose today. PLEASE DO NOT TOUCH YOUR NOSE, PICK HER NOSE, INSERT ANYTHING INTO YOUR NOSE, AVOID BLOWING YOUR NOSE, SNEEZING, COUGHING OR ANY INCREASED PRESSURE TO YOUR FACE If you rebleed apply direct pressure for 15 minutes without letting go. If this does not resolve bleeding return to the emergency department Your blood count has dropped today in the emergency department. You need repeat labs outpatient in 5-7 days with her primary care doctor You also should follow up with gastroenterology, call to make an appointment If you develop bloody or black stool return to the ED immediately. If you develop lightheadedness/dizziness or chest pain return to the ED Prescriptions: No Action clopidogrel 75 mg tablet 75 mg PO DAILY Qty: 90 3RF lidocaine HCl 2 % cream 1 appl topical .at bedtime 28 Days Qty: 118 0RF amlodipine 2.5 mg tablet 2.5 mg PO DAILY 90 Days Qty: 90 3RF pantoprazole 40 mg tablet,delayed release (DR/EC) 40 mg PO BID Qty: 60 3RF Rx Instructions: Please discontinue the once daily dosing and replace with this new script. sucralfate 100 mg/mL suspension 10 ml PO BID Qty: 600 2RF docusate sodium [Colace] 100 mg capsule 100 mg PO DAILY Qty: 90 0RF betamethasone valerate 0.1 % Cream 1 appl TOPICAL DAILY levetiracetam [Keppra] 750 mg Tablet 750 mg PO BID Systane (PF) 0.4-0.3 % Dropperette 1 drp OPHTHALMIC (EYE) BID simethicone 125 mg Tablet,Chewable 125 mg PO TID PRN (Reason: GAS/BLOATING) oxycodone-acetaminophen 5-325 mg tablet 1 tab PO BID PRN (Reason: Pain (Scale Score 7-10)) latanoprost 0.005 % drops 1 drp ophthalmic (eye) BEDTIME albuterol sulfate 90 mcg/actuation HFA aerosol inhaler 2 puff inhalation Q4H PRN (Reason: Respiratory Distress) metformin 500 mg tablet 500 mg PO BID magnesium 250 mg tablet 500 mg PO DAILY milk thistle 500 mg capsule 500 mg PO BID Rx Instructions: give with meal/snack atorvastatin 40 mg tablet 40 mg PO DAILY Myrbetriq 50 mg tablet extended release 24 hr 50 mg PO DAILY levothyroxine 112 mcg tablet 112 mcg PO DAILY biotin 5 mg capsule 5 mg PO DAILY fluticasone propion-salmeterol [Advair HFA] 230-21 mcg/actuation HFA aerosol inhaler 2 puff inhalation Q12H Qty: 12 3RF trospium 60 mg capsule,extended release 24hr 60 mg PO DAILY melatonin 5 mg tablet 10 mg PO .hs ferrous sulfate [Iron (ferrous sulfate)] 325 mg (65 mg iron) tablet 325 mg PO DAILY Benefiber Sugar Free (dextrin) 3 gram/4 gram powder in packet 1.5 g PO BID Rx Instructions: mix into at least 4 oz water or juice before administering Referrals: [facility] [Provider Group] - 1 week Name,MD Eddie [Primary Care Provider] - 5 days Print Language: Iranian
--- OUTSIDE RECORDS SUMMARY | 2024-09-28 15:15 | XMS_ITS | Encounter Summary ---
Author Organization [employer] Address [address] [place] [address] 7 [place] [address] Care Team Providers Care Tutor Name Role Phone Name, Eddie GILMORE Primary Care Provider [phone] Reason for Visit * Reason Onset Date Comments Call Back Request 09/19/2024 Encounter Details Date Type Department Care Team ([facility] st Contact Info) Description 09/19/2024 Telephone [facility] [address] [place] [address] Name, MD Eddie [address] [place], [place] [phone] Call Back Request Social History Tobacco Use [...] your housing situation today? I have abad bridgse 02/05/[address] you li [...] referral is supposed to be sent to [place] so that they can approve it. Per addictions recovery specialist Good morning, I submitted a prior [...] to Dr. Medina neurologyoffice to discuss further. Transfer And Pumphouse Operator reports pt had their last appt on March 25 of last year and it looks like they did not have a referral at that time. Advised the carpet cutter a referral wassent out on our end on 02/05/24 and carpet cutter reports they most likely never received. They report we can discuss further with Phyllis who is apart of the billing apartment but they are not here today. Phyllis will be at their office on Monday, Monday and . Message forwarded to team nurse box to follow up with the billing department on Monday. Message forwarded to addictions recovery specialist jarek ROLAND. * Telephone Encounter - Will Badillo - 09/19/2024 10:10 AM EDT Tc from pt requesting a call back regarding referral for Neurology. Contact pt at [phone] documented in this encounter Plan of Treatment Upcoming Encounters Date Type Department Care Team (Late st Contact Info) Description 10/29/2024 2:30 PM EDT Office Visit [facility] [address] [place] [address] Name, MD Eddie [address] [place] [address] 11/12/2024 9:45 AM EDT Office Visit [facility] [address] [place] [address] documented as of this encounter Visit Diagnoses Not on filedocumented in this encounter Additional Health Concerns Assessment Noted Time PHQ-9 Depression Total Score: 9 05/10/20 24 11:56 AM EST documented as of this encounter Care Teams Tutor Relationship Specialty Start Date End Date Name, MD Eddie [address] [place] [address] PCP - General Family Medicine 09/16/15 [place] SEN 07/01/24 documented as of this encounter
--- OUTSIDE RECORDS SUMMARY | 2024-09-28 15:16 | XMS_ITS | Encounter Summary ---
Author Organization [employer] Address [address] [place] [address] 7 [place] [address] Care Team Providers Care Slope Runner Name Role Phone Name, Eddie GILMORE Primary Care Provider [phone] Reason for Visit * Reason Onset Date Comments Durable Medical Equipment 09/24/2024 Hip pr otectors Encounter Details Date Type Department Care Team ([facility] st Contact Info) Description 09/24/2024 Telephone [facility] [address] [place], [place] [phone] Name, MD Eddie [address] [place] [address] Durable Medical Equipment (Hip protectors) Social History [...] DME request received for hip protectors from [facility] . Please advise if agree with DME request. Thank you documented in this encounter Plan of Treatment Upcoming Encounters Date Type Department Care Team (Late st Contact Info) Description 10/29/2024 2:30 PM EDT Office Visit [facility] [address] [place] [address] Name, MD Eddie [address] [place] [address] 11/12/2024 9:45 AM EDT Office Visit [facility] [address] [place] [address] documented as of this encounter Visit Diagnoses Not on filedocumented in this encounter Additional Health Concerns Assessment Noted Time PHQ-9 Depression Total Score: 9 05/10/20 24 11:56 AM EST documented as of this encounter Care Teams Slope Runner Relationship Specialty Start Date End Date Name, MD Eddie [address] [place] [address] PCP - General Family Medicine 09/16/15 [place] SEN 07/01/24 documented as of this encounter
--- OUTSIDE RECORDS SUMMARY | 2024-09-28 15:16 | XMS_ITS | Encounter Summary ---
Author Organization [employer] Address [address] [place] [address] [place] [address] Care Team Providers Care Chief Marketing Officer Name Role Phone Name, Eddie GILMORE Primary Care Provider [phone] Reason for Visit * Reason Onset Date Comments Hospital Follow-up 11/10/2022 Encounter Details Date Type Department Care Team (Late st Contact Info) Description 11/10/2022 Refill [facility] [address] [place], [place] [phone] Name, MD Eddie 230 [place] [address] Social History Tobacco Use Types Packs/Day Years [...] Jackman Sent: 11/21/2022 5:23 PM EDT To: [facility] Team Nurses Hi team! Sent this pt to the ED over the weekend for Hgb 7. Got admitted and looks like recently discharged. Can you please outreach her for status check and sched HDF w/ Name? Thank you!! * Telephone Encounter - Suzette Singh RN - 11/22/2022 11:10 AM EDT T/C to [phone] to schedule HDF apt. No answer. LVM to call back on [phone]. ----- Message from Amber Roger RN sent at 11/22/2022 9:06 AM EDT ----- ----- Message ----- From: DENIS Jackman Sent: 11/21/2022 5:23 PM EDT To: [facility] Team Nurses [place] team! Sent this pt to the ED [...] PM EDT Office Visit [facility] [address] [place] [address] Eddie Marshall MD [address] [place] [address] 11/12/2024 9:45 AM EDT Office Visit [address] [address] documented as of this encounter Visit Diagnoses Not on filedocumented in this encounter Care Teams Chief Marketing Officer Relationship Specialty Start Date End Date Eddie Marshall MD [address] [place] [address] PCP - General Family Medicine 09/16/15 [place] SEN 07/01/24 documented as of this encounter
--- OUTSIDE RECORDS SUMMARY | 2024-09-28 15:16 | XMS_ITS | Encounter Summary ---
Author Organization [employer] Address [address] [facility] 7t [place] [address] Care Team Providers Care Web Marketing Coordinator Name Role Phone Name, Eddie GILMORE Primary Care Provider [phone] Reason for Visit * Reason Onset Date Comments ED follow up 09/27/2024 Encounter Details Date Type Department Care Team ([facility] st Contact Info) Description 09/27/2024 Telephone [facility] 230 [place], [place] [phone] Matilda Millan RN ED follow up Social History Tobacco Use Types Packs/Day Years [...] encounter Miscellaneous Notes * Telephone Encounter - Matilda Millan RN - 09/27/2024 11:43 AM EDT TC to pt. @[phone] to follow up component inspector center message as per below. VM left for pt to return call to [facility]. Per ED notes from 09/26: pt is to return to ED tomorrow Sat. 09/28 or Sun 09/29 for nasal packing removal. Will re attempt reaching pt for a f/u PCP OV for next week. Patient calling to report ED visit on : Date: 09/26/24 Hospital: [facility] Seen for: Nose bleeds Directions per [facility] ED 09/26/24 You were evaluated in the emergency room for a nose bleed. >>>Follow up with your primary care doctor and ENT in the next 5-7 days. >>>Please return to the emergency room for removal of your nasal packing in 48- 72 hours ontSaturday September 28, 2024 Sunday September 29, 2024. Return to the emergency room otherwise for any new concerns or symptoms. She states that she does take Plavix. Patient was given strict return precautions to return to the ED for any new or worsening symptoms including, but not limited to recurrence of epistaxis, lightheadedness, loss of consciousness, chest pain or dyspnea. She and son were recommended to come back to the ER or an urgent care for nasal packing removal in 48-72 hours. They were made aware of risk of infection should there be delay in nasal packing removal. documented in this encounter Plan of Treatment Upcoming Encounters Date Type Department Care Team (Late st Contact Info) Description 10/29/2024 2:30 PM EDT Office Visit [facility] [place] [address] Name, [place] [address] 11/12/2024 9:45 AM EDT Office Visit [facility] [place] [address] documented as of this encounter Visit Diagnoses Not on filedocumented in this encounter Additional Health Concerns Assessment Noted Time PHQ-9 Depression Total Score: 9 05/10/20 24 11:56 AM EST documented as of this encounter Care Teams Web Marketing Coordinator Relationship Specialty Start Date End Date Name, [place] [address] PCP - General Family Medicine 09/16/15 [place] [facility]NA 07/01/24 documented as of this encounter
--- OUTSIDE RECORDS SUMMARY | 2024-09-28 15:16 | XMS_ITS | Encounter Summary ---
Author Organization [employer] Address [address] [place] [address] 7 [place] [address] Care Team Providers Care Manager Of Revenue Name Role Phone Name, Eddie GILMORE Primary Care Provider [phone] Reason for Visit * Reason Onset Date Comments Active Med List 06/28/2023 Encounter Details Date Type Department Care Team ([facility] st Contact Info) Description 06/28/2023 Telephone [facility] [address] [place], [place] [phone] Name, MD Eddie [address] [place] [address] Active Med List Social History Tobacco Use [...] Be requesting a updated active medication list sign writer letterer or painter did attempt to transfer to Medical records so that she can obtain this information but they kept transferring back to the call center. [facility] [address], [place], [place] [phone] documented in this encounter Plan of Treatment Upcoming Encounters Date Type Department Care Team (Late st Contact Info) Description 10/29/2024 2:30 PM EDT Office Visit [facility] [address] [place] [address] Name, MD Eddie [address] [place] [address] 11/12/2024 9:45 AM EDT Office Visit [facility] [address] [place] [address] documented as of this encounter Visit Diagnoses Not on filedocumented in this encounter Additional Health Concerns Assessment Noted Time PHQ-9 Depression Total Score: 10 023 1:16 PM EDT documented as of this encounter Care Teams Manager Of Revenue Relationship Specialty Start Date End Date Name, MD Eddie [address] [facility] [address] PCP - General Family Medicine 09/16/15 [place] SEN 07/01/24 documented as of this encounter
--- OUTSIDE RECORDS SUMMARY | 2024-09-28 15:16 | XMS_ITS | Encounter Summary ---
Author Organization [employer] Address [address] [place] [address] 7 [place] [address] Care Team Providers Care Deep Submergence Vehicle Operator Name Role Phone Name, Eddie GILMORE Primary Care Provider [phone] Reason for Visit * Reason Comments Med Refill Encounter Details Date Type Department Care Team (Late st Contact Info) Description 05/08/2023 Refill [facility] [address] [place], [place] [phone] Name, MD Eddie [address] [place], [place] [phone] Chronic pain syndrome Social History Tobacco Use [...] 10/29/2024 2:30 PM EDT Office Visit [address] [address] NameEddie MD [address] [place] [address] 11/12/2024 9:45 AM EDT Office Visit [address] [address] documented as of this encounter Visit Diagnoses Diagnosis Chronic pain syndrome documented in this encounter Additional Health Concerns Assessment Noted Time PHQ-9 Depression Total Score: 10 023 1:16 PM EDT documented as of this encounter Care Teams Deep Submergence Vehicle Operator Relationship Specialty Start Date End Date NameEddie MD [address] [place] [address] PCP - General Family Medicine 09/16/15 [place] [facility] 07/01/24 documented as of this encounter
--- OUTSIDE RECORDS SUMMARY | 2024-09-28 15:16 | XMS_ITS | Encounter Summary ---
Author Organization [employer] Address [address] [place] [address] 7 [place] [address] Care Team Providers Care Case Therapist Name Role Phone Name, Eddie GILMORE Primary Care Provider [phone] Reason for Visit * Reason Onset Date Comments Medication Question 09/01/2023 Encounter Details Date Type Department Care Team ([facility] [facility] st Contact Info) Description 09/01/2023 Telephone [facility] [address] [place], [place] [phone] Name, MD Eddie [address] [place] [address] Medication Question Social History Tobacco Use Types [...] an add on. Please contact pharmacy at [phone]. documented in this encounter Plan of Treatment Upcoming Encounters Date Type Department Care Team (Late st Contact Info) Description 10/29/2024 2:30 PM EDT Office Visit [facility] [place] [address] Name, [place] [address] 11/12/2024 9:45 AM EDT Office Visit [facility] [place] [address] documented as of this encounter Visit Diagnoses Not on filedocumented in this encounter Additional Health Concerns Assessment Noted Time PHQ-9 Depression Total Score: 10 023 1:16 PM EDT documented as of this encounter Care Teams Case Therapist Relationship Specialty Start Date End Date Name, [place] [address] PCP - General Family Medicine 09/16/15 [place] A 07/01/24 documented as of this encounter
--- OUTSIDE RECORDS SUMMARY | 2024-09-28 15:16 | XMS_ITS | Encounter Summary ---
Author Organization [facility] [employer] Address [address] [place] [address] 7 [place] [address] Care Team Providers Care Pyrometer Temperature Regulator Name Role Phone NameEddie MD Primary Care Provider [phone] Reason for Visit * Reason Comments Med Refill Encounter Details Date Type Department Care Team (Late Contact Info) Description 02/26/2023 Refill [facility] [address] [place] [address] [phone] NameEddie MD [address] [place] [address] [phone] Chronic pain syndrome Social History Tobacco Use [...] Description 10/29/2024 2:30 PM EDT Office Visit [facility] [address] [place] [address] [phone] Eddie Marshall MD [address] [place] [address] [phone] 11/12/2024 9:45 AM EDT Office Visit [facility] [address] [place] [address] documented as of this encounter Visit Diagnoses Diagnosis Chronic pain syndrome documented in this encounter Additional Health Concerns Assessment Noted Time PHQ-9 Depression Total Score: 10 023 1:16 PM EDT documented as of this encounter Care Teams Pyrometer Temperature Regulator Relationship Specialty Start Date End Date Name, MD Eddie [address] [place] [address] PCP - General Family Medicine 09/16/15 [place] A 07/01/24 documented as of this encounter
--- OUTSIDE RECORDS SUMMARY | 2024-09-28 15:16 | XMS_ITS | Encounter Summary ---
Author Organization [employer] Address [address] [place] [address] 7 [place] [address] Care Team Providers Care Farrowing Manager Name Role Phone Name, Eddie GILMORE Primary Care Provider [phone] Reason for Visit * Reason Onset Date Comments Referral 02/02/2023 Back dated refer ral Encounter Details Date Type Department Care Team ([facility] st Contact Info) Description 02/02/2023 Telephone [facility] [address] [place], [place] [phone] Name, MD Eddie [address] [place] [address] Referral (Back dated referral ) Social History [...] 1:40 PM EDT Tc from Kasie at [facility] requesting status on message below regarding referral. Fax number [phone]. Any questions please call [phone] * Telephone Encounter - Amber Roger RN - 02/03/2023 10:34 AM EDT Please review message below regarding backdated referral for these dates * Telephone Encounter - Laure Mcgill - 02/02/2023 2:07 PM EDT Tc from Kasie at [facility] calling in regards to referral needing to be back dated. Patient was seen at the office on 01/03/23 and 01/11/23. Fax number [phone]. Any questions please call [phone]. documented in this encounter Plan of Treatment Upcoming Encounters Date Type Department Care Team (Late st Contact Info) Description 10/29/2024 2:30 PM EDT Office Visit [address] [address] Name, MD Eddie [address] [place] [address] 11/12/2024 9:45 AM EDT Office Visit [address] [address] documented as of this encounter Visit Diagnoses Not on filedocumented in this encounter Additional Health Concerns Assessment Noted Time PHQ-9 Depression Total Score: 10 023 1:16 PM EDT documented as of this encounter Care Teams Farrowing Manager Relationship Specialty Start Date End Date Name, MD Eddie [address] [place] [address] PCP - General Family Medicine 09/16/15 [place] SEN 07/01/24 documented as of this encounter
--- OUTSIDE RECORDS SUMMARY | 2024-09-28 15:16 | XMS_ITS | Encounter Summary ---
Author Organization [employer] Address [address] [place] [address] 7 [place] [address] Care Team Providers Care Content Developer Name Role Phone Name, Eddie GILMORE Primary Care Provider [phone] Reason for Visit * Reason Comments Med Refill Encounter Details Date Type Department Care Team (Late Contact Info) Description 01/04/2023 Refill [facility] [address] [place] [address] [phone] Name, MD Eddie [address] [place] [address] Gastroesophageal reflux disease, unspecified whether esophagitis present [...] Description 10/29/2024 2:30 PM EDT Office Visit [facility] [address] [facility] [place] [address] Name, [place] [address] 11/12/2024 9:45 AM EDT Office Visit [facility] [place] [address] documented as of this encounter Visit Diagnoses Diagnosis Gastroesophageal reflux disease, unspecified whether esophagitis present documented in this encounter Additional Health Concerns Assessment Noted Time PHQ-9 Depression Total Score: 10 023 1:16 PM EDT documented as of this encounter Care Teams Content Developer Relationship Specialty Start Date End Date Name, [place] [address] PCP - General Family Medicine 09/16/15 [place] [facility] 07/01/24 documented as of this encounter
--- OUTSIDE RECORDS SUMMARY | 2024-09-28 15:16 | XMS_ITS | Encounter Summary ---
Author Organization [employer] Address [address] [place] [address] 7 [place] [address] Care Team Providers Care Aws Software Development Engineer Name Role Phone Name, Eddie GILMORE Primary Care Provider [phone] Reason for Visit * Reason Comments Med Refill Encounter Details Date Type Department Care Team (Late st Contact Info) Description 06/18/2023 Refill [facility] 230 [place], [place] [phone] Name, MD Eddie 230 [place], [place] [phone] Chronic pain syndrome Social History Tobacco Use [...] Description 10/29/2024 2:30 PM EDT Office Visit [address] [address] NameEddie MD [address] [place] [address] 11/12/2024 9:45 AM EDT Office Visit [address] [address] documented as of this encounter Visit Diagnoses Diagnosis Chronic pain syndrome documented in this encounter Additional Health Concerns Assessment Noted Time PHQ-9 Depression Total Score: 10 023 1:16 PM EDT documented as of this encounter Care Teams Aws Software Development Engineer Relationship Specialty Start Date End Date NameEddie MD [address] [place] [address] PCP - General Family Medicine 09/16/15 [place] [facility] 07/01/24 documented as of this encounter
--- OUTSIDE RECORDS SUMMARY | 2024-09-28 15:16 | XMS_ITS | Encounter Summary ---
Author Organization [employer] Address [address] [place] [address] [place] [address] Care Team Providers Care Gate Supervisor Name Role Phone Name, Eddie GILMORE Primary Care Provider [phone] Reason for Visit * Reason Comments Med Refill Encounter Details Date Type Department Care Team (Late st Contact Info) Description 01/29/2023 Refill [facility] [address] [place] [address] [phone] Farhana Singh FNP [address] [place] [address] Dept [place] [address] Social History Tobacco Use Types Packs/Day Years [...] Visit [facility] [address] [place] [address] [phone] Name, MD Eddie [address] [place] [address] [phone] 11/12/2024 9:45 AM EDT Office Visit [facility] [address] [facility] [place] [address] documented as of this encounter Visit Diagnoses Not on filedocumented in this encounter Additional Health Concerns Assessment Noted Time PHQ-9 Depression Total Score: 10 11/28/ 023 1:16 PM EDT documented as of this encounter Care Teams Gate Supervisor Relationship Specialty Start Date End Date Name, MD Eddie 230 [facility] [place] [address] PCP - General Family Medicine 09/16/15 [place] [facility] 07/01/24 documented as of this encounter
--- OUTSIDE RECORDS SUMMARY | 2024-09-28 15:16 | XMS_ITS | Encounter Summary ---
Author Organization [employer] Address [address] [facility] 7t [place] [address] Care Team Providers Care Diabetes Manager Name Role Phone Name, Eddie GILMORE Primary Care Provider [phone] Reason for Visit * Reason Onset Date Comments DME Transport Chair 09/24/2024 Encounter Details Date Type Department Care Team (Late st Contact Info) Description 09/24/2024 Telephone [facility] [address] [place], [place] [phone] Name, MD Eddie 230 [place] [address] DME Transport Chair Social History Tobacco Use [...] please advise them to contact [facility] at [phone]. * Telephone Encounter - Kathy Nina MA - 09/24/2024 9:30 AM EDT DME for transport chair from [facility] received and is being processed. Placed on provider's desk for signature. documented in this encounter Plan of Treatment Upcoming Encounters Date Type Department Care Team (Late st Contact Info) Description 10/29/2024 2:30 PM EDT Office Visit [facility] [address] [place] [address] Name, MD Eddie [address] [place] [address] 11/12/2024 9:45 AM EDT Office Visit [facility] [address] [place] [address] documented as of this encounter Visit Diagnoses Not on filedocumented in this encounter Additional Health Concerns Assessment Noted Time PHQ-9 Depression Total Score: 9 05/10/20 24 11:56 AM EST documented as of this encounter Care Teams Diabetes Manager Relationship Specialty Start Date End Date Name, MD Eddie 230 [place] [address] PCP - General Family Medicine 09/16/15 [place] [facility] 07/01/24 documented as of this encounter
--- OUTSIDE RECORDS SUMMARY | 2024-09-28 15:16 | XMS_ITS | Encounter Summary ---
Author Organization [employer] Address [address] [place] [address] 7 [place] [address] Care Team Providers Care Import Dispatcher Name Role Phone Name, Eddie GILMORE Primary Care Provider [phone] Reason for Visit * Reason Onset Date Comments Durable Medical Equipment 09/26/2024 Encounter Details Date Type Department Care Team ([facility] st Contact Info) Description 09/26/[address] [facility] [address] [place], [place] [phone] Name, MD Eddie [address] [place] [address] Durable Medical Equipment Social History Tobacco Use [...] - 09/26/2024 8:39 AM EDT Tc from [facility] requesting a Hip Protector. P. [phone] F. [phone] ( ATTENTION; KERMIT) documented in this encounter Plan of Treatment Upcoming Encounters Date Type Department Care Team (Late st Contact Info) Description 10/29/2024 2:30 PM EDT Office Visit [address] [address] Name, MD Eddie [address] [place] [address] 11/12/2024 9:45 AM EDT Office Visit [address] [address] documented as of this encounter Visit Diagnoses Not on filedocumented in this encounter Additional Health Concerns Assessment Noted Time PHQ-9 Depression Total Score: 9 05/10/20 24 11:56 AM EST documented as of this encounter Care Teams Import Dispatcher Relationship Specialty Start Date End Date Name, MD Eddie [address] [place] [address] PCP - General Family Medicine 09/16/15 Jer[place] SEN 07/01/24 documented as of this encounter
--- OUTSIDE RECORDS SUMMARY | 2024-09-28 15:16 | XMS_ITS | Encounter Summary ---
Author Organization [employer] Address [address] [place] [address] 7 [place] [address] Care Team Providers Care Curriculum Writer Name Role Phone Name, Eddie GILMORE Primary Care Provider [phone] Reason for Visit * Reason Comments Med Refill Encounter Details Date Type Department Care Team (Late Contact Info) Description 12/01/2022 Refill [facility] 230 [place], [place] [phone] Name, MD Eddie [address] [place] [address] Controlled type 2 diabetes mellitus with complication, without long-term current use of insulin ([facility]) Social History Tobacco Use Types Packs/Day Years [...] EDT Office Visit [facility] [place] [address] Name, MD Eddie [facility] [place] [address] 11/12/2024 9:45 AM EDT Office Visit [facility] [place] [address] documented as of this encounter Visit Diagnoses Diagnosis Controlled type 2 diabetes mellitus with complication, without long-term current use of insulin ([facility]) documented in this encounter Additional Health Concerns Assessment Noted Time PHQ-9 Depression Total Score: 10 023 1:16 PM EDT documented as of this encounter Care Teams Curriculum Writer Relationship Specialty Start Date End Date Name, [place] [address] PCP - General Family Medicine 09/16/15 Jerica BURGOSA 07/01/24 documented as of this encounter
--- OUTSIDE RECORDS SUMMARY | 2024-09-28 15:16 | XMS_ITS | Encounter Summary ---
Author Organization [employer] Address [address] [place] [address] 7t [place] [address] Care Team Providers Care Renal Medicine Specialist Name Role Phone Name, Eddie GILMORE Primary Care Provider [phone] Encounter Details Date Type Department Care Team ([facility] st Contact Info) Description 12/07/2022 Telephone [facility] 230 [place], [place] [phone] Name, MD Eddie 230 [place] [address] Social History Tobacco Use Types Packs/Day Years [...] update PCP now. Ordering provider Pierce Pillai DONOR SPECIALIST Follow with fredyn as indicated. Results faxed at time of call to [phone]. Ref.# [id number] C documented in this encounter Plan of Treatment Upcoming Encounters Date Type Department Care Team (Late st Contact Info) Description 10/29/2024 2:30 PM EDT Office Visit [facility] [address] [place] [address] Name, MD Eddie [address] [place] [address] 11/12/2024 9:45 AM EDT Office Visit [address] [address] documented as of this encounter Visit Diagnoses Not on filedocumented in this encounter Additional Health Concerns Assessment Noted Time PHQ-9 Depression Total Score: 10 023 1:16 PM EDT documented as of this encounter Care Teams Renal Medicine Specialist Relationship Specialty Start Date End Date Name, MD Eddie [address] [place] [address] PCP - General Family Medicine 09/16/15 Serena VNA 07/01/24 documented as of this encounter
--- OUTSIDE RECORDS SUMMARY | 2024-09-28 15:16 | XMS_ITS | Data Portability ---
Author Organization MD - [facility], [facility] Address [address] [place] [address] Care Team Providers Care Head Banquet Waitress Name Role Phone NAME, DELIA Primary Care Provider [phone] Assessment Encounter Date Assessment Date Assessment LastModified [...] Organization Details Recorded Time Essential hypertens ion 58083541 Active 2014 Essential (primary) hypertensi on; Note: Date Diagnosed: 05/07/2015 9:43 AM (I10) Not Available [facility] 02:37:47 Bleeding from nose 722047692 Active 2014 Epistaxis; Note: Date Diagnosed: 05/07/2015 9:43 AM (R04.0) Not Available [employer] 4 02:37:50 Anterior epistaxis 543710905 Active 2024 YANIV GARCIA MD [address] [facility],[place] [address], [place], [address] , [facility] 5 12:32:29 Problem Notes None recorded. Procedures Surgical History Date Name Laterality Status Provider Name and Address Organization Details Recorded Time 5 Epistaxis Simple Nasal Cautery Right completed YANIV GARCIA MD [address] [facility], [place], [address], [facility] 08/11/2024 12:31:38 Imaging Results None recorded. Procedure Notes None recorded. Medical Equipment None Reported. Allergies Allergen ID Allergen Name Allergen Category Reaction Reaction Severity Criticality Documentation Date Start Date Code Code System Note Provider Name and Address Organization Details Recorded Time 49408 atorvasta tin medicatio n other Not available Not available 10/31/2023 96934 RxNorm React ion: unkno wn, unspe cifie d;; Not Available [facility] 4 00:59:20 Medications Name Sig Start Date [...] 24 hr 08/09 completed Medicati on ID: 160084 D uration Value: 90 Brand Name: oxybutyn in chloride Send Method: E-Prescr ibed Sub s Allowed: subs OK Speci al Instruct ion: TAKE 1 TABLET BY MOUTH EVERY DAY Medi cationGe nericNam e: oxybutyn in chloride Not Available Not Available Not Available Patanol 0.1 % eye drops 08/09 completed Medicati on ID: 629577 B rand Name: Patanol Send Method: E-Prescr [...] layed release 08/09 completed Medicati on ID: 226942 B rand Name: aspirin Send Method: E-Prescr ibed Sub s Allowed: subs OK Medic ationGen ericName : aspirin Not Available Not Available Not Available tramadol 50 mg tablet 2014 active Medicati on ID: 391331 D uration Value: 28 Brand Name: tramadol Send Method: E-Prescr ibed Sub s Allowed: subs OK Speci al Instruct ion: TAKE 1 TABLET BY MOUTH EVERY 8 HOURS NEEDED FOR PAIN Med icationG enericNa me: tramadol Not Available Not Available Not Available nortripty line 25 mg capsule 08/09 completed Medicati on ID: 208491 D uration Value: 90 Brand Name: nortript yline Se nd Method: E-Prescr ibed Sub s Allowed: subs OK Speci al Instruct ion: TAKE 3 CAPSULES BY MOUTH AT BEDTIME Medicati onGeneri cName: nortript yline Not Available Not Available Not Available levothyro xine 100 mcg tablet 08/09 completed Medicati on ID: [id number] D uration Value: 90 Brand Name: levothyr [...] elayed release 2014 active Medicati on ID: 218833 D uration Value: 90 Brand Name: omeprazo [...] ne propionat e 50 mcg/actua tion nasal spray,[facility] 2013 active Medicati on ID: 433940 D uration Value: 30 Brand Name: fluticas one Send Method: E-Prescr ibed Sub s Allowed: subs ALESSIO Orantes al Instruct ion: SPRAY 2 SPRAYS INTO EACH NOSTRIL DAILY Me dication GenericN delmi: fluticas one Not Available Not Available Not Available loratadin e 10 mg tablet 08/09 completed Medicati on ID: 887572 D uration Value: 30 Brand Name: loratadi [...] 500 mg tablet active Medicati on ID: [id number] B rand Name: Tylenol Extra Strength Send [...] Updated DateTime 09/06/2024 157.48 cm 25.4 kg/m2 31060.34 g KELLY NAFISA MD - [facility] 09/06/2024 13:28:14 Social History None recorded. Functional Status None recorded. Mental Status None recorded. Family History Nothing Reported. Medical History Condition Response Heart Attack ([place]) Y Anemia Y Stroke Y Hypertension Y Asthma Y Gynecological HistoryNo gynecological history recorded. Obstetrics History GPAL:G 0 P 0 0 0 0 Past Encounters Encounter ID Performer Location Encounter Start Date Encounter Closed Date Diagnosis/Indication Diagnosis SNOMED-CT Code Diagnosis ICD10 Code Diagnosis Note [id number] YANIV GARCIA MD [facility] [address] [address] 08/09/2024 09:39:15 08/09/2024 11:07:17 Anterior epistaxis 759414176 R04.0 78-year-ol d female with a history [...] for cautery on the left. Essential hypertension 76931970 I10 Long-term current use of antiplatelet drug 4680492700 62937 Z79.02 [id number] YANIV GARCIA MD [facility] [address] [place] [address] 09/06/2024 13:16:33 09/06/2024 13:54:17 Anterior epistaxis 269058465 R04.0 Bleeding from nose 620[address] 6005 R04.0 Essential hypertension 57383002 I10 Health Concerns Section Related Observation LastModified by Organization Detai ls LastModified Time None Recorded Concern Status LastModified by Organization Details LastModified Time None Recorded Advance Directives Directive None Recorded Payers Encounter Date Sequence Insurance Name Policy Number Policy Zapata Covered Member ID Zapata Member ID Guarantor Name 08/09/2024 1 [facility] (MEDICAID HMO) Celeste Abad [id number] Celeste Abad 09/06/2024 1 [facility] (MEDICAID HMO) Celeste Abad [id number] Celeste Abad Notes Date Note Type Note [...] able to stop them YANIV GARCIA MD [address] [place] [address],[address], [address], [place] - [facility] 08/11/2024 12:36:32 09/06/2024 text/html 78yo female with hypertension on clopidogrel presents for reevaluation of right recurrent nosebleeds. Right septum cauterized 08/09/[address] Garcia. Patient reports persistent recurrent right-sided nasal bleeding every couple days. Most recent episode 3 days ago, managed quickly with nasal cease. She is in the process of scheduling iron transfusions through [facility]. She was recently diagnosed with emphysema. She continues to touch the nose frequently. YANIV GARCIA MD [address] [facility],[address], [address], [facility] - [facility] 09/06/2024 17:25:55 OBGyn Episode No OBEpisode recorded.
--- OUTSIDE RECORDS SUMMARY | 2024-09-28 15:16 | XMS_ITS | Encounter Summary ---
Author Organization [employer] Address [address] [place] [address] 7 [place] [address] Care Team Providers Care Director Of Staff Development Name Role Phone Name, Eddie GILMORE Primary Care Provider [phone] Reason for Visit * Reason Onset Date Comments Medication Question 09/05/2023 Encounter Details Date Type Department Care Team ([facility] st Contact Info) Description 09/05/2023 Telephone [facility]INE [address] [place], [place] [phone] Name, MD Eddie 230 [place] [address] Medication Question Social History Tobacco Use Types [...] Visit [facility] [address] [place] [address] Name, MD Eddie [address] [place] [address] 11/12/2024 9:45 AM EDT Office Visit [facility] [address] [place] [address] documented as of this encounter Visit Diagnoses Not on filedocumented in this encounter Additional Health Concerns Assessment Noted Time PHQ-9 Depression Total Score: 10 11/28/ 023 1:16 PM EDT documented as of this encounter Care Teams Director Of Staff Development Relationship Specialty Start Date End Date Name, MD Eddie 230 [facility] [place] [address] PCP - General Family Medicine 09/16/15 Jerica SEN 07/01/24 documented as of this encounter
--- OUTSIDE RECORDS SUMMARY | 2024-09-28 15:16 | XMS_ITS | Encounter Summary ---
Author Organization [facility] [employer] Address [address] [place] [address] 7 [place] [address] Care Team Providers Care Milieu Counselor Name Role Phone Name, Eddie GILMORE Primary Care Provider [phone] Encounter Details Date Type Department Care Team ([facility] Contact Info) Description 11/18/[address] [facility] MEDICINE [address] [place] [phone] Name, MD Eddie [address] [place] [phone] Social History Tobacco Use Types Packs/Day Years [...] Upcoming Encounters Date Type Department Care Team ([facility] Contact Info) Description 10/29/2024 2:30 PM EDT Office Visit [facility] MED[facility]INE [address] [place] [address] Name, MD Eddie [address] [place] [address] [phone] 11/12/2024 9:45 AM EDT Office Visit [facility] MED[facility]INE 230 [place] [address] documented as of this encounter Visit Diagnoses Not on filedocumented in this encounter Care Teams Milieu Counselor Relationship Specialty Start Date End Date Name, MD Eddie [address] [place] [address] PCP - General Family Medicine 09/16/15 Jerica A 07/01/24 documented as of this encounter
--- OUTSIDE RECORDS SUMMARY | 2024-09-28 15:16 | XMS_ITS | Encounter Summary ---
Author Organization [employer] Address [address] [place] [address] 7 [place] [address] Care Team Providers Care Candlemaker Name Role Phone Name, Eddie GILMORE Primary Care Provider [phone] Reason for Visit * Reason Onset Date Comments ER Follow-up 09/27/2024 Encounter Details Date Type Department Care Team ([facility] st Contact Info) Description 09/27/2024 Telephone [facility] MED[facility]INE 230 [place], [place] [phone] Name, MD Eddie 230 [place] [address] ER Follow-up Social History Tobacco Use Types [...] encounter Miscellaneous Notes * Telephone Encounter - Rand Guzmán - 09/27/2024 11:27 AM EDT Patient calling to report ED visit on : Date: 09/26/24 [facility]: [facility] Seen for: Nose bleeds Symptomatic yes . States has some bleeding *if yes message should go to Triage Patient advised will forward to team nurse for follow up Pt inform currently has a balloon sinuplasty and will need to be removed by 09/29/24 documented in this encounter Plan of Treatment Upcoming Encounters Date Type Department Care Team (Late st Contact Info) Description 10/29/2024 2:30 PM EDT Office Visit [facility] MED[facility]INE [address] [place] [address] Eddie Marshall MD [address] [place] [address] 11/12/2024 9:45 AM EDT Office Visit [facility] [address] [place] [address] documented as of this encounter Visit Diagnoses Not on filedocumented in this encounter Additional Health Concerns Assessment Noted Time PHQ-9 Depression Total Score: 9 05/10/20 24 11:56 AM EST documented as of this encounter Care Teams Candlemaker Relationship Specialty Start Date End Date Eddie Marshall MD [address] [place] [address] PCP - General Family Medicine 09/16/15 Jerica SEN 07/01/24 documented as of this encounter
[2024-09-28 16:07] LABS: MANUAL DIFF FLAG NO
[2024-09-28 16:09] LABS: Basophils Percent Auto 0.5 % (0-2); Eosinophils Absolute Auto 0.2 X10*3/uL (0.0-0.4); Eosinophils Percent Auto 2.3 % (0-4); Hematocrit 28.2 % (37.0-47.0); Hemoglobin 8.5 g/dl (12.0-16.0); Imm Gran Abs Auto 0.03 X10*3/uL (0.00-0.03); Imm Gran Pct Auto 0.4 % (0.0-0.4); Lymphocytes Absolute Auto 1.6 X10*3/uL (1.2-4.9); Mean Corpuscular HGB Conc 30.1 g/dl (31.0-35.0); Mean Corpuscular Hemoglobin 23.7 pg (27.0-33.0); Mean Corpuscular Volume 78.8 fL (80.0-98.0); Mean Platelet Volume 9.4 fL (9.4-12.3); Monocytes Absolute Auto 0.8 X10*3/uL (0.1-1.2); Monocytes Percent Auto 10.3 % (2-11); Neutrophils Absolute Auto 5.4 x10*3/uL (2.0-8.3); Neutrophils Percent Auto 66.5 % (45-73); Platelet Count 344 X10*3/uL (160-400); Red Blood Count 3.58 X10*6/uL (4.20-5.50); Red Cell Distribution Width 18.2 % (11.0-16.0); White Blood Count 8.2 X10*3/uL (4.8-10.8)
[2024-09-28 16:31] LABS: Prothrombin Time 11.6 SEC (10.9-12.4)
[2024-09-28 16:35] LABS: Anion Gap 13 (12-20); Blood Urea Nitrogen 21 mg/dL (9-16); Calcium 9.2 mg/dL (8.4-10.2); Carbon Dioxide 25 mmol/L (22-29); Chloride 104 mmol/L (96-108); Creatinine Clr Calc Pharmacy 62.2; Estimated Glomerular Filt Rate > 60; Glucose Random 131 mg/dL (60-115); Potassium 4.2 mmol/L (3.3-5.1); Sodium 138 mmol/L (135-145)
[2024-09-28 17:22] LABS: OBS Int Ctl Valid YES; OBS1 NEGATIVE (NEGATIVE)
[2024-09-28 17:40] VITALS: BP 128/59; PULSE 97; RESP 16; TEMP 36.4; O2SAT 94
== END 2024-09-28 17:49 | disposition home or self-care (01) ==
PROVIDERS: Physician Assistant; Emergency Provider Emergency Medicine Emergency Medical Services; PCP Internal Medicine Geriatric Medicine
DX: R04.0 Epistaxis (principal); Z48.00 Encounter for change or removal of nonsurgical wound dressing; Z79.899 Other long term (current) drug therapy; Z87.891 Personal history of nicotine dependence
CPT/HCPCS: 36415; 80048; 82272; 85025; 85610; 99283; 99284

== ENCOUNTER 2024-09-30 10:52 | Outpatient (REF) | payer MEDICARE, SELFPAY ==
--- OUTSIDE RECORDS SUMMARY | 2024-09-30 12:48 | XMS_ITS | Clinical Summary ---
Author Organization [employer] Address [address] [place] [address] 7[address] [place] [address] Care Team Providers Care Italian Tutor Name Role Phone Name, Eddie GILMORE Primary Care Provider [phone] Allergies Active Allergy Reactions Criticality Noted Date [...] 06/01/20 22 Active Blood Glucose Monitoring Suppl ([employer] Verio Flex System) w/Device kit USE DIRECTED [...] in the morning. 01/10/20 23 Active Lancets ([employer] Delica Plus [id number]) miscIndications :Controlled type 2 diabetes mellitus with complication, without long-term current use of insulin ([facility]) USE TO CHECK BLOOD SUGAR TWICE A DAY 100 each 5 09/15/19 24 Active glucose blood ([employer] Verio) test stripIndication s:Controlled type 2 diabetes mellitus with complication, without long-term current use of insulin ([facility]) CHECK BY FINGERSTICK TWICE DAILY 50 [...] refer stat to ENT for cauterization, possible RERECORDING MIXER scope Recommend anterior nasal packing if she is bleeding heavily skilled nursing (current) use of opiate analgesic 03/20 Overview (09/10/2024): Dx: chronic pain syndrome/back pain Rx: Percocet 5/325 every 8 hours 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 She understands this is the chronic [...] Encounters Date Type Department Care Team Description 09/30/2024 Orders Only GENERIC EXTERNAL DATA DEPARTMENT Provider, Generic External Data 09/28/2024 Orders Only GENERIC EXTERNAL DATA DEPARTMENT Provider, Generic External Data 09/27/2024 Telephone [facility] [address] [place] [address] Matilda Millan, GOLF SALES ASSOCIATE follow up 09/27/[address] [address] Eddie Marshall MD ER Follow-up 09/26/2024 Telephone [facility] [address] [place] [address] Eddie Marshall MD Durable Medical Equipment 09/24/2024 Telephone [facility] [address] [place] [address] Eddie Marshall MD Durable Medical Equipment (Hip protectors) 09/24/2024 Telephone [facility] [address] [place] [address] Eddie Marshall MD DME Transport Chair 09/20/2024 Orders Only [facility] External Provider, [facility] 09/19/2024 Telephone [facility] [address] [place] [address] Eddie Marshall MD Call Back Request 09/15/2024 Refill [facility] [place] [address] Eddie Marshall MD 09/11/2024 Telephone [facility] [place] [address] Eddie Marshall MD Durable Medical Equipment 09/10/2024 9:45 AM EDT Office Visit [facility] [place] [address] Mckenzie Trent FNP Chronic pain syndrome (Primary Dx); 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 09/10/2024 Travel 09/09/2024 Telephone [facility] [place] [address] Eddie Marshall MD 09/05/2024 Refill [facility] [place] [address] Eddie Marshall MD Chronic pain syndrome 08/27/2024 Orders Only GENERIC EXTERNAL DATA DEPARTMENT Provider, Generic External Data 08/26/2024 Orders Only [facility] External Provider, [facility] 08/19/2024 Refill [facility] [place] [address] Eddie Marshall MD 08/14/2024 Orders Only GENERIC EXTERNAL DATA DEPARTMENT Provider, [facility] External Data 08/13/2024 Telephone [facility] [place] [address] Eddie Marshall MD Appointment Request 08/09/2024 Telephone [facility] [address] [place] [phone] Sophie Marie [place] september recalls 08/09/2024 Telephone [facility] [address] [place] [phone] Sophie Marie [place] september recalls 08/09/2024 Refill [facility] [place] [address] Eddie Marshall MD Chronic pain syndrome 08/02/2024 2:30 PM EST Office Visit [facility] [place] [address] Latanya Hoover MD Epistaxis (Primary Dx); Controlled type 2 diabetes mellitus with complication, without long-term current use of insulin ([facility]); Dietary counseling; Exercise counseling; Overweight; Anemia, unspecified type 08/02/2024 Travel 07/30/2024 Telephone [facility] [place] [address] Eddie Marshall MD ER Follow-up 07/23/2024 9:00 AM EST Office Visit [facility] [address] [place] [phone] Kelly Montoya MD Chronic pain syndrome (Primary Dx) 07/23/2024 Travel 07/17/2024 Refill [facility] [address] [place] [address] Eddie Marshall MD 07/16/2024 9:45 AM EST Office Visit [facility] [address] [place] [phone] Mckenzie Trent FNP Chronic pain syndrome (Primary Dx); skilled nursing (current) use of opiate analgesic 07/16/2024 9:15 AM EST Office Visit [facility] [address] [place] [phone] Kelly Montoya MD Chronic pain syndrome (Primary Dx) 07/16/2024 Orders Only [facility] External Provider, [facility] 07/16/2024 Travel 07/12/2024 Refill [facility] [address] [place] [address] Eddie Marshall MD 07/12/2024 Refill [facility] [address] [place] [phone] Eddie Marshall MD Chronic pain syndrome 07/02/[address] [address] Eddie Marshall MD from Last 3 Months Immunizations Name Administration Dates Next Due Influenza injectable quadriv alent IIV4 with preservative 04/07/2016 Influenza, IIV3, injectable 03/23/2015,1 ,03/08/2013,04/06,05/01/2008,04/19/2007,05/10/2006 ,03/15/2005 Novel [id number], preservative-free 05/22/2009 Pneumococcal Polysaccharide PPSV23 07/11/2013, TD [...] Care Team (Late st Contact Info) Description 09/30/2024 2:30 PM EDT Office Visit [facility] [address] [place] [address] [phone] AppramaHnnah NP [address] [place] [address] 10/29/2024 2:30 PM EDT Office Visit [address] [phone] Name, MD Eddie [address] [place] [phone] 11/12/2024 9:45 AM EDT Office Visit [address] [phone] Health Maintenance Due Date Last Done Comments [...] Procedure Name Priority Date/Time Associated Diagnosis Comments PHOSPHATE ( PHOSPHORUS) Routine 09/30/2024 11:00 AM EDT OBSX1 Routine 09/28/2024 5:12 PM EDT BASIC METABOLIC PANEL Routine 09/28/2024 4:02 PM EDT PROTHROMBIN TIME-INR Routine 09/28/2024 4:02 PM EDT CBC WITH AUTO DIFFERENTIAL Routine 09/28/2024 4:02 PM EDT XR CHEST 2 VIEWS Routine 09/20/2024 10:1 2 AM EDT POCT ADRIAN-14 URINE DRUG SCREEN Routine 09/10/2024 1:29 PM EDT Chronic pain syndrome skilled nursing (current) use of opiate analgesic CT CHEST [...] complication, without long-term current use of insulin ([facility]) POCT GLUCOSE Routine 08/02/2024 2:14 PM EST Controlled type 2 diabetes mellitus with complication, without long-term current use of insulin ([facility]) XR KUB AND UPRIGHT 2 VIEWS [...] DRUG SCREEN Routine 07/16/2024 1:49 PM EST 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 LIPID PANEL, STANDARD Routine 01/16/2024 9:40 AM EDT Controlled type 2 diabetes mellitus with complication, without long-term current use of insulin ([facility]) ALBUMIN, RANDOM URINE W/CREATININE Routine 01/16/2024 9:35 AM EDT Primary hypertension HM DIABETES EYE EXAM Routine 05/16/2023 HEPATITIS PANEL, GENERAL Routine 11/18/2022 2:07 PM EDT Diarrhea, unspecified type from Last 3 Months or Most Recently Relevant to Health Maintenance Results * Phosphate (As Phosphorus) (09/30/2024 11:00 AM EDT) Only the most recent of2 resultswithin the time period is included. Phosphorus 3.0 2.7 - 4.5 mg/dL [facility] 09/30/2024 11:0 0 AM EDT 09/30/2024 11:06 AM EDT us Generic External Data Provider LAB BLOOD ORDERAB LES Final Result [facility] [address] [place] [phone] * OBSX1 (09/28/2024 5:12 PM EDT) Pathologist [facility] OBS1 NEGATIVE NEGATIVE [facility] 09/28/2024 5:12 PM EDT 09/28/2024 5:20 PM EDT us Generic External Data Provider LAB BLOOD ORDERAB LES Final Result [facility] [address] [place] [address] [phone] * (ABNORMAL) CBC auto differential (09/28/2024 4:02 PM EDT) Only the most recent of2 resultswithin the time period is included. [facility] White Blood Count 8.2 4.8 - 10.8 X10*3/uL [facility] Red Blood Count 3.58(L) 4.20 - 5.50 X10*6/uL [facility] Hemoglobin 8.5(L) 12.0 - 16.0 g/dl [facility] Hematocrit 28.2(L) 37.0 - 47.0 % [facility] Mean Corpuscular Volume 78.8(L) 80.0 - 98.0 fL [facility] Mean Corpuscular Hemoglobin 23.7(L) 27.0 - 33.0 pg [facility] Mean Corpuscular HGB Conc 30.1(L) 31.0 - 35.0 g/dl [facility] Red Cell Distribution Width 18.2(H) 11.0 - 16.0 % [facility] Platelet Count 344 160 - 400 X10*3/uL [facility] Mean Platelet Volume 9.4 9.4 - 12.3 fL [facility] Neutrophils Percent Auto 66.5 45 - 73 % [facility] Imm Gran Pct Auto 0.4 0.0 - 0.4 % [facility] Lymphocytes Percent Auto 20.0 20 - 40 % [facility] Monocytes Percent Auto 10.3 2 - 11 % [facility] Eosinophils Percent Auto 2.3 0 - 4 % [facility] Basophils Percent Auto 0.5 0 - 2 % [facility] NRBC Pct Auto 0.0 0.0 - 0.2 /100WBC [facility] Neutrophils Absolute Auto 5.4 2.0 - 8.3 x10*3/uL [facility] Imm Gran Abs Auto 0.03 0.00 - 0.03 X10*3/uL [facility] Lymphocytes Absolute Auto 1.6 1.2 - 4.9 X10*3/uL [facility] Monocytes Absolute Auto 0.8 0.1 - 1.2 X10*3/uL [facility] Eosinophils Absolute Auto 0.2 0.0 - 0.4 X10*3/uL [facility] Basophils Absolute Auto 0.0 0.0 - 0.2 X10*3/uL [facility] NRBC Abs Auto 0.000 0.0 - 0.012 X10*3/uL [facility] 09/28/2024 4:02 PM EDT 09/28/2024 4:06 PM EDT us Generic External Data Provider LAB BLOOD ORDERAB LES Final Result Performing Organization Address City/State/[facility] Co de Phone Number [facility] [address] [place] [phone] * Prothrombin Time-INR (09/28/2024 4:02 PM EDT) Prothrombin Time 11.6 10.9 - 12.4 SEC [facility] INTERNATIONAL NORM RATIO 1.0 0.9 - 1.1 [facility] Comment:INTERNATIONAL NORMAL IZED RATIO (INR) REFERENCE RANGES Reference RangeFor patients not on anticoagulant therapy: 0.9 - 1.1INR ranges for oral anticoagulanttherapy:For prevention and treatment of venous thrombosis and pulmonary embolism: 2.0 - 3.0For acute myocardial infarction with aspirin therapy: 2.0 - 3.0For acute myocardial infarction without aspirin therapy: 3.0 - 4.0For patients with mechanical prosthetic heart valves: 2.5 - 3.5 09/28/2024 4:02 PM EDT 09/28/2024 4:06 PM EDT us Generic External Data Provider LAB BLOOD ORDERAB LES Final Result [facility] [address] [place] [phone] [phone] * (ABNORMAL) Basic Metabolic Panel (09/28/2024 4:02 PM EDT) Only the most recent of2 resultswithin the time period is included. Sodium 138 135 - 145 mmol/L [facility] Potassium 4.2 3.3 - 5.1 mmol/L [facility] Chloride 104 96 - 108 mmol/L [facility] Carbon Dioxide 25 22 - 29 mmol/L [facility] Anion Gap 13 12 - 20 [facility] Urea Nitrogen (BUN) 21(H) 9 - 16 mg/dL [facility] Creatinine, Serum 0.66 0.5 - 1.4 mg/dL [facility] Creatinine Clr Calc Pharmacy 62.2 [facility] Comment:Provided height and weight: 157.48 cm,63 kg.eGFR (calculated from the MDRD study equation) and eCrCl(calculated from the Cockcroft-Gault equation) are based ondifferent parameters and may not yield comparable results.If eCrCl result is absurd, please check patient'sheight/weight. Estimated Glomerular Filt Rate >60 [facility] Comment:Chronic Kidney Disea se: Estimated GFR < 60 mL/min/1.37h0Ngiywe Kidney Disease: Estimated GFR < 15 mL/min/1.73m2 Glucose 131(H) 60 - 115 mg/dL [facility] Calcium 9.2 8.4 - 10.2 mg/dL [facility] 09/28/2024 4:02 PM EDT 09/28/2024 4:06 PM EDT us Generic External Data Provider LAB BLOOD ORDERAB LES Final Result [facility] [address] [place] [phone] * XR Chest 2 Views (09/20/2024 10:12 AM EDT) Anatomical Region Laterality Modality Chest Radiographic Tanya ging 09/20/2024 10:1 2 AM EDT Narrative 09/20/2024 10:27 AM EDT ? [facility] ?[address] ?[place] [address] ?XRay Report ? Signed ? Patient: Celeste Abad ?MR#: [id number] ?? 4 ? : 1945 ?Acct:[id number] ? Age/Sex: 78 / F ?ADM Date: 09/20/24 ? Loc: HO.XRAY ? Attending Dr: Maria Esther Blum RERECORDING MIXER ? Ordering Physician: Maria Esther Blum NP ?? Date of Service: 09/20/24 ?? Procedure(s): XR chest 2V ?? Accession Number(s): [id number] ? cc: Name,Eddie GILMORE; Maria Esther Blum [...] DD/ 1012 ? TD/TT: 09/20/24 1017 ? Senior Specialist: ? Procedure Note Donotjenniferter, Image - 09/20/[address] [address] XRay Report Signed Patient: Celeste AbadMR#: [id number] 4 : 7Acct:[id number] Age/Sex: 78 / FADM Date: 09/20/24 Loc: HO.XRAY Attending Dr: Maria Esther Blum NP Ordering Physician: Maria Esther Blum NP Date of Service: 09/20/24 Procedure(s): XR chest 2V Accession Number(s): [id number] cc: Eddie Marshall MD; Maria Esther Blum [...] 09/20/24 1024 DD/ 1012 TD/TT: 09/20/24 1017 Senior Specialist: [facility] External Provider IMG XR PROCEDURES Final Result * POCT ADRIAN-14 Urine Drug Screen (09/10/2024 1:29 PM EDT) Only the most recent of2 resultswithin the time period is included. Pathologist [facility] THC Negative Cocaine Screen, Urine Negative Opiate [...] Suarez [place] - 09/10/2024 1:30 PM EDT Lot:[id number] Exp: 02/06/2028 us Mckenzie Trent SWAHILI TEACHER POINT OF CARE TEST ENTER/EDIT ORDERABLES Final Result * CT Chest w/o Contrast (08/27/2024 2:12 PM EDT) Anatomical Region Laterality Modality Body, Chest Computed Tomogra phy 08/27/2024 2:12 PM EDT Narrative 08/27/2024 2:14 PM EDT ? [facility] ?[address] ?[place] [address] ? CT Scan Report ? Signed ? Patient: Celeste Abad ?MR#: [id number] ?? 4 ? : 1945 ?Acct:[id number] ? Age/Sex: 78 / F ?ADM Date: 08/26/24 ? Loc: HO.CT ? Attending Dr: Maria Esther Blum RERECORDING MIXER ? Ordering Physician: Maria Esther Blum NP ?? Date of Service: 08/26/24 ?? Procedure(s): CT chest wo IV con ?? Accession Number(s): [id number] ? cc: Name,Eddie MD; Maria Esther Blum NP ? Report Number: ?? [id number]: Total DLP = ??208.00 mGy-cm ? CLINICAL [...] DD/ 1412 ? TD/TT: 08/27/24 1412 ? Senior Specialist: ? Procedure Note Donjose ramonter, Image - 08/27/[address] [place] [address] [address] Scan Report Signed Patient: Celeste AbadMR#: [id number] 4 : 1945cct:[id number] Age/Sex: 78 / FADM Date: 08/26/24 Loc: HO.CT Attending Dr: Maria Esther Blum NP Ordering Physician: Maria Esther Blum NP Date of Service: 08/26/24 Procedure(s): CT chest wo IV con Accession Number(s): [id number] cc: Name,Eddie GILMORE; Maria Esther Blum NP Report Number: [id number]: Total DLP = 208.00 mGy-cm CLINICAL HISTORY: [...] Riley MD in OV> 08/27/24 1413 DD/ 141 TD/TT: 08/27/24 141 Senior Specialist: [facility] External Provider IM CT PROCEDURES Final Result * (ABNORMAL) Iron And Total Iron Binding Capacity (08/27/2024 1:25 PM EDT) Iron 14(L) 30 - 160 mcg/dL [facility] Total Iron Binding Capacity 295 228 - 428 mcg/dL [facility] Percent Iron Saturation 5(L) 15 - 50 % [facility] Unsaturated Iron Binding 281 ug/dL [facility] 08/27/2024 1:25 PM EDT 08/27/2024 1:25 PM EDT us Generic External Data Provider LAB BLOOD ORDERAB LES Final Result [facility] [address] [place] [phone] * (ABNORMAL) CBC (08/27/2024 1:25 PM EDT) Pathologist [facility] White Blood Count 9.0 4.8 - 10.8 X10*3/uL [facility] Red Blood Count 4.06(L) 4.20 - 5.50 X10*6/uL [facility] Hemoglobin 10.0(L) 12.0 - 16.0 g/dl [facility] Hematocrit 33.1(L) 37.0 - 47.0 % [facility] Mean Corpuscular Volume 81.5 80.0 - 98.0 fL [facility] Mean Corpuscular Hemoglobin 24.6(L) 27.0 - 33.0 pg [facility] Mean Corpuscular HGB Conc 30.2(L) 31.0 - 35.0 g/dl [facility] Red Cell Distribution Width 16.3(H) 11.0 - 16.0 % [facility] Platelet Count 393 160 - 400 X10*3/uL [facility] Mean Platelet Volume 9.4 9.4 - 12.3 fL [facility] NRBC Pct Auto 0.0 0.0 - 0.2 /100WBC [facility] NRBC Abs Auto 0.000 0.0 - 0.012 X10*3/uL [facility] 08/27/2024 1:25 PM EDT 08/27/2024 1:25 PM EDT us Generic External Data Provider LAB BLOOD ORDERAB LES Final Result Performing Organization Address [facility]/ZIP Co de Phone Number [facility] [address] [place] [phone] * Ferritin (08/27/2024 1:25 PM EDT) Ferritin 35 10 - 250 ng/mL [facility] 08/27/2024 1:25 PM EDT 08/27/2024 1:25 PM EDT us Generic External Data Provider LAB BLOOD ORDERAB LES Final Result Performing Organization Address [facility] de Phone Number [facility] [address] [place] [phone] * FL Esophagus Barium Swallow w/Air (08/14/2024 9:52 AM EST) Anatomical Region Laterality Modality Head, Neck Radiographic Tanya ging 08/14/2024 9:52 AM EST Narrative 08/15/2024 4:55 PM EST ? [facility] ?[address] ?[place] [address] ? Fluoroscopy Report ? Signed ? Patient: Jenniffer,Celeste ?MR#: [id number] ?? 4 ? : 1945 ?Acct:[id number] ? Age/Sex: 78 / F ?ADM Date: /26/25 ? Loc: HO.XRAY ? Attending Dr: Julia Li MD ? Ordering Physician: Julia Li MD ?? Date of Service: 08/14/24 ?? Procedure(s): FL barium swallow with air ?? Accession Number(s): [id number] ? cc: Name,Eddie GILMORE; Julia Li MD [...] DD/ 0952 ? TD/TT: 08/14/24 1020 ? Senior Specialist: ? Procedure Note Donjose ramonter, Image - 08/15/2024 [place] [address] Fluoroscopy Report Signed Patient: Ventura Abad#: [id number] 4 : 1945cct:[id number] Age/Sex: 78 / FADM Date: 08/14/24 Loc: ZAHIDA Attending Dr: Julia Li MD Ordering Physician: Julia Li MD Date of Service: 08/14/24 Procedure(s): FL barium swallow with air Accession Number(s): [id number] cc: Eddie Marshall MD; Julia Li MD [...] 08/15/24 1654 DD/ 0952 TD/TT: 08/14/24 1020 Senior Specialist: [facility] External Provider IMG FLU OROSCOPY PROCEDURES Final Result * Immunofixation (ALEXANDER), Urine (08/14/2024 9:41 AM EST) ALEXANDER Interpretation SEE NOTE [facility] Comment:Normal pattern. No m onoclonal proteins detected.The supplier of the testing reagents for this assayhas changed. Detection of small monoclonal proteins mayvary by test system.THIS TEST WAS PERFORMED AT:[employer] [place] [id number] PAYNE MD 08/14/2024 9:41 AM EST 08/14/2024 10:39 AM EST us Generic External Data Provider LAB URINE ORDERAB LES Final Result [facility] [address] [place] [phone] * (ABNORMAL) Protein, Total and Protein??Electrophoresis (08/14/2024 9:37 AM EST) Prot Elec - Total Protein 6.7 6.1 - 8.1 g/dL [facility] Prot Elec - Albumin 3.2(A) 3.8 - 4.8 g/dL [facility] Prot Elec - Alpha1 0.4(A) 0.2 - 0.3 g/dL [facility] Prot Elec - Alpha2 1.1(A) 0.5 - 0.9 g/dL [facility] Prot Elec - Beta 1 0.5 0.4 - 0.6 g/dL [facility] Prot Elec - Beta 2 0.5 0.2 - 0.5 g/dL [facility] Prot Elec - Gamma 1.0 0.8 - 1.7 g/dL [facility] PES - Abn Protein Band 1 TNP [facility] PES-Abn Protein Band 2 [facility] PES-Abn Protein Band 3 [facility] Prot Elec - Interpretation SEE NOTE [facility] Comment:Evaluation is consis tent with an acute inflammatorypattern.THIS TEST WAS PERFORMED AT:[employer] [address] [id number] PAYNE MD 08/14/2024 9:37 AM EST 08/14/2024 9:41 AM EST Generic External Data Provider LAB BLOOD ORDERAB LES Final Result [facility] [address] [place] [phone] * (ABNORMAL) POCT HGB A1C (08/02/2024 [...] Media Lot # [id number] Lot# Expiration Date ,172,025 Blood Capillary blood specimen / Unknown 08/02/2024 2:14 PM EST Latanya Hoover MD POINT OF CARE TEST ENTER/EDIT ORDERABLES Edited Result - Final * XR KUB and Upright 2 Views (07/16/2024 7:07 PM EST) Anatomical Region Laterality Modality Radiographic Tanya ging 07/16/2024 7:07 PM EST Narrative 07/16/2024 7:07 PM EST ? [facility] ?[address] ?[place] [address] ?XRay Report ? Signed ? Patient: Jenniffer,Celeste ?MR#: [id number] ?? 4 ? : 1945 ?Acct:[id number] ? Age/Sex: 78 / F ?ADM Date: 01/28/25 ? Loc: HO.ED ? Attending Dr: ? Ordering Physician: Rhea Ken ?? Date of Service: 07/16/24 ?? Procedure(s): XR KUB ?? Accession Number(s): [id number] ? cc: Rhea Ken; Name,Eddie GILMORE ? [...] ? DD/ 06 ? TD/TT: 07/16/241906 ? Senior Specialist: ? Procedure Note Donjacobchristiannejeanieter, Image - 07/16/2024 [place] [address] XRay Report Signed Patient: Celeste AbadMR#: [id number] 4 : 1945cct:[id number] Age/Sex: 78 / FADM Date: 07/16/24 Loc: HO.ED Attending Dr: Ordering Physician: Rhea Ken Date of Service: 07/16/24 Procedure(s): XR KUB Accession Number(s): [id number] cc: hRea Ken; Name,Eddie GILMORE CLINICAL HISTORY: [...] in OV> 07/16/241906 DD/ 06 TD/TT: 07/16/241906 Senior Specialist: [facility] External Provider IMG XR PROCEDURES Final Result * SARS-CoV-2 RNA, Influenza A/B, and RSV RNA, Ql NAAT (07/16/2024 7:06 PM EST) Pathologist [facility] Influenza A PCR NEGATIVE Negative [facility] Influenza B PCR NEGATIVE Negative [facility] Resp Syncy Virus RNA Qual PCR NEGATIVE Negative [facility] SARS COV2 PCR NEGATIVE Negative [facility] Comment:All test results mus t [...] use by authorized laboratories.Testing performed on the [employer] GeneXpert utilizingreal-time RT-PCR.All SARS CoV2 and positive influenza A/B results arereported to [facility]. 07/16/2024 7:06 PM EST 07/16/2024 7:11 PM EST Generic External Data Provider LAB MICROBIOLOGY - GENERAL ORDERABLES Final Result Performing Organization Address [facility]/ZIP Co de Phone Number [facility] [address] [place] [address] [phone] * Magnesium (07/16/2024 7:06 PM EST) [facility] Magnesium 2.2 1.6 - 2.6 mg/dL [facility] 07/16/2024 7:06 PM EST 07/16/2024 7:11 PM EST Generic External Data Provider LAB BLOOD ORDERAB LES Final Result Performing Organization Address [facility] Co de Phone Number [facility] [address] [place] [address] [phone] * Lipase (07/16/2024 7:06 PM EST) [facility] Lipase 8 8 - 78 U/L [facility] 07/16/2024 7:06 PM EST 07/16/2024 7:11 PM EST us Generic External Data Provider LAB BLOOD ORDERAB LES Final Result Performing Organization Address [facility] Co de Phone Number [facility] [address] [place] [address] [phone] * (ABNORMAL) Hepatic Function Panel (07/16/2024 7:06 PM EST) Bilirubin, Total 0.4 0.0 - 1.0 mg/dL [facility] Bilirubin, Direct 0.2 0.0 - 0.5 mg/dL [facility] Aspartate Amino Transferase 37(H) 5 - 31 U/L [facility] Alanine Aminotransferase 27 0 - 31 U/L [facility] Total Protein 7.5 6.5 - 8.0 g/dL [facility] Albumin Level 3.9 3.5 - 5.0 g/dL [facility] Alkaline Phosphatase 136(H) 39 - 117 U/L [facility] 07/16/2024 7:06 PM EST 07/16/2024 7:11 PM EST Generic External Data Provider LAB BLOOD ORDERAB LES Final Result Performing Organization Address [facility] Co de Phone Number [facility] [address] [place] [address] [phone] * (ABNORMAL) Lipid Panel, Standard (01/16/2024 9:40 AM EDT) Triglycerides 199(H) <150 mg/dL [facility] Comment:Desirable Triglyceri de: less than 150 mg/dLBorderline High Triglyceride 150-199 mg/dLHigh Triglyceride: 200-499 mg/dLVery High Triglyceride: greater than or equal to 5OO mg/dL Cholesterol 150 <200 mg/dL [facility] Comment:Desirable Cholestero l: less than 200 mg/dLBorderline High Cholesterol: 200-239 mg/dLHigh Cholesterol: greater than 239 mg/dL LDL Cholesterol Calculated 63 <100 mg/dL [facility] Comment:Desirable LDL: less than [...] ORDERABLES Final Resul t Performing Organization Address City/[facility] Co de Phone Number [facility] [address] [place] [address] [phone] * Albumin, Random Urine W/Creatinine (01/16/2024 9:35 AM EDT) Creatinine, Urine 27.62 mg/dL [facility] Microalbumin Urine <5.0 mg/L [facility] Microalbum Creatinine Ratio Ur TNP <30 ug/mg cr [facility] Comment:Unable to calculate albumin/creatinine ratio due to lowmicroalbumin or creatinine result. Urine (Urine, Random) 01/16/2024 9:35 AM EDT 01/16/2024 11:12 AM EDT us Eddie Marshall MD LAB URINE ORDERABLES Final Resul t Performing Organization Address City/[facility]/ZIP Co de Phone Number [facility] [address] [place] [address] [phone] * Hm Diabetes Eye Exam (05/16/2023) Eye Exam Normal Normal us Eddie Marshall MD HEALTH MAINTENANCE Final Result * (ABNORMAL) Hepatitis Panel, General (11/18/2022 2:07 PM EDT) Hepatitis A Antibody Total REACTIVE( A) NON-REACT NAHID [facility] [place] [employer] Comment: For additional information, please refer to http://CosmEthics.LeanKit/faq/UWK064 (This link is being provided for informational/ educational purposes only.) Hepatitis B Surface Antibody QL NON-REACT NAHID NON-REACT NAHID [facility] [place] [employer] Hepatitis B Surface Ag NON-REACT NAHID NON-REACT NAHID [facility] [place] [employer] Hepatitis B Core Antibody Total NON-REACT NAHID NON-REACT NAHID [facility] [place] [employer] Hepatitis C Antibody NON-REACT NAHID NON-REACT NAHID [facility] [place] [employer] Index 0.07 <1.00 [facility] [place] [employer] Comment: HCV antibody was non-reactive. There is no laboratory evidence of HCV infection. In most cases, no further action is required. However, if recent HCV exposure is suspected, a test for HCV RNA (test code 57661) is suggested. For additional information please refer to http://CosmEthics.LeanKit/faq/KQA48i8 (This link is being provided for informational/ educational purposes only.) 11/18/2022 2:07 PM EDT 11/18/2022 2:09 PM EDT Narrative [facility] - 11/19/2022 6:51 AM EDT COLLECTION KIT GIVEN TO PATIENT. PATIENT ADVISED TO RETURN. Mckenzie Pillai [facility] BLOOD ORDERABLES Final Res ult [facility] [address], [place] [address] [facility] [place] [employer] [address] [place] [address] from Last 3 Months or Most Recently Relevant to Health Maintenance Insurance [facility] [employer] [place] [id number] Care Teams Italian Tutor Relationship Specialty Start Date End Date Name, MD Eddie [address] [place] [address] PCP - General Family Medicine 09/16/15 Jerica [facility] 07/01/24
--- OUTSIDE RECORDS SUMMARY | 2024-09-30 12:48 | XMS_ITS | Encounter Summary ---
Author Organization [employer] Address [address] [place] [address] 7 [place] [address] Care Team Providers Care Agronomy Research Manager Name Role Phone Name, Eddie GILMORE Primary Care Provider [phone] Reason for Visit * Reason Onset Date Comments ER Follow-up 09/27/2024 Encounter Details Date Type Department Care Team ([facility] st Contact Info) Description 09/27/2024 Telephone [facility] [address] [place], [place] [phone] Name, MD Eddie 230 [place] [address] ER Follow-up Social History Tobacco Use Types [...] ED visit on : Date: 09/26/24 Hospital: [facility] Seen for: Nose bleeds Symptomatic yes . [...] Description 09/30/2024 2:30 PM EDT Office Visit [facility] [address] [place] [address] Hannah Paula NP [address] [place] [address] 10/29/2024 2:30 PM EDT Office Visit [facility] [address] [place] [address] Name, MD Eddie [address] [place] [phone] 11/12/2024 9:45 AM EDT Office Visit [facility] [address] [place] [address] [place] [address] documented as of this encounter Visit Diagnoses Not on filedocumented in this encounter Additional Health Concerns Assessment Noted Time PHQ-9 Depression Total Score: 9 05/10/20 24 11:56 AM EST documented as of this encounter Care Teams Agronomy Research Manager Relationship Specialty Start Date End Date Name, MD Eddie [address] [place] [address] PCP - General Family Medicine 09/16/15 [facility] 07/01/24 documented as of this encounter
--- OUTSIDE RECORDS SUMMARY | 2024-09-30 12:48 | XMS_ITS | Encounter Summary ---
Author Organization [employer] Address [address] [facility] 7t [place] [address] Care Team Providers Care Networking Engineer Name Role Phone Name, Eddie GILMORE Primary Care Provider [phone] Reason for Visit * Reason Onset Date Comments DME Transport Chair 09/24/2024 Encounter Details Date Type Department Care Team (Late st Contact Info) Description 09/24/[address] [facility] [address] [place], [place] [phone] Name, MD Eddie 230 [place] [address] DME Transport Chair Social History Tobacco Use [...] please advise them to contact Bere at [phone]. * Telephone Encounter - Kathy Nina MA - 09/24/2024 9:30 AM EDT DME for transport chair from [facility] received and is being processed. Placed on provider's desk for signature. documented in this encounter Plan of Treatment Upcoming Encounters Date Type Department Care Team (Late st Contact Info) Description 09/30/2024 2:30 PM EDT Office Visit [facility] [address] [place] [address] Hannah Paula NP 230 [place] [address] 10/29/2024 2:30 PM EDT Office Visit [facility] 230 [place] [address] Name, MD Eddie [address] [place] [address] 11/12/2024 9:45 AM EDT Office Visit [facility] [address] [place] [address] documented as of this encounter Visit Diagnoses Not on filedocumented in this encounter Additional Health Concerns Assessment Noted Time PHQ-9 Depression Total Score: 9 05/10/20 24 11:56 AM EST documented as of this encounter Care Teams Networking Engineer Relationship Specialty Start Date End Date Name, MD Eddie [address] [place] [address] PCP - General Family Medicine 09/16/15 Jerica [facility] 07/01/24 documented as of this encounter
--- OUTSIDE RECORDS SUMMARY | 2024-09-30 12:48 | XMS_ITS | Encounter Summary ---
Author Organization [employer] Address [address] [place] [address] 7 [place] [address] Care Team Providers Care Mortgage Loan Specialist Name Role Phone Name, Eddie GILMORE Primary Care Provider [phone] Reason for Visit * Reason Comments Med Refill Encounter Details Date Type Department Care Team (Late st Contact Info) Description 05/08/2023 Refill [facility] 230 [place], [place] [phone] Name, MD Eddie 230 [place], [place] [phone] Chronic pain syndrome Social History Tobacco Use [...] Description 09/30/2024 2:30 PM EDT Office Visit [address] [address] KaymHannah NP [address] [place] [address] 10/29/2024 2:30 PM EDT Office Visit [address] [address] Name, MD Eddie [address] [place] [address] 11/12/2024 9:45 AM EDT Office Visit [address] [address] documented as of this encounter Visit Diagnoses Diagnosis Chronic pain syndrome documented in this encounter Additional Health Concerns Assessment Noted Time PHQ-9 Depression Total Score: 10 023 1:16 PM EDT documented as of this encounter Care Teams Mortgage Loan Specialist Relationship Specialty Start Date End Date Name, MD Eddie [address] [place] [address] PCP - General Family Medicine 09/16/15 [facility] 07/01/24 documented as of this encounter
--- OUTSIDE RECORDS SUMMARY | 2024-09-30 12:48 | XMS_ITS | Encounter Summary ---
Author Organization [employer] Address [address] [facility] 7t [place] [address] Care Team Providers Care Mill Operator Head Name Role Phone Name, Eddie GILMORE Primary Care Provider [phone] Reason for Visit * Reason Onset Date Comments ED follow up 09/27/2024 Encounter Details Date Type Department Care Team ([facility] st Contact Info) Description 09/27/2024 Telephone [facility] 230 [place], [place] [phone] Matilda Millan RN ED follow up Social [...] Telephone Encounter - Aleksandra Talavera RN - 09/30/2024 10:02 AM EDT 2nd call placed to pt for status check re: [facility] [place] 09/26/24 Dx: Acute anterior epistaxis. Pt reports that she did return to ED to have packing removed. Pt requesting f/u appt due to lab work done in ED. Agrees to ED f/u with team provider this afternoon. * Telephone Encounter - Matilda Millan RN - 09/27/2024 11:43 AM EDT TC to pt. @[phone] to follow up director of application development center message as per below. VM left for pt to return call to [facility]. Per ED notes from 09/26: pt is to return to ED tomorrow Sat. 09/28 or Sun 09/29 for nasal packing removal. Will re attempt reaching pt for a f/u PCP OV for next week. Patient calling to report ED visit on : Date: 09/26/24 Hospital: [facility] Seen for: Nose bleeds Directions per [facility] [place] 09/26/24 You were evaluated in the emergency room for a nose bleed. >>>Follow up with your primary care doctor and ENT in the next 5-7 days. >>>Please return to the emergency room for removal of your nasal packing in 48- 72 hours onthe morning Saturday September 28, 2024 Sunday September 29, 2024. [...] Description 09/30/2024 2:30 PM EDT Office Visit [address] [address] Hannah Paula NP [address] [place] [address] 10/29/2024 2:30 PM EDT Office Visit [address] [address] Name, MD Eddie [address] [place] [address] 11/12/2024 9:45 AM EDT Office Visit [address] [address] documented as of this encounter Visit Diagnoses Not on filedocumented in this encounter Additional Health Concerns Assessment Noted Time PHQ-9 Depression Total Score: 9 05/10/20 24 11:56 AM EST documented as of this encounter Care Teams Mill Operator Head Relationship Specialty Start Date End Date Name, MD Eddie [address] [place] [address] PCP - General Family Medicine 09/16/15 Jer[facility] 07/01/24 documented as of this encounter
--- OUTSIDE RECORDS SUMMARY | 2024-09-30 12:48 | XMS_ITS | Encounter Summary ---
Author Organization [email or web address] Address [address] [place] [address] 7 [place] [address] Care Team Providers Care Restaurant Manager Name Role Phone Name, Eddie GILMORE Primary Care Provider [phone] Reason for Visit * Reason Comments Med Refill Encounter Details Date Type Department Care Team (Late st Contact Info) Description 02/26/2023 Refill [facility] [address] [place] [address] [phone] Name, MD dEdie [address] [place] [address] [phone] Chronic pain syndrome Social History Tobacco Use [...] PM EDT Office Visit [facility] [address] [place] [address] [phone] Hannah Paula NP [address] [place] [address] [phone] 10/29/2024 2:30 PM EDT Office Visit [address] [address] Name, MD Eddie [facility] [place] [address] 11/12/2024 9:45 AM EDT Office Visit [facility] [place] [address] documented as of this encounter Visit Diagnoses Diagnosis Chronic pain syndrome documented in this encounter Additional Health Concerns Assessment Noted Time PHQ-9 Depression Total Score: 10 023 1:16 PM EDT documented as of this encounter Care Teams Restaurant Manager Relationship Specialty Start Date End Date Name, MD Eddie [facility] [place] [address] PCP - General Family Medicine 09/16/15 Jerica A 07/01/24 documented as of this encounter
--- OUTSIDE RECORDS SUMMARY | 2024-09-30 12:48 | XMS_ITS | Encounter Summary ---
Author Organization [employer] Address [address] [place] [address] 7 [place] [address] Care Team Providers Care Store Group Manager Name Role Phone Name, Eddie GILMORE Primary Care Provider [phone] Reason for Visit * Reason Comments Med Refill Encounter Details Date Type Department Care Team (Late st Contact Info) Description 06/18/2023 Refill [facility] 230 [place], [place] [phone] Name, MD Eddie 230 [place], [place] [phone] Chronic pain syndrome Social History Tobacco Use [...] Description 09/30/2024 2:30 PM EDT Office Visit [address] [address] KaymHannah NP [address] [address] 10/29/2024 2:30 PM EDT Office Visit [address] [address] Name, MD Eddie [address] [place] [address] 11/12/2024 9:45 AM EDT Office Visit [address] [address] documented as of this encounter Visit Diagnoses Diagnosis Chronic pain syndrome documented in this encounter Additional Health Concerns Assessment Noted Time PHQ-9 Depression Total Score: 10 023 1:16 PM EDT documented as of this encounter Care Teams Store Group Manager Relationship Specialty Start Date End Date Name, MD Eddie [address] [place] [address] PCP - General Family Medicine 09/16/15 [facility] 07/01/24 documented as of this encounter
--- OUTSIDE RECORDS SUMMARY | 2024-09-30 12:48 | XMS_ITS | Encounter Summary ---
Author Organization [employer] Address [address] [place] [address] [place] [address] Care Team Providers Care Specialist Managers Name Role Phone Name, Eddie GILMORE Primary Care Provider [phone] Reason for Visit * Reason Onset Date Comments Hospital Follow-up 11/10/2022 Encounter Details Date Type Department Care Team (Late st Contact Info) Description 11/10/2022 Refill [facility] 230 [place], [place] [phone] Name, MD Eddie 230 [place] [address] Social History Tobacco Use Types Packs/Day Years [...] Jackman Sent: 11/21/2022 5:23 PM EDT To: [facility] Team Nurses Hi team! Sent this pt to the ED over the weekend for Hgb 7. Got admitted and looks like recently discharged. Can you please outreach her for status check and sched HDF w/ Name? Thank you!! * Telephone Encounter - Suzette Singh RN - 11/22/2022 11:10 AM EDT T/C to [phone] to schedule HDF apt. No answer. LVM to call back on [phone]. ----- Message from Amber Roger RN sent at 11/22/2022 9:06 AM EDT ----- ----- Message ----- From: DENIS Jackman Sent: 11/21/2022 5:23 PM EDT To: [facility] Team Nurses Fl team! Sent this pt to the ED over the weekend for Hgb 7. Got admitted and looks like recently discharged. Can you please outreach her for status check and sched HDF w/ DrRod Name? Thank you!! documented in this encounter Plan of Treatment Upcoming Encounters Date Type Department Care Team (Late st Contact Info) Description 09/30/2024 2:30 PM EDT Office Visit [facility] [address] [place] [address] Hannah Paula NP [address] [place] [address] 10/29/2024 2:30 PM EDT Office Visit [address] [address] Joanna, MD Eddie [address] [place] [address] 11/12/2024 9:45 AM EDT Office Visit [address] [place] [address] documented as of this encounter Visit Diagnoses Not on filedocumented in this encounter Care Teams Specialist Managers Relationship Specialty Start Date End Date Name, MD Eddie 230 [place] [address] PCP - General Family Medicine 09/16/15 [facility] 07/01/24 documented as of this encounter
--- OUTSIDE RECORDS SUMMARY | 2024-09-30 12:48 | XMS_ITS | Encounter Summary ---
Author Organization [employer] Address [address] [place] [address] 7t [place] [address] Care Team Providers Care Asset Management Analyst Name Role Phone Name, Eddie GILMORE Primary Care Provider [phone] Encounter Details Date Type Department Care Team (Late st Contact Info) Description 09/30/2024 Orders Only GENERIC EXTERNAL DATA [...] Description 09/30/2024 2:30 PM EDT Office Visit [facility] [address] [place] [address] [phone] Hannah Paula NP 230 [place] [address] 10/29/2024 2:30 PM EDT Office Visit [address] [address] Name, MD Eddie 230 [place] [address] 11/12/2024 9:45 AM EDT Office Visit [address] [address] documented as of this encounter Procedures Procedure Name Priority Date/Time Associated Diagnosis Comments PHOSPHATE ( PHOSPHORUS) Routine 09/30/2024 11:00 AM EDT documented in this encounter Results * Phosphate (As Phosphorus) (09/30/2024 11:00 AM EDT) Phosphorus 3.0 2.7 - 4.5 mg/dL [facility] 09/30/2024 11:0 0 AM EDT 09/30/2024 11:06 AM EDT us Generic External Data Provider LAB BLOOD ORDERAB LES Final Result [facility] [address] [place] [address] [phone] documented in this encounter Visit Diagnoses Not on filedocumented in this encounter Additional Health Concerns Assessment Noted Time PHQ-9 Depression Total Score: 9 05/10/20 24 11:56 AM EST documented as of this encounter Care Teams Asset Management Analyst Relationship Specialty Start Date End Date Name, MD Eddie 230 [place] [address] PCP - General Family Medicine 09/16/15 [facility] 07/01/24 documented as of this encounter
--- OUTSIDE RECORDS SUMMARY | 2024-09-30 12:48 | XMS_ITS | Encounter Summary ---
Author Organization [facility] [employer] Address [address] [place] [address] 7 [place] [address] Care Team Providers Care Photo Technician Name Role Phone Name, Eddie GILMORE Primary Care Provider [phone] Encounter Details Date Type Department Care Team ([facility] Contact Info) Description 11/18/2022 Abstract [facility] [address] [place] [address] [phone] Name, MD Eddie [address] [place] [address] [phone] Social History Tobacco Use Types Packs/Day Years [...] Upcoming Encounters Date Type Department Care Team ([facility] Contact Info) Description 09/30/2024 2:30 PM EDT Office Visit [facility] [address] [place] [address] [phone] Hannah Paula NP 230 [place], [place] [phone] 10/29/2024 2:30 PM EDT Office Visit [facility] [place] [address] Name, [place] [address] 11/12/2024 9:45 AM EDT Office Visit [facility] [place] [address] documented as of this encounter Visit Diagnoses Not on filedocumented in this encounter Care Teams Photo Technician Relationship Specialty Start Date End Date Name, [place] [address] PCP - General Family Medicine 09/16/15 Jerica [facility] 07/01/24 documented as of this encounter
--- OUTSIDE RECORDS SUMMARY | 2024-09-30 12:48 | XMS_ITS | Encounter Summary ---
Author Organization [employer] Address [address] [place] [address] [place] [address] Care Team Providers Care Inhalation Therapy Teacher Name Role Phone Name, Eddie GILMORE Primary Care Provider [phone] Reason for Visit * Reason Comments Med Refill Encounter Details Date Type Department Care Team (Late st Contact Info) Description 01/29/2023 Refill [facility] [address] [place] [address] [phone] Farhana Singh FNP [address] [place] [address] Dept [place] [address] Social History Tobacco Use Types Packs/Day Years [...] Description 09/30/2024 2:30 PM EDT Office Visit [facility] [address] [place] [address] [phone] Hannah Paula NP [address] [place], [place] [phone] 10/29/2024 2:30 PM EDT Office Visit [facility] [place] [address] Name, [place] [address] 11/12/2024 9:45 AM EDT Office [facility] [place] [address] documented as of this encounter Visit Diagnoses Not on filedocumented in this encounter Additional Health Concerns Assessment Noted Time PHQ-9 Depression Total Score: 10 023 1:16 PM EDT documented as of this encounter Care Teams Inhalation Therapy Teacher Relationship Specialty Start Date End Date Name, [place] [address] PCP - General Family Medicine 09/16/15 Jerica A 07/01/24 documented as of this encounter
--- OUTSIDE RECORDS SUMMARY | 2024-09-30 12:48 | XMS_ITS | Encounter Summary ---
Author Organization [employer] Address [address] [place] [address] 7t [place] [address] Care Team Providers Care Typesetting Supervisor Name Role Phone Name, Eddie GILMORE Primary Care Provider [phone] Encounter Details Date Type Department Care Team ([facility] st Contact Info) Description 12/07/2022 Telephone [facility] [address] [place], [place] [phone] Name, MD Eddie 230 [place] [address] Social History Tobacco Use Types Packs/Day Years [...] update PCP now. Ordering provider Pierce Pillai WATER PLANT OPERATOR Follow with genaro as indicated. Results faxed at time of call to [phone]. Ref.# [id number] documented in this encounter Plan of Treatment Upcoming Encounters Date Type Department Care Team (Late st Contact Info) Description 09/30/2024 2:30 PM EDT Office Visit [facility] [address] [place] [address] Hannah Paula NP [address] [place] [address] 10/29/2024 2:30 PM EDT Office Visit [address] [address] Name, MD Eddie [address] [place] [address] 11/12/2024 9:45 AM EDT Office Visit [address] [address] documented as of this encounter Visit Diagnoses Not on filedocumented in this encounter Additional Health Concerns Assessment Noted Time PHQ-9 Depression Total Score: 10 023 1:16 PM EDT documented as of this encounter Care Teams Typesetting Supervisor Relationship Specialty Start Date End Date Name, MD Eddie [address] [place] [address] PCP - General Family Medicine 09/16/15 [facility] 07/01/24 documented as of this encounter
--- OUTSIDE RECORDS SUMMARY | 2024-09-30 12:48 | XMS_ITS | Encounter Summary ---
Author Organization [employer] Address [address] [place] [address] 7 [place] [address] Care Team Providers Care Flow Worker Name Role Phone Name, Eddie GILMORE Primary Care Provider [phone] Reason for Visit * Reason Onset Date Comments Durable Medical Equipment 09/24/2024 Hip pr otectors Encounter Details Date Type Department Care Team ([facility] st Contact Info) Description 09/24/[address] [facility] [address] [place], [place] [phone] Name, MD Eddie 230 [place] [address] Durable Medical Equipment (Hip protectors) Social History [...] DME request received for hip protectors from [facility] . Please advise if agree with DME request. Thank you documented in this encounter Plan of Treatment Upcoming Encounters Date Type Department Care Team (Late st Contact Info) Description 09/30/2024 2:30 PM EDT Office Visit [facility] [address] [place] [address] Appram, SHAWNA Young [address] [place] [address] 10/29/2024 2:30 PM EDT Office Visit [facility] [address] [place] [address] Name, MD Eddie [address] [place] [address] 11/12/2024 9:45 AM EDT Office Visit [facility] [address] [place] [address] documented as of this encounter Visit Diagnoses Not on filedocumented in this encounter Additional Health Concerns Assessment Noted Time PHQ-9 Depression Total Score: 9 05/10/20 24 11:56 AM EST documented as of this encounter Care Teams Flow Worker Relationship Specialty Start Date End Date Name, MD Eddie 230 [place] [address] PCP - General Family Medicine 09/16/15 [place] [facility] 07/01/24 documented as of this encounter
--- OUTSIDE RECORDS SUMMARY | 2024-09-30 12:48 | XMS_ITS | Encounter Summary ---
Author Organization [employer] Address [address] [place] [address] 7 [place] [address] Care Team Providers Care Disc Ruler Operator Name Role Phone Name, Eddie GILMORE Primary Care Provider [phone] Reason for Visit * Reason Onset Date Comments Active Med List 06/28/2023 Encounter Details Date Type Department Care Team ([facility] st Contact Info) Description 06/28/2023 Telephone [facility] 230 [place], [place] [phone] Name, MD Eddie 230 [place] [address] Active Med List Social History Tobacco Use [...] Be requesting a updated active medication list chief underwriter did attempt to transfer to Medical records so that she can obtain this information but they kept transferring back to the call center. [facility] [address], [place], [place] [phone] documented in this encounter Plan of Treatment Upcoming Encounters Date Type Department Care Team (Late st Contact Info) Description 09/30/2024 2:30 PM EDT Office Visit [facility] [address] [place] [address] [phone] Appram, SHAWNA Young 230 [place], [place] [phone] 10/29/2024 2:30 PM EDT Office Visit [facility] [address] [place] [address] Name, MD Eddie [address] [place] [address] 11/12/2024 9:45 AM EDT Office Visit [facility] 230 [place] [address] documented as of this encounter Visit Diagnoses Not on filedocumented in this encounter Additional Health Concerns Assessment Noted Time PHQ-9 Depression Total Score: 10 023 1:16 PM EDT documented as of this encounter Care Teams Disc Ruler Operator Relationship Specialty Start Date End Date Name, MD Eddie 230 [place] [address] PCP - General Family Medicine 09/16/15 [place] BURGOS[place] 07/01/24 documented as of this encounter
--- OUTSIDE RECORDS SUMMARY | 2024-09-30 12:48 | XMS_ITS | Encounter Summary ---
Author Organization [employer] Address [address] [place] [address] 7 [place] [address] Care Team Providers Care Strategic Analyst Name Role Phone Name, Eddie GILMORE Primary Care Provider [phone] Reason for Visit * Reason Onset Date Comments Referral 02/02/2023 Back dated refer ral Encounter Details Date Type Department Care Team ([facility] st Contact Info) Description 02/02/2023 Telephone [facility] 230 [place], [place] [phone] Name, MD Eddie 230 [place] [address] Referral (Back dated referral ) Social History [...] on message below regarding referral. Fax number [phone]. Any questions please call [phone] * Telephone Encounter - Amber Roger RN - 02/03/2023 10:34 AM EDT Please review message below regarding backdated referral for these dates * Telephone Encounter - Laure Mcgill - 02/02/2023 2:07 PM EDT Tc from [facility] at [facility] calling in regards to referral needing to be back dated. Patient was seen at the office on 01/03/23 and 01/11/23. Fax number [phone]. Any questions please call [phone]. documented in this encounter Plan of Treatment Upcoming Encounters Date Type Department Care Team (Late st Contact Info) Description 09/30/2024 2:30 PM EDT Office Visit [facility] [address] [place] [address] Hannah Paula NP 230 [place] [address] 10/29/2024 2:30 PM EDT Office Visit [address] [address] Name, MD Eddie [address] [place] [phone] 11/12/2024 9:45 AM EDT Office Visit [address] [address] documented as of this encounter Visit Diagnoses Not on filedocumented in this encounter Additional Health Concerns Assessment Noted Time PHQ-9 Depression Total Score: 10 023 1:16 PM EDT documented as of this encounter Care Teams Strategic Analyst Relationship Specialty Start Date End Date Name, MD Eddie 230 [facility] [place] [address] PCP - General Family Medicine 09/16/15 [place] [facility] 07/01/24 documented as of this encounter
--- OUTSIDE RECORDS SUMMARY | 2024-09-30 12:48 | XMS_ITS | Encounter Summary ---
Author Organization [employer] Address [address] [place] [address] 7 [place] [address] Care Team Providers Care Internal Medicine Nurse Practitioner Name Role Phone Name, Eddie GILMORE Primary Care Provider [phone] Reason for Visit * Reason Onset Date Comments Medication Question 09/05/2023 Encounter Details Date Type Department Care Team ([facility] st Contact Info) Description 09/05/2023 Telephone [facility] 230 [place], [place] [phone] Name, MD Eddie 230 [place] [address] Medication Question Social History Tobacco Use Types [...] Office Visit [facility] [address] [place] [phone] Hannah Paula NP 230 [place] [address] 10/29/2024 2:30 PM EDT Office Visit [facility] [address] [place] [address] Name, MD Eddie 230 [place] [address] 11/12/2024 9:45 AM EDT Office Visit [facility] [address] [place] [address] documented as of this encounter Visit Diagnoses Not on filedocumented in this encounter Additional Health Concerns Assessment Noted Time PHQ-9 Depression Total Score: 10 023 1:16 PM EDT documented as of this encounter Care Teams Internal Medicine Nurse Practitioner Relationship Specialty Start Date End Date Name, MD Eddie [address] [place] [address] PCP - General Family Medicine 09/16/15 [place] A 07/01/24 documented as of this encounter
--- OUTSIDE RECORDS SUMMARY | 2024-09-30 12:48 | XMS_ITS | Encounter Summary ---
Author Organization [employer] Address [address] [place] [address] 7 [place] [address] Care Team Providers Care Health Promotion Officer Name Role Phone Name, Eddie GILMORE Primary Care Provider [phone] Reason for Visit * Reason Comments Med Refill Encounter Details Date Type Department Care Team (Late Contact Info) Description 12/01/2022 Refill [facility]INE 230 [place], [place] [phone] Name, MD Eddie 230 [place] [address] Controlled type 2 diabetes mellitus with complication, without long-term current use of insulin ([facility]) Social History Tobacco Use Types [...] Department Care Team (Late Contact Info) Description 09/30/2024 2:30 PM EDT Office Visit [facility] [place] [address] Hannah Paula NP [address] [place] [address] 10/29/2024 2:30 PM EDT Office Visit [facility] [place] [address] Name, MD Eddie [facility] [place] [address] 11/12/2024 9:45 AM EDT Office Visit [facility] [place] [address] documented as of this encounter Visit Diagnoses Diagnosis Controlled type 2 diabetes mellitus with complication, without long-term current use of insulin ([facility]) documented in this encounter Additional Health Concerns Assessment Noted Time PHQ-9 Depression Total Score: 10 023 1:16 PM EDT documented as of this encounter Care Teams Health Promotion Officer Relationship Specialty Start Date End Date Name, MD Eddie [address] [place] [address] PCP - General Family Medicine 09/16/15 [place] [facility] 07/01/24 documented as of this encounter
--- OUTSIDE RECORDS SUMMARY | 2024-09-30 12:48 | XMS_ITS | Encounter Summary ---
Author Organization [employer] Address [address] [place] [address] 7 [place] [address] Care Team Providers Care Primer Charging Tool Setter Name Role Phone Name, Eddie GILMORE Primary Care Provider [phone] Reason for Visit * Reason Onset Date Comments Medication Question 09/01/2023 Encounter Details Date Type Department Care Team ([facility] st Contact Info) Description 09/01/[address] [facility] MED[facility]INE [address] [place], [place] [phone] Name, MD Eddie 230 [place] [address] Medication Question Social History Tobacco Use Types [...] an add on. Please contact pharmacy at [phone]. documented in this encounter Plan of Treatment Upcoming Encounters Date Type Department Care Team (Late st Contact Info) Description 09/30/2024 2:30 PM EDT Office Visit [facility] [place] [address] Hannah Paula NP [facility] [place] [address] 10/29/2024 2:30 PM EDT Office Visit [facility] [place] [address] Name, MD Eddie [facility] [place] [address] 11/12/2024 9:45 AM EDT Office Visit [facility] [place] [address] documented as of this encounter Visit Diagnoses Not on filedocumented in this encounter Additional Health Concerns Assessment Noted Time PHQ-9 Depression Total Score: 10 023 1:16 PM EDT documented as of this encounter Care Teams Primer Charging Tool Setter Relationship Specialty Start Date End Date [place] [address] PCP - General Family Medicine 09/16/15 [place] BURGOSA 07/01/24 documented as of this encounter
--- OUTSIDE RECORDS SUMMARY | 2024-09-30 12:48 | XMS_ITS | Encounter Summary ---
Author Organization [employer] Address [address] [place] [address] 7 [place] [address] Care Team Providers Care Manufacturing Quality Inspector Name Role Phone Name, Eddie GILMORE Primary Care Provider [phone] Reason for Visit * Reason Onset Date Comments Durable Medical Equipment 09/26/2024 Encounter Details Date Type Department Care Team ([facility] st Contact Info) Description 09/26/2024 Telephone [facility] 230 [place], [place] [phone] Name, MD Eddie 230 [place] [address] Durable Medical Equipment Social History Tobacco Use [...] - 09/26/2024 8:39 AM EDT Tc from [facility] requesting a Hip Protector. P. [phone] F. [phone] ( ATTENTION; [place]) documented in this encounter Plan of Treatment Upcoming Encounters Date Type Department Care Team (Late st Contact Info) Description 09/30/2024 2:30 PM EDT Office Visit [facility] MED[facility] [address] [place] [address] Hannah Paula NP [address] [place] [address] 10/29/2024 2:30 PM EDT Office Visit [facility] [address] [place] [address] Name, MD Eddie [address] [place] [address] 11/12/2024 9:45 AM EDT Office Visit [address] [address] documented as of this encounter Visit Diagnoses Not on filedocumented in this encounter Additional Health Concerns Assessment Noted Time PHQ-9 Depression Total Score: 9 05/10/20 24 11:56 AM EST documented as of this encounter Care Teams Manufacturing Quality Inspector Relationship Specialty Start Date End Date Name, MD Eddie 230 [facility] [place] [address] PCP - General Family Medicine 09/16/15 [place] Sim 07/01/24 documented as of this encounter
--- OUTSIDE RECORDS SUMMARY | 2024-09-30 12:48 | XMS_ITS | Encounter Summary ---
Author Organization [employer] Address [address] [place] [address] 7t [place] [address] Care Team Providers Care Offset Printing Pressmen Name Role Phone Name, Eddie GILMORE Primary Care Provider [phone] Encounter Details Date Type Department Care Team (Late st Contact Info) Description 09/28/2024 Orders Only GENERIC EXTERNAL DATA DEPARTMENT [...] Description 09/30/2024 2:30 PM EDT Office Visit [facility] MEDICINE [address] [place] [address] KaymHannah NP 230 [place] [address] 10/29/2024 2:30 PM EDT Office Visit [address] [address] Name, MD Eddie 230 [place] [address] 11/12/2024 9:45 AM EDT Office Visit [address] [address] documented as of this encounter Procedures Procedure Name Priority Date/Time Associated Diagnosis Comments OBSX1 Routine 09/28/2024 5:12 PM EDT CBC WITH AUTO DIFFERENTIAL Routine 09/28/2024 4:02 PM EDT PROTHROMBIN TIME-INR Routine 09/28/2024 4:02 PM EDT BASIC METABOLIC PANEL Routine 09/28/2024 4:02 PM EDT documented in this encounter Results * OBSX1 (09/28/2024 5:12 PM EDT) OBS1 NEGATIVE NEGATIVE [facility] 09/28/2024 5:12 PM EDT 09/28/2024 5:20 PM EDT us Generic External Data Provider LAB BLOOD ORDERAB LES Final Result Performing Organization Address City/[facility]/ZIP Co de Phone Number [facility] [address] [place] [phone] * (ABNORMAL) Basic Metabolic Panel (09/28/2024 4:02 PM EDT) Sodium 138 135 - 145 mmol/L [facility] Potassium 4.2 3.3 - 5.1 mmol/L [facility] Chloride 104 96 - 108 mmol/L [facility] Carbon Dioxide 25 22 - 29 mmol/L [facility] Anion Gap 13 12 - 20 [facility] Urea Nitrogen (BUN) 21(H) 9 - 16 mg/dL [facility] Creatinine, Serum 0.66 0.5 - 1.4 mg/dL [facility] Creatinine Clr Calc Pharmacy 62.2 [facility] Comment:Provided height and weight: 157.48 cm,63 kg.eGFR (calculated from the MDRD study equation) and eCrCl(calculated from the Cockcroft-Gault equation) are based ondifferent parameters and may not yield comparable results.If eCrCl result is absurd, please check patient'sheight/weight. Estimated Glomerular Filt Rate >60 [facility] Comment:Chronic Kidney Disea se: Estimated GFR < 60 mL/min/1.40h6Nrcsqa Kidney Disease: Estimated GFR < 15 mL/min/1.73m2 Glucose 131(H) 60 - 115 mg/dL [facility] Calcium 9.2 8.4 - 10.2 mg/dL [facility] 09/28/2024 4:02 PM EDT 09/28/2024 4:06 PM EDT us Generic External Data Provider LAB BLOOD ORDERAB LES Final Result Performing Organization Address City/[facility]/ZIP Co de Phone Number [facility] [address] [place] [phone] * Prothrombin Time-INR (09/28/2024 4:02 PM EDT) [facility] Prothrombin Time 11.6 10.9 - 12.4 SEC [facility] INTERNATIONAL NORM RATIO 1.0 0.9 - 1.1 [facility] Comment:INTERNATIONAL NORMAL IZED RATIO (INR) REFERENCE [...] ORDERAB LES Final Result Performing Organization Address City/State/[facility] Co de Phone Number [facility] [address] [place] [phone] * (ABNORMAL) CBC auto differential (09/28/2024 4:02 PM EDT) [facility] White Blood Count 8.2 4.8 - 10.8 X10*3/uL [facility] Red Blood Count 3.58(L) 4.20 - 5.50 X10*6/uL [facility] Hemoglobin 8.5(L) 12.0 - 16.0 g/dl [facility] Hematocrit 28.2(L) 37.0 - 47.0 % [facility] Mean Corpuscular Volume 78.8(L) 80.0 - 98.0 fL [facility] Mean Corpuscular Hemoglobin 23.7(L) 27.0 - 33.0 pg [facility] Mean Corpuscular HGB Conc 30.1(L) 31.0 - 35.0 g/dl [facility] Red Cell Distribution Width 18.2(H) 11.0 - 16.0 % [facility] Platelet Count 344 160 - 400 X10*3/uL [facility] Mean Platelet Volume 9.4 9.4 - 12.3 fL [facility] Neutrophils Percent Auto 66.5 45 - 73 % [facility] Imm Gran Pct Auto 0.4 0.0 - 0.4 % [facility] Lymphocytes Percent Auto 20.0 20 - 40 % [facility] Monocytes Percent Auto 10.3 2 - 11 % [facility] Eosinophils Percent Auto 2.3 0 - 4 % [facility] Basophils Percent Auto 0.5 0 - 2 % [facility] NRBC Pct Auto 0.0 0.0 - 0.2 /100WBC [facility] Neutrophils Absolute Auto 5.4 2.0 - 8.3 x10*3/uL [facility] Imm Gran Abs Auto 0.03 0.00 - 0.03 X10*3/uL [facility] Lymphocytes Absolute Auto 1.6 1.2 - 4.9 X10*3/uL [facility] Monocytes Absolute Auto 0.8 0.1 - 1.2 X10*3/uL [facility] Eosinophils Absolute Auto 0.2 0.0 - 0.4 X10*3/uL [facility] Basophils Absolute Auto 0.0 0.0 - 0.2 X10*3/uL [facility] NRBC Abs Auto 0.000 0.0 - 0.012 X10*3/uL [facility] 09/28/2024 4:02 PM EDT 09/28/2024 4:06 PM EDT us Generic External Data Provider LAB BLOOD ORDERAB LES Final Result [facility] [address] [place] [phone] [phone] documented in this encounter Visit Diagnoses Not on filedocumented in this encounter Additional Health Concerns Assessment Noted Time PHQ-9 Depression Total Score: 9 05/10/20 24 11:56 AM EST documented as of this encounter Care Teams Offset Printing Pressmen Relationship Specialty Start Date End Date Name, Eddie, MD 230 [place] [address] PCP - General Family Medicine 09/16/15 [place] [facility] 07/01/24 documented as of this encounter
--- OUTSIDE RECORDS SUMMARY | 2024-09-30 12:49 | XMS_ITS | Encounter Summary ---
Author Organization [employer] Address [address] [place] [address] 7 [place] [address] Care Team Providers Care Billing Machine Operator Name Role Phone Name, Eddie GILMORE Primary Care Provider [phone] Reason for Visit * Reason Comments Med Refill Encounter Details Date Type Department Care Team (Late Contact Info) Description 01/04/2023 Refill [facility] [address] [place] [address] [phone] Name, MD Eddie 230 [place] [address] Gastroesophageal reflux disease, unspecified whether esophagitis present [...] Description 09/30/2024 2:30 PM EDT Office Visit [facility] [address] [place] [address] Hannah Paula NP 230 [place] [address] 10/29/2024 2:30 PM EDT Office Visit [address] [address] Name, MD [place] [address] 11/12/2024 9:45 AM EDT Office Visit [facility] [address] documented as of this encounter Visit Diagnoses Diagnosis Gastroesophageal reflux disease, unspecified whether esophagitis present documented in this encounter Additional Health Concerns Assessment Noted Time PHQ-9 Depression Total Score: 10 06/2 023 1:16 PM EDT documented as of this encounter Care Teams Billing Machine Operator Relationship Specialty Start Date End Date Name, MD Eddie [address] [place] [address] PCP - General Family Medicine 09/16/15 [place] A 07/01/24 documented as of this encounter
== END 2024-09-30 10:53 | disposition home or self-care (01) ==
LOC: HO.LAB 10:52
PROVIDERS: PCP Internal Medicine Geriatric Medicine; Visit Provider Internal Medicine Endocrinology, Diabetes & Metabolism
DX: E83.39 Other disorders of phosphorus metabolism (principal)
CPT/HCPCS: 36415; 84100

== ENCOUNTER 2024-10-02 10:21 | Outpatient (AMB) | payer MEDICARE, SELFPAY ==
--- NOTE | 2024-10-02 10:49 | A.OFFVIS_ITS ---
Vital Signs 10/02/24 10:52 Height 5 ft 2 in Weight 139 lb 4 oz BMI 25.5 BP 100/52 L Blood Pressure Location Lt brachial Position Sitting Pulse 93 Pulse Source Monitor Intake Visit Reasons: 4 mth f/up/ clearance for hiatal hernia Intake Note: 4 mth f/up clearance for hiatal hernia Pourer Crane Ladle Required: No Accompanied by: Son Allergies scallops Allergy (Unknown, Verified 09/28/24 14:41) Unknown Medication List - Last Reconciled 10/02/24 by Shaquille Trivedi MD albuterol sulfate 90 mcg/actuation 2 puffs inhalation Q4H PRN amlodipine 2.5 mg PO DAILY 90 days atorvastatin 40 mg PO DAILY betamethasone valerate 0.1% 1 appl topical DAILY biotin 5 mg PO DAILY clopidogrel 75 mg PO DAILY docusate sodium (Colace) 100 mg PO DAILY ferrous sulfate (Iron (ferrous sulfate)) 325 mg PO DAILY fluticasone propion-salmeterol 230-21 mcg/actuation (Advair HFA) 2 puffs inhalation Q12H latanoprost 0.005% 1 drp ophthalmic (eye) BEDTIME levetiracetam (Keppra) 750 mg PO BID levothyroxine 112 mcg PO DAILY lidocaine HCl 2% 1 appl topical .at bedtime 4 weeks magnesium 500 mg PO DAILY melatonin 10 mg PO .hs metformin 500 mg PO BID milk thistle 500 mg PO BID mirabegron ER (Myrbetriq) 50 mg PO DAILY omeprazole 20 mg PO BID oxycodone-acetaminophen 5-325 mg 1 tab PO BID PRN pantoprazole 40 mg PO BID peg 400-propylene glycol (PF) 0.4-0.3 % (Systane (PF)) 1 drp ophthalmic (eye) BID simethicone 125 mg PO TID PRN sucralfate 10 mL PO BID trospium ER 60 mg PO DAILY wheat dextrin (Benefiber Sugar Free (dextrin)) 1.5 grams PO BID HPI Comments Details: Pleasant 78-year-old female who is here for follow-up. She has background history of coronary artery disease underwent primary PCI to left anterior descending artery in the past. She was complaining of chest discomfort. She is not very active and has been wheelchair bound. Given her pain at rest we decided to arrange stress test which was abnormal showing inferior and inferoseptal perfusion defect. She was taken for cardiac catheterization after discussion which showed severe right coronary artery as well as LAD stenosis. She underwent PCI to RCA and staged PCI to the LAD. She has no chest discomfort on follow up. She still has BRADLEY. She is very deconditioned and does not do much activities. I have discussed with her about cardiac rehab but she cannot come for frequent visits due to transport issues. She previously saw a [employer] consultant and will d/w PCP to be referred again. 01/09/2023: She returns for follow-up. In November 2022 she got admitted to [facility] with GI bleed. Her aspirin and ticagrelor were held and she underwent endoscopy and no obvious cause was found. She subsequently had C diff infection also. She is waiting to undergo capsule endoscopy. She is denying any bleeding at this point. She is taking aspirin ticagrelor. No chest discomfort or significant shortness of breath. Blood pressure control is good. 05/15/23: She returns for follow-up. She has been experiencing some palpitations. She had blood workup done recently which is showing iron deficiency. She was previously told to hold her iron supplements. I have advised to restart them. She also had 1 episode of indigestion like chest discomfort. 09/06/2023: She returns for follow-up. It appears her GI workup did not reveal any obvious bleeding source. She has been on iron supplementation since then. Her last hemoglobin in July was 11.3. % saturation of iron is 6% and iron level was 21. She still continues to be iron deficient but overall hemoglobin has improved. She is complaining of some chest discomfort which is a pressure- like feeling which has happened to her a few times at night along with palpitations. We tried to do a Holter monitor but she has a severe allergy to electrodes and tape and at times she had skin breakdown and bleeding. Due to this the monitor was not done. She comes in a wheelchair but walks between rooms. Very rarely she gets some discomfort walking around symptoms are mostly at night times infrequently. 11/22/23: She returns for follow-up. She is denying any chest discomfort. He has some fatigue and shortness of breath. She usually come in in electric wheelchair to inside the house she walks with cane for short distances. She does not do any other exercise. She has some orthopnea like episode but also snores at night and has daytime somnolence and headaches. She said she was diagnosed with sleep apnea at some stage but then she lost lot of weight. Recently she has not had any testing. 05/27/2024: She returns for follow-up. She is been experiencing chest discomfort which is a burning sensation when she bends forward or laid down. She has a large hiatal hernia discovered on endoscopy and has been referred to surgery for further assessment. She also has been experiencing some shortness of breath with activities. She is a former smoker. 10/02/2024: Celeste is here for follow-up. She unfortunately had nosebleed and was in the emergency department requiring rhino rocket and cauterization. She has been using saline nasal gel once a day. I have advised her to use at least 3 to 4 times a day. She has a large paraesophageal hernia and significant reflux symptoms and is considering surgery for that. She is saying that she may need a repeat endoscopy where Plavix may have to be stopped completely. She has been on single agent due to concerns for bleeding given advanced age and frailty. Denying any other cardiovascular symptoms currently. Most of the discussion today was about surgical risk for her in case she goes for surgery. [facility] Medical History Paraesophageal hernia Osteoporosis Lower GI bleed Rectal bleed Anemia Stable angina Essential hypertension CVA (cerebral vascular accident) CAD (coronary artery disease) Surgical History Status post cardiac catheterization History of cardiac cath History of adenoidectomy Hx of tonsillectomy Hx of hernia repair History of section History of cholecystectomy History of appendectomy Family History Mother Cancer Father Heart attack Social History Household Members: Children Housing: House Do you presently have visiting nurse or other home services: Yes Unable to assess alcohol history related to: Unknown Alcohol intake: never Patient Tobacco Use Status: Former Tobacco user Years Smoked: 30 +/- e-Cigarette/Vaping Use: Never Used Second Hand Smoke Exposure: No Substance Use Type: Marijuana service: No Current occupational status: retired Current occupation: right hand dominant Review of Systems Const Denies chills, Denies fatigue, Denies fever(s), Denies frequent falls, Denies weakness, Denies weight gain and Denies weight loss ENT Denies dizziness Card Denies chest pain, Denies leg edema, Denies lightheadedness, Denies pa lpitations, Denies dyspnea and Denies dyspnea on exertion Resp Denies cough, Denies dyspnea and Denies dyspnea on exertion GI Denies hematochezia Musc Denies abnormal gait, Denies muscle weakness, Denies numbness, Denies radiating pain into limb and Denies tingling Neuro Denies abnormal gait, Denies dizziness, Denies frequent falls, Denies numbness, Denies tingling and Denies weakness Endo Denies fatigue and Denies palpitations Physical Exam Vital Signs: Last Vital Signs Pulse 93 10/02/24 10:52 BP 100/52 L 10/02/24 10:52 BMI result Body Mass Index 25.5 GENERAL APPEARANCE: in no acute distress. NECK/THYROID: no carotid bruit, no jugular venous distention. SKIN: no suspicious lesions, warm and dry. HEART: no murmurs, regular rate and rhythm, S1, S2 normal. LUNGS: clear to auscultation bilaterally. ABDOMEN: normal, bowel sounds present, soft, nontender, nondistended. EXTREMITIES: no clubbing, cyanosis, or edema. PERIPHERAL PULSES: equal. NEUROLOGIC: nonfocal, alert and oriented. PSYCH: mood/affect full range. Office Procedures EKG Details: Sinus rhythm 93 beats per minute, normal axis, poor R-wave progression, QTC 425 milliseconds. [id number], Complete Assessment & Plan Assessment & Plan (1) COPD (chronic obstructive pulmonary disease): Code(s): J44.9 - Chronic obstructive pulmonary disease, unspecified Category: Medical (2) Stable angina: Code(s): I20.8 - Other forms of angina pectoris Category: Medical (3) Epistaxis: Code(s): R04.0 - Epistaxis Category: Medical (4) Preoperative cardiovascular examination: Code(s): Z01.810 - Encounter for preprocedural cardiovascular examination Category: Medical Plan [age] year female who is here for follow-up. She has background history of coronary disease with multiple stents. She is currently on Plavix monotherapy because of concerns for bleeding. Unfortunately she had epistaxis requiring nasal packing followed by silver nitrate cauterization. She is saying that things are somewhat stable since then. I have advised her to use a saline nasal spray over the counter 3 to 4 times a day. Denying any significant anginal symptoms currently. She has a lot of indigestion like feeling secondary to acid reflux and paraesophageal hernia. She is on PPI and sucralfate. She has seen GI in the past and I have advised her to follow up with them also. From surgical risk point of view, she is intermediate to high-risk for perioperative complications. She is a frail lady and has poor functional capacity. Usually comes to the office in a electric wheelchair. Inside the house she has minimal mobility. Overall functional capacity defines the surgical risk in most patients. In terms of antiplatelet use, given multiple stents and being on Plavix monotherapy it would be quite challenging that she stops everything before surgery if she decides to undergo that. I think 1 strategy can be to change her to aspirin and operate on aspirin. That may decrease her overall risk. I have explained to the patient that being off all antiplatelet agents can increase her risk of stent thrombosis. 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 She will discuss with surgery further. She will follow up with GI also. We will stay involved in her care. Thank you for allowing me to participate in the care of your patient. Please feel free to contact me if you have any questions. Coding Level of Care Code Est Pt Level 4 (39207) Diagnoses COPD (chronic obstructive pulmonary disease) J44.9 Stable angina I20.8 Epistaxis R04.0 Preoperative cardiovascular examination Z01.810 CPT Codes EKG - CPT: [id number], Complete ([id number])
[2024-10-02 10:52] VITALS: BP 100/52; PULSE 93; BMI 25.5
--- OUTSIDE RECORDS SUMMARY | 2024-10-02 12:04 | XMS_ITS | Encounter Summary ---
Author Organization [employer] Address [address] [place] [address] [place] [address] Care Team Providers Care Banking Analyst Name Role Phone Name, Eddie GILMORE Primary Care Provider [phone] Reason for Visit * Reason Onset Date Comments Hospital Follow-up 11/10/2022 Encounter Details Date Type Department Care Team (Late st Contact Info) Description 11/10/[address] [facility] [address] [place], [place] [phone] Name, MD Eddie [address] [place] [address] Social History Tobacco Use Types Packs/Day Years [...] Jackman Sent: 11/21/2022 5:23 PM EDT To: [facility] Team Nurses Hi team! Sent this pt to the ED over the weekend for Hgb 7. Got admitted and looks like recently discharged. Can you please outreach her for status check and sched HDF w/ Name? Thank you!! * Telephone Encounter - Suzette Singh RN - 11/22/2022 11:10 AM EDT T/C to [phone] to schedule HDF apt. No answer. LVM to call back on [phone]. ----- Message from Amber Roger RN sent at 11/22/2022 9:06 AM EDT ----- ----- Message ----- From: DEINS Jackman Sent: 11/21/2022 5:23 PM EDT To: [facility] Team Nurses In team! Sent this pt [...] 10/29/2024 2:30 PM EDT Office Visit [facility] [address] [place] [id number] Eddie Marshall MD [address] [place] [id number] 11/12/2024 9:45 AM EDT Office Visit [address] [address] documented as of this encounter Visit Diagnoses Not on filedocumented in this encounter Care Teams Banking Analyst Relationship Specialty Start Date End Date Eddie Marshall MD [address] [place] [id number] PCP - General Family Medicine 09/16/15 Jerica SEN 07/01/24 documented as of this encounter
--- OUTSIDE RECORDS SUMMARY | 2024-10-02 12:04 | XMS_ITS | Encounter Summary ---
Author Organization [employer] Address [address] [facility] [address] [place] [address] Care Team Providers Care Asset Protection Greeter Name Role Phone Name, Eddie GILMORE Primary Care Provider [phone] Encounter Details Date Type Department Care Team (Late st Contact Info) Description 09/30/2024 2:30 PM EDT Office Visit [facility] [address] [place], [place] [phone] Hannah Paula NP [address] [place], [place] [phone] Low hemoglobin (Primary Dx) Social History Tobacco Use Types [...] Sign Reading Time Taken Comments Blood Pressure 113/66 09/30/2024 2:24 PM EDT Pulse 95 09/30/2024 2:24 PM EDT Temperature 36.7 ??C (98.1 ??F) 09/30/2024 2:24 PM ED T Respiratory Rate 19 09/30/2024 2:24 PM EDT Oxygen Saturation 94% 09/30/2024 2:24 PM EDT Inhaled Oxygen Concentration - - Weight 62.6 kg (138 lb) 09/30/2024 2:24 PM EDT Height 154.9 cm (5' 1 ) 09/30/2024 2:24 PM EDT Body Mass Index 26.07 09/30/2024 2:24 PM EDT documented in this encounter Plan of Treatment Upcoming Encounters Date Type Department Care Team (Late st Contact Info) Description 10/29/2024 2:30 PM EDT Office Visit [facility] [address] [place] [id number] Name, MD Eddie [address] [place] [phone] 11/12/2024 9:45 AM EDT Office Visit [facility] [address] [place] [id number] Scheduled Orders Name Type Priority Associated Diagnoses Orde r Schedule CBC auto differential Lab Routine Low hemoglobin Expected: 09/30/2024 (Approximate), Expires: 09/30/2025 documented as of this encounter Visit Diagnoses Diagnosis Low hemoglobin- Primary documented in this encounter Additional Health Concerns Assessment Noted Time PHQ-9 Depression Total Score: 9 05/10/20 24 11:56 AM EST documented as of this encounter Care Teams Asset Protection Greeter Relationship Specialty Start Date End Date Name, MD Eddie [address] [place] [address] PCP - General Family Medicine 09/16/15 Jerica Sim 07/01/24 documented as of this encounter
--- OUTSIDE RECORDS SUMMARY | 2024-10-02 12:04 | XMS_ITS | Clinical Summary ---
Author Organization [employer] Address [address] [place] [address] 7[address] [place] [address] Care Team Providers Care Animal Therapist Name Role Phone Name, Eddie GILMORE Primary Care Provider [phone] Allergies Active Allergy Reactions Criticality Noted Date [...] 06/01/20 22 Active Blood Glucose Monitoring Suppl (Pulse Verio Flex System) w/Device kit USE DIRECTED [...] in the morning. 01/10/20 23 Active Lancets (SEJENTuch Delica Plus [id number]) miscIndications :Controlled type 2 diabetes mellitus with complication, without long-term current use of insulin ([facility]) USE TO CHECK BLOOD SUGAR TWICE A DAY 100 each 5 09/15/19 24 Active glucose blood (SEJENTuch Verio) test stripIndication s:Controlled type 2 diabetes mellitus with complication, without long-term current use of insulin ([facility]) CHECK BY FINGERSTICK TWICE DAILY 50 strip [...] refer stat to ENT for cauterization, possible MINE MANAGER scope Recommend anterior nasal packing if she is bleeding heavily FPC (current) use of opiate analgesic 03/20 Overview (09/10/2024): Dx: chronic pain syndrome/back pain Rx: Percocet 5/325 every 8 hours Last NITRIC ACID CONCENTRATOR OPERATOR agreement:03/22/24 Tier II (visit every 3 [...] that is chronic ready for her to picker packer today. She understands this is the chronic [...] Encounters Date Type Department Care Team Description 10/01/2024 Telephone [facility] [address] [place] [address] Eddie Marshall MD 09/30/2024 2:30 PM EDT Office Visit [address] [address] Hannah Paula NP Low hemoglobin (Primary Dx) 09/30/2024 Travel 09/30/2024 Orders Only GENERIC EXTERNAL DATA DEPARTMENT Provider, Generic External Data 09/28/2024 Orders Only GENERIC EXTERNAL DATA DEPARTMENT Provider, Generic External Data 09/27/2024 Telephone [facility] [address] [place] [phone] Matilda Millan, MISSION COMMANDER follow up 09/27/[address] [address] Eddie Marshall MD ER Follow-up 09/26/[address] [address] Eddie Marshall MD Durable Medical Equipment 09/24/[address] [address] Eddie Marshall MD Durable Medical Equipment (Hip protectors) 09/24/2024 Telephone [facility] [address] [place] [address] Eddie Marshall MD DME Transport Chair 09/20/2024 Orders Only [facility] External Provider, [facility] 09/19/[address] [address] Eddie Marshall MD Call Back Request 09/15/2024 Refill [facility] [address] [place] [phone] Eddie Marshall MD 09/11/[address] [address] Eddie Marshall MD Durable Medical Equipment 09/10/2024 9:45 AM EDT Office Visit [address] [address] Mckenzie Trent FNP Chronic pain syndrome (Primary Dx); FPC (current) use of opiate analgesic 09/10/2024 Travel 09/09/2024 Telephone [facility] [address] [place] [phone] Eddie Marshall MD 09/05/2024 Refill [facility] [address] [place] [phone] Eddie Marshall MD Chronic pain syndrome 08/27/2024 Orders Only GENERIC EXTERNAL DATA DEPARTMENT Provider, Generic External Data 08/26/2024 Orders Only [facility] External Provider, [facility] 08/19/2024 Refill [facility] [address] [place] [phone] Eddie Marshall MD 08/14/2024 Orders Only GENERIC EXTERNAL DATA DEPARTMENT Provider, Generic External Data 08/13/[address] [address] Eddie Marshall MD Appointment Request 08/09/2024 Telephone [facility] [address] [place] [phone] Sophie Marie MA september recalls 08/09/[address] [address] Sophie Marie MA september recalls 08/09/2024 Refill [facility] [place] [address] Eddie Marshall MD Chronic pain syndrome 08/02/2024 2:30 PM EST Office Visit [facility] [place] [address] Latanya Hoover MD Epistaxis (Primary Dx); Controlled type 2 diabetes mellitus with complication, without long-term current use of insulin ([facility]); Dietary counseling; Exercise counseling; Overweight; Anemia, unspecified type 08/02/2024 Travel 07/30/2024 Telephone [facility] [place] [address] Eddie Marshall MD ER Follow-up 07/23/2024 9:00 AM EST Office Visit [facility] [place] [address] Kelly Montoya MD Chronic pain syndrome (Primary Dx) 07/23/2024 Travel 07/17/2024 Refill [facility] [place] [address] Eddie Marshall MD 07/16/2024 9:45 AM EST Office Visit [facility] [place] [address] Mckenzie Trent FNP Chronic pain syndrome (Primary Dx); 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 07/16/2024 9:15 AM EST Office Visit [facility] [place] [address] Kelly Montoya MD Chronic pain syndrome (Primary Dx) 07/16/2024 Orders Only [facility] External Provider, [facility] 07/16/2024 Travel 07/12/2024 Refill [facility] [place] [address] Eddie Marshall MD 07/12/2024 Refill [facility] [place] [address] Eddie Marshall MD Chronic pain syndrome from Last 3 Months Immunizations Name Administration Dates Next Due Influenza injectable quadriv alent IIV4 with preservative 04/07/2016 Influenza, IIV3, injectable 03/23/2015,1 ,03/08/2013,04/06,05/01/2008,04/19/2007,05/10/2006 ,03/15/2005 Novel [id number], preservative-free 05/22/2009 Pneumococcal Polysaccharide PPSV23 07/11/2013, TD [...] Mass Index 26.07 09/30/2024 2:24 PM EDT Plan of Treatment Upcoming Encounters Date Type Department Care Team (Late st Contact Info) Description 10/29/2024 2:30 PM EDT Office Visit [facility] [address] [place] [address] [phone] Name, MD Eddie [address] [place] [address] [phone] 11/12/2024 9:45 AM EDT Office Visit [facility] [address] [place] [address] [phone] Health Maintenance Due Date Last Done Comments [...] 09/10/2024 1:29 PM EDT Chronic pain syndrome FPC (current) use of opiate analgesic CT CHEST [...] use of insulin ([facility]) POCT GLUCOSE Routine 08/02/2024 2:14 PM EST Controlled type 2 diabetes mellitus with complication, without long-term current use of insulin ([facility]) XR KUB AND UPRIGHT 2 VIEWS Routine [...] DRUG SCREEN Routine 07/16/2024 1:49 PM EST FPC (current) use of opiate analgesic LIPID PANEL, [...] included. Phosphorus 3.0 2.7 - 4.5 mg/dL [facility] 09/30/2024 11:0 0 AM EDT 09/30/2024 11:06 AM EDT us Generic External Data Provider LAB BLOOD ORDERAB LES Final Result [facility] [address] [place] [phone] * OBSX1 (09/28/2024 5:12 PM EDT) Pathologist [facility] OBS1 NEGATIVE NEGATIVE [facility] 09/28/2024 5:12 PM EDT 09/28/2024 5:20 PM EDT us Generic External Data Provider LAB BLOOD ORDERAB LES Final Result [facility] [address] [place] [phone] * (ABNORMAL) CBC auto differential (09/28/2024 4:02 PM EDT) Only the most recent of2 resultswithin the time period is included. [facility] White Blood Count 8.2 4.8 - 10.8 X10*3/uL [facility] Red Blood Count 3.58(L) 4.20 - 5.50 X10*6/uL [facility] Hemoglobin 8.5(L) 12.0 - 16.0 g/dl [facility] Hematocrit 28.2(L) 37.0 - 47.0 % [facility] Mean Corpuscular Volume 78.8(L) 80.0 - 98.0 fL [facility] Mean Corpuscular Hemoglobin 23.7(L) 27.0 - 33.0 pg [facility] Mean Corpuscular HGB Conc 30.1(L) 31.0 - 35.0 g/dl [facility] Red Cell Distribution Width 18.2(H) 11.0 - 16.0 % [facility] Platelet Count 344 160 - 400 X10*3/uL [facility] Mean Platelet Volume 9.4 9.4 - 12.3 fL [facility] Neutrophils Percent Auto 66.5 45 - 73 % [facility] Imm Gran Pct Auto 0.4 0.0 - 0.4 % [facility] Lymphocytes Percent Auto 20.0 20 - 40 % [facility] Monocytes Percent Auto 10.3 2 - 11 % [facility] Eosinophils Percent Auto 2.3 0 - 4 % [facility] Basophils Percent Auto 0.5 0 - 2 % [facility] NRBC Pct Auto 0.0 0.0 - 0.2 /100WBC [facility] Neutrophils Absolute Auto 5.4 2.0 - 8.3 x10*3/uL [facility] Imm Gran Abs Auto 0.03 0.00 - 0.03 X10*3/uL [facility] Lymphocytes Absolute Auto 1.6 1.2 - 4.9 X10*3/uL [facility] Monocytes Absolute Auto 0.8 0.1 - 1.2 X10*3/uL [facility] Eosinophils Absolute Auto 0.2 0.0 - 0.4 X10*3/uL [facility] Basophils Absolute Auto 0.0 0.0 - 0.2 X10*3/uL [facility] NRBC Abs Auto 0.000 0.0 - 0.012 X10*3/uL [facility] 09/28/2024 4:02 PM EDT 09/28/2024 4:06 PM EDT us Generic External Data Provider LAB BLOOD ORDERAB LES Final Result Performing Organization Address City/State/[facility] Co de Phone Number [facility] [address] [place] [phone] * Prothrombin Time-INR (09/28/2024 4:02 PM EDT) Prothrombin Time 11.6 10.9 - 12.4 SEC [facility] INTERNATIONAL NORM RATIO 1.0 0.9 - 1.1 [facility] Comment:INTERNATIONAL NORMAL IZED RATIO (INR) [...] ORDERAB LES Final Result Performing Organization Address City/[facility]/ZIP Co de Phone Number [facility] [address] [place] [address] [phone] * (ABNORMAL) Basic Metabolic Panel (09/28/2024 4:02 PM EDT) Only the most recent of2 resultswithin the time period is included. Sodium 138 135 - 145 mmol/L [facility] Potassium 4.2 3.3 - 5.1 mmol/L [facility] Chloride 104 96 - 108 mmol/L [facility] Carbon Dioxide 25 22 - 29 mmol/L [facility] Anion Gap 13 12 - 20 [facility] Urea Nitrogen (BUN) 21(H) 9 - 16 mg/dL [facility] Creatinine, Serum 0.66 0.5 - 1.4 mg/dL [facility] Creatinine Clr Calc Pharmacy 62.2 [facility] Comment:Provided height and weight: 157.48 cm,63 kg.eGFR (calculated from the MDRD study equation) and eCrCl(calculated from the Cockcroft-Gault equation) are based ondifferent parameters and may not yield comparable results.If eCrCl result is absurd, please check patient'sheight/weight. Estimated Glomerular Filt Rate >60 [facility] Comment:Chronic Kidney Disea se: Estimated GFR < 60 mL/min/[id number] Kidney Disease: Estimated GFR < 15 mL/min/1.73m2 Glucose 131(H) 60 - 115 mg/dL [facility] Calcium 9.2 8.4 - 10.2 mg/dL [facility] 09/28/2024 4:02 PM EDT 09/28/2024 4:06 PM EDT us Generic External Data Provider LAB BLOOD ORDERAB LES Final Result [facility] [address] [place] [phone] * XR Chest 2 Views (09/20/2024 10:12 AM EDT) Anatomical Region Laterality Modality Chest Radiographic Tanya ging 09/20/2024 10:1 2 AM EDT Narrative 09/20/2024 10:27 AM EDT ? [facility] ?[address] ?[place] [address] ?XRay Report ? Signed ? Patient: Celeste Abad ?MR#: [id number] ?? 4 ? : 1945 ?Acct:[id number] ? Age/Sex: 78 / F ?ADM Date: 09/20/24 ? Loc: HO.XRAY ? Attending Dr: Maria Esther Blum MINE MANAGER ? Ordering Physician: Maria Esther Blum NP ?? Date of Service: 09/20/24 ?? Procedure(s): XR chest 2V ?? Accession Number(s): [id number] ? cc: Name,Eddie GILMORE; Maria Esther Blum [...] DD/ 1012 ? TD/TT: 09/20/24 1017 ? Lead Slot Technician: ? Procedure Note Donotuseinterpreter, Image - 09/20/[address] [address] XRay Report Signed Patient: Celeste AbadMR#: [id number] 4 : 7Acct:[id number] Age/Sex: 78 / FADM Date: 09/20/24 Loc: HO.XRAY Attending Dr: Maria Esther Blum NP Ordering Physician: Maria Esther Blum NP Date of Service: 09/20/24 Procedure(s): XR chest 2V Accession Number(s): [id number] cc: Eddie Marshall MD; Maria Esther Blum [...] 09/20/24 1024 DD/ 1012 TD/TT: 09/20/24 1017 Lead Slot Technician: [facility] External Provider IMG XR PROCEDURES Final [...] Suarez [place] - 09/10/2024 1:30 PM EDT Lot:[id number] Exp: 02/06/2028 Mckenzie Trent STRADDLE BUG POINT OF CARE TEST ENTER/EDIT ORDERABLES Final Result * CT Chest w/o Contrast (08/27/2024 2:12 PM EDT) Anatomical Region Laterality Modality Body, Chest Computed Tomogra phy 08/27/2024 2:12 PM EDT Narrative 08/27/2024 2:14 PM EDT ? [facility] ?[address] ?[place] [address] ? [address] Scan Report ? Signed ? Patient: Celeste Abad ?MR#: [id number] ?? 4 ? : 1945 ?Acct:[id number] ? Age/Sex: 78 / F ?ADM Date: 08/26/24 ? Loc: HO.CT ? Attending Dr: Maria Esther Blum MINE MANAGER ? Ordering Physician: Maria Esther Blum NP ?? Date of Service: 08/26/24 ?? Procedure(s): CT chest wo IV con ?? Accession Number(s): [id number] ? cc: Eddie Marshall MD; Stucenski,Maria Esther MINE MANAGER ? Report Number: ?? [id number]: Total DLP = ??208.00 mGy-cm ? CLINICAL [...] DD/ 1412 ? TD/TT: 08/27/24 1412 ? Lead Slot Technician: ? Procedure Note Donjose ramonter, Image - 08/27/[address] [place] [address] [address] Scan Report Signed Patient: Vent[place] Abad#: [id number] 4 : 1945cct:[id number] Age/Sex: 78 / FADM Date: 08/26/24 Loc: HO.CT Attending Dr: Maria Esther Blum NP Ordering Physician: Maria Esther Blum NP Date of Service: 08/26/24 Procedure(s): CT chest wo IV con Accession Number(s): [id number] cc: NameEddie MD; Maria Esther Blum NP Report Number: [id number]: Total DLP = 208.00 mGy-cm CLINICAL HISTORY: [...] Riley MD in OV> 08/27/24 141 DD/ 11 TD/TT: 08/27/241411 Lead Slot Technician: [facility] External Provider IM CT PROCEDURES Final Result * (ABNORMAL) Iron And Total Iron Binding Capacity (08/27/2024 1:25 PM EDT) Iron 14(L) 30 - 160 mcg/dL [facility] Total Iron Binding Capacity 295 228 - 428 mcg/dL [facility] Percent Iron Saturation 5(L) 15 - 50 % [facility] Unsaturated Iron Binding 281 ug/dL [facility] 08/27/2024 1:25 PM EDT 08/27/2024 1:25 PM EDT us Generic External Data Provider LAB BLOOD ORDERAB LES Final Result [facility] [address] [place] [phone] * (ABNORMAL) CBC (08/27/2024 1:25 PM EDT) White Blood Count 9.0 4.8 - 10.8 X10*3/uL [facility] Red Blood Count 4.06(L) 4.20 - 5.50 X10*6/uL [facility] Hemoglobin 10.0(L) 12.0 - 16.0 g/dl [facility] Hematocrit 33.1(L) 37.0 - 47.0 % [facility] Mean Corpuscular Volume 81.5 80.0 - 98.0 fL [facility] Mean Corpuscular Hemoglobin 24.6(L) 27.0 - 33.0 pg [facility] Mean Corpuscular HGB Conc 30.2(L) 31.0 - 35.0 g/dl [facility] Red Cell Distribution Width 16.3(H) 11.0 - 16.0 % [facility] Platelet Count 393 160 - 400 X10*3/uL [facility] Mean Platelet Volume 9.4 9.4 - 12.3 fL [facility] NRBC Pct Auto 0.0 0.0 - 0.2 /100WBC [facility] NRBC Abs Auto 0.000 0.0 - 0.012 X10*3/uL [facility] 08/27/2024 1:25 PM EDT 08/27/2024 1:25 PM EDT us Generic External Data Provider LAB BLOOD ORDERAB LES Final Result Performing Organization Address City/[facility]/ZIP Co de Phone Number [facility] [address] [place] [address] [phone] * Ferritin (08/27/2024 1:25 PM EDT) Ferritin 35 10 - 250 ng/mL [facility] 08/27/2024 1:25 PM EDT 08/27/2024 1:25 PM EDT us Generic External Data Provider LAB BLOOD ORDERAB LES Final Result Performing Organization Address City/[facility]/ZIP Co de Phone Number [facility] [address] [place] [address] [phone] * FL Esophagus Barium Swallow w/Air (08/14/2024 9:52 AM EST) Anatomical Region Laterality Modality Head, Neck Radiographic Tanya ging 08/14/2024 9:52 AM EST Narrative 08/15/2024 4:55 PM EST ? [facility] ?[address] ?[place] [address] ? Fluoroscopy Report ? Signed ? Patient: Jenniffer,Celeste ?MR#: [id number] ?? 4 ? : 1945 ?Acct:[id number] ? Age/Sex: 78 / F ?ADM Date: //25 ? Loc: HO.XRAY ? Attending Dr: Julia Li MD ? Ordering Physician: Julia Li MD ?? Date of Service: 08/14/24 ?? Procedure(s): FL barium swallow with air ?? Accession Number(s): [id number] ? cc: Joanna,Eddie GILMORE; Julia Li MD [...] DD/ 0952 ? TD/TT: 08/14/24 1020 ? Lead Slot Technician: ? Procedure Note Donjose ramonter, Image - 08/15/2024 [place] [address] Fluoroscopy Report Signed Patient: Celeste AbadMR#: [id number] 4 : 1945cct:[id number] Age/Sex: 78 / FADM Date: 08/14/24 Loc: HO.XRAY Attending Dr: Julia Li MD Ordering Physician: Julia Li MD Date of Service: 08/14/24 Procedure(s): FL barium swallow with air Accession Number(s): [id number] cc: Eddie Marshall MD; Julia Li MD [...] 08/15/24 1654 DD/ 0952 TD/TT: 08/14/24 1020 Lead Slot Technician: [facility] External Provider IMG FLU OROSCOPY PROCEDURES Final Result * Immunofixation (ALEXANDER), Urine (08/14/2024 9:41 AM EST) ALEXANDER Interpretation SEE NOTE [facility] Comment:Normal pattern. No m onoclonal proteins detected.The supplier of the testing reagents for this assayhas changed. Detection of small monoclonal proteins mayvary by test system.THIS TEST WAS PERFORMED AT:[facility] [place] [id number] PAYNE MD 08/14/2024 9:41 AM EST 08/14/2024 10:39 AM EST us Generic External Data Provider LAB URINE ORDERAB LES Final Result [facility] [address] [place] [address] [phone] * (ABNORMAL) Protein, Total and Protein??Electrophoresis (08/14/2024 9:37 AM EST) Prot Elec - Total Protein 6.7 6.1 - 8.1 g/dL [facility] Prot Elec - Albumin 3.2(A) 3.8 - 4.8 g/dL [facility] Prot Elec - Alpha1 0.4(A) 0.2 - 0.3 g/dL [facility] Prot Elec - Alpha2 1.1(A) 0.5 - 0.9 g/dL [facility] Prot Elec - Beta 1 0.5 0.4 - 0.6 g/dL [facility] Prot Elec - Beta 2 0.5 0.2 - 0.5 g/dL [facility] Prot Elec - Gamma 1.0 0.8 - 1.7 g/dL [facility] PES - Abn Protein Band 1 TNP [facility] PES-Abn Protein Band 2 TNP [facility] PES-Abn Protein Band 3 [facility] Prot Elec - Interpretation SEE NOTE [facility] Comment:Evaluation is consis tent with an acute inflammatorypattern.THIS TEST WAS PERFORMED AT:[facility] [employer] [address] [phone]CATIA PAYNE MD 08/14/2024 9:37 AM EST 08/14/2024 9:41 AM EST Generic External Data Provider LAB BLOOD ORDERAB LES Final Result [facility] [address] [place] [phone] * (ABNORMAL) POCT HGB A1C (08/02/2024 [...] ? [facility] ?[address] ?[place] [address] ?XRay Report ? Signed ? Patient: Jenniffer,Celeste ?MR#: [id number] ?? 4 ? : 1945 ?Acct:[id number] ? Age/Sex: 78 / F ?ADM Date: 01/28/25 ? Loc: HO.ED ? Attending Dr: ? Ordering Physician: Rhea Ken ?? Date of Service: 07/16/24 ?? Procedure(s): XR KUB ?? Accession Number(s): [id number] ? cc: Rhea Ken; Name,Eddie GILMORE ? [...] ? DD/ 06 ? TD/TT: 07/16/241906 ? Lead Slot Technician: ? Procedure Note Donjose ramonter, Image - 07/16/[address] [address] XRay Report Signed Patient: Celeste AbadMR#: [id number] 4 : 1945cct:[id number] Age/Sex: 78 / FADM Date: 07/16/24 Loc: HO.ED Attending Dr: Ordering Physician: Rhea Ken Date of Service: 07/16/24 Procedure(s): XR KUB Accession Number(s): [id number] cc: Rhea Ken; Name,Eddie GILMORE CLINICAL HISTORY: [...] in OV> 07/16/241906 DD/ 06 TD/TT: 07/16/241906 Lead Slot Technician: [facility] External Provider IMG XR PROCEDURES Final Result * SARS-CoV-2 RNA, Influenza A/B, and RSV RNA, Ql NAAT (07/16/2024 7:06 PM EST) Influenza A PCR NEGATIVE Negative [facility] Influenza B PCR NEGATIVE Negative [facility] Resp Syncy Virus RNA Qual PCR NEGATIVE Negative [facility] SARS COV2 PCR NEGATIVE Negative [facility] Comment:All test results mus t be [...] use by authorized laboratories.Testing performed on the [employer] GeneXpert utilizingreal-time RT-PCR.All SARS CoV2 and positive influenza A/B results arereported to [facility]. 07/16/2024 7:06 PM EST 07/16/2024 7:11 PM EST Generic External Data Provider LAB MICROBIOLOGY - GENERAL ORDERABLES Final Result Performing Organization Address City/[facility]/ZIP Co de Phone Number [facility] [address] [place] [phone] * Magnesium (07/16/2024 7:06 PM EST) Pathologist [facility] Magnesium 2.2 1.6 - 2.6 mg/dL [facility] 07/16/2024 7:06 PM EST 07/16/2024 7:11 PM EST Generic External Data Provider LAB BLOOD ORDERAB LES Final Result Performing Organization Address [facility]/ZIP Co de Phone Number [facility] [address] [place] [phone] * Lipase (07/16/2024 7:06 PM EST) Pathologist [facility] Lipase 8 8 - 78 U/L [facility] 07/16/2024 7:06 PM EST 07/16/2024 7:11 PM EST Generic External Data Provider LAB BLOOD ORDERAB LES Final Result Performing Organization Address [facility] Co de Phone Number [facility] [address] [place] [phone] * (ABNORMAL) Hepatic Function Panel (07/16/2024 7:06 PM EST) Bilirubin, Total 0.4 0.0 - 1.0 mg/dL [facility] Bilirubin, Direct 0.2 0.0 - 0.5 mg/dL [facility] Aspartate Amino Transferase 37(H) 5 - 31 U/L [facility] Alanine Aminotransferase 27 0 - 31 U/L [facility] Total Protein 7.5 6.5 - 8.0 g/dL [facility] Albumin Level 3.9 3.5 - 5.0 g/dL [facility] Alkaline Phosphatase 136(H) 39 - 117 U/L [facility] 07/16/2024 7:06 PM EST 07/16/2024 7:11 PM EST Generic External Data Provider LAB BLOOD ORDERAB LES Final Result Performing Organization Address [facility] Co in Phone Number [facility] [address] [place] [phone] * (ABNORMAL) Lipid Panel, Standard (01/16/2024 9:40 AM EDT) Triglycerides 199(H) <150 mg/dL [facility] Comment:Desirable Triglyceri de: less than 150 mg/dLBorderline High Triglyceride 150-199 mg/dLHigh Triglyceride: 200-499 mg/dLVery High Triglyceride: greater than or equal to 5OO mg/dL Cholesterol 150 <200 mg/dL [facility] Comment:Desirable Cholestero l: less than 200 mg/dLBorderline High Cholesterol: 200-239 mg/dLHigh Cholesterol: greater than 239 mg/dL LDL Cholesterol Calculated 63 <100 mg/dL [facility] [facility] Comment:Desirable LDL: less than 100 [...] ORDERABLES Final Resul t Performing Organization Address [facility] Co de Phone Number [facility] [address] [place] [phone] * Albumin, Random Urine W/Creatinine (01/16/2024 9:35 AM EDT) Creatinine, Urine 27.62 mg/dL [facility] Microalbumin Urine <5.0 mg/L [facility] Microalbum Creatinine Ratio Ur TNP <30 ug/mg cr [facility] Comment:Unable to calculate albumin/creatinine ratio due to lowmicroalbumin or creatinine result. Urine (Urine, Random) 01/16/2024 9:35 AM EDT 01/16/2024 11:12 AM EDT us Eddie Marshall MD LAB URINE ORDERABLES Final Resul t Performing Organization Address [facility]/ZIP Co de Phone Number [facility] [address] [place] [phone] * Hm Diabetes Eye Exam (05/16/2023) Eye Exam Normal Normal us Eddie Marshall MD HEALTH MAINTENANCE Final Result * (ABNORMAL) Hepatitis Panel, General (11/18/2022 2:07 PM EDT) Hepatitis A Antibody Total REACTIVE( A) NON-REACT NAHID [employer] Comment: For additional information, please refer to http://Netuitive.Catmoji/faq/IZM289 (This link is being provided for informational/ educational purposes only.) Hepatitis B Surface Antibody QL NON-REACT NAHID NON-REACT NAHID [employer] Hepatitis B Surface Ag NON-REACT NAHID NON-REACT NAHID [employer] Hepatitis B Core Antibody Total NON-REACT NAHID NON-REACT NAHID [facility] Hepatitis C Antibody NON-REACT NAHID NON-REACT NAHID [employer] Index 0.07 <1.00 [employer] Comment: HCV antibody was non-reactive. There is no laboratory evidence of HCV infection. In most cases, no further action is required. However, if recent HCV exposure is suspected, a test for HCV RNA (test code 61012) is suggested. For additional information please refer to http://Netuitive.Catmoji/faq/ICN12h1 (This link is being provided for informational/ educational purposes only.) 11/18/2022 2:07 PM EDT 11/18/2022 2:09 PM EDT Narrative [facility] - 11/19/2022 6:51 AM EDT COLLECTION KIT GIVEN TO PATIENT. PATIENT ADVISED TO RETURN. Mckenzie Pillai [facility] BLOOD ORDERABLES Final Res ult [facility] [address], [place] [address] [employer] [place] [employer] [facility] [address] [place] [address] from Last 3 Months or Most Recently Relevant to Health Maintenance Insurance [employer]IL[place] MANZ[employer] [id number] Care Teams Animal Therapist Relationship Specialty Start Date End Date Name, MD Eddie [address] [place] [address] PCP - General Family Medicine 09/16/15 Jerica [facility] 07/01/24
--- OUTSIDE RECORDS SUMMARY | 2024-10-02 12:04 | XMS_ITS | Encounter Summary ---
Author Organization [employer] Address [address] [facility] 7t [place] [address] Care Team Providers Care Hospitalist Nocturnist Physician Name Role Phone Name, Eddie GILMORE Primary Care Provider [phone] Encounter Details Date Type Department Care Team (Latest Contact Info) Description 09/30/2024 Travel Social History Tobacco Use Types Packs/Day [...] PM EDT Office Visit [facility] [address] [place] [address] Name, MD Eddie [address] [place] [address] 11/12/2024 9:45 AM EDT Office Visit [address] [address] documented as of this encounter Visit Diagnoses Not on filedocumented in this encounter Additional Health Concerns Assessment Noted Time PHQ-9 Depression Total Score: 9 05/10/20 24 11:56 AM EST documented as of this encounter Care Teams Hospitalist Nocturnist Physician Relationship Specialty Start Date End Date Name, MD Eddie [address] [place] [address] PCP - General Family Medicine 09/16/15 Jerica [facility] 07/01/24 documented as of this encounter
--- OUTSIDE RECORDS SUMMARY | 2024-10-02 12:04 | XMS_ITS | Encounter Summary ---
Author Organization [employer] Address [address] [facility] 7t [place] [address] Care Team Providers Care Office Specialist Name Role Phone Name, Eddie GILMORE Primary Care Provider Encounter Details Date Type Department Care Team ([facility] st Contact Info) Description 10/01/2024 Telephone [facility] [address] [place], [place] [phone] Name, MD Eddie [address] [place] [address] Social History Tobacco Use Types Packs/Day Years [...] encounter Miscellaneous Notes * Telephone Encounter - Coby Santiago RN - 10/01/2024 1:45 PM EDT Masspat checked by freelance copywriter on 10/01/24. Pt picked up a 28 day supply of oxyCODONE- acetaminophen (Percocet) 5-325 MG tablet on 09/10/24. Pt not due for refill until 10/08/24. Message forwarded to blue team nurses for 10/04/24 to review masspat and pend medication to PCP as office is closed 10/07/24. * Telephone Encounter - Marisol Lobo LPN - 10/01/2024 1:13 PM EDT Received fax from [facility] requesting refill on Oxycodone-Acetaminophen 5- 325 mg. documented in this encounter Plan of Treatment Upcoming Encounters Date Type Department Care Team (Late st Contact Info) Description 10/29/2024 2:30 PM EDT Office Visit [facility] [address] [place] [address] Name, MD Eddie [address] [place] [address] 11/12/2024 9:45 AM EDT Office Visit [facility] [address] [place] [address] documented as of this encounter Visit Diagnoses Not on filedocumented in this encounter Additional Health Concerns Assessment Noted Time PHQ-9 Depression Total Score: 9 05/10/20 24 11:56 AM EST documented as of this encounter Care Teams Office Specialist Relationship Specialty Start Date End Date Name, MD Eddie [address] [place] [address] PCP - General Family Medicine 09/16/15 Jerica S[facility] 07/01/24 documented as of this encounter
--- OUTSIDE RECORDS SUMMARY | 2024-10-02 12:05 | XMS_ITS | Encounter Summary ---
Author Organization [employer] Address [address] [place] [address] 7 [place] [address] Care Team Providers Care Side Piece Coverer Name Role Phone Name, Eddie GILMORE Primary Care Provider [phone] Reason for Visit * Reason Onset Date Comments Active Med List 06/28/2023 Encounter Details Date Type Department Care Team ([facility] st Contact Info) Description 06/28/2023 Telephone [facility] [address] [place], [place] [phone] Name, MD Eddie [address] [place] [address] Active Med List Social History Tobacco Use [...] Be requesting a updated active medication list data analyst report writer did attempt to transfer to Medical records so that she can obtain this information but they kept transferring back to the call center. [facility] [address], [place], [place] [phone] documented in this encounter Plan of Treatment Upcoming Encounters Date Type Department Care Team (Late st Contact Info) Description 10/29/2024 2:30 PM EDT Office Visit [facility] [address] [place] [address] Name, MD Eddie [address] [place] [address] 11/12/2024 9:45 AM EDT Office Visit [facility] [address] [place] [address] documented as of this encounter Visit Diagnoses Not on filedocumented in this encounter Additional Health Concerns Assessment Noted Time PHQ-9 Depression Total Score: 10 023 1:16 PM EDT documented as of this encounter Care Teams Side Piece Coverer Relationship Specialty Start Date End Date Name, MD Eddie [address] [facility] [place] [address] PCP - General Family Medicine 09/16/15 Jerica SEN 07/01/24 documented as of this encounter
--- OUTSIDE RECORDS SUMMARY | 2024-10-02 12:05 | XMS_ITS | Encounter Summary ---
Author Organization [employer] Address [address] [place] [address] 7t [place] [address] Care Team Providers Care Applications Programmer Name Role Phone Name, Eddie GILMORE Primary Care Provider [phone] Encounter Details Date Type Department Care Team ([facility] st Contact Info) Description 12/07/2022 Telephone [facility] 230 [place], [place] [phone] Name, MD Eddie [address] [place] [address] Social History Tobacco Use Types Packs/Day Years [...] update PCP now. Ordering provider Pierce Pillai SENIOR GRAPHIC DESIGNER Follow with fredyn as indicated. Results faxed at time of call to [phone]. Ref.# [id number] C documented in this encounter Plan of Treatment Upcoming Encounters Date Type Department Care Team (Late st Contact Info) Description 10/29/2024 2:30 PM EDT Office Visit [facility] [address] [place] [address] Name, MD Eddie [address] [place] [address] 11/12/2024 9:45 AM EDT Office Visit [address] [address] documented as of this encounter Visit Diagnoses Not on filedocumented in this encounter Additional Health Concerns Assessment Noted Time PHQ-9 Depression Total Score: 10 023 1:16 PM EDT documented as of this encounter Care Teams Applications Programmer Relationship Specialty Start Date End Date Name, MD Eddie [address] [place] [address] PCP - General Family Medicine 09/16/15 [facility] [facility] 07/01/24 documented as of this encounter
--- OUTSIDE RECORDS SUMMARY | 2024-10-02 12:05 | XMS_ITS | Encounter Summary ---
Author Organization [employer] Address [address] [place] [address] 7 [place] [address] Care Team Providers Care Freight Car Inspector Name Role Phone Name, Eddie GILMORE Primary Care Provider [phone] Reason for Visit * Reason Comments Med Refill Encounter Details Date Type Department Care Team (Late Contact Info) Description 12/01/2022 Refill [facility] [address] [place], [place] [phone] Name, MD Eddie 230 [place] [address] Controlled type 2 diabetes mellitus with complication, without long-term current use of insulin ([facility]) Social History Tobacco Use Types Packs/Day Years [...] Description 10/29/2024 2:30 PM EDT Office Visit [facility] [place] [address] Name, MD Eddie [facility] [place] [address] 11/12/2024 9:45 AM EDT Office Visit [facility] [place] [address] documented as of this encounter Visit Diagnoses Diagnosis Controlled type 2 diabetes mellitus with complication, without long-term current use of insulin ([facility]) documented in this encounter Additional Health Concerns Assessment Noted Time PHQ-9 Depression Total Score: 10 023 1:16 PM EDT documented as of this encounter Care Teams Freight Car Inspector Relationship Specialty Start Date End Date Name, [place] [address] PCP - General Family Medicine 09/16/15 Jerica [facility] 07/01/24 documented as of this encounter
--- OUTSIDE RECORDS SUMMARY | 2024-10-02 12:05 | XMS_ITS | Encounter Summary ---
Author Organization [employer] Address [address] [place] [address] 7 [place] [address] Care Team Providers Care Canal Superintendent Name Role Phone Name, Eddie GILMORE Primary Care Provider [phone] Reason for Visit * Reason Comments Med Refill Encounter Details Date Type Department Care Team (Late st Contact Info) Description 06/18/2023 Refill [facility] 230 [place], [place] [phone] Name, MD Eddie 230 [place], [place] [phone] Chronic pain syndrome Social History Tobacco Use [...] Description 10/29/2024 2:30 PM EDT Office Visit [address] [address] NameEddie MD [address] [place] [address] 11/12/2024 9:45 AM EDT Office Visit [address] [address] documented as of this encounter Visit Diagnoses Diagnosis Chronic pain syndrome documented in this encounter Additional Health Concerns Assessment Noted Time PHQ-9 Depression Total Score: 10 023 1:16 PM EDT documented as of this encounter Care Teams Canal Superintendent Relationship Specialty Start Date End Date NameEddie MD [address] [place] [address] PCP - General Family Medicine 09/16/15 Jerica [facility] 07/01/24 documented as of this encounter
--- OUTSIDE RECORDS SUMMARY | 2024-10-02 12:05 | XMS_ITS | Encounter Summary ---
Author Organization [employer] Address [address] [place] [address] 7 [place] [address] Care Team Providers Care Sleep Tech Name Role Phone Name, Eddie GILMORE Primary Care Provider [phone] Encounter Details Date Type Department Care Team ([facility] Contact Info) Description 11/18/2022 Abstract [facility] [address] [place] [address] [phone] Name, MD Eddie [address] [place] [address] [phone] Social History Tobacco Use Types Packs/Day Years [...] Upcoming Encounters Date Type Department Care Team ([facility] Contact Info) Description 10/29/2024 2:30 PM EDT Office Visit [facility] [address] [place] [address] Name, MD Eddie [address] [place] [address] [phone] 11/12/2024 9:45 AM EDT Office Visit [facility] [address] [place] [address] documented as of this encounter Visit Diagnoses Not on filedocumented in this encounter Care Teams Sleep Tech Relationship Specialty Start Date End Date Name, MD Eddie [address] [place] [address] PCP - General Family Medicine 09/16/15 Jerica A 07/01/24 documented as of this encounter
--- OUTSIDE RECORDS SUMMARY | 2024-10-02 12:05 | XMS_ITS | Encounter Summary ---
Author Organization [employer] Address [address] [place] [address] 7 [place] [address] Care Team Providers Care Disability Liaison Officer Name Role Phone Name, Eddie GILMORE Primary Care Provider [phone] Reason for Visit * Reason Onset Date Comments Durable Medical Equipment 09/26/2024 Encounter Details Date Type Department Care Team ([facility] st Contact Info) Description 09/26/2024 Telephone [facility] [address] [place], [place] [phone] Name, MD Eddie [address] [place] [address] Durable Medical Equipment Social History Tobacco Use [...] * Telephone Encounter - Fadia Adrian - 09/30/2024 2:08 PM EDT RX for hip protector signed and faxed to [place] . [facility]. If patient calls to check status on above, please advise them to contact [facility] [address] services team @[phone] . * Telephone Encounter - Clari Moss - 09/26/2024 8:39 AM EDT Tc from [facility] requesting a Hip Protector. P. [phone] F. [phone] ( ATTENTION; [place]) documented in this encounter Plan of Treatment Upcoming Encounters Date Type Department Care Team (Late st Contact Info) Description 10/29/2024 2:30 PM EDT Office Visit [facility] [address] [place] [address] Name, MD Eddie [address] [place] [address] 11/12/2024 9:45 AM EDT Office Visit [facility] [address] [place] [address] documented as of this encounter Visit Diagnoses Not on filedocumented in this encounter Additional Health Concerns Assessment Noted Time PHQ-9 Depression Total Score: 9 05/10/20 24 11:56 AM EST documented as of this encounter Care Teams Disability Liaison Officer Relationship Specialty Start Date End Date Name, MD Eddie [address] [place] [address] PCP - General Family Medicine 09/16/15 [place] [facility] 07/01/24 documented as of this encounter
--- OUTSIDE RECORDS SUMMARY | 2024-10-02 12:05 | XMS_ITS | Encounter Summary ---
Author Organization [employer] Address [address] [place] [address] 7t [place] [address] Care Team Providers Care Exhaust And Muffler Repairer Name Role Phone Name, Eddie GILMORE [...] Description 10/29/2024 2:30 PM EDT Office Visit [address] [address] NameEddie MD [address] [place] [address] 11/12/2024 9:45 AM EDT Office Visit [address] [address] documented as of this encounter Procedures Procedure Name Priority Date/Time Associated Diagnosis Comments PHOSPHATE ( PHOSPHORUS) Routine 09/30/2024 11:00 AM EDT documented in this encounter Results * Phosphate (As Phosphorus) (09/30/2024 11:00 AM EDT) Phosphorus 3.0 2.7 - 4.5 mg/dL [facility] 09/30/2024 11:0 0 AM EDT 09/30/2024 11:06 AM EDT us Generic External Data Provider LAB BLOOD ORDERAB LES Final Result [facility] [address] [place] [address] [phone] documented in this encounter Visit Diagnoses Not on filedocumented in this encounter Additional Health Concerns Assessment Noted Time PHQ-9 Depression Total Score: 9 05/10/20 24 11:56 AM EST documented as of this encounter Care Teams Exhaust And Muffler Repairer Relationship Specialty Start Date End Date NameEddie MD 230 [facility] [place] [address] PCP - General Family Medicine 09/16/15 Jerica SEN 07/01/24 documented as of this encounter
--- OUTSIDE RECORDS SUMMARY | 2024-10-02 12:05 | XMS_ITS | Encounter Summary ---
Author Organization [facility] [employer] Address [address] [place] [address] [place] [address] Care Team Providers Care Director Corporate Name Role Phone NameEddie MD Primary Care Provider [phone] Reason for Visit * Reason Comments Med Refill Encounter Details Date Type Department Care Team (Late Contact Info) Description 02/26/2023 Refill [facility] [address] [place] [address] [phone] NameEddie MD [address] [place] [address] [phone] Chronic pain syndrome Social History Tobacco Use [...] 10/29/2024 2:30 PM EDT Office Visit [facility] [address] [place] [address] [phone] Eddie Marshall MD [address] [place] [address] [phone] 11/12/2024 9:45 AM EDT Office Visit [facility] [address] [place] [address] documented as of this encounter Visit Diagnoses Diagnosis Chronic pain syndrome documented in this encounter Additional Health Concerns Assessment Noted Time PHQ-9 Depression Total Score: 10 023 1:16 PM EDT documented as of this encounter Care Teams Director Corporate Relationship Specialty Start Date End Date Name, MD Eddie [address] [place] [address] PCP - General Family Medicine 09/16/15 Jerica A 07/01/24 documented as of this encounter
--- OUTSIDE RECORDS SUMMARY | 2024-10-02 12:05 | XMS_ITS | Encounter Summary ---
Author Organization [employer] Address [address] [place] [address] 7 [place] [address] Care Team Providers Care Casket Trimmer Name Role Phone Name, Eddie GILMORE Primary Care Provider [phone] Reason for Visit * Reason Onset Date Comments ER Follow-up 09/27/2024 Encounter Details Date Type Department Care Team ([facility] st Contact Info) Description 09/27/2024 Telephone [facility] [address] [place], [place] [phone] Name, MD Eddie [address] [place] [address] ER Follow-up Social History Tobacco Use Types [...] ED visit on : Date: 09/26/24 Hospital: [facility] Seen for: Nose bleeds Symptomatic yes . [...] Description 10/29/2024 2:30 PM EDT Office Visit [facility] [address] [place] [phone] Eddie Marshall MD [address] [place] [address] 11/12/2024 9:45 AM EDT Office Visit [facility] [address] [place] [address] documented as of this encounter Visit Diagnoses Not on filedocumented in this encounter Additional Health Concerns Assessment Noted Time PHQ-9 Depression Total Score: 9 05/10/20 24 11:56 AM EST documented as of this encounter Care Teams Casket Trimmer Relationship Specialty Start Date End Date Eddie Marshall MD 230 [facility] [place] [address] PCP - General Family Medicine 09/16/15 Jerica [facility] 07/01/24 documented as of this encounter
--- OUTSIDE RECORDS SUMMARY | 2024-10-02 12:05 | XMS_ITS | Encounter Summary ---
Author Organization [employer] Address [address] [place] [address] 7t [place] [address] Care Team Providers Care Stitch Bonder Machine Operator Helper Name Role Phone Name, Eddie GILMORE Primary Care Provider [phone] Encounter Details Date Type Department Care Team [...] [facility] MEDICINE [address] [place] [address] Name, MD Eddie [address] [place] [address] 11/12/2024 9:45 AM EDT Office Visit [facility] MED[facility]INE [address] [place] [address] documented as of this encounter Procedures Procedure Name Priority Date/Time Associated Diagnosis Comments OBSX1 Routine 09/28/2024 5:12 PM EDT CBC WITH AUTO DIFFERENTIAL Routine 09/28/2024 4:02 PM EDT PROTHROMBIN TIME-INR Routine 09/28/2024 4:02 PM EDT BASIC METABOLIC PANEL Routine 09/28/2024 4:02 PM EDT documented in this encounter Results * OBSX1 (09/28/2024 5:12 PM EDT) OBS1 NEGATIVE NEGATIVE [facility] 09/28/2024 5:12 PM EDT 09/28/2024 5:20 PM EDT us Generic External Data Provider LAB BLOOD ORDERAB LES Final Result [facility] [address] [place] [phone] * (ABNORMAL) Basic Metabolic Panel (09/28/2024 4:02 PM EDT) Sodium 138 135 - 145 mmol/L [facility] Potassium 4.2 3.3 - 5.1 mmol/L [facility] Chloride 104 96 - 108 mmol/L [facility] Carbon Dioxide 25 22 - 29 mmol/L [facility] Anion Gap 13 12 - 20 [facility] Urea Nitrogen (BUN) 21(H) 9 - 16 mg/dL [facility] Creatinine, Serum 0.66 0.5 - 1.4 mg/dL [facility] Creatinine Clr Calc Pharmacy 62.2 [facility] Comment:Provided height and weight: 157.48 cm,63 kg.eGFR (calculated from the MDRD study equation) and eCrCl(calculated from the Cockcroft-Gault equation) are based ondifferent parameters and may not yield comparable results.If eCrCl result is absurd, please check patient'sheight/weight. Estimated Glomerular Filt Rate >60 [facility] Comment:Chronic Kidney Disea se: Estimated GFR < 60 mL/min/1.42g8Maizuv Kidney Disease: Estimated GFR < 15 mL/min/1.73m2 Glucose 131(H) 60 - 115 mg/dL [facility] Calcium 9.2 8.4 - 10.2 mg/dL [facility] 09/28/2024 4:02 PM EDT 09/28/2024 4:06 PM EDT us Generic External Data Provider LAB BLOOD ORDERAB LES Final Result [facility] [address] [place] [phone] * Prothrombin Time-INR (09/28/2024 4:02 PM EDT) Prothrombin Time 11.6 10.9 - 12.4 SEC [facility] INTERNATIONAL NORM RATIO 1.0 0.9 - 1.1 [facility] Comment:INTERNATIONAL NORMAL IZED RATIO (INR) REFERENCE [...] Provider LAB BLOOD ORDERAB LES Final Result [facility] [address] [place] [phone] * (ABNORMAL) CBC auto differential (09/28/2024 4:02 PM EDT) White Blood Count 8.2 4.8 - 10.8 X10*3/uL [facility] Red Blood Count 3.58(L) 4.20 - 5.50 X10*6/uL [facility] Hemoglobin 8.5(L) 12.0 - 16.0 g/dl [facility] Hematocrit 28.2(L) 37.0 - 47.0 % [facility] Mean Corpuscular Volume 78.8(L) 80.0 - 98.0 fL [facility] Mean Corpuscular Hemoglobin 23.7(L) 27.0 - 33.0 pg [facility] Mean Corpuscular HGB Conc 30.1(L) 31.0 - 35.0 g/dl [facility] Red Cell Distribution Width 18.2(H) 11.0 - 16.0 % [facility] Platelet Count 344 160 - 400 X10*3/uL [facility] Mean Platelet Volume 9.4 9.4 - 12.3 fL [facility] Neutrophils Percent Auto 66.5 45 - 73 % [facility] Imm Gran Pct Auto 0.4 0.0 - 0.4 % [facility] Lymphocytes Percent Auto 20.0 20 - 40 % [facility] Monocytes Percent Auto 10.3 2 - 11 % [facility] Eosinophils Percent Auto 2.3 0 - 4 % [facility] Basophils Percent Auto 0.5 0 - 2 % [facility] NRBC Pct Auto 0.0 0.0 - 0.2 /100WBC [facility] Neutrophils Absolute Auto 5.4 2.0 - 8.3 x10*3/uL [facility] Imm Gran Abs Auto 0.03 0.00 - 0.03 X10*3/uL [facility] Lymphocytes Absolute Auto 1.6 1.2 - 4.9 X10*3/uL [facility] Monocytes Absolute Auto 0.8 0.1 - 1.2 X10*3/uL [facility] Eosinophils Absolute Auto 0.2 0.0 - 0.4 X10*3/uL [facility] Basophils Absolute Auto 0.0 0.0 - 0.2 X10*3/uL [facility] NRBC Abs Auto 0.000 0.0 - 0.012 X10*3/uL [facility] 09/28/2024 4:02 PM EDT 09/28/2024 4:06 PM EDT us Generic External Data Provider LAB BLOOD ORDERAB LES Final Result Performing Organization Address City/State/[facility] Co de Phone Number [facility] [address] [place] [phone] documented in this encounter Visit Diagnoses Not on filedocumented in this encounter Additional Health Concerns Assessment Noted Time PHQ-9 Depression Total Score: 9 05/10/20 24 11:56 AM EST documented as of this encounter Care Teams Stitch Bonder Machine Operator Helper Relationship Specialty Start Date End Date Name, MD Eddie [address] [place] [address] PCP - General Family Medicine 09/16/15 [facility] documented as of this encounter
--- OUTSIDE RECORDS SUMMARY | 2024-10-02 12:05 | XMS_ITS | Encounter Summary ---
Author Organization [employer] Address [address] [place] [address] 7 [place] [address] Care Team Providers Care Web Application Dev Specialist Name Role Phone Name, Eddie GILMORE Primary Care Provider [phone] Reason for Visit * Reason Onset Date Comments Medication Question 09/05/2023 Encounter Details Date Type Department Care Team ([facility] st Contact Info) Description 09/05/2023 Telephone [facility] MEDICINE [address] [place], [place] [phone] Name, MD Eddie [address] [place] [address] Medication Question Social History Tobacco Use Types [...] Description 10/29/2024 2:30 PM EDT Office Visit [facility] MED[facility]INE [address] [place] [phone] Name, MD Eddie [address] [place] [address] 11/12/2024 9:45 AM EDT Office Visit [facility] MED[facility]INE [address] [place] [address] documented as of this encounter Visit Diagnoses Not on filedocumented in this encounter Additional Health Concerns Assessment Noted Time PHQ-9 Depression Total Score: 10 11/28/ 023 1:16 PM EDT documented as of this encounter Care Teams Web Application Dev Specialist Relationship Specialty Start Date End Date Name, MD Eddie [address] [place] [address] PCP - General Family Medicine 09/16/15 [place] [facility] 07/01/24 documented as of this encounter
--- OUTSIDE RECORDS SUMMARY | 2024-10-02 12:05 | XMS_ITS | Encounter Summary ---
Author Organization [employer] Address [address] [place] [address] [place] [address] Care Team Providers Care Electrophysiology Nurse Practitioner Name Role Phone Name, Eddie GILMORE Primary Care Provider [phone] Reason for Visit * Reason Comments Med Refill Encounter Details Date Type Department Care Team (Late st Contact Info) Description 01/29/2023 Refill [facility] MEDICINE [address] [place] [address] [phone] Farhana Singh FNP [address] [place] [address] [place] [address] Social History Tobacco Use Types Packs/Day Years [...] EDT Office Visit [facility]INE [address] [place] [address] [phone] Name, MD Eddie [address] [place] [address] [phone] 11/12/2024 9:45 AM EDT Office Visit [facility] [address] [facility] [place] [address] documented as of this encounter Visit Diagnoses Not on filedocumented in this encounter Additional Health Concerns Assessment Noted Time PHQ-9 Depression Total Score: 10 11/28/ 023 1:16 PM EDT documented as of this encounter Care Teams Electrophysiology Nurse Practitioner Relationship Specialty Start Date End Date Name, MD Eddie [address] [facility] [place] [address] PCP - General Family Medicine 09/16/15 [place] [facility] 07/01/24 documented as of this encounter
--- OUTSIDE RECORDS SUMMARY | 2024-10-02 12:05 | XMS_ITS | Data Portability ---
Author Organization [place] [facility], Allergy Address [address] [place] [address] Care Team Providers Care Residential Mental Health Worker Name Role Phone NAME, DELIA Primary Care Provider [phone] Assessment Encounter Date Assessment Date Assessment LastModified [...] Organization Details Last Modified Time Details Appointments Urgent Visit New 30 2024 03:45P Alexx ROY PA-C Not available Not available Not available Lab None recorded . Referral None recorded . Procedures None recorded . Surgeries None recorded . Imaging None recorded . Medication Orders None recorded . Patient TargetsNo targets recorded. Patient InstructionsNo instructions recorded. Reason for Referral None Reported. Problems Name Problem SNOMED Code Status Onset Date Resolution Date Notes Provider Name and Address Organization Details Recorded Time Essential hypertens ion 30918276 Active 2014 Essential (primary) hypertensi on; Note: Date Diagnosed: 05/07/2015 9:43 AM (I10) Not Available [employer] 4 02:37:47 Bleeding from nose 191458985 Active 2014 Epistaxis; Note: Date Diagnosed: 05/07/2015 9:43 AM (R04.0) Not Available [facility] 4 02:37:50 Anterior epistaxis 541621891 Active 2024 YANIV GARCIA MD [address] [facility],[place] [address], [place], [address] , [facility] 5 12:32:29 Problem Notes None recorded. Procedures Surgical History Date Name Laterality Status Provider Name and Address Organization Details Recorded Time 5 Epistaxis Simple Nasal Cautery Right completed YANIV GARCIA MD [address] [facility],[place] [address], [place], [address], [facility] 08/11/2024 12:31:38 Imaging Results None recorded. Procedure Notes None recorded. Medical Equipment None Reported. Allergies Allergen ID Allergen Name Allergen Category Reaction Reaction Severity Criticality Documentation Date Start Date Code Code System Note Provider Name and Address Organization Details Recorded Time 68285 atorvasta tin medicatio n other Not available Not available 10/31/2023 62353 RxNorm React ion: unkno wn, unspe cifie d;; Not Available [facility] 4 00:59:20 Medications Name Sig Start Date [...] 24 hr 08/09 completed Medicati on ID: [id number] D uration Value: 90 Brand Name: oxybutyn in chloride Send Method: E-Prescr ibed Sub s Allowed: subs OK Speci al Instruct ion: TAKE 1 TABLET BY MOUTH EVERY DAY Medi cationGe nericNam e: oxybutyn in chloride Not Available Not Available Not Available Patanol 0.1 % eye drops 08/09 completed Medicati on ID: 309441 B rand Name: Patanol Send Method: E-Prescr [...] layed release 08/09 completed Medicati on ID: 274860 B rand Name: aspirin Send Method: E-Prescr ibed Sub s Allowed: subs OK Medic ationGen ericName : aspirin Not Available Not Available Not Available tramadol 50 mg tablet 2014 active Medicati on ID: 400761 D uration Value: 28 Brand Name: tramadol Send Method: E-Prescr ibed Sub s Allowed: subs OK Speci al Instruct ion: TAKE 1 TABLET BY MOUTH EVERY 8 HOURS NEEDED FOR PAIN Med icationG enericNa me: tramadol Not Available Not Available Not Available nortripty line 25 mg capsule 08/09 completed Medicati on ID: 709195 D uration Value: 90 Brand Name: nortript yline Se nd Method: E-Prescr ibed Sub s Allowed: subs OK Speci al Instruct ion: TAKE 3 CAPSULES BY MOUTH AT BEDTIME Medicati onGeneri cName: nortript yline Not Available Not Available Not Available levothyro xine 100 mcg tablet 08/09 completed Medicati on ID: 388630 D uration Value: 90 Brand Name: levothyr [...] elayed release 2014 active Medicati on ID: 729001 D uration Value: 90 Brand Name: omeprazo le Send Method: E-Prescr ibed Sub s Allowed: subs ALESSIO Orantes al Instruct ion: TAKE 2 CAPSULES BY MOUTH DAILY. M edicaromi Goodwin Name: omeprazo le Not Available Not [...] ne propionat e 50 mcg/actua tion nasal spray,[facility] 2013 active Medicati on ID: 338754 D uration Value: 30 Brand Name: fluticas one Send Method: E-Prescr ibed Sub s Allowed: subs ALESSIO Orantes al Instruct ion: SPRAY 2 SPRAYS INTO EACH NOSTRIL DAILY Me dication GenericN delmi: fluticas one Not Available Not Available Not Available loratadin e 10 mg tablet 08/09 completed Medicati on ID: 225871 D uration Value: 30 Brand Name: loratadi [...] 500 mg tablet active Medicati on ID: 314842 B rand Name: Tylenol Extra Strength Send [...] Updated DateTime 09/06/2024 157.48 cm 25.4 kg/m2 25217.34 g KELLY NAFISA [place] [facility] 09/06/2024 13:28:14 Social History None recorded. Functional Status None recorded. Mental Status None recorded. Family History Nothing Reported. Medical History Condition Response Heart Attack ([place]) Y Anemia Y Stroke Y Hypertension Y Asthma Y Gynecological HistoryNo gynecological history recorded. Obstetrics History GPAL:G 0 P 0 0 0 0 Past Encounters Encounter ID Performer Location Encounter Start Date Encounter Closed Date Diagnosis/Indication Diagnosis SNOMED-CT Code Diagnosis ICD10 Code Diagnosis Note [id number] YANIV GARCIA MD [facility] [address] [address] 08/09/2024 09:39:15 08/09/2024 11:07:17 Anterior epistaxis 866589100 R04.0 78-year-ol d female with a history [...] for cautery on the left. Essential hypertension 75873909 I10 Long-term current use of antiplatelet drug 6933975243 81454 Z79.02 [id number] YANIV GARCIA MD [facility] [address] [place] [address] 09/06/2024 13:16:33 09/06/2024 13:54:17 Anterior epistaxis 792157424 R04.0 Bleeding from nose 89375 6005 R04.0 Essential hypertension 39691242 I10 Health Concerns Section Related Observation LastModified by Organization Detai ls LastModified Time None Recorded Concern Status LastModified by Organization Details LastModified Time None Recorded Advance Directives Directive None Recorded Payers Encounter Date Sequence Insurance Name Policy Number Policy Zapata Covered Member ID Zapata Member ID Guarantor Name 08/09/2024 1 [facility] (MEDICAID HMO) Celeste Abad [id number] Celeste Abad 09/06/2024 1 [facility] (MEDICAID HMO) Celeste Abad [id number] Celeste Abad Notes Date Note Type Note [...] able to stop them YANIV GARCIA MD [address] [facility],[address], [address], [facility] 08/11/2024 12:36:32 09/06/2024 text/html 78yo female with hypertension on clopidogrel presents for reevaluation of right recurrent nosebleeds. Right septum cauterized 08/09/[address] Garcia. Patient reports persistent recurrent right-sided nasal bleeding every couple days. Most recent episode 3 days ago, managed quickly with nasal cease. She is in the process of scheduling iron transfusions through [facility]. She was recently diagnosed with emphysema. She continues to touch the nose frequently. YANIV GARCIA MD [address] [facility], [place], [address], [place] [facility] 09/06/2024 17:25:55 OBGyn Episode No OBEpisode recorded.
--- OUTSIDE RECORDS SUMMARY | 2024-10-02 12:05 | XMS_ITS | Encounter Summary ---
Author Organization [employer] Address [address] [place] [address] 7 [place] [address] Care Team Providers Care Typing Pool Supervisor Name Role Phone Name, Eddie GILMORE Primary Care Provider [phone] Reason for Visit * Reason Onset Date Comments Medication Question 09/01/2023 Encounter Details Date Type Department Care Team ([facility] st Contact Info) Description 09/01/2023 Telephone [facility] MEDICINE [address] [place], [place] [phone] Name, MD Eddie [address] [place] [address] Medication Question Social History Tobacco Use Types [...] an add on. Please contact pharmacy at [phone]. documented in this encounter Plan of Treatment Upcoming Encounters Date Type Department Care Team (Late st Contact Info) Description 10/29/2024 2:30 PM EDT Office Visit [facility] [address] Name, [place] [address] 11/12/2024 9:45 AM EDT Office Visit [facility] [place] [address] documented as of this encounter Visit Diagnoses Not on filedocumented in this encounter Additional Health Concerns Assessment Noted Time PHQ-9 Depression Total Score: 10 023 1:16 PM EDT documented as of this encounter Care Teams Typing Pool Supervisor Relationship Specialty Start Date End Date Name, [place] [address] PCP - General Family Medicine 09/16/15 [place] [facility] 07/01/24 documented as of this encounter
--- OUTSIDE RECORDS SUMMARY | 2024-10-02 12:05 | XMS_ITS | Encounter Summary ---
Author Organization [employer] Address [address] [place] [address] 7 [place] [address] Care Team Providers Care Mortgage Funder Name Role Phone Name, Eddie GILMORE Primary Care Provider [phone] Reason for Visit * Reason Comments Med Refill Encounter Details Date Type Department Care Team (Late st Contact Info) Description 05/08/2023 Refill [facility] MED[facility] [address] [place], [place] [phone] Name, MD Eddie [address] [place], [place] [phone] Chronic pain syndrome Social History Tobacco Use [...] Description 10/29/2024 2:30 PM EDT Office Visit [address] [address] NameEddie MD [address] [place] [address] 11/12/2024 9:45 AM EDT Office Visit [address] [address] documented as of this encounter Visit Diagnoses Diagnosis Chronic pain syndrome documented in this encounter Additional Health Concerns Assessment Noted Time PHQ-9 Depression Total Score: 10 023 1:16 PM EDT documented as of this encounter Care Teams Mortgage Funder Relationship Specialty Start Date End Date NameEddie MD [address] [place] [address] PCP - General Family Medicine 09/16/15 [place] [facility] 07/01/24 documented as of this encounter
--- OUTSIDE RECORDS SUMMARY | 2024-10-02 12:05 | XMS_ITS | Encounter Summary ---
Author Organization [employer] Address [address] [facility] 7t [place] [address] Care Team Providers Care Wood Patternmaker Apprentice Name Role Phone Name, Eddie GILMORE Primary Care Provider [phone] Reason for Visit * Reason Onset Date Comments ED follow up 09/27/2024 Encounter Details Date Type Department Care Team ([facility] st Contact Info) Description 09/27/2024 Telephone [facility] [address] [place], [place] [phone] Matilda Millan RN ED follow up Social [...] placed to pt for status check re: [facility] ED 09/26/24 Dx: Acute anterior epistaxis. Pt reports that she did return to ED to have packing removed. Pt requesting f/u appt due to lab work done in ED. Agrees to ED f/u with team provider this afternoon. * Telephone Encounter - Matilda Millan RN - 09/27/2024 11:43 AM EDT TC to pt. @[phone] to follow up set up person center message as per below. VM left for pt to return call to [facility]. Per ED notes from 09/26: pt is to return to ED tomorrow Sat. 09/28 or Sun 09/29 for nasal packing removal. Will re attempt reaching pt for a f/u PCP OV for next week. Patient calling to report ED visit on : Date: 09/26/24 Hospital: [facility] Seen for: Nose bleeds Directions per [facility] ED 09/26/24 You were evaluated in the [...] 10/29/2024 2:30 PM EDT Office Visit [address] [address] Name, MD Eddie [address] [place] [address] 11/12/2024 9:45 AM EDT Office Visit [address] [address] documented as of this encounter Visit Diagnoses Not on filedocumented in this encounter Additional Health Concerns Assessment Noted Time PHQ-9 Depression Total Score: 9 05/10/20 24 11:56 AM EST documented as of this encounter Care Teams Wood Patternmaker Apprentice Relationship Specialty Start Date End Date NameEddie MD [address] [place] [address] PCP - General Family Medicine 09/16/15 [place] [facility] 07/01/24 documented as of this encounter
--- OUTSIDE RECORDS SUMMARY | 2024-10-02 12:05 | XMS_ITS | Encounter Summary ---
Author Organization [employer] Address [address] [place] [address] 7 [place] [address] Care Team Providers Care Contact Center Manager Name Role Phone Name, Eddie GILMORE Primary Care Provider [phone] Reason for Visit * Reason Comments Med Refill Encounter Details Date Type Department Care Team (Late Contact Info) Description 01/04/2023 Refill [facility] MEDICINE [address] [place] [address] [phone] Name, MD Eddie [address] [place] [address] Gastroesophageal reflux disease, unspecified whether esophagitis present [...] 10/29/2024 2:30 PM EDT Office Visit [facility] MEDICINE [address] [facility] [place] [address] Name, [place] [address] 11/12/2024 9:45 AM EDT Office Visit [facility] [address] documented as of this encounter Visit Diagnoses Diagnosis Gastroesophageal reflux disease, unspecified whether esophagitis present documented in this encounter Additional Health Concerns Assessment Noted Time PHQ-9 Depression Total Score: 10 023 1:16 PM EDT documented as of this encounter Care Teams Contact Center Manager Relationship Specialty Start Date End Date Name, [place] [address] PCP - General Family Medicine 09/16/15 [place] [facility] 07/01/24 documented as of this encounter
--- OUTSIDE RECORDS SUMMARY | 2024-10-02 12:05 | XMS_ITS | Encounter Summary ---
Author Organization [employer] Address [address] [place] [address] 7 [place] [address] Care Team Providers Care Risk Developer Name Role Phone Name, Eddie GILMORE Primary Care Provider [phone] Reason for Visit * Reason Onset Date Comments Referral 02/02/2023 Back dated refer ral Encounter Details Date Type Department Care Team ([facility] st Contact Info) Description 02/02/2023 Telephone [facility] MEDICINE 230 [place], [place] [phone] Name, MD Eddie 230 [place] [address] Referral (Back dated referral ) Social History [...] 2:20 PM EDT Unable to process referral. Gaurva only back dates 30 days from DOS * Telephone Encounter - Louann Romo - 03/07/2023 1:40 PM EDT Tc from Kasie at [facility] requesting status on message below regarding referral. Fax number [phone]. Any questions please call [phone] * Telephone Encounter - Amber Roger RN - 02/03/2023 10:34 AM EDT Please review message below regarding backdated referral for these dates * Telephone Encounter - Laure Mcgill - 02/02/2023 2:07 PM EDT Tc from Kasie at [facility] calling in regards to referral needing to be back dated. Patient was seen at the office on 01/03/23 and 01/11/23. Fax number [phone]. Any questions please call [phone]. documented in this encounter Plan of Treatment Upcoming Encounters Date Type Department Care Team (Late st Contact Info) Description 10/29/2024 2:30 PM EDT Office Visit [address] [address] Name, MD Eddie [address] [place] [address] 11/12/2024 9:45 AM EDT Office Visit [address] [address] documented as of this encounter Visit Diagnoses Not on filedocumented in this encounter Additional Health Concerns Assessment Noted Time PHQ-9 Depression Total Score: 10 023 1:16 PM EDT documented as of this encounter Care Teams Risk Developer Relationship Specialty Start Date End Date Name, MD Eddie [address] [place] [address] PCP - General Family Medicine 09/16/15 [place] SEN 07/01/24 documented as of this encounter
== END 2024-10-02 11:33 | disposition home or self-care (01) ==
PROVIDERS: PCP Internal Medicine Geriatric Medicine; Visit Provider Internal Medicine Cardiovascular Disease
DX: Z01.810 Encounter for preprocedural cardiovascular examination (principal); I25.118 Atherosclerotic heart disease of native coronary artery with other forms of angina pectoris; Z95.5 Presence of coronary angioplasty implant and graft; R04.0 Epistaxis
CPT/HCPCS: 93010; 99214

== ENCOUNTER → 2024-10-02 10:21 | Outpatient (BNVA) | payer MEDICARE, SELFPAY | PROVIDERS: PCP Internal Medicine Geriatric Medicine; Visit Provider Internal Medicine Cardiovascular Disease | DX: Z01.810 Encounter for preprocedural cardiovascular examination (principal); J44.9 Chronic obstructive pulmonary disease, unspecified; I20.89 Other forms of angina pectoris; R04.0 Epistaxis; R94.31 Abnormal electrocardiogram [ECG] [EKG] | CPT/HCPCS: 93005; 99212 ==

== ENCOUNTER 2024-10-04 10:49 | Outpatient (REF) | payer MEDICARE, SELFPAY ==
--- OUTSIDE RECORDS SUMMARY | 2024-10-04 11:52 | XMS_ITS | Encounter Summary ---
Author Organization [employer] Address [address] [place] [address] 7 [place] [address] Care Team Providers Care Crutching Contractor Name Role Phone Name, Eddie GILMORE Primary Care Provider [phone] Reason for Visit * Reason Comments Med Refill Encounter Details Date Type Department Care Team (Late st Contact Info) Description 05/08/2023 Refill [facility] MEDICINE 230 [place], [place] [phone] Name, MD Eddie 230 [place], [place] [phone] Chronic pain syndrome Social History Tobacco Use [...] 10/29/2024 2:30 PM EDT Office Visit [address] [address] NameEddie MD [address] [place] [address] 11/12/2024 9:45 AM EDT Office Visit [address] [address] documented as of this encounter Visit Diagnoses Diagnosis Chronic pain syndrome documented in this encounter Additional Health Concerns Assessment Noted Time PHQ-9 Depression Total Score: 10 023 1:16 PM EDT documented as of this encounter Care Teams Crutching Contractor Relationship Specialty Start Date End Date NameEddie MD [address] [place] [address] PCP - General Family Medicine 09/16/15 [place] VNA 07/01/24 documented as of this encounter
--- OUTSIDE RECORDS SUMMARY | 2024-10-04 11:52 | XMS_ITS | Encounter Summary ---
Author Organization [employer] Address [address] [place] [address] 7 [place] [address] Care Team Providers Care Sheep Killer Name Role Phone Name, Eddie GILMORE Primary Care Provider [phone] Reason for Visit * Reason Onset Date Comments Medication Question 09/01/2023 Encounter Details Date Type Department Care Team ([facility] st Contact Info) Description 09/01/2023 Telephone [facility] 230 [place], [place] [phone] Name, MD Eddie 230 [place] [address] Medication Question Social History Tobacco Use Types [...] an add on. Please contact pharmacy at [phone]. documented in this encounter Plan of Treatment Upcoming Encounters Date Type Department Care Team (Late st Contact Info) Description 10/29/2024 2:30 PM EDT Office Visit [facility] [place] [address] Name, [place] [address] 11/12/2024 9:45 AM EDT Office Visit [facility] [place] [address] documented as of this encounter Visit Diagnoses Not on filedocumented in this encounter Additional Health Concerns Assessment Noted Time PHQ-9 Depression Total Score: 10 023 1:16 PM EDT documented as of this encounter Care Teams Sheep Killer Relationship Specialty Start Date End Date Name, [place] [address] PCP - General Family Medicine 09/16/15 Jer[place] A 07/01/24 documented as of this encounter
--- OUTSIDE RECORDS SUMMARY | 2024-10-04 11:52 | XMS_ITS | Encounter Summary ---
Author Organization [facility] [employer] Address [address] [place] [address] [place] [address] Care Team Providers Care Office Machine Embossograph Operator Name Role Phone NameEddie MD Primary Care Provider [phone] Reason for Visit * Reason Comments Med Refill Encounter Details Date Type Department Care Team (Late Contact Info) Description 02/26/2023 Refill [facility] MEDICINE [address] [place] [address] [phone] NameEddie MD [address] [place] [address] [phone] Chronic pain syndrome Social History Tobacco Use [...] Office Visit [facility] MEDICINE [address] [place] [address] [phone] Eddie Marshall MD [address] [place] [address] [phone] 11/12/2024 9:45 AM EDT Office Visit [facility] MEDICINE 230 [place] [address] documented as of this encounter Visit Diagnoses Diagnosis Chronic pain syndrome documented in this encounter Additional Health Concerns Assessment Noted Time PHQ-9 Depression Total Score: 10 023 1:16 PM EDT documented as of this encounter Care Teams Office Machine Embossograph Operator Relationship Specialty Start Date End Date Name, MD Eddie 230 [place] [address] PCP - General Family Medicine 09/16/15 [place] A 07/01/24 documented as of this encounter
--- OUTSIDE RECORDS SUMMARY | 2024-10-04 11:52 | XMS_ITS | Encounter Summary ---
Author Organization [email or web address] Address [address] [place] [address] 7 [place] [address] Care Team Providers Care Scullion Chief Name Role Phone Name, Eddie GILMORE Primary Care Provider [phone] Reason for Visit * Reason Onset Date Comments Medication Question 09/05/2023 Encounter Details Date Type Department Care Team ([facility] st Contact Info) Description 09/05/2023 Telephone [facility] MEDICINE 230 [place], [place] [phone] Name, MD Eddie 230 [place] [address] Medication Question Social History Tobacco Use Types [...] 2:30 PM EDT Office Visit [facility] MED[facility]INE [address] [place] [address] Name, MD Eddie [address] [place] [address] 11/12/2024 9:45 AM EDT Office Visit [facility] MEDICINE [address] [place] [address] documented as of this encounter Visit Diagnoses Not on filedocumented in this encounter Additional Health Concerns Assessment Noted Time PHQ-9 Depression Total Score: 10 11/28/ 023 1:16 PM EDT documented as of this encounter Care Teams Scullion Chief Relationship Specialty Start Date End Date Name, MD Eddie 230 [place] [address] PCP - General Family Medicine 09/16/15 [place] SEN 07/01/24 documented as of this encounter
--- OUTSIDE RECORDS SUMMARY | 2024-10-04 11:52 | XMS_ITS | Encounter Summary ---
Author Organization [employer] Address [address] [place] [address] 7 [place] [address] Care Team Providers Care Screen Cutter And Trimmer Name Role Phone Name, Eddie GILMORE Primary Care Provider [phone] Reason for Visit * Reason Onset Date Comments Med Refill 10/03/2024 Encounter Details Date Type Department Care Team ([facility] st Contact Info) Description 10/03/2024 Telephone [facility] MEDICINE 230 [place], [place] [phone] Name, MD Eddie [address] [place] [address] Med Refill Social History Tobacco Use Types Packs/Day Years [...] * Telephone Encounter - Clari Moss - 10/03/2024 11:16 AM EDT TC from pt requesting medication refill. Medications needing refill : oxyCODONE-acetaminophen (Percocet) 5-325 MG tablet To be sent to: [facility] documented in this encounter Plan of Treatment Upcoming Encounters Date Type Department Care Team (Late st Contact Info) Description 10/29/2024 2:30 PM EDT Office Visit [address] [address] Name, MD Eddie [address] [place] [address] 11/12/2024 9:45 AM EDT Office Visit [address] [address] documented as of this encounter Visit Diagnoses Not on filedocumented in this encounter Additional Health Concerns Assessment Noted Time PHQ-9 Depression Total Score: 9 05/10/20 24 11:56 AM EST documented as of this encounter Care Teams Screen Cutter And Trimmer Relationship Specialty Start Date End Date NameEddie MD [address] [place] [address] PCP - General Family Medicine 09/16/15 [place] SEN 07/01/24 documented as of this encounter
--- OUTSIDE RECORDS SUMMARY | 2024-10-04 11:52 | XMS_ITS | Encounter Summary ---
Author Organization [employer] Address [address] [place] [address] 7 [place] [address] Care Team Providers Care Vp Global Marketing Solutions Name Role Phone Name, Eddie GILMORE Primary Care Provider [phone] Reason for Visit * Reason Onset Date Comments ER Follow-up 09/27/2024 Encounter Details Date Type Department Care Team ([facility] st Contact Info) Description 09/27/2024 Telephone [facility] MEDICINE 230 [place], [place] [phone] Name, MD Eddie 230 [place] [address] ER Follow-up Social History Tobacco Use Types [...] ED visit on : Date: 09/26/[address]: [facility] Seen for: Nose bleeds Symptomatic yes . [...] 2:30 PM EDT Office Visit [facility] [address] [place] [address] Eddie Marshall MD 230 [place] [address] 11/12/2024 9:45 AM EDT Office Visit [facility] [address] [place] [address] documented as of this encounter Visit Diagnoses Not on filedocumented in this encounter Additional Health Concerns Assessment Noted Time PHQ-9 Depression Total Score: 9 05/10/20 24 11:56 AM EST documented as of this encounter Care Teams Vp Global Marketing Solutions Relationship Specialty Start Date End Date Eddie Marshall MD 230 [facility] [place] [address] PCP - General Family Medicine 09/16/15 [place] SEN 07/01/24 documented as of this encounter
--- OUTSIDE RECORDS SUMMARY | 2024-10-04 11:52 | XMS_ITS | Encounter Summary ---
Author Organization [employer] Address [address] [facility] 7t [place] [address] Care Team Providers Care Annual Campaign Manager Name Role Phone Name, Eddie GILMORE Primary Care Provider [phone] Encounter Details Date Type Department Care Team [...] 2:30 PM EDT Office Visit [facility] MEDICINE [address] [place] [address] Name, MD Eddie [address] [place] [address] 11/12/2024 9:45 AM EDT Office Visit [address] [address] documented as of this encounter Visit Diagnoses Not on filedocumented in this encounter Additional Health Concerns Assessment Noted Time PHQ-9 Depression Total Score: 9 05/10/20 24 11:56 AM EST documented as of this encounter Care Teams Annual Campaign Manager Relationship Specialty Start Date End Date Name, MD Eddie [address] [place] [address] PCP - General Family Medicine 09/16/15 [place] SEN 07/01/24 documented as of this encounter
--- OUTSIDE RECORDS SUMMARY | 2024-10-04 11:52 | XMS_ITS | Encounter Summary ---
Author Organization [employer] Address [address] [place] [address] 7 [place] [address] Care Team Providers Care Repair Service Dispatcher Name Role Phone Name, Eddie GILMORE Primary Care Provider [phone] Reason for Visit * Reason Comments Med Refill Encounter Details Date Type Department Care Team (Late Contact Info) Description 12/01/2022 Refill [facility] MEDICINE 230 [place], [place] [phone] Name, MD Eddie 230 [place] [address] Controlled type 2 diabetes mellitus with complication, without long-term current use of insulin ([facility]) Social History Tobacco Use Types [...] Visit [facility] [place] [address] Name, MD Eddie [facility] [place] [address] 11/12/2024 9:45 AM EDT Office Visit [facility] [place] [address] documented as of this encounter Visit Diagnoses Diagnosis Controlled type 2 diabetes mellitus with complication, without long-term current use of insulin ([facility]) documented in this encounter Additional Health Concerns Assessment Noted Time PHQ-9 Depression Total Score: 10 023 1:16 PM EDT documented as of this encounter Care Teams Repair Service Dispatcher Relationship Specialty Start Date End Date Name, [place] [address] PCP - General Family Medicine 09/16/15 Jer[place] BURGOSA 07/01/24 documented as of this encounter
--- OUTSIDE RECORDS SUMMARY | 2024-10-04 11:52 | XMS_ITS | Encounter Summary ---
Author Organization [employer] Address [address] [place] [address] 7 [place] [address] Care Team Providers Care Shower Attendant Name Role Phone Name, Eddie GILMORE Primary Care Provider [phone] Reason for Visit * Reason Onset Date Comments Med Refill 10/03/2024 Encounter Details Date Type Department Care Team ([facility] st Contact Info) Description 10/03/2024 Refill [facility] MEDICINE 230 [place], [place] [phone] Name, MD Eddie 230 [place] [address] Social History Tobacco Use Types Packs/Day Years [...] encounter Miscellaneous Notes * Telephone Encounter - Ofelia Krishna LPN - 10/03/2024 11:56 AM EDT Last seen 4. * Telephone Encounter - Clari Moss - 10/03/2024 11:51 AM EDT TC from pt requesting medication refill. Medications needing refill : albuterol 108 (90 Base) MCG/ACT inhaler To be sent to: [facility] [place], [place] - [address] [place] [address] documented in this encounter Plan of Treatment Upcoming Encounters Date Type Department Care Team (Late st Contact Info) Description 10/29/2024 2:30 PM EDT Office Visit [facility] MEDICINE [address] [place] [address] Name, MD [place] [address] 11/12/2024 9:45 AM EDT Office Visit [facility] MEDICINE [address] [place] [address] documented as of this encounter Visit Diagnoses Not on filedocumented in this encounter Additional Health Concerns Assessment Noted Time PHQ-9 Depression Total Score: 9 05/10/20 24 11:56 AM EST documented as of this encounter Care Teams Shower Attendant Relationship Specialty Start Date End Date Name, MD Eddie 230 [place] [address] PCP - General Family Medicine 09/16/15 Jer[place] [facility] 07/01/24 documented as of this encounter
--- OUTSIDE RECORDS SUMMARY | 2024-10-04 11:52 | XMS_ITS | Encounter Summary ---
Author Organization [employer] Address [address] [place] [address] 7 [place] [address] Care Team Providers Care English Language Learner Tutor Name Role Phone Name, Eddie GILMORE Primary Care Provider [phone] Reason for Visit * Reason Comments Med Refill Encounter Details Date Type Department Care Team (Late Contact Info) Description 01/04/2023 Refill [facility] MEDICINE [address] [place] [address] [phone] Name, MD Eddie 230 [place] [address] Gastroesophageal reflux disease, unspecified whether esophagitis present [...] [facility] MEDICINE 230 [facility] [place] [address] Name, [place] [address] 11/12/2024 9:45 AM EDT Office Visit [facility] [place] [address] documented as of this encounter Visit Diagnoses Diagnosis Gastroesophageal reflux disease, unspecified whether esophagitis present documented in this encounter Additional Health Concerns Assessment Noted Time PHQ-9 Depression Total Score: 10 023 1:16 PM EDT documented as of this encounter Care Teams English Language Learner Tutor Relationship Specialty Start Date End Date Name, [place] [address] PCP - General Family Medicine 09/16/15 [place] [facility]NA 07/01/24 documented as of this encounter
--- OUTSIDE RECORDS SUMMARY | 2024-10-04 11:52 | XMS_ITS | Encounter Summary ---
Author Organization [employer] Address [address] [facility] 7t [place] [address] Care Team Providers Care Forestry Workers Name Role Phone Name, Eddie GILMORE Primary Care Provider [phone] Encounter Details Date Type Department Care Team (Late st Contact Info) Description 09/30/2024 2:30 PM EDT Office Visit [facility] MEDICINE 230 [place], [place] [phone] Hannah Paula NP 230 [place], [place] [phone] Low hemoglobin (Primary Dx) Social History Tobacco [...] Visit [facility] MEDICINE [address] [place] [address] Name, MD Eddie [address] [place] [address] 11/12/2024 9:45 AM EDT Office Visit [facility] MEDICINE [address] [place] [address] Scheduled Orders Name Type Priority Associated Diagnoses Orde r Schedule CBC auto differential Lab Routine Low hemoglobin Expected: 09/30/2024 (Approximate), Expires: 09/30/2025 documented as of this encounter Visit Diagnoses Diagnosis Low hemoglobin- Primary documented in this encounter Additional Health Concerns Assessment Noted Time PHQ-9 Depression Total Score: 9 05/10/20 24 11:56 AM EST documented as of this encounter Care Teams Forestry Workers Relationship Specialty Start Date End Date Name, MD Eddie 230 [place] [address] PCP - General Family Medicine 09/16/15 [place] Sim 07/01/24 documented as of this encounter
--- OUTSIDE RECORDS SUMMARY | 2024-10-04 11:52 | XMS_ITS | Encounter Summary ---
Author Organization [employer] Address [address] [facility] 7t [place] [address] Care Team Providers Care Discount Clerk Name Role Phone Name, Eddie GILMORE Primary Care Provider Encounter Details Date Type Department Care Team ([facility] st Contact Info) Description 10/01/2024 Refill [facility] [address] [place], [place] [phone] Name, MD Eddie 230 [place] [address] Chronic pain syndrome Social History Tobacco Use [...] as of this encounter Miscellaneous Notes * Addendum Note - Wil Santiago RN - 10/04/2024 8:33 AM EDTAddended by: WIL SANTIAGO on: 10/04/2024 08:33 AM Modules accepted: Orders * Telephone Encounter - Wil Santiago RN - 10/04/2024 8:29 AM EDT Masspat checked by blurb writer on 10/04/24. Pt picked up a 28 day supply of oxyCODONE- acetaminophen (Percocet) 5-325 MG tablet on 09/10/24. Pt not due for refill until 10/08/24. Medication pended to PCP witha starting date of 10/08/24 for review. Message forwarded to PCP to review and advise. * Telephone Encounter - Wil Santiago RN - 10/01/2024 1:45 PM EDT [employer] checked by blurb writer on 10/01/24. Pt picked up a 28 day supply of oxyCODONE- acetaminophen (Percocet) 5-325 MG tablet on 09/10/24. Pt not due for refill until 10/08/24. Message forwarded to blue team nurses for 10/04/24 to review masspat and pend medication to PCP as office is closed 10/07/24. * Telephone Encounter - Marisol Lobo LPN - 10/01/2024 1:13 PM EDT Received fax from [facility] requesting refill on Oxycodone-Acetaminophen 5- 325 mg. documented in this encounter Plan of Treatment Upcoming Encounters Date Type Department Care Team (Late st Contact Info) Description 10/29/2024 2:30 PM EDT Office Visit [address] [address] Name, MD Eddie [address] [place] [address] 11/12/2024 9:45 AM EDT Office Visit [address] [address] documented as of this encounter Visit Diagnoses Diagnosis Chronic pain syndrome documented in this encounter Additional Health Concerns Assessment Noted Time PHQ-9 Depression Total Score: 9 05/10/20 24 11:56 AM EST documented as of this encounter Care Teams Discount Clerk Relationship Specialty Start Date End Date Name, MD Eddie [address] [place] [address] PCP - General Family Medicine 09/16/15 [place] [facility] 07/01/24 documented as of this encounter
--- OUTSIDE RECORDS SUMMARY | 2024-10-04 11:52 | XMS_ITS | Encounter Summary ---
Author Organization [employer] Address [address] [place] [address] 7 [place] [address] Care Team Providers Care Roof Bolter Helper Name Role Phone Name, Eddie GILMORE Primary Care Provider [phone] Reason for Visit * Reason Comments Med Refill Encounter Details Date Type Department Care Team (Late st Contact Info) Description 06/18/2023 Refill [facility] MEDICINE 230 [place], [place] [phone] Name, MD Eddie 230 [place], [place] [phone] Chronic pain syndrome Social History Tobacco Use [...] Description 10/29/2024 2:30 PM EDT Office Visit [address] [address] NameEddie MD [address] [place] [address] 11/12/2024 9:45 AM EDT Office Visit [address] [address] documented as of this encounter Visit Diagnoses Diagnosis Chronic pain syndrome documented in this encounter Additional Health Concerns Assessment Noted Time PHQ-9 Depression Total Score: 10 023 1:16 PM EDT documented as of this encounter Care Teams Roof Bolter Helper Relationship Specialty Start Date End Date NameEddie MD [address] [place] [address] PCP - General Family Medicine 09/16/15 [place] [facility] 07/01/24 documented as of this encounter
--- OUTSIDE RECORDS SUMMARY | 2024-10-04 11:52 | XMS_ITS | Encounter Summary ---
Author Organization [employer] Address [address] [place] [address] [place] [address] Care Team Providers Care Child And Adolescent Psychologist Name Role Phone Name, Eddie GILMORE Primary Care Provider [phone] Reason for Visit * Reason Onset Date Comments Hospital Follow-up 11/10/2022 Encounter Details Date Type Department Care Team (Late st Contact Info) Description 11/10/2022 Refill [facility] [address] [place], [place] [phone] Name, MD Eddie [address] [place] [address] Social History Tobacco Use Types Packs/Day Years [...] Jackman Sent: 11/21/2022 5:23 PM EDT To: [facility] Team Nurses Hi team! Sent this pt to the ED over the weekend for Hgb 7. Got admitted and looks like recently discharged. Can you please outreach her for status check and sched HDF w/ Name? Thank you!! * Telephone Encounter - Suzette Singh RN - 11/22/2022 11:10 AM EDT T/C to [phone] to schedule HDF apt. No answer. LVM to call back on [phone]. ----- Message from Amber Roger RN sent at 11/22/2022 9:06 AM EDT ----- ----- Message ----- From: DENIS Jackman Sent: 11/21/2022 5:23 PM EDT To: [facility] Team Nurses Ia team! Sent this pt to the ED over the weekend for Hgb 7. Got admitted and looks like recently discharged. Can you please outreach her for status check and sched HDF w/ DrRod Name? Thank you!! documented in this encounter Plan of Treatment Upcoming Encounters Date Type Department Care Team (Late st Contact Info) Description 10/29/2024 2:30 PM EDT Office Visit [facility] [address] [place] [phone] Eddie Marshall MD [address] [place] [address] 11/12/2024 9:45 AM EDT Office Visit [address] [address] documented as of this encounter Visit Diagnoses Not on filedocumented in this encounter Care Teams Child And Adolescent Psychologist Relationship Specialty Start Date End Date Eddie Marshall MD [address] [place] [address] PCP - General Family Medicine 09/16/15 Jerica SEN 07/01/24 documented as of this encounter
--- OUTSIDE RECORDS SUMMARY | 2024-10-04 11:52 | XMS_ITS | Encounter Summary ---
Author Organization [employer] Address [address] [facility] 7t [place] [address] Care Team Providers Care Curbing Stonecutter Name Role Phone Name, Eddie GILMORE Primary Care Provider [phone] Reason for Visit * Reason Onset Date Comments ED follow up 09/27/2024 Encounter Details Date Type Department Care Team ([facility] st Contact Info) Description 09/27/2024 Telephone [facility] [address] [place], [place] [phone] Matilda Millan RN ED follow up Social [...] placed to pt for status check re: [facility] ED 09/26/24 Dx: Acute anterior epistaxis. Pt reports that she did return to ED to have packing removed. Pt requesting f/u appt due to lab work done in ED. Agrees to ED f/u with team provider this afternoon. * Telephone Encounter - Matilad Millan RN - 09/27/2024 11:43 AM EDT TC to pt. @[phone] to follow up rotational moulding operator center message as per below. VM left for pt to return call to [facility]. Per ED notes from 09/26: pt is to return to ED tomorrow Sat. 09/28 or Sun 09/29 for nasal packing removal. Will re attempt reaching pt for a f/u PCP OV for next week. Patient calling to report ED visit on : Date: 09/26/24 Hospital: [facility] Seen for: Nose bleeds Directions per [facility] ED 09/26/24 You were evaluated in the [...] Description 10/29/2024 2:30 PM EDT Office Visit [address] [address] Name, MD Eddie [address] [place] [address] 11/12/2024 9:45 AM EDT Office Visit [address] [address] documented as of this encounter Visit Diagnoses Not on filedocumented in this encounter Additional Health Concerns Assessment Noted Time PHQ-9 Depression Total Score: 9 05/10/20 24 11:56 AM EST documented as of this encounter Care Teams Curbing Stonecutter Relationship Specialty Start Date End Date NameEddie MD [address] [place] [address] PCP - General Family Medicine 09/16/15 Jerica VNA 07/01/24 documented as of this encounter
--- OUTSIDE RECORDS SUMMARY | 2024-10-04 11:52 | XMS_ITS | Encounter Summary ---
Author Organization [employer] Address [address] [place] [address] 7 [place] [address] Care Team Providers Care Aircraft Time Clerk Name Role Phone Name, Eddie GILMORE Primary Care Provider [phone] Encounter Details Date Type Department Care Team ([facility] Contact Info) Description 11/18/2022 Abstract [facility] MED[facility]INE [address] [place] [address] [phone] Name, MD Eddie [address] [place] [address] [phone] Social History Tobacco Use Types Packs/Day Years [...] Encounters Date Type Department Care Team ([facility] Contact Info) Description 10/29/2024 2:30 PM EDT Office Visit [facility] [address] [place] [address] Name, MD Eddie [address] [place] [address] [phone] 11/12/2024 9:45 AM EDT Office Visit [facility] [address] [place] [address] documented as of this encounter Visit Diagnoses Not on filedocumented in this encounter Care Teams Aircraft Time Clerk Relationship Specialty Start Date End Date Name, MD Eddie [address] [place] [address] PCP - General Family Medicine 09/16/15 Jerica A 07/01/24 documented as of this encounter
--- OUTSIDE RECORDS SUMMARY | 2024-10-04 11:52 | XMS_ITS | Encounter Summary ---
Author Organization [employer] Address [address] [place] [address] 7 [place] [address] Care Team Providers Care Dice Person Name Role Phone Name, Eddie GILMORE Primary Care Provider [phone] Reason for Visit * Reason Onset Date Comments Active Med List 06/28/2023 Encounter Details Date Type Department Care Team ([facility] st Contact Info) Description 06/28/2023 Telephone [facility] [address] [place], [place] [phone] Name, MD Eddie [address] [place] [address] Active Med List Social History Tobacco Use [...] requesting a updated active medication list typewriter ribbon winder did attempt to transfer to Medical records so that she can obtain this information but they kept transferring back to the call center. [facility] [address], [place], [place] [phone] documented in this encounter Plan of Treatment Upcoming Encounters Date Type Department Care Team (Late st Contact Info) Description 10/29/2024 2:30 PM EDT Office Visit [facility] [address] [place] [address] Name, MD Eddie [address] [place] [address] 11/12/2024 9:45 AM EDT Office Visit [facility] [address] [place] [address] documented as of this encounter Visit Diagnoses Not on filedocumented in this encounter Additional Health Concerns Assessment Noted Time PHQ-9 Depression Total Score: 10 023 1:16 PM EDT documented as of this encounter Care Teams Dice Person Relationship Specialty Start Date End Date Name, MD Eddie [address] [facility] [address] PCP - General Family Medicine 09/16/15 Jerica SEN 07/01/24 documented as of this encounter
--- OUTSIDE RECORDS SUMMARY | 2024-10-04 11:52 | XMS_ITS | Encounter Summary ---
Author Organization [employer] Address [address] [place] [address] 7t [place] [address] Care Team Providers Care Harbor Engineer Name Role Phone Name, Eddie GILMORE Primary Care Provider [phone] Encounter Details Date Type Department Care Team [...] Description 10/29/2024 2:30 PM EDT Office Visit [address] [address] NameEddie MD [address] [place] [address] 11/12/2024 9:45 AM EDT Office Visit [address] [address] documented as of this encounter Procedures Procedure Name Priority Date/Time Associated Diagnosis Comments PHOSPHATE ( PHOSPHORUS) Routine 09/30/2024 11:00 AM EDT documented in this encounter Results * Phosphate (As Phosphorus) (09/30/2024 11:00 AM EDT) Phosphorus 3.0 2.7 - 4.5 mg/dL [facility] 09/30/2024 11:0 0 AM EDT 09/30/2024 11:06 AM EDT us Generic External Data Provider LAB BLOOD ORDERAB LES Final Result [facility] [address] [place] [phone] [phone] documented in this encounter Visit Diagnoses Not on filedocumented in this encounter Additional Health Concerns Assessment Noted Time PHQ-9 Depression Total Score: 9 05/10/20 24 11:56 AM EST documented as of this encounter Care Teams Harbor Engineer Relationship Specialty Start Date End Date NameEddie MD [address] [facility] [place] [address] PCP - General Family Medicine 09/16/15 Jerica SEN 07/01/24 documented as of this encounter
--- OUTSIDE RECORDS SUMMARY | 2024-10-04 11:52 | XMS_ITS | Encounter Summary ---
Author Organization [employer] Address [address] [place] [address] [place] [address] Care Team Providers Care Manager State Name Role Phone Name, Eddie GILMORE Primary Care Provider [phone] Reason for Visit * Reason Comments Med Refill Encounter Details Date Type Department Care Team (Late st Contact Info) Description 01/29/2023 Refill [facility] MED[facility]INE [address] [place] [address] [phone] Farhana Singh FNP [address] [place] [address] Dept [place] [address] Social History Tobacco Use Types Packs/Day Years [...] 10/29/2024 2:30 PM EDT Office Visit [facility] [address] [place] [address] [phone] Name, MD Eddie [address] [place] [address] [phone] 11/12/2024 9:45 AM EDT Office Visit [facility] [address] [facility] [place] [address] documented as of this encounter Visit Diagnoses Not on filedocumented in this encounter Additional Health Concerns Assessment Noted Time PHQ-9 Depression Total Score: 10 11/28/ 023 1:16 PM EDT documented as of this encounter Care Teams Manager State Relationship Specialty Start Date End Date Name, MD Eddie [address] [facility] [place] [address] PCP - General Family Medicine 09/16/15 Jerica [facility] 07/01/24 documented as of this encounter
--- OUTSIDE RECORDS SUMMARY | 2024-10-04 11:52 | XMS_ITS | Encounter Summary ---
Author Organization [employer] Address [address] [place] [address] 7 [place] [address] Care Team Providers Care Demonstrator Knitting Name Role Phone Name, Eddie GILMORE Primary Care Provider [phone] Reason for Visit * Reason Onset Date Comments Referral 02/02/2023 Back dated refer ral Encounter Details Date Type Department Care Team ([facility] st Contact Info) Description 02/02/2023 Telephone [facility] [address] [place], [place] [phone] Name, MD Eddie [address] [place] [address] Referral (Back dated referral ) Social History [...] from DOS * Telephone Encounter - Louann Rmoo - 03/07/2023 1:40 PM EDT Tc from Kasie at [facility] requesting status on message below regarding referral. Fax number [phone]. Any questions please call [phone] * Telephone Encounter - Amber Roger RN - 02/03/2023 10:34 AM EDT Please review message below regarding backdated referral for these dates * Telephone Encounter - Laure Mcgill - 02/02/2023 2:07 PM EDT Tc from Kasie at [facility] calling in regards to referral needing to be back dated. Patient was seen at the office on 01/03/23 and 01/11/23. Fax number [phone]. Any questions please call [phone]. documented in this encounter Plan of Treatment Upcoming Encounters Date Type Department Care Team (Late st Contact Info) Description 10/29/2024 2:30 PM EDT Office Visit [address] [address] Name, MD Eddie [address] [place] [address] 11/12/2024 9:45 AM EDT Office Visit [address] [address] documented as of this encounter Visit Diagnoses Not on filedocumented in this encounter Additional Health Concerns Assessment Noted Time PHQ-9 Depression Total Score: 10 023 1:16 PM EDT documented as of this encounter Care Teams Demonstrator Knitting Relationship Specialty Start Date End Date Name, MD Eddie [address] [place] [address] PCP - General Family Medicine 09/16/15 Jerica SEN 07/01/24 documented as of this encounter
--- OUTSIDE RECORDS SUMMARY | 2024-10-04 11:52 | XMS_ITS | Clinical Summary ---
Author Organization [employer] Address [address] [place] [address] [address] [place] [address] Care Team Providers Care Attorney Lawyer Name Role Phone Name, Eddie GILMORE Primary Care Provider [phone] Allergies Active Allergy Reactions Criticality Noted Date [...] 06/01/20 22 Active Blood Glucose Monitoring Suppl (Ph.Creative Verio Flex System) w/Device kit USE DIRECTED [...] in the morning. 01/10/20 23 Active Lancets (LilLuxeuch Delica Plus [id number]) miscIndications :Controlled type 2 diabetes mellitus with complication, without long-term current use of insulin ([facility]) USE TO CHECK BLOOD SUGAR TWICE A DAY 100 each 5 09/15/19 24 Active glucose blood (LilLuxeuch Verio) test stripIndication s:Controlled type 2 diabetes mellitus with complication, without long-term current use of insulin ([facility]) CHECK BY FINGERSTICK TWICE DAILY 50 [...] mouth 2 times daily. 02/13/20 24 Active metFORMIN (Glucophage) 500 MG tablet TAKE 1 TABLET BY MOUTH TWICE DAILY IN THE MORNING AND AT BEDTIME 180 tablet 1 09/17/19 25 Active cyanocobalamin (Vitamin B-12) 1000 MCG tablet TAKE 1 TABLET BY MOUTH EVERY MORNING 90 tablet 1 09/17/19 25 Active albuterol 108 (90 Base) MCG/ACT inhaler INHALE 2 PUFFS BY MOUTH EVERY 4 TO 6 HOURS NEEDED 8.5 g 1 10/04/19 25 Active oxyCODONE-aceta minophen (Percocet) 5-325 MG tabletIndicatio ns:Chronic pain syndrome Take 1 tablet by mouth every 8 (eight) hours if needed for severe pain for up to 28 days. Do not start before October 08, 2024. 84 tablet 10/09/19 25 2024 Active metFORMIN (Glucophage) 500 MG [...] HOURS NEEDED 8.5 g 1 08/20/19 25 2024 Discontinued(R eorder (will not trigger notification to Pharmacy)) oxyCODONE-aceta minophen (Percocet) 5-325 MG tabletIndicatio ns:Chronic pain syndrome Take 1 tablet by mouth every 8 (eight) hours if needed for severe pain for up to 28 days. Do not start before September 10, 2024. 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:03/22/24 Tier II (visit every 3 months) [...] coronary artery 06/16/2022 Controlled type 2 diabetes rip villasenor with complication, without long-term current use of [...] Encounters Date Type Department Care Team Description 10/03/2024 Refill [facility] [address] [place] [address] NameEddie MD 10/03/2024 Telephone [facility] [address] [place] [address] NameEddie MD Med Refill 10/01/2024 Refill [facility] [address] [place] [address] Name, MD Eddie Chronic pain syndrome 09/30/2024 2:30 PM EDT Office Visit [facility] [address] [place] [address] Hannah Paula NP Low hemoglobin (Primary Dx) 09/30/2024 Travel 09/30/2024 Orders Only GENERIC EXTERNAL DATA DEPARTMENT Provider, Generic External Data 09/28/2024 Orders Only GENERIC EXTERNAL DATA DEPARTMENT Provider, Generic External Data 09/27/2024 Telephone [facility] [address] [place] [address] Matilda Millan RN ED follow up 09/27/[address] [address] Eddie Marshall MD ER Follow-up 09/26/[address] [address] Eddie Marshall MD Durable Medical Equipment 09/24/[address] [address] Eddie Marshall MD Durable Medical Equipment (Hip protectors) 09/24/2024 Telephone [facility] [address] [place] [address] Eddie Marshall MD DME Transport Chair 09/20/2024 Orders Only [facility] External Provider, [facility] 09/19/[address] [address] Eddie Marshall MD Call Back Request 09/15/[address] [address] Eddie Marshall MD 09/11/[address] [address] Eddie Marshall MD Durable Medical Equipment 09/10/2024 9:45 AM EDT Office Visit [address] [address] Mckenzie Trent FNP Chronic pain syndrome (Primary Dx); MCC (current) use of opiate analgesic 09/10/2024 Travel 09/09/[address] [address] Eddie Marshall MD 09/05/[address] [address] Eddie Marshall MD Chronic pain syndrome 08/27/2024 Orders Only GENERIC EXTERNAL DATA DEPARTMENT Provider, Generic External Data 08/26/2024 Orders Only [facility] External Provider, [facility] 08/19/2024 Refill [facility] [place] [address] Eddie Marshall MD 08/14/2024 Orders Only GENERIC EXTERNAL DATA DEPARTMENT Provider, Generic External Data 08/13/2024 Telephone [facility] [place] [address] Eddie Marshall MD Appointment Request 08/09/2024 Telephone [facility] [place] [address] Sophie Marie MA september recalls 08/09/2024 Telephone [facility] [place] [address] Sophie Marie MA september recalls 08/09/2024 Refill [facility] [place] [address] Eddie Marshall MD Chronic pain syndrome 08/02/2024 2:30 PM EST Office Visit [facility] [place] [address] Latanya Hoover MD Epistaxis (Primary Dx); Controlled type 2 diabetes mellitus with complication, without long-term current use of insulin ([facility]); Dietary counseling; Exercise counseling; Overweight; Anemia, unspecified type 08/02/2024 Travel 07/30/2024 Telephone [facility] [place] [address] Eddie Marshall MD ER Follow-up 07/23/2024 9:00 AM EST Office Visit [facility] [place] [address] Kelly Montoya MD Chronic pain syndrome (Primary Dx) 07/23/2024 Travel 07/17/2024 Refill [facility] [place] [address] Eddie Marshall MD 07/16/2024 9:45 AM EST Office Visit [facility] [place] [address] Mckenzie Trent FNP Chronic pain syndrome (Primary Dx); MCC (current) use of opiate analgesic 07/16/2024 9:15 AM EST Office Visit [facility] [address] [place] [address] Kelly Montoya MD Chronic pain syndrome (Primary Dx) 07/16/2024 Orders Only [facility] External Provider, [facility] 07/16/2024 Travel 07/12/2024 Refill [facility] [address] [place] [address] Name, MD Eddie 07/12/2024 Refill [facility] [address], [place] [phone] Name, MD Eddie Chronic pain syndrome from Last 3 Months Immunizations Name Administration Dates Next Due Influenza injectable quadriv alent IIV4 with preservative 04/07/2016 Influenza, IIV3, injectable 03/23/2015,1 ,03/08/2013,04/06,05/01/2008,04/19/2007,05/10/2006 ,03/15/2005 Novel [id number], preservative-free 05/22/2009 Pneumococcal Polysaccharide PPSV23 07/11/2013, TD [...] Description 10/29/2024 2:30 PM EDT Office Visit [facility] [address] [place] [address] Name, MD Eddie [address] [place] [address] 11/12/2024 9:45 AM EDT Office Visit [facility] [address] [facility] [place] [address] Health Maintenance Due Date Last Done Comments Zoster Vaccines (1 of 2) 1996 Pneumococcal Vaccine: 50+ Years (2 of 2 - PCV) 07/11/2014 07/11/2013, 03/02/2005 DTaP/Tdap/Td Vaccines (1 - Tdap) 03/25/2017 03/24/2017, 03/31/2003 RSV Patients and Patients Aged 60 years or older (1 - 1-dose 75+ series) 2021 COVID-19 Vaccine (2023- season) 2024 Influenza Vaccine (#1) 2024 6, [...] 09/10/2024 1:29 PM EDT Chronic pain syndrome MCC (current) use of opiate analgesic CT CHEST [...] DRUG SCREEN Routine 07/16/2024 1:49 PM EST 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 Pathologist [facility] Phosphorus 3.0 2.7 - 4.5 mg/dL [facility] 09/30/2024 11:0 0 AM EDT 09/30/2024 11:06 AM EDT Generic External Data Provider LAB BLOOD ORDERAB LES Final Result Performing Organization Address City/[facility] Co de Phone Number [facility] [address] [place] [phone] * OBSX1 (09/28/2024 5:12 PM EDT) Pathologist [facility] OBS1 NEGATIVE NEGATIVE [facility] 09/28/2024 5:12 PM EDT 09/28/2024 5:20 PM EDT Desti External Data Provider LAB BLOOD ORDERAB LES Final Result Performing Organization Address [facility] Co de Phone Number [facility] [address] [place] [phone] * (ABNORMAL) CBC auto differential (09/28/2024 4:02 PM EDT) Only the most recent of2 resultswithin the time period is included. Pathologist [facility] White Blood Count 8.2 4.8 - 10.8 X10*3/uL [facility] Red Blood Count 3.58(L) 4.20 - 5.50 X10*6/uL [facility] Hemoglobin 8.5(L) 12.0 - 16.0 g/dl [facility] Hematocrit 28.2(L) 37.0 - 47.0 % [facility] Mean Corpuscular Volume 78.8(L) 80.0 - 98.0 fL [facility] Mean Corpuscular Hemoglobin 23.7(L) 27.0 - 33.0 pg [facility] Mean Corpuscular HGB Conc 30.1(L) 31.0 - 35.0 g/dl [facility] Red Cell Distribution Width 18.2(H) 11.0 - 16.0 % [facility] Platelet Count 344 160 - 400 X10*3/uL [facility] Mean Platelet Volume 9.4 9.4 - 12.3 fL [facility] Neutrophils Percent Auto 66.5 45 - 73 % [facility] Imm Gran Pct Auto 0.4 0.0 - 0.4 % [facility] Lymphocytes Percent Auto 20.0 20 - 40 % [facility] Monocytes Percent Auto 10.3 2 - 11 % [facility] Eosinophils Percent Auto 2.3 0 - 4 % [facility] Basophils Percent Auto 0.5 0 - 2 % [facility] NRBC Pct Auto 0.0 0.0 - 0.2 /100WBC [facility] Neutrophils Absolute Auto 5.4 2.0 - 8.3 x10*3/uL [facility] Imm Gran Abs Auto 0.03 0.00 - 0.03 X10*3/uL [facility] Lymphocytes Absolute Auto 1.6 1.2 - 4.9 X10*3/uL [facility] Monocytes Absolute Auto 0.8 0.1 - 1.2 X10*3/uL [facility] Eosinophils Absolute Auto 0.2 0.0 - 0.4 X10*3/uL [facility] Basophils Absolute Auto 0.0 0.0 - 0.2 X10*3/uL [facility] NRBC Abs Auto 0.000 0.0 - 0.012 X10*3/uL [facility] 09/28/2024 4:02 PM EDT 09/28/2024 4:06 PM EDT us Generic External Data Provider LAB BLOOD ORDERAB LES Final Result Performing Organization Address [facility] Co de Phone Number [facility] [address] [place] [phone] * Prothrombin Time-INR (09/28/2024 4:02 PM EDT) [facility] Prothrombin Time 11.6 10.9 - 12.4 SEC [facility] INTERNATIONAL NORM RATIO 1.0 0.9 - 1.1 [facility] Comment:INTERNATIONAL NORMAL IZED RATIO (INR) [...] ORDERAB LES Final Result Performing Organization Address [facility] [[email or web address]] de Phone Number [facility] [address] [place] [phone] * (ABNORMAL) Basic Metabolic Panel (09/28/2024 4:02 PM EDT) Only the most recent of2 resultswithin the time period is included. [facility] Sodium 138 135 - 145 mmol/L [facility] Potassium 4.2 3.3 - 5.1 mmol/L [facility] Chloride 104 96 - 108 mmol/L [facility] Carbon Dioxide 25 22 - 29 mmol/L [facility] Anion Gap 13 12 - 20 [facility] Urea Nitrogen (BUN) 21(H) 9 - 16 mg/dL [facility] Creatinine, Serum 0.66 0.5 - 1.4 mg/dL [facility] Creatinine Clr Calc Pharmacy 62.2 [facility] Comment:Provided height and weight: 157.48 cm,63 kg.eGFR (calculated from the MDRD study equation) and eCrCl(calculated from the Cockcroft-Gault equation) are based ondifferent parameters and may not yield comparable results.If eCrCl result is absurd, please check patient'sheight/weight. Estimated Glomerular Filt Rate >60 [facility] Comment:Chronic Kidney Disea se: Estimated GFR < 60 mL/min/1.83b9Bdmohe Kidney Disease: Estimated GFR < 15 mL/min/1.73m2 Glucose 131(H) 60 - 115 mg/dL [facility] Calcium 9.2 8.4 - 10.2 mg/dL [facility] 09/28/2024 4:02 PM EDT 09/28/2024 4:06 PM EDT us Generic External Data Provider LAB BLOOD ORDERAB LES Final Result [facility] [address] [place] [phone] [phone] * XR Chest 2 Views (09/20/2024 10:12 AM EDT) Anatomical Region Laterality Modality Chest Radiographic Tanya ging 09/20/2024 10:1 2 AM EDT Narrative 09/20/2024 10:27 AM EDT ? [facility] ?[address] ?[place] [address] ?XRay Report ? Signed ? Patient: Jenniffer,Celeste ?MR#: [id number] ?? 4 ? : 1945 ?Acct:[id number] ? Age/Sex: 78 / F ?ADM Date: 04/04/25 ? Loc: HO.XRAY ? Attending Dr: Maria Esther Blum SCIENTIFIC WRITER ? Ordering Physician: Maria Esther Blum NP ?? Date of Service: 09/20/24 ?? Procedure(s): XR chest 2V ?? Accession Number(s): [id number] ? cc: Name,Eddie GILMORE; Maria Esther Blum [...] DD/ 1012 ? TD/TT: 09/20/24 1017 ? Graduate Nurse: ? Procedure Note Geoff, Image - 09/20/2024 [place] [address] XRay Report Signed Patient: Ventura Abad#: [id number] 4 : 7Acct:[id number] Age/Sex: 78 / FADM Date: 09/20/24 Loc: [facility] Attending Dr: Maria Esther Blum NP Ordering Physician: Maria Esther Blum NP Date of Service: 09/20/24 Procedure(s): XR chest 2V Accession Number(s): [id number] cc: Eddie Marshall MD; Maria Esther Blum [...] 09/20/24 1024 DD/ 1012 TD/TT: 09/20/24 1017 Graduate Nurse: [facility] External Provider IMG XR PROCEDURES Final Result [...] Suarez [place] - 09/10/2024 1:30 PM EDT Lot:[id number] Exp: 02/06/2028 Mckenzie Trent BOX PACKER POINT OF CARE TEST ENTER/EDIT ORDERABLES Final Result * CT Chest w/o Contrast (08/27/2024 2:12 PM EDT) Anatomical Region Laterality Modality Body, Chest Computed Tomogra phy 08/27/2024 2:12 PM EDT Narrative 08/27/2024 2:14 PM EDT ? [place] [facility] ?[address] ?[place] [address] ? CT Scan Report ? Signed ? Patient: Jenniffer,Celeste ?MR#: [id number] ?? 4 ? : 1945 ?Acct:[id number] ? Age/Sex: 78 / F ?ADM Date: 08/26/24 ? Loc: HO.CT ? Attending Dr: Maria Esther Blum SCIENTIFIC WRITER ? Ordering Physician: Maria Esther Blum NP ?? Date of Service: 08/26/24 ?? Procedure(s): CT chest wo IV con ?? Accession Number(s): [id number] ? cc: Name,Eddie GILMORE; Maria Esther Blum NP ? Report Number: ?? [id number]: Total DLP = ??208.00 mGy-cm ? CLINICAL [...] DD/ 1412 ? TD/TT: 08/27/24 1412 ? Graduate Nurse: ? Procedure Note Geoff, Sahil - 08/27/[address] [address] [address] Scan Report Signed Patient: Ventura Abad#: [id number] 4 : 7Acct:[id number] Age/Sex: 78 / FADM Date: 08/26/24 Loc: HO.CT Attending Dr: Maria Esther Blum SCIENTIFIC WRITER Ordering Physician: Maria Esther Blum NP Date of Service: 08/26/24 Procedure(s): CT chest wo IV con Accession Number(s): [id number] cc: Name,Eddie GILMORE; Maria Esther Blum SCIENTIFIC WRITER Report Number: [id number]: Total DLP = 208.00 mGy-cm CLINICAL HISTORY: [...] in OV> 08/27/24 1413 DD/ 141 TD/TT: 08/27/241411 Graduate Nurse: [facility] External Provider IMG CT PROCEDURES Final Result * (ABNORMAL) Iron And Total Iron Binding Capacity (08/27/2024 1:25 PM EDT) Pathologist [facility] Iron 14(L) 30 - 160 mcg/dL [facility] Total Iron Binding Capacity 295 228 - 428 mcg/dL [facility] Percent Iron Saturation 5(L) 15 - 50 % [facility] Unsaturated Iron Binding 281 ug/dL [facility] 08/27/2024 1:25 PM EDT 08/27/2024 1:25 PM EDT Generic External Data Provider LAB BLOOD ORDERAB LES Final Result [facility] [address] [place] [phone] * (ABNORMAL) CBC (08/27/2024 1:25 PM EDT) White Blood Count 9.0 4.8 - 10.8 X10*3/uL [facility] Red Blood Count 4.06(L) 4.20 - 5.50 X10*6/uL [facility] Hemoglobin 10.0(L) 12.0 - 16.0 g/dl [facility] Hematocrit 33.1(L) 37.0 - 47.0 % [facility] Mean Corpuscular Volume 81.5 80.0 - 98.0 fL [facility] Mean Corpuscular Hemoglobin 24.6(L) 27.0 - 33.0 pg [facility] Mean Corpuscular HGB Conc 30.2(L) 31.0 - 35.0 g/dl [facility] Red Cell Distribution Width 16.3(H) 11.0 - 16.0 % [facility] Platelet Count 393 160 - 400 X10*3/uL [facility] Mean Platelet Volume 9.4 9.4 - 12.3 fL [facility] NRBC Pct Auto 0.0 0.0 - 0.2 /100WBC [facility] NRBC Abs Auto 0.000 0.0 - 0.012 X10*3/uL [facility] 08/27/2024 1:25 PM EDT 08/27/2024 1:25 PM EDT us Generic External Data Provider LAB BLOOD ORDERAB LES Final Result Performing Organization Address [facility] Co de Phone Number [facility] [address] [place] [phone] * Ferritin (08/27/2024 1:25 PM EDT) Ferritin 35 10 - 250 ng/mL [facility] 08/27/2024 1:25 PM EDT 08/27/2024 1:25 PM EDT us Generic External Data Provider LAB BLOOD ORDERAB LES Final Result Performing Organization Address [facility] [[email or web address]] de Phone Number [facility] [address] [place] [phone] * FL Esophagus Barium Swallow w/Air (08/14/2024 9:52 AM EST) Anatomical Region Laterality Modality Head, Neck Radiographic Tanya ging 08/14/2024 9:52 AM EST Narrative 08/15/2024 4:55 PM EST ? [facility] ?[address] ?[place], [place] [address] ? Fluoroscopy Report ? Signed ? Patient: Celeste Abad ?MR#: [id number] ?? 4 ? : 1945 ?Acct:[id number] ? Age/Sex: 78 / F ?ADM Date: 08/14/24 ? Loc: HO.XRAY ? Attending Dr: Julia Li MD ? Ordering Physician: Julia Li MD ?? Date of Service: 08/14/24 ?? Procedure(s): FL barium swallow with air ?? Accession Number(s): [id number] ? cc: Name,Eddie GILMORE; Julia Li MD [...] DD/ 0952 ? TD/TT: 08/14/24 1020 ? Graduate Nurse: ? Procedure Note Donluis, Image - 08/15/[address] [address] Fluoroscopy Report Signed Patient: Ventura Abad#: [id number] 4 : 7Acct:[id number] Age/Sex: 78 / FADM Date: 08/14/24 Loc: [facility] Attending Dr: Julia Li MD Ordering Physician: Julia Li MD Date of Service: 08/14/24 Procedure(s): FL barium swallow with air Accession Number(s): [id number] cc: Name,Eddie GILMORE; Julia Li MD EXAMINATION: [...] 08/15/24 1654 DD/ 0952 TD/TT: 08/14/24 1020 Graduate Nurse: [facility] External Provider IMG FLU OROSCOPY PROCEDURES Final Result * Immunofixation (ALEXANDER), Urine (08/14/2024 9:41 AM EST) Pathologist [facility] ALEXANDER Interpretation SEE NOTE H [facility] Comment:Normal pattern. No m onoclonal proteins detected.The supplier of the testing reagents for this assayhas changed. Detection of small monoclonal proteins mayvary by test system.THIS TEST WAS PERFORMED AT:[id number] [place] [phone] PAYNE MD 08/14/2024 9:41 AM EST 08/14/2024 10:39 AM EST Generic External Data Provider LAB URINE ORDERAB LES Final Result [facility] [address] [place] [phone] * (ABNORMAL) Protein, Total and Protein??Electrophoresis (08/14/2024 9:37 AM EST) Prot Elec - Total Protein 6.7 6.1 - 8.1 g/dL [facility] Prot Elec - Albumin 3.2(A) 3.8 - 4.8 g/dL [facility] Prot Elec - Alpha1 0.4(A) 0.2 - 0.3 g/dL [facility] Prot Elec - Alpha2 1.1(A) 0.5 - 0.9 g/dL [facility] Prot Elec - Beta 1 0.5 0.4 - 0.6 g/dL [facility] Prot Elec - Beta 2 0.5 0.2 - 0.5 g/dL [facility] Prot Elec - Gamma 1.0 0.8 - 1.7 g/dL [facility] PES - Abn Protein Band 1 TNP [facility] PES-Abn Protein Band 2 TNP [facility] PES-Abn Protein Band 3 TNP [facility] Prot Elec - Interpretation SEE NOTE [facility] Comment:Evaluation is consis tent with an acute inflammatorypattern.THIS TEST WAS PERFORMED AT:[facility] [place] [phone] PAYNE MD 08/14/2024 9:37 AM EST 08/14/2024 9:41 AM EST Generic External Data Provider LAB BLOOD ORDERAB LES Final Result [facility] [address] [place] [phone] * (ABNORMAL) POCT HGB A1C (08/02/2024 [...] EST Narrative 07/16/2024 7:07 PM EST ? [facility] ?[address] ?[place] [address] ?XRay Report ? Signed ? Patient: Celeste Abad ?MR#: [id number] ?? 4 ? : 1945 ?Acct:[id number] ? Age/Sex: 78 / F ?ADM Date: 07/16/24 ? Loc: HO.ED ? Attending Dr: ? Ordering Physician: Rhea Ken ?? Date of Service: 07/16/24 ?? Procedure(s): XR KUB ?? Accession Number(s): [id number] ? cc: Rhea Ken; Name,Eddie GILMORE ? [...] ? DD/ 06 ? TD/TT: 07/16/241906 ? Graduate Nurse: ? Procedure Note Geoff, Image - 07/16/[address] [address] XRay Report Signed Patient: Ventura bAad#: [id number] 4 : 7Acct:[id number] Age/Sex: 78 / FADM Date: 07/16/24 Loc: HO.ED Attending Dr: Ordering Physician: Rhea Ken Date of Service: 07/16/24 Procedure(s): XR KUB Accession Number(s): [id number] cc: Rhea Ken; Name,Eddie GILMORE CLINICAL HISTORY: [...] in OV> 07/16/241906 DD/ 06 TD/TT: 07/16/241906 Graduate Nurse: [facility] External Provider IMG XR PROCEDURES Final Result * SARS-CoV-2 RNA, Influenza A/B, and RSV RNA, Ql NAAT (07/16/2024 7:06 PM EST) Influenza A PCR NEGATIVE Negative [facility] Influenza B PCR NEGATIVE Negative [facility] Resp Syncy Virus RNA Qual PCR NEGATIVE Negative [facility] SARS COV2 PCR NEGATIVE Negative THE [...] use by authorized laboratories.Testing performed on the [employer] GeneXpert utilizingreal-time RT-PCR.All SARS CoV2 and positive influenza A/B results arereported to [facility]. 07/16/2024 7:06 PM EST 07/16/2024 7:11 PM EST Generic External Data Provider LAB MICROBIOLOGY - GENERAL ORDERABLES Final Result [facility] [address] [place] [phone] * Magnesium (07/16/2024 7:06 PM EST) Magnesium 2.2 1.6 - 2.6 mg/dL [facility] 07/16/2024 7:06 PM EST 07/16/2024 7:11 PM EST Generic External Data Provider LAB BLOOD ORDERAB LES Final Result Performing Organization Address City/[facility]/ZIP Co de Phone Number [facility] [facility] [address] [place] [phone] * Lipase (07/16/2024 7:06 PM EST) Pathologist [facility] Lipase 8 8 - 78 U/L [facility] 07/16/2024 7:06 PM EST 07/16/2024 7:11 PM EST Generic External Data Provider LAB BLOOD ORDERAB LES Final Result Performing Organization Address City/[facility]/ZIP Co de Phone Number [facility] [address] [place] [address] [phone] * (ABNORMAL) Hepatic Function Panel (07/16/2024 7:06 PM EST) Bilirubin, Total 0.4 0.0 - 1.0 mg/dL [facility] Bilirubin, Direct 0.2 0.0 - 0.5 mg/dL [facility] Aspartate Amino Transferase 37(H) 5 - 31 U/L [facility] Alanine Aminotransferase 27 0 - 31 U/L [facility] Total Protein 7.5 6.5 - 8.0 g/dL [facility] Albumin Level 3.9 3.5 - 5.0 g/dL [facility] Alkaline Phosphatase 136(H) 39 - 117 U/L [facility] 07/16/2024 7:06 PM EST 07/16/2024 7:11 PM EST us Generic External Data Provider LAB BLOOD ORDERAB LES Final Result Performing Organization Address City/[facility]/ZIP Co de Phone Number [facility] [address] [place] [address] [phone] * (ABNORMAL) Lipid Panel, Standard (01/16/2024 9:40 AM EDT) Triglycerides 199(H) <150 mg/dL [facility] Comment:Desirable Triglyceri de: less than 150 mg/dLBorderline High Triglyceride 150-199 mg/dLHigh Triglyceride: 200-499 mg/dLVery High Triglyceride: greater than or equal to 5OO mg/dL Cholesterol 150 <200 mg/dL [facility] Comment:Desirable Cholestero l: less than 200 mg/dLBorderline High Cholesterol: 200-239 mg/dLHigh Cholesterol: greater than 239 mg/dL LDL Cholesterol Calculated 63 <100 mg/dL [facility] Comment:Desirable LDL: less than 100 mg/dLNear Optimal/Above Optimal LDL: 110- 129 mg/dLBorderline High LDL: 130-159 mg/dLHigh LDL: 160-189 mg/dLVery High LDL: greater than or equal to 190 mg/dL HDL Cholesterol 48 >40 mg/dL [facility] Comment:Desirable HDL: great er than 40 mg/dL Note: This HDL assay may give artificially low results in patients with liver disease. Blood Venous blood specimen / Unknown 01/16/2024 9:40 AM EDT 01/16/2024 11:20 AM EDT us Eddie Marshall MD LAB BLOOD ORDERABLES Final Resul t [facility] [address] [place] [address] [phone] * Albumin, Random Urine W/Creatinine (01/16/2024 9:35 AM EDT) Creatinine, Urine 27.62 mg/dL [facility] Microalbumin Urine <5.0 mg/L [facility] Microalbum Creatinine Ratio Ur TNP <30 ug/mg cr [facility] Comment:Unable to calculate albumin/creatinine ratio due to lowmicroalbumin or creatinine result. Urine (Urine, Random) 01/16/2024 9:35 AM EDT 01/16/2024 11:12 AM EDT us Eddie Marshall MD LAB URINE ORDERABLES Final Resul t [facility] [address] [place] [phone] * Hm Diabetes Eye Exam (05/16/2023) Eye Exam Normal Normal us Eddie Marshall MD HEALTH MAINTENANCE Final Result * (ABNORMAL) Hepatitis Panel, General (11/18/2022 2:07 PM EDT) Hepatitis A Antibody Total REACTIVE( A) NON-REACT NAHID [employer] [facility] Comment: For additional information, please refer to http://ePrep.Light Extraction/faq/QXM519 (This link is being provided for informational/ educational purposes only.) Hepatitis B Surface Antibody QL NON-REACT NAHID NON-REACT NAHID [employer] [facility] Hepatitis B Surface Ag NON-REACT NAHID NON-REACT NAHID [employer] [facility] Hepatitis B Core Antibody Total NON-REACT NAHID NON-REACT NAHID [employer] [facility] Hepatitis C Antibody NON-REACT NAHID NON-REACT NAHID [employer] [facility] Intelestreamt Index 0.07 <1.00 [employer] [place] [facility] Comment: HCV antibody was non-reactive. There is no laboratory evidence of HCV infection. In most cases, no further action is required. However, if recent HCV exposure is suspected, a test for HCV RNA (test code 27472) is suggested. For additional information please refer to http://ePrep.Light Extraction/faq/RWP59m5 (This link is being provided for informational/ educational purposes only.) 11/18/2022 2:07 PM EDT 11/18/2022 2:09 PM EDT Narrative [facility] - 11/19/2022 6:51 AM EDT COLLECTION KIT GIVEN TO PATIENT. PATIENT ADVISED TO RETURN. Mckenzie Pillai BOX PACKER LAB BLOOD ORDERABLES Final Res ult [facility] [address], [place] [address] [employer] [place] [facility] [address] [place] [address] from Last 3 Months or Most Recently Relevant to Health Maintenance Insurance [employer] Care Teams Attorney Lawyer Relationship Specialty Start Date End Date Name, MD Eddie [address] [place] [address] PCP - General Family Medicine [facility]/16/15 [facility]
--- OUTSIDE RECORDS SUMMARY | 2024-10-04 11:52 | XMS_ITS | Encounter Summary ---
Author Organization [employer] Address [address] [place] [address] 7 [place] [address] Care Team Providers Care Facilities Specialist Name Role Phone Name, Eddie GILMORE Primary Care Provider [phone] Reason for Visit * Reason Onset Date Comments Durable Medical Equipment 09/26/2024 Encounter Details Date Type Department Care Team ([facility] st Contact Info) Description 09/26/2024 Telephone [facility] [address] [place], [place] [phone] Name, MD Eddie [address] [place] [address] Durable Medical Equipment Social History Tobacco Use [...] for hip protector signed and faxed to [facility] . Confirmation received and sent to [facility]. If patient calls to check status on above, please advise them to contact [facility] services team @[phone] . * Telephone Encounter - Clari Moss - 09/26/2024 8:39 AM EDT Tc from [facility] requesting a Hip Protector. P. [phone] F. [phone] ( ATTENTION; KERMIT) documented in this encounter Plan of Treatment Upcoming Encounters Date Type Department Care Team (Late st Contact Info) Description 10/29/2024 2:30 PM EDT Office Visit [facility] [address] [place] [phone] Name, MD Eddie [address] [place] [address] 11/12/2024 9:45 AM EDT Office Visit [facility] [address] [place] [address] documented as of this encounter Visit Diagnoses Not on filedocumented in this encounter Additional Health Concerns Assessment Noted Time PHQ-9 Depression Total Score: 9 05/10/20 24 11:56 AM EST documented as of this encounter Care Teams Facilities Specialist Relationship Specialty Start Date End Date Name, MD Eddie [address] [place] [address] PCP - General Family Medicine 09/16/15 [facility] 07/01/24 documented as of this encounter
--- OUTSIDE RECORDS SUMMARY | 2024-10-04 11:52 | XMS_ITS | Encounter Summary ---
Author Organization [employer] Address [address] [place] [address] 7[address] [place] [address] Care Team Providers Care Fur Finisher Seamstress Name Role Phone Name, Eddie GILMORE Primary Care Provider [phone] Encounter Details Date Type Department Care Team ([facility] st Contact Info) Description 12/07/2022 Telephone [facility] [address] [place], [place] [phone] Name, MD Eddie [address] [place] [address] Social History Tobacco Use Types Packs/Day Years [...] update PCP now. Ordering provider Pierce Pillai FLAG SIGNALER Follow with fredyn as indicated. Results faxed at time of call to [phone]. Ref.# [id number] C documented in this encounter Plan of Treatment Upcoming Encounters Date Type Department Care Team (Late st Contact Info) Description 10/29/2024 2:30 PM EDT Office Visit [facility] [address] [place] [address] Name, MD Eddie [address] [place] [address] 11/12/2024 9:45 AM EDT Office Visit [address] [address] documented as of this encounter Visit Diagnoses Not on filedocumented in this encounter Additional Health Concerns Assessment Noted Time PHQ-9 Depression Total Score: 10 023 1:16 PM EDT documented as of this encounter Care Teams Fur Finisher Seamstress Relationship Specialty Start Date End Date Name, MD Eddie [address] [place] [address] PCP - General Family Medicine 09/16/15 [facility] 07/01/24 documented as of this encounter
[2024-10-04 13:19] LABS: MANUAL DIFF FLAG NO
[2024-10-04 13:28] LABS: Basophils Absolute Auto 0.1 X10*3/uL (0.0-0.2); Basophils Percent Auto 0.8 % (0-2); Eosinophils Absolute Auto 0.2 X10*3/uL (0.0-0.4); Hematocrit 29.7 % (37.0-47.0); Hemoglobin 8.7 g/dl (12.0-16.0); Imm Gran Abs Auto 0.03 X10*3/uL (0.00-0.03); Imm Gran Pct Auto 0.3 % (0.0-0.4); Lymphocytes Absolute Auto 1.8 X10*3/uL (1.2-4.9); Mean Corpuscular HGB Conc 29.3 g/dl (31.0-35.0); Mean Corpuscular Hemoglobin 23.3 pg (27.0-33.0); Mean Corpuscular Volume 79.6 fL (80.0-98.0); Mean Platelet Volume 9.9 fL (9.4-12.3); Monocytes Absolute Auto 0.8 X10*3/uL (0.1-1.2); Monocytes Percent Auto 9.3 % (2-11); Neutrophils Percent Auto 67.6 % (45-73); Platelet Count 440 X10*3/uL (160-400); Red Blood Count 3.73 X10*6/uL (4.20-5.50); Red Cell Distribution Width 20.4 % (11.0-16.0); White Blood Count 8.9 X10*3/uL (4.8-10.8)
== END 2024-10-04 10:50 | disposition home or self-care (01) ==
LOC: HO.HHCL 10:49
PROVIDERS: Visit Provider Nurse Practitioner
DX: D64.9 Anemia, unspecified (principal)
CPT/HCPCS: 36415; 85025

== ENCOUNTER 2024-10-14 12:16 | Outpatient (AMB) | payer MEDICARE, SELFPAY ==
--- NOTE | 2024-10-14 12:33 | A.OFFVIS_ITS ---
Vital Signs 10/14/24 12:35 Height 5 ft 2 in Weight 138 lb BMI 25.2 BP 114/57 L Blood Pressure Location Lt brachial Position Sitting Pulse 93 Pulse Oximetry (%) 74 L Oxygen Delivery Method Room Air Intake Visit Reasons: ED f/u Intake Note: Patient follow up from ED for Anemia. Patient cc: hard stool, difficulty swallowing pills, acid reflex. Quality Assurance Nurse Required: No Accompanied by: Family/Other Allergies scallops Allergy (Unknown, Verified 10/14/24 12:33) Unknown HPI Comments Details: This is a 77-year-old female with extensive coronary artery disease status post PCI May 2022, on dual anti-platelet therapy, hypertension, hyperlipidemia, who was recently admitted for severe anemia with GI consultation for GI bleed. Inpt consultation 11/20/22: History was obtained the patient, who states that she has been having intermittent abdominal pain with weakness, shortness of breath and lightheadedness for a few months now. Also reports an unintentional weight loss of > 10lbs in the last few months which she charts to diarrhea. In terms of the diarrhea, describes it as loose, watery occuring up to 5-6 times a day. Most recently has progressed in the last 2 weeks to the point that she is unable to step out of the home for more than a few minutes. Night time sx +. No blood in stool or melena. Specifically describes stool as yellow to brown. She was seen by her PCP for these sx on Monday who ordered blood work and she received a call Monday morning to go to the ER due to drop in H/H requiring blood transfusion. Last colo per her report was more than 5 years ago and was incomplete due to difficult sigmoid colon . She does not recall if she had a follow up barium enema or colonography. Son (Raymundo) at bedside also gives a hx of anemia a few years ago for which she was seen at [place] but states that pt was told she had internal bleeding and was discharged from the ER, does not recall if a GI work up was recommended at that time. On arrival to the emergency room, she was noted to be hemodynamically stable.? Labs were significant for acute drop in hemoglobin to 7.2, with mildly elevated leukocytosis and a narrow MCV of 72.6.? s/p 2U PRBC transfusion. She also underwent CT abdomen pelvis with IV contrast that does not show any acute findings to explain the weight loss. 11/24/22 - EGD/colo: Impression: 1. Normal esophagus 2. Large Hill grade IV hiatal hernia 3. Normal stomach (biopsy) 4. Normal duodenum (biopsy) 5. Normal colon and terminal ileum mucosa 6. Diverticulosis 7. Internal hemorrhoids Path: A.? Duodenum, biopsy:? Duodenal mucosa within normal limits. B.? Stomach, random, biopsy:? Antral-type and oxyntic mucosa with mild chronic inactive inflammation; no Helicobacter organisms seen. 12/12/22: Pt comes in accompanied by her son for follow up post procedure. Of note, was recently informed by urgent care that stool study was positive for C Diff. On Vanc PO, has completed 5 days already. Otherwise, sx are unchanged: abd pain, bloating, diarrhea. Fatigue and shortness of breath better since improvement in anemia. Labs reviewed. CTE 01/16/23: Severe diverticulosis of the colon. Moderate size hiatal hernia. Small left renal stone. Areas of renal cortical thinning or scarring, left greater than right. 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 02/13/23: Currently no abd pain, N,V. Diarrhea resolved but comes and goes. Reports issues with fecal incontinence. Also sees UroGYN for urinary incontinence. Has been taking iron supplements daily. Pt also has been transitioned to plavix monotherapy from ASA+ brillinta. 07/31/23: Was seen by Carlotta Amador in the interim for question recurrent iron-deficiency anemia. Was advised to resume oral iron. However, patient reports that she has still not resumed the iron supplementation. She last to cut back in January. Labs reviewed, hemoglobin trending up, but ferritin is low at 18. 01/29/24: Seen in follow up. Reports improvement in abd cramping and frequent BMs by taking a gut supplement Christine. Has not had any incontinence either now. Main c/o is burning stinging pain on passing BMs and sometimes even when shes resting. No blood noted. DOes not strain or pass hard stools. [place] 2022 with int hemorrhoids otherwise normal appearing anorectum. Pt also has nightly heartburn despite taking pantoprazole. Has also been raising the head of her bed at night without much improvement. 05/22/24: Here for follow up. Pt again in a time crunch due to how she scheduled her transport back. Was never able to get her med for anal fissure. Reports persistent constipation but when administered enema had burning and noticed a streak of blood. In addition, also has heartburn rosanna at night, with nausea and regurgitation. Goes to sleep within an hour of taking her last meal of the day. Has known large hiatal hernia. On protonix (nexium prescribed but developed diarrhea and hives). Taking this alongside pepcid. NO change in appetite, no unintentional weight loss. 08/26/24: Here for follow up. Barium swallow completed - confirms large hiatal hernia. Pt already referred to foregut surgery - seeing Dr Aragon next week. Barium swallow 08/19/24: 1. Laryngeal penetration with thick and thin consistency barium. No subglottic aspiration was observed. 2. Mild esophageal dysmotility. 3. Large paraesophageal hernia, with the majority the fundus located within the thoracic cavity. 4. Moderate gastroesophageal reflux. 5. Thickened appearance of the gastric rugal folds, suggestive gastritis. 6. Small diverticulum noted in the second segment of duodenum. 7. Status post cholecystectomy. Pt also reports x2 episodes of large volume epistaxis last month. Was seen in [place]. H/H dropped from 12.1 to 10.9 within 5 days. Wonders if she should go back on iron supplements. 10/14/24: Here for ER follow up. Was seen x 2 again for epistaxis. Now established with ENT as outpatient. Blood counts have understandably dropped. Unclear status of iron infusions since pt canceled those appts arranged by our office but is not sure if bariatrics office will coordinate. Secondly, was seen by cardiology and deemed a high risk surgical candidate. Agreeable to maximizing anti secretory therapy for now and would like to hold off referral for TIF. Of note- omeprazole, pantoprazole and carafate noted on her meds. Pt developed constipation with carafate and is not taking omeprazole. [facility] Medical History Paraesophageal hernia Osteoporosis Lower GI bleed Rectal bleed Anemia Stable angina Essential hypertension CVA (cerebral vascular accident) CAD (coronary artery disease) Surgical History Status post cardiac catheterization History of cardiac cath History of adenoidectomy Hx of tonsillectomy Hx of hernia repair History of section History of cholecystectomy History of appendectomy Family History Mother Cancer Father Heart attack Social History Household Members: Children Housing: House Do you presently have visiting nurse or other home services: Yes Unable to assess alcohol history related to: Unknown Alcohol intake: never Patient Tobacco Use Status: Former Tobacco user Years Smoked: 30 +/- e-Cigarette/Vaping Use: Never Used Second Hand Smoke Exposure: No Substance Use Type: Marijuana service: No Current occupational status: retired Current occupation: right hand dominant Review of Systems Const All systems reviewed & are unremarkable except as noted in HPI and below Physical Exam Vital Signs: Last Vital Signs Pulse 93 10/14/24 12:35 BP 114/57 L 10/14/24 12:35 Pulse Ox 74 L 10/14/24 12:35 Oxygen Delivery Method Room Air 10/14/24 12:35 BMI result Body Mass Index 25.2 Assessment & Plan Assessment & Plan (1) GERD (gastroesophageal reflux disease): Code(s): K21.9 - Gastro-esophageal reflux disease without esophagitis Category: Medical (2) Hemorrhoids: Code(s): K64.9 - Unspecified hemorrhoids Category: Medical (3) Epistaxis: Code(s): R04.0 - Epistaxis Category: Medical (4) Hiatal hernia: Code(s): K44.9 - Diaphragmatic hernia without obstruction or gangrene Category: Medical (5) Osteoporosis: Code(s): M81.0 - Age-related osteoporosis without current pathological fracture Category: Medical Plan: #GERD # Large hiatal hernia minimal response to pantoprazole once daily. Has known large hiatal hernia. Seeing foregut surgery next week for ? candidacy for repair. - Cont protonix 40 BID - Pt to take this on empty stomach - cont to elevate HOB at least 30 deg - Avoid trigger foods #Epistaxis #anemia reports large volume epistaxis x2 last month. Seeing ENT now and already underwent cauterization once but tells me need additional sessions. Labs from [facility] reviewed. Plan: - Check CBC, iron studies - Start PO iron - pt on calcium supplements for bone health so reminded to space these out - Also offered IV venofer but pt would like to hold off for now to reduce doctors appts burden Follow up 6 months. (6) Anemia: Code(s): D64.9 - Anemia, unspecified Category: Medical Plan #GERD Had carafate added to her regimen through bariatrics office which worked very well to control her pyrosis but pt requests an alternative. -Cont pantoprazole 40 BID -Resume pepcid 20 mg once daily at night time with this -Pt to call back in 1-2 weeks to review response. If minimal response may switch her to a PCAB - Avoid trigger foods #Anemia Likely 2/2 epistaxis x 4-5 episodes in the last 2 months. Now established with ENT for mgmt. Iron deficiency has worsened. Will clarify how/where pt is going to get her venofer- she had initially canceled her iron infusions appt arranged by our office. Follow up 4 months. Medications: New famotidine 20 mg PO BEDTIME 90 tabs 0RF Discontinued sucralfate Discontinued Reason: Patient no longer taking 10 mL PO BID 600 mL 2RF K 21.9 - Gastro-esophageal reflux disease without esophagitis, K44.9 - Diaphragmatic hernia without obstruction or gangrene Coding Level of Care Code Est Pt Level 4 (36015) Diagnoses GERD (gastroesophageal reflux disease) K21.9 Hemorrhoids K64.9 Epistaxis R04.0 Hiatal hernia K44.9 Osteoporosis M81.0 Anemia D64.9
[2024-10-14 12:35] VITALS: BP 114/57; PULSE 93; O2SAT 74; BMI 25.2
--- OUTSIDE RECORDS SUMMARY | 2024-10-14 14:39 | XMS_ITS | Encounter Summary ---
Author Organization [employer] Address [address] [place] [address] 7 [place] [address] Care Team Providers Care Delivery Coordinator Name Role Phone Name, Eddie GILMORE Primary Care Provider [phone] Reason for Visit * Reason Onset Date Comments Active Med List 06/28/2023 Encounter Details Date Type Department Care Team ([facility] st Contact Info) Description 06/28/[address] [facility] [address] [place], [place] [phone] Name, MD Eddie [address] [place] [address] Active Med List Social History Tobacco Use [...] Be requesting a updated active medication list mortgage underwriter did attempt to transfer to Medical records so that she can obtain this information but they kept transferring back to the call center. [facility] [address], [place], [place] [phone] documented in this encounter Plan of Treatment Upcoming Encounters Date Type Department Care Team (Late st Contact Info) Description 10/29/2024 2:30 PM EDT Office Visit [facility] [address] [place] [address] Name, MD Eddie [address] [place] [address] 11/12/2024 9:45 AM EDT Office Visit [facility] [address] [place] [address] documented as of this encounter Visit Diagnoses Not on filedocumented in this encounter Additional Health Concerns Assessment Noted Time PHQ-9 Depression Total Score: 10 023 1:16 PM EDT documented as of this encounter Care Teams Delivery Coordinator Relationship Specialty Start Date End Date Name, MD Eddie [address] [place] [address] PCP - General Family Medicine 09/16/15 [place] [facility] 07/01/24 documented as of this encounter
--- OUTSIDE RECORDS SUMMARY | 2024-10-14 14:39 | XMS_ITS | Encounter Summary ---
Author Organization [employer] Address [address] [place] [address] 7 [place] [address] Care Team Providers Care Publisher Assistant Name Role Phone Name, Eddie GILMORE Primary Care Provider [phone] Reason for Visit * Reason Onset Date Comments Medication Question 09/05/2023 Encounter Details Date Type Department Care Team ([facility] st Contact Info) Description 09/05/2023 Telephone [facility] [address] [place], [place] [phone] Name, MD Eddie [address] [place] [address] Medication Question Social History Tobacco Use Types [...] EDT Office Visit [facility] [address] [place] [address] Name, MD Eddie [address] [place] [address] 11/12/2024 9:45 AM EDT Office Visit [facility] [address] [place] [address] documented as of this encounter Visit Diagnoses Not on filedocumented in this encounter Additional Health Concerns Assessment Noted Time PHQ-9 Depression Total Score: 10 11/28/ 023 1:16 PM EDT documented as of this encounter Care Teams Publisher Assistant Relationship Specialty Start Date End Date Name, MD Eddie [address] [place] [address] PCP - General Family Medicine 09/16/15 [facility] 07/01/24 documented as of this encounter
--- OUTSIDE RECORDS SUMMARY | 2024-10-14 14:39 | XMS_ITS | Encounter Summary ---
Author Organization [employer] Address [address] [place] [address] 7 [place] [address] Care Team Providers Care Oss Architect Name Role Phone Name, Eddie GILMORE Primary Care Provider [phone] Reason for Visit * Reason Onset Date Comments Referral 02/02/2023 Back dated refer ral Encounter Details Date Type Department Care Team ([facility] st Contact Info) Description 02/02/2023 Telephone [facility] [address] [place], [place] [phone] Name, MD Eddie [address] [place] [address] Referral (Back dated referral ) Social History [...] 1:40 PM EDT Tc from Kasie at [facility] requesting status on message below regarding referral. Fax number [phone]. Any questions please call [phone] * Telephone Encounter - Amber Roger RN - 02/03/2023 10:34 AM EDT Please review message below regarding backdated referral for these dates * Telephone Encounter - Laure Mcgill - 02/02/2023 2:07 PM EDT Tc from Kasie at [facility] calling in regards to referral needing to be back dated. Patient was seen at the office on 01/03/23 and 01/11/23. Fax number [phone]. Any questions please call [phone]. documented in this encounter Plan of Treatment Upcoming Encounters Date Type Department Care Team (Late st Contact Info) Description 10/29/2024 2:30 PM EDT Office Visit [address] [address] Name, MD Eddie [address] [place] [address] 11/12/2024 9:45 AM EDT Office Visit [address] [address] documented as of this encounter Visit Diagnoses Not on filedocumented in this encounter Additional Health Concerns Assessment Noted Time PHQ-9 Depression Total Score: 10 023 1:16 PM EDT documented as of this encounter Care Teams Oss Architect Relationship Specialty Start Date End Date Name, MD Eddie [address] [place] [address] PCP - General Family Medicine 09/16/15 [place] [facility] 07/01/24 documented as of this encounter
--- OUTSIDE RECORDS SUMMARY | 2024-10-14 14:39 | XMS_ITS | Encounter Summary ---
Author Organization [facility] [employer] Address [address] [place] [address] 7 [place] [address] Care Team Providers Care Professor Of Chemistry Name Role Phone NameEddie MD Primary Care Provider [phone] Reason for Visit * Reason Comments Med Refill Encounter Details Date Type Department Care Team (Late Contact Info) Description 02/26/2023 Refill [facility] [address] [place] [address] [phone] NameEdide MD [address] [place] [phone] Chronic pain syndrome Social History Tobacco Use [...] Description 10/29/2024 2:30 PM EDT Office Visit [facility] [address] [place] [address] [phone] Eddie Marshall MD [address] [place] [phone] 11/12/2024 9:45 AM EDT Office Visit [facility] [address] [place] [address] documented as of this encounter Visit Diagnoses Diagnosis Chronic pain syndrome documented in this encounter Additional Health Concerns Assessment Noted Time PHQ-9 Depression Total Score: 10 023 1:16 PM EDT documented as of this encounter Care Teams Professor Of Chemistry Relationship Specialty Start Date End Date Name, MD Eddie [address] [place] [address] PCP - General Family Medicine 09/16/15 Jerica A 07/01/24 documented as of this encounter
--- OUTSIDE RECORDS SUMMARY | 2024-10-14 14:39 | XMS_ITS | Encounter Summary ---
Author Organization [employer] Address [address] [place] [address] 7 [place] [address] Care Team Providers Care Roustabout Supervisor Name Role Phone Name, Eddie GILMORE Primary Care Provider [phone] Reason for Visit * Reason Comments Med Refill Encounter Details Date Type Department Care Team (Late st Contact Info) Description 06/18/2023 Refill [facility] [address] [place], [place] [phone] Name, MD Eddie [address] [place], [place] [phone] Chronic pain syndrome Social History Tobacco Use [...] Description 10/29/2024 2:30 PM EDT Office Visit [address] [address] NameEddie MD [address] [place] [phone] 11/12/2024 9:45 AM EDT Office Visit [address] [address] documented as of this encounter Visit Diagnoses Diagnosis Chronic pain syndrome documented in this encounter Additional Health Concerns Assessment Noted Time PHQ-9 Depression Total Score: 10 023 1:16 PM EDT documented as of this encounter Care Teams Roustabout Supervisor Relationship Specialty Start Date End Date NameEddie MD [address] [place] [phone] PCP - General Family Medicine 09/16/15 Jerica VNA 07/01/24 documented as of this encounter
--- OUTSIDE RECORDS SUMMARY | 2024-10-14 14:39 | XMS_ITS | Data Portability ---
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 [email or web address] Not available 09/06/2024 14:24:44 10/11/2024 10/11/2024 Nasal examination today did not identify a prominent bleeding source to better explain their history of epistaxis. Recommend medical management with saline nasal spray 3 times daily, K-Y jelly or other saline gel at night, and bedside cool mist humidifier. Discussed how to apply these products and the importance of not using Q-tips or other products in the nose. For episodes of bleeding, patient was taught how to appropriately hold pressure and how and when to utilize Afrin. A clamp was provided for home use. Return to office as needed or go to emergency room if severe episodes. [email or web address] Not available 10/11/2024 16:06:21 Plan of Treatment Reminders Order Date Submit Date Provider Last Modified By Organization Details Last Modified Time Details Appointments Establish ed 15 2024 01:00P Alexx WILSON PA-C Not available Not available Not available Lab None recorded. Referral None recorded. Procedures None recorded. Surgeries None recorded. Imaging None recorded. Medication Orders None recorded. Patient TargetsNo targets recorded. Patient InstructionsNo instructions recorded. Reason for Referral None Reported. Problems Name Problem SNOMED Code Status Onset Date Resolution Date Notes Provider Name and Address Organization Details Recorded Time Essential hypertens ion 47116925 Active 2014 Essential (primary) hypertensi on; Note: Date Diagnosed: 05/07/2015 9:43 AM (I10) Not Available [facility] 4 02:37:47 Bleeding from nose 797807209 Active 2014 Epistaxis; Note: Date Diagnosed: 05/07/2015 9:43 AM (R04.0) Not Available [facility] 4 02:37:50 Anterior epistaxis 689684092 Active 2024 YANIV GARCIA MD [address] [place] [address], [phone] , [facility] 5 12:32:29 Problem Notes None recorded. Procedures Surgical History Date Name Laterality Status Provider Name and Address Organization Details Recorded Time Epistaxis Simple Nasal Cautery Right completed YANIV GARCIA MD [address] [place] [address], [phone], [facility] 08/11/2024 12:31:38 Imaging Results None recorded. Procedure Notes None recorded. Medical Equipment None Reported. Allergies Allergen ID Allergen Name Allergen Category Reaction Reaction Severity Criticality Documentation Date Start Date Code Code System Note Provider Name and Address Organization Details Recorded Time 098235 scallop allergeni c extract food Not available Not available Not available 10/11/2024 55098 6 RxNorm Rosa Motyka rosalino [place] [facility] 5 15:45:20 99690 atorvasta tin medicatio n other Not available Not available 10/31/2023 85477 RxNorm Rosa Motyka rosalino [facility] 5 15:45:20 Medications Name Sig Start Date Stop Date [...] Not Available Not Available No t Available Stool Softener 100 mg capsule TAKE 1 CAPSULE BY MOUTH EVERY MORNING active Not Available Not Available No t Available oxybutyni n chloride ER 10 mg tablet,ex tended release 24 hr 08/09 completed Medicati on ID: [id number] D uration Value: 90 Brand Name: oxybutyn in chloride Send Method: E-Prescr ibed Sub s Allowed: subs OK Speci al Instruct ion: TAKE 1 TABLET BY MOUTH EVERY DAY Medi cationGe nericNam e: oxybutyn in chloride Not Available Not Available Not Available Patanol 0.1 % eye drops 08/09 completed Medicati on ID: [id number] B rand Name: Patanol Send Method: E-Prescr ibed Sub s Allowed: subs OK Medic ationGen ericName : Patanol Not Available Not Available Not Available sucralfat e 100 mg/mL oral suspensio n TAKE 10 ML TWICE DAILY active Not Available Not Available No t Available famotidin e 40 mg tablet TAKE [...] layed release 08/09 completed Medicati on ID: [id number] B rand Name: aspirin Send Method: E-Prescr ibed Sub s Allowed: subs OK Medic ationGen ericName : aspirin Not Available Not Available Not Available tramadol 50 mg tablet 10/11 completed Medicati on ID: [id number] D uration Value: 28 Brand Name: tramadol Send Method: E-Prescr ibed Sub s Allowed: subs OK Speci al Instruct ion: TAKE 1 TABLET BY MOUTH EVERY 8 HOURS NEEDED FOR PAIN Med icationG enericNa me: tramadol Not Available Not Available Not Available nortripty line 25 mg capsule 08/09 completed Medicati on ID: [id number] D uration Value: 90 Brand Name: nortript yline Se nd Method: E-Prescr ibed Sub s Allowed: subs OK Speci al Instruct ion: TAKE 3 CAPSULES BY MOUTH AT BEDTIME Medicati onGeneri cName: nortript yline Not Available Not Available Not Available levothyro xine 100 mcg tablet 08/09 completed Medicati on ID: [id number] D uration Value: 90 Brand Name: levothyr oxine Se nd Method: E-Prescr ibed Sub s Allowed: subs OK Speci al Instruct ion: TAKE 1 TABLET BY MOUTH EVERY DAY Medi cationGe nericNam e: levothyr oxine Not Available Not Available Not Available oxycodone -acetamin ophen 5 mg-325 mg tablet 1 tablet 3 times a day by oral route. 2024 active Not Available Not Available Not Avai lable betametha sone valerate 0.1 % topical cream APPLY A THIN LAYER TO AFFECTED AREA(S) ONCE DAILY active Not Available Not Available No t Available pantopraz ole 40 mg tablet,de layed release TAKE 1 TABLET BY MOUTH TWICE DAILY IN THE MORNING AND IN THE EVENING active Not Available Not Available No t Available omeprazol e 20 mg capsule,d elayed release 10/11 completed Medicati on ID: [id number] D uration Value: 90 Brand Name: omeprazo le Send Method: E-Prescr ibed Sub s Allowed: subs OK Speci al Instruct ion: TAKE 2 CAPSULES BY MOUTH DAILY. M edicatio nGeneric Name: omeprazo le Not Available Not Available [...] propionat e 50 mcg/actua tion nasal spray,tawny alvarez 10/11 completed Medicati on ID: [id number] D uration Value: 30 Brand Name: fluticas one Send Method: E-Prescr ibed Sub s Allowed: subs OK Speci al Instruct ion: SPRAY 2 SPRAYS INTO EACH NOSTRIL DAILY Me dication GenericN delmi: fluticas one Not Available Not Available Not Available loratadin e 10 mg tablet 08/09 completed Medicati on ID: [id number] D uration Value: 30 Brand Name: loratadi [...] 500 mg tablet active Medicati on ID: [id number] B rand Name: Tylenol Extra Strength Send [...] Not Available Not Available No t Available Advair HFA 230 mcg-21 mcg/actua tion aerosol inhaler INHALE 2 PUFFS BY MOUTH EVERY TWELVE HOURS active Not Available Not Available No t [...] Updated DateTime 09/06/2024 157.48 cm 25.4 kg/m2 95545.34 g KELLY SKELTON [place] [facility] 09/06/2024 13:28:14 Date Recorded Body height Body mass index (BMI) Body weight Provider Name and Address Organization Details Last Updated DateTime 10/11/2024 157.48 cm 25.4 kg/m2 12498.34 g Rosa Tello [place] [facility] 10/11/2024 15:45:16 Social History None recorded. Functional Status None recorded. Mental Status None recorded. Family History Nothing Reported. Medical History Condition Response Diabetes Y Heart Problems Y Bleeding Disorder N Food Allergy Y Arthritis Y Emphysema Y Migraines Y Thyroid Problems Y Stroke Y Asthma Y Glaucoma Y COPD Y Nasal or Sinus Problems Y Anemia Y GERD/Reflux Y High Cholesterol Y Heart Attack ([place]) Y Headaches Y Fibromyalgia Y Hypertension Y Gynecological HistoryNo gynecological history recorded. Obstetrics History GPAL:G 0 P 0 0 0 0 Past Encounters Encounter ID Performer Location Encounter Start Date Encounter Closed Date Diagnosis/Indication Diagnosis SNOMED-CT Code Diagnosis ICD10 Code Diagnosis Note [id number] YANIV GARCIA MD [facility] [address] [place] [address] 08/09/2024 09:39:15 08/09/2024 11:07:17 Anterior epistaxis 513968457 R04.0 78-year-ol d female with a history [...] for cautery on the left. Essential hypertension 15673789 I10 Long-term current use of antiplatelet drug 9313238591 22448 Z79.02 [id number] YANIV GARCIA MD [facility] [address] [address] 09/06/2024 13:16:33 09/06/2024 13:54:17 Anterior epistaxis 473472070 R04.0 Bleeding from nose 59707 6005 R04.0 Essential hypertension 04762965 I10 [id number] AURORA SAMS MD [facility] [address] [address] 10/11/2024 15:10:24 10/11/2024 16:03:50 Anterior epistaxis 538819391 R04.0 Health Concerns Section Related Observation LastModified by Organization Detai ls LastModified Time None Recorded Concern Status LastModified by Organization Details LastModified Time None Recorded Advance Directives Directive None Recorded Payers Encounter Date Sequence Insurance Name Policy Number Policy [employer]ap[employer] Covered Member ID Zapata Member ID Guarantor Name 08/09/2024 1 [facility] (MEDICAID HMO) Celeste Abad [id number] Celeste Abad 09/06/2024 1 [facility] (MEDICAID HMO) Celeste Abad [id number] Celeste Abad 10/11/2024 1 [facility] (MEDICAID HMO) Celeste Abad [id number] Celeste Abad Notes Date Note Type Note [...] to stop them YANIV GARCIA MD [address] [facility],[address], [address], [place] [facility] 08/11/2024 12:36:32 09/06/2024 text/html 78yo female with hypertension on clopidogrel presents for reevaluation of right recurrent nosebleeds. Right septum cauterized 08/09/[address] Garcia. Patient reports persistent recurrent right-sided nasal bleeding every couple days. Most recent episode 3 days ago, managed quickly with nasal cease. She is in the process of scheduling iron transfusions through [facility]. She was recently diagnosed with emphysema. She continues to touch the nose frequently. YANIV GARCIA MD [address] [facility],[address], [place], [address], [place] [facility] [place] 09/06/2024 17:25:55 10/11/2024 text/html 78 year old fema kanchan presents for evaluation of the nose. She reports epistaxis up to several times per week. Always from the right. Can be very high volume. Can persist for hours. Had nasal pack placed at [facility] 09/26. For prevention, she applies saline gel with a Q-tip multiple times per day. When she bleeds she packs the nose with hemostat. AURORA SHAH MD [address] [place] [address], [place], [phone], [facility] 10/11/2024 16:14:56 OBGyn Episode No OBEpisode recorded.
--- OUTSIDE RECORDS SUMMARY | 2024-10-14 14:39 | XMS_ITS | Clinical Summary ---
Author Organization [employer] Address [address] [place] [address] 7[address] [place] [address] Care Team Providers Care Convalescent Sitter Name Role Phone Name, Eddie GILMORE Primary Care Provider [phone] Allergies Active Allergy Reactions Criticality Noted Date [...] 06/01/20 22 Active Blood Glucose Monitoring Suppl (Algolytics Verio Flex System) w/Device kit USE DIRECTED [...] in the morning. 01/10/20 23 Active Lancets (Gre[employer]ip Softwareuch Delica Plus [id number]) miscIndications :Controlled type 2 diabetes mellitus with complication, without long-term current use of insulin ([facility]) USE TO CHECK BLOOD SUGAR TWICE A DAY 100 each 5 09/15/19 24 Active glucose blood (Gre[employer]ip Softwareuch Verio) test stripIndication s:Controlled type 2 diabetes mellitus with complication, without long-term current use of insulin ([facility]) CHECK BY FINGERSTICK TWICE DAILY 50 [...] 90 tablet 1 03/25/20 24 2024 Discontinued albuterol 108 (90 Base) [...] refer stat to ENT for cauterization, possible SODA COLUMN OPERATOR scope Recommend anterior nasal packing if she is bleeding 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 She understands this is the chronic [...] Type Department Care Team Description 10/03/2024 Refill [facility] [address] [place] [phone] NameEddie MD 10/03/2024 Telephone [facility] [address] [place] [phone] Eddie Marshall MD Med Refill 10/01/2024 Refill [facility] [address] [place] [address] Eddie Marshall MD Chronic pain syndrome 09/30/2024 2:30 PM EDT Office Visit [facility] [address] [place] [address] Hannah Paula NP Low hemoglobin (Primary Dx) 09/30/2024 Travel 09/30/2024 Orders Only GENERIC EXTERNAL DATA DEPARTMENT Provider, Generic External Data 09/28/2024 Orders Only GENERIC EXTERNAL DATA DEPARTMENT Provider, Generic External Data 09/27/2024 Telephone [facility] [address] [place] [address] Matilda Millan RN ED follow up 09/27/2024 Telephone [facility] [address] [place] [address] Eddie Marshall MD ER Follow-up 09/26/[address] [address] Eddie Marshall MD Durable Medical Equipment 09/24/[address] [address] Eddie Marshall MD Durable Medical Equipment (Hip protectors) 09/24/[address] [facility] [address] [place] [address] Eddie Marshall MD DME Transport Chair 09/20/2024 Orders Only [facility] External Provider, [facility] 09/19/[address] [address] Eddie Marshall MD Call Back Request 09/15/[address] [address] Eddie Marshall MD 09/11/[address] [address] Eddie Marshall MD Durable Medical Equipment 09/10/2024 9:45 AM EDT Office Visit [address] [address] Mckenzie Trent, [employer] Chronic pain syndrome (Primary Dx); halfway (current) use of opiate analgesic 09/10/2024 Travel 09/09/[address] [address] Eddie Marshall MD 09/05/2024 Refill [facility] [address] [place] [address] Eddie Marshall MD Chronic pain syndrome 08/27/2024 Orders Only GENERIC EXTERNAL DATA DEPARTMENT Provider, Generic External Data 08/26/2024 Orders Only [facility] External Provider, [facility] 08/19/2024 Refill [facility] [address] [place] [address] Eddie Marshall MD 08/14/2024 Orders Only GENERIC EXTERNAL DATA DEPARTMENT Provider, Generic External Data 08/13/2024 Telephone [facility] [place] [address] Eddie Marshall MD Appointment Request 08/09/2024 Telephone [facility] [place] [address] Frank Sophie [place] september recalls 08/09/2024 Telephone [facility] [address] Sophie Marie [place] september recalls 08/09/2024 Refill [facility] [place] [address] Eddie Marshall MD Chronic pain syndrome 08/02/2024 2:30 PM EST Office Visit [facility] [place] [address] Latanya Hoover MD Epistaxis (Primary Dx); Controlled type 2 diabetes mellitus with complication, without long-term current use of insulin ([facility]); Dietary counseling; Exercise counseling; Overweight; Anemia, unspecified type 08/02/2024 Travel 07/30/2024 Telephone [facility] [address] Eddie Marshall MD ER Follow-up 07/23/2024 9:00 AM EST Office Visit [facility] [place] [address] Kelly Montoya MD Chronic pain syndrome (Primary Dx) 07/23/2024 Travel 07/17/2024 Refill [facility] [place] [address] Eddie Marshall MD 07/16/2024 9:45 AM EST Office Visit [facility] [address] Mckenzie Trent FNP Chronic pain syndrome (Primary Dx); 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 07/16/2024 9:15 AM EST Office Visit [facility] [address] Kelly Montoya MD Chronic pain syndrome (Primary Dx) 07/16/2024 Orders Only [facility] External Provider, [facility] 07/16/2024 Travel from Last 3 Months Immunizations Name Administration Dates Next Due Influenza injectable quadriv alent IIV4 with preservative 04/07/2016 Influenza, IIV3, injectable 03/23/2015,1 ,03/08/2013,04/06,05/01/2008,04/19/2007,05/10/2006 ,03/15/2005 Novel [id number], preservative-free 05/22/2009 Pneumococcal Polysaccharide PPSV23 07/11/2013, TD [...] PM EDT Office Visit [facility] [address] [place] [address] Name, MD Eddie [address] [place] [address] 11/12/2024 9:45 AM EDT Office Visit [address] [phone] Health Maintenance Due Date Last Done Comments [...] 10/16/2024 10/17/2023, 10/17/2023, 10/17/2023, Additional history exists Diabetes: Urine Protein Screening 01/15/2025 01/16/2024, 09/14/2022 [...] Procedure Name Priority Date/Time Associated Diagnosis Comments CBC WITH AUTO DIFFERENTIAL Routine 10/04/2024 10:50 AM EDT Low hemoglobin PHOSPHATE ( PHOSPHORUS) Routine 09/30/2024 11:00 AM EDT OBSX1 Routine 09/28/2024 5:12 PM EDT BASIC METABOLIC PANEL Routine 09/28/2024 4:02 PM EDT PROTHROMBIN TIME-INR Routine 09/28/2024 4:02 PM EDT CBC WITH AUTO DIFFERENTIAL Routine 09/28/2024 4:02 PM EDT XR CHEST 2 VIEWS Routine 09/20/2024 10:1 2 AM EDT POCT ADRIAN-14 URINE DRUG SCREEN Routine 09/10/2024 1:29 PM EDT 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 pain 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 CT CHEST [...] complication, without long-term current use of insulin ([facility]) POCT GLUCOSE Routine 08/02/2024 2:14 PM EST [...] SCREEN Routine 07/16/2024 1:49 PM EST 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 LIPID PANEL, STANDARD Routine 01/16/2024 9:40 AM EDT Controlled type 2 diabetes mellitus with complication, without long-term current use of insulin ([facility]) ALBUMIN, RANDOM URINE W/CREATININE Routine 01/16/2024 9:35 AM EDT Primary hypertension HM DIABETES EYE EXAM Routine 05/16/2023 HEPATITIS PANEL, GENERAL Routine 11/18/2022 2:07 PM EDT Diarrhea, unspecified type from Last 3 Months or Most Recently Relevant to Health Maintenance Results * (ABNORMAL) CBC auto differential (10/04/2024 10:50 AM EDT) Only the most recent of3 resultswithin the time period is included. White Blood Count 8.9 4.8 - 10.8 X10*3/uL [facility] Red Blood Count 3.73(L) 4.20 - 5.50 X10*6/uL [facility] Hemoglobin 8.7(L) 12.0 - 16.0 g/dl [facility] Hematocrit 29.7(L) 37.0 - 47.0 % [facility] Mean Corpuscular Volume 79.6(L) 80.0 - 98.0 fL [facility] Mean Corpuscular Hemoglobin 23.3(L) 27.0 - 33.0 pg [facility] Mean Corpuscular HGB Conc 29.3(L) 31.0 - 35.0 g/dl [facility] Red Cell Distribution Width 20.4(H) 11.0 - 16.0 % [facility] Platelet Count 440(H) 160 - 400 X10*3/uL [facility] Mean Platelet Volume 9.9 9.4 - 12.3 fL [facility] Neutrophils Percent Auto 67.6 45 - 73 % [facility] Imm Gran Pct Auto 0.3 0.0 - 0.4 % [facility] Lymphocytes Percent Auto 20.0 20 - 40 % [facility] Monocytes Percent Auto 9.3 2 - 11 % [facility] Eosinophils Percent Auto 2.0 0 - 4 % [facility] Basophils Percent Auto 0.8 0 - 2 % [facility] NRBC Pct Auto 0.0 0.0 - 0.2 /100WBC [facility] Neutrophils Absolute Auto 6.0 2.0 - 8.3 x10*3/uL [facility] Imm Gran Abs Auto 0.03 0.00 - 0.03 X10*3/uL [facility] Lymphocytes Absolute Auto 1.8 1.2 - 4.9 X10*3/uL [facility] Monocytes Absolute Auto 0.8 0.1 - 1.2 X10*3/uL [facility] Eosinophils Absolute Auto 0.2 0.0 - 0.4 X10*3/uL [facility] Basophils Absolute Auto 0.1 0.0 - 0.2 X10*3/uL [facility] NRBC Abs Auto 0.000 0.0 - 0.012 X10*3/uL [facility] Blood Venous blood specimen / Unknown 10/04/2024 10:50 AM EDT 10/04/2024 1:14 PM EDT Hannah Villanuevarip SODA COLUMN OPERATOR LAB BLOOD ORDERABLES Final Resu lt Performing Organization Address [facility] Co de Phone Number [facility] [address] [place] [phone] * Phosphate (As Phosphorus) (09/30/2024 11:00 AM EDT) Only the most recent of2 resultswithin the time period is included. Pathologist [facility] Phosphorus 3.0 2.7 - 4.5 mg/dL [facility] 09/30/2024 11:0 0 AM EDT 09/30/2024 11:06 AM EDT Generic External Data Provider LAB BLOOD ORDERAB LES Final Result Performing Organization Address [facility] de Phone Number [facility] [address] [place] [phone] * OBSX1 (09/28/2024 5:12 PM EDT) Pathologist [facility] OBS1 NEGATIVE NEGATIVE [facility] 09/28/2024 5:12 PM EDT 09/28/2024 5:20 PM EDT Generic External Data Provider LAB BLOOD ORDERAB LES Final Result Performing Organization Address [facility] Co de Phone Number [facility] [address] [place] [phone] * Prothrombin Time-INR (09/28/2024 4:02 PM EDT) [facility] Prothrombin Time 11.6 10.9 - 12.4 SEC [facility] INTERNATIONAL NORM RATIO 1.0 0.9 - 1.1 [facility] Comment:INTERNATIONAL NORMAL IZED RATIO (INR) [...] Provider LAB BLOOD ORDERAB LES Final Result [facility] [address] [place] [address] [phone] * (ABNORMAL) Basic Metabolic Panel (09/28/2024 4:02 PM EDT) Only the most recent of2 resultswithin the time period is included. Sodium 138 135 - 145 mmol/L [facility] Potassium 4.2 3.3 - 5.1 mmol/L [facility] Chloride 104 96 - 108 mmol/L [facility] Carbon Dioxide 25 22 - 29 mmol/L [facility] Anion Gap 13 12 - 20 [facility] Urea Nitrogen (BUN) 21(H) 9 - 16 mg/dL [facility] Creatinine, Serum 0.66 0.5 - 1.4 mg/dL [facility] Creatinine Clr Calc Pharmacy 62.2 [facility] Comment:Provided height and weight: 157.48 cm,63 kg.eGFR (calculated from the MDRD study equation) and eCrCl(calculated from the Cockcroft-Gault equation) are based ondifferent parameters and may not yield comparable results.If eCrCl result is absurd, please check patient'sheight/weight. Estimated Glomerular Filt Rate >60 [facility] Comment:Chronic Kidney Disea se: Estimated GFR < 60 mL/min/1.74a6Ksewlp Kidney Disease: Estimated GFR < 15 mL/min/1.73m2 Glucose 131(H) 60 - 115 mg/dL [facility] Calcium 9.2 8.4 - 10.2 mg/dL [facility] 09/28/2024 4:02 PM EDT 09/28/2024 4:06 PM EDT us Generic External Data Provider LAB BLOOD ORDERAB LES Final Result [facility] [address] [place] [address] [phone] * XR Chest 2 Views (09/20/2024 10:12 AM EDT) Anatomical Region Laterality Modality Chest Radiographic Tanya ging 09/20/2024 10:1 2 AM EDT Narrative 09/20/2024 10:27 AM EDT ? [facility] ?[address] ?[place] [address] ?XRay Report ? Signed ? Patient: Celeste Abad ?MR#: [id number] ?? 4 ? : 1945 ?Acct:[id number] ? Age/Sex: 78 / F ?ADM Date: 09/20/24 ? Loc: HO.XRAY ? Attending Dr: Maria Esther Blum SODA COLUMN OPERATOR ? Ordering Physician: Maria Esther Blum NP ?? Date of Service: 09/20/24 ?? Procedure(s): XR chest 2V ?? Accession Number(s): [id number] ? cc: Eddie Marshall MD; Maria Esther Blum NP ? EXAMINATION: ??XR [...] DD/ 1012 ? TD/TT: 09/20/24 1017 ? Casing Wringer Operator: ? Procedure Note Donotchristianneinterpreter, Image - 09/20/[address] [address] XRay Report Signed Patient: Celeste AbadMR#: [id number] 4 : 1945cct:[id number] Age/Sex: 78 / FADM Date: 09/20/24 Loc: ZAHIDA Attending Dr: Maria Esther Blum NP Ordering Physician: Maria Esther Blum NP Date of Service: 09/20/24 Procedure(s): XR chest 2V Accession Number(s): [id number] cc: Joanna,Eddie GILMORE; Maria Esther Blum NP [...] 09/20/24 1024 DD/ 1012 TD/TT: 09/20/24 1017 Casing Wringer Operator: [facility] External Provider IMG XR PROCEDURES Final [...] Suarez [place] - 09/10/2024 1:30 PM EDT Lot:[id number] Exp: 02/06/2028 Mckenzie Trent [employer] POINT OF CARE TEST ENTER/EDIT ORDERABLES Final Result * CT Chest w/o Contrast (08/27/2024 2:12 PM EDT) Anatomical Region Laterality Modality Body, Chest Computed Tomogra phy 08/27/2024 2:12 PM EDT Narrative 08/27/2024 2:14 PM EDT ? [facility] ?[address] ?[place] [address] ? CT Scan Report ? Signed ? Patient: Jenniffer,Celeste ?MR#: [id number] ?? 4 ? : 1945 ?Acct:[id number] ? Age/Sex: 78 / F ?ADM Date: 03/10/25 ? Loc: HO.CT ? Attending Dr: Maria Esther Stucenski SODA COLUMN OPERATOR ? Ordering Physician: Maria Esther Blum NP ?? Date of Service: 08/26/24 ?? Procedure(s): CT chest wo IV con ?? Accession Number(s): [id number] ? cc: Name,Eddie GILMORE; Maria Esther Blum NP ? Report Number: ?? [id number]: Total DLP = ??208.00 mGy-cm ? CLINICAL [...] DD/ 1412 ? TD/TT: 08/27/24 1412 ? Casing Wringer Operator: ? Procedure Note Valerychristiannesunil, Image - 08/27/[address] [place] [address] [address] Scan Report Signed Patient: Ventura Abad#: [id number] 4 : 7Acct:[id number] Age/Sex: 78 / FADM Date: 08/26/24 Loc: HO.CT Attending Dr: Maria Esther Blum NP Ordering Physician: Maria Esther Blum NP Date of Service: 08/26/24 Procedure(s): CT chest wo IV con Accession Number(s): [id number] cc: Name,Eddie GILMORE; Maria Esther Blum NP Report Number: [id number]: Total DLP = 208.00 mGy-cm CLINICAL HISTORY: [...] 08/27/24 141 DD/ 141 TD/TT: 08/27/24 141 Casing Wringer Operator: [facility] External Provider IMG CT PROCEDURES Final Result * (ABNORMAL) Iron And Total Iron Binding Capacity (08/27/2024 1:25 PM EDT) [facility] Iron 14(L) 30 - 160 mcg/dL [facility] Total Iron Binding Capacity 295 228 - 428 mcg/dL [facility] Percent Iron Saturation 5(L) 15 - 50 % [facility] Unsaturated Iron Binding 281 ug/dL [facility] 08/27/2024 1:25 PM EDT 08/27/2024 1:25 PM EDT Generic External Data Provider LAB BLOOD ORDERAB LES Final Result [facility] [address] [place] [phone] * (ABNORMAL) CBC (08/27/2024 1:25 PM EDT) [facility] White Blood Count 9.0 4.8 - 10.8 X10*3/uL [facility] Red Blood Count 4.06(L) 4.20 - 5.50 X10*6/uL [facility] Hemoglobin 10.0(L) 12.0 - 16.0 g/dl [facility] Hematocrit 33.1(L) 37.0 - 47.0 % [facility] Mean Corpuscular Volume 81.5 80.0 - 98.0 fL [facility] Mean Corpuscular Hemoglobin 24.6(L) 27.0 - 33.0 pg [facility] Mean Corpuscular HGB Conc 30.2(L) 31.0 - 35.0 g/dl [facility] Red Cell Distribution Width 16.3(H) 11.0 - 16.0 % [facility] Platelet Count 393 160 - 400 X10*3/uL [facility] Mean Platelet Volume 9.4 9.4 - 12.3 fL [facility] NRBC Pct Auto 0.0 0.0 - 0.2 /100WBC [facility] NRBC Abs Auto 0.000 0.0 - 0.012 X10*3/uL [facility] 08/27/2024 1:25 PM EDT 08/27/2024 1:25 PM EDT us Generic External Data Provider LAB BLOOD ORDERAB LES Final Result Performing Organization Address [facility] Co de Phone Number [facility] [address] [place] [phone] * Ferritin (08/27/2024 1:25 PM EDT) Ferritin 35 10 - 250 ng/mL [facility] 08/27/2024 1:25 PM EDT 08/27/2024 1:25 PM EDT Generic External Data Provider LAB BLOOD ORDERAB LES Final Result Performing Organization Address [facility] [[email or web address]] de Phone Number [facility] [address] [place] [phone] * FL Esophagus Barium Swallow w/Air (08/14/2024 9:52 AM EST) Anatomical Region Laterality Modality Head, Neck Radiographic Tanya ging 08/14/2024 9:52 AM EST Narrative 08/15/2024 4:55 PM EST ? [facility] ?[address] [facility] ?[place] [address] ? Fluoroscopy Report ? Signed ? Patient: Jenniffer,Celeste ?MR#: [id number] ?? 4 ? : 1945 ?Acct:[id number] ? Age/Sex: 78 / F ?ADM Date: 02/26/25 ? Loc: HO.XRAY ? Attending Dr: Julia Li MD ? Ordering Physician: Julia Li MD ?? Date of Service: 08/14/24 ?? Procedure(s): FL barium swallow with air ?? Accession Number(s): [id number] ? cc: Name,Eddie GILMORE; Julia Li MD [...] DD/ 0952 ? TD/TT: 08/14/24 1020 ? Casing Wringer Operator: ? Procedure Note Geoff, Image - 08/15/2024 [place] [address] Fluoroscopy Report Signed Patient: Ventura Abad#: [id number] 4 : 7Acct:[id number] Age/Sex: 78 / FADM Date: 08/14/24 Loc: .XRAY Attending Dr: Julia Li MD Ordering Physician: Julia Li MD Date of Service: 08/14/24 Procedure(s): FL barium swallow with air Accession Number(s): [id number] cc: Eddie Marshall MD; Julia Li MD [...] by: Sagar Shore MD 08/15/2024 04:52 PM [facility] Dictated By: Devon Delvalle Signed By: <Electronically signed by Devon Delvalle in OV> 08/15/24 6632 <Electronically signed by Sagar Shore MD in OV> 08/15/24 9439 DD/ 0952 TD/TT: 08/14/24 1020 Casing Wringer Operator: us [facility] External Provider IMG FLU OROSCOPY PROCEDURES Final Result * Immunofixation (ALEXANDER), Urine (08/14/2024 9:41 AM EST) ALEXANDER Interpretation SEE NOTE H [facility] Comment:Normal pattern. No m onoclonal proteins detected.The supplier of the testing reagents for this assayhas changed. Detection of small monoclonal proteins mayvary by test system.THIS TEST WAS PERFORMED AT:[facility] [place] [phone] PAYNE MD 08/14/2024 9:41 AM EST 08/14/2024 10:39 AM EST Generic External Data Provider LAB URINE ORDERAB LES Final Result [facility] [address] [place] [phone] * (ABNORMAL) Protein, Total and Protein??Electrophoresis (08/14/2024 9:37 AM EST) Prot Elec - Total Protein 6.7 6.1 - 8.1 g/dL [facility] Prot Elec - Albumin 3.2(A) 3.8 - 4.8 g/dL [facility] Prot Elec - Alpha1 0.4(A) 0.2 - 0.3 g/dL [facility] Prot Elec - Alpha2 1.1(A) 0.5 - 0.9 g/dL [facility] Prot Elec - Beta 1 0.5 0.4 - 0.6 g/dL [facility] Prot Elec - Beta 2 0.5 0.2 - 0.5 g/dL [facility] Prot Elec - Gamma 1.0 0.8 - 1.7 g/dL [facility] PES - Abn Protein Band 1 [facility] PES-Abn Protein Band 2 [facility] PES-Abn Protein Band 3 [facility] Prot Elec - Interpretation SEE NOTE [facility] Comment:Evaluation is consis tent with an acute inflammatorypattern.THIS TEST WAS PERFORMED AT:[facility] [place] [phone] PAYNE MD 08/14/2024 9:37 AM EST 08/14/2024 9:41 AM EST Generic External Data Provider LAB BLOOD ORDERAB LES Final Result [facility] [address] [place] [address] [phone] * (ABNORMAL) POCT HGB A1C (08/02/2024 [...] EST Narrative 07/16/2024 7:07 PM EST ? [place] [facility] ?[address] ?[place] [address] ?XRay Report ? Signed ? Patient: Jenniffer,Celeste ?MR#: [id number] ?? 4 ? : 1945 ?Acct:[id number] ? Age/Sex: 78 / F ?ADM Date: 07/16/24 ? Loc: HO.ED ? Attending Dr: ? Ordering Physician: Rhea Ken ?? Date of Service: 07/16/24 ?? Procedure(s): XR KUB ?? Accession Number(s): [id number] ? cc: Rhea Ken; Name,Eddie GILMORE ? [...] ? DD/ 06 ? TD/TT: 07/16/241906 ? Casing Wringer Operator: ? Procedure Note Maxiter, Image - 07/16/[address] [address] XRay Report Signed Patient: Ventura Abad#: [id number] 4 : 7Acct:[id number] Age/Sex: 78 / FADM Date: 07/16/24 Loc: HO.ED Attending Dr: Ordering Physician: Rhea Ken Date of Service: 07/16/24 Procedure(s): XR KUB Accession Number(s): [id number] cc: Rhea Ken; Name,Eddie GILMORE CLINICAL HISTORY: [...] in OV> 07/16/241906 DD/ 06 TD/TT: 07/16/241906 Casing Wringer Operator: [facility] External Provider IMG XR PROCEDURES Final Result * SARS-CoV-2 RNA, Influenza A/B, and RSV RNA, Ql NAAT (07/16/2024 7:06 PM EST) Influenza A PCR NEGATIVE Negative [facility] Influenza B PCR NEGATIVE Negative [facility] Resp Syncy Virus RNA Qual PCR NEGATIVE Negative [facility] SARS COV2 PCR NEGATIVE Negative [facility] Comment:All test results mus t [...] use by authorized laboratories.Testing performed on the [employer] GeneXpert utilizingreal-time RT-PCR.All SARS CoV2 and positive influenza A/B results arereported to [facility]. 07/16/2024 7:06 PM EST 07/16/2024 7:11 PM EST Generic External Data Provider LAB MICROBIOLOGY - GENERAL ORDERABLES Final Result Performing Organization Address City/[facility]/ZIP Co de Phone Number [facility] [address] [place] [phone] * Magnesium (07/16/2024 7:06 PM EST) Magnesium 2.2 1.6 - 2.6 mg/dL [facility] 07/16/2024 7:06 PM EST 07/16/2024 7:11 PM EST Generic External Data Provider LAB BLOOD ORDERAB LES Final Result Performing Organization Address [facility]/ZIP Co de Phone Number [facility] [address] [place] [phone] [phone] * Lipase (07/16/2024 7:06 PM EST) Lipase 8 8 - 78 U/L [facility] 07/16/2024 7:06 PM EST 07/16/2024 7:11 PM EST Generic External Data Provider LAB BLOOD ORDERAB LES Final Result Performing Organization Address [facility] Co de Phone Number [facility] [address] [place] [address] [phone] * (ABNORMAL) Hepatic Function Panel (07/16/2024 7:06 PM EST) Pathologist [facility] Bilirubin, Total 0.4 0.0 - 1.0 mg/dL [facility] Bilirubin, Direct 0.2 0.0 - 0.5 mg/dL [facility] Aspartate Amino Transferase 37(H) 5 - 31 U/L [facility] Alanine Aminotransferase 27 0 - 31 U/L [facility] Total Protein 7.5 6.5 - 8.0 g/dL [facility] Albumin Level 3.9 3.5 - 5.0 g/dL [facility] Alkaline Phosphatase 136(H) 39 - 117 U/L [facility] 07/16/2024 7:06 PM EST 07/16/2024 7:11 PM EST Generic External Data Provider LAB BLOOD ORDERAB LES Final Result Performing Organization Address [facility]/ZIP Co de Phone Number [facility] [address] [place] [phone] * (ABNORMAL) Lipid Panel, Standard (01/16/2024 9:40 AM EDT) Triglycerides 199(H) <150 mg/dL [facility] Comment:Desirable Triglyceri de: less than 150 mg/dLBorderline High Triglyceride 150-199 mg/dLHigh Triglyceride: 200-499 mg/dLVery High Triglyceride: greater than or equal to 5OO mg/dL Cholesterol 150 <200 mg/dL [facility] Comment:Desirable Cholestero l: less than 200 mg/dLBorderline High Cholesterol: 200-239 mg/dLHigh Cholesterol: greater than 239 mg/dL LDL Cholesterol Calculated 63 <100 mg/dL [facility] Comment:Desirable LDL: less than 100 [...] ORDERABLES Final Resul t Performing Organization Address City/[facility] Co de Phone Number [facility] [address] [place] [phone] * Albumin, Random Urine W/Creatinine (01/16/2024 9:35 AM EDT) Creatinine, Urine 27.62 mg/dL [facility] Microalbumin Urine <5.0 mg/L [facility] Microalbum Creatinine Ratio Ur TNP <30 ug/mg cr [facility] Comment:Unable to calculate albumin/creatinine ratio due to lowmicroalbumin or creatinine result. Urine (Urine, Random) 01/16/2024 9:35 AM EDT 01/16/2024 11:12 AM EDT us Eddie Marshall MD LAB URINE ORDERABLES Final Resul t Performing Organization Address City/[facility]/ZIP Co de Phone Number [facility] [address] [place] [phone] * Hm Diabetes Eye Exam (05/16/2023) Eye Exam Normal Normal us Eddie Marshall MD HEALTH MAINTENANCE Final Result * (ABNORMAL) Hepatitis Panel, General (11/18/2022 2:07 PM EDT) Hepatitis A Antibody Total REACTIVE( A) NON-REACT NAHID [email or web address] [place] [employer] Comment: For additional information, please refer to http://[email or web address]/faq/QKJ129 (This link is being provided for informational/ educational purposes only.) Hepatitis B Surface Antibody QL NON-REACT NAHID NON-REACT NAHIDTuniu [place] [employer] Hepatitis B Surface Ag NON-REACT NAHID NON-REACT NAHID [email or web address] [place] [employer] Hepatitis B Core Antibody Total NON-REACT NAHID NON-REACT NAHIDTuniu [place] [employer] Hepatitis C Antibody NON-REACT NAHID NON-REACT NAHID [email or web address] [place] [employer] 0.07 <1.00 [employer] Comment: HCV antibody was non-reactive. There is no laboratory evidence of HCV infection. In most cases, no further action is required. However, if recent HCV exposure is suspected, a test for HCV RNA (test code 64006) is suggested. For additional information please refer to http://[employer]/faq/SCG85z0 (This link is being provided for informational/ educational purposes only.) 11/18/2022 2:07 PM EDT 11/18/2022 2:09 PM EDT Narrative [facility] - 11/19/2022 6:51 AM EDT COLLECTION KIT GIVEN TO PATIENT. PATIENT ADVISED TO RETURN. us Mckenzie RODRIGUEZ LAB BLOOD ORDERABLES Final Res ult [facility] [address], [place] [address] [email or web address] [place] [employer] [address] [place] [address] from Last 3 Months or Most Recently Relevant to Health Maintenance Insurance WILBUR MÁRQUEZ NATACHA [employer] Care Teams Convalescent Sitter Relationship Specialty Start Date End Date Name, MD Eddie [address] [place] [address] PCP - General Family Medicine 09/[facility]
--- OUTSIDE RECORDS SUMMARY | 2024-10-14 14:39 | XMS_ITS | Encounter Summary ---
Author Organization [employer] Address [address] [place] [address] 7 [place] [address] Care Team Providers Care Sample Grinder Name Role Phone Name, Eddie GILMORE Primary Care Provider [phone] Reason for Visit * Reason Onset Date Comments Medication Question 09/01/2023 Encounter Details Date Type Department Care Team ([facility] st Contact Info) Description 09/01/2023 Telephone [facility] 230 [place], [place] [phone] Name, MD Eddie 230 [place] [address] Medication Question Social History Tobacco Use Types [...] an add on. Please contact pharmacy at [phone]. documented in this encounter Plan of Treatment Upcoming Encounters Date Type Department Care Team (Late st Contact Info) Description 10/29/2024 2:30 PM EDT Office Visit [facility] [place] [address] Name, [place] [address] 11/12/2024 9:45 AM EDT Office Visit [facility] [place] [address] documented as of this encounter Visit Diagnoses Not on filedocumented in this encounter Additional Health Concerns Assessment Noted Time PHQ-9 Depression Total Score: 10 023 1:16 PM EDT documented as of this encounter Care Teams Sample Grinder Relationship Specialty Start Date End Date Name, [place] [address] PCP - General Family Medicine 09/16/15 [place] A 07/01/24 documented as of this encounter
--- OUTSIDE RECORDS SUMMARY | 2024-10-14 14:39 | XMS_ITS | Encounter Summary ---
Author Organization [employer] Address [address] [place] [address] [place] [address] Care Team Providers Care Leasing Assistant Name Role Phone Name, Eddie GILMORE Primary Care Provider [phone] Reason for Visit * Reason Onset Date Comments Hospital Follow-up 11/10/2022 Encounter Details Date Type Department Care Team (Late st Contact Info) Description 11/10/2022 Refill [facility] 230 [place], [place] [phone] Name, MD Eddie 230 [place] [address] Social History Tobacco Use Types Packs/Day Years [...] Jackman Sent: 11/21/2022 5:23 PM EDT To: [facility] Team Nurses Hi team! Sent this pt to the ED over the weekend for Hgb 7. Got admitted and looks like recently discharged. Can you please outreach her for status check and sched HDF w/ Name? Thank you!! * Telephone Encounter - Suzette Singh RN - 11/22/2022 11:10 AM EDT T/C to [phone] to schedule HDF apt. No answer. LVM to call back on [phone]. ----- Message from Amber Roger RN sent at 11/22/2022 9:06 AM EDT ----- ----- Message ----- From: DENIS Jackman Sent: 11/21/2022 5:23 PM EDT To: [facility] Team Nurses Ne team! Sent [...] Description 10/29/2024 2:30 PM EDT Office Visit [facility] [address] [place] [phone] Eddie Marshall MD [address] [place] [address] 11/12/2024 9:45 AM EDT Office Visit [address] [address] documented as of this encounter Visit Diagnoses Not on filedocumented in this encounter Care Teams Leasing Assistant Relationship Specialty Start Date End Date Eddie Marshall MD [address] [place] [address] PCP - General Family Medicine 09/16/15 [place] [facility] 07/01/24 documented as of this encounter
--- OUTSIDE RECORDS SUMMARY | 2024-10-14 14:39 | XMS_ITS | Encounter Summary ---
Author Organization [employer] Address [address] [place] [address] 7 [place] [address] Care Team Providers Care Candy Wrapping Machine Operator Name Role Phone Name, Eddie GILMORE Primary Care Provider [phone] Reason for Visit * Reason Comments Med Refill Encounter Details Date Type Department Care Team (Late st Contact Info) Description 05/08/2023 Refill [facility] [address] [place], [place] [phone] Name, MD Eddie 230 [place], [place] [phone] Chronic pain syndrome Social History Tobacco Use [...] 10/29/2024 2:30 PM EDT Office Visit [address] [address] NameEddie MD [address] [place] [address] 11/12/2024 9:45 AM EDT Office Visit [address] [address] documented as of this encounter Visit Diagnoses Diagnosis Chronic pain syndrome documented in this encounter Additional Health Concerns Assessment Noted Time PHQ-9 Depression Total Score: 10 023 1:16 PM EDT documented as of this encounter Care Teams Candy Wrapping Machine Operator Relationship Specialty Start Date End Date NameEddie MD [address] [place] [address] PCP - General Family Medicine 09/16/15 [facility] 07/01/24 documented as of this encounter
--- OUTSIDE RECORDS SUMMARY | 2024-10-14 14:39 | XMS_ITS | Encounter Summary ---
Author Organization [employer] Address [address] [place] [address] 7 [place] [address] Care Team Providers Care College Or University Department Head Name Role Phone Name, Eddie GILMORE Primary Care Provider [phone] Reason for Visit * Reason Comments Med Refill Encounter Details Date Type Department Care Team (Late Contact Info) Description 12/01/2022 Refill [facility] 230 [place], [place] [phone] Name, MD Eddie 230 [place] [address] Controlled type 2 diabetes mellitus with complication, without long-term current use of insulin ([facility]) Social History Tobacco Use [...] PM EDT Office Visit [facility] [place] [address] Name, MD Eddie [facility] [place] [address] 11/12/2024 9:45 AM EDT Office Visit [facility] [place] [address] documented as of this encounter Visit Diagnoses Diagnosis Controlled type 2 diabetes mellitus with complication, without long-term current use of insulin ([facility]) documented in this encounter Additional Health Concerns Assessment Noted Time PHQ-9 Depression Total Score: 10 023 1:16 PM EDT documented as of this encounter Care Teams College Or University Department Head Relationship Specialty Start Date End Date Name, [place] [address] PCP - General Family Medicine 09/16/15 [facility] 07/01/24 documented as of this encounter
--- OUTSIDE RECORDS SUMMARY | 2024-10-14 14:39 | XMS_ITS | Encounter Summary ---
Author Organization [employer] Address [address] [place] [address] 7 [place] [address] Care Team Providers Care Foreclosure Clerk Name Role Phone Name, Eddie GILMORE Primary Care Provider [phone] Reason for Visit * Reason Comments Med Refill Encounter Details Date Type Department Care Team (Late Contact Info) Description 01/04/2023 Refill [facility] [address] [place] [address] [phone] Name, MD Eddie 230 [place] [address] Gastroesophageal reflux disease, unspecified whether esophagitis present [...] PM EDT Office Visit [facility] [address] [place] [address] Name, [place] [address] 11/12/2024 9:45 AM EDT Office Visit [facility] [address] documented as of this encounter Visit Diagnoses Diagnosis Gastroesophageal reflux disease, unspecified whether esophagitis present documented in this encounter Additional Health Concerns Assessment Noted Time PHQ-9 Depression Total Score: 10 023 1:16 PM EDT documented as of this encounter Care Teams Foreclosure Clerk Relationship Specialty Start Date End Date Name, [place] [address] PCP - General Family Medicine 09/16/15 [facility] 07/01/24 documented as of this encounter
--- OUTSIDE RECORDS SUMMARY | 2024-10-14 14:39 | XMS_ITS | Encounter Summary ---
Author Organization [employer] Address [address] [place] [address] 7 [place] [address] Care Team Providers Care Preparation Supervisor Canning Name Role Phone Name, Eddie GILMORE Primary Care Provider [phone] Reason for Visit * Reason Onset Date Comments ER Follow-up 09/27/2024 Encounter Details Date Type Department Care Team ([facility] st Contact Info) Description 09/27/2024 Telephone [facility] 230 [place], [place] [phone] Name, MD Eddie 230 [place] [address] ER Follow-up Social History Tobacco Use Types [...] ED visit on : Date: 09/26/24 Hospital: [facility] Seen for: Nose bleeds Symptomatic yes . [...] 10/29/2024 2:30 PM EDT Office Visit [facility] [address] [place] [address] Eddie Marshall MD 230 [place] [address] 11/12/2024 9:45 AM EDT Office Visit [facility] [address] [place] [address] documented as of this encounter Visit Diagnoses Not on filedocumented in this encounter Additional Health Concerns Assessment Noted Time PHQ-9 Depression Total Score: 9 05/10/20 24 11:56 AM EST documented as of this encounter Care Teams Preparation Supervisor Canning Relationship Specialty Start Date End Date Eddie Marshall MD 230 [facility] [place] [address] PCP - General Family Medicine 09/16/15 [facility] 07/01/24 documented as of this encounter
--- OUTSIDE RECORDS SUMMARY | 2024-10-14 14:39 | XMS_ITS | Encounter Summary ---
Author Organization [facility] [employer] Address [address] [place] [address] 7 [place] [address] Care Team Providers Care Cartographic Designer Name Role Phone Name, Eddie GILMORE Primary Care Provider [phone] Encounter Details Date Type Department Care Team ([facility] Contact Info) Description 11/18/[address] [facility] [address] [place] [address] [phone] Name, MD Eddie [address] [place] [address] [phone] Social History Tobacco Use Types Packs/Day Years [...] Upcoming Encounters Date Type Department Care Team ([facility] Contact Info) Description 10/29/2024 2:30 PM EDT Office Visit [facility] [address] [place] [address] Name, MD Eddie [address] [place] [address] [phone] 11/12/2024 9:45 AM EDT Office Visit [facility] 230 [place] [address] documented as of this encounter Visit Diagnoses Not on filedocumented in this encounter Care Teams Cartographic Designer Relationship Specialty Start Date End Date Name, MD Eddie 230 [place] [address] PCP - General Family Medicine 09/16/15 [facility] A 07/01/24 documented as of this encounter
--- OUTSIDE RECORDS SUMMARY | 2024-10-14 14:39 | XMS_ITS | Encounter Summary ---
Author Organization [employer] Address [address] [place] [address] [place] [address] Care Team Providers Care Smoke Room Operator Name Role Phone Name, Eddie GILMORE Primary Care Provider [phone] Reason for Visit * Reason Comments Med Refill Encounter Details Date Type Department Care Team (Late st Contact Info) Description 01/29/2023 Refill [facility] [address] [place] [phone] Farhana Singh FNP [address] [place] [address] [place] [address] Social History Tobacco Use Types Packs/Day Years [...] EDT Office Visit [facility] [address] [place] [address] [phone] Name, MD Eddie [address] [place] [address] [phone] 11/12/2024 9:45 AM EDT Office Visit [facility] 230 [facility] [address] documented as of this encounter Visit Diagnoses Not on filedocumented in this encounter Additional Health Concerns Assessment Noted Time PHQ-9 Depression Total Score: 10 11/28/ 023 1:16 PM EDT documented as of this encounter Care Teams Smoke Room Operator Relationship Specialty Start Date End Date Name, MD Eddie 230 [facility] [place] [address] PCP - General Family Medicine 09/16/15 [facility] 07/01/24 documented as of this encounter
--- OUTSIDE RECORDS SUMMARY | 2024-10-14 14:39 | XMS_ITS | Encounter Summary ---
Author Organization [employer] Address [address] [place] [address] 7t [place] [address] Care Team Providers Care Baker Biscuit Name Role Phone Name, Eddie GILMORE Primary Care Provider Encounter Details Date Type Department Care Team ([facility] st Contact Info) Description 12/07/2022 Telephone [facility] 230 [place], [place] [phone] Name, MD Eddie 230 [place] [address] Social History Tobacco Use Types Packs/Day Years [...] update PCP now. Ordering provider Pierce Pillai BUSINESS REPRESENTATIVE Follow with fredyn as indicated. Results faxed at time of call to [phone]. Ref.# [id number] C documented in this encounter Plan of Treatment Upcoming Encounters Date Type Department Care Team (Late st Contact Info) Description 10/29/2024 2:30 PM EDT Office Visit [facility] [address] [place] [phone] Name, MD Eddie [address] [place] [address] 11/12/2024 9:45 AM EDT Office Visit [address] [address] documented as of this encounter Visit Diagnoses Not on filedocumented in this encounter Additional Health Concerns Assessment Noted Time PHQ-9 Depression Total Score: 10 023 1:16 PM EDT documented as of this encounter Care Teams Baker Biscuit Relationship Specialty Start Date End Date Name, MD Eddie [address] [place] [address] PCP - General Family Medicine 09/16/15 [facility] 07/01/24 documented as of this encounter
== END 2024-10-14 13:20 | disposition home or self-care (01) ==
LOC: HO.HGI 12:17
PROVIDERS: PCP Internal Medicine Geriatric Medicine; Visit Provider Internal Medicine
DX: K21.9 Gastro-esophageal reflux disease without esophagitis (principal); K64.9 Unspecified hemorrhoids; R04.0 Epistaxis; K44.9 Diaphragmatic hernia without obstruction or gangrene; M81.0 Age-related osteoporosis without current pathological fracture; D64.9 Anemia, unspecified
CPT/HCPCS: 99214

== ENCOUNTER → 2024-10-14 12:16 | Outpatient (BNVA) | payer MEDICARE, SELFPAY | PROVIDERS: PCP Internal Medicine Geriatric Medicine; Visit Provider Internal Medicine | DX: K21.9 Gastro-esophageal reflux disease without esophagitis (principal); K44.9 Diaphragmatic hernia without obstruction or gangrene; K64.9 Unspecified hemorrhoids; R04.0 Epistaxis; M81.0 Age-related osteoporosis without current pathological fracture; D64.9 Anemia, unspecified | CPT/HCPCS: 99212 ==

== ENCOUNTER → 2024-11-04 10:18 | Outpatient (BNV) | payer MEDICARE, SELFPAY | PROVIDERS: PCP Internal Medicine Geriatric Medicine; Referring Provider Internal Medicine Geriatric Medicine; Visit Provider Nurse Practitioner Family | DX: D64.9 Anemia, unspecified (principal) | CPT/HCPCS: 99204 ==

== ENCOUNTER 2024-11-05 11:08 | Outpatient (REF) | payer MEDICARE, SELFPAY ==
[2024-11-05 11:29] LABS: Appearance Urine Cloudy; Color Urine Yellow; Glucose Urine UA Negative (Negative); Leukocyte Esterase Urine Moderate (2+) (Negative); Nitrite Urine Negative (Negative); PH 6.5 (5.0-9.0); Specific Gravity - Urine 1.015 (1.005-1.025); UMIC TRIGGER UACC YES; Urine Blood Negative (Negative); Urine Ketones Negative (Negative); Urine Protein Negative (Neg-Trace)
[2024-11-05 11:31] LABS: Bacteria Urine 4+ (None Seen); Hyaline Casts Urine 0-2 /LPF (0-2); RBC Urine 0-2 /HPF (0-2); UACC Culture Trigger YES; WBC Urine 21-50 /HPF (0-5)
--- OUTSIDE RECORDS SUMMARY | 2024-11-05 12:26 | XMS_ITS | Encounter Summary ---
Author Organization [employer] Address [address] [place] [address] 7 [place] [address] Care Team Providers Care Warning Analyst Name Role Phone Name, Eddie GILMORE Primary Care Provider [phone] Encounter Details Date Type Department Care Team ([facility] Contact Info) Description 11/18/2022 Abstract [facility] [address] [place] [address] [phone] Name, MD Eddie [address] [place] [address] [phone] Social History Tobacco Use Types Packs/Day Years [...] Upcoming Encounters Date Type Department Care Team ([facility] Contact Info) Description 11/12/2024 9:45 AM EDT Office Visit [address] [phone] documented as of this encounter Visit Diagnoses Not on filedocumented in this encounter Care Teams Warning Analyst Relationship Specialty Start Date End Date Name, MD Eddie 230 [facility] [place] [address] PCP - General Family Medicine 09/16/15 [facility] [facility] 07/01/24 documented as of this encounter
--- OUTSIDE RECORDS SUMMARY | 2024-11-05 12:26 | XMS_ITS | Encounter Summary ---
Author Organization [employer] Address [address] [place] [address] 7t [place] [address] Care Team Providers Care Automotive Mechanical Engineer Name Role Phone Name, Eddie GILMORE Primary Care Provider [phone] Reason for Visit * Reason Onset Date Comments Med Refill 11/04/2024 Encounter Details Date Type Department Care Team (Late st Contact Info) Description 11/04/2024 Refill [facility] 230 [place], [place] [phone] Name, MD Eddie 230 [place] [address] Chronic pain syndrome Social History Tobacco Use [...] housing situation today? I have abad bridges 10/29/[address] you li ve. Do you have problems with any of the following? Water leaks 10/29/2024 Food Insecurity Answer Date Recorded Within the [...] from getting things needed for daily living? Yes, it has kept me from non-medical meetings, work, or getting things that I need 10/29/2024 Utilities Answer Date Recorded In the past 12 months, has t he electric, gas, oil or water company threatened to shut off services in your home? No 02/05/2024 Depression Answer Date Recorded Patient Health Questionnaire-2 Score 2 05/10/2024 Internet Access Answer Date Recorded Internet Access Q1 Yes 10/29/2024 Internet Access Q2 I do not want or need it 10/17 Comments Unknown Sex and Gender Information Value Date Recorded Sex Assigned at Female 04/18/2022 10:29 AM EDT Legal Sex Female 10:29 AM EDT Gender Identity Female 04/18/2022 10:29 AM EDT Sexual Orientation Straight 04/18/2022 10 :29 AM EDT documented as of this encounter Miscellaneous Notes * Telephone Encounter - Coby Santiago RN - 11/04/2024 2:37 PM EDT [employer] checked by scientific technical writer on 11/04/24. Pt picked up a 28 day supply of oxyCODONE- acetaminophen (Percocet) 5-325 MG tablet on 10/08/24. Pt due for refill tomorrow 11/05/24. Medication pended to PCP with a starting date of 11/05/24 for review. Message forwarded to PCP to review and advise. * Telephone Encounter - Clari Moss - 11/04/2024 2:36 PM EDT TC from PT requesting med refill : oxyCODONE-acetaminophen (Percocet) 5-325 MG tablet To be sent too: [facility] [place] - 230 [facility] documented in this encounter Plan of Treatment Upcoming Encounters Date Type Department Care Team ([facility] st Contact Info) Description 11/12/2024 9:45 AM EDT Office Visit [facility] 230 [place] [address] documented as of this encounter Visit Diagnoses Diagnosis Chronic pain syndrome documented in this encounter Additional Health Concerns Assessment Noted Time PHQ-9 Depression Total Score: 9 05/10/20 24 11:56 AM EST documented as of this encounter Care Teams Automotive Mechanical Engineer Relationship Specialty Start Date End Date Name, MD Eddie [address] [place] [address] PCP - General Family Medicine 09/16/15 [facility] 07/01/24 documented as of this encounter
--- OUTSIDE RECORDS SUMMARY | 2024-11-05 12:26 | XMS_ITS | Encounter Summary ---
Author Organization [employer] Address [address] [place] [address] [place] [address] Care Team Providers Care Pipe Jeeper Name Role Phone Name, Eddie GILMORE Primary Care Provider [phone] Reason for Visit * Reason Onset Date Comments Hospital Follow-up 11/10/2022 Encounter Details Date Type Department Care Team ([facility] st Contact Info) Description 11/10/2022 Refill [facility] MEDICINE [address] [place] [address] [phone] Name, MD Eddie [address] [place] [address] Social History Tobacco Use Types Packs/Day Years [...] Jackman Sent: 11/21/2022 5:23 PM EDT To: [facility] Team Nurses Hi team! Sent this pt to the ED over the weekend for Hgb 7. Got admitted and looks like recently discharged. Can you please outreach her for status check and sched HDF w/ DrRod Name? Thank you!! * Telephone Encounter - Suzette Singh RN - 11/22/2022 11:10 AM EDT T/C to [phone] to schedule HDF apt. No answer. LVM to call back on [phone]. ----- Message from Amber Roger RN sent at 11/22/2022 9:06 AM EDT ----- ----- Message ----- From: DENIS Jackman Sent: 11/21/2022 5:23 PM EDT To: [facility] Team Nurses Hi team! Sent this pt to the ED over the weekend for Hgb 7. Got admitted and looks like recently discharged. Can you please outreach her for status check and sched HDF w/ DrRod Name? Thank you!! documented in this encounter Plan of Treatment Upcoming Encounters Date Type Department Care Team (Late st Contact Info) Description 11/12/2024 9:45 AM EDT Office Visit [facility] MEDICINE [address] [place] [address] documented as of this encounter Visit Diagnoses Not on filedocumented in this encounter Care Teams Pipe Jeeper Relationship Specialty Start Date End Date Name, MD Eddie [address] [place] [address] PCP - General Family Medicine 09/16/15 [facility] 07/01/24 documented as of this encounter
--- OUTSIDE RECORDS SUMMARY | 2024-11-05 12:26 | XMS_ITS | Encounter Summary ---
Author Organization [employer] Address [address] [place] [address] 7 [place] [address] Care Team Providers Care Scrap Drop Crane Operator Name Role Phone Name, Eddie GILMORE Primary Care Provider Reason for Visit * Reason Onset Date Comments Med Refill 11/01/2024 Encounter Details Date Type Department Care Team ([facility] st Contact Info) Description 11/01/2024 Telephone [facility] MEDICINE [address] [place], [place] [phone] Name, MD Eddie [address] [place] [address] Med Refill Social History Tobacco Use Types [...] Telephone Encounter - Coby Santiago RN - 11/05/2024 8:27 AM EDT Medication sent by PCP. Pt to follow up PRN. * Telephone Encounter - Jess Ring RN - 11/01/2024 1:18 PM EDT [facility] checked , rx Percocet last sold on on 10/08/24 with 84 tabs ( 28 days supply). Pt will not be due for refill until 11/05/24. Will re-task message for blue team nurses to pend to PCP on that day. * Telephone Encounter - Diana Cormier - 11/01/2024 1:07 PM EDT TC from PT requesting med refill : oxyCODONE-acetaminophen (Percocet) 5-325 MG tablet To be sent too: [facility] - [place], [place] - [address] [facility] documented in this encounter Plan of Treatment Upcoming Encounters Date Type Department Care Team (Late st Contact Info) Description 11/12/2024 9:45 AM EDT Office Visit [facility] MEDICINE [address] [facility] [place] [address] documented as of this encounter Visit Diagnoses Not on filedocumented in this encounter Additional Health Concerns Assessment Noted Time PHQ-9 Depression Total Score: 9 05/10/20 24 11:56 AM EST documented as of this encounter Care Teams Scrap Drop Crane Operator Relationship Specialty Start Date End Date Name, MD Eddie [address] [facility] [address] PCP - General Family Medicine 09/16/15 [facility] 07/01/24 documented as of this encounter
--- OUTSIDE RECORDS SUMMARY | 2024-11-05 12:26 | XMS_ITS | Encounter Summary ---
Author Organization [employer] Address [address] [place] [address] 7 [place] [address] Care Team Providers Care Business Editor Name Role Phone Name, Eddie GILMORE Primary Care Provider [phone] Encounter Details Date Type Department Care Team (Late st Contact Info) Description 11/05/2024 Orders Only GENERIC EXTERNAL DATA DEPARTMENT Provider, [...] 9:45 AM EDT Office Visit [facility] MEDICINE [address] [place] [address] documented as of this encounter Procedures Procedure Name Priority Date/Time Associated Diagnosis Comments URINALYSIS, COMPLETE, WITH REFLEX TO CULTURE Routine 11/05/2024 11:16 AM EDT documented in this encounter Results * (ABNORMAL) Urinalysis, Complete, with Reflex to Culture (11/05/2024 11:16 AM EDT) Color Urine Yellow [facility] Appearance Urine Cloudy [facility] PH 6.5 5.0 - 9.0 [facility] Glucose Urine UA Negative Negative mg/dL [facility] Urine Blood Negative Negative [facility] Specific [place] - Urine 1.015 1.005 - 1.025 [facility] Urine Protein Negative Neg-Trace mg/dL [facility] Urine Ketones Negative Negative mg/dL [facility] Nitrite Urine Negative Negative [facility] Leukocyte Esterase Urine Moderate (2+)(A) Negative [facility] RBC Urine 0-2 0 - 2 /HPF [facility] Urine WBC 21-50(A) 0 - 5 /HPF [facility] Urine Squamous Epithelial Cell 3-5 0 - 2 /HPF [facility] Urine Bacteria 4+ None Seen [facility] Hyaline Casts, Urine 0-2 0 - 2 /LPF [facility] 11/05/2024 11:1 6 AM EDT 11/05/2024 11:25 AM EDT Narrative [facility] - 11/05/2024 11:35 AM EDT Urine, Clean Catch us Generic External Data Provider LAB URINE ORDERAB LES Final Result Performing Organization Address City/State/[facility] Co de Phone Number [facility] [address] [place] [address] [phone] documented in this encounter Visit Diagnoses Not on filedocumented in this encounter Additional Health Concerns Assessment Noted Time PHQ-9 Depression Total Score: 9 05/10/20 24 11:56 AM EST documented as of this encounter Care Teams Business Editor Relationship Specialty Start Date End Date Name, MD Eddie [address] [place] [address] PCP - General Family Medicine 09/16/15 [facility] 07/01/24 documented as of this encounter
--- OUTSIDE RECORDS SUMMARY | 2024-11-05 12:26 | XMS_ITS | Encounter Summary ---
Author Organization [employer] Address [address] [place] [address] 7 [place] [address] Care Team Providers Care Tape Editor Name Role Phone Name, Eddie GILMORE Primary Care Provider [phone] Reason for Visit * Reason Onset Date Comments Call Back Request 11/04/2024 Encounter Details Date Type Department Care Team ([facility] st Contact Info) Description 11/04/2024 Telephone [facility] [address] [place], [place] [phone] Name, MD Eddie [address] [place] [address] Call Back Request Social History Tobacco Use [...] Telephone Encounter - Clari Moss - 11/04/2024 2:37 PM EDT Tc from pt son requesting a call back from nurses regarding tb screen referral and outdoor adventure instructor hours. [phone] documented in this encounter Plan of Treatment Upcoming Encounters Date Type Department Care Team (Late st Contact Info) Description 11/12/2024 9:45 AM EDT Office Visit [facility] [address] [place] [phone] Scheduled Orders Name Type Priority Associated Diagnoses Orde r Schedule T-SPOT??.TB Lab Routine Screening for tuberculosis Expected: 11/05/2024 (Approximate), Expires: 11/05/2025 documented as of this encounter Visit Diagnoses Diagnosis Screening for tuberculosis Screening examination for pulmonary tuberculosis documented in this encounter Additional Health Concerns Assessment Noted Time PHQ-9 Depression Total Score: 9 05/10/20 24 11:56 AM EST documented as of this encounter Care Teams Tape Editor Relationship Specialty Start Date End Date Name, MD Eddie [address] [place] [address] PCP - General Family Medicine 09/16/15 [facility] 07/01/24 documented as of this encounter
--- OUTSIDE RECORDS SUMMARY | 2024-11-05 12:26 | XMS_ITS | Encounter Summary ---
Author Organization [employer] Address [address] [place] [address] 7 [place] [address] Care Team Providers Care Creosoting Engineer Name Role Phone Name, Eddie GILMORE Primary Care Provider [phone] Reason for Visit * Reason Onset Date Comments Medication Question 09/01/2023 Encounter Details Date Type Department Care Team ([facility] st Contact Info) Description 09/01/2023 Telephone [facility] MEDICINE [address] [place], [place] [phone] Name, MD Eddie [address] [place] [address] Medication Question Social History Tobacco Use Types [...] an add on. Please contact pharmacy at [phone]. documented in this encounter Plan of Treatment Upcoming Encounters Date Type Department Care Team (Late st Contact Info) Description 11/12/2024 9:45 AM EDT Office Visit [facility] MEDICINE [address] [place] [address] documented as of this encounter Visit Diagnoses Not on filedocumented in this encounter Additional Health Concerns Assessment Noted Time PHQ-9 Depression Total Score: 10 023 1:16 PM EDT documented as of this encounter Care Teams Creosoting Engineer Relationship Specialty Start Date End Date Name, MD Eddie [address] [place] [address] PCP - General Family Medicine 09/16/15 [facility] 07/01/24 documented as of this encounter
--- OUTSIDE RECORDS SUMMARY | 2024-11-05 12:26 | XMS_ITS | Encounter Summary ---
Author Organization [email or web address] Address [address] [place] [address] 7 [place] [address] Care Team Providers Care Government Minister Name Role Phone Name, Eddie GILMORE Primary Care Provider [phone] Reason for Visit * Reason Comments Med Refill Encounter Details Date Type Department Care Team ([facility] st Contact Info) Description 06/18/2023 Refill [facility] MEDICINE [address] [place], [place] [phone] Name, MD Eddie [address] [place] [address] Chronic pain syndrome Social History Tobacco Use [...] 11/12/2024 9:45 AM EDT Office Visit [facility] MEDICINE [address] [place] [address] documented as of this encounter Visit Diagnoses Diagnosis Chronic pain syndrome documented in this encounter Additional Health Concerns Assessment Noted Time PHQ-9 Depression Total Score: 10 023 1:16 PM EDT documented as of this encounter Care Teams Government Minister Relationship Specialty Start Date End Date Name, MD Eddie [address] [place] [address] PCP - General Family [facility] documented as of this encounter
--- OUTSIDE RECORDS SUMMARY | 2024-11-05 12:26 | XMS_ITS | Clinical Summary ---
Author Organization [employer] Address [address] [place] [address] 7[address] [place] [address] Care Team Providers Care Market Development Analyst Name Role Phone Name, Eddie GILMORE Primary Care Provider [phone] Allergies Active Allergy Reactions Criticality Noted [...] 06/01/20 22 Active Blood Glucose Monitoring Suppl ([employer] Verio Flex System) w/Device kit USE DIRECTED [...] OTC 3 times daily 10/07/19 22 Active levETIRAcetam (Keppra) 750 MG tablet Take 1 tablet by mouth 2 times daily. 10/31/19 23 Active clopidogrel (Plavix) 75 MG tablet Take 75 mg by mouth in the morning. 01/10/20 23 Active Lancets (Find That FileTouch Delica Plus [id number]) miscIndications :Controlled type 2 diabetes mellitus with complication, without long-term current use of insulin ([facility]) USE TO CHECK BLOOD SUGAR TWICE A DAY 100 each 5 09/15/19 24 Active glucose blood (Find That FileTouch Verio) test stripIndication s:Controlled type 2 diabetes mellitus with complication, without long-term current use of insulin ([facility]) CHECK BY FINGERSTICK TWICE DAILY [...] day. Active cholecalciferol (Vitamin D-3) 50 MCG (1999 UT) tablet Take 2,000 Units by mouth [...] MORNING 30 tablet 5 07/17/19 25 Active metFORMIN (Glucophage) 500 MG tablet [...] TO 6 HOURS NEEDED 8.5 g 1 10/29/19 25 Active Advair HFA 230-21 MCG/ACT inhaler INHALE 2 PUFFS BY MOUTH EVERY TWELVE HOURS Active traZODone (Desyrel) 50 MG tablet Take 1 tablet (50 mg) by mouth at bedtime. 30 tablet 10/30/19 25 2024 Active oxyCODONE-aceta minophen (Percocet) 5-325 MG tabletIndicatio ns:Chronic pain syndrome Take 1 tablet by mouth every 8 (eight) hours if needed for severe pain for up to 28 days. Do not start before November 05, 2024. 84 tablet 11/06/19 25 2024 Active oral electrolytes replacement (Pedialyte) solution 10 ml po q 30 min prn vomiting or diarrhea 1000 mL 1 11/19/19 23 2024 Discontinued(T herapy completed) nitrofurantoin, macrocrystal-mo nohydrate, (Macrobid) 100 MG capsule Take 1 capsule by mouth 2 times daily. 02/13/20 24 2024 Discontinued(T herapy completed) albuterol 108 (90 Base) MCG/ACT inhaler INHALE 2 PUFFS BY MOUTH EVERY 4 TO 6 HOURS NEEDED 8.5 g 1 10/04/19 25 2024 Discontinued oxyCODONE-aceta minophen (Percocet) 5-325 MG tabletIndicatio ns:Chronic pain syndrome Take 1 tablet by mouth every 8 (eight) hours if needed for severe pain for up to 28 days. Do not start before October 08, 2024. 84 tablet 10/09/19 25 2024 Discontinued(R eorder (will not trigger notification to Pharmacy)) Active Problems Problem Noted Date Diagnosed Date Chronic obstructive pulmonary disease 10/29/2024 Overview (10/29/2024): emphysema Pulmonary nodules 10/29/2024 Atherosclerosis of superior mesenteric artery Epistaxis 08/02/2024 Assessment & Plan (08/02/2024 3:41 PM EST): Will refer stat to ENT for cauterization, possible JEWELRY STORE MANAGER scope Recommend anterior nasal packing if she is bleeding heavily detention (current) use of opiate analgesic 03/20 Overview (09/10/2024): Dx: chronic pain syndrome/back pain Rx: Percocet 5/325 every 8 hours Last SCRAPER MEAT agreement:03/22/24 Tier II (visit every 3 months) [...] that is chronic 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 She understands this is the chronic [...] Encounters Date Type Department Care Team Description 11/05/2024 Orders Only GENERIC EXTERNAL DATA DEPARTMENT Provider, Generic External Data 11/04/[address] [address] Eddie Marshall MD Call Back Request 11/04/2024 Refill [facility] [address] [place] [address] [phone] Eddie Marshall MD Chronic pain syndrome 11/01/2024 Telephone [facility] [address] [place] [phone] Eddie Marshall MD Med Refill 10/29/2024 2:30 PM EDT Office Visit [address] [address] Eddie Marshall MD Iron deficiency anemia due to chronic blood loss (Primary Dx); Chronic insomnia; Controlled type 2 diabetes mellitus with complication, without long-term current use of insulin ([facility]); Chronic obstructive pulmonary disease, unspecified COPD type ([facility]); Pulmonary nodules; Former smoker 10/29/2024 Travel 10/28/[address] [address] Eddie Marshall MD CHART PREP 10/27/[address] [address] Eddie Marshall MD 10/03/[address] [address] Eddie Marshall MD 10/03/[address] [address] Eddie Marshall MD Med Refill 10/01/2024 Refill [facility] [address] [place], [place] [phone] Eddie Marshall MD Chronic pain syndrome 09/30/2024 2:30 PM EDT Office Visit [address] [address] Hannah Paula NP Low hemoglobin (Primary Dx) 09/30/2024 Travel 09/30/2024 Orders Only GENERIC EXTERNAL DATA DEPARTMENT Provider, Generic External Data 09/28/2024 Orders Only GENERIC EXTERNAL DATA DEPARTMENT Provider, Generic External Data 09/27/2024 Telephone [facility] [address] [place] [phone] Matilda Millan, STATUARY PAINTER follow up 09/27/[address] [address] Eddie Marshall MD ER Follow-up 09/26/[address] [address] Eddie Marshall MD Durable Medical Equipment 09/24/[address] [phone] Eddie Marshall MD Durable Medical Equipment (Hip protectors) 09/24/2024 Telephone [facility] [address] [place], [place] [phone] Eddie Marshall MD DME Transport Chair 09/20/2024 Orders Only [facility] External Provider, [facility] 09/19/2024 Telephone [facility] [address] [place] [address] Eddie Marshall MD Call Back Request 09/15/2024 Refill [facility] [address] [place] [address] Eddie Marshall MD 09/11/2024 Telephone [facility] [address] [place] [address] Eddie Marshall MD Durable Medical Equipment 09/10/2024 9:45 AM EDT Office Visit [facility] [place] [address] Mckenzie Trent FNP Chronic pain syndrome (Primary Dx); detention (current) use of opiate analgesic 09/10/2024 Travel 09/09/2024 Telephone [facility] [place] [address] Eddie Marshall MD 09/05/2024 Refill [facility] [place] [address] Eddie Marshall MD Chronic pain syndrome 08/27/2024 Orders Only GENERIC EXTERNAL DATA DEPARTMENT Provider, Generic External Data 08/26/2024 Orders Only [facility] External Provider, [facility] 08/19/2024 Refill [facility] [place] [address] Eddie Marshall MD 08/14/2024 Orders Only GENERIC EXTERNAL DATA DEPARTMENT Provider, Generic External Data 08/13/2024 Telephone [facility] [address] [place] [address] Eddie Marshall MD Appointment Request 08/09/2024 Telephone [facility] [address] [facility] [place] [address] Sophie Marie MA september recalls 08/09/2024 Telephone [facility] [address] [place] [address] Sophie Marie MA september recalls 08/09/2024 Refill [facility] [address] [place] [address] Eddie Marshall, MD Chronic pain syndrome from Last 3 Months Immunizations Immunization Administration Dates Next Due Influenza injectable quadriv alent IIV4 with preservative 04/07/2016 Influenza, IIV3, injectable 03/23/2015,1 ,03/08/2013,04/06,05/01/2008,04/19/2007,05/10/2006 ,03/15/2005 Novel [id number], preservative-free 05/22/2009 Pneumococcal Polysaccharide PPSV23 07/11/2013, TD [...] Sign Reading Time Taken Comments Blood Pressure 127/70 10/29/2024 2:25 PM EDT Pulse 100 10/29/2024 2:25 PM EDT Temperature 36.8 ??C (98.2 ??F) 10/29/2024 2:25 PM ED T Respiratory Rate 25 10/29/2024 2:25 PM EDT Oxygen Saturation 92% 10/29/2024 2:25 PM EDT Inhaled Oxygen Concentration - - Weight 62.6 kg (138 lb) 10/29/2024 2:25 PM EDT Height 154.9 cm (5' 1 ) 10/29/2024 2:25 PM EDT Body Mass Index 26.07 10/29/2024 2:25 PM EDT Plan of Treatment Upcoming Encounters Date Type Department Care Team (Late st Contact Info) Description 11/12/2024 9:45 AM EDT Office Visit [facility] [address] [place] [phone] Health Maintenance Due Date Last Done Comments [...] 09/14/2022 Lipid Panel 01/15/2025 01/16/2024, 08/18, 03/18/2020 Alcohol/Substance Use Screening 02/04/2025 02/05/2024 Diabetes: Hemoglobin A1C 05/01/2025 025, 08/02/2024, 02/05/2024, Additional history exists Depression Screening 05/10/2025 05/10/2024, 05/10/20 24 Eye Exam 05/16/2025 05/16/2023 SDOH Screening 10/29/2025 10/29/2024 Tobacco Screening 10/29/2025 10/29/2024 Hepatitis C Screening Completed 11/18/2022 HIB Vaccines [...] patient's age to complete this topic Meningococcal B Vaccine Aged Out No l onger eligible based on patient's age to complete [...] TO CULTURE Routine 11/05/2024 11:16 AM EDT POCT GLYCATED HEMOGLOBIN, TOTAL Routine 10/29/2024 2:29 PM EDT Controlled type 2 diabetes mellitus with complication, without long-term current use of insulin ([facility]) POCT GLUCOSE Routine 10/29/2024 2:27 PM EDT Controlled type 2 diabetes mellitus with complication, without long-term current use of insulin ([facility]) CBC WITH AUTO DIFFERENTIAL Routine 10/04/2024 10:50 [...] 09/10/2024 1:29 PM EDT Chronic pain syndrome detention (current) use of opiate analgesic CT CHEST [...] ( PHOSPHORUS) Routine 08/14/2024 9:37 AM EST LIPID PANEL, STANDARD Routine 01/16/2024 9:40 AM EDT Controlled type 2 diabetes mellitus with complication, without long-term current use of insulin ([facility]) ALBUMIN, RANDOM URINE W/CREATININE Routine 01/16/2024 9:35 AM EDT Primary hypertension HM DIABETES EYE EXAM Routine 05/16/2023 HEPATITIS PANEL, GENERAL Routine 11/18/2022 2:07 PM EDT Diarrhea, unspecified type from Last 3 Months or Most Recently Relevant to Health Maintenance Results * (ABNORMAL) Urinalysis, Complete, with Reflex to Culture (11/05/2024 11:16 AM EDT) Color Urine Yellow [facility] Appearance Urine Cloudy [facility] PH 6.5 5.0 - 9.0 [facility] Glucose Urine UA Negative Negative mg/dL [facility] Urine Blood Negative Negative [facility] Specific [place] - Urine 1.015 1.005 - 1.025 [facility] Urine Protein Negative Neg-Trace mg/dL [facility] Urine Ketones Negative Negative mg/dL [facility] Nitrite Urine Negative Negative [facility] Leukocyte Esterase Urine Moderate (2+)(A) Negative [facility] RBC Urine 0-2 0 - 2 /HPF [facility] Urine WBC 21-50(A) 0 - 5 /HPF [facility] Urine Squamous Epithelial Cell 3-5 0 - 2 /HPF [facility] Urine Bacteria 4+ None Seen [facility] Hyaline Casts, Urine 0-2 0 - 2 /LPF [facility] 11/05/2024 11:1 6 AM EDT 11/05/2024 11:25 AM EDT Narrative [facility] - 11/05/2024 11:35 AM EDT Urine, Clean Catch us Generic External Data Provider LAB URINE ORDERAB LES Final Result Performing Organization Address [facility]/State/ZIP Co de Phone Number [facility] [address] [place] [address] [phone] * POCT HGB A1C (10/29/2024 2:29 PM EDT) Pathologist [facility] Hemoglobin A1C 5.4 4.0 - 6.0 % QC Media Lot # [id number] Lot# Expiration Date Blood 10/29/2024 2:29 PM EDT Eddie Name POINT OF CARE TEST ENTER/EDIT OR DERABLES Final Result * POCT Glucose (10/29/2024 2:27 PM EDT) Pathologist [facility] Glucose Blood, POC 122 60 - 200 mg/dL QC Media Lot # [id number] Lot# Expiration Date 100,72 Blood Capillary blood specimen / Unknown 10/29/2024 2:27 PM EDT us Eddie Name POINT OF CARE TEST ENTER/EDIT OR DERABLES Final Result * (ABNORMAL) CBC auto differential (10/04/2024 10:50 AM EDT) Only the most recent of2 resultswithin the time period is included. [facility] White Blood Count 8.9 4.8 - 10.8 X10*3/uL [facility] Red Blood Count 3.73(L) 4.20 - 5.50 X10*6/uL [facility] Hemoglobin 8.7(L) 12.0 - 16.0 g/dl [facility] Hematocrit 29.7(L) 37.0 - 47.0 % [facility] Mean Corpuscular Volume 79.6(L) 80.0 - 98.0 fL [facility] Mean Corpuscular Hemoglobin 23.3(L) 27.0 - 33.0 pg [facility] Mean Corpuscular HGB Conc 29.3(L) 31.0 - 35.0 g/dl [facility] Red Cell Distribution Width 20.4(H) 11.0 - 16.0 % [facility] Platelet Count 440(H) 160 - 400 X10*3/uL [facility] Mean Platelet Volume 9.9 9.4 - 12.3 fL [facility] Neutrophils Percent Auto 67.6 45 - 73 % [facility] Imm Gran Pct Auto 0.3 0.0 - 0.4 % [facility] Lymphocytes Percent Auto 20.0 20 - 40 % [facility] Monocytes Percent Auto 9.3 2 - 11 % [facility] Eosinophils Percent Auto 2.0 0 - 4 % [facility] Basophils Percent Auto 0.8 0 - 2 % [facility] NRBC Pct Auto 0.0 0.0 - 0.2 /100WBC [facility] Neutrophils Absolute Auto 6.0 2.0 - 8.3 x10*3/uL [facility] Imm Gran Abs Auto 0.03 0.00 - 0.03 X10*3/uL [facility] Lymphocytes Absolute Auto 1.8 1.2 - 4.9 X10*3/uL [facility] Monocytes Absolute Auto 0.8 0.1 - 1.2 X10*3/uL [facility] Eosinophils Absolute Auto 0.2 0.0 - 0.4 X10*3/uL [facility] Basophils Absolute Auto 0.1 0.0 - 0.2 X10*3/uL [facility] NRBC Abs Auto 0.000 0.0 - 0.012 X10*3/uL [facility] Blood Venous blood specimen / Unknown 10/04/2024 10:50 AM EDT 10/04/2024 1:14 PM EDT us Hannah Paula NP LAB BLOOD ORDERABLES Final Resu lt [facility] [address] [place] [address] [phone] * Phosphate (As Phosphorus) (09/30/2024 11:00 AM EDT) Only the most recent of2 resultswithin the time period is included. Phosphorus 3.0 2.7 - 4.5 mg/dL [facility] 09/30/2024 11:0 0 AM EDT 09/30/2024 11:06 AM EDT Generic External Data Provider LAB BLOOD ORDERAB LES Final Result Performing Organization Address [facility] de Phone Number [facility] [address] [place] [phone] * OBSX1 (09/28/2024 5:12 PM EDT) Pathologist [facility] OBS1 NEGATIVE NEGATIVE [facility] 09/28/2024 5:12 PM EDT 09/28/2024 5:20 PM EDT Generic External Data Provider LAB BLOOD ORDERAB LES Final Result Performing Organization Address [facility] de Phone Number [facility] [address] [place] [phone] * Prothrombin Time-INR (09/28/2024 4:02 PM EDT) [facility] Prothrombin Time 11.6 10.9 - 12.4 SEC [facility] INTERNATIONAL NORM RATIO 1.0 0.9 - 1.1 [facility] Comment:INTERNATIONAL NORMAL IZED RATIO (INR) [...] 4:02 PM EDT 09/28/2024 4:06 PM EDT Generic External Data Provider LAB BLOOD ORDERAB LES Final Result Performing Organization Address City/[facility]/ZIP Co de Phone Number [facility] [address] [place] [address] [phone] * (ABNORMAL) Basic Metabolic Panel (09/28/2024 4:02 PM EDT) Sodium 138 135 - 145 mmol/L [facility] Potassium 4.2 3.3 - 5.1 mmol/L [facility] Chloride 104 96 - 108 mmol/L [facility] Carbon Dioxide 25 22 - 29 mmol/L [facility] Anion Gap 13 12 - 20 [facility] Urea Nitrogen (BUN) 21(H) 9 - 16 mg/dL [facility] Creatinine, Serum 0.66 0.5 - 1.4 mg/dL [facility] Creatinine Clr Calc Pharmacy 62.2 [facility] Comment:Provided height and weight: 157.48 cm,63 kg.eGFR (calculated from the MDRD study equation) and eCrCl(calculated from the Cockcroft-Gault equation) are based ondifferent parameters and may not yield comparable results.If eCrCl result is absurd, please check patient'sheight/weight. Estimated Glomerular Filt Rate >60 [facility] Comment:Chronic Kidney Disea se: Estimated GFR < 60 mL/min/1.94h5Ajwrch Kidney Disease: Estimated GFR < 15 mL/min/1.73m2 Glucose 131(H) 60 - 115 mg/dL [facility] Calcium 9.2 8.4 - 10.2 mg/dL [facility] 09/28/2024 4:02 PM EDT 09/28/2024 4:06 PM EDT Generic External Data Provider LAB BLOOD ORDERAB LES Final Result Performing Organization Address City/[facility]/ZIP Co de Phone Number [facility] [address] [place] [phone] * XR Chest 2 Views (09/20/2024 10:12 AM EDT) Anatomical Region Laterality Modality Chest Radiographic Tanya ging 09/20/2024 10:1 2 AM EDT Narrative 09/20/2024 10:27 AM EDT ? [facility] ?[address] ?[place] [address] ?XRay Report ? Signed ? Patient: Celeste Abad ?MR#: [id number] ?? 4 ? : 1945 ?Acct:[id number] ? Age/Sex: 78 / F ?ADM Date: 09/20/24 ? Loc: HO.XRAY ? Attending Dr: Maria Esther Blum JEWELRY STORE MANAGER ? Ordering Physician: Maria Esther Blum NP ?? Date of Service: 09/20/24 ?? Procedure(s): XR chest 2V ?? Accession Number(s): [id number] ? cc: Name,Eddie GILMORE; Maria Esther Blum [...] DD/ 1012 ? TD/TT: 09/20/24 1017 ? Erp Pm: ? Procedure Note Sahil Tellez - 09/20/2024 [facility] [address] [address] XRay Report Signed Patient: Celeste AbadMR#: [id number] 4 : 7Acct:[id number] Age/Sex: 78 / FADM Date: 09/20/24 Loc: HO.XRAY Attending Dr: Maria Esther Blum NP Ordering Physician: Maria Esther Blum NP Date of Service: 09/20/24 Procedure(s): XR chest 2V Accession Number(s): [id number] cc: Name,Eddie GILMORE; Maria Esther Blum NP [...] 09/20/24 1024 DD/ 1012 TD/TT: 09/20/24 1017 Erp Pm: [facility] External Provider IMG XR PROCEDURES Final Result * POCT ADRIAN-14 Urine Drug Screen (09/10/2024 1:29 PM EDT) THC Negative Cocaine Screen, Urine Negative Opiate [...] / Unknown 09/10/2024 1:29 PM EDT Narrative [facility]ulyOSKAR - 09/10/2024 1:30 PM EDT Lot:[id number] Exp: 02/06/2028 us Mckenzie Trent CONTROL SPECIALIST POINT OF CARE TEST ENTER/EDIT ORDERABLES Final Result * CT Chest w/o Contrast (08/27/2024 2:12 PM EDT) Anatomical Region Laterality Modality Body, Chest Computed Tomogra phy 08/27/2024 2:12 PM EDT Narrative 08/27/2024 2:14 PM EDT ? [facility] ?[address] ?[place] [address] ? CT Scan Report ? Signed ? Patient: Celeste Abad ?MR#: [id number] ?? 4 ? : 1945 ?Acct:[id number] ? Age/Sex: 78 / F ?ADM Date: 08/26/24 ? Loc: HO.CT ? Attending Dr: Maria Esther Blum JEWELRY STORE MANAGER ? Ordering Physician: Maria Esther Blum NP ?? Date of Service: 08/26/24 ?? Procedure(s): CT chest wo IV con ?? Accession Number(s): [id number] ? cc: Name,Eddie GILMORE; Maria Esther Blum NP ? Report Number: ?? [id number]: Total DLP = ??208.00 mGy-cm ? CLINICAL HISTORY: J43.9 - Emphysema, unspecified ? CT chest without contrast ? Comparison: CR - CHEST 2 - 11/14/17 19:22 EDT ? Findings: ?? [...] DD/ 1412 ? TD/TT: 08/27/24 1412 ? Erp Pm: ? Procedure Note Donotuseinterpreter, Image - 08/27/[address] [address] CT Scan Report Signed Patient: Ceelste AbadMR#: [id number] 4 : 1945cct:[id number] Age/Sex: 78 / FADM Date: 08/26/24 Loc: HO.CT Attending Dr: Maria Esther Blum NP Ordering Physician: Maria Esther Blum NP Date of Service: 08/26/24 Procedure(s): CT chest wo IV con Accession Number(s): [id number] cc: Eddie Marshall MD; Maria Esther Blum NP Report Number: [id number]: Total DLP = 208.00 mGy-cm CLINICAL HISTORY: [...] 08/27/24 1413 DD/ 1412 TD/TT: 08/27/24 1412 Erp Pm: us [facility] External Provider IMG CT PROCEDURES Final Result * (ABNORMAL) Iron And Total Iron Binding Capacity (08/27/2024 1:25 PM EDT) Iron 14(L) 30 - 160 mcg/dL [facility] Total Iron Binding Capacity 295 228 - 428 mcg/dL [facility] Percent Iron Saturation 5(L) 15 - 50 % [facility] Unsaturated Iron Binding 281 ug/dL [facility] 08/27/2024 1:25 PM EDT 08/27/2024 1:25 PM EDT us Generic External Data Provider LAB BLOOD ORDERAB LES Final Result Performing Organization Address City/[facility]/ZIP Co de Phone Number [facility] [address] [place] [phone] * (ABNORMAL) CBC (08/27/2024 1:25 PM EDT) White Blood Count 9.0 4.8 - 10.8 X10*3/uL [facility] Red Blood Count 4.06(L) 4.20 - 5.50 X10*6/uL [facility] Hemoglobin 10.0(L) 12.0 - 16.0 g/dl [facility] Hematocrit 33.1(L) 37.0 - 47.0 % [facility] Mean Corpuscular Volume 81.5 80.0 - 98.0 fL [facility] Mean Corpuscular Hemoglobin 24.6(L) 27.0 - 33.0 pg [facility] Mean Corpuscular HGB Conc 30.2(L) 31.0 - 35.0 g/dl [facility] Red Cell Distribution Width 16.3(H) 11.0 - 16.0 % [facility] Platelet Count 393 160 - 400 X10*3/uL [facility] Mean Platelet Volume 9.4 9.4 - 12.3 fL [facility] NRBC Pct Auto 0.0 0.0 - 0.2 /100WBC [facility] NRBC Abs Auto 0.000 0.0 - 0.012 X10*3/uL [facility] 08/27/2024 1:25 PM EDT 08/27/2024 1:25 PM EDT us Generic External Data Provider LAB BLOOD ORDERAB LES Final Result Performing Organization Address City/[facility]/ZIP Co de Phone Number [facility] [address] [place] [address] [phone] * Ferritin (08/27/2024 1:25 PM EDT) Ferritin 35 10 - 250 ng/mL [facility] 08/27/2024 1:25 PM EDT 08/27/2024 1:25 PM EDT us Generic External Data Provider LAB BLOOD ORDERAB LES Final Result Performing Organization Address [facility] de Phone Number [facility] [address] [place] [address] [phone] * FL Esophagus Barium Swallow w/Air (08/14/2024 9:52 AM EST) Anatomical Region Laterality Modality Head, Neck Radiographic Tanya ging 08/14/2024 9:52 AM EST Narrative 08/15/2024 4:55 PM EST ? [facility] ?[address] ?[place] [address] ? Fluoroscopy Report ? Signed ? Patient: Celeste Abad ?MR#: [id number] ?? 4 ? : 1945 ?Acct:[id number] ? Age/Sex: 78 / F ?ADM Date: 08/14/24 ? Loc: HO.XRAY ? Attending Dr: Julia Li MD ? Ordering Physician: Julia Li MD ?? Date of Service: 08/14/24 ?? Procedure(s): FL barium swallow with air ?? Accession Number(s): [id number] ? cc: Eddie Marshall MD; Julia Li [...] DD/ 0952 ? TD/TT: 08/14/24 1020 ? Erp Pm: ? Procedure Note Donotuseinterpreter, Image - 08/15/[address] [address] Fluoroscopy Report Signed Patient: Celeste AbadMR#: [id number] 4 : 7Acct:[id number] Age/Sex: 78 / FADM Date: 08/14/24 Loc: HO.XRAY Attending Dr: Julia Li MD Ordering Physician: Julia Li MD Date of Service: 08/14/24 Procedure(s): FL barium swallow with air Accession Number(s): [id number] cc: Eddie Marshall MD; Julia Li MD [...] 08/15/24 1654 DD/ 0952 TD/TT: 08/14/24 1020 Erp Pm: [facility] External Provider IMG FLU OROSCOPY PROCEDURES Final Result * Immunofixation (ALEXANDER), Urine (08/14/2024 9:41 AM EST) ALEXANDER Interpretation SEE NOTE [facility] Comment:Normal pattern. No m onoclonal proteins detected.The supplier of the testing reagents for this assayhas changed. Detection of small monoclonal proteins mayvary by test system.THIS TEST WAS PERFORMED AT:[facility] [place] [id number] PAYNE MD 08/14/2024 9:41 AM EST 08/14/2024 10:39 AM EST us Generic External Data Provider LAB URINE ORDERAB LES Final Result Performing Organization Address [facility]/ZIP Co de Phone Number [facility] [address] [place] [phone] * (ABNORMAL) Protein, Total and Protein??Electrophoresis (08/14/2024 9:37 AM EST) Prot Elec - Total Protein 6.7 6.1 - 8.1 g/dL [facility] Prot Elec - Albumin 3.2(A) 3.8 - 4.8 g/dL [facility] Prot Elec - Alpha1 0.4(A) 0.2 - 0.3 g/dL [facility] Prot Elec - Alpha2 1.1(A) 0.5 - 0.9 g/dL [facility] Prot Elec - Beta 1 0.5 0.4 - 0.6 g/dL [facility] Prot Elec - Beta 2 0.5 0.2 - 0.5 g/dL [facility] Prot Elec - Gamma 1.0 0.8 - 1.7 g/dL [facility] PES - Abn Protein Band 1 [facility] PES-Abn Protein Band 2 [facility] PES-Abn Protein Band 3 [facility] Prot Elec - Interpretation SEE NOTE [facility] Comment:Evaluation is consis tent with an acute inflammatorypattern.THIS TEST WAS PERFORMED AT:[facility] [place] [id number]- [id number] PAYNE MD 08/14/2024 9:37 AM EST 08/14/2024 9:41 AM EST us Generic External Data Provider LAB BLOOD ORDERAB LES Final Result Performing Organization Address [facility]/ZIP Co de Phone Number [facility] [address] [place] [address] [phone] * (ABNORMAL) Lipid Panel, Standard (01/16/2024 9:40 AM EDT) Triglycerides 199(H) <150 mg/dL [facility] Comment:Desirable Triglyceri de: less than 150 mg/dLBorderline High Triglyceride 150-199 mg/dLHigh Triglyceride: 200-499 mg/dLVery High Triglyceride: greater than or equal to 5OO mg/dL Cholesterol 150 <200 mg/dL [facility] Comment:Desirable Cholestero l: less than 200 mg/dLBorderline High Cholesterol: 200-239 mg/dLHigh Cholesterol: greater than 239 mg/dL LDL Cholesterol Calculated 63 <100 mg/dL [facility] Comment:Desirable LDL: less than 100 mg/dLNear Optimal/Above Optimal LDL: 110- 129 mg/dLBorderline High LDL: 130-159 mg/dLHigh LDL: 160-189 mg/dLVery High LDL: greater than or equal to 190 mg/dL HDL Cholesterol 48 >40 mg/dL [facility] Comment:Desirable HDL: great er than 40 mg/dL Note: This HDL assay may give artificially low results in patients with liver disease. Blood Venous blood specimen / Unknown 01/16/2024 9:40 AM EDT 01/16/2024 11:20 AM EDT us Eddie Name LAB BLOOD ORDERABLES Final Resul t [facility] [address] [place] [address] [phone] * Albumin, Random Urine W/Creatinine (01/16/2024 9:35 AM EDT) Creatinine, Urine 27.62 mg/dL [facility] Microalbumin Urine <5.0 mg/L [facility] Microalbum Creatinine Ratio Ur TNP <30 ug/mg cr [facility] Comment:Unable to calculate albumin/creatinine ratio due to lowmicroalbumin or creatinine result. Urine (Urine, Random) 01/16/2024 9:35 AM EDT 01/16/2024 11:12 AM EDT us Eddie Marshall MD LAB URINE ORDERABLES Final Resul t [facility] [address] [place] [address] [phone] * Hm Diabetes Eye Exam (05/16/2023) Eye Exam Normal Normal Eddie Marshall MD HEALTH MAINTENANCE Final Result * (ABNORMAL) Hepatitis Panel, General (11/18/2022 2:07 PM EDT) Hepatitis A Antibody Total REACTIVE( A) NON-REACT NAHID [facility] [place] [employer] Comment: For additional information, please refer to http://[employer]/faq/GPN918 (This link is being provided for informational/ educational purposes only.) Hepatitis B Surface Antibody QL NON-REACT NAHID NON-REACT [facility]ID[facility]umen [facility] Hepatitis B Surface Ag NON-REACT NAHID NON-REACT NAHID [employer] [place] [employer] Hepatitis B Core Antibody Total NON-REACT NAHID NON-REACT NAHIDElumen Solutions [facility] Hepatitis C Antibody NON-REACT NAHID NON-REACT NAHID [employer] [place] [employer] Index 0.07 <1.00 [facility] [place] [employer] Comment: HCV antibody was non-reactive. There is no laboratory evidence of HCV infection. In most cases, no further action is required. However, if recent HCV exposure is suspected, a test for HCV RNA (test code 51399) is suggested. For additional information please refer to http://[employer]/faq/ESY62n0 (This link is being provided for informational/ educational purposes only.) 11/18/2022 2:07 PM EDT 11/18/2022 2:09 PM EDT Narrative [facility] - 11/19/2022 6:51 AM EDT COLLECTION KIT GIVEN TO PATIENT. PATIENT ADVISED TO RETURN. us Mckenzie RODRIGUEZ LAB BLOOD ORDERABLES Final Res ult [facility] [address] [facility], [place] [address] [facility] [address] [place] [address] from Last 3 Months or Most Recently Relevant to Health Maintenance Insurance [place] [place] [id number] Care Teams Market Development Analyst Relationship Specialty Start Date End Date Name, MD Eddie [address] [place] [address] PCP - General Family Medicine 09/16/15 [place] [facility] 07/01/24
--- OUTSIDE RECORDS SUMMARY | 2024-11-05 12:26 | XMS_ITS | Encounter Summary ---
Author Organization [employer] Address [address] [place] [address] 7 [place] [address] Care Team Providers Care Tire Trimmer Hand Name Role Phone Name, Eddie GILMORE Primary Care Provider [phone] Reason for Visit * Reason Comments Med Refill Encounter Details Date Type Department Care Team ([facility] st Contact Info) Description 05/08/[address] [facility] [address] [place], [place] [phone] Name, MD Eddie [address] [place] [address] Chronic pain syndrome Social History Tobacco Use [...] Description 11/12/2024 9:45 AM EDT Office Visit [facility] [address] [place] [address] documented as of this encounter Visit Diagnoses Diagnosis Chronic pain syndrome documented in this encounter Additional Health Concerns Assessment Noted Time PHQ-9 Depression Total Score: 10 023 1:16 PM EDT documented as of this encounter Care Teams Tire Trimmer Hand Relationship Specialty Start Date End Date Name, MD Eddie [address] [place] [address] PCP - General Family Medicine 09/16/15 [facility] documented as of this encounter
--- OUTSIDE RECORDS SUMMARY | 2024-11-05 12:26 | XMS_ITS | Encounter Summary ---
Author Organization [employer] Address [address] [place] [address] 7 [place] [address] Care Team Providers Care Coping Machine Assembler Name Role Phone Name, Eddie GILMORE Primary Care Provider [phone] Reason for Visit * Reason Comments Med Refill Encounter Details Date Type Department Care Team (Late Contact Info) Description 02/26/2023 Refill [facility] [address] [place] [address] [phone] Name, MD Eddie [address] [place] [address] [phone] Chronic pain syndrome Social History Tobacco Use [...] Department Care Team (Late Contact Info) Description 11/12/2024 9:45 AM EDT Office Visit [facility] [address] [place] [address] [phone] documented as of this encounter Visit Diagnoses Diagnosis Chronic pain syndrome documented in this encounter Additional Health Concerns Assessment Noted Time PHQ-9 Depression Total Score: 10 023 1:16 PM EDT documented as of this encounter Care Teams Coping Machine Assembler Relationship Specialty Start Date End Date Name, MD Eddie [address] [facility] [place] [address] PCP - General Family Medicine 09/16/15 Jerica SEN 07/01/24 documented as of this encounter
--- OUTSIDE RECORDS SUMMARY | 2024-11-05 12:26 | XMS_ITS | Encounter Summary ---
Author Organization [employer] Address [address] [place] [address] 7 [place] [address] Care Team Providers Care Reconstructive Surgeon Name Role Phone Name, Eddie GILMORE Primary Care Provider [phone] Reason for Visit * Reason Onset Date Comments Medication Question 09/05/2023 Encounter Details Date Type Department Care Team ([facility] st Contact Info) Description 09/05/2023 Telephone [facility] [address] [place], [place] [phone] Name, MD Eddie [address] [place] [address] Medication Question Social History Tobacco Use Types [...] Description 11/12/2024 9:45 AM EDT Office Visit [facility] [address] [place] [address] documented as of this encounter Visit Diagnoses Not on filedocumented in this encounter Additional Health Concerns Assessment Noted Time PHQ-9 Depression Total Score: 10 023 1:16 PM EDT documented as of this encounter Care Teams Reconstructive Surgeon Relationship Specialty Start Date End Date Name, MD Eddie [address] [place] [address] PCP - General Family Medicine 09/16/15 Jerica SEN 07/01/24 documented as of this encounter
--- OUTSIDE RECORDS SUMMARY | 2024-11-05 12:26 | XMS_ITS | Encounter Summary ---
Author Organization [employer] Address [address] [place] [address] 7 [place] [address] Care Team Providers Care Computer Security Coordinator Name Role Phone Name, Eddie GILMORE Primary Care Provider [phone] Reason for Visit * Reason Onset Date Comments Active Med List 06/28/2023 Encounter Details Date Type Department Care Team ([facility] st Contact Info) Description 06/28/2023 Telephone [facility] [address] [place], [place] [phone] Name, MD Eddie [address] [place] [address] Active Med List Social History Tobacco Use [...] Be requesting a updated active medication list sql report writer did attempt to transfer to Medical records so that she can obtain this information but they kept transferring back to the call center. [facility] [address], [place], [place] [phone] documented in this encounter Plan of Treatment Upcoming Encounters Date Type Department Care Team (Late st Contact Info) Description 11/12/2024 9:45 AM EDT Office Visit [facility] [address] [place] [address] documented as of this encounter Visit Diagnoses Not on filedocumented in this encounter Additional Health Concerns Assessment Noted Time PHQ-9 Depression Total Score: 10 023 1:16 PM EDT documented as of this encounter Care Teams Computer Security Coordinator Relationship Specialty Start Date End Date Name, MD Eddie [address] [place] [address] PCP - General Family Medicine 09/16/15 Jerica SEN 07/01/24 documented as of this encounter
--- OUTSIDE RECORDS SUMMARY | 2024-11-05 12:27 | XMS_ITS | Encounter Summary ---
Author Organization [employer] Address [address] [place] [address] 7 [place] [address] Care Team Providers Care Tool Design Engineer Name Role Phone Name, Eddie GILMORE Primary Care Provider [phone] Reason for Visit * Reason Onset Date Comments Referral 02/02/2023 Back dated refer ral Encounter Details Date Type Department Care Team ([facility] st Contact Info) Description 02/02/[address] [facility] [address] [place], [place] [phone] Name, MD Eddie [address] [place] [address] Referral (Back dated referral ) Social History [...] 1:40 PM EDT Tc from Kasie at [facility] requesting status on message below regarding referral. Fax number [phone]. Any questions please call [phone] * Telephone Encounter - Amber Roger RN - 02/03/2023 10:34 AM EDT Please review message below regarding backdated referral for these dates * Telephone Encounter - Laure Mcgill - 02/02/2023 2:07 PM EDT Tc from Kasie at [facility] calling in regards to referral needing to be back dated. Patient was seen at the office on 01/03/23 and 01/11/23. Fax number [phone]. Any questions please call [phone]. documented in this encounter Plan of Treatment Upcoming Encounters Date Type Department Care Team (Late st Contact Info) Description 11/12/2024 9:45 AM EDT Office Visit [facility] [address] [place] [address] documented as of this encounter Visit Diagnoses Not on filedocumented in this encounter Additional Health Concerns Assessment Noted Time PHQ-9 Depression Total Score: 10 023 1:16 PM EDT documented as of this encounter Care Teams Tool Design Engineer Relationship Specialty Start Date End Date Name, MD Eddie [address] [place] [address] PCP - General Family Medicine 09/16/15 [facility] 07/01/24 documented as of this encounter
--- OUTSIDE RECORDS SUMMARY | 2024-11-05 12:27 | XMS_ITS | Encounter Summary ---
Author Organization [employer] Address [address] [place] [address] 7 [place] [address] Care Team Providers Care Bleach Chlorinator Name Role Phone Name, Eddie GILMORE Primary Care Provider [phone] Reason for Visit * Reason Onset Date Comments ER Follow-up 09/27/2024 Encounter Details Date Type Department Care Team ([facility] st Contact Info) Description 09/27/2024 Telephone [facility] MED[facility] [address] [place], [place] [phone] Name, MD Eddie [address] [place] [address] ER Follow-up Social History Tobacco Use Types [...] ED visit on : Date: 09/26/24 Hospital: [facility] Seen for: Nose bleeds Symptomatic yes . [...] Description 11/12/2024 9:45 AM EDT Office Visit [facility] [address] [place] [address] documented as of this encounter Visit Diagnoses Not on filedocumented in this encounter Additional Health Concerns Assessment Noted Time PHQ-9 Depression Total Score: 9 05/10/20 24 11:56 AM EST documented as of this encounter Care Teams Bleach Chlorinator Relationship Specialty Start Date End Date Name, MD Eddie [address] [place] [address] PCP - General Family Medicine 09/16/15 [place] [facility] 07/01/24 documented as of this encounter
--- OUTSIDE RECORDS SUMMARY | 2024-11-05 12:27 | XMS_ITS | Encounter Summary ---
Author Organization [employer] Address [address] [place] [address] 7 [place] [address] Care Team Providers Care Civil Litigation Attorney Name Role Phone Name, Eddie GILMORE Primary Care Provider [phone] Reason for Visit * Reason Comments Med Refill Encounter Details Date Type Department Care Team ([facility] Contact Info) Description 12/01/2022 Refill [facility] [address] [place], [place] [phone] Name, MD Eddie [address] [place] [address] Controlled type 2 diabetes mellitus with complication, without long-term current use of insulin ([facility]) Social History [...] Description 11/12/2024 9:45 AM EDT Office Visit [facility] [address] [facility] [place] [address] documented as of this encounter Visit Diagnoses Diagnosis Controlled type 2 diabetes mellitus with complication, without long-term current use of insulin ([facility]) documented in this encounter Additional Health Concerns Assessment Noted Time PHQ-9 Depression Total Score: 10 023 1:16 PM EDT documented as of this encounter Care Teams Civil Litigation Attorney Relationship Specialty Start Date End Date Name, MD Eddie [address] [facility] [place] [address] PCP - General Family Medicine 09/16/15 Jerica SEN 07/01/24 documented as of this encounter
--- OUTSIDE RECORDS SUMMARY | 2024-11-05 12:27 | XMS_ITS | Encounter Summary ---
Author Organization [employer] Address [address] [place] [address] [place] [address] Care Team Providers Care Fire Alarm Installer Name Role Phone Name, Eddie GILMORE Primary Care Provider [phone] Reason for Visit * Reason Comments Med Refill Encounter Details Date Type Department Care Team (Late st Contact Info) Description 01/29/2023 Refill [facility] MED[facility]INE [address] [place] [address] [phone] Farhana Singh FNP [address] [place] [address] [place] [address] Social History Tobacco Use Types Packs/Day Years [...] Description 11/12/2024 9:45 AM EDT Office Visit [facility] [address] [place] [address] [phone] documented as of this encounter Visit Diagnoses Not on filedocumented in this encounter Additional Health Concerns Assessment Noted Time PHQ-9 Depression Total Score: 023 1:16 PM EDT documented as of this encounter Care Teams Fire Alarm Installer Relationship Specialty Start Date End Date Name, MD Eddie 230 [place] [address] PCP - General Family Medicine 09/16/15 Jerica Sim 07/01/24 documented as of this encounter
--- OUTSIDE RECORDS SUMMARY | 2024-11-05 12:27 | XMS_ITS | Encounter Summary ---
Author Organization [employer] Address [address] [place] [address] 7t [place] [address] Care Team Providers Care Agricultural Inspector Name Role Phone Name, Eddie GILMORE Primary Care Provider [phone] Encounter Details Date Type Department Care Team ([facility] Contact Info) Description 12/07/2022 Telephone [facility] [address] [place], [place] [phone] Name, MD Eddie 230 [place], [place] [phone] Social History Tobacco Use Types Packs/Day Years [...] update PCP now. Ordering provider Pierce Pillai ASSOCIATE PROFESSOR OF MEDICINE Follow with genaro as indicated. Results faxed at time of call to [phone]. Ref.# [id number] documented in this encounter Plan of Treatment Upcoming Encounters Date Type Department Care Team (Late st Contact Info) Description 11/12/2024 9:45 AM EDT Office Visit [facility] [address] [place] [address] documented as of this encounter Visit Diagnoses Not on filedocumented in this encounter Additional Health Concerns Assessment Noted Time PHQ-9 Depression Total Score: 10 023 1:16 PM EDT documented as of this encounter Care Teams Agricultural Inspector Relationship Specialty Start Date End Date Name, MD Eddie [address] [place] [address] PCP - General Family Medicine 09/16/15 [facility] documented as of this encounter
--- OUTSIDE RECORDS SUMMARY | 2024-11-05 12:27 | XMS_ITS | Encounter Summary ---
Author Organization [employer] Address [address] [place] [address] 7 [place] [address] Care Team Providers Care Wire Worker Name Role Phone Name, Eddie GILMORE Primary Care Provider [phone] Reason for Visit * Reason Comments Med Refill Encounter Details Date Type Department Care Team (Late Contact Info) Description 01/04/[address] [facility] [address] [place] [phone] Name, MD Eddie [address] [place] [phone] Gastroesophageal reflux disease, unspecified whether esophagitis present [...] 11/12/2024 9:45 AM EDT Office Visit [facility] [address] [place] [address] documented as of this encounter Visit Diagnoses Diagnosis Gastroesophageal reflux disease, unspecified whether esophagitis present documented in this encounter Additional Health Concerns Assessment Noted Time PHQ-9 Depression Total Score: 10 023 1:16 PM EDT documented as of this encounter Care Teams Wire Worker Relationship Specialty Start Date End Date Name, MD Eddie [address] [place] [address] PCP - General Family Medicine 09/16/15 [place] A 07/01/24 documented as of this encounter
--- OUTSIDE RECORDS SUMMARY | 2024-11-05 12:27 | XMS_ITS | Data Portability ---
Author Organization [place] - [facility], Allergy Address [address] [place] [phone] Care Team Providers Care Auto Customize Painter Name Role Phone NAME, DELIA Primary Care [...] Time Details Appointments Establish ed 15 2024 01:45P Alexx WILSON PA-C Not available Not available Not available Lab None recorded. Referral None recorded. Procedures None recorded. Surgeries None recorded. Imaging None recorded. Medication Orders None recorded. Patient TargetsNo targets recorded. Patient InstructionsNo instructions recorded. Reason for Referral None Reported. Problems Name Problem SNOMED Code Status Onset Date Resolution Date Notes Provider Name and Address Organization Details Recorded Time Essential hypertens ion 04708313 Active 2014 Essential (primary) hypertensi on; Note: Date Diagnosed: 05/07/2015 9:43 AM (I10) Not Available [facility] 4 02:37:47 Bleeding from nose 618071903 Active 2014 Epistaxis; Note: Date Diagnosed: 05/07/2015 9:43 AM (R04.0) Not Available [facility] 4 02:37:50 Anterior epistaxis 950559208 Active 2024 YANIV GARCIA MD [address] [place] [address], [phone] , [facility] 5 12:32:29 Problem Notes None recorded. Procedures Surgical History Date Name Laterality Status Provider Name and Address Organization Details Recorded Time Epistaxis Simple Nasal Cautery Right completed YANIV GARCIA MD [address] [place] [address], [phone], [facility] 08/11/2024 12:31:38 Imaging Results None recorded. Procedure Notes None recorded. Medical Equipment None Reported. Allergies Allergen ID Allergen Name Allergen Category Reaction Reaction Severity Criticality Documentation Date Start Date Code Code System Note Provider Name and Address Organization Details Recorded Time 636887 scallop allergeni c extract food Not available Not available Not available 10/11/2024 60542 6 RxNorm Rosa Motyka rosalino [place] - [facility] 5 15:45:20 53356 atorvasta tin medicatio n other Not available Not available 10/31/2023 12044 RxNorm Rosa Motyka rosalino [facility] 5 15:45:20 Medications Name Sig Start [...] 24 hr 08/09 completed Medicati on ID: [id number] D uration Value: 90 Brand Name: oxybutyn in chloride Send Method: E-Prescr ibed Sub s Allowed: subs OK Speci al Instruct ion: TAKE 1 TABLET BY MOUTH EVERY DAY Medi cationGe nericNam e: oxybutyn in chloride Not Available Not Available Not Available Patanol 0.1 % eye drops 08/09 completed Medicati on ID: [id number] B rand Name: Patanol Send Method: E-Prescr [...] layed release 08/09 completed Medicati on ID: [id number] B rand Name: aspirin Send Method: E-Prescr ibed Sub s Allowed: subs OK Medic ationGen ericName : aspirin Not Available Not Available Not Available tramadol 50 mg tablet 10/11 completed Medicati on ID: [id number] D uration Value: 28 Brand Name: tramadol Send Method: E-Prescr ibed Sub s Allowed: subs OK Speci al Instruct ion: TAKE 1 TABLET BY MOUTH EVERY 8 HOURS NEEDED FOR PAIN Med icationG enericNa me: tramadol Not Available Not Available Not Available nortripty line 25 mg capsule 08/09 completed Medicati on ID: [id number] D uration Value: 90 Brand Name: nortript yline Se nd Method: E-Prescr ibed Sub s Allowed: subs OK Speci al Instruct ion: TAKE 3 CAPSULES BY MOUTH AT BEDTIME Medicati onGeneri cName: nortript yline Not Available Not Available Not Available levothyro xine 100 mcg tablet 08/09 completed Medicati on ID: [id number] D uration Value: 90 Brand Name: levothyr [...] elayed release 10/11 completed Medicati on ID: [id number] D uration Value: 90 Brand Name: omeprazo [...] spray,tawny alvarez 10/11 completed Medicati on ID: [id number] D uration Value: 30 Brand Name: fluticas one Send Method: E-Prescr ibed Sub s Allowed: subs OK Speci al Instruct ion: SPRAY 2 SPRAYS INTO EACH NOSTRIL DAILY Me dication GenericN delmi: fluticas one Not Available Not Available Not Available loratadin e 10 mg tablet 08/09 completed Medicati on ID: [id number] D uration Value: 30 Brand Name: loratadi [...] 500 mg tablet active Medicati on ID: [id number] B rand Name: Tylenol Extra Strength Send [...] Updated DateTime 09/06/2024 157.48 cm 25.4 kg/m2 83087.34 g KELLY SKELTON [place] - [facility] 09/06/2024 13:28:14 Date Recorded Body height Body mass index (BMI) Body weight Provider Name and Address Organization Details Last Updated DateTime 10/11/2024 157.48 cm 25.4 kg/m2 55060.34 g Rosa Tello [place] - [facility] 10/11/2024 15:45:16 Social History None recorded. Functional Status None recorded. Mental Status None recorded. Family History Nothing Reported. Medical History Condition Response Diabetes Y Heart Problems Y Bleeding Disorder N Food Allergy Y Arthritis Y Emphysema Y Migraines Y Stroke Y Thyroid Problems Y Asthma Y COPD Y Glaucoma Y Nasal or Sinus Problems Y Anemia Y GERD/Reflux Y High Cholesterol Y Heart Attack (AL) Y Headaches Y Fibromyalgia Y Hypertension Y Gynecological HistoryNo gynecological history recorded. Obstetrics History GPAL:G 0 P 0 0 0 0 Past Encounters Encounter ID Performer Location Encounter Start Date Encounter Closed Date Diagnosis/Indication Diagnosis SNOMED-CT Code Diagnosis ICD10 Code Diagnosis Note [id number] YANIV GARCIA MD [facility] [address] [place] [address] 08/09/2024 09:39:15 08/09/2024 11:07:17 Anterior epistaxis 664846242 R04.0 78-year-ol d female with a history [...] for cautery on the left. Essential hypertension 42936504 I10 Long-term current use of antiplatelet drug 2599737907 75726 Z79.02 [id number] HUONG WILSON PA-C [facility] [address] [address] 09/06/2024 13:16:33 09/06/2024 13:54:17 Anterior epistaxis 383914747 R04.0 Bleeding from nose 58587 6005 R04.0 Essential hypertension 52522811 I10 [id number] JOEY ROY PA-C [facility] [address] [address] 10/11/2024 15:10:24 10/11/2024 16:03:50 Anterior epistaxis 731547513 R04.0 Health Concerns Section Related Observation LastModified by Organization Detai ls LastModified Time None Recorded Concern Status LastModified by Organization Details LastModified Time None Recorded Advance Directives Directive None Recorded Payers Insurance Date Sequence Insurance Name Policy Number Policy Zapata Covered Member ID Zapata Member ID Guarantor Name 10/08/2024 1 [place]: [facility] Celeste Abad [id number] Celeste Abad 10/08/2024 2 [facility] - DUAL ELIGIBLE - [employer] - SENIOR PLAN (MEDICARE REPLACEMENT/ ADVANTAGE - HMO) Celeste Abad [id number] Celeste Abad 10/14/2024 1 [facility] (MEDICAID HMO) Celeste Abad [id number] Celeste Abad 10/08/2024 1 [facility] (MEDICAID HMO) Celeste Abad [id number] Celeste Abad Notes Date Note Type Note [...] able to stop them YANIV GARCIA MD [address] [place] [address], [phone], [facility] - [facility] 08/11/2024 12:36:32 09/06/2024 text/html 78yo female with hypertension on clopidogrel presents for reevaluation of right recurrent nosebleeds. Right septum cauterized 08/09/[address] Garcia. Patient reports persistent recurrent right-sided nasal bleeding every couple days. Most recent episode 3 days ago, managed quickly with nasal cease. She is in the process of scheduling iron transfusions through [facility]. She was recently diagnosed with emphysema. She continues to touch the nose frequently. YANIV GARCIA MD [address] [place] [address],[address], [phone], [facility] - [facility] 09/06/2024 17:25:55 10/11/2024 text/html 78 year old fema le presents for evaluation of the nose. She reports epistaxis up to several times per week. Always from the right. Can be very high volume. Can persist for hours. Had nasal pack placed at [place] 09/26. For prevention, she applies saline gel with a Q-tip multiple times per day. When she bleeds she packs the nose with hemostat. AURORA SHAH MD [address] [place] [address], [place], [phone], [facility] - [facility] 10/11/2024 16:14:56 OBGyn Episode No OBEpisode recorded.
== END 2024-11-05 11:09 | disposition home or self-care (01) ==
LOC: HO.LAB 11:08
PROVIDERS: PCP Internal Medicine Geriatric Medicine; Visit Provider Nurse Practitioner Family
DX: Z13.89 Encounter for screening for other disorder (principal)
CPT/HCPCS: 81001; 87086

== ENCOUNTER 2024-11-05 12:29 | Outpatient (REF) | payer MEDICARE, SELFPAY ==
--- OUTSIDE RECORDS SUMMARY | 2024-11-05 13:34 | XMS_ITS | Encounter Summary ---
Author Organization [employer] Address [address] [place] [address] 7 [place] [address] Care Team Providers Care Assistant Guest Services Manager Name Role Phone Name, Eddie GILMORE Primary Care Provider [phone] Reason for Visit * Reason Onset Date Comments Referral 02/02/2023 Back dated refer ral Encounter Details Date Type Department Care Team ([facility] st Contact Info) Description 02/02/2023 Telephone [facility] MEDICINE [address] [place], [place] [phone] Name, MD Eddie [address] [place] [address] Referral (Back dated referral ) Social History [...] PM EDT Tc from Kasie at [facility] requesting status on message below regarding referral. Fax number [phone]. Any questions please call [phone] * Telephone Encounter - Amber Roger RN - 02/03/2023 10:34 AM EDT Please review message below regarding backdated referral for these dates * Telephone Encounter - Laure Mcgill - 02/02/2023 2:07 PM EDT Tc from Kasie at [facility] calling in regards to referral needing to be back dated. Patient was seen at the office on 01/03/23 and 01/11/23. Fax number [phone]. Any questions please call [phone]. documented in this encounter Plan of Treatment Upcoming Encounters Date Type Department Care Team (Late st Contact Info) Description 11/12/2024 9:45 AM EDT Office Visit [facility] MEDICINE [address] [place] [address] documented as of this encounter Visit Diagnoses Not on filedocumented in this encounter Additional Health Concerns Assessment Noted Time PHQ-9 Depression Total Score: 10 023 1:16 PM EDT documented as of this encounter Care Teams Assistant Guest Services Manager Relationship Specialty Start Date End Date Name, MD Eddie [address] [place] [address] PCP - General Family Medicine 09/16/15 [facility] 07/01/24 documented as of this encounter
--- OUTSIDE RECORDS SUMMARY | 2024-11-05 13:34 | XMS_ITS | Encounter Summary ---
Author Organization [employer] Address [address] [place] [address] 7t [place] [address] Care Team Providers Care Palliative Care Nurse Practitioner Name Role Phone Name, Eddie GILMORE Primary Care Provider [phone] Reason for Visit * Reason Onset Date Comments Med Refill 11/04/2024 Encounter Details Date Type Department Care Team (Late st Contact Info) Description 11/04/2024 Refill [facility] MEDICINE [address] [place], [place] [phone] Name, MD Eddie [address] [place] [address] Chronic pain syndrome Social History Tobacco Use [...] 11/04/2024 2:37 PM EDT [employer] checked by life insurance underwriter on 11/04/24. Pt picked up a 28 [...] 5-325 MG tablet To be sent too: [facility] [place] - [address] [facility] documented in this encounter Plan of Treatment Upcoming Encounters Date Type Department Care Team ([facility] st Contact Info) Description 11/12/2024 9:45 AM EDT Office Visit [facility] MEDICINE [address] [place] [address] documented as of this encounter Visit Diagnoses Diagnosis Chronic pain syndrome documented in this encounter Additional Health Concerns Assessment Noted Time PHQ-9 Depression Total Score: 9 05/10/20 24 11:56 AM EST documented as of this encounter Care Teams Palliative Care Nurse Practitioner Relationship Specialty Start Date End Date Name, MD Eddie [address] [place] [address] PCP - General Family Medicine 09/16/15 [facility] 07/01/24 documented as of this encounter
--- OUTSIDE RECORDS SUMMARY | 2024-11-05 13:34 | XMS_ITS | Encounter Summary ---
Author Organization [employer] Address [address] [place] [address] 7 [place] [address] Care Team Providers Care Material Checker Name Role Phone Name, Eddie GILMORE Primary Care Provider [phone] Reason for Visit * Reason Onset Date Comments Active Med List 06/28/2023 Encounter Details Date Type Department Care Team ([facility] st Contact Info) Description 06/28/2023 Telephone [facility] MEDICINE [address] [place], [place] [phone] Name, MD Eddie [address] [place] [address] Active Med List Social History Tobacco Use [...] Be requesting a updated active medication list public relations writer did attempt to transfer to Medical records so that she can obtain this information but they kept transferring back to the call center. [facility] [address], [place], [place] [phone] documented in this encounter Plan of Treatment Upcoming Encounters Date Type Department Care Team (Late st Contact Info) Description 11/12/2024 9:45 AM EDT Office Visit [facility] MEDICINE [address] [place] [address] documented as of this encounter Visit Diagnoses Not on filedocumented in this encounter Additional Health Concerns Assessment Noted Time PHQ-9 Depression Total Score: 10 023 1:16 PM EDT documented as of this encounter Care Teams Material Checker Relationship Specialty Start Date End Date Name, MD Eddie [address] [place] [address] PCP - General Family Medicine 09/16/15 [facility] 07/01/24 documented as of this encounter
--- OUTSIDE RECORDS SUMMARY | 2024-11-05 13:34 | XMS_ITS | Encounter Summary ---
Author Organization [employer] Address [address] [place] [address] 7 [place] [address] Care Team Providers Care Elevator Installer Name Role Phone Name, Eddie GILMORE Primary Care Provider [phone] Reason for Visit * Reason Onset Date Comments Med Refill 11/01/2024 Encounter Details Date Type Department Care Team ([facility] st Contact Info) Description 11/01/2024 Telephone [facility] MEDICINE [address] [place], [place] [phone] Name, MD Eddie [address] [place] [address] Med Refill Social History Tobacco Use Types [...] 5-325 MG tablet To be sent too: [facility] - [place], [place] - [address] [facility] documented in this encounter Plan of Treatment Upcoming Encounters Date Type Department Care Team (Late st Contact Info) Description 11/12/2024 9:45 AM EDT Office Visit [facility]INE [address] [facility] [place] [address] documented as of this encounter Visit Diagnoses Not on filedocumented in this encounter Additional Health Concerns Assessment Noted Time PHQ-9 Depression Total Score: 9 05/10/20 24 11:56 AM EST documented as of this encounter Care Teams Elevator Installer Relationship Specialty Start Date End Date Name, MD Eddie [address] [facility] [place] [address] PCP - General Family Medicine 09/16/15 [facility] [facility] 07/01/24 documented as of this encounter
--- OUTSIDE RECORDS SUMMARY | 2024-11-05 13:34 | XMS_ITS | Encounter Summary ---
Author Organization [employer] Address [address] [place] [address] 7 [place] [address] Care Team Providers Care Groundhand Name Role Phone Name, Eddie GILMORE Primary Care Provider [phone] Reason for Visit * Reason Comments Med Refill Encounter Details Date Type Department Care Team (Late Contact Info) Description 02/26/2023 Refill [facility] MEDICINE [address] [place] [phone] Name, MD Eddie [address] [place] [address] [phone] Chronic pain syndrome Social History Tobacco Use [...] Office Visit [facility] MEDICINE [address] [place] [phone] documented as of this encounter Visit Diagnoses Diagnosis Chronic pain syndrome documented in this encounter Additional Health Concerns Assessment Noted Time PHQ-9 Depression Total Score: 10 023 1:16 PM EDT documented as of this encounter Care Teams Groundhand Relationship Specialty Start Date End Date Name, MD Eddie 230 [facility] [address] PCP - General Family Medicine 09/16/15 [facility] [facility] 07/01/24 documented as of this encounter
--- OUTSIDE RECORDS SUMMARY | 2024-11-05 13:34 | XMS_ITS | Encounter Summary ---
Author Organization [employer] Address [address] [place] [address] 7 [place] [address] Care Team Providers Care Business Area Director Name Role Phone Name, Eddie GILMORE Primary Care Provider [phone] Reason for Visit * Reason Onset Date Comments ER Follow-up 09/27/2024 Encounter Details Date Type Department Care Team ([facility] st Contact Info) Description 09/27/2024 Telephone [facility] MEDICINE [address] [place], [place] [phone] Name, MD Eddie [address] [place] [address] ER Follow-up Social History Tobacco Use Types [...] ED visit on : Date: 09/26/24 Hospital: [facility] Seen for: Nose bleeds Symptomatic yes . [...] Description 11/12/2024 9:45 AM EDT Office Visit [facility] MEDICINE [address] [place] [address] documented as of this encounter Visit Diagnoses Not on filedocumented in this encounter Additional Health Concerns Assessment Noted Time PHQ-9 Depression Total Score: 9 05/10/20 24 11:56 AM EST documented as of this encounter Care Teams Business Area Director Relationship Specialty Start Date End Date Name, MD Eddie [address] [place] [address] PCP - General Family Medicine 09/16/15 [facility] 07/01/24 documented as of this encounter
--- OUTSIDE RECORDS SUMMARY | 2024-11-05 13:34 | XMS_ITS | Encounter Summary ---
Author Organization [employer] Address [address] [place] [address] 7 [place] [address] Care Team Providers Care Utility Worker Film Processing Name Role Phone Name, Eddie GILMORE Primary Care Provider [phone] Reason for Visit * Reason Comments Med Refill Encounter Details Date Type Department Care Team ([facility] st Contact Info) Description 06/18/2023 Refill [facility] MEDICINE [address] [place], [place] [phone] Name, MD Eddie [address] [place] [address] Chronic pain syndrome Social History Tobacco Use [...] EDT Office Visit [facility] [address] [place] [address] documented as of this encounter Visit Diagnoses Diagnosis Chronic pain syndrome documented in this encounter Additional Health Concerns Assessment Noted Time PHQ-9 Depression Total Score: 10 023 1:16 PM EDT documented as of this encounter Care Teams Utility Worker Film Processing Relationship Specialty Start Date End Date Name, MD Eddie [address] [place] [address] PCP - General Family Medicine [facility] documented as of this encounter
--- OUTSIDE RECORDS SUMMARY | 2024-11-05 13:34 | XMS_ITS | Encounter Summary ---
Author Organization [employer] Address [address] [place] [address] 7 [place] [address] Care Team Providers Care Psych Sales Specialist Name Role Phone Name, Eddie GILMORE Primary Care Provider [phone] Encounter Details Date Type Department Care Team ([facility] Contact Info) Description 11/18/2022 Abstract [facility] MEDICINE [address] [place] [address] [phone] Name, MD Eddie [address] [place] [address] [phone] Social History Tobacco Use Types Packs/Day Years [...] Upcoming Encounters Date Type Department Care Team ([facility] Contact Info) Description 11/12/2024 9:45 AM EDT Office Visit [address] [phone] documented as of this encounter Visit Diagnoses Not on filedocumented in this encounter Care Teams Psych Sales Specialist Relationship Specialty Start Date End Date Name, MD Eddie [address] [facility] [place] [address] PCP - General Family Medicine 09/16/15 [facility] [facility] 07/01/24 documented as of this encounter
--- OUTSIDE RECORDS SUMMARY | 2024-11-05 13:34 | XMS_ITS | Encounter Summary ---
Author Organization [employer] Address [address] [place] [address] 7t [place] [address] Care Team Providers Care Containers Sales Representative Name Role Phone Name, Eddie GILMORE Primary Care Provider [phone] Encounter Details Date Type Department Care Team ([facility] Contact Info) Description 12/07/2022 Telephone [facility] MEDICINE [address] [place], [place] [phone] Name, MD Eddie [address] [place], [place] [phone] Social History Tobacco Use Types Packs/Day Years [...] update PCP now. Ordering provider Pierce Pillai CHARTER DRIVER Follow with genaro as indicated. Results faxed at time of call to [phone]. Ref.# [id number] documented in this encounter Plan of Treatment Upcoming Encounters Date Type Department Care Team (Late st Contact Info) Description 11/12/2024 9:45 AM EDT Office Visit [facility] MEDICINE [address] [place] [address] documented as of this encounter Visit Diagnoses Not on filedocumented in this encounter Additional Health Concerns Assessment Noted Time PHQ-9 Depression Total Score: 10 023 1:16 PM EDT documented as of this encounter Care Teams Containers Sales Representative Relationship Specialty Start Date End Date Name, MD Eddie [address] [place] [address] PCP - General Family Medicine [facility] documented as of this encounter
--- OUTSIDE RECORDS SUMMARY | 2024-11-05 13:34 | XMS_ITS | Encounter Summary ---
Author Organization [employer] Address [address] [place] [address] 7 [place] [address] Care Team Providers Care Cloth Brushing And Sueding Supervisor Name Role Phone Name, Eddie GILMORE Primary Care Provider [phone] Reason for Visit * Reason Comments Med Refill Encounter Details Date Type Department Care Team ([facility] Contact Info) Description 12/01/2022 Refill [facility] MEDICINE 230 [place], [place] [phone] Name, MD Eddie [address] [place] [address] Controlled type 2 diabetes mellitus with complication, without long-term current use of insulin ([facility]) Social History Tobacco Use Types [...] 11/12/2024 9:45 AM EDT Office Visit [facility] [address] [facility] [place] [address] documented as of this encounter Visit Diagnoses Diagnosis Controlled type 2 diabetes mellitus with complication, without long-term current use of insulin ([facility]) documented in this encounter Additional Health Concerns Assessment Noted Time PHQ-9 Depression Total Score: 10 023 1:16 PM EDT documented as of this encounter Care Teams Cloth Brushing And Sueding Supervisor Relationship Specialty Start Date End Date Name, MD Eddie [address] [facility] [place] [address] PCP - General Family Medicine 09/16/15 [facility] 07/01/24 documented as of this encounter
--- OUTSIDE RECORDS SUMMARY | 2024-11-05 13:34 | XMS_ITS | Encounter Summary ---
Author Organization [employer] Address [address] [place] [address] [place] [address] Care Team Providers Care Half Backer Name Role Phone Name, Eddie GILMORE Primary Care Provider [phone] Reason for Visit * Reason Comments Med Refill Encounter Details Date Type Department Care Team (Late st Contact Info) Description 01/29/2023 Refill [facility] [address] [place] [address] [phone] Farhana Singh FNP [address] [place] [address] Dept [place] [address] Social History Tobacco Use Types Packs/Day Years [...] 9:45 AM EDT Office Visit [facility] [address] [place] [address] [phone] documented as of this encounter Visit Diagnoses Not on filedocumented in this encounter Additional Health Concerns Assessment Noted Time PHQ-9 Depression Total Score: 023 1:16 PM EDT documented as of this encounter Care Teams Half Backer Relationship Specialty Start Date End Date Name, MD Eddie [address] [place] [id number] PCP - General Family Medicine 09/16/15 Jerica Sim 07/01/24 documented as of this encounter
--- OUTSIDE RECORDS SUMMARY | 2024-11-05 13:34 | XMS_ITS | Clinical Summary ---
Author Organization [email or web address] Address [address] [place] [address] 7[address] [place] [address] Care Team Providers Care Microfilm Camera Operator Name Role Phone Name, Eddie GILMORE Primary Care Provider [phone] Allergies Active Allergy Reactions Criticality Noted Date [...] 06/01/20 22 Active Blood Glucose Monitoring Suppl (Visible Measures Verio Flex System) w/Device kit USE DIRECTED [...] in the morning. 01/10/20 23 Active Lancets (Guojia New MaterialsTouch Delica Plus [id number]) miscIndications :Controlled type 2 diabetes mellitus with complication, without long-term current use of insulin ([facility]) USE TO CHECK BLOOD SUGAR TWICE A DAY 100 each 5 09/15/19 24 Active glucose blood (Guojia New MaterialsTouch Verio) test stripIndication s:Controlled type 2 diabetes mellitus with complication, without long-term current use of insulin ([facility]) CHECK BY FINGERSTICK [...] refer stat to ENT for cauterization, possible SYSTEMS TECHNICIAN scope Recommend anterior nasal packing if she is bleeding heavily senior living (current) use of opiate analgesic 03/20 Overview (09/10/2024): Dx: chronic pain syndrome/back pain Rx: Percocet 5/325 every 8 hours Last INSTRUCTIONAL SERVICES SPECIALIST agreement:03/22/24 Tier II (visit every 3 months) [...] that is chronic ready 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 She understands this is the chronic [...] DEPARTMENT Provider, Generic External Data 11/04/[address] [address] Eddie Marshall MD Call Back Request 11/04/2024 Refill [facility] [address] [place] [address] [phone] Eddie Marshall MD Chronic pain syndrome 11/01/2024 Telephone [facility] [address] [place] [phone] Eddie Marshall MD Med Refill 10/29/2024 2:30 PM EDT Office Visit [address] [address] Eddie Marshall MD Iron deficiency anemia due to chronic blood loss (Primary Dx); Chronic insomnia; Controlled type 2 diabetes mellitus with complication, without long-term current use of insulin ([facility]); Chronic obstructive pulmonary disease, unspecified COPD type ([facility]); Pulmonary nodules; Former smoker 10/29/2024 Travel 10/28/[address] [address] Eddie Marshall MD CHART PREP 10/27/[address] [address] Eddie Marshall MD 10/03/[address] [address] Eddie Marshall MD 10/03/[address] [address] Eddie Mrashall MD Med Refill 10/01/2024 Refill [facility] [address], [place] [phone] Eddie Marshall MD Chronic pain syndrome 09/30/2024 2:30 PM EDT Office Visit [address] [address] Hannah Paula NP Low hemoglobin (Primary Dx) 09/30/2024 Travel 09/30/2024 Orders Only GENERIC EXTERNAL DATA DEPARTMENT Provider, Generic External Data 09/28/2024 Orders Only GENERIC EXTERNAL DATA DEPARTMENT Provider, Generic External Data 09/27/2024 Telephone [facility] [address] [place] [phone] Matilda Millan, MICROELECTRONICS ENGINEER follow up 09/27/[address] [address] Eddie Marshall MD ER Follow-up 09/26/[address] [address] Eddie Marshall MD Durable Medical Equipment 09/24/[address] [phone] Eddie Marshall MD Durable Medical Equipment (Hip protectors) 09/24/2024 Telephone [facility] [address], [place] [phone] Eddie Marshall MD DME Transport Chair 09/20/2024 Orders Only [facility] External Provider, [facility] 09/19/2024 Telephone [facility] [address] [facility] [place] [address] Eddie Marshall MD Call Back Request 09/15/2024 Refill [facility] [address] [facility] [place] [address] Eddie Marshall MD 09/11/2024 Telephone [facility] [address] [facility] [place] [phone] Eddie Marshall MD Durable Medical Equipment 09/10/2024 9:45 AM EDT Office Visit [facility] [place] [address] Mckenzie Trent FNP Chronic pain syndrome (Primary Dx); senior living (current) use of opiate analgesic 09/10/2024 Travel 09/09/2024 Telephone [facility] [place] [place] [address] Eddie Marshall MD 09/05/2024 Refill [facility] [place] [place] [address] Eddie Marshall MD Chronic pain syndrome 08/27/2024 Orders Only GENERIC EXTERNAL DATA DEPARTMENT Provider, Generic External Data 08/26/2024 Orders Only [facility] External Provider, [facility] 08/19/2024 Refill [facility] [place] [address] Eddie Marshall MD 08/14/2024 Orders Only GENERIC EXTERNAL DATA DEPARTMENT Provider, Generic External Data 08/13/2024 Telephone [facility] [address] [facility] [place] [address] Eddie Marshall MD Appointment Request 08/09/2024 Telephone [facility] [place] [address] Sophie Marie MA september recalls 08/09/2024 Telephone [facility] [address] [place] [address] Sophie Marie MA september recalls 08/09/2024 Refill [facility] [address] [facility] [place] [address] Eddie Marshall, MD Chronic pain syndrome from Last 3 Months Immunizations Immunization Administration Dates Next Due Influenza injectable quadriv alent IIV4 with preservative 04/07/2016 Influenza, IIV3, injectable 03/23/2015,1 ,03/08/2013,04/06,05/01/2008,04/19/2007,05/10/2006 ,03/15/2005 Novel [id number], preservative-free 05/22/2009 Pneumococcal Polysaccharide PPSV23 07/11/2013, TD [...] 9:45 AM EDT Office Visit [facility] [address] [place] [phone] Health Maintenance Due Date Last Done Comments [...] without long-term current use of insulin ([facility]) POCT GLUCOSE Routine 10/29/2024 2:27 PM EDT Controlled type 2 diabetes mellitus with complication, without long-term current use of insulin ([facility]) CBC WITH AUTO DIFFERENTIAL Routine [...] 09/10/2024 1:29 PM EDT Chronic pain syndrome senior living (current) use of opiate analgesic CT CHEST [...] without long-term current use of insulin ([facility]) ALBUMIN, RANDOM URINE W/CREATININE Routine 01/16/2024 9:35 AM EDT Primary hypertension HM DIABETES EYE EXAM Routine 05/16/2023 HEPATITIS PANEL, GENERAL Routine 11/18/2022 2:07 PM EDT Diarrhea, unspecified type from Last 3 Months or Most Recently Relevant to Health Maintenance Results * (ABNORMAL) Urinalysis, Complete, with Reflex to Culture (11/05/2024 11:16 AM EDT) Color Urine Yellow [facility] Appearance Urine Cloudy [facility] PH 6.5 5.0 - 9.0 [facility] Glucose Urine UA Negative Negative mg/dL [facility] Urine Blood Negative Negative [facility] Specific [place] - Urine 1.015 1.005 - 1.025 [facility] Urine Protein Negative Neg-Trace mg/dL [facility] Urine Ketones Negative Negative mg/dL [facility] Nitrite Urine Negative Negative [facility] Leukocyte Esterase Urine Moderate (2+)(A) Negative [facility] RBC Urine 0-2 0 - 2 /HPF [facility] Urine WBC 21-50(A) 0 - 5 /HPF [facility] Urine Squamous Epithelial Cell 3-5 0 - 2 /HPF [facility] Urine Bacteria 4+ None Seen [facility] Hyaline Casts, Urine 0-2 0 - 2 /LPF [facility] 11/05/2024 11:1 6 AM EDT 11/05/2024 11:25 AM EDT Narrative [facility] - 11/05/2024 11:35 AM EDT Urine, Clean Catch us Generic External Data Provider LAB URINE ORDERAB LES Final Result Performing Organization Address [facility]/State/ZIP Co de Phone Number [facility] [address] [place] [address] [phone] * POCT HGB A1C (10/29/2024 2:29 PM EDT) Pathologist [facility] Hemoglobin A1C 5.4 4.0 - 6.0 % [employer] Media Lot # [id number] Lot# Expiration Date Blood 10/29/2024 2:29 PM EDT Eddie Name POINT OF CARE TEST ENTER/EDIT OR DERABLES Final Result * POCT Glucose (10/29/2024 2:27 PM EDT) Pathologist [facility] Glucose Blood, POC 122 60 - 200 mg/dL [employer] Lot # [id number] Lot# Expiration Date 100,72 Blood Capillary blood specimen / Unknown 10/29/2024 2:27 PM EDT us Eddie Name POINT OF CARE TEST ENTER/EDIT OR DERABLES Final Result * (ABNORMAL) CBC auto differential (10/04/2024 10:50 AM EDT) Only the most recent of2 resultswithin the time period is included. [facility] White Blood Count 8.9 4.8 - 10.8 X10*3/uL [facility] Red Blood Count 3.73(L) 4.20 - 5.50 X10*6/uL [facility] Hemoglobin 8.7(L) 12.0 - 16.0 g/dl [facility] Hematocrit 29.7(L) 37.0 - 47.0 % [facility] Mean Corpuscular Volume 79.6(L) 80.0 - 98.0 fL [facility] Mean Corpuscular Hemoglobin 23.3(L) 27.0 - 33.0 pg [facility] Mean Corpuscular HGB Conc 29.3(L) 31.0 - 35.0 g/dl [facility] Red Cell Distribution Width 20.4(H) 11.0 - 16.0 % [facility] Platelet Count 440(H) 160 - 400 X10*3/uL [facility] Mean Platelet Volume 9.9 9.4 - 12.3 fL [facility] Neutrophils Percent Auto 67.6 45 - 73 % [facility] Imm Gran Pct Auto 0.3 0.0 - 0.4 % [facility] Lymphocytes Percent Auto 20.0 20 - 40 % [facility] Monocytes Percent Auto 9.3 2 - 11 % [facility] Eosinophils Percent Auto 2.0 0 - 4 % [facility] Basophils Percent Auto 0.8 0 - 2 % [facility] NRBC Pct Auto 0.0 0.0 - 0.2 /100WBC [facility] Neutrophils Absolute Auto 6.0 2.0 - 8.3 x10*3/uL [facility] Imm Gran Abs Auto 0.03 0.00 - 0.03 X10*3/uL [facility] Lymphocytes Absolute Auto 1.8 1.2 - 4.9 X10*3/uL [facility] Monocytes Absolute Auto 0.8 0.1 - 1.2 X10*3/uL [facility] Eosinophils Absolute Auto 0.2 0.0 - 0.4 X10*3/uL [facility] Basophils Absolute Auto 0.1 0.0 - 0.2 X10*3/uL [facility] NRBC Abs Auto 0.000 0.0 - 0.012 X10*3/uL [facility] Blood Venous blood specimen / Unknown 10/04/2024 10:50 AM EDT 10/04/2024 1:14 PM EDT us Hannah Paula NP LAB BLOOD ORDERABLES Final Resu lt [facility] [address] [place] [address] [phone] * Phosphate (As Phosphorus) (09/30/2024 11:00 AM EDT) Only the most recent of2 resultswithin the time period is included. Phosphorus 3.0 2.7 - 4.5 mg/dL [facility] 09/30/2024 11:0 0 AM EDT 09/30/2024 11:06 AM EDT Generic External Data Provider LAB BLOOD ORDERAB LES Final Result Performing Organization Address [facility] de Phone Number [facility] [address] [place] [phone] * OBSX1 (09/28/2024 5:12 PM EDT) Pathologist [facility] OBS1 NEGATIVE NEGATIVE [facility] 09/28/2024 5:12 PM EDT 09/28/2024 5:20 PM EDT Generic External Data Provider LAB BLOOD ORDERAB LES Final Result Performing Organization Address [facility] de Phone Number [facility] [address] [place] [phone] * Prothrombin Time-INR (09/28/2024 4:02 PM EDT) [facility] Prothrombin Time 11.6 10.9 - 12.4 SEC [facility] INTERNATIONAL NORM RATIO 1.0 0.9 - 1.1 [facility] Comment:INTERNATIONAL NORMAL IZED RATIO (INR) [...] ORDERAB LES Final Result Performing Organization Address City/[facility]/ZIP Co de Phone Number [facility] [address] [place] [address] [phone] * (ABNORMAL) Basic Metabolic Panel (09/28/2024 4:02 PM EDT) Sodium 138 135 - 145 mmol/L [facility] Potassium 4.2 3.3 - 5.1 mmol/L [facility] Chloride 104 96 - 108 mmol/L [facility] Carbon Dioxide 25 22 - 29 mmol/L [facility] Anion Gap 13 12 - 20 [facility] Urea Nitrogen (BUN) 21(H) 9 - 16 mg/dL [facility] Creatinine, Serum 0.66 0.5 - 1.4 mg/dL [facility] Creatinine Clr Calc Pharmacy 62.2 [facility] Comment:Provided height and weight: 157.48 cm,63 kg.eGFR (calculated from the MDRD study equation) and eCrCl(calculated from the Cockcroft-Gault equation) are based ondifferent parameters and may not yield comparable results.If eCrCl result is absurd, please check patient'sheight/weight. Estimated Glomerular Filt Rate >60 [facility] Comment:Chronic Kidney Disea se: Estimated GFR < 60 mL/min/1.41u5Paajtm Kidney Disease: Estimated GFR < 15 mL/min/1.73m2 Glucose 131(H) 60 - 115 mg/dL [facility] Calcium 9.2 8.4 - 10.2 mg/dL [facility] 09/28/2024 4:02 PM EDT 09/28/2024 4:06 PM EDT Generic External Data Provider LAB BLOOD ORDERAB LES Final Result Performing Organization Address City/[facility]/ZIP Co de Phone Number [facility] [address] [place] [address] [phone] * XR Chest 2 Views (09/20/2024 10:12 AM EDT) Anatomical Region Laterality Modality Chest Radiographic Tanya ging 09/20/2024 10:1 2 AM EDT Narrative 09/20/2024 10:27 AM EDT ? [facility] ?[address] ?[place] [address] ?XRay Report ? Signed ? Patient: Celeste Abad ?MR#: [id number] ?? 4 ? : 1945 ?Acct:[id number] ? Age/Sex: 78 / F ?ADM Date: 09/20/24 ? Loc: HO.XRAY ? Attending Dr: Maria Esther Blum SYSTEMS TECHNICIAN ? Ordering Physician: Maria Esther Blum NP ?? Date of Service: 09/20/24 ?? Procedure(s): XR chest 2V ?? Accession Number(s): [id number] ? cc: Name,Eddie GILMORE; Maria Esther Blum [...] DD/ 1012 ? TD/TT: 09/20/24 1017 ? Nuts And Bolts Assembler: ? Procedure Note Sahil Tellez - 09/20/2024 [facility] [address] [address] XRay Report Signed Patient: Celeste AbadMR#: [id number] 4 : 7Acct:[id number] Age/Sex: 78 / FADM Date: 09/20/24 Loc: HO.XRAY Attending Dr: Maria Esther Blum NP Ordering Physician: Maria Esther Blum NP Date of Service: 09/20/24 Procedure(s): XR chest 2V Accession Number(s): [id number] cc: Name,Eddie GILMORE; Maria Esther Blum NP [...] 09/20/24 1024 DD/ 1012 TD/TT: 09/20/24 1017 Nuts And Bolts Assembler: [facility] External Provider IMG XR PROCEDURES Final [...] Deluca LindaZulyOSKAR - 09/10/2024 1:30 PM EDT Lot:[id number] Exp: 02/06/2028 us Mckenzie Trent DESK ASSISTANT POINT OF CARE TEST ENTER/EDIT ORDERABLES Final Result * CT Chest w/o Contrast (08/27/2024 2:12 PM EDT) Anatomical Region Laterality Modality Body, Chest Computed Tomogra phy 08/27/2024 2:12 PM EDT Narrative 08/27/2024 2:14 PM EDT ? [facility] ?[address] ?[place] [address] ? CT Scan Report ? Signed ? Patient: Celeste Abad ?MR#: [id number] ?? 4 ? : 1945 ?Acct:[id number] ? Age/Sex: 78 / F ?ADM Date: 08/26/24 ? Loc: HO.CT ? Attending Dr: Maria Esther Blum SYSTEMS TECHNICIAN ? Ordering Physician: Maria Esther Blum NP ?? Date of Service: 08/26/24 ?? Procedure(s): CT chest wo IV con ?? Accession Number(s): [id number] ? cc: Name,Eddie GILMORE; Maria Esther Blum NP ? Report Number: ?? [id number]: Total DLP = ??208.00 mGy-cm ? CLINICAL [...] DD/ 1412 ? TD/TT: 08/27/24 1412 ? Nuts And Bolts Assembler: ? Procedure Note Donotuseinterpreter, Image - 08/27/[address] [address] [address] Scan Report Signed Patient: Celeste AbadMR#: [id number] 4 : 1945cct:[id number] Age/Sex: 78 / FADM Date: 08/26/24 Loc: HO.CT Attending Dr: Maria Esther Blum NP Ordering Physician: Maria Esther Blum NP Date of Service: 08/26/24 Procedure(s): CT chest wo IV con Accession Number(s): [id number] cc: Eddie Marshall MD; Maria Esther Blum NP Report Number: [id number]: Total DLP = 208.00 mGy-cm CLINICAL HISTORY: [...] 08/27/24 1413 DD/ 1412 TD/TT: 08/27/24 1412 Nuts And Bolts Assembler: us [facility] External Provider IMG CT PROCEDURES Final Result * (ABNORMAL) Iron And Total Iron Binding Capacity (08/27/2024 1:25 PM EDT) Iron 14(L) 30 - 160 mcg/dL [facility] Total Iron Binding Capacity 295 228 - 428 mcg/dL [facility] Percent Iron Saturation 5(L) 15 - 50 % [facility] Unsaturated Iron Binding 281 ug/dL [facility] 08/27/2024 1:25 PM EDT 08/27/2024 1:25 PM EDT us Generic External Data Provider LAB BLOOD ORDERAB LES Final Result Performing Organization Address City/[facility]/ZIP Co de Phone Number [facility] [address] [place] [phone] [phone] * (ABNORMAL) CBC (08/27/2024 1:25 PM EDT) White Blood Count 9.0 4.8 - 10.8 X10*3/uL [facility] Red Blood Count 4.06(L) 4.20 - 5.50 X10*6/uL [facility] Hemoglobin 10.0(L) 12.0 - 16.0 g/dl [facility] Hematocrit 33.1(L) 37.0 - 47.0 % [facility] Mean Corpuscular Volume 81.5 80.0 - 98.0 fL [facility] Mean Corpuscular Hemoglobin 24.6(L) 27.0 - 33.0 pg [facility] Mean Corpuscular HGB Conc 30.2(L) 31.0 - 35.0 g/dl [facility] Red Cell Distribution Width 16.3(H) 11.0 - 16.0 % [facility] Platelet Count 393 160 - 400 X10*3/uL [facility] Mean Platelet Volume 9.4 9.4 - 12.3 fL [facility] NRBC Pct Auto 0.0 0.0 - 0.2 /100WBC [facility] NRBC Abs Auto 0.000 0.0 - 0.012 X10*3/uL [facility] 08/27/2024 1:25 PM EDT 08/27/2024 1:25 PM EDT us Generic External Data Provider LAB BLOOD ORDERAB LES Final Result Performing Organization Address City/[facility]/ZIP Co de Phone Number [facility] [address] [place] [address] [phone] * Ferritin (08/27/2024 1:25 PM EDT) Ferritin 35 10 - 250 ng/mL [facility] 08/27/2024 1:25 PM EDT 08/27/2024 1:25 PM EDT us Generic External Data Provider LAB BLOOD ORDERAB LES Final Result Performing Organization Address [facility] de Phone Number [facility] [address] [place] [address] [phone] * FL Esophagus Barium Swallow w/Air (08/14/2024 9:52 AM EST) Anatomical Region Laterality Modality Head, Neck Radiographic Tanya ging 08/14/2024 9:52 AM EST Narrative 08/15/2024 4:55 PM EST ? [facility] ?[address] ?[place] [address] ? Fluoroscopy Report ? Signed ? Patient: Celeste Abad ?MR#: [id number] ?? 4 ? : 1945 ?Acct:[id number] ? Age/Sex: 78 / F ?ADM Date: 08/14/24 ? Loc: HO.XRAY ? Attending Dr: Julia Li MD ? Ordering Physician: Julia Li MD ?? Date of Service: 08/14/24 ?? Procedure(s): FL barium swallow with air ?? Accession Number(s): [id number] ? cc: Eddie Marshall MD; Julia Li [...] DD/ 0952 ? TD/TT: 08/14/24 1020 ? Nuts And Bolts Assembler: ? Procedure Note Donotuseinterpreter, Image - 08/15/[address] [address] Fluoroscopy Report Signed Patient: Celeste AbadMR#: [id number] 4 : 7Acct:[id number] Age/Sex: 78 / FADM Date: 08/14/24 Loc: HO.XRAY Attending Dr: Julia Li MD Ordering Physician: Julia Li MD Date of Service: 08/14/24 Procedure(s): FL barium swallow with air Accession Number(s): [id number] cc: Eddie Marshall MD; Julia Li MD [...] 08/15/24 1654 DD/ 0952 TD/TT: 08/14/24 1020 Nuts And Bolts Assembler: [facility] External Provider IMG FLU OROSCOPY PROCEDURES Final Result * Immunofixation (ALEXANDER), Urine (08/14/2024 9:41 AM EST) ALEXANDER Interpretation SEE NOTE [facility] Comment:Normal pattern. No m onoclonal proteins detected.The supplier of the testing reagents for this assayhas changed. Detection of small monoclonal proteins mayvary by test system.THIS TEST WAS PERFORMED AT:[facility] [place] [phone] PAYNE MD 08/14/2024 9:41 AM EST 08/14/2024 10:39 AM EST us Generic External Data Provider LAB URINE ORDERAB LES Final Result Performing Organization Address [facility]/ZIP Co de Phone Number [facility] [address] [place] [phone] * (ABNORMAL) Protein, Total and Protein??Electrophoresis (08/14/2024 9:37 AM EST) Prot Elec - Total Protein 6.7 6.1 - 8.1 g/dL [facility] Prot Elec - Albumin 3.2(A) 3.8 - 4.8 g/dL [facility] Prot Elec - Alpha1 0.4(A) 0.2 - 0.3 g/dL [facility] Prot Elec - Alpha2 1.1(A) 0.5 - 0.9 g/dL [facility] Prot Elec - Beta 1 0.5 0.4 - 0.6 g/dL [facility] Prot Elec - Beta 2 0.5 0.2 - 0.5 g/dL [facility] Prot Elec - Gamma 1.0 0.8 - 1.7 g/dL [facility] PES - Abn Protein Band 1 [facility] PES-Abn Protein Band 2 [facility] PES-Abn Protein Band 3 [facility] Prot Elec - Interpretation SEE NOTE [facility] Comment:Evaluation is consis tent with an acute inflammatorypattern.THIS TEST WAS PERFORMED AT:[id number] [place] [phone] PAYNE MD 08/14/2024 9:37 AM EST 08/14/2024 9:41 AM EST us Generic External Data Provider LAB BLOOD ORDERAB LES Final Result Performing Organization Address [facility]/ZIP Co de Phone Number [facility] [address] [place] [phone] * (ABNORMAL) Lipid Panel, Standard (01/16/2024 9:40 AM EDT) Triglycerides 199(H) <150 mg/dL [facility] Comment:Desirable Triglyceri de: less than 150 mg/dLBorderline High Triglyceride 150-199 mg/dLHigh Triglyceride: 200-499 mg/dLVery High Triglyceride: greater than or equal to 5OO mg/dL Cholesterol 150 <200 mg/dL [facility] Comment:Desirable Cholestero l: less than 200 mg/dLBorderline High Cholesterol: 200-239 mg/dLHigh Cholesterol: greater than 239 mg/dL LDL Cholesterol Calculated 63 <100 mg/dL [facility] Comment:Desirable LDL: less than 100 mg/dLNear Optimal/Above Optimal LDL: 110- 129 mg/dLBorderline High LDL: 130-159 mg/dLHigh LDL: 160-189 mg/dLVery High LDL: greater than or equal to 190 mg/dL HDL Cholesterol 48 >40 mg/dL [facility] Comment:Desirable HDL: great er than 40 mg/dL Note: This HDL assay may give artificially low results in patients with liver disease. Blood Venous blood specimen / Unknown 01/16/2024 9:40 AM EDT 01/16/2024 11:20 AM EDT us Eddie Name LAB BLOOD ORDERABLES Final Resul t [facility] [address] [place] [phone] * Albumin, Random Urine W/Creatinine (01/16/2024 9:35 AM EDT) Creatinine, Urine 27.62 mg/dL [facility] Microalbumin Urine <5.0 mg/L [facility] Microalbum Creatinine Ratio Ur TNP <30 ug/mg cr [facility] Comment:Unable to calculate albumin/creatinine ratio due to lowmicroalbumin or creatinine result. Urine (Urine, Random) 01/16/2024 9:35 AM EDT 01/16/2024 11:12 AM EDT us Eddie Marshall MD LAB URINE ORDERABLES Final Resul t [facility] [address] [place] [phone] * Hm Diabetes Eye Exam (05/16/2023) Eye Exam Normal Normal Eddie Marshall MD HEALTH MAINTENANCE Final Result * (ABNORMAL) Hepatitis Panel, General (11/18/2022 2:07 PM EDT) Hepatitis A Antibody Total REACTIVE( A) NON-REACT NAHID [facility] [place] [facility] Comment: For additional information, please refer to http://[employer].OLSET/faq/TTF568 (This link is being provided for informational/ educational purposes only.) Hepatitis B Surface Antibody QL NON-REACT NAHID NON-REACT NAHIDTripConnect [facility] Hepatitis B Surface Ag NON-REACT NAHID NON-REACT NAHID [facility] [place] [employer]aning Hepatitis B Core Antibody Total NON-REACT NAHID NON-REACT NAHIDTripConnect [facility]ion Hepatitis C Antibody NON-REACT NAHID NON-REACT NAHID [facility] [place] Index 0.07 <1.00 [facility] [place] [facility] Comment: HCV antibody was non-reactive. There is no laboratory evidence of HCV infection. In most cases, no further action is required. However, if recent HCV exposure is suspected, a test for HCV RNA (test code 76467) is suggested. For additional information please refer to http://[employer].OLSET/faq/BQC82z8 (This link is being provided for informational/ educational purposes only.) 11/18/2022 2:07 PM EDT 11/18/2022 2:09 PM EDT Narrative [facility] - 11/19/2022 6:51 AM EDT COLLECTION KIT GIVEN TO PATIENT. PATIENT ADVISED TO RETURN. us Mckenzie RODRIGUEZ LAB BLOOD ORDERABLES Final Res ult [facility] [address] [facility], [facility], [place] [address] [facility] [address] [place] [address] from Last 3 Months or Most Recently Relevant to Health Maintenance Insurance [employer] [place] [id number] Care Teams Microfilm Camera Operator Relationship Specialty Start Date End Date Name, MD Eddie [address] [place] [phone] PCP - General Family Medicine 09/16/15 [place] A 07/01/24
--- OUTSIDE RECORDS SUMMARY | 2024-11-05 13:34 | XMS_ITS | Encounter Summary ---
Author Organization 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 [phone] documented in this encounter Plan of Treatment Upcoming Encounters Date Type Department Care Team (Late st Contact Info) Description 11/12/2024 9:45 AM EDT Office Visit [facility] [address] [place] [phone] Scheduled Orders Name Type Priority Associated Diagnoses [...] as of this encounter Care Teams Lead Java J2Ee Developer Relationship Specialty Start Date End Date Name, MD Eddie [address] [place] [address] PCP - General Family Medicine 09/16/15 Jerica SEN 07/01/24 documented as of this encounter
--- OUTSIDE RECORDS SUMMARY | 2024-11-05 13:34 | XMS_ITS | Encounter Summary ---
Author Organization [employer] Address [address] [place] [address] 7 [place] [address] Care Team Providers Care Try Out Person Name Role Phone Name, Eddie GILMORE Primary Care Provider [phone] Reason for Visit * Reason Comments Med Refill Encounter Details Date Type Department Care Team (Late Contact Info) Description 01/04/2023 Refill [facility] [address] [place] [phone] Name, MD Eddie [address] [place] [phone] Gastroesophageal reflux disease, unspecified whether esophagitis present [...] Description 11/12/2024 9:45 AM EDT Office Visit [facility] [address] [place] [address] documented as of this encounter Visit Diagnoses Diagnosis Gastroesophageal reflux disease, unspecified whether esophagitis present documented in this encounter Additional Health Concerns Assessment Noted Time PHQ-9 Depression Total Score: 10 023 1:16 PM EDT documented as of this encounter Care Teams Try Out Person Relationship Specialty Start Date End Date Name, MD Eddie [address] [place] [address] PCP - General Family Medicine 09/16/15 Jerica A 07/01/24 documented as of this encounter
--- OUTSIDE RECORDS SUMMARY | 2024-11-05 13:34 | XMS_ITS | Encounter Summary ---
Author Organization [employer] Address [address] [place] [address] 7 [place] [address] Care Team Providers Care Fashion Editor Name Role Phone Name, Eddie GILMORE Primary Care Provider [phone] Reason for Visit * Reason Comments Med Refill Encounter Details Date Type Department Care Team ([facility] st Contact Info) Description 05/08/2023 Refill [facility] [address] [place], [place] [phone] Name, MD Eddie [address] [place] [address] Chronic pain syndrome Social History Tobacco Use [...] Description 11/12/2024 9:45 AM EDT Office Visit [facility] [address] [place] [address] documented as of this encounter Visit Diagnoses Diagnosis Chronic pain syndrome documented in this encounter Additional Health Concerns Assessment Noted Time PHQ-9 Depression Total Score: 10 023 1:16 PM EDT documented as of this encounter Care Teams Fashion Editor Relationship Specialty Start Date End Date Name, MD Eddie [address] [place] [address] PCP - General Family Medicine 09/16/15 [facility] documented as of this encounter
--- OUTSIDE RECORDS SUMMARY | 2024-11-05 13:34 | XMS_ITS | Encounter Summary ---
Author Organization [employer] Address [address] [place] [address] 7 [place] [address] Care Team Providers Care Regional Marketing Director Name Role Phone Name, Eddie GILMORE Primary Care Provider [phone] Reason for Visit * Reason Onset Date Comments Medication Question 09/01/2023 Encounter Details Date Type Department Care Team ([facility] st Contact Info) Description 09/01/2023 Telephone [facility] [address] [place], [place] [phone] Name, MD Eddie [address] [place] [address] Medication Question Social History Tobacco Use Types [...] an add on. Please contact pharmacy at [phone]. documented in this encounter Plan of Treatment Upcoming Encounters Date Type Department Care Team (Late st Contact Info) Description 11/12/2024 9:45 AM EDT Office Visit [facility] [address] [place] [address] documented as of this encounter Visit Diagnoses Not on filedocumented in this encounter Additional Health Concerns Assessment Noted Time PHQ-9 Depression Total Score: 10 023 1:16 PM EDT documented as of this encounter Care Teams Regional Marketing Director Relationship Specialty Start Date End Date Name, MD Eddie [address] [place] [address] PCP - General Family Medicine 09/16/15 Jerica A 07/01/24 documented as of this encounter
--- OUTSIDE RECORDS SUMMARY | 2024-11-05 13:34 | XMS_ITS | Encounter Summary ---
Author Organization [employer] Address [address] [place] [address] 7 [place] [address] Care Team Providers Care Hydrography Teacher Name Role Phone Name, Eddie GILMORE Primary Care Provider [phone] Reason for Visit * Reason Onset Date Comments Medication Question 09/05/2023 Encounter Details Date Type Department Care Team ([facility] st Contact Info) Description 09/05/2023 Telephone [facility]INE [address] [place], [place] [phone] Name, MD Eddie [address] [place] [address] Medication Question Social History Tobacco Use Types [...] Description 11/12/2024 9:45 AM EDT Office Visit [facility] [address] [place] [address] documented as of this encounter Visit Diagnoses Not on filedocumented in this encounter Additional Health Concerns Assessment Noted Time PHQ-9 Depression Total Score: 10 023 1:16 PM EDT documented as of this encounter Care Teams Hydrography Teacher Relationship Specialty Start Date End Date Name, MD Eddie [address] [place] [address] PCP - General Family Medicine 09/16/15 Jerica SEN 07/01/24 documented as of this encounter
--- OUTSIDE RECORDS SUMMARY | 2024-11-05 13:34 | XMS_ITS | Encounter Summary ---
Author Organization [employer] Address [address] [place] [address] 7 [place] [address] Care Team Providers Care Endoscope Technician Name Role Phone Name, Eddie GILMORE Primary Care Provider [phone] Encounter Details Date Type Department Care Team [...] EDT Office Visit [facility] [address] [place] [address] documented as of this encounter Procedures Procedure Name Priority Date/Time Associated Diagnosis Comments URINALYSIS, COMPLETE, WITH REFLEX TO CULTURE Routine 11/05/2024 11:16 AM EDT documented in this encounter Results * (ABNORMAL) Urinalysis, Complete, with Reflex to Culture (11/05/2024 11:16 AM EDT) Color Urine Yellow [facility] Appearance Urine Cloudy [facility] PH 6.5 5.0 - 9.0 [facility] Glucose Urine UA Negative Negative mg/dL [facility] Urine Blood Negative Negative [facility] Specific [place] - Urine 1.015 1.005 - 1.025 [facility] Urine Protein Negative Neg-Trace mg/dL [facility] Urine Ketones Negative Negative mg/dL [facility] Nitrite Urine Negative Negative [facility] Leukocyte Esterase Urine Moderate (2+)(A) Negative [facility] RBC Urine 0-2 0 - 2 /HPF [facility] Urine WBC 21-50(A) 0 - 5 /HPF [facility] Urine Squamous Epithelial Cell 3-5 0 - 2 /HPF [facility] Urine Bacteria 4+ None Seen [facility] Hyaline Casts, Urine 0-2 0 - 2 /LPF [facility] 11/05/2024 11:1 6 AM EDT 11/05/2024 11:25 AM EDT Narrative [facility] - 11/05/2024 11:35 AM EDT Urine, Clean Catch us Generic External Data Provider LAB URINE ORDERAB LES Final Result Performing Organization Address City/State/[facility] Co de Phone Number [facility] [address] [place] [phone] documented in this encounter Visit Diagnoses Not on filedocumented in this encounter Additional Health Concerns Assessment Noted Time PHQ-9 Depression Total Score: 9 05/10/20 24 11:56 AM EST documented as of this encounter Care Teams Endoscope Technician Relationship Specialty Start Date End Date Name, MD Eddie [address] [place] [address] PCP - General Family Medicine 09/16/15 [facility] 07/01/24 documented as of this encounter
--- OUTSIDE RECORDS SUMMARY | 2024-11-05 13:34 | XMS_ITS | Encounter Summary ---
Author Organization [employer] Address [address] [place] [address] [place] [address] Care Team Providers Care Etl Manager Name Role Phone Name, Eddie GILMORE Primary Care Provider [phone] Reason for Visit * Reason Onset Date Comments Hospital Follow-up 11/10/2022 Encounter Details Date Type Department Care Team ([facility] st Contact Info) Description 11/10/2022 Refill [facility] [address] [place] [address] [phone] Name, MD Eddie [address] [place] [address] Social History Tobacco Use Types Packs/Day Years [...] Jackman Sent: 11/21/2022 5:23 PM EDT To: [facility] Team Nurses Hi team! Sent this pt to the ED over the weekend for Hgb 7. Got admitted and looks like recently discharged. Can you please outreach her for status check and sched HDF w/ DrRod Name? Thank you!! * Telephone Encounter - Suzette Singh RN - 11/22/2022 11:10 AM EDT T/C to [phone] to schedule HDF apt. No answer. LVM to call back on [phone]. ----- Message from Amber Roger RN sent at 11/22/2022 9:06 AM EDT ----- ----- Message ----- From: DENIS Jackman Sent: 11/21/2022 5:23 PM EDT To: [facility] Team Nurses Hi team! Sent this [...] 9:45 AM EDT Office Visit [facility] [address] [place] [address] documented as of this encounter Visit Diagnoses Not on filedocumented in this encounter Care Teams Etl Manager Relationship Specialty Start Date End Date Name, MD Eddie [address] [place] [address] PCP - General Family Medicine 09/16/15 [facility] 07/01/24 documented as of this encounter
[2024-11-07 21:48] LABS: TS Negative Control Passed; TS Panel A 2; TS Panel B 3; TS Positive Control Passed; TSpotTB Negative (Negative)
== END 2024-11-05 12:30 | disposition home or self-care (01) ==
LOC: HO.HHCL 12:29
PROVIDERS: Visit Provider Internal Medicine Geriatric Medicine
DX: Z11.1 Encounter for screening for respiratory tuberculosis (principal); D72.829 Elevated white blood cell count, unspecified; Z87.440 Personal history of urinary (tract) infections; R82.90 Unspecified abnormal findings in urine
CPT/HCPCS: 36415; 81001; 86481; 87086; 87088; 87186

== ENCOUNTER 2024-11-25 13:11 | Outpatient (REF) | payer MEDICARE, SELFPAY ==
[2024-11-25 13:58] LABS: Creatinine, mg/dL 49.41
[2024-11-25 14:01] LABS: Creatinine, 24Hr Urine 0.8 G/Day (1.0-2.0); Total Volume 24 Hour Urine 1550 mL
--- OUTSIDE RECORDS SUMMARY | 2024-11-25 14:53 | XMS_ITS | Clinical Summary ---
Author Organization [employer] Address [address] [place] [address] 7[address] [place] [address] Care Team Providers Care Taker Off Drying Kiln Name Role Phone Name, Eddie GILMORE Primary Care Provider [phone] Allergies Active Allergy Reactions Criticality Noted Date Comments Gluten Meal Unknown 06/16/2022 Gramineae Pollens Runny nose 02/02/2024 Latex 02/02/2024 Other Reaction(s): ekg stickies cused bleeding on skin after several days Esomeprazole Hives Medium 03/22/2024 Within past month she was on for about 3 days and developed SOB, hives and vomiting Shellfish Allergy Unknown 06/16/2022 scallops Medications * This document contains information received from the source organization and may not represent a complete record from that organization. Homeopathic Products (Arnicare) gel Applied twice daily 06/02/20 22 Active amLODIPine (Norvasc) 2.5 MG tablet TAKE 1 TABLET BY MOUTH ONCE DAILY 06/01/20 22 Active Blood Glucose Monitoring Suppl ([employer] Verio Flex System) w/Device kit USE DIRECTED [...] in the morning. 01/10/20 23 Active Lancets (Estates[employer].comuch Delica Plus [id number]) miscIndications :Controlled type 2 diabetes mellitus with complication, without long-term current use of insulin ([facility]) USE TO CHECK BLOOD SUGAR TWICE A DAY 100 each 5 09/15/19 24 Active glucose blood (Estates[employer].comuch Verio) test stripIndication s:Controlled type 2 diabetes mellitus with complication, without long-term current use of insulin ([facility]) CHECK BY FINGERSTICK TWICE DAILY 50 strip [...] eorder (will not trigger notification to Pharmacy)) cefixime (Suprax) capsule Take 1 capsule (400 mg) by mouth Once per day for 10 days. 10 capsule 11/07/192024 Active Problems Problem Noted Date Diagnosed Date Chronic obstructive pulmonary disease 10/29/2024 Overview (10/29/2024): emphysema Pulmonary nodules 10/29/2024 Atherosclerosis of superior mesenteric artery Epistaxis 08/02/2024 Assessment & Plan (08/02/2024 3:41 PM EST): Will refer stat to ENT for cauterization, possible [employer] SK[employer]S CONSULTANT scope Recommend anterior nasal packing if she is bleeding heavily terminal gauger (current) use of opiate analgesic 03/20 Overview (09/10/2024): Dx: chronic pain syndrome/back pain Rx: Percocet 5/325 every 8 hours Last IN HOME AIDE agreement:03/22/24 Tier II (visit every 3 months) Additional considerations: mobility issues, using scooter Assessment & Plan (11/12/2024 1:58 PM EDT): Timeline: - 09/10/24: Group visit utox/pill count wnl - 11/12/24: Group visit utox/pill count wnl Assessment & Plan (09/10/2024 2:22 PM EDT): Timeline: - 09/10/24: Group visit utox/pill count wnl Chronic pain syndrome 03/05/2024 Assessment & Plan (11/12/2024 1:56 PM EDT): - Pt attended and participated in group - Utox and pill count as expected - Continue to explore and use non-pharmacological means of pain management - Follow up in 1-2 months as desired Assessment & Plan (09/10/2024 2:21 PM EDT): [...] that is chronic 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 She understands this is the chronic [...] 02/05/2024 Preoperative cardiovascular examination 11/28/2022 02/05/2024 Encounters * This document contains information received from the source organization and may not represent a complete record from that organization. Date Type Department Care Team Description 11/12/2024 9:45 AM EDT Office Visit [facility] [place] [address] Mckenzie Trent FNP Chronic pain syndrome (Primary Dx); senior living (current) use of opiate analgesic 11/12/2024 Travel 11/06/2024 Results Follow-Up [facility] [place] [address] Eddie Marshall MD Urinalysis, Complete, with Reflex to Culture, Culture, Urine, Routine 11/05/2024 Orders Only GENERIC EXTERNAL DATA DEPARTMENT Provider, Generic External Data 11/04/2024 Telephone [facility] [place] [address] Eddie Marshall MD Call Back Request 11/04/2024 Refill [facility] [place] [address] Eddie Marshall MD Chronic pain syndrome 11/01/2024 Telephone [facility] [place] [address] Eddie Marshall MD Med Refill 10/29/2024 2:30 PM EDT Office Visit [facility] [place] [address] Eddie Marshall MD Iron deficiency anemia due to chronic blood loss (Primary Dx); Chronic insomnia; Controlled type 2 diabetes mellitus with complication, without long-term current use of insulin ([facility]); Chronic obstructive pulmonary disease, unspecified COPD type ([facility]); Pulmonary nodules; Former smoker 10/29/2024 Travel 10/28/2024 Telephone [facility] [place] [address] Eddie Marshall MD CHART PREP 10/27/2024 Refill [facility] [place] [address] Eddie Marshall MD 10/03/2024 Refill [facility] [place] [address] Eddie Marshall MD 10/03/[address] [address] Eddie Marshall MD Med Refill 10/01/2024 Refill [facility] [address] [place] [address] Eddie Marshall MD Chronic pain syndrome 09/30/2024 2:30 PM EDT Office Visit [address] [address] Hannah Paula NP Low hemoglobin (Primary Dx) 09/30/2024 Travel 09/30/2024 Orders Only GENERIC EXTERNAL DATA DEPARTMENT Provider, Generic External Data 09/28/2024 Orders Only GENERIC EXTERNAL DATA DEPARTMENT Provider, Generic External Data 09/27/2024 Telephone [facility] [address] [place] [phone] Matilda Millan RN ED follow up 09/27/[address] [address] Eddie Marshall MD ER Follow-up 09/26/[address] [address] Eddie Marshall MD Durable Medical Equipment 09/24/[address] [address] Eddie Marshall MD Durable Medical Equipment (Hip protectors) 09/24/2024 Telephone [facility] [address] [place] [address] Eddie Marshall MD DME Transport Chair 09/20/2024 Orders Only [facility] External Provider, [facility] 09/19/[address] [address] Eddie Marshall MD Call Back Request 09/15/[address] [address] Eddie Marshall MD 09/11/[address] [address] Eddie Marshall MD Durable Medical Equipment 09/10/2024 9:45 AM EDT Office Visit [address] [address] Mckenzie Trent FNP Chronic pain syndrome (Primary Dx); senior living (current) use of opiate analgesic 09/10/2024 Travel 09/09/2024 Telephone [facility] [address] [place] [address] Name, MD Eddie 09/05/2024 Refill [facility] [address] [place] [address] Name, MD Eddie Chronic pain syndrome 08/27/2024 Orders Only GENERIC EXTERNAL DATA DEPARTMENT Provider, Generic External Data 08/26/2024 Orders Only [facility] External Provider, [facility] from Last 3 Months Immunizations Immunization Administration Dates Next Due Influenza injectable quadriv alent IIV4 with preservative 04/07/2016 Influenza, IIV3, injectable 03/23/2015,1 ,03/08/2013,04/06,05/01/2008,04/19/2007,05/10/2006 ,03/15/2005 Novel [id number], preservative-free 05/22/2009 Pneumococcal Polysaccharide PPSV23 07/11/2013, TD [...] Care Team (Late st Contact Info) Description 12/10/2024 9:45 AM EDT Office Visit [facility] [address] [place] [phone] 02/19/2025 11:15 AM EDT Office Visit [facility] [address] [place] [phone] NameEddie MD [address] [place] [address] Health Maintenance Due Date Last Done Comments Zoster Vaccines (1 of 2) 1996 Pneumococcal Vaccine: 50+ Years (2 of 2 - PCV) 07/11/2014 07/11/2013, 03/02/2005 DTaP/Tdap/Td Vaccines (1 - Tdap) 03/25/2017 03/24/2017, 03/31/2003 RSV Patients and Patients Aged 60 years or older (1 - 1-dose 75+ series) 2021 COVID-19 Vaccine ( - season) 2024 Diabetes: Foot Exam 10/16/2024 10/17/2023, 10/17/2023, 10/17/2023, Additional history exists Depression Monitoring 11/07/2024 05/10/2024, 024 Diabetes: Urine Protein Screening 01/15/2025 01/16/2024, 09/14/2022 Lipid Panel 01/15/2025 01/16/2024, 0302/2023, 03/18/2020 Alcohol/Substance Use Screening 02/04/2025 02/05/2024 Influenza Vaccine (Season Ended) 2025 04/07/2016, 03/23/2015, 03/27/2014, Additional history exists Diabetes: Hemoglobin A1C 05/01/2025 025, 08/02/2024, 02/05/2024, Additional history exists Eye Exam 05/16/2025 05/16/2023 SDOH Screening 10/29/2025 [...] Comments POCT ADRIAN-14 URINE DRUG SCREEN Routine 11/12/2024 10:14 AM EDT Chronic pain syndrome T-SPOT(R).TB Routine 11/05/2024 12:13 PM EDT Screening for tuberculosis URINALYSIS, COMPLETE, WITH REFLEX TO CULTURE Routine 11/05/2024 11:16 AM EDT CULTURE, URINE, ROUTINE Routine 11/05/2024 12:00 AM EDT POCT GLYCATED HEMOGLOBIN, TOTAL Routine 10/29/2024 2:29 PM EDT Controlled type 2 diabetes mellitus with complication, without long-term current use of insulin ([facility]) POCT GLUCOSE Routine 10/29/2024 2:27 PM EDT Controlled type 2 diabetes mellitus with complication, without long-term current use of insulin ([facility]) CBC WITH AUTO DIFFERENTIAL Routine 10/04/2024 10:50 [...] 09/10/2024 1:29 PM EDT Chronic pain syndrome terminal gauger (current) use of opiate analgesic CT CHEST WO CONTRAST Routine 08/27/2024 2:12 PM EDT FERRITIN Routine 08/27/2024 1:25 PM EDT IRON AND TOTAL IRON BINDING CAPACITY Routine 08/27/2024 1:25 PM EDT CBC Routine 08/27/2024 1:25 PM EDT LIPID PANEL, STANDARD Routine 01/16/2024 9:40 AM EDT Controlled type 2 diabetes mellitus with complication, without long-term current use of insulin ([facility]) ALBUMIN, RANDOM URINE W/CREATININE Routine 01/16/2024 9:35 AM EDT Primary hypertension HM DIABETES EYE EXAM Routine 05/16/2023 HEPATITIS PANEL, GENERAL Routine 11/18/2022 2:07 PM EDT Diarrhea, unspecified type from Last 3 Months or Most Recently Relevant to Health Maintenance Results * POCT ADRIAN-14 Urine Drug Screen (11/12/2024 10:14 AM EDT) Only the most recent of2 resultswithin the time period is included. Oxycodone Screen, Urine Positive Urine Urine specimen obtained by clean catch procedure / Unknown 11/12/2024 10:14 AM EDT Estrellita Francis RN - 11/12/2024 10:14 AM EDT .UTOX cup Lot#[id number] Exp. 04/18/26 Internal Pass Control Mckenzie RODRIGUEZ POINT OF CARE TEST ENTER/EDIT ORDERABLES Final Result * T-SPOT??.TB (11/05/2024 12:13 PM EDT) [facility] T Spot TB Negative Negative [facility] Comment:A negative test resu lt does not exclude the possibilityof exposure to or infection with Mycobacteriumtuberculosis (M. tuberculosis). Patients with recentexposure to TB infected individuals exhibiting anegative T-SPOT.TB result should be considered forretesting within 6 weeks or if other relevant clinicalsymptoms indicate. Results from T-SPOT.TB testing mustbe used in conjunction with each individual'sepidemiological history, current medical status,and results of other diagnostic evaluations.The T-SPOT.TB test is qualitative and results arereported as positive, borderline, or negative, giventhat the test controls perform as expected. In linewith the Centers for Disease Control and Prevention's2010 recommendation to report quantitative measurementsalongside the qualitative result, the laboratoryprovides spot counts for informational purposes only.The T-SPOT.TB test should not be interpreted as aquantitative test. TS PANEL A 2 [facility] TS PANEL B 3 [facility] Negative Control Passed [facility] Positive Control Passed [facility] Comment:For additional infor vimal, please refer tohttp://education.[employer]/faq/OYI774(This link is being provided for informational/educational purposes only.)THIS TEST WAS PERFORMED AT:[place] [place] [address]KTOHRSIANKITA MADDOX MD,PHD 11/05/2024 12:1 3 PM EDT 11/05/2024 1:07 PM EDT us Eddie Marshall MD LAB BLOOD ORDERABLES Final Resul t [facility] [address] [place] [phone] * (ABNORMAL) Urinalysis, Complete, with Reflex to Culture (11/05/2024 11:16 AM EDT) Color Urine Yellow [facility] Appearance Urine Cloudy [facility] PH 6.5 5.0 - 9.0 [facility] Glucose Urine UA Negative Negative mg/dL [facility] Urine Blood Negative Negative [facility] Specific [place] - Urine 1.015 1.005 - 1.025 [facility] Urine Protein Negative Neg-Trace mg/dL [facility] Urine Ketones Negative Negative mg/dL [facility] Nitrite Urine Negative Negative [facility] Leukocyte Esterase Urine Moderate (2+)(A) Negative [facility] RBC Urine 0-2 0 - 2 /HPF [facility] Urine WBC 21-50(A) 0 - 5 /HPF [facility] Urine Squamous Epithelial Cell 3-5 0 - 2 /HPF [facility] Urine Bacteria 4+ None Seen [facility] Hyaline Casts, Urine 0-2 0 - 2 /LPF [facility] 11/05/2024 11:1 6 AM EDT 11/05/2024 11:25 AM EDT Narrative [facility] - 11/05/2024 11:35 AM EDT Urine, Clean Catch us Generic External Data Provider LAB URINE ORDERAB LES Final Result Performing Organization Address City/State/[facility] Co de Phone Number [facility] [address] [place] [phone] * Culture, Urine, Routine (11/05/2024 12:00 AM EDT) Urine Urine specimen obtained by clean catch procedure / Unknown 11/05/2024 11/05/2024 Comment:UACC Narrative [facility] - 11/07/2024 7:44 AM EDT Escherichia coli Quant > 100,000 cfu/mL Escherichia coli: Ampicillin 8(S) Escherichia coli: Cefazolin (Urine) 4(S) Escherichia coli: Cefepime <=0.12(S) Escherichia coli: Ceftriaxone <=0.25(S) Escherichia coli: Ciprofloxacin <=0.06(S) Escherichia coli: Gentamicin <=1(S) Escherichia coli: Nitrofurantoin <=16(S) Escherichia coli: Trimethoprim/Sulfamethoxazole <=20(S) Specimen Source: Urine clean catch Generic External Data Provider LAB MICROBIOLOGY - GENERAL ORDERABLES Final Result [facility] [address] [place] [phone] * POCT HGB A1C (10/29/2024 2:29 PM EDT) Hemoglobin A1C 5.4 4.0 - 6.0 % QC Media Lot # [id number] Lot# Expiration Date Blood 10/29/2024 2:29 PM EDT Eddie Marshall MD POINT OF CARE TEST ENTER/EDIT OR DERABLES Final Result * POCT Glucose (10/29/2024 2:27 PM EDT) Glucose Blood, POC 122 60 - 200 mg/dL QC Media Lot # [id number] Lot# Expiration Date 100,725 Blood Capillary blood specimen / Unknown 10/29/2024 2:27 PM EDT Eddie Name POINT OF CARE TEST ENTER/EDIT OR DERABLES Final Result * (ABNORMAL) CBC auto differential (10/04/2024 10:50 AM EDT) Only the most recent of2 resultswithin the time period is included. White Blood Count 8.9 4.8 - 10.8 X10*3/uL [facility] Red Blood Count 3.73(L) 4.20 - 5.50 X10*6/uL [facility] Hemoglobin 8.7(L) 12.0 - 16.0 g/dl [facility] Hematocrit 29.7(L) 37.0 - 47.0 % [facility] Mean Corpuscular Volume 79.6(L) 80.0 - 98.0 fL [facility] Mean Corpuscular Hemoglobin 23.3(L) 27.0 - 33.0 pg [facility] Mean Corpuscular HGB Conc 29.3(L) 31.0 - 35.0 g/dl [facility] Red Cell Distribution Width 20.4(H) 11.0 - 16.0 % [facility] Platelet Count 440(H) 160 - 400 X10*3/uL [facility] Mean Platelet Volume 9.9 9.4 - 12.3 fL [facility] Neutrophils Percent Auto 67.6 45 - 73 % [facility] Imm Gran Pct Auto 0.3 0.0 - 0.4 % [facility] Lymphocytes Percent Auto 20.0 20 - 40 % [facility] Monocytes Percent Auto 9.3 2 - 11 % [facility] Eosinophils Percent Auto 2.0 0 - 4 % [facility] Basophils Percent Auto 0.8 0 - 2 % [facility] NRBC Pct Auto 0.0 0.0 - 0.2 /100WBC [facility] Neutrophils Absolute Auto 6.0 2.0 - 8.3 x10*3/uL [facility] Imm Gran Abs Auto 0.03 0.00 - 0.03 X10*3/uL [facility] Lymphocytes Absolute Auto 1.8 1.2 - 4.9 X10*3/uL [facility] Monocytes Absolute Auto 0.8 0.1 - 1.2 X10*3/uL [facility] Eosinophils Absolute Auto 0.2 0.0 - 0.4 X10*3/uL [facility] Basophils Absolute Auto 0.1 0.0 - 0.2 X10*3/uL [facility] NRBC Abs Auto 0.000 0.0 - 0.012 X10*3/uL [facility] Blood Venous blood specimen / Unknown 10/04/2024 10:50 AM EDT 10/04/2024 1:14 PM EDT us Hannah Appram [employer] LAB BLOOD ORDERABLES Final Resu lt Performing Organization Address [facility] Co de Phone Number [facility] [address] [place] [phone] * Phosphate (As Phosphorus) (09/30/2024 11:00 AM EDT) [facility] Phosphorus 3.0 2.7 - 4.5 mg/dL [facility] 09/30/2024 11:0 0 AM EDT 09/30/2024 11:06 AM EDT Generic External Data Provider LAB BLOOD ORDERAB LES Final Result Performing Organization Address [facility] Co de Phone Number [facility] [address] [place] [phone] * OBSX1 (09/28/2024 5:12 PM EDT) [facility] OBS1 NEGATIVE NEGATIVE [facility] 09/28/2024 5:12 PM EDT 09/28/2024 5:20 PM EDT Generic External Data Provider LAB BLOOD ORDERAB LES Final Result Performing Organization Address [facility] de Phone Number [facility] [address] [place] [phone] * Prothrombin Time-INR (09/28/2024 4:02 PM EDT) [facility] Prothrombin Time 11.6 10.9 - 12.4 SEC [facility] INTERNATIONAL NORM RATIO 1.0 0.9 - 1.1 [facility] Comment:INTERNATIONAL NORMAL IZED RATIO (INR) [...] ORDERAB LES Final Result Performing Organization Address City/[facility]/ZIP Co de Phone Number [facility] [address] [place] [phone] * (ABNORMAL) Basic Metabolic Panel (09/28/2024 4:02 PM EDT) Sodium 138 135 - 145 mmol/L [facility] Potassium 4.2 3.3 - 5.1 mmol/L [facility] Chloride 104 96 - 108 mmol/L [facility] Carbon Dioxide 25 22 - 29 mmol/L [facility] Anion Gap 13 12 - 20 [facility] Urea Nitrogen (BUN) 21(H) 9 - 16 mg/dL [facility] Creatinine, Serum 0.66 0.5 - 1.4 mg/dL [facility] Creatinine Clr Calc Pharmacy 62.2 [facility] Comment:Provided height and weight: 157.48 cm,63 kg.eGFR (calculated from the MDRD study equation) and eCrCl(calculated from the Cockcroft-Gault equation) are based ondifferent parameters and may not yield comparable results.If eCrCl result is absurd, please check patient'sheight/weight. Estimated Glomerular Filt Rate >60 [facility] Comment:Chronic Kidney Disea se: Estimated GFR < 60 mL/min/1.34m7Wcptlw Kidney Disease: Estimated GFR < 15 mL/min/1.73m2 Glucose 131(H) 60 - 115 mg/dL [facility] Calcium 9.2 8.4 - 10.2 mg/dL [facility] 09/28/2024 4:02 PM EDT 09/28/2024 4:06 PM EDT us Generic External Data Provider LAB BLOOD ORDERAB LES Final Result [facility] [address] [place] [phone] * XR Chest 2 Views (09/20/2024 10:12 AM EDT) Anatomical Region Laterality Modality Chest Radiographic Tanya ging 09/20/2024 10:1 2 AM EDT Narrative 09/20/2024 10:27 AM EDT ? [facility] ?[address] ?[place] [address] ?XRay Report ? Signed ? Patient: Celeste Abad ?MR#: [id number] ?? 4 ? : 1945 ?Acct:[id number] ? Age/Sex: 78 / F ?ADM Date: 09/20/24 ? Loc: HO.XRAY ? Attending Dr: Maria Esther Blum [employer] CONSULTANT ? Ordering Physician: Maria Esther Blum NP ?? Date of Service: 09/20/24 ?? Procedure(s): XR chest 2V ?? Accession Number(s): [id number] ? cc: Name,Eddie GILMORE; Maria Esther Blum [...] DD/ 1012 ? TD/TT: 09/20/24 1017 ? Print Shop Manager: ? Procedure Note Donotuseinterpreter, Image - 09/20/[address] [address] XRay Report Signed Patient: Celeste AbadMR#: [id number] 4 : 7Acct:[id number] Age/Sex: 78 / FADM Date: 09/20/24 Loc: HO.XRAY Attending Dr: Maria Esther Blum NP Ordering Physician: Maria Esther Blum NP Date of Service: 09/20/24 Procedure(s): XR chest 2V Accession Number(s): [id number] cc: Eddie Marshall MD; Maria Esther Blum [...] 09/20/24 1024 DD/ 1012 TD/TT: 09/20/24 1017 Print Shop Manager: [facility] External Provider IMG XR PROCEDURES Final Result * CT Chest w/o Contrast (08/27/2024 2:12 PM EDT) Anatomical Region Laterality Modality Body, Chest Computed Tomogra phy 08/27/2024 2:12 PM EDT Narrative 08/27/2024 2:14 PM EDT ? [facility] ?[address] ?[place] [address] ? CT Scan Report ? Signed ? Patient: Jenniffer,Celeste ?MR#: [id number] ?? 4 ? : 1945 ?Acct:[id number] ? Age/Sex: 78 / F ?ADM Date: 08/26/24 ? Loc: HO.CT ? Attending Dr: Maria Esther Blum [employer] SK[employer] CONSULTANT ? Ordering Physician: Maria Esther Blum NP ?? Date of Service: 08/26/24 ?? Procedure(s): CT chest wo IV con ?? Accession Number(s): [id number] ? cc: Name,Eddie GILMORE; Maria Esther Blum NP ? Report Number: ?? [id number]: Total DLP = ??208.00 mGy-cm ? CLINICAL [...] 1412 ? TD/TT: 08/27/24 1412 ? Print Shop Manager: ? Procedure Note Sahil Tellez - 08/27/[address] [address] [address] Scan Report Signed Patient: Celeste AbadMR#: [id number] 4 : 7Acct:[id number] Age/Sex: 78 / FADM Date: 08/26/24 Loc: HO.CT Attending Dr: Maria Esther Blum NP Ordering Physician: Maria Esther Blum NP Date of Service: 08/26/24 Procedure(s): CT chest wo IV con Accession Number(s): [id number] cc: Name,Eddie GILMORE; Maria Esther Blum NP Report Number: [id number]: Total DLP = 208.00 mGy-cm CLINICAL HISTORY: [...] 08/27/24 1413 DD/ 141 TD/TT: 08/27/24 141 Print Shop Manager: [facility] External Provider IMG CT PROCEDURES Final Result * (ABNORMAL) Iron And Total Iron Binding Capacity (08/27/2024 1:25 PM EDT) Pathologist [facility] Iron 14(L) 30 - 160 mcg/dL [facility] Total Iron Binding Capacity 295 228 - 428 mcg/dL [facility] Percent Iron Saturation 5(L) 15 - 50 % [facility] Unsaturated Iron Binding 281 ug/dL [facility] 08/27/2024 1:25 PM EDT 08/27/2024 1:25 PM EDT Generic External Data Provider LAB BLOOD ORDERAB LES Final Result [facility] [address] [place] [phone] * (ABNORMAL) CBC (08/27/2024 1:25 PM EDT) White Blood Count 9.0 4.8 - 10.8 X10*3/uL [facility] Red Blood Count 4.06(L) 4.20 - 5.50 X10*6/uL [facility] Hemoglobin 10.0(L) 12.0 - 16.0 g/dl [facility] Hematocrit 33.1(L) 37.0 - 47.0 % [facility] Mean Corpuscular Volume 81.5 80.0 - 98.0 fL [facility] Mean Corpuscular Hemoglobin 24.6(L) 27.0 - 33.0 pg [facility] Mean Corpuscular HGB Conc 30.2(L) 31.0 - 35.0 g/dl [facility] Red Cell Distribution Width 16.3(H) 11.0 - 16.0 % [facility] Platelet Count 393 160 - 400 X10*3/uL [facility] Mean Platelet Volume 9.4 9.4 - 12.3 fL [facility] NRBC Pct Auto 0.0 0.0 - 0.2 /100WBC [facility] NRBC Abs Auto 0.000 0.0 - 0.012 X10*3/uL [facility] 08/27/2024 1:25 PM EDT 08/27/2024 1:25 PM EDT us Generic External Data Provider LAB BLOOD ORDERAB LES Final Result Performing Organization Address City/[facility]/ZIP Co de Phone Number [facility] [address] [place] [phone] * Ferritin (08/27/2024 1:25 PM EDT) Ferritin 35 10 - 250 ng/mL [facility] 08/27/2024 1:25 PM EDT 08/27/2024 1:25 PM EDT us Generic External Data Provider LAB BLOOD ORDERAB LES Final Result Performing Organization Address City/[facility]/ZIP Co de Phone Number [facility] [address] [place] [phone] * (ABNORMAL) Lipid Panel, Standard (01/16/2024 9:40 AM EDT) Triglycerides 199(H) <150 mg/dL [facility] Comment:Desirable Triglyceri de: less than 150 mg/dLBorderline High Triglyceride 150-199 mg/dLHigh Triglyceride: 200-499 mg/dLVery High Triglyceride: greater than or equal to 5OO mg/dL Cholesterol 150 <200 mg/dL [facility] Comment:Desirable Cholestero l: less than 200 mg/dLBorderline High Cholesterol: 200-239 mg/dLHigh Cholesterol: greater than 239 mg/dL LDL Cholesterol Calculated 63 <100 mg/dL [facility] Comment:Desirable LDL: less than 100 mg/dLNear Optimal/Above Optimal LDL: 110- 129 mg/dLBorderline High LDL: 130-159 mg/dLHigh LDL: 160-189 mg/dLVery High LDL: greater than or equal to 190 mg/dL HDL Cholesterol 48 >40 mg/dL [facility] Comment:Desirable HDL: great er than 40 mg/dL Note: This HDL assay may give artificially low results in patients with liver disease. Blood Venous blood specimen / Unknown 01/16/2024 9:40 AM EDT 01/16/2024 11:20 AM EDT us Eddie Name MD LAB BLOOD ORDERABLES Final Resul t [facility] [address] [place] [phone] * Albumin, Random Urine W/Creatinine (01/16/2024 9:35 AM EDT) Creatinine, Urine 27.62 mg/dL [facility] Microalbumin Urine <5.0 mg/L [facility] Microalbum Creatinine Ratio Ur TNP <30 ug/mg cr [facility] Comment:Unable to calculate albumin/creatinine ratio due to lowmicroalbumin or creatinine result. Urine (Urine, Random) 01/16/2024 9:35 AM EDT 01/16/2024 11:12 AM EDT us Edide Marshall MD LAB URINE ORDERABLES Final Resul t [facility] [address] [place] [phone] * Hm Diabetes Eye Exam (05/16/2023) Eye Exam Normal Normal Eddie Marshall MD HEALTH MAINTENANCE Final Result * (ABNORMAL) Hepatitis Panel, General (11/18/2022 2:07 PM EDT) Hepatitis A Antibody Total REACTIVE( A) NON-REACT NAHID [facility] Comment: For additional information, please refer to http://[employer]/faq/BHR266 (This link is being provided for informational/ educational purposes only.) Hepatitis B Surface Antibody QL NON-REACT NAHID NON-REACT NAHID [facility] Hepatitis B Surface Ag NON-REACT NAHID NON-REACT NAHID [facility] Hepatitis B Core Antibody Total NON-REACT NAHID NON-REACT NAHID [facility] Hepatitis C Antibody NON-REACT NAHID NON-REACT NAHID [facility] Index 0.07 <1.00 [facility] [employer] Comment: HCV antibody was non-reactive. There is no laboratory evidence of HCV infection. In most cases, no further action is required. However, if recent HCV exposure is suspected, a test for HCV RNA (test code 09807) is suggested. For additional information please refer to http://[employer]/faq/UQD83o0 (This link is being provided for informational/ educational purposes only.) 11/18/2022 2:07 PM EDT 11/18/2022 2:09 PM EDT Narrative [facility] - 11/19/2022 6:51 AM EDT COLLECTION KIT GIVEN TO PATIENT. PATIENT ADVISED TO RETURN. 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
[2024-11-25 15:02] LABS: Phosphorus 4.3 mg/dL (2.7-4.5)
[2024-11-26 19:19] LABS: Calcium, 24 Hr Urine 591 mg/24 h; Calcium/Creatinine Ratio 747 mg/g creat (30-275); Creatinine 24Hr Urine 0.79 g/24 h (0.50-2.15)
== END 2024-11-25 13:12 | disposition home or self-care (01) ==
LOC: HO.LAB 13:11
PROVIDERS: PCP Internal Medicine Geriatric Medicine; Visit Provider Internal Medicine Endocrinology, Diabetes & Metabolism
DX: M81.0 Age-related osteoporosis without current pathological fracture (principal)
CPT/HCPCS: 36415; 82340; 82570; 84100

== ENCOUNTER 2024-12-04 13:39 | Outpatient (AMB) | payer MEDICARE, SELFPAY ==
[2024-12-04 13:43] VITALS: BP 110/62; PULSE 86; O2SAT 94; BMI 26.0
--- NOTE | 2024-12-04 13:43 | MHC.OFFVIS ---
Vital Signs 12/04/24 13:43 Height 5 ft 1 in Weight 137 lb 8 oz BMI 26.0 BP 110/62 Blood Pressure Location Rt brachial Position Sitting Pulse 86 Pulse Source Pulse Oximeter Pulse Oximetry (%) 94 Oxygen Delivery Method Room Air Intake Visit Reasons: Dyspnea Allergies scallops Allergy (Unknown, Verified 12/04/24 13:50) Unknown HPI HPI Dyspnea: Details: Celeste is a pleasant 78 year old female, former smoker, quit 20 years ago with 40+ pyh with underlying HTN, stable angina, CAD, seizures, h/o CVA x 3 and h/o [place] x 3 s/p 3 stents. She is able to ambulate however uses a wheelchair for long distances and is accompanied by her son today. She was switched to Advair as she reported Breo worsened reflux. At the was increased with notable improvements. Unfortunately due to the hot humid weather she has had worsening shortness of breath minimally relieved with albuterol MDI. She does not have a nebulizer at home. She also reports prior history of obstructive sleep apnea, unknown severity and continues to report significant daytime fatigue, proximal nocturnal dyspnea, non restorative sleep and loud snoring. Of note, she did report significant weight loss and prior sleep study previously weighing 200 lb. She denies any visits urgent care or hospitalizations related to respiratory distress since last visit. [facility] Medical History Paraesophageal hernia Osteoporosis Lower GI bleed Rectal bleed Anemia Stable angina Essential hypertension CVA (cerebral vascular accident) CAD (coronary artery disease) Surgical History Status post cardiac catheterization History of cardiac cath History of adenoidectomy Hx of tonsillectomy Hx of hernia repair History of section History of cholecystectomy History of appendectomy Family History Mother Cancer Father Heart attack Social History Household Members: Children Housing: House Do you presently have visiting nurse or other home services: Yes Unable to assess alcohol history related to: Unknown Alcohol intake: never Patient Tobacco Use Status: Former Tobacco user Years Smoked: 30 +/- e-Cigarette/Vaping Use: Never Used Second Hand Smoke Exposure: No Substance Use Type: Marijuana service: No Current occupational status: retired Current occupation: right hand dominant Review of Systems Const Denies chills, Denies excessive sweating, Denies fever(s), Denies headache(s) and Denies night sweats Eyes Denies dry eyes, Denies irritation and Denies itchy eyes ENT Reports Normal hearing present, Denies headache(s), Denies nasal discharge, Denies post nasal drip and Denies sore throat Card Denies chest pain, Denies chest pain at rest, Denies chest pain with activity, Denies claudication, Denies leg edema, Reports dyspnea on exertion and Denies orthopnea Resp Denies chest congestion, Denies excessive phlegm production, Denies pain on inspiration, Denies pain with cough, Reports dyspnea on exertion, Denies stridor and Reports wheezing Musc Denies myalgias Neuro Reports Normal hearing present and Denies headache(s) Endo Denies excessive sweating Miguel/Lymph Denies lymphadenopathy Aller/Immun Denies itchy eyes, Denies seasonal rhinorrhea and Reports wheezing Physical Exam Vital Signs: Last Vital Signs Pulse 86 12/04/24 13:43 BP 110/62 12/04/24 13:43 Pulse Ox 94 12/04/24 13:43 Oxygen Delivery Method Room Air 12/04/24 13:43 BMI result Body Mass Index 26.0 Const General: cooperative, healthy appearing, comfortable, no acute distress, well developed and alert Orientation/consciousness: patient oriented x3 Limitations: no limitations HEENT Head: Yes normal to inspection, Yes normocephalic and Yes atraumatic Ears: hearing grossly normal bilaterally and external ears normal Eyes General: appearance normal, both eyes and all related structures Eyelids: Yes eyelids normal Sclerae: sclerae normal EOM: EOMs intact bilaterally Neck Neck: Yes normal visual inspection and Yes no lymphadenopathy Lymphatic: no lymphadenopathy noted Chest Chest palpation & inspection: normal inspection of the chest Resp Effort & Inspection: normal respiratory effort, able to speak in complete sentences, no audible wheezes, no cough, no stridor, not tachypneic, no tripod positioning and no use of accessory muscles Auscultation: clear to auscultation bilaterally Cardio Jugular venous distension: no JVD Rate: regular rate Rhythm: regular rhythm Skin Other: warm, dry General skin exam: no rashes or lesions noted Neuro General: patient oriented x3 Cranial nerves: Yes Normal hearing present Cognition (Neuro): normal cognition Gait exam (Neuro): Normal gait present Extrem General: Yes normal to inspection, Yes capillary refill normal, Yes no clubbing, cyanosis or edema and Yes no pedal edema Psych Appearance: grossly normal and well kempt Speech and movement: Normal speech and movement present and Clear speech present Affect: normal affect Attitude: cooperative Thought process: Normal thought process present Thought content: Normal thought content present Insight: Good insight present (Psych) Judgement: Good judgement present (Psych) Assessment & Plan Assessment & Plan (1) COPD (chronic obstructive pulmonary disease): Code(s): J44.9 - Chronic obstructive pulmonary disease, unspecified Category: Medical (2) Emphysema of lung: Code(s): J43.9 - Emphysema, unspecified Category: Medical (3) Personal history of tobacco use: Code(s): Z87.891 - Personal history of nicotine dependence Category: Social Hx (4) Multiple pulmonary nodules: Code(s): R91.8 - Other nonspecific abnormal finding of lung field Category: Medical Plan Celeste reports notable improvement since increasing dose of Advair, encouraged to continue. She does report triggers with weather changes minimally responsive to albuterol MDI. Consider switching Advair to Breo if she continues with suboptimal effect. Will send nebulizer for home use with albuterol solution. She is aware to call if symptoms worsen. There was also note of 7.7 mm nodular density of the right upper lobe and 5 mm nodular density of the right upper lobe, and will have repeat CT in December 2024 to assess stability. All questions were answered and patient is in agreement of plan. Will follow up to review CT results or sooner if needed. Medications: New albuterol sulfate 2.5 mg (3 mL) inhalation Q4-6H PRN 90 mL 0RF shortness of breath or wheezing Coding Level of Care Code Est Pt Level 4 (59129) Diagnoses COPD (chronic obstructive pulmonary disease) J44.9 Emphysema of lung J43.9 Personal history of tobacco use Z87.891 Multiple pulmonary nodules R91.8
--- OUTSIDE RECORDS SUMMARY | 2024-12-04 15:40 | XMS_ITS | Clinical Summary ---
Author Organization [employer] Address [address] [place] [address] [address] [place] [address] Care Team Providers Care Admissions Manager Name Role Phone Name, Eddie GILMORE Primary Care Provider [phone] Allergies Active Allergy Reactions Criticality Noted Date [...] 06/01/20 22 Active Blood Glucose Monitoring Suppl (PinPay Verio Flex System) w/Device kit USE DIRECTED 03/16/20 22 Active latanoprost (Xalatan) 0.005 % ophthalmic solution 06/07/20 22 Active MILK THISTLE EXTRACT PO OTC daily 04/20/20 21 Active Myrbetriq 50 MG 24 hr tablet TAKE ONE TABLET BY MOUTH EVERY DAY DO NOT CRUSH OR CHEW 05/11/20 22 Active simethicone (Mylicon,Gas-X ) 125 MG capsule OTC daily PRN gas/bloating 05/09/20 22 Active Polyethyl Glycol-Propyl Glycol (Systane) 0.4-0.3 % solution 1 drop in both eyes twice daily 04/19/20 22 Active acetaminophen (Tylenol 8 Hour) 650 MG ER tablet Take 2 tablets by oral route every 8 hours as needed for pain 04/19/20 Active biotin 5 MG capsule OTC daily [...] in the morning. 01/10/20 23 Active Lancets (P[employer]ate BrandsTouch Delica Plus [id number]) miscIndication s:Controlled type 2 diabetes mellitus with complication, without long-term current use of insulin ([facility]) USE TO CHECK BLOOD SUGAR TWICE A DAY 100 each 5 09/15/19 24 Active glucose blood ([employer]Touch Verio) test stripIndicatio ns:Controlled type 2 diabetes mellitus with complication, without long-term current use of insulin ([facility]) CHECK BY FINGERSTICK TWICE DAILY 50 strip 11 10/06/19 24 Active naloxone (Narcan) 4 mg/0.1 mL nasal sprayIndicatio ns:Chronic pain syndrome Administer 1 spray (4 mg) [...] mg by mouth Once per day. Active cholecalcifero l (Vitamin D-3) 50 MCG (2000 UT) tablet [...] HOURS Active traZODone (Desyrel) 50 MG tablet TAKE 1 TABLET BY MOUTH AT BEDTIME 30 tablet 11/28/19 25 Active levothyroxine (Synthroid, Levoxyl) 112 MCG tabletIndicati ons:Hypothyroi dism, unspecified type TAKE 1 TABLET BY MOUTH EVERY DAY 90 tablet 12/03/19 25 Active oxyCODONE-acet aminophen (Percocet) 5-325 MG tabletIndicati ons:Chronic pain syndrome Take 1 tablet by mouth every 8 (eight) hours if needed for severe pain for up to 28 days. Do not start before December 03, 2024. 84 tablet 12/04/19 25 025 Active levothyroxine (Synthroid, Levoxyl) 112 MCG tabletIndicati ons:Hypothyroi dism, unspecified type TAKE 1 TABLET BY MOUTH EVERY DAY 90 tablet 1 03/14/20 24 025 Discontinued(R eorder (will not trigger notification to Pharmacy)) traZODone (Desyrel) 50 MG tablet Take 1 tablet (50 mg) by mouth at bedtime. 30 tablet 10/30/19 25 025 Discontinued(R eorder (will not trigger notification to Pharmacy)) oxyCODONE-acet aminophen (Percocet) 5-325 MG tabletIndicati ons:Chronic pain syndrome Take 1 tablet by mouth every 8 (eight) hours if needed for severe pain for up to 28 days. Do not start before November 05, 2024. 84 tablet 11/06/19 025 Discontinued(R eorder (will not trigger notification to Pharmacy)) cefixime (Suprax) capsule Take 1 capsule (400 mg) by mouth Once per day for 10 days. 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 She understands this is the [...] organization. Date Type Department Care Team Description 12/02/2024 Refill [facility] [address] [place] [address] Name, MD Eddie Hypothyroidism, unspecified type 12/02/2024 Refill [facility] [address] [place] [address] Eddie Marshall MD Chronic pain syndrome 11/27/2024 Refill [facility] [place] [address] Eddie Marshall MD 11/25/2024 Orders Only GENERIC EXTERNAL DATA DEPARTMENT Provider, Generic External Data 11/12/2024 9:45 AM EDT Office Visit [facility] [place] [address] Mckenzie Trent, TYPER Chronic pain syndrome (Primary Dx); meterman (current) use of opiate analgesic 11/12/2024 Travel 11/06/2024 Results Follow-Up [facility] [place] [address] Eddie Marshall MD Urinalysis, Complete, with Reflex to Culture, Culture, Urine, Routine 11/05/2024 Orders Only GENERIC EXTERNAL DATA DEPARTMENT Provider, Generic External Data 11/04/2024 Telephone [facility] [place] [address] Eddie Marshall MD Call Back Request 11/04/2024 Refill [facility] [place] [address] Eddie Marshall MD Chronic pain syndrome 11/01/2024 Telephone [facility] [place] [address] Eddie Marshall MD Med Refill 10/29/2024 2:30 PM EDT Office Visit [facility] [place] [address] Eddie Marshall MD Iron deficiency anemia due to chronic blood loss (Primary Dx); Chronic insomnia; Controlled type 2 diabetes mellitus with complication, without long-term current use of insulin ([facility]); Chronic obstructive pulmonary disease, unspecified COPD type ([facility]); Pulmonary nodules; Former smoker 10/29/2024 Travel 10/28/2024 Telephone [facility] [place] [address] Eddie Marshall MD CHART PREP 10/27/2024 Refill [facility] [place] [address] Eddie Marshall MD 10/03/2024 Refill [facility] [address] [place] [address] Eddie Marshall MD 10/03/2024 Telephone [facility] [address] [place] [address] Eddie Marshall MD Med Refill 10/01/2024 Refill [facility] [address] [place] [address] Eddie Marshall MD Chronic pain syndrome 09/30/2024 2:30 PM EDT Office Visit [address] [address] Hannah Paula NP Low hemoglobin (Primary Dx) 09/30/2024 Travel 09/30/2024 Orders Only GENERIC EXTERNAL DATA DEPARTMENT Provider, Generic External Data 09/28/2024 Orders Only GENERIC EXTERNAL DATA DEPARTMENT Provider, Generic External Data 09/27/2024 Telephone [facility] [address] [place] [phone] Matilda Millan RN ED follow up 09/27/[address] [address] Eddie Marshall MD ER Follow-up 09/26/[address] [address] Eddie Marshall MD Durable Medical Equipment 09/24/[address] [address] Eddie Marshall MD Durable Medical Equipment (Hip protectors) 09/24/2024 Telephone [facility] [address] [place] [address] Eddie Marshall MD DME Transport Chair 09/20/2024 Orders Only [facility] External Provider, [facility] 09/19/2024 Telephone [facility] [address] [place] [phone] Eddie Marshall MD Call Back Request 09/15/[address] [address] Eddie Marshall MD 09/11/2024 Telephone [facility] [address] [place] [phone] Name, MD Eddie Durable Medical Equipment 09/10/2024 9:45 AM EDT Office Visit [facility] [address] [place] [address] Mckenzie Trent FNP Chronic pain syndrome (Primary Dx); meterman (current) use of opiate analgesic 09/10/2024 Travel 09/09/2024 Telephone [facility] [address] [place], [place] [phone] Eddie Marshall MD 09/05/2024 Refill [facility] [address] [place] [address] Name, MD Eddie Chronic pain syndrome from Last 3 Months Immunizations Immunization Administration Dates Next Due Influenza injectable quadriv alent IIV4 with preservative 04/07/2016 Influenza, IIV3, injectable 03/23/2015,1 ,03/08/2013,04/06,05/01/2008,04/19/2007,05/10/2006 ,03/15/2005 Novel [id number], preservative-free 05/22/2009 Pneumococcal Polysaccharide PPSV23 07/11/2013, TD [...] the past 12 months, has t he [employer], gas, oil or water company threatened to [...] 100 10/29/2024 2:25 PM EDT Temperature 36.8 C (98.2 F) 10/29/2024 2:25 PM EDT Respiratory Rate 25 10/29/2024 2:25 PM EDT [...] Description 12/10/2024 9:45 AM EDT Office Visit [facility] [address] [place] [address] 02/19/2025 11:15 AM EDT Office Visit [facility] [address] [place] [phone] Name, [place] [address] Health Maintenance Due Date Last Done Comments Zoster Vaccines (1 of 2) 1996 Pneumococcal Vaccine: 50+ Years (2 of 2 - PCV) 07/11/2014 07/11/2013, 03/02/2005 DTaP/Tdap/Td Vaccines (1 - Tdap) 03/25/2017 03/24/2017, 03/31/2003 RSV Patients and Patients Aged 60 years or older (1 - 1-dose 75+ series) 2021 COVID-19 Vaccine ( season) 2024 Diabetes: Foot Exam 10/16/2024 10/17/2023, 10/17/2023, 10/17/2023, Additional history exists Depression Monitoring 11/07/2024 05/10/2024, 024 Diabetes: Urine Protein Screening 01/15/2025 01/16/2024, 09/14/2022 Lipid Panel 01/15/2025 01/16/2024, 0302/2023, 03/18/2020 Alcohol/Substance Use Screening 02/04/2025 02/05/2024 Influenza Vaccine (Season Ended) 2025 04/07/2016, 03/23/2015, 03/27/2014, Additional history exists Diabetes: Hemoglobin A1C 05/01/2025 025, 08/02/2024, 02/05/2024, Additional history exists Eye Exam 05/16/2025 05/16/2023, 05/0 02/2012, 10/21/2010, Additional history exists SDOH Screening 10/29/2025 10/29/2024 Tobacco Screening 10/29/2025 [...] Associated Diagnosis Comments PHOSPHATE ( PHOSPHORUS) Routine 11/25/2024 2:08 PM EDT POCT ADRIAN-14 URINE DRUG SCREEN Routine 11/12/2024 [...] use of insulin ([facility]) POCT GLUCOSE Routine 10/29/2024 2:27 PM EDT Controlled type 2 diabetes mellitus with complication, without long-term current use of insulin ([facility]) CBC WITH AUTO DIFFERENTIAL Routine 10/04/2024 10:50 [...] 09/10/2024 1:29 PM EDT Chronic pain syndrome meterman (current) use of opiate analgesic LIPID PANEL, [...] Health Maintenance Results * Phosphate (As Phosphorus) (11/25/2024 2:08 PM EDT) Only the most recent of2 resultswithin the time period is included. Phosphorus 4.3 2.7 - 4.5 mg/dL [facility] 11/25/2024 2:08 PM EDT 11/25/2024 2:08 PM EDT us Generic External Data Provider LAB BLOOD ORDERAB LES Final Result [facility] [address] [place] [phone] * POCT ADRIAN-14 Urine Drug Screen (11/12/2024 10:14 AM EDT) Only the most recent of2 resultswithin the time period is included. Oxycodone Screen, Urine Positive Urine Urine specimen obtained by clean catch procedure / Unknown 11/12/2024 10:14 AM EDT Estrellita Francis RN - 11/12/2024 10:14 AM EDT .UTOX cup Lot#[id number] Exp. 04/18/26 Internal Pass Control Mckenzie Trent TYPER POINT OF CARE TEST ENTER/EDIT ORDERABLES Final Result * T-SPOT??.TB (11/05/2024 12:13 PM EDT) [facility] Signature T Spot TB Negative Negative [facility] Comment:A negative test resu lt [...] as aquantitative test. TS PANEL A 2 [facility] TS PANEL B 3 [facility] Negative Control Passed [facility] Positive Control Passed [facility] Comment:For additional infor matadalberto, please refer tohttp://education.[employer]/faq/PQA291(This link is being provided for informational/educational purposes only.)THIS TEST WAS PERFORMED AT:[facility] [id number] [place] [phone] MADDOX MD,PHD 11/05/2024 12:1 3 PM EDT 11/05/2024 1:07 PM EDT us Eddie Name LAB BLOOD ORDERABLES Final Resul t Performing Organization Address [facility]/ZIP Co de Phone Number [facility] [address] [place] [phone] * (ABNORMAL) Urinalysis, Complete, with Reflex to Culture (11/05/2024 11:16 AM EDT) Color Urine Yellow [facility] Appearance Urine Cloudy [facility] PH 6.5 5.0 - 9.0 [facility] Glucose Urine UA Negative Negative mg/dL [facility] Urine Blood Negative Negative [facility] Specific [place] - Urine 1.015 1.005 - 1.025 [facility] Urine Protein Negative Neg-Trace mg/dL [facility] Urine Ketones Negative Negative mg/dL [facility] Nitrite Urine Negative Negative [facility] Leukocyte Esterase Urine Moderate (2+)(A) Negative [facility] RBC Urine 0-2 0 - 2 /HPF [facility] Urine WBC 21-50(A) 0 - 5 /HPF [facility] Urine Squamous Epithelial Cell 3-5 0 - 2 /HPF [facility] Urine Bacteria 4+ None Seen [facility] Hyaline Casts, Urine 0-2 0 - 2 /LPF [facility] 11/05/2024 11:1 6 AM EDT 11/05/2024 11:25 AM EDT Narrative [facility] - 11/05/2024 11:35 AM EDT Urine, Clean Catch us Generic External Data Provider LAB URINE ORDERAB LES Final Result Performing Organization Address [facility] Co de Phone Number [facility] [address] [place] [phone] * Culture, Urine, Routine (11/05/2024 12:00 AM EDT) Urine Urine specimen obtained by clean catch procedure / Unknown 11/05/2024 11/05/2024 Comment:UACC Narrative [facility] - 11/07/2024 7:44 AM EDT Escherichia coli Quant > 100,000 cfu/mL Escherichia coli: Ampicillin 8(S) Escherichia coli: Cefazolin (Urine) 4(S) Escherichia coli: Cefepime <=0.12(S) Escherichia coli: Ceftriaxone <=0.25(S) Escherichia coli: Ciprofloxacin <=0.06(S) Escherichia coli: Gentamicin <=1(S) Escherichia coli: Nitrofurantoin <=16(S) Escherichia coli: Trimethoprim/Sulfamethoxazole <=20(S) Specimen Source: Urine clean catch Generic External Data Provider LAB MICROBIOLOGY - GENERAL ORDERABLES Final Result [facility] [address] [place] [phone] * POCT HGB A1C (10/29/2024 2:29 PM EDT) Hemoglobin A1C 5.4 4.0 - 6.0 % QC Media Lot # [id number] Lot# Expiration Date 72 Blood 10/29/2024 2:29 PM EDT Eddie Marshall MD POINT OF CARE TEST ENTER/EDIT OR DERABLES Final Result * POCT Glucose (10/29/2024 2:27 PM EDT) Glucose Blood, POC 122 60 - 200 mg/dL [employer] Lot # [id number] Lot# Expiration Date 100,725 Blood Capillary blood specimen / Unknown 10/29/2024 2:27 PM EDT Eddie Marshall MD POINT OF CARE TEST ENTER/EDIT OR DERABLES Final Result * (ABNORMAL) CBC auto differential (10/04/2024 10:50 AM EDT) Only the most recent of2 resultswithin the time period is included. White Blood Count 8.9 4.8 - 10.8 X10*3/uL [facility] Red Blood Count 3.73(L) 4.20 - 5.50 X10*6/uL [facility] Hemoglobin 8.7(L) 12.0 - 16.0 g/dl [facility] Hematocrit 29.7(L) 37.0 - 47.0 % [facility] Mean Corpuscular Volume 79.6(L) 80.0 - 98.0 fL [facility] Mean Corpuscular Hemoglobin 23.3(L) 27.0 - 33.0 pg [facility] Mean Corpuscular HGB Conc 29.3(L) 31.0 - 35.0 g/dl [facility] Red Cell Distribution Width 20.4(H) 11.0 - 16.0 % [facility] Platelet Count 440(H) 160 - 400 X10*3/uL [facility] Mean Platelet Volume 9.9 9.4 - 12.3 fL [facility] Neutrophils Percent Auto 67.6 45 - 73 % [facility] Imm Gran Pct Auto 0.3 0.0 - 0.4 % [facility] Lymphocytes Percent Auto 20.0 20 - 40 % [facility] Monocytes Percent Auto 9.3 2 - 11 % [facility] Eosinophils Percent Auto 2.0 0 - 4 % [facility] Basophils Percent Auto 0.8 0 - 2 % [facility] NRBC Pct Auto 0.0 0.0 - 0.2 /100WBC [facility] Neutrophils Absolute Auto 6.0 2.0 - 8.3 x10*3/uL [facility] Imm Gran Abs Auto 0.03 0.00 - 0.03 X10*3/uL [facility] Lymphocytes Absolute Auto 1.8 1.2 - 4.9 X10*3/uL [facility] Monocytes Absolute Auto 0.8 0.1 - 1.2 X10*3/uL [facility] Eosinophils Absolute Auto 0.2 0.0 - 0.4 X10*3/uL [facility] Basophils Absolute Auto 0.1 0.0 - 0.2 X10*3/uL [facility] NRBC Abs Auto 0.000 0.0 - 0.012 X10*3/uL [facility] Blood Venous blood specimen / Unknown 10/04/2024 10:50 AM EDT 10/04/2024 1:14 PM EDT Hannah Appram LIGHTER LAB BLOOD ORDERABLES Final Resu lt Performing Organization Address City/[facility]/ZIP Co de Phone Number [facility] [address] [place] [phone] * OBSX1 (09/28/2024 5:12 PM EDT) OBS1 NEGATIVE NEGATIVE [facility] 09/28/2024 5:12 PM EDT 09/28/2024 5:20 PM EDT Generic External Data Provider LAB BLOOD ORDERAB LES Final Result Performing Organization Address [facility] Co de Phone Number [facility] [address] [place] [phone] * Prothrombin Time-INR (09/28/2024 4:02 PM EDT) Prothrombin Time 11.6 10.9 - 12.4 SEC [facility] INTERNATIONAL NORM RATIO 1.0 0.9 - 1.1 [facility] Comment:INTERNATIONAL NORMAL IZED RATIO (INR) [...] ORDERAB LES Final Result Performing Organization Address City/[facility]/ZIP Co de Phone Number [facility] [address] [place] [address] [phone] * (ABNORMAL) Basic Metabolic Panel (09/28/2024 4:02 PM EDT) Sodium 138 135 - 145 mmol/L [facility] Potassium 4.2 3.3 - 5.1 mmol/L [facility] Chloride 104 96 - 108 mmol/L [facility] Carbon Dioxide 25 22 - 29 mmol/L [facility] Anion Gap 13 12 - 20 [facility] Urea Nitrogen (BUN) 21(H) 9 - 16 mg/dL [facility] Creatinine, Serum 0.66 0.5 - 1.4 mg/dL [facility] Creatinine Clr Calc Pharmacy 62.2 [facility] Comment:Provided height and weight: 157.48 cm,63 kg.eGFR (calculated from the MDRD study equation) and eCrCl(calculated from the Cockcroft-Gault equation) are based ondifferent parameters and may not yield comparable results.If eCrCl result is absurd, please check patient'sheight/weight. Estimated Glomerular Filt Rate >60 [facility] Comment:Chronic Kidney Disea se: Estimated GFR < 60 mL/min/1.30j0Hhjmpm Kidney Disease: Estimated GFR < 15 mL/min/1.73m2 Glucose 131(H) 60 - 115 mg/dL [facility] Calcium 9.2 8.4 - 10.2 mg/dL [facility] 09/28/2024 4:02 PM EDT 09/28/2024 4:06 PM EDT us Generic External Data Provider LAB BLOOD ORDERAB LES Final Result Performing Organization Address City/[facility]/ZIP Co de Phone Number [facility] [address] [place] [phone] * XR Chest 2 Views (09/20/2024 10:12 AM EDT) Anatomical Region Laterality Modality Chest Radiographic Tanya ging 09/20/2024 10:1 2 AM EDT Narrative 09/20/2024 10:27 AM EDT [address] [address] XRay Report Signed Patient: Celeste Abad MR#: [id number] 4 : 1945 Acct:[id number] Age/Sex: 78 / F ADM Date: 09/20/24 Loc: HO.XRAY Attending Dr: Maria Esther Blum NP Ordering Physician: Maria Esther Blum NP Date of Service: 09/20/24 Procedure(s): XR chest 2V Accession Number(s): [id number] cc: Eddie Marshall MD; Maria Esther Blum [...] 09/20/24 1024 DD/ 1012 TD/TT: 09/20/24 1017 Carpenter Assistant: Procedure Note Donotuseinterpreter, Image - 09/20/[address] [address] XRay Report Signed Patient: Celeste AbadMR#: [id number] 4 : 7Acct:[id number] Age/Sex: 78 / FADM Date: 09/20/24 Loc: [facility] Attending Dr: Maria Esther Blum NP Ordering Physician: Maria Esther Blum NP Date of Service: 09/20/24 Procedure(s): XR chest 2V Accession Number(s): [id number] cc: Name,Eddie GILMORE; Maria Esther Blum NP [...] 09/20/24 1024 DD/ 1012 TD/TT: 09/20/24 1017 Carpenter Assistant: [facility] External Provider IMG XR PROCEDURES Final Result * (ABNORMAL) Lipid Panel, Standard (01/16/2024 9:40 AM EDT) Triglycerides 199(H) <150 mg/dL [facility] Comment:Desirable Triglyceri de: less than 150 mg/dLBorderline High Triglyceride 150-199 mg/dLHigh Triglyceride: 200-499 mg/dLVery High Triglyceride: greater than or equal to 5OO mg/dL Cholesterol 150 <200 mg/dL [facility] Comment:Desirable Cholestero l: less than 200 mg/dLBorderline High Cholesterol: 200-239 mg/dLHigh Cholesterol: greater than 239 mg/dL LDL Cholesterol Calculated 63 <100 mg/dL [facility] Comment:Desirable LDL: less than 100 mg/dLNear Optimal/Above Optimal LDL: 110- 129 mg/dLBorderline High LDL: 130-159 mg/dLHigh LDL: 160-189 mg/dLVery High LDL: greater than or equal to 190 mg/dL HDL Cholesterol 48 >40 mg/dL [facility] Comment:Desirable HDL: great er than 40 mg/dL Note: This HDL assay may give artificially low results in patients with liver disease. Blood Venous blood specimen / Unknown 01/16/2024 9:40 AM EDT 01/16/2024 11:20 AM EDT us Eddie Marshall MD LAB BLOOD ORDERABLES Final Resul t Performing Organization Address City/[facility]/ZIP Co de Phone Number [facility] [address] [place] [phone] * Albumin, Random Urine W/Creatinine (01/16/2024 9:35 AM EDT) Creatinine, Urine 27.62 mg/dL [facility] Microalbumin Urine <5.0 mg/L [facility] Microalbum Creatinine Ratio Ur TNP <30 ug/mg cr [facility] Comment:Unable to calculate albumin/creatinine ratio due to lowmicroalbumin or creatinine result. Urine (Urine, Random) 01/16/2024 9:35 AM EDT 01/16/2024 11:12 AM EDT us Eddie Marshall MD LAB URINE ORDERABLES Final Resul t Performing Organization Address [facility]/ZIP Co de Phone Number [facility] [address] [place] [address] [phone] * Hm Diabetes Eye Exam (05/16/2023) Eye Exam Normal Normal us Eddie Marshall MD HEALTH MAINTENANCE Final Result * (ABNORMAL) Hepatitis Panel, General (11/18/2022 2:07 PM EDT) Hepatitis A Antibody Total REACTIVE( A) NON-REACT NAHID [facility] Comment: For additional information, please refer to http://[employer]/faq/COZ227 (This link is being provided for informational/ educational purposes only.) Hepatitis B Surface Antibody QL NON-REACT NAHID NON-REACT NAHID [facility] Hepatitis B Surface Ag NON-REACT NAHID NON-REACT NAHID [facility] Hepatitis B Core Antibody Total NON-REACT NAHID NON-REACT NAHID [facility] Hepatitis C Antibody NON-REACT NAHID NON-REACT NAHID [facility] Index 0.07 <1.00 [facility] Comment: HCV antibody was non-reactive. There is no laboratory evidence of HCV infection. In most cases, no further action is required. However, if recent HCV exposure is suspected, a test for HCV RNA (test code 36041) is suggested. For additional information please refer to http://[employer]/faq/XNO38k6 (This link is being provided for informational/ educational purposes only.) 11/18/2022 2:07 PM EDT 11/18/2022 2:09 PM EDT Narrative [facility] - 11/19/2022 6:51 AM EDT COLLECTION KIT GIVEN TO PATIENT. PATIENT ADVISED TO RETURN. Mckenzie Pillai [facility] BLOOD ORDERABLES Final Res ult [facility] [address], [place] [address] [facility] [address] [place] [address] from Last 3 Months or Most Recently Relevant to Health Maintenance Insurance [facility] [phone] Care Teams Admissions Manager Relationship Specialty Start Date End Date Name, MD Eddie [address] [place] [id number] PCP - General Family Medicine 09/16/15 Jerica [facility] 07/01/24
== END 2024-12-04 14:27 | disposition home or self-care (01) ==
LOC: HO.HPSW 13:40
PROVIDERS: PCP Internal Medicine Geriatric Medicine; Visit Provider Nurse Practitioner Family
DX: J44.9 Chronic obstructive pulmonary disease, unspecified (principal); J43.9 Emphysema, unspecified; Z87.891 Personal history of nicotine dependence; R91.8 Other nonspecific abnormal finding of lung field
CPT/HCPCS: 99214

== ENCOUNTER → 2024-12-04 13:39 | Outpatient (BNVA) | payer MEDICARE, SELFPAY | PROVIDERS: PCP Internal Medicine Geriatric Medicine; Visit Provider Nurse Practitioner Family | DX: J43.9 Emphysema, unspecified (principal); J44.9 Chronic obstructive pulmonary disease, unspecified; R91.8 Other nonspecific abnormal finding of lung field; Z87.891 Personal history of nicotine dependence | CPT/HCPCS: 99212 ==

== ENCOUNTER 2024-12-09 13:00 | Outpatient (RCR) | payer MEDICARE, SELFPAY ==
[2024-11-18 12:31] VITALS: BP 106/64; PULSE 90; RESP 16; TEMP 36.7; O2SAT 94
[2024-11-18] MEDS: Iron Sucrose Complex 200 MG in 0.9 % Sodium Chloride 100 ML 440 MG IV (12:37)
[2024-11-25 13:09] VITALS: BP 120/60; PULSE 92; RESP 16; TEMP 36.6; O2SAT 93
[2024-11-25] MEDS: Iron Sucrose Complex 200 MG/10 ML VIAL IVPUSH (13:27)
[2024-12-02 12:38] VITALS: BP 116/52; PULSE 90; RESP 16; TEMP 36.7; O2SAT 89
[2024-12-02] MEDS: Iron Sucrose Complex 200 MG in 0.9 % Sodium Chloride 100 ML 440 MG IV (12:47)
[2024-12-09 12:40] VITALS: BP 108/52; PULSE 90; RESP 16; TEMP 36.6; O2SAT 96
[2024-12-09] MEDS: Iron Sucrose Complex 200 MG in 0.9 % Sodium Chloride 100 ML 440 MG IV (12:59)
[2024-12-09 13:18] LABS: Hematocrit 38.2 % (37.0-47.0); Hemoglobin 11.9 g/dl (12.0-16.0); Mean Corpuscular HGB Conc 31.2 g/dl (31.0-35.0); Mean Corpuscular Hemoglobin 24.6 pg (27.0-33.0); Mean Corpuscular Volume 79.1 fL (80.0-98.0); Platelet Count 310 X10*3/uL (160-400); Red Blood Count 4.83 X10*6/uL (4.20-5.50); Red Cell Distribution Width 22.5 % (11.0-16.0); White Blood Count 9.9 X10*3/uL (4.8-10.8)
== END 2024-12-09 13:16 | disposition home or self-care (01) ==
LOC: HO.INF 13:00
PROVIDERS: Visit Provider Nurse Practitioner Family
DX: D64.9 Anemia, unspecified (principal)
CPT/HCPCS: 36415; 82728; 85027; 96365; 96374; J1756

== ENCOUNTER 2024-12-10 10:52 | Outpatient (AMB) | payer MEDICARE, SELFPAY ==
[2024-12-10 10:56] VITALS: BP 138/68; PULSE 83; O2SAT 94; BMI 25.9
--- NOTE | 2024-12-10 10:56 | A.OFFVIS_ITS ---
Vital Signs 12/10/24 10:56 Height 5 ft 1 in Weight 137 lb BMI 25.9 BP 138/68 Blood Pressure Location Lt brachial Position Sitting Pulse 83 Pulse Source Pulse Oximeter Pulse Oximetry (%) 94 Oxygen Delivery Method Room Air Intake Visit Reasons: Osteoporosis Intake Note: Patient present today for Osteoporosis follow up. Allergies scallops Allergy (Unknown, Verified 12/10/24 10:59) Unknown Medication List - Last Reconciled 12/10/24 by Bucky Velasquez MD albuterol sulfate 90 mcg/actuation 2 puffs inhalation Q4H PRN albuterol sulfate 2.5 mg (3 mL) inhalation Q4-6H PRN amlodipine 2.5 mg PO DAILY 90 days atorvastatin 40 mg PO DAILY betamethasone valerate 0.1% 1 appl topical DAILY biotin 5 mg PO DAILY calcium-vitamin D3-vitamin K 650 mg-12.5 mcg-40 mcg (Viactiv) tabs PO clopidogrel 75 mg PO QAM docusate sodium (Colace) 100 mg PO DAILY famotidine 20 mg PO BEDTIME fluticasone propion-salmeterol 230-21 mcg/actuation (Advair HFA) 2 puffs inhalation Q12H latanoprost 0.005% 1 drp ophthalmic (eye) BEDTIME levetiracetam (Keppra) 750 mg PO BID levothyroxine 112 mcg PO DAILY lidocaine HCl 2% 1 appl topical .at bedtime 4 weeks magnesium 500 mg PO DAILY melatonin 10 mg PO .hs metformin 500 mg PO BID milk thistle 500 mg PO BID mirabegron ER (Myrbetriq) 50 mg PO DAILY oxycodone-acetaminophen 5-325 mg 1 tab PO BID PRN pantoprazole 40 mg PO BID peg 400-propylene glycol (PF) 0.4-0.3 % (Systane (PF)) 1 drp ophthalmic (eye) BID simethicone 125 mg PO TID PRN trazodone 50 mg PO BEDTIME trospium ER 60 mg PO DAILY wheat dextrin (Benefiber Sugar Free (dextrin)) 1.5 grams PO BID HPI Comments Details: 79 YO Female with is seen in consultation at the request of PCP for Osteoporosis. First diagnosed in several yrs . Saw Raymundo Atkins in past. Never Received treatment in the past No history of pathologic fracture or ONJ. Fx L shoulder tripped . R foot fx 50 yrs ago after falling down stairs Has several servings of dietary calcium per day in the form of cheese, broccoli, ice cream . Not Takes Calcium supplement Takes 2000 IU of Vitamin D daily. Takes PPI, was on anticoagulant, on Keppra antiepileptic but no glucocorticoid medication. Not Does weight bearing exercise Fracture history: as above Height loss: Y [employer] history: Menarche at age 10- menopause at age 42 - nl menses Has history of Kidney stones: Denies family history of Osteoporosis or hip fracture. UTD on dental cleanings and sees dentist every 6 months. No planned upcoming dental work or extractions. DXA dated :FINDINGS:09/29/22 AP SPINE L1-L4: BMD 0.785 g/cm2, Z-score -1.4, T-score -3.3, osteoporosis. LEFT FEMUR, NECK: BMD 0.573 g/cm2, Z-score -1.3, T-score -3.3, osteoporosis. LEFT FEMUR, TOTAL: BMD 0.639 g/cm2, Z-score -1.1, T-score -2.9, osteoporosis. IDENTIFIED RISK FACTORS: Early menopause, anticonvulsant, height loss, history of fracture (adult), osteoporosis, recurrent falls, secondary osteoporosis. HISTORY OF FRACTURE: Shoulder. MEDICATIONS: Calcium, vitamin D. MM/XR DEXA axial skeleton IMPRESSION: 1. DIAGNOSIS: Osteoporosis based on the lowest T-score value of -3.3 in the lumbar spine and femoral neck History of recent TIAs and MIs-partial wheelchair-bound Secondary workup showed hypercalciuria - The patient is a 79-year-old female presenting with hypercalciuria. She has a history of recurrent nephrolithiasis, experiencing kidney stones frequently, which she often passes spontaneously. Despite the frequent occurrence of stones, she has not been treated with diuretics previously. The patient also has osteoporosis, which may be related to the calcium being leached from the bones into the urine. She has been taking calcium supplements, which are now being discontinued to assess their impact on her condition. Additionally, the patient reports having emphysema, which was diagnosed since her last visit. She also has a hiatal hernia with gastroesophageal reflux dise ase, which affects her dietary habits and sleep. - Calcium supplements: 600 mg daily, now discontinued due to hypercalciuria. - Vitamin D: Continued as per current regimen. - Vitamin K: Part of a combination pill, reason for use unclear. The patient consumes a diet that includes a significant amount of ice cream and protein drinks. She has a preference for salty foods, which may contribute to he r condition. [facility] Medical History Paraesophageal hernia Osteoporosis Lower GI bleed Rectal bleed Anemia Stable angina Essential hypertension CVA (cerebral vascular accident) CAD (coronary artery disease) Surgical History Status post cardiac catheterization History of cardiac cath History of adenoidectomy Hx of tonsillectomy Hx of hernia repair History of section History of cholecystectomy History of appendectomy Family History Mother Cancer Father Heart attack Social History Household Members: Children Housing: House Do you presently have visiting nurse or other home services: Yes Unable to assess alcohol history related to: Unknown Alcohol intake: never Patient Tobacco Use Status: Former Tobacco user Years Smoked: 30 +/- e-Cigarette/Vaping Use: Never Used Second Hand Smoke Exposure: No Substance Use Type: Marijuana service: No Current occupational status: retired Current occupation: right hand dominant Physical Exam Vital Signs: BMI result Body Mass Index 25.9 Assessment & Plan Assessment & Plan (1) Osteoporosis: Code(s): M81.0 - Age-related osteoporosis without current pathological fracture Category: Medical Plan: This is a 78-year-old white female with a history of osteoporosis. Secondary workup was positive for hypercalciuria . Plan is to continue the vitamin-D supplementation but hold the calcium supplementation.. With then repeat 24 hour urine for calcium and creatinine in about 4-6 weeks' time and use hydrochlorothiazide if necessary. Once 24 hour urine has normalized, would strongly consider use of anabolic therapy like Tymlos or Forteo proceeded by an anti resorptive therapy like Prolia or bisp hosphonate. Evenityis contraindicated in lieu of the recent history of [place] and CVA 1. Hypercalciuria Discontinue calcium supplements and repeat 24-hour urinary calcium test in six weeks. Consider hydrochlorothiazide if hypercalciuria persists. 2. Osteoporosis Continue vitamin D supplementation 1000 IU and monitor bone density. 3. Nephrolithiasis Advise dietary modifications to reduce salt intake and prevent stone formation. During the consultation, I discussed with the patient the importance of discontinuing calcium supplementation due to elevated urinary calcium levels and the potential benefits of hydrochlorothiazide if hypercalciuria persists. We also reviewed the need for dietary modifications to manage nephrolithiasis and the importance of continuing vitamin D supplementation for bone health. - Stop taking calcium supplements immediately. - Continue taking vitamin D as recommended. - Follow a low-salt diet to help prevent kidney stones. - Schedule a repeat 24-hour urinary calcium with sodium test in six weeks. - The patient had an opportunity to ask questions regarding treatment plan. The patient expressed understanding and agreement with the above treatment plan. Patient was informed and verbally consented to the use of an ambient scribe for clinic note documentation during this visit. Orders: Orders Creatinine, 24 Hr Group 6 Weeks R82.994 - Hypercalciuria Calcium, 24 Hr Ur 6 Weeks R82.994 - Hypercalciuria Vitamin D 25-OH Total 6 Weeks R82.994 - Hypercalciuria Sodium, 24Hr Urine Group 6 Weeks R82.994 - Hypercalciuria Coding Level of Care Code Est Pt Level 3 (15660) Diagnoses Osteoporosis M81.0
--- OUTSIDE RECORDS SUMMARY | 2024-12-10 12:21 | XMS_ITS | Clinical Summary ---
Author Organization [employer] Address [address] [place] [address] 7[address] [place] [address] Care Team Providers Care Banking Pin Adjuster Name Role Phone Name, Eddie GILMORE Primary Care Provider [phone] Allergies Active Allergy Reactions Criticality Noted Date [...] 06/01/20 22 Active Blood Glucose Monitoring Suppl (ideacts innovations Verio Flex System) w/Device kit USE DIRECTED [...] in the morning. 01/10/20 23 Active Lancets (Beaumaris NetworksTouch Delica Plus Uccmit41U) miscIndication s:Controlled type 2 diabetes mellitus with complication, without long-term current use of insulin ([facility]) USE TO CHECK BLOOD SUGAR TWICE A DAY 100 each 5 09/15/19 24 Active glucose blood (Beaumaris NetworksTouch Verio) test stripIndicatio ns:Controlled type 2 diabetes mellitus with complication, without long-term current use of insulin ([facility]) CHECK BY FINGERSTICK TWICE DAILY 50 [...] refer stat to ENT for cauterization, possible PROJECTOR OPERATOR scope Recommend anterior nasal packing if she is bleeding heavily nursing home (current) use of opiate analgesic 03/20 Overview (09/10/2024): Dx: chronic pain syndrome/back pain Rx: Percocet 5/325 every 8 hours 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 She understands this is the [...] Type Department Care Team Description 12/02/2024 Refill [facility] [address] [place] [address] Name, MD Eddie Hypothyroidism, unspecified type 12/02/2024 Refill [facility] [address] [place] [address] Eddie Marshall MD Chronic pain syndrome 11/27/2024 Refill [facility] [place] [address] Eddie Marshall MD 11/25/2024 Orders Only GENERIC EXTERNAL DATA DEPARTMENT Provider, Generic External Data 11/12/2024 9:45 AM EDT Office Visit [facility] [place] [address] Mckenzie Trent, AIRLINE FLIGHT ATTENDANT Chronic pain syndrome (Primary Dx); 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 11/12/2024 Travel 11/06/2024 Results Follow-Up [facility] [place] [address] Eddie Marshall MD Urinalysis, Complete, with Reflex to Culture, Culture, Urine, Routine 11/05/2024 Orders Only GENERIC EXTERNAL DATA DEPARTMENT Provider, Generic External Data 11/04/2024 Telephone [facility] [place] [address] Eddie Marshall MD Call Back Request 11/04/2024 Refill [facility] [place] [address] Eddie Marshall MD Chronic pain syndrome 11/01/2024 Telephone [facility] [place] [address] Eddie Marshall MD Med Refill 10/29/2024 2:30 PM EDT Office Visit [facility] [place] [address] Eddie Marshall MD Iron deficiency anemia due to chronic blood loss (Primary Dx); Chronic insomnia; Controlled type 2 diabetes mellitus with complication, without long-term current use of insulin ([facility]); Chronic obstructive pulmonary disease, unspecified COPD type ([facility]); Pulmonary nodules; Former smoker 10/29/2024 Travel 10/28/2024 Telephone [facility] [place] [address] Eddie Marshall MD CHART PREP 10/27/2024 Refill [facility] [place] [address] Eddie Marshall MD 10/03/2024 Refill [facility] [address] [place] [address] Eddie Marshall MD 10/03/2024 Telephone [facility] [address] [place] [phone] Eddie Marshall MD Med Refill 10/01/2024 Refill [facility] [address] [place] [address] Eddie Marshall MD Chronic pain syndrome 09/30/2024 2:30 PM EDT Office Visit [address] [address] Hannah Paula NP Low hemoglobin (Primary Dx) 09/30/2024 Travel 09/30/2024 Orders Only GENERIC EXTERNAL DATA DEPARTMENT Provider, Generic External Data 09/28/2024 Orders Only GENERIC EXTERNAL DATA DEPARTMENT Provider, Generic External Data 09/27/2024 Telephone [facility] [address] [place] [phone] Matilda Millan RN ED follow up 09/27/[address] [address] Eddie Marshall MD ER Follow-up 09/26/[address] [address] Eddie Marshall MD Durable Medical Equipment 09/24/[address] [address] Eddie Marshall MD Durable Medical Equipment (Hip protectors) 09/24/2024 Telephone [facility] [address] [place] [address] Eddie Marshall MD DME Transport Chair 09/20/2024 Orders Only [facility] External Provider, [facility] 09/19/2024 Telephone [facility] [address] [place] [phone] Eddie Marshall MD Call Back Request 09/15/[address] [address] Eddie Marshall MD 09/11/2024 Telephone [facility] [address] [place] [phone] Eddie Marshall MD Durable Medical Equipment 09/10/2024 9:45 AM EDT Office Visit [facility] [address] [place] [address] Mckenzie Trent FNP Chronic pain syndrome (Primary Dx); 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 I have abad sing 10/29/[address] you li [...] Care Team (Late st Contact Info) Description 02/19/2025 11:15 AM EDT Office Visit [facility] [address] [place] [address] Name, MD Eddie [address] [place] [address] Health Maintenance Due Date Last Done Comments [...] 08/18, 03/18/2020 Alcohol/Substance Use Screening 02/04/2025 02/05/2024 Influenza Vaccine (Season Ended) 2025 04/07/2016, 03/23/2015, 03/27/2014, Additional history exists Diabetes: Hemoglobin A1C 05/01/2025 025, 08/02/2024, 02/05/2024, Additional history exists Eye Exam 05/16/2025 05/16/2023, 0502/2012, 10/21/2010, Additional history exists SDOH Screening 10/29/2025 [...] without long-term current use of insulin ([facility]) POCT GLUCOSE Routine 10/29/2024 2:27 PM EDT Controlled type 2 diabetes mellitus with complication, without long-term current use of insulin ([facility]) CBC WITH AUTO DIFFERENTIAL Routine 10/04/2024 [...] 09/10/2024 1:29 PM EDT 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 Phosphorus 4.3 2.7 - 4.5 mg/dL [facility] 11/25/2024 2:08 PM EDT 11/25/2024 2:08 PM EDT us Generic External Data Provider LAB BLOOD ORDERAB LES Final Result [facility] [address] [place] [phone] * POCT ADRIAN-14 Urine Drug Screen (11/12/2024 10:14 AM EDT) Only the most recent of2 resultswithin the time period is included. Oxycodone Screen, Urine Positive Urine Urine specimen obtained by clean catch procedure / Unknown 11/12/2024 10:14 AM EDT Narrative Estrellita Crenshaw RN - 11/12/2024 10:14 AM EDT .UTOX cup Lot#[id number] Exp. 04/18/26 Internal Pass Control Mckenzie Trent AIRLINE FLIGHT ATTENDANT POINT OF CARE TEST ENTER/EDIT ORDERABLES Final Result * T-SPOT??.TB (11/05/2024 12:13 PM EDT) T Spot TB Negative Negative [facility] Comment:A negative test resu lt [...] as aquantitative test. TS PANEL A 2 [facility] TS PANEL B 3 [facility] Negative Control Passed [facility] Positive Control Passed [facility] Comment:For additional infor vimal, please refer tohttp://education.SOAK (Smart [employer]ational Agricultural toolKit).Integrated Systems Inc./faq/HKL411(This link is being provided for informational/educational purposes only.)THIS TEST WAS PERFORMED AT:[employer] [id number] [place] [address]PYGQWOBANKITA MADDOX MD,PHD 11/05/2024 12:1 3 PM EDT 11/05/2024 1:07 PM EDT us Eddie Marshall MD LAB BLOOD ORDERABLES Final Resul t [facility] [address] [place] [phone] [phone] * (ABNORMAL) Urinalysis, Complete, with Reflex to Culture (11/05/2024 11:16 AM EDT) Color Urine Yellow [facility] Appearance Urine Cloudy [facility] PH 6.5 5.0 - 9.0 [facility] Glucose Urine UA Negative Negative mg/dL [facility] Urine Blood Negative Negative [facility] Specific [place] - Urine 1.015 1.005 - 1.025 [facility] Urine Protein Negative Neg-Trace mg/dL [facility] Urine Ketones Negative Negative mg/dL [facility] Nitrite Urine Negative Negative [facility] Leukocyte Esterase Urine Moderate (2+)(A) Negative [facility] RBC Urine 0-2 0 - 2 /HPF [facility] Urine WBC 21-50(A) 0 - 5 /HPF [facility] Urine Squamous Epithelial Cell 3-5 0 - 2 /HPF [facility] Urine Bacteria 4+ None Seen [facility] Hyaline Casts, Urine 0-2 0 - 2 /LPF [facility] 11/05/2024 11:1 6 AM EDT 11/05/2024 11:25 AM EDT [facility] - 11/05/2024 11:35 AM EDT Urine, Clean Catch Generic External Data Provider LAB URINE ORDERAB LES Final Result [facility] [address] [place] [phone] * Culture, Urine, Routine (11/05/2024 12:00 AM EDT) Urine Urine specimen obtained by clean catch procedure / Unknown 11/05/2024 11/05/2024 Comment:UACC [facility] - 11/07/2024 7:44 AM EDT Escherichia coli Quant > 100,000 cfu/mL Escherichia coli: Ampicillin 8(S) Escherichia coli: Cefazolin (Urine) 4(S) Escherichia coli: Cefepime <=0.12(S) Escherichia coli: Ceftriaxone <=0.25(S) Escherichia coli: Ciprofloxacin <=0.06(S) Escherichia coli: Gentamicin <=1(S) Escherichia coli: Nitrofurantoin <=16(S) Escherichia coli: Trimethoprim/Sulfamethoxazole <=20(S) Specimen Source: Urine clean catch Generic External Data Provider LAB MICROBIOLOGY - GENERAL ORDERABLES Final Result [facility] [address] [place] [phone] * POCT HGB A1C (10/29/2024 2:29 PM EDT) [facility] Hemoglobin A1C 5.4 4.0 - 6.0 % QC Media Lot # [id number] Lot# Expiration Date ,727 Blood 10/29/2024 2:29 PM EDT Eddie Marshall MD POINT OF CARE TEST ENTER/EDIT OR DERABLES Final Result * POCT Glucose (10/29/2024 2:27 PM EDT) [facility] Glucose Blood, POC 122 60 - 200 mg/dL [employer] Lot # [id number] Lot# Expiration Date 100,725 Blood Capillary blood specimen / Unknown 10/29/2024 2:27 PM EDT Eddie Marshall MD POINT OF CARE TEST ENTER/EDIT OR DERABLES Final Result * (ABNORMAL) CBC auto differential (10/04/2024 10:50 AM EDT) Only the most recent of2 resultswithin the time period is included. [facility] White Blood Count 8.9 4.8 - 10.8 X10*3/uL [facility] Red Blood Count 3.73(L) 4.20 - 5.50 X10*6/uL [facility] Hemoglobin 8.7(L) 12.0 - 16.0 g/dl [facility] Hematocrit 29.7(L) 37.0 - 47.0 % [facility] Mean Corpuscular Volume 79.6(L) 80.0 - 98.0 fL [facility] Mean Corpuscular Hemoglobin 23.3(L) 27.0 - 33.0 pg [facility] Mean Corpuscular HGB Conc 29.3(L) 31.0 - 35.0 g/dl [facility] Red Cell Distribution Width 20.4(H) 11.0 - 16.0 % [facility] Platelet Count 440(H) 160 - 400 X10*3/uL [facility] Mean Platelet Volume 9.9 9.4 - 12.3 fL [facility] Neutrophils Percent Auto 67.6 45 - 73 % [facility] Imm Gran Pct Auto 0.3 0.0 - 0.4 % [facility] Lymphocytes Percent Auto 20.0 20 - 40 % [facility] Monocytes Percent Auto 9.3 2 - 11 % [facility] Eosinophils Percent Auto 2.0 0 - 4 % [facility] Basophils Percent Auto 0.8 0 - 2 % [facility] NRBC Pct Auto 0.0 0.0 - 0.2 /100WBC [facility] Neutrophils Absolute Auto 6.0 2.0 - 8.3 x10*3/uL [facility] Imm Gran Abs Auto 0.03 0.00 - 0.03 X10*3/uL [facility] Lymphocytes Absolute Auto 1.8 1.2 - 4.9 X10*3/uL [facility] Monocytes Absolute Auto 0.8 0.1 - 1.2 X10*3/uL [facility] Eosinophils Absolute Auto 0.2 0.0 - 0.4 X10*3/uL [facility] Basophils Absolute Auto 0.1 0.0 - 0.2 X10*3/uL [facility] NRBC Abs Auto 0.000 0.0 - 0.012 X10*3/uL [facility] Blood Venous blood specimen / Unknown 10/04/2024 10:50 AM EDT 10/04/2024 1:14 PM EDT Hannah Nisa PROJECTOR OPERATOR LAB BLOOD ORDERABLES Final Resu lt Performing Organization Address [facility] Co de Phone Number [facility] [address] [place] [phone] * OBSX1 (09/28/2024 5:12 PM EDT) OBS1 NEGATIVE NEGATIVE [facility] 09/28/2024 5:12 PM EDT 09/28/2024 5:20 PM EDT Generic External Data Provider LAB BLOOD ORDERAB LES Final Result Performing Organization Address [facility] Phone Number [facility] [address] [place] [phone] * Prothrombin Time-INR (09/28/2024 4:02 PM EDT) Pathologist [facility] Prothrombin Time 11.6 10.9 - 12.4 SEC [facility] INTERNATIONAL NORM RATIO 1.0 0.9 - 1.1 [facility] Comment:INTERNATIONAL NORMAL IZED RATIO [...] ORDERAB LES Final Result Performing Organization Address [facility] Co de Phone Number [facility] [address] [place] [phone] * (ABNORMAL) Basic Metabolic Panel (09/28/2024 4:02 PM EDT) Sodium 138 135 - 145 mmol/L [facility] Potassium 4.2 3.3 - 5.1 mmol/L [facility] Chloride 104 96 - 108 mmol/L [facility] Carbon Dioxide 25 22 - 29 mmol/L [facility] Anion Gap 13 12 - 20 [facility] Urea Nitrogen (BUN) 21(H) 9 - 16 mg/dL [facility] Creatinine, Serum 0.66 0.5 - 1.4 mg/dL [facility] Creatinine Clr Calc Pharmacy 62.2 [facility] Comment:Provided height and weight: 157.48 cm,63 kg.eGFR (calculated from the MDRD study equation) and eCrCl(calculated from the Cockcroft-Gault equation) are based ondifferent parameters and may not yield comparable results.If eCrCl result is absurd, please check patient'sheight/weight. Estimated Glomerular Filt Rate >60 [facility] Comment:Chronic Kidney Disea se: Estimated GFR < 60 mL/min/1.93g2Zwzszu Kidney Disease: Estimated GFR < 15 mL/min/1.73m2 Glucose 131(H) 60 - 115 mg/dL [facility] Calcium 9.2 8.4 - 10.2 mg/dL [facility] 09/28/2024 4:02 PM EDT 09/28/2024 4:06 PM EDT us Generic External Data Provider LAB BLOOD ORDERAB LES Final Result [facility] [address] [place] [phone] * XR Chest 2 Views (09/20/2024 10:12 AM EDT) Anatomical Region Laterality Modality Chest Radiographic Tanya ging 09/20/2024 10:1 2 AM EDT Narrative 09/20/2024 10:27 AM EDT [address] [address] XRay Report Signed Patient: Celeste Abad MR#: [id number] 4 : 1945 Acct:[id number] Age/Sex: 78 / F ADM Date: 09/20/24 Loc: [facility] Attending Dr: Maria Esther Blum PROJECTOR OPERATOR Ordering Physician: Maria Esther Blum NP Date of Service: 09/20/24 Procedure(s): XR chest 2V Accession Number(s): [id number] cc: Eddie Marshall MD; Maria Esther Blum [...] 09/20/24 1024 DD/ 1012 TD/TT: 09/20/24 1017 Welfare Visitor: Procedure Note Donotuseinterpreter, Image - 09/20/2024 [facility] [address] [place] [address] XRay Report Signed Patient: Celeste AbadMR#: [id number] 4 : 1945cct:[id number] Age/Sex: 78 / FADM Date: 09/20/24 Loc: [facility] Attending Dr: Maria Esther Blum NP Ordering Physician: Maria Esther Blum NP Date of Service: 09/20/24 Procedure(s): XR chest 2V Accession Number(s): [id number] cc: Joanna,Eddie GILMORE; Maria Esther Blum NP [...] 09/20/24 1024 DD/ 1012 TD/TT: 09/20/24 1017 Welfare Visitor: [facility] External Provider IMG XR PROCEDURES Final Result * (ABNORMAL) Lipid Panel, Standard (01/16/2024 9:40 AM EDT) Triglycerides 199(H) <150 mg/dL [facility] Comment:Desirable Triglyceri de: less than 150 mg/dLBorderline High Triglyceride 150-199 mg/dLHigh Triglyceride: 200-499 mg/dLVery High Triglyceride: greater than or equal to 5OO mg/dL Cholesterol 150 <200 mg/dL [facility] Comment:Desirable Cholestero l: less than 200 mg/dLBorderline High Cholesterol: 200-239 mg/dLHigh Cholesterol: greater than 239 mg/dL LDL Cholesterol Calculated 63 <100 mg/dL [facility] Comment:Desirable LDL: less than 100 mg/dLNear Optimal/Above Optimal LDL: 110- 129 mg/dLBorderline High LDL: 130-159 mg/dLHigh LDL: 160-189 mg/dLVery High LDL: greater than or equal to 190 mg/dL HDL Cholesterol 48 >40 mg/dL [facility] Comment:Desirable HDL: great er than 40 mg/dL Note: This HDL assay may give artificially low results in patients with liver disease. Blood Venous blood specimen / Unknown 01/16/2024 9:40 AM EDT 01/16/2024 11:20 AM EDT us Eddie Marshall MD LAB BLOOD ORDERABLES Final Resul t Performing Organization Address [facility] de Phone Number [facility] [address] [place] [phone] * Albumin, Random Urine W/Creatinine (01/16/2024 9:35 AM EDT) Creatinine, Urine 27.62 mg/dL [facility] Microalbumin Urine <5.0 mg/L [facility] Microalbum Creatinine Ratio Ur TNP <30 ug/mg cr [facility] Comment:Unable to calculate albumin/creatinine ratio due to lowmicroalbumin or creatinine result. Urine (Urine, Random) 01/16/2024 9:35 AM EDT 01/16/2024 11:12 AM EDT us Eddie Marshall MD LAB URINE ORDERABLES Final Resul t Performing Organization Address [facility] de Phone Number [facility] [address] [place] [phone] * Diabetes Eye Exam (05/16/2023) Eye Exam Normal Normal us Eddie Marshall MD HEALTH MAINTENANCE Final Result * (ABNORMAL) Hepatitis Panel, General (11/18/2022 2:07 PM EDT) Hepatitis A Antibody Total REACTIVE( A) NON-REACT NAHID [employer] [facility] Comment: For additional information, please refer to http://education.SiphonLabs/faq/QHM738 (This link is being provided for informational/ educational purposes only.) Hepatitis B Surface Antibody QL NON-REACT NAHID NON-REACT NAHID [employer] [facility] Hepatitis B Surface Ag NON-REACT NAHID NON-REACT NAHID [employer] [place] [facility] Hepatitis B Core Antibody Total NON-REACT NAHID NON-REACT NAHID [facility] Hep[facility] C Antibody NON-REACT NAHID NON-REACT NAHID [employer] [place] [facility] Index 0.07 <1.00 [employer] [place] [facility] Comment: HCV antibody was non-reactive. There is no laboratory evidence of HCV infection. In most cases, no further action is required. However, if recent HCV exposure is suspected, a test for HCV RNA (test code 00492) is suggested. For additional information please refer to http://education.SiphonLabs/faq/GKY02u1 (This link is being provided for informational/ educational purposes only.) 11/18/2022 2:07 PM EDT 11/18/2022 2:09 PM EDT [facility] - 11/19/2022 6:51 AM EDT COLLECTION KIT GIVEN TO PATIENT. PATIENT ADVISED TO RETURN. Mckenzie Pillai [facility] LAB BLOOD ORDERABLES Final Res ult [facility] [address] [place] [address] [employer] [place] [facility] [address] [place] [phone] from Last 3 Months or Most Recently Relevant to Health Maintenance Insurance [employer] Care Teams Banking Pin Adjuster Relationship Specialty Start Date End Date Name, MD Eddie [address] [place] [phone] PCP - General Family Medicine 09/16/15 Jer[place] [facility] 07/01/24
== END 2024-12-10 11:23 | disposition home or self-care (01) ==
LOC: HO.ENCR 10:52
PROVIDERS: PCP Internal Medicine Geriatric Medicine; Visit Provider Internal Medicine Endocrinology, Diabetes & Metabolism
DX: M81.0 Age-related osteoporosis without current pathological fracture (principal)
CPT/HCPCS: 99213

== ENCOUNTER → 2024-12-10 10:52 | Outpatient (BNVA) | payer MEDICARE, SELFPAY | PROVIDERS: PCP Internal Medicine Geriatric Medicine; Visit Provider Internal Medicine Endocrinology, Diabetes & Metabolism | DX: M81.0 Age-related osteoporosis without current pathological fracture (principal); R82.994 Hypercalciuria | CPT/HCPCS: 99212 ==

== ENCOUNTER 2025-01-09 12:32 | Outpatient (REF) | payer MEDICARE, SELFPAY ==
--- NOTE | ~2025-01-09 | CT_ITS ---
EXAMINATION: CT CHEST WITHOUT CONTRAST CLINICAL INFORMATION: R91.8 - Other nonspecific abnormal finding of lung field COMPARISON: CT from August 26, 2024 x-ray from September 20, 2024 DLP: 219 mGY*cm TECHNIQUE: Multidetector volumetric CT imaging of the chest was done. Axial MIP volume rendering provided. Sagittal and coronal reformatted images were obtained. This CT examination was performed using dose optimization techniques as appropriate, variously including the following: *Automated exposure control *Adjustment of mA and/or kV according to patient size (this includes techniques or standardized protocols for targeted exams where dose is matched to indication/reason for exam; i.e. extremities or head) *Use of iterative reconstruction technique FINDINGS: LUNGS: Again seen are moderate changes of centrilobular and paraseptal emphysema. Measurements performed on axial series CT #10 Image 65: Posterior segment right upper lobe 8 mm solid pulmonary nodule on the prior examination now demonstrates vague groundglass density. Image 75: Anterior segment right upper lobe subpleural pulmonary nodule is seen measuring 5 mm diameter now demonstrates faint groundglass density. Image 91: Right middle lobe groundglass nodular density measuring 4 x 7 mm it is slightly denser than on the prior study. There is increased groundglass density in the thickened portion of the right lower lobe lung base. Again seen is linear density across the left lower lobe with pleural retraction consistent with scarring. In the far posterior aspect of the left lower lobe, there is airspace and groundglass density that is new since the prior. MEDIASTINUM: Anterior to the right side of janet, there is a lymph node that measured 10 mm short axis, unchanged. There is no adenopathy. Large hiatal hernia is again noted. Moderate atherosclerotic calcifications are evident in the aorta. CORONARY ARTERY CALCIFICATION: Present PLEURA: There is no pleural effusion. AXILLA: No lymphadenopathy. UPPER ABDOMEN: There are clips from cholecystectomy. OSSEOUS STRUCTURES: Multilevel degenerative disc disease with disc space vacuum phenomenon is present. CT/CT chest wo IV con IMPRESSION: Solid pulmonary nodules in the right upper lobe demonstrates decreasing density and now show groundglass density may been related to inflammatory or infectious etiologies. 5 x 7 mm Groundglass density in the right middle lobe is similar in size the prior, but shows slight increased density. Per Fleischner Society recommendation: Follow-up in 6-[address] and then reassess follow-up plain. Stable 1 cm right lower paratracheal/precarinal lymph node. Recommend continued surveillance with follow-up CT in 6-12 months. Increasing opacity in the posterior aspect of the left lower lobe could represent atelectasis or pneumonia. Large hiatal hernia involving the stomach fundus and body. Stable moderate changes of emphysema, most advanced in the right apex. Electronically signed by: Fab Alicia MD 01/09/2025 02:11 PM EDT
--- OUTSIDE RECORDS SUMMARY | 2025-01-09 12:53 | XMS_ITS | Clinical Summary ---
Author Organization [employer] Address [address] [place] [address] [address] [place] [address] Care Team Providers Care Behavioral Health Case Manager Name Role Phone Name, Eddie GILMORE Primary Care Provider [phone] Allergies Active Allergy Reactions Criticality Noted Date [...] 06/01/20 22 Active Blood Glucose Monitoring Suppl (AutoBike Verio Flex System) w/Device kit USE DIRECTED 03/16/20 22 Active MILK THISTLE EXTRACT PO OTC daily 04/20/20 21 Active Myrbetriq 50 MG 24 hr tablet TAKE ONE TABLET BY MOUTH EVERY DAY DO NOT CRUSH OR CHEW 05/11/20 22 Active simethicone (Mylicon,Gas-X ) 125 MG capsule OTC daily PRN gas/bloating 05/09/20 22 Active acetaminophen (Tylenol 8 Hour) 650 [...] mouth in the morning. 01/10/20 23 Active naloxone (Narcan) 4 mg/0.1 mL nasal [...] mg by mouth Once per day. Active betamethasone valerate (Valisone) 0.1 % cream APPLY A THIN LAYER ONTO THE SKIN TO THE AFFECTED AREAS ONCE DAILY 15 g 05/22/20 24 Active metFORMIN (Glucophage) 500 MG tablet [...] PUFFS BY MOUTH EVERY TWELVE HOURS Active cholecalcifero l VITAMIN D (Vitamin D-3) 50 MCG (2000 UT) tablet TAKE 1 TABLET BY MOUTH EVERY MORNING 90 tablet 2 12/12/19 25 Active Lancets (OneTouch Delica Plus [id number]) miscIndication s:Controlled type 2 diabetes mellitus with complication, without long-term current use of insulin ([facility]) USE TO CHECK BLOOD SUGAR TWICE A DAY 100 each 5 12/12/19 25 Active famotidine (Pepcid) 40 MG tablet TAKE 1 TABLET BY MOUTH EVERY DAY 90 tablet 2 12/12/19 25 Active glucose blood (OneTouch Verio) test stripIndicatio ns:Controlled type 2 diabetes mellitus with complication, without long-term current use of insulin ([facility]) USE TO CHECK BLOOD SUGAR TWICE A DAY 50 strip 5 12/12/19 25 Active levothyroxine (Synthroid, Levoxyl) 112 MCG tabletIndicati ons:Hypothyroi dism, unspecified type TAKE 1 TABLET BY MOUTH EVERY DAY 30 tablet 3 12/17/19 25 Active melatonin 5 MG tablet Take 2 tablets (10 mg) by mouth Once per day. At bedtime 30 tablet 3 12/17/19 25 Active Polyethyl Glycol-Propyl Glycol (Systane) 0.4-0.3 % solution 1 drop in both eyes twice daily 5 mL 3 12/17/19 25 Active latanoprost (Xalatan) 0.005 % ophthalmic solution Administer 1 drop into both eyes Once per day. 2.5 mL 3 12/17/19 25 Active oxyCODONE-acet aminophen (Percocet) 5-325 MG tabletIndicati ons:Chronic pain syndrome Take 1 tablet by mouth every 8 (eight) hours if needed for severe pain for up to 28 days. Do not start before December 31, 2024. 84 tablet 01/01/20 25 025 Active atorvastatin (Lipitor) 40 MG tablet TAKE 1 TABLET BY MOUTH EVERY MORNING 30 tablet 5 01/04/20 25 Active traZODone (Desyrel) 50 MG tablet TAKE 1 TABLET BY MOUTH AT BEDTIME 30 tablet 01/04/20 25 Active latanoprost (Xalatan) 0.005 % ophthalmic solution 06/07/20 22 025 Discontinued(R eorder (will not trigger notification to Pharmacy)) Polyethyl Glycol-Propyl Glycol (Systane) 0.4-0.3 % solution 1 drop in both eyes twice daily 04/19/20 22 025 Discontinued(R eorder (will not trigger notification to Pharmacy)) Lancets (OneTouch Delica Plus [id number]) miscIndication s:Controlled type 2 diabetes mellitus with complication, without long-term current use of insulin ([facility]) USE TO CHECK BLOOD SUGAR TWICE A DAY 100 each 5 09/15/19 24 025 Discontinued(R eorder (will not trigger notification to Pharmacy)) glucose blood (OneTouch Verio) test stripIndicatio ns:Controlled type 2 diabetes mellitus with complication, without long-term current use of insulin ([facility]) CHECK BY FINGERSTICK TWICE DAILY 50 strip 11 10/06/19 24 025 Discontinued(R eorder (will not trigger notification to Pharmacy)) cholecalcifero l (Vitamin D-3) 50 MCG (2000 UT) tablet Take 2,000 Units by mouth Once per day. 90 tablet 2 03/28/20 24 025 Discontinued famotidine (Pepcid) 40 MG tablet Take 1 tablet (40 mg) by mouth Once per day. OTC 90 tablet 2 03/28/20 24 025 Discontinued(R eorder (will not trigger notification to Pharmacy)) melatonin 5 MG tablet Take 2 tablets by mouth Once per day. At bedtime 03/28/20 24 025 Discontinued(R eorder (will not trigger notification to Pharmacy)) atorvastatin (Lipitor) 40 MG tablet TAKE 1 TABLET BY MOUTH EVERY MORNING 30 tablet 5 07/17/19 25 025 Discontinued(R eorder (will not trigger notification to Pharmacy)) traZODone (Desyrel) 50 MG tablet TAKE 1 TABLET BY MOUTH AT BEDTIME 30 tablet 11/28/19 25 025 Discontinued(R eorder (will not trigger notification to Pharmacy)) levothyroxine (Synthroid, Levoxyl) 112 MCG tabletIndicati ons:Hypothyroi dism, unspecified type TAKE 1 TABLET BY MOUTH EVERY DAY 90 tablet 12/03/19 25 025 Discontinued(R eorder (will not trigger notification to Pharmacy)) oxyCODONE-acet aminophen (Percocet) 5-325 MG tabletIndicati ons:Chronic pain syndrome Take 1 tablet by mouth every 8 (eight) hours if needed for severe pain for up to 28 days. Do not start before December 03, 2024. 84 tablet 12/04/19 25 025 Discontinued(R eorder (will not trigger notification to Pharmacy)) traZODone (Desyrel) 50 MG tablet TAKE 1 TABLET BY MOUTH AT BEDTIME 30 tablet 12/17/19 25 025 Discontinued(R eorder (will not trigger notification to Pharmacy)) Active Problems Problem Noted Date Diagnosed Date Chronic obstructive pulmonary disease 10/29/2024 Overview (10/29/2024): emphysema Pulmonary nodules 10/29/2024 Atherosclerosis of superior mesenteric artery Epistaxis 08/02/2024 Assessment & Plan (12/28/2024 8:05 AM EDT): -stable at this time. 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 She understands this is the chronic [...] organization. Date Type Department Care Team Description 01/03/2025 Refill [facility] [address] [place] [address] Eddie Marshall MD 12/30/2024 Telephone [facility] [place] [address] 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, JULY Recommend CROWN AND BRIDGE TECHNICIAN Tele Tier 2 12/30/2024 Refill [facility] [address] [place] [address] Eddie Marshall MD Chronic pain syndrome 12/16/2024 Telephone [facility] [address] [place] [phone] Eddie Marshall MD Medication Question 12/16/2024 Refill [facility] [address] [place] [address] Eddie Marshall MD Hypothyroidism, unspecified type 12/11/2024 Telephone [facility] [address] [place] [phone] Eddie Marshall MD Medication Question 12/11/2024 Telephone [facility] [address] [place] [phone] Eddie Marshall MD Med Refill 12/11/2024 Refill [facility] [address] [place] [phone] Eddie Marshall MD Controlled type 2 diabetes mellitus with complication, without long-term current use of insulin ([facility]) 12/02/2024 Refill [facility] [place] [address] Eddie Marshall MD Hypothyroidism, unspecified type 12/02/2024 Refill [facility] [address] [place] [phone] Eddie Marshall MD Chronic pain syndrome 11/27/2024 Refill [facility] [address] [place] [phone] Eddie Marshall MD 11/25/2024 Orders Only GENERIC EXTERNAL DATA DEPARTMENT Provider, Generic External Data 11/12/2024 9:45 AM EDT Office Visit [facility] [place] [address] Mckenzie Trent FNP Chronic pain syndrome (Primary Dx); shelter (current) use of opiate analgesic 11/12/2024 Travel 11/06/2024 Results Follow-Up [facility] [place] [place] [address] Eddie Marshall MD Urinalysis, Complete, with Reflex to Culture, Culture, Urine, Routine 11/05/2024 Orders Only GENERIC EXTERNAL DATA DEPARTMENT Provider, Generic External Data 11/04/[address] [address] Eddie Marshall MD Call Back Request 11/04/[address] [address] Eddie Marshall MD Chronic pain syndrome 11/01/[address] [address] Eddie Marshall MD Med Refill 10/29/2024 2:30 PM EDT Office Visit [address] [address] Eddie Marshall MD Iron deficiency anemia due to chronic blood loss (Primary Dx); Chronic insomnia; Controlled type 2 diabetes mellitus with complication, without long-term current use of insulin ([facility]); Chronic obstructive pulmonary disease, unspecified COPD type ([facility]); Pulmonary nodules; Former smoker 10/29/2024 Travel 10/28/[address] [address] Eddie Marshall MD CHART PREP 10/27/[address] [address] Eddie Marshall MD from Last 3 Months Immunizations Immunization Administration Dates Next Due Influenza injectable quadriv alent IIV4 with preservative 04/07/2016 Influenza, IIV3, injectable 03/23/2015,1 ,03/08/2013,04/06,05/01/2008,04/19/2007,05/10/2006 ,03/15/2005 Novel [id number], preservative-free 05/22/2009 Pneumococcal Polysaccharide PPSV23 07/11/2013, TD [...] Care Team (Late st Contact Info) Description 02/11/2025 9:45 AM EDT Office Visit [facility] [address] [place] [phone] 02/19/2025 11:15 AM EDT Office Visit [facility] [address] [place] [address] [phone] Name, MD Eddie [address] [place] [phone] Health Maintenance Due Date Last Done Comments [...] Alcohol/Substance Use Screening 02/04/2025 02/05/2024 Influenza Vaccine (#1) 2025 6, 03/23/2015, 03/27/2014, Additional history exists Diabetes: [...] current use of insulin ([facility]) POCT GLUCOSE Routine 10/29/2024 2:27 [...] Phosphate (As Phosphorus) (11/25/2024 2:08 PM EDT) Phosphorus 4.3 2.7 - 4.5 mg/dL [facility] 11/25/2024 2:08 PM EDT 11/25/2024 2:08 PM EDT us Generic External Data Provider LAB BLOOD ORDERAB LES Final Result [facility] [address] [place] [phone] * POCT ADRIAN-14 Urine Drug Screen (11/12/2024 10:14 AM EDT) Oxycodone Screen, Urine Positive Urine Urine specimen obtained by clean catch procedure / Unknown 11/12/2024 10:14 AM EDT Narrative Estrellita Crenshaw RN - 11/12/2024 10:14 AM EDT .UTOX cup Lot#[id number] Exp. 04/18/26 Internal Pass Control us Mckenzie RODRIGUEZ POINT OF CARE TEST ENTER/EDIT ORDERABLES Final Result * T-SPOT??.TB (11/05/2024 12:13 PM EDT) T Spot TB Negative Negative [facility] Comment:A negative test resu [...] as aquantitative test. TS PANEL A 2 [facility] TS PANEL B 3 [facility] Negative Control Passed [facility] Positive Control Passed [facility] Comment:For additional infor vimal, please refer tohttp://education.[employer]/faq/QDA670(This link is being provided for informational/educational purposes only.)THIS TEST WAS PERFORMED AT:[employer] [place] [address]FRJJUSIANKITA MADDOX MD,PHD 11/05/2024 12:1 3 PM EDT 11/05/2024 1:07 PM EDT us Eddie Marshall MD LAB BLOOD ORDERABLES Final Resul t [facility] [address] [place] [phone] * (ABNORMAL) Urinalysis, Complete, with Reflex to Culture (11/05/2024 11:16 AM EDT) Color Urine Yellow [facility] Appearance Urine Cloudy [facility] PH 6.5 5.0 - 9.0 [facility] Glucose Urine UA Negative Negative mg/dL [facility] Urine Blood Negative Negative [facility] Specific [employer] - Urine 1.015 1.005 - 1.025 [facility] Urine Protein Negative Neg-Trace mg/dL [facility] Urine Ketones Negative Negative mg/dL [facility] Nitrite Urine Negative Negative [facility] Leukocyte Esterase Urine Moderate (2+)(A) Negative [facility] RBC Urine 0-2 0 - 2 /HPF [facility] Urine WBC 21-50(A) 0 - 5 /HPF [facility] Urine Squamous Epithelial Cell 3-5 0 - 2 /HPF [facility] Urine Bacteria 4+ None Seen [facility] Hyaline Casts, Urine 0-2 0 - 2 /LPF [facility] 11/05/2024 11:1 6 AM EDT 11/05/2024 11:25 AM EDT [facility] - 11/05/2024 11:35 AM EDT Urine, Clean Catch us Generic External Data Provider LAB URINE ORDERAB LES Final Result Performing Organization Address City/State/[facility] Co de Phone Number [facility] [address] [place] [phone] * Culture, Urine, Routine (11/05/2024 12:00 AM EDT) Urine Urine specimen obtained by clean catch procedure / Unknown 11/05/2024 11/05/2024 Comment:UACC Hayley [facility] - 11/07/2024 7:44 AM EDT [...] ORDERABLES Final Result [facility] [address] [place] [phone] * POCT HGB A1C (10/29/2024 2:29 [...] 9:40 AM EDT) Triglycerides 199(H) <150 mg/dL [facility] Comment:Desirable Triglyceri de: less [...] 190 mg/dL HDL Cholesterol 48 >40 mg/dL [facility] Comment:Desirable HDL: great er than 40 mg/dL Note: This HDL assay may give artificially low results in patients with liver disease. Blood Venous blood specimen / Unknown 01/16/2024 9:40 AM EDT 01/16/2024 11:20 AM EDT us Eddie Marshall MD LAB BLOOD ORDERABLES Final Resul t Performing Organization Address [facility]/ZIP Co de Phone Number [facility] [address] [place] [phone] * Albumin, Random Urine W/Creatinine (01/16/2024 9:35 AM EDT) Creatinine, Urine 27.62 mg/dL [facility] Microalbumin Urine <5.0 mg/L [facility] Microalbum Creatinine Ratio Ur TNP <30 ug/mg cr [facility] Comment:Unable to calculate albumin/creatinine ratio due to lowmicroalbumin or creatinine result. Urine (Urine, Random) 01/16/2024 9:35 AM EDT 01/16/2024 11:12 AM EDT us Eddie Marshall MD LAB URINE ORDERABLES Final Resul t Performing Organization Address City/[facility]/ZIP Co de Phone Number [facility] [address] [place] [phone] * Hm Diabetes Eye Exam (05/16/2023) Eye Exam Normal Normal us Eddie Marshall MD HEALTH MAINTENANCE Final Result * (ABNORMAL) Hepatitis Panel, General (11/18/2022 2:07 PM EDT) Hepatitis A Antibody Total REACTIVE( A) NON-REACT NAHID [facility] [place] [facility] Comment: For additional information, please refer to [email or web address].[employer]/faq/CPR040 (This link is being provided for informational/ educational purposes only.) Hepatitis B Surface Antibody QL NON-REACT NAHID NON-REACT NAHID [facility] [place] [employer] Hepatitis B Surface Ag NON-REACT NAHID NON-REACT NAHID [facility] [place] [employer] Hepatitis B Core Antibody Total NON-REACT NAHID NON-REACT NAHID [facility] Hepatitis C Antibody NON-REACT NAHID NON-REACT NAHID [facility] [place] [employer] Index 0.07 <1.00 [facility] [place] [employer] Comment: HCV antibody was non-reactive. There is no laboratory evidence of HCV infection. In most cases, no further action is required. However, if recent HCV exposure is suspected, a test for HCV RNA (test code 51577) is suggested. For additional information please refer to http://KRAFTWERK.[employer]/faq/APO08d9 (This link is being provided for informational/ educational purposes only.) 11/18/2022 2:07 PM EDT 11/18/2022 2:09 PM EDT Narrative [facility] - 11/19/2022 6:51 AM EDT COLLECTION KIT GIVEN TO PATIENT. PATIENT ADVISED TO RETURN. Mckenzie Pillai [facility] LAB BLOOD ORDERABLES Final Res ult [facility] [address], [place] [address] [facility] [place] [employer] [facility] [address] [place] [address] from Last 3 Months or Most Recently Relevant to Health Maintenance Insurance WILBUR MÁRQUEZ [facility] [employer] [id number] Care Teams Behavioral Health Case Manager Relationship Specialty Start Date End Date Name, MD Eddie [address] [place] [phone] PCP - General Family Medicine 09/16/15 Jerica [facility] 07/01/24
== END 2025-01-09 12:33 | disposition home or self-care (01) ==
LOC: HO.CT 12:32
PROVIDERS: PCP Internal Medicine Geriatric Medicine; Visit Provider Nurse Practitioner Family
DX: R91.8 Other nonspecific abnormal finding of lung field (principal)
CPT/HCPCS: 71250

== ENCOUNTER → 2025-01-09 12:34 | Outpatient (BNV) | payer MEDICARE, SELFPAY | PROVIDERS: PCP Internal Medicine Geriatric Medicine; Visit Provider Radiology Diagnostic Radiology | DX: R91.8 Other nonspecific abnormal finding of lung field (principal) | CPT/HCPCS: 71250 ==

== ENCOUNTER 2025-01-27 10:03 | Outpatient (REF) | payer MEDICARE, SELFPAY ==
--- OUTSIDE RECORDS SUMMARY | 2025-01-27 10:44 | XMS_ITS | Clinical Summary ---
Author Organization [employer] Address [address] [place] [address] [address] [place] [address] Care Team Providers Care Clothes Separator Name Role Phone Name, Eddie GILMORE Primary Care Provider [phone] Allergies Active Allergy Reactions Criticality Noted Date [...] 06/01/20 22 Active Blood Glucose Monitoring Suppl (Boingo Wireless Verio Flex System) w/Device kit USE DIRECTED [...] 12/12/19 25 Active Lancets (OneTouch Delica Plus [id number]) miscIndication s:Controlled type 2 diabetes mellitus with complication, without long-term current use of insulin ([facility]) USE TO CHECK BLOOD SUGAR TWICE A DAY 100 each 5 12/12/19 25 Active famotidine (Pepcid) 40 MG tablet TAKE 1 TABLET BY MOUTH EVERY DAY 90 tablet 2 12/12/19 25 Active glucose blood (OneTouch Verio) test stripIndicatio ns:Controlled type 2 diabetes mellitus with complication, without long-term current use of insulin ([facility]) USE TO CHECK BLOOD SUGAR [...] day. 2.5 mL 3 12/17/19 25 Active atorvastatin (Lipitor) 40 MG tablet TAKE 1 TABLET BY MOUTH EVERY MORNING 30 tablet 5 01/04/20 25 Active traZODone (Desyrel) 50 MG tablet TAKE 1 TABLET BY MOUTH AT BEDTIME 30 tablet 01/04/20 25 Active oxyCODONE-acet aminophen (Percocet) 5-325 MG tabletIndicati ons:Chronic pain syndrome Take 1 tablet by mouth every 8 (eight) hours if needed for severe pain for up to 28 days. Do not start before January 28, 2025. 84 tablet 01/29/20 25 025 Active atorvastatin (Lipitor) 40 MG [...] 31, 2024. 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 She understands this is the [...] organization. Date Type Department Care Team Description 01/27/2025 [facility] [address] [facility] [place] [address] Eddie Marshall MD Chronic pain syndrome 01/09/2025 Orders Only [facility] External Provider, [facility] 01/03/2025 Refill C [facility] [address] [place] [address] Eddie Marshall MD 12/30/2024 Telephone [facility] MEDICINE [address] [place] [address] 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 RN Recommend [facility] Tele Tier 2 12/30/2024 Refill [facility] [address] [place] [address] Eddie Marshall MD Chronic pain syndrome 12/16/2024 Telephone C MEDICINE [address] [place] [address] Eddie Marshall MD Medication Question 12/16/2024 Refill C MEDICINE [address] [place] [address] Eddie Marshall MD Hypothyroidism, unspecified type 12/11/2024 Telephone C MEDICINE [address] [place] [address] Eddie Marshall MD Medication Question 12/11/2024 Telephone C MEDICINE [address] [place] [address] Eddie Marshall MD Med Refill 12/11/2024 Refill [facility] [address] [place] [address] Eddie Marshall MD Controlled type 2 diabetes mellitus with complication, without long-term current use of insulin ([facility]) 12/02/2024 Refill [facility] [address] [place] [address] Eddie Marshall MD Hypothyroidism, unspecified type 12/02/2024 Refill [facility] [address] [place] [address] Eddie Marshall MD Chronic pain syndrome 11/27/2024 Refill [facility] [address] [place] [address] Eddie Marshall MD 11/25/2024 Orders Only GENERIC EXTERNAL DATA DEPARTMENT Provider, Generic External Data 11/12/2024 9:45 AM EDT Office Visit [address] [address] Mckenzie Trent, WORKFORCE PLANNING ANALYST Chronic pain syndrome (Primary Dx); 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 11/12/2024 Travel 11/06/2024 Results Follow-Up [address] [address] Eddie Marshall MD Urinalysis, Complete, with Reflex to Culture, Culture, Urine, Routine 11/05/2024 Orders Only GENERIC EXTERNAL DATA DEPARTMENT Provider, Generic External Data 11/04/[address] [address] Eddie Marshall MD Call Back Request 11/04/[address] [address] Eddie Marshall MD Chronic pain syndrome 11/01/[address] [address] Eddie Marshall MD Med Refill 10/29/2024 2:30 PM EDT Office Visit [address] [address] Eddie Marshall MD Iron deficiency anemia due to chronic blood loss (Primary Dx); Chronic insomnia; Controlled type 2 diabetes mellitus with complication, without long-term current use of insulin ([facility]); Chronic obstructive pulmonary disease, unspecified COPD type ([facility]); Pulmonary nodules; Former smoker 10/29/2024 Travel 10/28/[address] [address] Eddie Marshall MD CHART PREP 10/27/[address] [address] Eddie Marshall MD from Last 3 Months Immunizations Immunization Administration Dates Next Due Influenza injectable quadriv alent IIV4 with preservative 04/07/2016 Influenza, IIV3, injectable 03/23/2015,1 ,03/08/2013,04/06,05/01/2008,04/19/2007,05/10/2006 ,03/15/2005 Novel [id number], preservative-free 05/22/2009 Pneumococcal Polysaccharide PPSV23 07/11/2013, TD [...] Description 02/11/2025 9:45 AM EDT Office Visit [facility] MEDICINE [address] [place] [address] 02/19/2025 11:15 AM EDT Office Visit [facility] MEDICINE [address] [place] [phone] Name, MD Eddie [address] [place] [address] Health Maintenance Due Date Last Done Comments [...] Diagnosis Comments CT CHEST WO CONTRAST Routine 01/09/2025 1:24 PM EDT PHOSPHATE ( PHOSPHORUS) Routine 11/25/2024 2:08 PM [...] use of insulin (CMS/HCC) POCT GLUCOSE Routine 10/29/2024 2:27 PM EDT [...] Maintenance Results * CT Chest w/o Contrast (01/09/2025 1:24 PM EDT) Anatomical Region Laterality Modality Body, Chest Computed Tomogra phy 01/09/2025 1:24 PM EDT Narrative 01/09/2025 2:14 PM EDT [address] [address] [address] Scan Report Signed Patient: Celeste Abad MR#: [id number] 4 : 1945 Acct:[id number] Age/Sex: 79 / F ADM Date: 01/09/25 Loc: HO.CT Attending Dr: Maria Esther Blum NP Ordering Physician: Maria Esther Blmu NP Date of Service: 01/09/25 Procedure(s): CT chest wo IV con Accession Number(s): [id number] cc: Name,Eddie GILMORE; Maria Esther Blum NP Report Number: [id number]: Total DLP = 219.00 mGy-cm EXAMINATION: CT CHEST WITHOUT CONTRAST CLINICAL INFORMATION: R91.8 - Other nonspecific abnormal finding of lung field COMPARISON: CT from August 26, 2024 x-ray from September 20, 2024 DLP: 219 mGY*cm TECHNIQUE: Multidetector volumetric CT imaging of the chest was done. Axial MIP volume rendering provided. Sagittal and coronal reformatted images were obtained. This CT examination was performed using dose optimization techniques as appropriate, variously including the following: *Automated exposure control *Adjustment of mA and/or kV according to patient size (this includes techniques or standardized protocols for targeted exams where dose is matched to indication/reason for exam; i.e. extremities or head) *Use of iterative reconstruction technique FINDINGS: LUNGS: Again seen are moderate changes of centrilobular and paraseptal emphysema. Measurements performed on axial series CT #10 Image 65: Posterior segment right upper lobe 8 mm solid pulmonary nodule on the prior examination now demonstrates vague groundglass density. Image 75: Anterior segment right upper lobe subpleural pulmonary nodule is seen measuring 5 mm diameter now demonstrates faint groundglass density. Image 91: Right middle lobe groundglass nodular density measuring 4 x 7 mm it is slightly denser than on the prior study. There is increased groundglass density in the thickened portion of the right lower lobe lung base. Again seen is linear density across the left lower lobe with pleural retraction consistent with scarring. In the far posterior aspect of the left lower lobe, there is airspace and groundglass density that is new since the prior. MEDIASTINUM: Anterior to the right side of janet, there is a lymph node that measured 10 mm short axis, unchanged. There is no adenopathy. Large hiatal hernia is again noted. Moderate atherosclerotic calcifications are evident in the aorta. CORONARY ARTERY CALCIFICATION: Present PLEURA: There is no pleural effusion. AXILLA: No lymphadenopathy. UPPER ABDOMEN: There are clips from cholecystectomy. OSSEOUS STRUCTURES: Multilevel degenerative disc disease with disc space vacuum phenomenon is present. CT/CT chest wo IV con IMPRESSION: Solid pulmonary nodules in the right upper lobe demonstrates decreasing density and now show groundglass density may been related to inflammatory or infectious etiologies. 5 x 7 mm Groundglass density in the right middle lobe is similar in size the prior, but shows slight increased density. Per Fleischner Society recommendation: Follow-up in 6-[address] and then reassess follow-up plain. Stable 1 cm right lower paratracheal/precarinal lymph node. Recommend continued surveillance with follow-up CT in 6-12 months. Increasing opacity in the posterior aspect of the left lower lobe could represent atelectasis or pneumonia. Large hiatal hernia involving the stomach fundus and body. Stable moderate changes of emphysema, most advanced in the right apex. Electronically signed by: Fab Alicia MD 01/09/2025 02:11 PM EDT RP Dictated By: Fab Alicia MD Signed By: <Electronically signed by Fab Alicia MD in OV> 01/09/25 1411 DD/ 1324 TD/TT: 01/09/25 1338 Net Solutions Architect: Procedure Note Donotuseinterpreter, Image - 01/09/[address] [place] [address] [address] Scan Report Signed Patient: Celeste Abad#: [id number] 4 : 1945cct:[id number] Age/Sex: 79 / FADM Date: 01/09/25 Loc: HO.CT Attending Dr: Maria Esther Blum NP Ordering Physician: Maria Esther Blum NP Date of Service: 01/09/25 Procedure(s): CT chest wo IV con Accession Number(s): [id number] cc: Name,Eddie GILMORE; Maria Esther Blum NP Report Number: [id number]: Total DLP = 219.00 mGy-cm EXAMINATION: CT CHEST WITHOUT CONTRAST CLINICAL INFORMATION: R91.8 - Other nonspecific abnormal finding of lung field COMPARISON: CT from August 26, 2024 x-ray from September 20, 2024 DLP: 219 mGY*cm TECHNIQUE: Multidetector volumetric CT imaging of the chest was done. Axial MIP volume rendering provided. Sagittal and coronal reformatted images were obtained. This CT examination was performed using dose optimization techniques as appropriate, variously including the following: *Automated exposure control *Adjustment of mA and/or kV according to patient size (this includes techniques or standardized protocols for targeted exams where dose is matched to indication/reason for exam; i.e. extremities or head) *Use of iterative reconstruction technique FINDINGS: LUNGS: Again seen are moderate changes of centrilobular and paraseptal emphysema. Measurements performed on axial series CT #10 Image 65: Posterior segment right upper lobe 8 mm solid pulmonary nodule on the prior examination now demonstrates vague groundglass density. Image 75: Anterior segment right upper lobe subpleural pulmonary nodule is seen measuring 5 mm diameter now demonstrates faint groundglass density. Image 91: Right middle lobe groundglass nodular density measuring 4 x 7 mm it is slightly denser than on the prior study. There is increased groundglass density in the thickened portion of the right lower lobe lung base. Again seen is linear density across the left lower lobe with pleural retraction consistent with scarring. In the far posterior aspect of the left lower lobe, there is airspace and groundglass density that is new since the prior. MEDIASTINUM: Anterior to the right side of janet, there is a lymph node that measured 10 mm short axis, unchanged. There is no adenopathy. Large hiatal hernia is again noted. Moderate atherosclerotic calcifications are evident in the aorta. CORONARY ARTERY CALCIFICATION: Present PLEURA: There is no pleural effusion. AXILLA: No lymphadenopathy. UPPER ABDOMEN: There are clips from cholecystectomy. OSSEOUS STRUCTURES: Multilevel degenerative disc disease with disc space vacuum phenomenon is present. CT/CT chest wo IV con IMPRESSION: Solid pulmonary nodules in the right upper lobe demonstrates decreasing density and now show groundglass density may been related to inflammatory or infectious etiologies. 5 x 7 mm Groundglass density in the right middle lobe is similar in size the prior, but shows slight increased density. Per Fleischner Society recommendation: Follow-up in 6-[address] and then reassess follow-up plain. Stable 1 cm right lower paratracheal/precarinal lymph node. Recommend continued surveillance with follow-up CT in 6-12 months. Increasing opacity in the posterior aspect of the left lower lobe could represent atelectasis or pneumonia. Large hiatal hernia involving the stomach fundus and body. Stable moderate changes of emphysema, most advanced in the right apex. Electronically signed by: Fab Alicia MD 01/09/2025 02:11 PM EDT RP Dictated By: Fab Alicia MD Signed By: <Electronically signed by Fab Alicia MD in OV> 01/09/25 1411 DD/ 1324 TD/TT: 01/09/25 1338 Net Solutions Architect: [facility] External Provider IMG CT PROCEDURES Edited Result - Final * Phosphate (As Phosphorus) (11/25/2024 2:08 PM EDT) Phosphorus 4.3 2.7 - 4.5 mg/dL [facility] 11/25/2024 2:08 PM EDT 11/25/2024 2:08 PM EDT Generic External Data Provider LAB BLOOD ORDERAB LES Final Result [facility] [address] [place] [phone] * POCT ADRIAN-14 Urine Drug Screen (11/12/2024 10:14 AM EDT) Oxycodone Screen, Urine Positive Urine Urine specimen obtained by clean catch procedure / Unknown 11/12/2024 10:14 AM EDT Narrative Estrellita Crenshaw RN - 11/12/2024 10:14 AM EDT .UTOX cup Lot#[id number] Exp. 04/18/26 Internal Pass Control Mckenzie Trent WORKFORCE PLANNING ANALYST POINT OF CARE TEST ENTER/EDIT ORDERABLES Final Result * T-SPOT??.TB (11/05/2024 12:13 PM EDT) T Spot TB Negative Negative [facility] Comment:A negative test resu lt [...] as aquantitative test. TS PANEL A 2 [facility] TS PANEL B 3 [facility] Negative Control Passed [facility] Positive Control Passed [facility] Comment:For additional infor vimal, please refer tohttp://education.PageLever/faq/ORE607(This link is being provided for informational/educational purposes only.)THIS TEST WAS PERFORMED AT:[id number] [place] [address]SDNEQFFANKITA MADDOX MD,PHD 11/05/2024 12:1 3 PM EDT 11/05/2024 1:07 PM EDT us Eddie Marshall MD LAB BLOOD ORDERABLES Final Resul t [facility] [address] [place] [phone] * (ABNORMAL) Urinalysis, Complete, with Reflex to Culture (11/05/2024 11:16 AM EDT) Color Urine Yellow [facility] Appearance Urine Cloudy [facility] PH 6.5 5.0 - 9.0 [facility] Glucose Urine UA Negative Negative mg/dL [facility] Urine Blood Negative Negative [facility] Specific Imperial - Urine 1.015 1.005 - 1.025 [facility] Urine Protein Negative Neg-Trace mg/dL [facility] Urine Ketones Negative Negative mg/dL [facility] Nitrite Urine Negative Negative [facility] Leukocyte Esterase Urine Moderate (2+)(A) Negative [facility] RBC Urine 0-2 0 - 2 /HPF [facility] Urine WBC 21-50(A) 0 - 5 /HPF [facility] Urine Squamous Epithelial Cell 3-5 0 - 2 /HPF [facility] Urine Bacteria 4+ None Seen [facility] Hyaline Casts, Urine 0-2 0 - 2 /LPF [facility] 11/05/2024 11:1 6 AM EDT 11/05/2024 11:25 AM EDT Narrative [facility] - 11/05/2024 11:35 AM EDT Urine, Clean Catch us Generic External Data Provider LAB URINE ORDERAB LES Final Result [facility] [address] [place] [phone] * Culture, Urine, Routine (11/05/2024 12:00 AM EDT) Urine Urine specimen obtained by clean catch procedure / Unknown 11/05/2024 11/05/2024 Comment:UACC Narrative [facility] - 11/07/2024 7:44 AM EDT Escherichia coli Quant > 100,000 cfu/mL Escherichia coli: Ampicillin 8(S) Escherichia coli: Cefazolin (Urine) 4(S) Escherichia coli: Cefepime <=0.12(S) Escherichia coli: Ceftriaxone <=0.25(S) Escherichia coli: Ciprofloxacin <=0.06(S) Escherichia coli: Gentamicin <=1(S) Escherichia coli: Nitrofurantoin <=16(S) Escherichia coli: Trimethoprim/Sulfamethoxazole <=20(S) Specimen Source: Urine clean catch Generic External Data Provider LAB MICROBIOLOGY - GENERAL ORDERABLES Final Result [facility] [address] [place] [phone] * POCT HGB A1C (10/29/2024 2:29 [...] 9:40 AM EDT) Triglycerides 199(H) <150 mg/dL [facility] Comment:Desirable Triglyceri de: less than 150 mg/dLBorderline High Triglyceride 150-199 mg/dLHigh Triglyceride: 200-499 mg/dLVery High Triglyceride: greater than or equal to 5OO mg/dL Cholesterol 150 <200 mg/dL [facility] Comment:Desirable Cholestero l: less than 200 mg/dLBorderline High Cholesterol: 200-239 mg/dLHigh Cholesterol: greater than 239 mg/dL LDL Cholesterol Calculated 63 <100 mg/dL [facility] Comment:Desirable LDL: less than 100 mg/dLNear Optimal/Above Optimal LDL: 110- 129 mg/dLBorderline High LDL: 130-159 mg/dLHigh LDL: 160-189 mg/dLVery High LDL: greater than or equal to 190 mg/dL HDL Cholesterol 48 >40 mg/dL [facility] Comment:Desirable HDL: great er than 40 mg/dL Note: This HDL assay may give artificially low results in patients with liver disease. Blood Venous blood specimen / Unknown 01/16/2024 9:40 AM EDT 01/16/2024 11:20 AM EDT us Eddie Marshall MD LAB BLOOD ORDERABLES Final Resul t Performing Organization Address [facility] Co de Phone Number [facility] [address] [place] [phone] * Albumin, Random Urine W/Creatinine (01/16/2024 9:35 AM EDT) Creatinine, Urine 27.62 mg/dL [facility] Microalbumin Urine <5.0 mg/L [facility] Microalbum Creatinine Ratio Ur TNP <30 ug/mg cr [facility] Comment:Unable to calculate albumin/creatinine ratio due to lowmicroalbumin or creatinine result. Urine (Urine, Random) 01/16/2024 9:35 AM EDT 01/16/2024 11:12 AM EDT us Eddie Marshall MD LAB URINE ORDERABLES Final Resul t Performing Organization Address [facility] Co de Phone Number [facility] [address] [place] [phone] * Hm Diabetes Eye Exam (05/16/2023) Eye Exam Normal Normal us Eddie Marshall MD HEALTH MAINTENANCE Final Result * (ABNORMAL) Hepatitis Panel, General (11/18/2022 2:07 PM EDT) Hepatitis A Antibody Total REACTIVE( A) NON-REACT NAHID [facility] [place] [facility] Comment: For additional information, please refer to http://[employer].PageLever/faq/BRG053 (This link is being provided for informational/ educational purposes only.) Hepatitis B Surface Antibody QL NON-REACT NAHID NON-REACT NAHID [facility] Hepatitis B Surface Ag NON-REACT NAHID NON-REACT NAHID [facility] Hepatitis B Core Antibody Total NON-REACT NAHID NON-REACT NAHID [facility] C Antibody NON-REACT NAHID NON-REACT NAHID [facility] [place] [facility] Index 0.07 <1.00 [facility] [place] [facility] Comment: HCV antibody was non-reactive. There is no laboratory evidence of HCV infection. In most cases, no further action is required. However, if recent HCV exposure is suspected, a test for HCV RNA (test code 67118) is suggested. For additional information please refer to http://[employer].PageLever/faq/MFF80h1 (This link is being provided for informational/ educational purposes only.) 11/18/2022 2:07 PM EDT 11/18/2022 2:09 PM EDT Narrative [facility] - 11/19/2022 6:51 AM EDT COLLECTION KIT GIVEN TO PATIENT. PATIENT ADVISED TO RETURN. Mckenzie Pillai [facility] BLOOD ORDERABLES Final Res ult [facility] [address], [place] [address] [place] [facility] [address] [place] [address] from Last 3 Months or Most Recently Relevant to Health Maintenance Insurance [employer] Care Teams Clothes Separator Relationship Specialty Start Date End Date Name, MD Eddie [address] [place] [phone] PCP - General Family Medicine 09/16/15 [facility] 07/01/24
[2025-01-27 14:21] LABS: Total Volume 24 Hour Urine 1175 mL
[2025-01-27 14:25] LABS: Creatinine, mg/dL 53.89
[2025-01-27 14:26] LABS: Creatinine, mg/dL 54.30; Sodium, 24 Hr Urine 53.0 mmol/L
[2025-01-27 14:54] LABS: Total Volume 24 Hour Urine 1175 mL
[2025-01-31 16:53] LABS: Calcium/Creatinine Ratio 673 mg/g creat (30-275); Creatinine 24Hr Urine 0.65 g/24 h (0.50-2.15)
== END 2025-01-27 10:04 | disposition home or self-care (01) ==
LOC: HO.LAB 10:03
PROVIDERS: PCP Internal Medicine Geriatric Medicine; Visit Provider Internal Medicine Endocrinology, Diabetes & Metabolism
DX: R82.994 Hypercalciuria (principal)
CPT/HCPCS: 36415; 82306; 82340; 82570; 84300

== ENCOUNTER 2025-01-31 10:19 | Outpatient (AMB) | payer MEDICARE, SELFPAY ==
--- OUTSIDE RECORDS SUMMARY | 2025-01-31 10:28 | XMS_ITS | Clinical Summary ---
Author Organization [employer] Address [address] [place] [address] 7[address] [place] [address] Care Team Providers Care Enrollment Nurse Name Role Phone Name, Eddie GILMORE [...] 06/01/20 22 Active Blood Glucose Monitoring Suppl ([employer] Verio Flex System) w/Device kit USE [...] 12/12/19 25 Active Lancets (OneTouch Delica Plus [id number]) miscIndication s:Controlled type 2 diabetes mellitus with complication, without long-term current use of insulin ([facility]) USE TO CHECK BLOOD SUGAR TWICE A DAY 100 each 5 12/12/19 25 Active famotidine (Pepcid) 40 MG tablet TAKE 1 TABLET BY MOUTH EVERY DAY 90 tablet 2 12/12/19 25 Active glucose blood (OneTouch Verio) test stripIndicatio ns:Controlled type 2 diabetes mellitus with complication, without long-term current use of insulin ([facility]) USE TO CHECK BLOOD SUGAR TWICE A DAY 50 strip 5 12/12/19 25 Active levothyroxine (Synthroid, Levoxyl) 112 MCG tabletIndicati ons:Hypothyroi dism, unspecified type TAKE 1 TABLET BY MOUTH EVERY DAY 30 tablet 3 12/17/19 25 Active Polyethyl [...] MORNING 30 tablet 5 01/04/20 25 Active oxyCODONE-acet aminophen (Percocet) 5-325 MG tabletIndicati ons:Chronic pain syndrome Take 1 tablet by mouth every 8 (eight) hours if needed for severe pain for up to 28 days. Do not start before January 28, 2025. 84 tablet 01/29/20 25 025 Active melatonin 5 MG tablet Take 2 tablets (10 mg) by mouth Once per day. At bedtime 30 tablet 3 02/01/20 25 Active traZODone (Desyrel) 50 MG tablet TAKE 1 TABLET BY MOUTH AT BEDTIME 30 tablet 02/01/20 25 Active atorvastatin (Lipitor) 40 MG tablet TAKE 1 TABLET BY MOUTH EVERY MORNING 30 tablet 5 07/17/19 25 025 Discontinued(R eorder (will not trigger notification to Pharmacy)) melatonin 5 MG tablet Take 2 tablets (10 mg) by mouth Once per day. At bedtime 30 tablet 3 12/17/19 25 025 Discontinued(R eorder (will not [...] before December 31, 2024. 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 She understands this is the [...] organization. Date Type Department Care Team Description 01/31/2025 Refill [facility] [address] [place] [address] Eddie Marshall MD 01/27/2025 Orders Only GENERIC EXTERNAL DATA DEPARTMENT Provider, Generic External Data 01/27/2025 Refill [facility] [address] [facility] [place] [address] Eddie Marshall MD Chronic pain syndrome 01/09/2025 Orders Only [facility] External Provider, [facility] 01/03/2025 Refill [facility] [address] [place] [address] Eddie Marshall MD 12/30/2024 Telephone [facility] [address] [place] [address] 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, JULY Recommend ALPINE PATROLLER Tele Tier 2 12/30/2024 Refill [facility] [address] [place] [address] Eddie Marshall MD Chronic pain syndrome 12/16/2024 Telephone [facility] [address] [place] [address] Eddie Marshall MD Medication Question 12/16/2024 Refill [facility] [address] [place] [address] Eddie Marshall MD Hypothyroidism, unspecified type 12/11/2024 Telephone [facility] [address] [place] [address] Eddie Marshall MD Medication Question 12/11/2024 Telephone [facility] [address] [place] [address] Eddie Marshall MD Med Refill 12/11/2024 Refill [facility] [address] [place] [address] Eddie Marshall MD Controlled type 2 diabetes mellitus with complication, without long-term current use of insulin ([facility]) 12/02/2024 Refill [facility] [address] [place] [address] Eddie Marshall MD Hypothyroidism, unspecified type 12/02/2024 Refill [facility] [address] [facility] [place] [address] Eddie Marshall MD Chronic pain syndrome 11/27/2024 Refill [facility] [place] [address] Eddie Marshall MD 11/25/2024 Orders Only GENERIC EXTERNAL DATA DEPARTMENT Provider, 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 External Data 11/04/2024 Telephone [facility] [address] [place] [address] Eddie Marshall MD Call Back Request 11/04/2024 Refill [facility] [address] [place] [address] Eddie Marshall MD Chronic pain syndrome 11/01/[address] [address] Eddie Marshall MD Med Refill from Last 3 Months Immunizations Immunization Administration Dates Next Due Influenza injectable quadriv alent IIV4 with preservative 04/07/2016 Influenza, IIV3, injectable 03/23/2015,1 ,03/08/2013,04/06,05/01/2008,04/19/2007,05/10/2006 ,03/15/2005 Novel [id number], preservative-free 05/22/2009 Pneumococcal Polysaccharide PPSV23 07/11/2013, TD [...] Description 02/11/2025 9:45 AM EDT Office Visit [facility] [address] [place] [address] [phone] 02/19/2025 11:15 AM EDT Office Visit [facility] [address] [place] [address] [phone] Name, MD Eddie [address] [place] [phone] Health Maintenance Due Date Last Done Comments [...] Procedure Name Priority Date/Time Associated Diagnosis Comments VITAMIN D,25-OH,TOTAL,IA Routine 01/27/2025 10:25 AM EDT SODIUM, 24-HOUR URINE WITH CREATININE Routine 01/27/2025 7:30 AM EDT CREATININE, 24 HR GROUP Routine 01/27/2025 7:[address] CHEST WO CONTRAST Routine 01/09/2025 1:24 [...] Recently Relevant to Health Maintenance Results * Vitamin D, 25-Hydroxy, Total, Immunoassay (01/27/2025 10:25 AM EDT) [facility] Vitamin D 25-OH Total 73.8 >30 ng/mL [facility] Comment: Health Based Reference Values*< 20 ng/mL Qczxhvcpg05-05 ng/mL Insufficient> 30 ng/mL Sufficient*Judy REDDY. N Engl J Med. 2007;357:266-280There is no well-established upper level of normal vitamin Dlevels. Some laboratories use 50 ng/mL as an upper limit ofnormal. However, toxicity is patient-dependent and may occurat any level. Careful correlation with the patient'spresentation is necessary and, if there is concern forvitamin D toxicity, treatment should be consideredirrespective of the serum level.Care must be taken in interpreting Vitamin D [...] confirmed with another method such as LC-MS/MS. 01/27/2025 10:2 5 AM EDT 01/27/2025 10:25 AM EDT Generic External Data Provider LAB BLOOD ORDERAB LES Final Result Performing Organization Address [facility]/ZIP Co de Phone Number [facility] [address] [place] [phone] * (ABNORMAL) Sodium, 24-Hour Urine with Creatinine (01/27/2025 7:30 AM EDT) Sodium, 24 Hour Urine 62.3 40 - 220 mmol/Day [facility] Creatinine, 24 Hour Urine 0.6(L) 1.0 - 2.0 G/Day [facility] Creatinine, Urine 54.30 [facility] Urine Total Volume 24 Hour 1,175 mL [facility] 01/27/2025 7:30 AM EDT 01/27/2025 12:46 PM EDT Generic External Data Provider LAB URINE ORDERAB LES Final Result Performing Organization Address City/[facility]/ZIP Co de Phone Number [facility] [address] [place] [phone] * (ABNORMAL) CREATININE, 24 HR GROUP (01/27/2025 7:30 AM EDT) Creatinine, 24 Hour Urine 0.6(L) 1.0 - 2.0 G/Day [facility] Creatinine, Urine 53.89 [facility] Urine Total Volume 24 Hour 1,175 mL [facility] 01/27/2025 7:30 AM EDT 01/27/2025 12:41 PM EDT Narrative [facility] - 01/27/2025 2:25 PM EDT [id number] us Generic External Data Provider LAB URINE ORDERAB LES Final Result Performing Organization Address City/State/[facility] Co de Phone Number [facility] [address] [place] [phone] * CT Chest w/o Contrast (01/09/2025 1:24 PM EDT) Anatomical Region Laterality Modality Body, Chest Computed Tomogra phy 01/09/2025 1:24 PM EDT Narrative 01/09/2025 2:14 PM EDT [address] [address] [address] Scan Report Signed Patient: Celeste Abad MR#: [id number] 4 : 1945 Acct:[id number] Age/Sex: 79 / F ADM Date: 01/09/25 Loc: HO.CT Attending Dr: Maria Esther Blum NP Ordering Physician: Maria Esther Blum NP Date of Service: 01/09/25 Procedure(s): CT chest wo IV con Accession Number(s): [id number] cc: NameEddie MD; Maria Esther Blum NP Report Number: [id number]: Total DLP = 219.00 mGy-cm EXAMINATION: CT [...] 01/09/25 1411 DD/ 1324 TD/TT: 01/09/25 1338 Field Instructor: Procedure Note Donjacobjenniferter, Image - 01/09/[address] [address] [address] Scan Report Signed Patient: Celeste AbadMR#: [id number] 4 : 1945cct:[id number] Age/Sex: 79 / FADM Date: 01/09/25 Loc: HO.CT Attending Dr: Maria Esther Blum NP Ordering Physician: Maria Esther Blum NP Date of Service: 01/09/25 Procedure(s): CT chest wo IV con Accession Number(s): [id number] cc: Name,Eddie GILMORE; Maria Esther Blum NP Report Number: [id number]: Total DLP = 219.00 mGy-cm EXAMINATION: CT [...] Fab Alicia MD 01/09/2025 02:11 PM EDT Dictated By: Fab Alicia MD Signed By: <Electronically signed by Fab Alicia MD in OV> 01/09/25 1411 DD/ 1324 TD/TT: 01/09/25 1338 Field Instructor: us [facility] External Provider IMG CT PROCEDURES Edited Result - Final * Phosphate (As Phosphorus) (11/25/2024 2:08 PM EDT) Phosphorus 4.3 2.7 - 4.5 mg/dL [facility] 11/25/2024 2:08 PM EDT 11/25/2024 2:08 PM EDT Generic External Data Provider LAB BLOOD ORDERAB LES Final Result [facility] [address] [place] [phone] [phone] * POCT ADRIAN-14 Urine Drug Screen (11/12/2024 10:14 AM EDT) Oxycodone Screen, Urine Positive Urine Urine specimen obtained by clean catch procedure / Unknown 11/12/2024 10:14 AM EDT Narrative Estrellita Crenshaw RN - 11/12/2024 10:14 AM EDT .UTOX cup Lot#[id number] Exp. 04/18/26 Internal Pass Control Mckenzie Trent PSYCH SOCIAL WORKER POINT OF CARE TEST ENTER/EDIT ORDERABLES Final Result * T-SPOT??.TB (11/05/2024 12:13 PM EDT) T Spot TB Negative Negative [facility] Comment:A negative test resu lt does [...] as aquantitative test. TS PANEL A 2 [facility] TS PANEL B 3 [facility] Negative Control Passed [facility] Positive Control Passed [facility] Comment:For additional infor vimal, please refer tohttp://education.Moment.Us/faq/FWG403(This link is being provided for informational/educational purposes only.)THIS TEST WAS PERFORMED AT:[employer] [id number] [place] [address]JARQAXKANKITA MADDOX MD,PHD 11/05/2024 12:1 3 PM EDT 11/05/2024 1:07 PM EDT us Eddie Name LAB BLOOD ORDERABLES Final Resul t [facility] [address] [place] [address] [phone] * (ABNORMAL) Urinalysis, Complete, with Reflex to Culture (11/05/2024 11:16 AM EDT) Color Urine Yellow [facility] Appearance Urine Cloudy [facility] PH 6.5 5.0 - 9.0 [facility] Glucose Urine UA Negative Negative mg/dL [facility] Urine Blood Negative Negative [facility] Specific [place] - Urine 1.015 1.005 - 1.025 [facility] Urine Protein Negative Neg-Trace mg/dL [facility] Urine Ketones Negative Negative mg/dL [facility] Nitrite Urine Negative Negative [facility] Leukocyte Esterase Urine Moderate (2+)(A) Negative [facility] RBC Urine 0-2 0 - 2 /HPF [facility] Urine WBC 21-50(A) 0 - 5 /HPF [facility] Urine Squamous Epithelial Cell 3-5 0 - 2 /HPF [facility] Urine Bacteria 4+ None Seen [facility] Hyaline Casts, Urine 0-2 0 - 2 /LPF [facility] 11/05/2024 11:1 6 AM EDT 11/05/2024 11:25 AM EDT [facility] - 11/05/2024 11:35 AM EDT Urine, Clean Catch Generic External Data Provider LAB URINE ORDERAB LES Final Result Performing Organization Address [facility] de Phone Number [facility] [address] [place] [phone] * Culture, Urine, Routine (11/05/2024 12:00 AM EDT) Urine Urine specimen obtained by clean catch procedure / Unknown 11/05/2024 11/05/2024 Comment:[facility] - 11/07/2024 7:44 AM EDT Escherichia [...] GENERAL ORDERABLES Final Result Performing Organization Address [facility] de Phone Number [facility] [address] [place] [phone] * POCT HGB A1C (10/29/2024 2:29 PM EDT) Hemoglobin A1C 5.4 4.0 - 6.0 % QC Media Lot # [id number] Lot# Expiration Date Blood 10/29/2024 2:29 PM EDT Eddie Marshall MD POINT OF CARE TEST ENTER/EDIT OR DERABLES Final Result * (ABNORMAL) Lipid Panel, Standard (01/16/2024 9:40 AM EDT) Triglycerides 199(H) <150 mg/dL [facility] Comment:Desirable Triglyceri de: less than 150 mg/dLBorderline High Triglyceride 150-199 mg/dLHigh Triglyceride: 200-499 mg/dLVery High Triglyceride: greater than or equal to 5OO mg/dL Cholesterol 150 <200 mg/dL [facility] Comment:Desirable Cholestero l: less than 200 mg/dLBorderline High Cholesterol: 200-239 mg/dLHigh Cholesterol: greater than 239 mg/dL LDL Cholesterol Calculated 63 <100 mg/dL [facility] Comment:Desirable LDL: less than 100 mg/dLNear Optimal/Above Optimal LDL: 110- 129 mg/dLBorderline High LDL: 130-159 mg/dLHigh LDL: 160-189 mg/dLVery High LDL: greater than or equal to 190 mg/dL HDL Cholesterol 48 >40 mg/dL [facility] Comment:Desirable HDL: great er than 40 mg/dL Note: This HDL assay may give artificially low results in patients with liver disease. Blood Venous blood specimen / Unknown 01/16/2024 9:40 AM EDT 01/16/2024 11:20 AM EDT us Eddie Marshall MD LAB BLOOD ORDERABLES Final Resul t [facility] [address] [place] [phone] * Albumin, Random Urine W/Creatinine (01/16/2024 9:35 AM EDT) Creatinine, Urine 27.62 mg/dL [facility] Microalbumin Urine <5.0 mg/L [facility] Microalbum Creatinine Ratio Ur TNP <30 ug/mg cr [facility] Comment:Unable to calculate albumin/creatinine ratio due to lowmicroalbumin or creatinine result. Urine (Urine, Random) 01/16/2024 9:35 AM EDT 01/16/2024 11:12 AM EDT us Eddie Marshall MD LAB URINE ORDERABLES Final Resul t [facility] [address] [place] [phone] * Hm Diabetes Eye Exam (05/16/2023) Eye Exam Normal Normal Result [facility] Eddie Marshall MD HEALTH MAINTENANCE Final Result * (ABNORMAL) Hepatitis Panel, General (11/18/2022 2:07 PM EDT) Hepatitis A Antibody Total REACTIVE( A) NON-REACT NAHID [employer] [place] [employer] Comment: For additional information, please refer to http://[employer].Moment.Us/faq/JJB778 (This link is being provided for informational/ educational purposes only.) Hepatitis B Surface Antibody QL NON-REACT NAHID NON-REACT NAHID [facility] Surface Ag NON-REACT NAHID NON-REACT NAHID [employer] [place] [employer] Hepatitis B Core Antibody Total NON-REACT NAHID NON-REACT NAHID [employer] [place] [employer] Hepatitis C Antibody NON-REACT NAHID NON-REACT NAHID [employer] [place] ENDOTRONIXt Index 0.07 <1.00 [employer] [place] [employer] Comment: HCV antibody was non-reactive. There is no laboratory evidence of HCV infection. In most cases, no further action is required. However, if recent HCV exposure is suspected, a test for HCV RNA (test code 80127) is suggested. For additional information please refer to http://[employer].Moment.Us/faq/JEM44s2 (This link is being provided for informational/ educational purposes only.) 11/18/2022 2:07 PM EDT 11/18/2022 2:09 PM EDT Narrative [facility] - 11/19/2022 6:51 AM EDT COLLECTION KIT GIVEN TO PATIENT. PATIENT ADVISED TO RETURN. us Mckenzie RODRIGUEZ LAB BLOOD ORDERABLES Final Res ult [facility] [address], [place] [address] [facility] [place] [facility] [address] [place] [phone] from Last 3 Months or Most Recently Relevant to Health Maintenance Insurance [place] [id number] Care Teams Enrollment Nurse Relationship Specialty Start Date End Date Name, MD Eddie [address] [place] [phone] PCP - General Family Medicine 09/16/15 [place] [facility] 07/01/24
[2025-01-31 10:40] VITALS: BP 106/52; PULSE 88; O2SAT 94; BMI 25.8
--- NOTE | 2025-01-31 10:40 | A.OFFVIS_ITS ---
Vital Signs 01/31/25 10:40 Height 5 ft 1 in Weight 136 lb 8 oz BMI 25.8 BP 106/52 L Blood Pressure Location Rt brachial Position Sitting Pulse 88 Pulse Source Pulse Oximeter Pulse Oximetry (%) 94 Oxygen Delivery Method Room Air Intake Visit Reasons: Dyspnea Allergies Latex, Natural Rubber Allergy (Intermediate, Verified 02/03/25 10:54) Rash scallops Allergy (Unknown, Verified 02/03/25 10:54) Unknown HPI HPI Dyspnea: Details: Celeste is a pleasant 79 year old female, former 40+ pack year smoker, quit 20 years ago with underlying HTN, stable angina, CAD, seizures, h/o CVA x 3 and h/o [place] x 3 s/p 3 stents. She is able to ambulate however uses a wheelchair for long distances and is accompanied by her son today. She was switched to Advair as she reported Breo worsened reflux. Since the last visit patient underwent CT and had a home visit from provider through insurance who noted inspiratory crackles on exam, combined with chest CT results patient was started on Doxycycline and prednisone. She reports significant improvements in overall cough and dyspnea. She also reports prior history of obstructive sleep apnea, unknown severity and continues to report significant daytime fatigue, proximal nocturnal dyspnea, non restorative sleep and loud snoring, interested in repeating sleep study. [facility] Medical History Paraesophageal hernia Osteoporosis Lower GI bleed Rectal bleed Anemia Stable angina Essential hypertension CVA (cerebral vascular accident) CAD (coronary artery disease) Surgical History Status post cardiac catheterization History of cardiac cath History of adenoidectomy Hx of tonsillectomy Hx of hernia repair History of section History of cholecystectomy History of appendectomy Family History Mother Cancer Father Heart attack Social History Household Members: Children Housing: House Do you presently have visiting nurse or other home services: Yes Unable to assess alcohol history related to: Unknown Alcohol intake: never Patient Tobacco Use Status: Former Tobacco user Years Smoked: 30 +/- e-Cigarette/Vaping Use: Never Used Second Hand Smoke Exposure: No Substance Use Type: Marijuana service: No Current occupational status: retired Current occupation: right hand dominant Review of Systems Const Denies chills, Denies excessive sweating, Denies fever(s), Denies headache(s) and Denies night sweats Eyes Denies dry eyes, Denies irritation and Denies itchy eyes ENT Reports Normal hearing present, Denies headache(s), Denies nasal discharge, Denies post nasal drip and Denies sore throat Card Denies chest pain, Denies chest pain at rest, Denies chest pain with activity, Denies claudication, Denies leg edema, Reports dyspnea on exertion and Denies orthopnea Resp Denies chest congestion, Denies excessive phlegm production, Denies pain on inspiration, Denies pain with cough, Reports dyspnea on exertion, Denies stridor and Denies wheezing Musc Denies myalgias Neuro Reports Normal hearing present and Denies headache(s) Endo Denies excessive sweating Miguel/Lymph Denies lymphadenopathy Aller/Immun Denies itchy eyes, Denies seasonal rhinorrhea and Denies wheezing Physical Exam Vital Signs: Last Vital Signs Pulse 88 01/31/25 10:40 BP 106/52 L 01/31/25 10:40 Pulse Ox 94 01/31/25 10:40 Oxygen Delivery Method Room Air 01/31/25 10:40 BMI result Body Mass Index 25.8 Const General: cooperative, healthy appearing, comfortable, no acute distress, well developed and alert Orientation/consciousness: patient oriented x3 Limitations: no limitations HEENT Head: Yes normal to inspection, Yes normocephalic and Yes atraumatic Ears: hearing grossly normal bilaterally and external ears normal Eyes General: appearance normal, both eyes and all related structures Eyelids: Yes eyelids normal Sclerae: sclerae normal EOM: EOMs intact bilaterally Neck Neck: Yes normal visual inspection and Yes no lymphadenopathy Lymphatic: no lymphadenopathy noted Chest Chest palpation & inspection: normal inspection of the chest Resp Effort & Inspection: normal respiratory effort, able to speak in complete sentences, no audible wheezes, no cough, no stridor, not tachypneic, no tripod positioning and no use of accessory muscles Auscultation: clear to auscultation bilaterally Cardio Jugular venous distension: no JVD Rate: regular rate Rhythm: regular rhythm Skin Other: warm, dry General skin exam: no rashes or lesions noted Neuro General: patient oriented x3 Cranial nerves: Yes Normal hearing present Cognition (Neuro): normal cognition Gait exam (Neuro): Normal gait present Extrem General: Yes normal to inspection, Yes capillary refill normal, Yes no clubbing, cyanosis or edema and Yes no pedal edema Psych Appearance: grossly normal and well kempt Speech and movement: Normal speech and movement present and Clear speech present Affect: normal affect Attitude: cooperative Thought process: Normal thought process present Thought content: Normal thought content present Insight: Good insight present (Psych) Judgement: Good judgement present (Psych) Results Reviewed Results Reviewed: [address] [address] [address] Scan Report Signed Patient: Celeste Abad MR#: [id number] : 1945 Acct:[id number] Age/Sex: 79 / F ADM Date: 01/09/25 Loc: HO.CT Attending Dr: Maria Esther Blum NP Ordering Physician: Maria Esther Blum NP Date of Service: 01/09/25 Procedure(s): CT chest wo IV con Accession Number(s): [id number] cc: Name,Eddie GILMORE; Maria Esther Blum NP~ Report Number: [id number]: Total DLP = 219.00 mGy-cm EXAMINATION: CT CHEST WITHOUT CONTRAST CLINICAL INFORMATION: R91.8 - Other nonspecific abnormal finding of lung field COMPARISON: CT from August 26, 2024 x-ray from September 20, 2024 DLP: 219 mGY*cm TECHNIQUE: Multidetector volumetric CT imaging of the chest was done. Axial MIP volume rendering provided. Sagittal and coronal reformatted images were obtained. This CT examination was performed using dose optimization techniques as appropriate, variously including the following: *Automated exposure control *Adjustment of mA and/or kV according to patient size (this includes techniques or standardized protocols for targeted exams where dose is matched to indication/reason for exam; i.e. extremities or head) *Use of iterative reconstruction technique FINDINGS: LUNGS: Again seen are moderate changes of centrilobular and paraseptal emphysema. Measurements performed on axial series CT #10 Image 65: Posterior segment right upper lobe 8 mm solid pulmonary nodule on the prior examination now demonstrates vague groundglass density. Image 75: Anterior segment right upper lobe subpleural pulmonary nodule is seen measuring 5 mm diameter now demonstrates faint groundglass density. Image 91: Right middle lobe groundglass nodular density measuring 4 x 7 mm it is slightly denser than on the prior study. There is increased groundglass density in the thickened portion of the right lower lobe lung base. Again seen is linear density across the left lower lobe with pleural retraction consistent with scarring. In the far posterior aspect of the left lower lobe, there is airspace and groundglass density that is new since the prior. MEDIASTINUM: Anterior to the right side of janet, there is a lymph node that measured 10 mm short axis, unchanged. There is no adenopathy. Large hiatal hernia is again noted. Moderate atherosclerotic calcifications are evident in the aorta. CORONARY ARTERY CALCIFICATION: Present PLEURA: There is no pleural effusion. AXILLA: No lymphadenopathy. UPPER ABDOMEN: There are clips from cholecystectomy. OSSEOUS STRUCTURES: Multilevel degenerative disc disease with disc space vacuum phenomenon is present. CT/CT chest wo IV con IMPRESSION: Solid pulmonary nodules in the right upper lobe demonstrates decreasing density and now show groundglass density may been related to inflammatory or infectious etiologies. 5 x 7 mm Groundglass density in the right middle lobe is similar in size the prior, but shows slight increased density. Per Fleischner Society recommendation: Follow-up in 6-[address] and then reassess follow-up plain. Stable 1 cm right lower paratracheal/precarinal lymph node. Recommend continued surveillance with follow-up CT in 6-12 months. Increasing opacity in the posterior aspect of the left lower lobe could represent atelectasis or pneumonia. Large hiatal hernia involving the stomach fundus and body. Stable moderate changes of emphysema, most advanced in the right apex. 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: Assessment & Plan Assessment & Plan (1) COPD (chronic obstructive pulmonary disease): Code(s): J44.9 - Chronic obstructive pulmonary disease, unspecified Category: Medical (2) Emphysema of lung: Code(s): J43.9 - Emphysema, unspecified Category: Medical (3) Personal history of tobacco use: Code(s): Z87.891 - Personal history of nicotine dependence Category: Social Hx (4) Multiple pulmonary nodules: Code(s): R91.8 - Other nonspecific abnormal finding of lung field Category: Medical (5) Daytime somnolence: Code(s): R40.0 - Somnolence Category: Medical Plan Reviewed chest CT which revealed solid pulmonary nodules in the right upper lobe demonstrates decreasing density and now show groundglass density may been related to inflammatory or infectious etiologies. 5 x 7 mm Groundglass density in the right middle lobe is similar in size the prior, but shows slight increased density. Recommendations for a follow-up in 6-[address], which will be ordered today. Encouraged patient to continue to use Breo and consider daily use of nebulized therapy. She is aware to call if any symptoms change. Patient with prior h/o DC and continues with symptoms suggestive of DC, will send for home sleep study. All questions were answered and patient is in agreement of plan. Will follow up in 6-8 weeks or sooner if needed. Orders: Orders RT home sleep study Today R40.0 - Somnolence CT chest wo IV con 5 Months R91.8 - Other nonspecific abnormal finding of lung field Coding Level of Care Code Est Pt Level 4 (28258) Diagnoses COPD (chronic obstructive pulmonary disease) J44.9 Emphysema of lung J43.9 Personal history of tobacco use Z87.891 Multiple pulmonary nodules R91.8 Daytime somnolence R40.0
== END 2025-01-31 11:13 | disposition home or self-care (01) ==
LOC: HO.HPSW 10:20
PROVIDERS: PCP Internal Medicine Geriatric Medicine; Visit Provider Nurse Practitioner Family
DX: J44.9 Chronic obstructive pulmonary disease, unspecified (principal); J43.9 Emphysema, unspecified; Z87.891 Personal history of nicotine dependence; R91.8 Other nonspecific abnormal finding of lung field; R40.0 Somnolence
CPT/HCPCS: 99214

== ENCOUNTER → 2025-01-31 10:19 | Outpatient (BNVA) | payer MEDICARE, SELFPAY | PROVIDERS: PCP Internal Medicine Geriatric Medicine; Visit Provider Nurse Practitioner Family | DX: J44.9 Chronic obstructive pulmonary disease, unspecified (principal); R91.8 Other nonspecific abnormal finding of lung field; J43.9 Emphysema, unspecified; Z87.891 Personal history of nicotine dependence; R40.0 Somnolence; G47.33 Obstructive sleep apnea (adult) (pediatric) | CPT/HCPCS: 99212 ==

== ENCOUNTER 2025-02-03 10:40 | Outpatient (AMB) | payer MEDICARE, SELFPAY ==
--- NOTE | 2025-02-03 10:46 | MHC.OFFVIS ---
Vital Signs 02/03/25 10:54 Height 5 ft 1.52 in Weight 136 lb 10.986 oz BMI 25.4 BP 112/58 L Blood Pressure Location Lt brachial Position Sitting Pulse 92 Pulse Source Pulse Oximeter Pulse Oximetry (%) 94 Oxygen Delivery Method Room Air Intake Visit Reasons: f/u osteoporosis/hypercalciuria Intake Note: Patient present today for Osteoporosis and Hypercalciuria follow up. 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 Accompanied by: Son Allergies Latex, Natural Rubber Allergy (Intermediate, Verified 02/03/25 10:54) Rash scallops Allergy (Unknown, Verified 02/03/25 10:54) Unknown Medication List - Last Reconciled 02/03/25 by Bucky Velasquez MD albuterol sulfate 90 mcg/actuation 2 puffs inhalation Q4H PRN albuterol sulfate 2.5 mg (3 mL) inhalation Q4-6H PRN amlodipine 2.5 mg PO DAILY 90 days atorvastatin 40 mg PO DAILY betamethasone valerate 0.1% 1 appl topical DAILY biotin 5 mg PO DAILY cholecalciferol (vitamin D3) 25 mcg PO DAILY clopidogrel 75 mg PO QAM docusate sodium (Colace) 100 mg PO DAILY famotidine 40 mg PO BEDTIME fluticasone propion-salmeterol 230-21 mcg/actuation (Advair HFA) 2 puffs inhalation Q12H hydrochlorothiazide 12.5 mg PO DAILY latanoprost 0.005% 1 drp ophthalmic (eye) BEDTIME levetiracetam (Keppra) 750 mg PO BID levothyroxine 112 mcg PO DAILY lidocaine HCl 2% 1 appl topical .at bedtime 4 weeks magnesium 500 mg PO DAILY melatonin 10 mg PO .hs metformin 500 mg PO BID milk thistle 500 mg PO BID mirabegron ER (Myrbetriq) 50 mg PO DAILY oxycodone-acetaminophen 5-325 mg 1 tab PO BID PRN pantoprazole 40 mg PO BID peg 400-propylene glycol (PF) 0.4-0.3 % (Systane (PF)) 1 drp ophthalmic (eye) BID polyethylene glycol 3350 (Miralax) 17 grams PO DAILY simethicone 125 mg PO TID PRN trazodone 50 mg PO BEDTIME trospium ER 60 mg PO DAILY wheat dextrin (Benefiber Sugar Free (dextrin)) 1.5 grams PO BID HPI Comments Details: 79 YO Female with is seen in consultation at the request of PCP for Osteoporosis. First diagnosed in several yrs . Saw Raymundo Atkins in past. Never Received treatment in the past No history of pathologic fracture or ONJ. Fx L shoulder tripped . R foot fx 50 yrs ago after falling down stairs Has several servings of dietary calcium per day in the form of cheese, broccoli, ice cream . Not Takes Calcium supplement Takes 2000 IU of Vitamin D daily. Takes PPI, was on anticoagulant, on Keppra antiepileptic but no glucocorticoid medication. 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 UTD on dental cleanings and sees dentist every 6 months. No planned upcoming dental work or extractions. DXA dated :FINDINGS:09/29/22 AP SPINE L1-L4: BMD 0.785 g/cm2, Z-score -1.4, T-score -3.3, osteoporosis. LEFT FEMUR, NECK: BMD 0.573 g/cm2, Z-score -1.3, T-score -3.3, osteoporosis. LEFT FEMUR, TOTAL: BMD 0.639 g/cm2, Z-score -1.1, T-score -2.9, osteoporosis. IDENTIFIED RISK FACTORS: Early menopause, anticonvulsant, height loss, history of fracture (adult), osteoporosis, recurrent falls, secondary osteoporosis. HISTORY OF FRACTURE: Shoulder. MEDICATIONS: Calcium, vitamin D. MM/XR DEXA axial skeleton IMPRESSION: 1. DIAGNOSIS: Osteoporosis based on the lowest T-score value of -3.3 in the lumbar spine and femoral neck History of recent TIAs and MIs-partial wheelchair-bound Secondary workup showed hypercalciuria - The patient is a 79-year-old female presenting with hypercalciuria. She has a history of recurrent nephrolithiasis, experiencing kidney stones frequently, which she often passes spontaneously. Despite the frequent occurrence of stones, she has not been treated with diuretics previously. The patient also has osteoporosis, which may be related to the calcium being leached from the bones into the urine. She has been taking calcium supplements, which are now being discontinued to assess their impact on her condition. Additionally, the patient reports having emphysema, which was diagnosed since her last visit. She also has a hiatal hernia with gastroesophageal reflux disease, which affects her dietary habits and sleep. - Calcium supplements: 600 mg daily, now discontinued due to hypercalciuria. - Vitamin D: Continued as per current regimen. - Vitamin K: Part of a combination pill, reason for use unclear. The patient consumes a diet that includes a significant amount of ice cream and protein drinks. She has a preference for salty foods, which may contribute to her condition. Stopped the calcium supplementation but still has hypercalciuria The patient is a 79-year-old female presenting for management of hypercalciuria. The condition was identified due to persistently high urine calcium levels, despite cessation of calcium supplementation. The patient consumes a diet high in calcium-rich foods, such as ice cream, The patient was advised to continue vitamin D supplementation but to avoid calcium supplements. A low-dose diuretic, hydrochlorothiazide 12.5 mg, was prescribed to help reduce urinary calcium excretion. Follow-up tests, including a basic metabolic panel in 10 days and a 24-hour urine calcium test in 6 weeks, were planned to monitor the condition. [facility] Medical History Paraesophageal hernia Osteoporosis Lower GI bleed Rectal bleed Anemia Stable angina Essential hypertension CVA (cerebral vascular accident) CAD (coronary artery disease) Surgical History Status post cardiac catheterization History of cardiac cath History of adenoidectomy Hx of tonsillectomy Hx of hernia repair History of section History of cholecystectomy History of appendectomy Family History Mother Cancer Father Heart attack Social History Household Members: Children Housing: House Do you presently have visiting nurse or other home services: Yes Unable to assess alcohol history related to: Unknown Alcohol intake: never Patient Tobacco Use Status: Former Tobacco user Years Smoked: 30 +/- e-Cigarette/Vaping Use: Never Used Second Hand Smoke Exposure: No Substance Use Type: Marijuana service: No Current occupational status: retired Current occupation: right hand dominant Physical Exam Vital Signs: Last Vital Signs Pulse 92 02/03/25 10:54 BP 112/58 L 02/03/25 10:54 Pulse Ox 94 02/03/25 10:54 Oxygen Delivery Method Room Air 02/03/25 10:54 BMI result Body Mass Index 25.4 Assessment & Plan Assessment & Plan (1) Osteoporosis: Code(s): M81.0 - Age-related osteoporosis without current pathological fracture Category: Medical Plan: This is a 78-year-old white female with a history of osteoporosis. Secondary workup was positive for hypercalciuria. Still has persistent hypercalciuria We will start low-dose hydrochlorothiazide 12.5 mg daily. We will recheck 24 hour urine for calcium and creatinine in 6 weeks but will check a basic metabolic panel in 10 days . 1. Hypercalciuria The patient has persistently high urine calcium levels despite stopping calcium supplements. A low-dose diuretic, hydrochlorothiazide 12.5 mg, has been prescribed to reduce urinary calcium excretion. The patient is advised to continue vitamin D supplementation but avoid calcium supplements. Follow-up includes a basic metabolic panel in 10 days and a 24-hour urine calcium test in 6 weeks to monitor the condition. The patient had an opportunity to ask questions regarding treatment plan. The patient expressed understanding and agreement with the above treatment plan. Patient was informed and verbally consented to the use of an ambient scribe for clinic note documentation during this visit. - Orders: Orders Basic Metabolic Panel 10 Days M81.0 - Age-related osteoporosis without current pathological fracture Sodium, 24Hr Urine Group 6 Weeks M81.0 - Age-related osteoporosis without current pathological fracture Calcium, 24 Hr Ur 6 Weeks M81.0 - Age-related osteoporosis without current pathological fracture Creatinine, 24 Hr Group 6 Weeks M81.0 - Age-related osteoporosis without current pathological fracture Medications: New hydrochlorothiazide 12.5 mg PO DAILY 30 tabs 3RF Coding Level of Care Code Est Pt Level 3 (86217) Diagnoses Osteoporosis M81.0
[2025-02-03 10:54] VITALS: BP 112/58; PULSE 92; O2SAT 94; BMI 25.4
--- OUTSIDE RECORDS SUMMARY | 2025-02-03 11:40 | XMS_ITS | Clinical Summary ---
Author Organization [employer] Address [address] [place] [address] 7[address] [place] [address] Care Team Providers Care Deep Submergence Vehicle Crewmember Name Role Phone Name, Eddie GILMORE Primary Care Provider [phone] Allergies Active Allergy Reactions Criticality Noted Date [...] 06/01/20 22 Active Blood Glucose Monitoring Suppl (GEO'Supp Verio Flex System) w/Device kit USE DIRECTED [...] 12/12/19 25 Active Lancets (OneTouch Delica Plus Lopsin51J) miscIndication s:Controlled type 2 diabetes mellitus with complication, without long-term current use of insulin ([facility]) USE TO CHECK BLOOD SUGAR TWICE A DAY 100 each 5 12/12/19 25 Active famotidine (Pepcid) 40 MG tablet TAKE 1 TABLET BY MOUTH EVERY DAY 90 tablet 2 12/12/19 25 Active glucose blood (OneTouch Verio) test stripIndicatio ns:Controlled type 2 diabetes mellitus with complication, without long-term current use of insulin ([facility]) USE TO CHECK BLOOD SUGAR [...] AT BEDTIME 30 tablet 02/01/20 25 Active melatonin 5 MG tablet Take [...] refer stat to ENT for cauterization, possible JUNIOR ADMINISTRATIVE ASSISTANT scope Recommend anterior nasal packing if she is bleeding heavily alf (current) use of opiate analgesic 03/20 Overview (09/10/2024): Dx: chronic pain syndrome/back pain Rx: Percocet 5/325 every 8 hours Last INTELLIGENCE SENIOR SERGEANT agreement:03/22/24 Tier II (visit every 3 months) [...] that is chronic 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 She understands this is the [...] Type Department Care Team Description 01/31/2025 Refill [facility] CHC MED & PEDS [address] [place] [address] Edide Marshall MD 01/27/2025 Orders Only GENERIC EXTERNAL DATA DEPARTMENT Provider, Generic External Data 01/27/2025 Refill C MEDICINE [address] [place] [address] Eddie Marshall MD Chronic pain syndrome 01/09/2025 Orders Only [facility] External Provider, [facility] 01/03/2025 Refill C [facility] MED & PEDS [address] [place] [address] Eddie Marshall MD 12/30/2024 Telephone [facility] MEDICINE [address] [place] [address] 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, JULY Recommend INTELLIGENCE SENIOR SERGEANT Tele Tier 2 12/30/2024 Refill [facility] MEDICINE [address] [place] [address] Eddie Marshall MD Chronic pain syndrome 12/16/2024 Telephone [facility] MEDICINE [address] [place] [phone] Eddie Marshall MD Medication Question 12/16/2024 Refill C MEDICINE [address] [place] [address] Eddie Marshall MD Hypothyroidism, unspecified type 12/11/2024 Telephone C MEDICINE [address] [place] [address] Eddie Marshall MD Medication Question 12/11/2024 Telephone C MEDICINE [address] [place] [address] Eddie Marshall MD Med Refill 12/11/2024 Refill [facility] MEDICINE [address] [place] [address] Eddie Marshall MD Controlled type 2 diabetes mellitus with complication, without long-term current use of insulin ([facility]) 12/02/2024 Refill [facility] [address] [place] [address] Eddie Marshall MD Hypothyroidism, unspecified type 12/02/2024 Refill [facility] [address] [place] [address] Eddie Marshall MD Chronic pain syndrome 11/27/2024 Refill [facility] [address] [place] [address] Edide Marshall MD 11/25/2024 Orders Only GENERIC EXTERNAL DATA DEPARTMENT Provider, Generic External Data 11/12/2024 9:45 AM EDT Office Visit [facility] MEDICINE [address] [place] [phone] Mckenzie Trent FNP Chronic pain syndrome (Primary Dx); alf (current) use of opiate analgesic 11/12/2024 Travel 11/06/2024 Results Follow-Up [facility] MEDICINE [address] [place] [phone] Eddie Marshall MD Urinalysis, Complete, with Reflex to Culture, Culture, Urine, Routine 11/05/2024 Orders Only GENERIC EXTERNAL DATA DEPARTMENT Provider, Generic External Data 11/04/2024 Telephone [facility] MEDICINE [address] [place] [phone] Eddie Marshall MD Call Back Request 11/04/2024 Refill [facility] MEDICINE [address] [place] [phone] Eddie Marshall MD Chronic pain syndrome from Last 3 Months Immunizations Immunization Administration Dates Next Due Influenza injectable quadriv alent IIV4 with preservative 04/07/2016 Influenza, IIV3, injectable 03/23/2015,1 ,03/08/2013,04/06,05/01/2008,04/19/2007,05/10/2006 ,03/15/2005 Novel [id number], preservative-free 05/22/2009 Pneumococcal Polysaccharide PPSV23 07/11/2013, TD [...] Description 02/11/2025 9:45 AM EDT Office Visit [facility] MEDICINE [address] [place], [place] [phone] 02/19/2025 11:15 AM EDT Office Visit [facility] MEDICINE [address] [place] [address] Name, [place] [address] Health Maintenance Due Date Last Done Comments [...] VITAMIN D,25-OH,TOTAL,IA Routine 01/27/2025 10:25 AM EDT CALCIUM, 24 HOUR URINE (W/ CREATININE) Routine 01/27/2025 7:30 AM EDT SODIUM, 24-HOUR URINE WITH CREATININE [...] 25-Hydroxy, Total, Immunoassay (01/27/2025 10:25 AM EDT) [facility] Vitamin D 25-OH Total 73.8 >30 ng/mL [facility] Comment: Health Based Reference Values*< 20 ng/mL Vkvfpnzzl55-48 ng/mL Insufficient> 30 ng/mL Sufficient*Judy REDDY. N [...] 5 AM EDT 01/27/2025 10:25 AM EDT us Generic External Data Provider LAB BLOOD ORDERAB LES Final Result Performing Organization Address [facility] [place]/[facility] Co de Phone Number [facility] [address] [place] [phone] * (ABNORMAL) Sodium, 24-Hour Urine with Creatinine (01/27/2025 7:30 AM EDT) Sodium, 24 Hour Urine 62.3 40 - 220 mmol/Day [facility] Creatinine, 24 Hour Urine 0.6(L) 1.0 - 2.0 G/Day [facility] Creatinine, Urine 54.30 [facility] Urine Total Volume 24 Hour 1,175 mL [facility] 01/27/2025 7:30 AM EDT 01/27/2025 12:46 PM EDT us Generic External Data Provider LAB URINE ORDERAB LES Final Result Performing Organization Address [facility] Phone Number [facility] [address] [place] [phone] * (ABNORMAL) CREATININE, 24 HR GROUP (01/27/2025 7:30 AM EDT) Creatinine, 24 Hour Urine 0.6(L) 1.0 - 2.0 G/Day [facility] Creatinine, Urine 53.89 [facility] Urine Total Volume 24 Hour 1,175 mL [facility] 01/27/2025 7:30 AM EDT 01/27/2025 12:41 PM EDT Narrative [facility] - 01/27/2025 2:25 PM EDT [id number] us Generic External Data Provider LAB URINE ORDERAB LES Final Result Performing Organization Address City/[facility] [place]/[facility] Co de Phone Number [facility] [address] [place] [phone] * (ABNORMAL) Calcium, 24 Hour Urine W/ Creatinine (01/27/2025 7:30 AM EDT) Calcium, 24 Hour Urine 435(A) mg/24 h [facility] Comment:Reference Range 35-2 50 Low calcium diet 35-200 Calcium/Creatini ne Ratio 673(A) 30 - 275 mg/g creat [facility] Creatinine, 24 Hour Urine 0.65 0.50 - 2.15 g/24 h [facility] Comment:THIS TEST WAS PERFOR MED AT:[facility] [place] [phone] PAYNE MD 01/27/2025 7:30 AM EDT 01/27/2025 12:46 PM EDT us Generic External Data Provider LAB URINE ORDERAB LES Final Result [facility] [address] [place] [phone] * CT Chest w/o Contrast (01/09/2025 1:24 PM EDT) Anatomical Region Laterality Modality Body, Chest Computed Tomogra phy 01/09/2025 1:24 PM EDT Narrative 01/09/2025 2:14 PM EDT [address] [address] [address] Scan Report Signed Patient: Celeste Abad MR#: [id number] 4 : 1945 Acct:[id number] Age/Sex: 79 / F ADM Date: 01/09/25 Loc: HO.CT Attending Dr: Maria Esther Blum JUNIOR ADMINISTRATIVE ASSISTANT Ordering Physician: Maria Esther Blum NP Date of Service: 01/09/25 Procedure(s): CT chest wo IV con Accession Number(s): [id number] cc: Joanna,Eddie GILMORE; Maria Esther Blum NP Report Number: [id number]: Total DLP = 219.00 mGy-cm EXAMINATION: CT [...] 01/09/25 1411 DD/ 1324 TD/TT: 01/09/25 1338 Kiln Transfer Operator: Procedure Note Donotuseinterpreter, Image - 01/09/[address] [place] [address] [address] Scan Report Signed Patient: Celeste AbadMR#: [id number] 4 : 1945cct:[id number] Age/Sex: 79 / FADM Date: 01/09/25 Loc: HO.CT Attending Dr: Maria Esther Blum NP Ordering Physician: Maria Esther Blum NP Date of Service: 01/09/25 Procedure(s): CT chest wo IV con Accession Number(s): [id number] cc: Eddie Marshall MD; Maria Esther Blum NP Report Number: [id number]: Total DLP = 219.00 mGy-cm EXAMINATION: CT [...] 01/09/25 1411 DD/ 1324 TD/TT: 01/09/25 1338 Kiln Transfer Operator: [facility] External Provider IMG CT PROCEDURES Edited Result - Final * Phosphate (As Phosphorus) (11/25/2024 2:08 PM EDT) [facility] Phosphorus 4.3 2.7 - 4.5 mg/dL [facility] 11/25/2024 2:08 PM EDT 11/25/2024 2:08 PM EDT Generic External Data Provider LAB BLOOD ORDERAB LES Final Result Performing Organization Address City/State/[facility] Co de Phone Number [facility] [address] [place] [phone] * POCT ADRIAN-14 Urine Drug Screen (11/12/2024 10:14 AM EDT) [facility] Oxycodone Screen, Urine Positive Urine Urine specimen obtained by clean catch procedure / Unknown 11/12/2024 10:14 AM EDT Narrative Estrellita Crenshaw RN - 11/12/2024 10:14 AM EDT .UT[employer] cup Lot#[id number] Exp. 04/18/26 Internal Pass Control Mckenzie Trent ROOM SERVER POINT OF CARE TEST ENTER/EDIT ORDERABLES Final Result * T-SPOT??.TB (11/05/2024 12:13 PM EDT) [facility] T Spot TB Negative Negative [facility] Comment:A negative test resu lt [...] as aquantitative test. TS PANEL A 2 [facility] TS PANEL B 3 [facility] Negative Control Passed [facility] Positive Control Passed [facility] Comment:For additional infor vimal, please refer tohttp://education.[employer] [place]/faq/LUA017(This link is being provided for informational/educational purposes only.)THIS TEST WAS PERFORMED AT:[employer] [id number] [place] [address]LTVDYDTANKITA MADDOX MD,PHD 11/05/2024 12:1 3 PM EDT 11/05/2024 1:07 PM EDT us Eddie Marshall MD LAB BLOOD ORDERABLES Final Resul t [facility] [address] [place] [phone] * (ABNORMAL) Urinalysis, Complete, with Reflex to Culture (11/05/2024 11:16 AM EDT) Color Urine Yellow [facility] Appearance Urine Cloudy [facility] PH 6.5 5.0 - 9.0 [facility] Glucose Urine UA Negative Negative mg/dL [facility] Urine Blood Negative Negative [facility] Specific Mondamin - Urine 1.015 1.005 - 1.025 [facility] Urine Protein Negative Neg-Trace mg/dL [facility] Urine Ketones Negative Negative mg/dL [facility] Nitrite Urine Negative Negative [facility] Leukocyte Esterase Urine Moderate (2+)(A) Negative [facility] RBC Urine 0-2 0 - 2 /HPF [facility] Urine WBC 21-50(A) 0 - 5 /HPF [facility] Urine Squamous Epithelial Cell 3-5 0 - 2 /HPF [facility] Urine Bacteria 4+ None Seen [facility] Hyaline Casts, Urine 0-2 0 - 2 /LPF [facility] 11/05/2024 11:1 6 AM EDT 11/05/2024 11:25 AM EDT Narrative [facility] - 11/05/2024 11:35 AM EDT Urine, Clean Catch Generic External Data Provider LAB URINE ORDERAB LES Final Result Performing Organization Address [facility] de Phone Number [facility] [address] [place] [phone] * Culture, Urine, Routine (11/05/2024 12:00 AM EDT) Urine Urine specimen obtained by clean catch procedure / Unknown 11/05/2024 11/05/2024 Comment:[facility] Narrative [facility] - 11/07/2024 7:44 AM EDT [...] GENERAL ORDERABLES Final Result Performing Organization Address [facility] [place]/[facility] de Phone Number [facility] [address] [place] [address] [phone] * POCT HGB A1C (10/29/2024 2:29 PM EDT) Hemoglobin A1C 5.4 4.0 - 6.0 % [employer] Lot # [id number] Lot# Expiration Date Blood 10/29/2024 2:29 PM EDT us Eddie Marshall MD POINT OF CARE TEST ENTER/EDIT OR DERABLES Final Result * (ABNORMAL) Lipid Panel, Standard (01/16/2024 9:40 AM EDT) Triglycerides 199(H) <150 mg/dL [facility] Comment:Desirable Triglyceri de: less than 150 mg/dLBorderline High Triglyceride 150-199 mg/dLHigh Triglyceride: 200-499 mg/dLVery High Triglyceride: greater than or equal to 5OO mg/dL Cholesterol 150 <200 mg/dL [facility] Comment:Desirable Cholestero l: less than 200 mg/dLBorderline High Cholesterol: 200-239 mg/dLHigh Cholesterol: greater than 239 mg/dL LDL Cholesterol Calculated 63 <100 mg/dL [facility] Comment:Desirable LDL: less than 100 mg/dLNear Optimal/Above Optimal LDL: 110- 129 mg/dLBorderline High LDL: 130-159 mg/dLHigh LDL: 160-189 mg/dLVery High LDL: greater than or equal to 190 mg/dL HDL Cholesterol 48 >40 mg/dL [facility] Comment:Desirable HDL: great er than 40 mg/dL Note: This HDL assay may give artificially low results in patients with liver disease. Blood Venous blood specimen / Unknown 01/16/2024 9:40 AM EDT 01/16/2024 11:20 AM EDT us Eddie Marshall MD LAB BLOOD ORDERABLES Final Resul t [facility] [address] [place] [address] [phone] * Albumin, Random Urine W/Creatinine (01/16/2024 9:35 AM EDT) Creatinine, Urine 27.62 mg/dL [facility] Microalbumin Urine <5.0 mg/L [facility] Microalbum Creatinine Ratio Ur TNP <30 ug/mg cr [facility] Comment:Unable to calculate albumin/creatinine ratio due to lowmicroalbumin or creatinine result. Urine (Urine, Random) 01/16/2024 9:35 AM EDT 01/16/2024 11:12 AM EDT us Eddie Marshall MD LAB URINE ORDERABLES Final Resul t [facility] [address] [place] [phone] [phone] * Diabetes Eye Exam (05/16/2023) Eye Exam Normal Normal us Eddie Marshall MD HEALTH MAINTENANCE Final Result * (ABNORMAL) Hepatitis Panel, General (11/18/2022 2:07 PM EDT) Hepatitis A Antibody Total REACTIVE( A) NON-REACT [facility] Comment: For additional information, please refer to http://education.[employer] [place]/faq/WST727 (This link is being provided for informational/ educational purposes only.) Hepatitis B Surface Antibody QL NON-REACT NAHID NON-REACT NAHID [facility] [place] [facility] Hepatitis B Surface Ag NON-REACT NAHID NON-REACT NAHID [facility] [place] [facility] Hepatitis B Core Antibody Total NON-REACT NAHID NON-REACT [facility] [place] [facility] Hepatitis C Antibody NON-REACT NAHID NON-REACT NAHID [facility] [place] [facility] Index 0.07 <1.00 [facility] [place] [facility] Comment: HCV antibody was non-reactive. There is no laboratory evidence of HCV infection. In most cases, no further action is required. However, if recent HCV exposure is suspected, a test for HCV RNA (test code 85497) is suggested. For additional information please refer to http://education.[employer]/faq/AHM08o1 (This link is being provided for informational/ educational purposes only.) 11/18/2022 2:07 PM EDT 11/18/2022 2:09 PM EDT Narrative [facility] - 11/19/2022 6:51 AM EDT COLLECTION KIT GIVEN TO PATIENT. PATIENT ADVISED TO RETURN. Mckenzie Pillai ROOM SERVER LAB BLOOD ORDERABLES Final Res ult [facility] [address], [place] [address] [facility] [address] [place] [address] from Last 3 Months or Most Recently Relevant to Health Maintenance Insurance [employer] Care Teams Deep Submergence Vehicle Crewmember Relationship Specialty Start Date End Date Name, MD Eddie [address] [place] [address] PCP - General Family Medicine 09/16/15 Jerica SEN 07/01/24
== END 2025-02-03 11:15 | disposition home or self-care (01) ==
LOC: HO.ENCR 10:41
PROVIDERS: PCP Internal Medicine Geriatric Medicine; Visit Provider Internal Medicine Endocrinology, Diabetes & Metabolism
DX: M81.0 Age-related osteoporosis without current pathological fracture (principal)
CPT/HCPCS: 99213

== ENCOUNTER → 2025-02-03 10:40 | Outpatient (BNVA) | payer MEDICARE, SELFPAY | PROVIDERS: PCP Internal Medicine Geriatric Medicine; Visit Provider Internal Medicine Endocrinology, Diabetes & Metabolism | DX: M81.0 Age-related osteoporosis without current pathological fracture (principal) | CPT/HCPCS: 99212 ==

== ENCOUNTER 2025-02-10 10:26 | Outpatient (AMB) | payer MEDICARE, SELFPAY ==
[2025-02-10 10:59] VITALS: BP 110/60; PULSE 87; BMI 25.4
--- NOTE | 2025-02-10 10:59 | MHC.OFFVIS ---
Vital Signs 02/10/25 10:59 Height 5 ft 1.2 in Weight 135 lb 2 oz BMI 25.4 BP 110/60 Blood Pressure Location Lt brachial Position Sitting Pulse 87 Pulse Source Pulse Oximeter Intake Visit Reasons: 4 mth f/up Intake Note: 4 mth f/up Batch Operator Required: No Accompanied by: Self / Same As Patient Allergies Latex, Natural Rubber Allergy (Intermediate, Verified 02/03/25 10:54) Rash scallops Allergy (Unknown, Verified 02/03/25 10:54) Unknown Medication List - Last Reconciled 02/10/25 by Shaquille Trivedi MD albuterol sulfate 90 mcg/actuation 2 puffs inhalation Q4H PRN albuterol sulfate 2.5 mg (3 mL) inhalation Q4-6H PRN atorvastatin 40 mg PO DAILY betamethasone valerate 0.1% 1 appl topical DAILY biotin 5 mg PO DAILY cholecalciferol (vitamin D3) 25 mcg PO DAILY clopidogrel 75 mg PO QAM docusate sodium (Colace) 100 mg PO DAILY famotidine 40 mg PO BEDTIME fluticasone propion-salmeterol 230-21 mcg/actuation (Advair HFA) 2 puffs inhalation Q12H hydrochlorothiazide 12.5 mg PO DAILY latanoprost 0.005% 1 drp ophthalmic (eye) BEDTIME levetiracetam (Keppra) 750 mg PO BID levothyroxine 112 mcg PO DAILY lidocaine HCl 2% 1 appl topical .at bedtime 4 weeks magnesium 500 mg PO DAILY melatonin 10 mg PO .hs metformin 500 mg PO BID milk thistle 500 mg PO BID mirabegron ER (Myrbetriq) 50 mg PO DAILY oxycodone-acetaminophen 5-325 mg 1 tab PO BID PRN pantoprazole 40 mg PO BID peg 400-propylene glycol (PF) 0.4-0.3 % (Systane (PF)) 1 drp ophthalmic (eye) BID polyethylene glycol 3350 (Miralax) 17 grams PO DAILY simethicone 125 mg PO TID PRN trazodone 50 mg PO BEDTIME trospium ER 60 mg PO DAILY wheat dextrin (Benefiber Sugar Free (dextrin)) 1.5 grams PO BID HPI Comments Details: Pleasant 79-year-old female who is here for follow-up. She has background history of coronary artery disease underwent primary PCI to left anterior descending artery in the past. She was complaining of chest discomfort. She is not very active and has been wheelchair bound. Given her pain at rest we decided to arrange stress test which was abnormal showing inferior and inferoseptal perfusion defect. She was taken for cardiac catheterization after discussion which showed severe right coronary artery as well as LAD stenosis. She underwent PCI to RCA and staged PCI to the LAD. She has no chest discomfort on follow up. She still has BRADLEY. She is very deconditioned and does not do much activities. I have discussed with her about cardiac rehab but she cannot come for frequent visits due to transport issues. She previously saw a windows systems engineer and will d/w PCP to be referred again. 01/09/2023: She returns for follow-up. In November 2022 she got admitted to [facility] with GI bleed. Her aspirin and ticagrelor were held and she underwent endoscopy and no obvious cause was found. She subsequently had C diff infection also. She is waiting to undergo capsule endoscopy. She is denying any bleeding at this point. She is taking aspirin ticagrelor. No chest discomfort or significant shortness of breath. Blood pressure control is good. 05/15/23: She returns for follow-up. She has been experiencing some palpitations. She had blood workup done recently which is showing iron deficiency. She was previously told to hold her iron supplements. I have advised to restart them. She also had 1 episode of indigestion like chest discomfort. 09/06/2023: She returns for follow-up. It appears her GI workup did not reveal any obvious bleeding source. She has been on iron supplementation since then. Her last hemoglobin in July was 11.3. % saturation of iron is 6% and iron level was 21. She still continues to be iron deficient but overall hemoglobin has improved. She is complaining of some chest discomfort which is a pressure-like feeling which has happened to her a few times at night along with palpitations. We tried to do a Holter monitor but she has a severe allergy to electrodes and tape and at times she had skin breakdown and bleeding. Due to this the monitor was not done. She comes in a wheelchair but walks between rooms. Very rarely she gets some discomfort walking around symptoms are mostly at night times infrequently. 11/22/23: She returns for follow-up. She is denying any chest discomfort. He has some fatigue and shortness of breath. She usually come in in electric wheelchair to inside the house she walks with cane for short distances. She does not do any other exercise. She has some orthopnea like episode but also snores at night and has daytime somnolence and headaches. She said she was diagnosed with sleep apnea at some stage but then she lost lot of weight. Recently she has not had any testing. 05/27/2024: She returns for follow-up. She is been experiencing chest discomfort which is a burning sensation when she bends forward or laid down. She has a large hiatal hernia discovered on endoscopy and has been referred to surgery for further assessment. She also has been experiencing some shortness of breath with activities. She is a former smoker. 10/02/2024: Celeste is here for follow-up. She unfortunately had nosebleed and was in the emergency department requiring rhino rocket and cauterization. She has been using saline nasal gel once a day. I have advised her to use at least 3 to 4 times a day. She has a large paraesophageal hernia and significant reflux symptoms and is considering surgery for that. She is saying that she may need a repeat endoscopy where Plavix may have to be stopped completely. She has been on single agent due to concerns for bleeding given advanced age and frailty. Denying any other cardiovascular symptoms currently. Most of the discussion today was about surgical risk for her in case she goes for surgery. 02/10/2025: She returns for follow-up. She has indigestion like feeling which is worse at nighttime. She decided not to do the surgery for paraesophageal hernia. Her blood pressure has been fluctuating at home and more recently she was also started on hydrochlorothiazide. Her home blood pressure readings are between 90-100 at this point. She also is losing weight due to indigestion after eating. She is saying she is eating less. [facility] Medical History Paraesophageal hernia Osteoporosis Lower GI bleed Rectal bleed Anemia Stable angina Essential hypertension CVA (cerebral vascular accident) CAD (coronary artery disease) Surgical History Status post cardiac catheterization History of cardiac cath History of adenoidectomy Hx of tonsillectomy Hx of hernia repair History of section History of cholecystectomy History of appendectomy Family History Mother Cancer Father Heart attack Social History Household Members: Children Housing: House Do you presently have visiting nurse or other home services: Yes Unable to assess alcohol history related to: Unknown Alcohol intake: never Patient Tobacco Use Status: Former Tobacco user Years Smoked: 30 +/- e-Cigarette/Vaping Use: Never Used Second Hand Smoke Exposure: No Substance Use Type: Marijuana service: No Current occupational status: retired Current occupation: right hand dominant Physical Exam Vital Signs: Last Vital Signs Pulse 87 02/10/25 10:59 BP 110/60 02/10/25 10:59 BMI result Body Mass Index 25.4 GENERAL APPEARANCE: in no acute distress. NECK/THYROID: no carotid bruit, no jugular venous distention. SKIN: no suspicious lesions, warm and dry. HEART: no murmurs, regular rate and rhythm, S1, S2 normal. LUNGS: clear to auscultation bilaterally. ABDOMEN: normal, bowel sounds present, soft, nontender, nondistended. EXTREMITIES: no clubbing, cyanosis, or edema. PERIPHERAL PULSES: equal. NEUROLOGIC: nonfocal, alert and oriented. PSYCH: mood/affect full range. Assessment & Plan Assessment & Plan (1) Stable angina: Code(s): I20.8 - Other forms of angina pectoris Category: Medical Plan [age] year female who is here for follow-up. She has known history of coronary disease with multiple PCIs in the past. She is denying any anginal symptoms. Mostly describing indigestion like feeling secondary to acid reflux and paraesophageal hernia. She has decided not to do the surgery. Blood pressure reading in the office is okay but her home blood pressure readings are from 90s to 100s in the last week and it appears she was given hydrochlorothiazide in the last week. We reviewed the endocrinology consult and it appears she is given hydrochlorothiazide for hypercalciuria. I think we continue with the hydrochlorothiazide and stopped the amlodipine 2.5 mg. She will follow up with us in 6 months. Thank you for allowing me to participate in the care of your patient. Please feel free to contact me if you have any questions. Coding Level of Care Code Est Pt Level 3 (52225) Diagnoses Stable angina I20.8
--- OUTSIDE RECORDS SUMMARY | 2025-02-10 11:36 | XMS_ITS | Clinical Summary ---
Author Organization [employer] Address [address] [place] [address] [address] [place] [address] Care Team Providers Care Data Deliverables Manager Name Role Phone Name, Eddie GILMORE Primary Care Provider [phone] Allergies Active Allergy Reactions Criticality Noted Date [...] 06/01/20 22 Active Blood Glucose Monitoring Suppl (CondoDomain Verio Flex System) w/Device kit USE DIRECTED [...] MORNING 90 tablet 1 09/17/19 25 Active Advair HFA 230-21 MCG/ACT inhaler INHALE 2 PUFFS BY MOUTH EVERY TWELVE HOURS Active cholecalcifero l VITAMIN D (Vitamin D-3) 50 MCG (1999 UT) tablet TAKE 1 TABLET BY MOUTH EVERY MORNING 90 tablet 2 12/12/19 25 Active Lancets (SemantraTouch Delica Plus [id number]) miscIndication s:Controlled type 2 diabetes mellitus with complication, without long-term current use of insulin ([facility]) USE TO CHECK BLOOD SUGAR TWICE A DAY 100 each 5 12/12/19 25 Active famotidine (Pepcid) 40 MG tablet TAKE 1 TABLET BY MOUTH EVERY DAY 90 tablet 2 12/12/19 25 Active glucose blood (SemantraTouch Verio) test stripIndicatio ns:Controlled type 2 diabetes mellitus with complication, without long-term current use of insulin ([facility]) USE TO CHECK BLOOD SUGAR TWICE A DAY 50 strip 5 12/12/19 25 Active levothyroxine (Synthroid, Levoxyl) 112 MCG tabletIndicati ons:Hypothyroi dism, unspecified type TAKE 1 TABLET BY MOUTH EVERY DAY 30 tablet 3 12/17/19 25 Active Polyethyl Glycol-Propyl Glycol (Systane) 0.4-0.3 % solution 1 drop in both eyes twice daily 5 mL 12/17/19 25 Active latanoprost (Xalatan) 0.005 % [...] AT BEDTIME 30 tablet 02/01/20 25 Active albuterol 108 (90 Base) MCG/ACT inhaler INHALE 2 PUFFS BY MOUTH EVERY 4 TO 6 HOURS NEEDED 8.5 g 1 02/05/20 25 Active albuterol 108 (90 Base) MCG/ACT inhaler INHALE 2 PUFFS BY MOUTH EVERY 4 TO 6 HOURS NEEDED 8.5 g 1 10/29/19 25 025 Discontinued(R eorder (will not trigger [...] refer stat to ENT for cauterization, possible QUALITY ENG scope Recommend anterior nasal packing if she is bleeding heavily [facility] (current) use of opiate analgesic 03/20 Overview (09/10/2024): Dx: chronic pain syndrome/back pain Rx: Percocet 5/325 every 8 hours Last GOVERNMENT PROPERTY INSPECTOR agreement:03/22/24 Tier II (visit every 3 months) [...] that is chronic 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 She understands this is the [...] organization. Date Type Department Care Team Description 02/04/2025 Refill [facility] [address] [place] [address] Eddie Marshall MD 01/31/2025 Refill [facility] [address] [place] [address] Eddie Marshall MD 01/27/2025 Orders Only GENERIC EXTERNAL DATA DEPARTMENT Provider, Generic External Data 01/27/2025 Refill [facility] MEDICINE [address] [place] [address] Eddie Marshall MD Chronic pain syndrome 01/09/2025 Orders Only [facility] External Provider, [facility] 01/03/2025 Refill [facility] [address] [place] [address] Eddie Marshall MD 12/30/2024 Telephone C MEDICINE [address] [place] [address] 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, JULY Recommend GOVERNMENT PROPERTY INSPECTOR Tele Tier 2 12/30/2024 Refill [facility] MEDICINE [address] [place] [address] Eddie Marshall MD Chronic pain syndrome 12/16/2024 Telephone C MEDICINE [address] [place] [address] Eddie Marshall MD Medication Question 12/16/2024 Refill [facility]IC[facility] [address] [place] [address] Eddie Marshall MD Hypothyroidism, unspecified type 12/11/2024 Telephone C MEDICINE [address] [place] [address] Eddie Marshall MD Medication Question 12/11/2024 Telephone [facility]IC[facility] [address] [place] [address] Eddie Marshall MD Med Refill 12/11/2024 Refill [facility]ICINE [address] [place] [address] Eddie Marshall MD Controlled type 2 diabetes mellitus with complication, without long-term current use of insulin ([facility]) 12/02/2024 Refill [facility] MEDIC[facility] [address] [place] [address] Name, MD Eddie Hypothyroidism, unspecified type 12/02/2024 Refill [facility] [address] [facility] [address] Name, MD Eddie Chronic pain syndrome 11/27/2024 Refill [facility] [address] [facility] [place] [address] Name, MD Eddie 11/25/2024 Orders Only GENERIC EXTERNAL DATA DEPARTMENT Provider, Generic External Data 11/12/2024 9:45 AM EDT Office Visit [facility] [address] [facility] [place], [place] [phone] Mckenzie Trent FNP Chronic pain syndrome (Primary Dx); 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) use 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 analgesic 11/12/2024 Travel from Last 3 Months Immunizations Immunization Administration Dates Next Due Influenza injectable quadriv alent IIV4 with preservative 04/07/2016 Influenza, IIV3, injectable 03/23/2015,1 ,03/08/2013,04/06,05/01/2008,04/19/2007,05/10/2006 ,03/15/2005 Novel [id number], preservative-free 05/22/2009 Pneumococcal Polysaccharide PPSV23 07/11/2013, TD [...] Answer Date Recorded Internet Access Q1 Yes 02/05/2025 Internet Access Q2 Not on file 02/05/2025 Comments Unknown Sex and Gender Information Value [...] Description 02/11/2025 9:45 AM EDT Office Visit [address] [address] 02/19/2025 11:15 AM EDT Office Visit [facility] [address] [facility] [place] [address] Name, MD Eddie [address] [facility] [place] [address] Health Maintenance Due Date Last Done Comments Alcohol/Substance Use Screening 1957 Zoster Vaccines (1 of 2) 1996 Pneumococcal [...] 09/14/2022 Lipid Panel 01/15/2025 01/16/2024, 08/18, 03/18/2020 Influenza Vaccine (#1) 2025 6, 03/23/2015, 03/27/2014, [...] 11/12/2024 10:14 AM EDT Chronic pain syndrome POCT GLYCATED HEMOGLOBIN, TOTAL Routine 10/29/2024 2:29 PM EDT Controlled type 2 diabetes mellitus with complication, without long-term current use of insulin ([facility]) LIPID PANEL, STANDARD Routine 01/16/2024 9:40 AM EDT Controlled type 2 diabetes mellitus with complication, without long-term current use of insulin ([facility]) ALBUMIN, RANDOM URINE W/CREATININE Routine 01/16/2024 9:35 AM EDT Primary hypertension HM DIABETES EYE EXAM Routine 05/16/2023 HEPATITIS PANEL, GENERAL Routine 11/18/2022 2:07 PM EDT Diarrhea, unspecified type from Last 3 Months or Most Recently Relevant to Health Maintenance Results * Vitamin D, 25-Hydroxy, Total, Immunoassay (01/27/2025 10:25 AM EDT) Vitamin D 25-OH Total 73.8 >30 ng/mL [facility] Comment: Health Based Reference Values*< 20 ng/mL Elnzzmpwu04-74 ng/mL Insufficient> 30 ng/mL Sufficient*Judy REDDY. N [...] ORDERAB LES Final Result [facility] [address] [place] [phone] * (ABNORMAL) Sodium, 24-Hour Urine with Creatinine (01/27/2025 7:30 AM EDT) Sodium, 24 Hour Urine 62.3 40 - 220 mmol/Day [facility] Creatinine, 24 Hour Urine 0.6(L) 1.0 - 2.0 G/Day [facility] Creatinine, Urine 54.30 [facility] Urine Total Volume 24 Hour 1,175 mL [facility] 01/27/2025 7:30 AM EDT 01/27/2025 12:46 PM EDT Generic External Data Provider LAB URINE ORDERAB LES Final Result Performing Organization Address [facility] de Phone Number [facility] [address] [place] [phone] * (ABNORMAL) CREATININE, 24 HR GROUP (01/27/2025 7:30 AM EDT) Creatinine, 24 Hour Urine 0.6(L) 1.0 - 2.0 G/Day [facility] Creatinine, Urine 53.89 [facility] Urine Total Volume 24 Hour 1,175 mL [facility] 01/27/2025 7:30 AM EDT 01/27/2025 12:41 PM EDT Narrative [facility] - 01/27/2025 2:25 PM EDT [id number] us Generic External Data Provider LAB URINE ORDERAB LES Final Result Performing Organization Address [facility] de Phone Number [facility] [address] [place] [address] [phone] * (ABNORMAL) Calcium, 24 Hour Urine W/ Creatinine (01/27/2025 7:30 AM EDT) Calcium, 24 Hour Urine 435(A) mg/24 h [facility] Comment:Reference Range 35-2 50 Low calcium diet 35-200 Calcium/Creatini ne Ratio 673(A) 30 - 275 mg/g creat [facility] Creatinine, 24 Hour Urine 0.65 0.50 - 2.15 g/24 h [facility] Comment:THIS TEST WAS PERFOR MED AT:[facility] [place] [phone] PAYNE MD 01/27/2025 7:30 AM EDT 01/27/2025 12:46 PM EDT us Generic External Data Provider LAB URINE ORDERAB LES Final Result [facility] [address] [place] [phone] * CT Chest w/o Contrast (01/09/2025 1:24 PM EDT) Anatomical Region Laterality Modality Body, Chest Computed Tomogra phy 01/09/2025 1:24 PM EDT Narrative 01/09/2025 2:14 PM EDT [address] [address] [address] Scan Report Signed Patient: Celeste Abad MR#: [id number] 4 : 1945 Acct:[id number] Age/Sex: 79 / F ADM Date: 01/09/25 Loc: HO.CT Attending Dr: Maria Esther Blum NP Ordering Physician: Maria Esther Blum NP Date of Service: 01/09/25 Procedure(s): CT chest wo IV con Accession Number(s): [id number] cc: Name,Eddie GILMORE; Maria Esther Blum NP Report Number: [id number]: Total DLP = 219.00 mGy-cm EXAMINATION: CT [...] 01/09/25 1411 DD/ 1324 TD/TT: 01/09/25 1338 Honey Producer: Procedure Note [email or web address], Image - 01/09/[address] [address] [address] Scan Report Signed Patient: Celeste AbadMR#: [id number] 4 : 1945cct:[id number] Age/Sex: 79 / FADM Date: 01/09/25 Loc: HO.CT Attending Dr: Maria Esther Blum NP Ordering Physician: Maria Esther Blum NP Date of Service: 01/09/25 Procedure(s): CT chest wo IV con Accession Number(s): [id number] cc: Name,Eddie GILMORE; MariaE sther Blum NP Report Number: [id number]: Total DLP = 219.00 mGy-cm EXAMINATION: CT [...] 01/09/25 1411 DD/ 1324 TD/TT: 01/09/25 1338 Honey Producer: us [facility] External Provider IMG CT PROCEDURES Edited Result - Final * Phosphate (As Phosphorus) (11/25/2024 2:08 PM EDT) Phosphorus 4.3 2.7 - 4.5 mg/dL [facility] 11/25/2024 2:08 PM EDT 11/25/2024 2:08 PM EDT Generic External Data Provider LAB BLOOD ORDERAB LES Final Result [facility] [address] [place] [phone] [phone] * POCT ADRIAN-14 Urine Drug Screen (11/12/2024 10:14 AM EDT) Oxycodone Screen, Urine Positive Urine Urine specimen obtained by clean catch procedure / Unknown 11/12/2024 10:14 AM EDT Narrative Estrellita Crenshaw RN - 11/12/2024 10:14 AM EDT .UTOX cup Lot#[id number] Exp. 04/18/26 Internal Pass Control Mckenzie Trent GUEST SERVICE SUPERVISOR POINT OF CARE TEST ENTER/EDIT ORDERABLES Final Result * POCT HGB A1C (10/29/2024 2:29 PM EDT) Hemoglobin A1C 5.4 4.0 - 6.0 % QC Media Lot # [id number] Lot# Expiration Date Blood 10/29/2024 2:29 PM EDT Eddie Marshall MD POINT OF CARE TEST ENTER/EDIT OR DERABLES Final Result * (ABNORMAL) Lipid Panel, Standard (01/16/2024 9:40 AM EDT) Triglycerides 199(H) <150 mg/dL [facility] Comment:Desirable Triglyceri de: less than 150 mg/dLBorderline High Triglyceride 150-199 mg/dLHigh Triglyceride: 200-499 mg/dLVery High Triglyceride: greater than or equal to 5OO mg/dL Cholesterol 150 <200 mg/dL [facility] Comment:Desirable Cholestero l: less than 200 mg/dLBorderline High Cholesterol: 200-239 mg/dLHigh Cholesterol: greater than 239 mg/dL LDL Cholesterol Calculated 63 <100 mg/dL [facility] Comment:Desirable LDL: less than 100 mg/dLNear Optimal/Above Optimal LDL: 110- 129 mg/dLBorderline High LDL: 130-159 mg/dLHigh LDL: 160-189 mg/dLVery High LDL: greater than or equal to 190 mg/dL HDL Cholesterol 48 >40 mg/dL [facility] Comment:Desirable HDL: great er than 40 mg/dL Note: This HDL assay may give artificially low results in patients with liver disease. Blood Venous blood specimen / Unknown 01/16/2024 9:40 AM EDT 01/16/2024 11:20 AM EDT us Eddie Marshall MD LAB BLOOD ORDERABLES Final Resul t Performing Organization Address [facility] Co de Phone Number [facility] [address] [place] [address] [phone] * Albumin, Random Urine W/Creatinine (01/16/2024 9:35 AM EDT) Creatinine, Urine 27.62 mg/dL [facility] Microalbumin Urine <5.0 mg/L [facility] Microalbum Creatinine Ratio Ur TNP <30 ug/mg cr [facility] Comment:Unable to calculate albumin/creatinine ratio due to lowmicroalbumin or creatinine result. Urine (Urine, Random) 01/16/2024 9:35 AM EDT 01/16/2024 11:12 AM EDT us Eddie Marshall MD LAB URINE ORDERABLES Final Resul t Performing Organization Address [facility] Co de Phone Number [facility] [address] [place] [address] [phone] * Hm Diabetes Eye Exam (05/16/2023) Eye Exam Normal Normal us Eddie Marshall MD HEALTH MAINTENANCE Final Result * (ABNORMAL) Hepatitis Panel, General (11/18/2022 2:07 PM EDT) Hepatitis A Antibody Total REACTIVE( A) NON-REACT NAHID [facility] [place] [facility] Comment: For additional information, please refer to [email or web address].MAYKOR/faq/RZS992 (This link is being provided for informational/ educational purposes only.) Hepatitis B Surface Antibody QL NON-REACT NAHID NON-REACT NAHID [facility] [place] [facility] Hepatitis B Surface Ag NON-REACT NAHID NON-REACT NAHID True [facility] [place] [facility] [employer] Hepatitis B Core Antibody Total NON-REACT NAHID NON-REACT NAHID True Office [place] [employer] Hepatitis C Antibody NON-REACT NAHID NON-REACT NAHID True [facility] [place] [facility] [employer] Index 0.07 <1.00 [facility] [place] [facility] Comment: HCV antibody was non-reactive. There is no laboratory evidence of HCV infection. In most cases, no further action is required. However, if recent HCV exposure is suspected, a test for HCV RNA (test code 40011) is suggested. For additional information please refer to http://Pictarine.MAYKOR/faq/XMT71t0 (This link is being provided for informational/ educational purposes only.) 11/18/2022 2:07 PM EDT 11/18/2022 2:09 PM EDT Narrative [facility] - 11/19/2022 6:51 AM EDT COLLECTION KIT GIVEN TO PATIENT. PATIENT ADVISED TO RETURN. Mckenzie Pillai [facility] BLOOD ORDERABLES Final Res ult [facility] [address] [place] [phone] [email or web address] [address] [place] [phone] from Last 3 Months or Most Recently Relevant to Health Maintenance Insurance [place] [phone] Care Teams Data Deliverables Manager Relationship Specialty Start Date End Date Name, MD Eddie [address] [place] [phone] PCP - General Family Medicine 09/16/15 Jerica [facility] 07/01/24
== END 2025-02-10 11:31 | disposition home or self-care (01) ==
LOC: HO.HCS 10:28
PROVIDERS: PCP Internal Medicine Geriatric Medicine; Visit Provider Internal Medicine Cardiovascular Disease
DX: I20.89 Other forms of angina pectoris (principal)
CPT/HCPCS: 99213

== ENCOUNTER → 2025-02-10 10:26 | Outpatient (BNVA) | payer MEDICARE, SELFPAY | PROVIDERS: PCP Internal Medicine Geriatric Medicine; Visit Provider Internal Medicine Cardiovascular Disease | DX: I25.118 Atherosclerotic heart disease of native coronary artery with other forms of angina pectoris (principal) | CPT/HCPCS: 99212 ==

== ENCOUNTER 2025-02-18 10:11 | Outpatient (REF) | payer MEDICARE, SELFPAY ==
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
--- OUTSIDE RECORDS SUMMARY | 2025-02-18 11:38 | XMS_ITS | Encounter Summary ---
Author Organization [employer] Address [address] [place] [address] [place] [address] Care Team Providers Care Personal Banking Officer Name Role Phone Name, Eddie GILMORE Primary Care Provider [phone] Reason for Visit * Reason Onset Date Comments Hospital Follow-up 11/10/2022 Encounter Details Date Type Department Care Team (Late st Contact Info) Description 11/10/2022 Refill [facility] [address] [place] [address] [phone] Name, MD Eddie [address] [place] [address] Social History Tobacco Use Types Packs/Day Years [...] - 11/22/2022 11:10 AM EDT T/C to [phone] to schedule HDF apt. No answer. LVM to call back on [phone]. ----- Message from Amber Roger RN sent [...] Description 02/19/2025 11:15 AM EDT Office Visit [facility] [address] [place] [phone] Name, MD Eddie [address] [place] [phone] 04/25/2025 9:30 AM EST Telemedicine [address] [phone] 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, JULY documented as of this encounter Visit Diagnoses Not on filedocumented in this encounter Care Teams Personal Banking Officer Relationship Specialty Start Date End Date NameEddie MD [address] [place] [phone] PCP - General Family Medicine 09/16/15 Jerica SEN 07/01/24 documented as of this encounter
--- OUTSIDE RECORDS SUMMARY | 2025-02-18 11:38 | XMS_ITS | Encounter Summary ---
Author Organization [employer] Address [address] [place] [address] 7 [place] [address] Care Team Providers Care Renewals Specialist Name Role Phone Name, Eddie GILMORE Primary Care Provider [phone] Encounter Details Date Type Department Care Team ([facility] Contact Info) Description 11/18/2022 Abstract [facility] [address] [place] [address] [phone] NameEddie MD [address] [place] [address] [phone] Social History Tobacco Use Types Packs/Day Years [...] Team ([facility] Contact Info) Description 02/19/2025 11:15 AM EDT Office Visit [address] [address] NameEddie MD [address] [place] [address] [phone] 04/25/2025 9:30 AM EST Telemedicine [facility] [address] [place] [address] 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, JULY documented as of this encounter Visit Diagnoses Not on filedocumented in this encounter Care Teams Renewals Specialist Relationship Specialty Start Date End Date Name, MD Eddie [address] [place] [address] PCP - General Family Medicine 09/16/15 [facility] 07/01/24 documented as of this encounter
--- OUTSIDE RECORDS SUMMARY | 2025-02-18 11:38 | XMS_ITS | Encounter Summary ---
Author Organization [employer] Address [address] [place] [address] 7 [place] [address] Care Team Providers Care Weapons Engineer Name Role Phone Name, Eddie GILMORE Primary Care Provider [phone] Reason for Visit * Reason Onset Date Comments Med Refill 12/11/2024 Encounter Details Date Type Department Care Team ([facility] st Contact Info) Description 12/11/2024 Telephone [facility] [address] [place], [place] [phone] Name, MD Eddie [address] [place] [address] Med Refill Social History Tobacco Use Types [...] Telephone Encounter - Marisol Lobo LPN - 12/11/2024 12:15 PM EDT Medications needing refills and prescribed by PCP pended. * Telephone Encounter - Abelino Vásquez - 12/11/2024 11:51 AM EDT TC from pt requesting medication refill. Medications needing refill: cholecalciferol (Vitamin D-3) 50 MCG (1999 UT) tablet famotidine (Pepcid) 40 MG tablet glucose blood (OneTouch Verio) test strip Lancets (OneTouch Delica Plus [id number]) [facility] levothyroxine (Synthroid, Levoxyl) 112 MCG tablet magnesium oxide 500 MG tablet melatonin 5 MG tablet traZODone (Desyrel) 50 MG tablet To be sent to: [facility] [address] [place] [address] - [address] [place] [address] documented in this encounter Plan of Treatment Upcoming Encounters Date Type Department Care Team ([facility] st Contact Info) Description 02/19/2025 11:15 AM EDT Office Visit [facility] [address] [place] [phone] Name, [place] [address] 04/25/2025 9:30 AM EST Telemedicine [facility] [address] [place] [address] 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, RN documented as of this encounter Visit Diagnoses Not on filedocumented in this encounter Additional Health Concerns Assessment Noted Time PHQ-9 Depression Total Score: 9 05/10/20 24 11:56 AM EST documented as of this encounter Care Teams Weapons Engineer Relationship Specialty Start Date End Date Name, [place] [address] PCP - General Family Medicine 09/16/15 Jerica [facility] 07/01/24 documented as of this encounter
--- OUTSIDE RECORDS SUMMARY | 2025-02-18 11:38 | XMS_ITS | Encounter Summary ---
Author Organization [employer] Address [address] [place] [address] 7 [place] [address] Care Team Providers Care Outside Laborer Name Role Phone Name, Eddie GILMORE Primary Care Provider [phone] Reason for Visit * Reason Onset Date Comments Active Med List 06/28/2023 Encounter Details Date Type Department Care Team ([facility] st Contact Info) Description 06/28/2023 Telephone [facility] [address] [place], [place] [phone] Name, MD Eddie [address] [place] [address] Active Med List Social History Tobacco Use [...] Be requesting a updated active medication list keno writer / runner did attempt to transfer to Medical records so that she can obtain this information but they kept transferring back to the call center. [facility] [address], [place], [place] [phone] documented in this encounter Plan of Treatment Upcoming Encounters Date Type Department Care Team (Late st Contact Info) Description 02/19/2025 11:15 AM EDT Office Visit [facility] [address] [place] [phone] Name, MD Eddie [address] [place] [phone] 04/25/2025 9:30 AM EST Telemedicine [facility] [address] [place] [phone] 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, RN documented as of this encounter Visit Diagnoses Not on filedocumented in this encounter Additional Health Concerns Assessment Noted Time PHQ-9 Depression Total Score: 10 023 1:16 PM EDT documented as of this encounter Care Teams Outside Laborer Relationship Specialty Start Date End Date Name, MD Eddie [address] [facility] [place] [address] PCP - General Family Medicine 09/16/15 Jerica SEN 07/01/24 documented as of this encounter
--- OUTSIDE RECORDS SUMMARY | 2025-02-18 11:38 | XMS_ITS | Clinical Summary ---
Author Organization [employer] Address [address] [place] [address] 7t [place] [address] Care Team Providers Care Crm Administrator Name Role Phone Name, Eddie GILMORE Primary Care Provider [phone] Allergies Active Allergy Reactions Criticality Noted Date [...] 06/01/20 22 Active Blood Glucose Monitoring Suppl ([employer] Verio Flex System) w/Device kit USE DIRECTED [...] 90 tablet 2 12/12/19 25 Active Lancets (Border StyloTouch Delica Plus [id number]) miscIndication s:Controlled type 2 diabetes mellitus with complication, without long-term current use of insulin ([facility]) USE TO CHECK BLOOD SUGAR TWICE A DAY 100 each 5 12/12/19 25 Active famotidine (Pepcid) 40 MG tablet TAKE 1 TABLET BY MOUTH EVERY DAY 90 tablet 2 12/12/19 25 Active glucose blood ([employer]Touch Verio) test stripIndicatio ns:Controlled type 2 diabetes mellitus with complication, without long-term current use of insulin ([facility]) USE TO CHECK BLOOD SUGAR TWICE [...] refer stat to ENT for cauterization, possible SILO WORKER scope Recommend anterior nasal packing if she is bleeding heavily longterm (current) use of opiate analgesic 03/20 Overview (02/11/2025): Dx: chronic pain syndrome/back pain Rx: Percocet 5/325 every 8 hours Last ENVIRONMENTAL LAWYER agreement:02/11/25 Tier II (visit every 3 months) Additional considerations: mobility issues, using scooter Assessment & Plan (02/11/2025 1:39 PM EDT): Timeline: - 09/10/24: Group visit utox/pill count wnl - 11/12/24: Group visit utox/pill count wnl - 02/11/25: Group visit utox as expected, forgot pills (but reported count as 41, which was as expected) Assessment & Plan (11/12/2024 1:58 PM EDT): Timeline: - 09/10/24: Group visit utox/pill count wnl - 11/12/24: Group visit utox/pill count wnl Assessment & Plan (09/10/2024 2:22 PM EDT): Timeline: - 09/10/24: Group visit utox/pill count wnl Chronic pain syndrome 03/05/2024 Assessment & Plan (02/11/2025 1:39 PM EDT): - Good participation in group medical visit setting - Utox as expected. 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 She understands this is the [...] Encounters Date Type Department Care Team Description 02/11/2025 9:45 AM EDT Office Visit [facility] [address] [place] [address] Mckenzie Trent FNP Chronic pain syndrome (Primary Dx); longterm (current) use of opiate analgesic 02/11/2025 Travel 02/04/2025 Refill [facility] [address] [place] [address] Eddie Marshall MD 01/31/2025 Refill [facility] [address] [place] [address] Eddie Marshall MD 01/27/2025 Orders Only GENERIC EXTERNAL DATA DEPARTMENT Provider, Generic External Data 01/27/2025 Refill [facility] [address] [place] [address] Eddie Marshall MD Chronic pain syndrome 01/09/2025 Orders Only [facility] External Provider, [facility] 01/03/2025 Refill [facility] [address] [place] [address] Eddie Marshall MD 12/30/2024 Telephone [facility] [address] [place] [address] 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, JULY Recommend ENVIRONMENTAL LAWYER Tele Tier 2 12/30/2024 Refill [facility] [address] [place] [address] Eddie Marshall MD Chronic pain syndrome 12/16/2024 Telephone [facility] [address] [place] [address] NameEddie MD Medication Question 12/16/2024 Refill [facility] [address] [place] [address] Eddie Marshall MD Hypothyroidism, unspecified type 12/11/2024 Telephone [facility] [address] [place] [address] Eddie Marshall MD Medication Question 12/11/2024 Telephone [facility] [address] [place] [address] Eddie Marshall MD Med Refill 12/11/2024 Refill [facility] [address] [place] [address] Eddie Marshall MD Controlled type 2 diabetes mellitus with complication, without long-term current use of insulin ([facility]) 12/02/2024 Refill [facility] [address] [place] [address] Eddie Marshall MD Hypothyroidism, unspecified type 12/02/2024 Refill [facility] [address] [place] [address] Eddie Marshall MD Chronic pain syndrome 11/27/2024 Refill [facility] [address] [place] [address] Eddie Marshall MD 11/25/2024 Orders Only GENERIC EXTERNAL DATA DEPARTMENT Provider, Generic External Data from Last 3 Months Immunizations Immunization Administration Dates Next Due Influenza injectable quadriv alent IIV4 with preservative 04/07/2016 Influenza, IIV3, injectable 03/23/2015,1 ,03/08/2013,04/06,05/01/2008,04/19/2007,05/10/2006 ,03/15/2005 Novel [id number], preservative-free 05/22/2009 Pneumococcal Polysaccharide PPSV23 07/11/2013, TD [...] Description 02/19/2025 11:15 AM EDT Office Visit [facility] [address] [place] [address] Name, MD Eddie [address] [place] [address] 04/25/2025 9:30 AM EST Telemedicine [address] [phone] 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, JULY Health Maintenance Due Date Last Done Comments [...] 02/11/2025 10:44 AM EDT Chronic pain syndrome VITAMIN D,25-OH,TOTAL,IA Routine 01/27/2025 10:25 AM EDT CALCIUM, 24 HOUR URINE (W/ CREATININE) Routine 01/27/2025 7:30 AM EDT SODIUM, 24-HOUR URINE WITH CREATININE Routine 01/27/2025 7:30 AM EDT CREATININE, 24 HR GROUP Routine 01/27/2025 7:[address] CHEST WO CONTRAST Routine 01/09/2025 1:24 PM EDT PHOSPHATE ( PHOSPHORUS) Routine 11/25/2024 2:08 PM EDT POCT GLYCATED HEMOGLOBIN, TOTAL Routine 10/29/2024 2:29 PM EDT Controlled type 2 diabetes mellitus with complication, without long-term current use of insulin ([facility]) LIPID PANEL, STANDARD Routine 01/16/2024 9:40 AM [...] to Health Maintenance Results * (ABNORMAL) POCT ADRIAN-14 Urine Drug [...] - 02/11/2025 10:44 AM EDT .UTOX cup Lot#[id number] Exp. 03/25/26 Internal Pass Control Mckenzie RODRIGUEZ POINT OF CARE TEST ENTER/EDIT ORDERABLES Final Result * Vitamin D, 25-Hydroxy, Total, Immunoassay (01/27/2025 10:25 AM EDT) Vitamin D 25-OH Total 73.8 >30 ng/mL [facility] Comment: Health Based Reference Values*< 20 ng/mL Onvzdjpkx52-27 ng/mL Insufficient> 30 ng/mL Sufficient*Judy REDDY. N [...] Provider LAB BLOOD ORDERAB LES Final Result [facility] [address] [place] [phone] * (ABNORMAL) Sodium, 24-Hour Urine with Creatinine (01/27/2025 7:30 AM EDT) Sodium, 24 Hour Urine 62.3 40 - 220 mmol/Day [facility] Creatinine, 24 Hour Urine 0.6(L) 1.0 - 2.0 G/Day [facility] Creatinine, Urine 54.30 [facility] Urine Total Volume 24 Hour 1,175 mL [facility] 01/27/2025 7:30 AM EDT 01/27/2025 12:46 PM EDT us Generic External Data Provider LAB URINE ORDERAB LES Final Result Performing Organization Address [facility] Co de Phone Number [facility] [address] [place] [phone] * (ABNORMAL) CREATININE, 24 HR GROUP (01/27/2025 7:30 AM EDT) Creatinine, 24 Hour Urine 0.6(L) 1.0 - 2.0 G/Day [facility] Creatinine, Urine 53.89 [facility] Urine Total Volume 24 Hour 1,175 mL [facility] 01/27/2025 7:30 AM EDT 01/27/2025 12:41 PM EDT Narrative [facility] - 01/27/2025 2:25 PM EDT [id number] Generic External Data Provider LAB URINE ORDERAB LES Final Result Performing Organization Address [facility] de Phone Number [facility] [address] [place] [phone] * (ABNORMAL) Calcium, 24 Hour Urine W/ Creatinine (01/27/2025 7:30 AM EDT) Calcium, 24 Hour Urine 435(A) mg/24 h [facility] Comment:Reference Range 35-2 50 Low calcium diet 35-200 Calcium/Creatini ne Ratio 673(A) 30 - 275 mg/g creat [facility] Creatinine, 24 Hour Urine 0.65 0.50 - 2.15 g/24 h [facility] Comment:THIS TEST WAS PERFOR MED AT:[employer] [place] [phone] PAYNE MD 01/27/2025 7:30 AM EDT 01/27/2025 12:46 PM EDT us Generic External Data Provider LAB URINE ORDERAB LES Final Result Performing Organization Address [facility]/State/ZIP Co de Phone Number [facility] [address] [place] [phone] * CT Chest w/o Contrast (01/09/2025 1:24 PM EDT) Anatomical Region Laterality Modality Body, Chest Computed Tomogra phy 01/09/2025 1:24 PM EDT Narrative 01/09/2025 2:14 PM EDT [address] [address] [address] Scan Report Signed Patient: Celeste Abad MR#: [id number] 4 : 1945 Acct:[id number] Age/Sex: 79 / F ADM Date: 01/09/25 Loc: HO.CT Attending Dr: Maria Esther Blum NP Ordering Physician: Maria Esther Blum NP Date of Service: 01/09/25 Procedure(s): CT chest wo IV con Accession Number(s): [id number] cc: Eddie Marshall MD; Maria Esther Blum NP Report Number: [id number]: Total DLP = 219.00 mGy-cm EXAMINATION: CT [...] 01/09/25 1411 DD/ 1324 TD/TT: 01/09/25 1338 Trimmer Machine Operator: Procedure Note Donotuseinterpreter, Image - 01/09/[address] [address] [address] Scan Report Signed Patient: Celeste AbadMR#: [id number] 4 : 1945cct:[id number] Age/Sex: 79 / FADM Date: 01/09/25 Loc: HO.CT Attending Dr: Maria Esther Blum NP Ordering Physician: Maria Esther Blum NP Date of Service: 01/09/25 Procedure(s): CT chest wo IV con Accession Number(s): [id number] cc: Name,Eddie GILMORE; Maria Esther Blum NP Report Number: [id number]: Total DLP = 219.00 mGy-cm EXAMINATION: CT [...] 01/09/25 1411 DD/ 1324 TD/TT: 01/09/25 1338 Trimmer Machine Operator: [facility] External Provider IMG CT PROCEDURES Edited Result - Final * Phosphate (As Phosphorus) (11/25/2024 2:08 PM EDT) Phosphorus 4.3 2.7 - 4.5 mg/dL [facility] 11/25/2024 2:08 PM EDT 11/25/2024 2:08 PM EDT Generic External Data Provider LAB BLOOD ORDERAB LES Final Result [facility] [address] [place] [phone] * POCT HGB A1C (10/29/2024 2:29 [...] to 5OO mg/dL Cholesterol 150 <200 mg/dL [facility] Comment:Desirable Cholestero l: less than 200 mg/dLBorderline High Cholesterol: 200-239 mg/dLHigh Cholesterol: greater than 239 mg/dL LDL Cholesterol Calculated 63 <100 mg/dL [facility] Comment:Desirable LDL: less than 100 mg/dLNear Optimal/Above Optimal LDL: 110- 129 mg/dLBorderline High LDL: 130-159 mg/dLHigh LDL: 160-189 mg/dLVery High LDL: greater than or equal to 190 mg/dL HDL Cholesterol 48 >40 mg/dL [facility] Comment:Desirable HDL: great er than 40 mg/dL Note: This HDL assay may give artificially low results in patients with liver disease. Blood Venous blood specimen / Unknown 01/16/2024 9:40 AM EDT 01/16/2024 11:20 AM EDT us Eddie Marshall MD LAB BLOOD ORDERABLES Final Resul t [facility] [address] [place] [phone] * Albumin, Random Urine W/Creatinine (01/16/2024 9:35 AM EDT) Creatinine, Urine 27.62 mg/dL [facility] Microalbumin Urine <5.0 mg/L [facility] Microalbum Creatinine Ratio Ur TNP <30 ug/mg cr [facility] Comment:Unable to calculate albumin/creatinine ratio due to lowmicroalbumin or creatinine result. Urine (Urine, Random) 01/16/2024 9:35 AM EDT 01/16/2024 11:12 AM EDT us Eddie Marshall MD LAB URINE ORDERABLES Final Resul t [facility] [address] [place] [phone] * Hm Diabetes Eye Exam (05/16/2023) Eye Exam Normal Normal us Eddie Marshall MD HEALTH MAINTENANCE Final Result * (ABNORMAL) Hepatitis Panel, General (11/18/2022 2:07 PM EDT) Hepatitis A Antibody Total REACTIVE( A) NON-REACT [employer] Comment: For additional information, please refer to http://uSamp.QRcao/faq/FSC361 (This link is being provided for informational/ educational purposes only.) Hepatitis B Surface Antibody QL NON-REACT NAHID NON-REACT [employer] Hepatitis B Surface Ag NON-REACT NAHID NON-REACT NAHID [employer] Hepatitis B Core Antibody Total NON-REACT NAHID NON-REACT [employer] Hepatitis C Antibody NON-REACT NAHID NON-REACT [employer] Index 0.07 <1.00 [employer] Comment: HCV antibody was non-reactive. There is no laboratory evidence of HCV infection. In most cases, no further action is required. However, if recent HCV exposure is suspected, a test for HCV RNA (test code 18093) is suggested. For additional information please refer to http://education.Tweetflow.UrbanFarmers/faq/YMR76m2 (This link is being provided for informational/ educational purposes only.) 11/18/2022 2:07 PM EDT 11/18/2022 2:09 PM EDT Narrative [facility] - 11/19/2022 6:51 AM EDT COLLECTION KIT GIVEN TO PATIENT. PATIENT ADVISED TO RETURN. Mckenzie Pillai LEAD ASSEMBLER LAB BLOOD ORDERABLES Final Res ult [facility] [address], [place] [address] [facility] [address] [place] [phone] from Last 3 Months or Most Recently Relevant to Health Maintenance Insurance [employer] [id number] Care Teams Crm Administrator Relationship Specialty Start Date End Date Name, MD Eddie [address] [place] [phone] PCP - General Family Medicine 09/16/15 [place] [facility] 07/01/24
--- OUTSIDE RECORDS SUMMARY | 2025-02-18 11:39 | XMS_ITS | Encounter Summary ---
Author Organization [employer] Address [address] [place] [address] 7 [place] [address] Care Team Providers Care Beaming Inspector Name Role Phone Name, Eddie GILMORE Primary Care Provider [phone] Reason for Visit * Reason Comments Med Refill Encounter Details Date Type Department Care Team ([facility] st Contact Info) Description 05/08/2023 Refill [facility] [address] [place], [place] [phone] Name, MD Eddie [address] [place] [address] Chronic pain syndrome Social History Tobacco Use [...] Description 02/19/2025 11:15 AM EDT Office Visit [facility] [address] [place] [phone] Name, MD Eddie [address] [place] [address] 04/25/2025 9:30 AM EST Telemedicine [facility] [address] [place] [address] 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, JULY documented as of this encounter Visit Diagnoses Diagnosis Chronic pain syndrome documented in this encounter Additional Health Concerns Assessment Noted Time PHQ-9 Depression Total Score: 10 023 1:16 PM EDT documented as of this encounter Care Teams Beaming Inspector Relationship Specialty Start Date End Date Eddie Marshall MD [address] [place] [phone] PCP - General Family Medicine 09/16/15 [place] [facility] 07/01/24 documented as of this encounter
--- OUTSIDE RECORDS SUMMARY | 2025-02-18 11:39 | XMS_ITS | Encounter Summary ---
Author Organization [employer] Address [address] [place] [address] [place] [address] Care Team Providers Care Landmen Name Role Phone Name, Eddie GILMORE Primary Care Provider [phone] Reason for Visit * Reason Comments Med Refill Encounter Details Date Type Department Care Team (Late st Contact Info) Description 01/29/2023 Refill [facility] [address] [place] [address] [phone] Farhana Singh FNP Social History Tobacco Use Types Packs/Day Years [...] Description 02/19/2025 11:15 AM EDT Office Visit [facility] [address] [place] [address] [phone] Name, MD Eddie [address] [place] [phone] 04/25/2025 9:30 AM EST Telemedicine [facility] [address] [place] [address] [phone] Yaneth, Kaleigh, RN documented as of this encounter Visit Diagnoses Not on filedocumented in this encounter Additional Health Concerns Assessment Noted Time PHQ-9 Depression Total Score: 10 023 1:16 PM EDT documented as of this encounter Care Teams Landmen Relationship Specialty Start Date End Date Name, MD Eddie [address] [place] [address] PCP - General Family Medicine [facility]/16/[facility] documented as of this encounter
--- OUTSIDE RECORDS SUMMARY | 2025-02-18 11:39 | XMS_ITS | Encounter Summary ---
Author Organization [employer] Address [address] [place] [address] 7 [place] [address] Care Team Providers Care Firer Electric Locomotive Name Role Phone Name, Eddie GILMORE Primary Care Provider [phone] Reason for Visit * Reason Comments Med Refill Encounter Details Date Type Department Care Team ([facility] st Contact Info) Description 06/18/2023 Refill [facility] [address] [place], [place] [phone] Name, MD Eddie [address] [place] [address] Chronic pain syndrome Social History Tobacco Use [...] Description 02/19/2025 11:15 AM EDT Office Visit [facility] [address] [place] [phone] Name, MD Eddie [address] [place] [address] 04/25/2025 9:30 AM EST Telemedicine [facility] [address] [place] [address] 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, JULY documented as of this encounter Visit Diagnoses Diagnosis Chronic pain syndrome documented in this encounter Additional Health Concerns Assessment Noted Time PHQ-9 Depression Total Score: 10 023 1:16 PM EDT documented as of this encounter Care Teams Firer Electric Locomotive Relationship Specialty Start Date End Date Eddie Marshall MD [address] [place] [phone] PCP - General Family Medicine 09/16/15 [place] [facility] 07/01/24 documented as of this encounter
--- OUTSIDE RECORDS SUMMARY | 2025-02-18 11:39 | XMS_ITS | Encounter Summary ---
Author Organization [employer] Address [address] [place] [address] 7 [place] [address] Care Team Providers Care Clinical Psychologist Licensed Name Role Phone Name, Eddie GILMORE Primary Care Provider [phone] Reason for Visit * Reason Onset Date Comments Referral 02/02/2023 Back dated refer ral Encounter Details Date Type Department Care Team ([facility] st Contact Info) Description 02/02/2023 Telephone [facility] [address] [place], [place] [phone] Name, MD Eddie [address] [place] [address] Referral (Back dated referral ) Social History [...] 1:40 PM EDT Tc from Kasie at [facility] requesting status on message below regarding referral. Fax number [phone]. Any questions please call [phone] * Telephone Encounter - Amber Roger RN - 02/03/2023 10:34 AM EDT Please review message below regarding backdated referral for these dates * Telephone Encounter - Laure Mcgill - 02/02/2023 2:07 PM EDT Tc from Kasie at [facility] calling in regards to referral needing to be back dated. Patient was seen at the office on 01/03/23 and 01/11/23. Fax number [phone]. Any questions please call [phone]. documented in this encounter Plan of Treatment Upcoming Encounters Date Type Department Care Team (Late st Contact Info) Description 02/19/2025 11:15 AM EDT Office Visit [facility] [address] [place] [phone] Name, MD Eddie [address] [place] [address] 04/25/2025 9:30 AM EST Telemedicine [address] [address] Kaleigh Wofle, JULY documented as of this encounter Visit Diagnoses Not on filedocumented in this encounter Additional Health Concerns Assessment Noted Time PHQ-9 Depression Total Score: 10 023 1:16 PM EDT documented as of this encounter Care Teams Clinical Psychologist Licensed Relationship Specialty Start Date End Date Name, MD Eddie [address] [place] [phone] PCP - General Family Medicine 09/16/15 [place] [facility] 07/01/24 documented as of this encounter
--- OUTSIDE RECORDS SUMMARY | 2025-02-18 11:39 | XMS_ITS | Encounter Summary ---
Author Organization [employer] Address [address] [place] [address] 7 [place] [address] Care Team Providers Care Security Team Lead Name Role Phone Name, Eddie GILMORE Primary Care Provider [phone] Reason for Visit * Reason Onset Date Comments ER Follow-up 09/27/2024 Encounter Details Date Type Department Care Team ([facility] st Contact Info) Description 09/27/[address] [facility] [address] [place], [place] [phone] Name, MD Eddie [address] [place] [address] ER Follow-up Social History Tobacco Use Types [...] ED visit on : Date: 09/26/24 Hospital: [facility] Seen for: Nose bleeds Symptomatic yes . [...] Description 02/19/2025 11:15 AM EDT Office Visit [facility] [address] [place] [phone] Name, MD Eddie [address] [place] [address] 04/25/2025 9:30 AM EST Telemedicine [facility] [address] [place] [address] 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, RN documented as of this encounter Visit Diagnoses Not on filedocumented in this encounter Additional Health Concerns Assessment Noted Time PHQ-9 Depression Total Score: 9 05/10/20 24 11:56 AM EST documented as of this encounter Care Teams Security Team Lead Relationship Specialty Start Date End Date Name, MD Eddie [address] [facility] [address] PCP - General Family Medicine 09/16/15 [place] [facility] 07/01/24 documented as of this encounter
--- OUTSIDE RECORDS SUMMARY | 2025-02-18 11:39 | XMS_ITS | Encounter Summary ---
Author Organization [employer] Address [address] [place] [address] 7 [place] [address] Care Team Providers Care Line Up Machine Operator Name Role Phone Name, Eddie GILMORE Primary Care Provider [phone] Reason for Visit * Reason Comments Med Refill Encounter Details Date Type Department Care Team (Late Contact Info) Description 01/04/2023 Refill [facility] [address] [place] [phone] Name, MD Eddie [address] [place] [address] Gastroesophageal reflux disease, unspecified whether esophagitis present [...] Department Care Team (Late Contact Info) Description 02/19/2025 11:15 AM EDT Office Visit [facility] [address] [place] [phone] Name, [place] [address] 04/25/2025 9:30 AM EST Telemedicine [address] [address] 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 RN documented as of this encounter Visit Diagnoses Diagnosis Gastroesophageal reflux disease, unspecified whether esophagitis present documented in this encounter Additional Health Concerns Assessment Noted Time PHQ-9 Depression Total Score: 10 023 1:16 PM EDT documented as of this encounter Care Teams Line Up Machine Operator Relationship Specialty Start Date End Date Name, MD Eddie [facility] [place] [address] PCP - General Family Medicine 09/16/15 [place] [facility] 07/01/24 documented as of this encounter
--- OUTSIDE RECORDS SUMMARY | 2025-02-18 11:39 | XMS_ITS | Encounter Summary ---
Author Organization [employer] Address [address] [place] [address] 7 [place] [address] Care Team Providers Care Telecommunications Repairer Name Role Phone Name, Eddie GILMORE Primary Care Provider [phone] Reason for Visit * Reason Onset Date Comments Medication Question 09/05/2023 Encounter Details Date Type Department Care Team ([facility] st Contact Info) Description 09/05/2023 Telephone [facility] [address] [place], [place] [phone] Name, MD Eddie [address] [place] [address] Medication Question Social History Tobacco Use Types [...] 11:15 AM EDT Office Visit [facility] [address] [place] [phone] Name, MD Eddie [address] [place] [phone] 04/25/2025 9:30 AM EST Telemedicine [facility] [address] [place] [phone] 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 RN documented as of this encounter Visit Diagnoses Not on filedocumented in this encounter Additional Health Concerns Assessment Noted Time PHQ-9 Depression Total Score: 10 023 1:16 PM EDT documented as of this encounter Care Teams Telecommunications Repairer Relationship Specialty Start Date End Date Name, MD Eddie [address] [facility] [place] [address] PCP - General Family Medicine 09/16/15 [place] SEN 07/01/24 documented as of this encounter
--- OUTSIDE RECORDS SUMMARY | 2025-02-18 11:39 | XMS_ITS | Encounter Summary ---
Author Organization [employer] Address [address] [place] [address] [place] [address] Care Team Providers Care Parlor Maid Name Role Phone Name, Eddie GILMORE Primary Care Provider [phone] Reason for Visit * Reason Comments Med Refill Encounter Details Date Type Department Care Team (Late Contact Info) Description 02/26/2023 Refill [facility] [address] [place] [address] [phone] NameEddie MD [address] [place] [address] [phone] Chronic pain syndrome Social History Tobacco Use [...] 11:15 AM EDT Office Visit [facility] [address] [place] [address] [phone] NameEddie MD [address] [place] [address] [phone] 04/25/2025 9:30 AM EST Telemedicine [facility] [address] [place] [address] 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, RN documented as of this encounter Visit Diagnoses Diagnosis Chronic pain syndrome documented in this encounter Additional Health Concerns Assessment Noted Time PHQ-9 Depression Total Score: 10 023 1:16 PM EDT documented as of this encounter Care Teams Parlor Maid Relationship Specialty Start Date End Date Name, MD Eddie [address] [place] [place] [address] PCP - General Family Medicine 09/16/15 [place] A 07/01/24 documented as of this encounter
--- OUTSIDE RECORDS SUMMARY | 2025-02-18 11:39 | XMS_ITS | Encounter Summary ---
Author Organization [employer] Address [address] [place] [address] 7 [place] [address] Care Team Providers Care Track Repairer Name Role Phone Name, Eddie GILMORE Primary Care Provider Reason for Visit * Reason Comments Med Refill Encounter Details Date Type Department Care Team (Late Contact Info) Description 12/01/2022 Refill [facility] [address] [place], [place] [phone] Name, MD Eddie [address] [place] [address] Controlled type 2 diabetes mellitus with complication, without long-term current use of insulin ([facility]) Social History Tobacco Use Types [...] Description 02/19/2025 11:15 AM EDT Office Visit [facility] [address] [place] [phone] Name, [place] [address] 04/25/2025 9:30 AM EST Telemedicine [address] [address] 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 RN documented as of this encounter Visit Diagnoses Diagnosis Controlled type 2 diabetes mellitus with complication, without long-term current use of insulin ([facility]) documented in this encounter Additional Health Concerns Assessment Noted Time PHQ-9 Depression Total Score: 10 023 1:16 PM EDT documented as of this encounter Care Teams Track Repairer Relationship Specialty Start Date End Date Name, [place] [address] PCP - General Family Medicine 09/16/15 [place] BURGOSA 07/01/24 documented as of this encounter
--- OUTSIDE RECORDS SUMMARY | 2025-02-18 11:39 | XMS_ITS | Encounter Summary ---
Author Organization [employer] Address [address] [place] [address] 7 [place] [address] Care Team Providers Care Evaluation Assistant Name Role Phone Name, Eddie GILMORE Primary Care Provider [phone] Reason for Visit * Reason Onset Date Comments Medication Question 09/01/2023 Encounter Details Date Type Department Care Team ([facility] st Contact Info) Description 09/01/2023 Telephone [facility] [address] [place], [place] [phone] Name, MD Eddie [address] [place] [address] Medication Question Social History Tobacco Use Types [...] an add on. Please contact pharmacy at [phone]. documented in this encounter Plan of Treatment Upcoming Encounters Date Type Department Care Team (Late st Contact Info) Description 02/19/2025 11:15 AM EDT Office Visit [facility] [address] [place], [place] [address] [place] [address] Name, MD Eddie [facility] [place] [address] 04/25/2025 9:30 AM EST Telemedicine [facility] Felix [facility] [place] [address] 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 RN documented as of this encounter Visit Diagnoses Not on filedocumented in this encounter Additional Health Concerns Assessment Noted Time PHQ-9 Depression Total Score: 10 023 1:16 PM EDT documented as of this encounter Care Teams Evaluation Assistant Relationship Specialty Start Date End Date Name, MD Eddie Felix [facility] [place] [address] PCP - General Family Medicine 09/16/15 [place] A 07/01/24 documented as of this encounter
[2025-02-18 13:57] LABS: Anion Gap 15 (12-20); Blood Urea Nitrogen 21 mg/dL (9-16); Calcium 9.8 mg/dL (8.4-10.2); Carbon Dioxide 27 mmol/L (22-29); Chloride 92 mmol/L (96-108); Estimated Glomerular Filt Rate > 60; Potassium 4.6 mmol/L (3.3-5.1); Sodium 129 mmol/L (135-145)
== END 2025-02-18 10:12 | disposition home or self-care (01) ==
LOC: HO.10HDL 10:11
PROVIDERS: Visit Provider Internal Medicine Endocrinology, Diabetes & Metabolism
DX: M81.0 Age-related osteoporosis without current pathological fracture (principal)
CPT/HCPCS: 36415; 80048

== ENCOUNTER 2025-04-09 09:43 | Outpatient (AMB) | payer OTHER, SELFPAY ==
--- NOTE | 2025-04-09 10:05 | A.OFFVIS_ITS ---
Vital Signs 04/09/25 10:06 Height 5 ft 1 in Weight 144 lb 2 oz BMI 27.2 BP 130/68 Blood Pressure Location Rt brachial Position Sitting Pulse 78 Pulse Source Pulse Oximeter Pulse Oximetry (%) 96 Oxygen Delivery Method Room Air Intake Visit Reasons: Dyspnea Allergies Latex, Natural Rubber Allergy (Intermediate, Verified 04/09/25 10:12) Rash scallops Allergy (Unknown, Verified 04/09/25 10:12) Unknown HPI HPI Dyspnea: Details: Celeste is a pleasant 79 year old female, former 40+ pack year smoker, quit 20 years ago with underlying HTN, stable angina, CAD, seizures, h/o CVA x 3 and h/o TN x 3 s/p 3 stents. She is able to ambulate however uses a wheelchair for long distances and is accompanied by her son today. She continues to report suboptimal control with Advair, requiring nebulized therapy b.i.d. and occasionally albuterol MDI. She reports dyspnea with exertion as well as cough, unknown sputum color, although denies chest congestion fever or chills. She has upcoming sleep study and chest CT scheduled in the near future. She denies any visits to urgent care hospitalizations related to respiratory distress since last visit. [facility], [facility] Medical History Paraesophageal hernia Osteoporosis Lower GI bleed Rectal bleed Anemia Stable angina Essential hypertension CVA (cerebral vascular accident) CAD (coronary artery disease) Surgical History Status post cardiac catheterization History of cardiac cath History of adenoidectomy Hx of tonsillectomy Hx of hernia repair History of section History of cholecystectomy History of appendectomy Family History Mother Cancer Father Heart attack Social History Household Members: Children Housing: House Do you presently have visiting nurse or other home services: Yes Alcohol intake: never Patient Tobacco Use Status: Former Tobacco user Years Smoked: 30 +/- e-Cigarette/Vaping Use: Never Used Second Hand Smoke Exposure: No Substance Use Type: Marijuana service: No Current occupational status: retired Current occupation: right hand dominant Review of Systems Const Denies chills, Denies excessive sweating, Denies fever(s), Denies headache(s) and Denies night sweats Eyes Denies dry eyes, Denies irritation and Denies itchy eyes ENT Reports Normal hearing present, Denies headache(s), Denies nasal discharge, Denies post nasal drip and Denies sore throat Card Denies chest pain, Denies chest pain at rest, Denies chest pain with activity, Denies claudication, Denies leg edema, Reports dyspnea on exertion and Denies orthopnea Resp Denies change in phlegm color, Denies chest congestion, Reports cough, Denies hemoptysis, Denies excessive phlegm production, Denies pain on inspiration, Denies pain with cough, Reports dyspnea on exertion, Denies stridor and Denies wheezing Musc Denies myalgias Neuro Reports Normal hearing present and Denies headache(s) Endo Denies excessive sweating Miguel/Lymph Denies lymphadenopathy Aller/Immun Denies itchy eyes, Denies seasonal rhinorrhea and Denies wheezing Physical Exam Vital Signs: Last Vital Signs Pulse 78 04/09/25 10:06 BP 130/68 04/09/25 10:06 Pulse Ox 96 04/09/25 10:06 Oxygen Delivery Method Room Air 04/09/25 10:06 BMI result Body Mass Index 27.2 Const General: cooperative, healthy appearing, comfortable, no acute distress, well developed and alert Orientation/consciousness: patient oriented x3 Limitations: wheelchair HEENT Head: Yes normal to inspection, Yes normocephalic and Yes atraumatic Ears: hearing grossly normal bilaterally and external ears normal Eyes General: appearance normal, both eyes and all related structures Eyelids: Yes eyelids normal Sclerae: sclerae normal EOM: EOMs intact bilaterally Neck Neck: Yes normal visual inspection and Yes no lymphadenopathy Lymphatic: no lymphadenopathy noted Chest Chest palpation & inspection: normal inspection of the chest Resp Effort & Inspection: normal respiratory effort, able to speak in complete sentences, no audible wheezes, no cough, no stridor, not tachypneic, no tripod positioning and no use of accessory muscles Auscultation: clear to auscultation bilaterally Cardio Jugular venous distension: no JVD Rate: regular rate Rhythm: regular rhythm Skin Other: warm, dry General skin exam: no rashes or lesions noted Neuro General: patient oriented x3 Cranial nerves: Yes Normal hearing present Cognition (Neuro): normal cognition Extrem General: Yes normal to inspection, Yes capillary refill normal, Yes no clubbing, cyanosis or edema and Yes no pedal edema Psych Appearance: grossly normal and well kempt Speech and movement: Normal speech and movement present and Clear speech present Affect: normal affect Attitude: cooperative Thought process: Normal thought process present Thought content: Normal thought content present Insight: Good insight present (Psych) Judgement: Good judgement present (Psych) Assessment & Plan Assessment & Plan (1) COPD (chronic obstructive pulmonary disease): Code(s): J44.9 - Chronic obstructive pulmonary disease, unspecified Category: Medical (2) Emphysema of lung: Code(s): J43.9 - Emphysema, unspecified Category: Medical (3) Personal history of tobacco use: Code(s): Z87.891 - Personal history of nicotine dependence Category: Social Hx (4) Multiple pulmonary nodules: Code(s): R91.8 - Other nonspecific abnormal finding of lung field Category: Medical (5) Daytime somnolence: Code(s): R40.0 - Somnolence Category: Medical Plan At this time Celeste reports suboptimal control with Advair. Will add Incruse to regimen and refill albuterol nebulized solution. She is aware to call if symptoms do not improve. All questions were answered and patient is in agreement of plan. Will follow up to review upcoming chest CT and sleep study results or sooner if needed. Medications: New sodium chloride 3% 4 mL inhalation ONCE PRN 120 mL 3RF secretions umeclidinium 62.5 mcg/actuation (Incruse Ellipta) 1 inh inhalation DAILY 30 ea 3RF Refilled albuterol sulfate 2.5 mg (3 mL) inhalation Q4-6H PRN 180 mL 3RF for wheezing Coding Level of Care Code Est Pt Level 4 (25454) Diagnoses COPD (chronic obstructive pulmonary disease) J44.9 Emphysema of lung J43.9 Personal history of tobacco use Z87.891 Multiple pulmonary nodules R91.8 Daytime somnolence R40.0
[2025-04-09 10:06] VITALS: BP 130/68; PULSE 78; O2SAT 96; BMI 27.2
== END 2025-04-09 10:45 | disposition home or self-care (01) ==
LOC: HO.HPSW 09:43
PROVIDERS: PCP Internal Medicine Geriatric Medicine; Visit Provider Nurse Practitioner Family
DX: J44.9 Chronic obstructive pulmonary disease, unspecified (principal); J43.9 Emphysema, unspecified; Z87.891 Personal history of nicotine dependence; R91.8 Other nonspecific abnormal finding of lung field; R40.0 Somnolence
CPT/HCPCS: 99214

== ENCOUNTER → 2025-04-09 09:43 | Outpatient (BNVA) | payer OTHER, SELFPAY | PROVIDERS: PCP Internal Medicine Geriatric Medicine; Visit Provider Nurse Practitioner Family | DX: J43.9 Emphysema, unspecified (principal); R91.8 Other nonspecific abnormal finding of lung field; R40.0 Somnolence; Z87.891 Personal history of nicotine dependence | CPT/HCPCS: 99212 ==

== ENCOUNTER 2025-04-21 11:14 | Outpatient (AMB) | payer OTHER, SELFPAY ==
--- NOTE | 2025-04-21 11:30 | A.OFFVIS_ITS ---
Vital Signs 04/21/25 11:33 Height 5 ft 1 in Weight 147 lb BMI 27.8 BP 113/56 L Blood Pressure Location Lt brachial Position Sitting Pulse 86 Intake Visit Reasons: anemia follow up Intake Note: Celeste presents in the office as a follow up for anemia. CC: She states that she is having crampin and severe constipation. States miralax does not help her. Memory Care Director Required: No Allergies Latex, Natural Rubber Allergy (Intermediate, Verified 04/21/25 11:38) Rash scallops Allergy (Unknown, Verified 04/21/25 11:38) Unknown HPI Comments Details: This is a 77-year-old female with extensive coronary artery disease status post PCI May 2022, on dual anti-platelet therapy, hypertension, hyperlipidemia, who was recently admitted for severe anemia with GI consultation for GI bleed. Inpt consultation 11/20/22: History was obtained the patient, who states that she has been having intermittent abdominal pain with weakness, shortness of breath and lightheadedness for a few months now. Also reports an unintentional weight loss of > 10lbs in the last few months which she charts to diarrhea. In terms of the diarrhea, describes it as loose, watery occuring up to 5-6 times a day. Most recently has progressed in the last 2 weeks to the point that she is unable to step out of the home for more than a few minutes. Night time sx +. No blood in stool or melena. Specifically describes stool as yellow to brown. She was seen by her PCP for these sx on Monday who ordered blood work and she received a call Monday morning to go to the ER due to drop in H/H requiring blood transfusion. Last colo per her report was more than 5 years ago and was incomplete due to difficult sigmoid colon . She does not recall if she had a follow up barium enema or colonography. Son (Raymundo) at bedside also gives a hx of anemia a few years ago for which she was seen at [place] but states that pt was told she had internal bleeding and was discharged from the ER, does not recall if a GI work up was recommended at that time. On arrival to the emergency room, she was noted to be hemodynamically stable.? Labs were significant for acute drop in hemoglobin to 7.2, with mildly elevated leukocytosis and a narrow MCV of 72.6.? s/p 2U PRBC transfusion. She also underwent CT abdomen pelvis with IV contrast that does not show any acute findi ngs to explain the weight loss. 11/24/22 - EGD/colo: Impression: 1. Normal esophagus 2. Large Hill grade IV hiatal hernia 3. Normal stomach (biopsy) 4. Normal duodenum (biopsy) 5. Normal colon and terminal ileum mucosa 6. Diverticulosis 7. Internal hemorrhoids Path: A.? Duodenum, biopsy:? Duodenal mucosa within normal limits. B.? Stomach, random, biopsy:? Antral-type and oxyntic mucosa with mild chronic inactive inflammation; no Helicobacter organisms seen. 12/12/22: Pt comes in accompanied by her son for follow up post procedure. Of note, was recently informed by urgent care that stool study was positive for C Diff. On Vanc PO, has completed 5 days already. Otherwise, sx are unchanged: abd pain, bloating, diarrhea. Fatigue and shortness of breath better since improvement in anemia. Labs reviewed. CTE 01/16/23: Severe diverticulosis of the colon. Moderate size hiatal hernia. Small left renal stone. Areas of renal cortical thinning or scarring, left greater than right. 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 02/13/23: Currently no abd pain, N,V. Diarrhea resolved but comes and goes. Reports issues with fecal incontinence. Also sees UroGYN for urinary incontinence. Has been taking iron supplements daily. Pt also has been transitioned to plavix monotherapy from ASA+ brillinta. 07/31/23: Was seen by Carlotta Amador in the interim for question recurrent iron-deficiency anemia. Was advised to resume oral iron. However, patient reports that she has still not resumed the iron supplementation. She last to cut back in January. Labs reviewed, hemoglobin trending up, but ferritin is low at 18. 01/29/24: Seen in follow up. Reports improvement in abd cramping and frequent BMs by taking a gut supplement Christine. Has not had any incontinence either now. Main c/o is burning stinging pain on passing BMs and sometimes even when shes resting. No blood noted. DOes not strain or pass hard stools. Dillon 2022 with int hemorrhoids otherwise normal appearing anorectum. Pt also has nightly heartburn despite taking pantoprazole. Has also been raising the head of her bed at night without much improvement. 05/22/24: Here for follow up. Pt again in a time crunch due to how she scheduled her transport back. Was never able to get her med for anal fissure. Reports persistent constipation but when administered enema had burning and noticed a streak of blood. In addition, also has heartburn rosanna at night, with nausea and regurgitation. Goes to sleep within an hour of taking her last meal of the day. Has known large hiatal hernia. On protonix (nexium prescribed but developed diarrhea and hives). Taking this alongside pepcid. NO change in appetite, no unintentional weight loss. 08/26/24: Here for follow up. Barium swallow completed - confirms large hiatal hernia. Pt already referred to foregut surgery - seeing Dr Aragon next week. Barium swallow 08/19/24: 1. Laryngeal penetration with thick and thin consistency barium. No subglottic aspiration was observed. 2. Mild esophageal dysmotility. 3. Large paraesophageal hernia, with the majority the fundus located within the thoracic cavity. 4. Moderate gastroesophageal reflux. 5. Thickened appearance of the gastric rugal folds, suggestive gastritis. 6. Small diverticulum noted in the second segment of duodenum. 7. Status post cholecystectomy. Pt also reports x2 episodes of large volume epistaxis last month. Was seen in [place]. H/H dropped from 12.1 to 10.9 within 5 days. Wonders if she should go back on iron supplements. 10/14/24: Here for ER follow up. Was seen x 2 again for epistaxis. Now established with ENT as outpatient. Blood counts have understandably dropped. Unclear status of iron infusions since pt canceled those appts arranged by our office but is not sure if bariatrics office will coordinate. Secondly, was seen by cardiology and deemed a high risk surgical candidate. Agreeable to maximizing anti secretory therapy for now and would like to hold off referral for TIF. Of note- omeprazole, pantoprazole and carafate noted on her meds. Pt developed constipation with carafate and is not taking omeprazole. 04/21/25: Here for follow up. Reports main issue is severe constipation. Has 1-2 BMs per week despite taking miralax BID. Interested in escalating therapy. in terms of anemia, this was likely 2/2 frequent epistaxis. Has had these cauterized through ENT and takes epistaxis precautions at home. Other issue is persistent reflux and heartburn rosanna at night time. This is despite taking protonix BID. to recall has large paraesophageal hernia but not a surgical candidate due to cardiac risk factors. [facility] Medical History Paraesophageal hernia Osteoporosis Lower GI bleed Rectal bleed Anemia Stable angina Essential hypertension CVA (cerebral vascular accident) CAD (coronary artery disease) Surgical History Status post cardiac catheterization History of cardiac cath History of adenoidectomy Hx of tonsillectomy Hx of hernia repair History of section History of cholecystectomy History of appendectomy Family History Mother Cancer Father Heart attack Social History Household Members: Children Housing: House Do you presently have visiting nurse or other home services: Yes Alcohol intake: never Patient Tobacco Use Status: Former Tobacco user Years Smoked: 30 +/- e-Cigarette/Vaping Use: Never Used Second Hand Smoke Exposure: No Substance Use Type: Marijuana service: No Current occupational status: retired Current occupation: right hand dominant Review of Systems Const All systems reviewed & are unremarkable except as noted in HPI and below Physical Exam Exam Exam: No apparent distress Nonicteric Abdomen soft, nondistended Alert and oriented x3, seated in wheelchair Vital Signs: Last Vital Signs Pulse 86 04/21/25 11:33 BP 113/56 L 04/21/25 11:33 BMI result Body Mass Index 27.8 Assessment & Plan Assessment & Plan (1) Chronic idiopathic constipation: Code(s): K59.04 - Chronic idiopathic constipation Category: Medical (2) Abdominal pain: Code(s): R10.9 - Unspecified abdominal pain Category: Medical (3) Paraesophageal hernia: Code(s): K44.9 - Diaphragmatic hernia without obstruction or gangrene Category: Medical (4) GERD (gastroesophageal reflux disease): Code(s): K21.9 - Gastro-esophageal reflux disease without esophagitis Category: Medical (5) Anemia: Code(s): D64.9 - Anemia, unspecified Category: Medical Plan 1. CIC: Plan: - Increase hydration - Increase physical activity/movement - Start Linzess 72 - if no response x 7 days, can increase to 144 mcg - Hold miralax while trialing linzess to avoid diarrhea 2. GERD Likely 2/2 large paraesophageal hernia. Minimal improvement despite max antisecretory therapy. Will escalate to PCAB. Plan: - Stop protonix - Start vanoprazan 10 mg at night daily 3. Anemia Likely 2/2 epistaxis. Plan: - Recheck labs before next visit Follow up 2 months Orders: Orders Ferritin 2 Months D64.9 - Anemia, unspecified Complete Blood Count Auto Diff 2 Months D64.9 - Anemia, unspecified Medications: New linaclotide (Linzess) Take 1 capsule once daily at night. If no response in 7 days, increase to 2 capsules a day. 72 mcg PO DAILY 90 caps 0RF 90 days vonoprazan (Voquezna) Take in evening (to space out from clopidogrel) 10 mg PO DAILY 90 tabs 0RF 90 days Discontinued pantoprazole Discontinued Reason: Doctor's Order 40 mg PO BID 60 tabs 3RF Patient Instructions: - Start linzess 72 mcg daily. Increase to 2 capsules if no improvement in constipation in a week. - Stop pantoprazole - Start Vanoprazan daily at night time. - Pls get blood work done before next appt in 2 months Coding Level of Care Code Est Pt Level 4 (76459) Complex EM visit Add On G2211 Diagnoses Chronic idiopathic constipation K59.04 Abdominal pain R10.9 Paraesophageal hernia K44.9 GERD (gastroesophageal reflux disease) K21.9 Anemia D64.9
[2025-04-21 11:33] VITALS: BP 113/56; PULSE 86; BMI 27.8
--- OUTSIDE RECORDS SUMMARY | 2025-04-21 14:15 | XMS_ITS | Encounter Summary ---
Author Organization [employer] Address [address] [place] [address] 7 [place] [address] Care Team Providers Care Construction Electrician Name Role Phone Name, Eddie GILMORE Primary Care Provider [phone] Reason for Visit * Reason Onset Date Comments Medication Question 09/01/2023 Encounter Details Date Type Department Care Team ([facility] st Contact Info) Description 09/01/2023 Telephone [facility] MEDICINE [address] [place], [place] [phone] Name, MD Eddie [address] [place] [address] Medication Question Social History Tobacco Use Types [...] an add on. Please contact pharmacy at [phone]. documented in this encounter Plan of Treatment Upcoming Encounters Date Type Department Care Team (Late st Contact Info) Description 04/25/2025 9:30 AM EST Telemedicine [facility] MEDICINE [address] [place] [address] 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, JULY documented as of this encounter Visit Diagnoses Not on filedocumented in this encounter Additional Health Concerns Assessment Noted Time PHQ-9 Depression Total Score: 10 023 1:16 PM EDT documented as of this encounter Care Teams Construction Electrician Relationship Specialty Start Date End Date Name, MD Eddie [address] [place] [address] PCP - General Family Medicine 09/16/15 [place] A 07/01/24 documented as of this encounter
--- OUTSIDE RECORDS SUMMARY | 2025-04-21 14:15 | XMS_ITS | Encounter Summary ---
Author Organization [employer] Address [address] [place] [address] 7 [place] [address] Care Team Providers Care Wallcovering Texturer Name Role Phone Name, Eddie GILMORE Primary Care Provider [phone] Reason for Visit * Reason Comments Med Refill Encounter Details Date Type Department Care Team (Late Contact Info) Description 02/26/2023 Refill [facility] MEDICINE [address] [place] [address] [phone] Name, MD Eddie [address] [place] [address] [phone] Chronic pain syndrome Social History Tobacco Use [...] Department Care Team (Late Contact Info) Description 04/25/2025 9:30 AM EST Telemedicine [facility] MEDICINE [address] [place] [address] [phone] 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 RN documented as of this encounter Visit Diagnoses Diagnosis Chronic pain syndrome documented in this encounter Additional Health Concerns Assessment Noted Time PHQ-9 Depression Total Score: 10 023 1:16 PM EDT documented as of this encounter Care Teams Wallcovering Texturer Relationship Specialty Start Date End Date Name, MD Eddie [address] [place] [address] PCP - General Family Medicine 09/16/15 [place] SEN 07/01/24 documented as of this encounter
--- OUTSIDE RECORDS SUMMARY | 2025-04-21 14:15 | XMS_ITS | Clinical Summary ---
Author Organization [employer] Address [address] [place] [address] 7t [place] [address] Care Team Providers Care Office Runner Name Role Phone Name, Eddie GILMORE Primary Care Provider [phone] Allergies Active Allergy Reactions Criticality Noted Date [...] Homeopathic Products (Arnicare) gel Applied twice daily 2 Active Blood Glucose Monitoring Suppl (SenGenix Verio Flex System) w/Device kit USE DIRECTED 2 Active MILK THISTLE EXTRACT PO OTC daily 1 Active Myrbetriq 50 MG 24 hr tablet TAKE ONE TABLET BY MOUTH EVERY DAY DO NOT CRUSH OR CHEW 2 Active simethicone (Mylicon,Gas-X) 125 MG capsule OTC daily PRN gas/bloating 2 Active acetaminophen (Tylenol 8 Hour) 650 MG ER tablet Take 2 tablets by oral route every 8 hours as needed for pain 2 Active biotin 5 MG capsule OTC daily 2 Active loperamide (Imodium A-D) 2 MG tablet take 1 tablet by oral route after 1st loose stool and 1 tablet (2 mg) after each next bowel movement; do not exceed 16 mg in 24hrs Active magnesium oxide 500 MG tablet OTC daily Active Zinc Acetate 50 MG capsule OTC 3 times daily 2 Active levETIRAcetam (Keppra) 750 MG tablet Take 1 tablet by mouth 2 times daily. 3 Active clopidogrel (Plavix) 75 MG tablet Take 75 mg by mouth in the morning. 3 Active naloxone (Narcan) 4 mg/0.1 mL nasal sprayIndications :Chronic pain syndrome Administer 1 spray (4 mg) into affected nostril(s) if needed for opioid reversal. May repeat every 2-3 minutes if needed, alternating nostrils, until medical assistance becomes available. 2 each 2 4 Active trospium (Sanctura XR) 60 MG 24 hour capsule Take 60 mg by mouth Once per day. Active betamethasone valerate (Valisone) 0.1 % cream APPLY A THIN LAYER ONTO THE SKIN TO THE AFFECTED AREAS ONCE DAILY 15 g 4 Active cyanocobalamin (Vitamin B-12) 1000 MCG tablet TAKE 1 TABLET BY MOUTH EVERY MORNING 90 tablet 1 5 Active Advair HFA 230-21 MCG/ACT inhaler INHALE 2 PUFFS BY MOUTH EVERY TWELVE HOURS Active cholecalciferol VITAMIN D (Vitamin D-3) 50 MCG (2000 UT) tablet TAKE 1 TABLET BY MOUTH EVERY MORNING 90 tablet 2 5 Active Lancets (OneTouch Delica Plus [id number]) miscIndications: Controlled type 2 diabetes mellitus with complication, without long-term current use of insulin (HCC) USE TO CHECK BLOOD SUGAR TWICE A DAY 100 each 5 5 Active famotidine (Pepcid) 40 MG tablet TAKE 1 TABLET BY MOUTH EVERY DAY 90 tablet 2 5 Active glucose blood (OneTouch Verio) test stripIndications :Controlled type 2 diabetes mellitus with complication, without long-term current use of insulin (HCC) USE TO CHECK BLOOD SUGAR TWICE A DAY 50 strip 5 5 Active latanoprost (Xalatan) 0.005 % ophthalmic solution Administer 1 drop into both eyes Once per day. 2.5 mL 3 5 Active atorvastatin (Lipitor) 40 MG tablet TAKE 1 TABLET BY MOUTH EVERY MORNING 30 tablet 5 5 Active albuterol 108 (90 Base) MCG/ACT inhaler INHALE 2 PUFFS BY MOUTH EVERY 4 TO 6 HOURS NEEDED 8.5 g 1 5 Active hydroCHLOROthiaz armin 12.5 MG tablet 5 Active levothyroxine (Synthroid, Levoxyl) 112 MCG tabletIndication s:Hypothyroidism , unspecified type TAKE 1 TABLET BY MOUTH EVERY DAY 90 tablet 3 5 Active metFORMIN (Glucophage) 500 MG tablet TAKE 1 TABLET BY MOUTH TWICE DAILY IN THE MORNING AND AT BEDTIME 180 tablet 1 5 Active Polyethyl Glycol-Propyl Glycol (Systane) 0.4-0.3 % solution 1 drop in both eyes twice daily 5 mL 3 5 Active pantoprazole (ProtoNix) 40 MG EC tablet Take 1 tablet (40 mg) by mouth 2 times daily. 60 tablet 11 5 Active traZODone (Desyrel) 50 MG tablet TAKE 1 TABLET BY MOUTH AT BEDTIME 30 tablet 5 Active melatonin 5 MG tablet Take 2 tablets (10 mg) by mouth Once per day. At bedtime 30 tablet 3 5 Active oxyCODONE-acetam inophen (Percocet) 5-325 MG tabletIndication s:Chronic pain syndrome Take 1 tablet by mouth every 8 (eight) hours if needed for severe pain for up to 28 days. Do not start before March 26, 2025. 84 tablet 5 04/23/20 25 Active Active Problems Problem Noted Date Diagnosed Date Memory problem 02/19/2025 Chronic obstructive pulmonary disease 10/29/2024 Overview (10/29/2024): emphysema Pulmonary nodules 10/29/2024 Atherosclerosis of superior mesenteric artery Epistaxis 08/02/2024 Assessment & Plan (12/28/2024 8:05 AM EDT): -stable at this time. Continue current routine with any bleeding and return to ED if bleeding uncontrollable -connected with ENT -repeat CBC ordered Assessment & Plan (08/02/2024 3:41 PM EST): Will refer stat to ENT for cauterization, possible WINCHER scope Recommend anterior nasal packing if she is bleeding heavily jail (current) use of opiate analgesic 03/20 Overview (02/11/2025): Dx: chronic pain syndrome/back pain Rx: Percocet 5/325 every 8 hours Last GRAB DRIVER agreement:02/11/25 Tier II (visit every 3 months) [...] in 1-2 months as desired Seizure disorder (CMS/HCC) 02/05/2024 Abnormal nuclear stress test 11/28/2022 Anemia [...] that is chronic ready 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 She understands this is the [...] coronary artery 017 CVA (cerebral vascular accident) ([facility]) 11/16 Cerebellar infarction ([facility]) 01/18/2016 Overactive bladder 09/16/2015 Allergic rhinitis 10/21/2010 HTN (hypertension) 06/22/2007 Overview (06/16/2022): Meedications stopped 10/04/17 due to dizziness and hypotension symptoms Glaucoma 06/21/2005 Hyperlipidemia 06/21/2005 Hypothyroidism 06/21/2005 Overview (06/16/2022): S/p AAN for hyperthyroid state Resolved Problems Problem Noted Date Diagnosed Date Resolved Date Acute UTI 11/28/2022 05/14/2024 Chest pain 11/28/2022 02/05/2024 Preoperative cardiovascular examination 11/28/2022 02/05/2024 Encounters Date Type Department Care Team Description 03/21/2025 Refill [facility] MEDICINE [address] [place] [address] Name, MD Eddie Chronic pain syndrome 03/21/2025 Refill [facility] PEDS [address] [place], [place] [phone] Eddie Marshall MD 03/12/2025 Telephone [facility] MEDICINE [address] [place] [phone] Eddie Marshall MD 03/05/2025 Refill [facility] MED & PEDS [address] [place] [address] Eddie Marshall MD 02/25/2025 Refill [facility] MEDICINE [address] [place] [phone] Eddie Marshall MD Chronic pain syndrome 02/21/2025 Refill [facility] MED & PEDS [address] [place] [address] Eddie Marshall MD 02/19/2025 11:15 AM EDT Office Visit [facility] MEDICINE [address] [place] [phone] Eddie Marshall MD Controlled type 2 diabetes mellitus with complication, without long-term current use of insulin ([facility]) (Primary Dx); Hypothyroidism, unspecified type 02/19/2025 Travel 02/18/2025 Telephone [facility] MEDICINE [address] [place] [phone] Sophie Marie ID chart prep 02/11/2025 9:45 AM EDT Office Visit [facility] MED[facility]INE [address] [place] [phone] Mckenzie Trent FNP Chronic pain syndrome (Primary Dx); jail (current) use of opiate analgesic 02/11/2025 Travel 02/04/2025 Refill [facility] MED & PEDS [address] [place] [address] Eddie Marshall MD 01/31/2025 Refill [facility] MED & PEDS [address] [place], [place] [phone] Eddie Marshall MD 01/27/2025 Orders Only GENERIC EXTERNAL DATA DEPARTMENT Provider, Generic External Data 01/27/2025 Refill [facility] MEDICINE [address] [place] [phone] Eddie Marshall MD Chronic pain syndrome from Last 3 Months Immunizations Immunization Administration Dates Next Due Influenza injectable quadriv alent IIV4 with preservative 04/07/2016 Influenza, IIV3, injectable 03/23/2015,1 ,03/08/2013,04/06,05/01/2008,04/19/2007,05/10/2006 ,03/15/2005 Novel [id number], preservative-free 05/22/2009 Pneumococcal Polysaccharide PPSV23 07/11/2013, TD [...] Sign Reading Time Taken Comments Blood Pressure 124/84 02/19/2025 10:56 AM EDT Pulse 81 02/19/2025 10:56 AM EDT Temperature 36.9 C (98.4 F) 02/19/2025 10:56 AM EDT Respiratory Rate 20 02/19/2025 10:56 AM EDT Oxygen Saturation 95% 02/19/2025 10:56 AM EDT Inhaled Oxygen Concentration - - Weight 62.3 kg (137 lb 6.4 oz) 02/19/2025 10:56 AM EDT Height 154.9 cm (5' 1 ) 02/19/2025 10:56 AM EDT Body Mass Index 25.96 02/19/2025 10:56 AM EDT Plan of Treatment Upcoming Encounters Date Type Department Care Team (Late st Contact Info) Description 04/25/2025 9:30 AM EST Telemedicine [facility] MEDICINE [address] [place] [phone] 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, RN Health Maintenance Due Date Last Done Comments Zoster Vaccines (1 of 2) 1996 Pneumococcal Vaccine: 50+ Years (2 of 2 - PCV) 07/11/2014 07/11/2013, 03/02/2005 DTaP/Tdap/Td Vaccines (1 - Tdap) 03/25/2017 03/24/2017, 03/31/2003 RSV Patients and Patients Aged 60 years or older (1 - 1-dose 75+ series) 2021 Diabetes: Foot Exam 10/16/2024 10/17/2023, 10/17/2023, 10/17/2023, Additional history exists Depression Monitoring 11/07/2024 05/10/2024, 024 Diabetes: Urine Protein Screening 01/15/2025 01/16/2024, 09/14/2022 Lipid Panel 01/15/2025 01/16/2024, 08/18, 03/18/2020 COVID-19 Vaccine ( season) 2025 Influenza Vaccine (#1) 2025 6, 03/23/2015, 03/27/2014, Additional history exists Diabetes: Hemoglobin A1C 05/01/2025 025, 08/02/2024, 02/05/2024, Additional history exists Eye Exam 05/16/2025 05/16/2023, 05/0 02/2012, 10/21/2010, Additional history exists SDOH Screening 10/29/2025 10/29/2024 Alcohol/Substance Use Screening 02/19/2026 02/19/2025 Tobacco Screening 02/19/2026 02/19/2025 Hepatitis C Screening Completed 11/18/2022 HIB Vaccines [...] Name Priority Date/Time Associated Diagnosis Comments POCT GLUCOSE Routine 02/19/2025 10:58 AM EDT Controlled type 2 diabetes mellitus with complication, without long-term current use of insulin ([facility]) POCT ADRIAN-14 URINE DRUG SCREEN Routine 02/11/2025 10:44 AM EDT Chronic pain syndrome VITAMIN D,25-OH,TOTAL,IA Routine 01/27/2025 10:25 AM EDT CALCIUM, 24 HOUR URINE (W/ CREATININE) Routine 01/27/2025 7:30 AM EDT SODIUM, 24-HOUR URINE WITH CREATININE Routine 01/27/2025 7:30 AM EDT CREATININE, 24 HR GROUP Routine 01/27/2025 7:30 AM EDT POCT GLYCATED HEMOGLOBIN, TOTAL Routine 10/29/2024 2:29 PM EDT Controlled type 2 diabetes mellitus with complication, without long-term current use of insulin ([facility]) LIPID PANEL, STANDARD Routine 01/16/2024 9:40 AM EDT Controlled type 2 diabetes mellitus with complication, without long-term current use of insulin ([facility]) ALBUMIN, RANDOM URINE W/CREATININE Routine 01/16/2024 9:35 AM EDT Primary hypertension HM DIABETES EYE EXAM Routine 05/16/2023 HEPATITIS PANEL, GENERAL Routine 11/18/2022 2:07 PM EDT Diarrhea, unspecified type from Last 3 Months or Most Recently Relevant to Health Maintenance Results * POCT Glucose (02/19/2025 10:58 AM EDT) Pathologist [facility] Glucose Blood, POC 121 60 - 200 mg/dL QC Media Lot # [id number] Lot# Expiration Date Blood Capillary blood specimen / Unknown 02/19/2025 10:58 AM EDT us Eddiemendy Marshall MD POINT OF CARE TEST ENTER/EDIT OR DERABLES Final Result * (ABNORMAL) POCT ADRIAN-14 Urine Drug Screen (02/11/2025 10:44 AM EDT) Pathologist [facility] THC Negative Negative Cocaine Screen, Urine Negative [...] - 02/11/2025 10:44 AM EDT .UTOX cup Lot#[id number] Exp. 03/25/26 Internal Pass Control Mckenzie Trent TECHNICAL SOLUTIONS DIRECTOR POINT OF CARE TEST ENTER/EDIT ORDERABLES Final Result * Vitamin D, 25-Hydroxy, Total, Immunoassay (01/27/2025 10:25 AM EDT) Pathologist [facility] Vitamin D 25-OH Total 73.8 >30 ng/mL [facility] Comment: Health Based Reference Values*< 20 ng/mL [id number] ng/mL Insufficient> 30 ng/mL Sufficient*Judy REDDY. N [...] Provider LAB BLOOD ORDERAB LES Final Result [facility] [address] [place] [phone] * (ABNORMAL) Sodium, 24-Hour Urine with Creatinine (01/27/2025 7:30 AM EDT) Sodium, 24 Hour Urine 62.3 40 - 220 mmol/Day [facility] Creatinine, 24 Hour Urine 0.6(L) 1.0 - 2.0 G/Day [facility] Creatinine, Urine 54.30 [facility] Urine Total Volume 24 Hour 1,175 mL [facility] 01/27/2025 7:30 AM EDT 01/27/2025 12:46 PM EDT Generic External Data Provider LAB URINE ORDERAB LES Final Result Performing Organization Address [facility] Co de Phone Number [facility] [address] [place] [phone] * (ABNORMAL) CREATININE, 24 HR GROUP (01/27/2025 7:30 AM EDT) Creatinine, 24 Hour Urine 0.6(L) 1.0 - 2.0 G/Day [facility] Creatinine, Urine 53.89 [facility] Urine Total Volume 24 Hour 1,175 mL [facility] 01/27/2025 7:30 AM EDT 01/27/2025 12:41 PM EDT Narrative [facility] - 01/27/2025 2:25 PM EDT [id number] us Generic External Data Provider LAB URINE ORDERAB LES Final Result Performing Organization Address City/[facility]/ZIP Co de Phone Number [facility] [address] [place] [phone] * (ABNORMAL) Calcium, 24 Hour Urine W/ Creatinine (01/27/2025 7:30 AM EDT) Calcium, 24 Hour Urine 435(A) mg/24 h [facility] Comment:Reference Range 35-2 50 Low calcium diet 35-200 Calcium/Creatini ne Ratio 673(A) 30 - 275 mg/g creat [facility] Creatinine, 24 Hour Urine 0.65 0.50 - 2.15 g/24 h [facility] Comment:THIS TEST WAS PERFOR MED AT:[facility] [place] [phone] PAYNE MD 01/27/2025 7:30 AM EDT 01/27/2025 12:46 PM EDT us Generic External Data Provider LAB URINE ORDERAB LES Final Result [facility] [address] [place] [phone] * POCT HGB A1C (10/29/2024 2:29 PM EDT) Hemoglobin A1C 5.4 4.0 - 6.0 % QC Media Lot # [id number] Lot# Expiration Date Blood 10/29/2024 2:29 PM EDT Eddie Marshall MD POINT OF CARE TEST ENTER/EDIT OR DERABLES Final Result * (ABNORMAL) Lipid Panel, Standard (01/16/2024 9:40 AM EDT) Triglycerides 199(H) <150 mg/dL [facility] Comment:Desirable Triglyceri de: less than 150 mg/dLBorderline High Triglyceride 150-199 mg/dLHigh Triglyceride: 200-499 mg/dLVery High Triglyceride: greater than or equal to 5OO mg/dL Cholesterol 150 <200 mg/dL [facility] Comment:Desirable Cholestero l: less than 200 mg/dLBorderline High Cholesterol: 200-239 mg/dLHigh Cholesterol: greater than 239 mg/dL LDL Cholesterol Calculated 63 <100 mg/dL [facility] Comment:Desirable LDL: less than 100 mg/dLNear Optimal/Above Optimal LDL: 110- 129 mg/dLBorderline High LDL: 130-159 mg/dLHigh LDL: 160-189 mg/dLVery High LDL: greater than or equal to 190 mg/dL HDL Cholesterol 48 >40 mg/dL [facility] Comment:Desirable HDL: great er than 40 mg/dL Note: This HDL assay may give artificially low results in patients with liver disease. Blood Venous blood specimen / Unknown 01/16/2024 9:40 AM EDT 01/16/2024 11:20 AM EDT us Eddie Marshall MD LAB BLOOD ORDERABLES Final Resul t Performing Organization Address [facility] Co de Phone Number [facility] [address] [place] [phone] * Albumin, Random Urine W/Creatinine (01/16/2024 9:35 AM EDT) Creatinine, Urine 27.62 mg/dL [facility] Microalbumin Urine <5.0 mg/L [facility] Microalbum Creatinine Ratio Ur TNP <30 ug/mg cr [facility] Comment:Unable to calculate albumin/creatinine ratio due to lowmicroalbumin or creatinine result. Urine (Urine, Random) 01/16/2024 9:35 AM EDT 01/16/2024 11:12 AM EDT us Eddie Marshall MD LAB URINE ORDERABLES Final Resul t Performing Organization Address [facility] Co de Phone Number [facility] [address] [place] [phone] * Hm Diabetes Eye Exam (05/16/2023) Eye Exam Normal Normal us Eddie Marshall MD HEALTH MAINTENANCE Final Result * (ABNORMAL) Hepatitis Panel, General (11/18/2022 2:07 PM EDT) Hepatitis A Antibody Total REACTIVE( A) NON-REACT NAHID [facility] Comment: For additional information, please refer to [email or web address] [email or web address]/faq/[email or web address] (This link is being provided for informational/ educational purposes only.) Hepatitis B Surface Antibody QL NON-REACT NAHID NON-REACT NAHID [facility] [place] [facility] Hepatitis B Surface Ag NON-REACT NAHID NON-REACT NAHID [facility] [place] [facility] Hepatitis B Core Antibody Total NON-REACT NAHID NON-REACT NAHID [facility] [place] [facility] Hepatitis C Antibody NON-REACT NAHID NON-REACT NAHID [facility] [place] [facility] Index 0.07 <1.00 [facility] [place] [facility] Comment: HCV antibody was non-reactive. There is no laboratory evidence of HCV infection. In most cases, no further action is required. However, if recent HCV exposure is suspected, a test for HCV RNA (test code 97368) is suggested. For additional information please refer to http://[facility] [facility].FIGS/faq/OQK93j1 (This link is being provided for informational/ educational purposes only.) 11/18/2022 2:07 PM EDT 11/18/2022 2:09 PM EDT [facility] - 11/19/2022 6:51 AM EDT COLLECTION KIT GIVEN TO PATIENT. PATIENT ADVISED TO RETURN. us Mckenzie Pillai [facility] LAB BLOOD ORDERABLES Final Res ult [facility] [address], [place] [phone] [facility] [address] [place] [phone] from Last 3 Months or Most Recently Relevant to Health Maintenance Insurance [facility] Care Teams Office Runner Relationship Specialty Start Date End Date Name, MD Eddie [address] [place] [phone] PCP - General Family Medicine 09/16/15 [facility] 07/01/24
--- OUTSIDE RECORDS SUMMARY | 2025-04-21 14:15 | XMS_ITS | Data Portability ---
Author Organization [place] - [facility], Allergy Address [address] [address] Care Team Providers Care Highwall Drill Operator Name Role Phone NAME, DELIA Primary Care [...] severe episodes. [email or web address] Not available 10/11/2024 16:06:21 12/25/2024 12/25/2024 79-year-old female with extensive cardiac history on clopidogrel presents for reevaluation of the nose. Fortunately, no recurrence of epistaxis in the past 3 months. Anterior rhinoscopy is benign. She continues to use daily intranasal saline spray and gel as preventative measures, and plans to continue. Patient will follow-up in the office as needed. [email or web address] Not available 12/25/2024 12:09:34 Plan of Treatment Reminders Order Date Submit [...] Organization Details Recorded Time Essential hypertens ion 05898067 Active 2014 Essential (primary) hypertensi on; Note: Date Diagnosed: 05/07/2015 9:43 AM (I10) Not Available [facility]ly [facility] 4 02:37:47 Bleeding from nose 249202344 Active 2014 Epistaxis; Note: Date Diagnosed: 05/07/2015 9:43 AM (R04.0) Not Available [facility], [facility] 4 02:37:50 Anterior epistaxis 427860664 Active 2024 YANIV GARCIA MD [address] [place] [address], [phone] , [facility] 5 12:32:29 Problem Notes None recorded. Procedures Surgical History Date Name Laterality Status Provider Name and Address Organization Details Recorded Time 5 Epistaxis Simple Nasal Cautery Right completed YANIV GARCIA MD [address] [place] [address], [phone], [facility] 08/11/2024 12:31:38 Imaging Results None recorded. Procedure Notes None recorded. Medical Equipment None Reported. Allergies Allergen ID Allergen Name Allergen Category Reaction Reaction Severity Criticality Documentation Date Start Date Code Code System Note Provider Name and Address Organization Details Recorded Time 923681 scallop allergeni c extract food Not available Not available Not available 10/11/2024 85874 6 RxNorm Rosa jerry [place] - [facility] 5 15:45:20 22176 atorvasta tin medicatio n other Not available Not available 10/31/2023 50254 RxNorm Rosa jerry [place] - [facility] 5 15:45:20 Medications Name Sig Start Date [...] Not Available Not Available No t Available trazodone 50 mg tablet TAKE 1 TABLET BY MOUTH EVERY DAY AT BEDTIME active Not Available Not Available No t Available Stool Softener 100 mg capsule TAKE 1 CAPSULE BY MOUTH EVERY MORNING active Not Available Not Available No t Available oxybutyni n chloride ER 10 mg tablet,ex tended release 24 hr 08/09 completed Medicati on ID: [id number] D uration Value: 90 Brand Name: oxybutyn in chloride Send Method: E-Prescr ibed Sub s Allowed: subs OK Speci al Instruct ion: TAKE 1 TABLET BY MOUTH EVERY DAY Medi cationGe nericNam e: oxybutyn in chloride Not Available Not Available Not Available Patanol 0.1 % eye drops 08/09 completed Medicati on ID: [id number] B rand Name: Patanol Send Method: E-Prescr [...] layed release 08/09 completed Medicati on ID: [id number] B rand Name: aspirin Send Method: E-Prescr ibed Sub s Allowed: subs OK Medic ationGen ericName : aspirin Not Available Not Available Not Available tramadol 50 mg tablet 10/11 completed Medicati on ID: [id number] D uration Value: 28 Brand Name: tramadol Send Method: E-Prescr ibed Sub s Allowed: subs OK Speci al Instruct ion: TAKE 1 TABLET BY MOUTH EVERY 8 HOURS NEEDED FOR PAIN Med icationG enericNa me: tramadol Not Available Not Available Not Available nortripty line 25 mg capsule 08/09 completed Medicati on ID: [id number] D uration Value: 90 Brand Name: nortript yline Se nd Method: E-Prescr ibed Sub s Allowed: subs OK Speci al Instruct ion: TAKE 3 CAPSULES BY MOUTH AT BEDTIME Medicati onGeneri cName: nortript yline Not Available Not Available Not Available levothyro xine 100 mcg tablet 08/09 completed Medicati on ID: [id number] D uration Value: 90 Brand Name: levothyr [...] Not Available No t Available famotidin e 20 mg tablet TAKE 1 TABLET BY MOUTH [...] elayed release 10/11 completed Medicati on ID: [id number] D uration Value: 90 Brand Name: omeprazo le Send Method: E-Prescr ibed Sub s Allowed: subs OK Speci al Instruct ion: TAKE 2 CAPSULES BY MOUTH DAILY. M alfred nGeneric Name: omeprazo le Not Available Not [...] e 50 mcg/actua tion nasal spray,tawny penon 10/11 completed Medicati on ID: [id number] D uration Value: 30 Brand Name: fluticas one Send Method: E-Prescr ibed Sub s Allowed: subs OK Speci al Instruct ion: SPRAY 2 SPRAYS INTO EACH NOSTRIL DAILY Me dication GenericN delmi: fluticas one Not Available Not Available Not Available loratadin e 10 mg tablet 08/09 completed Medicati on ID: [id number] D uration Value: 30 Brand Name: loratadi [...] 500 mg tablet active Medicati on ID: [id number] B rand Name: Tylenol Extra Strength Send [...] Not Available Not Available No t Available cefixime 400 mg capsule TAKE 1 CAPSULE BY MOUTH EVERY DAY FOR 10 DAYS active Not Available Not Available No t [...] Updated DateTime 09/06/2024 157.48 cm 25.4 kg/m2 18001.34 g KELLY SKELTON [place] - [facility] 09/06/2024 13:28:14 Date Recorded Body height Body mass index (BMI) Body weight Provider Name and Address Organization Details Last Updated DateTime 10/11/2024 157.48 cm 25.4 kg/m2 52566.34 g Rosa Beltranjosé [facility] 10/11/2024 15:45:16 Date Recorded Body height Body mass index (BMI) Body weight Provider Name and Address Organization Details Last Updated DateTime 12/25/2024 157.48 cm 25.4 kg/m2 28479.34 g Ria Calderónos [facility] 12/25/2024 11:45:17 Social History None recorded. Functional Status None recorded. Mental Status None recorded. Family History Nothing Reported. Medical History Condition Response Diabetes Y Heart Problems Y Bleeding Disorder N Food Allergy Y Arthritis Y Emphysema Y Migraines Y Thyroid Problems Y Stroke Y COPD Y Asthma Y Glaucoma Y Nasal or Sinus Problems Y Anemia Y High Cholesterol Y GERD/Reflux Y Heart Attack ([place]) Y Headaches Y Fibromyalgia Y Hypertension Y Gynecological HistoryNo gynecological history recorded. Obstetrics History GPAL:G 0 P 0 0 0 0 Past Encounters Encounter ID Performer Location Encounter Start Date Encounter Closed Date Diagnosis/Indication Diagnosis SNOMED-CT Code Diagnosis ICD10 Code Diagnosis IMO Codes Diagnosis Note [id number] YANIV GARCIA MD [facility] [address] [address] 08/09/2024 09:39:15 08/09/2024 11:07:17 Anterior epistaxis 604699007 R04.0 78-year-ol d female with a history [...] for cautery on the left. Essential hypertension 52981151 I10 Long-term current use of antiplatelet drug 0458989235 79300 Z79.02 [id number] HUONG WLISON PA-C [facility] [place] [address] [place] [address] 09/06/2024 13:16:33 09/06/2024 13:54:17 Anterior epistaxis 764372184 R04.0 Bleeding from nose 78620 6005 R04.0 Essential hypertension 80506660 I10 [id number] JOEY ROY PA-C [facility] [place] [address] [place] [address] 10/11/2024 15:10:24 10/11/2024 16:03:50 Anterior epistaxis 449376348 R04.0 [id number] HUONG WILSON PA-C [facility] [place] [address] [place] [address] 12/25/2024 10:52:40 12/25/2024 12:15:37 Anterior epistaxis 368716575 R04.0 Long-term current use of drug therapy 002425042 Z79.02 845688 Health Concerns Section Related Observation LastModified by Organization Detai ls LastModified Time None Recorded Concern Status LastModified by Organization Details LastModified Time None Recorded Advance Directives Directive None Recorded Payers Insurance Date Sequence Insurance Name Policy Number Policy Zapata Covered Member ID Zapata Member ID Guarantor Name 11/19/2024 1 [place] [facility] Celeste Abad [id number] Celeste Abad 11/19/[address] [facility] - DUAL ELIGIBLE - [facility] (MEDICARE REPLACEMENT/ ADVANTAGE - HMO) Celeste Abad [id number] Celeste Abad 12/25/2024 1 [facility] (MEDICAID HMO) Celeste Abad [id number] Celeste Abad 11/19/2024 1 [facility] (MEDICAID HMO) Celeste Abad [id number] Celeste Jenniffer Notes Date Note Type Note Provider Name and Address Organization Details Recorded Time 08/09/2024 text/html ROS as noted in the [facility] 78 yo F with trouble with nose bleeds in the past, most recent 5-6 years ago and had nosebleed, sneezed through the mouth and nose, packed with gauze went [facility], no treatmentbleeding from both sides went back to the ED after 5 daysnow anemia, no need for transfusion a few since but able to stop them YANIV GARCIA MD [address],[place] [address], [place], [address], [facility] - [facility] [place] 08/11/2024 12:36:32 09/06/2024 text/html ROS as noted in the [facility] 78yo female with hypertension on clopidogrel presents for reevaluation of right recurrent nosebleeds. Right septum cauterized 08/09/[address] Garcia. Patient reports persistent recurrent right-sided nasal bleeding every couple days. Most recent episode 3 days ago, managed quickly with nasal cease. She is in the process of scheduling iron transfusions through [facility]. She was recently diagnosed with emphysema. She continues to touch the nose frequently. YANIV GACRIA MD [address] [address], [place], [address], [facility] - [facility] 09/06/2024 17:25:55 10/11/2024 text/html ROS as noted in the [facility] 78 year old female presents for evaluation of the nose. She reports epistaxis up to several times per week. Always from the right. Can be very high volume. Can persist for hours. Had nasal pack placed at [place] 09/26. For prevention, she applies saline gel with a Q-tip multiple times per day. When she bleeds she packs the nose with hemostat. AURORA SHAH MD [address], [place], [address], [facility] [place] [facility] 10/11/2024 16:14:56 12/25/2024 text/html ROS as noted in the [facility] 79-year-old female with extensive cardiac history on clopidogrel presents for reevaluation of right sided epistaxis. Fortunately, no recurrence of nasal bleeding in the past 3 months. She continues to use daily intranasal saline spray and gel as preventative measures. She underwent iron blood transfusions at [facility] for anemia. AURORA SHAH MD [address] [place] [address], [place], [address], [facility] - [facility] 12/25/2024 12:44:03 OBGyn Episode No OBEpisode recorded.
--- OUTSIDE RECORDS SUMMARY | 2025-04-21 14:15 | XMS_ITS | Encounter Summary ---
Author Organization [employer] Address [address] [place] [address] 7 [place] [address] Care Team Providers Care Aircraft Steel Fabricator Name Role Phone Name, Eddie GILMORE Primary Care Provider [phone] Reason for Visit * Reason Comments Med Refill Encounter Details Date Type Department Care Team ([facility] st Contact Info) Description 05/08/2023 Refill [facility] MEDICINE [address] [place], [place] [phone] Name, MD Eddie 230 [place] [address] Chronic pain syndrome Social History Tobacco Use [...] Info) Description 04/25/2025 9:30 AM EST Telemedicine [facility] MEDICINE [address] [place] [address] 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 RN documented as of this encounter Visit Diagnoses Diagnosis Chronic pain syndrome documented in this encounter Additional Health Concerns Assessment Noted Time PHQ-9 Depression Total Score: 10 023 1:16 PM EDT documented as of this encounter Care Teams Aircraft Steel Fabricator Relationship Specialty Start Date End Date Name, MD Eddie 230 [place] [address] PCP - General Family Medicine 09/16/15 [facility] 07/01/24 documented as of this encounter
--- OUTSIDE RECORDS SUMMARY | 2025-04-21 14:15 | XMS_ITS | Encounter Summary ---
Author Organization [employer] Address [address] [place] [address] 7 [place] [address] Care Team Providers Care Auricular Acupuncturist Name Role Phone Name, Eddie GILMORE Primary Care Provider [phone] Reason for Visit * Reason Comments Med Refill Encounter Details Date Type Department Care Team (Late Contact Info) Description 01/04/2023 Refill [facility] MEDICINE [address] [place] [phone] Name, MD Eddie [address] [place] [address] Gastroesophageal reflux disease, unspecified whether esophagitis present [...] Info) Description 04/25/2025 9:30 AM EST Telemedicine [facility] MEDICINE 230 [place] [address] 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, RN documented as of this encounter Visit Diagnoses Diagnosis Gastroesophageal reflux disease, unspecified whether esophagitis present documented in this encounter Additional Health Concerns Assessment Noted Time PHQ-9 Depression Total Score: 10 11/28/ 023 1:16 PM EDT documented as of this encounter Care Teams Auricular Acupuncturist Relationship Specialty Start Date End Date Name, MD Eddie 230 [place] [address] PCP - General Family Medicine 09/16/15 [facility] 07/01/24 documented as of this encounter
--- OUTSIDE RECORDS SUMMARY | 2025-04-21 14:15 | XMS_ITS | Encounter Summary ---
Author Organization [employer] Address [address] [place] [address] 7 [place] [address] Care Team Providers Care Orthopedic Dentist Name Role Phone Name, Eddie GILMORE Primary Care Provider [phone] Reason for Visit * Reason Onset Date Comments Medication Question 09/05/2023 Encounter Details Date Type Department Care Team ([facility] st Contact Info) Description 09/05/2023 Telephone [facility] MEDICINE 230 [place], [place] [phone] Name, MD Eddie 230 [place] [address] Medication Question Social History Tobacco Use Types [...] Info) Description 04/25/2025 9:30 AM EST Telemedicine [facility] MEDICINE [address] [place] [address] 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, JULY documented as of this encounter Visit Diagnoses Not on filedocumented in this encounter Additional Health Concerns Assessment Noted Time PHQ-9 Depression Total Score: 10 023 1:16 PM EDT documented as of this encounter Care Teams Orthopedic Dentist Relationship Specialty Start Date End Date Name, MD Eddie 230 [place] [address] PCP - General Family Medicine 09/16/15 [facility] 07/01/24 documented as of this encounter
--- OUTSIDE RECORDS SUMMARY | 2025-04-21 14:15 | XMS_ITS | Encounter Summary ---
Author Organization [employer] Address [address] [place] [address] 7 [place] [address] Care Team Providers Care Spool Cleaner Hand Name Role Phone Name, Eddie GILMORE Primary Care Provider [phone] Encounter Details Date Type Department Care Team ([facility] Contact Info) Description 11/18/[address] [phone] Name, MD Eddie [address] [place] [phone] Social History Tobacco Use Types Packs/Day Years [...] Upcoming Encounters Date Type Department Care Team ([facility] Contact Info) Description 04/25/2025 9:30 AM EST Telemedicine [address] [phone] 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 RN documented as of this encounter Visit Diagnoses Not on filedocumented in this encounter Care Teams Spool Cleaner Hand Relationship Specialty Start Date End Date Name, MD Eddie 230 [facility] [place] [address] PCP - General Family Medicine 09/16/15 [facility] 07/01/24 documented as of this encounter
--- OUTSIDE RECORDS SUMMARY | 2025-04-21 14:15 | XMS_ITS | Encounter Summary ---
Author Organization [employer] Address [address] [place] [address] [place] [address] Care Team Providers Care Drawing Supervisor Name Role Phone Name, Eddie GILMORE Primary Care Provider [phone] Reason for Visit * Reason Comments Med Refill Encounter Details Date Type Department Care Team (Late st Contact Info) Description 01/29/2023 Refill [facility] MEDICINE 230 [place], [place] [phone] Farhana Singh FNP Social History Tobacco Use [...] Info) Description 04/25/2025 9:30 AM EST Telemedicine [facility] MED[facility]INE [address] [place] [address] [phone] 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 RN documented as of this encounter Visit Diagnoses Not on filedocumented in this encounter Additional Health Concerns Assessment Noted Time PHQ-9 Depression Total Score: 10 023 1:16 PM EDT documented as of this encounter Care Teams Drawing Supervisor Relationship Specialty Start Date End Date Name, MD Eddie 230 [place] [address] PCP - General Family Medicine 09/16/15 [facility] 07/01/24 documented as of this encounter
--- OUTSIDE RECORDS SUMMARY | 2025-04-21 14:15 | XMS_ITS | Encounter Summary ---
Author Organization [employer] Address [address] [place] [address] 7 [place] [address] Care Team Providers Care Weed Science Research Technician Name Role Phone Name, Eddie GILMORE Primary Care Provider [phone] Reason for Visit * Reason Comments Med Refill Encounter Details Date Type Department Care Team ([facility] st Contact Info) Description 06/18/2023 Refill [facility] MEDICINE 230 [place], [place] [phone] Name, MD Eddie [address] [place] [address] Chronic pain syndrome Social History Tobacco Use [...] Info) Description 04/25/2025 9:30 AM EST Telemedicine [facility] MEDICINE [address] [place] [address] 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 RN documented as of this encounter Visit Diagnoses Diagnosis Chronic pain syndrome documented in this encounter Additional Health Concerns Assessment Noted Time PHQ-9 Depression Total Score: 10 023 1:16 PM EDT documented as of this encounter Care Teams Weed Science Research Technician Relationship Specialty Start Date End Date Name, MD Eddie [address] [place] [address] PCP - General Family Medicine 09/16/15 [place] [facility] 07/01/24 documented as of this encounter
--- OUTSIDE RECORDS SUMMARY | 2025-04-21 14:15 | XMS_ITS | Encounter Summary ---
Author Organization [employer] Address [address] [place] [address] 7 [place] [address] Care Team Providers Care Reserve Officer Name Role Phone Name, Eddie GILMORE Primary Care Provider [phone] Reason for Visit * Reason Onset Date Comments Med Refill 12/11/2024 Encounter Details Date Type Department Care Team ([facility] st Contact Info) Description 12/11/2024 Telephone [facility] MEDICINE 230 [place], [place] [phone] Name, MD Eddie 230 [place] [address] Med Refill Social History Tobacco Use Types [...] Verio) test strip Lancets (OneTouch Delica Plus Ssavep24E) misc levothyroxine (Synthroid, Levoxyl) 112 MCG tablet magnesium oxide 500 MG tablet melatonin 5 MG tablet traZODone (Desyrel) 50 MG tablet To be sent to: [facility] [address] [place] [address] documented in this encounter Plan of Treatment Upcoming Encounters Date Type Department Care Team ([facility] st Contact Info) Description 04/25/2025 9:30 AM EST Telemedicine [facility] MEDICINE [address] [place] [phone] 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, RN documented as of this encounter Visit Diagnoses Not on filedocumented in this encounter Additional Health Concerns Assessment Noted Time PHQ-9 Depression Total Score: 9 05/10/20 24 11:56 AM EST documented as of this encounter Care Teams Reserve Officer Relationship Specialty Start Date End Date Name, MD Eddie [address] [place] [address] PCP - General Family Medicine 09/16/15 [facility] documented as of this encounter
--- OUTSIDE RECORDS SUMMARY | 2025-04-21 14:15 | XMS_ITS | Encounter Summary ---
Author Organization [employer] Address [address] [place] [address] 7 [place] [address] Care Team Providers Care Header Setup Operator Name Role Phone Name, Eddie GILMORE Primary Care Provider [phone] Reason for Visit * Reason Onset Date Comments Referral 02/02/2023 Back dated refer ral Encounter Details Date Type Department Care Team ([facility] st Contact Info) Description 02/02/2023 Telephone [facility] MEDICINE 230 [place], [place] [phone] Name, MD Eddie 230 [place] [address] Referral (Back dated referral ) Social History [...] 1:40 PM EDT [facility] requesting status on message below regarding referral. Fax number [phone]. Any questions please call [phone] * Telephone Encounter - Amber Roger RN - 02/03/2023 10:34 AM EDT Please review message below regarding backdated referral for these dates * Telephone Encounter - Laure Mcgill - 02/02/2023 2:07 PM EDT Tc from [facility] at [facility] calling in regards to referral needing to be back dated. Patient was seen at the office on 01/03/23 and 01/11/23. Fax number [phone]. Any questions please call [phone]. documented in this encounter Plan of Treatment Upcoming Encounters Date Type Department Care Team (Late st Contact Info) Description 04/25/2025 9:30 AM EST Telemedicine [facility] MEDICINE [address] [place] [address] 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 RN documented as of this encounter Visit Diagnoses Not on filedocumented in this encounter Additional Health Concerns Assessment Noted Time PHQ-9 Depression Total Score: 10 023 1:16 PM EDT documented as of this encounter Care Teams Header Setup Operator Relationship Specialty Start Date End Date Name, MD Eddie [address] [place] [address] PCP - General Family Medicine [facility] documented as of this encounter
--- OUTSIDE RECORDS SUMMARY | 2025-04-21 14:15 | XMS_ITS | Encounter Summary ---
Author Organization [employer] Address [address] [place] [address] [place] [address] Care Team Providers Care Olive Grower Name Role Phone Name, Eddie GILMORE Primary Care Provider Reason for Visit * Reason Onset Date Comments Hospital Follow-up 11/10/2022 Encounter Details Date Type Department Care Team (Late st Contact Info) Description 11/10/[address] [facility] MEDICINE [address] [place] [address] [phone] Name, MD Eddie 230 [place] [address] Social History Tobacco Use Types Packs/Day Years [...] Jackman Sent: 11/21/2022 5:23 PM EDT To: [facility] Team Nurses Hi team! Sent this pt to the ED over the weekend for Hgb 7. Got admitted and looks like recently discharged. Can you please outreach her for status check and sched HDF w/ DrRod Name? Thank you!! * Telephone Encounter - Suzette Singh RN - 11/22/2022 11:10 AM EDT T/C to [phone] to schedule HDF apt. No answer. LVM to call back on [phone]. ----- Message from Amber Roger RN sent at 11/22/2022 9:06 AM EDT ----- ----- Message ----- From: DENIS Jackman Sent: 11/21/2022 5:23 PM EDT To: [facility] Team Nurses Hi team! Sent this [...] Info) Description 04/25/2025 9:[address] [facility] MEDICINE 230 [place] [address] 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, RN documented as of this encounter Visit Diagnoses Not on filedocumented in this encounter Care Teams Olive Grower Relationship Specialty Start Date End Date Name, MD Eddie 230 [place] [address] PCP - General Family Medicine 09/16/15 [facility] 07/01/24 documented as of this encounter
--- OUTSIDE RECORDS SUMMARY | 2025-04-21 14:15 | XMS_ITS | Encounter Summary ---
Author Organization [employer] Address [address] [place] [address] 7 [place] [address] Care Team Providers Care Air Traffic Supervisor Name Role Phone Name, Eddie GILMORE Primary Care Provider [phone] Reason for Visit * Reason Onset Date Comments Active Med List 06/28/2023 Encounter Details Date Type Department Care Team ([facility] st Contact Info) Description 06/28/2023 Telephone [facility] MEDICINE [address] [place], [place] [phone] Name, MD Eddie [address] [place] [address] Active Med List Social History Tobacco Use [...] Be requesting a updated active medication list health technical writer did attempt to transfer to Medical records so that she can obtain this information but they kept transferring back to the call center. [facility] [address], [place], [place] [phone] documented in this encounter Plan of Treatment Upcoming Encounters Date Type Department Care Team (Late st Contact Info) Description 04/25/2025 9:30 AM EST Telemedicine [facility] MEDICINE [address] [place] [address] 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, JULY documented as of this encounter Visit Diagnoses Not on filedocumented in this encounter Additional Health Concerns Assessment Noted Time PHQ-9 Depression Total Score: 10 023 1:16 PM EDT documented as of this encounter Care Teams Air Traffic Supervisor Relationship Specialty Start Date End Date Name, MD Eddie [address] [place] [address] PCP - General Family Medicine 3/30/16 Jerica SEN 07/01/24 documented as of this encounter
--- OUTSIDE RECORDS SUMMARY | 2025-04-21 14:15 | XMS_ITS | Encounter Summary ---
Author Organization [employer] Address [address] [place] [address] 7 [place] [address] Care Team Providers Care Strap Maker Name Role Phone Name, Eddie GILMORE Primary Care Provider [phone] Reason for Visit * Reason Comments Med Refill Encounter Details Date Type Department Care Team (Late Contact Info) Description 12/01/2022 Refill [facility] MEDICINE [address] [place], [place] [phone] Name, MD Eddie [address] [place] [address] Controlled type 2 diabetes mellitus with complication, without long-term current use of insulin ([facility]) Social History Tobacco Use Types Packs/Day Years [...] Info) Description 04/25/2025 9:30 AM EST Telemedicine [facility] MEDICINE [address] [place] [address] 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, RN documented as of this encounter Visit Diagnoses Diagnosis Controlled type 2 diabetes mellitus with complication, without long-term current use of insulin (HCC) documented in this encounter Additional Health Concerns Assessment Noted Time PHQ-9 Depression Total Score: 10 11/28/ 023 1:16 PM EDT documented as of this encounter Care Teams Strap Maker Relationship Specialty Start Date End Date Name, MD Eddie [address] [place] [address] PCP - General Family Medicine 09/16/15 Jerica [facility] 07/01/24 documented as of this encounter
--- OUTSIDE RECORDS SUMMARY | 2025-04-21 14:15 | XMS_ITS | Encounter Summary ---
Author Organization [employer] Address [address] [place] [address] 7 [place] [address] Care Team Providers Care Warehouse Analyst Name Role Phone Name, Eddie GILMORE Primary Care Provider [phone] Reason for Visit * Reason Onset Date Comments ER Follow-up 09/27/2024 Encounter Details Date Type Department Care Team ([facility] st Contact Info) Description 09/27/2024 Telephone [facility] MEDICINE [address] [place], [place] [phone] Name, MD Eddie [address] [place] [address] ER Follow-up Social History Tobacco Use Types [...] ED visit on : Date: 09/26/24 Hospital: [facility] Seen for: Nose bleeds Symptomatic yes . [...] Info) Description 04/25/2025 9:30 AM EST Telemedicine [facility] MEDICINE [address] [place] [address] 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, JULY documented as of this encounter Visit Diagnoses Not on filedocumented in this encounter Additional Health Concerns Assessment Noted Time PHQ-9 Depression Total Score: 9 05/10/20 24 11:56 AM EST documented as of this encounter Care Teams Warehouse Analyst Relationship Specialty Start Date End Date Name, MD Eddie [address] [place] [address] PCP - General Family Medicine 09/16/15 [facility] 07/01/24 documented as of this encounter
== END 2025-04-21 11:59 | disposition home or self-care (01) ==
LOC: HO.HGI 11:15
PROVIDERS: PCP Internal Medicine Geriatric Medicine; Visit Provider Internal Medicine
DX: K59.04 Chronic idiopathic constipation (principal); R10.9 Unspecified abdominal pain; K44.9 Diaphragmatic hernia without obstruction or gangrene; K21.9 Gastro-esophageal reflux disease without esophagitis; D64.9 Anemia, unspecified
CPT/HCPCS: 99214; G2211

== ENCOUNTER → 2025-04-21 11:14 | Outpatient (BNVA) | payer OTHER, SELFPAY | PROVIDERS: PCP Internal Medicine Geriatric Medicine; Visit Provider Internal Medicine | DX: D64.9 Anemia, unspecified (principal); K59.04 Chronic idiopathic constipation; R10.9 Unspecified abdominal pain; K44.9 Diaphragmatic hernia without obstruction or gangrene; K21.9 Gastro-esophageal reflux disease without esophagitis | CPT/HCPCS: 99212 ==

== ENCOUNTER → 2025-04-22 08:49 | Outpatient (REF) | payer OTHER, SELFPAY ==
--- OUTSIDE RECORDS SUMMARY | 2025-04-22 09:16 | XMS_ITS | Encounter Summary ---
Author Organization [employer] Address [address] [place] [address] 7 [place] [address] Care Team Providers Care Environmental Services Coordinator Name Role Phone Name, Eddie GILMORE Primary Care Provider [phone] Reason for Visit * Reason Onset Date Comments Med Refill 12/11/2024 Encounter Details Date Type Department Care Team ([facility] st Contact Info) Description 12/11/2024 Telephone [facility] [address] [place], [place] [phone] Name, MD Eddie [address] [place] [address] Med Refill Social History Tobacco Use Types [...] Verio) test strip Lancets (OneTouch Delica Plus [id number]) misc levothyroxine (Synthroid, Levoxyl) 112 MCG tablet magnesium oxide 500 MG tablet melatonin 5 MG tablet traZODone (Desyrel) 50 MG tablet To be sent to: [facility] [address] [place] [address] documented in this encounter Plan of Treatment Upcoming Encounters Date Type Department Care Team ([facility] st Contact Info) Description 04/25/2025 9:30 AM EST Telemedicine [facility] [address] [place] [address] 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, RN documented as of this encounter Visit Diagnoses Not on filedocumented in this encounter Additional Health Concerns Assessment Noted Time PHQ-9 Depression Total Score: 9 05/10/20 24 11:56 AM EST documented as of this encounter Care Teams Environmental Services Coordinator Relationship Specialty Start Date End Date Name, MD Eddie [address] [place] [address] PCP - General Family Medicine 09/16[facility] documented as of this encounter
--- OUTSIDE RECORDS SUMMARY | 2025-04-22 09:16 | XMS_ITS | Clinical Summary ---
Author Organization [employer] Address [address] [place] [address] 7t [place] [address] Care Team Providers Care Psychologists Name Role Phone Name, Eddie GILMORE Primary Care Provider [phone] Allergies Active Allergy Reactions Criticality Noted Date [...] daily 2 Active Blood Glucose Monitoring Suppl ([employer] Verio Flex System) w/Device kit USE DIRECTED [...] 2 5 Active Lancets (OneTouch Delica Plus [id number]) miscIndications: Controlled type 2 diabetes mellitus with [...] refer stat to ENT for cauterization, possible BONBON DIPPER scope Recommend anterior nasal packing if she is bleeding heavily detention (current) use of opiate analgesic 03/20 Overview (02/11/2025): Dx: chronic pain syndrome/back pain Rx: Percocet 5/325 every 8 hours Last PLASTICS REPAIRER agreement:02/11/25 Tier II (visit every 3 months) [...] coronary artery 017 CVA (cerebral vascular accident) ([facility]) 11/16 Cerebellar infarction ([facility]) 01/18/2016 Overactive bladder 09/16/2015 Allergic rhinitis 10/21/2010 [...] Type Department Care Team Description 03/21/2025 Refill [facility] MEDICINE [address] [place] [address] Name, MD Eddie Chronic pain syndrome 03/21/2025 Refill [facility] [address] [place], [place] [phone] Eddie Marshall MD 03/12/2025 Telephone [facility] [address] [place] [address] Eddie Marshall MD 03/05/2025 Refill [facility] [address] [place] [address] Eddie Marshall MD 02/25/2025 Refill [facility] [address] [place] [address] Eddie Marshall MD Chronic pain syndrome 02/21/2025 Refill [facility] [address] [place] [address] Eddie Marshall MD 02/19/2025 11:15 AM EDT Office Visit [facility] [address] [place] [address] Eddie Marshall MD Controlled type 2 diabetes mellitus with complication, without long-term current use of insulin ([facility]) (Primary Dx); Hypothyroidism, unspecified type 02/19/2025 Travel 02/18/2025 Telephone [facility] [address] [place] [address] Sophie Marie CO chart prep 02/11/2025 9:45 AM EDT Office Visit [facility] [address] [place] [address] Mckenzie Trent FNP Chronic pain syndrome (Primary Dx); detention (current) use of opiate analgesic 02/11/2025 Travel 02/04/2025 Refill [facility] [address] [place] [address] Eddie Marshall MD 01/31/2025 Refill [facility] [address] [place], [place] [phone] Eddie Marshall MD 01/27/2025 Orders Only GENERIC EXTERNAL DATA DEPARTMENT Provider, Generic External Data 01/27/2025 Refill [facility] [address] [place] [address] Eddie Marshall MD Chronic pain syndrome from Last 3 Months Immunizations Immunization Administration Dates Next Due Influenza injectable quadriv alent IIV4 with preservative 04/07/2016 Influenza, IIV3, injectable 03/23/2015,1 ,03/08/2013,04/06,05/01/2008,04/19/2007,05/10/2006 ,03/15/2005 Novel [id number], preservative-free 05/22/2009 Pneumococcal Polysaccharide PPSV23 07/11/2013, TD [...] Info) Description 04/25/2025 9:30 AM EST Telemedicine [facility] [address] [place] [address] 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, RN Health Maintenance Due Date [...] complication, without long-term current use of insulin ([facility]) POCT ADRIAN-14 URINE DRUG SCREEN Routine 02/11/2025 [...] complication, without long-term current use of insulin ([facility]) LIPID PANEL, STANDARD Routine 01/16/2024 9:40 AM EDT Controlled type 2 diabetes mellitus with complication, without long-term current use of insulin ([facility]) ALBUMIN, RANDOM URINE W/CREATININE Routine 01/16/2024 9:35 AM EDT Primary hypertension HM DIABETES EYE EXAM Routine 05/16/2023 HEPATITIS PANEL, GENERAL Routine 11/18/2022 2:07 PM EDT Diarrhea, unspecified type from Last 3 Months or Most Recently Relevant to Health Maintenance Results * POCT Glucose (02/19/2025 10:58 AM EDT) Pathologist [facility] Glucose Blood, POC 121 60 - 200 mg/dL QC Media Lot # [id number] Lot# Expiration Date Blood Capillary blood specimen / Unknown 02/19/2025 10:58 AM EDT us Eddiemendy Marshall MD POINT OF CARE TEST ENTER/EDIT OR DERABLES Final Result * (ABNORMAL) POCT ADRIAN-14 Urine Drug Screen (02/11/2025 10:44 AM EDT) Pathologist [facility] THC Negative Negative Cocaine Screen, Urine Negative [...] - 02/11/2025 10:44 AM EDT .UTOX cup Lot#[id number] Exp. 03/25/26 Internal Pass Control Mckenzie Trent LANDSCAPING SUPERVISOR POINT OF CARE TEST ENTER/EDIT ORDERABLES Final Result * Vitamin D, 25-Hydroxy, Total, Immunoassay (01/27/2025 10:25 AM EDT) Pathologist [facility] Vitamin D 25-OH Total 73.8 >30 ng/mL [facility] Comment: Health Based Reference Values*< 20 ng/mL [id number] ng/mL Insufficient> 30 ng/mL Sufficient*Judy [place]. N [...] Provider LAB BLOOD ORDERAB LES Final Result [facility] [address] [place] [phone] * (ABNORMAL) Sodium, 24-Hour Urine with Creatinine (01/27/2025 7:30 AM EDT) Sodium, 24 Hour Urine 62.3 40 - 220 mmol/Day [facility] Creatinine, 24 Hour Urine 0.6(L) 1.0 - 2.0 G/Day [facility] Creatinine, Urine 54.30 [facility] Urine Total Volume 24 Hour 1,175 mL [facility] 01/27/2025 7:30 AM EDT 01/27/2025 12:46 PM EDT Generic External Data Provider LAB URINE ORDERAB LES Final Result Performing Organization Address [facility] Co de Phone Number [facility] [address] [place] [phone] * (ABNORMAL) CREATININE, 24 HR GROUP (01/27/2025 7:30 AM EDT) Creatinine, 24 Hour Urine 0.6(L) 1.0 - 2.0 G/Day [facility] Creatinine, Urine 53.89 [facility] Urine Total Volume 24 Hour 1,175 mL [facility] 01/27/2025 7:30 AM EDT 01/27/2025 12:41 PM EDT Narrative [facility] - 01/27/2025 2:25 PM EDT [id number] us Generic External Data Provider LAB URINE ORDERAB LES Final Result Performing Organization Address City/[facility]/ZIP Co de Phone Number [facility] [address] [place] [phone] * (ABNORMAL) Calcium, 24 Hour Urine W/ Creatinine (01/27/2025 7:30 AM EDT) Calcium, 24 Hour Urine 435(A) mg/24 h [facility] Comment:Reference Range 35-2 50 Low calcium diet 35-200 Calcium/Creatini ne Ratio 673(A) 30 - 275 mg/g creat [facility] Creatinine, 24 Hour Urine 0.65 0.50 - 2.15 g/24 h [facility] Comment:THIS TEST WAS PERFOR MED AT:[employer] [place] [phone] PAYNE MD 01/27/2025 7:30 AM EDT 01/27/2025 12:46 PM EDT us Generic External Data Provider LAB URINE ORDERAB LES Final Result [facility] [address] [place] [phone] * POCT HGB A1C (10/29/2024 2:29 PM EDT) Hemoglobin A1C 5.4 4.0 - 6.0 % QC Media Lot # [id number] Lot# Expiration Date Blood 10/29/2024 2:29 PM EDT Eddie Marshall MD POINT OF CARE TEST ENTER/EDIT OR DERABLES Final Result * (ABNORMAL) Lipid Panel, Standard (01/16/2024 9:40 AM EDT) Triglycerides 199(H) <150 mg/dL [facility] Comment:Desirable Triglyceri de: less than 150 mg/dLBorderline High Triglyceride 150-199 mg/dLHigh Triglyceride: 200-499 mg/dLVery High Triglyceride: greater than or equal to 5OO mg/dL Cholesterol 150 <200 mg/dL [facility] Comment:Desirable Cholestero l: less than 200 mg/dLBorderline High Cholesterol: 200-239 mg/dLHigh Cholesterol: greater than 239 mg/dL LDL Cholesterol Calculated 63 <100 mg/dL [facility] Comment:Desirable LDL: less than 100 mg/dLNear Optimal/Above Optimal LDL: 110- 129 mg/dLBorderline High LDL: 130-159 mg/dLHigh LDL: 160-189 mg/dLVery High LDL: greater than or equal to 190 mg/dL HDL Cholesterol 48 >40 mg/dL [facility] Comment:Desirable HDL: great er than 40 mg/dL Note: This HDL assay may give artificially low results in patients with liver disease. Blood Venous blood specimen / Unknown 01/16/2024 9:40 AM EDT 01/16/2024 11:20 AM EDT us Eddie Marshall MD LAB BLOOD ORDERABLES Final Resul t Performing Organization Address [facility] Co de Phone Number [facility] [address] [place] [phone] * Albumin, Random Urine W/Creatinine (01/16/2024 9:35 AM EDT) Creatinine, Urine 27.62 mg/dL [facility] Microalbumin Urine <5.0 mg/L [facility] Microalbum Creatinine Ratio Ur TNP <30 ug/mg cr [facility] Comment:Unable to calculate albumin/creatinine ratio due to lowmicroalbumin or creatinine result. Urine (Urine, Random) 01/16/2024 9:35 AM EDT 01/16/2024 11:12 AM EDT us Eddie Marshall MD LAB URINE ORDERABLES Final Resul t Performing Organization Address [facility] Co de Phone Number [facility] [address] [place] [phone] * Hm Diabetes Eye Exam (05/16/2023) Eye Exam Normal Normal us Eddie Marshall MD HEALTH MAINTENANCE Final Result * (ABNORMAL) Hepatitis Panel, General (11/18/2022 2:07 PM EDT) Hepatitis A Antibody Total REACTIVE( A) NON-REACT NAHID [facility] Comment: For additional information, please refer to http://Wayger.RentFeeder/faq/HTF810 (This link is being provided for informational/ educational purposes only.) Hepatitis B Surface Antibody QL NON-REACT NAHID NON-REACT NAHID [facility] Hepatitis B Surface Ag NON-REACT NAHID NON-REACT NAHID [employer] [facility] Hepatitis B Core Antibody Total NON-REACT NAHID NON-REACT NAHID [employer] [facility] Hepatitis C Antibody NON-REACT NAHID NON-REACT NAHID [facility] Index 0.07 <1.00 [facility] Comment: HCV antibody was non-reactive. There is no laboratory evidence of HCV infection. In most cases, no further action is required. However, if recent HCV exposure is suspected, a test for HCV RNA (test code 27066) is suggested. For additional information please refer to http://Wayger.RentFeeder/faq/DXM16i1 (This link is being provided for informational/ educational purposes only.) 11/18/2022 2:07 PM EDT 11/18/2022 2:[address] [facility] - 11/19/2022 6:51 AM EDT COLLECTION KIT GIVEN TO PATIENT. PATIENT ADVISED TO RETURN. us Mckenzie Pillai [facility] BLOOD ORDERABLES Final Res ult [facility] [address], [place] [address] [facility] [facility] [address] [place] [phone] from Last 3 Months or Most Recently Relevant to Health Maintenance Insurance [facility] Care Teams Psychologists Relationship Specialty Start Date End Date Name, MD Eddie [address] [place] [phone] PCP - General Family Medicine 09/16/15 [facility] 07/01/24
--- OUTSIDE RECORDS SUMMARY | 2025-04-22 09:16 | XMS_ITS | Encounter Summary ---
Author Organization [employer] Address [address] [place] [address] 7 [place] [address] Care Team Providers Care Educational Resource Coordinator Name Role Phone Name, Eddie GILMORE Primary Care Provider Encounter Details Date Type Department Care Team ([facility] Contact Info) Description 11/18/[address] [phone] Name, MD Eddie [address] [place] [address] [phone] Social History Tobacco Use Types Packs/Day Years [...] Upcoming Encounters Date Type Department Care Team ([facility] Contact Info) Description 04/25/2025 9:30 AM EST Telemedicine [address] [phone] 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 RN documented as of this encounter Visit Diagnoses Not on filedocumented in this encounter Care Teams Educational Resource Coordinator Relationship Specialty Start Date End Date Name, MD Eddie [address] [facility] [place] [address] PCP - General Family Medicine 09/16/15 Jerica SEN 07/01/24 documented as of this encounter
--- OUTSIDE RECORDS SUMMARY | 2025-04-22 09:16 | XMS_ITS | Encounter Summary ---
Author Organization [employer] Address [address] [place] [address] [place] [address] Care Team Providers Care Quality Eng Name Role Phone Name, Eddie GILMORE Primary Care Provider [phone] Reason for Visit * Reason Onset Date Comments Hospital Follow-up 11/10/2022 Encounter Details Date Type Department Care Team (Late st Contact Info) Description 11/10/2022 Refill [facility] MEDICINE [address] [place] [address] [phone] Name, MD Eddie [address] [place] [address] Social History Tobacco Use Types Packs/Day Years [...] Jackman Sent: 11/21/2022 5:23 PM EDT To: [facility] Team Nurses Hi team! Sent this pt to the ED over the weekend for Hgb 7. Got admitted and looks like recently discharged. Can you please outreach her for status check and sched HDF w/ DrRod Name? Thank you!! * Telephone Encounter - Suzette Singh RN - 11/22/2022 11:10 AM EDT T/C to [phone] to schedule HDF apt. No answer. LVM to call back on [phone]. ----- Message from Amber Roger RN sent at 11/22/2022 9:06 AM EDT ----- ----- Message ----- From: DENIS Jackman Sent: 11/21/2022 5:23 PM EDT To: [facility] Team Nurses Hi team! Sent [...] Info) Description 04/25/2025 9:30 AM EST Telemedicine [facility] MEDICINE [address] [place] [address] 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, RN documented as of this encounter Visit Diagnoses Not on filedocumented in this encounter Care Teams Quality Eng Relationship Specialty Start Date End Date Name, MD Eddie [address] [place] [address] PCP - General Family Medicine 09/16/15 [facility] 07/01/24 documented as of this encounter
--- OUTSIDE RECORDS SUMMARY | 2025-04-22 09:17 | XMS_ITS | Encounter Summary ---
Author Organization [employer] Address [address] [place] [address] 7 [place] [address] Care Team Providers Care Marine Welder Name Role Phone Name, Eddie GILMORE Primary Care Provider [phone] Reason for Visit * Reason Onset Date Comments Active Med List 06/28/2023 Encounter Details Date Type Department Care Team ([facility] st Contact Info) Description 06/28/2023 Telephone [facility] MEDICINE [address] [place], [place] [phone] Name, MD Eddie [address] [place] [address] Active Med List Social History Tobacco Use [...] Be requesting a updated active medication list contract technical writer did attempt to transfer to Medical records so that she can obtain this information but they kept transferring back to the call center. [facility] [address], [place], [place] [phone] documented in this encounter Plan of Treatment Upcoming Encounters Date Type Department Care Team (Late st Contact Info) Description 04/25/2025 9:30 AM EST Telemedicine [facility] MEDICINE [address] [place] [address] 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, JULY documented as of this encounter Visit Diagnoses Not on filedocumented in this encounter Additional Health Concerns Assessment Noted Time PHQ-9 Depression Total Score: 10 023 1:16 PM EDT documented as of this encounter Care Teams Marine Welder Relationship Specialty Start Date End Date Name, MD Eddie [address] [place] [address] PCP - General Family Medicine 3/30/16 Jerica SEN 07/01/24 documented as of this encounter
--- OUTSIDE RECORDS SUMMARY | 2025-04-22 09:17 | XMS_ITS | Encounter Summary ---
Author Organization [employer] Address [address] [place] [address] 7 [place] [address] Care Team Providers Care Supervisor Vacuum Metalizing Name Role Phone Name, Eddie GILMORE Primary Care Provider [phone] Reason for Visit * Reason Comments Med Refill Encounter Details Date Type Department Care Team (Late Contact Info) Description 01/04/2023 Refill [facility] MED[facility]INE [address] [place] [phone] Name, MD Eddie [address] [place] [address] Gastroesophageal reflux disease, unspecified whether esophagitis present [...] Info) Description 04/25/2025 9:30 AM EST Telemedicine [facility]INE [address] [place] [address] 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, RN documented as of this encounter Visit Diagnoses Diagnosis Gastroesophageal reflux disease, unspecified whether esophagitis present documented in this encounter Additional Health Concerns Assessment Noted Time PHQ-9 Depression Total Score: 10 11/28/ 023 1:16 PM EDT documented as of this encounter Care Teams Supervisor Vacuum Metalizing Relationship Specialty Start Date End Date Name, MD Eddie [address] [place] [address] PCP - General Family Medicine 09/16/15 [facility] 07/01/24 documented as of this encounter
--- OUTSIDE RECORDS SUMMARY | 2025-04-22 09:17 | XMS_ITS | Encounter Summary ---
Author Organization [employer] Address [address] [place] [address] 7 [place] [address] Care Team Providers Care Electric Tool Repairer Name Role Phone Name, Eddie GILMORE Primary Care Provider [phone] Reason for Visit * Reason Comments Med Refill Encounter Details Date Type Department Care Team (Late Contact Info) Description 12/01/2022 Refill [facility] MEDICINE [address] [place], [place] [phone] Name, MD Eddie [address] [place] [address] Controlled type 2 diabetes mellitus with complication, without long-term current use of insulin ([facility]) Social History Tobacco Use Types [...] Info) Description 04/25/2025 9:30 AM EST Telemedicine [facility] MEDICINE [address] [place] [address] 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, RN documented as of this encounter Visit Diagnoses Diagnosis Controlled type 2 diabetes mellitus with complication, without long-term current use of insulin (HCC) documented in this encounter Additional Health Concerns Assessment Noted Time PHQ-9 Depression Total Score: 10 11/28/ 023 1:16 PM EDT documented as of this encounter Care Teams Electric Tool Repairer Relationship Specialty Start Date End Date Name, MD Eddie [address] [place] [address] PCP - General Family Medicine 09/16/15 [place] [facility] 07/01/24 documented as of this encounter
--- OUTSIDE RECORDS SUMMARY | 2025-04-22 09:17 | XMS_ITS | Encounter Summary ---
Author Organization [employer] Address [address] [place] [address] 7 [place] [address] Care Team Providers Care Tradeshow Worker Name Role Phone Name, Eddie GILMORE Primary Care Provider [phone] Reason for Visit * Reason Comments Med Refill Encounter Details Date Type Department Care Team (Late Contact Info) Description 02/26/2023 Refill [facility] MEDICINE [address] [place] [address] [phone] Name, MD Eddie [address] [place] [address] [phone] Chronic pain syndrome Social History Tobacco Use [...] Info) Description 04/25/2025 9:30 AM EST Telemedicine [facility] MEDICINE [address] [place] [address] [phone] 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 RN documented as of this encounter Visit Diagnoses Diagnosis Chronic pain syndrome documented in this encounter Additional Health Concerns Assessment Noted Time PHQ-9 Depression Total Score: 10 023 1:16 PM EDT documented as of this encounter Care Teams Tradeshow Worker Relationship Specialty Start Date End Date Name, MD Eddie 230 [place] [address] PCP - General Family Medicine 09/16/15 [place] [facility] 07/01/24 documented as of this encounter
--- OUTSIDE RECORDS SUMMARY | 2025-04-22 09:17 | XMS_ITS | Encounter Summary ---
Author Organization [employer] Address [address] [place] [address] 7 [place] [address] Care Team Providers Care Client Coordinator Name Role Phone Name, Eddie GILMORE Primary Care Provider [phone] Reason for Visit * Reason Onset Date Comments Referral 02/02/2023 Back dated refer ral Encounter Details Date Type Department Care Team ([facility] st Contact Info) Description 02/02/2023 Telephone [facility] MEDICINE [address] [place], [place] [phone] Name, MD Eddie [address] [place] [address] Referral (Back dated referral ) Social History [...] 1:40 PM EDT Tc from Kasie at [facility] requesting status on message below regarding referral. Fax number [phone]. Any questions please call [phone] * Telephone Encounter - Amber Roger RN - 02/03/2023 10:34 AM EDT Please review message below regarding backdated referral for these dates * Telephone Encounter - Laure Mcgill - 02/02/2023 2:07 PM EDT Tc from Kasie at [facility] calling in regards to referral needing to be back dated. Patient was seen at the office on 01/03/23 and 01/11/23. Fax number [phone]. Any questions please call [phone]. documented in this encounter Plan of Treatment Upcoming Encounters Date Type Department Care Team (Late st Contact Info) Description 04/25/2025 9:30 AM EST Telemedicine [facility] MEDICINE [address] [place] [address] 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 RN documented as of this encounter Visit Diagnoses Not on filedocumented in this encounter Additional Health Concerns Assessment Noted Time PHQ-9 Depression Total Score: 10 023 1:16 PM EDT documented as of this encounter Care Teams Client Coordinator Relationship Specialty Start Date End Date Name, MD Eddie [address] [place] [address] PCP - General Family Medicine 09/16/15 [facility] documented as of this encounter
--- OUTSIDE RECORDS SUMMARY | 2025-04-22 09:17 | XMS_ITS | Encounter Summary ---
Author Organization [employer] Address [address] [place] [address] 7 [place] [address] Care Team Providers Care Curtain Mender Name Role Phone Name, Eddie GILMORE Primary Care Provider [phone] Reason for Visit * Reason Onset Date Comments Medication Question 09/05/2023 Encounter Details Date Type Department Care Team ([facility] st Contact Info) Description 09/05/2023 Telephone [facility] MEDICINE [address] [place], [place] [phone] Name, MD Eddie [address] [place] [address] Medication Question Social History Tobacco Use Types [...] Info) Description 04/25/2025 9:30 AM EST Telemedicine [facility] MEDICINE [address] [place] [address] 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, JULY documented as of this encounter Visit Diagnoses Not on filedocumented in this encounter Additional Health Concerns Assessment Noted Time PHQ-9 Depression Total Score: 10 023 1:16 PM EDT documented as of this encounter Care Teams Curtain Mender Relationship Specialty Start Date End Date Name, MD Eddie [address] [place] [address] PCP - General Family Medicine 09/16/15 [place] [facility] 07/01/24 documented as of this encounter
--- OUTSIDE RECORDS SUMMARY | 2025-04-22 09:17 | XMS_ITS | Encounter Summary ---
Author Organization [employer] Address [address] [place] [address] 7 [place] [address] Care Team Providers Care Planimeter Operator Name Role Phone Name, Eddie GILMORE Primary Care Provider [phone] Reason for Visit * Reason Comments Med Refill Encounter Details Date Type Department Care Team ([facility] st Contact Info) Description 05/08/2023 Refill [facility] MEDICINE [address] [place], [place] [phone] Name, MD Eddie [address] [place] [address] Chronic pain syndrome Social History Tobacco Use [...] EST Telemedicine [facility] MEDICINE [address] [place] [address] 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 RN documented as of this encounter Visit Diagnoses Diagnosis Chronic pain syndrome documented in this encounter Additional Health Concerns Assessment Noted Time PHQ-9 Depression Total Score: 10 023 1:16 PM EDT documented as of this encounter Care Teams Planimeter Operator Relationship Specialty Start Date End Date Name, MD Eddie [address] [place] [address] PCP - General Family Medicine 09/16/15 [facility] 07/01/24 documented as of this encounter
--- OUTSIDE RECORDS SUMMARY | 2025-04-22 09:17 | XMS_ITS | Encounter Summary ---
Author Organization [employer] Address [address] [place] [address] 7 [place] [address] Care Team Providers Care Production Control Scheduler Name Role Phone Name, Eddie GILMORE Primary Care Provider [phone] Reason for Visit * Reason Onset Date Comments ER Follow-up 09/27/2024 Encounter Details Date Type Department Care Team ([facility] st Contact Info) Description 09/27/2024 Telephone [facility] MEDICINE [address] [place], [place] [phone] Name, MD Eddie 230 [place] [address] ER Follow-up Social History Tobacco Use Types [...] ED visit on : Date: 09/26/24 Hospital: [facility] Seen for: Nose bleeds Symptomatic yes . [...] Description 04/25/2025 9:30 AM EST Telemedicine [facility] MEDICINE [address] [place] [address] 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, JULY documented as of this encounter Visit Diagnoses Not on filedocumented in this encounter Additional Health Concerns Assessment Noted Time PHQ-9 Depression Total Score: 9 05/10/20 24 11:56 AM EST documented as of this encounter Care Teams Production Control Scheduler Relationship Specialty Start Date End Date Name, MD Eddie 230 [place] [address] PCP - General Family Medicine 09/16/15 [facility] 07/01/24 documented as of this encounter
--- OUTSIDE RECORDS SUMMARY | 2025-04-22 09:17 | XMS_ITS | Encounter Summary ---
Author Organization [employer] Address [address] [place] [address] [place] [address] Care Team Providers Care Chain Saw Operator Name Role Phone Name, Eddie GILMORE Primary Care Provider [phone] Reason for Visit * Reason Comments Med Refill Encounter Details Date Type Department Care Team (Late st Contact Info) Description 01/29/2023 Refill [facility] MEDICINE [address] [place], [place] [phone] Farhana Singh FNP Social History Tobacco Use [...] Description 04/25/2025 9:30 AM EST Telemedicine [facility] MEDICINE [address] [place] [address] [phone] 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 RN documented as of this encounter Visit Diagnoses Not on filedocumented in this encounter Additional Health Concerns Assessment Noted Time PHQ-9 Depression Total Score: 10 023 1:16 PM EDT documented as of this encounter Care Teams Chain Saw Operator Relationship Specialty Start Date End Date Name, MD Eddie 230 [place] [address] PCP - General Family Medicine 09/16/15 [place] [facility] 07/01/24 documented as of this encounter
--- OUTSIDE RECORDS SUMMARY | 2025-04-22 09:17 | XMS_ITS | Encounter Summary ---
Author Organization [employer] Address [address] [place] [address] 7 [place] [address] Care Team Providers Care Wood Fuel Pelletizer Name Role Phone Name, Eddie GILMORE Primary Care Provider [phone] Reason for Visit * Reason Comments Med Refill Encounter Details Date Type Department Care Team ([facility] st Contact Info) Description 06/18/2023 Refill [facility] MEDICINE [address] [place], [place] [phone] Name, MD Eddie [address] [place] [address] Chronic pain syndrome Social History Tobacco Use [...] Info) Description 04/25/2025 9:30 AM EST Telemedicine [facility] MEDICINE [address] [place] [address] 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 RN documented as of this encounter Visit Diagnoses Diagnosis Chronic pain syndrome documented in this encounter Additional Health Concerns Assessment Noted Time PHQ-9 Depression Total Score: 10 023 1:16 PM EDT documented as of this encounter Care Teams Wood Fuel Pelletizer Relationship Specialty Start Date End Date Name, MD Eddie [address] [place] [address] PCP - General Family Medicine 09/16/15 [facility] 07/01/24 documented as of this encounter
--- OUTSIDE RECORDS SUMMARY | 2025-04-22 09:17 | XMS_ITS | Encounter Summary ---
Author Organization [employer] Address [address] [place] [address] 7 [place] [address] Care Team Providers Care Assembly Riveter Name Role Phone Name, Eddie GILMORE Primary Care Provider Reason for Visit * Reason Onset Date Comments Medication Question 09/01/2023 Encounter Details Date Type Department Care Team ([facility] st Contact Info) Description 09/01/2023 Telephone [facility] MEDICINE [address] [place], [place] [phone] Name, MD Eddie [address] [place] [address] Medication Question Social History Tobacco Use Types [...] an add on. Please contact pharmacy at [phone]. documented in this encounter Plan of Treatment Upcoming Encounters Date Type Department Care Team (Late st Contact Info) Description 04/25/2025 9:30 AM EST Telemedicine [facility] MEDICINE [address] [place] [address] 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, JULY documented as of this encounter Visit Diagnoses Not on filedocumented in this encounter Additional Health Concerns Assessment Noted Time PHQ-9 Depression Total Score: 10 023 1:16 PM EDT documented as of this encounter Care Teams Assembly Riveter Relationship Specialty Start Date End Date Name, MD Eddie [address] [place] [id number] PCP - General Family Medicine 09/16/15 [place] [facility] 07/01/24 documented as of this encounter
== END ==
LOC: HO.SL 08:49
PROVIDERS: PCP Internal Medicine Geriatric Medicine; Visit Provider Nurse Practitioner Family
DX: M81.0 Age-related osteoporosis without current pathological fracture (principal); R40.0 Somnolence; R06.83 Snoring; Z87.891 Personal history of nicotine dependence
CPT/HCPCS: 36415; 80048; 95806; 99212

== ENCOUNTER → 2025-04-22 08:58 | Outpatient (BNV) | payer OTHER, SELFPAY | PROVIDERS: PCP Internal Medicine Geriatric Medicine; Visit Provider Internal Medicine | DX: R06.83 Snoring (principal) | CPT/HCPCS: 95806 ==

== ENCOUNTER 2025-04-22 10:34 | Outpatient (AMB) | payer OTHER, SELFPAY ==
--- NOTE | 2025-04-22 10:42 | A.OFFVIS_ITS ---
Vital Signs 04/22/25 10:47 Height 5 ft 3.46 in Weight 148 lb 9.465 oz BMI 25.9 BP 118/62 Blood Pressure Location Lt brachial Position Sitting Pulse 83 Pulse Source Pulse Oximeter Pulse Oximetry (%) 98 Oxygen Delivery Method Room Air Intake Visit Reasons: Osteoporosis Intake Note: Patient present today for Osteoporosis follow up. Classification Counselor Required: No Accompanied by: Son Allergies Latex, Natural Rubber Allergy (Intermediate, Verified 04/21/25 11:38) Rash scallops Allergy (Unknown, Verified 04/21/25 11:38) Unknown Medication List - Last Reconciled 04/22/25 by Bucky Velasquez MD albuterol sulfate 90 mcg/actuation 2 puffs inhalation Q4H PRN albuterol sulfate 2.5 mg (3 mL) inhalation Q4-6H PRN atorvastatin 40 mg PO DAILY betamethasone valerate 0.1% 1 appl topical DAILY biotin 5 mg PO DAILY clopidogrel 75 mg PO QAM docusate sodium (Colace) 100 mg PO DAILY famotidine 40 mg PO DAILY fluticasone propion-salmeterol 230-21 mcg/actuation (Advair HFA) 2 puffs inhalation Q12H hydrochlorothiazide 12.5 mg PO DAILY latanoprost 0.005% 1 drp ophthalmic (eye) BEDTIME levetiracetam (Keppra) 750 mg PO BID levothyroxine 112 mcg PO DAILY lidocaine HCl 2% 1 appl topical .at bedtime 4 weeks linaclotide (Linzess) 72 mcg PO DAILY 90 days magnesium 500 mg PO DAILY melatonin 10 mg PO .hs metformin 500 mg PO BID milk thistle 500 mg PO BID mirabegron ER (Myrbetriq) 50 mg PO DAILY oxycodone-acetaminophen 5-325 mg 1 tab PO BID PRN peg 400-propylene glycol 0.4-0.3 % (Systane Ultra) drps ophthalmic (eye) polyethylene glycol 3350 (Miralax) 17 grams PO DAILY simethicone 125 mg PO TID PRN sodium chloride 3% 4 mL inhalation DAILY PRN trazodone 50 mg PO BEDTIME trospium ER 60 mg PO DAILY umeclidinium 62.5 mcg/actuation (Incruse Ellipta) 1 inh inhalation DAILY umeclidinium 62.5 mcg/actuation (Incruse Ellipta) 1 inh inhalation BEDTIME vonoprazan (Voquezna) 10 mg PO DAILY 90 days wheat dextrin (Benefiber Sugar Free (dextrin)) 1.5 grams PO BID HPI Comments Details: 79 YO Female with is seen in consultation at the request of PCP for Osteoporosis. First diagnosed in several yrs . Saw Raymundo Atkins in past. Never Received treatment in the past No history of pathologic fracture or ONJ. Fx L shoulder tripped . R foot fx 50 yrs ago after falling down stairs Has several servings of dietary calcium per day in the form of cheese, broccoli, ice cream . Not Takes Calcium supplement Takes 2000 IU of Vitamin D daily. Takes PPI, was on anticoagulant, on Keppra antiepileptic but no glucocorticoid medication. 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 UTD on dental cleanings and sees dentist every 6 months. No planned upcoming dental work or extractions. DXA dated :FINDINGS:09/29/22 AP SPINE L1-L4: BMD 0.785 g/cm2, Z-score -1.4, T-score -3.3, osteoporosis. LEFT FEMUR, NECK: BMD 0.573 g/cm2, Z-score -1.3, T-score -3.3, osteoporosis. LEFT FEMUR, TOTAL: BMD 0.639 g/cm2, Z-score -1.1, T-score -2.9, osteoporosis. IDENTIFIED RISK FACTORS: Early menopause, anticonvulsant, height loss, history of fracture (adult), osteoporosis, recurrent falls, secondary osteoporosis. HISTORY OF FRACTURE: Shoulder. MEDICATIONS: Calcium, vitamin D. MM/XR DEXA axial skeleton IMPRESSION: 1. DIAGNOSIS: Osteoporosis based on the lowest T-score value of -3.3 in the lumbar spine and femoral neck Tried to take hydrochlorothiazide but had significant hyponatremia and had to stop . However, patient remains on the hydrochlorothiazide today. History of TIAs preclude the use of Evenity. Use of Forteo or Tymlos might worsen hypercalciuria [facility] Medical History Paraesophageal hernia Osteoporosis Lower GI bleed Rectal bleed Anemia Stable angina Essential hypertension CVA (cerebral vascular accident) CAD (coronary artery disease) Surgical History Status post cardiac catheterization History of cardiac cath History of adenoidectomy Hx of tonsillectomy Hx of hernia repair History of section History of cholecystectomy History of appendectomy Family History Mother Cancer Father Heart attack Social History Household Members: Children Housing: House Do you presently have visiting nurse or other home services: Yes Alcohol intake: never Patient Tobacco Use Status: Former Tobacco user Years Smoked: 30 +/- e-Cigarette/Vaping Use: Never Used Second Hand Smoke Exposure: No Substance Use Type: Marijuana service: No Current occupational status: retired Current occupation: right hand dominant Physical Exam Vital Signs: Last Vital Signs Pulse 83 04/22/25 10:47 BP 118/62 04/22/25 10:47 Pulse Ox 98 04/22/25 10:47 Oxygen Delivery Method Room Air 04/22/25 10:47 BMI result Body Mass Index 25.9 Assessment & Plan Assessment & Plan (1) Osteoporosis: Code(s): M81.0 - Age-related osteoporosis without current pathological fracture Category: Medical Plan: This is a 79-year-old white female with a history of osteoporosis. Secondary workup was positive for hypercalciuria. Still has persistent hypercalciuria. Currently on the hydrochlorothiazide We will recheck basic metabolic panel. If hyponatremia persists, we will then stop the hydrochlorothiazide. Considering the different options of treatment, patient is a high risk for fracture, can not use Evenity because of the cardiovascular history. Tymlos or Forteo a relatively contraindicated because of worsening of hypercalciuria. We will talk to patient about starting Prolia 60 mg Q 6 months. Is due for another bone density in 09/2025 but will defer that until course of Prolia. - Coding Level of Care Code Est Pt Level 3 (71128) Diagnoses Osteoporosis M81.0
[2025-04-22 10:47] VITALS: BP 118/62; PULSE 83; O2SAT 98; BMI 25.9
== END 2025-04-22 11:09 | disposition home or self-care (01) ==
LOC: HO.ENCR 10:34
PROVIDERS: PCP Internal Medicine Geriatric Medicine; Visit Provider Internal Medicine Endocrinology, Diabetes & Metabolism
DX: M81.0 Age-related osteoporosis without current pathological fracture (principal)
CPT/HCPCS: 99213

== ENCOUNTER 2025-04-22 11:15 | Outpatient (REF) | payer OTHER, SELFPAY ==
[2025-04-22 13:31] LABS: Anion Gap 11 (12-20); Blood Urea Nitrogen 21 mg/dL (9-16); Calcium 9.2 mg/dL (8.4-10.2); Carbon Dioxide 28 mmol/L (22-29); Chloride 99 mmol/L (96-108); Estimated Glomerular Filt Rate > 60; Potassium 4.2 mmol/L (3.3-5.1); Sodium 134 mmol/L (135-145)
== END 2025-04-22 11:16 | disposition home or self-care (01) ==
LOC: HO.10HDL 11:15
PROVIDERS: Visit Provider Internal Medicine Endocrinology, Diabetes & Metabolism
DX: Z13.89 Encounter for screening for other disorder (principal)
CPT/HCPCS: 36415; 80048

== ENCOUNTER 2025-05-07 10:07 | Outpatient (REF) | payer OTHER, SELFPAY ==
[2025-05-07 10:37] LABS: MANUAL DIFF FLAG NO
[2025-05-07 10:42] LABS: Hematocrit 39.5 % (37.0-47.0); Hemoglobin 13.1 g/dl (12.0-16.0); Imm Gran Abs Auto 0.03 X10*3/uL (0.00-0.03); Imm Gran Pct Auto 0.3 % (0.0-0.4); Lymphocytes Absolute Auto 2.1 X10*3/uL (1.2-4.9); Mean Corpuscular HGB Conc 33.2 g/dl (31.0-35.0); Mean Corpuscular Hemoglobin 29.8 pg (27.0-33.0); Mean Corpuscular Volume 89.8 fL (80.0-98.0); NRBC Abs Auto 0.000 X10*3/uL (0.0-0.012); NRBC Pct Auto 0.0 /100WBC (0.0-0.2); Platelet Count 309 X10*3/uL (160-400); Red Blood Count 4.40 X10*6/uL (4.20-5.50); White Blood Count 9.6 X10*3/uL (4.8-10.8)
[2025-05-07 11:00] LABS: Alanine Aminotransferase 11 U/L (0-31); Albumin Level 4.0 g/dL (3.5-5.0); Alkaline Phosphatase 77 U/L (39-117); Anion Gap 13 (12-20); Aspartate Amino Transferase 17 U/L (5-31); Blood Urea Nitrogen 22 mg/dL (9-16); Calcium 9.1 mg/dL (8.4-10.2); Carbon Dioxide 24 mmol/L (22-29); Chloride 99 mmol/L (96-108); Estimated Glomerular Filt Rate > 60; Potassium 4.1 mmol/L (3.3-5.1); Sodium 132 mmol/L (135-145); Total Protein 7.1 g/dL (6.5-8.0)
[2025-05-07 11:15] LABS: Ferritin 49 ng/mL (10-250)
--- OUTSIDE RECORDS SUMMARY | 2025-05-07 19:17 | XMS_ITS | Encounter Summary ---
Author Organization [employer] Address [address] [place] [address] 7 [place] [address] Care Team Providers Care Jammer Operator Name Role Phone Name, Eddie GILMORE Primary Care Provider [phone] Reason for Visit * Reason Onset Date Comments Med Refill 12/11/2024 Encounter Details Date Type Department Care Team ([facility] st Contact Info) Description 12/11/2024 Telephone [facility] MEDICINE [address] [place], [place] [phone] Name, MD Eddie [address] [place] [address] Med Refill Social History Tobacco Use Types [...] Verio) test strip Lancets (OneTouch Delica Plus [id number]) [facility] levothyroxine (Synthroid, Levoxyl) 112 MCG tablet magnesium oxide 500 MG tablet melatonin 5 MG tablet traZODone (Desyrel) 50 MG tablet To be sent to: [facility] [address] [place] [address] documented in this encounter Plan of Treatment Upcoming Encounters Date Type Department Care Team ([facility] st Contact Info) Description 07/16/2025 10:45 AM EST Office Visit [facility] MEDICINE [address] [place] [address] Name, MD Eddie [address] [place] [address] 08/01/2025 9:30 AM EST Telemedicine [facility] MEDICINE [address] [place] [address] 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, RN documented as of this encounter Visit Diagnoses Not on filedocumented in this encounter Additional Health Concerns Assessment Noted Time PHQ-9 Depression Total Score: 9 05/10/20 24 11:56 AM EST documented as of this encounter Care Teams Jammer Operator Relationship Specialty Start Date End Date Name, [place] [address] PCP - General Family Medicine 09/16/15 [place] [facility] 07/01/24 documented as of this encounter
--- OUTSIDE RECORDS SUMMARY | 2025-05-07 19:17 | XMS_ITS | Encounter Summary ---
Author Organization [employer] Address [address] [place] [address] 7 [place] [address] Care Team Providers Care Income Tax Analyst Name Role Phone Name, Eddie GILMORE Primary Care Provider [phone] Encounter Details Date Type Department Care Team (Late st Contact Info) Description 05/07/2025 Orders Only GENERIC EXTERNAL DATA DEPARTMENT Provider, [...] Care Team (Late st Contact Info) Description 07/16/2025 10:45 AM EST Office Visit [address] [address] Name, MD Eddie [address] [place] [address] 08/01/2025 9:30 AM EST Telemedicine [address] [address] 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 RN documented as of this encounter Procedures Procedure Name Priority Date/Time Associated Diagnosis Comments CBC WITH AUTO DIFFERENTIAL Routine 05/07/2025 10:35 AM EST FERRITIN Routine 05/07/2025 10:35 AM EST documented in this encounter Results * Ferritin (05/07/2025 10:35 AM EST) Pathologist [facility] Ferritin 49 10 - 250 ng/mL [facility] 05/07/2025 10:3 5 AM EST 05/07/2025 10:35 AM EST us Generic External Data Provider LAB BLOOD ORDERAB LES Final Result [facility] [address] [place] [address] [phone] * (ABNORMAL) CBC auto differential (05/07/2025 10:35 AM EST) Pathologist [facility] White Blood Count 9.6 4.8 - 10.8 X10*3/uL [facility] Red Blood Count 4.40 4.20 - 5.50 X10*6/uL [facility] Hemoglobin 13.1 12.0 - 16.0 g/dl [facility] Hematocrit 39.5 37.0 - 47.0 % [facility] Mean Corpuscular Volume 89.8 80.0 - 98.0 fL [facility] Mean Corpuscular Hemoglobin 29.8 27.0 - 33.0 pg [facility] Mean Corpuscular HGB Conc 33.2 31.0 - 35.0 g/dl [facility] Red Cell Distribution Width 14.4 11.0 - 16.0 % [facility] Platelet Count 309 160 - 400 X10*3/uL [facility] Mean Platelet Volume 8.7(L) 9.4 - 12.3 fL [facility] Neutrophils Percent Auto 66.4 45 - 73 % [facility] Imm Gran Pct Auto 0.3 0.0 - 0.4 % [facility] Lymphocytes Percent Auto 21.4 20 - 40 % [facility] Monocytes Percent Auto 9.3 2 - 11 % [facility] Eosinophils Percent Auto 2.0 0 - 4 % [facility] Basophils Percent Auto 0.6 0 - 2 % [facility] NRBC Pct Auto 0.0 0.0 - 0.2 /100WBC [facility] Neutrophils Absolute Auto 6.4 2.0 - 8.3 x10*3/uL [facility] Imm Gran Abs Auto 0.03 0.00 - 0.03 X10*3/uL [facility] Lymphocytes Absolute Auto 2.1 1.2 - 4.9 X10*3/uL [facility] Monocytes Absolute Auto 0.9 0.1 - 1.2 X10*3/uL [facility] Eosinophils Absolute Auto 0.2 0.0 - 0.4 X10*3/uL [facility] Basophils Absolute Auto 0.1 0.0 - 0.2 X10*3/uL [facility] NRBC Abs Auto 0.000 0.0 - 0.012 X10*3/uL [facility] 05/07/2025 10:3 5 AM EST 05/07/2025 10:35 AM EST us Generic External Data Provider LAB BLOOD ORDERAB LES Final Result [facility] [address] [place] [address] [phone] documented in this encounter Visit Diagnoses Not on filedocumented in this encounter Additional Health Concerns Assessment Noted Time PHQ-9 Depression Total Score: 9 05/10/20 24 11:56 AM EST documented as of this encounter Care Teams Income Tax Analyst Relationship Specialty Start Date End Date Name, MD Eddie [address] [place] [phone] PCP - General Family Medicine 09/16/15 [facility] 07/01/24 documented as of this encounter
--- OUTSIDE RECORDS SUMMARY | 2025-05-07 19:17 | XMS_ITS | Encounter Summary ---
Author Organization [employer] Address [address] [place] [address] 7 [place] [address] Care Team Providers Care Equine Intern Name Role Phone Name, Eddie GILMORE Primary Care Provider [phone] Reason for Visit * Reason Onset Date Comments Medication Question 09/05/2023 Encounter Details Date Type Department Care Team ([facility] st Contact Info) Description 09/05/2023 Telephone [facility] MEDICINE [address] [place], [place] [phone] Name, MD Eddie [address] [place] [address] Medication Question Social History Tobacco Use Types [...] Description 07/16/2025 10:45 AM EST Office Visit [facility] MEDICINE [address] [place] [phone] Name, MD Eddie [address] [place] [phone] 08/01/2025 9:30 AM EST Telemedicine [facility] MEDICINE [address] [place] [phone] 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 RN documented as of this encounter Visit Diagnoses Not on filedocumented in this encounter Additional Health Concerns Assessment Noted Time PHQ-9 Depression Total Score: 10 11/28/ 023 1:16 PM EDT documented as of this encounter Care Teams Equine Intern Relationship Specialty Start Date End Date Name, MD Eddie [address] [place] [address] PCP - General Family Medicine 09/16/15 [facility] 07/01/24 documented as of this encounter
--- OUTSIDE RECORDS SUMMARY | 2025-05-07 19:17 | XMS_ITS | Encounter Summary ---
Author Organization [employer] Address [address] [place] [address] 7 [place] [address] Care Team Providers Care Track Production Engineer Name Role Phone Name, Eddie GILMORE Primary Care Provider [phone] Encounter Details Date Type Department Care Team ([facility] Contact Info) Description 11/18/[address] [phone] NameEddie MD [address] [place] [address] [phone] Social History Tobacco Use Types Packs/Day Years [...] Upcoming Encounters Date Type Department Care Team ([facility] Contact Info) Description 07/16/2025 10:45 AM EST Office Visit [address] [address] Name, MD Eddie [address] [place] [address] [phone] 08/01/2025 9:30 AM EST Telemedicine [facility] MEDICINE [address] [place] [address] 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, RN documented as of this encounter Visit Diagnoses Not on filedocumented in this encounter Care Teams Track Production Engineer Relationship Specialty Start Date End Date Name, MD Eddie [address] [place] [address] PCP - General Family Medicine 09/16/15 [facility] 07/01/24 documented as of this encounter
--- OUTSIDE RECORDS SUMMARY | 2025-05-07 19:17 | XMS_ITS | Clinical Summary ---
Author Organization [employer] Address [address] [place] [address] 7t [place] [address] Care Team Providers Care Steam Shovel Engineer Name Role Phone Name, Eddie GILMORE Primary Care Provider [phone] Allergies Active Allergy Reactions Criticality Noted Date [...] gel Applied twice daily 06/02/20 22 Active Blood Glucose Monitoring Suppl (Geoshouch Verio Flex System) w/Device kit USE DIRECTED [...] available. 2 each 2 03/22/20 24 Active trospium (Sanctura XR) 60 MG 24 hour capsule Take 60 mg by mouth Once per day. Active betamethasone valerate (Valisone) 0.1 % cream APPLY A THIN LAYER ONTO THE SKIN TO THE AFFECTED AREAS ONCE DAILY 15 g 05/22/20 24 Active cyanocobalamin (Vitamin B-12) 1000 MCG tablet TAKE 1 TABLET BY MOUTH EVERY MORNING 90 tablet 1 09/17/19 25 Active Advair HFA 230-21 MCG/ACT inhaler INHALE 2 PUFFS BY MOUTH EVERY TWELVE HOURS Active cholecalcifero l VITAMIN D (Vitamin D-3) 50 MCG (2000 UT) tablet TAKE 1 TABLET BY MOUTH EVERY MORNING 90 tablet 2 12/12/19 25 Active Lancets (OneTouch Delica Plus [id number]) miscIndication s:Controlled type 2 diabetes mellitus with [...] DAY 50 strip 5 12/12/19 25 Active latanoprost (Xalatan) 0.005 % ophthalmic solution Administer 1 drop into both eyes Once per day. 2.5 mL 3 12/17/19 25 Active atorvastatin (Lipitor) 40 MG tablet TAKE 1 TABLET BY MOUTH EVERY MORNING 30 tablet 5 01/04/20 25 Active albuterol 108 (90 Base) MCG/ACT inhaler INHALE 2 PUFFS BY MOUTH EVERY 4 TO 6 HOURS NEEDED 8.5 g 1 02/05/20 25 Active hydroCHLOROthi azide 12.5 MG tablet 02/14/20 25 Active levothyroxine (Synthroid, Levoxyl) 112 MCG tabletIndicati ons:Hypothyroi dism, unspecified type TAKE 1 TABLET BY MOUTH EVERY DAY 90 tablet 3 02/20/20 25 Active metFORMIN (Glucophage) 500 MG tablet TAKE 1 TABLET BY MOUTH TWICE DAILY IN THE MORNING AND AT BEDTIME 180 tablet 1 02/22/20 25 Active Polyethyl Glycol-Propyl Glycol (Systane) 0.4-0.3 % solution 1 drop in both eyes twice daily 5 mL 3 02/22/20 25 Active pantoprazole (ProtoNix) 40 MG EC tablet Take 1 tablet (40 mg) by mouth 2 times daily. 60 tablet 11 03/12/20 25 Active melatonin 5 MG tablet Take 2 tablets (10 mg) by mouth Once per day. At bedtime 30 tablet 3 03/21/20 25 Active traZODone (Desyrel) 50 MG tablet TAKE 1 TABLET BY MOUTH AT BEDTIME 30 tablet 04/22/20 25 Active oxyCODONE-acet aminophen (Percocet) 5-325 MG tabletIndicati ons:Chronic pain syndrome Take 1 tablet by mouth every 8 (eight) hours if needed for severe pain for up to 28 days. 84 tablet 04/25/20 25 025 Active traZODone (Desyrel) 50 MG tablet TAKE 1 TABLET BY MOUTH AT BEDTIME 30 tablet 03/21/20 25 025 Discontinued(R eorder (will not trigger notification to Pharmacy)) oxyCODONE-acet aminophen (Percocet) 5-325 MG tabletIndicati ons:Chronic pain syndrome Take 1 tablet by mouth every 8 (eight) hours if needed for severe pain for up to 28 days. Do not start before March 26, 2025. 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 She understands this is the [...] coronary artery 017 CVA (cerebral vascular accident) ([facility]) 11/16 Cerebellar infarction ([facility]) 01/18/2016 Overactive bladder 09/16/2015 Allergic rhinitis 10/21/2010 HTN (hypertension) 06/22/2007 Overview (06/16/2022): Meedications stopped 10/04/17 due to dizziness and hypotension symptoms Glaucoma 06/21/2005 Hyperlipidemia 06/21/2005 Hypothyroidism 06/21/2005 Overview (06/16/2022): S/p ANA for hyperthyroid state Resolved Problems Problem Noted Date Diagnosed Date Resolved Date Acute UTI 11/28/2022 05/14/2024 Chest pain 11/28/2022 02/05/2024 Preoperative cardiovascular examination 11/28/2022 02/05/2024 Encounters Date Type Department Care Team Description 05/07/2025 Orders Only GENERIC EXTERNAL DATA DEPARTMENT Provider, Generic External Data 04/25/2025 9:30 AM EST Telemedicine [facility] MEDICINE [address] [place] [phone] 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 RN nursing home (current) use of opiate analgesic 04/24/2025 Travel 04/24/2025 Telephone [facility] MEDICINE [address] [place] [address] NameEddie MD Medication Question 04/24/2025 Refill [facility] [address] [place] [phone] Eddie Marshall MD Chronic pain syndrome 04/22/2025 Refill [facility] & PEDS [address] [place] [address] Eddie Marshall MD 03/21/2025 Refill [facility] MEDICINE [address] [place] [phone] NameEddie MD Chronic pain syndrome 03/21/2025 Refill [facility] [address] [place] [address] Eddie Marshall MD 03/12/2025 Telephone [facility] MED[facility]INE [address] [place] [address] Eddie Marshall MD 03/05/2025 Refill [facility] PEDS [address] [place] [address] Eddie Marshall MD 02/25/2025 Refill [facility] MED[facility]INE [address] [place] [address] Eddie Marshall MD Chronic pain syndrome 02/21/2025 Refill [facility] [address] [place] [address] Eddie Marshall MD 02/19/2025 11:15 AM EDT Office Visit [facility] MEDICINE [address] [place] [phone] Eddie Marshall MD Controlled type 2 diabetes mellitus with complication, without long-term current use of insulin ([facility]) (Primary Dx); Hypothyroidism, unspecified type 02/19/2025 Travel 02/18/2025 Telephone [facility] MEDICINE [address] [place] [address] Sophie Marie MA chart prep 02/11/2025 9:45 AM EDT Office Visit [facility] MEDICINE [address] [place] [address] Mckenzie Trent FNP Chronic pain syndrome (Primary Dx); nursing home (current) use of opiate analgesic 02/11/2025 Travel 02/04/2025 Refill [facility] PEDS [address] [place] [address] Eddie Marshall MD from Last 3 Months Immunizations Immunization Administration Dates Next Due Influenza injectable quadriv alent IIV4 with preservative 04/07/2016 Influenza, IIV3, injectable 03/23/2015,1 ,03/08/2013,04/06,05/01/2008,04/19/2007,05/10/2006 ,03/15/2005 Novel [id number], preservative-free 05/22/2009 Pneumococcal Polysaccharide PPSV23 07/11/2013, TD [...] Description 07/16/2025 10:45 AM EST Office Visit [facility] MEDICINE [address] [place] [address] Name, MD Eddie [facility] [place] [address] 08/01/2025 9:30 AM EST Telemedicine [facility] Felix [facility] [place] [address] 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, RN Health Maintenance Due Date [...] 01/15/2025 01/16/2024, 08/18, 03/18/2020 COVID-19 Vaccine ( - season) 2025 Influenza Vaccine (#1) 2025 6, [...] Procedure Name Priority Date/Time Associated Diagnosis Comments FERRITIN Routine 05/07/2025 10:35 AM EST CBC WITH AUTO DIFFERENTIAL Routine 05/07/2025 10:35 AM EST POCT GLUCOSE Routine 02/19/2025 10:58 AM EDT Controlled type 2 diabetes mellitus with complication, without long-term current use of insulin (CMS/HCC) POCT ADRIAN-14 URINE DRUG SCREEN Routine 02/11/2025 10:44 AM EDT Chronic pain syndrome POCT GLYCATED [...] Maintenance Results * (ABNORMAL) CBC auto differential (05/07/2025 10:35 AM EST) White Blood Count 9.6 4.8 - 10.8 X10*3/uL [facility] Red Blood Count 4.40 4.20 - 5.50 X10*6/uL [facility] Hemoglobin 13.1 12.0 - 16.0 g/dl [facility] Hematocrit 39.5 37.0 - 47.0 % [facility] Mean Corpuscular Volume 89.8 80.0 - 98.0 fL [facility] Mean Corpuscular Hemoglobin 29.8 27.0 - 33.0 pg [facility] Mean Corpuscular HGB Conc 33.2 31.0 - 35.0 g/dl [facility] Red Cell Distribution Width 14.4 11.0 - 16.0 % [facility] Platelet Count 309 160 - 400 X10*3/uL [facility] Mean Platelet Volume 8.7(L) 9.4 - 12.3 fL [facility] Neutrophils Percent Auto 66.4 45 - 73 % [facility] Imm Gran Pct Auto 0.3 0.0 - 0.4 % [facility] Lymphocytes Percent Auto 21.4 20 - 40 % [facility] Monocytes Percent Auto 9.3 2 - 11 % [facility] Eosinophils Percent Auto 2.0 0 - 4 % [facility] Basophils Percent Auto 0.6 0 - 2 % [facility] NRBC Pct Auto 0.0 0.0 - 0.2 /100WBC [facility] Neutrophils Absolute Auto 6.4 2.0 - 8.3 x10*3/uL [facility] Imm Gran Abs Auto 0.03 0.00 - 0.03 X10*3/uL [facility] Lymphocytes Absolute Auto 2.1 1.2 - 4.9 X10*3/uL [facility] Monocytes Absolute Auto 0.9 0.1 - 1.2 X10*3/uL [facility] Eosinophils Absolute Auto 0.2 0.0 - 0.4 X10*3/uL [facility] Basophils Absolute Auto 0.1 0.0 - 0.2 X10*3/uL [facility] NRBC Abs Auto 0.000 0.0 - 0.012 X10*3/uL [facility] 05/07/2025 10:3 5 AM EST 05/07/2025 10:35 AM EST Generic External Data Provider LAB BLOOD ORDERAB LES Final Result Performing Organization Address [facility] Co de Phone Number [facility] [address] [place] [phone] * Ferritin (05/07/2025 10:35 AM EST) Pathologist [facility] Ferritin 49 10 - 250 ng/mL [facility] 05/07/2025 10:3 5 AM EST 05/07/2025 10:35 AM EST Generic External Data Provider LAB BLOOD ORDERAB LES Final Result Performing Organization Address [facility] de Phone Number [facility] [address] [place] [phone] * POCT Glucose (02/19/2025 10:58 AM EDT) [facility] Glucose Blood, POC 121 60 - 200 mg/dL QC Media Lot # [id number] Lot# Expiration Date Blood Capillary blood specimen / Unknown 02/19/2025 10:58 AM EDT Eddie Name POINT OF CARE TEST ENTER/EDIT OR DERABLES Final Result * (ABNORMAL) POCT ADRIAN-14 Urine Drug Screen (02/11/2025 10:44 AM EDT) [facility] THC Negative Negative Cocaine Screen, [...] - 02/11/2025 10:44 AM EDT .UTOX cup Lot#[id number] Exp. 03/25/26 Internal Pass Control Mckenzie Trent [employer] POINT OF CARE TEST ENTER/EDIT ORDERABLES Final Result * POCT HGB A1C (10/29/2024 2:29 PM EDT) Hemoglobin A1C 5.4 4.0 - 6.0 % QC Media Lot # [id number] Lot# Expiration Date Blood 10/29/2024 2:29 PM EDT Eddie Marshall MD POINT OF CARE TEST ENTER/EDIT OR DERABLES Final Result * (ABNORMAL) Lipid Panel, Standard (01/16/2024 9:40 AM EDT) Triglycerides 199(H) <150 mg/dL [facility] Comment:Desirable Triglyceri de: less than 150 mg/dLBorderline High Triglyceride 150-199 mg/dLHigh Triglyceride: 200-499 mg/dLVery High Triglyceride: greater than or equal to 5OO mg/dL Cholesterol 150 <200 mg/dL [facility] Comment:Desirable Cholestero l: less than 200 mg/dLBorderline High Cholesterol: 200-239 mg/dLHigh Cholesterol: greater than 239 mg/dL LDL Cholesterol Calculated 63 <100 mg/dL [facility] Comment:Desirable LDL: less than 100 [...] ORDERABLES Final Resul t Performing Organization Address [facility] Co de Phone Number [facility] [address] [place] [phone] * Albumin, Random Urine W/Creatinine (01/16/2024 9:35 AM EDT) Creatinine, Urine 27.62 mg/dL [facility] Microalbumin Urine <5.0 mg/L [facility] Microalbum Creatinine Ratio Ur TNP <30 ug/mg cr [facility] Comment:Unable to calculate albumin/creatinine ratio due to lowmicroalbumin or creatinine result. Urine (Urine, Random) 01/16/2024 9:35 AM EDT 01/16/2024 11:12 AM EDT us Eddie Marshall MD LAB URINE ORDERABLES Final Resul t Performing Organization Address [facility] Co de Phone Number [facility] [address] [place] [phone] * Diabetes Eye Exam (05/16/2023) Eye Exam Normal Normal us Eddie Marshall MD HEALTH MAINTENANCE Final Result * (ABNORMAL) Hepatitis Panel, General (11/18/2022 2:07 PM EDT) Hepatitis A Antibody Total REACTIVE( A) NON-REACT NAHID [facility] Comment: For additional information, please refer to http://education.[employer]/faq/RUD676 (This link is being provided for informational/ educational purposes only.) Hepatitis B Surface Antibody QL NON-REACT NAHID NON-REACT NAHID [facility] Hepatitis B Surface Ag NON-REACT NAHID NON-REACT NAHID [facility] Hepatitis B Core Antibody Total NON-REACT NAHID NON-REACT NAHID [facility] Hepatitis C Antibody NON-REACT NAHID NON-REACT NAHID [facility] Index 0.07 <1.00 [facility] Comment: HCV antibody was non-reactive. There is no laboratory evidence of HCV infection. In most cases, no further action is required. However, if recent HCV exposure is suspected, a test for HCV RNA (test code 39517) is suggested. For additional information please refer to http://education.[employer]ix/faq/IBF45h7 (This link is being provided for informational/ educational purposes only.) 11/18/2022 2:07 PM EDT 11/18/2022 2:09 PM EDT [facility] - 11/19/2022 6:51 AM EDT COLLECTION KIT GIVEN TO PATIENT. PATIENT ADVISED TO RETURN. Mckenzie Pillai [facility] LAB BLOOD ORDERABLES Final Res ult [facility] [address], [place] [address] [facility] [address] [place] [address] from Last 3 Months or Most Recently Relevant to Health Maintenance Insurance [employer] Care Teams Steam Shovel Engineer Relationship Specialty Start Date End Date Name, MD Eddie [address] [place] [address] PCP - General Family Medicine 09/16/15 Jerica Sim 07/01/24
--- OUTSIDE RECORDS SUMMARY | 2025-05-07 19:17 | XMS_ITS | Encounter Summary ---
Author Organization [employer] Address [address] [place] [address] 7 [place] [address] Care Team Providers Care Steam And Power Superintendent Name Role Phone Name, Eddie GILMORE Primary Care Provider [phone] Reason for Visit * Reason Onset Date Comments Active Med List 06/28/2023 Encounter Details Date Type Department Care Team ([facility] st Contact Info) Description 06/28/2023 Telephone [facility] MEDICINE [address] [place], [place] [phone] Name, MD Eddie [address] [place] [address] Active Med List Social History Tobacco Use [...] Be requesting a updated active medication list residential mortgage underwriter did attempt to transfer to Medical records so that she can obtain this information but they kept transferring back to the call center. [facility] Pharmacy [address], [place], [place] [phone] documented in this encounter Plan of Treatment Upcoming Encounters Date Type Department Care Team (Late st Contact Info) Description 07/16/2025 10:45 AM EST Office Visit [facility] MEDICINE [address] [place] [address] Name, MD Eddie [address] [place] [address] 08/01/2025 9:30 AM EST Telemedicine [facility] MEDICINE [address] [place] [address] 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, JULY documented as of this encounter Visit Diagnoses Not on filedocumented in this encounter Additional Health Concerns Assessment Noted Time PHQ-9 Depression Total Score: 10 023 1:16 PM EDT documented as of this encounter Care Teams Steam And Power Superintendent Relationship Specialty Start Date End Date Name, MD Eddie [address] [place] [address] PCP - General Family Medicine 09/16/15 [place] SEN 07/01/24 documented as of this encounter
--- OUTSIDE RECORDS SUMMARY | 2025-05-07 19:17 | XMS_ITS | Encounter Summary ---
Author Organization [employer] Address [address] [place] [address] 7 [place] [address] Care Team Providers Care Utility Aircrewman Name Role Phone Name, Eddie GILMORE Primary Care Provider [phone] Reason for Visit * Reason Comments Med Refill Encounter Details Date Type Department Care Team ([facility] st Contact Info) Description 06/18/2023 Refill [facility] MED[facility]INE [address] [place], [place] [phone] Name, MD Eddie [address] [place] [address] Chronic pain syndrome Social History Tobacco Use [...] Description 07/16/2025 10:45 AM EST Office Visit [facility] [address] [place] [address] Name, MD Eddie [address] [place] [address] 08/01/2025 9:30 AM EST Telemedicine [facility] [address] [place] [address] 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, JULY documented as of this encounter Visit Diagnoses Diagnosis Chronic pain syndrome documented in this encounter Additional Health Concerns Assessment Noted Time PHQ-9 Depression Total Score: 10 023 1:16 PM EDT documented as of this encounter Care Teams Utility Aircrewman Relationship Specialty Start Date End Date Eddie Marshall MD [address] [place] [address] PCP - General Family Medicine 09/16/15 [facility] 07/01/24 documented as of this encounter
--- OUTSIDE RECORDS SUMMARY | 2025-05-07 19:17 | XMS_ITS | Encounter Summary ---
Author Organization [employer] Address [address] [place] [address] [place] [address] Care Team Providers Care Oil Dipper Name Role Phone Name, Eddie GILMORE Primary Care Provider [phone] Reason for Visit * Reason Onset Date Comments Hospital Follow-up 11/10/2022 Encounter Details Date Type Department Care Team (Late st Contact Info) Description 11/10/2022 Refill [facility] MEDICINE [address] [place] [address] [phone] Name, MD Eddie [address] [place] [address] Social History Tobacco Use Types Packs/Day Years [...] Jackman Sent: 11/21/2022 5:23 PM EDT To: [facility] Team Nurses Hi team! Sent this pt to the ED over the weekend for Hgb 7. Got admitted and looks like recently discharged. Can you please outreach her for status check and sched HDF w/ DrRod Name? Thank you!! * Telephone Encounter - Suzette Singh RN - 11/22/2022 11:10 AM EDT T/C to [phone] to schedule HDF apt. No answer. LVM to call back on [phone]. ----- Message from Amber Roger RN sent at 11/22/2022 9:06 AM EDT ----- ----- Message ----- From: DENIS Jackman Sent: 11/21/2022 5:23 PM EDT To: [facility] Team Nurses Hi team! Sent this [...] Description 07/16/2025 10:45 AM EST Office Visit [address] [address] Name, MD Eddie [address] [place] [address] 08/01/2025 9:30 AM EST Telemedicine [address] [address] 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, JULY documented as of this encounter Visit Diagnoses Not on filedocumented in this encounter Care Teams Oil Dipper Relationship Specialty Start Date End Date NameEddie MD [address] [place] [address] PCP - General Family Medicine 09/16/15 [place] [facility] 07/01/24 documented as of this encounter
--- OUTSIDE RECORDS SUMMARY | 2025-05-07 19:18 | XMS_ITS | Encounter Summary ---
Author Organization [employer] Address [address] [place] [address] 7 [place] [address] Care Team Providers Care Children Counselor Name Role Phone Name, Eddie GILMORE Primary Care Provider [phone] Reason for Visit * Reason Onset Date Comments ER Follow-up 09/27/2024 Encounter Details Date Type Department Care Team ([facility] st Contact Info) Description 09/27/2024 Telephone [facility] MEDICINE [address] [place], [place] [phone] Name, MD Eddie [address] [place] [address] ER Follow-up Social History Tobacco Use Types [...] Description 07/16/2025 10:45 AM EST Office Visit [facility] MEDICINE [address] [place] [address] Name, MD Eddie [address] [place] [address] 08/01/2025 9:30 AM EST Telemedicine [facility] MEDICINE [address] [place] [address] 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, RN documented as of this encounter Visit Diagnoses Not on filedocumented in this encounter Additional Health Concerns Assessment Noted Time PHQ-9 Depression Total Score: 9 05/10/20 24 11:56 AM EST documented as of this encounter Care Teams Children Counselor Relationship Specialty Start Date End Date Name, MD Eddie 230 [place] [address] PCP - General Family Medicine 09/16/15 [place] [facility] 07/01/24 documented as of this encounter
--- OUTSIDE RECORDS SUMMARY | 2025-05-07 19:18 | XMS_ITS | Encounter Summary ---
Author Organization [employer] Address [address] [place] [address] [place] [address] Care Team Providers Care House Shorer Name Role Phone Name, Eddie GILMORE Primary Care Provider [phone] Reason for Visit * Reason Comments Med Refill Encounter Details Date Type Department Care Team (Late st Contact Info) Description 01/29/2023 Refill [facility] MEDICINE [address] [place] [address] [phone] Farhana Singh FNP Social History Tobacco Use [...] Description 07/16/2025 10:45 AM EST Office Visit [facility] MEDICINE [address] [place] [address] [phone] Name, MD Eddie [address] [place] [address] 08/01/2025 9:30 AM EST Telemedicine [facility] MEDICINE [address] [place] [address] [phone] Yaneth, Kaleigh, RN documented as of this encounter Visit Diagnoses Not on filedocumented in this encounter Additional Health Concerns Assessment Noted Time PHQ-9 Depression Total Score: 10 023 1:16 PM EDT documented as of this encounter Care Teams House Shorer Relationship Specialty Start Date End Date Name, MD Eddie [address] [place] [address] PCP - General Family Medicine 09/16/15 [facility] 07/01/24 documented as of this encounter
--- OUTSIDE RECORDS SUMMARY | 2025-05-07 19:18 | XMS_ITS | Data Portability ---
Author Organization [place] [facility], Allergy Address [address] [address] Care Team Providers Care Clinical Laboratory Aides Teacher Name Role Phone NAME, DELIA Primary Care [...] Organization Details Recorded Time Essential hypertens ion 56223585 Active 2014 Essential (primary) hypertensi on; Note: Date Diagnosed: 05/07/2015 9:43 AM (I10) Not Available [facility] 4 02:37:47 Bleeding from nose 441396018 Active 2014 Epistaxis; Note: Date Diagnosed: 05/07/2015 9:43 AM (R04.0) Not Available [facility] 4 02:37:50 Anterior epistaxis 438631105 Active 2024 YANIV GARCIA MD [address] [place] [address], [phone] , [facility] 5 12:32:29 Problem Notes None recorded. Procedures Surgical History Date Name Laterality Status Provider Name and Address Organization Details Recorded Time 5 Epistaxis Simple Nasal Cautery Right completed YANIV GARCIA MD [address] [place] [address], [phone], [facility] 08/11/2024 12:31:38 Imaging Results None recorded. Procedure Notes None recorded. Medical Equipment None Reported. Allergies Allergen ID Allergen Name Allergen Category Reaction Reaction Severity Criticality Documentation Date Start Date Code Code System Note Provider Name and Address Organization Details Recorded Time 425400 scallop allergeni c extract food Not available Not available Not available 10/11/2024 27798 6 RxNorm Rosa jerry [place] - [facility] 5 15:45:20 34526 atorvasta tin medicatio n other Not available Not available 10/31/2023 36585 RxNorm Rosa jerry [place] - [facility] 5 15:45:20 Medications Name Sig Start [...] 24 hr 08/09 completed Medicati on ID: [id number] D uration Value: 90 Brand Name: oxybutyn in chloride Send Method: E-Prescr ibed Sub s Allowed: subs OK Speci al Instruct ion: TAKE 1 TABLET BY MOUTH EVERY DAY Medi cationGe nericNam e: oxybutyn in chloride Not Available Not Available Not Available Patanol 0.1 % eye drops 08/09 completed Medicati on ID: 470878 B rand Name: Patanol Send Method: E-Prescr [...] layed release 08/09 completed Medicati on ID: [id number] B rand Name: aspirin Send Method: E-Prescr ibed Sub s Allowed: subs OK Medic ationGen ericName : aspirin Not Available Not Available Not Available tramadol 50 mg tablet 10/11 completed Medicati on ID: [id number] D uration Value: 28 Brand Name: tramadol Send Method: E-Prescr ibed Sub s Allowed: subs OK Speci al Instruct ion: TAKE 1 TABLET BY MOUTH EVERY 8 HOURS NEEDED FOR PAIN Med icationG enericNa me: tramadol Not Available Not Available Not Available nortripty line 25 mg capsule 08/09 completed Medicati on ID: [id number] D uration Value: 90 Brand Name: nortript yline Se nd Method: E-Prescr ibed Sub s Allowed: subs OK Speci al Instruct ion: TAKE 3 CAPSULES BY MOUTH AT BEDTIME Medicati onGeneri cName: nortript yline Not Available Not Available Not Available levothyro xine 100 mcg tablet 08/09 completed Medicati on ID: [id number] D uration Value: 90 Brand Name: levothyr [...] elayed release 10/11 completed Medicati on ID: [id number] D uration Value: 90 Brand Name: omeprazo [...] spray,tawny penon 10/11 completed Medicati on ID: [id number] D uration Value: 30 Brand Name: fluticas one Send Method: E-Prescr ibed Sub s Allowed: subs OK Speci al Instruct ion: SPRAY 2 SPRAYS INTO EACH NOSTRIL DAILY Me dication GenericN delmi: fluticas one Not Available Not Available Not Available loratadin e 10 mg tablet 08/09 completed Medicati on ID: [id number] D uration Value: 30 Brand Name: loratadi [...] 500 mg tablet active Medicati on ID: [id number] B rand Name: Tylenol Extra Strength Send [...] Updated DateTime 09/06/2024 157.48 cm 25.4 kg/m2 51937.34 g KELLY SKELTON [place] - [facility] 09/06/2024 13:28:14 Date Recorded Body height Body mass index (BMI) Body weight Provider Name and Address Organization Details Last Updated DateTime 10/11/2024 157.48 cm 25.4 kg/m2 72206.[address] [facility] 10/11/2024 15:45:16 Date Recorded Body height Body mass index (BMI) Body weight Provider Name and Address Organization Details Last Updated DateTime 12/25/2024 157.48 cm 25.4 kg/m2 04173.[address] [facility] 12/25/2024 11:45:17 Social History None recorded. Functional [...] High Cholesterol Y GERD/Reflux Y Heart Attack (SD) Y Headaches Y Fibromyalgia Y Hypertension Y Gynecological HistoryNo gynecological history recorded. Obstetrics History GPAL:G 0 P 0 0 0 0 Past Encounters Encounter ID Performer Location Encounter Start Date Encounter Closed Date Diagnosis/Indication Diagnosis SNOMED-CT Code Diagnosis ICD10 Code Diagnosis IMO Codes Diagnosis Note [id number] YANIV GARCIA MD [facility] [address] [address] 08/09/2024 09:39:15 08/09/2024 11:07:17 Anterior epistaxis 094400857 R04.0 78-year-ol d female with a history [...] for cautery on the left. Essential hypertension 78031118 I10 Long-term current use of antiplatelet drug 4313408013 39925 Z79.02 [id number] HUONG WILSON PA-C [facility] [place] [address] [place] [address] 09/06/2024 13:16:33 09/06/2024 13:54:17 Anterior epistaxis 199578334 R04.0 Bleeding from nose 39678 6005 R04.0 Essential hypertension 51527728 I10 [id number] JOEY ROY PA-C [facility] [place] [address] [place] [address] 10/11/2024 15:10:24 10/11/2024 16:03:50 Anterior epistaxis 626002950 R04.0 [id number] HUONG WILSON PA-C [facility] [place] [address] [place] [address] 12/25/2024 10:52:40 12/25/2024 12:15:37 Anterior epistaxis 838780953 R04.0 Long-term current use of drug therapy 563222301 Z79.02 559351 Health Concerns Section Related Observation LastModified by Organization Detai ls LastModified Time None Recorded Concern Status LastModified by Organization Details LastModified Time None Recorded Advance Directives Directive None Recorded Payers Insurance Date Sequence Insurance Name Policy Number Policy Zapata Covered Member ID Zapata Member ID Guarantor Name 11/19/2024 1 [place] [facility] Celeste Abad [id number] Celeste Abad 11/19/2024 2 [facility] - DUAL ELIGIBLE - [facility] (MEDICARE REPLACEMENT/ ADVANTAGE - HMO) Celeste Abad [id number] Celeste Abad 12/25/2024 1 [facility] (MEDICAID HMO) Celeste Abad [id number] Celeste Abad 11/19/2024 1 [facility] (MEDICAID HMO) Celeste Abad [id number] Celeste Jenniffer Notes Date Note Type Note Provider Name and Address Organization Details Recorded Time 08/09/2024 text/html ROS as noted in the [facility] 78 yo F with trouble with nose bleeds in the past, most recent 5-6 years ago and had nosebleed, sneezed through the mouth and nose, packed with gauze went [facility], no treatmentbleeding from both sides went back to the ED after 5 daysnow anemia, no need for transfusion a few since but able to stop them YANIV GARCIA MD [address] [facility] [address],[place] [address], [place], [address], [facility] [place] 08/11/2024 12:36:32 09/06/2024 text/html ROS as noted in the [facility] 78yo female with hypertension on clopidogrel presents for reevaluation of right recurrent nosebleeds. Right septum cauterized 08/09/[address] Garcia. Patient reports persistent recurrent right-sided nasal bleeding every couple days. Most recent episode 3 days ago, managed quickly with nasal cease. She is in the process of scheduling iron transfusions through [facility]. She was recently diagnosed with emphysema. She continues to touch the nose frequently. YANIV GARCIA MD [address] [facility] [place],[facility], [place], [address], [facility] - [facility] 09/06/2024 17:25:55 10/11/2024 text/html ROS as noted in the [facility] 78 year old female presents for evaluation of the nose. She reports epistaxis up to several times per week. Always from the right. Can be very high volume. Can persist for hours. Had nasal pack placed at [place] 09/26. For prevention, she applies saline gel with a Q-tip multiple times per day. When she bleeds she packs the nose with hemostat. AURORA SHAH MD [address], [place], [address], [facility] [place] 10/11/2024 16:14:56 12/25/2024 text/html ROS as noted in the [facility] 79-year-old female with extensive cardiac history on clopidogrel presents for reevaluation of right sided epistaxis. Fortunately, no recurrence of nasal bleeding in the past 3 months. She continues to use daily intranasal saline spray and gel as preventative measures. She underwent iron blood transfusions at [facility] for anemia. AURORA SHAH MD [address] [place] [address], [place], [address], [facility] 12/25/2024 12:44:03 OBGyn Episode No OBEpisode recorded.
--- OUTSIDE RECORDS SUMMARY | 2025-05-07 19:18 | XMS_ITS | Encounter Summary ---
Author Organization [email or web address] Address [address] [place] [address] 7 [place] [address] Care Team Providers Care Transportation Coordinator Name Role Phone Name, Eddie GILMORE Primary Care Provider [phone] Reason for Visit * Reason Comments Med Refill Encounter Details Date Type Department Care Team (Late Contact Info) Description 02/26/2023 Refill [facility] MEDICINE [address] [place] [address] [phone] Name, MD Eddie [address] [place] [address] [phone] Chronic pain syndrome Social History Tobacco Use [...] Department Care Team (Late Contact Info) Description 07/16/2025 10:45 AM EST Office Visit [facility] MEDICINE [address] [place] [address] [phone] NameEddie MD [address] [place] [address] [phone] 08/01/2025 9:30 AM EST Telemedicine [facility] MEDICINE [address] [facility] [place] [address] 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, RN documented as of this encounter Visit Diagnoses Diagnosis Chronic pain syndrome documented in this encounter Additional Health Concerns Assessment Noted Time PHQ-9 Depression Total Score: 10 023 1:16 PM EDT documented as of this encounter Care Teams Transportation Coordinator Relationship Specialty Start Date End Date Name, MD Eddie [address] [facility] [place] [address] PCP - General Family Medicine 09/16/15 [place] [facility] 07/01/24 documented as of this encounter
--- OUTSIDE RECORDS SUMMARY | 2025-05-07 19:18 | XMS_ITS | Encounter Summary ---
Author Organization [employer] Address [address] [place] [address] 7 [place] [address] Care Team Providers Care Supervisor Travel Information Center Name Role Phone Name, Eddie GILMORE Primary Care Provider [phone] Reason for Visit * Reason Comments Med Refill Encounter Details Date Type Department Care Team (Late Contact Info) Description 01/04/[address] [facility] MEDICINE [address] [place] [address] Name, MD Eddie [address] [place] [address] Gastroesophageal reflux disease, unspecified whether esophagitis present [...] Description 07/16/2025 10:45 AM EST Office Visit [facility] MEDICINE [address] [place] [address] Name, [place] [address] 08/01/2025 9:[address] [facility] MEDICINE [address] [place] [address] 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 RN documented as of this encounter Visit Diagnoses Diagnosis Gastroesophageal reflux disease, unspecified whether esophagitis present documented in this encounter Additional Health Concerns Assessment Noted Time PHQ-9 Depression Total Score: 10 023 1:16 PM EDT documented as of this encounter Care Teams Supervisor Travel Information Center Relationship Specialty Start Date End Date Name, [place] [address] PCP - General Family Medicine 09/16/15 [place] [facility] 07/01/24 documented as of this encounter
--- OUTSIDE RECORDS SUMMARY | 2025-05-07 19:18 | XMS_ITS | Encounter Summary ---
Author Organization [employer] Address [address] [place] [address] 7 [place] [address] Care Team Providers Care Filleter Name Role Phone Name, Eddie GILMORE Primary Care Provider [phone] Reason for Visit * Reason Comments Med Refill Encounter Details Date Type Department Care Team (Late Contact Info) Description 12/01/2022 Refill [facility] MEDICINE 230 [place], [place] [phone] Name, MD Eddie 230 [place] [address] Controlled type 2 diabetes mellitus with complication, without long-term current use of insulin ([facility]) Social History Tobacco Use Types [...] Description 07/16/2025 10:45 AM EST Office Visit [address] [address] Name, [place] [address] 08/01/2025 9:30 AM EST Telemedicine [address] [address] 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 RN documented as of this encounter Visit Diagnoses Diagnosis Controlled type 2 diabetes mellitus with complication, without long-term current use of insulin (HCC) documented in this encounter Additional Health Concerns Assessment Noted Time PHQ-9 Depression Total Score: 10 023 1:16 PM EDT documented as of this encounter Care Teams Filleter Relationship Specialty Start Date End Date Name, MD Eddie Felix [facility] [place] [address] PCP - General Family Medicine 09/16/15 [place] [facility] 07/01/24 documented as of this encounter
--- OUTSIDE RECORDS SUMMARY | 2025-05-07 19:18 | XMS_ITS | Encounter Summary ---
Author Organization [employer] Address [address] [place] [address] 7 [place] [address] Care Team Providers Care Nurse Case Manager Name Role Phone Name, Eddie GILMORE Primary Care Provider [phone] Reason for Visit * Reason Comments Med Refill Encounter Details Date Type Department Care Team ([facility] st Contact Info) Description 05/08/2023 Refill [facility] MEDICINE 230 [place], [place] [phone] Name, MD Eddie 230 [place] [address] Chronic pain syndrome Social History Tobacco Use [...] Description 07/16/2025 10:45 AM EST Office Visit [facility] MEDICINE [address] [place] [address] Name, MD Eddie [address] [place] [address] 08/01/2025 9:30 AM EST Telemedicine [facility] MEDICINE [address] [place] [address] 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, JULY documented as of this encounter Visit Diagnoses Diagnosis Chronic pain syndrome documented in this encounter Additional Health Concerns Assessment Noted Time PHQ-9 Depression Total Score: 10 023 1:16 PM EDT documented as of this encounter Care Teams Nurse Case Manager Relationship Specialty Start Date End Date Eddie Marshall MD [address] [place] [address] PCP - General Family Medicine 09/16/15 [facility] 07/01/24 documented as of this encounter
--- OUTSIDE RECORDS SUMMARY | 2025-05-07 19:18 | XMS_ITS | Encounter Summary ---
Author Organization [employer] Address [address] [place] [address] 7 [place] [address] Care Team Providers Care Insole Coverer Name Role Phone Name, Eddie GILMORE Primary Care Provider Reason for Visit * Reason Onset Date Comments Referral 02/02/2023 Back dated refer ral Encounter Details Date Type Department Care Team ([facility] st Contact Info) Description 02/02/2023 Telephone [facility] MEDICINE 230 [place], [place] [phone] Name, MD Eddie [address] [place] [address] Referral (Back dated referral ) Social History [...] 1:40 PM EDT Tc from Kasie at [facility] requesting status on message below regarding referral. Fax number [phone]. Any questions please call [phone] * Telephone Encounter - Amber Roger RN - 02/03/2023 10:34 AM EDT Please review message below regarding backdated referral for these dates * Telephone Encounter - Laure Mcgill - 02/02/2023 2:07 PM EDT Tc from Kasie at [facility] calling in regards to referral needing to be back dated. Patient was seen at the office on 01/03/23 and 01/11/23. Fax number [phone]. Any questions please call [phone]. documented in this encounter Plan of Treatment Upcoming Encounters Date Type Department Care Team (Late st Contact Info) Description 07/16/2025 10:45 AM EST Office Visit [address] [address] Name, MD Eddie [address] [place] [address] 08/01/2025 9:30 AM EST Telemedicine [address] [address] 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, JULY documented as of this encounter Visit Diagnoses Not on filedocumented in this encounter Additional Health Concerns Assessment Noted Time PHQ-9 Depression Total Score: 10 023 1:16 PM EDT documented as of this encounter Care Teams Insole Coverer Relationship Specialty Start Date End Date Name, MD Eddie [address] [place] [address] PCP - General Family Medicine 09/16/15 [place] [facility] 07/01/24 documented as of this encounter
--- OUTSIDE RECORDS SUMMARY | 2025-05-07 19:18 | XMS_ITS | Encounter Summary ---
Author Organization [employer] Address [address] [place] [address] 7 [place] [address] Care Team Providers Care Coffee Sommelier Name Role Phone Name, Eddie GILMORE Primary Care Provider [phone] Reason for Visit * Reason Onset Date Comments Medication Question 09/01/2023 Encounter Details Date Type Department Care Team ([facility] st Contact Info) Description 09/01/2023 Telephone [facility] MEDICINE [address] [place], [place] [phone] Name, MD Eddie [address] [place] [address] Medication Question Social History Tobacco Use Types [...] an add on. Please contact pharmacy at [phone]. documented in this encounter Plan of Treatment Upcoming Encounters Date Type Department Care Team (Late st Contact Info) Description 07/16/2025 10:45 AM EST Office Visit [facility] [place] [address] Name, [place] [address] 08/01/2025 9:30 AM EST Telemedicine [facility] [place] [address] 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 RN documented as of this encounter Visit Diagnoses Not on filedocumented in this encounter Additional Health Concerns Assessment Noted Time PHQ-9 Depression Total Score: 10 023 1:16 PM EDT documented as of this encounter Care Teams Coffee Sommelier Relationship Specialty Start Date End Date Name, [place] [address] PCP - General Family Medicine 09/16/15 [place] A 07/01/24 documented as of this encounter
== END 2025-05-07 10:08 | disposition home or self-care (01) ==
LOC: HO.LAB 10:07
PROVIDERS: Absent Provider Internal Medicine Geriatric Medicine; PCP Internal Medicine Geriatric Medicine; Visit Provider Nurse Practitioner Family
DX: E03.9 Hypothyroidism, unspecified (principal); D64.9 Anemia, unspecified
CPT/HCPCS: 36415; 80053; 82728; 84443; 85025; 96372; J0897

== ENCOUNTER 2025-05-07 10:45 | Outpatient (AMB) | payer OTHER, SELFPAY ==
--- NOTE | 2025-05-07 11:35 | AM.OFFVISNUR ---
Intake Visit Reasons: Prolia Allergies Latex, Natural Rubber Allergy (Intermediate, Verified 04/21/25 11:38) Rash scallops Allergy (Unknown, Verified 04/21/25 11:38) Unknown Office Meds Prolia 60 mg/mL subcutaneous syringe Performing Provider: Bucky Velasquez MD Performing Location: [facility] Administered by: Jodi Vernon RN on 05/07/25 11:15 Dose Route Admin Location Dispensed Lot Number Expiration Date ND Industrial Illuminating Engineer 60 mg subcut Left upper arm 1 mL [id number] 06/18/27 35973-994-90 [employer] Total Dispensed Waste 1 mL 0 % Comments: Pt accompanied by son Raymundo. Pt tolerated injection well. Pt advised of the following, Common side effects of Prolia include: muscle and joint aches and pains low calcium level which may happen if calcium and vitamin D intake is inadequate. So please take calcium and vitamin D regularly. skin rash/reactions at the site: Redness, swelling should resolve over time Slight bump that resolves over time Very rare side effects include osteonecrosis of the jaw and femur fractures. Pt advised to call the office if she starts to experience any side effects listed above. Pt advised that this medication is given every 6 months and she need to complete labs about 2 weeks prior to receiving the injection. Pt had no further questions at this time. Assessment & Plan Assessment & Plan Orders: Orders AMB Denosumab Injection Practice Supplied Today M81.0 - Age-related osteoporosis without current pathological fracture Coding
== END 2025-05-07 11:31 | disposition home or self-care (01) ==
PROVIDERS: PCP Internal Medicine Geriatric Medicine; Visit Provider Internal Medicine Endocrinology, Diabetes & Metabolism
DX: M81.0 Age-related osteoporosis without current pathological fracture (principal)

== ENCOUNTER 2025-06-11 08:15 | Outpatient (AMB) | payer MEDICARE, SELFPAY ==
--- OUTSIDE RECORDS SUMMARY | 2025-06-08 23:59 | XMS_ITS | Continuity of Care Document ---
Author Organization [facility] Address [address], [address] [place] [address]- Care Team Providers Care Hyperbaric Technologist Name Role Phone Name Eddie GILMORE Primary [facility] Physician [id number]s): [facility]/09[facility]25 - 06/08/25 [facility] [address], [address] [place] [address]- Encounter Type: Triage Allergies, Adverse Reactions, Alerts Substance Criticality Severity Reaction Reaction Severity Status Other Food Allergy scallops A ctive Glutens Resolved Latex ekg stickies cu sed bleeding on skin after several days Active Pollen runny nose Active Medications Advair HFA 115 mcg / 21 mcg 2 inhalation, Inhalation, 2 times a day, 0 Refills, Maintenance, 12/25/24 10:18:00 AM EDT, Partial fill upon patient request if the prescription is for a schedule II opioid drug. Start Date: 12/25/24 Status: Ordered Medication Dispense Status: Completed Total Allowed Fills: 1 Fills Dispensed: 0 amLODIPine 2.5 mg oral tablet 2.5 mg, 1, tablet, By Mouth, Daily in AM, # 30 tablet, Refills 0, Maintenance, 04/20/21 1:27:00 PM EDT, Partial fill upon patient request if the prescription is for a schedule II opioid drug. Start Date: 04/20/21 Status: Ordered Medication Dispense Status: Completed Quantity: 30.0 Unit: tablet Total Allowed Fills: 1 Fills Dispensed: 0 arnica topical gel 1 application, Topically, 2 times a day, PRN as needed for muscle pain, # 45 Gm, 0 Refills, Maintenance, 06/02/22 8:41:00 AM EST, Gel, Partial fill upon patient request if the prescription is for a schedule II opioid drug. Start Date: 06/02/22 Status: Ordered Medication Dispense Status: Completed Quantity: 45.0 Unit: g Total Allowed Fills: 1 Fills Dispensed: 0 atorvastatin 40 mg oral tablet 1 tablet = 40 mg, By Mouth, Daily in AM, 0 Refills, Maintenance, 06/28/22 11:03:00 AM EST, Partial fill upon patient request if the prescription is for a schedule II opioid drug. Start Date: 06/28/22 Status: Ordered Medication Dispense Status: Completed Total Allowed Fills: 1 Fills Dispensed: 0 Benefiber = 4 Gm, By Mouth, Daily, 0 Refills, Maintenance, 07/24/24 11:23:00 AM EST, Partial fill upon patient request if the prescription is for a schedule II opioid drug. Start Date: 07/24/24 Status: Ordered Medication Dispense Status: Completed Total Allowed Fills: 1 Fills Dispensed: 0 Betamethasone Valerate 0.1% Topical 1 application, Topically, 2 times a day, PRN Other, 0 Refills, Maintenance, Cream Start Date: 06/02/22 Status: Ordered Medication Dispense Status: Completed Total Allowed Fills: 1 Fills Dispensed: 0 biotin 5000 mcg oral capsule By Mouth, Daily, 0 Refills, Maintenance, 06/02/22 8:44:00 AM EST, Partial fill upon patient requestif the prescription is for a schedule II opioid drug. Start Date: 06/02/22 Status: Ordered Medication Dispense Status: Completed Total Allowed Fills: 1 Fills Dispensed: 0 Calcium Chloride \60 mg, By Mouth, Daily, 0 Refills, Maintenance Start Date: 01/19/24 Status: Ordered Medication Dispense Status: Completed Total Allowed Fills: 1 Fills Dispensed: 0 clopidogrel 75 mg oral tablet 75 mg, 1, tablet, By Mouth, Daily in AM, # 30 tablet, Refills 0, Maintenance, 06/23/23 4:38:00 PM EST, Partial fill upon patient request if the prescription is for a schedule II opioid drug. Start Date: 06/23/23 Status: Ordered Medication Dispense Status: Completed Quantity: 30.0 Unit: tablet Total Allowed Fills: 1 Fills Dispensed: 0 Famotidine = 40 mg, By Mouth, Daily, 0 Refills, Maintenance, 01/19/24 12:36:00 PM EDT, Partial fill upon patientrequest if the prescription is for a schedule II opioid drug. Start Date: 01/19/24 Status: Ordered Medication Dispense Status: Completed Total Allowed Fills: 1 Fills Dispensed: 0 ferrous sulfate 325 mg oral tablet 1 tablet = 325 mg, By Mouth, Daily, # 90 tablet, 0 Refills, Maintenance, 04/19/22 8:22:00 AM EDT, Tablet, Partial fill upon patient request if the prescription is for a schedule II opioid drug. Start Date: 04/19/22 Status: Ordered Medication Dispense Status: Completed Quantity: 90.0 Unit: tablet Total Allowed Fills: 1 Fills Dispensed: 0 Imodium Capsule 2 mg, By Mouth, Every 3 hours, PRN, Refills 0, Maintenance, Loose Stool, 06/02/22 8:43:00 AM EST, Partial fill upon patient request if the prescription is for a schedule II opioid drug. Start Date: 06/02/22 Status: Ordered Medication Dispense Status: Completed Total Allowed Fills: 1 Fills Dispensed: 0 Latanoprost Ophthalmic 1 drop, Eyes, Both, Daily at bedtime, 0 Refills, Maintenance, 08/17/20 4:53:00 PM EST, Partial fill upon patient request if the prescription is for a schedule II opioid drug. Start Date: 08/17/20 Status: Ordered Medication Dispense Status: Completed Total Allowed Fills: 1 Fills Dispensed: 0 levETIRAcetam 750 mg oral tablet 1 tablet = 750 mg, By Mouth, 2 times a day, 0 Refills, Maintenance, 10/26/22 11:12:00 AM EDT, Partial fill upon patient request if the prescription is for a schedule II opioid drug. Start Date: 10/26/22 Status: Ordered Medication Dispense Status: Completed Total Allowed Fills: 1 Fills Dispensed: 0 levothyroxine 112 mcg (0.112 mg) oral capsule 1 capsule = 112 mcg, By Mouth, Daily, 0 Refills, Maintenance, 10/06/21 9:22:00 AM EDT, Partial fill upon patient request if the prescription is for a schedule II opioid drug. Start Date: 10/06/21 Status: Ordered Medication Dispense Status: Completed Total Allowed Fills: 1 Fills Dispensed: 0 Magnesium Oxide = 500 mg, By Mouth, Daily at bedtime, 0 Refills, Maintenance, 07/24/24 11:21:00 AM EST, Partial fill upon patient request if the prescription is for a schedule II opioid drug. Start Date: 07/24/24 Status: Ordered Medication Dispense Status: Completed Total Allowed Fills: 1 Fills Dispensed: 0 melatonin 10 mg oral capsule 1 capsule = 10 mg, By Mouth, Daily at bedtime, 0 Refills, Maintenance, 04/20/21 1:31:00 PM EDT, Partial fill upon patient request if the prescription is for a schedule II opioid drug. Start Date: 04/20/21 Status: Ordered Medication Dispense Status: Completed Total Allowed Fills: 1 Fills Dispensed: 0 metFORMIN 500 mg oral tablet 1 tablet = 500 mg, By Mouth, 2 times a day, with meals, # 30 tablet, 0 Refills, Maintenance, 04/20/21 1:31:00 PM EDT, Tablet, Partial fill upon patient request if the prescription is for a schedule IIopioid drug. Start Date: 04/20/21 Status: Ordered Medication Dispense Status: Completed Quantity: 30.0 Unit: tablet Total Allowed Fills: 1 Fills Dispensed: 0 Milk Thistle 1 capsule, By Mouth, Daily, 0 Refills, Maintenance, 04/20/21 1:32:00 PM EDT, Partial fill upon patient request if the prescription is for a schedule II opioid drug. Start Date: 04/20/21 Status: Ordered Medication Dispense Status: Completed Total Allowed Fills: 1 Fills Dispensed: 0 Miscellaneous Rx qasim 2 capsules, By Mouth, Daily, 0 Refills, Maintenance, 01/19/24 12:42:00 PM EDT Start Date: 01/19/24 Status: Ordered Medication Dispense Status: Completed Total Allowed Fills: 1 Fills Dispensed: 0 Miscellaneous Rx cranberry pills 1 pill, By Mouth, 2 times a day, 0 Refills, Maintenance, 01/19/24 12:43:00 PM EDT Start Date: 01/19/24 Status: Ordered Medication Dispense Status: Completed Total Allowed Fills: 1 Fills Dispensed: 0 Myrbetriq 50 mg oral tablet, extended release See Instructions, TAKE ONE TABLET BY MOUTH EVERY DAY DO NOT CRUSH OR CHEW Myrbetriq NO SUBSTITUTIONS. NO GENERIC., # 30 tablet, 11 Refills, Maintenance, 03/11/25 3:28:00 PM EDT, [id number], 157, cm, 07/29/24 20:06:00 EST, Height, 58, kg, 07/29/24 18:41:00 EST, Dry Weight Start Date: 03/11/25 Status: Ordered Medication Dispense Status: Completed Quantity: 30.0 Unit: tablet Total Allowed Fills: 12 Fills Dispensed: 0 Omeprazole = 20 mg, By Mouth, 2 times a day, 0 Refills, Maintenance, 07/24/24 11:22:00 AM EST, Partial fill uponpatient request if the prescription is for a schedule II opioid drug. Start Date: 07/24/24 Status: Ordered Medication Dispense Status: Completed Total Allowed Fills: 1 Fills Dispensed: 0 pantoprazole 40 mg oral delayed release tablet 1 tablet = 40 mg, By Mouth, Daily in AM, # 30 tablet, 0 Refills, Maintenance, 06/23/23 4:29:00 PM EST, EC Tablet Start Date: 06/23/23 Status: Ordered Medication Dispense Status: Completed Quantity: 30.0 Unit: tablet Total Allowed Fills: 1 Fills Dispensed: 0 Percocet 5 mg-325 mg oral tablet 1, tablet, By Mouth, 3 times a day, Refills 0, Tot. Refills 0, Maintenance, 07/24/24 11:22:00 AM EST,Partial fill upon patient request if the prescription is for a schedule II opioid drug. Start Date: 07/24/24 Status: Ordered Medication Dispense Status: Completed Total Allowed Fills: 1 Fills Dispensed: 0 simethicone 80 mg oral tablet, chewable 80 mg, 1, tablet, 3 times a day, PRN, Refills 0, Maintenance, Indigestion, 06/02/22 8:44:00 AM EST,Partial fill upon patient request if the prescription is for a schedule II opioid drug. Start Date: 06/02/22 Status: Ordered Medication Dispense Status: Completed Total Allowed Fills: 1 Fills Dispensed: 0 Systane ophthalmic solution 1 drops, Eyes, Both, 2 times a day, PRN for dry eyes, # 5 mL, 0 Refills, Maintenance, 04/19/22 10:19:00 PM EDT, Solution, Partial fill upon patient request if the prescription is for a schedule II opioid drug. Start Date: 04/19/22 Status: Ordered Medication Dispense Status: Completed Quantity: 5.0 Unit: mL Total Allowed Fills: 1 Fills Dispensed: 0 traZODone 50 mg oral tablet 50 mg, 1, tablet, By Mouth, Refills 0, Maintenance, 12/25/24 10:17:00 AM EDT, Partial fill upon patient request if the prescription is for a schedule II opioid drug. Start Date: 12/25/24 Status: Ordered Medication Dispense Status: Completed Total Allowed Fills: 1 Fills Dispensed: 0 trospium 60 mg oral capsule, extended release See Instructions, TAKE 1 CAPSULE BY MOUTH IN THE EVENING., # 28 capsule, 0 Refills, Maintenance, 06/06/25 5:20:00 PM EST, [facility], 157, cm, 04/29/25 13:28:00 EST, Height, 58, kg, 07/29/24 18:41:00 EST, Dry Weight Start Date: 06/06/25 Status: Ordered Medication Dispense Status: Completed Quantity: 28.0 Unit: capsule Total Allowed Fills: 1 Fills Dispensed: 0 Tylenol 8 Hour 650 mg oral tablet, extended release 2 tablet = 1,300 mg, By Mouth, Every 8 hours, PRN as needed for pain, # 24 tablet, 0 Refills, Maintenance, 04/19/22 8:22:00 AM EDT, ER Tablet, Partial fill upon patient request if the prescription is for a schedule II opioid drug. Start Date: 04/19/22 Status: Ordered Medication Dispense Status: Completed Quantity: 24.0 Unit: tablet Total Allowed Fills: 1 Fills Dispensed: 0 Ventolin HFA 108 mcg/inh inhalation aerosol with adapter 1 puffs, Inhalation, 4 times a day, PRN for wheezing, # 18 Gm, 0 Refills, Maintenance, 01/11/16 1:39:59 PM EDT, Aerosol Start Date: 01/11/16 Status: Ordered Medication Dispense Status: Completed Quantity: 18.0 Unit: g Total Allowed Fills: 1 Fills Dispensed: 0 Vitamin C = 500 mg, By Mouth, Daily, 0 Refills, Maintenance, 07/24/24 11:24:00 AM EST, Partial fill upon patient request if the prescription is for a schedule II opioid drug. Start Date: 07/24/24 Status: Ordered Medication Dispense Status: Completed Total Allowed Fills: 1 Fills Dispensed: 0 Vitamin D Vitamin D, 0 Refills, Maintenance, 12/25/24 10:17:00 AM EDT Start Date: 12/25/24 Status: Ordered Medication Dispense Status: Completed Total Allowed Fills: 1 Fills Dispensed: 0 Vitamin E = 400 International_Units, By Mouth, Daily, 0 Refills, Maintenance, 04/20/21 1:43:00 PM EDT, Partialfill upon patient request if the prescription is for a schedule II opioid drug. Start Date: 04/20/21 Status: Ordered Medication Dispense Status: Completed Total Allowed Fills: 1 Fills Dispensed: 0 zinc (as acetate) 50 mg oral capsule 1 capsule = 50 mg, By Mouth, 3 times a day, 0 Refills, Maintenance, 10/06/21 9:23:00 AM EDT, Partialfill upon patient request if the prescription is for a schedule II opioid drug. 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 Smoking Status Never (less than 100 in lifetime) entered on: 03/17/20 Sex Sex Representation Female (finding) Patient Care team information Care Team Personnel Name: Henrietta Rodríguez RN Position: [facility] Office Staff Member Role: Primary Care Nurse Name: Ria Osuna RN Position: [facility] RN Member Role: Primary Care Nurse Name: Eddie Marshall MD Position: S Outreach Member Role: PCP Address: [address] [place] [address] Telecom: Name: Julianne Husain RN Position: [facility] RN Supv Member Role: Primary Care Nurse Name: Cristal Lee Position: [facility] Outreach Member Role: Lifetime Consulting Physician Name: Johanne Perez RN Position: [facility] RN Member Role: Primary Care Nurse Care Team Related Persons Name: KALIA BRAUN Insurance Providers Guarantor name: EARNEST JESSICA [facility] [facility] Information #: 1 Payer: [facility] Payer Identifier: NA Member Number: [id number] Group Number: [id number] Subscriber Identifier: NA Relationship to Subscriber: self Coverage Type: Medicare Managed Care (Includes Medicare Advantage Plans) Coverage Verification Date: NA Telecom: NA Address: NA
--- OUTSIDE RECORDS SUMMARY | 2025-06-11 08:19 | XMS_ITS | Encounter Summary ---
Author Organization [employer] Address [address] [place] [address] [place] [address] Care Team Providers Care Shearer Screen Measurer And Trimmer Name Role Phone Name, Eddie GILMORE Primary Care Provider [phone] Reason for Visit * Reason Onset Date Comments Hospital Follow-up 11/10/2022 Encounter Details Date Type Department Care Team (Late st Contact Info) Description 11/10/[address] [facility] MEDICINE [address] [place] [address] [phone] Name, MD Eddie [address] [place] [address] Social History Tobacco Use Types Packs/Day Years [...] Jackman Sent: 11/21/2022 5:23 PM EDT To: [facility] Team Nurses Hi team! Sent this pt to the ED over the weekend for Hgb 7. Got admitted and looks like recently discharged. Can you please outreach her for status check and sched HDF w/ DrRod Name? Thank you!! * Telephone Encounter - Suzette Singh RN - 11/22/2022 11:10 AM EDT T/C to [phone] to schedule HDF apt. No answer. LVM to call back on [phone]. ----- Message from Amber Roger RN sent at 11/22/2022 9:06 AM EDT ----- ----- Message ----- From: DENIS Jackman Sent: 11/21/2022 5:23 PM EDT To: [facility] Team Nurses Hi team! Sent this [...] Description 07/16/2025 10:45 AM EST Office Visit [address] [address] Name, MD Eddie [address] [place] [id number] 08/01/2025 9:30 AM EST Telemedicine [address] [address] 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, JULY documented as of this encounter Visit Diagnoses Not on filedocumented in this encounter Care Teams Shearer Screen Measurer And Trimmer Relationship Specialty Start Date End Date NameEddie MD [address] [place] [phone] PCP - General Family Medicine 09/16/15 [place] SEN 07/01/24 documented as of this encounter
--- OUTSIDE RECORDS SUMMARY | 2025-06-11 08:19 | XMS_ITS | Encounter Summary ---
Author Organization [employer] Address [address] [place] [address] 7 [place] [address] Care Team Providers Care Waxer Operator Name Role Phone Name, Eddie GILMORE Primary Care Provider [phone] Reason for Visit * Reason Onset Date Comments Medication Question 09/05/2023 Encounter Details Date Type Department Care Team ([facility] st Contact Info) Description 09/05/2023 Telephone [facility] MEDICINE [address] [place], [place] [phone] Name, MD Eddie [address] [place] [address] Medication Question Social History Tobacco Use Types [...] Description 07/16/2025 10:45 AM EST Office Visit [facility] MEDICINE [address] [place] [phone] Name, MD Eddie [address] [place] [address] 08/01/2025 9:30 AM EST Telemedicine [facility] MEDICINE [address] [place] [phone] 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 RN documented as of this encounter Visit Diagnoses Not on filedocumented in this encounter Additional Health Concerns Assessment Noted Time PHQ-9 Depression Total Score: 10 11/28/ 023 1:16 PM EDT documented as of this encounter Care Teams Waxer Operator Relationship Specialty Start Date End Date Name, MD Eddie [address] [facility] [place] [address] PCP - General Family Medicine 09/16/15 [place] SEN 07/01/24 documented as of this encounter
--- OUTSIDE RECORDS SUMMARY | 2025-06-11 08:19 | XMS_ITS | Encounter Summary ---
Author Organization [employer] Address [address] [place] [address] 7 [place] [address] Care Team Providers Care Chief Underwriter Name Role Phone Name, Eddie GILMORE Primary Care Provider [phone] Reason for Visit * Reason Onset Date Comments Med Refill 12/11/2024 Encounter Details Date Type Department Care Team ([facility] st Contact Info) Description 12/11/2024 Telephone [facility] MEDICINE [address] [place], [place] [phone] Name, MD Eddie [address] [place] [address] Med Refill Social History Tobacco Use Types [...] Verio) test strip Lancets (OneTouch Delica Plus [id number]) [facility] levothyroxine (Synthroid, Levoxyl) 112 MCG tablet magnesium oxide 500 MG tablet melatonin 5 MG tablet traZODone (Desyrel) 50 MG tablet To be sent to: [facility] [address] [place] [address] documented in this encounter Plan of Treatment Upcoming Encounters Date Type Department Care Team ([facility] st Contact Info) Description 07/16/2025 10:45 AM EST Office Visit [facility] MEDICINE [address] [place] [phone] Name, MD Eddie [address] [place] [address] 08/01/2025 9:30 AM EST Telemedicine [facility] MEDICINE [address] [place] [address] 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, RN documented as of this encounter Visit Diagnoses Not on filedocumented in this encounter Additional Health Concerns Assessment Noted Time PHQ-9 Depression Total Score: 9 05/10/20 24 11:56 AM EST documented as of this encounter Care Teams Chief Underwriter Relationship Specialty Start Date End Date Name, [place] [address] PCP - General Family Medicine 09/16/15 [place] [facility] 07/01/24 documented as of this encounter
--- OUTSIDE RECORDS SUMMARY | 2025-06-11 08:19 | XMS_ITS | Encounter Summary ---
Author Organization [employer] Address [address] [place] [address] 7 [place] [address] Care Team Providers Care Radiation Protection Technician Name Role Phone Name, Eddie GILMORE Primary Care Provider [phone] Reason for Visit * Reason Comments Med Refill Encounter Details Date Type Department Care Team (Late Contact Info) Description 02/26/2023 Refill [facility] MEDICINE [address] [place] [address] [phone] Name, MD Eddie [address] [place] [address] [phone] Chronic pain syndrome Social History Tobacco Use [...] Description 07/16/2025 10:45 AM EST Office Visit [facility] MEDICINE [address] [place] [address] [phone] NameEddie MD [address] [place] [address] [phone] 08/01/2025 9:30 AM EST Telemedicine [facility] MEDICINE [address] [facility] [place] [address] 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, RN documented as of this encounter Visit Diagnoses Diagnosis Chronic pain syndrome documented in this encounter Additional Health Concerns Assessment Noted Time PHQ-9 Depression Total Score: 10 023 1:16 PM EDT documented as of this encounter Care Teams Radiation Protection Technician Relationship Specialty Start Date End Date Name, MD Eddie [address] [facility] [place] [address] PCP - General Family Medicine 09/16/15 [place] A 07/01/24 documented as of this encounter
--- OUTSIDE RECORDS SUMMARY | 2025-06-11 08:19 | XMS_ITS | Encounter Summary ---
Author Organization [employer] Address [address] [place] [address] 7 [place] [address] Care Team Providers Care Sheet Cutting Operator Name Role Phone Name, Eddie GILMORE Primary Care Provider [phone] Encounter Details Date Type Department Care Team ([facility] Contact Info) Description 11/18/[address] [phone] NameEddie MD [address] [place] [address] [phone] Social History Tobacco Use Types Packs/Day Years [...] Upcoming Encounters Date Type Department Care Team ([facility] Contact Info) Description 07/16/2025 10:45 AM EST Office Visit [address] [address] Name, MD Eddie [address] [place] [address] [phone] 08/01/2025 9:30 AM EST Telemedicine [facility] MEDICINE [address] [place] [address] 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, RN documented as of this encounter Visit Diagnoses Not on filedocumented in this encounter Care Teams Sheet Cutting Operator Relationship Specialty Start Date End Date Name, MD Eddie [address] [place] [address] PCP - General Family Medicine 09/16/15 [place] [facility] 07/01/24 documented as of this encounter
--- OUTSIDE RECORDS SUMMARY | 2025-06-11 08:19 | XMS_ITS | Encounter Summary ---
Author Organization [employer] Address [address] [place] [address] [place] [address] Care Team Providers Care Fuel System Maintenance Worker Name Role Phone Name, Eddie GILMORE Primary Care Provider [phone] Reason for Visit * Reason Comments Med Refill Encounter Details Date Type Department Care Team (Late st Contact Info) Description 01/29/2023 Refill [facility] [address] [place] [address] [phone] Farhana Singh FNP Social History Tobacco Use [...] Description 07/16/2025 10:45 AM EST Office Visit [facility] [address] [place] [address] [phone] Name, MD Eddie [address] [place] [address] 08/01/2025 9:30 AM EST Telemedicine [facility] [address] [place] [address] [phone] Yaneth, Kaleigh, RN documented as of this encounter Visit Diagnoses Not on filedocumented in this encounter Additional Health Concerns Assessment Noted Time PHQ-9 Depression Total Score: 10 023 1:16 PM EDT documented as of this encounter Care Teams Fuel System Maintenance Worker Relationship Specialty Start Date End Date Name, MD Eddie [address] [place] [address] PCP - General Family Medicine 09/16/15 [facility] 07/01/24 documented as of this encounter
--- OUTSIDE RECORDS SUMMARY | 2025-06-11 08:19 | XMS_ITS | Encounter Summary ---
Author Organization [employer] Address [address] [place] [address] 7 [place] [address] Care Team Providers Care Pediatric Dietician Name Role Phone Name, Eddie GILMORE Primary Care Provider [phone] Reason for Visit * Reason Comments Med Refill Encounter Details Date Type Department Care Team ([facility] st Contact Info) Description 05/08/2023 Refill [facility] [address] [place], [place] [phone] Name, MD Eddie [address] [place] [address] Chronic pain syndrome Social History Tobacco Use [...] Description 07/16/2025 10:45 AM EST Office Visit [facility] [address] [place] [address] Name, MD Eddie [address] [place] [address] 08/01/2025 9:30 AM EST Telemedicine [facility] [address] [place] [address] 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, JULY documented as of this encounter Visit Diagnoses Diagnosis Chronic pain syndrome documented in this encounter Additional Health Concerns Assessment Noted Time PHQ-9 Depression Total Score: 10 023 1:16 PM EDT documented as of this encounter Care Teams Pediatric Dietician Relationship Specialty Start Date End Date Eddie Marshall MD [address] [place] [address] PCP - General Family Medicine 09/16/15 [facility] 07/01/24 documented as of this encounter
--- OUTSIDE RECORDS SUMMARY | 2025-06-11 08:19 | XMS_ITS | Encounter Summary ---
Author Organization [employer] Address [address] [facility] 7t [place] [address] Care Team Providers Care Recreation Therapy Teacher Name Role Phone Name, Eddie GILMORE Primary Care Provider [phone] Reason for Visit * Reason Comments Med Refill Encounter Details Date Type Department Care Team ([facility] st Contact Info) Description 06/06/2025 Refill [facility] [address] [place], [place] [phone] Name, MD Eddie [address] [place] [address] Social History Tobacco Use Types Packs/Day Years [...] Description 07/16/2025 10:45 AM EST Office Visit [address] [address] Name, MD Eddie [address] [place] [address] 08/01/2025 9:30 AM EST Telemedicine [address] [address] 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 RN documented as of this encounter Goals Goal Patient Goal Type Associated Problems Recent Progress Patient-Stated? Author Help patients manage their type 2 diabetes Care Plan Help patients manage their type 2 diabetes No Diana Babb Weekly blood pressure task Care Plan Weekly blood pressure task No Diana Babb Help patients manage their type 2 diabetes Care Plan Help patients manage their type 2 diabetes No Diana Babb Patient has chronic kidney disease Care Plan Patient has chronic kidney disease No Diana Babb Weekly blood pressure task Care Plan Weekly blood pressure task No Diana Babb Patient has chronic kidney disease Care Plan Patient has chronic kidney disease No Diana Babb documented as of this encounter Visit Diagnoses Not on filedocumented in this encounter Additional Health Concerns Active Problems Noted Date Diagnosed Date Help patients manage their type 2 diabetes 05/22 Weekly blood pressure task 05/22/2025 Help patients manage their type 2 diabetes 05/22 Patient has chronic kidney disease 05/22/2025 Weekly blood pressure task 05/22/2025 Patient has chronic kidney disease 05/22/2025 Assessment Noted Time PHQ-9 Depression Total Score: 9 05/10/20 24 11:56 AM EST documented as of this encounter Care Teams Recreation Therapy Teacher Relationship Specialty Start Date End Date Name, MD Eddie [address] [place] [address] PCP - General Family Medicine 09/16/15 [place] [facility] 07/01/24 documented as of this encounter
--- OUTSIDE RECORDS SUMMARY | 2025-06-11 08:19 | XMS_ITS | Encounter Summary ---
Author Organization [employer] Address [address] [place] [address] 7 [place] [address] Care Team Providers Care Dial Maker Name Role Phone Name, Eddie GILMORE Primary Care Provider [phone] Reason for Visit * Reason Onset Date Comments Medication Question 09/01/2023 Encounter Details Date Type Department Care Team ([facility] st Contact Info) Description 09/01/2023 Telephone [facility] [address] [place], [place] [phone] Name, MD Eddie [address] [place] [address] Medication Question Social History Tobacco Use Types [...] an add on. Please contact pharmacy at [phone]. documented in this encounter Plan of Treatment Upcoming Encounters Date Type Department Care Team (Late st Contact Info) Description 07/16/2025 10:45 AM EST Office Visit [facility] [place] [address] Name, [place] [address] 08/01/2025 9:30 AM EST Telemedicine [facility] [place] [address] Kaeligh Wolfe RN documented as of this encounter Visit Diagnoses Not on filedocumented in this encounter Additional Health Concerns Assessment Noted Time PHQ-9 Depression Total Score: 10 023 1:16 PM EDT documented as of this encounter Care Teams Dial Maker Relationship Specialty Start Date End Date Name, [place] [address] PCP - General Family Medicine 09/16/15 [place] [facility] 07/01/24 documented as of this encounter
--- OUTSIDE RECORDS SUMMARY | 2025-06-11 08:19 | XMS_ITS | Encounter Summary ---
Author Organization [employer] Address [address] [place] [address] 7 [place] [address] Care Team Providers Care Noc Analyst Name Role Phone Name, Eddie GILMORE Primary Care Provider [phone] Reason for Visit * Reason Onset Date Comments ER Follow-up 09/27/2024 Encounter Details Date Type Department Care Team ([facility] st Contact Info) Description 09/27/2024 Telephone [facility] [address] [place], [place] [phone] Name, MD Eddie [address] [place] [address] ER Follow-up Social History Tobacco Use Types [...] 07/16/2025 10:45 AM EST Office Visit [facility] [address] [place] [address] Name, MD Eddie [address] [place] [address] 08/01/2025 9:30 AM EST Telemedicine [facility] [address] [place] [address] 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, RN documented as of this encounter Visit Diagnoses Not on filedocumented in this encounter Additional Health Concerns Assessment Noted Time PHQ-9 Depression Total Score: 9 05/10/20 24 11:56 AM EST documented as of this encounter Care Teams Noc Analyst Relationship Specialty Start Date End Date Name, MD Eddie [address] [facility] [place] [address] PCP - General Family Medicine 09/16/15 [place] [facility] 07/01/24 documented as of this encounter
--- OUTSIDE RECORDS SUMMARY | 2025-06-11 08:19 | XMS_ITS | Clinical Summary ---
Author Organization [employer] Address [address] [place] [address] 7t [place] [address] Care Team Providers Care Multi Site Leasing Consultant Name Role Phone Name, Eddie GILMORE Primary Care Provider [phone] Allergies Active Allergy Reactions Criticality Noted Date [...] 06/02/20 22 Active Blood Glucose Monitoring Suppl (Brightstaruch Verio Flex System) w/Device kit USE DIRECTED [...] 12/12/19 25 Active Lancets (OneTouch Delica Plus [id number]) miscIndication s:Controlled type 2 diabetes mellitus with [...] day. 2.5 mL 3 12/17/19 25 Active albuterol 108 (90 Base) MCG/ACT inhaler INHALE 2 PUFFS BY MOUTH EVERY 4 TO 6 HOURS NEEDED 8.5 g 1 02/05/20 Active hydroCHLOROthi azide 12.5 MG tablet 02/14/20 [...] 03/12/20 25 Active melatonin 5 MG tablet TAKE (2) TABLETS BY MOUTH AT BEDTIME. 60 tablet 2 05/09/20 25 Active traZODone (Desyrel) 50 MG tablet TAKE 1 TABLET BY MOUTH DAILY AT BEDTIME 30 tablet 2 05/09/20 25 Active oxyCODONE-acet aminophen (Percocet) 5-325 MG tabletIndicati ons:Chronic pain syndrome Take 1 tablet by mouth every 8 (eight) hours if needed for severe pain for up to 28 days. Do not start before May 23, 2025. 84 tablet 05/23/20 25 026 Active atorvastatin (Lipitor) 40 MG tablet TAKE (1) TABLET BY MOUTH DAILY IN THE MORNING 30 tablet 11 06/06/20 25 Active atorvastatin (Lipitor) 40 MG tablet TAKE 1 TABLET BY MOUTH EVERY MORNING 30 tablet 5 01/04/20 25 025 Discontinued oxyCODONE-acet aminophen (Percocet) 5-325 MG tabletIndicati ons:Chronic pain syndrome Take 1 tablet by mouth every 8 (eight) hours if needed for severe pain for up to 28 days. 84 tablet 04/25/20 25 025 Discontinued(R eorder (will not trigger [...] refer stat to ENT for cauterization, possible MUSIC DIRECTOR scope Recommend anterior nasal packing if she is bleeding heavily [facility] (current) use of opiate analgesic 03/20 Overview (02/11/2025): Dx: chronic pain syndrome/back pain Rx: Percocet 5/325 every 8 hours Last SPEECH THERAPIST EARLY INTERVENTION agreement:02/11/25 Tier II (visit every 3 months) [...] artery 06/16/2022 Controlled type 2 diabetes m kyraitus with complication, without long-term current use of insulin 06/16/2022 Stable angina 06/16/2022 CRISTINA (generalized anxiety disorder) 06/16/2022 GERD (gastroesophageal reflux disease) ST elevation (STEMI) myocardial infarction 06/16 Depressive disorder 06/16/2022 Presence of stent in LAD coronary artery 017 CVA (cerebral vascular accident) ([facility]) 11/16 Cerebellar infarction ([facility]) 01/18/2016 Overactive bladder 09/16/2015 Allergic rhinitis 10/21/2010 HTN (hypertension) 06/22/2007 Overview (06/16/2022): Meedications stopped 10/04/17 due to dizziness and hypotension symptoms Glaucoma 06/21/2005 Hyperlipidemia 06/21/2005 Hypothyroidism 06/21/2005 Overview (06/16/2022): S/p ANA for hyperthyroid state Resolved Problems Problem Noted Date Diagnosed Date Resolved Date Acute UTI 11/28/2022 05/14/2024 Chest pain 11/28/2022 02/05/2024 Preoperative cardiovascular examination 11/28/2022 02/05/2024 Encounters Date Type Department Care Team Description 06/06/2025 Refill [facility] [address] [place] [address] Eddie Marshall MD 05/22/2025 Refill [facility] [address] [place] [address] NameEddie MD Chronic pain syndrome 05/09/2025 Refill [facility] [address] [place] [address] NameEddie MD 05/07/2025 Orders Only GENERIC EXTERNAL DATA DEPARTMENT Provider, Generic External Data 04/25/2025 9:30 AM EST Telemedicine [facility] [address] [place] [address] 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 RN 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 (current) use of opiate analgesic 04/24/2025 Travel 04/24/2025 Telephone [facility] [address] [place] [address] Eddie Marshall MD Medication Question 04/24/2025 Refill [facility] [address] [place] [address] Eddie Marshall MD Chronic pain syndrome 04/22/2025 Refill [facility] [address] [place] [address] NameEddie MD 03/21/2025 Refill [facility] [address] [place] [address] Eddie Marshall MD Chronic pain syndrome 03/21/2025 Refill [facility] [address] [place] [address] Eddie Marshall MD 03/12/2025 Telephone [facility] [address] [place] [address] Eddie Marshall MD from Last 3 Months Immunizations Immunization Administration Dates Next Due Influenza injectable quadriv alent IIV4 with preservative 04/07/2016 Influenza, IIV3, injectable 03/23/2015,1 ,03/08/2013,04/06,05/01/2008,04/19/2007,05/10/2006 ,03/15/2005 Novel [id number], preservative-free 05/22/2009 Pneumococcal Polysaccharide PPSV23 07/11/2013, TD [...] Description 07/16/2025 10:45 AM EST Office Visit [facility] [address] [place] [address] Name, MD Eddie [address] [place] [address] 08/01/2025 9:30 AM EST Telemedicine [address] [address] 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, RN Health Maintenance Due Date [...] Additional history exists Eye Exam 05/16/2025 05/16/2023, 05/02/2012, 10/21/2010, Additional history exists SDOH Screening 10/29/2025 [...] on patient's age to complete this topic Goals Goal Patient Goal Type Associated Problems [...] has chronic kidney disease No Diana Babb Procedures Procedure Name Priority Date/Time Associated Diagnosis Comments FERRITIN Routine 05/07/2025 10:35 AM EST CBC WITH AUTO DIFFERENTIAL Routine 05/07/2025 10:35 AM EST POCT GLYCATED HEMOGLOBIN, TOTAL Routine 10/29/2024 2:29 PM EDT Controlled type 2 diabetes mellitus with complication, without long-term current use of insulin ([facility]) LIPID PANEL, STANDARD Routine 01/16/2024 9:40 AM EDT Controlled type 2 diabetes mellitus with complication, without long-term current use of insulin ([facility]) ALBUMIN, RANDOM URINE W/CREATININE Routine 01/16/2024 9:35 AM EDT Primary hypertension HM DIABETES EYE EXAM Routine 05/16/2023 HEPATITIS PANEL, GENERAL Routine 11/18/2022 2:07 PM EDT Diarrhea, unspecified type from Last 3 Months or Most Recently Relevant to Health Maintenance Results * (ABNORMAL) CBC auto differential (05/07/2025 10:35 AM EST) White Blood Count 9.6 4.8 - 10.8 X10*3/uL [facility] Red Blood Count 4.40 4.20 - 5.50 X10*6/uL [facility] Hemoglobin 13.1 12.0 - 16.0 g/dl [facility] Hematocrit 39.5 37.0 - 47.0 % [facility] Mean Corpuscular Volume 89.8 80.0 - 98.0 fL [facility] Mean Corpuscular Hemoglobin 29.8 27.0 - 33.0 pg [facility] Mean Corpuscular HGB Conc 33.2 31.0 - 35.0 g/dl [facility] Red Cell Distribution Width 14.4 11.0 - 16.0 % [facility] Platelet Count 309 160 - 400 X10*3/uL [facility] Mean Platelet Volume 8.7(L) 9.4 - 12.3 fL [facility] Neutrophils Percent Auto 66.4 45 - 73 % [facility] Imm Gran Pct Auto 0.3 0.0 - 0.4 % [facility] Lymphocytes Percent Auto 21.4 20 - 40 % [facility] Monocytes Percent Auto 9.3 2 - 11 % [facility] Eosinophils Percent Auto 2.0 0 - 4 % [facility] Basophils Percent Auto 0.6 0 - 2 % [facility] NRBC Pct Auto 0.0 0.0 - 0.2 /100WBC [facility] Neutrophils Absolute Auto 6.4 2.0 - 8.3 x10*3/uL [facility] Imm Gran Abs Auto 0.03 0.00 - 0.03 X10*3/uL [facility] Lymphocytes Absolute Auto 2.1 1.2 - 4.9 X10*3/uL [facility] Monocytes Absolute Auto 0.9 0.1 - 1.2 X10*3/uL [facility] Eosinophils Absolute Auto 0.2 0.0 - 0.4 X10*3/uL [facility] Basophils Absolute Auto 0.1 0.0 - 0.2 X10*3/uL [facility] NRBC Abs Auto 0.000 0.0 - 0.012 X10*3/uL [facility] 05/07/2025 10:3 5 AM EST 05/07/2025 10:35 AM EST us Generic External Data Provider LAB BLOOD ORDERAB LES Final Result [facility] [address] [place] [address] [phone] * Ferritin (05/07/2025 10:35 AM EST) Ferritin 49 10 - 250 ng/mL [facility] 05/07/2025 10:3 5 AM EST 05/07/2025 10:35 AM EST us Generic External Data Provider LAB BLOOD ORDERAB LES Final Result [facility] [address] [place] [phone] * POCT HGB A1C (10/29/2024 2:29 PM EDT) Hemoglobin A1C 5.4 4.0 - 6.0 % QC Media Lot # [id number] Lot# Expiration Date Blood 10/29/2024 2:29 PM EDT Eddie Marshall MD POINT OF CARE TEST ENTER/EDIT OR DERABLES Final Result * (ABNORMAL) Lipid Panel, Standard (01/16/2024 9:40 AM EDT) Triglycerides 199(H) <150 mg/dL [facility] Comment:Desirable Triglyceri de: less than 150 mg/dLBorderline High Triglyceride 150-199 mg/dLHigh Triglyceride: 200-499 mg/dLVery High Triglyceride: greater than or equal to 5OO mg/dL Cholesterol 150 <200 mg/dL [facility] Comment:Desirable Cholestero l: less than 200 mg/dLBorderline High Cholesterol: 200-239 mg/dLHigh Cholesterol: greater than 239 mg/dL LDL Cholesterol Calculated 63 <100 mg/dL [facility] Comment:Desirable LDL: less than 100 mg/dLNear Optimal/Above Optimal LDL: 110- 129 mg/dLBorderline High LDL: 130-159 mg/dLHigh LDL: 160-189 mg/dLVery High LDL: greater than or equal to 190 mg/dL HDL Cholesterol 48 >40 mg/dL [facility] Comment:Desirable HDL: great er than 40 mg/dL Note: This HDL assay may give artificially low results in patients with liver disease. Blood Venous blood specimen / Unknown 01/16/2024 9:40 AM EDT 01/16/2024 11:20 AM EDT us Eddie Marshall MD LAB BLOOD ORDERABLES Final Resul t Performing Organization Address [facility] de Phone Number [facility] [address] [place] [phone] * Albumin, Random Urine W/Creatinine (01/16/2024 9:35 AM EDT) Creatinine, Urine 27.62 mg/dL [facility] Microalbumin Urine <5.0 mg/L [facility] Microalbum Creatinine Ratio Ur TNP <30 ug/mg cr [facility] Comment:Unable to calculate albumin/creatinine ratio due to lowmicroalbumin or creatinine result. Urine (Urine, Random) 01/16/2024 9:35 AM EDT 01/16/2024 11:12 AM EDT us Eddie Marshall MD LAB URINE ORDERABLES Final Resul t Performing Organization Address [facility] de Phone Number [facility] [address] [place] [phone] * Diabetes Eye Exam (05/16/2023) Eye Exam Normal Normal Result [facility] us Eddie Marshall MD HEALTH MAINTENANCE Final Result * (ABNORMAL) Hepatitis Panel, General (11/18/2022 2:07 PM EDT) Hepatitis A Antibody Total REACTIVE( A) NON-REACT NAHID [employer] [place] [employer] Comment: For additional information, please refer to http://education.[employer]/faq/XRP825 (This link is being provided for informational/ educational purposes only.) Hepatitis B Surface Antibody QL NON-REACT NAHID NON-REACT NAHID [employer] [facility] Hepatitis B Surface Ag NON-REACT NAHID NON-REACT NAHID [employer] [place] [facility] Hepatitis B Core Antibody Total NON-REACT NAHID NON-REACT NAHID [employer] [place] [employer] Hepatitis C Antibody NON-REACT NAHID NON-REACT NAHID [employer] [place] [employer] Index 0.07 <1.00 [employer] [place] [employer] Comment: HCV antibody was non-reactive. There is no laboratory evidence of HCV infection. In most cases, no further action is required. However, if recent HCV exposure is suspected, a test for HCV RNA (test code 14354) is suggested. For additional information please refer to http://education.[employer]/faq/PXF52b3 (This link is being provided for informational/ educational purposes only.) 11/18/2022 2:07 PM EDT 11/18/2022 2:09 PM EDT Narrative [facility] - 11/19/2022 6:51 AM EDT COLLECTION KIT GIVEN TO PATIENT. PATIENT ADVISED TO RETURN. Mckenzie Pillai [facility] LAB BLOOD ORDERABLES Final Res ult [facility] [address], [place] [address] [employer] [place] [facility] [address] [place] [phone] from Last 3 Months or Most Recently Relevant to Health Maintenance Additional Health Concerns Active Problems Noted Date Diagnosed Date Help patients manage their type 2 diabetes 05/22 Weekly blood pressure task 05/22/2025 Help patients manage their type 2 diabetes 05/22 Patient has chronic kidney disease 05/22/2025 Weekly blood pressure task 05/22/2025 Patient has chronic kidney disease 05/22/2025 Insurance [facility] [employer] [id number] Care Teams Multi Site Leasing Consultant Relationship Specialty Start Date End Date Name, MD Eddie [address] [place] [phone] PCP - General Family Medicine 09/16/15 [facility] 07/01/24
--- OUTSIDE RECORDS SUMMARY | 2025-06-11 08:19 | XMS_ITS | Encounter Summary ---
Author Organization [employer] Address [address] [place] [address] 7 [place] [address] Care Team Providers Care Water Main Pipe Layer Name Role Phone Name, Eddie GILMORE Primary Care Provider [phone] Reason for Visit * Reason Onset Date Comments Active Med List 06/28/2023 Encounter Details Date Type Department Care Team ([facility] st Contact Info) Description 06/28/2023 Telephone [facility] [address] [place], [place] [phone] Name, MD Eddie [address] [place] [address] Active Med List Social History Tobacco Use [...] Be requesting a updated active medication list headline writer did attempt to transfer to Medical records so that she can obtain this information but they kept transferring back to the call center. [facility] [address], [place], [place] [phone] documented in this encounter Plan of Treatment Upcoming Encounters Date Type Department Care Team (Late st Contact Info) Description 07/16/2025 10:45 AM EST Office Visit [facility] [address] [place] [phone] Name, MD Eddie [address] [place] [address] 08/01/2025 9:30 AM EST Telemedicine [facility] [address] [place] [phone] 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, JULY documented as of this encounter Visit Diagnoses Not on filedocumented in this encounter Additional Health Concerns Assessment Noted Time PHQ-9 Depression Total Score: 10 023 1:16 PM EDT documented as of this encounter Care Teams Water Main Pipe Layer Relationship Specialty Start Date End Date Name, MD Eddie [address] [place] [address] PCP - General Family Medicine 09/16/15 [place] [facility] 07/01/24 documented as of this encounter
--- OUTSIDE RECORDS SUMMARY | 2025-06-11 08:19 | XMS_ITS | Data Portability ---
Author Organization [place] - [facility], Allergy Address [address] [address] Care Team Providers Care Special Education Teaching Assistant Name Role Phone NAME, DELIA Primary Care Provider [phone] Assessment Encounter Date Assessment Date Assessment LastModified [...] Organization Details Recorded Time Essential hypertens ion 85996185 Active 2014 Essential (primary) hypertensi on; Note: Date Diagnosed: 05/07/2015 9:43 AM (I10) Not Available [facility] 4 02:37:47 Bleeding from nose 710112772 Active 2014 Epistaxis; Note: Date Diagnosed: 05/07/2015 9:43 AM (R04.0) Not Available [facility] 4 02:37:50 Anterior epistaxis 750868069 Active 2024 YANIV GARCIA MD [address] [place] [address], [phone] , [facility] 5 12:32:29 Problem Notes None recorded. Procedures Surgical History Date Name Laterality Status Provider Name and Address Organization Details Recorded Time 5 Epistaxis Simple Nasal Cautery Right completed YANIV GARCIA MD [address] [place] [address], [phone], [facility] 08/11/2024 12:31:38 Imaging Results None recorded. Procedure Notes None recorded. Medical Equipment None Reported. Allergies Allergen ID Allergen Name Allergen Category Reaction Reaction Severity Criticality Documentation Date Start Date Code Code System Note Provider Name and Address Organization Details Recorded Time 770294 scallop allergeni c extract food Not available Not available Not available 10/11/2024 49032 6 RxNorm Rosa jerry [place] - [facility] 5 15:45:20 23633 atorvasta tin medicatio n other Not available Not available 10/31/2023 96816 RxNorm Rosa jerry [place] - [facility] 5 15:45:20 Medications Name Sig Start [...] 24 hr 08/09 completed Medicati on ID: [id number] D uration Value: 90 Brand Name: oxybutyn in chloride Send Method: E-Prescr ibed Sub s Allowed: subs OK Speci al Instruct ion: TAKE 1 TABLET BY MOUTH EVERY DAY Medi cationGe nericNam e: oxybutyn in chloride Not Available Not Available Not Available Patanol 0.1 % eye drops 08/09 completed Medicati on ID: [id number] B rand Name: Patanol Send Method: E-Prescr [...] layed release 08/09 completed Medicati on ID: [id number] B rand Name: aspirin Send Method: E-Prescr ibed Sub s Allowed: subs OK Medic ationGen ericName : aspirin Not Available Not Available Not Available tramadol 50 mg tablet 10/11 completed Medicati on ID: [id number] D uration Value: 28 Brand Name: tramadol Send Method: E-Prescr ibed Sub s Allowed: subs OK Speci al Instruct ion: TAKE 1 TABLET BY MOUTH EVERY 8 HOURS NEEDED FOR PAIN Med icationG enericNa me: tramadol Not Available Not Available Not Available nortripty line 25 mg capsule 08/09 completed Medicati on ID: [id number] D uration Value: 90 Brand Name: nortript yline Se nd Method: E-Prescr ibed Sub s Allowed: subs OK Speci al Instruct ion: TAKE 3 CAPSULES BY MOUTH AT BEDTIME Medicati onGeneri cName: nortript yline Not Available Not Available Not Available levothyro xine 100 mcg tablet 08/09 completed Medicati on ID: [id number] D uration Value: 90 Brand Name: levothyr [...] elayed release 10/11 completed Medicati on ID: [id number] D uration Value: 90 Brand Name: omeprazo [...] spray,tawny penon 10/11 completed Medicati on ID: [id number] D uration Value: 30 Brand Name: fluticas one Send Method: E-Prescr ibed Sub s Allowed: subs OK Speci al Instruct ion: SPRAY 2 SPRAYS INTO EACH NOSTRIL DAILY Me dication GenericN delmi: fluticas one Not Available Not Available Not Available loratadin e 10 mg tablet 08/09 completed Medicati on ID: [id number] D uration Value: 30 Brand Name: loratadi [...] 500 mg tablet active Medicati on ID: [id number] B rand Name: Tylenol Extra Strength Send [...] Updated DateTime 09/06/2024 157.48 cm 25.4 kg/m2 35273.34 g KELLY SKELTON [place] - [facility] 09/06/2024 13:28:14 Date Recorded Body height Body mass index (BMI) Body weight Provider Name and Address Organization Details Last Updated DateTime 10/11/2024 157.48 cm 25.4 kg/m2 96136.[address] [facility] 10/11/2024 15:45:16 Date Recorded Body height Body mass index (BMI) Body weight Provider Name and Address Organization Details Last Updated DateTime 12/25/2024 157.48 cm 25.4 kg/m2 96699.[address] [facility] 12/25/2024 11:45:17 Social History None recorded. [...] High Cholesterol Y GERD/Reflux Y Heart Attack (IN) Y Headaches Y Fibromyalgia Y Hypertension Y Gynecological HistoryNo gynecological history recorded. Obstetrics History GPAL:G 0 P 0 0 0 0 Past Encounters Encounter ID Performer Location Encounter Start Date Encounter Closed Date Diagnosis/Indication Diagnosis SNOMED-CT Code Diagnosis ICD10 Code Diagnosis IMO Codes Diagnosis Note [id number] YANIV GARCIA MD [facility] [address] [address] 08/09/2024 09:39:15 08/09/2024 11:07:17 Anterior epistaxis 997443369 R04.0 78-year-ol d female with a history [...] for cautery on the left. Essential hypertension 45077385 I10 Long-term current use of antiplatelet drug 0537359819 18220 Z79.02 [id number] HUONG WILSON PA-C [facility] [place] [address] [place] [address] 09/06/2024 13:16:33 09/06/2024 13:54:17 Anterior epistaxis 647516159 R04.0 Bleeding from nose 61159 6005 R04.0 Essential hypertension 66051741 I10 [id number] JOEY ROY PA-C [facility] [place] [address] [place] [address] 10/11/2024 15:10:24 10/11/2024 16:03:50 Anterior epistaxis 264544218 R04.0 [id number] HUONG WILSON PA-C [facility] [place] [address] [place] [address] 12/25/2024 10:52:40 12/25/2024 12:15:37 Anterior epistaxis 854787339 R04.0 Long-term current use of drug therapy 103519368 Z79.02 745001 Health Concerns Section Related Observation LastModified by Organization Detai ls LastModified Time None Recorded Concern Status LastModified by Organization Details LastModified Time None Recorded Advance Directives Directive None Recorded Payers Insurance Date Sequence Insurance Name Policy Number Policy Zapata Covered Member ID Zapata Member ID Guarantor Name 11/19/2024 1 [place] [facility] Celeste Abad [id number] Celeste Abad 11/19/[address] [facility] - DUAL ELIGIBLE - [facility] (MEDICARE REPLACEMENT/ ADVANTAGE - HMO) Celeste Abad [id number] Celeste Abad 12/25/2024 1 [facility] (MEDICAID HMO) Celeste Abad [id number] Celeste Abad 11/19/2024 1 [facility] (MEDICAID HMO) Ceelste Abad [id number] Celeste Jenniffer Notes Date Note Type Note Provider Name and Address Organization Details Recorded Time 08/09/2024 text/html [facility] 78 yo F with trouble with nose bleeds in the past, most recent 5-6 years ago and had nosebleed, sneezed through the mouth and nose, packed with gauze went to [facility], no treatmentbleeding from both sides went back to the ED after 5 daysnow anemia, no need for transfusion a few since but able to stop them YANIV GARCIA MD [address] [facility],[place] [address], [place], [address], [facility] [place] 08/11/2024 12:36:32 09/06/2024 text/html [facility] 78yo female with hypertension on clopidogrel presents for reevaluation of right recurrent nosebleeds. Right septum cauterized 08/09/[address] Garcia. Patient reports persistent recurrent right-sided nasal bleeding every couple days. Most recent episode 3 days ago, managed quickly with nasal cease. She is in the process of scheduling iron transfusions through [facility]. She was recently diagnosed with emphysema. She continues to touch the nose frequently. YANIV GARCIA MD 100 [facility] [place],[facility] [address], [place], [address], [facility] - [facility] 09/06/2024 17:25:55 10/11/2024 text/html [facility] 78 year old female presents for evaluation of the nose. She reports epistaxis up to several times per week. Always from the right. Can be very high volume. Can persist for hours. Had nasal pack placed at [facility] 09/26. For prevention, she applies saline gel with a Q-tip multiple times per day. When she bleeds she packs the nose with hemostat. AURORA SHAH MD [address], [place], [address], [facility] [place] 10/11/2024 16:14:56 12/25/2024 text/html [facility] 79-year-old female with extensive cardiac history on clopidogrel presents for reevaluation of right sided epistaxis. Fortunately, no recurrence of nasal bleeding in the past 3 months. She continues to use daily intranasal saline spray and gel as preventative measures. She underwent iron blood transfusions at [facility] for anemia. AURORA SHAH MD [address] [place] [address], [place], [address], [facility] - [facility] 12/25/2024 12:44:03 OBGyn Episode No OBEpisode recorded.
--- OUTSIDE RECORDS SUMMARY | 2025-06-11 08:19 | XMS_ITS | Encounter Summary ---
Author Organization [employer] Address [address] [place] [address] 7 [place] [address] Care Team Providers Care Poultry Culler Name Role Phone Name, Eddie GILMORE Primary Care Provider [phone] Reason for Visit * Reason Comments Med Refill Encounter Details Date Type Department Care Team ([facility] st Contact Info) Description 06/18/2023 Refill [facility] [address] [place], [place] [phone] Name, MD Eddie [address] [place] [address] Chronic pain syndrome Social History Tobacco Use [...] Description 07/16/2025 10:45 AM EST Office Visit [facility] [address] [place] [address] Name, MD Eddie [address] [place] [address] 08/01/2025 9:30 AM EST Telemedicine [facility] [address] [place] [address] 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, JULY documented as of this encounter Visit Diagnoses Diagnosis Chronic pain syndrome documented in this encounter Additional Health Concerns Assessment Noted Time PHQ-9 Depression Total Score: 10 023 1:16 PM EDT documented as of this encounter Care Teams Poultry Culler Relationship Specialty Start Date End Date Eddie Marshall MD [address] [place] [address] PCP - General Family Medicine 09/16/15 [facility] 07/01/24 documented as of this encounter
--- OUTSIDE RECORDS SUMMARY | 2025-06-11 08:19 | XMS_ITS | Encounter Summary ---
Author Organization [employer] Address [address] [place] [address] 7 [place] [address] Care Team Providers Care Clerk Travel Reservations Name Role Phone Name, Eddie GILMORE Primary Care Provider [phone] Reason for Visit * Reason Comments Med Refill Encounter Details Date Type Department Care Team (Late Contact Info) Description 12/01/[address] [facility] [address] [place], [place] [phone] Name, MD Eddie [address] [place] [address] Controlled type 2 diabetes mellitus with complication, without long-term current use of insulin ([facility]) Social History Tobacco Use Types [...] Description 07/16/2025 10:45 AM EST Office Visit [address] [address] Name, [place] [address] 08/01/2025 9:30 AM EST Telemedicine [address] [address] 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 RN documented as of this encounter Visit Diagnoses Diagnosis Controlled type 2 diabetes mellitus with complication, without long-term current use of insulin (HCC) documented in this encounter Additional Health Concerns Assessment Noted Time PHQ-9 Depression Total Score: 10 023 1:16 PM EDT documented as of this encounter Care Teams Clerk Travel Reservations Relationship Specialty Start Date End Date Name, MD Eddie [facility] [place] [address] PCP - General Family Medicine 09/16/15 Jerica BURGOSA 07/01/24 documented as of this encounter
--- OUTSIDE RECORDS SUMMARY | 2025-06-11 08:20 | XMS_ITS | Encounter Summary ---
Author Organization [employer] Address [address] [place] [address] 7 [place] [address] Care Team Providers Care Whiskey Filterer Name Role Phone Name, Eddie GILMORE Primary Care Provider [phone] Reason for Visit * Reason Onset Date Comments Referral 02/02/2023 Back dated refer ral Encounter Details Date Type Department Care Team ([facility] st Contact Info) Description 02/02/2023 Telephone [facility] [address] [place], [place] [phone] Name, MD Eddie [address] [place] [address] Referral (Back dated referral ) Social History [...] 1:40 PM EDT Tc from Kasie at [facility] requesting status on message below regarding referral. Fax number [phone]. Any questions please call [phone] * Telephone Encounter - Amber Roger RN - 02/03/2023 10:34 AM EDT Please review message below regarding backdated referral for these dates * Telephone Encounter - Laure Mcgill - 02/02/2023 2:07 PM EDT Tc from Kasie at [facility] calling in regards to referral needing to be back dated. Patient was seen at the office on 01/03/23 and 01/11/23. Fax number [phone]. Any questions please call [phone]. documented in this encounter Plan of Treatment Upcoming Encounters Date Type Department Care Team (Late st Contact Info) Description 07/16/2025 10:45 AM EST Office Visit [address] [address] Name, MD Eddie [address] [place] [address] 08/01/2025 9:30 AM EST Telemedicine [address] [address] 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, JULY documented as of this encounter Visit Diagnoses Not on filedocumented in this encounter Additional Health Concerns Assessment Noted Time PHQ-9 Depression Total Score: 10 023 1:16 PM EDT documented as of this encounter Care Teams Whiskey Filterer Relationship Specialty Start Date End Date Name, MD Eddie [address] [place] [address] PCP - General Family Medicine 09/16/15 Jerica SEN 07/01/24 documented as of this encounter
--- OUTSIDE RECORDS SUMMARY | 2025-06-11 08:20 | XMS_ITS | Encounter Summary ---
Author Organization [employer] Address [address] [place] [address] 7 [place] [address] Care Team Providers Care Organic Chemist Name Role Phone Name, Eddie GILMORE Primary Care Provider [phone] Reason for Visit * Reason Comments Med Refill Encounter Details Date Type Department Care Team (Late Contact Info) Description 01/04/2023 Refill [facility] MED[facility]INE [address] [place] [address] Name, MD Eddie [address] [place] [address] Gastroesophageal reflux disease, unspecified whether esophagitis present [...] Description 07/16/2025 10:45 AM EST Office Visit [facility] [address] [place] [address] Name, [place] [address] 08/01/2025 9:30 AM EST Telemedicine [facility]INE [address] [place] [address] 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 RN documented as of this encounter Visit Diagnoses Diagnosis Gastroesophageal reflux disease, unspecified whether esophagitis present documented in this encounter Additional Health Concerns Assessment Noted Time PHQ-9 Depression Total Score: 10 023 1:16 PM EDT documented as of this encounter Care Teams Organic Chemist Relationship Specialty Start Date End [place], [place] [address] PCP - General Family Medicine 09/16/15 Marshall A 07/01/24 documented as of this encounter
--- NOTE | 2025-06-11 08:56 | A.OFFVIS_ITS ---
Intake Visit Reasons: follow up Allergies Latex, Natural Rubber Allergy (Intermediate, Verified 04/21/25 11:38) Rash scallops Allergy (Unknown, Verified 04/21/25 11:38) Unknown HPI Comments Details: 78 y/o woman with HTN, CAD s/p stenting, diabetes, migraine and multiple bilateral embolic looking cerebral infarctions. She was initially seen in 2023 when she was seeing Dr. Mai and apparently he stopped taking her insurance bringing her here. Symptoms included confusion or loss of time. One time she was sent to hospital from a grocery store when she was noted to be having a seizure. She had no recollection of those symptoms. The patient is a 79 year old female presenting for follow-up of her seizure disorder. She has a history of seizures, with a reported event in March of last year. One past episode occurred in a grocery store, which she has no recollection of, and it resulted in hospitalization and was characterized by amnesia so severe that she did not remember having children. Her seizure symptoms have previously included confusion and loss of time. The patient's medical history is also significant for three prior heart attacks and strokes. She takes clopidogrel and an unspecified anti-seizure medication, which she expressed a desire to discontinue. She primarily uses a wheelchair for mobility due to concerns about falling. [facility] Medical History Paraesophageal hernia Osteoporosis Lower GI bleed Rectal bleed Anemia Stable angina Essential hypertension CVA (cerebral vascular accident) CAD (coronary artery disease) Surgical History Status post cardiac catheterization History of cardiac cath History of adenoidectomy Hx of tonsillectomy Hx of hernia repair History of section History of cholecystectomy History of appendectomy Family History Mother Cancer Father Heart attack Social History Household Members: Children Housing: House Do you presently have visiting nurse or other home services: Yes Alcohol intake: never Patient Tobacco Use Status: Former Tobacco user Years Smoked: 30 +/- e-Cigarette/Vaping Use: Never Used Second Hand Smoke Exposure: No Substance Use Type: Marijuana service: No Current occupational status: retired Current occupation: right hand dominant Review of Systems Narrative - Neurological: Reports episodes of confusion and loss of time. - She denies any awareness of having seizures. Physical Exam Neuro Other: Mental Status: Alert and oriented to person, place, and time. Normal attention. Normal spontaneous speech, fluency, and comprehension. Cranial Nerves: CN II: Visual molina full to confrontation, visual acuity intact. CN III, IV, : Pupils equal, round, reactive to light and accommodation. Extraocular movements are normal. CN V: Facial sensation is normal. CN VII: Facial movements symmetrical. CN VIII: Hearing intact to bedside conversation is normal. CN IX, X: Palate elevates symmetrically. CN XI: Shoulder shrug and head turn symmetrical. CN XII: Tongue midline without atrophy or fasciculations. She is in a wheel chair. Extrapyramidal: Full facial expressions and blinking. No rigidity. Movements are appropriate with no tremor or abnormality. Speech: Normal; no dysarthria or tremor. Assessment & Plan Assessment & Plan (1) Seizure disorder: Comment: MRI brain WO at [facility] [place] in October 2016: Right MCA area R insular/frontal infarct, multiple b/l ant and post circ chronic infarcts CTA brain and neck at [facility] [place] in 2017: R M2 irreg flow, acute right frontal infarct (reported) [place] brain WO [place] [facility] [place] Feb 2017: multiple b/l chronic somewhat embolic looking infarcts and mild to mod atrophy PSG at [facility] in 2016: mild snoring, no DC, PLMS MRI brain WO at [facility] [place] in 2016: two small embolic looking left cerebellar acute infarcts and multiple b/l small chronic infarcts MRA brain at [facility] in 2016: limited, 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 Code(s): G40.909 - Epilepsy, unspecified, not intractable, without status epilepticus Category: Medical (2) Multiple cerebral infarctions: Code(s): I63.9 - Cerebral infarction, unspecified Category: Medical Plan Impression: a: Seizure disorder, probably complex partial to generalized type from strokes b: Multiple cerebral infarctions with h/o multiple MIs and intracranial atherosclerotic disease Rec: a: Continue levetiracetam 750mg bid b: Continue clopidogrel and BP control I discussed with the patient that her risk of seizures is permanent and will not resolve. I strongly advised against stopping her seizure medication, explaining that doing so would create a very high chance of having another seizure, which could result in a fall or other serious injury. I informed her that continuing the medication is a permanent requirement for her safety. I confirmed that I will send refills for her medication to her pharmacy. We agreed to a follow-up appointment in one year. Medications: Refilled levetiracetam (Keppra) 750 mg PO BID 180 tabs 1RF Coding Level of Care Code Est Pt Level 4 (04321) Diagnoses Seizure disorder G40.909 Multiple cerebral infarctions I63.9
== END 2025-06-11 09:11 | disposition home or self-care (01) ==
LOC: HO.HSM 08:15
PROVIDERS: PCP Internal Medicine Geriatric Medicine; Visit Provider Psychiatry & Neurology Neurology
DX: G40.909 Epilepsy, unspecified, not intractable, without status epilepticus (principal); I63.9 Cerebral infarction, unspecified
CPT/HCPCS: 99214

== ENCOUNTER → 2025-06-11 08:15 | Outpatient (BNVA) | payer MEDICARE, SELFPAY | PROVIDERS: PCP Internal Medicine Geriatric Medicine; Visit Provider Psychiatry & Neurology Neurology | DX: G40.909 Epilepsy, unspecified, not intractable, without status epilepticus (principal); I63.9 Cerebral infarction, unspecified; Z79.899 Other long term (current) drug therapy; Z87.891 Personal history of nicotine dependence | CPT/HCPCS: 99212 ==